=== PATIENT | female | born 1965 | race Caucasian/White ===

== ENCOUNTER 2017-09-16 03:16 | Emergency (ER) | payer MEDICARE, MEDICAID, SELFPAY ==
[2017-09-16 03:19] VITALS: BP 162/104; PULSE 81; RESP 18; TEMP 36.8; O2SAT 98; BMI 47.1
--- NOTE | 2017-09-16 03:32 | ED.VISSUMM ---
- ER Visit Summary Date of Service: 09/16/17 Chief Complaint: Right jaw pain status post tooth extraction History of Present Illness: The patient is a 52 F who presents because of pain status post extraction of the right lower third molar. The procedure was performed on September 15. Patient reports the prescription was not electronically transmitted to the pharmacy. She denies fever, chills night sweats. She complains of pain and difficulty swallowing because of pain. There is been no drooling. There is no facial swelling. No documented fever and she denies chills. She is on no immunosuppressive meds. She has no history of rheumatic fever, murmur, or SBE. Physical Examination: Vital signs remarkable for an elevated blood pressure 162/104. She appears uncomfortable. Extraction site looks normal. There is no facial swelling. Is no trismus. There is no sub-mandibular or anterior cervical lymphadenopathy. Trach is midline. There is no stridor. Heart is regular without murmur, gallop or rub. Lungs are clear to auscultation. There is no evidence of facial cellulitis. Test Results: None Emergency Department Course and Treatment: Patient received 1 oxycodone tablet to diminish her pain and she will need to contact her dentist for any additional pain medication Treatment Plan: Discharge to home and follow-up with dentist regarding pain medication Disposition: Discharged to home Impression: Pain status post right lower third molar extraction without evidence of infection This note was generated with [employer] dictation software. It may contain incorrect words, spelling, and punctuation that were not noted in review of the chart prior to signing ED Disposition - Plan for ED Patient: Disposition: Home or Assisted Living Chief Complaint: Dental Instructions: ED Post Op Pain Referrals: Care Physician,No Primary [Primary Care Provider] - Additional Instructions: Contact your dentist later this morning for any additional pain medicine.
--- NOTE | 2017-09-16 03:36 | ED.DCSUM_ITS ---
- ER Visit Summary Date of Service: 09/16/17 Chief Complaint: Right jaw pain status post tooth extraction History of Present Illness: The patient is a 52 F who presents because of pain status post extraction of the right lower third molar. The procedure was performed on September 15. Patient reports the prescription was not electronically transmitted to the pharmacy. She denies fever, chills night sweats. She complains of pain and difficulty swallowing because of pain. There is been no drooling. There is no facial swelling. No documented fever and she denies chills. She is on no immunosuppressive meds. She has no history of rheumatic fever, murmur, or SBE. Physical Examination: Vital signs remarkable for an elevated blood pressure 162/ 104. She appears uncomfortable. Extraction site looks normal. There is no facial swelling. Is no trismus. There is no sub-mandibular or anterior cervical lymphadenopathy. Trach is midline. There is no stridor. Heart is regular without murmur, gallop or rub. Lungs are clear to auscultation. There is no evidence of facial cellulitis. Test Results: None Emergency Department Course and Treatment: Patient received 1 oxycodone tablet to diminish her pain and she will need to contact her dentist for any additional pain medication Treatment Plan: Discharge to home and follow-up with dentist regarding pain medication Disposition: Discharged to home Impression: Pain status post right lower third molar extraction without evidence of infection This note was generated with [employer] dictation software. It may contain incorrect words, spelling, and punctuation that were not noted in review of the chart prior to signing ED Disposition - Plan for ED Patient: Disposition: Home or Assisted Living Chief Complaint: Dental Instructions: ED Post Op Pain Referrals: Care Physician,No Primary [Primary Care Provider] - Additional Instructions: Contact your dentist later this morning for any additional pain medicine.
[2017-09-16] MEDS: oxyCODONE 5 MG Tablet 10 MG PO (03:45)
[2017-09-16 03:46] VITALS: RESP 18
== END 2017-09-16 03:47 | disposition home or self-care (01) ==
LOC: ED 03:42
PROVIDERS: Emergency Provider Emergency Medicine
DX: R68.84 Jaw pain (principal); G89.18 Other acute postprocedural pain; Z98.818 Other dental procedure status; K21.9 Gastro-esophageal reflux disease without esophagitis; F32.9 Major depressive disorder, single episode, unspecified; F41.9 Anxiety disorder, unspecified; E66.9 Obesity, unspecified; Z68.42 Body mass index [BMI] 45.0-49.9, adult; Z79.899 Other long term (current) drug therapy
CPT/HCPCS: 99283

== ENCOUNTER 2017-10-03 14:42 | Emergency (ER) | payer MEDICARE, MEDICAID, SELFPAY ==
[2017-10-03 14:43] VITALS: BP 184/116; PULSE 94; RESP 22; TEMP 36.6; O2SAT 97; BMI 45.4
--- NOTE | 2017-10-03 14:58 | CT_ITS ---
STUDY: CT ABDOMEN AND PELVIS WITHOUT CONTRAST REASON FOR EXAM: Female, 52 years old. Certain onset right lower quadrant pain one hour prior to arrival. History stage III kidney disease. History of cholecystectomy, hysterectomy and gastric sleeve. RADIATION DOSAGE (If Supplied By Facility): CTDIvol = ( 27.69 ) mGy, DLP = ( 1501.17 ) mGycm TECHNIQUE: Transaxial images were obtained from the dome of the diaphragm to the symphysis pubis without oral contrast, and without intravenous contrast. Sagittal and coronal images were reconstructed. Individualized dose optimization techniques were used for this CT. COMPARISON: None. FINDINGS: 1 discrete linear opacity of the right lung base consistent with scarring or focal atelectasis. The visualized portions of the heart are within normal limits. Normal liver. There are surgical clips in the gallbladder fossa consistent with a prior cholecystectomy. Normal spleen. Normal pancreas. Normal bilateral adrenal glands. Moderate hydronephrosis of the right kidney and a dilated ureter to the level of a 5 x 3 mm stone of the distal ureter just above the right ureterovesicular junction. Substantial perinephric stranding. Negative for other renal or ureteral stones. Mild atrophy of the left kidney without hydronephrosis or stones. Moderate hiatal hernia. Postoperative changes consistent with gastric sleeve. Normal small intestine. Diverticulosis without evidence of acute diverticulitis. There is non-visualization of the appendix. Normal abdominal aorta. 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 Normal retroperitoneum. Normal urinary bladder. There is absence of the uterus consistent with a prior hysterectomy. Negative for pelvic mass. Normal abdominal wall. There are diffuse degenerative changes of the visualized lumbar spine. CT/Abdomen/Pelvis without Cont IMPRESSION: Moderate hydronephrosis of the right kidney secondary to a 5 x 3 mm stone of the distal right ureter just above the right ureterovesicular junction. Substantial perinephric stranding. Negative for other renal or ureteral stones. Atrophy of the left kidney without renal or ureteral stones. Unremarkable nondistended urinary bladder. 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 Electronically Signed: Renita Mock MD at 16:37 EDT , Service support ,
[2017-10-03] MEDS: HYDROmorphone 0.5 MG/0.5 ML SYRINGE IV (15:02)
[2017-10-03] MEDS: Ondansetron 4 MG/2 ML Vial IV (15:03)
[2017-10-03] MEDS: 0.9% Normal Saline 1,000 ML 250 ML IV (15:03)
[2017-10-03] MEDS: Ketorolac 30 MG/ML Syringe IV (15:03)
[2017-10-03 15:07] VITALS: BP 172/93; PULSE 86; RESP 22; O2SAT 94
--- NOTE | 2017-10-03 15:08 | ED.VISSUMM ---
- ER Visit Summary Date of Service: 10/03/17 Chief Complaint: Abdominal pain History of Present Illness: The patient is a 52 F who states that 1 hour prior to arrival she began having discomfort in the right lower quadrant. She felt like she maybe she needed to have a bowel movement and went to the bathroom and did. However after the bowel movement the patient developed a severe stabbing pain that radiated to the right flank. She stated wax and wanes. She last ate at 1300 hrs. having steak and eggs. She states that she was feeling fine up until 1 hour prior to examination. She has a history of GERD and reports chronic kidney disease stage III. She has had prior cholecystectomy and a gastric sleeve. Physical Examination: Afebrile vital signs are stable Gen: Well-nourished well-developed obese Head: Normocephalic atraumatic Eyes: Perrl EOMI ENT: TMs clear no rhinorrhea moist mucous membranes Neck: Supple no lymphadenopathy no JVD nontender CVS: Regular rate rhythm no murmurs normal S1-S2 Respiratory: No distress clear to auscultation bilaterally chest nontender Abdomen: Soft mild tenderness without guarding or rebound nondistended normal bowel sounds no masses Back: Nontender Extremity: Nontender no edema Skin: Normal color no rash diaphoretic Neuro: alert orientated ?3 CN II-XII intact normal strength sensation reflexes gait cerebellar Psych: Normal affect normal mood Test Results: CBC shows a hemoglobin 11.5 platelets are low at 483. Creatinine 1.76. Urinalysis shows some contamination 25-50 white cells 10-25 red blood cells 5-10 epithelial cells X test is negative. CT of the abdomen pelvis demonstrated a significant amount of perinephric stranding hydrant moderate hydronephrosis and a 5x3 mm distal ureteral stone. Emergency Department Course and Treatment: IV was established. Patient received fluids Toradol Dilaudid and Zofran. Her pain is significantly improved. I spoke with to help arrange follow-up. Patient was advised she may return if her pain is not controlled. I will be writing for oxycodone Zofran and Flomax. Impression: 1. Right distal ureteral stone (5 x 3 mm stone) 2. Right hydronephrosis This note was generated with [employer] dictation software. It may contain incorrect words, spelling, and punctuation that were not noted in review of the chart prior to signing ED Disposition - Plan for ED Patient: Disposition: Home or Assisted Living Chief Complaint: Flank Pain Instructions: ED Stone Renal W Colic Prescriptions: Oxycodone [Oxyir] 5 - 10 mg PO Q6H PRN PRN 4 Days #25 tab PRN Reason: Pain Ondansetron [Zofran Odt] 4 mg PO Q8H PRN PRN #10 tab PRN Reason: Nausea Tamsulosin HCl [Flomax] 0.4 mg PO QHS #7 cap Referrals: Yesi Pina MD [STAFF PHYSICIAN] - (call on wednesday to arrange follow up)
[2017-10-03 15:32] LABS: Absolute Neutrophil Count 5.5 X10^3/uL (2.0-7.7); Basophil# 0.03 X10^3/uL; Basophil% 0.4 % (0-1); Eosinophil# 0.27 X10^3/uL; Eosinophils% 3.2 % (0-5); Hematocrit 37.3 % (37-47); Hemoglobin 11.5 g/dl (12.0-15.0); Lymphocyte % 22.9 % (19-41); Mean Corp Hgb Conc 30.8 g/gl (32-36); Mean Corpuscular Hgb 23.8 pg (27.0-32.0); Mean Corpuscular Volume 77.2 fL (81-99); Mean Platelet Vol. 9.5 fl (6.2-12.0); Monocyte# 0.58 X10^3/uL; Neutrophil # 5.52 X10^3/uL (2.7-7.7); Neutrophil % 66.4 % (47-70); Platelet Count 483 K/mm3 (150-450); RBC Distribution Width CV 17.2 % (11.6-14.6); RBC Distribution Width SD 48.7 fl (35.1-43.9); Red Blood Count 4.83 M/mm3 (4.2-5.4); White Blood Count 8.3 K/mm3 (4.4-11.0)
[2017-10-03 15:33] LABS: POSITIVE COUNT NO; POSITIVE DIFFERENTIAL NO; POSITIVE MORPHOLOGY NO
[2017-10-03 15:55] LABS: Anion Gap 10 (5-15); BUN 18 mg/dL (7-18); BUN/Creat Ratio 10.2 RATIO (10-20); Calcium,Total 9.6 mg/dL (8.5-10.1); Chloride 106 mmol/L (98-107); Creatinine, Serum 1.76 mg/dL (0.55-1.02); EST Glomerular Filtration Rate 32 mL/min (>60); Est Glom Filt Rate - Afr Amer 39 mL/min (>60); Estimated Creatinine Clearance 36.77 ml/min; Glucose 118 mg/dL (74-106); Potassium 3.4 mmol/L (3.5-5.1); Sodium Level 139 mmol/L (136-145)
[2017-10-03 15:58] LABS: Color, Urine Yellow (Yellow); Glucose, Dipstick Normal (Normal); Ketone-Dipstick Negative (Negative); Leukocyte Esterase-Dipstick 100 /ul (Negative); Nitrite-Dipstick Negative (Negative); Occult Blood-Urine 150 /ul (Negative); Protein-Dipstick 30 mg/dl (Negative); Specific Gravity, Urine 1.025 (1.002-1.030); Urine Bilirubin Dipstick Negative (Negative); Urine Clarity Clear (Clear); Urine Urobilinogen Normal (Normal)
[2017-10-03 16:00] VITALS: RESP 16
[2017-10-03 16:11] LABS: Red Blood Cells-Urine 10-25 SEEN /hpf (0-5); Squamous Epithelial Cells - UA 5-10 SEEN /hpf (5-10); White Blood Cells 25-50 SEEN /hpf (0-5)
[2017-10-03 16:12] LABS: Bacteria RARE /hpf (None Seen); Hyaline Cast 0-5 SEEN /lpf (0-5); Mucous, Urine RARE /hpf (<or=2+)
[2017-10-03 16:15] LABS: Pregnancy, Serum, hCG Quali. NEGATIVE Negative (0-9 Nonpreg)
[2017-10-03 17:28] VITALS: PULSE 79; RESP 16
[2017-10-03 17:58] VITALS: BP 141/89; PULSE 85; RESP 16; O2SAT 97
--- NOTE | 2017-10-03 17:59 | ED.RN ---
REVIEWED D/C INSTRUCTIONS, FOLLOW UP CARE, PRESCRIPTIONS, AND S/S THAT WOULD WARRANT A RETURN TO THE ED WITH PT. PT VERBALIZED AN UNDERSTANDING AND DENIES FURTHER QUESTIONS FOR THIS RN. PT SKIN P/W/D, RESP EVEN AND UNLABORED, PT A&O X 3, NO DISTRESS NOTED.
[2017-10-03 18:19] VITALS: RESP 16
[2017-10-03] MEDS: oxyCODONE 5 MG Tablet PO (18:22)
[2017-10-03] MEDS: Ondansetron ODT 4 MG Tablet PO (18:26)
== END 2017-10-03 18:26 | disposition home or self-care (01) ==
PROVIDERS: Emergency Provider Emergency Medicine; Family Provider Internal Medicine; PCP Internal Medicine
DX: N13.2 Hydronephrosis with renal and ureteral calculous obstruction (principal); N18.3 Chronic kidney disease, stage 3 (moderate); K21.9 Gastro-esophageal reflux disease without esophagitis; F32.9 Major depressive disorder, single episode, unspecified; F41.9 Anxiety disorder, unspecified; Z79.899 Other long term (current) drug therapy
CPT/HCPCS: 74176; 80048; 81001; 84703; 85025; 87086; 96361; 96365; 96375; 99283; J7030; A4216; J0696; J2405

== ENCOUNTER 2017-10-19 08:40 | Day surgery (SDC) | payer MEDICARE, MEDICAID, SELFPAY ==
[2017-10-19] VITALS (7 sets, daily range): BP systolic 103–125; BP diastolic 70–84; PULSE 76–93; RESP 14–96; TEMP 36.3–36.7; O2SAT 91–100; BMI 45.8
--- NOTE | 2017-10-19 09:40 | CALC_PTH ---
PATIENT: JACOBY ESCALERA LOC: [facility] – [place] U#:[id number] AGE/SX: 52/F ROOM: RE10/19/[address]: Dr. Yesi Pina MD : 1965 BED: DIS: 10/19/2017 SPEC #: [id number] RECD: 10/19/17 12:03 STATUS: DRISS KRISTEN #: [id number] MARINO: 10/19/17 09:[address]: Yesi Pina DEPT: SURGICAL PATHOLOGY RECD BY: Magdi Hatfield ENTERED: 10/19/17 12:12 SP TYPE: Calculi OTHR DR: Dr. Bret Salomon MD Tissues: CALCULI Procedures: Surgery Specimen Level I HEADER OPERATION: Cysto, ureteroscopy, retro, laser, stent PRE-OP DIAGNOSIS: Calculus of ureter TISSUE SUBMITTED: Renal calculus GROSS DIAGNOSIS Fragments of stone, clinically calculus of ureter submitted for analysis. SJ:jerrod 10/19/17 COMMENT The calculus is submitted in its entirety for chemical stone analysis. The results from this study will be reported separately. GROSS DESCRIPTION Received in fixative is one container labeled with the patient's name and designated renal calculi. The specimen consists of two fragments of cain stone each measuring 0.1 cm in greatest dimension. The entire specimen is submitted for stone analysis. / SJ:jerrod 10/19/17 CPT: 87314
--- NOTE | 2017-10-19 11:07 | PCM.DC.URO ---
Discharge Diet: No Restrictions Discharge Activity: Return to Normal Activity, May not drive while taking narcotic pain medications. Call your doctor if you observe: Fever of 101 or Higher, Inability to urinate, Inability to have a bowel movement, Shortness of breath, Chest pain, Calf discomfort, Uncontrolled pain Additional Dressing/Incision Instructions:: pull stent out using string on morning. Allergies/Adverse Reactions: Allergies Iodinated Contrast- Oral and IV Dye [DYEE] Allergy (Verified 10/12/17 10:03) Rash iron Adverse Reaction (Verified 10/12/17 10:03) Other ABD PAIN morphine Adverse Reaction (Verified 10/12/17 10:03) Rash Medications to take at Discharge Dextroamphetamine/Amphetamine [Adderall 20 mg Tablet] 20 mg PO DAILY 03/06/16 Venlafaxine XR [Effexor Xr] 75 mg PO DAILY 03/06/16 buPROPion XL [Wellbutrin Xl] 150 mg PO DAILY 03/06/16 buPROPion XL [Wellbutrin Xl] 300 mg PO DAILY 03/06/16 Cholecalciferol (Vitamin D3) [Vitamin D3] 2,000 unit PO DAILY 09/16/17 Cyanocobalamin [Vitamin B12] 1,000 mcg PO DAILY@0800 09/16/17 Omeprazole [Prilosec] 20 mg PO DAILY 09/16/17 Zolpidem Tartrate [Ambien] 5 mg PO QHS PRN PRN 10/03/17 Calcitriol [Rocaltrol] 0.5 mcg PO DAILY 10/12/17 Cetirizine HCl [Allergy Relief] 10 mg PO DAILY 10/12/17 Magnesium 250 mg PO DAILY 10/12/17 Spironolactone [Aldactone] 100 mg PO DAILY 10/12/17 Cephalexin [Keflex] 500 mg PO Q12 3 Days #6 cap 10/19/17 Oxycodone HCl/Acetaminophen [Percocet 5/325] 2 tab PO Q6H PRN PRN 2 Days #10 tab 10/19/17 The following prescriptions were given: Oxycodone HCl/Acetaminophen [Percocet 5/325] 2 tab PO Q6H PRN PRN 2 Days #10 tab PRN Reason: Pain Cephalexin [Keflex] 500 mg PO Q12 3 Days #6 cap Primary Care Physician: Bret Salomon MD [Primary Care Provider] - Test Results: Test results from this visit will be discussed in further detail at your follow-up appointment, if applicable. Please Follow Up With: eYsi Pina MD When: in 2-3 weeks, call for appt
--- NOTE | 2017-10-19 11:10 | PCM.IMDPSTOP ---
Immediate Post-Op Note Date of Procedure: 10/19/17 Primary Surgeon/Physician: Yesi Pina MD personal care attendant: Yesi Pina Pre-Operative Diagnosis: right ureteral stone Post-Operative Diagnosis: same Surgery/Procedure Performed:: cystoscopy, right ureteroscopy, laser lithotripsy, stone basket extraction, right ureteral stent insertion Description of Surgical Findings:: stone seen at the UO, lasered and removed. no complications. 6 x 24cm stent left with string. Estimated Blood Loss: 2cc Specimen's removed: stone fragment Type of Anesthesia:: General - Admit VTE Documentation VTE Present on Admission: Yes VTE Mechan Device Prophylaxis: SCD's VTE Pharm Prophylaxis ordered?: No Reason prophylaxis not ordered:: Treatment Not Indicated
--- NOTE | 2017-10-19 11:19 | PCM.OPRPT ---
Problem List (1) Ureteral calculus Status: Acute Report of Operation Date of Procedure: 10/19/17 Pre-Operative Diagnosis: right ureteral stone Post-Operative Diagnosis: same Surgery/Procedure Performed:: cystoscopy, right ureteroscopy, laser lithotripsy, stone basket extraction, right ureteral stent insertion Description of Surgical Findings:: stone seen at the UO, lasered and removed. no complications. 6 x 24cm stent left with string. spring production supervisor: Yesi Pina Type of Anesthesia:: General Special Medications: ancef 3 gm Specimen's removed: stone fragment Estimated Blood Loss (mL): 2cc Description of Procedure: The patient is a 52-year-old female who developed a right distal ureteral calculus was seen in the office for definitive treatment. After discussing all the risks benefits and alternatives she agreed to proceed with surgical intervention. The patient was taken to the operating room placed on the operating room table anesthesia monitored the head neck area IV access and vital signs throughout the case. Once anesthesia was a probably administered she was placed into dorsal lithotomy position was prepped and draped in usual sterile fashion. A cystourethroscopy was then performed revealing no evidence of tumor mass or bladder mucosal abnormality. The right ureteral orifice was clearly identified and intubated with a 0.035 Glidewire. Using the additional half of a 0.025 guidewire access was obtained to the distal ureteral orifice and the stone was clearly visible approximately 6 mm in size. It was then lasered using a holmium laser fiber into small fragments which were then stone basket retrieved and sent for analysis. Ureteroscopy continued to the proximal ureter were no further stone fragments were identified. At this time using the 0.035 Glidewire a 6 x 24 cm double-J stent was placed with curling achieved in the right renal pelvis and in the urinary bladder. The string was left intact and was secured to the right inner thigh using Steri-Strips. She was awakened and taken to recovery room in good condition. There were no complications during this procedure. Grafts/Implants Used: 6x24cm double J stent - Complications none - Admit VTE Documentation VTE Present on Admission: Yes VTE Mechan Device Prophylaxis: SCD's VTE Pharm Prophylaxis ordered?: No Reason prophylaxis not ordered:: Treatment Not Indicated
[2017-10-19] MEDS: Acetaminophen 325 MG Tablet PO (12:59)
[2017-10-19] MEDS: oxyCODONE 5 MG Tablet PO (12:59)
[2017-10-27 00:08] LABS: Ca Oxalate, Dihydrate 77 % (.); Ca Oxalate, Monohydrate 20 % (.)
[2017-10-27 11:34] LABS: Comment Note: (.)
== END 2017-10-19 13:24 | disposition home or self-care (01) ==
LOC: SDC 08:42 → AC 08:43
PROVIDERS: Family Provider Internal Medicine; PCP Internal Medicine; Visit Provider Urology
PROC: 0TJ98ZZ Inspection of Ureter, Via Natural or Artificial Opening Endoscopic (ICD-10-PCS; CPT 52352; principal; 2017-10-19 09:30)
DX: N13.2 Hydronephrosis with renal and ureteral calculous obstruction (principal); N18.3 Chronic kidney disease, stage 3 (moderate); K21.9 Gastro-esophageal reflux disease without esophagitis; Z98.84 Bariatric surgery status; Z79.899 Other long term (current) drug therapy
CPT/HCPCS: 52356; 76000; 82360; 88300; J7120; C1769; C2617; J2405

== ENCOUNTER 2018-02-22 21:21 | Emergency (ER) | payer MEDICARE, MEDICAID, SELFPAY ==
[2018-02-22 21:23] VITALS: BP 109/65; PULSE 101; RESP 16; TEMP 36.9; O2SAT 97; BMI 49.1
--- NOTE | 2018-02-22 22:55 | ED.VISSUMM ---
- ER Visit Summary Date of Service: 02/22/18 Chief Complaint: Right hip pain, right leg pain History of Present Illness: The patient is a 52 [id number] of the right knee who follows with Dr. Cantor presents with right low back pain into her right hip and posterior leg. The patient's been having symptoms for the past few days. She states that she is trying to get any replacement, but she was told she has to lose weight first. She states because of her pain, she has been walking differently. She began have a burning pain from her low back that goes down her leg. She denies any fevers or chills. She denies any trouble urinating or moving her bowels. She denies any weakness. She did go to urgent care and was given anti-inflammatories and antispasmodics with little improvement. Physical Examination: Afebrile, vitals unremarkable. Well-appearing female no acute distress. Head is normocephalic, atraumatic. Pupil's equal round reactive, extraocular muscles intact. Neck supple. Heart regular rate and rhythm. Lungs clear, chest nontender. Abdomen soft, nontender, nondistended. No pulsatile mass. Patient has paraspinal tenderness in the lumbar area, but no bony tenderness. Straight leg raise is negative bilaterally. 2+ symmetric lower extremity pulses. 2+ reflexes. No clonus. No weakness of dorsiflexion, plantar flexion, or extensor hallucis longus bilaterally. Test Results: [] Emergency Department Course and Treatment: Clinically, I do feel that this is more likely radicular pain. Her pulses are normal. Reflexes are normal. Her gait is steady. She has no red flag symptoms. I am going to treat the patient with Medrol and a short course of analgesics. She is comfortable with this plan of care. She will be discharged home peer Treatment Plan: [] Disposition: Discharge Impression: Acute lumbar radiculopathy This note was generated with [employer] dictation software. It may contain incorrect words, spelling, and punctuation that were not noted in review of the chart prior to signing ED Disposition - Plan for ED Patient: Chief Complaint: Lower Extremity Injury Instructions: ED Sciatica Prescriptions: Hydrocodone Bitart/Apap 5-325 [[place] 5MG-325MG] 1 tab PO Q4H PRN PRN 2 Days #10 tab PRN Reason: Pain MethylPREDNISolone DosePak [Medrol DosePak] 4 mg PO UD #1 box Referrals: Bret Salomon MD [Primary Care Provider] -
--- NOTE | 2018-02-22 22:58 | ED.DCSUM_ITS ---
- ER Visit Summary Date of Service: 02/22/18 Chief Complaint: Right hip pain, right leg pain History of Present Illness: The patient is a 52 [place] arthritis of the right knee who follows with Dr. Cantor presents with right low back pain into her right hip and posterior leg. The patient's been having symptoms for the past few days. She states that she is trying to get any replacement, but she was told she has to lose weight first. She states because of her pain, she has been walking differently. She began have a burning pain from her low back that goes down her leg. She denies any fevers or chills. She denies any trouble urinating or moving her bowels. She denies any weakness. She did go to urgent care and was given anti-inflammatories and antispasmodics with little improvement. Physical Examination: Afebrile, vitals unremarkable. Well-appearing female no acute distress. Head is normocephalic, atraumatic. Pupil's equal round reactive, extraocular muscles intact. Neck supple. Heart regular rate and rhythm. Lungs clear, chest nontender. Abdomen soft, nontender, nondistended. No pulsatile mass. Patient has paraspinal tenderness in the lumbar area, but no bony tenderness. Straight leg raise is negative bilaterally. 2+ symmetric lo wer extremity pulses. 2+ reflexes. No clonus. No weakness of dorsiflexion, plantar flexion, or extensor hallucis longus bilaterally. Test Results: [] Emergency Department Course and Treatment: Clinically, I do feel that this is more likely radicular pain. Her pulses are normal. Reflexes are normal. Her gait is steady. She has no red flag symptoms. I am going to treat the patient with Medrol and a short course of analgesics. She is comfortable with this plan of care. She will be discharged home peer Treatment Plan: [] Disposition: Discharge Impression: Acute lumbar radiculopathy This note was generated with [employer] dictation software. It may contain incorrect words, spelling, and punctuation that were not noted in review of the chart prior to signing ED Disposition - Plan for ED Patient: Chief Complaint: Lower Extremity Injury Instructions: ED Sciatica Prescriptions: Hydrocodone Bitart/Apap 5-325 [[place] 5MG-325MG] 1 tab PO Q4H PRN PRN 2 Days #10 tab PRN Reason: Pain MethylPREDNISolone DosePak [Medrol DosePak] 4 mg PO UD #1 box Referrals: Bret Salomon MD [Primary Care Provider] -
[2018-02-22] MEDS: predniSONE 20 MG Tablet 40 MG PO (23:05)
[2018-02-22] MEDS: HYDROcodone Bitartrate/Apap 5/325 Tablet PO (23:05)
[2018-02-22 23:12] VITALS: PULSE 98; RESP 16
--- OUTSIDE RECORDS SUMMARY | 2018-05-27 06:32 | XMS RPT_ITS ---
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 Status: with no children REVIEW OF SYSTEMS: Constitutional: (-) Fever (-) Night Sweats (+) Weight Gain (-) Weight Loss (+) Fatigue Cardiovascular: (-) Chest Pain (-) Palpitations (-) Lightheadedness (-) Swelling of Ankles (-) Hx Heart Surgery Respiratory: (+) Shortness of Breath (-) Cough (-) Wheezing (-) Snoring Gastrointestinal: (-) Incontinence (-) Abdominal Pain (-) Diarrhea (-) Constipation (-) Nausea/Vomiting (-) Heart Burn Endocrine: (+) Thyroid Disorder (-) Diabetes Hematologic: (-) Prolonged Bleeding (+) Easy Bruising Genitourinary: (-) Incontinence (+) Frequency (-) Urinary Urgency Skin: (-) Rashes (-) Itching (-) Other Lesions Neurologic: (+) Headache (-) Double Vision (-) Confusion (-) Paralysis (-) Vertigo (-) Syncope Psychiatric: (+) Depression (+) Anxiety (-) Delusions (-) Hallucinations (-) Suicidal Thoughts Nallely Merino MA OAS Report reviewed: Yes Narcotic Agreement reviewed and signed?: N/A Baseline Urine Toxicology obtained: N/A Urine Panel: No results found for: UQCANN, UQBNZL, KMT1HPL, UQAMPH, UQMAMP, UQBUPRE, UQNORBUP, UQMTHD, UQEDDP, UQTRAM, UQDTRM, UQFNTL, UQNFTL, UQCODE, UQMORP, UQDCDN, UQHCOD, UQOXYC, UQHMOR, UQOXYM, UQCREA, UQPH, UQSPGR, UQOXID, UQSPQ The pain panel was N/A I have reviewed, confirmed and edited the preliminary information with the patient: OBJECTIVE: PHYSICAL EXAMINATION: Pulse 117 Wt 316 lb (143.3kg) SpO2 97% LMP 02/01/2007 Performed in conjunction with observation. The patient was alert and oriented x3. The patient was in no acute distress. Lungs: Clear to auscultation. CVR: Regular Rate. Neck: Supple. The range of motion was intact. No focal tenderness. Spurling's: negative Back: Range of motion of the trunk was limited due to truncal obesity. SLR: negative Facet Loading: equivocal with axial loading and extension. SI joint: right PSIS tenderness. Positive Sacral thrust. equivocal Ag's sign. Extremities: no reported edema or erythema. Motor: 5/5 and symmetric Sensory: intact Gait: antalgic. Medical record and diagnostic tests reviewed for today's visit: The [facility] EMR was reviewed during the visit IMAGING STUDIES: No new imaging studies were reviewed during this office visit. ASSESSMENT: (M54.9, G89.29) Chronic back pain greater than 3 months duration (primary encounter diagnosis) (M25.551) Right hip pain (M51.36) DDD (degenerative disc disease), lumbar PLAN: 1. Xray of lumbar spine and right hip 2. No interventional procedures indicated 3. A trial of cox2 inhibitor. History of gastric bypass in 2006. Signed Prescriptions Disp Refills celecoxib (CELEBREX) 100 mg capsule 60 capsule 1 Sig: Take 1 capsule by mouth twice daily. 4. Counseled patient regarding the importance of activity modification and exercise. 5. Follow up:6 months. The above plan and management options were discussed with patient. The patient is in agreement with the above and verbalized understanding. I have discussed and confirmed the above treatment plan with the patient. and I have reviewed the nurses notes and I am aware of the family/social history. Jose D Willis MD March 28, 2018 cc: Bret Jay MD [phone] [facility] [id number] Fax: Results of consultation to be transmitted via electronic medical record for those providers who practice within [facility] or with access to [facility] via MD Connect, or via letter. XR CHEST 2V FRONTAL/LAT Observed: 03/02/2018 Status: F Source: [place] 3:[address] [facility] REPOSITORY * * *Final Report* * * DATE OF EXAM: Mar 02 2018 3:05PM WOX [id number] - XR CHEST 2V FRONTAL/LAT / PROCEDURE REASON: multiple diagnoses * * * * Physician Interpretation * * * * EXAMINATION: CHEST RADIOGRAPH (2 VIEW FRONTAL and LATERAL) CLINICAL HISTORY: Cough Adventitious breath sounds MQ: XC2_5 Comparison: 06/07/17 RESULT: Lines, tubes, and devices: None. Lungs and pleura: The trachea is normal in position. There is a surgical clip at the base of the right neck. There is stable blunting of the right costophrenic angle.. No large pleural effusion, parenchymal consolidation or vascular congestion.. Cardiomediastinal silhouette: Stable cardiomediastinal silhouette. Other: . Mild degenerative change of the thoracic spine IMPRESSION: No acute infiltrate. Paint Grinder: PSCB Transcribe Date/Time: Mar 02 2018 3:26P Dictated by : DAYANARA VELÁZQUEZ MD This examination was interpreted and the report reviewed and electronically signed by: DAYANARA VELÁZQUEZ MD on Mar 02 2018 3:31PM EST [id number] Observed: 03/02/2018 Status: COMPLETED Source: [place] 2:49 PM [facility] REPOSITORY HNO ID: [id number] Author: Cecilia Bryan Service: (none) Author Type: (none) Type: Progress Notes Filed: 03/02/2018 3:05 PM Note Text: Radiology Service Progress Note PATIENT NAME: Thuy White DATE OF SERVICE: March 02, 2018 TIME: 2:49 PM PATIENT IDENTITY VERIFICATION COMPLETED USING TWO (2) METHODS: Patient confirmed name verbally and Date of . PATIENT GENDER DATA: Female. status: : No status: NO. PATIENT RELEVANT IMPLANT DATA REVIEWED: Not Applicable RADIOLOGY DEPARTMENT: General X-ray: Exam(s) Completed: Chest X-Ray PERIPHERAL IV DATA: Not applicable SIGNED BY: Cecilia Bryan March 02, 2018 2:49 PM PROGRESS Observed: 03/02/2018 Status: COMPLETED Source: [place] 2:35 PM [facility] REPOSITORY HNO ID: [id number] Author: Nallely Garcia Service: (none) Author Type: Nurse Practitioner Type: Progress Notes Filed: 03/02/2018 3:40 PM Note Text: Subjective The history is provided by the patient. No speech/language therapist was used. HPI Thuy White is a 52 year old female who presents today for CC of cough, headache, shortness of breath, chest congestion, and wheezing. She has used albuterol with short term relief. She states it is worse at night, no known sick contacts. 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 BP 110/70 Pulse 92 Temp 36.7 ?C (98 ?F) (Tympanic) Resp 18 Wt (!) 138.1 kg (304 lb 6.4 oz) LMP 02/01/2007 SpO2 94% BMI 49.13 kg/m? 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 - Esophageal reflux 2005 - Essential hypertension 11/26/2017 - Fracture of right clavicle 11/15/2015 - Generalized anxiety disorder 2003 with panic attacks - Herpes genitalis - Hypoparathyroidism ([facility]) parathyroid implant Left forearm - IFG (impaired fasting glucose) 05/08/2014 - Impaired fasting glucose - Insomnia 03/16/2013 - Iron deficiency anemia - Irritable bowel syndrome 1997 diarrhea prone, dairy exacerbates - MEN 1 (multiple endocrine neoplasia) ([facility]) [facility] - Morbid obesity ([facility]) 2006 s/p sleeve Dr Dale - Obstructive sleep apnea fair complaince with CPAP - Primary hyperparathyroidism ([facility]) 03/09 gland parathyroidectomy - Renal insufficiency - Sternoclavicular joint subluxation 07/16/2016 I have confirmed and edited as necessary, the [facility] Review of Systems Constitutional: Positive for fever (tactile) and malaise/fatigue. Negative for chills. HENT: Positive for congestion (chest ). Negative for ear pain, sinus pain and sore throat. Respiratory: Positive for cough, shortness of breath and wheezing. Negative for sputum production. Musculoskeletal: Negative for myalgias. Neurological: Negative for headaches. Objective Physical Exam Constitutional: She is well-developed, well-nourished, and in no distress. HENT: Head: Normocephalic and atraumatic. Right Ear: Tympanic membrane, external ear and ear canal normal. Left Ear: Tympanic membrane and ear canal normal. Nose: Mucosal edema and rhinorrhea present. Mouth/Throat: Uvula is midline and mucous membranes are normal. Posterior oropharyngeal erythema present. No oropharyngeal exudate, posterior oropharyngeal edema or tonsillar abscesses. Pulmonary/Chest: Effort normal. She has no decreased breath sounds. She has wheezes. She has no rhonchi. She has rales. A dry cough was noted during this encounter. Talking in full sentences. Handling secretions without drooling. Lips and nailbeds are pink without cyanosis. Albuterol nebulizer treatment done, improvement (no wheezing) and increase in breath sounds, and increase in PO2 95-96%. Lymphadenopathy: Head (right side): No submental, no submandibular and no tonsillar adenopathy present. Head (left side): No submental, no submandibular and no tonsillar adenopathy present. She has no cervical adenopathy. Neurological: She is alert. Skin: Skin is warm and dry. Psychiatric: Affect normal. Nursing note and vitals reviewed. ASSESSMENT/PLAN: 1. Cough - ICD9: 786.2, ICD10: R05 (primary diagnosis) - appears to be viral uri with cough Rest, increase water intake Motrin or Tylenol as needed for fever or pain. Salt water gargles, chloraseptic spray or lozenges as needed for sore throat. Nasal spray as needed Cool mist humidifier at night A cold normally lasts 7-10 days. If your symptoms are lasting longer, develop fever, or worsening by that time instead of improving then return to clinic or follow up with PCP for re-evaluation. Tylenol (generic acetaminophen) 500 mg-2 tabs every 8 hrs. as needed for fever and aches Ibuprofen 600 mg (3-200mg tablets) every 6 hours -Sudafed (generic is fine), behind the counter, 2x30 mg tabs twice daily as needed for congestion -Mucinex (generic is fine) 1200 mg twice daily to help with cough and to thin out mucus -http://www.choosingwisely.org/patient-resources/antibiotics/. This link shares information about when antibiotics may help and when they may not. - XR CHEST 2V FRONTAL/LAT - interpreted by DAYANARA VELÁZQUEZ MD IMPRESSION: No acute infiltrate. RESULT: Lines, tubes, and devices: ?None. Lungs and pleura: ?The trachea is normal in position. ?There is a surgical clip at the base of the right neck. ?There is stable blunting of the right costophrenic angle.. No large pleural effusion, parenchymal consolidation or vascular congestion.. Cardiomediastinal silhouette: ?Stable cardiomediastinal silhouette. Other: ?. ?Mild degenerative change of the thoracic spine - BENZONATATE 200 MG CAPSULE Tessalon Perles as prescribed for coughing, do not combine this with other cough and cold medications 2. Adventitious breath sounds - ICD9: 786.00, ICD10: R06.89 Improved with albuterol Continue inhaler every 4-6 hours as needed - XR CHEST 2V FRONTAL/LAT - ALBUTEROL SULFATE 2.5 MG/3 ML (0.083 %) SOLUTION FOR NEBULIZATION - ALBUTEROL SULFATE HFA 90 MCG/ACTUATION AEROSOL INHALER * Seek medical care immediately, call 911, go to ER if you have chest pain, difficulty breathing, shortness of breath, inability to swallow. Diagnosis and treatment plan were discussed and questions were answered to the patient's satisfaction. Pt acknowledged understanding of concepts and follow up plan. Specific signs and symptoms that would indicate the need for higher level of care were discussed in detail warranting prompt ER evaluation. Nallely Garcia APRN.CNP CNOV Observed: 03/02/2018 Status: COMPLETED Source: [place] 2:15 PM [facility] REPOSITORY Office Visit (WSTR) THUY WHITE ([id number]) 1965 F [place] Date Time Provider Department 03/02/18 2:15 PM NALLELY GARCIA (VANDA) WSTR During your visit today, we recorded the following information about you: Temperature Pulse Respiration Blood pressure 98 degrees 92/minute 18/minute 110/70 Weight 138.1 kg Nallely Garcia APRN.CNP 03/02/2018 3:40 PM Signed Subjective The history is provided by the patient. No speech/language therapist was used. ROSY Thuy White is a 52 year old female who presents today for CC of cough, headache, shortness of breath, chest congestion, and wheezing. She has used albuterol with short term relief. She states it is worse at night, no known sick contacts. 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 BP 110/70 Pulse 92 Temp 36.7 ?C (98 ?F) (Tympanic) Resp 18 Wt (!) 138.1 kg (304 lb 6.4 oz) LMP 02/01/2007 SpO2 94% BMI 49.13 kg/m? 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 - Esophageal reflux 2005 - Essential hypertension 11/26/2017 - Fracture of right clavicle 11/15/2015 - Generalized anxiety disorder 2003 with panic attacks - Herpes genitalis - Hypoparathyroidism ([facility]) parathyroid implant Left forearm - IFG (impaired fasting glucose) 05/08/2014 - Impaired fasting glucose - Insomnia 03/16/2013 - Iron deficiency anemia - Irritable bowel syndrome 1997 diarrhea prone, dairy exacerbates - MEN 1 (multiple endocrine neoplasia) ([facility]) Dr Solorzano [facility] - Morbid obesity ([facility]) 2006 s/p sleeve Dr Dale - Obstructive sleep apnea fair complaince with CPAP - Primary hyperparathyroidism ([facility]) 03/09 gland parathyroidectomy - Renal insufficiency - Sternoclavicular joint subluxation 07/16/2016 I have confirmed and edited as necessary, the [facility] Review of Systems Constitutional: Positive for fever (tactile) and malaise/fatigue. Negative for chills. HENT: Positive for congestion (chest ). Negative for ear pain, sinus pain and sore throat. Respiratory: Positive for cough, shortness of breath and wheezing. Negative for sputum production. Musculoskeletal: Negative for myalgias. Neurological: Negative for headaches. Objective Physical Exam Constitutional: She is well-developed, well-nourished, and in no distress. HENT: Head: Normocephalic and atraumatic. Right Ear: Tympanic membrane, external ear and ear canal normal. Left Ear: Tympanic membrane and ear canal normal. Nose: Mucosal edema and rhinorrhea present. Mouth/Throat: Uvula is midline and mucous membranes are normal. Posterior oropharyngeal erythema present. No oropharyngeal exudate, posterior oropharyngeal edema or tonsillar abscesses. Pulmonary/Chest: Effort normal. She has no decreased breath sounds. She has wheezes. She has no rhonchi. She has rales. A dry cough was noted during this encounter. Talking in full sentences. Handling secretions without drooling. Lips and nailbeds are pink without cyanosis. Albuterol nebulizer treatment done, improvement (no wheezing) and increase in breath sounds, and increase in PO2 95-96%. Lymphadenopathy: Head (right side): No submental, no submandibular and no tonsillar adenopathy present. Head (left side): No submental, no submandibular and no tonsillar adenopathy present. She has no cervical adenopathy. Neurological: She is alert. Skin: Skin is warm and dry. Psychiatric: Affect normal. Nursing note and vitals reviewed. ASSESSMENT/PLAN: 1. Cough - ICD9: 786.2, ICD10: R05 (primary diagnosis) - appears to be viral uri with cough Rest, increase water intake Motrin or Tylenol as needed for fever or pain. Salt water gargles, chloraseptic spray or lozenges as needed for sore throat. Nasal spray as needed Cool mist humidifier at night A cold normally lasts 7-10 days. If your symptoms are lasting longer, develop fever, or worsening by that time instead of improving then return to clinic or follow up with PCP for re-evaluation. Tylenol (generic acetaminophen) 500 mg-2 tabs every 8 hrs. as needed for fever and aches Ibuprofen 600 mg (3-200mg tablets) every 6 hours -Sudafed (generic is fine), behind the counter, 2x30 mg tabs twice daily as needed for congestion -Mucinex (generic is fine) 1200 mg twice daily to help with cough and to thin out mucus -http://www.choosingwisely.org/patient-resources/antibiotics/. This link shares information about when antibiotics may help and when they may not. - XR CHEST 2V FRONTAL/LAT - interpreted by DAYANARA VELÁZQUEZ MD IMPRESSION: No acute infiltrate. RESULT: Lines, tubes, and devices: ?None. Lungs and pleura: ?The trachea is normal in position. ?There is a surgical clip at the base of the right neck. ?There is stable blunting of the right costophrenic angle.. No large pleural effusion, parenchymal consolidation or vascular congestion.. Cardiomediastinal silhouette: ?Stable cardiomediastinal silhouette. Other: ?. ?Mild degenerative change of the thoracic spine - BENZONATATE 200 MG CAPSULE Ruben Hawthorne as prescribed for coughing, do not combine this with other cough and cold medications 2. Adventitious breath sounds - ICD9: 786.00, ICD10: R06.89 Improved with albuterol Continue inhaler every 4-6 hours as needed - XR CHEST 2V FRONTAL/LAT - ALBUTEROL SULFATE 2.5 MG/3 ML (0.083 %) SOLUTION FOR NEBULIZATION - ALBUTEROL SULFATE HFA 90 MCG/ACTUATION AEROSOL INHALER * Seek medical care immediately, call 911, go to ER if you have chest pain, difficulty breathing, shortness of breath, inability to swallow. Diagnosis and treatment plan were discussed and questions were answered to the patient's satisfaction. Pt acknowledged understanding of concepts and follow up plan. Specific signs and symptoms that would indicate the need for higher level of care were discussed in detail warranting prompt ER evaluation. Nallely Garcia APRN.VANDA Garcia APRN.CNP 03/02/2018 3:28 PM Signed ASSESSMENT/PLAN: 1. Cough - ICD9: 786.2, ICD10: R05 (primary diagnosis) Rest, increase water intake Motrin or Tylenol as needed for fever or pain. Salt water gargles, chloraseptic spray or lozenges as needed for sore throat. Nasal spray as needed Cool mist humidifier at night A cold normally lasts 7-10 days. If your symptoms are lasting longer, develop fever, or worsening by that time instead of improving then return to clinic or follow up with PCP for re-evaluation. Tylenol (generic acetaminophen) 500 mg-2 tabs every 8 hrs. as needed for fever and aches Ibuprofen 600 mg (3-200mg tablets) every 6 hours -Sudafed (generic is fine), behind the counter, 2x30 mg tabs twice daily as needed for congestion -Mucinex (generic is fine) 1200 mg twice daily to help with cough and to thin out mucus -http://www.choosingwisely.org/patient-resources/antibiotics/. This link shares information about when antibiotics may help and when they may not. - XR CHEST 2V FRONTAL/LAT - BENZONATATE 200 MG CAPSULE Tessalon Perles as prescribed for coughing, do not combine this with other cough and cold medications 2. Adventitious breath sounds - ICD9: 786.00, ICD10: R06.89 Improved with albuterol Continue inhaler every 4-6 hours as needed - XR CHEST 2V FRONTAL/LAT - ALBUTEROL SULFATE 2.5 MG/3 ML (0.083 %) SOLUTION FOR NEBULIZATION - ALBUTEROL SULFATE HFA 90 MCG/ACTUATION AEROSOL INHALER * Seek medical care immediately, call 911, go to ER if you have chest pain, difficulty breathing, shortness of breath, inability to swallow. Denise Melvin LPN 03/02/2018 3:30 PM Signed 2.5 solution aerosol treatment given per doctor's orders. Prior to treatment O2 Sat is 94%. Treatment completed. O2 sat is 95%. Tolerated well.Denise Melvin LPN Referring Provider: SELF [[id number]] Allergies As of Date: 03/02/2018 Noted Allergy Reaction CONTRAST DYE 10/22/2007 2 - Rash FERROUS GLUCONATE 06/14/2012 8 - GI Upset Comments: Nausea MORPHINE 05/14/2005 2 - Rash OXYCONTIN (OXYCODONE HCL) 01/07/2007 2 - Rash 7 - Swelling Comments: Rash, red and swollen eyes, facial swelling PROPRANOLOL 04/02/2017 9 - Itching Date Reviewed: 03/02/2018 [facility] Jose - Fully Assessed Reason for Visit: Cough [28] Cmt: cough,chest congestion,wheezing and some SOB x 1 week Headache [52] Cmt: x 1 week Primary Visit Diagnosis:Cough [R05] Other Visit Diagnosis:Adventitious breath sounds [R06.89] Order(s):XR CHEST 2V FRONTAL/LAT [[id number]] Order #: [id number]. #:[id number] [] albuterol 2.5 mg /3 mL (0.083 %) 2.5 mg (PROVENTIL)Disp: Rfl: albuterol HFA (PROAIR HFA) 90 mcg/actuation inhalerInhale 2 Puffs as instructed every 4 hours as needed.Disp: 1 InhalerRfl: 0 Benzonatate 200 mg capsuleTake 1 capsule by mouth three times daily as needed.Disp: 30 capsuleRfl: 0 Prescriptions as of 03/02/2018 Sig: ALBUTEROL SULFATE HFA 90 MCG/* Inhale 2 Puffs as instructed * ALPRAZOLAM 0.5 MG TABLET Take 1 tablet by mouth daily * DEXTROAMPHETAMINE-AMPHETAMINE* Take 1 capsule by mouth twice* ARIPIPRAZOLE 2 MG TABLET Take 2 mg by mouth once daily. BUPROPION XL 150 MG TAB Take 1 tablet by mouth once d* BUPROPION XL 300 MG 24 HR TAB Take 1 tablet by mouth once d* CALCITRIOL 0.5 MCG CAPSULE Take 3 capsules by mouth once* CETIRIZINE 10 MG TABLET take 1 tablet by mouth once d* CHOLECALCIFEROL (VITAMIN D3) * Take 2,000 Units by mouth onc* CLOTRIMAZOLE 1 % TOPICAL CREAM as needed. CYANOCOBALAMIN (VIT B-12) 1,0* Take 1 tablet by mouth once d* CYCLOBENZAPRINE 10 MG TABLET Take 1 tablet by mouth three * FLUTICASONE 50 MCG/ACTUATION * instill 1 spray into each nos* GABAPENTIN 100 MG CAPSULE Take 1 capsule by mouth three* MAGNESIUM CITRATE ORAL Take 1 tablet by mouth once d* MAGNESIUM OXIDE 400 MG (241.3* Take 1 tablet by mouth once d* MECLIZINE 25 MG TABLET Take 1 tablet by mouth three * OMEPRAZOLE 20 MG CAPSULE,VANE* Take 1 capsule by mouth once * SPIRONOLACTONE 100 MG TABLET Take 1 tablet by mouth once d* VENLAFAXINE 75 MG TABLET Take 2 tablets by mouth once * ZOLPIDEM 5 MG TABLET Take 5 mg by mouth daily at b* ALBUTEROL SULFATE HFA 90 MCG/* Inhale 2 Puffs as instructed * BENZONATATE 200 MG CAPSULE Take 1 capsule by mouth three* COMPOUNDED PRESCRIPTION Tums chewable gummies (470 mg* Problem List As Of Date 03/02/2018 Noted Resolved PRIMARY HYPERPARATHYROIDISM [E21.0] INVALID FOR*01/07/2007 Dysmenorrhea [N94.6] 02/25/2009 Irregular Menstrual Cycle [N92.6] 02/25/2009 More... Depression [F32.9] More... 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 Complex Endometrial Hyperplasia without Atypia *INVALID FOR*02/25/2009 More... LENO (generalized anxiety disorder) [F41.1] INVALID FOR* Eating disorder NEC INVALID FOR*04/11/2014 Hirsutism [L68.0] INVALID FOR*04/11/2014 Vitamin B12 deficiency [E53.8] INVALID FOR* Onychia and paronychia of toe [L03.039] INVALID FOR*01/31/2014 Nonunion of fracture [TXR3461] INVALID FOR*01/31/2014 Other complications due to other internal ortho*INVALID FOR*01/31/2014 Gastric bypass status for obesity [Z98.84] CKD (chronic kidney disease) stage 3, GFR 30-59*INVALID FOR* More... ADHD (attention deficit hyperactivity disorder)*INVALID FOR* IFG (impaired fasting glucose) [R73.01] INVALID FOR*10/03/2016 Sleep apnea [G47.30] INVALID FOR* More... Pancreatic mass [K86.9] INVALID FOR* More... Hyperlipidemia [E78.5] INVALID FOR* More... Hypocalcemia [E83.51] INVALID FOR*10/01/2016 More... Hypokalemia [E87.6] INVALID FOR*10/01/2016 Fracture of right clavicle [S42.001A] INVALID FOR*10/01/2016 PTSD (post-traumatic stress disorder) [F43.10] INVALID FOR* Sternoclavicular joint subluxation [S43.203A] INVALID FOR*10/01/2016 Subluxation of right sternoclavicular joint [S4*INVALID FOR*11/28/2017 BASIL (obstructive sleep apnea) [G47.33] INVALID FOR* Obesity, Class III, BMI >= 40 [E66.01] INVALID FOR* More... Nephrolithiasis [N20.0] INVALID FOR* Essential hypertension [I10] INVALID FOR* Other instructions from your clinician: ASSESSMENT/PLAN: 1. Cough - ICD9: 786.2, ICD10: R05 (primary diagnosis) Rest, increase water intake Motrin or Tylenol as needed for fever or pain. Salt water gargles, chloraseptic spray or lozenges as needed for sore throat. Nasal spray as needed Cool mist humidifier at night A cold normally lasts 7-10 days. If your symptoms are lasting longer, develop fever, or worsening by that time instead of improving then return to clinic or follow up with PCP for re-evaluation. Tylenol (generic acetaminophen) 500 mg-2 tabs every 8 hrs. as needed for fever and aches Ibuprofen 600 mg (3-200mg tablets) every 6 hours -Sudafed (generic is fine), behind the counter, 2x30 mg tabs twice daily as needed for congestion -Mucinex (generic is fine) 1200 mg twice daily to help with cough and to thin out mucus -http://www.choosingwisely.org/patient-resources/antibiotics/. This link shares information about when antibiotics may help and when they may not. - XR CHEST 2V FRONTAL/LAT - BENZONATATE 200 MG CAPSULE Tessalon Perlwilliams as prescribed for coughing, do not combine this with other cough and cold medications 2. Adventitious breath sounds - ICD9: 786.00, ICD10: R06.89 Improved with albuterol Continue inhaler every 4-6 hours as needed - XR CHEST 2V FRONTAL/LAT - ALBUTEROL SULFATE 2.5 MG/3 ML (0.083 %) SOLUTION FOR NEBULIZATION - ALBUTEROL SULFATE HFA 90 MCG/ACTUATION AEROSOL INHALER * Seek medical care immediately, call 911, go to ER if you have chest pain, difficulty breathing, shortness of breath, inability to swallow. Visit Notes: >> Denise Melvin LPN WedMar 02, 2018 3:30 PM Status: Signed 2.5 solution aerosol treatment given per doctor's orders. Prior to treatment O2 Sat is 94%. Treatment completed. O2 sat is 95%. Tolerated well.Denise Melvin LPN Prescriptions ordered this encounter Disp Refills Start End ALBUTEROL SULFATE 2.5 MG/3 ML (0.083* 03/02/2018 03/02/2018 Route: INHALATION ALBUTEROL SULFATE HFA 90 MCG/ACTUATI* 1 In* 0 03/02/2018 Route: INHALATION Sig: Inhale 2 Puffs as instructed every 4 hours as needed. BENZONATATE 200 MG CAPSULE 30 c* 0 03/02/2018 Route: ORAL Sig: Take 1 capsule by mouth three times daily as needed. Encounter Status:Closed by NALLELY GARCIA CNP on 03/02/18 EMERGENCY DEPARTMENT Observed: 02/22/2018 Status: F Source: FALSE PASS SUMMARY 11:31 PM [facility] [place] REPOSITORY [facility] Medical Records Department [address] [place] [address] Emergency Department Summary 02/22/18 2255 MR#: [id number] Acct: [id number] Name: THUY WHITE Rep #: [id number] : 1965 52 From: José Miguel Page MD PCP: Bret Jay MD Status: DEP ER - ER Visit Summary Date of Service: 02/22/18 Chief Complaint: Right hip pain, right leg pain History of Present Illness: The patient is a 52 [place] and [id number] arthritis of the right knee who follows with Dr. Cantor presents with right low back pain into her right hip and posterior leg. The patient's been having symptoms for the past few days. She states that she is trying to get any replacement, but she was told she has to lose weight first. She states because of her pain, she has been walking differently. She began have a burning pain from her low back that goes down her leg. She denies any fevers or chills. She denies any trouble urinating or moving her bowels. She denies any weakness. She did go to urgent care and was given anti-inflammatories and antispasmodics with little improvement. Physical Examination: Afebrile, vitals unremarkable. Well- appearing female no acute distress. Head is normocephalic, atraumatic. Pupil's equal round reactive, extraocular muscles intact. Neck supple. Heart regular rate and rhythm. Lungs clear, chest nontender. Abdomen soft, nontender, nondistended. No pulsatile mass. Patient has paraspinal tenderness in the lumbar area, but no bony tenderness. Straight leg raise is negative bilaterally. 2+ symmetric lower extremity pulses. 2+ reflexes. No clonus. No weakness of dorsiflexion, plantar flexion, or extensor hallucis longus bilaterally. Test Results: [] Emergency Department Course and Treatment: Clinically, I do feel that this is more likely radicular pain. Her pulses are normal. Reflexes are normal. Her gait is steady. She has no red flag symptoms. I am going to treat the patient with Medrol and a short course of analgesics. She is comfortable with this plan of care. She will be discharged home peer Treatment Plan: [] Disposition: Discharge Impression: Acute lumbar radiculopathy This note was generated with Offerial dictation software. It may contain incorrect words, spelling, and punctuation that were not noted in review of the chart prior to signing ED Disposition - Plan for ED Patient: Chief Complaint: Lower Extremity Injury Instructions: ED Sciatica Prescriptions: Hydrocodone Bitart/Apap 5-325 [[place] 5MG-325MG] 1 tab PO Q4H PRN PRN 2 Days #10 tab PRN Reason: Pain MethylPREDNISolone DosePak [Medrol DosePak] 4 mg PO UD #1 box Referrals: Bret Jay MD [Primary Care Provider] - What to do if you have Problems For any increased pain, shortness of breath, bleeding, nausea or vomiting, chest pain, or any unexpected problems, contact your Primary Care Provider. Call [facility] ([phone]) or report to the closest Emergency Room. Call 911 if necessary. 02/22/18 2331 <Electronically signed by José Miguel Page MD> Date José Miguel Page MD Cosigner Signature (If Indicated): Date CC: Bret Jay MD BASIC METABOLIC PANL Collected: 02/18/2018 Status: F Source: [place] 9:[address] [facility] REPOSITORY TYPE CODE TESTS RESULT OUT OF REFERENCE UNITS RANGE LAB GLU 74-99 mg/dL Glucose 83 Result Comment: The [place] Diabetes Association (ADA) provides guidance for cutoff values for fasting glucose and random glucose. The ADA defines fasting as no caloric intake for at least 8 hours. Fas ting plasma glucose results between 100 to 125 mg/dL indicate increased risk for diabetes (prediabetes). Fasting plasma glucose results greater than or equal to 126 mg/dL meet the criteria for diagnosis of diabetes. In the absence of unequivocal hyperglycemia, results should be confirmed by repeat testing. In a patient with classic symptoms of hyperglycemia or hyperglycemic crisis, random plasma glucose results greater than or equal to 200 mg/dL meet the criteria for diagnosis of diabetes. Reference: Standards of Medical Care in Diabetes 2016, [place] Diabetes Association. Diabetes Care. 2016.39(Suppl 1). LAB BUN 7-21 mg/dL BUN 21 LAB CRET 0.58-0.96 mg/dL Creatinine High 1.53 LAB NA 136-144 mmol/L Sodium 140 LAB K 3.7-5.1 mmol/L Potassium 4.8 LAB CL 97-105 mmol/L Chloride 100 LAB CO2 22-30 mmol/L CO2 25 LAB AGAP 9-18 mmol/L Anion Gap 15 LAB CA 8.5-10.2 mg/dL Calcium, Total 9.1 LAB GFRAA eGFR- Amer. 43 LAB GFRNAA . eGFR-All Other Races 36 Result Comment: eGFR (Estimated GFR) Units of measure: mL/min/1.73 meters squared eGFR is derived from the reexpressed MDRD Study equation using the following parameters: serum creatinine, age, gender and race. The creatinine assay has been calibrated to be traceable to IDMS. An eGFR <60 mL/min/1.73m2 for >3 months is consistent with chronic kidney disease. Refer to KDOQI guidelines for clinical interpretation. In patients with unstable renal function, e.g. those with acute kidney injury, the eGFR may not accurately reflect actual GFR. Performed By: #### BMP #### [id number] #### ICA #### [facility] [address] [address] CALCIUM, IONIZED Collected: 02/18/2018 Status: F Source: [place] 9:11 AM [facility] REPOSITORY TYPE CODE TESTS RESULT OUT OF REFERENCE UNITS RANGE LAB ICAL 1.08-1.30 mmol/L Calcium, Ionized 1.16 LAB NCA 1.08-1.30 mmol/L Calcium, Normalized 1.12 Performed By: #### BMP #### [facility] [address] [place], [place] [id number] #### ICA #### [facility] [address] [place] [address] PROGRESS Observed: 02/18/2018 Status: COMPLETED Source: [place] 8:[address] [facility] REPOSITORY HNO ID: [id number] Author: Bret Jay Service: (none) Author Type: Physician Type: Progress Notes Filed: 02/18/2018 9:49 PM Note Text: ESTABLISHED PATIENT Thuy White is a 52 year old female presenting for Right Hip Pain (pt states symptoms started in October) and Knee Pain (bilateral). HISTORY OF PRESENT ILLNESS Hypertension Follow up Medication Adherence: no missed doses and took medications this morning Home monitoring: no Heart palpitations: no Chest pain: no Weakness, numbness, tingling: no Last 3 Encounter BP Readings: Date: BP: 02/18/2018 110/80 02/13/2018 108/84 11/26/2017 110/80 Has bilateral knee arthritis. Patient with right knee pain and back pain. Went to chiropractor they noted until the knee gets fixed she elenita have back problems. Won't be get surgery till weight comes off for the knee. Going to be doing water aerobics. Getting injections. Flexeril helps. Notes no drowsiness on the medication and no issues driving. Hx of depression. On effexor and abilify. The abilify is helping. Sees psychiatry. Notes feeling her calcium has been low since she was out of her medication. Still has some symptoms. Would like that checked. Starting to feel better. Last 7 Encounter Wt Readings: Date: Wt: 02/18/2018 136.8 kg (301 lb 9.6 oz) 02/13/2018 136.6 kg (301 lb 3.2 oz) 11/26/2017 132.5 kg (292 lb 1.6 oz) 11/24/2017 131.9 kg (290 lb 12.8 oz) 08/30/2017 134.2 kg (295 lb 12.8 oz) 06/22/2017 134.7 kg (297 lb) 06/07/2017 131.5 kg (290 lb) Recent Labs: WBC 10.39 06/07/2017 Hemoglobin 13.2 06/07/2017 Hematocrit 42.6 06/07/2017 Platelet Count 490 06/07/2017 Sodium 143 11/24/2017 Potassium 3.6 11/24/2017 Creatinine 1.30 11/24/2017 BUN 16 11/24/2017 Glucose 93 11/24/2017 Calcium 8.8 11/24/2017 Hemoglobin A1C 5.4 11/24/2017 LDL Calculated 145 05/16/2014 HDL Cholesterol 47 05/16/2014 Cholesterol, Total 227 05/16/2014 Triglyceride 176 05/16/2014 AST 12 11/24/2017 ALT 6 11/24/2017 Alkaline Phosphatase 85 11/24/2017 TSH 2.590 11/24/2017 HISTORIES FAMILY HISTORY Problem Relation Age of Onset - Diabetes Mother due to surgery on pancreas - Genetic Mother MEN 1 - Cancer Mother liver - Emphysema Father bacterial pneumonia - Heart Maternal Grandmother - Cancer Paternal Grandmother uterine cancer - Heart Paternal Grandfather - Cervical Cancer Sister - Cancer Maternal Aunt lymphoma - Cancer Maternal Aunt lymphoma - Cancer Maternal Uncle brain - Hypertension Sister - Genetic Sister MEN 1 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 - Esophageal reflux 2005 - Essential hypertension 11/26/2017 - Fracture of right clavicle 11/15/2015 - Generalized anxiety disorder 2003 with panic attacks - Herpes genitalis - Hypoparathyroidism (HCC) parathyroid implant Left forearm - IFG (impaired fasting glucose) 05/08/2014 - Impaired fasting glucose - Insomnia 03/16/2013 - Iron deficiency anemia - Irritable bowel syndrome 1997 diarrhea prone, dairy exacerbates - MEN 1 (multiple endocrine neoplasia) ([facility]) Dr Solorzano, [facility] - Morbid obesity (HCC) 2006 s/p sleeve Dr Dale - Obstructive sleep apnea fair complaince with CPAP - Primary hyperparathyroidism (HCC) 3 1/2 gland parathyroidectomy - Renal insufficiency - Sternoclavicular joint subluxation 07/16/2016 PAST SURGICAL HISTORY Procedure Laterality Date - AUTOTRANSPLANT, PARATHYROID 07/27/06 left forearm - DANDC, DIAG AND/OR THERAPEUTIC 1991 For excessive menstruation - EGD W/O OR W/BRUSH/WASH 2005 - EXPLORE PARATHYROID GLANDS 12/08/2005 3 3 parathyroid glans removed - GASTRIC BYPASS HX 2006 gastric sleeve - INCISION EARDRUM,ASPIR,GEN ANESTH Myringotomy/tubes - MENISCAL REPAIR SYS,[id number] Right - PAST SURGICAL HISTORY OF Left foot fracture repair - REMOVAL GALLBLADDER Cholecystectomy - REPAIR OF NASAL SEPTUM Septoplasty - SURGERY 1 HO 10/2016 clavicle surgery - TOTAL ABDOM HYSTERECTOMY 01/16/09 [place] Social History Marital status: Spouse name: Kade Years of education: 14 Number of children: 0 Occupational History 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 Social History Main Topics Smoking status: Never Smoker Smokeless tobacco: Never Used Alcohol use: Yes Comment: occasionally - social Drug use: No Comment: marijuana use yest- almost every day since feb 17.at bedtime to help sleep Sexual activity: Yes Partners with: Male control/protection: Surgical Comment: [facility] Allergies: ALLERGIES Allergen Reactions - Contrast Dye Rash - Ferrous Gluconate GI Upset Nausea - Morphine Rash - Oxycontin [Oxycodon* Rash, Swelling Rash, red and swollen eyes, facial swelling - Propranolol Itching Medications: albuterol HFA (PROVENTIL HFA, VENTOLIN HFA) 90 mcg/actuation inhaler Inhale 2 Puffs as instructed every 6 hours. ALPRAZolam (XANAX) 0.5 mg tablet Take 1 tablet by mouth daily at bedtime. amphetamine-dextroamphetamine XR (ADDERALL XR) 20 mg 24 hr capsule Take 1 capsule by mouth twice daily for 31 days.Earliest Fill Date: 01/25/18 ARIPiprazole (ABILIFY) 2 mg tablet Take 2 mg by mouth once daily. buPROPion XL (WELLBUTRIN XL) 150 mg 24 hr tablet Take 1 tablet by mouth once daily. (Psychiatrist) buPROPion XL (WELLBUTRIN XL) 300 mg 24 hr tablet Take 1 tablet by mouth once daily. calcitriol (ROCALTROL) 0.5 mcg capsule Take 3 capsules by mouth once daily. cetirizine (ZYRTEC) 10 mg tablet take 1 tablet by mouth once daily if needed cholecalciferol (VITAMIN D-3) 2,000 unit tablet Take 2,000 Units by mouth once daily. clotrimazole (LOTRIMIN, CLOTRIM) 1 % cream as needed. COMPOUNDED PRESCRIPTION Tums chewable gummies (470 mg calcium each) takes three PO tid cyanocobalamin (VITAMIN B-12) 1,000 mcg tab Take 1 tablet by mouth once daily. cyclobenzaprine (FLEXERIL) 10 mg tablet Take 1 tablet by mouth three times daily as needed for Muscle Spasm. fluticasone (FLONASE) 50 mcg/actuation nasal spray instill 1 spray into each nostril at bedtime as directed MAGNESIUM CITRATE ORAL Take 1 tablet by mouth once daily. magnesium oxide (MAG-OX) 400 mg (241.3 mg magnesium) tablet Take 1 tablet by mouth once daily. meclizine (ANTIVERT) 25 mg tab Take 1 tablet by mouth three times daily as needed (for dizziness). omeprazole (PRILOSEC) 20 mg capsule Take 1 capsule by mouth once daily. spironolactone (ALDACTONE) 100 mg tablet Take 1 tablet by mouth once daily. venlafaxine (EFFEXOR) 75 mg tablet Take 2 tablets by mouth once daily. zolpidem (AMBIEN) 5 mg tablet Take 5 mg by mouth daily at bedtime. REVIEW OF SYSTEMS GENERAL: No weight loss, malaise or fevers. RESPIRATORY: Negative for cough, hemoptysis, wheezing or shortness of breath. CARDIOVASCULAR: Negative for chest pain, leg swelling or palpitations. All other systems reviewed and negative other than HPI. PHYSICAL EXAM BP 110/80 (BP Site: Right Arm, BP Position: Sitting, BP Cuff Size: Large Adult) Pulse 90 Temp 36.7 ?C (98 ?F) Resp 18 Ht 167.6 cm (5' 6) Wt (!) 136.8 kg (301 lb 9.6 oz) LMP 02/01/2007 SpO2 100% BMI 48.68 kg/m? General: Well developed, well nourished, in no acute distress. Head: Normocephalic, atraumatic. Neck: Supple. Eyes: Normal conjunctiva, no scleral icterus. Lungs: Clear to auscultation bilaterally, no rubs, no wheezing. Cardiac: Regular rate and rhythm. No murmurs, gallops, or rubs. Extremities: No edema. ASSESSMENT/PLAN: 1. Essential hypertension - ICD9: 401.9, ICD10: I10 (primary diagnosis) - good control - Recommended regular aerobic exercise. - Recommend home blood pressure monitoring, to bring results in on next visit - BASIC METABOLIC PNL - LIPID PANEL, NONFASTING 2. Low back pain with sciatica, sciatica laterality unspecified, unspecified back pain laterality, unspecified chronicity - ICD9: 724.3, ICD10: M54.40 Flexeril seems to help. Patient aware of sedating nature of medication - CYCLOBENZAPRINE 10 MG TABLET 3. BMI 45.0-49.9, adult (HCC) - ICD9: V85.42, ICD10: Z68.42 Encouraged weight loss. Suggested dietitian. Plans on getting on through silver sneakers 4. Recurrent major depressive disorder, in full remission (HCC) - ICD9: 296.36, ICD10: F33.42 Cont FU with psychiatry 5. Chronic pain of both knees - ICD9: 719.46, 338.29, ICD10: M25.561, M25.562, G89.29 Suggest FU with ortho to see if she can get knee injection 6. Postsurgical hypoparathyroidism (HCC) - ICD9: 252.1, ICD10: E89.2 - CALCIUM IONIZED B - BASIC METABOLIC PNL Bret Jay MD CNOV Observed: 02/18/2018 Status: COMPLETED Source: [place] 8:40 AM [facility] REPOSITORY Office Visit (IMMDNA) THUY WHITE ([id number]) 1965 F [place] Date Time Provider Department 02/18/18 8:40 AM BRET JAY During your visit today, we recorded the following information about you: Temperature Pulse Respiration Blood pressure 98 degrees 90/minute 18/minute 110/80 Weight Height 136.8 kg 1.676 m Bret Jay MD 02/18/2018 9:49 PM Signed ESTABLISHED PATIENT Thuy White is a 52 year old female presenting for Right Hip Pain (pt states symptoms started in October) and Knee Pain (bilateral). HISTORY OF PRESENT ILLNESS Hypertension Follow up Medication Adherence: no missed doses and took medications this morning Home monitoring: no Heart palpitations: no Chest pain: no Weakness, numbness, tingling: no Last 3 Encounter BP Readings: Date: BP: 02/18/2018 110/80 02/13/2018 108/84 11/26/2017 110/80 Has bilateral knee arthritis. Patient with right knee pain and back pain. Went to chiropractor they noted until the knee gets fixed she elenita have back problems. Won't be get surgery till weight comes off for the knee. Going to be doing water aerobics. Getting injections. Flexeril helps. Notes no drowsiness on the medication and no issues driving. Hx of depression. On effexor and abilify. The abilify is helping. Sees psychiatry. Notes feeling her calcium has been low since she was out of her medication. Still has some symptoms. Would like that checked. Starting to feel better. Last 7 Encounter Wt Readings: Date: Wt: 02/18/2018 136.8 kg (301 lb 9.6 oz) 02/13/2018 136.6 kg (301 lb 3.2 oz) 11/26/2017 132.5 kg (292 lb 1.6 oz) 11/24/2017 131.9 kg (290 lb 12.8 oz) 08/30/2017 134.2 kg (295 lb 12.8 oz) 06/22/2017 134.7 kg (297 lb) 06/07/2017 131.5 kg (290 lb) Recent Labs: WBC 10.39 06/07/2017 Hemoglobin 13.2 06/07/2017 Hematocrit 42.6 06/07/2017 Platelet Count 490 06/07/2017 Sodium 143 11/24/2017 Potassium 3.6 11/24/2017 Creatinine 1.30 11/24/2017 BUN 16 11/24/2017 Glucose 93 11/24/2017 Calcium 8.8 11/24/2017 Hemoglobin A1C 5.4 11/24/2017 LDL Calculated 145 05/16/2014 HDL Cholesterol 47 05/16/2014 Cholesterol, Total 227 05/16/2014 Triglyceride 176 05/16/2014 AST 12 11/24/2017 ALT 6 11/24/2017 Alkaline Phosphatase 85 11/24/2017 TSH 2.590 11/24/2017 HISTORIES FAMILY HISTORY Problem Relation Age of Onset - Diabetes Mother due to surgery on pancreas - Genetic Mother MEN 1 - Cancer Mother liver - Emphysema Father bacterial pneumonia - Heart Maternal Grandmother - Cancer Paternal Grandmother uterine cancer - Heart Paternal Grandfather - Cervical Cancer Sister - Cancer Maternal Aunt lymphoma - Cancer Maternal Aunt lymphoma - Cancer Maternal Uncle brain - Hypertension Sister - Genetic Sister MEN 1 PAST MEDICAL HISTORY Diagnosis Date - ADD (attention deficit disorder) - Benign tumor of pancreas, except islets of Langerhans - 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 - Esophageal reflux 2006 - Essential hypertension 11/26/2017 - Fracture of right clavicle 11/15/2015 - Generalized anxiety disorder 2004 with panic attacks - Herpes genitalis - Hypoparathyroidism ([facility]) parathyroid implant Left forearm - IFG (impaired fasting glucose) 05/08/2014 - Impaired fasting glucose - Insomnia 03/16/2013 - Iron deficiency anemia - Irritable bowel syndrome 1997 diarrhea prone, dairy exacerbates - MEN 1 (multiple endocrine neoplasia) ([facility]) Dr Solorzano, [facility] - Morbid obesity ([facility]) 2006 s/p sleeve Dr Dale - Obstructive sleep apnea fair complaince with CPAP - Primary hyperparathyroidism ([facility]) 3 03/09 gland parathyroidectomy - Renal insufficiency - Sternoclavicular joint subluxation 07/16/2016 PAST SURGICAL HISTORY Procedure Laterality Date - AUTOTRANSPLANT, PARATHYROID 07/27/06 left forearm - DANDC, DIAG AND/OR THERAPEUTIC 1992 For excessive menstruation - EGD W/O OR W/BRUSH/WASH 2005 - EXPLORE PARATHYROID GLANDS 12/08/2005 3 05/09 parathyroid glans removed - GASTRIC BYPASS HX 2006 gastric sleeve - INCISION EARDRUM,ASPIR,GEN ANESTH Myringotomy/tubes - MENISCAL REPAIR SYS,[id number] Right - PAST SURGICAL HISTORY OF Left foot fracture repair - REMOVAL GALLBLADDER Cholecystectomy - REPAIR OF NASAL SEPTUM Septoplasty - SURGERY 10/2016 clavicle surgery - TOTAL ABDOM HYSTERECTOMY 01/16/09 [place] Social History Marital status: Spouse name: Kade Years of education: 14 Number of children: 0 Occupational History 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 Social History Main Topics Smoking status: Never Smoker Smokeless tobacco: Never Used Alcohol use: Yes Comment: occasionally - social Drug use: No Comment: marijuana use yest- almost every day since feb 17.at bedtime to help sleep Sexual activity: Yes Partners with: Male control/protection: Surgical Comment: [facility] Allergies: ALLERGIES Allergen Reactions - Contrast Dye Rash - Ferrous Gluconate GI Upset Nausea - Morphine Rash - Oxycontin [Oxycodon* Rash, Swelling Rash, red and swollen eyes, facial swelling - Propranolol Itching Medications: albuterol HFA (PROVENTIL HFA, VENTOLIN HFA) 90 mcg/actuation inhaler Inhale 2 Puffs as instructed every 6 hours. ALPRAZolam (XANAX) 0.5 mg tablet Take 1 tablet by mouth daily at bedtime. amphetamine-dextroamphetamine XR (ADDERALL XR) 20 mg 24 hr capsule Take 1 capsule by mouth twice daily for 31 days.Earliest Fill Date: 01/25/18 ARIPiprazole (ABILIFY) 2 mg tablet Take 2 mg by mouth once daily. buPROPion XL (WELLBUTRIN XL) 150 mg 24 hr tablet Take 1 tablet by mouth once daily. (Psychiatrist) buPROPion XL (WELLBUTRIN XL) 300 mg 24 hr tablet Take 1 tablet by mouth once daily. calcitriol (ROCALTROL) 0.5 mcg capsule Take 3 capsules by mouth once daily. cetirizine (ZYRTEC) 10 mg tablet take 1 tablet by mouth once daily if needed cholecalciferol (VITAMIN D-3) 2,000 unit tablet Take 2,000 Units by mouth once daily. clotrimazole (LOTRIMIN, CLOTRIM) 1 % cream as needed. COMPOUNDED PRESCRIPTION Tums chewable gummies (470 mg calcium each) takes three PO tid cyanocobalamin (VITAMIN B-12) 1,000 mcg tab Take 1 tablet by mouth once daily. cyclobenzaprine (FLEXERIL) 10 mg tablet Take 1 tablet by mouth three times daily as needed for Muscle Spasm. fluticasone (FLONASE) 50 mcg/actuation nasal spray instill 1 spray into each nostril at bedtime as directed MAGNESIUM CITRATE ORAL Take 1 tablet by mouth once daily. magnesium oxide (MAG-OX) 400 mg (241.3 mg magnesium) tablet Take 1 tablet by mouth once daily. meclizine (ANTIVERT) 25 mg tab Take 1 tablet by mouth three times daily as needed (for dizziness). omeprazole (PRILOSEC) 20 mg capsule Take 1 capsule by mouth once daily. spironolactone (ALDACTONE) 100 mg tablet Take 1 tablet by mouth once daily. venlafaxine (EFFEXOR) 75 mg tablet Take 2 tablets by mouth once daily. zolpidem (AMBIEN) 5 mg tablet Take 5 mg by mouth daily at bedtime. REVIEW OF SYSTEMS GENERAL: No weight loss, malaise or fevers. RESPIRATORY: Negative for cough, hemoptysis, wheezing or shortness of breath. CARDIOVASCULAR: Negative for chest pain, leg swelling or palpitations. All other systems reviewed and negative other than HPI. PHYSICAL EXAM BP 110/80 (BP Site: Right Arm, BP Position: Sitting, BP Cuff Size: Large Adult) Pulse 90 Temp 36.7 ?C (98 ?F) Resp 18 Ht 167.6 cm (5' 6) Wt (!) 136.8 kg (301 lb 9.6 oz) LMP 02/01/2007 SpO2 100% BMI 48.68 kg/m? General: Well developed, well nourished, in no acute distress. Head: Normocephalic, atraumatic. Neck: Supple. Eyes: Normal conjunctiva, no scleral icterus. Lungs: Clear to auscultation bilaterally, no rubs, no wheezing. Cardiac: Regular rate and rhythm. No murmurs, gallops, or rubs. Extremities: No edema. ASSESSMENT/PLAN: 1. Essential hypertension - ICD9: 401.9, ICD10: I10 (primary diagnosis) - good control - Recommended regular aerobic exercise. - Recommend home blood pressure monitoring, to bring results in on next visit - BASIC METABOLIC PNL - LIPID PANEL, NONFASTING 2. Low back pain with sciatica, sciatica laterality unspecified, unspecified back pain laterality, unspecified chronicity - ICD9: 724.3, ICD10: M54.40 Flexeril seems to help. Patient aware of sedating nature of medication - CYCLOBENZAPRINE 10 MG TABLET 3. BMI 45.0-49.9, adult (HCC) - ICD9: V85.42, ICD10: Z68.42 Encouraged weight loss. Suggested dietitian. Plans on getting on through silver sneakers 4. Recurrent major depressive disorder, in full remission (HCC) - ICD9: 296.36, ICD10: F33.42 Cont FU with psychiatry 5. Chronic pain of both knees - ICD9: 719.46, 338.29, ICD10: M25.561, M25.562, G89.29 Suggest FU with ortho to see if she can get knee injection 6. Postsurgical hypoparathyroidism (HCC) - ICD9: 252.1, ICD10: E89.2 - CALCIUM IONIZED B - BASIC METABOLIC PNL Bret Jay MD Referring Provider: SELF [200] Allergies As of Date: 02/18/2018 Noted Allergy Reaction CONTRAST DYE 10/22/2007 2 - Rash FERROUS GLUCONATE 06/14/2012 8 - GI Upset Comments: Nausea MORPHINE 05/14/2005 2 - Rash OXYCONTIN (OXYCODONE HCL) 01/07/2007 2 - Rash 7 - Swelling Comments: Rash, red and swollen eyes, facial swelling PROPRANOLOL 04/02/2017 9 - Itching Date Reviewed: 02/18/2018 Reviewed by: Tracy Johnson Ma - Fully Assessed Reason for Visit: Right Hip Pain [1554] Cmt: pt states symptoms started in October Knee Pain [132] Cmt: bilateral Reason For Visit History Recorded Primary Visit Diagnosis:Essential hypertension [I10] Other Visit Diagnoses:Low back pain with sciatica, sciatica laterality unspecified, unspecified back pain laterality, unspecified chronicity [M54.40] BMI 45.0-49.9, adult (HCC) [Z68.42] Recurrent major depressive disorder, in full remission ([facility]) [F33.42] Chronic pain of both knees [M25.561, M25.562, G89.29] Postsurgical hypoparathyroidism (HCC) [E89.2] Order(s):cyclobenzaprine (FLEXERIL) 10 mg tabletTake 1 tablet by mouth three times daily as needed for Muscle Spasm or Pain.Disp: 30 tabletRfl: 5 BASIC METABOLIC PNL [SQBMP] Order #: [id number] FUTURE LIPID PANEL, NONFASTING [SQLIPNF] Order #: [id number] FUTURE CALCIUM IONIZED B [SQICA] Order #: [id number] FUTURE BASIC METABOLIC PNL [SQBMP] Order #: [id number] FUTURE Prescriptions as of 02/18/2018 Sig: ALBUTEROL SULFATE HFA 90 MCG/* Inhale 2 Puffs as instructed * ALPRAZOLAM 0.5 MG TABLET Take 1 tablet by mouth daily * DEXTROAMPHETAMINE-AMPHETAMINE* Take 1 capsule by mouth twice* ARIPIPRAZOLE 2 MG TABLET Take 2 mg by mouth once daily. BUPROPION XL 150 MG TAB Take 1 tablet by mouth once d* BUPROPION XL 300 MG 24 HR TAB Take 1 tablet by mouth once d* CALCITRIOL 0.5 MCG CAPSULE Take 3 capsules by mouth once* CETIRIZINE 10 MG TABLET take 1 tablet by mouth once d* CHOLECALCIFEROL (VITAMIN D3) * Take 2,000 Units by mouth onc* CLOTRIMAZOLE 1 % TOPICAL CREAM as needed. COMPOUNDED PRESCRIPTION Tums chewable gummies (470 mg* CYANOCOBALAMIN (VIT B-12) 1,0* Take 1 tablet by mouth once d* CYCLOBENZAPRINE 10 MG TABLET Take 1 tablet by mouth three * FLUTICASONE 50 MCG/ACTUATION * instill 1 spray into each nos* MAGNESIUM CITRATE ORAL Take 1 tablet by mouth once d* MAGNESIUM OXIDE 400 MG (241.3* Take 1 tablet by mouth once d* MECLIZINE 25 MG TABLET Take 1 tablet by mouth three * OMEPRAZOLE 20 MG CAPSULE,VANE* Take 1 capsule by mouth once * SPIRONOLACTONE 100 MG TABLET Take 1 tablet by mouth once d* VENLAFAXINE 75 MG TABLET Take 2 tablets by mouth once * ZOLPIDEM 5 MG TABLET Take 5 mg by mouth daily at b* Problem List As Of Date 02/18/2018 Noted Resolved PRIMARY HYPERPARATHYROIDISM [E21.0] INVALID FOR*01/07/2007 Dysmenorrhea [N94.6] 02/25/2009 Irregular Menstrual Cycle [N92.6] 02/25/2009 More... Depression [F32.9] More... 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 Complex Endometrial Hyperplasia without Atypia *INVALID FOR*02/25/2009 More... LENO (generalized anxiety disorder) [F41.1] INVALID FOR* Eating disorder NEC INVALID FOR*04/11/2014 Hirsutism [L68.0] INVALID FOR*04/11/2014 Vitamin B12 deficiency [E53.8] INVALID FOR* Onychia and paronychia of toe [L03.039] INVALID FOR*01/31/2014 Nonunion of fracture [NKD3416] INVALID FOR*01/31/2014 Other complications due to other internal ortho*INVALID FOR*01/31/2014 Gastric bypass status for obesity [Z98.84] CKD (chronic kidney disease) stage 3, GFR 30-59*INVALID FOR* More... ADHD (attention deficit hyperactivity disorder)*INVALID FOR* IFG (impaired fasting glucose) [R73.01] INVALID FOR*10/03/2016 Sleep apnea [G47.30] INVALID FOR* More... Pancreatic mass [K86.9] INVALID FOR* More... Hyperlipidemia [E78.5] INVALID FOR* More... Hypocalcemia [E83.51] INVALID FOR*10/01/2016 More... Hypokalemia [E87.6] INVALID FOR*10/01/2016 Fracture of right clavicle [S42.001A] INVALID FOR*10/01/2016 PTSD (post-traumatic stress disorder) [F43.10] INVALID FOR* Sternoclavicular joint subluxation [S43.203A] INVALID FOR*10/01/2016 Subluxation of right sternoclavicular joint [S4*INVALID FOR*11/28/2017 BASIL (obstructive sleep apnea) [G47.33] INVALID FOR* Obesity, Class III, BMI >= 40 [E66.01] INVALID FOR* More... Nephrolithiasis [N20.0] INVALID FOR* Essential hypertension [I10] INVALID FOR* Prescriptions ordered this encounter Disp Refills Start End CYCLOBENZAPRINE 10 MG TABLET 30 t* 5 02/18/2018 08/17/2018 Route: ORAL Sig: Take 1 tablet by mouth three times daily as needed for Muscle Spasm or Pain. Medications Discontinued During This Encounter cyclobenzaprine (FLEXERIL) 10 mg tab* 18 t* 0 02/13/2018 02/18/2018 Route: ORAL Sig: Take 1 tablet by mouth three times daily as needed for Muscle Spasm. Disc: Reason for discontinue is not on file. Disposition: Return in about 4 months (around 06/19/2018). Follow-up and Disposition History Recorded Encounter Status:Closed by BRET JAY MD on 02/18/18 PROGRESS Observed: 02/13/2018 Status: COMPLETED Source: [place] 12:[address] [facility] REPOSITORY HNO ID: [id number] Author: Ana Cristina Doll) Giorgio Service: (none) Author Type: Nurse Practitioner Type: Progress Notes Filed: 02/13/2018 12:27 PM Note Text: Subjective HPI Spasms from R hip to knee. Has a history of back and knee pain. Was seen by chiropractor with some initial relief but pain soon returned. Pain has been worsening over the last 2 weeks. No recent trauma. Review of Systems Constitutional: Negative. HENT: Negative. Eyes: Negative. Respiratory: Negative. Cardiovascular: Negative. Gastrointestinal: Negative. Genitourinary: Negative. Musculoskeletal: Positive for back pain. Skin: Negative. Neurological: Negative. Objective Physical Exam Constitutional: She is oriented to person, place, and time and well-developed, well-nourished, and in no distress. Cardiovascular: Normal rate, regular rhythm and normal heart sounds. Pulmonary/Chest: Effort normal and breath sounds normal. Abdominal: Soft. There is no tenderness. Musculoskeletal: Normal range of motion. Mild diffuse tenderness of lower back. Neurological: She is alert and oriented to person, place, and time. Gait normal. GCS score is 15. Skin: Skin is warm and dry. Psychiatric: Mood, memory, affect and judgment normal. Nursing note and vitals reviewed. BP 108/84 Pulse 102 Temp 37.2 ?C (98.9 ?F) (Left Tympanic) Resp 20 Wt (!) 136.6 kg (301 lb 3.2 oz) LMP 02/01/2007 BMI 48.61 kg/m? 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 - Esophageal reflux 2005 - Essential hypertension 11/26/2017 - Fracture of right clavicle 11/15/2015 - Generalized anxiety disorder 2003 with panic attacks - Herpes genitalis - Hypoparathyroidism ([facility]) parathyroid implant Left forearm - IFG (impaired fasting glucose) 05/08/2014 - Impaired fasting glucose - Insomnia 03/16/2013 - Iron deficiency anemia - Irritable bowel syndrome 1997 diarrhea prone, dairy exacerbates - MEN 1 (multiple endocrine neoplasia) ([facility]) Dr Solorzano [facility] - Morbid obesity ([facility]) 2006 s/p sleeve Dr Dale - Obstructive sleep apnea fair complaince with CPAP - Primary hyperparathyroidism ([facility]) 3 1/2 gland parathyroidectomy - Renal insufficiency - Sternoclavicular joint subluxation 07/16/2016 PAST SURGICAL HISTORY Procedure Laterality Date - AUTOTRANSPLANT, PARATHYROID 07/27/06 left forearm - DANDC, DIAG AND/OR THERAPEUTIC 1991 For excessive menstruation - EGD W/O OR W/BRUSH/WASH 2005 - EXPLORE PARATHYROID GLANDS 12/08/2005 3 3 parathyroid glans removed - GASTRIC BYPASS HX 2006 gastric sleeve - INCISION EARDRUM,ASPIR,GEN ANESTH Myringotomy/tubes - MENISCAL REPAIR SYS,[id number] Right - PAST SURGICAL HISTORY OF Left foot fracture repair - REMOVAL GALLBLADDER Cholecystectomy - REPAIR OF NASAL SEPTUM Septoplasty - SURGERY 1 HO 10/2016 clavicle surgery - TOTAL ABDOM HYSTERECTOMY 01/16/09 [facility] [employer] Contrast Dye; Ferrous Gluconate; Morphine; Oxycontin [Oxycodone Hcl]; Propranolol MEDICATIONS amphetamine-dextroamphetamine XR (ADDERALL XR) 20 mg 24 hr capsule Take 1 capsule by mouth twice daily for 31 days.Earliest Fill Date: 01/25/18 spironolactone (ALDACTONE) 100 mg tablet Take 1 tablet by mouth once daily. omeprazole (PRILOSEC) 20 mg capsule Take 1 capsule by mouth once daily. cetirizine (ZYRTEC) 10 mg tablet take 1 tablet by mouth once daily if needed fluticasone (FLONASE) 50 mcg/actuation nasal spray instill 1 spray into each nostril at bedtime as directed MAGNESIUM CITRATE ORAL Take 1 tablet by mouth once daily. cholecalciferol (VITAMIN D-3) 2,000 unit tablet Take 2,000 Units by mouth once daily. venlafaxine (EFFEXOR) 75 mg tablet Take 2 tablets by mouth once daily. magnesium oxide (MAG-OX) 400 mg (241.3 mg magnesium) tablet Take 1 tablet by mouth once daily. cyanocobalamin (VITAMIN B-12) 1,000 mcg tab Take 1 tablet by mouth once daily. clotrimazole (LOTRIMIN, CLOTRIM) 1 % cream as needed. zolpidem (AMBIEN) 5 mg tablet Take 5 mg by mouth daily at bedtime. albuterol HFA (PROVENTIL HFA, VENTOLIN HFA) 90 mcg/actuation inhaler Inhale 2 Puffs as instructed every 6 hours. calcitriol (ROCALTROL) 0.5 mcg capsule take 3 capsules by mouth once daily meclizine (ANTIVERT) 25 mg tab Take 1 tablet by mouth three times daily as needed (for dizziness). buPROPion XL (WELLBUTRIN XL) 150 mg 24 hr tablet Take 1 tablet by mouth once daily. (Psychiatrist) buPROPion XL (WELLBUTRIN XL) 300 mg 24 hr tablet Take 1 tablet by mouth once daily. ALPRAZolam (XANAX) 0.5 mg tablet Take 1 tablet by mouth daily at bedtime. COMPOUNDED PRESCRIPTION Tums chewable gummies (470 mg calcium each) takes three PO tid cyclobenzaprine (FLEXERIL) 10 mg tablet Take 1 tablet by mouth three times daily as needed for Muscle Spasm. FAMILY HISTORY Problem Relation Age of Onset - Diabetes Mother due to surgery on pancreas - Genetic Mother MEN 1 - Cancer Mother liver - Emphysema Father bacterial pneumonia - Heart Maternal Grandmother - Cancer Paternal Grandmother uterine cancer - Heart Paternal Grandfather - Cervical Cancer Sister - Cancer Maternal Aunt lymphoma - Cancer Maternal Aunt lymphoma - Cancer Maternal Uncle brain - Hypertension Sister - Genetic Sister MEN 1 Social History Substance Use Topics - Smoking status: Never Smoker - Smokeless tobacco: Never Used - Alcohol use Yes Comment: occasionally - social ASSESSMENT/PLAN: 1. Low back pain with sciatica, sciatica laterality unspecified, unspecified back pain laterality, unspecified chronicity - ICD9: 724.3, ICD10: M54.40 Chronic low back pain - Warm moist heat for 20 min three times a day - Muscle relaxant- see orders Pt has a chronic history of similar pain. Denies any recent strain or trauma. Pt has normal neuro exam with no loss of control of bowel or bladder. - CYCLOBENZAPRINE 10 MG TABLET Ana Cristina Lombardo APRN.VANDA Prescription instructions reviewed with patient as applicable. Patient advised if symptoms do not improve or if symptoms worsen sooner, to contact the office for further evaluation by either myself or their primary care physician. Potential red flag symptoms discussed with the patient. Reviewed appropriate action plan to take if red flag symptoms occur. Patient agreeable to treatment plan. MICK Hernandez Observed: 02/13/2018 Status: COMPLETED Source: [place] 12:00 PM [facility] REPOSITORY Office Visit ([facility]) THUY WHITE ([id number]) 1965 F [facility] Date Time Provider Department 02/13/18 12:00 PM ANA CRISTINA LOMBARDO (VANDA) [facility] During your visit today, we recorded the following information about you: Temperature Pulse Respiration Blood pressure 98.9 degrees 102/minute 20/minute 108/84 Weight 136.6 kg Ana Cristina Lombardo APRN.VANDA 02/13/2018 12:27 PM Signed Subjective HPI Spasms from R hip to knee. Has a history of back and knee pain. Was seen by chiropractor with some initial relief but pain soon returned. Pain has been worsening over the last 2 weeks. No recent trauma. Review of Systems Constitutional: Negative. HENT: Negative. Eyes: Negative. Respiratory: Negative. Cardiovascular: Negative. Gastrointestinal: Negative. Genitourinary: Negative. Musculoskeletal: Positive for back pain. Skin: Negative. Neurological: Negative. Objective Physical Exam Constitutional: She is oriented to person, place, and time and well-developed, well-nourished, and in no distress. Cardiovascular: Normal rate, regular rhythm and normal heart sounds. Pulmonary/Chest: Effort normal and breath sounds normal. Abdominal: Soft. There is no tenderness. Musculoskeletal: Normal range of motion. Mild diffuse tenderness of lower back. Neurological: She is alert and oriented to person, place, and time. Gait normal. GCS score is 15. Skin: Skin is warm and dry. Psychiatric: Mood, memory, affect and judgment normal. Nursing note and vitals reviewed. BP 108/84 Pulse 102 Temp 37.2 ?C (98.9 ?F) (Left Tympanic) Resp 20 Wt (!) 136.6 kg (301 lb 3.2 oz) LMP 02/01/2007 BMI 48.61 kg/m? 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 - Esophageal reflux 2005 - Essential hypertension 11/26/2017 - Fracture of right clavicle 11/15/2015 - Generalized anxiety disorder 2004 with panic attacks - Herpes genitalis - Hypoparathyroidism ([facility]) parathyroid implant Left forearm - IFG (impaired fasting glucose) 05/08/2014 - Impaired fasting glucose - Insomnia 03/16/2013 - Iron deficiency anemia - Irritable bowel syndrome 1997 diarrhea prone, dairy exacerbates - MEN 1 (multiple endocrine neoplasia) ([facility]) Jovon [place] - Morbid obesity ([facility]) 2006 s/p sleeve Dr Dale - Obstructive sleep apnea fair complaince with CPAP - Primary hyperparathyroidism ([facility]) 3 03/09 gland parathyroidectomy - Renal insufficiency - Sternoclavicular joint subluxation 07/16/2016 PAST SURGICAL HISTORY Procedure Laterality Date - AUTOTRANSPLANT, PARATHYROID 07/27/06 left forearm - DANDC, DIAG AND/OR THERAPEUTIC 1992 For excessive menstruation - EGD W/O OR W/BRUSH/WASH 2005 - EXPLORE PARATHYROID GLANDS 12/08/2005 3 05/09 parathyroid glans removed - GASTRIC BYPASS HX 2006 gastric sleeve - INCISION EARDRUM,ASPIR,GEN ANESTH Myringotomy/tubes - MENISCAL REPAIR SYS,[id number] Right - PAST SURGICAL HISTORY OF Left foot fracture repair - REMOVAL GALLBLADDER Cholecystectomy - REPAIR OF NASAL SEPTUM Septoplasty - SURGERY 10/2016 clavicle surgery - TOTAL ABDOM HYSTERECTOMY 01/16/09 [facility] [employer] Contrast Dye; Ferrous Gluconate; Morphine; Oxycontin [Oxycodone Hcl]; Propranolol MEDICATIONS amphetamine-dextroamphetamine XR (ADDERALL XR) 20 mg 24 hr capsule Take 1 capsule by mouth twice daily for 31 days.Earliest Fill Date: 01/25/18 spironolactone (ALDACTONE) 100 mg tablet Take 1 tablet by mouth once daily. omeprazole (PRILOSEC) 20 mg capsule Take 1 capsule by mouth once daily. cetirizine (ZYRTEC) 10 mg tablet take 1 tablet by mouth once daily if needed fluticasone (FLONASE) 50 mcg/actuation nasal spray instill 1 spray into each nostril at bedtime as directed MAGNESIUM CITRATE ORAL Take 1 tablet by mouth once daily. cholecalciferol (VITAMIN D-3) 2,000 unit tablet Take 2,000 Units by mouth once daily. venlafaxine (EFFEXOR) 75 mg tablet Take 2 tablets by mouth once daily. magnesium oxide (MAG-OX) 400 mg (241.3 mg magnesium) tablet Take 1 tablet by mouth once daily. cyanocobalamin (VITAMIN B-12) 1,000 mcg tab Take 1 tablet by mouth once daily. clotrimazole (LOTRIMIN, CLOTRIM) 1 % cream as needed. zolpidem (AMBIEN) 5 mg tablet Take 5 mg by mouth daily at bedtime. albuterol HFA (PROVENTIL HFA, VENTOLIN HFA) 90 mcg/actuation inhaler Inhale 2 Puffs as instructed every 6 hours. calcitriol (ROCALTROL) 0.5 mcg capsule take 3 capsules by mouth once daily meclizine (ANTIVERT) 25 mg tab Take 1 tablet by mouth three times daily as needed (for dizziness). buPROPion XL (WELLBUTRIN XL) 150 mg 24 hr tablet Take 1 tablet by mouth once daily. (Psychiatrist) buPROPion XL (WELLBUTRIN XL) 300 mg 24 hr tablet Take 1 tablet by mouth once daily. ALPRAZolam (XANAX) 0.5 mg tablet Take 1 tablet by mouth daily at bedtime. COMPOUNDED PRESCRIPTION Tums chewable gummies (470 mg calcium each) takes three PO tid cyclobenzaprine (FLEXERIL) 10 mg tablet Take 1 tablet by mouth three times daily as needed for Muscle Spasm. FAMILY HISTORY Problem Relation Age of Onset - Diabetes Mother due to surgery on pancreas - Genetic Mother MEN 1 - Cancer Mother liver - Emphysema Father bacterial pneumonia - Heart Maternal Grandmother - Cancer Paternal Grandmother uterine cancer - Heart Paternal Grandfather - Cervical Cancer Sister - Cancer Maternal Aunt lymphoma - Cancer Maternal Aunt lymphoma - Cancer Maternal Uncle brain - Hypertension Sister - Genetic Sister MEN 1 Social History Substance Use Topics - Smoking status: Never Smoker - Smokeless tobacco: Never Used - Alcohol use Yes Comment: occasionally - social ASSESSMENT/PLAN: 1. Low back pain with sciatica, sciatica laterality unspecified, unspecified back pain laterality, unspecified chronicity - ICD9: 724.3, ICD10: M54.40 Chronic low back pain - Warm moist heat for 20 min three times a day - Muscle relaxant- see orders Pt has a chronic history of similar pain. Denies any recent strain or trauma. Pt has normal neuro exam with no loss of control of bowel or bladder. - CYCLOBENZAPRINE 10 MG TABLET Ana Cristina Lombardo APRN.[employer] Prescription instructions reviewed with patient as applicable. Patient advised if symptoms do not improve or if symptoms worsen sooner, to contact the office for further evaluation by either myself or their primary care physician. Potential red flag symptoms discussed with the patient. Reviewed appropriate action plan to take if red flag symptoms occur. Patient agreeable to treatment plan. Ana Cristina Lombardo APRN.CNP Referring Provider: SELF [200] Allergies As of Date: 02/13/2018 Noted Allergy Reaction CONTRAST DYE 10/22/2007 2 - Rash FERROUS GLUCONATE 06/14/2012 8 - GI Upset Comments: Nausea MORPHINE 05/14/2005 2 - Rash OXYCONTIN (OXYCODONE HCL) 01/07/2007 2 - Rash 7 - Swelling Comments: Rash, red and swollen eyes, facial swelling PROPRANOLOL 04/02/2017 9 - Itching Date Reviewed: 02/13/2018 Reviewed by: Soraya Conklin Ma - Fully Assessed Reason for Visit: Acute Visit [896] Cmt: back spasms AND pain Primary Visit Diagnosis:Low back pain with sciatica, sciatica laterality unspecified, unspecified back pain laterality, unspecified chronicity [M54.40] Order(s):cyclobenzaprine (FLEXERIL) 10 mg tabletTake 1 tablet by mouth three times daily as needed for Muscle Spasm.Disp: 18 tabletRfl: 0 Prescriptions as of 02/13/2018 Sig: DEXTROAMPHETAMINE-AMPHETAMINE* Take 1 capsule by mouth twice* SPIRONOLACTONE 100 MG TABLET Take 1 tablet by mouth once d* OMEPRAZOLE 20 MG CAPSULE,VANE* Take 1 capsule by mouth once * CETIRIZINE 10 MG TABLET take 1 tablet by mouth once d* FLUTICASONE 50 MCG/ACTUATION * instill 1 spray into each nos* MAGNESIUM CITRATE ORAL Take 1 tablet by mouth once d* CHOLECALCIFEROL (VITAMIN D3) * Take 2,000 Units by mouth onc* VENLAFAXINE 75 MG TABLET Take 2 tablets by mouth once * MAGNESIUM OXIDE 400 MG (241.3* Take 1 tablet by mouth once d* CYANOCOBALAMIN (VIT B-12) 1,0* Take 1 tablet by mouth once d* CLOTRIMAZOLE 1 % TOPICAL CREAM as needed. ZOLPIDEM 5 MG TABLET Take 5 mg by mouth daily at b* ALBUTEROL SULFATE HFA 90 MCG/* Inhale 2 Puffs as instructed * CALCITRIOL 0.5 MCG CAPSULE take 3 capsules by mouth once* MECLIZINE 25 MG TABLET Take 1 tablet by mouth three * BUPROPION XL 150 MG TAB Take 1 tablet by mouth once d* BUPROPION XL 300 MG 24 HR TAB Take 1 tablet by mouth once d* ALPRAZOLAM 0.5 MG TABLET Take 1 tablet by mouth daily * COMPOUNDED PRESCRIPTION Tums chewable gummies (470 mg* CYCLOBENZAPRINE 10 MG TABLET Take 1 tablet by mouth three * Problem List As Of Date 02/13/2018 Noted Resolved PRIMARY HYPERPARATHYROIDISM [E21.0] INVALID FOR*01/07/2007 Dysmenorrhea [N94.6] 02/25/2009 Irregular Menstrual Cycle [N92.6] 02/25/2009 More... Depression [F32.9] More... 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 Complex Endometrial Hyperplasia without Atypia *INVALID FOR*02/25/2009 More... LENO (generalized anxiety disorder) [F41.1] INVALID FOR* Eating disorder NEC INVALID FOR*04/11/2014 Hirsutism [L68.0] INVALID FOR*04/11/2014 Vitamin B12 deficiency [E53.8] INVALID FOR* Onychia and paronychia of toe [L03.039] INVALID FOR*01/31/2014 Nonunion of fracture [JCC7499] INVALID FOR*01/31/2014 Other complications due to other internal ortho*INVALID FOR*01/31/2014 Gastric bypass status for obesity [Z98.84] CKD (chronic kidney disease) stage 3, GFR 30-59*INVALID FOR* More... ADHD (attention deficit hyperactivity disorder)*INVALID FOR* IFG (impaired fasting glucose) [R73.01] INVALID FOR*10/03/2016 Sleep apnea [G47.30] INVALID FOR* More... Pancreatic mass [K86.9] INVALID FOR* More... Hyperlipidemia [E78.5] INVALID FOR* More... Hypocalcemia [E83.51] INVALID FOR*10/01/2016 More... Hypokalemia [E87.6] INVALID FOR*10/01/2016 Fracture of right clavicle [S42.001A] INVALID FOR*10/01/2016 PTSD (post-traumatic stress disorder) [F43.10] INVALID FOR* Sternoclavicular joint subluxation [S43.203A] INVALID FOR*10/01/2016 Subluxation of right sternoclavicular joint [S4*INVALID FOR*11/28/2017 BASIL (obstructive sleep apnea) [G47.33] INVALID FOR* Obesity, Class III, BMI >= 40 [E66.01] INVALID FOR* More... Nephrolithiasis [N20.0] INVALID FOR* Essential hypertension [I10] INVALID FOR* Prescriptions ordered this encounter Disp Refills Start End CYCLOBENZAPRINE 10 MG TABLET 18 t* 0 02/13/2018 Route: ORAL Sig: Take 1 tablet by mouth three times daily as needed for Muscle Spasm. Encounter Status:Closed by ANA CRISTINA LOMBARDO CNP on 02/13/18 PROGRESS Observed: 11/26/2017 Status: COMPLETED Source: [place] 3:[address] [facility] REPOSITORY [facility] ID: [id number] Author: Bret Jay Service: (none) Author Type: Physician Type: Progress Notes Filed: 11/26/2017 10:12 PM Note Text: ESTABLISHED PATIENT Thuy White is a 52 year old female presenting for Follow Up (Bi Lateral Eyes, Itching and dryness x 2 weeks ). HISTORY OF PRESENT ILLNESS After dilation for eye exam, been having itchy and dry eyes. Tried a steroid/abx without rleief. Hypertension Follow up Medication Adherence: no missed doses and took medications this morning Home monitoring: no Heart palpitations: no Chest pain: no Weakness, numbness, tingling: no Last 3 Encounter BP Readings: Date: BP: 11/26/2017 110/80 11/24/2017 144/86 08/30/2017 140/82 Depression is bad. SEeing psychiatrist on the 4th. Effexor 75, Adderall 20mg, Wellbutrin. Effexor causing low sex drive. No SI, HI. Recent Labs: WBC 10.39 06/07/2017 Hemoglobin 13.2 06/07/2017 Hematocrit 42.6 06/07/2017 Platelet Count 490 06/07/2017 Sodium 143 11/24/2017 Potassium 3.6 11/24/2017 Creatinine 1.30 11/24/2017 BUN 16 11/24/2017 Glucose 93 11/24/2017 Calcium 8.8 11/24/2017 Hemoglobin A1C 5.4 11/24/2017 LDL Calculated 145 05/16/2014 HDL Cholesterol 47 05/16/2014 Cholesterol, Total 227 05/16/2014 Triglyceride 176 05/16/2014 AST 12 11/24/2017 ALT 6 11/24/2017 Alkaline Phosphatase 85 11/24/2017 TSH 2.590 11/24/2017 HISTORIES FAMILY HISTORY Problem Relation Age of Onset - Diabetes Mother due to surgery on pancreas - Genetic Mother MEN 1 - Cancer Mother liver - Emphysema Father bacterial pneumonia - Heart Maternal Grandmother - Cancer Paternal Grandmother uterine cancer - Heart Paternal Grandfather - Cervical Cancer Sister - Cancer Maternal Aunt lymphoma - Cancer Maternal Aunt lymphoma - Cancer Maternal Uncle brain - Hypertension Sister - Genetic Sister MEN 1 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 - Esophageal reflux 2005 - Fracture of right clavicle 11/15/2015 - Generalized anxiety disorder 2003 with panic attacks - Herpes genitalis - Hypoparathyroidism (HCC) parathyroid implant Left forearm - IFG (impaired fasting glucose) 05/08/2014 - Impaired fasting glucose - Insomnia 03/16/2013 - Iron deficiency anemia - Irritable bowel syndrome 1997 diarrhea prone, dairy exacerbates - MEN 1 (multiple endocrine neoplasia) (HCC) [facility] - Morbid obesity (HCC) 2006 s/p sleeve Dr Dale - Obstructive sleep apnea fair complaince with CPAP - Primary hyperparathyroidism (HCC) 3 1 gland parathyroidectomy - Renal insufficiency - Sternoclavicular joint subluxation 07/16/2016 PAST SURGICAL HISTORY Procedure Laterality Date - AUTOTRANSPLANT, PARATHYROID 07/27/06 left forearm - DANDC, DIAG AND/OR THERAPEUTIC 1992 For excessive menstruation - EGD W/O OR W/BRUSH/WASH 2005 - EXPLORE PARATHYROID GLANDS 12/08/2005 3 3 parathyroid glans removed - GASTRIC BYPASS HX 2006 gastric sleeve - INCISION EARDRUM,ASPIR,GEN ANESTH Myringotomy/tubes - MENISCAL REPAIR SYS,CD,[id number] Right - PAST SURGICAL HISTORY OF Left foot fracture repair - REMOVAL GALLBLADDER Cholecystectomy - REPAIR OF NASAL SEPTUM Septoplasty - SURGERY 1 HO 10/2016 clavicle surgery - TOTAL ABDOM HYSTERECTOMY 01/16/09 [facility] Social History Marital status: Spouse name: Kade Years of education: 14 Number of children: 0 Occupational History 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 Social History Main Topics Smoking status: Never Smoker Smokeless tobacco: Never Used Alcohol use: Yes Comment: occasionally - social Drug use: No Comment: marijuana use yest- almost every day since feb 17.at bedtime to help sleep Sexual activity: Yes Partners with: Male control/protection: Surgical Comment: [facility] Allergies: ALLERGIES Allergen Reactions - Contrast Dye Rash - Ferrous Gluconate GI Upset Nausea - Morphine Rash - Oxycontin [Oxycodon* Rash, Swelling Rash, red and swollen eyes, facial swelling - Propranolol Itching Medications: spironolactone (ALDACTONE) 100 mg tablet take 1 tablet by mouth once daily MAGNESIUM CITRATE ORAL Take 1 tablet by mouth once daily. cholecalciferol (VITAMIN D-3) 2,000 unit tablet Take 2,000 Units by mouth once daily. omeprazole (PRILOSEC) 20 mg capsule Take 20 mg by mouth once daily. venlafaxine (EFFEXOR) 75 mg tablet Take 2 tablets by mouth once daily. magnesium oxide (MAG-OX) 400 mg (241.3 mg magnesium) tablet Take 1 tablet by mouth once daily. cyanocobalamin (VITAMIN B-12) 1,000 mcg tab Take 1 tablet by mouth once daily. amphetamine-dextroamphetamine XR (ADDERALL XR) 20 mg 24 hr capsule Take 1 capsule by mouth twice daily for 31 days. fluticasone (FLONASE) 50 mcg/actuation nasal spray instill 1 spray into each nostril at bedtime as directed clotrimazole (LOTRIMIN, CLOTRIM) 1 % cream as needed. zolpidem (AMBIEN) 5 mg tablet Take 5 mg by mouth daily at bedtime. albuterol HFA (PROVENTIL HFA, VENTOLIN HFA) 90 mcg/actuation inhaler Inhale 2 Puffs as instructed every 6 hours. cetirizine (ZYRTEC) 10 mg tablet Take 1 tablet by mouth once daily as needed. calcitriol (ROCALTROL) 0.5 mcg capsule take 3 capsules by mouth once daily meclizine (ANTIVERT) 25 mg tab Take 1 tablet by mouth three times daily as needed (for dizziness). buPROPion XL (WELLBUTRIN XL) 150 mg 24 hr tablet Take 1 tablet by mouth once daily. (Psychiatrist) buPROPion XL (WELLBUTRIN XL) 300 mg 24 hr tablet Take 1 tablet by mouth once daily. ALPRAZolam (XANAX) 0.5 mg tablet Take 1 tablet by mouth daily at bedtime. COMPOUNDED PRESCRIPTION Tums chewable gummies (470 mg calcium each) takes three PO tid REVIEW OF SYSTEMS GENERAL: No weight loss, malaise or fevers. RESPIRATORY: Negative for cough, hemoptysis, wheezing or shortness of breath. CARDIOVASCULAR: Negative for chest pain, leg swelling or palpitations. All other systems reviewed and negative other than HPI. PHYSICAL EXAM BP 110/80 Pulse 85 Temp 36.8 ?C (98.3 ?F) (Oral) Resp 18 Ht 167.6 cm (5' 6) Wt 132.5 kg (292 lb 1.6 oz) LMP 02/01/2007 SpO2 98% BMI 47.15 kg/m? General: Well developed, well nourished, in no acute distress. Head: Normocephalic, atraumatic. Neck: Supple. Eyes: Normal conjunctiva, no scleral icterus. Lungs: Clear to auscultation bilaterally, no rubs, no wheezing. Cardiac: Regular rate and rhythm. No murmurs, gallops, or rubs. Extremities: No edema. ASSESSMENT/PLAN: 1. Depression, unspecified depression type - ICD9: 311, ICD10: F32.9 (primary diagnosis) 2. LENO (generalized anxiety disorder) - ICD9: 300.02, ICD10: F41.1 Fu with psychiatry 3. Essential hypertension - ICD9: 401.9, ICD10: I10 - good control - Recommended regular aerobic exercise. - Recommend home blood pressure monitoring, to bring results in on next visit 4. Dry eyes - ICD9: 375.15, ICD10: H04.123 Try wetting drop and antihistamines for the weekend. Call eye doctors office wednesday Bret Jay MD PROGRESS Observed: 11/26/2017 Status: COMPLETED Source: [place] 3:36 PM [facility] REPOSITORY HNO ID: [id number] Author: Justen Rubalcava Service: (none) Author Type: (none) Type: Progress Notes Filed: 11/26/2017 10:12 PM Note Text: INFLUENZA(1) due on 11/06/2017 CNOV Observed: 11/26/2017 Status: COMPLETED Source: [place] 3:20 PM [facility] REPOSITORY Office Visit (IMMDNA) LALIALBERTOTHUY Y ([id number]) 1965 F [place] Date Time Provider Department 11/26/17 3:20 PM BRET JAY During your visit today, we recorded the following information about you: Temperature Pulse Respiration Blood pressure 98.3 degrees 85/minute 18/minute 110/80 Weight Height 132.5 kg 1.676 m Justen Rubalcava 11/26/2017 3:35 PM Signed [facility] OFFICE BUILDING - LAB TEST INFORMATION HOURS: 7 am to 6 pm Wednesday ? Wednesday, 7 am -12 pm on Wednesday. The lab is located in [facility] on the first floor. There is a registration window at the lab, available 7 am to 3 pm Wednesday ? Wednesday. If registration is unavailable at the lab, you may register at the patient registration office near the [facility]. ROUTINE ORDERS 60 days after they are entered. If you arrive for your lab testing after the orders have , you may be required to wait in the lab while they are reinstated. FUTURE ORDERS are lab tests to be completed on or after an ?expected? future date. These orders 60 days after the expected date. STANDING ORDERS are recurring orders with an expiration date. The interval will indicate how often the test should be completed. FASTING means nothing to eat or drink (except water) 10-12 hours before your blood is drawn. CT / MRI / IVP If you have lab tests ordered for one of these radiology exams, please complete the blood work at least one day prior to the scheduled exam. PRESCRIPTION REFILL REQUESTS Request prescription refills through your [employer] account or contact your Pharmacy. Justen Amayausman 11/26/2017 10:12 PM Signed INFLUENZA(1) due on 11/06/2017 Justen Rubalcava 11/26/2017 3:39 PM Signed Patient presents with: Follow Up: Bi Lateral Eyes, Itching and dryness x 2 weeks Bret Jay MD 11/26/2017 10:12 PM Signed ESTABLISHED PATIENT Thuy White is a 52 year old female presenting for Follow Up (Bi Lateral Eyes, Itching and dryness x 2 weeks ). HISTORY OF PRESENT ILLNESS After dilation for eye exam, been having itchy and dry eyes. Tried a steroid/abx without rleief. Hypertension Follow up Medication Adherence: no missed doses and took medications this morning Home monitoring: no Heart palpitations: no Chest pain: no Weakness, numbness, tingling: no Last 3 Encounter BP Readings: Date: BP: 11/26/2017 110/80 11/24/2017 144/86 08/30/2017 140/82 Depression is bad. SEeing psychiatrist on the 4th. Effexor 75, Adderall 20mg, Wellbutrin. Effexor causing low sex drive. No SI, HI. Recent Labs: WBC 10.39 06/07/2017 Hemoglobin 13.2 06/07/2017 Hematocrit 42.6 06/07/2017 Platelet Count 490 06/07/2017 Sodium 143 11/24/2017 Potassium 3.6 11/24/2017 Creatinine 1.30 11/24/2017 BUN 16 11/24/2017 Glucose 93 11/24/2017 Calcium 8.8 11/24/2017 Hemoglobin A1C 5.4 11/24/2017 LDL Calculated 145 05/16/2014 HDL Cholesterol 47 05/16/2014 Cholesterol, Total 227 05/16/2014 Triglyceride 176 05/16/2014 AST 12 11/24/2017 ALT 6 11/24/2017 Alkaline Phosphatase 85 11/24/2017 TSH 2.590 11/24/2017 HISTORIES FAMILY HISTORY Problem Relation Age of Onset - Diabetes Mother due to surgery on pancreas - Genetic Mother MEN 1 - Cancer Mother liver - Emphysema Father bacterial pneumonia - Heart Maternal Grandmother - Cancer Paternal Grandmother uterine cancer - Heart Paternal Grandfather - Cervical Cancer Sister - Cancer Maternal Aunt lymphoma - Cancer Maternal Aunt lymphoma - Cancer Maternal Uncle brain - Hypertension Sister - Genetic Sister MEN 1 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 - Esophageal reflux 2005 - Fracture of right clavicle 11/15/2015 - Generalized anxiety disorder 2004 with panic attacks - Herpes genitalis - Hypoparathyroidism ([facility]) parathyroid implant Left forearm - IFG (impaired fasting glucose) 05/08/2014 - Impaired fasting glucose - Insomnia 03/16/2013 - Iron deficiency anemia - Irritable bowel syndrome 1997 diarrhea prone, dairy exacerbates - MEN 1 (multiple endocrine neoplasia) ([facility]) Dr Solorzano, [place] - Morbid obesity ([facility]) 2006 s/p sleeve Dr Dale - Obstructive sleep apnea fair complaince with CPAP - Primary hyperparathyroidism ([facility]) 3 03/09 gland parathyroidectomy - Renal insufficiency - Sternoclavicular joint subluxation 07/16/2016 PAST SURGICAL HISTORY Procedure Laterality Date - AUTOTRANSPLANT, PARATHYROID 07/27/06 left forearm - DANDC, DIAG AND/OR THERAPEUTIC 1992 For excessive menstruation - EGD W/O OR W/BRUSH/WASH 2005 - EXPLORE PARATHYROID GLANDS 12/08/2005 3 05/09 parathyroid glans removed - GASTRIC BYPASS HX 2006 gastric sleeve - INCISION EARDRUM,ASPIR,GEN ANESTH Myringotomy/tubes - MENISCAL REPAIR SYS,[id number] Right - PAST SURGICAL HISTORY OF Left foot fracture repair - REMOVAL GALLBLADDER Cholecystectomy - REPAIR OF NASAL SEPTUM Septoplasty - SURGERY 10/2016 clavicle surgery - TOTAL ABDOM HYSTERECTOMY 01/16/09 [place] Social History Marital status: Spouse name: Kade Years of education: 14 Number of children: 0 Occupational History 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 Social History Main Topics Smoking status: Never Smoker Smokeless tobacco: Never Used Alcohol use: Yes Comment: occasionally - social Drug use: No Comment: marijuana use yest- almost every day since feb 17.at bedtime to help sleep Sexual activity: Yes Partners with: Male control/protection: Surgical Comment: [facility] Allergies: ALLERGIES Allergen Reactions - Contrast Dye Rash - Ferrous Gluconate GI Upset Nausea - Morphine Rash - Oxycontin [Oxycodon* Rash, Swelling Rash, red and swollen eyes, facial swelling - Propranolol Itching Medications: spironolactone (ALDACTONE) 100 mg tablet take 1 tablet by mouth once daily MAGNESIUM CITRATE ORAL Take 1 tablet by mouth once daily. cholecalciferol (VITAMIN D-3) 2,000 unit tablet Take 2,000 Units by mouth once daily. omeprazole (PRILOSEC) 20 mg capsule Take 20 mg by mouth once daily. venlafaxine (EFFEXOR) 75 mg tablet Take 2 tablets by mouth once daily. magnesium oxide (MAG-OX) 400 mg (241.3 mg magnesium) tablet Take 1 tablet by mouth once daily. cyanocobalamin (VITAMIN B-12) 1,000 mcg tab Take 1 tablet by mouth once daily. amphetamine-dextroamphetamine XR (ADDERALL XR) 20 mg 24 hr capsule Take 1 capsule by mouth twice daily for 31 days. fluticasone (FLONASE) 50 mcg/actuation nasal spray instill 1 spray into each nostril at bedtime as directed clotrimazole (LOTRIMIN, CLOTRIM) 1 % cream as needed. zolpidem (AMBIEN) 5 mg tablet Take 5 mg by mouth daily at bedtime. albuterol HFA (PROVENTIL HFA, VENTOLIN HFA) 90 mcg/actuation inhaler Inhale 2 Puffs as instructed every 6 hours. cetirizine (ZYRTEC) 10 mg tablet Take 1 tablet by mouth once daily as needed. calcitriol (ROCALTROL) 0.5 mcg capsule take 3 capsules by mouth once daily meclizine (ANTIVERT) 25 mg tab Take 1 tablet by mouth three times daily as needed (for dizziness). buPROPion XL (WELLBUTRIN XL) 150 mg 24 hr tablet Take 1 tablet by mouth once daily. (Psychiatrist) buPROPion XL (WELLBUTRIN XL) 300 mg 24 hr tablet Take 1 tablet by mouth once daily. ALPRAZolam (XANAX) 0.5 mg tablet Take 1 tablet by mouth daily at bedtime. COMPOUNDED PRESCRIPTION Tums chewable gummies (470 mg calcium each) takes three PO tid REVIEW OF SYSTEMS GENERAL: No weight loss, malaise or fevers. RESPIRATORY: Negative for cough, hemoptysis, wheezing or shortness of breath. CARDIOVASCULAR: Negative for chest pain, leg swelling or palpitations. All other systems reviewed and negative other than HPI. PHYSICAL EXAM BP 110/80 Pulse 85 Temp 36.8 ?C (98.3 ?F) (Oral) Resp 18 Ht 167.6 cm (5' 6) Wt 132.5 kg (292 lb 1.6 oz) LMP 02/01/2007 SpO2 98% BMI 47.15 kg/m? General: Well developed, well nourished, in no acute distress. Head: Normocephalic, atraumatic. Neck: Supple. Eyes: Normal conjunctiva, no scleral icterus. Lungs: Clear to auscultation bilaterally, no rubs, no wheezing. Cardiac: Regular rate and rhythm. No murmurs, gallops, or rubs. Extremities: No edema. ASSESSMENT/PLAN: 1. Depression, unspecified depression type - ICD9: 311, ICD10: F32.9 (primary diagnosis) 2. LENO (generalized anxiety disorder) - ICD9: 300.02, ICD10: F41.1 Fu with psychiatry 3. Essential hypertension - ICD9: 401.9, ICD10: I10 - good control - Recommended regular aerobic exercise. - Recommend home blood pressure monitoring, to bring results in on next visit 4. Dry eyes - ICD9: 375.15, ICD10: H04.123 Try wetting drop and antihistamines for the weekend. Call eye doctors office wednesday Bret Jay MD Referring Provider: SELF [[id number]] Allergies As of Date: 11/26/2017 Noted Allergy Reaction CONTRAST DYE 10/22/2007 2 - Rash FERROUS GLUCONATE 06/14/2012 8 - GI Upset Comments: Nausea MORPHINE 05/14/2005 2 - Rash OXYCONTIN (OXYCODONE HCL) 01/07/2007 2 - Rash 7 - Swelling Comments: Rash, red and swollen eyes, facial swelling PROPRANOLOL 04/02/2017 9 - Itching Date Reviewed: 11/26/2017 Reviewed by: Justen Rubalcava - Fully Assessed Reason for Visit: Follow Up [171] Cmt: Bi Lateral Eyes, Itching and dryness x 2 weeks Reason For Visit History Recorded Primary Visit Diagnosis:Depression, unspecified depression type [F32.9] Other Visit Diagnoses:LENO (generalized anxiety disorder) [F41.1] Essential hypertension [I10] Dry eyes [H04.123] Order(s):fluticasone (FLONASE) 50 mcg/actuation nasal sprayinstill 1 spray into each nostril at bedtime as directedDisp: 16 gRfl: 5 INFLUENZA VACCINE QUADRIVALENT AGE 3 YRS PLUS + IM [[id number]] Order #: [id number] Prescriptions as of 11/26/2017 Sig: FLUTICASONE 50 MCG/ACTUATION * instill 1 spray into each nos* SPIRONOLACTONE 100 MG TABLET take 1 tablet by mouth once d* MAGNESIUM CITRATE ORAL Take 1 tablet by mouth once d* CHOLECALCIFEROL (VITAMIN D3) * Take 2,000 Units by mouth onc* OMEPRAZOLE 20 MG CAPSULE,VANE* Take 20 mg by mouth once dayana* VENLAFAXINE 75 MG TABLET Take 2 tablets by mouth once * MAGNESIUM OXIDE 400 MG (241.3* Take 1 tablet by mouth once d* CYANOCOBALAMIN (VIT B-12) 1,0* Take 1 tablet by mouth once d* DEXTROAMPHETAMINE-AMPHETAMINE* Take 1 capsule by mouth twice* CLOTRIMAZOLE 1 % TOPICAL CREAM as needed. ZOLPIDEM 5 MG TABLET Take 5 mg by mouth daily at b* ALBUTEROL SULFATE HFA 90 MCG/* Inhale 2 Puffs as instructed * CETIRIZINE 10 MG TABLET Take 1 tablet by mouth once d* CALCITRIOL 0.5 MCG CAPSULE take 3 capsules by mouth once* MECLIZINE 25 MG TABLET Take 1 tablet by mouth three * BUPROPION XL 150 MG TAB Take 1 tablet by mouth once d* BUPROPION XL 300 MG 24 HR TAB Take 1 tablet by mouth once d* ALPRAZOLAM 0.5 MG TABLET Take 1 tablet by mouth daily * COMPOUNDED PRESCRIPTION Tums chewable gummies (470 mg* Problem List As Of Date 11/26/2017 Noted Resolved PRIMARY HYPERPARATHYROIDISM [E21.0] INVALID FOR*01/07/2007 Dysmenorrhea [N94.6] 02/25/2009 Irregular Menstrual Cycle [N92.6] 02/25/2009 More... Depression [F32.9] Priority: C More... 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 Complex Endometrial Hyperplasia without Atypia *INVALID FOR*02/25/2009 More... LENO (generalized anxiety disorder) [F41.1] INVALID FOR* Priority: D Eating disorder NEC INVALID FOR*04/11/2014 Hirsutism [L68.0] INVALID FOR*04/11/2014 Vitamin B12 deficiency [E53.8] INVALID FOR* Onychia and paronychia of toe [L03.039] INVALID FOR*01/31/2014 Nonunion of fracture [YGJ0299] INVALID FOR*01/31/2014 Other complications due to other internal ortho*INVALID FOR*01/31/2014 Gastric bypass status for obesity [Z98.84] CKD (chronic kidney disease) stage 3, GFR 30-59*INVALID FOR* Priority: F More... ADHD (attention deficit hyperactivity disorder)*INVALID FOR* IFG (impaired fasting glucose) [R73.01] INVALID FOR*10/03/2016 Sleep apnea [G47.30] INVALID FOR* More... Pancreatic mass [K86.9] INVALID FOR* More... Hyperlipidemia [E78.5] INVALID FOR* More... Hypocalcemia [E83.51] INVALID FOR*10/01/2016 Priority: Severe More... Hypokalemia [E87.6] INVALID FOR*10/01/2016 Fracture of right clavicle [S42.001A] INVALID FOR*10/01/2016 PTSD (post-traumatic stress disorder) [F43.10] INVALID FOR* Sternoclavicular joint subluxation [S43.203A] INVALID FOR*10/01/2016 Subluxation of right sternoclavicular joint [S4*INVALID FOR* BASIL (obstructive sleep apnea) [G47.33] INVALID FOR* Obesity, Class III, BMI >= 40 [E66.01] INVALID FOR* More... Nephrolithiasis [N20.0] INVALID FOR* Essential hypertension [I10] INVALID FOR* Other instructions from your clinician: [facility] BU[facility] - LAB TEST INFORMATION HOURS: 7 am to 6 pm Wednesday ? Wednesday, 7 am -12 pm on Wednesday. The lab is located in [facility] on the first floor. There is a registration window at the lab, available 7 am to 3 pm Wednesday ? Wednesday. If registration is unavailable at the lab, you may register at the patient registration office near the front lobby of the hospital. ROUTINE ORDERS 60 days after they are entered. If you arrive for your lab testing after the orders have , you may be required to wait in the lab while they are reinstated. FUTURE ORDERS are lab tests to be completed on or after an ?expected? future date. These orders 60 days after the expected date. STANDING ORDERS are recurring orders with an expiration date. The interval will indicate how often the test should be completed. FASTING means nothing to eat or drink (except water) 10- 12 hours before your blood is drawn. CT / MRI / IVP If you have lab tests ordered for one of these radiology exams, please complete the blood work at least one day prior to the scheduled exam. PRESCRIPTION REFILL REQUESTS Request prescription refills through your [employer] account or contact your Pharmacy. Visit Notes: >> Justen Rubalcava WedNov 26, 2017 3:36 PM Status: Signed Patient presents with: Follow Up: Bi Lateral Eyes, Itching and dryness x 2 weeks Prescriptions ordered this encounter Disp Refills Start End FLUTICASONE 50 MCG/ACTUATION NASAL S* 16 g 5 11/26/2017 Sig: instill 1 spray into each nostril at bedtime as directed Medications Discontinued During This Encounter fluticasone (FLONASE) 50 mcg/actuati* 16 g 1 10/11/2017 11/26/2017 Sig: instill 1 spray into each nostril at bedtime as directed Disc: Reason for discontinue is not on file. Disposition: Return in about 6 months (around 05/26/2018). Follow-up and Disposition History Recorded Encounter Status:Closed by BRET JAY MD on 11/26/17 COMP METABOLIC PANEL Collected: 11/24/2017 Status: F Source: [place] 10:38 AM [facility] REPOSITORY TYPE CODE TESTS RESULT OUT OF REFERENCE UNITS RANGE LAB TP 6.3-8.0 g/dL Protein, Total 7.5 LAB ALB 3.9-4.9 g/dL Albumin 3.9 LAB CA 8.5-10.2 mg/dL Calcium, Total 8.8 LAB TBIL 0.2-1.3 mg/dL Bilirubin, Total 0.3 LAB ALKP 32-117 U/L Alkaline Phosphatase 85 LAB AST 13-35 U/L Low AST 12 LAB GLU 74-99 mg/dL Glucose 93 Result Comment: The [place] Diabetes Association (ADA) provides guidance for cutoff values for fasting glucose and random glucose. The ADA defines fasting as no caloric intake for at least 8 hours. Fas ting plasma glucose results between 100 to 125 mg/dL indicate increased risk for diabetes (prediabetes). Fasting plasma glucose results greater than or equal to 126 mg/dL meet the criteria for diagnosis of diabetes. In the absence of unequivocal hyperglycemia, results should be confirmed by repeat testing. In a patient with classic symptoms of hyperglycemia or hyperglycemic crisis, random plasma glucose results greater than or equal to 200 mg/dL meet the criteria for diagnosis of diabetes. Reference: Standards of Medical Care in Diabetes 2016, [place] [employer] Association. Diabetes Care. 2016.39(Suppl 1). LAB BUN 7-21 mg/dL BUN 16 LAB CRET 0.58-0.96 mg/dL Creatinine High 1.30 LAB NA 136-144 mmol/L Sodium 143 LAB K 3.7-5.1 mmol/L Low Potassium 3.6 LAB CL 97-105 mmol/L Chloride 105 LAB CO2 22-30 mmol/L CO2 24 LAB AGAP 9-18 mmol/L Anion Gap 14 LAB ALT 7-38 U/L Low ALT 6 LAB GFRAA eGFR- Amer. 52 LAB GFRNAA . eGFR-All Other Races 43 Result Comment: eGFR (Estimated GFR) Units of measure: mL/min/1.73 meters squared eGFR is derived from the reexpressed MDRD Study equation using the following parameters: serum creatinine, age, gender and race. The creatinine assay has been calibrated to be traceable to IDMS. An eGFR <60 mL/min/1.73m2 for >3 months is consistent with chronic kidney disease. Refer to KDOQI guidelines for clinical interpretation. In patients with unstable renal function, e.g. those with acute kidney injury, the eGFR may not accurately reflect actual GFR. Performed By: #### CMP #### [facility] [address] [facility] [phone] #### MG1 #### [facility] [address] [place] [address] MAGNESIUM Collected: 11/24/2017 Status: F Source: [place] 10:38 AM [facility] REPOSITORY TYPE CODE TESTS RESULT OUT OF REFERENCE UNITS RANGE LAB MG 1.7-2.3 mg/dL Magnesium 1.7 Performed By: #### CMP #### [facility] [address] [facility] [phone] #### MG1 #### [place] [address] TSH Collected: 11/24/2017 Status: F Source: [place] 10:38 AM [facility] REPOSITORY TYPE CODE TESTS RESULT OUT OF RANGE REFERENCE UNITS LAB TSH 0.400-5.500 uU/mL TSH 2.590 Performed By: #### TSH, HBA1C #### [place] [address] HEMOGLOBIN A1C Collected: 11/24/2017 Status: F Source: [place] 10:38 AM [facility] REPOSITORY TYPE CODE TESTS RESULT OUT OF REFERENCE UNITS RANGE LAB HGBA1C 4.3-5.6 % Hemoglobin A1c 5.4 LAB HBA0 mg/dL Est. Average Glucose 108 Result Comment: eAG: (Estimated average glucose) is a calculated value from HgbA1c and is sales representative gas service of the average blood glucose level in the last 2-3 month period. Performed By: #### TSH, HBA1C #### [place] [address] PROGRESS Observed: 11/24/2017 Status: COMPLETED Source: [place] 10:07 AM [facility] REPOSITORY HNO ID: [id number] Author: Grayson Solorzano MD Service: (none) Author Type: Physician Type: Progress Notes Filed: 11/28/2017 10:13 AM Note Text: Follow-up 52 year-old female, patient of Dr. Bret Jay, with MEN-1, impaired fasting glucose, postsurgical hypoparathyroidism, obesity, CKD3, history of bariatric surgery, and ADD with depression/anxiety. Medication list reviewed, reconciled. Cannot tolerate oral iron. She notes no recent paresthesias. Cannot tolerate sugar-free beverages (artificial sweeteners). Has regained weight in the past year. Sees a psychiatrist monthly. Pancreatic head nodule stable on CT in 02/2014, followed by Dr. Peter Sigala (last seen in 08/2017). Notes depression has been worse since a recent surgical procedure (repair of clavicular subluxation). CT was repeated in 04/2016, will be re-done at next appt with Dr. Sigala. She has been marijuana-free for several years. Has been working on losing weight, 10 pounds recently. Current Outpatient Prescriptions on File Prior to Visit: amphetamine-dextroamphetamine XR (ADDERALL XR) 20 mg 24 hr capsule Take 1 capsule by mouth twice daily for 31 days. fluticasone (FLONASE) 50 mcg/actuation nasal spray instill 1 spray into each nostril at bedtime as directed spironolactone (ALDACTONE) 100 mg tablet take 1 tablet by mouth once daily clotrimazole (LOTRIMIN, CLOTRIM) 1 % cream as needed. zolpidem (AMBIEN) 5 mg tablet Take 5 mg by mouth daily at bedtime. albuterol HFA (PROVENTIL HFA, VENTOLIN HFA) 90 mcg/actuation inhaler Inhale 2 Puffs as instructed every 6 hours. cetirizine (ZYRTEC) 10 mg tablet Take 1 tablet by mouth once daily as needed. calcitriol (ROCALTROL) 0.5 mcg capsule take 3 capsules by mouth once daily meclizine (ANTIVERT) 25 mg tab Take 1 tablet by mouth three times daily as needed (for dizziness). buPROPion XL (WELLBUTRIN XL) 150 mg 24 hr tablet Take 1 tablet by mouth once daily. (Psychiatrist) buPROPion XL (WELLBUTRIN XL) 300 mg 24 hr tablet Take 1 tablet by mouth once daily. cyanocobalamin (VITAMIN B-12) 1,000 mcg tab Take 1 tablet by mouth once daily. ALPRAZolam (XANAX) 0.5 mg tablet Take 1 tablet by mouth daily at bedtime. COMPOUNDED PRESCRIPTION Tums chewable gummies (470 mg calcium each) takes three PO tid Magnesium, vitamin D3, and Prilosec Review of patient's allergies indicates: Contrast Dye Rash Ferrous Gluconate GI Upset Comment:Nausea Morphine Rash Oxycontin (Oxycodon* Comment:Rash, red and swollen eyes, facial swelling PAST MEDICAL HX: MEN-1: Fam hx (07/02/2000): Mother with hyperparathyroidism and gastrinoma, sister with prolactinoma. Parathyroid (03/08/2000): hyperparathyroidism with mild hypercalcemia (10.6) and elevated intact PTH (156). (12/2005): 3.[address] Sigala (07/27/2006): autotransplantation into forearm of cryopreserved parathyroid Pituitary (2000): MRI in [place], [place] (Dr. Mcgrath), showed pituitary twice normal size, no tumor per pt. Prolactin=7.6 (07/01/2005): MRI pituitary here at [facility], read as normal Pancreas (): gastrin=68 pg/ml (0-115). Abdominal pain treated with carafate 1gm qd and prevacid 30 mg/d. No imaging done in past. (): pancreatic CT scan shows a 1.3 cm enhancing lesion in the medial pancreatic head adjacent to the superior mesenteric vein. It is unchanged from her scan done in June of 2005. (): pancreatic CT, 0.8 x 0.9 cm hyperdense noduleat head of pancreas, said to be stable (): pancreatic CT, A focal hyperdense nodule is seen in the head of the pancreas at sp 494. This is unchanged measuring approximately 9 x 10 mm in size. (10/07/09): pancreatic CT, 1.3 cm mass in head of pancreas, said to be stable in size (05/2012): pancreatic CT: 1.1-CM PANCREATIC/PERIPANCREATIC NODULE, STABLE SINCE 2007. X-ray (03/18/2000): DXA: arms only (over table weight limit): total wrist bmd=0.618, T=+1.05. Urine chem (): 24hrU Jl=616 mg/d (): 24hrU Ca=76.4 mg/d (): 24hrU Nc=856.8 mg/d Fracture left wrist as child, foot in 2010 Surgery (12/08/2005): 3-1/2-gland parathyroidectomy with parathyroid cryopreservation (07/27/2006): parathyroid autotransplantation left forearm PAST SURGICAL HISTORY Removal Gallbladder (Cholecystectomy) Incision Eardrum,Aspir,Gen Anesth (Myringotomy/tubes) Repair of Nasal Septum (Septoplasty) DANDc, Diag and/Or Therapeutic - 1991 (For excessive menstruation) DANDc, Diag and/Or Therapeutic - 1993, 2000, 2005 (x3) Egd W/O Or W/Seymour/Wash - 2005 Explore Parathyroid Glands - 12/08/2005 (3 3/4 parathyroid glans removed) Autotransplant, Parathyroid - 07/27/06 (left forearm) Gastric Bypass Hx (gastric sleeve) - 2006 Total Abdom Hysterectomy - 01/16/09 ([facility]) FAMILY HISTORY Problem Relation Age of Onset - Diabetes Mother due to surgery on pancreas - Genetic Mother MEN 1 - Cancer Mother liver - Emphysema Father bacterial pneumonia - Heart Maternal Grandmother - Cancer Paternal Grandmother uterine cancer - Heart Paternal Grandfather - Cervical Cancer Sister - Cancer Maternal Aunt lymphoma - Cancer Maternal Aunt lymphoma - Cancer Maternal Uncle brain - Hypertension Sister - Genetic Sister MEN 1 SOCIAL HISTORY 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 Uses Surgical for control. (GERSON) Review of systems: Patient notes no weight changes, fever, fatigue, weakness, change in balance or sensation, visual problems, hearing changes, dizziness, trouble swallowing, nasal difficulties, shortness of breath, chest pain, change in exertional tolerance, foot or leg problems, skin lesions, abdominal pain, diarrhea, constipation, urinary problems, incontinence, back pain, joint pains, anxiety, depression, insomnia, menstrual difficulties, breast lesions/pain/mass. Patient does report worse depression. (+) suicidal ideation but denies plan or intent to me and her mother today. Remainder of review of systems was unremarkable. BP 144/86 (BP Site: Left Arm, BP Position: Sitting, BP Cuff Size: Large Adult) Pulse 78 Ht 169.4 cm (5' 6.69) Wt 131.9 kg (290 lb 12.8 oz) LMP 02/01/2007 SpO2 98% BMI 45.97 kg/m? General appearance: Well-appearing, morbidly obese (BMI > 40) female, alert, in no acute distress, well-hydrated, well nourished. Weight up 15 pounds since 10/2015. Height down 1/2. Blood pressure mildly elevated Skin: Skin color, texture, turgor normal, no suspicious rashes or lesions Head: normocephalic, no masses, lesions, tenderness or abnormalities Eyes: Anicteric sclera. Pupils are equally round. Extraocular movements are intact. Ears: not examined Nose/Sinuses: Nares normal. No drainage or sinus tenderness. Oropharynx: Lips, mucosa, and tongue normal, teeth and gums not examined. Neck: Supple, no adenopathy; no visible thyroid enlargement. Well-healed parathyroidectomy incision line. Lungs: Breathing unlabored. Heart: RRR. No ectopy Abdomen: deferred Extremities: No deformities, edema, skin discoloration, clubbing or cyanosis. Good capillary refill. Musculoskeletal: Spine range of motion not tested. Muscular strength intact, No joint swelling, deformity, or tenderness Neuro: Gait normal. Sensation grossly intact. Results for THUY WHITE ( ) Ref. Range 08/23/2017 10:14 Calcium Latest Ref Range: 8.5 - 10.2 mg/dL 8.1 (L) Magnesium Latest Ref Range: 1.7 - 2.3 mg/dL 1.7 Phosphorus Latest Ref Range: 2.7 - 4.8 mg/dL 3.8 Gastrin Latest Ref Range: <115.0 pg/mL 253 (H) Chromogranin A Latest Ref Range: <98 ng/mL 188 (H) Somatostatin Latest Ref Range: ADULT: < OR = 30 pg/mL <21 VIP Latest Ref Range: 0 - 60 pg/mL <13 Insulin Latest Ref Range: 1 - 24 uU/mL 7.3 C-Peptide Latest Ref Range: 0.8 - 3.2 ng/mL 1.9 PTH, Intact Latest Ref Range: 15 - 65 pg/mL 3 (L) Prolactin Latest Ref Range: 4.5 - 26.8 ng/mL 10.9 Glucagon Latest Ref Range: <=208 ng/L 191 Proinsulin Latest Ref Range: <=8.0 pmol/L 3.8 Ref. Range 06/07/2017 16:15 Sodium Latest Ref Range: 136 - 144 mmol/L 133 (L) Potassium Latest Ref Range: 3.7 - 5.1 mmol/L 3.7 Chloride Latest Ref Range: 97 - 105 mmol/L 92 (L) CO2 Latest Ref Range: 22 - 30 mmol/L 29 BUN Latest Ref Range: 7 - 21 mg/dL 20 Creatinine Latest Ref Range: 0.58 - 0.96 mg/dL 1.55 (H) Glucose Latest Ref Range: 74 - 99 mg/dL 120 (H) Protein, Total Latest Ref Range: 6.3 - 8.0 g/dL 7.8 Calcium Latest Ref Range: 8.5 - 10.2 mg/dL 10.2 Magnesium Latest Ref Range: 1.7 - 2.3 mg/dL 1.9 Albumin Latest Ref Range: 3.9 - 4.9 g/dL 3.5 (L) Bilirubin, Total Latest Ref Range: 0.2 - 1.3 mg/dL 0.3 Kayleen Phosphatase Latest Ref Range: 32 - 117 U/L 88 ALT Latest Ref Range: 7 - 38 U/L 7 AST Latest Ref Range: 13 - 35 U/L 12 (L) eGFR-All Others Latest Units: . 35 Assessment: 1) B12 deficiency - continue oral B12 2) Pancreatic tumor stable on CT - howard of follow-up imaging per Dr. Sigala 3) CKD, stage 3 - check CMP 4) Postsurgical hypoparathyroidism - check CMP and magnesium on Rocaltrol + vitamin D3 + calcium supplement 6) ADHD - continue Adderall XR, has done well 7) Obstructive sleep apnea - doesn't use the CPAP. 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 Stable calcium levels, and pancreatic lesion is stable. 9) Depression - worse, will increase Effexor dose today, she will be seeing her psychiatrist soon 10) Morbid obesity - urged continued weight loss efforts Plan: ? Increase Effexor to 75 mg TWO pills daily. ? Get labs done at [facility] - CMP, magnesium ? Will call with results. ? See me again in 12 months. Grayson Solorzano MD CNOV Observed: 11/24/2017 Status: COMPLETED Source: [place] 10:05 AM [facility] REPOSITORY Office Visit (ENDMED) THUY WHITE ([id number]) 1965 F [place] Date Time Provider Department 11/24/17 10:05 AM GRAYSON SOLORZANO During your visit today, we recorded the following information about you: Pulse Blood pressure Weight Height 78/minute 144/86 131.9 kg 1.694 m Grayson Solorzano MD, MD 11/28/2017 10:13 AM Signed Follow-up 52 year-old female, patient of Dr. Bret Jay, with MEN-1, impaired fasting glucose, postsurgical hypoparathyroidism, obesity, CKD3, history of bariatric surgery, and ADD with depression/anxiety. Medication list reviewed, reconciled. Cannot tolerate oral iron. She notes no recent paresthesias. Cannot tolerate sugar-free beverages (artificial sweeteners). Has regained weight in the past year. Sees a psychiatrist monthly. Pancreatic head nodule stable on CT in 02/2014, followed by Dr. Peter Sigala (last seen in 08/2017). Notes depression has been worse since a recent surgical procedure (repair of clavicular subluxation). CT was repeated in 04/2016, will be re-done at next appt with Dr. Sigala. She has been marijuana-free for several years. Has been working on losing weight, 10 pounds recently. Current Outpatient Prescriptions on File Prior to Visit: amphetamine-dextroamphetamine XR (ADDERALL XR) 20 mg 24 hr capsule Take 1 capsule by mouth twice daily for 31 days. fluticasone (FLONASE) 50 mcg/actuation nasal spray instill 1 spray into each nostril at bedtime as directed spironolactone (ALDACTONE) 100 mg tablet take 1 tablet by mouth once daily clotrimazole (LOTRIMIN, CLOTRIM) 1 % cream as needed. zolpidem (AMBIEN) 5 mg tablet Take 5 mg by mouth daily at bedtime. albuterol HFA (PROVENTIL HFA, VENTOLIN HFA) 90 mcg/actuation inhaler Inhale 2 Puffs as instructed every 6 hours. cetirizine (ZYRTEC) 10 mg tablet Take 1 tablet by mouth once daily as needed. calcitriol (ROCALTROL) 0.5 mcg capsule take 3 capsules by mouth once daily meclizine (ANTIVERT) 25 mg tab Take 1 tablet by mouth three times daily as needed (for dizziness). buPROPion XL (WELLBUTRIN XL) 150 mg 24 hr tablet Take 1 tablet by mouth once daily. (Psychiatrist) buPROPion XL (WELLBUTRIN XL) 300 mg 24 hr tablet Take 1 tablet by mouth once daily. cyanocobalamin (VITAMIN B-12) 1,000 mcg tab Take 1 tablet by mouth once daily. ALPRAZolam (XANAX) 0.5 mg tablet Take 1 tablet by mouth daily at bedtime. COMPOUNDED PRESCRIPTION Tums chewable gummies (470 mg calcium each) takes three PO tid Magnesium, vitamin D3, and Prilosec Review of patient's allergies indicates: Contrast Dye Rash Ferrous Gluconate GI Upset Comment:Nausea Morphine Rash Oxycontin (Oxycodon* Comment:Rash, red and swollen eyes, facial swelling PAST MEDICAL HX: MEN-1: Fam hx (07/02/2000): Mother with hyperparathyroidism and gastrinoma, sister with prolactinoma. Parathyroid (03/08/2000): hyperparathyroidism with mild hypercalcemia (10.6) and elevated intact PTH (156). (12/2005): 3.[address] Sigala (07/27/2006): autotransplantation into forearm of cryopreserved parathyroid Pituitary (2000): MRI in [place], [place] (Dr. Mcgrath), showed pituitary twice normal size, no tumor per pt. Prolactin=7.6 (07/01/2005): MRI pituitary here at [facility], read as normal Pancreas (): gastrin=68 pg/ml (0-115). Abdominal pain treated with carafate 1gm qd and prevacid 30 mg/d. No imaging done in past. (): pancreatic CT scan shows a 1.3 cm enhancing lesion in the medial pancreatic head adjacent to the superior mesenteric vein. It is unchanged from her scan done in June of 2005. (): pancreatic CT, 0.8 x 0.9 cm hyperdense noduleat head of pancreas, said to be stable (): pancreatic CT, A focal hyperdense nodule is seen in the head of the pancreas at sp 494. This is unchanged measuring approximately 9 x 10 mm in size. (10/07/09): pancreatic CT, 1.3 cm mass in head of pancreas, said to be stable in size (05/2012): pancreatic CT: 1.1-CM PANCREATIC/PERIPANCREATIC NODULE, STABLE SINCE 2007. X-ray (03/18/2000): DXA: arms only (over table weight limit): total wrist bmd=0.618, T=+1.05. Urine chem (): 24hrU Dh=970 mg/d (): 24hrU Ca=76.4 mg/d (): 24hrU Rx=949.8 mg/d Fracture left wrist as child, foot in 2010 Surgery (12/08/2005): 3-1/2-gland parathyroidectomy with parathyroid cryopreservation (07/27/2006): parathyroid autotransplantation left forearm PAST SURGICAL HISTORY Removal Gallbladder (Cholecystectomy) Incision Eardrum,Aspir,Gen Anesth (Myringotomy/tubes) Repair of Nasal Septum (Septoplasty) DANDc, Diag and/Or Therapeutic - 1991 (For excessive menstruation) DANDc, Diag and/Or Therapeutic - 1993, 2000, 2005 (x3) Egd W/O Or W/Seymour/Wash - 2005 Explore Parathyroid Glands - 12/08/2005 (3 3/4 parathyroid glans removed) Autotransplant, Parathyroid - 07/27/06 (left forearm) Gastric Bypass Hx (gastric sleeve) - 2006 Total Abdom Hysterectomy - 01/16/09 ([facility]) FAMILY HISTORY Problem Relation Age of Onset - Diabetes Mother due to surgery on pancreas - Genetic Mother MEN 1 - Cancer Mother liver - Emphysema Father bacterial pneumonia - Heart Maternal Grandmother - Cancer Paternal Grandmother uterine cancer - Heart Paternal Grandfather - Cervical Cancer Sister - Cancer Maternal Aunt lymphoma - Cancer Maternal Aunt lymphoma - Cancer Maternal Uncle brain - Hypertension Sister - Genetic Sister MEN 1 SOCIAL HISTORY 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 Uses Surgical for control. (GERSON) Review of systems: Patient notes no weight changes, fever, fatigue, weakness, change in balance or sensation, visual problems, hearing changes, dizziness, trouble swallowing, nasal difficulties, shortness of breath, chest pain, change in exertional tolerance, foot or leg problems, skin lesions, abdominal pain, diarrhea, constipation, urinary problems, incontinence, back pain, joint pains, anxiety, depression, insomnia, menstrual difficulties, breast lesions/pain/mass. Patient does report worse depression. (+) suicidal ideation but denies plan or intent to me and her mother today. Remainder of review of systems was unremarkable. BP 144/86 (BP Site: Left Arm, BP Position: Sitting, BP Cuff Size: Large Adult) Pulse 78 Ht 169.4 cm (5' 6.69) Wt 131.9 kg (290 lb 12.8 oz) LMP 02/01/2007 SpO2 98% BMI 45.97 kg/m? General appearance: Well-appearing, morbidly obese (BMI > 40) female, alert, in no acute distress, well-hydrated, well nourished. Weight up 15 pounds since 10/2015. Height down 1/2. Blood pressure mildly elevated Skin: Skin color, texture, turgor normal, no suspicious rashes or lesions Head: normocephalic, no masses, lesions, tenderness or abnormalities Eyes: Anicteric sclera. Pupils are equally round. Extraocular movements are intact. Ears: not examined Nose/Sinuses: Nares normal. No drainage or sinus tenderness. Oropharynx: Lips, mucosa, and tongue normal, teeth and gums not examined. Neck: Supple, no adenopathy; no visible thyroid enlargement. Well-healed parathyroidectomy incision line. Lungs: Breathing unlabored. Heart: RRR. No ectopy Abdomen: deferred Extremities: No deformities, edema, skin discoloration, clubbing or cyanosis. Good capillary refill. Musculoskeletal: Spine range of motion not tested. Muscular strength intact, No joint swelling, deformity, or tenderness Neuro: Gait normal. Sensation grossly intact. Results for THUY WHITE ( ) Ref. Range 08/23/2017 10:14 Calcium Latest Ref Range: 8.5 - 10.2 mg/dL 8.1 (L) Magnesium Latest Ref Range: 1.7 - 2.3 mg/dL 1.7 Phosphorus Latest Ref Range: 2.7 - 4.8 mg/dL 3.8 Gastrin Latest Ref Range: <115.0 pg/mL 253 (H) Chromogranin A Latest Ref Range: <98 ng/mL 188 (H) Somatostatin Latest Ref Range: ADULT: < OR = 30 pg/mL <21 VIP Latest Ref Range: 0 - 60 pg/mL <13 Insulin Latest Ref Range: 1 - 24 uU/mL 7.3 C-Peptide Latest Ref Range: 0.8 - 3.2 ng/mL 1.9 PTH, Intact Latest Ref Range: 15 - 65 pg/mL 3 (L) Prolactin Latest Ref Range: 4.5 - 26.8 ng/mL 10.9 Glucagon Latest Ref Range: <=208 ng/L 191 Proinsulin Latest Ref Range: <=8.0 pmol/L 3.8 Ref. Range 06/07/2017 16:15 Sodium Latest Ref Range: 136 - 144 mmol/L 133 (L) Potassium Latest Ref Range: 3.7 - 5.1 mmol/L 3.7 Chloride Latest Ref Range: 97 - 105 mmol/L 92 (L) CO2 Latest Ref Range: 22 - 30 mmol/L 29 BUN Latest Ref Range: 7 - 21 mg/dL 20 Creatinine Latest Ref Range: 0.58 - 0.96 mg/dL 1.55 (H) Glucose Latest Ref Range: 74 - 99 mg/dL 120 (H) Protein, Total Latest Ref Range: 6.3 - 8.0 g/dL 7.8 Calcium Latest Ref Range: 8.5 - 10.2 mg/dL 10.2 Magnesium Latest Ref Range: 1.7 - 2.3 mg/dL 1.9 Albumin Latest Ref Range: 3.9 - 4.9 g/dL 3.5 (L) Bilirubin, Total Latest Ref Range: 0.2 - 1.3 mg/dL 0.3 Kayleen Phosphatase Latest Ref Range: 32 - 117 U/L 88 ALT Latest Ref Range: 7 - 38 U/L 7 AST Latest Ref Range: 13 - 35 U/L 12 (L) eGFR-All Others Latest Units: . 35 Assessment: 1) B12 deficiency - continue oral B12 2) Pancreatic tumor stable on CT - howard of follow-up imaging per Dr. Sigala 3) CKD, stage 3 - check CMP 4) Postsurgical hypoparathyroidism - check CMP and magnesium on Rocaltrol + vitamin D3 + calcium supplement 6) ADHD - continue Adderall XR, has done well 7) Obstructive sleep apnea - doesn't use the CPAP. 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 Stable calcium levels, and pancreatic lesion is stable. 9) Depression - worse, will increase Effexor dose today, she will be seeing her psychiatrist soon 10) Morbid obesity - urged continued weight loss efforts Plan: ? Increase Effexor to 75 mg TWO pills daily. ? Get labs done at [facility] - CMP, magnesium ? Will call with results. ? See me again in 12 months. MD Grayson Hansen MD, MD 11/24/2017 10:22 AM Signed Increase Effexor to 75 mg TWO pills daily. Get labs done at [facility]. Will call with results. See me again in 12 months. Referring Provider: GRAYSON SOLORZANO [[id number]] Allergies As of Date: 11/24/2017 Noted Allergy Reaction CONTRAST DYE 10/22/2007 2 - Rash FERROUS GLUCONATE 06/14/2012 8 - GI Upset Comments: Nausea MORPHINE 05/14/2005 2 - Rash OXYCONTIN (OXYCODONE HCL) 01/07/2007 2 - Rash 7 - Swelling Comments: Rash, red and swollen eyes, facial swelling PROPRANOLOL 04/02/2017 9 - Itching Date Reviewed: 11/24/2017 Reviewed by: Kaye Siu Ma - Fully Assessed Reason for Visit: MEN1 [Other] Primary Visit Diagnosis:Postsurgical hypoparathyroidism (HCC) [E89.2] Other Visit Diagnoses:CKD (chronic kidney disease) stage 3, GFR 30-59 ml/min ([facility]) [N18.3] Mixed hyperlipidemia [E78.2] 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] Obesity, Class III, BMI 40-49.9 (morbid obesity) ([facility]) [E66.01] Vitamin B12 deficiency [E53.8] Essential hypertension [I10] Depression, unspecified depression type [F32.9] Order(s):venlafaxine (EFFEXOR) 75 mg tabletTake 2 tablets by mouth once daily.Disp: 60 tabletRfl: 3 COMP METABOLIC PANEL [SQCMP] Order #: [id number] FUTURE MAGNESIUM BLD [SQMG1] Order #: [id number] FUTURE magnesium oxide (MAG-OX) 400 mg (241.3 mg magnesium) tabletTake 1 tablet by mouth once daily.Disp: 90 tabletRfl: 3 cyanocobalamin (VITAMIN B-12) 1,000 mcg tabTake 1 tablet by mouth once daily.Disp: 90 tabletRfl: 3 Prescriptions as of 11/24/2017 Sig: MAGNESIUM CITRATE ORAL Take 1 tablet by mouth once d* CHOLECALCIFEROL (VITAMIN D3) * Take 2,000 Units by mouth onc* OMEPRAZOLE 20 MG CAPSULE,VANE* Take 20 mg by mouth once dayana* VENLAFAXINE 75 MG TABLET Take 2 tablets by mouth once * DEXTROAMPHETAMINE-AMPHETAMINE* Take 1 capsule by mouth twice* X FLUTICASONE 50 MCG/ACTUATION * instill 1 spray into each nos* X SPIRONOLACTONE 100 MG TABLET take 1 tablet by mouth once d* CLOTRIMAZOLE 1 % TOPICAL CREAM as needed. ZOLPIDEM 5 MG TABLET Take 5 mg by mouth daily at b* ALBUTEROL SULFATE HFA 90 MCG/* Inhale 2 Puffs as instructed * CETIRIZINE 10 MG TABLET Take 1 tablet by mouth once d* CALCITRIOL 0.5 MCG CAPSULE take 3 capsules by mouth once* MECLIZINE 25 MG TABLET Take 1 tablet by mouth three * BUPROPION XL 150 MG TAB Take 1 tablet by mouth once d* BUPROPION XL 300 MG 24 HR TAB Take 1 tablet by mouth once d* ALPRAZOLAM 0.5 MG TABLET Take 1 tablet by mouth daily * COMPOUNDED PRESCRIPTION Tums chewable gummies (470 mg* MAGNESIUM OXIDE 400 MG (241.3* Take 1 tablet by mouth once d* CYANOCOBALAMIN (VIT B-12) 1,0* Take 1 tablet by mouth once d* Medication notes this encounter COMPOUNDED PRESCRIPTION >> Kaye Siu Ma 11/24/2017 10:11 AM >> KAYE SIU MA Wed Nov 24, 2017 10:11 AM PRN Problem List As Of Date 11/24/2017 Noted Resolved PRIMARY HYPERPARATHYROIDISM [E21.0] INVALID FOR*01/07/2007 Dysmenorrhea [N94.6] 02/25/2009 Irregular Menstrual Cycle [N92.6] 02/25/2009 More... Depression [F32.9] Priority: C More... 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 Complex Endometrial Hyperplasia without Atypia *INVALID FOR*02/25/2009 More... LENO (generalized anxiety disorder) [F41.1] INVALID FOR* Priority: D Eating disorder NEC INVALID FOR*04/11/2014 Hirsutism [L68.0] INVALID FOR*04/11/2014 Vitamin B12 deficiency [E53.8] INVALID FOR* Onychia and paronychia of toe [L03.039] INVALID FOR*01/31/2014 Nonunion of fracture [TON5876] INVALID FOR*01/31/2014 Other complications due to other internal ortho*INVALID FOR*01/31/2014 Gastric bypass status for obesity [Z98.84] CKD (chronic kidney disease) stage 3, GFR 30-59*INVALID FOR* Priority: F More... ADHD (attention deficit hyperactivity disorder)*INVALID FOR* IFG (impaired fasting glucose) [R73.01] INVALID FOR*10/03/2016 Sleep apnea [G47.30] INVALID FOR* More... Pancreatic mass [K86.9] INVALID FOR* More... Hyperlipidemia [E78.5] INVALID FOR* More... Hypocalcemia [E83.51] INVALID FOR*10/01/2016 Priority: Severe More... Hypokalemia [E87.6] INVALID FOR*10/01/2016 Fracture of right clavicle [S42.001A] INVALID FOR*10/01/2016 PTSD (post-traumatic stress disorder) [F43.10] INVALID FOR* Sternoclavicular joint subluxation [S43.203A] INVALID FOR*10/01/2016 Subluxation of right sternoclavicular joint [S4*INVALID FOR* BASIL (obstructive sleep apnea) [G47.33] INVALID FOR* Obesity, Class III, BMI >= 40 [E66.01] INVALID FOR* More... Nephrolithiasis [N20.0] INVALID FOR* Other instructions from your clinician: Increase Effexor to 75 mg TWO pills daily. Get labs done at [facility]. Will call with results. See me again in 12 months. Prescriptions ordered this encounter Disp Refills Start End VENLAFAXINE 75 MG TABLET 60 t* 3 11/24/2017 Route: ORAL Sig: Take 2 tablets by mouth once daily. MAGNESIUM OXIDE 400 MG (241.3 MG MAG* 90 t* 3 11/24/2017 Route: ORAL Sig: Take 1 tablet by mouth once daily. CYANOCOBALAMIN (VIT B-12) 1,000 MCG * 90 t* 3 11/24/2017 Route: ORAL Sig: Take 1 tablet by mouth once daily. Medications Discontinued During This Encounter venlafaxine XR (EFFEXOR XR) 150 mg 2* 90 c* 3 06/06/2015 11/24/2017 Route: ORAL Sig: Take 1 capsule by mouth once daily. Disc: Course of therapy completed docusate sodium (COLACE) 100 mg caps* 60 c* 1 10/30/2016 11/24/2017 Class: Print RX Route: ORAL Sig: Take 1 capsule by mouth twice daily as needed for Constipation. Patient not taking: Reported on 08/30/2017 Disc: Course of therapy completed OMEGA3/DHA/EPA/FISH OIL/VIT D3 (OMEG* 11/24/2017 Class: Historical Med Route: ORAL Sig: Take 2,000 Units by mouth once daily. two tablets daily Disc: Course of therapy completed Omeprazole 40 mg capsule 30 c* 11 06/03/2017 11/24/2017 Route: ORAL Sig: Take 1 capsule by mouth once daily. Disc: Course of therapy completed methylPREDNISolone (MEDROL, DANICA,) 4 * 1 Pa* 0 06/07/2017 11/24/2017 Class: Print RX Sig: Take by mouth. As directed on package Patient not taking: Reported on 08/30/2017 Disc: Course of therapy completed benzonatate (TESSALON PERLE) 100 mg * 30 c* 0 06/22/2017 11/24/2017 Route: ORAL Sig: Take 2 capsules by mouth three times daily as needed. Patient not taking: Reported on 08/30/2017 Disc: Course of therapy completed topiramate (TOPAMAX) 25 mg tablet 60 t* 1 07/30/2017 11/24/2017 Sig: take 1 tablet by mouth twice a day Patient not taking: Reported on 08/30/2017 Disc: Course of therapy completed venlafaxine (EFFEXOR) 75 mg tablet 11/24/2017 Class: Historical Med Route: ORAL Sig: Take 75 mg by mouth once daily. Disc: Reason for discontinue is not on file. cyanocobalamin (VITAMIN B-12) 1,000 * 90 t* 3 08/25/2016 11/24/2017 Route: ORAL Sig: Take 1 tablet by mouth once daily. Disc: Duplicate Entry Follow-up and Disposition History Recorded Encounter Status:Closed by GRAYSON SOLORZANO MD on 11/28/17 CNPN Observed: 10/27/2017 Status: COMPLETED Source: [place] 12:00 AM [facility] REPOSITORY Telephone (IMMDNA) THUY WHITE ([id number]) 1965 F UPA Date Time Provider Department 10/27/17 BRET JAY During your visit today, we recorded the following information about you: Justen Rubalcava 10/27/2017 3:47 PM Signed Received Labs from [facility]. Placed in provider's inbox for review. Route to [place] for scanning Bret Jay MD 10/28/2017 6:21 AM Signed Reviewed. Calcium Oxylate stone. Send to scanning MD Justen Bravo 11/01/2017 11:58 AM Signed Sent to Scanning Allergies As of Date: 10/27/2017 Noted Allergy Reaction CONTRAST DYE 10/22/2007 2 - Rash FERROUS GLUCONATE 06/14/2012 8 - GI Upset Comments: Nausea MORPHINE 05/14/2005 2 - Rash OXYCONTIN (OXYCODONE HCL) 01/07/2007 2 - Rash 7 - Swelling Comments: Rash, red and swollen eyes, facial swelling PROPRANOLOL 04/02/2017 9 - Itching Date Reviewed: 08/30/2017 Reviewed by: Chikis Rutledge - Fully Assessed Reason for Visit: Results, Lab [1201] Cmt: (Stone Analysis) [facility] 08.0615 Reason For Visit History Recorded Prescriptions as of 10/27/2017 Sig: DEXTROAMPHETAMINE-AMPHETAMINE* Take 1 capsule by mouth twice* FLUTICASONE 50 MCG/ACTUATION * instill 1 spray into each nos* SPIRONOLACTONE 100 MG TABLET take 1 tablet by mouth once d* CLOTRIMAZOLE 1 % TOPICAL CREAM as needed. ZOLPIDEM 5 MG TABLET Take 5 mg by mouth daily at b* TOPIRAMATE 25 MG TABLET take 1 tablet by mouth twice * Patient not taking: Reported on 08/30/2017 BENZONATATE 100 MG CAPSULE Take 2 capsules by mouth thre* Patient not taking: Reported on 08/30/2017 METHYLPREDNISOLONE 4 MG TABLE* Take by mouth. As directed on* Patient not taking: Reported on 08/30/2017 ALBUTEROL SULFATE HFA 90 MCG/* Inhale 2 Puffs as instructed * CETIRIZINE 10 MG TABLET Take 1 tablet by mouth once d* OMEPRAZOLE 40 MG CAPSULE,VANE* Take 1 capsule by mouth once * CALCITRIOL 0.5 MCG CAPSULE take 3 capsules by mouth once* MECLIZINE 25 MG TABLET Take 1 tablet by mouth three * OMEGA-3 + VITAMIN D3 ORAL Take 2,000 Units by mouth onc* DOCUSATE SODIUM 100 MG CAPSULE Take 1 capsule by mouth twice* Patient not taking: Reported on 08/30/2017 BUPROPION XL 150 MG TAB Take 1 tablet by mouth once d* BUPROPION XL 300 MG 24 HR TAB Take 1 tablet by mouth once d* CYANOCOBALAMIN (VIT B-12) 1,0* Take 1 tablet by mouth once d* ALPRAZOLAM 0.5 MG TABLET Take 1 tablet by mouth daily * Patient not taking: Reported on 08/30/2017 COMPOUNDED PRESCRIPTION Tums chewable gummies (470 mg* VENLAFAXINE ER 150 MG CAPSULE* Take 1 capsule by mouth once * Problem List As Of Date 10/27/2017 Noted Resolved PRIMARY HYPERPARATHYROIDISM [E21.0] INVALID FOR*01/07/2007 Morbid obesity (HCC) [E66.01] More... Dysmenorrhea [N94.6] 02/25/2009 Irregular Menstrual Cycle [N92.6] 02/25/2009 More... Depression [F32.9] Priority: C More... 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 Complex Endometrial Hyperplasia without Atypia *INVALID FOR*02/25/2009 More... LENO (generalized anxiety disorder) [F41.1] INVALID FOR* Priority: D Eating disorder NEC INVALID FOR*04/11/2014 Hirsutism [L68.0] INVALID FOR*04/11/2014 Vitamin B12 deficiency [E53.8] INVALID FOR* Onychia and paronychia of toe [L03.039] INVALID FOR*01/31/2014 Nonunion of fracture [FID9689] INVALID FOR*01/31/2014 Other complications due to other internal ortho*INVALID FOR*01/31/2014 Gastric bypass status for obesity [Z98.84] CKD (chronic kidney disease) stage 3, GFR 30-59*INVALID FOR* Priority: F More... ADHD (attention deficit hyperactivity disorder)*INVALID FOR* IFG (impaired fasting glucose) [R73.01] INVALID FOR*10/03/2016 Sleep apnea [G47.30] INVALID FOR* More... Pancreatic mass [K86.9] INVALID FOR* More... Hyperlipidemia [E78.5] INVALID FOR* More... Hypocalcemia [E83.51] INVALID FOR*10/01/2016 Priority: Severe More... Hypokalemia [E87.6] INVALID FOR*10/01/2016 Fracture of right clavicle [S42.001A] INVALID FOR*10/01/2016 PTSD (post-traumatic stress disorder) [F43.10] INVALID FOR* Sternoclavicular joint subluxation [S43.203A] INVALID FOR*10/01/2016 Subluxation of right sternoclavicular joint [S4*INVALID FOR* Attention deficit hyperactivity disorder (ADHD)*INVALID FOR* BASIL (obstructive sleep apnea) [G47.33] INVALID FOR* Encounter Status:Closed by JAYDA FISHER SRI on 11/01/17 OPERATIVE REPORT Observed: 10/19/2017 Status: F Source: [place] 11:22 AM [facility] REPOSITORY [facility] Medical Records Department [address] [place] [address] Operative Report 10/19/17 1119 MR#: [id number] Acct: [id number] Name: THUY WHITE Rep #: [id number] : 1965 52 From: Yesi Pina MD PCP: Bert Jay MD Status: REG [facility] Y Location: [place] [address] Problem List (1) Ureteral calculus Status: Acute Report of Operation Date of Procedure: 10/19/17 Pre-Operative Diagnosis: right ureteral stone Post-Operative Diagnosis: same Surgery/Procedure Performed:: cystoscopy, right ureteroscopy, laser lithotripsy, stone basket extraction, right ureteral stent insertion Description of Surgical Findings:: stone seen at the UO, lasered and removed. no complications. 6 x 24cm stent left with string. electoral officer: Yesi Pina Type of Anesthesia:: General Special Medications: ancef 3 gm Specimen's removed: stone fragment Estimated Blood Loss (mL): 2cc Description of Procedure: The patient is a 52-year-old female who developed a right distal ureteral calculus was seen in the office for definitive treatment. After discussing all the risks benefits and alternatives she agreed to proceed with surgical intervention. The patient was taken to the operating room placed on the operating room table anesthesia monitored the head neck area IV access and vital signs throughout the case. Once anesthesia was a probably administered she was placed into dorsal lithotomy position was prepped and draped in usual sterile fashion. A cystourethroscopy was then performed revealing no evidence of tumor mass or bladder mucosal abnormality. The right ureteral orifice was clearly identified and intubated with a 0.035 Glidewire. Using the additional half of a 0.025 guidewire access was obtained to the distal ureteral orifice and the stone was clearly visible approximately 6 mm in size. It was then lasered using a holmium laser fiber into small fragments which were then stone basket retrieved and sent for analysis. Ureteroscopy continued to the proximal ureter were no further stone fragments were identified. At this time using the 0.035 Glidewire a 6 x 24 cm double-J stent was placed with curling achieved in the right renal pelvis and in the urinary bladder. The string was left intact and was secured to the right inner thigh using Steri-Strips. She was awakened and taken to recovery room in good condition. There were no complications during this procedure. Grafts/Implants Used: 6x24cm double J stent - Complications none - Admit VTE Documentation VTE Present on Admission: Yes VTE Mechan Device Prophylaxis: SCD's VTE Pharm Prophylaxis ordered?: No Reason prophylaxis not ordered:: Treatment Not Indicated 10/19/17 1122 <Electronically signed by eYsi Pina MD> Date Yesi Pina MD CC: Yesi Pina MD; Bret Jay MD Signed DISCHARGE INSTRUCTION Observed: 10/19/2017 Status: F Source: FALSE [place] 11:10 AM [facility] REPOSITORY [facility] Medical Records Department [facility] [place] [address] Instructions for Home/Discharge Instructions 10/19/17 1107 MR#: [id number] Acct: [id number] Name: THUY WHITE Rep #: [id number] : 1965 52 From: Yesi Pina MD PCP: Bret Jay MD Status: REG [facility] Discharge Diet: No Restrictions Discharge Activity: Return to Normal Activity, May not drive while taking narcotic pain medications. Call your doctor if you observe: Fever of 101 or Higher, Inability to urinate, Inability to have a bowel movement, Shortness of breath, Chest pain, Calf discomfort, Uncontrolled pain Additional Dressing/Incision Instructions:: pull stent out using string on morning. Allergies/Adverse Reactions: Allergies Iodinated Contrast- Oral and IV Dye [DYEE] Allergy (Verified 10/12/17 10:03) Rash iron Adverse Reaction (Verified 10/12/17 10:03) Other ABD PAIN morphine Adverse Reaction (Verified 10/12/17 10:03) Rash Medications to take at Discharge Dextroamphetamine/Amphetamine [Adderall 20 mg Tablet] 20 mg PO DAILY 03/06/16 Venlafaxine XR [Effexor Xr] 75 mg PO DAILY 03/06/16 buPROPion XL [Wellbutrin Xl] 150 mg PO DAILY 03/06/16 buPROPion XL [Wellbutrin Xl] 300 mg PO DAILY 03/06/16 Cholecalciferol (Vitamin D3) [Vitamin D3] 2,000 unit PO DAILY 09/16/17 Cyanocobalamin [Vitamin B12] 1,000 mcg PO DAILY@0800 09/16/17 Omeprazole [Prilosec] 20 mg PO DAILY 09/16/17 Zolpidem Tartrate [Ambien] 5 mg PO QHS PRN PRN 10/03/17 Calcitriol [Rocaltrol] 0.5 mcg PO DAILY 10/12/17 Cetirizine HCl [Allergy Relief] 10 mg PO DAILY 10/12/17 Magnesium 250 mg PO DAILY 10/12/17 Spironolactone [Aldactone] 100 mg PO DAILY 10/12/17 Cephalexin [Keflex] 500 mg PO Q12 3 Days #6 cap 10/19/17 Oxycodone HCl/Acetaminophen [Percocet 5/325] 2 tab PO Q6H PRN PRN 2 Days #10 tab 10/19/17 The following prescriptions were given: Oxycodone HCl/Acetaminophen [Percocet 5/325] 2 tab PO Q6H PRN PRN 2 Days #10 tab PRN Reason: Pain Cephalexin [Keflex] 500 mg PO Q12 3 Days #6 cap Primary Care Physician: Bret Jay MD [Primary Care Provider] - Test Results: Test results from this visit will be discussed in further detail at your follow-up appointment, if applicable. Please Follow Up With: Yesi Pina MD When: in 2-3 weeks, call for appt 10/19/17 1110 <Electronically signed by Yesi Pina MD> Date Yesi Pina MD CC: Bret Jay MD CALCULI/STONE Observed: 10/19/2017 Status: F Source: [place] 9:40 AM [facility] REPOSITORY Patient: THUY WHITE : 1965 (52/F) Acct Num: [id number] Phys: Yesi Pina MD Unit Num: [id number] Loc: [facility] Specimen: [id number] Received: 10/19/17 - 1203 Spec Type: Calculi TISSUES TISSUES: CALCULI COMMENT The calculus is submitted in its entirety for chemical stone analysis. The results from this study will be reported separately. GROSS DIAGNOSIS Fragments of stone, clinically calculus of ureter submitted for analysis. SJ:jerrod 10/19/17 GROSS DESCRIPTION Received in fixative is one container labeled with the patient's name and designated renal calculi. The specimen consists of two fragments of mendiola stone each measuring 0.1 cm in greatest dimension. The entire specimen is submitted for stone analysis. / SJ:jerrod 10/19/17 CPT: 80212 HEADER OPERATION: Cysto, ureteroscopy, retro, laser, stent PRE-OP DIAGNOSIS: Calculus of ureter TISSUE SUBMITTED: Renal calculus Signed Trevor Hernández 10/20/17 <signature on file> Performed By: #### PCALC #### [facility] [address] [place] [address]. [place], [address] CALCULI, URINARY W / Collected: 10/19/2017 Status: F Source: [place] PHOTO 9:40 AM [facility] REPOSITORY TYPE CODE TESTS RESULT OUT OF RANGE REFERENCE UNITS LAB L3650.0200 . Normal COLOR [place] LAB L3650.0300 . mm Normal SIZE Comment Result Comment: Specimen received as whole stones. LAB L3650.0400 . mg Normal WEIGHT 6.8 LAB L3650.0500 . Normal . Comment Result Comment: Percentage (Represents the % composition) LAB L3650.0600 . % CA OXAL DIHYDR 77 Normal LAB L3650.0700 . % CA OXAL 20 Normal [place] LAB L3650.0800 . % CA PHOSPHATE 03 Normal LAB L3650.0900 . MAG SRINI PHOS Test not Normal performed LAB L3650.1000 . URIC ACID Test not Normal performed LAB L3650.1100 . URIC ACID Test not Normal DIHYD performed LAB L3650.1200 . AMM ACID URATE Test not Normal performed LAB L3650.1300 . NA ACID URATE Test not Normal performed LAB L3650.1400 . CA HYDROG PHOS Test not Normal performed LAB L3650.1500 . CYSTINE Test not Normal performed LAB L3650.1600 . CHOLESTEROL Test not Normal performed LAB L3650.1700 . CA Test not Normal BILIRUBINATE performed LAB L3650.1800 . CA CARBONATE Test not Normal performed LAB L3650.1900 . TRIAMTERENE Test not Normal performed LAB L3650.2000 . NEWBERYITE Test not Normal performed LAB L3650.2100 . DRIED BLOOD Test not Normal performed LAB L3650.2200 . CELL MATERIAL Test not Normal performed LAB L3650.2250 . NIDUS No Nidus Normal visualized LAB L3650.2325 . SHELL Test not Normal performed LAB L3650.2350 . SURFACE Test not Normal CRYSTAL performed LAB L3650.2400 . COMMENT Test not Normal performed LAB L3650.2500 . COMMENT Note: Normal Result Comment: Please do not submit specimens on Q-Tips, in tape, on filters, or in liquids such as blood, urine or formalin. This may cause unnecessary biohazards, erroneous results and/or delay in the processing of the specimen. LAB L3650.2600 . Normal PHOTO Comment Result Comment: Photograph will follow under separate cover. LAB L3650.2700 . Normal COMMENT Comment Result Comment: Physician questions regarding Calculi Analysis contact [facility] at: [phone]. LAB L3650.2800 . Normal COMMENT Comment Result Comment: Calculi report with photograph will follow via computer, mail or vice president of communications delivery. LAB L3650.2900 . Normal Disclaimer Comment Result Comment: This test was developed and its performance characteristics determined by [facility]. It has not been cleared or approved by the Food and Drug Administration. Performed at: [address] [id number] Administrative Office Manager: Jordan Carr MD, Phone: [phone] Performed By: #### L3650.0100 #### [facility] (refer to report for specific site) refer to report for address and phone number EMERGENCY DEPARTMENT Observed: 10/04/2017 Status: F Source: FALSE PASS SUMMARY 12:26 AM [facility] REPOSITORY [facility] Medical Records Department [address] [place] [address] Emergency Department Summary 10/03/17 1508 MR#: [id number] Acct: [id number] Name: THUY WHITE Rep #: [id number] : 1965 52 From: Vinicius Hernadez DO PCP: Bret Jay MD Status: DEP ER - ER Visit Summary Date of Service: 10/03/17 Chief Complaint: Abdominal pain History of Present Illness: The patient is a 52 F who states that 1 hour prior to arrival she began having discomfort in the right lower quadrant. She felt like she maybe she needed to have a bowel movement and went to the bathroom and did. However after the bowel movement the patient developed a severe stabbing pain that radiated to the right flank. She stated wax and wanes. She last ate at 1300 hrs. having steak and eggs. She states that she was feeling fine up until 1 hour prior to examination. She has a history of GERD and reports chronic kidney disease stage III. She has had prior cholecystectomy and a gastric sleeve. Physical Examination: Afebrile vital signs are stable Gen: Well-nourished well-developed obese Head: Normocephalic atraumatic Eyes: Perrl EOMI ENT: TMs clear no rhinorrhea moist mucous membranes Neck: Supple no lymphadenopathy no JVD nontender CVS: Regular rate rhythm no murmurs normal S1-S2 Respiratory: No distress clear to auscultation bilaterally chest nontender Abdomen: Soft mild tenderness without guarding or rebound nondistended normal bowel sounds no masses Back: Nontender Extremity: Nontender no edema Skin: Normal color no rash diaphoretic Neuro: alert orientated 3 CN II-XII intact normal strength sensation reflexes gait cerebellar Psych: Normal affect normal mood Test Results: CBC shows a hemoglobin 11.5 platelets are low at 483. Creatinine 1.76. Urinalysis shows some contamination 25-50 white cells 10-25 red blood cells 5-10 epithelial cells X test is negative. CT of the abdomen pelvis demonstrated a significant amount of perinephric stranding hydrant moderate hydronephrosis and a 5x3 mm distal ureteral stone. Emergency Department Course and Treatment: IV was established. Patient received fluids Toradol Dilaudid and Zofran. Her pain is significantly improved. I spoke with to help arrange follow-up. Patient was advised she may return if her pain is not controlled. I will be writing for oxycodone Zofran and Flomax. Impression: 1. Right distal ureteral stone (5 x 3 mm stone) 2. Right hydronephrosis This note was generated with [employer] software. It may contain incorrect words, spelling, and punctuation that were not noted in review of the chart prior to signing ED Disposition - Plan for ED Patient: Disposition: Home or Assisted Living Chief Complaint: Flank Pain Instructions: ED Stone Renal W Colic Prescriptions: Oxycodone [Oxyir] 5 - 10 mg PO Q6H PRN PRN 4 Days #25 tab PRN Reason: Pain Ondansetron [Zofran Odt] 4 mg PO Q8H PRN PRN #10 tab PRN Reason: Nausea Tamsulosin HCl [Flomax] 0.4 mg PO QHS #7 cap Referrals: Yesi Pina MD [STAFF PHYSICIAN] - (call on wednesday to arrange follow up) What to do if you have Problems For any increased pain, shortness of breath, bleeding, nausea or vomiting, chest pain, or any unexpected problems, contact your Primary Care Provider. Call [facility] ([phone]) or report to the closest Emergency Room. Call 911 if necessary. 10/04/17 0026 <Electronically signed by Vinicius Hernadez DO> Date Vinicius Hernadez DO Cosigner Signature (If Indicated): Date CC: Bret Jay MD URINALYSIS, COMPLETE Collected: 10/03/2017 Status: F Source: [place] 3:49 PM [facility] REPOSITORY Order Comment: Order Date: 10/03/17 How was Urine Obtained? CLEAN CATCH TYPE CODE TESTS RESULT OUT OF RANGE REFERENCE UNITS LAB L400.3000 Yellow COLOR Normal Yellow LAB L400.3050 Clear Normal CLARITY Clear LAB L400.3200 Normal mg/dl Normal GLUCOSE, UR Normal LAB L400.3300 Negative mg/dL Normal BILIRUBIN URINE Negative LAB L400.3400 Negative mg/dl Normal KETONE UR Negative LAB L400.3465 1.002-1.030 Normal SP.GR. DIPSTX 1.025 LAB L400.3550 5.0 - 8.0 pH UR Normal 6.0 LAB L400.3600 Negative mg/dl High PROT 30 DIPSTX LAB L400.3700 Normal mg/dl Normal UROBILI Normal LAB L400.3750 Negative Normal NITRITE UR Negative LAB L400.3780 Negative /ul High OCCULT BLOOD-UR 150 LAB L400.3800 Negative /ul High LEUK ESTERASE 100 LAB L400.4050 0-5 /hpf WBC Normal 25-50 SEEN LAB L400.4100 0-5 /hpf Normal RBC-UA 10-25 SEEN LAB L400.4150 5-10 /hpf SQUAM Normal EPI 5-10 SEEN LAB L400.4300 None Seen /hpf Normal BACTERIA RARE LAB L400.4350 <or=2+ /hpf Normal MUCUS, URINE RARE LAB L400.4400 0-5 /lpf Normal HYALINE CAST 0-5 SEEN Performed By: #### L400.0001 #### [facility] [address] [place] [address], [place], [address] Observed: 10/03/2017 Status: F Source: ALYSSA CULTURE, URINE 3:49 PM [facility] REPOSITORY OV Order #: T Urine Culture ORGANISM 1: Mixed Gram Positive Organisms [place] Count 1000-10,000 MIX CULTURE Mixed contaminants. Submit a new specimen if indicated. Performed By: #### M100.0650 #### [facility] [address] [place], [address] CBC W/DIFF, AUTOMATED Collected: 10/03/2017 Status: F Source: [place] 3:11 PM [facility] REPOSITORY TYPE CODE TESTS RESULT OUT OF RANGE REFERENCE UNITS LAB L100.1000 4.4-11.0 K/mm3 Normal WBC 8.3 LAB L100.1200 4.2-5.4 M/mm3 Normal RBC 4.83 LAB L100.1300 12.0-15.0 g/dl Low HGB 11.5 LAB L100.1400 37-47 % Normal HCT 37.3 LAB L100.1500 81-99 fL Low MCV 77.2 LAB L100.1600 27.0-32.0 pg Low MCH 23.8 LAB L100.1700 32-36 g/gl Low MCHC 30.8 LAB L100.1810 11.6-14.6 % High RDW CV 17.2 LAB L100.1820 35.1-43.9 fl High RDW SD 48.7 LAB L100.1900 150-450 K/mm3 High PLT 483 LAB L100.2000 6.2-12.0 fl Normal MPV 9.5 LAB L100.2100 47-70 % Normal NEUT% 66.4 LAB L100.2200 19-41 % Normal LY% 22.9 LAB L100.2300 0-10 % Normal MONO% 7.0 LAB L100.2400 0-5 % Normal EO% 3.2 LAB L100.2500 0-1 % Normal BASO% 0.4 LAB L100.2550 0.0-0.9 % Normal IM GRAN % 0.100 Result Comment: IG% - Immature Granulocytes (promyelocytes, myelocytes and metamyelocytes) > 1% indicates that a LEFT SHIFT is Present. LAB L100.2620 2.0-7.7 X10 3/uL Normal Absolute Neut 5.5 LAB L100.2720 0.83-4.51 X10 3/ul Normal Absolute Lymph 1.90 Performed By: #### L100.0100 #### [facility] [address] [place] [address], [place], [address] BASIC METABOLIC Collected: 10/03/2017 Status: F Source: [place] PROFILE (BMP) 3:11 PM [facility] REPOSITORY TYPE CODE TESTS RESULT OUT OF RANGE REFERENCE UNITS LAB L501.0100 74-106 mg/dL High GLU 118 Result Comment: Fasting Glucose result from 100 to 125 mg/dL suggests IMPAIRED HOMEOSTASIS per A.D.A. criteria. Please note revised GLUCOSE reference range effective 2017. LAB L501.1000 7-18 mg/dL Normal BUN 18 LAB L501.1100 0.55-1.02 mg/dL High CREAT,SERUM 1.76 Result Comment: The validity of the calculated GFR AND GFRAA in patients over 70 years has not been determined. Clinical correlation is essential. LAB L501.1110 >60 mL/min Low EST GFR 32 Result Comment: Non- GFR Calc LAB L501.1115 >60 mL/min Low EST GFR - AA 39 Result Comment: GFR Calc LAB L501.1255 ml/min Normal Estimated CRCL 36.77 LAB L501.1300 10-20 RATIO Normal BUN/CRE 10.2 LAB L501.2200 8.5-10 mg/dL Normal .1 CA 9.6 LAB L501.5300 136-14 mmol/L Normal 5 NA 139 LAB L501.5600 3.5-5. mmol/L Low 1 K 3.4 LAB L501.5900 98-107 mmol/L Normal CL 106 LAB L501.6100 21.0-3 mmol/L Normal 2.0 CO2 23.0 LAB L501.6200 5-15 Normal GAP 10 Performed By: #### L500.2500 #### [facility] [address], [place], [id number] ,SERUM,HCG QUALI. Collected: Status: F Source: [place] 10/03/2017 3:11 PM [facility] REPOSITORY TYPE CODE TESTS RESULT OUT OF REFERENCE UNITS RANGE LAB L700.7000 0-9 Nonpreg Negative Normal HCGSQUAL NEGATIVE LAB L700.6700 =>Qualitative mIU/mL Normal HCG Qual 5 triggr Performed By: #### L700.6800 #### [facility] [address], [place], [address] ABDOMEN/PELVIS WITHOUT Observed: 10/03/2017 Status: F Source: [place] CONT 2:59 PM [facility] REPOSITORY [facility] Imaging Services [address] [place] [address] Abdomen/Pelvis without Cont MR#: [id number] Acct: [id number] Name: THUY WHITE Rep #: [id number] : 1965 F 52 From: Renita Mock MD PCP: Bret Jay MD Status: REG ER Study: Abdomen/Pelvis without Cont Date of Exam: 10/03/17 Exam# [id number] Ordering Dr: Vinicius Hernadez DO STUDY: CT ABDOMEN AND PELVIS WITHOUT CONTRAST REASON FOR EXAM: Female, 52 years old. Certain onset right lower quadrant pain one hour prior to arrival. History stage III kidney disease. History of cholecystectomy, hysterectomy and gastric sleeve. RADIATION DOSAGE (If Supplied By Facility): CTDIvol = ( 27.69 ) mGy, DLP = ( 1501.17 ) mGycm TECHNIQUE: Transaxial images were obtained from the dome of the diaphragm to the symphysis pubis without oral contrast, and without intravenous contrast. Sagittal and coronal images were reconstructed. Individualized dose optimization techniques were used for this CT. COMPARISON: None. FINDINGS: 1 discrete linear opacity of the right lung base consistent with scarring or focal atelectasis. The visualized portions of the heart are within normal limits. Normal liver. There are surgical clips in the gallbladder fossa consistent with a prior cholecystectomy. Normal spleen. Normal pancreas. Normal bilateral adrenal glands. Moderate hydronephrosis of the right kidney and a dilated ureter to the level of a 5 x 3 mm stone of the distal ureter just above the right ureterovesicular junction. Substantial perinephric stranding. Negative for other renal or ureteral stones. Mild atrophy of the left kidney without hydronephrosis or stones. Moderate hiatal hernia. Postoperative changes consistent with gastric sleeve. Normal small intestine. Diverticulosis without evidence of acute diverticulitis. There is non-visualization of the appendix. Normal abdominal aorta. 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 Normal retroperitoneum. Normal urinary bladder. There is absence of the uterus consistent with a prior hysterectomy. Negative for pelvic mass. Normal abdominal wall. There are diffuse degenerative changes of the visualized lumbar spine. CT/Abdomen/Pelvis without Cont IMPRESSION: Moderate hydronephrosis of the right kidney secondary to a 5 x 3 mm stone of the distal right ureter just above the right ureterovesicular junction. Substantial perinephric stranding. Negative for other renal or ureteral stones. Atrophy of the left kidney without renal or ureteral stones. Unremarkable nondistended urinary bladder. 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 Medical Records Department [address] [place] [address] Emergency Department Summary 09/16/17 0332 MR#: [id number] Acct: [id number] Name: THUY FRAGA Rep #: [id number] : 1965 52 From: Galdino Camacho MD PCP: Care Physician, No Primary Status: PRE ER - ER Visit Summary Date of Service: 09/16/17 Chief Complaint: Right jaw pain status post tooth extraction History of Present Illness: The patient is a 52 F who presents because of pain status post extraction of the right lower third molar. The procedure was performed on September 15. Patient reports the prescription was not electronically transmitted to the pharmacy. She denies fever, chills night sweats. She complains of pain and difficulty swallowing because of pain. There is been no drooling. There is no facial swelling. No documented fever and she denies chills. She is on no immunosuppressive meds. She has no history of rheumatic fever, murmur, or SBE. Physical Examination: Vital signs remarkable for an elevated blood pressure 162/104. She appears uncomfortable. Extraction site looks normal. There is no facial swelling. Is no trismus. There is no sub-mandibular or anterior cervical lymphadenopathy. Trach is midline. There is no stridor. Heart is regular without murmur, gallop or rub. Lungs are clear to auscultation. There is no evidence of facial cellulitis. Test Results: None Emergency Department Course and Treatment: Patient received 1 oxycodone tablet to diminish her pain and she will need to contact her dentist for any additional pain medication Treatment Plan: Discharge to home and follow-up with dentist regarding pain medication Disposition: Discharged to home Impression: Pain status post right lower third molar extraction without evidence of infection This note was generated with Offerial dictation software. It may contain incorrect words, spelling, and punctuation that were not noted in review of the chart prior to signing ED Disposition - Plan for ED Patient: Disposition: Home or Assisted Living Chief Complaint: Dental Instructions: ED Post Op Pain Referrals: Care Physician,No Primary [Primary Care Provider] - Additional Instructions: Contact your dentist later this morning for any additional pain medicine. What to do if you have Problems For any increased pain, shortness of breath, bleeding, nausea or vomiting, chest pain, or any unexpected problems, contact your Primary Care Provider. Call [facility] ([phone]) or report to the closest Emergency Room. Call 911 if necessary. 09/16/17 0336 <Electronically signed by Galdino Camacho MD> Date Galdino Camacho MD Cosigner Signature (If Indicated): Date CC: No Primary Care Physician PROGRESS Observed: 09/07/2017 Status: COMPLETED Source: [place] 8:[address] [facility] REPOSITORY O ID: [id number] Author: Yaneth Kirk Service: (none) Author Type: (none) Type: Progress Notes Filed: 09/07/2017 8:13 AM Note Text: The patient has been identified by name and date of : YES Patient scheduled for an appointment on 11/15/2017 with Bret Jay MD Pended Orders None PHMA Documentation 09/07/2017 Opts out of [facility] No Appointments Scheduled Scheduled PCP Appt BP > 139/89 (No Data) Mammography (No Data) CRCS (No Data) Pneumoccal Vaccination (No Data) Yaneth Kirk PROGRESS Observed: 09/03/2017 Status: COMPLETED Source: [place] 4:05 PM [facility] REPOSITORY HNO ID: [id number] Author: Kaylin Johnson Psr Service: (none) Author Type: (none) Type: Progress Notes Filed: 09/07/2017 8:13 AM Note Text: Called patient scheduled nv 09/10 at 11:00, follow up with Dr Jay 11/15 at 2:40 pm, patient had mmg at [place] in [facility]. PROGRESS Observed: 09/03/2017 Status: COMPLETED Source: [place] 2:40 PM [facility] REPOSITORY HNO ID: [id number] Author: Yaneth Kirk Service: (none) Author Type: (none) Type: Progress Notes Filed: 09/07/2017 8:13 AM Note Text: PHMA TEAMLET DOCUMENTATION Provider Action/FYI: N/a PSR Action/FYI: to assist an scheduling nurse visit for blood pressure check now - add HCC Hypertension to appointment notes - encourage patient to bring blood pressure readings to appointment - assist an scheduling appointment with Bret Jay MD on 11/12/2017 or after - assist an scheduling mammogram screening Teamlet has identified patient by name and date of . Team: Bret Jay MD ? MARILYN Skelton PSR Jamie Shelby ? Last Office Visit with: 05/12/2017 ? Next Office Visit: Visit date not found ? Last BP/Labs: Blood Pressure: Last 3 Encounter BP Readings: Date: BP: 08/30/2017 140/82 06/22/2017 120/80 06/07/2017 127/81 Lipids: Cholesterol, Total (mg/dL) Date Value 05/16/2014 227 12/18/2013 227 HDL Cholesterol (mg/dL) Date Value 05/16/2014 47 12/18/2013 53 LDL Cholesterol (mg/dL) Date Value 05/16/2014 145 12/18/2013 146 Triglyceride (mg/dL) Date Value 05/16/2014 176 12/18/2013 141 HGB A1C: Lab Results Component Value Date HBA1C 5.8 05/16/2014 HBA1C 5.2 TEST PERFORMED AT [facility] 10/22/2007 TSH: TSH (uU/mL) Date Value 10/30/2015 Test sent to [facility]. 12/18/2013 3.940 ) Care Gap: HTN - Last BP NOT under 140/90 Plan: ? Confirm PCP / Status - active ? Type of appointment needed: Follow-up Hypertension 11/2017 ? Nurse BP visit ? Consultation Appointments: N/a Labs, HM and Immunization: Immunizations: Zostavax Mammogram Yaneth Kirk CNPTOUTREACH Observed: 09/03/2017 Status: COMPLETED Source: [place] 12:00 AM [facility] REPOSITORY Patient Outreach (IMMDNA) THUY WHITE ([id number]) 1965 F [place] Date Time Provider Department 09/03/17 YANETH CORNELIUS) [facility] During your visit today, we recorded the following information about you: Yaneth Kirk 09/07/2017 8:13 AM Signed PHMA TEAMLET DOCUMENTATION Provider Action/FYI: N/a PSR Action/FYI: to assist an scheduling nurse visit for blood pressure check now - add HCC Hypertension to appointment notes - encourage patient to bring blood pressure readings to appointment - assist an scheduling appointment with Bret Jay MD on 11/12/2017 or after - assist an scheduling mammogram screening Teamlet has identified patient by name and date of . Team: Bret Jay MD ? PHMA Yaneth Skelton PSR Jamie Shelby ? Last Office Visit with: 05/12/2017 ? Next Office Visit: Visit date not found ? Last BP/Labs: Blood Pressure: Last 3 Encounter BP Readings: Date: BP: 08/30/2017 140/82 06/22/2017 120/80 06/07/2017 127/81 Lipids: Cholesterol, Total (mg/dL) Date Value 05/16/2014 227 12/18/2013 227 HDL Cholesterol (mg/dL) Date Value 05/16/2014 47 12/18/2013 53 LDL Cholesterol (mg/dL) Date Value 05/16/2014 145 12/18/2013 146 Triglyceride (mg/dL) Date Value 05/16/2014 176 12/18/2013 141 HGB A1C: Lab Results Component Value Date HBA1C 5.8 05/16/2014 HBA1C 5.2 TEST PERFORMED AT [facility] 10/22/2007 TSH: TSH (uU/mL) Date Value 10/30/2015 Test sent to [facility]. 12/18/2013 3.940 ) Care Gap: HTN - Last BP NOT under 140/90 Plan: ? Confirm PCP / Status - active ? Type of appointment needed: Follow-up Hypertension 11/2017 ? Nurse BP visit ? Consultation Appointments: N/a Labs, HM and Immunization: Immunizations: Zostavax Mammogram Yaneth Johnson Psr 09/07/2017 8:13 AM Signed Called patient scheduled nv 09/10 at 11:00, follow up with Dr Jay 11/15 at 2:40 pm, patient had mmg at [place] in [facility]. Yaneth Kirk 09/07/2017 8:13 AM Signed The patient has been identified by name and date of : YES Patient scheduled for an appointment on 11/15/2017 with Bret Jay MD Pended Orders None PHMA Documentation 09/07/2017 Opts out of [facility] No Appointments Scheduled Scheduled PCP Appt BP > 139/89 (No Data) Mammography (No Data) CRCS (No Data) Pneumoccal Vaccination (No Data) Yaneth Chayito Cornelius Rma Allergies As of Date: 09/03/2017 Noted Allergy Reaction CONTRAST DYE 10/22/2007 2 - Rash FERROUS GLUCONATE 06/14/2012 8 - GI Upset Comments: Nausea MORPHINE 05/14/2005 2 - Rash OXYCONTIN (OXYCODONE HCL) 01/07/2007 2 - Rash 7 - Swelling Comments: Rash, red and swollen eyes, facial swelling PROPRANOLOL 04/02/2017 9 - Itching Date Reviewed: 08/30/2017 Reviewed by: Chikis Rutledge - Fully Assessed Reason for Visit: PHMA/Care Gap Outreach [[id number]] Cmt: Dr. Pierre GARCES Teamlet for 09/03/2017 Prescriptions as of 09/03/2017 Sig: CLOTRIMAZOLE 1 % TOPICAL CREAM as needed. ZOLPIDEM 5 MG TABLET Take 5 mg by mouth daily at b* DEXTROAMPHETAMINE-AMPHETAMINE* Take 1 capsule by mouth twice* FLUTICASONE 50 MCG/ACTUATION * instill 1 spray into each nos* TOPIRAMATE 25 MG TABLET take 1 tablet by mouth twice * Patient not taking: Reported on 08/30/2017 SPIRONOLACTONE 100 MG TABLET take 1 tablet by mouth once d* BENZONATATE 100 MG CAPSULE Take 2 capsules by mouth thre* Patient not taking: Reported on 08/30/2017 METHYLPREDNISOLONE 4 MG TABLE* Take by mouth. As directed on* Patient not taking: Reported on 08/30/2017 ALBUTEROL SULFATE HFA 90 MCG/* Inhale 2 Puffs as instructed * CETIRIZINE 10 MG TABLET Take 1 tablet by mouth once d* OMEPRAZOLE 40 MG CAPSULE,VANE* Take 1 capsule by mouth once * CALCITRIOL 0.5 MCG CAPSULE take 3 capsules by mouth once* MECLIZINE 25 MG TABLET Take 1 tablet by mouth three * OMEGA-3 + VITAMIN D3 ORAL Take 2,000 Units by mouth onc* DOCUSATE SODIUM 100 MG CAPSULE Take 1 capsule by mouth twice* Patient not taking: Reported on 08/30/2017 BUPROPION XL 150 MG TAB Take 1 tablet by mouth once d* BUPROPION XL 300 MG 24 HR TAB Take 1 tablet by mouth once d* CYANOCOBALAMIN (VIT B-12) 1,0* Take 1 tablet by mouth once d* ALPRAZOLAM 0.5 MG TABLET Take 1 tablet by mouth daily * Patient not taking: Reported on 08/30/2017 COMPOUNDED PRESCRIPTION Tums chewable gummies (470 mg* VENLAFAXINE ER 150 MG CAPSULE* Take 1 capsule by mouth once * Problem List As Of Date 09/03/2017 Noted Resolved PRIMARY HYPERPARATHYROIDISM [E21.0] INVALID FOR*01/07/2007 Morbid obesity (HCC) [E66.01] More... Dysmenorrhea [N94.6] 02/25/2009 Irregular Menstrual Cycle [N92.6] 02/25/2009 More... Depression [F32.9] Priority: C More... 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 Complex Endometrial Hyperplasia without Atypia *INVALID FOR*02/25/2009 More... LENO (generalized anxiety disorder) [F41.1] INVALID FOR* Priority: D Eating disorder NEC INVALID FOR*04/11/2014 Hirsutism [L68.0] INVALID FOR*04/11/2014 Vitamin B12 deficiency [E53.8] INVALID FOR* Onychia and paronychia of toe [L03.039] INVALID FOR*01/31/2014 Nonunion of fracture [EMV5242] INVALID FOR*01/31/2014 Other complications due to other internal ortho*INVALID FOR*01/31/2014 Gastric bypass status for obesity [Z98.84] CKD (chronic kidney disease) stage 3, GFR 30-59*INVALID FOR* Priority: F More... ADHD (attention deficit hyperactivity disorder)*INVALID FOR* IFG (impaired fasting glucose) [R73.01] INVALID FOR*10/03/2016 Sleep apnea [G47.30] INVALID FOR* More... Pancreatic mass [K86.9] INVALID FOR* More... Hyperlipidemia [E78.5] INVALID FOR* More... Hypocalcemia [E83.51] INVALID FOR*10/01/2016 Priority: Severe More... Hypokalemia [E87.6] INVALID FOR*10/01/2016 Fracture of right clavicle [S42.001A] INVALID FOR*10/01/2016 PTSD (post-traumatic stress disorder) [F43.10] INVALID FOR* Sternoclavicular joint subluxation [S43.203A] INVALID FOR*10/01/2016 Subluxation of right sternoclavicular joint [S4*INVALID FOR* Attention deficit hyperactivity disorder (ADHD)*INVALID FOR* BASIL (obstructive sleep apnea) [G47.33] INVALID FOR* Encounter Status:Closed by YANETH NGUYEN on 09/07/17 PROGRESS Observed: 08/30/2017 Status: COMPLETED Source: [place] 10:10 AM [facility] REPOSITORY HNO ID: [id number] Author: Peter Sigala Service: (none) Author Type: Physician Type: Progress Notes Filed: 08/30/2017 10:11 AM Note Text: This office note has been dictated. Peter Sigala MD CNOV Observed: 08/30/2017 Status: COMPLETED Source: [place] 9:00 AM [facility] REPOSITORY Office Visit (NICK) THUY WHITE ([id number]) 1965 F [place] Date Time Provider Department 08/30/17 9:00 AM PETER SIGALA During your visit today, we recorded the following information about you: Pulse Blood pressure Weight 83/minute 140/82 134.2 kg Chikis Rutledge 08/30/2017 9:10 AM Signed Thank you for choosing the [facility] Department of Endocrinology, Diabetes and Metabolism. Being able to provide excellent health care has allowed us to be # 3 in the country according to [employer]. Did you know that you need to call 48 hours in advance of your scheduled visit, if you are unable to make your appointment? The [facility]in[facility] [place] thanks you for your commitment, because patients not showing to their appointment results in a lost opportunity for patients to receive [facility] health care at the [facility]. To Cancel an appointment, please choose one of the following: - Call the Appointment Call Center at [phone] - From [employer] [facility], Go to Appointments ? Cancel Appts If cancelling, consider your need to reschedule to prevent further delays in your care. To Schedule an appointment, please choose one of the following: - Call the Appointment Call Center at [phone] - From [employer] [facility], Go to Appointments ? Request an Appt Peter Sigala MD 08/30/2017 10:11 AM Signed This office note has been dictated. 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 ZOLPIDEM 5 MG TABLET Take 5 mg by mouth daily at b* DEXTROAMPHETAMINE-AMPHETAMINE* Take 1 capsule by mouth twice* FLUTICASONE 50 MCG/ACTUATION * instill 1 spray into each nos* SPIRONOLACTONE 100 MG TABLET take 1 tablet by mouth once d* ALBUTEROL SULFATE HFA 90 MCG/* Inhale 2 Puffs as instructed * CETIRIZINE 10 MG TABLET Take 1 tablet by mouth once d* OMEPRAZOLE 40 MG CAPSULE,VANE* Take 1 capsule by mouth once * CALCITRIOL 0.5 MCG CAPSULE take 3 capsules by mouth once* MECLIZINE 25 MG TABLET Take 1 tablet by mouth three * OMEGA-3 + VITAMIN D3 ORAL Take 2,000 Units by mouth onc* BUPROPION XL 150 MG TAB Take 1 tablet by mouth once d* BUPROPION XL 300 MG 24 HR TAB Take 1 tablet by mouth once d* CYANOCOBALAMIN (VIT B-12) 1,0* Take 1 tablet by mouth once d* COMPOUNDED PRESCRIPTION Tums chewable gummies (470 mg* VENLAFAXINE ER 150 MG CAPSULE* Take 1 capsule by mouth once * TOPIRAMATE 25 MG TABLET take 1 tablet by mouth twice * Patient not taking: Reported on 08/30/2017 BENZONATATE 100 MG CAPSULE Take 2 capsules by mouth thre* Patient not taking: Reported on 08/30/2017 METHYLPREDNISOLONE 4 MG TABLE* Take by mouth. As directed on* Patient not taking: Reported on 08/30/2017 DOCUSATE SODIUM 100 MG CAPSULE Take 1 capsule by mouth twice* Patient not taking: Reported on 08/30/2017 ALPRAZOLAM 0.5 MG TABLET Take 1 tablet by mouth daily * Patient not taking: Reported on 08/30/2017 Problem List As Of Date 08/30/2017 Noted Resolved PRIMARY HYPERPARATHYROIDISM [E21.0] INVALID FOR*01/07/2007 Morbid obesity (HCC) [E66.01] More... Dysmenorrhea [N94.6] 02/25/2009 Irregular Menstrual Cycle [N92.6] 02/25/2009 More... Depression [F32.9] Priority: C More... HYPERPARATHYROIDISM NOS [E21.3] INVALID FOR*01/07/2007 ENDOMETRIAL HYPERPLASIA W ATYPIA [N85.02] INVALID FOR*05/09/2008 Postsurgical hypoparathyroidism (HCC) [E89.2] INVALID FOR* Priority: B Hypokalemia [E87.6] INVALID FOR*12/20/2014 MEN1 (multiple endocrine neoplasia) ([facility]) [E31.*INVALID FOR* Priority: A More... Complex Endometrial Hyperplasia without Atypia *INVALID FOR*02/25/2009 More... LENO (generalized anxiety disorder) [F41.1] INVALID FOR* Priority: D Eating disorder NEC INVALID FOR*04/11/2014 Hirsutism [L68.0] INVALID FOR*04/11/2014 Vitamin B12 deficiency [E53.8] INVALID FOR* Onychia and paronychia of toe [L03.039] INVALID FOR*01/31/2014 Nonunion of fracture [KQL3648] INVALID FOR*01/31/2014 Other complications due to other internal ortho*INVALID FOR*01/31/2014 Gastric bypass status for obesity [Z98.84] CKD (chronic kidney disease) stage 3, GFR 30-59*INVALID FOR* Priority: F More... ADHD (attention deficit hyperactivity disorder)*INVALID FOR* IFG (impaired fasting glucose) [R73.01] INVALID FOR*10/03/2016 Sleep apnea [G47.30] INVALID FOR* More... Pancreatic mass [K86.9] INVALID FOR* More... Hyperlipidemia [E78.5] INVALID FOR* More... Hypocalcemia [E83.51] INVALID FOR*10/01/2016 Priority: Severe More... Hypokalemia [E87.6] INVALID FOR*10/01/2016 Fracture of right clavicle [S42.001A] INVALID FOR*10/01/2016 PTSD (post-traumatic stress disorder) [F43.10] INVALID FOR* Sternoclavicular joint subluxation [S43.203A] INVALID FOR*10/01/2016 Subluxation of right sternoclavicular joint [S4*INVALID FOR* Attention deficit hyperactivity disorder (ADHD)*INVALID FOR* BASIL (obstructive sleep apnea) [G47.33] INVALID FOR* Other instructions from your clinician: Thank you for choosing the [facility] Department of Endocrinology, Diabetes and Metabolism. Being able to provide excellent health care has allowed us to be # 3 in the country according to [employer]. Did you know that you need to call 48 hours in advance of your scheduled visit, if you are unable to make your appointment? The [facility] [place] thanks you for your commitment, because patients not showing to their appointment results in a lost opportunity for patients to receive world class health care at the [facility]. To Cancel an appointment, please choose one of the following: - Call the Appointment Call Center at [phone] - From [place], Go to Appointments ? Cancel Appts If cancelling, consider your need to reschedule to prevent further delays in your care. To Schedule an appointment, please choose one of the following: - Call the Appointment Call Center at [phone] - From [place], Go to Appointments ? Request an Appt Disposition: Return in about 1 year (around 08/30/2018). Follow-up and Disposition History Recorded Encounter Status:Closed by PETER SIGALA MD on 08/30/17 PROGRESS Observed: 08/30/2017 Status: COMPLETED Source: [place] 12:[address] [facility] REPOSITORY HNO ID: [id number] Author: Peter Sigala Service: Endocrine Surgery Author Type: Physician Type: Progress Notes Filed: 09/01/2017 6:44 AM Note Text: [facility] [facility] Peter Sigala M.D. 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 Her last visit was in April 2016. In 2006, she underwent a sleeve gastrectomy but has had some difficulty in maintaining her weight loss. She has no prior history of pituitary disease. Her recent prolactin was stable at 10.9. She had a CT scan of the head done for sinus issues, but no specific pituitary imaging in the past year. In terms of her parathyroid axis, she underwent a prior subtotal parathyroidectomy with autotransplantation into the left forearm. She is currently on Calcitriol 0.5 mcg three times daily. She does not take any extra calcium supplementation. She has had no hypocalcemic symptoms. Recent laboratory studies show a calcium of 8.1 with a simultaneous intact parathyroid hormone value of 3 and phosphorus of 2.8. Given these findings, she has a low but detectable PTH and a stable calcium that,, although on the low side, she has been entirely asymptomatic. In terms of her pancreas, a CT scan done just after her visit in April 2016 showed a stable 1.2 cm enhancing area within the head of the pancreas. This has been unchanged since 2010. She is on Protonix daily and reports some reflux symptoms should she stop this. Her gastrin is mildly elevated at 253. While taking her Protonix, this measured 247 in April 2016. Her glucose is normal, and other hormones are pending. Her chromogranin A measured 188. The reference range and assay have changed from a baseline of 15 to 95. It is not possible to directly compare this value before and after change of the assay. In the office today, she is well appearing. She has a well-healed transverse cervical incision. Palpation of the neck reveals no obvious palpable thyroid tissue, nor any abnormal neck masses. Her left forearm autotransplant remains well healed with no palpable abnormalities. Her abdomen is entirely soft and nontender with well-healed laparoscopic trochar sites. I am pleased that her evaluation has been entirely stable. There is no evidence of pituitary, parathyroid or pancreatic hypersecretion. My plan is to see her back in the office in one year's time with the same panel of laboratory studies prior to that visit. I also at this point plan to obtain a pancreas protocol CT, as it will have been almost two and a half years since her prior evaluation. I appreciate being involved in the care of your patient and please feel free to contact me should you have any additional questions. PETER SIGALA M.D. AES/089 Audio #: [id number] cc: Grayson Solorzano M.D. [facility] ? Indra Dale M.D. [facility] ? Date Dictated: 08/30/2017 09:03:28 Date Typed: 08/31/2017 07:56:06 Date Revised: GLUCOSE, FASTING Collected: 08/23/2017 Status: F Source: [place] 10:15 AM [facility] REPOSITORY TYPE CODE TESTS RESULT OUT OF REFERENCE UNITS RANGE LAB GLF 74-99 mg/dL Glucose, 92 Fasting Result Comment: [place] [employer] guidelines state that a diabetes mellitus diagnosis is preliminarily made when the fasting plasma glucose meets or exceeds 126 mg/dL. In the absence of unequivocal hyperglycemia, results should be confirmed with repeat testing. Patients are at increased risk for diabetes mellitus (prediabetes) when the fasting glucose is 100 to 125 mg/dL. Performed By: #### GLF #### [facility] [address] [place], [place] [address] CALCIUM, TOTAL Collected: 08/23/2017 Status: F Source: [place] 10:14 AM [facility] REPOSITORY TYPE CODE TESTS RESULT OUT OF RANGE REFERENCE UNITS LAB CA 8.5-10.2 mg/dL Low Calcium, 8.1 Total Performed By: #### CA, PHOS, SOMATO #### [place] [phone] #### MG1, PROL, PTHI, CPEPT, INSULN, MATHEW, CHROMA #### [place] [address] #### IPROIN, VIP, GLUCA #### [facility] [address] [place] [address] [phone] PHOSPHORUS Collected: 08/23/2017 Status: F Source: [place] 10:14 AM [facility] REPOSITORY TYPE CODE TESTS RESULT OUT OF REFERENCE UNITS RANGE LAB PHOS 2.7-4.8 mg/dL Phosphorus 3.8 Performed By: #### CA, PHOS, SOMATO #### [address] #### MG1, PROL, PTHI, CPEPT, INSULN, MATHEW, CHROMA #### [place] [phone] #### IPROIN, VIP, GLUCA #### [facility] [address] [place] [address] [phone] MAGNESIUM Collected: 08/23/2017 Status: F Source: [place] 10:14 AM [facility] REPOSITORY TYPE CODE TESTS RESULT OUT OF REFERENCE UNITS RANGE LAB MG 1.7-2.3 mg/dL Magnesium 1.7 Performed By: #### CA, PHOS, SOMATO #### [place] [phone] #### MG1, PROL, PTHI, CPEPT, INSULN, MATHEW, CHROMA #### [place] [address] #### IPROIN, VIP, GLUCA #### [facility] [address] [place] [address] [phone] PROLACTIN Collected: 08/23/2017 Status: F Source: [place] 10:14 AM [facility] REPOSITORY TYPE CODE TESTS RESULT OUT OF REFERENCE UNITS RANGE LAB PROL 4.5-26.8 ng/mL Prolactin 10.9 Performed By: #### CA, PHOS, SOMATO #### [address] #### MG1, PROL, PTHI, CPEPT, INSULN, MATHEW, CHROMA #### [place] [address] #### IPROIN, VIP, GLUCA #### [facility] [address] [place] [address] [phone] PTH, INTACT Collected: 08/23/2017 Status: F Source: [place] 10:14 AM [facility] REPOSITORY TYPE CODE TESTS RESULT OUT OF REFERENCE UNITS RANGE LAB PTH 15-65 pg/mL Low PTH, Intact 3 Result Comment: Result rechecked. Performed By: #### CA, PHOS, SOMATO #### [place] [address] #### MG1, PROL, PTHI, CPEPT, INSULN, MATHEW, CHROMA #### [place] [address] #### IPROIN, VIP, GLUCA #### [facility] [address] [place] [address] [phone] C-PEPTIDE Collected: 08/23/2017 Status: F Source: [place] 10:14 AM [facility] REPOSITORY TYPE CODE TESTS RESULT OUT OF REFERENCE UNITS RANGE LAB CPEPT 0.8-3.2 ng/mL C-Peptide 1.9 Performed By: #### CA, PHOS, SOMATO #### [place] [phone] #### MG1, PROL, PTHI, CPEPT, INSULN, MATHEW, CHROMA #### [place] [address] #### IPROIN, VIP, GLUCA #### [facility] [address] [place] [address] [phone] INSULIN Collected: 08/23/2017 Status: F Source: [place] 10:14 AM [facility] REPOSITORY TYPE CODE TESTS RESULT OUT OF REFERENCE UNITS RANGE LAB INSULN 1-24 uU/mL Insulin 7.3 Performed By: #### CA, PHOS, SOMATO #### [place] [phone] #### MG1, PROL, PTHI, CPEPT, INSULN, MATHEW, CHROMA #### [place] [phone] #### IPROIN, VIP, GLUCA #### [facility] [address] [place] [address] [phone] GASTRIN Collected: 08/23/2017 Status: F Source: [place] 10:14 AM [facility] REPOSITORY TYPE CODE TESTS RESULT OUT OF REFERENCE UNITS RANGE LAB MATHEW <115.0 pg/mL High Gastrin 253 Performed By: #### CA, PHOS, SOMATO #### [place] [phone] #### MG1, PROL, PTHI, CPEPT, INSULN, MATHEW, CHROMA #### [place] [address] #### IPROIN, VIP, GLUCA #### [facility] [address] [place] [address] [phone] CHROMOGRANIN A Collected: 08/23/2017 Status: F Source: [place] 10:14 AM [facility] REPOSITORY TYPE CODE TESTS RESULT OUT OF REFERENCE UNITS RANGE LAB CHROMA <98 ng/mL Chromogranin A High 188 Result Comment: This test is performed using the CyberVision Text [id number] kit. Results obtained with different methods or kits cannot be used interchangeably. This test was developed and its performance characteristics determined by [facility]'s [facility] [place] [facility]). It has not been cleared or approved by the FDA. -[facility] is regulated under CLIA as qualified to perform high-complexity testing. This test is used for clinical purposes. It should not be regarded as investigational or for research. Performed By: #### CA, PHOS, SOMATO #### [place] [phone] #### MG1, PROL, PTHI, CPEPT, INSULN, MATHEW, CHROMA #### [facility] [address] [place] [address] #### IPROIN, VIP, GLUCA #### [address] [address] [phone] PROINSULIN, INTACT Collected: 08/23/2017 Status: F Source: [place] 10:14 AM [facility] REPOSITORY TYPE CODE TESTS RESULT OUT OF REFERENCE UNITS RANGE LAB PROIN <=8.0 pmol/L Proinsulin 3.8 Result Comment: (NOTE) INTERPRETIVE INFORMATION: Proinsulin, Intact Proinsulin, Intact: Fasting intact proinsulin values above the reference interval indicate a possible insulin secreting pancreatic tumor (insulinoma) in patients with hypoglycemia. Fasting intact proinsulin values range from 3 to 50 pmol/L in patients with untreated type 2 diabetes. Performed by [facility], [address] [place] [address] www.[employer], Cesar Navarrete MD, Lab. Director Performed By: #### CA, PHOS, SOMATO #### [address] [phone] #### MG1, PROL, PTHI, CPEPT, INSULN, MATHEW, CHROMA #### [facility] [address] [place] [address] #### IPROIN, VIP, GLUCA #### [address] [address] [phone] VIP Collected: 08/23/2017 Status: F Source: [place] 10:14 AM [facility] REPOSITORY TYPE CODE TESTS RESULT OUT OF RANGE REFERENCE UNITS LAB VIP 0-60 pg/mL VIP <13 Result Comment: (NOTE) Test developed and characteristics determined by [facility]. See Compliance Statement D: [employer]/ Performed by [facility], [address] [place] [id number] www.[employer], Cesar Navarrete MD, Lab. Director Performed By: #### CA, PHOS, SOMATO #### [address] [phone] #### MG1, PROL, PTHI, CPEPT, INSULN, MATHEW, CHROMA #### [facility] [address] [place] [address] #### IPROIN, VIP, GLUCA #### [address] [address] [phone] SOMATOSTATIN Collected: 08/23/2017 Status: F Source: [place] 10:14 AM [facility] REPOSITORY TYPE CODE TESTS RESULT OUT OF REFERENCE UNITS RANGE LAB SOMATO ADULT: < OR = pg/mL 30 Somatostatin <21 Result Comment: (NOTE) This test was developed and its analytical performance characteristics have been determined by [facility]. It has not been cleared or approved by FDA. This assay has been validated pursuant to the CLIA regulations and is used for clinical purposes. Test Performed at: [facility] [address] [phone] Stephan Cardona MD, PhD, GEOFFREY Performed By: #### CA, PHOS, SOMATO #### [address] [phone] #### MG1, PROL, PTHI, CPEPT, INSULN, MATHEW, CHROMA #### [place] [address] #### IPROIN, VIP, GLUCA #### [address] [address] [phone] GLUCAGON Collected: 08/23/2017 Status: F Source: [place] 10:14 AM [facility] REPOSITORY TYPE CODE TESTS RESULT OUT OF REFERENCE UNITS RANGE LAB GLUCA <=208 ng/L Glucagon 191 Result Comment: (NOTE) Performed by [facility], [address] [place] [id number] www.[employer], Cesar Navarrete MD, Lab. Director Performed By: #### CA, PHOS, SOMATO #### [address] [phone] #### MG1, PROL, PTHI, CPEPT, INSULN, MATHEW, CHROMA #### [facility] [address] [place] [place], [place] [address] #### IPROIN, VIP, GLUCA #### [facility] [address] [place] [phone] MA MAMMOGRAM SCREENING Observed: 07/27/2017 Status: F Source: [facility] BILATERAL W/CELE[place] 11:00 AM [facility] REPOSITORY ORIGINAL FROM: [facility] [address] [place] [address] PROCEDURE FOR: THUY WHITE [address] [place] [address] Home: PID#: [id number] Exam#: [id number] : 1965 Age: 52 TO: VAHID MAY MD [address] [facility] [address] [place] [address] #[id number] DIGITAL SCREENING MAMMOGRAM 3D/2D WITH CAD WITH MEDIOLATERAL OBLIQUE CRANIOCAUDAL: 07/27/2017 Comparison is made to exams dated: 09/26/2015 mammogram and 10/07/2011 mammogram - [facility]. There are scattered fibroglandular elements in both breasts. Current study was also evaluated with a Computer Aided Detection (CAD) system. No significant masses, calcifications, or other findings are seen in either breast. There has been no significant interval change. IMPRESSION: NEGATIVE There is no mammographic evidence of malignancy. A 1 year screening mammogram is recommended. 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 11:24 AM [facility] REPOSITORY . Pathology Reports Accession: Collected Date/Time: Received Date/Time: Pathologist: [id number] 07/14/2017 11:24 EDT 07/15/2017 18:00 EDT Crayon Painter Cytology Report SPECIMEN: Specimen Description: Liquid Prep w/ HPV Specimen: Cervical/Endocervical Screening or Diagnostic: Screening RELEVANT HISTORY: LMP: Not Given [id number] SPECIMEN ADEQUACY: SATISFACTORY FOR EVALUATION ENDOCERVICAL/TRANSFORMATIONAL ZONE COMPONENT PRESENT INTERPRETATION/RESULTS: NEGATIVE FOR INTRAEPITHELIAL LESION OR MALIGNANCY ADJUNCTIVE TESTING: HIGH RISK HPV DNA TESTING ORDERED, REPORT TO FOLLOW UNDER SEPARATE COVER Electronically Signed by Pathology report verified by [facility]. Screened by: LS Electronically signed by Helene HANSON (ASCP) Sign-Out Date: 07/20/2017 09:24 Performing Lab: [facility], [address] [place] [address] Disclaimer The Pap test is a screening test for cervical cancer. As evidenced by published data, it is subject to both inherent false negative and false positive results. Your patient's results should be interpreted in context with pertinent clinical history including gynecological examination. Performed By: #### GYCR #### [place] [address] HPV Collected: 07/14/2017 Status: F Source: [facility] 11:24 AM [facility] REPOSITORY Order Comment: Order placed by AP_HPV_ORDER rule from [id number] TYPE CODE TESTS RESULT OUT OF RANGE REFERENCE UNITS LAB BFHPV(LOINC ) HPV Cervix Source LAB HPVINT(LOIN See Interp HPVN C) Unknown HPV Interp Result Comment: High Risk HPV Typing Positive: HPV Type 16 and additional high risk types detected (other than HPV Type 18) Specimen is positive for HPV type 16 DNA and the DNA of any one of, or combination of the following high risk HPV types: 31, 33, 35, 39, 45, 51, 52, 56, 58, 59, 66, 68. HPV type 18 DNA was undetectable or below the pre-set threshold. The félix High-Risk HPV DNA Test is not intended for use as a screening device for Pap normal women under age 30 and is not intended to substitute for regular Pap screening. The félix High-Risk HPV DNA Test is designed to augment existing methods for the detection of cervical disease and should be used in conjunction with clinical information derived from other diagnostic and screening tests, physical examinations and full medical history in accordance with appropriate patient management procedures. NOTE: A negative result does not preclude the presence of HPV infection because results depend on adequate specimen collection, absence of inhibitors and sufficient DNA to be detected. See Interp HPOS Performed By: #### HPV #### [facility] [address] [place], [place] [address] CNCO Observed: 07/12/2017 Status: COMPLETED Source: [place] 12:00 AM [facility] REPOSITORY Letter Text Grayson Solorzano MD Department of Endocrinology [facility] [address] [facility], [address] [place], [place] [address] Thuy White July 12, 2017 Thuy White [address] [facility] [address] Dear Ms. White, Due to a change in your provider's schedule, it has become necessary to cancel the following appointment: Grayson Solorzano MD Date: 10/04/17 We apologize for any inconvenience to you however your provider would still like to see you. Please call us at [phone] to reschedule your appointment. Thank you. Sincerely, Appointment Staff FECAL OCCULT BLD Collected: 06/26/2017 Status: F Source: [facility] 11:52 AM [facility] REPOSITORY TYPE CODE TESTS RESULT OUT OF REFERENCE UNITS RANGE LAB IFO Negative Immuno Negative FOB Result Comment: This test was developed and its performance characteristics determined by [facility]'s [facility] [place] [facility]). It has not been cleared or approved by the FDA. [facility] is regulated under CLIA as qualified to perform high-complexity testing. This test is used for clinical purposes. It should not be regarded as investigational or for research. Performed By: #### IFOBT #### [facility] [address] [place], [place] [address] PROGRESS Observed: 06/22/2017 Status: COMPLETED Source: [place] 10:35 AM [facility] REPOSITORY HNO ID: [id number] Author: Diallo Ponce (Pa) Service: (none) Author Type: Physician Preassembler And Inspector Type: Progress Notes Filed: 06/22/2017 11:12 AM Note Text: Subjective HPI Pt presents with ear pain and congestion x 3 weeks. She Had been seen on 06/04 and placed on cefidnir and zyrtec. She had a sinus infection and still has sinus headache. No history of asthma, she is not a smoker but is exposed to second hand smoke. No fever. Review of Systems Constitutional: Negative for chills and fever. HENT: Positive for congestion. Eyes: Negative. Respiratory: Positive for cough. Cardiovascular: Negative. Gastrointestinal: Negative. Skin: Negative. All other systems reviewed and are negative. 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 - Esophageal reflux 2005 - Fracture of right clavicle 11/15/2015 - Generalized anxiety disorder 2003 with panic attacks - Herpes genitalis - Hypoparathyroidism ([facility]) parathyroid implant Left forearm - IFG (impaired fasting glucose) 05/08/2014 - Impaired fasting glucose - Insomnia 03/16/2013 - Iron deficiency anemia - Irritable bowel syndrome 1997 diarrhea prone, dairy exacerbates - MEN 1 (multiple endocrine neoplasia) ([facility]) Dr Solorzano [facility] - Morbid obesity ([facility]) 2006 s/p sleeve Dr Dale - Obstructive sleep apnea fair complaince with CPAP - Primary hyperparathyroidism ([facility]) 3 03/09 gland parathyroidectomy - Renal insufficiency - Sternoclavicular joint subluxation 07/16/2016 Current Outpatient Prescriptions: amphetamine-dextroamphetamine XR (ADDERALL XR) 20 mg 24 hr capsule Take 1 capsule by mouth twice daily for 30 days.Earliest Fill Date: 06/14/17 Disp: 60 capsule Rfl: 0 topiramate (TOPAMAX) 25 mg tablet Take 1 tablet by mouth twice daily. Disp: 60 tablet Rfl: 1 albuterol HFA (PROVENTIL HFA, VENTOLIN HFA) 90 mcg/actuation inhaler Inhale 2 Puffs as instructed every 6 hours. Disp: 1 Inhaler Rfl: 0 fluticasone (FLONASE) 50 mcg/actuation nasal spray instill 1 spray into each nostril once daily at bedtime as directed Disp: 16 g Rfl: 0 cetirizine (ZYRTEC) 10 mg tablet Take 1 tablet by mouth once daily as needed. Disp: 30 tablet Rfl: 2 Omeprazole 40 mg capsule Take 1 capsule by mouth once daily. Disp: 30 capsule Rfl: 11 spironolactone (ALDACTONE) 100 mg tablet take 1 tablet by mouth once daily Disp: 30 tablet Rfl: 3 calcitriol (ROCALTROL) 0.5 mcg capsule take 3 capsules by mouth once daily Disp: 90 capsule Rfl: 11 meclizine (ANTIVERT) 25 mg tab Take 1 tablet by mouth three times daily as needed (for dizziness). Disp: 30 tablet Rfl: 0 OMEGA3/DHA/EPA/FISH OIL/VIT D3 (OMEGA-3 + VITAMIN D3 ORAL) Take 2,000 Units by mouth once daily. two tablets daily Disp: Rfl: docusate sodium (COLACE) 100 mg capsule Take 1 capsule by mouth twice daily as needed for Constipation. Disp: 60 capsule Rfl: 1 buPROPion XL (WELLBUTRIN XL) 150 mg 24 hr tablet Take 1 tablet by mouth once daily. (Psychiatrist) Disp: 180 tablet Rfl: 3 buPROPion XL (WELLBUTRIN XL) 300 mg 24 hr tablet Take 1 tablet by mouth once daily. Disp: Rfl: 0 cyanocobalamin (VITAMIN B-12) 1,000 mcg tab Take 1 tablet by mouth once daily. Disp: 90 tablet Rfl: 3 ALPRAZolam (XANAX) 0.5 mg tablet Take 1 tablet by mouth daily at bedtime. Disp: Rfl: COMPOUNDED PRESCRIPTION Tums chewable gummies (470 mg calcium each) takes three PO tid Disp: Rfl: 0 venlafaxine XR (EFFEXOR XR) 150 mg 24 hr capsule Take 1 capsule by mouth once daily. Disp: 90 capsule Rfl: 3 methylPREDNISolone (MEDROL, DANICA,) 4 mg Dose-Pack Take by mouth. As directed on package Disp: 1 Package Rfl: 0 No current facility-administered medications for this visit. PAST SURGICAL HISTORY Procedure Laterality Date - AUTOTRANSPLANT, PARATHYROID 07/27/06 left forearm - DANDC, DIAG AND/OR THERAPEUTIC 1991 For excessive menstruation - EGD W/O OR W/BRUSH/WASH 2005 - EXPLORE PARATHYROID GLANDS 12/08/2005 3 05/09 parathyroid glans removed - GASTRIC BYPASS HX 2006 gastric sleeve - INCISION EARDRUM,ASPIR,GEN ANESTH Myringotomy/tubes - MENISCAL REPAIR SYS,[id number] Right - PAST SURGICAL HISTORY OF Left foot fracture repair - REMOVAL GALLBLADDER Cholecystectomy - REPAIR OF NASAL SEPTUM Septoplasty - TOTAL ABDOM HYSTERECTOMY 01/16/09 [facility] FAMILY HISTORY Problem Relation Age of Onset - Diabetes Mother due to surgery on pancreas - Genetic Mother MEN 1 - Cancer Mother liver - Emphysema Father bacterial pneumonia - Heart Maternal Grandmother - Cancer Paternal Grandmother uterine cancer - Heart Paternal Grandfather - Cervical Cancer Sister - Cancer Maternal Aunt lymphoma - Cancer Maternal Aunt lymphoma - Cancer Maternal Uncle brain - Hypertension Sister - Genetic Sister MEN 1 Social History Substance Use Topics - Smoking status: Never Smoker - Smokeless tobacco: Never Used - Alcohol use Yes Comment: occasionally - social BP 120/80 Pulse 78 Temp 36.8 ?C (98.3 ?F) (Tympanic) Resp 16 Wt 134.7 kg (297 lb) LMP 02/01/2007 SpO2 98% BMI 46.52 kg/m2 Objective Physical Exam Constitutional: She is oriented to person, place, and time and well-developed, well-nourished, and in no distress. HENT: Head: Normocephalic and atraumatic. Right Ear: Tympanic membrane, external ear and ear canal normal. Left Ear: Tympanic membrane, external ear and ear canal normal. Nose: Mucosal edema and rhinorrhea present. Right sinus exhibits maxillary sinus tenderness and frontal sinus tenderness. Left sinus exhibits maxillary sinus tenderness and frontal sinus tenderness. Mouth/Throat: Uvula is midline, oropharynx is clear and moist and mucous membranes are normal. Hoarse voice noted Eyes: Conjunctivae are normal. Neck: Normal range of motion. Neck supple. Cardiovascular: Normal rate, regular rhythm and normal heart sounds. Pulmonary/Chest: Effort normal and breath sounds normal. Lymphadenopathy: She has no cervical adenopathy. Neurological: She is alert and oriented to person, place, and time. Skin: Skin is warm and dry. No rash noted. Psychiatric: Affect and judgment normal. Nursing note and vitals reviewed. ASSESSMENT/PLAN: 1. Acute non-recurrent sinusitis, unspecified location - ICD9: 461.9, ICD10: J01.90 - Will begin treatment with Augmentin 875 mg PO BID for 10 days - The patient should also be given tessalon for the first 5-7 days of treatment. - Supportive care with plenty of fluids, rest, and analgesia prn. - Follow up in one week if symptoms persist or worsen. SHAUNA Grady Observed: 06/22/2017 Status: COMPLETED Source: [place] 10:15 AM [facility] REPOSITORY Office Visit (WSTR) THUY WHITE ([id number]) 1965 F [place] Date Time Provider Department 06/22/17 10:15 AM DIALLO PONCE) [facility] During your visit today, we recorded the following information about you: Temperature Pulse Respiration Blood pressure 98.3 degrees 78/minute 16/minute 120/80 Weight 134.7 kg Diallo Ponce PA-C 06/22/2017 11:12 AM Signed Subjective HPI Pt presents with ear pain and congestion x 3 weeks. She Had been seen on 06/04 and placed on cefidnir and zyrtec. She had a sinus infection and still has sinus headache. No history of asthma, she is not a smoker but is exposed to second hand smoke. No fever. Review of Systems Constitutional: Negative for chills and fever. HENT: Positive for congestion. Eyes: Negative. Respiratory: Positive for cough. Cardiovascular: Negative. Gastrointestinal: Negative. Skin: Negative. All other systems reviewed and are negative. 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 - Esophageal reflux 2005 - Fracture of right clavicle 11/15/2015 - Generalized anxiety disorder 2003 with panic attacks - Herpes genitalis - Hypoparathyroidism ([facility]) parathyroid implant Left forearm - IFG (impaired fasting glucose) 05/08/2014 - Impaired fasting glucose - Insomnia 03/16/2013 - Iron deficiency anemia - Irritable bowel syndrome 1998 diarrhea prone, dairy exacerbates - MEN 1 (multiple endocrine neoplasia) ([facility]) Dr Solorzano, [place] - Morbid obesity ([facility]) 2006 s/p sleeve Dr Dale - Obstructive sleep apnea fair complaince with CPAP - Primary hyperparathyroidism ([facility]) 3 1/2 gland parathyroidectomy - Renal insufficiency - Sternoclavicular joint subluxation 07/16/2016 Current Outpatient Prescriptions: amphetamine-dextroamphetamine XR (ADDERALL XR) 20 mg 24 hr capsule Take 1 capsule by mouth twice daily for 30 days.Earliest Fill Date: 06/14/17 Disp: 60 capsule Rfl: 0 topiramate (TOPAMAX) 25 mg tablet Take 1 tablet by mouth twice daily. Disp: 60 tablet Rfl: 1 albuterol HFA (PROVENTIL HFA, VENTOLIN HFA) 90 mcg/actuation inhaler Inhale 2 Puffs as instructed every 6 hours. Disp: 1 Inhaler Rfl: 0 fluticasone (FLONASE) 50 mcg/actuation nasal spray instill 1 spray into each nostril once daily at bedtime as directed Disp: 16 g Rfl: 0 cetirizine (ZYRTEC) 10 mg tablet Take 1 tablet by mouth once daily as needed. Disp: 30 tablet Rfl: 2 Omeprazole 40 mg capsule Take 1 capsule by mouth once daily. Disp: 30 capsule Rfl: 11 spironolactone (ALDACTONE) 100 mg tablet take 1 tablet by mouth once daily Disp: 30 tablet Rfl: 3 calcitriol (ROCALTROL) 0.5 mcg capsule take 3 capsules by mouth once daily Disp: 90 capsule Rfl: 11 meclizine (ANTIVERT) 25 mg tab Take 1 tablet by mouth three times daily as needed (for dizziness). Disp: 30 tablet Rfl: 0 OMEGA3/DHA/EPA/FISH OIL/VIT D3 (OMEGA-3 + VITAMIN D3 ORAL) Take 2,000 Units by mouth once daily. two tablets daily Disp: Rfl: docusate sodium (COLACE) 100 mg capsule Take 1 capsule by mouth twice daily as needed for Constipation. Disp: 60 capsule Rfl: 1 buPROPion XL (WELLBUTRIN XL) 150 mg 24 hr tablet Take 1 tablet by mouth once daily. (Psychiatrist) Disp: 180 tablet Rfl: 3 buPROPion XL (WELLBUTRIN XL) 300 mg 24 hr tablet Take 1 tablet by mouth once daily. Disp: Rfl: 0 cyanocobalamin (VITAMIN B-12) 1,000 mcg tab Take 1 tablet by mouth once daily. Disp: 90 tablet Rfl: 3 ALPRAZolam (XANAX) 0.5 mg tablet Take 1 tablet by mouth daily at bedtime. Disp: Rfl: COMPOUNDED PRESCRIPTION Tums chewable gummies (470 mg calcium each) takes three PO tid Disp: Rfl: 0 venlafaxine XR (EFFEXOR XR) 150 mg 24 hr capsule Take 1 capsule by mouth once daily. Disp: 90 capsule Rfl: 3 methylPREDNISolone (MEDROL, DANICA,) 4 mg Dose-Pack Take by mouth. As directed on package Disp: 1 Package Rfl: 0 No current facility-administered medications for this visit. PAST SURGICAL HISTORY Procedure Laterality Date - AUTOTRANSPLANT, PARATHYROID 07/27/06 left forearm - DANDamp;C, DIAG AND/OR THERAPEUTIC 1992 For excessive menstruation - EGD W/O OR W/BRUSH/WASH 2005 - EXPLORE PARATHYROID GLANDS 12/08/2005 3 05/09 parathyroid glans removed - GASTRIC BYPASS HX 2006 gastric sleeve - INCISION EARDRUM,ASPIR,GEN ANESTH Myringotomy/tubes - MENISCAL REPAIR SYS,[id number] Right - PAST SURGICAL HISTORY OF Left foot fracture repair - REMOVAL GALLBLADDER Cholecystectomy - REPAIR OF NASAL SEPTUM Septoplasty - TOTAL ABDOM HYSTERECTOMY 01/16/09 [facility] Problem Relation Age of Onset - Diabetes Mother due to surgery on pancreas - Genetic Mother MEN 1 - Cancer Mother liver - Emphysema Father bacterial pneumonia - Heart Maternal Grandmother - Cancer Paternal Grandmother uterine cancer - Heart Paternal Grandfather - Cervical Cancer Sister - Cancer Maternal Aunt lymphoma - Cancer Maternal Aunt lymphoma - Cancer Maternal Uncle brain - Hypertension Sister - Genetic Sister MEN 1 Social History Substance Use Topics - Smoking status: Never Smoker - Smokeless tobacco: Never Used - Alcohol use Yes Comment: occasionally - social BP 120/80 Pulse 78 Temp 36.8 ?C (98.3 ?F) (Tympanic) Resp 16 Wt 134.7 kg (297 lb) LMP 02/01/2007 SpO2 98% BMI 46.52 kg/m2 Objective Physical Exam Constitutional: She is oriented to person, place, and time and well-developed, well-nourished, and in no distress. HENT: Head: Normocephalic and atraumatic. Right Ear: Tympanic membrane, external ear and ear canal normal. Left Ear: Tympanic membrane, external ear and ear canal normal. Nose: Mucosal edema and rhinorrhea present. Right sinus exhibits maxillary sinus tenderness and frontal sinus tenderness. Left sinus exhibits maxillary sinus tenderness and frontal sinus tenderness. Mouth/Throat: Uvula is midline, oropharynx is clear and moist and mucous membranes are normal. Hoarse voice noted Eyes: Conjunctivae are normal. Neck: Normal range of motion. Neck supple. Cardiovascular: Normal rate, regular rhythm and normal heart sounds. Pulmonary/Chest: Effort normal and breath sounds normal. Lymphadenopathy: She has no cervical adenopathy. Neurological: She is alert and oriented to person, place, and time. Skin: Skin is warm and dry. No rash noted. Psychiatric: Affect and judgment normal. Nursing note and vitals reviewed. ASSESSMENT/PLAN: 1. Acute non-recurrent sinusitis, unspecified location - ICD9: 461.9, ICD10: J01.90 - Will begin treatment with Augmentin 875 mg PO BID for 10 days - The patient should also be given tessalon for the first 5-7 days of treatment. - Supportive care with plenty of fluids, rest, and analgesia prn. - Follow up in one week if symptoms persist or worsen. Diallo Ponce PA-C Referring Provider: SELF [200] Allergies As of Date: 06/22/2017 Noted Allergy Reaction CONTRAST DYE 10/22/2007 2 - Rash FERROUS GLUCONATE 06/14/2012 8 - GI Upset Comments: Nausea MORPHINE 05/14/2005 2 - Rash OXYCONTIN (OXYCODONE HCL) 01/07/2007 2 - Rash 7 - Swelling Comments: Rash, red and swollen eyes, facial swelling PROPRANOLOL 04/02/2017 9 - Itching Date Reviewed: 06/22/2017 Reviewed by: Katya Calzada Ma - Fully Assessed Reason for Visit: Chest Congestion [236] Cmt: sinus pressure and drainage, ear pain x 3 weeks, seen in ed on 06/04, given steriods and breathing treatments and antibiotic Primary Visit Diagnosis:Acute non-recurrent sinusitis, unspecified location [J01.90] Order(s):amoxicillin-clavulanic acid (AUGMENTIN) 875-125 mg per tabletTake 1 tablet by mouth twice daily for 10 days.Disp: 20 tabletRfl: 0 benzonatate (TESSALON PERLE) 100 mg capsuleTake 2 capsules by mouth three times daily as needed.Disp: 30 capsuleRfl: 0 Prescriptions as of 06/22/2017 Sig: DEXTROAMPHETAMINE-AMPHETAMINE* Take 1 capsule by mouth twice* TOPIRAMATE 25 MG TABLET Take 1 tablet by mouth twice * ALBUTEROL SULFATE HFA 90 MCG/* Inhale 2 Puffs as instructed * FLUTICASONE 50 MCG/ACTUATION * instill 1 spray into each nos* CETIRIZINE 10 MG TABLET Take 1 tablet by mouth once d* OMEPRAZOLE 40 MG CAPSULE,VANE* Take 1 capsule by mouth once * SPIRONOLACTONE 100 MG TABLET take 1 tablet by mouth once d* CALCITRIOL 0.5 MCG CAPSULE take 3 capsules by mouth once* MECLIZINE 25 MG TABLET Take 1 tablet by mouth three * OMEGA-3 + VITAMIN D3 ORAL Take 2,000 Units by mouth onc* DOCUSATE SODIUM 100 MG CAPSULE Take 1 capsule by mouth twice* BUPROPION XL 150 MG TAB Take 1 tablet by mouth once d* BUPROPION XL 300 MG 24 HR TAB Take 1 tablet by mouth once d* CYANOCOBALAMIN (VIT B-12) 1,0* Take 1 tablet by mouth once d* ALPRAZOLAM 0.5 MG TABLET Take 1 tablet by mouth daily * COMPOUNDED PRESCRIPTION Tums chewable gummies (470 mg* VENLAFAXINE ER 150 MG CAPSULE* Take 1 capsule by mouth once * AMOXICILLIN 875 MG-POTASSIUM * Take 1 tablet by mouth twice * BENZONATATE 100 MG CAPSULE Take 2 capsules by mouth thre* METHYLPREDNISOLONE 4 MG TABLE* Take by mouth. As directed on* Medication notes this encounter METHYLPREDNISOLONE 4 MG TABLETS IN A DOSE PACK >> Katya Calzada Ma 06/22/2017 10:15 AM >> KATYA CALZADA MA Jun 22, 2017 10:15 AM done Problem List As Of Date 06/22/2017 Noted Resolved PRIMARY HYPERPARATHYROIDISM [E21.0] INVALID FOR*01/07/2007 Morbid obesity (HCC) [E66.01] More... Dysmenorrhea [N94.6] 02/25/2009 Irregular Menstrual Cycle [N92.6] 02/25/2009 More... Depression [F32.9] Priority: C More... 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 Complex Endometrial Hyperplasia without Atypia *INVALID FOR*02/25/2009 More... LENO (generalized anxiety disorder) [F41.1] INVALID FOR* Priority: D Eating disorder NEC INVALID FOR*04/11/2014 Hirsutism [L68.0] INVALID FOR*04/11/2014 Vitamin B12 deficiency [E53.8] INVALID FOR* Onychia and paronychia of toe [L03.039] INVALID FOR*01/31/2014 Nonunion of fracture [MZV8866] INVALID FOR*01/31/2014 Other complications due to other internal ortho*INVALID FOR*01/31/2014 Gastric bypass status for obesity [Z98.84] CKD (chronic kidney disease) stage 3, GFR 30-59*INVALID FOR* Priority: F More... ADHD (attention deficit hyperactivity disorder)*INVALID FOR* IFG (impaired fasting glucose) [R73.01] INVALID FOR*10/03/2016 Sleep apnea [G47.30] INVALID FOR* More... Pancreatic mass [K86.9] INVALID FOR* More... Hyperlipidemia [E78.5] INVALID FOR* More... Hypocalcemia [E83.51] INVALID FOR*10/01/2016 Priority: Severe More... Hypokalemia [E87.6] INVALID FOR*10/01/2016 Fracture of right clavicle [S42.001A] INVALID FOR*10/01/2016 PTSD (post-traumatic stress disorder) [F43.10] INVALID FOR* Sternoclavicular joint subluxation [S43.203A] INVALID FOR*10/01/2016 Subluxation of right sternoclavicular joint [S4*INVALID FOR* Attention deficit hyperactivity disorder (ADHD)*INVALID FOR* BASIL (obstructive sleep apnea) [G47.33] INVALID FOR* Prescriptions ordered this encounter Disp Refills Start End AMOXICILLIN 875 MG-POTASSIUM CLAVULA* 20 t* 0 06/22/2017 07/02/2017 Route: ORAL Sig: Take 1 tablet by mouth twice daily for 10 days. BENZONATATE 100 MG CAPSULE 30 c* 0 06/22/2017 Route: ORAL Sig: Take 2 capsules by mouth three times daily as needed. Encounter Status:Closed by DIALLO PONCE PA-C on 06/22/17 ED NOTE Observed: 06/07/2017 Status: COMPLETED Source: [place] 6:43 PM [facility] HNO ID: [id number] Author: Jolanta JonesRnKiara Thao RN Service: (none) Author Type: Registered Nurse Type: ED Notes Filed: 06/07/2017 6:44 PM Note Text: Discharge instructions d/w pt at bedside. Stated understanding with no further questions for this nurse. Encouraged f/u with PCP and referring doctors given. Stated understanding. Prescription(S) were given X2. ED NOTE Observed: 06/07/2017 Status: COMPLETED Source: [place] 6:25 PM [facility] HNO ID: [id number] Author: Jolanta JonesRn) MELIDA Thao Service: (none) Author Type: Registered Nurse Type: ED Notes Filed: 06/07/2017 6:27 PM Note Text: Oxygen saturation study done while pt was walking. The lowest it dropped was 89%, but it stayed around 94-96% RA. Pt states I feel so much better than I did earlier and I don't even need to stop to rest! PIERO Adorno made aware of situation. ED NOTE Observed: 06/07/2017 Status: COMPLETED Source: [place] 5:38 PM [facility] HNO ID: [id number] Author: Jolanta Thao RN Service: (none) Author Type: Registered Nurse Type: ED Notes Filed: 06/07/2017 5:39 PM Note Text: Pt provided with warm blanket for comfort. She states that she feels shaky because of the breathing treatment but that her breathing feels a little easier. XR CHEST 2V FRONTAL/LAT Observed: 06/07/2017 Status: F Source: [place] 4:38 PM [facility] * * *Final Report* * * DATE OF EXAM: Jun 07 2017 4:38PM MDX [id number] - XR CHEST 2V FRONTAL/LAT / PROCEDURE REASON: Cough in adult * * * * Physician Interpretation * * * * EXAMINATION: CHEST RADIOGRAPH (2 VIEW FRONTAL and LATERAL) Clinical History: Cough in adult MQ: XC2_4 Comparison: Chest x-ray on 05/08/2014 RESULT: Lines, tubes, and devices: None. Lungs and pleura: No consolidation. No lung mass. No pleural effusion. Cardiomediastinal silhouette: Normal cardiomediastinal silhouette. Other: None. IMPRESSION: No acute radiographic abnormality. Paint Grinder: WENDY Transcribe Date/Time: Jun 07 2017 4:47P Dictated by : PINEDA MELARA MD This examination was interpreted and the report reviewed and electronically signed by: PINEDA MELARA MD on Jun 07 2017 4:48PM EST [id number] CT BRAIN WO IVCON Observed: 06/07/2017 Status: F Source: [place] 4:33 PM [facility]IN[facility] OTHER CAMPUS REPOSITORY * * *Final Report* * * DATE OF EXAM: Jun 07 2017 4:33PM [facility] [place] BRAIN WO IVCON / PROCEDURE REASON: Headache * * * * Physician Interpretation * * * * EXAMINATION: CT BRAIN WO IVCON HISTORY: Headache TECHNIQUE: Serial axial images without IV contrast were obtained from the vertex to the foramen magnum. MQ: [id number]_3 CT Dose-Length Product (DLP): 637 mGy*cm CT Dose Reduction Employed: Automated exposure control (AEC) COMPARISON: None. RESULT: Post-operative change: None. Acute change: No evidence of an acute infarct or other acute parenchymal process. Hemorrhage: No evidence of acute intracranial hemorrhage. Mass Lesion / Mass Effect: There is no evidence of an intracranial mass or extraaxial fluid collection. No significant mass effect. Chronic change: None apparent. Parenchyma: There is no significant volume loss. The brain parenchyma is otherwise within normal limits for age. Ventricles: The ventricles are within normal limits of size and configuration for age. Paranasal sinuses and skull base: Polypoid mucosal thickening involving bilateral maxillary sinuses. Probably status post left antrectomy. There appears to be a defect in the nasal septum. Opacities are identified in the ethmoid sinuses and frontal sinuses. The skull base and imaged soft tissues are unremarkable. IMPRESSION: No acute intracranial process identified. Extensive sinus disease as described above. Paint Grinder: WENDY Transcribe Date/Time: Jun 07 2017 4:46P Dictated by : PINEDA MELARA MD This examination was interpreted and the report reviewed and electronically signed by: PINEDA MELARA MD on Jun 07 2017 4:52PM EST [id number] CBC AND DIFFERENTIAL Collected: 06/07/2017 Status: F Source: [place] 4:15 PM CLINIC OTHER CAMPUS REPOSITORY TYPE CODE TESTS RESULT OUT OF REFERENCE UNITS RANGE LAB WBC 3.70-11.00 k/uL WBC 10.39 LAB RBC 3.90-5.20 m/uL RBC High 5.60 LAB HGB 11.5-15.5 g/dL Hemoglobin 13.2 LAB HCT 36.0-46.0 % Hematocrit 42.6 LAB MCV 80.0-100.0 fL Low MCV 76.1 LAB MCH 26.0-34.0 pG Low MCH 23.6 LAB MCHC 30.5-36.0 g/dL MCHC 31.0 LAB RDWCV 11.5-15.0 % RDW-CV High 18.8 LAB PLTCT 150-400 k/uL Platelet High Count 490 LAB MPV 9.0-12.7 fL MPV 10.0 LAB ANEUT % Neut% 73.6 LAB AANEUT 1.45-7.50 k/uL Abs Neut High 7.65 LAB ALYMP % Lymph% 18.7 LAB AALYMP 1.00-4.00 k/uL Abs Lymph 1.94 LAB AMONO % [place]% 5.8 LAB AAMONO <0.87 k/uL Abs [place] 0.60 LAB AEOS % Eosin% 1.5 LAB AAEOS <0.46 k/uL Abs Eosin 0.16 LAB ABASO % Baso% 0.4 LAB AABASO <0.11 k/uL Abs Baso 0.04 Performed By: #### CBCDIF, CMP, MG1 #### [facility] [address] [phone] COMP METABOLIC PANEL Collected: 06/07/2017 Status: F Source: [place] 4:15 PM CLINIC OTHER CAMPUS REPOSITORY TYPE CODE TESTS RESULT OUT OF REFERENCE UNITS RANGE LAB TP 6.3-8.0 g/dL Protein, Total 7.8 LAB ALB 3.9-4.9 g/dL Low Albumin 3.5 LAB CA 8.5-10.2 mg/dL Calcium, Total 10.2 LAB TBIL 0.2-1.3 mg/dL Bilirubin, Total 0.3 LAB ALKP 32-117 U/L Alkaline Phosphatase 88 LAB AST 13-35 U/L Low AST 12 LAB GLU 74-99 mg/dL Glucose High 120 Result Comment: The [place] Diabetes Association (ADA) provides guidance for cutoff values for fasting glucose and random glucose. The ADA defines fasting as no caloric intake for at least 8 hours. Fas ting plasma glucose results between 100 to 125 mg/dL indicate increased risk for diabetes (prediabetes). Fasting plasma glucose results greater than or equal to 126 mg/dL meet the criteria for diagnosis of diabetes. In the absence of unequivocal hyperglycemia, results should be confirmed by repeat testing. In a patient with classic symptoms of hyperglycemia or hyperglycemic crisis, random plasma glucose results greater than or equal to 200 mg/dL meet the criteria for diagnosis of diabetes. Reference: Standards of Medical Care in Diabetes 2016, [place] [employer] Association. Diabetes Care. 2016.39(Suppl 1). LAB BUN 7-21 mg/dL BUN 20 LAB CRET 0.58-0.96 mg/dL Creatinine High 1.55 LAB NA 136-144 mmol/L Low Sodium 133 LAB K 3.7-5.1 mmol/L Potassium 3.7 LAB CL 97-105 mmol/L Low Chloride 92 LAB CO2 22-30 mmol/L CO2 29 LAB AGAP 9-18 mmol/L Anion Gap 12 LAB ALT 7-38 U/L ALT 7 LAB GFRAA eGFR- Amer. 43 LAB GFRNAA . eGFR-All Other Races 35 Result Comment: eGFR (Estimated GFR) Units of measure: mL/min/1.73 meters squared eGFR is derived from the reexpressed MDRD Study equation using the following parameters: serum creatinine, age, gender and race. The creatinine assay has been calibrated to be traceable to IDMS. An eGFR <60 mL/min/1.73m2 for >3 months is consistent with chronic kidney disease. Refer to KDOQI guidelines for clinical interpretation. In patients with unstable renal function, e.g. those with acute kidney injury, the eGFR may not accurately reflect actual GFR. Performed By: #### CBCDIF, CMP, MG1 #### [facility] [address] [place] [address] MAGNESIUM Collected: 06/07/2017 Status: F Source: [place] 4:15 PM CLINIC OTHER CAMPUS REPOSITORY TYPE CODE TESTS RESULT OUT OF REFERENCE UNITS RANGE LAB MG 1.7-2.3 mg/dL Magnesium 1.9 Performed By: #### CBCDIF, CMP, MG1 #### [facility] [address] [place] [address] NT PRO BNP Collected: 06/07/2017 Status: F Source: [place] 4:15 PM CLIN[facility] OTHER CAMPUS REPOSITORY TYPE CODE TESTS RESULT OUT OF REFERENCE UNITS RANGE LAB PBNP <125 pg/mL PRO B Natr 73 Peptide Performed By: #### NTBNP, CKCKMB #### [facility] [address] [place] [phone] CK, TOTAL AND CKMB Collected: 06/07/2017 Status: F Source: [place] 4:[address] [facility] [place] REPOSITORY TYPE CODE TESTS RESULT OUT OF REFERENCE UNITS RANGE LAB CK 42-196 U/L 42 CK LAB MB <4.3 ng/mL MB 1.2 LAB CKMBRI 0.0-4.0 % CK CK MB MB % not % reported with CK <100 U/L. Performed By: #### NTBNP, CKCKMB #### [facility] [address] [place] [phone] TROPONIN T Collected: 06/07/2017 Status: F Source: [place] 4:[address] [facility] OTHER [place] REPOSITORY TYPE CODE TESTS RESULT OUT OF REFERENCE UNITS RANGE LAB TROPT 0.000-0.029 ng/mL Troponin T <0.010 Performed By: #### ENRIQUETA #### [facility] [address] [place] [phone] ED PROV NOTE Observed: 06/07/2017 Status: COMPLETED Source: [place] 3:[address] [facility] [place] REPOSITORY HNO ID: [id number] Author: Varghese Long III Service: (none) Author Type: Physician Preassembler And Inspector Type: ED Provider Notes Filed: 06/07/2017 6:28 PM Note Text: ED Provider Note Patient Name: Thuy White SERVICE DATE: 06/07/17 History Patient presents with: Throat Problem Shortness of Breath HPI HPI: 52-year-old female with a history of ADD, benign tumor of pancreas, personality disorder, panic attacks, anxiety, genital herpes, hypoparathyroidism, insomnia, IBS, multiple endocrine neoplasia, morbid obesity presents to the emergency department for evaluation of cough, congestion, rhinorrhea. The patient is also having some sinus pressure and headaches. The patient has noted these symptoms over the last week. On 06/04/17 the patient was seen and evaluated by primary care physician and started on antibiotics, Flonase, Zyrtec. The patient rates that these symptoms have not really improved despite being on these medications. 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 The patient is not having any specific chest pain at this time. No pain with deep inspiration. The patient states that she does feel short of breath. She has noted some shortness of breath with exertion. No significant orthopnea. The patient denies any history of PE or DVT or history of carcinoma. The patient is not a smoker. 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 - Esophageal reflux 2005 - Fracture of right clavicle 11/15/2015 - Generalized anxiety disorder 2004 with panic attacks - Herpes genitalis - Hypoparathyroidism ([facility]) parathyroid implant Left forearm - IFG (impaired fasting glucose) 05/08/2014 - Impaired fasting glucose - Insomnia 03/16/2013 - Iron deficiency anemia - Irritable bowel syndrome 1997 diarrhea prone, dairy exacerbates - MEN 1 (multiple endocrine neoplasia) ([facility]) [facility] - Morbid obesity ([facility]) 2006 s/p sleeve Dr Dale - Obstructive sleep apnea fair complaince with CPAP - Primary hyperparathyroidism ([facility]) 3 03/09 gland parathyroidectomy - Renal insufficiency - Sternoclavicular joint subluxation 07/16/2016 PAST SURGICAL HISTORY Procedure Laterality Date - AUTOTRANSPLANT, PARATHYROID 07/27/06 left forearm - DANDC, DIAG AND/OR THERAPEUTIC 1992 For excessive menstruation - EGD W/O OR W/BRUSH/WASH 2005 - EXPLORE PARATHYROID GLANDS 12/08/2005 3 3 parathyroid glans removed - GASTRIC BYPASS HX 2006 gastric sleeve - INCISION EARDRUM,ASPIR,GEN ANESTH Myringotomy/tubes - MENISCAL REPAIR SYS,[id number] Right - PAST SURGICAL HISTORY OF Left foot fracture repair - REMOVAL GALLBLADDER Cholecystectomy - REPAIR OF NASAL SEPTUM Septoplasty - TOTAL ABDOM HYSTERECTOMY 01/16/09 [facility] Medications: No current facility-administered medications on file prior to encounter. Current Outpatient Prescriptions on File Prior to Encounter: topiramate (TOPAMAX) 25 mg tablet Take 1 tablet by mouth twice daily. fluticasone (FLONASE) 50 mcg/actuation nasal spray instill 1 spray into each nostril once daily at bedtime as directed cefdinir (OMNICEF) 300 mg capsule Take 1 capsule by mouth twice daily for 10 days. cetirizine (ZYRTEC) 10 mg tablet Take 1 tablet by mouth once daily as needed. Omeprazole 40 mg capsule Take 1 capsule by mouth once daily. amphetamine-dextroamphetamine XR (ADDERALL XR) 20 mg 24 hr capsule Take 1 capsule by mouth twice daily for 30 days.Earliest Fill Date: 05/10/17 spironolactone (ALDACTONE) 100 mg tablet take 1 tablet by mouth once daily calcitriol (ROCALTROL) 0.5 mcg capsule take 3 capsules by mouth once daily meclizine (ANTIVERT) 25 mg tab Take 1 tablet by mouth three times daily as needed (for dizziness). OMEGA3/DHA/EPA/FISH OIL/VIT D3 (OMEGA-3 + VITAMIN D3 ORAL) Take 2,000 Units by mouth once daily. two tablets daily docusate sodium (COLACE) 100 mg capsule Take 1 capsule by mouth twice daily as needed for Constipation. buPROPion XL (WELLBUTRIN XL) 150 mg 24 hr tablet Take 1 tablet by mouth once daily. (Psychiatrist) buPROPion XL (WELLBUTRIN XL) 300 mg 24 hr tablet Take 1 tablet by mouth once daily. cyanocobalamin (VITAMIN B-12) 1,000 mcg tab Take 1 tablet by mouth once daily. ALPRAZolam (XANAX) 0.5 mg tablet Take 1 tablet by mouth daily at bedtime. COMPOUNDED PRESCRIPTION Tums chewable gummies (470 mg calcium each) takes three PO tid venlafaxine XR (EFFEXOR XR) 150 mg 24 hr capsule Take 1 capsule by mouth once daily. Allergies: Contrast Dye; Ferrous Gluconate; Morphine; Oxycontin [Oxycodone Hcl]; Propranolol Family History: FAMILY HISTORY Problem Relation Age of Onset - Diabetes Mother due to surgery on pancreas - Genetic Mother MEN 1 - Cancer Mother liver - Emphysema Father bacterial pneumonia - Heart Maternal Grandmother - Cancer Paternal Grandmother uterine cancer - Heart Paternal Grandfather - Cervical Cancer Sister - Cancer Maternal Aunt lymphoma - Cancer Maternal Aunt lymphoma - Cancer Maternal Uncle brain - Hypertension Sister - Genetic Sister MEN 1 Social History: Social History Marital status: Spouse name: Kade Years of education: 14 Number of children: 0 Occupational History 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 HENT: Positive for congestion, rhinorrhea, sinus pain and sinus pressure. Negative for dental problem, drooling and nosebleeds. Eyes: Negative for photophobia. Respiratory: Positive for cough, chest tightness and shortness of breath. Cardiovascular: Negative for chest pain and leg swelling. Gastrointestinal: Negative for abdominal pain, constipation, diarrhea, nausea and vomiting. Genitourinary: Negative for dysuria. Musculoskeletal: Negative for back pain. Skin: Negative for color change, pallor, rash and wound. Neurological: Positive for headaches. Negative for dizziness. Hematological: Negative for adenopathy. All other systems reviewed and are negative. Physical Exam BP 138/81 Pulse 101 Temp (Src) 98.4 (Oral) Resp 24 Ht 5' 7 (1.70m) Wt 290 lb (131.5kg) SpO2 98% LMP 02/01/2007 BMI 45.41 kg/(m2). Physical Exam Nurse's notes and vital signs reviewed. The patient is not hypoxic. General: Alert, no acute distress, patient resting comfortably Patient is not toxic or lethargic. Obese female. Skin: Warm, intact, no pallor noted. There is no evidence of rash at this time. Head: Normocephalic, atraumatic Eye: Normal conjunctiva Ears, Nose, Throat: Right tympanic membrane erythematous, left tympanic membrane clear. No drainage or discharge noted. No pre- or post-auricular tenderness, erythema, or swelling noted. Moderate nasal congestion rhinorrhea. No facial erythema or swelling is noted. Posterior oropharynx shows mild erythema, cobblestoning, but no tonsillar hypertrophy, peritonsillar abscess, asymmetry, or exudate. the uvula is midline. No trismus or drooling is noted. Moist mucous membranes. Neck: No anterior/posterior lymphadenopathy noted. no erythema, no masses, no fluctuance or induration noted. No meningeal signs. Cardio: Regular Rate and Rhythm Respiratory: No acute distress, diminished lung sounds, no rhonchi, wheezing or crackles noted. No stridor or retractions are noted. Abdomen: Normal bowel sounds, soft, nontender, no masses detected. No rebound, guarding, or rigidity noted. Musculoskeletal: The patient does have some edema to the lower extremities but no significant pitting edema. This seems to be more of a chronic finding. Neurological: Alert and Oriented x3, normal speech. Psychiatric: Cooperative Procedures ED Course: EKG Interpretation: NSR, rate of 94, left axis deviation, no ST segment elevation, no significant depression, baseline artifact Results for orders placed or performed during the hospital encounter of 06/07/17 CBC + DIFF Result Value Ref Range WBC 10.39 3.70 - 11.00 k/uL RBC 5.60 (H) 3.90 - 5.20 m/uL Hemoglobin 13.2 11.5 - 15.5 g/dL Hematocrit 42.6 36.0 - 46.0 % MCV 76.1 (L) 80.0 - 100.0 fL MCH 23.6 (L) 26.0 - 34.0 pG MCHC 31.0 30.5 - 36.0 g/dL RDW-CV 18.8 (H) 11.5 - 15.0 % Platelet Count 490 (H) 150 - 400 k/uL MPV 10.0 9.0 - 12.7 fL Neut% 73.6 % Abs Neut (ANC) 7.65 (H) 1.45 - 7.50 k/uL Lymph% 18.7 % Abs Lymph 1.94 1.00 - 4.00 k/uL [place]% 5.8 % Abs [place] 0.60 <0.87 k/uL Eosin% 1.5 % Abs Eosin 0.16 <0.46 k/uL Baso% 0.4 % Abs Baso 0.04 <0.11 k/uL COMP METABOLIC PANEL Result Value Ref Range Protein, Total 7.8 6.3 - 8.0 g/dL Albumin 3.5 (L) 3.9 - 4.9 g/dL Calcium 10.2 8.5 - 10.2 mg/dL Bilirubin, Total 0.3 0.2 - 1.3 mg/dL Alkaline Phosphatase 88 32 - 117 U/L AST 12 (L) 13 - 35 U/L Glucose 120 (H) 74 - 99 mg/dL BUN 20 7 - 21 mg/dL Creatinine 1.55 (H) 0.58 - 0.96 mg/dL Sodium 133 (L) 136 - 144 mmol/L Potassium 3.7 3.7 - 5.1 mmol/L Chloride 92 (L) 97 - 105 mmol/L CO2 29 22 - 30 mmol/L Anion Gap 12 9 - 18 mmol/L ALT 7 7 - 38 U/L eGFR- 43 eGFR-All Other Races 35 . MAGNESIUM BLD Result Value Ref Range Magnesium 1.9 1.7 - 2.3 mg/dL TROPONIN T Result Value Ref Range Troponin T <0.010 0.000 - 0.029 ng/mL NT PRO BNP Result Value Ref Range NT Pro BNP 73 <125 pg/mL CK TOTAL AND CK-MB Result Value Ref Range CK 42 42 - 196 U/L MB 1.2 <4.3 ng/mL CK MB % CK MB % not reported with CK <100 U/L. 0.0 - 4.0 % *Note: Due to a large number of results and/or encounters for the requested time period, some results have not been displayed. A complete set of results can be found in Results Review. CT BRAIN WO IVCON Final Result IMPRESSION: No acute intracranial process identified. Extensive sinus disease as described above. Paint Grinder: [facility] Transcribe Date/Time: Jun 07 2017 4:46P Dictated by : PINEDA MELARA MD This examination was interpreted and the report reviewed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 MENISCAL REPAIR SYS,CD,[id number] Right - PAST SURGICAL HISTORY OF Left foot fracture repair - REMOVAL GALLBLADDER Cholecystectomy - REPAIR OF NASAL SEPTUM Septoplasty - TOTAL ABDOM HYSTERECTOMY 01/16/09 [facility] 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 - Esophageal reflux 2005 - Fracture of right clavicle 11/15/2015 - Generalized anxiety disorder 2004 with panic attacks - Herpes genitalis - Hypoparathyroidism (HCC) parathyroid implant Left forearm - IFG (impaired fasting glucose) 05/08/2014 - Impaired fasting glucose - Insomnia 03/16/2013 - Iron deficiency anemia - Irritable bowel syndrome 1997 diarrhea prone, dairy exacerbates - MEN 1 (multiple endocrine neoplasia) (HCC) [facility] [place] - Morbid obesity (HCC) 2007 s/p sleeve Dr Dale - Obstructive sleep apnea fair complaince with CPAP - Primary hyperparathyroidism (HCC) 3 1/2 gland parathyroidectomy - Renal insufficiency - Sternoclavicular joint subluxation 07/16/2016 FAMILY HISTORY Problem Relation Age of Onset - Diabetes Mother due to surgery on pancreas - Genetic Mother MEN 1 - Cancer Mother liver - Emphysema Father bacterial pneumonia - Heart Maternal Grandmother - Cancer Paternal Grandmother uterine cancer - Heart Paternal Grandfather - Cervical Cancer Sister - Cancer Maternal Aunt lymphoma - Cancer Maternal Aunt lymphoma - Cancer Maternal Uncle brain - Hypertension Sister - Genetic Sister MEN 1 Social History Substance Use Topics - Smoking status: Never Smoker - Smokeless tobacco: Never Used - Alcohol use Yes Comment: occasionally - social ALLERGIES Allergen Reactions - Contrast Dye Rash - Ferrous Gluconate GI Upset Nausea - Morphine Rash - Oxycontin [Oxycodon* Rash, Swelling Rash, red and swollen eyes, facial swelling - Propranolol Itching REVIEW OF SYSTEMS General: NO fever, NO chills, NO night sweats Constitutional:NO recent unwanted weight loss, NO excessive weight Skin: NO rashes, NO chronic skin condition Head: NO seizures, NO headaches, NO dizziness Respiratory: NO cough Cardiovascular: NO chest pain Gastrointestinal: NO nausea, NO vomiting, NO abdominal painEndocrine: NO thyroid problems, NO heat intolerance Musculoskeletal: see HPI Neurologic: no numbness or tingling in extremities Examination: 52-year-old female no acute distress. Alert and oriented times 3. 5 foot 7 inches tall 296 pounds. BMI of 47. Examination of the left knee was challenging secondary to soft tissue envelope. There was no medial or lateral joint line tenderness however relative motion of the patellofemoral joint does cause discomfort. There is bilateral distal leg edema. Radiologic review: X-ray supply by the patient and copied into our system are nonweightbearing however they do reveal changes of the medial compartment consistent with primary osteoarthritis but more importantly severe primary osteoarthritis of the patellofemoral joint visualized on a sunrise view. Impression: Primary osteoarthritis left knee #2 morbid obesity. Reluctantly we did supply the patient with a small amount of tramadol with instructions of 1-2 every 6 hours. We explained to the patient we will not: Any more of this particular medication. I urged her to discuss with her primary care physician potential other medications that she may be able to take. Certainly other physicians may elect to allow the patient to have another prescription of tramadol. However given the patient's weight is not likely that the pain will improve significantly in the future, however we are going to refer her to physical therapy in addition to medical orthopedics for any further ultrasound guided injection therapy. Unfortunately no orthopedic surgical procedures indicated with the patient's present height to weight ratio. This note was partially generated using [employer] voice recognition system and as such may contain grammatical or word errors MIGUEL Observed: 04/27/2017 Status: COMPLETED Source: [place] 12:00 AM [facility] REPOSITORY [facility] Out[facility] THUY WHITE ([id number]) 1965 F [place] Date Time Provider Department 04/27/17 BRET JAY During your visit today, we recorded the following information about you: Allergies As of Date: 04/27/2017 Noted Allergy Reaction CONTRAST DYE 10/22/2007 2 - Rash FERROUS GLUCONATE 06/14/2012 8 - GI Upset Comments: Nausea MORPHINE 05/14/2005 2 - Rash OXYCONTIN (OXYCODONE HCL) 01/07/2007 2 - Rash 7 - Swelling Comments: Rash, red and swollen eyes, facial swelling PROPRANOLOL 04/02/2017 9 - Itching Date Reviewed: 04/21/2017 Reviewed by: Regi Villafuerte - Fully Assessed Visit Diagnosis:Medication management [Z79.899] Order(s):TSH BLD [SQTSH] Order #: [id number] FUTURE HGB A1C [[id number]] Order #: [id number] FUTURE Prescriptions as of 04/27/2017 Sig: TRAMADOL 50 MG TABLET Take 1 tablet by mouth every * X DEXTROAMPHETAMINE-AMPHETAMINE* Take 1 capsule by mouth twice* X TOPIRAMATE 25 MG TABLET Take 1 tablet by mouth daily * X SPIRONOLACTONE 100 MG TABLET take 1 tablet by mouth once d* X FLUTICASONE 50 MCG/ACTUATION * Use 1 [place] in each nostril d* CALCITRIOL 0.5 MCG CAPSULE take 3 capsules by mouth once* MECLIZINE 25 MG TABLET Take 1 tablet by mouth three * X OMEGA-3 + VITAMIN D3 ORAL Take 2,000 Units by mouth onc* X DOCUSATE SODIUM 100 MG CAPSULE Take 1 capsule by mouth twice* Patient not taking: Reported on 08/30/2017 BUPROPION XL 150 MG TAB Take 1 tablet by mouth once d* BUPROPION XL 300 MG 24 HR TAB Take 1 tablet by mouth once d* X CYANOCOBALAMIN (VIT B-12) 1,0* Take 1 tablet by mouth once d* ALPRAZOLAM 0.5 MG TABLET Take 1 tablet by mouth daily * COMPOUNDED PRESCRIPTION Tums chewable gummies (470 mg* X OMEPRAZOLE 20 MG CAPSULE,VANE* Take 20 mg by mouth once dayana* X VENLAFAXINE ER 150 MG CAPSULE* Take 1 capsule by mouth once * Problem List As Of Date 04/27/2017 Noted Resolved PRIMARY HYPERPARATHYROIDISM [E21.0] INVALID FOR*01/07/2007 Morbid obesity (HCC) [E66.01] Dysmenorrhea [N94.6] 02/25/2009 Irregular Menstrual Cycle [N92.6] 02/25/2009 More... Depression [F32.9] Priority: C More... HYPERPARATHYROIDISM NOS [E21.3] INVALID FOR*01/07/2007 ENDOMETRIAL HYPERPLASIA W ATYPIA [N85.02] INVALID FOR*05/09/2008 Postsurgical hypoparathyroidism (HCC) [E89.2] INVALID FOR* Priority: B Hypokalemia [E87.6] INVALID FOR*12/20/2014 MEN1 (multiple endocrine neoplasia) ([facility]) [E31.*INVALID FOR* Priority: A More... Complex Endometrial Hyperplasia without Atypia *INVALID FOR*02/25/2009 More... LENO (generalized anxiety disorder) [F41.1] INVALID FOR* Priority: D Eating disorder NEC INVALID FOR*04/11/2014 Hirsutism [L68.0] INVALID FOR*04/11/2014 Vitamin B12 deficiency [E53.8] INVALID FOR* Onychia and paronychia of toe [L03.039] INVALID FOR*01/31/2014 Nonunion of fracture [[id number]] INVALID FOR*01/31/2014 Other complications due to other internal ortho*INVALID FOR*01/31/2014 Gastric bypass status for obesity [Z98.84] CKD (chronic kidney disease) stage 3, GFR 30-59*INVALID FOR* Priority: F More... ADHD (attention deficit hyperactivity disorder)*INVALID FOR* IFG (impaired fasting glucose) [R73.01] INVALID FOR*10/03/2016 Sleep apnea [G47.30] INVALID FOR* More... Pancreatic mass [K86.9] INVALID FOR* More... Hyperlipidemia [E78.5] INVALID FOR* More... Hypocalcemia [E83.51] INVALID FOR*10/01/2016 Priority: Severe More... Hypokalemia [E87.6] INVALID FOR*10/01/2016 Fracture of right clavicle [S42.001A] INVALID FOR*10/01/2016 PTSD (post-traumatic stress disorder) [F43.10] INVALID FOR* Sternoclavicular joint subluxation [S43.203A] INVALID FOR*10/01/2016 Subluxation of right sternoclavicular joint [S4*INVALID FOR* Attention deficit hyperactivity disorder (ADHD)*INVALID FOR* BASIL (obstructive sleep apnea) [G47.33] INVALID FOR* Encounter Status:Closed by EPIC, PRODUSER on 12/17/17 PROGRESS Observed: 04/21/2017 Status: COMPLETED Source: [place] 6:[address] [facility] REPOSITORY HNO ID: [id number] Author: Filomena Jewell) [place] Service: (none) Author Type: Physician Preassembler And Inspector Type: Progress Notes Filed: 04/21/2017 6:31 PM Note Text: Thuy White is a 52 year old female with a complaint of left knee pain x two weeks. States was cleaning and stepped backwards and felt knee pop. Pain increased and could not walk on it the next day. Evaluated at outside ED the following day and had xrays which showed arthritis. Feels similar to meniscus tear that she had in the right knee in the past. She has been taking tylenol arthritis which is not helping. ED gave her 5 days of percocet. [facility] Could not schedule an appt because she owes them $40. Feels like her knee is sticking in the front. Knee feels like it's giving out first thing in the morning. Has been using crutches at home. Requesting something for pain. Denies swelling, redness or warmth. REVIEW OF SYSTEMS See HPI, otherwise unremarkable. 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 - Esophageal reflux 2005 - Fracture of right clavicle 11/15/2015 - Generalized anxiety disorder 2003 with panic attacks - Herpes genitalis - Hypoparathyroidism (HCC) parathyroid implant Left forearm - IFG (impaired fasting glucose) 05/08/2014 - Impaired fasting glucose - Insomnia 03/16/2013 - Iron deficiency anemia - Irritable bowel syndrome 1998 diarrhea prone, dairy exacerbates - MEN 1 (multiple endocrine neoplasia) (HCC) Dr Solorzano [facility] - Morbid obesity (HCC) 2006 s/p sleeve Dr Dale - Obstructive sleep apnea fair complaince with CPAP - Primary hyperparathyroidism (HCC) 3 1/2 gland parathyroidectomy - Renal insufficiency - Sternoclavicular joint subluxation 07/16/2016 PAST SURGICAL HISTORY Procedure Laterality Date - AUTOTRANSPLANT, PARATHYROID 07/27/06 left forearm - DANDC, DIAG AND/OR THERAPEUTIC 1992 For excessive menstruation - EGD W/O OR W/BRUSH/WASH 2005 - EXPLORE PARATHYROID GLANDS 12/08/2005 3 3 parathyroid glans removed - GASTRIC BYPASS HX 2006 gastric sleeve - INCISION EARDRUM,ASPIR,GEN ANESTH Myringotomy/tubes - MENISCAL REPAIR SYS,CD,[id number] Right - PAST SURGICAL HISTORY OF Left foot fracture repair - REMOVAL GALLBLADDER Cholecystectomy - REPAIR OF NASAL SEPTUM Septoplasty - TOTAL ABDOM HYSTERECTOMY 01/16/09 [facility] FAMILY HISTORY Problem Relation Age of Onset - Diabetes Mother due to surgery on pancreas - Genetic Mother MEN 1 - Cancer Mother liver - Emphysema Father bacterial pneumonia - Heart Maternal Grandmother - Cancer Paternal Grandmother uterine cancer - Heart Paternal Grandfather - Cervical Cancer Sister - Cancer Maternal Aunt lymphoma - Cancer Maternal Aunt lymphoma - Cancer Maternal Uncle brain - Hypertension Sister - Genetic Sister MEN 1 Social History Marital status: Spouse name: Kade Years of education: 14 Number of children: 0 Occupational History 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 Social History Main Topics Smoking status: Never Smoker Smokeless status: Never Used Alcohol use: Yes Comment: occasionally - social Drug use: No Comment: marijuana use yest- almost every day since feb 17.at bedtime to help sleep Sexual activity: Yes Partners with: Male control/protection: Surgical Comment: [facility] PHYSICAL EXAMINATION: Vitals: BP 128/83 Pulse 89 Temp 36.7 ?C (98 ?F) (Oral) Resp 16 Ht 170.2 cm (5' 7) Wt (!) 136.2 kg (300 lb 3.2 oz) LMP 02/01/2007 SpO2 100% BMI 47.02 kg/m2 General Appearance: Well appearing, alert, in no acute distress, well-hydrated, morbidly obese. Extremities: medial and lateral joint line ttp, no pain or laxity with varus/valgus stress, negative anterior/posterior drawer, nv intact. Exam somewhat difficult due to body habitus. ASSESSMENT: DIAGNOSIS: (M25.562) Acute pain of left knee (primary encounter diagnosis) (E66.01) Morbid obesity (HCC) PLAN: ASSESSMENT/PLAN: 1. Acute pain of left knee - ICD9: 719.46, ICD10: M25.562 (primary diagnosis) - CONSULT TO ORTHOPAEDICS - TRAMADOL 50 MG TABLET-to use sparingly for severe pain. 2. Morbid obesity (HCC) - ICD9: 278.01, ICD10: E66.01 Follow-up in the interim for new or worsening sx. Pt in agreement with the plan and verbalized understanding. Filomena Lewis PA-C PROGRESS Observed: 04/21/2017 Status: COMPLETED Source: [place] 6:09 PM [facility] REPOSITORY HNO ID: [id number] Author: Regi William)(Hist) Christo Service: (none) Author Type: Machine Sander Type: Progress Notes Filed: 04/21/2017 6:31 PM Note Text: ADULT PREVNAR-13 due on 1985 COLORECTAL CANCER SCREENING,SEE MODIFIER due on 2016 MAMMOGRAM due on 09/25/2016 CNPN Observed: 04/21/2017 Status: COMPLETED Source: [place] 12:00 AM [facility] REPOSITORY [facility] THUY WHITE ([id number]) 1965 F [place] Date Time Provider Department 04/21/17 FILOMENA LEWIS) [facility] During your visit today, we recorded the following information about you: Filomena Lewis PA-C 04/21/2017 4:28 PM Signed Received email from certification dept stating insurance denied her CT brain because she didn't have a face to face encounter within 60 days with her physician. Letter of appeal printed, please fax to: fax: , or by mail: [address] [place], [place] [address], Attn: Appeals and grievance Dept, with 180 days timeframe since 04/07/2017. Thanks, SHAUNA Wright MA 04/22/2017 10:04 AM Signed Letter faxed to [phone], transmission ok. Sri Estrella Ma 04/22/2017 10:21 AM Signed Renae from Appeals Dept calling. States that the letter received does not have enough information for appeal. Needs to state that it is an appeal request, what it being appealed and claim number. Then fax to [phone]. Please review and advise. Filomena Lewis PA-C 04/22/2017 11:04 AM Signed Printed please process. SHAUNA Wright 04/23/2017 10:54 AM Signed New letter faxed #[phone] Confirmation fax received. Transmission successful. Allergies As of Date: 04/21/2017 Noted Allergy Reaction CONTRAST DYE 10/22/2007 2 - Rash FERROUS GLUCONATE 06/14/2012 8 - GI Upset Comments: Nausea MORPHINE 05/14/2005 2 - Rash OXYCONTIN (OXYCODONE HCL) 01/07/2007 2 - Rash 7 - Swelling Comments: Rash, red and swollen eyes, facial swelling PROPRANOLOL 04/02/2017 9 - Itching Date Reviewed: 04/21/2017 Reviewed by: Regi William)(Hist) Christo - Fully Assessed Reason for Visit: appeal [Other] Prescriptions as of 04/21/2017 Sig: TRAMADOL 50 MG TABLET Take 1 tablet by mouth every * DEXTROAMPHETAMINE-AMPHETAMINE* Take 1 capsule by mouth twice* TOPIRAMATE 25 MG TABLET Take 1 tablet by mouth daily * SPIRONOLACTONE 100 MG TABLET take 1 tablet by mouth once d* FLUTICASONE 50 MCG/ACTUATION * Use 1 [place] in each nostril d* CALCITRIOL 0.5 MCG CAPSULE take 3 capsules by mouth once* MECLIZINE 25 MG TABLET Take 1 tablet by mouth three * OMEGA-3 + VITAMIN D3 ORAL Take 2,000 Units by mouth onc* DOCUSATE SODIUM 100 MG CAPSULE Take 1 capsule by mouth twice* BUPROPION XL 150 MG TAB Take 1 tablet by mouth once d* BUPROPION XL 300 MG 24 HR TAB Take 1 tablet by mouth once d* CYANOCOBALAMIN (VIT B-12) 1,0* Take 1 tablet by mouth once d* ALPRAZOLAM 0.5 MG TABLET Take 1 tablet by mouth daily * COMPOUNDED PRESCRIPTION Tums chewable gummies (470 mg* OMEPRAZOLE 20 MG CAPSULE,VANE* Take 20 mg by mouth once dayana* VENLAFAXINE ER 150 MG CAPSULE* Take 1 capsule by mouth once * Problem List As Of Date 04/21/2017 Noted Resolved PRIMARY HYPERPARATHYROIDISM [E21.0] INVALID FOR*01/07/2007 Morbid obesity (HCC) [E66.01] More... Dysmenorrhea [N94.6] 02/25/2009 Irregular Menstrual Cycle [N92.6] 02/25/2009 More... Depression [F32.9] Priority: C More... HYPERPARATHYROIDISM NOS [E21.3] INVALID FOR*01/07/2007 ENDOMETRIAL HYPERPLASIA W ATYPIA [N85.02] INVALID FOR*05/09/2008 Postsurgical hypoparathyroidism ([facility]) [E89.2] INVALID FOR* Priority: B Hypokalemia [E87.6] INVALID FOR*12/20/2014 MEN1 (multiple endocrine neoplasia) ([facility]) [E31.*INVALID FOR* Priority: A More... Complex Endometrial Hyperplasia without Atypia *INVALID FOR*02/25/2009 More... LENO (generalized anxiety disorder) [F41.1] INVALID FOR* Priority: D Eating disorder NEC INVALID FOR*04/11/2014 Hirsutism [L68.0] INVALID FOR*04/11/2014 Vitamin B12 deficiency [E53.8] INVALID FOR* Onychia and paronychia of toe [L03.039] INVALID FOR*01/31/2014 Nonunion of fracture [[id number]] INVALID FOR*01/31/2014 Other complications due to other internal ortho*INVALID FOR*01/31/2014 Gastric bypass status for obesity [Z98.84] CKD (chronic kidney disease) stage 3, GFR 30-59*INVALID FOR* Priority: F More... ADHD (attention deficit hyperactivity disorder)*INVALID FOR* IFG (impaired fasting glucose) [R73.01] INVALID FOR*10/03/2016 Sleep apnea [G47.30] INVALID FOR* More... Pancreatic mass [K86.9] INVALID FOR* More... Hyperlipidemia [E78.5] INVALID FOR* More... Hypocalcemia [E83.51] INVALID FOR*10/01/2016 Priority: Severe More... Hypokalemia [E87.6] INVALID FOR*10/01/2016 Fracture of right clavicle [S42.001A] INVALID FOR*10/01/2016 PTSD (post-traumatic stress disorder) [F43.10] INVALID FOR* Sternoclavicular joint subluxation [S43.203A] INVALID FOR*10/01/2016 Subluxation of right sternoclavicular joint [S4*INVALID FOR* Attention deficit hyperactivity disorder (ADHD)*INVALID FOR* BASIL (obstructive sleep apnea) [G47.33] INVALID FOR* Letter Text Filomena Lewis PA-C [facility] [address] [place] [address] Thuy White April 21, 2017 Thuy White [address] [facility] [address] TO WHOM IT MAY CONCERN: This is to confirm that Thuy White had an appointment and was seen at the [facility] in the Department of Community Internal Medicine by Filomena Lewis PA-C on 03/25/17 for frequent headaches. Her CT brain was performed on 03/30/17 which was denied stating pt wasn't seen for face to face encounter within 60 days of the test. She was seen face to face in the office on 03/25/17 and 04/07/17 for this complaint. Sincerely yours, Filomena Lewis PA-C (Electronically signed to expedite processing) Letter Text Filomena Lewis PA-C [facility] [address] [place] [address], [place] [address] Thuy White April 22, 2017 Thuy White [address] [place] [address] TO WHOM IT MAY CONCERN: This is an appeal letter. This is to confirm that Thuy White had an appointment and was seen at the [facility] in the Department of Community Internal Medicine by Filomena Lewis PA-C on 03/25/17 for frequent headaches. Her CT brain was performed on 03/30/17 which was denied stating pt wasn't seen for face to face encounter within 60 days of the test. She was seen face to face in the office on 03/25/17 and 04/07/17 for this complaint. Sincerely yours, Filomena Lewis PA-C (Electronically signed to expedite processing) Encounter Status:Closed by BORIS SKELTON MA on 04/22/17 PROGRESS Observed: 04/12/2017 Status: COMPLETED Source: [place] 3:[address] [facility] REPOSITORY HNO ID: [id number] Author: Zulma Haywood Service: (none) Author Type: Physician Type: Progress Notes Filed: 04/12/2017 3:29 PM Note Text: HPI Thuy White is a 51 year old female who presents with headaches. Patient is seen in consultation for Dr. Jay. Patient states for some time she has had headaches. Patient does suffer from migraines. Patient also is concerned that she has sinus issues as well. Patient did have some type of surgery years ago. Patient does get crusting and bleeding from the nose chronically. Patient also suffers her migraines patient is going emergency room at times due to the severity of her headaches ROS General Weight loss: No Fatigue: No Night sweats:No Cardiac Chest pain:No Fast heart rate:No Swelling in the feet:No Respiratory Short of breath:No Cough:No Wheezing:No Gastrointestinal Nausea:No Vomiting:No Indigestion:No Past no history family history social history reviewed Physical Exam PHYSICAL EXAM: [facility] 02/01/2007 General: Patient is awake, alert, NAD. Voice is normal. Skin: normal Eyes: Extraocular motion and Gaze is normal. Ears: Right external auditory canal is normal. TMJ: normal. Right tympanic membranes normal. Left external auditory canal is normal. Left tympanic membrane normal. Nose: Septum is large perforation with crusting Turbinates are normal. Nasopharynx:normal Oral Cavity/Oropharynx: Lips normal Dentition normal Tongue normal. Tonsils normal. Palate and uvula normal. Pharynx posterior normal Hypopharynx: Base of tongue normal Pyriform sinus normal. Larynx: Vocal cords normal. Epiglottis normal. Post cricoid normal. Salivary glands: Parotid normal. Submandibular and sublingual normal. Thyroid: normal. Lymphatic/Neck: Lymph nodes normal. Neurologic: Facial nerve normal. CT reviewed ASSESSMENT/PLAN: 1. Frequent headaches - ICD9: 784.0, ICD10: R51 (primary diagnosis) - CONSULT TO NEUROLOGY 2. Nasal septal perforation - ICD9: 478.19, ICD10: J34.89 3. Chronic rhinitis - ICD9: 472.0, ICD10: J31.0 I've explained the patient at this point I would do sinus irrigations to the chronic nasal issues but her headaches are most likely a variant of migraine and that she should see neurology. I put the consult and for neurology Zulma Haywood MD Findings will be communicated to the referring physician via mail or electronic medical record. XR KNEE THREE VIEWS Observed: 04/10/2017 Status: F Source: [employer] [facility] 10:06 AM FOUNDATION REPOSITORY ORIGINAL XR KNEE THREE VIEWS LEFT CLINICAL STATEMENT: Pain COMPARISON: None FINDINGS: No acute fracture or dislocation is identified. No joint effusion is seen. There is periarticular spurring diffusely. Joint height loss is most prominent at the patellofemoral joint. No chondr ocalcinosis is visible. There is no radiopaque foreign body. IMPRESSION: No fracture. Moderate to severe arthropathy. Interpreted By: José Miguel Dewey MD Preliminary Report By: José Miguel Dewey MD Electronically Signed By: José Miguel Dewey MD Dictated Date: 04/10/2017 10:09:31 AM Prelim Date: 04/10/2017 10:09:31 AM Sign Date: 04/10/2017 10:10:37 AM PROGRESS Observed: 04/07/2017 Status: COMPLETED Source: [place] 9:23 AM [facility] REPOSITORY HNO ID: [id number] Author: Filomena Jewell) Clive Service: (none) Author Type: Physician Preassembler And Inspector Type: Progress Notes Filed: 04/07/2017 9:46 AM Note Text: Thuy White is a 51 year old female here today for follow- up headaches. Experienced itching all over her body after taking propranolol for one week. States headaches were responding to the medication. Would like to try something else. Denies any new or worsening sx. She has chronic ear pain which is unchanged. Has upcoming appt with ENT. REVIEW OF SYSTEMS See HPI, otherwise unremarkable. 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 - Esophageal reflux 2005 - Fracture of right clavicle 11/15/2015 - Generalized anxiety disorder 2004 with panic attacks - Herpes genitalis - Hypoparathyroidism ([facility]) parathyroid implant Left forearm - IFG (impaired fasting glucose) 05/08/2014 - Impaired fasting glucose - Insomnia 03/16/2013 - Iron deficiency anemia - Irritable bowel syndrome 1997 diarrhea prone, dairy exacerbates - MEN 1 (multiple endocrine neoplasia) ([facility]) Dr Solorzano, [place] - Morbid obesity ([facility]) 2006 s/p sleeve Dr Dale - Obstructive sleep apnea fair complaince with CPAP - Primary hyperparathyroidism ([facility]) 3 03/09 gland parathyroidectomy - Renal insufficiency - Sternoclavicular joint subluxation 07/16/2016 PAST SURGICAL HISTORY Procedure Laterality Date - AUTOTRANSPLANT, PARATHYROID 07/27/06 left forearm - DANDC, DIAG AND/OR THERAPEUTIC 1992 For excessive menstruation - EGD W/O OR W/BRUSH/WASH 2005 - EXPLORE PARATHYROID GLANDS 12/08/2005 3 3/4 parathyroid glans removed - GASTRIC BYPASS HX 2006 gastric sleeve - INCISION EARDRUM,ASPIR,GEN ANESTH Myringotomy/tubes - MENISCAL REPAIR SYS,CD,[id number] Right - PAST SURGICAL HISTORY OF Left foot fracture repair - REMOVAL GALLBLADDER Cholecystectomy - REPAIR OF NASAL SEPTUM Septoplasty - TOTAL ABDOM HYSTERECTOMY 01/16/09 [facility] FAMILY HISTORY Problem Relation Age of Onset - Diabetes Mother due to surgery on pancreas - Genetic Mother MEN 1 - Cancer Mother liver - Emphysema Father bacterial pneumonia - Heart Maternal Grandmother - Cancer Paternal Grandmother uterine cancer - Heart Paternal Grandfather - Cervical Cancer Sister - Cancer Maternal Aunt lymphoma - Cancer Maternal Aunt lymphoma - Cancer Maternal Uncle brain - Hypertension Sister - Genetic Sister MEN 1 Social History Marital status: Spouse name: Kade Years of education: 14 Number of children: 0 Occupational History 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 Social History Main Topics Smoking status: Never Smoker Smokeless status: Never Used Alcohol use: Yes Comment: occasionally - social Drug use: No Comment: marijuana use yest- almost every day since feb 17.at bedtime to help sleep Sexual activity: Yes Partners with: Male control/protection: Surgical Comment: [facility] PHYSICAL EXAMINATION: Vitals: BP 125/75 (BP Site: Left Arm, BP Position: Sitting, BP Cuff Size: Large Adult) Pulse 95 Temp 36.9 ?C (98.4 ?F) (Oral) Resp 18 Ht 170.2 cm (5' 7) Wt 133.4 kg (294 lb 1.6 oz) LMP 02/01/2007 SpO2 99% BMI 46.06 kg/m2 General Appearance: Well appearing, alert, in no acute distress, morbidly obese. Ears: External ears normal, canals clear. Neurologic: Gait normal. Reflexes normal and symmetric. Sensation grossly intact.. ASSESSMENT: DIAGNOSIS: (R51) Frequent headaches (primary encounter diagnosis) PLAN: Start topamax, discussed risks vs benefits and potential side effects. Follow-up one month or sooner prn. Pt in agreement with the plan and verbalized understanding. Filomena Lewis PA-C CNOV Observed: 04/07/2017 Status: COMPLETED Source: [place] 9:20 AM [facility] REPOSITORY Office Visit (IMMDNA) THUY WHITE ([id number]) 1965 F UPA Date Time Provider Department 04/07/17 9:20 AM FILOMENA LEWIS) IMMISABELL During your visit today, we recorded the following information about you: Temperature Pulse Respiration Blood pressure 98.4 degrees 95/minute 18/minute 125/75 Weight Height 133.4 kg 1.702 m Elliotjodysteph Ortiz 04/07/2017 9:13 AM Signed Patient presents with: Establish Care: medication reaction Filomena Lewis PA-C 04/07/2017 9:46 AM Signed Thuy White is a 51 year old female here today for follow- up headaches. Experienced itching all over her body after taking propranolol for one week. States headaches were responding to the medication. Would like to try something else. Denies any new or worsening sx. She has chronic ear pain which is unchanged. Has upcoming appt with ENT. REVIEW OF SYSTEMS See HPI, otherwise unremarkable. 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 - Esophageal reflux 2005 - Fracture of right clavicle 11/15/2015 - Generalized anxiety disorder 2003 with panic attacks - Herpes genitalis - Hypoparathyroidism (HCC) parathyroid implant Left forearm - IFG (impaired fasting glucose) 05/08/2014 - Impaired fasting glucose - Insomnia 03/16/2013 - Iron deficiency anemia - Irritable bowel syndrome 1997 diarrhea prone, dairy exacerbates - MEN 1 (multiple endocrine neoplasia) ([facility]) Dr Solorzano, [facility] [place] - Morbid obesity ([facility]) 2006 s/p sleeve Dr Dale - Obstructive sleep apnea fair complaince with CPAP - Primary hyperparathyroidism ([facility]) 3 03/09 gland parathyroidectomy - Renal insufficiency - Sternoclavicular joint subluxation 07/16/2016 PAST SURGICAL HISTORY Procedure Laterality Date - AUTOTRANSPLANT, PARATHYROID 07/27/06 left forearm - DANDamp;C, DIAG AND/OR THERAPEUTIC 1991 For excessive menstruation - EGD W/O OR W/BRUSH/WASH 2005 - EXPLORE PARATHYROID GLANDS 12/08/2005 3 3/ parathyroid glans removed - GASTRIC BYPASS HX 2006 gastric sleeve - INCISION EARDRUM,ASPIR,GEN ANESTH Myringotomy/tubes - MENISCAL REPAIR SYS,CD,[id number] Right - PAST SURGICAL HISTORY OF Left foot fracture repair - REMOVAL GALLBLADDER Cholecystectomy - REPAIR OF NASAL SEPTUM Septoplasty - TOTAL ABDOM HYSTERECTOMY 01/16/09 [facility] FAMILY HISTORY Problem Relation Age of Onset - Diabetes Mother due to surgery on pancreas - Genetic Mother MEN 1 - Cancer Mother liver - Emphysema Father bacterial pneumonia - Heart Maternal Grandmother - Cancer Paternal Grandmother uterine cancer - Heart Paternal Grandfather - Cervical Cancer Sister - Cancer Maternal Aunt lymphoma - Cancer Maternal Aunt lymphoma - Cancer Maternal Uncle brain - Hypertension Sister - Genetic Sister MEN 1 Social History Marital status: Spouse name: Kade Years of education: 14 Number of children: 0 Occupational History 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 Social History Main Topics Smoking status: Never Smoker Smokeless status: Never Used Alcohol use: Yes Comment: occasionally - social Drug use: No Comment: marijuana use yest- almost every day since feb 17.at bedtime to help sleep Sexual activity: Yes Partners with: Male control/protection: Surgical Comment: [facility] PHYSICAL EXAMINATION: Vitals: BP 125/75 (BP Site: Left Arm, BP Position: Sitting, BP Cuff Size: Large Adult) Pulse 95 Temp 36.9 ?C (98.4 ?F) (Oral) Resp 18 Ht 170.2 cm (5' 7ANDquot;) Wt 133.4 kg (294 lb 1.6 oz) LMP 02/01/2007 SpO2 99% BMI 46.06 kg/m2 General Appearance: Well appearing, alert, in no acute distress, morbidly obese. Ears: External ears normal, canals clear. Neurologic: Gait normal. Reflexes normal and symmetric. Sensation grossly intact.. ASSESSMENT: DIAGNOSIS: (R51) Frequent headaches (primary encounter diagnosis) PLAN: Start topamax, discussed risks vs benefits and potential side effects. Follow-up one month or sooner prn. Pt in agreement with the plan and verbalized understanding. Filomena Lewis PA-C Referring Provider: SELF [200] Allergies As of Date: 04/07/2017 Noted Allergy Reaction CONTRAST DYE 10/22/2007 2 - Rash FERROUS GLUCONATE 06/14/2012 8 - GI Upset Comments: Nausea MORPHINE 05/14/2005 2 - Rash OXYCONTIN (OXYCODONE HCL) 01/07/2007 2 - Rash 7 - Swelling Comments: Rash, red and swollen eyes, facial swelling PROPRANOLOL 04/02/2017 9 - Itching Date Reviewed: 03/25/2017 Reviewed by: Boris Skelton - Fully Assessed Reason for Visit: Establish Care [42] Cmt: medication reaction Primary Visit Diagnosis:Frequent headaches [R51] Order(s):topiramate (TOPAMAX) 25 mg tabletTake 1 tablet by mouth daily at bedtime. Increase to twice daily after one week.Disp: 60 tabletRfl: 1 Prescriptions as of 04/07/2017 Sig: DEXTROAMPHETAMINE-AMPHETAMINE* Take 1 capsule by mouth twice* SPIRONOLACTONE 100 MG TABLET take 1 tablet by mouth once d* FLUTICASONE 50 MCG/ACTUATION * Use 1 [place] in each nostril d* CALCITRIOL 0.5 MCG CAPSULE take 3 capsules by mouth once* MECLIZINE 25 MG TABLET Take 1 tablet by mouth three * OMEGA-3 + VITAMIN D3 ORAL Take 2,000 Units by mouth onc* DOCUSATE SODIUM 100 MG CAPSULE Take 1 capsule by mouth twice* BUPROPION XL 150 MG TAB Take 1 tablet by mouth once d* BUPROPION XL 300 MG 24 HR TAB Take 1 tablet by mouth once d* CYANOCOBALAMIN (VIT B-12) 1,0* Take 1 tablet by mouth once d* ALPRAZOLAM 0.5 MG TABLET Take 1 tablet by mouth daily * COMPOUNDED PRESCRIPTION Tums chewable gummies (470 mg* OMEPRAZOLE 20 MG CAPSULE,VANE* Take 20 mg by mouth once dayana* VENLAFAXINE ER 150 MG CAPSULE* Take 1 capsule by mouth once * TOPIRAMATE 25 MG TABLET Take 1 tablet by mouth daily * Problem List As Of Date 04/07/2017 Noted Resolved PRIMARY HYPERPARATHYROIDISM [E21.0] INVALID FOR*01/07/2007 Morbid obesity (HCC) [E66.01] More... Dysmenorrhea [N94.6] 02/25/2009 Irregular Menstrual Cycle [N92.6] 02/25/2009 More... Depression [F32.9] Priority: C More... 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 Complex Endometrial Hyperplasia without Atypia *INVALID FOR*02/25/2009 More... LENO (generalized anxiety disorder) [F41.1] INVALID FOR* Priority: D Eating disorder NEC INVALID FOR*04/11/2014 Hirsutism [L68.0] INVALID FOR*04/11/2014 Vitamin B12 deficiency [E53.8] INVALID FOR* Onychia and paronychia of toe [L03.039] INVALID FOR*01/31/2014 Nonunion of fracture [TME8859] INVALID FOR*01/31/2014 Other complications due to other internal ortho*INVALID FOR*01/31/2014 Gastric bypass status for obesity [Z98.84] CKD (chronic kidney disease) stage 3, GFR 30-59*INVALID FOR* Priority: F More... ADHD (attention deficit hyperactivity disorder)*INVALID FOR* IFG (impaired fasting glucose) [R73.01] INVALID FOR*10/03/2016 Sleep apnea [G47.30] INVALID FOR* More... Pancreatic mass [K86.9] INVALID FOR* More... Hyperlipidemia [E78.5] INVALID FOR* More... Hypocalcemia [E83.51] INVALID FOR*10/01/2016 Priority: Severe More... Hypokalemia [E87.6] INVALID FOR*10/01/2016 Fracture of right clavicle [S42.001A] INVALID FOR*10/01/2016 PTSD (post-traumatic stress disorder) [F43.10] INVALID FOR* Sternoclavicular joint subluxation [S43.203A] INVALID FOR*10/01/2016 Subluxation of right sternoclavicular joint [S4*INVALID FOR* Attention deficit hyperactivity disorder (ADHD)*INVALID FOR* BASIL (obstructive sleep apnea) [G47.33] INVALID FOR* Visit Notes: >> Kelly Ortiz Wed Apr 07, 2017 9:13 AM Status: Signed Patient presents with: Establish Care: medication reaction Prescriptions ordered this encounter Disp Refills Start End TOPIRAMATE 25 MG TABLET 60 t* 1 04/07/2017 Route: ORAL Sig: Take 1 tablet by mouth daily at bedtime. Increase to twice daily after one week. Encounter Status:Closed by FILOMENA LEWIS PA-C on 04/07/17 ALLERGIES ALLERGIES DATE TYPE / CODE NAME / CODE REACTION SEVERITY SOURCE 02/22/2018 Drug Iodinated Rash Unknown [place] Allergy/416 Contrast- Oral and Community 380051([facility] ED CT) Dye/[id number](RXN Repository ORM) 02/22/2018 Drug iron/[id number](RX Other Unknown [place] Allergy/416 NORM) Community 215251([facility] ED CT) Repository 02/22/2018 Drug morphine/[id number] Rash Unknown [place] Allergy/416 5(RXNORM) Community 984891([facility] ED CT) Repository 02/22/2018 Drug ondansetron/V34167 Other Unknown [place] Allergy/416 4807(RXNORM) Community 895843([facility] ED CT) Repository 04/02/2017 DRUG PROPRANOLOL ITCHING [facility] INGREDI/[address] [place] 495193(SNOM Repository ED CT) 06/14/2012 [facility] [address] [place] 195086(SNOM Repository ED CT) 10/22/2007 DRUG CONTRAST DYE RASH [place] [address] [address] [place] 602044(SNOM Repository ED CT) 01/07/2007 DRUG OXYCODONE HCL RASH [place] [address] [address] [place] 489701(SNOM Repository ED CT) 05/14/2005 DRUG MORPHINE RASH [place] [address] [address] [place] 314255(SNOM Repository ED CT) ENCOUNTERS ENCOUNTERS ADMIT/DISCHARGE ACCOUNT NUMBER ADMITTING ENCOUNTER LOCATION SOURCE CLASS 03/28/2018/03/28/19 [id number] Ambulatory [address] [place] Repository 03/02/2018/03/02/20 [id number] Ambulatory [address] [place] Repository 03/02/2018/03/03/20 [id number] Ambulatory [address] [place] Repository 02/22/2018/02/23/20 [id number] Emergency [address] ding:ED Repository 02/18/2018/02/19/20 [id number] Ambulatory [address] [place] Repository 02/18/2018/02/23/20 [id number] Ambulatory [address] [place] Repository 02/13/2018/02/16/20 [id number] Ambulatory [address] [place] Repository 11/26/2017/11/30/19 [id number] Ambulatory [address] [place] Repository 11/24/2017/11/25/19 [id number] Ambulatory [address] [place] Repository 11/24/2017/11/25/19 [id number] Ambulatory [address] [place] Repository 10/19/2017/10/20/19 [id number] Ambulatory Alyssa[address] ding:SDC Repository 10/03/2017/10/04/19 [id number] Emergency Alyssa [place] [facility] ding:ED Repository 09/16/2017/09/17/19 [id number] Emergency Alyssa [place] ding:ED Repository 08/30/2017/09/03/19 [id number] Ambulatory [address] [place] Repository 08/23/2017/08/24/19 [id number] Ambulatory [address] [place] Repository 07/27/2017/07/28/[id number] [facility] [address] [place] [address] ding:[facility] Repository 07/14/2017/07/19/19 [id number] Ambulatory [address] ding:[facility] Repository 06/22/2017/06/24/19 [id number] Ambulatory [address] [place] Repository 06/07/2017/06/08/19 [id number] Emergency [address] Other [place] Repository 06/04/2017/06/05/19 [id number] Ambulatory [address] [place] Repository 05/12/2017/05/19/19 [id number] Ambulatory [address] [place] Repository 04/30/2017/05/03/19 [id number] Ambulatory [address] [place] Repository 04/21/2017/04/21/19 [id number] Ambulatory [address] [place] Repository 04/12/2017/04/12/19 [id number] Ambulatory [address] [place] Repository 04/10/2017/04/10/19 [id number] Emergency BBuilding:ER [address] Repository 04/07/2017/04/07/19 [id number] Ambulatory [address] [place] Repository PAYERS PAYERS ENCOUNTER GUARANTOR PAYER SUBSCRIBER SOURCE 02/22/2018 THUY Y Primary THUY Y [place] [id number] Insurance:[facility] LALIDOB: [facility] [address] MEDICAREPolicy [id number] Number: Repository [address]Nbg: (204) [id number] [phone] () Date:[id number] [address] [place] [address] 47[address]PQ: 02/22/2018 Secondary THUY Y [place] Insurance:MEDICAIDPol MELSONDOB: Community icy Number: [id number] [facility] [id number] Repository Date:2018-02-22 02/22/2018 Tertiary NOT GIVENUNK [place] Insurance:SELF PAY [facility]: Effective Repository Date:2018-02-22 10/19/2017 THUY Y Primary THUY Y [place] [id number] Insurance:[employer] MELSONDOB: Community [address] [facility] [id number] Number: Repository [address]Bqf: 330 [id number] [phone] () Date:[id number] [address]FS: 10/19/2017 Secondary THUY Y [place] Insurance:MEDICAIDPol MELSONDOB: Community icy Number: [id number] Hospital [id number] Repository Date:2017-10-05 10/19/2017 Tertiary NOT GIVENUNK [place] Insurance:SELF PAY [facility] Number: Effective Repository Date:2017-10-05 10/03/2017 THUY Y Primary THUY Y [place] [id number] Insurance:[employer] C[employer] MELSONDOB: Community [address] [facility] [id number] Number: Repository [address]Zja: 330 [id number] [phone] (HP) Date:9213-21-47SI [address] [place] [address] 29187UM: 10/03/2017 Secondary THUY Y [place] Insurance:MEDICAIDPol MELSONDOB: Community icy Number: [id number] Hospital [id number] Repository Date:2017-10-03 10/03/2017 Tertiary NOT GIVENUNK [place] Insurance:SELF PAY [facility] Number: Effective Repository Date:2017-10-03 09/16/2017 THUY Y Primary THUY Y [place] [id number] Insurance:[employer] MELSONDOB: Community [address] MEDICAREPolicy [id number] Number: Repository [address]Voi: 330 [id number] [phone] () Date:9192-27-96LV [address], [place] [address]UQ: 09/16/2017 Secondary THUY Y [place] Insurance:MEDICAIDPol MELSONDOB: [facility] icy Number: [id number] Hospital [id number] Repository Date:2017-09-16 09/16/2017 Tertiary NOT GIVENUNK [place] Insurance:SELF PAY [facility] Number: Effective Repository Date:2017-09-16 07/27/2017 THUY Y Primary [facility] MELSONDOB: Insurance:SUMMACARE [facility]: [facility] MEDICARE HMOPolicy [id number] Number: [address] [place] [address] [id number] 231[place], [place] [id number] Date:2017-07-14 [id number]: [phone]) MAIL.COMTel: [phone] [phone] Name:Jimio ()Tel: 000) (HP) [id number], [place] [phone] (GD) [id number]: 07/27/[address] [facility] Insurance:MEDICAID OF MELSONDOB: [facility] Number: [id number] Repository [id number] [address] Date:2017-07-14[place], [place] [id number] [id number]: ([phone]) Name:[id number] [place], [place] ()Tel: [phone]: [phone] ([phone] 07/14/2017 THUY Y Primary [facility] Y [facility] MELSONDOB: Insurance:SUM[employer]ARE MELSONDOB: [facility] MEDICARE HMOPolicy [id number] Number: [address], [place] [id number] [address], [place] [email or web address] Date:2017-07-14Tel: [phone]) MAIL.[facility]: [phone] [phone] Name:Npo (HP)Tel: (000) (HP) [id number], [place] 000[address] (WP) [phone]: 07/14/[address] [facility] Health Insurance:MEDICAID OF [facility]: [facility] Number: [id number] Repository [id number] Date:2017-07-14 [address], [place] [id number] [id number]: [phone]) Name:[address] [place] [address] [place], [place] ()Tel: [phone]: [phone] 04/10/2017 [facility] Y [facility] MELSONDOB: Insurance[facility]: [facility] MEDICARE HMOPolicy [id number] [address] Number: [address], [place] [id number] [address] [address]~~[email or web address] Date:2017-04-10Tel: [phone]) MAIL.[facility]: [phone] Name:[address] (HP)Tel: [phone]) (HP) [address], [place] 000[address] (WP) [phone]: 04/10/[address] [facility] Health Insurance:MEDICAID OF MELSONDOB: [facility] Number: [id number] Repository [id number] Date:2017-04-10[place], [place] [id number] [id number]: ([phone]) Name:[address] [phone] [place] ()Tel: [phone]: [phone]
== END 2018-02-22 23:14 | disposition home or self-care (01) ==
PROVIDERS: Emergency Provider Emergency Medicine; Family Provider Internal Medicine; PCP Internal Medicine
DX: M54.16 Radiculopathy, lumbar region (principal); I10 Essential (primary) hypertension; E66.9 Obesity, unspecified; Z68.42 Body mass index [BMI] 45.0-49.9, adult; Z79.899 Other long term (current) drug therapy
CPT/HCPCS: 99283

== ENCOUNTER → 2018-05-16 10:48 | Outpatient (CLI) | payer MEDICARE, MEDICAID, SELFPAY ==
[2018-05-16 12:46] LABS: Amphetamine Urine VISTA POSITIVE (<1000 ng/mL); Barbiturate Urine VISTA NEGATIVE (< 200 ng/mL); Benzodiazepine Urine VISTA POSITIVE (< 200 ng/mL); Cocaine Urine VISTA NEGATIVE (< 300 ng/mL); Ecstacy Urine VISTA POSITIVE (< 500 ng/mL); Methadone Urine VISTA NEGATIVE (< 300 ng/mL); PCP Urine VISTA NEGATIVE (< 25 ng/mL); THC Urine VISTA NEGATIVE (< 50 ng/mL); Vista UDS pH Range 5
== END ==
PROVIDERS: Family Provider Internal Medicine; PCP Internal Medicine; Referring Provider Psychiatry & Neurology Psychiatry; Visit Provider Psychiatry & Neurology Psychiatry
DX: Z79.899 Other long term (current) drug therapy (principal); F19.10 Other psychoactive substance abuse, uncomplicated; R53.83 Other fatigue
CPT/HCPCS: 80307

== ENCOUNTER 2018-05-27 09:38 | Emergency (ER) | payer MEDICARE, MEDICAID, SELFPAY ==
[2018-05-27 09:39] VITALS: BP 122/87; PULSE 87; RESP 18; TEMP 36.6; O2SAT 100; BMI 49.5
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
[2018-05-27] MEDS: 0.9% Normal Saline 1,000 ML 1000 ML IV (10:21)
[2018-05-27] MEDS: Ketorolac 30 MG/ML Syringe IV (10:22)
[2018-05-27] MEDS: diazePAM 5 MG Tablet PO (10:22)
--- NOTE | 2018-05-27 11:12 | ED.DEP ---
ED Disposition - Plan for ED Patient: Disposition: Home or Assisted Living Instructions: ED Head Injury Closed Prescriptions: Diazepam [Valium] 5 mg PO Q8 PRN #10 tablet PRN Reason: Muscle Spasm Ketorolac [Toradol] 10 mg PO Q6H PRN #14 tablet PRN Reason: Pain Referrals: Bret Salomon MD [Primary Care Provider] - 1 Week
[2018-05-27 11:28] VITALS: BP 107/73; PULSE 74; RESP 16; O2SAT 100
== END 2018-05-27 11:36 | disposition home or self-care (01) ==
PROVIDERS: Emergency Provider Emergency Medicine; Family Provider Internal Medicine; PCP Internal Medicine
DX: S16.1XXA Strain of muscle, fascia and tendon at neck level, initial encounter (principal); V43.52XA Car driver injured in collision with other type car in traffic accident, initial encounter; Y93.89 Activity, other specified; Y92.9 Unspecified place or not applicable; R51 Headache; K21.9 Gastro-esophageal reflux disease without esophagitis; F32.9 Major depressive disorder, single episode, unspecified; F41.9 Anxiety disorder, unspecified; Z79.899 Other long term (current) drug therapy
CPT/HCPCS: 70450; 72125; 96361; 96374; 99283; J7030; A4216

== ENCOUNTER 2018-05-30 22:16 | Emergency (ER) | payer MEDICARE, MEDICAID, SELFPAY ==
[2018-05-30 22:17] VITALS: BP 148/96; PULSE 95; RESP 18; TEMP 36.4; O2SAT 97; BMI 50.3
== END 2018-05-30 22:30 | disposition left against medical advice (07) ==
LOC: ED 22:35
PROVIDERS: Emergency Provider Emergency Medicine; Family Provider Internal Medicine; PCP Internal Medicine
DX: R69 Illness, unspecified (principal); Z53.21 Procedure and treatment not carried out due to patient leaving prior to being seen by health care provider

== ENCOUNTER → 2018-06-18 10:41 | Outpatient (CLI) | payer MEDICARE, MEDICAID, SELFPAY ==
[2018-05-30 22:17] VITALS: BMI 50.3
--- NOTE | 2018-06-18 10:44 | CT_ITS ---
STUDY: CT ABDOMEN AND PELVIS WITHOUT CONTRAST REASON FOR EXAM: Female, 53 years old. Left flank pain and hematuria RADIATION DOSAGE (If Supplied By Facility): CTDIvol = ( 33.65 ) mGy, DLP = ( 1698.42 ) mGycm TECHNIQUE: Transaxial images were obtained from the dome of the diaphragm to the symphysis pubis without oral contrast, and without intravenous contrast. Sagittal and coronal images were reconstructed. Individualized dose optimization techniques were used for this CT. COMPARISON: 10/03/2017 FINDINGS: The visualized lung bases are unremarkable. The visualized portions of the heart are within normal limits. Normal liver. There are surgical clips in the gallbladder fossa consistent with a prior cholecystectomy. Normal spleen. Normal pancreas. Normal bilateral adrenal glands. Normal right kidney. Normal left kidney. Gastric bypass. Small hiatal hernia. Normal small intestine. There are multiple colonic diverticula consistent with diverticulosis. The appendix is visualized and appears normal. Normal abdominal aorta. Normal inferior vena cava. Normal retroperitoneum. Normal urinary bladder. Normal abdominal wall. Normal osseous structures. CT/Abdomen/Pelvis without Cont IMPRESSION: No evidence of acute intestinal pathology or acute obstructive uropathy. Electronically Signed: Jordan Nguyen MD at 19:00 EDT Tel , Service support ,
== END ==
PROVIDERS: Family Provider Internal Medicine; PCP Internal Medicine; Referring Provider Urology; Visit Provider Urology
DX: R10.9 Unspecified abdominal pain (principal); R31.9 Hematuria, unspecified; Z87.442 Personal history of urinary calculi
CPT/HCPCS: 74176

== ENCOUNTER 2018-07-16 08:56 | Emergency (ER) | payer MEDICARE, MEDICAID, SELFPAY ==
[2018-07-16 08:57] VITALS: BP 126/80; PULSE 107; RESP 18; TEMP 36.6; O2SAT 94; BMI 53.2
--- NOTE | 2018-07-16 09:09 | EKG12_ITS ---
Test Reason : SOB Blood Pressure : / mmHG Vent. Rate : 096 BPM Atrial Rate : 096 BPM P-R Int : 168 ms QRS Dur : 106 ms QT Int : 356 ms P-R-T Axes : 008 -27 027 degrees QTc Int : 449 ms Normal sinus rhythm Minimal voltage criteria for LVH, may be normal variant Borderline ECG Confirmed by EDDY ODELL ([id number]), editor in chief newspaper ELISE CUEVAS ([id number]) on 07/18/2018 1:49:31 PM Referred By: FREDI Confirmed By:EDDY ODELL
--- NOTE | 2018-07-16 09:09 | RAD_ITS ---
STUDY: X-RAY CHEST REASON FOR EXAM: Female, 53 years old. Cough and shortness of breath beginning last night. Chest pain. TECHNIQUE: Single AP portable view of the chest. COMPARISON: None. FINDINGS: The lungs are mildly hypoexpanded. There is no acute infiltrate or mass. There is no demonstrated pleural abnormality. Normal size heart. Normal mediastinum and joanna. Normal visualized pulmonary arteries. Normal visualized aortic arch and descending thoracic aorta. The thoracic spine is obscured by the mediastinum. Question right rotator cuff injury. There is irregularity about the acromioclavicular joint which may be postsurgical. There is no demonstrated abnormality of the visualized soft tissue structures of the upper abdomen. RAD/Chest 1 View (Portable) IMPRESSION: No acute cardiopulmonary disease. Electronically Signed: Piero Grossman DO at 9:28 EDT Tel [phone], Service support ,
--- NOTE | 2018-07-16 09:17 | ED.DCSUM_ITS ---
- ER Visit Summary Date of Service: 07/16/18 Chief Complaint: Headache and cough History of Present Illness: The patient is a 53 F presenting with headache and cough. She states she began having a migraine approximately 2 days ago. This was gradual onset similar to her previous migraines. She denies nausea or vomiting. She complains of photophobia. No recent trauma. She states yesterday she developed a cough that is nonproductive. She denies fever. She has had mild shortness of breath. Complains of body aches. Denies chest pain. Denies other complaints. Physical Examination: Vitals are stable. Patient is afebrile. Alert no acute distress. Nontoxic-appearing. HEENT exam is unremarkable. Neck is supple. No meningismus Lungs are clear and equal bilaterally. Heart is regular rate and rhythm. Abdomen is soft nontender nondistended. Extremities are unremarkable. Skin is warm and dry. No rash No focal neurologic deficit. Remainder of exam is unremarkable. Emergency Department Course and Treatment: Patient given Reglan, Benadryl IV. EKG is sinus rate of 96 with no acute ischemic changes. Chest x-ray shows no acute process. CBC shows a white count of 18.1. Chemistries show BUN 26, creatinine 1.38. This is improved from previous. On repeat evaluation, patient is feeling improved. With ambulation her pulse ox is 94% on room air. She is given prescription for Tessalon Perles. She will be discharged to follow-up with her primary care physician. She is advised to return to ED for worsening complaints. Disposition: Discharge home Impression: Bronchitis; migraine, resolving This note was generated with [employer] dictation software. It may contain incorrect words, spelling, and punctuation that were not noted in review of the chart prior to signing ED Disposition - Plan for ED Patient: Referrals: Bret Salomon MD [Primary Care Provider] -
[2018-07-16 09:40] LABS: Absolute Lymphocyte Count 1.19 X10^3/ul (0.83-4.51); Basophil# 0.03 X10^3/uL; Basophil% 0.2 % (0-1); Eosinophil# 0.16 X10^3/uL; Eosinophils% 0.9 % (0-5); Hematocrit 32.9 % (37-47); Hemoglobin 10.2 g/dl (12.0-15.0); Lymphocyte # 1.19 X10^3/ul (4.0); Lymphocyte % 6.6 % (19-41); Mean Corpuscular Hgb 22.7 pg (27.0-32.0); Mean Corpuscular Volume 73.3 fL (81-99); Mean Platelet Vol. 8.9 fl (6.2-12.0); Monocyte# 0.72 X10^3/uL; Neutrophil # 15.99 X10^3/uL (2.7-7.7); Neutrophil % 88.1 % (47-70); Platelet Count 344 K/mm3 (150-450); RBC Distribution Width SD 48.1 fl (35.1-43.9); Red Blood Count 4.49 M/mm3 (4.2-5.4); White Blood Count 18.1 K/mm3 (4.4-11.0)
[2018-07-16 09:44] LABS: Anion Gap 7 (5-15); BUN 26 mg/dL (7-18); BUN/Creat Ratio 18.8 RATIO (10-20); Calcium,Total 8.8 mg/dL (8.5-10.1); Chloride 105 mmol/L (98-107); Creatinine, Serum 1.38 mg/dL (0.55-1.02); EST Glomerular Filtration Rate 43 mL/min (>60); Est Glom Filt Rate - Afr Amer 52 mL/min (>60); Estimated Creatinine Clearance 46.37 ml/min; Glucose 100 mg/dL (74-106); POSITIVE COUNT NO; POSITIVE DIFFERENTIAL NO; POSITIVE MORPHOLOGY NO; Potassium 3.7 mmol/L (3.5-5.1); Sodium Level 138 mmol/L (136-145)
[2018-07-16] MEDS: DiphenhydrAMINE 50 MG/ML Syringe 25 MG IV (10:03)
[2018-07-16] MEDS: Metoclopramide 10 MG/2 ML Vial 5 MG IV (10:03)
[2018-07-16 10:05] VITALS: BP 121/76; PULSE 96; RESP 18; O2SAT 96
[2018-07-16 10:56] VITALS: O2SAT 98
[2018-07-16 10:59] VITALS: BP 124/84; PULSE 88; RESP 16; O2SAT 97
--- NOTE | 2018-07-16 11:02 | ED.DEP ---
ED Disposition - Plan for ED Patient: Instructions: ED Upper Resp Infec No Abx Tx Prescriptions: Benzonatate [Tessalon Perle] 200 mg PO TID PRN PRN #20 capsule PRN Reason: Cough Referrals: Bret Salomon MD [Primary Care Provider] -
== END 2018-07-16 11:32 | disposition home or self-care (01) ==
PROVIDERS: Emergency Provider Emergency Medicine; Family Provider Internal Medicine; PCP Internal Medicine
DX: G43.909 Migraine, unspecified, not intractable, without status migrainosus (principal); J40 Bronchitis, not specified as acute or chronic; K21.9 Gastro-esophageal reflux disease without esophagitis; Z79.899 Other long term (current) drug therapy
CPT/HCPCS: 71045; 80048; 85025; 93005; 96374; 96375; 99284; A4216

== ENCOUNTER → 2018-08-25 | Outpatient (CLI) | payer MEDICARE, MEDICAID, SELFPAY ==
[2018-08-25 16:07] LABS: Anion Gap 8 (5-15); BUN 28 mg/dL (7-18); BUN/Creat Ratio 15.6 RATIO (10-20); Calcium,Total 11.4 mg/dL (8.5-10.1); Chloride 98 mmol/L (98-107); Cholesterol 224 mg/dL (200); EST Glomerular Filtration Rate 31 mL/min (>60); Est Glom Filt Rate - Afr Amer 38 mL/min (>60); Ferritin 5 ng/mL (8-252); Glucose 81 mg/dL (74-106); High Density Lipoprotein 64 mg/dL; Iron Binding Capacity,Total 354 ug/dL (250-450); Potassium 3.8 mmol/L (3.5-5.1); Sodium Level 138 mmol/L (136-145); Triglycerides 125 mg/dL; Very Low Density Lipoprotein 25 mg/dL (5-40)
== END | disposition home or self-care (01) ==
LOC: LABSPEC 15:30
PROVIDERS: Family Provider Internal Medicine; PCP Internal Medicine; Referring Provider Internal Medicine; Visit Provider Internal Medicine
DX: I10 Essential (primary) hypertension (principal); D50.8 Other iron deficiency anemias
CPT/HCPCS: 80048; 80061; 82728; 83550

== ENCOUNTER 2018-09-24 15:36 | Emergency (ER) | payer MEDICARE, MEDICAID, SELFPAY ==
[2018-09-24 15:37] VITALS: BP 142/87; PULSE 115; RESP 18; TEMP 36.6; O2SAT 99; BMI 50.1
--- NOTE | 2018-09-24 15:49 | ED.VIS.GEN ---
History of Present Illness Chief Complaint: Bite Informant: Patient Onset: Today Narrative: Patient presents to the ED with cat bite to her right wrist. She states she was petting her cat when she went to change the TV channel on her cat became angry and bit her. She has been having more frequent issues with this in the past with this cat. The cat's vaccinations are all up-to-date. Tetanus is up-to-date. She is right hand dominant. Past Medical History - Allergies and Home Meds Allergies/Adverse Reactions: Allergies Iodinated Contrast- Oral and IV Dye [DYEE] Allergy (Verified 09/24/18 15:37) Rash iron Adverse Reaction (Verified 09/24/18 15:37) Other ABD PAIN morphine Adverse Reaction (Verified 09/24/18 15:37) Rash ondansetron [From Zofran] Adverse Reaction (Verified 09/24/18 15:37) Other headache Primary Care Physician: Bret Salomon MD [Primary Care Provider] - Smoking Status: Never smoker Review of Systems General: Denies: Chills, Fever, Sweats Eyes: Denies: Visual changes - bilaterally, Diplopia ENT: Denies: Rhinorrhea, Sore throat Cardiovascular: Denies: Chest pain, Palpitations Respiratory: Denies: Dyspnea, Cough, Dyspnea on exertion Gastrointestinal: Denies: Abdominal pain, Nausea, Vomiting, Diarrhea, Melena, Hematochezia Genitourinary: Denies: Dysuria, Hematuria, Frequency Musculoskeletal: Denies: Back pain, Extremity Pain Skin: Reports: Wounds. Denies: Rash Neurological: Denies: Headache, Weakness, Numbness Physical Exam Vital Signs/Narrative: Vital Signs Temp Pulse Resp BP Pulse Ox 09/24/18 15:37 97.9 F 115 H 18 142/87 H 99 General: Well nourished, Well developed, No Acute Distress Head: Normocephalic, Atraumatic Eyes: Perrl, EOMI ENT: Moist mucous membranes, No rhinorrhea Neck: Supple, Nontender Cardiovascular: Regular rate, Regular rhythm, No murmurs Respiratory: No distress, CTA bilaterally, Chest nontender Abdomen: Soft, Nontender, Nondistended, Normal bowel sounds Back: Nontender, Normal Inspection Extremities: - - Tenderness to palpation over the dorsum of the right wrist. Full range of motion of right hand and wrist without difficulty. Radial pulse 2+ are normal two-point discrimination. Skin: - - 3 puncture wounds to the dorsum of the R wrist. The center punture wound does have surrounding edema. No lymphangitic streaking. No warmth to palpation. Neurological: Alert, Oriented x3, Cranial nerves II-XII grossly intact, Normal Strength, Normal Sensation Psychological: Normal affect, Normal Mood Diagnostic/Tx/Re-eval - Medical Decision Making Presents to the ED with cat bite to her right wrist. Her tetanus is up-to-date. Patient will be placed on a course of Augmentin. She is given her first dose here. She was educated on signs/symptoms to return to the ED. She is provided discharge instructions. She is agreeable to plan Disposition: Home stable Impression: Cat bite, right wrist ED Disposition - Plan for ED Patient: Disposition: Home or Assisted Living Diagnosis: Cat bite involving extremity Instructions: Cat Bite Prescriptions: Amoxicillin/Potassium Clav [Augmentin 875-125 Tablet] 1 ea PO BID #12 tab Prescription Printed Referrals: Bret Salomon MD [Primary Care Provider] -
[2018-09-24] MEDS: Amox/Clavulanate 875 MG Tablet PO (16:21)
[2018-09-24] MEDS: Naproxen 500 MG Tablet PO (16:22)
== END 2018-09-24 16:24 | disposition home or self-care (01) ==
LOC: ED 16:19
PROVIDERS: Emergency Provider Physician Assistant; Family Provider Internal Medicine; PCP Internal Medicine
DX: S60.871A Other superficial bite of right wrist, initial encounter (principal); W55.01XA Bitten by cat, initial encounter; Y93.89 Activity, other specified; Y92.9 Unspecified place or not applicable
CPT/HCPCS: 99283

== ENCOUNTER → 2018-10-06 13:33 | Outpatient (CLI) | payer MEDICARE, MEDICAID, SELFPAY ==
[2018-10-06 13:24] VITALS: BMI 50.1
--- NOTE | 2018-10-06 13:38 | RAD_ITS ---
STUDY: X-RAY - RIGHT WRIST REASON FOR EXAM: Female, 53 years old. Recent cat bite. TECHNIQUE: 3 view(s) of the wrist were obtained. COMPARISON: None. FINDINGS: Normal visualized distal radius and ulna. Normal radiocarpal articulation. Normal distal radioulnar articulation. Normal carpal bones. Normal carpal articulations. Normal carpometacarpal articulation of the thumb. Normal second through fifth carpometacarpal articulations. Normal visualized metacarpal bones. Diffuse soft tissue swelling. RAD/Wrist min 3 Views IMPRESSION: Diffuse soft tissue swelling. Electronically Signed: Nick Avery, at 14:05 EDT , Service support ,
== END ==
PROVIDERS: Family Provider Internal Medicine; PCP Internal Medicine; Referring Provider Physician Assistant; Visit Provider Physician Assistant
DX: S61.551A Open bite of right wrist, initial encounter (principal); W55.01XA Bitten by cat, initial encounter
CPT/HCPCS: 73110

== ENCOUNTER → 2018-10-07 13:52 | Outpatient (CLI) | payer MEDICARE, MEDICAID, SELFPAY ==
[2018-10-06 14:00] VITALS: BMI 50.1
== END ==
PROVIDERS: Family Provider Internal Medicine; PCP Internal Medicine; Referring Provider Physician Assistant; Visit Provider Physician Assistant
DX: S61.551A Open bite of right wrist, initial encounter (principal); W55.01XA Bitten by cat, initial encounter
CPT/HCPCS: 87070; 87205

== ENCOUNTER → 2018-11-01 14:04 | Outpatient (CLI) | payer MEDICARE, MEDICAID, SELFPAY ==
[2018-10-06 14:00] VITALS: BMI 50.1
[2018-11-01 14:28] LABS: Platelet Count 386 K/mm3 (150-450); RET-HE 32.2 pg (30-35); Reticulocyte Count 1.02 % (0.5-1.5)
[2018-11-01 14:40] LABS: Ferritin 168 ng/mL (8-252); Iron 63 ug/dL (50-170); Iron Binding Capacity,Total 198 ug/dL (250-450); PERCENT IRON SATURATION 31.8 % (15.0-55.0)
[2018-11-01 14:45] LABS: Vitamin D,25 Hydroxy 33.2 ng/mL (29.95-100.01)
[2018-11-03 12:52] LABS: Vitamin D 1,25-Dihydroxy 51.7 pg/mL (19.9-79.3)
== END ==
PROVIDERS: Family Provider Internal Medicine; PCP Internal Medicine; Referring Provider Internal Medicine Hematology & Oncology; Visit Provider Internal Medicine Hematology & Oncology
DX: D50.9 Iron deficiency anemia, unspecified (principal); Z98.84 Bariatric surgery status
CPT/HCPCS: 82306; 82652; 82728; 83540; 83550; 85045

== ENCOUNTER 2018-12-18 10:16 | Emergency (ER) | payer MEDICARE, MEDICAID, SELFPAY ==
[2018-10-06 14:00] VITALS: BMI 50.1
[2018-12-18 10:18] VITALS: BP 132/91; PULSE 101; RESP 20; TEMP 37.1; O2SAT 97; BMI 50.1
--- NOTE | 2018-12-18 10:32 | ED.VIS.GEN ---
History of Present Illness Chief Complaint: Lower Extremity Injury Detail of Chief Complaint: Right knee injury Informant: Patient Onset: Days Context: Gradual Onset Current Severity: Moderate Maximum Severity: Moderate Narrative: Patient presents after injuring her right knee 3 or 4 days ago. She states that her puppy turned and ran behind her. She was pulled off balance, twisted, and fell onto her right knee. She has pain and swelling along the medial right knee. She states she knows that her knees are already [id number]. Past Medical History - Allergies and Home Meds Allergies/Adverse Reactions: Allergies propranolol Allergy (Mild, Verified 12/18/18 10:20) unknow Iodinated Contrast Media [DYEE] Allergy (Verified 12/18/18 10:20) Rash iron Adverse Reaction (Verified 12/18/18 10:20) Other ABD PAIN morphine Adverse Reaction (Verified 12/18/18 10:20) Rash ondansetron [From Zofran] Adverse Reaction (Verified 12/18/18 10:20) Other headache Primary Care Physician: Bret Salomon MD [Primary Care Provider] - Prior records reviewed: Yes Past Medical History: - - Reviewed Smoking Status: Never smoker Review of Systems General: Denies: Chills, Fever Eyes: Denies: Visual changes - bilaterally ENT: Denies: Bilateral ear pain Cardiovascular: Denies: Chest pain Respiratory: Denies: Dyspnea Gastrointestinal: Denies: Abdominal pain Musculoskeletal: Reports: Arthralgias. Denies: Back pain Skin: Denies: Rash Neurological: Denies: Headache Hematologic: Denies: Easy bruising, Easy bleeding Allergy: Denies: Uticaria Physical Exam Vital Signs/Narrative: Vital Signs Temp Pulse Resp BP Pulse Ox 12/18/18 10:18 98.7 F 101 H 20 H 132/91 H 97 General: Well nourished, Well developed Head: Normocephalic ENT: Moist mucous membranes Neck: Supple Cardiovascular: Regular rate, Regular rhythm Respiratory: No distress Abdomen: Soft, Nontender Extremities: Tenderness - Tenderness palpation over area medial right knee. Good range of motion. Strong distal pulses. No tenderness of the hip. Skin: Normal color Neurological: Alert, Oriented x3 Psychological: Normal affect Diagnostic/Tx/Re-eval Right knee x-ray per my review reveals significant arthritic changes with no acute fracture. - Medical Decision Making Patient be given an Raymon wrap for her knee. She will be given a short course of [place] for pain. She already has follow-up appointment scheduled with her doctor this week. ED Disposition - Plan for ED Patient: Disposition: Home or Assisted Living Diagnosis: Knee contusion Instructions: CONTUSION, Lower Extremity Prescriptions: Hydrocodone Bitart/Apap 5-325 [[place] 5MG-325MG] 1 tablet PO Q6H PRN PRN 3 Days #10 tablet PRN Reason: Pain Referrals: Bret Salomon MD [Primary Care Provider] - Keep Nam appointment
--- NOTE | 2018-12-18 10:45 | RAD_ITS ---
STUDY: X-RAY - RIGHT KNEE REASON FOR EXAM: Female, 53 years old. Pain. Fall. TECHNIQUE: 4 view(s) of the knee. COMPARISON: None. FINDINGS: Normal visualized distal femur. Normal visualized proximal tibia and fibula. Normal proximal tibiofibular articulation. There is no demonstrated fracture. There is mild degenerative arthrosis of the medial femorotibial compartment. There is severe degenerative arthrosis of the lateral femorotibial compartment with severe joint space narrowing. There is moderate degenerative arthrosis of the patellofemoral articulation. There is a soft tissue prominence in the suprapatellar region suggesting a small volume joint effusion. The soft tissue structures are unremarkable. RAD/Knee 4 or More Views IMPRESSION: Degenerative arthrosis. Electronically Signed: Dylan Chery MD at 11:34 EDT , Service support ,
[2018-12-18 11:28] VITALS: PULSE 82; RESP 16; O2SAT 97
--- NOTE | 2018-12-18 11:32 | ED.RN ---
REVIEWED D/C INSTRUCTIONS, FOLLOW UP CARE, PRESCRIPTION, AND S/S THAT WOULD WARRANT A RETURN TO THE ED WITH PT. PT VERBALIZED AN UNDERSTANDING AND DENIES FURTHER QUESTIONS FOR THIS RN. PT SKIN P/W/D, RESP EVEN AND UNLABORED, PT A&O X 3, NO DISTRESS NOTED. PT ASSISTED OUT OF ED IN WHEELCHAIR.
== END 2018-12-18 11:34 | disposition home or self-care (01) ==
PROVIDERS: Emergency Provider Emergency Medicine; Family Provider Internal Medicine; PCP Internal Medicine
DX: S80.01XA Contusion of right knee, initial encounter (principal); W01.0XXA Fall on same level from slipping, tripping and stumbling without subsequent striking against object, initial encounter; Y93.9 Activity, unspecified
CPT/HCPCS: 73564; 99282

== ENCOUNTER 2019-10-03 17:51 | Inpatient (IN) | payer MEDICARE, MEDICAID, SELFPAY ==
[2019-10-03 18:00] VITALS: BMI 48.4
[2019-10-03 18:12] VITALS: BMI 48.4
[2019-10-03 18:17] VITALS: BP 111/75; PULSE 101; RESP 16; TEMP 37.1; O2SAT 97
--- NOTE | 2019-10-03 19:56 | HP.PCM_ITS ---
Problem List (1) Debility Status: Acute (2) Osteoarthritis of right knee Status: Chronic (3) Sleep apnea Status: Chronic (4) Kidney stone Status: Chronic (5) Chronic kidney disease, stage 3 Status: Chronic (6) Anemia Status: Chronic (7) Irritable bowel syndrome Status: Chronic (8) GERD (gastroesophageal reflux disease) Status: Chronic (9) Post traumatic stress disorder Status: Chronic (10) Restless leg syndrome Status: Chronic (11) Hypothyroidism Status: Chronic (12) Depression Status: Chronic (13) Vitamin D deficiency Status: Chronic (14) ADHD Status: Chronic (15) Allergic rhinitis Status: Chronic (16) Edema Status: Chronic (17) Anxiety Status: Chronic (18) Insomnia Status: Chronic (19) 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 The patient is a 54 year old Female with below past medical history with followin09/29/2019 Dr. Reyes performed right total knee arthroplasty. Postoperative course uncomplicated. 10/02/2019 COVID-19 NEGATIVE. 10/03/2019 Admit to TCU with debility, here for rehabilitation, strengthening, prior to discharge home alone. Past Medical History Past Medical History (Chronic Problems): Chronic Problems (Last Updated 10/06/18 @ 13:40 by Laury Fitzgerald) Osteoarthritis of right knee (Chronic) Sleep apnea (Chronic) Kidney stone (Chronic) Chronic kidney disease, stage 3 (Chronic) Anemia (Chronic) Irritable bowel syndrome (Chronic) GERD (gastroesophageal reflux disease) (Chronic) Post traumatic stress disorder (Chronic) Restless leg syndrome (Chronic) Hypothyroidism (Chronic) Depression (Chronic) Vitamin D deficiency (Chronic) ADHD (Chronic) Allergic rhinitis (Chronic) Edema (Chronic) Anxiety (Chronic) Insomnia (Chronic) 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) Migraine (Chronic) Hypokalemia (Chronic) Medical History: Medical History (Last Updated 10/06/18 @ 13:40 by Laury Fitzgerald) Anemia D64.9 Arthritis M19.90 Difficulty balancing R29.818 Fatigue R53.83 History of kidney stones Z87.442 Kidney disease N28.9 Knee pain M25.569 history of gastric sleeve history of left foot fracture history of right collar bone surgery Allergies propranolol Allergy (Mild, Verified 12/18/18 10:20) unknow Iodinated Contrast Media [DYEE] Allergy (Verified 12/18/18 10:20) Rash iron Adverse Reaction (Verified 12/18/18 10:20) Other ABD PAIN morphine Adverse Reaction (Verified 12/18/18 10:20) Rash ondansetron [From Zofran] Adverse Reaction (Verified 12/18/18 10:20) Other headache Home Medications: Ambulatory Orders Medication Instructions Recorded Dextroamphetamine/Amphetamine 40 mg PO BID 03/06/16 [Adderall 20 mg Tablet] Venlafaxine XR [Effexor Xr] 75 mg PO DAILY 03/06/16 buPROPion XL [Wellbutrin Xl] 150 mg PO DAILY 03/06/16 buPROPion XL [Wellbutrin Xl] 300 mg PO DAILY 03/06/16 Cholecalciferol (Vitamin D3) 2,000 unit PO DAILY 09/16/17 [Vitamin D3] Cyanocobalamin [Vitamin B12] 1,000 mcg PO DAILY@0800 09/16/17 Omeprazole [Prilosec] 20 mg PO DAILY 09/16/17 Zolpidem Tartrate [Ambien] 5 mg PO QHS PRN PRN 10/03/17 Calcitriol [Rocaltrol] 0.75 mcg PO DAILY 10/12/17 Cetirizine HCl [Allergy Relief] 10 mg PO DAILY 10/12/17 Magnesium 400 mg PO DAILY 10/12/17 Spironolactone [Aldactone] 100 mg PO DAILY 10/12/17 Aripiprazole 2 mg PO DAILY 02/22/18 ALPRAZolam [Xanax] 0.5 mg PO BID 07/16/18 cranberry 400 mg capsule 400 mg PO DAILY 10/06/18 diclofenac sodium 50 mg 50 mg PO BID 10/06/18 tablet,delayed release fluticasone propionate 50 2 spray INTRANASAL DAILY 10/06/18 mcg/actuation nasal spray,suspension gabapentin 100 mg capsule 100 mg PO DAILY 10/06/18 Aspirin [Adult Low Dose Aspirin EC] 81 mg PO BID 10/03/19 Calcium Citrate/Vitamin D3 2 tab PO DAILY 10/03/19 [Calcium Cit 315-Vit D3 250 Tab] Furosemide [Lasix] 20 mg PO DAILY 10/03/19 Gluc Guido/Chondro Guido A/Vit C/Mn 1 tab PO DAILY 10/03/19 [Glucosamine Chondroitin Tab] Levothyroxine Sodium [Synthroid] 75 mcg PO DAILY 10/03/19 Multivit with Calcium,Iron,Min 1 ea PO DAILY 10/03/19 [Multiple Vitamins For Women] Oxycodone CR [Oxycontin] 20 mg PO Q12H 10/03/19 Oxycodone HCl/Acetaminophen 1 tab PO Q6H PRN PRN 10/03/19 [Percocet 5-325] cycloBENZAPRine HCl [Flexeril] 10 mg PO TID PRN PRN 10/03/19 Surgical History: Surgical History (Last Updated 10/06/18 @ 13:38 by Laury Fitzgerald) H/O right knee surgery Z98.890 History of cholecystectomy Z90.49 History of hysterectomy Z90.710 History of parathyroidectomy Z90.09 Surgical History: cholecystectomy - 1993., hysterectomy, - - Gastric Sleeve 2006, Right knee meniscus repair 2012, 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 Psychiatric History: Anxiety, Depression HAT MODEL History: No pertinent HAT MODEL history Lives: Alone Smoking Status: Never smoker Tobacco Use: Non-smoker Alcohol: None Drugs: None - *Family History Maternal History Items: No pertinent history Paternal History Items: No pertinent history Review of Systems Constitutional: Denies: Chills, Fever, Weight Change HEENT: Denies: Head Aches, Sinus Congestion, Sinus Drainage Cardiovascular: Denies: Chest Pain, Palpitations Respiratory: Denies: Cough, Shortness of breath at rest, Sputum production Gastrointestinal: Denies: Abdominal Pain, Nausea, Vomiting Genitourinary: Denies: Dysuria Musculoskeletal: Reports: - - Muscle cramps.. Denies: Joint Pain, Joint Tenderness Skin: Denies: Rash, Wounds Neurological: Denies: Numbness, Tingling, Focal weakness Psychiatric: Denies: Anxiety, Depression, Homicidal Ideations, Suicidal Ideations Hematologic/ Lymphatic: Denies: Easy Bruising, Easy Bleeding VTE Information - Inpt Only VTE Present on Admission: No VTE Mechan Device Prophylaxis: Knee High MERLIN Hose VTE Pharm Prophylaxis ordered?: Yes Patient Problems: Active and Suspected Problems (Last Updated 10/06/18 @ 13:40 by Laury Fitzgerald) Debility (Acute) - Physical Exam Vitals/I&O's: Vital Signs Temp Pulse Resp BP Pulse Ox 98.8 F 101 H 16 111/75 97 10/03/19 18:17 10/03/19 18:17 10/03/19 18:17 10/03/19 18:17 10/03/19 18:17 Oxygen Delivery Method Room Air Weight: 140.245 kg Body Mass Index (BMI) 48.4 General: Alert, Oriented x3, Cooperative HEENT: Atraumatic, PERRLA, EOMI, Normocephalic Neck: Supple, No JVD, Negative Carotid Bruits Lungs: Clear to auscultation, Normal air movement Cardiovascular: Regular rate, No murmurs Abdomen: Bowel Sounds Present, Soft, Non Tender Extremities: No edema, Capillary Refill Less than 3 Seconds, - - Wound vac right knee. Skin: No rashes, No breakdown Musculoskeletal: No Tenderness to Palpation of Joints or Extremities Neurological: Cranial nerves II-XII grossly intact Psych/Mental Status: Normal Affect, Appropriate Current Medications Alprazolam (Xanax) 0.5 mg PO BID [facility] Aripiprazole (Abilify) 2 mg PO DAILY [facility] Aspirin (Ecotrin) 81 mg PO BIDCM [facility] Bupropion HCl (Wellbutrin Xl) 300 mg PO DAILY [facility] Bupropion HCl (Wellbutrin Xl) 150 mg PO DAILY [facility] Calcium/Vitamin D (Os-Sj 500mg + D) 1 tablet PO DAILYCM [facility] Cholecalciferol (Vitamin D (25mcg)) 2,000 unit PO DAILYCM [facility] Cyanocobalamin (Vitamin B12) 1,000 mcg PO DAILY@0800 [facility] Cyclobenzaprine HCl (Flexeril) 10 mg PO TID PRN PRN PRN Reason: Muscle spasms Fluticasone Propionate (Flonase Nasal [place]) 2 spray NASAL DAILY [facility] Furosemide (Lasix) 20 mg PO DAILY [facility] Levothyroxine Sodium (Synthroid) 75 mcg PO DAILY [facility] Multivitamins/Minerals (Multivitamin With Minerals (Bkc)) 1 tablet PO DAILY@0800 [facility] Nutritional Formula (Lactose Free) (Ensure Enlive) 120 ml PO 4X/DAY [facility] Oxycodone HCl (Oxycontin) 20 mg PO Q12H [facility] Stop: 10/13/19 18:01 Oxycodone HCl (Oxyir) 5 mg PO Q6H PRN PRN PRN Reason: pain Pantoprazole Sodium (Protonix) 20 mg PO DAILY [facility] Spironolactone (Aldactone) 100 mg PO DAILY [facility] Tuberculin PPD (Tubersol, Aplisol, Ppd) 5 tu ID X1 ONE Stop: 10/04/19 10:01 Tuberculin PPD (Tubersol, Aplisol, Ppd) 5 tu ID X1 ONE Stop: 10/11/19 10:01 Venlafaxine HCl (Effexor Xr) 75 mg PO DAILY [facility] Zolpidem Tartrate (Ambien (Generic)) 5 mg PO QHS PRN PRN PRN Reason: INSOMNIA Assessment/Plan All Active Problems (Last Updated 10/06/18 @ 13:40 by Laury Fitzgerald) Debility (Acute) Cat bite of right wrist (Acute) Ureteral calculus (Acute) 54 year old female with below past medical history hospitalized for right total knee replacement 09/29/[address] Reyes, admitted to TCU with debility, here for rehabilitation, strengthening, prior to discharge home alone. * Debility - PT/OT. * Pain - Tylenol 1000MG Q6H PRN pain (1-5), Oxycontin 20MG Q12H, Oxycodone 5MG Q6H PRN pain (6-10). * Bowel - Miralax 17GM BID, Senna/colace 2 tablets BID, Dulcolax 10MG MS daily PRN. * Adult immunization - Administer Prevnar 13, Pneumovax 23, Fluzone as appropriate. * DVT prophylaxis - Aspirin 81MG twice daily. * Anxiety - Xanax 0.5MG BID, stable chronic rn long term care use, GDR not recommended. * Depression - Venlafaxine XR 75MG daily, Wellbutrin XL 450MG daily, Abilify 2MG daily, stable chronic senior living use, GDR not recommended. * Calcium deficiency - Calcium D 1 tablet daily. * Vitamin D deficiency - D3 2000IU daily. * Vitamin B12 deficiency - B12 1000MCG daily. * Muscle spasm - Flexeril 10MG TID PRN. * Nutrition - MVI daily, Ensure Enlive 120ML 4x/day. * Allergic Rhinitis - Flonase 2 sprays nasal daily. * Edema - Aldactone 100MG daily, Lasix 20MG daily. * Hypothyroidism - Levothyroxine 75MCG daily. * GERD - Pantoprazole 20MG daily. * Insomnia - Zolpidem 5MG QHS PRN, stable chronic senior living use, GDR not recommended. * Hypocalcemia - Calcium 6.6, resident states due to her MEN I, she often has hypocalcemia with hand cramps, usually treated with IV calcium, will order.
[2019-10-03] MEDS: oxyCODONE HCl Cr 10 MG Tablet 20 MG PO (20:55)
[2019-10-04] MEDS: oxyCODONE 5 MG Tablet PO ×2 (01:21→10:44)
[2019-10-04 02:36] LABS: Probe Check PASS; Specimen Processing Control PASS
[2019-10-04 05:01] VITALS: BP 106/65; PULSE 86; RESP 16; TEMP 36.5; O2SAT 97
[2019-10-04] MEDS: oxyCODONE HCl Cr 10 MG Tablet 20 MG PO ×2 (05:04→17:16)
[2019-10-04] MEDS: Polyethylene Glycol 3350 17 GM PACKET PO ×2 (05:08→17:19)
[2019-10-04] MEDS: buPROPion (XL) 150 MG TABLET.XL PO (05:09)
[2019-10-04] MEDS: Levothyroxine 75 MCG Tablet PO (05:09)
[2019-10-04] MEDS: buPROPion (XL) 300 MG TABLET.XL PO (05:09)
[2019-10-04] MEDS: Senna/Docusate Sodium 1 Tablet 2 TABLET PO ×2 (05:09→17:18)
[2019-10-04] MEDS: Fluticasone 0.05% 1 SPRAY NASAL.SRY 2 SPRAY NASAL (05:10)
[2019-10-04] MEDS: Pantoprazole Sodium 20 MG Tablet PO (05:10)
[2019-10-04] MEDS: Spironolactone 50 MG Tablet 100 MG PO (05:10)
[2019-10-04] MEDS: Venlafaxine XR 75 MG Capsule PO (05:10)
[2019-10-04] MEDS: ARIPiprazole 2 MG Tablet PO (05:10)
[2019-10-04] MEDS: ALPRAZolam 0.5 MG Tablet PO ×2 (05:21→17:16)
[2019-10-04] MEDS: Nystatin Powder 15gm Bottle 1 APPLIC TOPICAL ×2 (05:21→17:17)
[2019-10-04] MEDS: Menthol/Lanolin/Calamine/Znox 113 GM Tube 1 APPLIC TOPICAL ×2 (05:21→17:18)
[2019-10-04 05:34] LABS: Absolute Lymphocyte Count 1.95 X10^3/uL (0.83-4.51); Absolute Neutrophil Count 6.2 X10^3/uL (2.0-7.7); Basophil# 0.05 X10^3/uL; Basophil% 0.5 % (0-1); Eosinophil# 0.75 X10^3/uL; Eosinophils% 7.6 % (0-5); Hemoglobin 12.1 g/dL (12.0-15.0); Lymphocyte # 1.95 X10^3/ul (4.0); Lymphocyte % 19.8 % (19-41); Mean Corp Hgb Conc 31.8 g/dL (32-36); Mean Corpuscular Hgb 28.3 pg (27.0-32.0); Mean Corpuscular Volume 88.8 fL (81-99); Mean Platelet Vol. 9.2 fl (6.2-12.0); Monocyte# 0.82 X10^3/uL; Monocyte% 8.3 % (0-10); NRBC Flagged by Analyzer 0 % (0-5); Neutrophil # 6.21 X10^3/uL (2.7-7.7); Neutrophil % 62.9 % (47-70); Platelet Count 377 K/mm3 (150-450); RBC Distribution Width CV 14.6 % (11.6-14.6); RBC Distribution Width SD 46.8 fl (35.1-43.9); Red Blood Count 4.28 M/mm3 (4.2-5.4); White Blood Count 9.9 K/mm3 (4.4-11.0)
[2019-10-04 05:57] LABS: Anion Gap 6 (5-15); BUN 17 mg/dL (7-18); BUN/Creat Ratio 15.3 RATIO (10-20); Calcium,Total 6.6 mg/dL (8.5-10.1); Chloride 100 mmol/L (98-107); Creatinine, Serum 1.11 mg/dL (0.55-1.02); EST Glomerular Filtration Rate 55 mL/min (>60); Est Glom Filt Rate - Afr Amer 66 mL/min (>60); Glucose 83 mg/dL (74-106); Potassium 3.5 mmol/L (3.5-5.1); Sodium Level 136 mmol/L (136-145)
[2019-10-04] MEDS: Calcium Carb/Vitamin D 1 TABLET Tablet PO (08:05)
[2019-10-04] MEDS: Multivitamins,Ther W-Minerals Tablet 1 TABLET PO (08:05)
[2019-10-04] MEDS: Aspirin E.C. 81 MG Tablet PO ×2 (08:05→17:18)
[2019-10-04] MEDS: Cyanocobalamin 500 MCG Tablet 1000 MCG PO (08:06)
[2019-10-04 10:00] VITALS: PULSE 96; RESP 16; O2SAT 93
[2019-10-04] MEDS: Tuberculin,Purif.prot.deriv. 50 TU/ML Vial 5 ML ID (10:15)
[2019-10-04] MEDS: 0.9% Saline Lock 10 ML Syringe IV (10:47)
--- NOTE | 2019-10-04 11:11 | NURSING ---
pt noted to not have a BM in a few days, warm prune juice and butter given
[2019-10-04 14:20] VITALS: BP 119/72; PULSE 94; RESP 18; TEMP 36.4; O2SAT 98
[2019-10-04] MEDS: Acetaminophen 500 MG Tablet 1000 MG PO (15:12)
[2019-10-04] MEDS: cycloBENZAPRine HCl 10 MG Tablet PO (15:12)
[2019-10-05] MEDS: oxyCODONE 5 MG Tablet PO ×4 (00:31→20:16)
[2019-10-05] MEDS: ALPRAZolam 0.5 MG Tablet PO ×2 (05:39→17:28)
[2019-10-05] MEDS: oxyCODONE HCl Cr 10 MG Tablet 20 MG PO ×2 (05:39→17:28)
[2019-10-05] MEDS: Pantoprazole Sodium 20 MG Tablet PO (05:40)
[2019-10-05] MEDS: Venlafaxine XR 75 MG Capsule PO (05:40)
[2019-10-05] MEDS: ARIPiprazole 2 MG Tablet PO (05:40)
[2019-10-05] MEDS: Furosemide 20 MG Tablet PO (05:41)
[2019-10-05] MEDS: Spironolactone 50 MG Tablet 100 MG PO (05:41)
[2019-10-05] MEDS: Senna/Docusate Sodium 1 Tablet 2 TABLET PO (05:41)
[2019-10-05] MEDS: buPROPion (XL) 150 MG TABLET.XL PO (05:41)
[2019-10-05] MEDS: buPROPion (XL) 300 MG TABLET.XL PO (05:41)
[2019-10-05] MEDS: Levothyroxine 75 MCG Tablet PO (05:42)
[2019-10-05] MEDS: Menthol/Lanolin/Calamine/Znox 113 GM Tube 1 APPLIC TOPICAL ×2 (05:44→17:23)
[2019-10-05] MEDS: Fluticasone 0.05% 1 SPRAY NASAL.SRY 2 SPRAY NASAL (05:45)
[2019-10-05] MEDS: Nystatin Powder 15gm Bottle 1 APPLIC TOPICAL ×2 (05:46→17:22)
[2019-10-05 05:47] VITALS: BP 129/81; PULSE 86; RESP 16; TEMP 36.9; O2SAT 95
[2019-10-05] MEDS: 0.9% Saline Lock 10 ML Syringe IV ×4 (05:49→18:25)
[2019-10-05 06:03] LABS: Anion Gap 7 (5-15); BUN 13 mg/dL (7-18); BUN/Creat Ratio 13.6 RATIO (10-20); Calcium,Total 6.4 mg/dL (8.5-10.1); Chloride 101 mmol/L (98-107); Creatinine, Serum 0.96 mg/dL (0.55-1.02); EST Glomerular Filtration Rate 65 mL/min (>60); Est Glom Filt Rate - Afr Amer 79 mL/min (>60); Glucose 84 mg/dL (74-106); Potassium 3.4 mmol/L (3.5-5.1); Sodium Level 138 mmol/L (136-145)
--- NOTE | 2019-10-05 06:10 | NURSING ---
Addendum entered by Halley Rucker 10/05/19 06:14: Dr. Stevens notified of Ca level of 6.4 this morning. No new orders given at this time. Original Note: Lab notified this nurse that this patient calcium result was 6.4 this AM yesterday calcium 6.6. Given one time dose of calcium gluconate 2gm IV yesterday. Rn's made aware of lab values.
[2019-10-05] MEDS: Calcium Carb/Vitamin D 1 TABLET Tablet PO ×2 (08:47→15:59)
[2019-10-05] MEDS: Cyanocobalamin 500 MCG Tablet 1000 MCG PO (08:48)
[2019-10-05] MEDS: Multivitamins,Ther W-Minerals Tablet 1 TABLET PO (08:48)
[2019-10-05] MEDS: Aspirin E.C. 81 MG Tablet PO ×2 (08:48→15:59)
--- NOTE | 2019-10-05 12:40 | NURSING ---
Wound vac removed to right leg today and left FIDELIA per order, incision well approximated, slight redness around incision site but pt denies pain, no drainage or other s/s of infection noted at this time
[2019-10-05 14:07] VITALS: BP 125/61; PULSE 85; RESP 17; TEMP 36.2; O2SAT 94
--- NOTE | 2019-10-05 15:28 | PCM.PN.RX ---
<August Rothmani - Last Filed: 10/05/19 15:28> Progress Note - Pharmacy Subjective: TCU Admission Objective: Allergies propranolol Allergy (Mild, Verified 12/18/18 10:20) unknow Iodinated Contrast Media [DYEE] Allergy (Verified 12/18/18 10:20) Rash iron Adverse Reaction (Verified 12/18/18 10:20) Other ABD PAIN morphine Adverse Reaction (Verified 12/18/18 10:20) Rash ondansetron [From Zofran] Adverse Reaction (Verified 12/18/18 10:20) Other headache Current Medications Generic Name Dose Route Start Last Admin Trade Name Freq PRN Reason Stop Dose Admin Acetaminophen 1,000 mg 10/03/19 20:16 10/04/19 15:12 Tylenol PO 1,000 mg Q6H PRN Administration Pain Score 1-5/10 Alprazolam 0.5 mg 10/05/19 18:00 Xanax PO BID [facility] Aripiprazole 2 mg 10/04/19 06:00 10/05/19 05:40 Abilify PO 2 mg DAILY [facility] Administration Aspirin 81 mg 10/04/19 08:00 10/05/19 08:48 Ecotrin PO 81 mg BIDCM [facility] Administration Bisacodyl 10 mg 10/03/19 20:15 Dulcolax RECTAL DAILY PRN Constipation Bupropion HCl 300 mg 10/04/19 06:00 10/05/19 05:41 Wellbutrin Xl PO 300 mg DAILY [facility] Administration Bupropion HCl 150 mg 10/04/19 06:00 10/05/19 05:41 Wellbutrin Xl PO 150 mg DAILY [facility] Administration Calamine/Phenol 1 applic 10/04/19 06:00 10/05/19 05:44 Calmoseptine Ointment TOPICAL 1 applicatio BID [facility] Administration Protocol Calcium/Vitamin D 1 tablet 10/05/19 08:00 10/05/19 08:47 Os-Stacey 500mg + D PO 1 tablet BIDCM [facility] Administration Cholecalciferol 2,000 unit 10/04/19 08:00 10/05/19 08:48 Vitamin D (25mcg) PO 2,000 unit DAILYCM [facility] Administration Cyanocobalamin 1,000 mcg 10/04/19 08:00 10/05/19 08:48 Vitamin B12 PO 1,000 mcg DAILY@0800 [facility] Administration Cyclobenzaprine HCl 10 mg 10/03/19 18:24 10/04/19 15:12 Flexeril PO 10 mg TID PRN PRN Administration Muscle spasms Fluticasone Propionate 2 spray 10/04/19 06:00 10/05/19 05:45 Flonase Nasal [place] NASAL 2 applicatio DAILY [facility] Administration Furosemide 20 mg 10/04/19 06:00 10/05/19 05:41 Lasix PO 20 mg DAILY [facility] Administration Sodium Chloride 250 mls @ 15 mls/hr 10/04/19 09:02 10/05/19 12:26 IV 0 mls/hr .[id number] PRN Infusion Saline Flush Sodium Chloride 250 mls @ 15 mls/hr 10/04/19 09:02 IV .[id number] PRN Additional IVPB Infusion Calcium Gluconate 2 gm/ Sodium 120 mls @ 10 mls/hr 10/05/19 18:00 Chloride IV 10/06/19 05:59 X1 ONE Levothyroxine Sodium 75 mcg 10/04/19 06:00 10/05/19 05:42 Synthroid PO 75 mcg DAILY [facility] Administration Multivitamins/Minerals 1 tablet 10/04/19 08:00 10/05/19 08:48 Multivitamin With Minerals (Bkc) PO 1 tablet DAILY@0800 [facility] Administration Nystatin 1 applic 10/04/19 06:00 10/05/19 05:46 Mycostatin Powder TOPICAL 1 applicatio BID [facility] Administration Protocol Oxycodone HCl 20 mg 10/03/19 18:00 10/05/19 05:39 Oxycontin PO 10/13/19 18:01 20 mg Q12H [facility] Administration Oxycodone HCl 5 mg 10/04/19 17:40 10/05/19 14:30 Oxyir PO 5 mg Q4H PRN PRN Administration Pain Score 6-10/10 Pantoprazole Sodium 20 mg 10/04/19 06:00 10/05/19 05:40 Protonix PO 20 mg DAILY [facility] Administration Polyethylene Glycol 17 gm 10/04/19 06:00 10/05/19 05:42 Miralax PO Not Given BID [facility] Potassium Chloride 20 meq 10/06/19 08:00 K-Dur PO DAILYCM [facility] Senna/Docusate Sodium 2 tablet 10/04/19 06:00 10/05/19 05:41 Senokot-S, Marlene-Colace PO 2 tablet BID [facility] Administration Sodium Chloride 10 - 40 ml 10/04/19 09:02 10/05/19 12:20 IV 10 ml UD PRN Administration SALINE FLUSH Spironolactone 100 mg 10/04/19 06:00 10/05/19 05:41 Aldactone PO 100 mg DAILY [facility] Administration Tuberculin PPD 5 tu 10/11/19 10:00 Tubersol, Aplisol, Ppd ID 10/11/19 10:01 X1 ONE Venlafaxine HCl 75 mg 10/04/19 06:00 10/05/19 05:40 Effexor Xr PO 75 mg DAILY [facility] Administration Zolpidem Tartrate 5 mg 10/03/19 18:30 Ambien (Generic) PO QHS PRN PRN INSOMNIA Problem List (Last Updated 10/06/18 @ 13:40 by Laury Fitzgerald) Debility (Acute) Osteoarthritis of right knee (Chronic) Sleep apnea (Chronic) Kidney stone (Chronic) Chronic kidney disease, stage 3 (Chronic) Anemia (Chronic) Irritable bowel syndrome (Chronic) GERD (gastroesophageal reflux disease) (Chronic) Post traumatic stress disorder (Chronic) Restless leg syndrome (Chronic) Hypothyroidism (Chronic) Depression (Chronic) Vitamin D deficiency (Chronic) ADHD (Chronic) Allergic rhinitis (Chronic) Edema (Chronic) Anxiety (Chronic) Insomnia (Chronic) 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) Migraine (Chronic) Hypokalemia (Chronic) Vital Signs Temp Pulse Resp BP Pulse Ox 97.2 F L 85 17 125/61 H 94 10/05/19 14:07 10/05/19 14:07 10/05/19 14:07 10/05/19 14:07 10/05/19 14:07 Oxygen Delivery Method Room Air Weight: 140.245 kg Body Mass Index (BMI) 48.4 Sodium 138 mmol/L (136-145) 10/05/19 05:15 Potassium 3.4 mmol/L (3.5-5.1) L 10/05/19 05:15 Chloride 101 mmol/L (98-107) 10/05/19 05:15 Carbon Dioxide 30.0 mmol/L (21.0-32.0) 10/05/19 05:15 Anion Gap 7 (5-15) 10/05/19 05:15 BUN 13 mg/dL (7-18) 10/05/19 05:15 Creatinine 0.96 mg/dL (0.55-1.02) 10/05/19 05:15 Est GFR (MDRD) Af Amer 79 mL/min (>60) 10/05/19 05:15 Est GFR (MDRD) Non-Af 65 mL/min (>60) 10/05/19 05:15 BUN/Creatinine Ratio 13.6 RATIO (10-20) 10/05/19 05:15 Glucose 84 mg/dL (74-106) 10/05/19 05:15 Assessment/Plan: 1. Pain: acetaminophen 1000mg PO Q6H PRN pain 1-07/15, Oxycodone CR 20mg PO Q12H thru 10/13/19, Oxycodone 5mg PO Q4H PRN pain -12/15. Please continue to monitor S/S of pain, PRN usage, respiratory depression and constipation. 2. DVT prophylaxis: aspirin 81mg PO BIDCM. Please continue to monitor for S/S of bleeding/DVT. 3. Edema: spironolactone 100mg PO daily and furosemide 20mg PO daily. Please continue to monitor for S/S of edema, renal function and electrolytes. 4. Muscle spasm: cyclobenzaprine 10mg PO TID PRN muscle spasms. Please continue to monitor for muscle spasms and PRN usage. 5. Allergic rhinitis: Flonase 2 sprays nasally DAILY. Please continue to monitor for dry nose and allergy symptoms. *6. Hypothyroidism: levothyroxine 75mcg PO DAILY. Please consider ordering a TSH now and then annually as clinically appropriate. Last level from 2016. Thanks. 7. GERD: pantoprazole 20mg PO DAILY. Please continue to monitor for GERD symptoms. *8. Overall nutrition/vitamin deficiencies: multivitamin 1T PO DAILYCM, Os-stacey + D 1T PO BIDCM, cholecalciferol 2000units PO DAILYCM, cyanocobalamin 1000mcg PO DAILYCM. Please consider ordering a vitamin B level (last from 2013). Please continue to monitor calcium and vitamin D. 9. Hypocalcemia: calcium gluconate 2gm IV x1 @ 1800. Also had a dose this morning. Please continue to monitor calcium levels. Psychotropic Medications: 1. Anxiety: alprazolam 0.5mg PO BID. Please continue to monitor for S/S of anxiety. Please see physician note regarding GDR. 2. Depression: aripiprazole 2mg PO DAILY, bupropion XL 450mg PO DAILY, venlafaxine XR 75mg PO DAILY. Please continue to monitor for S/S of depression. Please see physician not regarding GDR. 3. Insomnia: zolpidem 5mg PO QHS PRN insomnia. Please continue to monitor for insomnia. Please see physician note regarding GDR. Unnecessary Medications: None Bowel Regimen: bisacodyl 10mg rectal DAILY PRN, Miralax 17gm PO BID, Senna/Docusate 2T PO BID. Please continue to monitor for S/S of constipation and prn usage. Date of Note:: 10/05/19 - Provider Comments Provider responsibility: Provider responsible to enter orders to implement recommendations <Jude Stevens Chi - Last Filed: 10/05/19 16:46> Progress Note - Pharmacy Subjective: [] Objective: Allergies propranolol Allergy (Mild, Verified 12/18/18 10:20) unknow Iodinated Contrast Media [DYEE] Allergy (Verified 12/18/18 10:20) Rash iron Adverse Reaction (Verified 12/18/18 10:20) Other ABD PAIN morphine Adverse Reaction (Verified 12/18/18 10:20) Rash ondansetron [From Zofran] Adverse Reaction (Verified 12/18/18 10:20) Other headache Current Medications Generic Name Dose Route Start Last Admin Trade Name Freq PRN Reason Stop Dose Admin Acetaminophen 1,000 mg 10/03/19 20:16 10/04/19 15:12 Tylenol PO 1,000 mg Q6H PRN Administration Pain Score 1-5/10 Alprazolam 0.5 mg 10/05/19 18:00 Xanax PO BID [facility] Aripiprazole 2 mg 10/04/19 06:00 10/05/19 05:40 Abilify PO 2 mg DAILY [facility] Administration Aspirin 81 mg 10/04/19 08:00 10/05/19 15:59 Ecotrin PO 81 mg BIDCM [facility] Administration Bisacodyl 10 mg 10/03/19 20:15 Dulcolax RECTAL DAILY PRN Constipation Bupropion HCl 300 mg 10/04/19 06:00 10/05/19 05:41 Wellbutrin Xl PO 300 mg DAILY [facility] Administration Bupropion HCl 150 mg 10/04/19 06:00 10/05/19 05:41 Wellbutrin Xl PO 150 mg DAILY [facility] Administration Calamine/Phenol 1 applic 10/04/19 06:00 10/05/19 05:44 Calmoseptine Ointment TOPICAL 1 applicatio BID [facility] Administration Protocol Calcium/Vitamin D 1 tablet 10/05/19 08:00 10/05/19 15:59 Os-Stacey 500mg + D PO 1 tablet BIDCM [facility] Administration Cholecalciferol 2,000 unit 10/04/19 08:00 10/05/19 08:48 Vitamin D (25mcg) PO 2,000 unit DAILYCM [facility] Administration Cyanocobalamin 1,000 mcg 10/04/19 08:00 10/05/19 08:48 Vitamin B12 PO 1,000 mcg DAILY@0800 [facility] Administration Cyclobenzaprine HCl 10 mg 10/03/19 18:24 10/04/19 15:12 Flexeril PO 10 mg TID PRN PRN Administration Muscle spasms Fluticasone Propionate 2 spray 10/04/19 06:00 10/05/19 05:45 Flonase Nasal [place] NASAL 2 applicatio DAILY [facility] Administration Furosemide 20 mg 10/04/19 06:00 10/05/19 05:41 Lasix PO 20 mg DAILY [facility] Administration Sodium Chloride 250 mls @ 15 mls/hr 10/04/19 09:02 10/05/19 12:26 IV 0 mls/hr .[id number] PRN Infusion Saline Flush Sodium Chloride 250 mls @ 15 mls/hr 10/04/19 09:02 IV .[id number] PRN Additional IVPB Infusion Calcium Gluconate 2 gm/ Sodium 120 mls @ 10 mls/hr 10/05/19 18:00 Chloride IV 10/06/19 05:59 X1 ONE Levothyroxine Sodium 75 mcg 10/04/19 06:00 10/05/19 05:42 Synthroid PO 75 mcg DAILY [facility] Administration Multivitamins/Minerals 1 tablet 10/04/19 08:00 10/05/19 08:48 Multivitamin With Minerals (Bkc) PO 1 tablet DAILY@0800 [facility] Administration Nystatin 1 applic 10/04/19 06:00 10/05/19 05:46 Mycostatin Powder TOPICAL 1 applicatio BID [facility] Administration Protocol Oxycodone HCl 20 mg 10/03/19 18:00 10/05/19 05:39 Oxycontin PO 10/13/19 18:01 20 mg Q12H [facility] Administration Oxycodone HCl 5 mg 10/04/19 17:40 10/05/19 14:30 Oxyir PO 5 mg Q4H PRN PRN Administration Pain Score 6-10/10 Pantoprazole Sodium 20 mg 10/04/19 06:00 10/05/19 05:40 Protonix PO 20 mg DAILY [facility] Administration Polyethylene Glycol 17 gm 10/04/19 06:00 10/05/19 05:42 Miralax PO Not Given BID [facility] Potassium Chloride 20 meq 10/06/19 08:00 K-Dur PO DAILYCM [facility] Senna/Docusate Sodium 2 tablet 10/04/19 06:00 10/05/19 05:41 Senokot-S, Marlene-Colace PO 2 tablet BID [facility] Administration Sodium Chloride 10 - 40 ml 10/04/19 09:02 10/05/19 12:20 IV 10 ml UD PRN Administration SALINE FLUSH Spironolactone 100 mg 10/04/19 06:00 10/05/19 05:41 Aldactone PO 100 mg DAILY [facility] Administration Tuberculin PPD 5 tu 10/11/19 10:00 Tubersol, Aplisol, Ppd ID 10/11/19 10:01 X1 ONE Venlafaxine HCl 75 mg 10/04/19 06:00 10/05/19 05:40 Effexor Xr PO 75 mg DAILY [facility] Administration Zolpidem Tartrate 5 mg 10/03/19 18:30 Ambien (Generic) PO QHS PRN PRN INSOMNIA Problem List (Last Updated 10/06/18 @ 13:40 by Laury Fitzgerald) Debility (Acute) Osteoarthritis of right knee (Chronic) Sleep apnea (Chronic) Kidney stone (Chronic) Chronic kidney disease, stage 3 (Chronic) Anemia (Chronic) Irritable bowel syndrome (Chronic) GERD (gastroesophageal reflux disease) (Chronic) Post traumatic stress disorder (Chronic) Restless leg syndrome (Chronic) Hypothyroidism (Chronic) Depression (Chronic) Vitamin D deficiency (Chronic) ADHD (Chronic) Allergic rhinitis (Chronic) Edema (Chronic) Anxiety (Chronic) Insomnia (Chronic) 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) Migraine (Chronic) Hypokalemia (Chronic) Vital Signs Temp Pulse Resp BP Pulse Ox 97.2 F L 85 17 125/61 H 94 10/05/19 14:07 10/05/19 14:07 10/05/19 14:07 10/05/19 14:07 10/05/19 14:07 Oxygen Delivery Method Room Air Weight: 140.245 kg Body Mass Index (BMI) 48.4 Sodium 138 mmol/L (136-145) 10/05/19 05:15 Potassium 3.4 mmol/L (3.5-5.1) L 10/05/19 05:15 Chloride 101 mmol/L (98-107) 10/05/19 05:15 Carbon Dioxide 30.0 mmol/L (21.0-32.0) 10/05/19 05:15 Anion Gap 7 (5-15) 10/05/19 05:15 BUN 13 mg/dL (7-18) 10/05/19 05:15 Creatinine 0.96 mg/dL (0.55-1.02) 10/05/19 05:15 Est GFR (MDRD) Af Amer 79 mL/min (>60) 10/05/19 05:15 Est GFR (MDRD) Non-Af 65 mL/min (>60) 10/05/19 05:15 BUN/Creatinine Ratio 13.6 RATIO (10-20) 10/05/19 05:15 Glucose 84 mg/dL (74-106) 10/05/19 05:15 Assessment/Plan: Psychotropic Medications: Unnecessary Medications: Bowel Regimen: - Provider Comments Provider responsibility: Provider responsible to enter orders to implement recommendations Provider Comments to Recommendations by Pharmacy: Agree
--- NOTE | 2019-10-05 16:36 | CASEMGMT ---
Social Work Discussed code status. Pt confirmed full code. MOLST form completed and placed in chart. Serina Long, ACCOUNT MANAGER [facility] SUPPORT REPRESENTATIVE
--- NOTE | 2019-10-05 17:25 | RAD_ITS ---
STUDY: X-RAY CHEST REASON FOR EXAM: Female, 54 years old. S/P TOTAL KNEE REPLACEMENT, ADVENTITIOUS LUNG SOUNDS TECHNIQUE: AP portable COMPARISON: 07/16/2018. FINDINGS: There is minor interstitial thickening in the lower lobes. Lungs are otherwise clear.. There is no demonstrated pleural abnormality. Normal size heart. Normal mediastinum and joanna. Normal visualized pulmonary arteries. Normal visualized aortic arch and descending thoracic aorta. Dorsal spine demonstrates degenerative change.. Normal visualized ribs, clavicles, and shoulders. There is no demonstrated abnormality of the visualized soft tissue structures of the upper abdomen. No significant change since prior exam RAD/Chest PA and Lateral IMPRESSION: No acute cardiopulmonary pathology Electronically Signed: Syed Jones MD at 18:57 EDT , Service support ,
[2019-10-06 04:07] VITALS: BP 115/65; PULSE 86; RESP 16; TEMP 36.6; O2SAT 90
[2019-10-06] MEDS: Fluticasone 0.05% 1 SPRAY NASAL.SRY 2 SPRAY NASAL (05:19)
[2019-10-06] MEDS: ALPRAZolam 0.5 MG Tablet PO ×2 (05:20→17:11)
[2019-10-06] MEDS: buPROPion (XL) 300 MG TABLET.XL PO (05:20)
[2019-10-06] MEDS: oxyCODONE HCl Cr 10 MG Tablet 20 MG PO ×2 (05:20→17:02)
[2019-10-06] MEDS: Levothyroxine 75 MCG Tablet PO (05:20)
[2019-10-06] MEDS: Senna/Docusate Sodium 1 Tablet 2 TABLET PO ×2 (05:20→17:06)
[2019-10-06] MEDS: Pantoprazole Sodium 20 MG Tablet PO (05:20)
[2019-10-06] MEDS: Venlafaxine XR 75 MG Capsule PO (05:20)
[2019-10-06] MEDS: Furosemide 20 MG Tablet PO (05:21)
[2019-10-06] MEDS: ARIPiprazole 2 MG Tablet PO (05:21)
[2019-10-06] MEDS: buPROPion (XL) 150 MG TABLET.XL PO (05:21)
[2019-10-06] MEDS: Spironolactone 50 MG Tablet 100 MG PO (05:21)
[2019-10-06] MEDS: Menthol/Lanolin/Calamine/Znox 113 GM Tube 1 APPLIC TOPICAL ×2 (05:26→17:07)
[2019-10-06] MEDS: Nystatin Powder 15gm Bottle 1 APPLIC TOPICAL ×2 (05:26→17:07)
[2019-10-06 06:21] LABS: Anion Gap 3 (5-15); BUN 11 mg/dL (7-18); BUN/Creat Ratio 10.6 RATIO (10-20); Calcium,Total 7.2 mg/dL (8.5-10.1); Chloride 102 mmol/L (98-107); Creatinine, Serum 1.04 mg/dL (0.55-1.02); EST Glomerular Filtration Rate 59 mL/min (>60); Est Glom Filt Rate - Afr Amer 71 mL/min (>60); Estimated Creatinine Clearance 60.83 ml/min; Glucose 87 mg/dL (74-106); Sodium Level 138 mmol/L (136-145)
[2019-10-06] MEDS: 0.9% Saline Lock 10 ML Syringe IV ×3 (08:04→17:14)
[2019-10-06] MEDS: Calcium Carb/Vitamin D 1 TABLET Tablet PO ×2 (08:06→17:06)
[2019-10-06] MEDS: Cyanocobalamin 500 MCG Tablet 1000 MCG PO (08:06)
[2019-10-06] MEDS: Multivitamins,Ther W-Minerals Tablet 1 TABLET PO (08:07)
[2019-10-06] MEDS: Aspirin E.C. 81 MG Tablet PO ×2 (08:07→17:06)
[2019-10-06 14:04] VITALS: BP 101/63; PULSE 91; RESP 16; TEMP 35.6; O2SAT 96
[2019-10-06] MEDS: oxyCODONE 5 MG Tablet PO (14:18)
[2019-10-06 21:15] VITALS: PULSE 80; RESP 16; O2SAT 97
[2019-10-07] MEDS: oxyCODONE 5 MG Tablet PO ×3 (03:58→14:30)
[2019-10-07 06:06] VITALS: BP 105/69; PULSE 83; RESP 16; TEMP 36.6; O2SAT 97
[2019-10-07] MEDS: ALPRAZolam 0.5 MG Tablet PO ×2 (06:07→17:49)
[2019-10-07] MEDS: oxyCODONE HCl Cr 10 MG Tablet 20 MG PO ×2 (06:08→17:49)
[2019-10-07] MEDS: buPROPion (XL) 150 MG TABLET.XL PO (06:09)
[2019-10-07] MEDS: Senna/Docusate Sodium 1 Tablet 2 TABLET PO ×2 (06:10→17:50)
[2019-10-07] MEDS: buPROPion (XL) 300 MG TABLET.XL PO (06:11)
[2019-10-07] MEDS: Venlafaxine XR 75 MG Capsule PO (06:11)
[2019-10-07] MEDS: Levothyroxine 75 MCG Tablet PO (06:12)
[2019-10-07] MEDS: Spironolactone 50 MG Tablet 100 MG PO (06:12)
[2019-10-07] MEDS: Pantoprazole Sodium 20 MG Tablet PO (06:12)
[2019-10-07] MEDS: Furosemide 20 MG Tablet PO (06:13)
[2019-10-07] MEDS: Fluticasone 0.05% 1 SPRAY NASAL.SRY 2 SPRAY NASAL (06:15)
[2019-10-07] MEDS: Nystatin Powder 15gm Bottle 1 APPLIC TOPICAL ×2 (06:18→17:50)
[2019-10-07] MEDS: Menthol/Lanolin/Calamine/Znox 113 GM Tube 1 APPLIC TOPICAL ×2 (06:19→17:51)
[2019-10-07] MEDS: ARIPiprazole 2 MG Tablet PO (06:46)
[2019-10-07] MEDS: Cyanocobalamin 500 MCG Tablet 1000 MCG PO (08:22)
[2019-10-07] MEDS: Calcium Carb/Vitamin D 1 TABLET Tablet PO ×2 (08:23→17:21)
[2019-10-07] MEDS: Aspirin E.C. 81 MG Tablet PO ×2 (08:23→17:20)
[2019-10-07] MEDS: Acetaminophen 500 MG Tablet 1000 MG PO (08:23)
[2019-10-07] MEDS: Multivitamins,Ther W-Minerals Tablet 1 TABLET PO (08:23)
[2019-10-07 08:43] LABS: Anion Gap 6 (5-15); BUN 11 mg/dL (7-18); BUN/Creat Ratio 10.9 RATIO (10-20); Calcium,Total 7.4 mg/dL (8.5-10.1); Chloride 100 mmol/L (98-107); Creatinine, Serum 1.01 mg/dL (0.55-1.02); EST Glomerular Filtration Rate 61 mL/min (>60); Est Glom Filt Rate - Afr Amer 74 mL/min (>60); Estimated Creatinine Clearance 62.64 ml/min; Glucose 99 mg/dL (74-106); Potassium 3.8 mmol/L (3.5-5.1); Sodium Level 136 mmol/L (136-145)
[2019-10-07] MEDS: 0.9% Saline Lock 10 ML Syringe IV ×3 (09:31→14:18)
[2019-10-07 10:00] VITALS: PULSE 90; RESP 18; O2SAT 98
[2019-10-07 14:10] VITALS: BP 109/67; PULSE 78; RESP 18; TEMP 36.4; O2SAT 96
[2019-10-08 05:00] VITALS: BP 116/79; PULSE 88; RESP 16; TEMP 36.8; O2SAT 97
[2019-10-08] MEDS: oxyCODONE HCl Cr 10 MG Tablet 20 MG PO ×2 (05:47→17:47)
[2019-10-08] MEDS: Pantoprazole Sodium 20 MG Tablet PO (05:48)
[2019-10-08] MEDS: ALPRAZolam 0.5 MG Tablet PO ×2 (05:48→17:47)
[2019-10-08] MEDS: buPROPion (XL) 300 MG TABLET.XL PO (05:48)
[2019-10-08] MEDS: buPROPion (XL) 150 MG TABLET.XL PO (05:48)
[2019-10-08] MEDS: Senna/Docusate Sodium 1 Tablet 2 TABLET PO ×2 (05:49→17:48)
[2019-10-08] MEDS: Spironolactone 50 MG Tablet 100 MG PO (05:49)
[2019-10-08] MEDS: Venlafaxine XR 75 MG Capsule PO (05:49)
[2019-10-08] MEDS: Furosemide 20 MG Tablet PO (05:49)
[2019-10-08] MEDS: ARIPiprazole 2 MG Tablet PO (05:49)
[2019-10-08] MEDS: Levothyroxine 75 MCG Tablet PO (05:49)
[2019-10-08] MEDS: Fluticasone 0.05% 1 SPRAY NASAL.SRY 2 SPRAY NASAL (05:51)
[2019-10-08] MEDS: Menthol/Lanolin/Calamine/Znox 113 GM Tube 1 APPLIC TOPICAL ×2 (05:54→17:51)
[2019-10-08] MEDS: Nystatin Powder 15gm Bottle 1 APPLIC TOPICAL ×2 (05:54→17:51)
[2019-10-08 07:09] LABS: Anion Gap 3 (5-15); BUN 13 mg/dL (7-18); BUN/Creat Ratio 20.8 RATIO (10-20); Calcium,Total 8.4 mg/dL (8.5-10.1); Chloride 113 mmol/L (98-107); Creatinine, Serum 0.62 mg/dL (0.55-1.02); EST Glomerular Filtration Rate 106 mL/min (>60); Est Glom Filt Rate - Afr Amer 128 mL/min (>60); Estimated Creatinine Clearance 102.05 ml/min; Glucose 103 mg/dL (74-106); Sodium Level 140 mmol/L (136-145)
[2019-10-08] MEDS: Multivitamins,Ther W-Minerals Tablet 1 TABLET PO (08:34)
[2019-10-08] MEDS: Calcium Carb/Vitamin D 1 TABLET Tablet PO ×2 (08:34→17:48)
[2019-10-08] MEDS: Aspirin E.C. 81 MG Tablet PO ×2 (08:34→17:48)
[2019-10-08] MEDS: Cyanocobalamin 500 MCG Tablet 1000 MCG PO (08:34)
[2019-10-08 14:14] VITALS: BP 120/67; PULSE 97; RESP 16; TEMP 37.3; O2SAT 98
[2019-10-08] MEDS: Acetaminophen 500 MG Tablet 1000 MG PO (15:13)
[2019-10-08] MEDS: oxyCODONE 5 MG Tablet PO ×2 (15:13→21:46)
[2019-10-08 21:15] VITALS: PULSE 84; RESP 16; O2SAT 98
[2019-10-09] MEDS: oxyCODONE HCl Cr 10 MG Tablet 20 MG PO ×2 (04:47→17:26)
[2019-10-09] MEDS: ALPRAZolam 0.5 MG Tablet PO ×2 (04:47→17:26)
[2019-10-09] MEDS: Spironolactone 50 MG Tablet 100 MG PO (04:48)
[2019-10-09] MEDS: Senna/Docusate Sodium 1 Tablet 2 TABLET PO ×2 (04:48→17:24)
[2019-10-09] MEDS: Venlafaxine XR 75 MG Capsule PO (04:49)
[2019-10-09] MEDS: Levothyroxine 75 MCG Tablet PO (04:49)
[2019-10-09] MEDS: Furosemide 20 MG Tablet PO (04:49)
[2019-10-09] MEDS: buPROPion (XL) 300 MG TABLET.XL PO (04:49)
[2019-10-09] MEDS: buPROPion (XL) 150 MG TABLET.XL PO (04:49)
[2019-10-09] MEDS: ARIPiprazole 2 MG Tablet PO (04:49)
[2019-10-09] MEDS: Pantoprazole Sodium 20 MG Tablet PO (04:49)
[2019-10-09] MEDS: Fluticasone 0.05% 1 SPRAY NASAL.SRY 2 SPRAY NASAL (04:50)
[2019-10-09] MEDS: Menthol/Lanolin/Calamine/Znox 113 GM Tube 1 APPLIC TOPICAL ×2 (04:54→17:28)
[2019-10-09] MEDS: Nystatin Powder 15gm Bottle 1 APPLIC TOPICAL ×2 (04:55→17:28)
[2019-10-09 05:00] VITALS: BP 118/82; PULSE 82; RESP 18; TEMP 36.6; O2SAT 97
--- NOTE | 2019-10-09 05:01 | NURSING ---
Pt states the morning that she can tell her calcium is still low and would like for Tums to be ordered. She states, hands spasms and numbness are they symptoms she's having at this time. Lab result on 10/07 was 8.4 will leave a note for the doctor. Rn made aware.
[2019-10-09 06:25] LABS: Anion Gap 6 (5-15); BUN 12 mg/dL (7-18); BUN/Creat Ratio 9.8 RATIO (10-20); Calcium,Total 7.3 mg/dL (8.5-10.1); Chloride 98 mmol/L (98-107); Creatinine, Serum 1.22 mg/dL (0.55-1.02); EST Glomerular Filtration Rate 49 mL/min (>60); Est Glom Filt Rate - Afr Amer 59 mL/min (>60); Estimated Creatinine Clearance 51.86 ml/min; Glucose 109 mg/dL (74-106); Potassium 3.7 mmol/L (3.5-5.1); Sodium Level 136 mmol/L (136-145)
[2019-10-09] MEDS: Aspirin E.C. 81 MG Tablet PO ×2 (09:09→17:23)
[2019-10-09] MEDS: Cyanocobalamin 500 MCG Tablet 1000 MCG PO (09:09)
[2019-10-09] MEDS: Multivitamins,Ther W-Minerals Tablet 1 TABLET PO (09:09)
[2019-10-09] MEDS: Calcium Carb/Vitamin D 1 TABLET Tablet PO ×2 (09:09→17:23)
[2019-10-09 11:10] VITALS: PULSE 87; RESP 18; O2SAT 97
[2019-10-09] MEDS: Calcium Carbonate 500 MG Tablet 1000 MG PO ×2 (11:49→17:23)
--- NOTE | 2019-10-09 11:51 | NURSING ---
pt stated she calls her mom and updates her every day.
[2019-10-09] MEDS: oxyCODONE 5 MG Tablet PO (13:36)
--- NOTE | 2019-10-09 14:04 | CHAPLAIN ---
Type of Pastoral Visit _x__ Initial Visit ___ Follow-up Visit ___ On-call Visit ___ General Patient Visit ___ Spiritual Assessment ___ Family Conference ___ Bereavement ___ Rapid Response ___ Code Blue ___ Other (describe below) Pastoral Care Referral From ___ Patient _x__ Family ___ Nurse ___ Physician ___ Factory Worker ___ Meat Cutter Apprentice ___ Other (describe below) Sacrament/Intervention _x__ Active listening ___ Anointing ___ Christianity ___ Bereavement ___ Communion ___ Shara exploration ___ _x__ Life review _x__ Prayer ___ Reconciliation ___ Sacrament of Sick _x__ Supportive presence ___ Wedding ___ Other (describe below) Pastoral Comments patient's mother has new cancer diagnosis and pt is tearful about this; pt aware that she is unable to be helpful to her mother during this time of her own recovery and dealing with those feelings;
[2019-10-09 14:11] VITALS: BP 101/69; PULSE 87; RESP 16; TEMP 36.1; O2SAT 96
[2019-10-09] MEDS: 0.9% Saline Lock 10 ML Syringe IV (18:26)
[2019-10-10] MEDS: Fluticasone 0.05% 1 SPRAY NASAL.SRY 2 SPRAY NASAL (05:20)
[2019-10-10] MEDS: buPROPion (XL) 300 MG TABLET.XL PO (05:21)
[2019-10-10] MEDS: Spironolactone 50 MG Tablet 100 MG PO (05:21)
[2019-10-10] MEDS: Levothyroxine 75 MCG Tablet PO (05:21)
[2019-10-10] MEDS: Furosemide 20 MG Tablet PO (05:21)
[2019-10-10] MEDS: Senna/Docusate Sodium 1 Tablet 2 TABLET PO ×2 (05:21→17:19)
[2019-10-10] MEDS: buPROPion (XL) 150 MG TABLET.XL PO (05:21)
[2019-10-10] MEDS: Pantoprazole Sodium 20 MG Tablet PO (05:21)
[2019-10-10] MEDS: ALPRAZolam 0.5 MG Tablet PO ×2 (05:21→17:20)
[2019-10-10] MEDS: ARIPiprazole 2 MG Tablet PO (05:22)
[2019-10-10] MEDS: Venlafaxine XR 75 MG Capsule PO (05:22)
[2019-10-10] MEDS: oxyCODONE HCl Cr 10 MG Tablet 20 MG PO ×2 (05:23→17:19)
[2019-10-10] MEDS: Nystatin Powder 15gm Bottle 1 APPLIC TOPICAL ×2 (05:25→17:23)
[2019-10-10 05:33] VITALS: BP 111/70; PULSE 87; RESP 16; TEMP 36.6; O2SAT 98
[2019-10-10] MEDS: Menthol/Lanolin/Calamine/Znox 113 GM Tube 1 APPLIC TOPICAL ×2 (05:33→17:24)
[2019-10-10 05:55] LABS: Anion Gap 4 (5-15); BUN 11 mg/dL (7-18); BUN/Creat Ratio 9.5 RATIO (10-20); Chloride 101 mmol/L (98-107); Creatinine, Serum 1.16 mg/dL (0.55-1.02); EST Glomerular Filtration Rate 52 mL/min (>60); Est Glom Filt Rate - Afr Amer 63 mL/min (>60); Estimated Creatinine Clearance 54.54 ml/min; Glucose 94 mg/dL (74-106); Potassium 3.8 mmol/L (3.5-5.1); Sodium Level 139 mmol/L (136-145)
[2019-10-10] MEDS: Calcium Carbonate 500 MG Tablet 1000 MG PO ×3 (09:04→17:19)
[2019-10-10] MEDS: Aspirin E.C. 81 MG Tablet PO ×2 (09:04→17:21)
[2019-10-10] MEDS: Cyanocobalamin 500 MCG Tablet 1000 MCG PO (09:05)
[2019-10-10] MEDS: Multivitamins,Ther W-Minerals Tablet 1 TABLET PO (09:05)
[2019-10-10] MEDS: Calcium Carb/Vitamin D 1 TABLET Tablet PO ×2 (09:06→17:20)
--- NOTE | 2019-10-10 10:28 | NURSING ---
pt stated she will up date her mom.
[2019-10-10 14:07] VITALS: BP 97/63; PULSE 93; RESP 16; TEMP 35.7; O2SAT 93
[2019-10-10] MEDS: oxyCODONE 5 MG Tablet PO (14:26)
[2019-10-10] MEDS: 0.9% Saline Lock 10 ML Syringe IV (15:11)
[2019-10-10 16:42] VITALS: BP 104/69
[2019-10-10 22:00] VITALS: PULSE 84; RESP 18; O2SAT 97
[2019-10-11] MEDS: oxyCODONE 5 MG Tablet PO ×2 (02:34→13:33)
[2019-10-11 05:00] VITALS: BP 124/71; PULSE 77; RESP 16; TEMP 36.7; O2SAT 97
[2019-10-11 05:51] LABS: Absolute Lymphocyte Count 1.56 X10^3/uL (0.83-4.51); Absolute Neutrophil Count 5.8 X10^3/uL (2.0-7.7); Basophil# 0.04 X10^3/uL; Basophil% 0.5 % (0-1); Eosinophil# 0.65 X10^3/uL; Eosinophils% 7.5 % (0-5); Hematocrit 38.6 % (37-47); Hemoglobin 12.5 g/dL (12.0-15.0); Lymphocyte # 1.56 X10^3/ul (4.0); Mean Corp Hgb Conc 32.4 g/dL (32-36); Mean Corpuscular Hgb 28.9 pg (27.0-32.0); Mean Corpuscular Volume 89.1 fL (81-99); Monocyte# 0.56 X10^3/uL; Monocyte% 6.5 % (0-10); NRBC Flagged by Analyzer 0 % (0-5); Neutrophil # 5.82 X10^3/uL (2.7-7.7); Platelet Count 543 K/mm3 (150-450); RBC Distribution Width CV 14.4 % (11.6-14.6); Red Blood Count 4.33 M/mm3 (4.2-5.4); White Blood Count 8.7 K/mm3 (4.4-11.0)
[2019-10-11 06:10] LABS: Anion Gap 4 (5-15); BUN 11 mg/dL (7-18); BUN/Creat Ratio 9.1 RATIO (10-20); Chloride 100 mmol/L (98-107); Creatinine, Serum 1.21 mg/dL (0.55-1.02); EST Glomerular Filtration Rate 49 mL/min (>60); Est Glom Filt Rate - Afr Amer 60 mL/min (>60); Estimated Creatinine Clearance 52.29 ml/min; Glucose 85 mg/dL (74-106); Potassium 3.5 mmol/L (3.5-5.1); Sodium Level 138 mmol/L (136-145)
[2019-10-11] MEDS: oxyCODONE HCl Cr 10 MG Tablet 20 MG PO ×2 (06:29→17:20)
[2019-10-11] MEDS: ALPRAZolam 0.5 MG Tablet PO ×2 (06:29→17:19)
[2019-10-11] MEDS: buPROPion (XL) 150 MG TABLET.XL PO (06:33)
[2019-10-11] MEDS: Pantoprazole Sodium 20 MG Tablet PO (06:33)
[2019-10-11] MEDS: Senna/Docusate Sodium 1 Tablet 2 TABLET PO ×2 (06:33→17:15)
[2019-10-11] MEDS: Furosemide 20 MG Tablet PO (06:33)
[2019-10-11] MEDS: ARIPiprazole 2 MG Tablet PO (06:33)
[2019-10-11] MEDS: Venlafaxine XR 75 MG Capsule PO (06:33)
[2019-10-11] MEDS: Spironolactone 50 MG Tablet 100 MG PO (06:33)
[2019-10-11] MEDS: buPROPion (XL) 300 MG TABLET.XL PO (06:33)
[2019-10-11] MEDS: Levothyroxine 75 MCG Tablet PO (06:33)
[2019-10-11] MEDS: Nystatin Powder 15gm Bottle 1 APPLIC TOPICAL ×2 (06:35→17:16)
[2019-10-11] MEDS: 0.9% Saline Lock 10 ML Syringe IV (06:36)
[2019-10-11] MEDS: Fluticasone 0.05% 1 SPRAY NASAL.SRY 2 SPRAY NASAL (06:45)
[2019-10-11] MEDS: Menthol/Lanolin/Calamine/Znox 113 GM Tube 1 APPLIC TOPICAL ×2 (06:46→17:17)
[2019-10-11] MEDS: Calcium Carbonate 500 MG Tablet 1000 MG PO ×3 (07:50→17:13)
[2019-10-11] MEDS: Multivitamins,Ther W-Minerals Tablet 1 TABLET PO (07:51)
[2019-10-11] MEDS: Aspirin E.C. 81 MG Tablet PO ×2 (07:51→17:14)
[2019-10-11] MEDS: Cyanocobalamin 500 MCG Tablet 1000 MCG PO (07:51)
[2019-10-11] MEDS: Calcium Carb/Vitamin D 1 TABLET Tablet PO ×2 (07:52→17:13)
[2019-10-11] MEDS: Tuberculin,Purif.prot.deriv. 50 TU/ML Vial 5 ML ID (10:59)
--- NOTE | 2019-10-11 12:11 | CASEMGMT ---
Social Work IDT met with patient for care plan meeting. Discussed patient's progress in therapy. Pt is SBA for bed mobility, SBA for sit to stands and transfers with FWW, SBA to ambulate 100 ft with FWW in room. Pt demonstrates increased strength in right knee, but still has limited knee flexion. Pt is using 1 and 2 lbs wts on UE but limited shoulder motion. Pt is set up for grooming either sitting or standing at the sink with FWW for stability. Pt is set up for UE ADLS while seated, XGA for LE ADLs with FWW, SBA for toileting with high risk and grab bar or FWW. Pt had lost weight which is desirable, on a cardiac low sodium diet, and taking Tums for calcium. Pt is out of room isolation 10/16. Explained [employer] insurance with NRD 10/10 and continued stay is not guaranteed. Discussed DC plans. Pt i agreeable to DC home alone with C. Pt still agreeable for f/u appt with Lucille at [facility]. Provided transportation resources, but family and friends can assist. Will continue to follow. Serina Long, LICENSED CHEMICAL SPRAY TECHNICIAN STONE RIGGER
[2019-10-11 13:29] VITALS: BP 016/63; PULSE 97; RESP 17; TEMP 36.6; O2SAT 97
--- NOTE | 2019-10-11 14:15 | CASEMGMT ---
Social Work PAM met with pt in room and informed that insurance has issued a letter on Non coverage with last covered day 10/13 and d/c 10/14. Pt expresses understanding and wishes to return home on 10/14. Pt is agreeable to home health services and has no preference on company used. Pt stating that she has all needed DME and that her sister will be transporting her home with waste picker time of 1100. Pt requesting appointment be made with 180 for followup and PAM will assist with this. PAM discussed Living will and HCPOA with pt and assisted in completing. Original given to pt and copy placed on pt chart. Plan: D/C home 10/15/19 with home health care PT/OT/RN and follow up at [facility] TODD Martinez
[2019-10-11 21:05] VITALS: PULSE 78; RESP 16; O2SAT 98
--- NOTE | 2019-10-11 21:52 | DCINST_ITS ---
- Discharge Diagnoses Current Active Problems: Current Active and Chronic Problems (Last Updated 10/06/18 @ 13:40 by Laury Fitzgerald) Debility (Acute) Osteoarthritis of right knee (Chronic) Sleep apnea (Chronic) Kidney stone (Chronic) Chronic kidney disease, stage 3 (Chronic) Anemia (Chronic) Irritable bowel syndrome (Chronic) GERD (gastroesophageal reflux disease) (Chronic) Post traumatic stress disorder (Chronic) Restless leg syndrome (Chronic) Hypothyroidism (Chronic) Depression (Chronic) Vitamin D deficiency (Chronic) ADHD (Chronic) Allergic rhinitis (Chronic) Edema (Chronic) Anxiety (Chronic) Insomnia (Chronic) 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) Migraine (Chronic) Hypokalemia (Chronic) You will use the following diet at home:: No restrictions, Regular Your food should be the consistency of: Regular Your liquids should be the consistency of: Regular/Thin Discharge Activity: Return to Normal Activity, May Shower, Use Walker Weight Bearing Status: Weight bearing as tolerated Call your doctor if you observe: Fever of 101 or Higher, Inability to urinate, Inability to have a bowel movement, Shortness of breath, Chest pain, Uncontrolled pain Allergies/Adverse Reactions: Allergies propranolol Allergy (Mild, Verified 12/18/18 10:20) unknow Iodinated Contrast Media [DYEE] Allergy (Verified 12/18/18 10:20) Rash iron Adverse Reaction (Verified 12/18/18 10:20) Other ABD PAIN morphine Adverse Reaction (Verified 12/18/18 10:20) Rash ondansetron [From Zofran] Adverse Reaction (Verified 12/18/18 10:20) Other headache Medications to take at Discharge Dextroamphetamine/Amphetamine [Adderall 20 mg Tablet] 40 mg PO BID 03/06/16 Venlafaxine XR [Effexor Xr] 75 mg PO DAILY 03/06/16 buPROPion XL [Wellbutrin Xl] 150 mg PO DAILY 03/06/16 buPROPion XL [Wellbutrin Xl] 300 mg PO DAILY 03/06/16 Cholecalciferol (Vitamin D3) [Vitamin D3] 2,000 unit PO DAILY 09/16/17 Cyanocobalamin [Vitamin B12] 1,000 mcg PO DAILY@0800 09/16/17 Omeprazole [Prilosec] 20 mg PO DAILY 09/16/17 Zolpidem Tartrate [Ambien] 5 mg PO QHS PRN PRN 10/03/17 Calcitriol [Rocaltrol] 0.75 mcg PO DAILY 10/12/17 Cetirizine HCl [Allergy Relief] 10 mg PO DAILY 10/12/17 Magnesium 400 mg PO DAILY 10/12/17 Spironolactone [Aldactone] 100 mg PO DAILY 10/12/17 Aripiprazole 2 mg PO DAILY 02/22/18 ALPRAZolam [Xanax] 0.5 mg PO BID 07/16/18 cranberry 400 mg capsule 400 mg PO DAILY 10/06/18 diclofenac sodium 50 mg tablet,delayed release 50 mg PO BID 10/06/18 fluticasone propionate 50 mcg/actuation nasal spray,suspension 2 spray IN TRANASAL DAILY 10/06/18 gabapentin 100 mg capsule 100 mg PO DAILY 10/06/18 Aspirin [Adult Low Dose Aspirin EC] 81 mg PO BID 10/03/19 Calcium Citrate/Vitamin D3 [Calcium Cit 315-Vit D3 250 Tab] 2 tab PO DAILY 10/03/19 Furosemide [Lasix] 20 mg PO DAILY 10/03/19 Gluc Guido/Chondro Guido A/Vit C/Mn [Glucosamine Chondroitin Tab] 1 tab PO DAILY 10/03/19 Levothyroxine Sodium [Synthroid] 75 mcg PO DAILY 10/03/19 Multivit with Calcium,Iron,Min [Multiple Vitamins For Women] 1 ea PO DAILY 10/03/19 Oxycodone CR [Oxycontin] 20 mg PO Q12H 10/03/19 Oxycodone HCl/Acetaminophen [Percocet 5-325] 1 tab PO Q6H PRN PRN 10/03/19 cycloBENZAPRine HCl [Flexeril] 10 mg PO TID PRN PRN 10/03/19 Acetaminophen [Tylenol] 1,000 mg PO Q6H PRN tablet 10/11/19 Calcium Carbonate [Tums] 1,000 mg PO TIDCM tablet 10/11/19 Menthol/Lanolin/Calamine/Znox [Calmoseptine Ointment] 1 applic TOPICAL BID tube 10/11/19 Nystatin Powder [Mycostatin Powder] 1 applic TOPICAL BID bottle 10/11/19 Potassium Chloride [K-Dur] 20 meq PO DAILYCM #30 tab 10/11/19 buPROPion XL [Wellbutrin Xl] 150 mg PO DAILY tablet.xl 10/11/19 The following prescriptions were given: Potassium Chloride [K-Dur] 20 meq PO DAILYCM #30 tab Transmission Status: Pending to [id number] Primary Care Physician: Bret Salomon MD [Primary Care Provider] - Please follow up with your Primary Care Physician in: 1 week. Test Results: Test results from this visit will be discussed in further detail at your follow- up appointment, if applicable. Please Follow Up With: [facility] When: 1 week. Proposed Discharge Date: 10/15/19
--- NOTE | 2019-10-11 21:53 | PCM.DC.SUM ---
Discharge Date and Diagnosis - Problem List Patient Problems: Active and Suspected Problems (Last Updated 10/06/18 @ 13:40 by Laury Fitzgerald) Debility (Acute) Date of Admission: 10/03/19 Date of Discharge: 10/15/19 - Primary Discharge Diagnosis Acute Problems: Active Problems (Last Updated 10/06/18 @ 13:40 by Laury Fitzgerald) Debility (Acute) - Secondary Discharge Diagnosis Chronic Problems: Chronic Problems (Last Updated 10/06/18 @ 13:40 by Laury Fitzgerald) Osteoarthritis of right knee (Chronic) Sleep apnea (Chronic) Kidney stone (Chronic) Chronic kidney disease, stage 3 (Chronic) Anemia (Chronic) Irritable bowel syndrome (Chronic) GERD (gastroesophageal reflux disease) (Chronic) Post traumatic stress disorder (Chronic) Restless leg syndrome (Chronic) Hypothyroidism (Chronic) Depression (Chronic) Vitamin D deficiency (Chronic) ADHD (Chronic) Allergic rhinitis (Chronic) Edema (Chronic) Anxiety (Chronic) Insomnia (Chronic) 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) Migraine (Chronic) Hypokalemia (Chronic) Hospital Course and Treatment Imaging Results: 10/04/19 08:25 Diet: Cardiac/Low Cholesterol Food consistency:: Regular Liquid Consistency:: Regular/Thin Is pt able to select menu?: Yes Diet Comments: LOW SODIUM Clinical Impression(s) from Imaging Studies Chest X-Ray 10/05/19 17:25 IMPRESSION: No acute cardiopulmonary pathology Electronically Signed: Syed Jones MD at 18:57 EDT , Service support , Labs (Last 48 Hours) 10/10/19 10/11/19 10/11/19 05:15 05:10 05:10 WBC 8.7 RBC 4.33 Hgb 12.5 Hct 38.6 MCV 89.1 MCH 28.9 MCHC 32.4 RDW Std Deviation 46.0 H RDW Coeff of Teena 14.4 Plt Count 543 H MPV 9.0 Immature Gran % (Auto) 0.500 Neut % (Auto) 67.0 Lymph % (Auto) 18.0 L Callahan % (Auto) 6.5 Eos % (Auto) 7.5 H Baso % (Auto) 0.5 Absolute Neuts (auto) 5.8 Absolute Lymphs (auto) 1.56 Nucleated RBC % 0 Sodium 139 138 Potassium 3.8 3.5 Chloride 101 100 Carbon Dioxide 34.0 H 34.0 H Anion Gap 4 L 4 L BUN 11 11 Creatinine 1.16 H 1.21 H Estim Creat Clear Calc 54.54 52.29 Est GFR (MDRD) Af Amer 63 60 Est GFR (MDRD) Non-Af 52 L 49 L BUN/Creatinine Ratio 9.5 L 9.1 L Glucose 94 85 Calcium 8.0 L 8.0 L Operations: None Procedures: None Summary of Care Provided: The patient is a 54 year old Female with below past medical history hospitalized for right total knee replacement 09/29/[address] Reyes, admitted to TCU with debility, here for rehabilitation, strengthening, prior to discharge home alone. Resident required IV calcium secondary to MEN I, her calcium normalized. Will discharge on potassium for hypokalemia, can monitor, discontinue as outpatient. Discharge home alone, Home Health Care PT/OT/RN, follow up with 180. Patient Problems: Active and Suspected Problems (Last Updated 10/06/18 @ 13:40 by Laury Fitzgerald) Debility (Acute) - Physical Exam Vitals/I&O's: Vital Signs Temp Pulse Resp BP Pulse Ox 97.9 F 97 17 016/63 97 10/11/19 13:29 10/11/19 13:29 10/11/19 13:29 10/11/19 13:29 10/11/19 13:29 Oxygen Delivery Method Room Air Weight: 134.944 kg Body Mass Index (BMI) 48.4 Intake and Output for Last 24 Hours 10/09/19 10/10/19 10/11/19 23:59 23:59 23:59 Intake Total 1080 / 1080 600 / 600 700 / 700 Balance 1080 / 1080 600 / 600 700 / 700 Laboratory Results 10/11/19 05:10: WBC 8.7, RBC 4.33, Hgb 12.5, Hct 38.6, MCV 89.1, MCH 28.9, MCHC 32.4, RDW Std Deviation 46.0 H, RDW Coeff of Teena 14.4, Plt Count 543 H, MPV 9.0, Immature Gran % (Auto) 0.500, Neut % (Auto) 67.0, Lymph % (Auto) 18.0 L, Callahan % (Auto) 6.5, Eos % (Auto) 7.5 H, Baso % (Auto) 0.5, Absolute Neuts (auto) 5.8, Absolute Lymphs (auto) 1.56, Nucleated RBC % 0 10/11/19 05:10: Sodium 138, Potassium 3.5, Chloride 100, Carbon Dioxide 34.0 H, Anion Gap 4 L, BUN 11, Creatinine 1.21 H, Estim Creat Clear Calc 52.29, Est GFR (MDRD) Af Amer 60, Est GFR (MDRD) Non-Af 49 L, BUN/Creatinine Ratio 9.1 L, Glucose 85, Calcium 8.0 L Current Medications Acetaminophen (Tylenol) 1,000 mg PO Q6H PRN PRN Reason: Pain Score 1-5/10 Last Admin: 10/08/19 15:13 Dose: 1,000 mg Documented by: Alprazolam (Xanax) 0.5 mg PO BID [facility] Last Admin: 10/11/19 17:19 Dose: 0.5 mg Documented by: Aripiprazole (Abilify) 2 mg PO DAILY [facility] Last Admin: 10/11/19 06:33 Dose: 2 mg Documented by: [facility]cotrin) [facility] Last Admin: 10/11/19 17:14 Dose: 81 mg Documented by: Bisacodyl (Dulcolax) 10 mg RECTAL DAILY PRN PRN Reason: Constipation Bupropion HCl (Wellbutrin Xl) 300 mg PO DAILY [facility] Last Admin: 10/11/19 06:33 Dose: 300 mg Documented by: Bupropion HCl (Wellbutrin Xl) 150 mg PO DAILY [facility] Last Admin: 10/11/19 06:33 Dose: 150 mg Documented by: Calamine/Phenol (Calmoseptine Ointment) 1 applic TOPICAL BID [facility]; Protocol Last Admin: 10/11/19 17:17 Dose: 1 applicatio Documented by: Calcium Carbonate (Tums) 1,000 mg PO TIDCM [facility] Last Admin: 10/11/19 17:13 Dose: 1,000 mg Documented by: Calcium/Vitamin D (Os-Sj 500mg + D) 1 tablet PO BIDCM [facility] Last Admin: 10/11/19 17:13 Dose: 1 tablet Documented by: Cholecalciferol (Vitamin D (25mcg)) 2,000 [facility] Last Admin: 10/11/19 07:52 Dose: 2,000 unit Documented by: Cyanocobalamin (Vitamin B12) 1,000 mcg PO DAILY@0800 [facility] Last Admin: 10/11/19 07:51 Dose: 1,000 mcg Documented by: Cyclobenzaprine HCl (Flexeril) 10 mg PO TID PRN PRN PRN Reason: Muscle spasms Last Admin: 10/04/19 15:12 Dose: 10 mg Documented by: Fluticasone Propionate (Flonase Nasal [place]) 2 spray NASAL DAILY [facility] Last Admin: 10/11/19 06:45 Dose: 2 sprays Documented by: Furosemide (Lasix) 20 mg PO DAILY [facility] Last Admin: 10/11/19 06:33 Dose: 20 mg Documented by: Levothyroxine Sodium (Synthroid) 75 mcg PO DAILY [facility] Last Admin: 10/11/19 06:33 Dose: 75 mcg Documented by: Multivitamins/Minerals (Multivitamin With Minerals (Bkc)) 1 tablet PO DAILY@0800 [facility] Last Admin: 10/11/19 07:51 Dose: 1 tablet Documented by: Nystatin (Mycostatin Powder) 1 applic TOPICAL BID [facility]; Protocol Last Admin: 10/11/19 17:16 Dose: 1 applicatio Documented by: Oxycodone HCl (Oxycontin) 20 mg PO Q12H [facility] Stop: 10/13/19 18:01 Last Admin: 10/11/19 17:20 Dose: 20 mg Documented by: Oxycodone HCl (Oxyir) 5 mg PO Q4H PRN PRN PRN Reason: Pain Score 6-10/10 Last Admin: 10/11/19 13:33 Dose: 5 mg Documented by: Pantoprazole Sodium (Protonix) 20 mg PO DAILY [facility] Last Admin: 10/11/19 06:33 Dose: 20 mg Documented by: Polyethylene Glycol (Miralax) 17 gm PO BID [facility] Last Admin: 10/11/19 17:15 Dose: Not Given Documented by: Potassium Chloride (K-Dur) 20 meq [facility] Last Admin: 10/11/19 07:51 Dose: 20 meq Documented by: Senna/Docusate Sodium (Senokot-S, Marlene-Colace) 2 tablet PO BID [facility] Last Admin: 10/11/19 17:15 Dose: 2 tablet Documented by: Spironolactone (Aldactone) 100 mg PO DAILY [facility] Last Admin: 10/11/19 06:33 Dose: 100 mg Documented by: Venlafaxine HCl (Effexor Xr) 75 mg PO DAILY [facility] Last Admin: 10/11/19 06:33 Dose: 75 mg Documented by: Zolpidem Tartrate (Ambien (Generic)) 5 mg PO QHS PRN PRN PRN Reason: INSOMNIA Discharge Diet: No Restrictions Discharge Activity: Return to Normal Activity, May Shower, Use Walker Weight Bearing Status: Weight bearing as tolerated Call your doctor if you observe: Fever of 101 or Higher, Inability to urinate, Inability to have a bowel movement, Shortness of breath, Chest pain, Uncontrolled pain Home Medications: Medications to take at Discharge Dextroamphetamine/Amphetamine [Adderall 20 mg Tablet] 40 mg PO BID 03/06/16 Venlafaxine XR [Effexor Xr] 75 mg PO DAILY 03/06/16 buPROPion XL [Wellbutrin Xl] 150 mg PO DAILY 03/06/16 buPROPion XL [Wellbutrin Xl] 300 mg PO DAILY 03/06/16 Cholecalciferol (Vitamin D3) [Vitamin D3] 2,000 unit PO DAILY 09/16/17 Cyanocobalamin [Vitamin B12] 1,000 mcg PO DAILY@0800 09/16/17 Omeprazole [Prilosec] 20 mg PO DAILY 09/16/17 Zolpidem Tartrate [Ambien] 5 mg PO QHS PRN PRN 10/03/17 Calcitriol [Rocaltrol] 0.75 mcg PO DAILY 10/12/17 Cetirizine HCl [Allergy Relief] 10 mg PO DAILY 10/12/17 Magnesium 400 mg PO DAILY 10/12/17 Spironolactone [Aldactone] 100 mg PO DAILY 10/12/17 Aripiprazole 2 mg PO DAILY 02/22/18 ALPRAZolam [Xanax] 0.5 mg PO BID 07/16/18 cranberry 400 mg capsule 400 mg PO DAILY 10/06/18 diclofenac sodium 50 mg tablet,delayed release 50 mg PO BID 10/06/18 fluticasone propionate 50 mcg/actuation nasal spray,suspension 2 spray INTRANASAL DAILY 10/06/18 gabapentin 100 mg capsule 100 mg PO DAILY 10/06/18 Aspirin [Adult Low Dose Aspirin EC] 81 mg PO BID 10/03/19 Calcium Citrate/Vitamin D3 [Calcium Cit 315-Vit D3 250 Tab] 2 tab PO DAILY 10/03/19 Furosemide [Lasix] 20 mg PO DAILY 10/03/19 Gluc Guido/Chondro Guido A/Vit C/Mn [Glucosamine Chondroitin Tab] 1 tab PO DAILY 10/03/19 Levothyroxine Sodium [Synthroid] 75 mcg PO DAILY 10/03/19 Multivit with Calcium,Iron,Min [Multiple Vitamins For Women] 1 ea PO DAILY 10/03/19 Oxycodone CR [Oxycontin] 20 mg PO Q12H 10/03/19 Oxycodone HCl/Acetaminophen [Percocet 5-325] 1 tab PO Q6H PRN PRN 10/03/19 cycloBENZAPRine HCl [Flexeril] 10 mg PO TID PRN PRN 10/03/19 Acetaminophen [Tylenol] 1,000 mg PO Q6H PRN tablet 10/11/19 Calcium Carbonate [Tums] 1,000 mg PO TIDCM tablet 10/11/19 Menthol/Lanolin/Calamine/Znox [Calmoseptine Ointment] 1 applic TOPICAL BID tube 10/11/19 Nystatin Powder [Mycostatin Powder] 1 applic TOPICAL BID bottle 10/11/19 Potassium Chloride [K-Dur] 20 meq PO DAILYCM #30 tab 10/11/19 buPROPion XL [Wellbutrin Xl] 150 mg PO DAILY tablet.xl 10/11/19 Following Prescriptions Were Given to Patient: Potassium Chloride [K-Dur] 20 meq PO DAILYCM #30 tab Transmission Status: Pending to [facility] Primary Care Physician: Bret Salomon MD [Primary Care Provider] - Please follow up with your Primary Care Physician in: 1 week. Please Follow Up With: [facility] When: 1 week. Disposition: Home with Home Health Minutes spent on discharge:: 35 Patient Condition:: Stable Medical Necessity - Tobacco Use Smoking Status: Never smoker Tobacco Use: Non-smoker Meaningful Use Info Meaningful Use Diagnoses (Choose all that apply): None applicable
[2019-10-12] MEDS: oxyCODONE 5 MG Tablet PO ×2 (02:50→14:06)
[2019-10-12 05:00] VITALS: BP 112/79; PULSE 84; RESP 16; TEMP 36.6; O2SAT 99
[2019-10-12] MEDS: ALPRAZolam 0.5 MG Tablet PO ×2 (06:17→17:04)
[2019-10-12] MEDS: oxyCODONE HCl Cr 10 MG Tablet 20 MG PO ×2 (06:17→17:04)
[2019-10-12] MEDS: Levothyroxine 75 MCG Tablet PO (06:18)
[2019-10-12] MEDS: Pantoprazole Sodium 20 MG Tablet PO (06:19)
[2019-10-12] MEDS: buPROPion (XL) 300 MG TABLET.XL PO (06:19)
[2019-10-12] MEDS: Senna/Docusate Sodium 1 Tablet 2 TABLET PO ×2 (06:19→17:07)
[2019-10-12] MEDS: buPROPion (XL) 150 MG TABLET.XL PO (06:19)
[2019-10-12] MEDS: Venlafaxine XR 75 MG Capsule PO (06:20)
[2019-10-12] MEDS: ARIPiprazole 2 MG Tablet PO (06:20)
[2019-10-12] MEDS: Menthol/Lanolin/Calamine/Znox 113 GM Tube 1 APPLIC TOPICAL ×2 (06:20→17:05)
[2019-10-12] MEDS: Spironolactone 50 MG Tablet 100 MG PO (06:20)
[2019-10-12] MEDS: Furosemide 20 MG Tablet PO (06:20)
[2019-10-12] MEDS: Fluticasone 0.05% 1 SPRAY NASAL.SRY 2 SPRAY NASAL (06:21)
[2019-10-12] MEDS: Nystatin Powder 15gm Bottle 1 APPLIC TOPICAL ×2 (06:27→17:05)
[2019-10-12] MEDS: Aspirin E.C. 81 MG Tablet PO ×2 (07:27→17:06)
[2019-10-12] MEDS: Calcium Carbonate 500 MG Tablet 1000 MG PO ×3 (07:27→17:06)
[2019-10-12] MEDS: Multivitamins,Ther W-Minerals Tablet 1 TABLET PO (07:28)
[2019-10-12] MEDS: Calcium Carb/Vitamin D 1 TABLET Tablet PO ×2 (07:28→17:06)
[2019-10-12] MEDS: Cyanocobalamin 500 MCG Tablet 1000 MCG PO (07:28)
[2019-10-12 08:50] VITALS: PULSE 92; RESP 16; O2SAT 94
--- NOTE | 2019-10-12 10:27 | CASEMGMT ---
Social Work Pt [facility] [place]. Referral made and can accept for PT/OT/SN. No DME needs. 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
--- NOTE | 2019-10-12 10:56 | MDS.RN ---
Information for the mds was obtained from review of the clinical record, interview of resident, staff, and direct observation of resident's care .
[2019-10-12 13:46] VITALS: BP 121/72; PULSE 92; RESP 16; TEMP 36.6; O2SAT 96
[2019-10-13] MEDS: oxyCODONE 5 MG Tablet PO ×3 (03:01→20:35)
[2019-10-13] MEDS: cycloBENZAPRine HCl 10 MG Tablet PO (03:03)
[2019-10-13 03:09] VITALS: BP 123/68; PULSE 85; RESP 16; TEMP 36.2; O2SAT 97
[2019-10-13] MEDS: buPROPion (XL) 150 MG TABLET.XL PO (05:13)
[2019-10-13] MEDS: oxyCODONE HCl Cr 10 MG Tablet 20 MG PO ×2 (05:13→17:14)
[2019-10-13] MEDS: Venlafaxine XR 75 MG Capsule PO (05:14)
[2019-10-13] MEDS: Levothyroxine 75 MCG Tablet PO (05:14)
[2019-10-13] MEDS: ARIPiprazole 2 MG Tablet PO (05:14)
[2019-10-13] MEDS: Furosemide 20 MG Tablet PO (05:14)
[2019-10-13] MEDS: Pantoprazole Sodium 20 MG Tablet PO (05:14)
[2019-10-13] MEDS: ALPRAZolam 0.5 MG Tablet PO ×2 (05:14→17:14)
[2019-10-13] MEDS: Senna/Docusate Sodium 1 Tablet 2 TABLET PO ×2 (05:14→17:16)
[2019-10-13] MEDS: Spironolactone 50 MG Tablet 100 MG PO (05:14)
[2019-10-13] MEDS: Fluticasone 0.05% 1 SPRAY NASAL.SRY 2 SPRAY NASAL (05:16)
[2019-10-13] MEDS: Menthol/Lanolin/Calamine/Znox 113 GM Tube 1 APPLIC TOPICAL ×2 (05:17→17:13)
[2019-10-13] MEDS: Nystatin Powder 15gm Bottle 1 APPLIC TOPICAL ×2 (05:17→17:14)
[2019-10-13] MEDS: buPROPion (XL) 300 MG TABLET.XL PO (05:20)
[2019-10-13] MEDS: Calcium Carbonate 500 MG Tablet 1000 MG PO ×3 (08:10→17:16)
[2019-10-13] MEDS: Aspirin E.C. 81 MG Tablet PO ×2 (08:13→17:15)
[2019-10-13] MEDS: Cyanocobalamin 500 MCG Tablet 1000 MCG PO (08:14)
[2019-10-13] MEDS: Multivitamins,Ther W-Minerals Tablet 1 TABLET PO (08:14)
[2019-10-13] MEDS: Calcium Carb/Vitamin D 1 TABLET Tablet PO ×2 (08:14→17:16)
--- NOTE | 2019-10-13 09:00 | RAD_ITS ---
STUDY: X-RAY - RIGHT KNEE REASON FOR EXAM: Female, 54 years old. INCREASING RIGHT LOWER EXTREMITY PAIN, TOTAL KNEE REPLACEMENT TECHNIQUE: 3 view(s) of the knee. COMPARISON: Comparison is made with prior examination 12/18/2018. FINDINGS: Normal visualized distal femur. Normal visualized proximal tibia and fibula. Normal proximal tibiofibular articulation. The patient is status post total knee replacement. There is good alignment. Soft tissue swelling. Small joint effusion. RAD/Knee 3 Views IMPRESSION: Status post total knee replacement. There is good alignment. Soft tissue swelling. Small joint effusion. Electronically Signed: Nick Avery, at 11:08 EDT , Service support ,
[2019-10-13 13:51] VITALS: BP 110/69; PULSE 76; RESP 16; TEMP 36.4; O2SAT 99
[2019-10-14] MEDS: oxyCODONE 5 MG Tablet PO ×4 (01:33→20:06)
[2019-10-14] MEDS: cycloBENZAPRine HCl 10 MG Tablet PO (02:07)
[2019-10-14 05:00] VITALS: BP 107/73; PULSE 75; RESP 18; TEMP 36.6; O2SAT 95
[2019-10-14] MEDS: Acetaminophen 500 MG Tablet 1000 MG PO (05:04)
[2019-10-14] MEDS: ALPRAZolam 0.5 MG Tablet PO ×2 (05:05→17:18)
[2019-10-14] MEDS: Senna/Docusate Sodium 1 Tablet 2 TABLET PO ×2 (05:06→17:16)
[2019-10-14] MEDS: Spironolactone 50 MG Tablet 100 MG PO (05:06)
[2019-10-14] MEDS: Venlafaxine XR 75 MG Capsule PO (05:06)
[2019-10-14] MEDS: Pantoprazole Sodium 20 MG Tablet PO (05:06)
[2019-10-14] MEDS: buPROPion (XL) 300 MG TABLET.XL PO (05:06)
[2019-10-14] MEDS: buPROPion (XL) 150 MG TABLET.XL PO (05:06)
[2019-10-14] MEDS: Levothyroxine 75 MCG Tablet PO (05:06)
[2019-10-14] MEDS: Furosemide 20 MG Tablet PO (05:06)
[2019-10-14] MEDS: ARIPiprazole 2 MG Tablet PO (05:06)
[2019-10-14] MEDS: Fluticasone 0.05% 1 SPRAY NASAL.SRY 2 SPRAY NASAL (05:08)
[2019-10-14] MEDS: Menthol/Lanolin/Calamine/Znox 113 GM Tube 1 APPLIC TOPICAL (05:08)
[2019-10-14] MEDS: Nystatin Powder 15gm Bottle 1 APPLIC TOPICAL ×2 (05:09→17:16)
[2019-10-14] MEDS: Calcium Carb/Vitamin D 1 TABLET Tablet PO ×2 (08:19→17:15)
[2019-10-14] MEDS: Aspirin E.C. 81 MG Tablet PO ×2 (08:19→17:15)
[2019-10-14] MEDS: Calcium Carbonate 500 MG Tablet 1000 MG PO ×3 (08:19→17:15)
[2019-10-14] MEDS: Multivitamins,Ther W-Minerals Tablet 1 TABLET PO (08:19)
[2019-10-14] MEDS: Cyanocobalamin 500 MCG Tablet 1000 MCG PO (08:20)
[2019-10-14 10:10] VITALS: PULSE 88; RESP 18; O2SAT 95
--- NOTE | 2019-10-14 11:57 | NURSING ---
pt stated this nurse did not need to up date family
[2019-10-14 14:13] VITALS: BP 108/64; PULSE 90; RESP 14; TEMP 36.4; O2SAT 96
[2019-10-15] MEDS: oxyCODONE 5 MG Tablet PO ×3 (01:05→10:29)
[2019-10-15 05:00] VITALS: BP 110/66; PULSE 77; RESP 18; TEMP 36.6; O2SAT 98
[2019-10-15] MEDS: ALPRAZolam 0.5 MG Tablet PO (06:10)
[2019-10-15] MEDS: Spironolactone 50 MG Tablet 100 MG PO (06:11)
[2019-10-15] MEDS: ARIPiprazole 2 MG Tablet PO (06:11)
[2019-10-15] MEDS: Fluticasone 0.05% 1 SPRAY NASAL.SRY 2 SPRAY NASAL (06:11)
[2019-10-15] MEDS: buPROPion (XL) 300 MG TABLET.XL PO (06:11)
[2019-10-15] MEDS: Senna/Docusate Sodium 1 Tablet 2 TABLET PO (06:12)
[2019-10-15] MEDS: Furosemide 20 MG Tablet PO (06:12)
[2019-10-15] MEDS: Pantoprazole Sodium 20 MG Tablet PO (06:12)
[2019-10-15] MEDS: Menthol/Lanolin/Calamine/Znox 113 GM Tube 1 APPLIC TOPICAL (06:12)
[2019-10-15] MEDS: Nystatin Powder 15gm Bottle 1 APPLIC TOPICAL (06:12)
[2019-10-15] MEDS: buPROPion (XL) 150 MG TABLET.XL PO (06:12)
[2019-10-15] MEDS: Venlafaxine XR 75 MG Capsule PO (06:12)
[2019-10-15] MEDS: Levothyroxine 75 MCG Tablet PO (06:12)
[2019-10-15] MEDS: Calcium Carbonate 500 MG Tablet 1000 MG PO (08:20)
[2019-10-15] MEDS: Calcium Carb/Vitamin D 1 TABLET Tablet PO (08:20)
[2019-10-15] MEDS: Aspirin E.C. 81 MG Tablet PO (08:20)
[2019-10-15] MEDS: Multivitamins,Ther W-Minerals Tablet 1 TABLET PO (08:20)
[2019-10-15] MEDS: Cyanocobalamin 500 MCG Tablet 1000 MCG PO (08:21)
[2019-10-15 09:10] VITALS: PULSE 94; RESP 18; O2SAT 96
--- NOTE | 2019-10-15 09:53 | NURSING ---
dischargeinst given to pt. pt declined calling family with inst.
[2019-10-15 09:55] VITALS: BP 123/78; PULSE 94; RESP 18; TEMP 37.1; O2SAT 96
== END 2019-10-15 11:18 | disposition home health service (06) | DRG 561 ==
PROVIDERS: Admitting Provider Family Medicine Geriatric Medicine; PCP Internal Medicine; Referring Provider Family Medicine Geriatric Medicine; Visit Provider Family Medicine Geriatric Medicine
DX: Z47.1 Aftercare following joint replacement surgery (principal); Z96.651 Presence of right artificial knee joint; G47.30 Sleep apnea, unspecified; N18.3 Chronic kidney disease, stage 3 (moderate); K21.9 Gastro-esophageal reflux disease without esophagitis; K58.9 Irritable bowel syndrome, unspecified; G25.81 Restless legs syndrome; E03.9 Hypothyroidism, unspecified; F32.9 Major depressive disorder, single episode, unspecified; E31.21 Multiple endocrine neoplasia [MEN] type I; F43.12 Post-traumatic stress disorder, chronic; F90.9 Attention-deficit hyperactivity disorder, unspecified type; Z98.84 Bariatric surgery status; E83.51 Hypocalcemia
CPT/HCPCS: 36415; 71046; 73562; 80048; 85025; 87635; 94799; 97110; 97116; 97162; 97166; 97530; 97535; 97802; J7050; A4216; J0610; U0003

== ENCOUNTER 2019-12-06 12:24 | Emergency (ER) | payer MEDICARE, MEDICAID, SELFPAY ==
[2019-12-06 12:26] VITALS: BP 132/90; PULSE 92; RESP 17; TEMP 36.1; O2SAT 100; BMI 46.6
--- NOTE | 2019-12-06 12:39 | EKG12_ITS ---
Test Reason : ABN LABS Blood Pressure : / mmHG Vent. Rate : 085 BPM Atrial Rate : 085 BPM P-R Int : 176 ms QRS Dur : 100 ms QT Int : 424 ms P-R-T Axes : 018 -37 009 degrees QTc Int : 504 ms Normal sinus rhythm Left axis deviation Abnormal ECG Confirmed by JONO COURTNEY, KARLA ([id number]), supervising film or videotape editor ELISE CUEVAS ([id number]) on 12/11/2019 2:22:51 PM Referred By: JEFE Confirmed By:KARLA DE LA CRUZ MD
--- NOTE | 2019-12-06 12:44 | ED.VIS.GEN ---
History of Present Illness Chief Complaint: Abn Labs Detail of Chief Complaint: Low calcium and stress Informant: Patient Onset: Weeks - Onset approximately 1 week ago Context: Sudden Onset Timing: Continuous, Waxes and wanes Quality: Weakness, twitching, irritability Location: Generalized musculoskeletal Current Severity: Mild Maximum Severity: Moderate Worsened by: Suspect low calcium Relieved by: Nothing Associated Symptoms: Symptoms associated with low calcium and stress Narrative: Patient is a 54-year-old woman status post partial parathyroidectomy. She had one gland implanted dorsal surface left forearm. She states she is been under stress since her mother 1 week ago. For approximate 1 week she is had twitching of her muscles, generalized weakness, irritability. She has had problems with low potassium in the past. Apparently the pharmacy does not have refills for her calcium supplement. She denies headache. She denies visual, ocular auditory symptoms. Denies trouble with speech or swallowing. She denies cardiac respiratory symptoms. She does report nausea without vomiting diarrhea. She has no urologic symptoms. She does complain of numbness tingling in her extremities. Prior similar symptoms: Yes - Hypocalcemia Recent Illness/Hospitalization: No - Past Medical History (1) Ureteral calculus Status: Acute (2) ADHD Status: Chronic (3) Allergic rhinitis Status: Chronic (4) Anemia Status: Chronic (5) Anxiety Status: Chronic (6) Chronic kidney disease, stage 3 Status: Chronic (7) Depression Status: Chronic (8) Hypothyroidism Status: Chronic (9) Insomnia Status: Chronic (10) Irritable bowel syndrome Status: Chronic (11) Multiple endocrine neoplasia type 1 (MEN1) Status: Chronic (12) Osteoarthritis of right knee Status: Chronic (13) Post traumatic stress disorder Status: Chronic (14) Restless leg syndrome Status: Chronic (15) Sleep apnea Status: Chronic Past Medical History - Allergies and Home Meds Allergies/Adverse Reactions: Allergies propranolol Allergy (Mild, Verified 12/06/19 12:25) unknow Iodinated Contrast Media [DYEE] Allergy (Verified 12/06/19 12:25) Rash iron Adverse Reaction (Verified 12/06/19 12:25) Other ABD PAIN morphine Adverse Reaction (Verified 12/06/19 12:25) Rash ondansetron [From Zofran] Adverse Reaction (Verified 12/06/19 12:25) Other headache Primary Care Physician: Bret Salomon MD [Primary Care Provider] - Prior records reviewed: Yes Surgical History: cholecystectomy - 1993., hysterectomy, - - Gastric Sleeve 2006, Right knee meniscus repair 2012, 3/ parathyroidectomy transplant left forearm, left foot fracture repair, Right rotator cuff repair. Lives: Alone Smoking Status: Never smoker Alcohol: None Drugs: None - Family History Maternal Family History: Reports: No pertinent history Paternal Family History: Reports: No pertinent history Review of Systems General: Reports: Malaise. Denies: Chills, Fever, Subjective, Sweats Eyes: Denies: Visual changes - bilaterally, Blurred Vision - bilaterally ENT: Denies: Rhinorrhea, Sore throat Cardiovascular: Denies: Chest pain, Palpitations Respiratory: Denies: Dyspnea, Cough, Dyspnea on exertion Gastrointestinal: Reports: Nausea. Denies: Abdominal pain, Vomiting, Diarrhea, Constipation Genitourinary: Denies: Dysuria, Hematuria, Frequency Musculoskeletal: Denies: Myalgias, Arthralgias, Neck pain, Back pain, Extremity Pain Skin: Denies: Rash, Wounds Neurological: Reports: Weakness, Parasthesia. Denies: Headache Psych: Denies: Depression, Anxiety Endocrine: Denies: Polyuria, Polydipsia Allergy: Denies: Uticaria Physical Exam Vital Signs/Narrative: Vital Signs Temp Pulse Resp BP Pulse Ox 12/06/19 12:26 97.0 F L 92 17 132/90 H 100 Inital Vital Signs reviewed: Yes General: Well nourished, Well developed, Obese, No Acute Distress Head: Normocephalic, Atraumatic Eyes: Perrl, EOMI. Negative for: Pale conjunctiva, Scleral icterus ENT: No rhinorrhea Neck: Supple, Nontender, No lymphadenopathy, No JVD Cardiovascular: Regular rate, Regular rhythm, No murmurs, Normal S1, Normal S2 Respiratory: No distress, CTA bilaterally, Chest nontender Abdomen: Soft, Nontender, Nondistended, Normal bowel sounds Extremities: Nontender, Edema Skin: Normal color, No rash Neurological: Alert, Oriented x3, Cranial nerves II-XII grossly intact, Normal Strength, Normal Sensation, Normal DTR - She is hyperreflexic. She has 4-6 beats of clonus at the ankles. Equivocal [place] sign bilaterally. Psychological: Normal affect Diagnostic/Tx/Re-eval Laboratory Results 12/06/19 12/06/19 13:17 13:17 Sodium 138 Potassium 2.3 L* Chloride 100 Carbon Dioxide 31.0 Anion Gap 7 BUN 19 H Creatinine 1.47 H Estim Creat Clear Calc 43.04 Est GFR (MDRD) Af Amer 48 L Est GFR (MDRD) Non-Af 39 L BUN/Creatinine Ratio 12.9 Glucose 87 Calcium 8.3 L Magnesium 1.9 Total Bilirubin 0.60 AST 16 ALT 25 Alkaline Phosphatase 143 H Total Protein 8.3 H Albumin 3.6 Globulin 4.7 H Albumin/Globulin Ratio 0.8 L Calcium is 8.3 with a albumin of 3.6. Patient's potassium is 2.3. Because of the low potassium magnesium was obtained. Magnesium is normal. Plan is p.o. potassium and p.o. calcium in the emergency department. She is to be discharged to home with p.o. potassium and recheck in 3 to 5 days. Feel there is a component of anxiety. She was treated with Ativan. - Medical Decision Making This may be due to stress and hyperventilation versus hypocalcemia. Will obtain comprehensive metabolic panel to assess albumin and calcium as well as ionized calcium. EKG was obtained to determine if there are any EKG changes consistent with hypocalcemia. ED Disposition - Plan for ED Patient: Disposition: Home or Assisted Living Diagnosis: Hypokalemia, Hypocalcemia, Anxiety as acute reaction to exceptional stress Instructions: ED Potassium Deficiency, ED Hypocalcemia Prescriptions: Potassium Cloride Effervescent [Potassium Chl 25 Meq Eff (For Liquid)] 25 meq PO BID #14 tablet.eff Prescription Printed Referrals: Bret Salomon MD [Primary Care Provider] - 3-5 Days Additional Instructions: 1. Scheduled to see your primary care physician in 3 to 5 days for repeat potassium level. 2. You may purchase any calcium products that is sold [id number] and take as instructed on bile.
[2019-12-06 13:56] LABS: ALB/GLOB Ratio 0.8 RATIO (0.9-2.4); AST(SGOT) 16 U/L (15-37); Alanine Aminotransfer ALT/SGPT 25 U/L (13-56); Albumin, Serum 3.6 g/dL (3.2-5.0); Alkaline Phosphatase 143 U/L (45-117); Anion Gap 7 (5-15); BUN 19 mg/dL (7-18); BUN/Creat Ratio 12.9 RATIO (10-20); Calcium,Total 8.3 mg/dL (8.5-10.1); Chloride 100 mmol/L (98-107); Creatinine, Serum 1.47 mg/dL (0.55-1.02); EST Glomerular Filtration Rate 39 mL/min (>60); Est Glom Filt Rate - Afr Amer 48 mL/min (>60); Estimated Creatinine Clearance 43.04 ml/min; Globulin 4.7 g/dL (2.2-4.2); Glucose 87 mg/dL (74-106); Potassium 2.3 mmol/L (3.5-5.1); Protein, Total 8.3 g/dL (6.4-8.2); Sodium Level 138 mmol/L (136-145)
[2019-12-06 14:25] VITALS: BP 103/61; PULSE 84; RESP 18; O2SAT 100
[2019-12-06] MEDS: Calcium (Elemental) 500 MG Tablet PO (14:29)
[2019-12-06 14:46] LABS: Magnesium 1.9 mg/dL (1.6-2.6)
[2019-12-06] MEDS: LORazepam 0.5 MG Tablet PO (14:59)
[2019-12-06 15:10] VITALS: BP 105/77; PULSE 88; RESP 16; O2SAT 99
== END 2019-12-06 15:10 | disposition home or self-care (01) ==
PROVIDERS: Emergency Provider Emergency Medicine; PCP Internal Medicine
DX: E87.6 Hypokalemia (principal); E83.51 Hypocalcemia; F41.1 Generalized anxiety disorder; F43.0 Acute stress reaction; E03.9 Hypothyroidism, unspecified; F90.9 Attention-deficit hyperactivity disorder, unspecified type; Z79.899 Other long term (current) drug therapy
CPT/HCPCS: 80053; 82330; 83735; 93005; 99285; A4216

== ENCOUNTER 2020-02-28 21:55 | Emergency (ER) | payer MEDICARE, MEDICAID, SELFPAY ==
[2020-02-28 21:56] VITALS: BP 136/112; PULSE 103; RESP 16; TEMP 36.1; O2SAT 100; BMI 51.1
--- NOTE | 2020-02-28 22:16 | ED.VIS.GEN ---
History of Present Illness Chief Complaint: Lower Extremity Injury Informant: Patient Narrative: Patient is a 54-year-old female who presents to the emergency department for swelling to the left lower extremity. She struck her gerardo against the car door trying to step up into it 2 days ago. She developed significant bruising over the site. She has had some clear/yellow fluid coming from the area. Have chronic swelling of the lower extremities. The swelling is no worse than normal. She does have some scabbing to the right lower extremity which she blamed on carpet beetles. She has some fluid coming from the sites as well. She denies any significant tenderness. No warmth. She was just concerned that it might be getting infected. She denies any systemic symptoms including any fever/chills. No nausea/vomiting. She is not on any anticoagulation medications. No aspirin. She is not a diabetic. Past Medical History - Allergies and Home Meds Allergies/Adverse Reactions: Allergies propranolol Allergy (Mild, Verified 02/28/20 21:56) unknow Iodinated Contrast Media [DYEE] Allergy (Verified 02/28/20 21:56) Rash iron Adverse Reaction (Verified 02/28/20 21:56) Other ABD PAIN morphine Adverse Reaction (Verified 02/28/20 21:56) Rash ondansetron [From Zofran] Adverse Reaction (Verified 02/28/20 21:56) Other headache Primary Care Physician: Bret Salomon MD [Primary Care Provider] - 3-5 Days Prior records reviewed: Yes Surgical History: cholecystectomy - 1993., hysterectomy, - - Gastric Sleeve 2006, Right knee meniscus repair 2012, 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 Smoking Status: Never smoker - Family History Maternal Family History: Reports: No pertinent history Paternal Family History: Reports: No pertinent history Review of Systems All systems negative except as indicated General: Denies: Chills, Fever, Sweats Eyes: Denies: Visual changes - bilaterally, Diplopia ENT: Denies: Rhinorrhea, Sore throat Cardiovascular: Denies: Chest pain, Palpitations Respiratory: Denies: Dyspnea, Cough, Dyspnea on exertion Gastrointestinal: Denies: Abdominal pain, Nausea, Vomiting Musculoskeletal: Reports: Swelling. Denies: Back pain, Extremity Pain Skin: Reports: Wounds, - - Bruising. Denies: Rash Neurological: Denies: Headache, Weakness, Numbness Physical Exam Vital Signs/Narrative: Vital Signs Temp Pulse Resp BP Pulse Ox 02/28/20 21:56 96.9 F L 103 H 16 136/112 H 100 Inital Vital Signs reviewed: Yes General: Well nourished, Well developed, No Acute Distress Head: Normocephalic, Atraumatic Eyes: Perrl, EOMI Neck: Supple Cardiovascular: Regular rate Respiratory: No distress Abdomen: Soft, Nontender, Nondistended, Normal bowel sounds Back: Nontender, Normal Inspection Extremities: Nontender, Edema - Bilateral pitting edema., - - Left gerardo has large area of ecchymosis. There is no significant tenderness, warmth to the area. There is serosanguineous fluid dripping from the site. This is also present on the right lower extremity. No calf tenderness. Skin: No Trauma - Bruising to left anterior gerardo, Trauma Neurological: Alert, Oriented x3, Normal Strength, Normal Sensation Psychological: Normal affect, Normal Mood Diagnostic/Tx/Re-eval - Medical Decision Making Patient presents to the ED for bruising, clear discharge coming from the left gerardo after she struck it against her car. No evidence of cellulitis at this time. She is nontoxic-appearing. I believe that this fluid is from her chronic lymphedema. She is on Lasix for this. She denies any history of heart failure. No shortness of breath. Will recommend antibiotic ointment over the open wounds to prevent infection. He is to monitor for evidence of significant swelling, warmth, tenderness. That time she would require oral antibiotics. At this time will treat symptomatically otherwise. She understands and is agreeable this plan. She is to follow-up with her PCP for wound recheck. She is discharged home in stable condition. All questions were answered. ED Disposition - Plan for ED Patient: Disposition: Home or Assisted Living Diagnosis: Ecchymosis, Peripheral edema Instructions: Contusions (Bruises), ED Lymphedema Referrals: Bret Salomon MD [Primary Care Provider] - 3-5 Days Additional Instructions: Please apply triple antibiotic ointment over the open areas until the scabs over. Monitor the area for evidence of infection including tenderness, warmth, redness.
[2020-02-28 22:53] VITALS: BP 148/95; PULSE 88; RESP 16; O2SAT 98
== END 2020-02-28 22:53 | disposition home or self-care (01) ==
LOC: ED 22:46
PROVIDERS: Emergency Provider Emergency Medicine; PCP Internal Medicine
DX: S80.12XA Contusion of left lower leg, initial encounter (principal); W22.8XXA Striking against or struck by other objects, initial encounter; Y93.89 Activity, other specified; Y92.810 Car as the place of occurrence of the external cause; Y99.9 Unspecified external cause status
CPT/HCPCS: 99282

== ENCOUNTER 2020-06-22 12:00 | Emergency (ER) | payer MEDICARE, MEDICAID, SELFPAY ==
[2020-06-22 12:01] VITALS: BP 118/75; PULSE 81; RESP 17; TEMP 36.4; O2SAT 98; BMI 49.8
--- NOTE | 2020-06-22 12:16 | ED.VIS.GEN ---
History of Present Illness Chief Complaint: Lower Extremity Injury Narrative: Patient presents with right foot pain after a fracture yesterday. She was seen at an outside urgent care had an x-ray which showed a proximal fifth metatarsal fracture she is in a boot and has crutches but she did not get any analgesia and she is in quite a bit of pain. She has no new injuries, no abrasions or swelling. Past medical history: Multiple endocrine neoplasia type I Medications: Reviewed Social history: Noncontributory Review of systems: Musculoskeletal: Right foot pain as in HPI Skin: No abrasions or lacerations Neurological: No weakness or paresthesias Hematologic: No easy bleeding or easy bruising Physical exam General: Patient does not appear in significant distress she is laying on the bed. Head: Normocephalic, Atraumatic Neck: No C-spine tenderness Cardiovascular: Regular rate, Regular rhythm Respiratory: No distress, CTA bilaterally Back: Nontender, Normal Inspection. Extremities: Right foot shows tenderness over the proximal fifth metatarsal. There is no ankle pain. Skin: No abrasions, no lacerations Neurological: Normal strength and sensation Past Medical History - Allergies and Home Meds Allergies/Adverse Reactions: Allergies propranolol Allergy (Mild, Verified 06/22/20 12:01) unknow Iodinated Contrast Media [DYEE] Allergy (Verified 06/22/20 12:01) Rash iron Adverse Reaction (Verified 06/22/20 12:01) Other ABD PAIN morphine Adverse Reaction (Verified 06/22/20 12:01) Rash ondansetron [From Zofran] Adverse Reaction (Verified 06/22/20 12:01) Other headache Primary Care Physician: Bret Salomon MD [Primary Care Provider] - Surgical History: cholecystectomy - 1993., hysterectomy, - - Gastric Sleeve 2006, Right knee meniscus repair 2012, 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 Smoking Status: Never smoker - Family History Maternal Family History: Reports: No pertinent history Paternal Family History: Reports: No pertinent history Physical Exam Vital Signs/Narrative: Vital Signs Temp Pulse Resp BP Pulse Ox 06/22/20 12:01 97.5 F L 81 17 118/75 98 Diagnostic/Tx/Re-eval - Medical Decision Making Patient has an unremarkable emergency department exam, I do not believe it is reasonable to repeat the x-ray. She requested another referral to our orthopedics which I will do. Otherwise I will give her analgesia for home. ED Disposition - Plan for ED Patient: Disposition: Home or Assisted Living Diagnosis: Foot fracture, right Instructions: ED Fracture, Foot Prescriptions: Oxycodone HCl/Acetaminophen [Percocet 5/325] 1 tablet PO Q6H PRN PRN 3 Days #12 tablet PRN Reason: Pain Transmission Status: Received by [facility] [facility] Referrals: Kenn Cantor MD [STAFF PHYSICIAN] - Wanda Peterson DPM [STAFF PHYSICIAN] - 2 Days
[2020-06-22 12:30] VITALS: BP 104/70; PULSE 83; RESP 16; O2SAT 95
== END 2020-06-22 12:34 | disposition home or self-care (01) ==
LOC: ED 12:32
PROVIDERS: Emergency Provider Emergency Medicine; PCP Internal Medicine
DX: S92.351A Displaced fracture of fifth metatarsal bone, right foot, initial encounter for closed fracture (principal); X58.XXXA Exposure to other specified factors, initial encounter; Y93.9 Activity, unspecified; Y92.9 Unspecified place or not applicable; Y99.9 Unspecified external cause status
CPT/HCPCS: 99282

== ENCOUNTER → 2020-07-30 | Outpatient (CLI) | payer MEDICARE, MEDICAID, SELFPAY ==
[2020-07-30 14:27] LABS: Glucose 104 mg/dL (74-106); Prolactin 8.4 ng/mL
[2020-08-01 12:02] LABS: Vitamin D,25 Hydroxy 30.2 ng/mL
[2020-08-03 14:23] LABS: C-Peptide 6.8 ng/mL (1.1-4.4); Gastrin, Serum 102 pg/mL (0-115)
[2020-08-03 15:21] LABS: Vitamin D 1,25-Dihydroxy 29.3 pg/mL (19.9-79.3)
== END | disposition home or self-care (01) ==
PROVIDERS: PCP Internal Medicine
DX: E31.21 Multiple endocrine neoplasia [MEN] type I (principal); E21.3 Hyperparathyroidism, unspecified
CPT/HCPCS: 82306; 82652; 82941; 82947; 83525; 83970; 84146; 84681

== ENCOUNTER 2021-01-11 09:23 | Emergency (ER) | payer MEDICARE, MEDICAID, SELFPAY ==
[2021-01-11 09:24] VITALS: BP 147/100; PULSE 99; RESP 16; TEMP 36.2; O2SAT 100; BMI 36.3
--- NOTE | 2021-01-11 09:54 | ED.VIS.DENTA ---
HPI History of Present Illness Chief Complaint: Dental Informant: patient Onset/Context/Timing Onset: Yesterday Current Severity: Moderate Maximum Severity: Moderate Narrative Narrative: Patient presents secondary to dental pain. She recently had a filling put in her right maxillary lateral incisor. Yesterday this fell out. She called her dentist who told her to put a covering over it and take some Motrin. This is not controlling her pain. [facility] Medical History Anemia Arthritis Difficulty balancing Fatigue history of gastric sleeve History of kidney stones history of left foot fracture history of right collar bone surgery Kidney disease Knee pain Multiple endocrine neoplasia (MEN) type I Home Medications bupropion HCl 150 mg PO DAILY 03/06/16 [History Last Taken 07/15/18] bupropion HCl 300 mg PO DAILY 03/06/16 [History Last Taken 07/15/18] dextroamphetamine-amphetamine 20 mg PO BID 03/06/16 [History Last Taken 07/15/18] venlafaxine 75 mg PO DAILY 03/06/16 [History Last Taken 07/15/18] cholecalciferol (vitamin D3) 2,000 unit PO DAILY 09/16/17 [History Last Taken 07/15/18] cyanocobalamin (vitamin B-12) 1,000 mcg PO DAILY@0800 09/16/17 [History Last Taken 07/15/18] omeprazole 20 mg PO DAILY 09/16/17 [History Last Taken 07/15/18] zolpidem 5 mg PO QHS PRN PRN 10/03/17 [History Last Taken 07/15/18] calcitriol 0.5 mcg PO DAILY 10/12/17 [History Last Taken 07/15/18] spironolactone 100 mg PO DAILY 10/12/17 [History Last Taken 07/15/18] aripiprazole 2 mg PO DAILY 02/22/18 [History Last Taken 07/15/18] alprazolam 0.5 mg PO BID 07/16/18 [History Last Taken 07/15/18] fluticasone propionate 50 mcg/actuation nasal spray,suspension 2 spray INTRANASAL DAILY 10/06/18 [History Last Taken Unknown] calcium citrate-vitamin D3 2 tab PO DAILY 10/03/19 [History Last Taken Unknown] furosemide 20 mg PO DAILY 10/03/19 [History Last Taken Unknown] kfmvsaivzjr-yzydqjrew-nou C-Mn 1 tab PO DAILY 10/03/19 [History Last Taken Unknown] levothyroxine 75 mcg PO DAILY 10/03/19 [History Last Taken Unknown] ylwobvxzrfyl-Kh-auok-minerals 1 ea PO DAILY 10/03/19 [History Last Taken Unknown] acetaminophen 1,000 mg PO Q6H PRN tab 10/11/19 [Rx Last Taken Unknown] calcium carbonate 1,000 mg PO TIDCM tab 10/11/19 [Rx Last Taken Unknown] potassium chloride 20 meq PO DAILYCM #30 tab 10/11/19 [Rx Last Taken Unknown] oxycodone-acetaminophen [Percocet] 1 tab PO Q6H PRN 3 Days #10 tab 01/11/21 [Rx Last Taken Unknown] penicillin V potassium 500 mg PO 4X/DAY #40 tab 01/11/21 [Rx Last Taken Unknown] Allergy/AdvReac Type Severity Reaction Status Date / Time propranolol Allergy Mild unknow Verified 01/11/21 09:25 Iodinated Contrast Media Allergy Rash Verified 01/11/21 09:25 [DYEE] iron AdvReac Other Verified 01/11/21 09:25 morphine AdvReac Rash Verified 01/11/21 09:25 ondansetron [From Zofran] AdvReac Other Verified 01/11/21 09:25 Surgical History H/O right knee surgery History of cholecystectomy History of hysterectomy History of parathyroidectomy Social History Smoking Status: Never smoker alcohol intake: current ROS ROS ED Constitutional Constitutional ED: Denies chills or fever(s) Eyes Eyes: Denies change in vision ENT ENT ED: Reports other Details: Dental pain ; Denies sore throat Cardiovascular Cardiovascular: Denies chest pain Respiratory/Chest Respiratory/Chest: Denies cough or dyspnea Gastrointestinal Gastrointestinal: Denies abdominal pain, diarrhea, nausea or vomiting Genitourinary Genitourinary ED: Denies dysuria Musculoskeletal Musculoskeletal: Denies back pain Integumentary Denies rash Neurologic Neurologic: Denies headache(s) or weakness Allergic/Immunologic Allergic/Immunologic ED: Denies urticaria EXAM Physical Exam Const Vital Signs: 01/11/21 09:24 Temperature 97.2 F L Temperature Source Temporal Pulse Rate 99 Respiratory Rate 16 Blood Pressure 147/100 H Blood Pressure Mean 115 Pulse Ox 100 Oxygen Delivery Method Room Air Positive well nourished and well developed General Appearance ED: well developed HEENT HEENT Narrative: Cavity noted to the lateral surface of the right mandibular lateral incisor. Minimal surrounding gum edema. No trismus. Posterior pharynx exam normal. Neck supple Chest Wall inspection of chest normal and palpation of chest normal Resp normal respiratory effort and clear to auscultation bilaterally Cardio regular rate and regular rhythm Extremity normal to inspection Neuro oriented x3 Sensorium / Orientation: alert Skin no rashes or lesions noted MDM MDM Treatment and Re-Evaluation Comments:: Calcium paste placed over the tooth fracture/cavity site. Patient will be given prescription for Spencer as well as Pen-Vee K. She is to follow-up with her dentist this coming week. Discharge Plan Triage Chief Complaint: Dental ED Provider: Yaneth Martinez Dx/Rx/DC Orders Clinical Impression: Pain, dental Instructions: ED Dental Pain Prescriptions: New oxycodone-acetaminophen [Percocet] 5-325 mg tablet 1 tab PO Q6H PRN (Reason: pain) 3 Days Qty: 10 RF: 0 penicillin V potassium 500 mg tablet 500 mg PO 4X/DAY Qty: 40 RF: 0 No Action fluticasone propionate [Allergy Relief (fluticasone)] 50 mcg/actuation spray,suspension 2 spray INTRANASAL DAILY RF: 0 venlafaxine 75 MG capsule 75 mg PO DAILY RF: 0 dextroamphetamine-amphetamine 20 MG tablet 20 mg PO BID RF: 0 bupropion HCl 300 MG tablet extended release 24 hr 300 mg PO DAILY RF: 0 bupropion HCl 150 MG tablet extended release 24 hr 150 mg PO DAILY RF: 0 cyanocobalamin (vitamin B-12) 500 MCG tablet 1,000 mcg PO DAILY@0800 RF: 0 omeprazole 20 MG capsule 20 mg PO DAILY RF: 0 cholecalciferol (vitamin D3) 2,000 UNIT capsule 2,000 unit PO DAILY RF: 0 zolpidem 5 MG tablet 5 mg PO QHS PRN PRN (Reason: INSOMNIA) RF: 0 spironolactone 100 MG tablet 100 mg PO DAILY RF: 0 calcitriol 0.25 MCG capsule 0.5 mcg PO DAILY RF: 0 aripiprazole 2 MG tablet 2 mg PO DAILY RF: 0 alprazolam 2 MG tablet 0.5 mg PO BID RF: 0 levothyroxine 75 MCG tablet 75 mcg PO DAILY RF: 0 furosemide 20 MG tablet 20 mg PO DAILY RF: 0 fhmuylhyvhn-iliyjawry-xso C-Mn 1 EACH tablet 1 tab PO DAILY RF: 0 bdeshkmdhvpb-Oo-avnt-minerals 1 EACH tablet 1 ea PO DAILY RF: 0 calcium citrate-vitamin D3 1 EACH tablet 2 tab PO DAILY RF: 0 acetaminophen 500 MG tablet 1,000 mg PO Q6H PRN (Reason: Pain Score 1-5/10) RF: 0 potassium chloride 20 MEQ tablet 20 meq PO DAILYCM Qty: 30 RF: 0 calcium carbonate 500 MG tablet 1,000 mg PO TIDCM RF: 0 Primary Care Provider: Bret Salomon Referrals: Bret Salomon MD [Primary Care Provider] - Activity Restrictions/Additional Instructions: Follow-up with your dentist as soon as possible. Disposition Disposition: Home, Self Care
== END 2021-01-11 10:30 | disposition home or self-care (01) ==
PROVIDERS: Emergency Provider Emergency Medicine; PCP Internal Medicine
DX: K08.89 Other specified disorders of teeth and supporting structures (principal); D64.9 Anemia, unspecified; M19.90 Unspecified osteoarthritis, unspecified site; Z79.899 Other long term (current) drug therapy
CPT/HCPCS: 99282

== ENCOUNTER 2021-01-15 07:59 | Emergency (ER) | payer MEDICARE, MEDICAID, SELFPAY ==
[2021-01-15 08:00] VITALS: BP 150/100; PULSE 91; RESP 18; TEMP 36.8; O2SAT 100; BMI 51.7
--- NOTE | 2021-01-15 08:10 | EDS_ITS ---
HPI History of Present Illness Chief Complaint: Dental Detail of Chief Complaint: Dental pain that started 5 days ago Informant: patient Narrative Narrative: Toe pain that started 5 days ago. Patient states that she had a filling fall out of her right upper tooth at that time. Patient was seen over the weekend and was prescribed 10 Percocet and penicillin. Pain was being helped with the Percocet but she cannot get into her dentist until her appointment in 3 days. She denies fevers. Patient denies any other complaints. [facility] Medical History Anemia Arthritis Difficulty balancing Fatigue history of gastric sleeve History of kidney stones history of left foot fracture history of right collar bone surgery Kidney disease Knee pain Multiple endocrine neoplasia (MEN) type I Home Medications bupropion HCl 150 mg PO DAILY 03/06/16 [History Last Taken 07/15/18] bupropion HCl 300 mg PO DAILY 03/06/16 [History Last Taken 07/15/18] dextroamphetamine-amphetamine 20 mg PO BID 03/06/16 [History Last Taken 07/15/18] venlafaxine 75 mg PO DAILY 03/06/16 [History Last Taken 07/15/18] cholecalciferol (vitamin D3) 2,000 unit PO DAILY 09/16/17 [History Last Taken 07/15/18] cyanocobalamin (vitamin B-12) 1,000 mcg PO DAILY@0800 09/16/17 [History Last Ta lanny 07/15/18] omeprazole 20 mg PO DAILY 09/16/17 [History Last Taken 07/15/18] zolpidem 5 mg PO QHS PRN PRN 10/03/17 [History Last Taken 07/15/18] calcitriol 0.5 mcg PO DAILY 10/12/17 [History Last Taken 07/15/18] spironolactone 100 mg PO DAILY 10/12/17 [History Last Taken 07/15/18] aripiprazole 2 mg PO DAILY 02/22/18 [History Last Taken 07/15/18] alprazolam 0.5 mg PO BID 07/16/18 [History Last Taken 07/15/18] fluticasone propionate 50 mcg/actuation nasal spray,suspension 2 spray INTRANASAL DAILY 10/06/18 [History Last Taken Unknown] calcium citrate-vitamin D3 2 tab PO DAILY 10/03/19 [History Last Taken Unknown] furosemide 20 mg PO DAILY 10/03/19 [History Last Taken Unknown] yhzyoqaaguf-mpxsesifi-fyq C-Mn 1 tab PO DAILY 10/03/19 [History Last Taken Unknown] levothyroxine 75 mcg PO DAILY 10/03/19 [History Last Taken Unknown] bjatpqwrkdhu-Ss-otpk-minerals 1 ea PO DAILY 10/03/19 [History Last Taken Unknown] acetaminophen 1,000 mg PO Q6H PRN tab 10/11/19 [Rx Last Taken Unknown] calcium carbonate 1,000 mg PO TIDCM tab 10/11/19 [Rx Last Taken Unknown] potassium chloride 20 meq PO DAILYCM #30 tab 10/11/19 [Rx Last Taken Unknown] oxycodone-acetaminophen [Percocet] 1 tab PO Q6H PRN 3 Days #10 tab 01/11/21 [Rx Last Taken Unknown] penicillin V potassium 500 mg PO 4X/DAY #40 tab 01/11/21 [Rx Last Taken Unknown] oxycodone-acetaminophen 1 tab PO Q6H PRN PRN 3 Days #12 tablet 01/15/21 [Rx Last Taken Unknown] Allergy/AdvReac Type Severity Reaction Status Date / Time propranolol Allergy Mild unknow Verified 01/15/21 08:02 Iodinated Contrast Media Allergy Rash Verified 01/15/21 08:02 [DYEE] iron AdvReac Other Verified 01/15/21 08:02 morphine AdvReac Rash Verified 01/15/21 08:02 ondansetron [From Zofran] AdvReac Other Verified 01/15/21 08:02 Surgical History H/O right knee surgery History of cholecystectomy History of hysterectomy History of parathyroidectomy Social History Smoking Status: Never smoker alcohol intake: current ROS ROS ED Constitutional Constitutional ED: Reports systems reviewed and no addt'l complaints, except as documented; Denies body ache(s), change in weight or chills Eyes Eyes: Denies acute decrease in peripheral vision, change in vision, double vision or loss of vision ENT ENT ED: Reports none and other Details: Dental pain ; Denies ear pain, lip swelling, loss taste/smell, neck pain, otalgia or sore throat Cardiovascular Cardiovascular: Reports none; Denies abdominal pain, chest pain with activity, leg edema, lightheadedness, palpitations, rapid heart rate or syncope Respiratory/Chest Respiratory/Chest: Reports none; Denies change in mental status, dry cough, dyspnea, hemoptysis, shortness of breath at rest or shortness of breath with exertion Gastrointestinal Gastrointestinal: Reports none; Denies abdominal pain, change in stool character, diarrhea, hematemesis, hematochezia, melena, rectal bleeding or vomiting Genitourinary Genitourinary ED: Reports none; Denies abdominal discomfort, anuria, dysuria, genital pain or polyuria Musculoskeletal Musculoskeletal: Reports none; Denies arthralgias, back pain, difficulty walking, extremity pain, muscle weakness or myalgias Integumentary Reports none; Denies abscess or rash Neurologic Neurologic: Reports none; Denies abnormal gait, confusion, focal weakness, frequent falls, headache(s), loss of vision, numbness, paresthesias, radicular pain, vertigo or weakness Psychiatric Psychiatric: Reports systems reviewed and no addt'l complaints, except as documented and none; Denies behavioral changes, confusion, difficulty concentrating, hallucinations, suicidal ideation, tactile hallucinations or visual hallucinations Endocrine Endocrinology: Denies none, cold intolerance, excessive sweating, fatigue or heat intolerance Hematologic/Lymphatic Hematologic/Lymphatic: Reports none; Denies anemia, easy bleeding or easy bruising Allergic/Immunologic Allergic/Immunologic ED: Denies as per HPI, none, lip swelling, mouth swelling, throat swelling, tongue swelling or hives EXAM Physical Exam Const Vital Signs: 01/15/21 08:00 Temperature 98.2 F Temperature Source Temporal Pulse Rate 91 Respiratory Rate 18 Blood Pressure 150/100 H Blood Pressure Mean 116 Pulse Ox 100 Oxygen Delivery Method Room Air Positive well nourished and well developed General Appearance ED: well developed and NAD HEENT Reports TM's clear and moist mucous membranes HEENT Narrative: Dentition-patient has a broken and carried right upper tooth #7. No gingival erythema or signs of abscess. No facial redness or cellulitis. No facial swelling noted. normocephalic and atraumatic; Negative for trauma or tenderness Tympanic Membrane ED: Yes TM's clear Eyes PERRL and EOMs intact bilaterally General Eye ED: Negative for pale conjunctiva or scleral icterus Neck no lymphadenopathy, supple and no JVD General: Negative for tenderness Chest Wall inspection of chest normal and palpation of chest normal Chest: Negative for tenderness Resp normal respiratory effort and clear to auscultation bilaterally Effort and Inspection: Negative for respiratory distress or pain with movement Auscultation: Negative for rhonchi, wheezes or diminished lung sounds Cardio regular rate, regular rhythm, S1 normal heart sound, S2 normal heart sound and no murmurs Peripheral Pulses: pulses 2+ throughout GI normal to inspection, nondistended, normoactive bowel sounds, soft to palpation, non-tender, non-distended and no masses Back/Spine no CVA tenderness and no thoracic nor lumbar tenderness Extremity normal to inspection General Extremety ED: Negative for edema General Extremity: Negative for edema Neuro oriented x3, CN's II-XII intact bilaterally, no sensory deficits noted and gait normal Sensorium / Orientation: awake, alert, oriented to person, oriented to place and oriented to time Motor Exam: strength 5/5 throughout and strength abnormal Psych mental status grossly normal Skin no rashes or lesions noted and no wounds MDM MDM MDM Narrative Medical decision making narrative: Patient will be given a prescription for Percocet until she can follow-up with her dentist. Patient to continue with her antibiotic. Discharge Plan Triage Chief Complaint: Dental ED Provider: Alan Weinstein Dx/Rx/DC Orders Clinical Impression: Pain, dental Instructions: ED Dental Pain Prescriptions: New oxycodone-acetaminophen [oxycodone-acetaminophen] 1 TABLET tablet 1 tab PO Q6H PRN PRN (Reason: Pain) 3 Days Qty: 12 RF: 0 No Action fluticasone propionate [Allergy Relief (fluticasone)] 50 mcg/actuation spray,suspension 2 spray INTRANASAL DAILY RF: 0 venlafaxine 75 MG capsule 75 mg PO DAILY RF: 0 dextroamphetamine-amphetamine 20 MG tablet 20 mg PO BID RF: 0 bupropion HCl 300 MG tablet extended release 24 hr 300 mg PO DAILY RF: 0 bupropion HCl 150 MG tablet extended release 24 hr 150 mg PO DAILY RF: 0 cyanocobalamin (vitamin B-12) 500 MCG tablet 1,000 mcg PO DAILY@0800 RF: 0 omeprazole 20 MG capsule 20 mg PO DAILY RF: 0 cholecalciferol (vitamin D3) 2,000 UNIT capsule 2,000 unit PO DAILY RF: 0 zolpidem 5 MG tablet 5 mg PO QHS PRN PRN (Reason: INSOMNIA) RF: 0 spironolactone 100 MG tablet 100 mg PO DAILY RF: 0 calcitriol 0.25 MCG capsule 0.5 mcg PO DAILY RF: 0 aripiprazole 2 MG tablet 2 mg PO DAILY RF: 0 alprazolam 2 MG tablet 0.5 mg PO BID RF: 0 levothyroxine 75 MCG tablet 75 mcg PO DAILY RF: 0 furosemide 20 MG tablet 20 mg PO DAILY RF: 0 imvfkfbnsvx-ienkednpt-rxh C-Mn 1 EACH tablet 1 tab PO DAILY RF: 0 cmayispvnxwk-Ua-burx-minerals 1 EACH tablet 1 ea PO DAILY RF: 0 calcium citrate-vitamin D3 1 EACH tablet 2 tab PO DAILY RF: 0 acetaminophen 500 MG tablet 1,000 mg PO Q6H PRN (Reason: Pain Score 1-5/10) RF: 0 potassium chloride 20 MEQ tablet 20 meq PO DAILYCM Qty: 30 RF: 0 calcium carbonate 500 MG tablet 1,000 mg PO TIDCM RF: 0 oxycodone-acetaminophen [Percocet] 5-325 mg tablet 1 tab PO Q6H PRN (Reason: pain) 3 Days Qty: 10 RF: 0 penicillin V potassium 500 mg tablet 500 mg PO 4X/DAY Qty: 40 RF: 0 Primary Care Provider: Bret Salomon Referrals: Bret Salomon MD [Primary Care Provider] - Activity Restrictions/Additional Instructions: Keep your appointment with dentist and finish your antibiotics. Disposition Disposition: Home, Self Care
== END 2021-01-15 08:29 | disposition home or self-care (01) ==
PROVIDERS: Emergency Provider Emergency Medicine; PCP Internal Medicine
DX: K08.89 Other specified disorders of teeth and supporting structures (principal)
CPT/HCPCS: 99282

== ENCOUNTER → 2021-02-05 11:56 | Outpatient (CLI) | payer MEDICARE, MEDICAID, SELFPAY ==
[2021-02-05 13:12] LABS: Anion Gap 11 (5-15); BUN 14 mg/dL (7-18); Calcium,Total 8.5 mg/dL (8.5-10.1); Chloride 97 mmol/L (98-107); Creatinine, Serum 1.56 mg/dL (0.55-1.02); EST Glomerular Filtration Rate 37 mL/min (>60); Est Glom Filt Rate - Afr Amer 44 mL/min (>60); Glucose 102 mg/dL (74-106); Potassium 2.7 mmol/L (3.5-5.1); Sodium Level 138 mmol/L (136-145)
== END ==
PROVIDERS: PCP Internal Medicine
DX: F33.1 Major depressive disorder, recurrent, moderate (principal)
CPT/HCPCS: 36415; 80048

== ENCOUNTER 2021-04-15 18:43 | Outpatient (CLI) | payer MEDICARE, MEDICAID, SELFPAY ==
--- NOTE | 2021-04-15 18:46 | CT_ITS ---
STUDY: CT BRAIN WITHOUT CONTRAST REASON FOR EXAM: Female, 55 years old. Major depressive disorder, pre-ECT UGALDE TECHNIQUE: Transaxial CT imaging of the brain was performed without administration of intravenous contrast material. Individualized dose optimization techniques were used for this CT. COMPARISON: 05.27.18 FINDINGS: Normal calvarium. Normal soft tissues. Normal size ventricles and extra-axial spaces for the patient''s age. There are areas of decreased attenuation within the white matter tracts of the supratentorial brain, consistent with microvascular disease changes. Normal basal ganglia and thalami. Normal brainstem. Normal cerebellum. There is no intracranial hemorrhage. There are no findings of an acute ischemic infarction. Previous sinus surgery noted. There are bilateral antral windows. There is mild maxillary sinus disease. ASPECTS 10 CT/Brain/Head without Contrast IMPRESSION: There are no acute intracranial findings. Electronically Signed: Deepak Pagie MD at 19:14 EST ,
== END 2021-04-15 23:59 | disposition home or self-care (01) ==
PROVIDERS: PCP Internal Medicine; Visit Provider Psychiatry & Neurology Psychiatry
DX: R51.9 Headache, unspecified (principal); F33.1 Major depressive disorder, recurrent, moderate
CPT/HCPCS: 70450

== ENCOUNTER 2021-08-14 21:36 | Emergency (ER) | payer MEDICARE, MEDICAID, SELFPAY ==
[2021-08-14 21:37] VITALS: BP 149/97; PULSE 100; RESP 18; TEMP 36.1; O2SAT 94; BMI 62.4
--- NOTE | 2021-08-14 21:50 | EKG12_ITS ---
Test Reason : DYSRHYTHMIA Blood Pressure : / mmHG Vent. Rate : 093 BPM Atrial Rate : 093 BPM P-R Int : 180 ms QRS Dur : 112 ms QT Int : 376 ms P-R-T Axes : 011 -42 031 degrees QTc Int : 467 ms Normal sinus rhythm Left axis deviation Poor R wave progression Abnormal ECG Confirmed by ELIGIO COURTNEY, RUSTY ([id number]), city editor ELISE CUEVAS ([id number]) on 08/18/2021 7:25:54 AM Referred By: TAJ Confirmed By:RUSTY DEL VALLE MD
--- NOTE | 2021-08-14 21:52 | EX.ED.DYSGE1 ---
HPI History of Present Illness Chief Complaint: Dizziness Informant: patient Onset/Context/Timing Onset: Today Current Severity: Mild Maximum Severity: Mild Narrative Narrative: Patient presents secondary to lightheadedness that started today. She also complains of myalgias. Yesterday she felt her potassium dropped. She is taking 5 tabs of potassium replacement today, each 20 mEq. She did not have her blood work checked just stated that she felt like her potassium was low. She denies fever or chills. No significant cough. [facility] Medical History Anemia Arthritis Difficulty balancing Fatigue history of gastric sleeve History of kidney stones history of left foot fracture history of right collar bone surgery Kidney disease Knee pain Multiple endocrine neoplasia (MEN) type I Home Medications bupropion HCl 150 mg PO DAILY 03/06/16 [History Last Taken 07/15/18] bupropion HCl 300 mg PO DAILY 03/06/16 [History Last Taken 07/15/18] venlafaxine 75 mg PO DAILY 03/06/16 [History Last Taken 07/15/18] cholecalciferol (vitamin D3) 2,000 unit PO DAILY 09/16/17 [History Last Taken 07/15/18] cyanocobalamin (vitamin B-12) 1,000 mcg PO DAILY@0800 09/16/17 [History Last Taken 07/15/18] omeprazole 20 mg PO DAILY 09/16/17 [History Last Taken 07/15/18] zolpidem 5 mg PO QHS PRN PRN 10/03/17 [History Last Taken 07/15/18] calcitriol 0.5 mcg PO DAILY 10/12/17 [History Last Taken 07/15/18] spironolactone 100 mg PO DAILY 10/12/17 [History Last Taken 07/15/18] aripiprazole 2 mg PO DAILY 02/22/18 [History Last Taken 07/15/18] alprazolam 0.5 mg PO BID 07/16/18 [History Last Taken 07/15/18] calcium citrate-vitamin D3 2 tab PO DAILY 10/03/19 [History Last Taken Unknown] furosemide 20 mg PO DAILY 10/03/19 [History Last Taken Unknown] levothyroxine 75 mcg PO DAILY 10/03/19 [History Last Taken Unknown] acetaminophen 1,000 mg PO Q6H PRN tab 10/11/19 [Rx Last Taken Unknown] calcium carbonate 1,000 mg PO TIDCM tab 10/11/19 [Rx Last Taken Unknown] potassium chloride 20 meq PO DAILYCM #30 tab 10/11/19 [Rx Last Taken Unknown] Allergy/AdvReac Type Severity Reaction Status Date / Time propranolol Allergy Mild unknow Verified 08/14/21 21:39 Iodinated Contrast Media Allergy Rash Verified 08/14/21 21:39 [DYEE] iron AdvReac Other Verified 08/14/21 21:39 morphine AdvReac Rash Verified 08/14/21 21:39 ondansetron [From Zofran] AdvReac Other Verified 08/14/21 21:39 Surgical History H/O right knee surgery History of cholecystectomy History of hysterectomy History of parathyroidectomy Social History Smoking Status: Never smoker alcohol intake: current ROS ROS ED Constitutional Constitutional ED: Reports chills; Denies fever(s) Eyes Eyes: Denies change in vision ENT ENT ED: Denies sore throat Cardiovascular Cardiovascular: Denies chest pain Respiratory/Chest Respiratory/Chest: Denies cough or dyspnea Gastrointestinal Gastrointestinal: Denies abdominal pain, diarrhea, nausea or vomiting Genitourinary Genitourinary ED: Denies dysuria Musculoskeletal Musculoskeletal: Reports myalgias; Denies back pain Integumentary Denies rash Neurologic Neurologic: Reports weakness; Denies headache(s) Allergic/Immunologic Allergic/Immunologic ED: Denies urticaria EXAM Physical Exam Const Vital Signs: 08/14/21 21:37 08/14/21 22:11 Temperature 96.9 F L Temperature Source Temporal Pulse Rate 100 Respiratory Rate 18 Respiratory Effort Normal Blood Pressure 149/97 H Blood Pressure Mean 114 Pulse Ox 94 Oxygen Delivery Method Room Air Positive well nourished and well developed General Appearance ED: well developed HEENT Reports moist mucous membranes Eyes PERRL and EOMs intact bilaterally Neck supple Chest Wall inspection of chest normal and palpation of chest normal Resp normal respiratory effort and clear to auscultation bilaterally Cardio regular rate and regular rhythm GI non-tender Palpation: soft Extremity normal to inspection Neuro oriented x3 Sensorium / Orientation: alert Psych mental status grossly normal Skin no rashes or lesions noted MDM MDM MDM Narrative Medical decision making narrative: Patient given IV fluids. EKG, lab work, COVID/influenza swab obtained. Lab Data Attestation: I reviewed the patient's lab results. Labs: Laboratory Results - last 24 hr 08/14/21 08/14/21 22:00 22:00 WBC 12.0 H RBC 5.04 Hgb 13.7 Hct 41.1 MCV 81.5 MCH 27.2 MCHC 33.3 RDW Std Deviation 44.7 H RDW Coeff of Teena 15.0 H Plt Count 375 MPV 9.9 Immature Gran % (Auto) 0.400 Neut % (Auto) 87.2 H Lymph % (Auto) 7.0 L [place] % (Auto) 4.8 Eos % (Auto) 0.3 Baso % (Auto) 0.3 Absolute Neuts (auto) 10.5 H Absolute Lymphs (auto) 0.84 Nucleated RBC % 0 Sodium 135 L Potassium 3.3 L Chloride 99 Carbon Dioxide 26.0 Anion Gap 10 BUN 19 H Creatinine 1.82 H Estim Creat Clear Calc 25.09 Est GFR (MDRD) Af Amer 37 L Est GFR (MDRD) Non-Af 31 L BUN/Creatinine Ratio 10.4 Glucose 73 L Calcium 8.0 L EKG Initial EKG: Attestation: I personally reviewed and interpreted this EKG as follows: Interpretation: Sinus Rhythm (Sinus at 93 with no acute ischemia.) Treatment and Re-Evaluation Narrative: On repeat evaluation patient resting comfortably. EKG reveals no ischemia or arrhythmia. CBC was mild white count at 12.0. Chemistry studies show potassium of 3.3. BUN is slightly elevated at 1.82. Glucose is 73. She is given p.o. to help increase her glucose. She is given a liter of IV fluid for hydration. She is given 20 milliequivalents of potassium IV as well as 20 mill equivalents p.o. Her COVID and influenza swabs are negative. Patient be discharged home to continue her potassium supplementation. She is to have her labs rechecked in 1 week. Discharge Plan Triage Chief Complaint: Dizziness ED Provider: Yaneth Martinez Dx/Rx/DC Orders Clinical Impression: Hypokalemia, Viral syndrome Instructions: ED Hypokalemia, ED Viral Syndrome (Adult) Prescriptions: No Action venlafaxine 75 MG capsule 75 mg PO DAILY RF: 0 bupropion HCl 300 MG tablet extended release 24 hr 300 mg PO DAILY RF: 0 bupropion HCl 150 MG tablet extended release 24 hr 150 mg PO DAILY RF: 0 cyanocobalamin (vitamin B-12) 500 MCG tablet 1,000 mcg PO DAILY@0800 RF: 0 omeprazole 20 MG capsule 20 mg PO DAILY RF: 0 cholecalciferol (vitamin D3) 2,000 UNIT capsule 2,000 unit PO DAILY RF: 0 zolpidem 5 MG tablet 5 mg PO QHS PRN PRN (Reason: INSOMNIA) RF: 0 spironolactone 100 MG tablet 100 mg PO DAILY RF: 0 calcitriol 0.25 MCG capsule 0.5 mcg PO DAILY RF: 0 aripiprazole 2 MG tablet 2 mg PO DAILY RF: 0 alprazolam 2 MG tablet 0.5 mg PO BID RF: 0 levothyroxine 75 MCG tablet 75 mcg PO DAILY RF: 0 furosemide 20 MG tablet 20 mg PO DAILY RF: 0 calcium citrate-vitamin D3 1 EACH tablet 2 tab PO DAILY RF: 0 acetaminophen 500 MG tablet 1,000 mg PO Q6H PRN (Reason: Pain Score 1-5/10) RF: 0 potassium chloride 20 MEQ tablet 20 meq PO DAILYCM Qty: 30 RF: 0 calcium carbonate 500 MG tablet 1,000 mg PO TIDCM RF: 0 Primary Care Provider: Bret Salomon Referrals: Bret Salomon MD [Primary Care Provider] - 1 Week Disposition Disposition: Home, Self Care
[2021-08-14] MEDS: 0.9% Normal Saline 1,000 ML 150 ML IV (22:03)
[2021-08-14 22:34] LABS: Absolute Lymphocyte Count 0.84 X10^3/uL (0.83-4.51); Absolute Neutrophil Count 10.5 X10^3/uL (2.0-7.7); Basophil# 0.03 X10^3/uL; Basophil% 0.3 % (0-1); Eosinophil# 0.04 X10^3/uL; Eosinophils% 0.3 % (0-5); Hematocrit 41.1 % (37-47); Hemoglobin 13.7 g/dL (12.0-15.0); Lymphocyte # 0.84 X10^3/ul (0.83-4.51); Mean Corp Hgb Conc 33.3 g/dL (32-36); Mean Corpuscular Hgb 27.2 pg (27.0-32.0); Mean Corpuscular Volume 81.5 fL (81-99); Mean Platelet Vol. 9.9 fl (6.2-12.0); Monocyte# 0.57 X10^3/uL; Monocyte% 4.8 % (0-10); NRBC Flagged by Analyzer 0 % (0-5); Neutrophil # 10.45 X10^3/uL (2.7-7.7); Neutrophil % 87.2 % (47-70); Platelet Count 375 K/mm3 (150-450); RBC Distribution Width SD 44.7 fl (35.1-43.9); Red Blood Count 5.04 M/mm3 (4.2-5.4)
[2021-08-14 22:47] LABS: Anion Gap 10 (5-15); BUN 19 mg/dL (7-18); BUN/Creat Ratio 10.4 RATIO (10-20); Chloride 99 mmol/L (98-107); Creatinine, Serum 1.82 mg/dL (0.55-1.02); EST Glomerular Filtration Rate 31 mL/min (>60); Est Glom Filt Rate - Afr Amer 37 mL/min (>60); Estimated Creatinine Clearance 25.09 ml/min; Glucose 73 mg/dL (74-106); Potassium 3.3 mmol/L (3.5-5.1); Sodium Level 135 mmol/L (136-145)
--- NOTE | 2021-08-14 22:49 | NURSING ---
patient went to the bathroom but missed the hat while trying to urinate and will try again
[2021-08-14] MEDS: Potassium Chloride Oral Tablet 20 MEQ PO (23:08)
[2021-08-14] MEDS: Potassium Chloride 10mEq/100mL 10 MEQ/100 ML IV.SOLN. 100 MEQ IV BOLUS (23:08)
[2021-08-15 00:08] VITALS: BP 109/72; PULSE 82; RESP 17; O2SAT 98
[2021-08-15] MEDS: 0.9% Normal Saline 1,000 ML 999 ML IV (00:16)
[2021-08-15] MEDS: Potassium Chloride 10mEq/100mL 10 MEQ/100 ML IV.SOLN. 100 MEQ IV BOLUS (00:16)
[2021-08-15 01:21] VITALS: BP 104/63; PULSE 78; RESP 15; O2SAT 99
== END 2021-08-15 01:21 | disposition home or self-care (01) ==
PROVIDERS: Emergency Provider Emergency Medicine; PCP Internal Medicine; Visit Provider Emergency Medicine
DX: E87.6 Hypokalemia (principal); B34.9 Viral infection, unspecified
CPT/HCPCS: 80048; 85025; 87428; 93005; 96365; 96366; 99285; J7030; A4216

== ENCOUNTER 2021-09-22 08:00 | Outpatient (RCR) | payer MEDICARE, MEDICAID, SELFPAY ==
--- NOTE | 2021-09-22 09:10 | BH.SGPN.GN ---
Behaviors/Verbalizations/Mental Status: [] Eye contact is poor. Motor activity is appropriate. Appearance is casual. Speech is Appropriate. Mood is depressed. Affect is flat. Thoughts are linear and logical. No evidence of psychosis. Reviewed daily check in sheet and no reports of suicidal ideations or intent. Client Response/Progress/Benefit: [] Pat participated when prompted. Attentive during group discussions on cognitive behavioral therapy techniques. Daily symptom tracker notes 06/10 for depression and anxiety. Shared with the group that today is her first day in IOP. Briefly introduced herself stating that she is in the program to help with her depression and lack of motivation. I don't want to do anything and I want to feel OK. States excessive sleeping I sleep like a cat. Group empathized and provided support which was beneficial. Group also provided advice and feedback for her first day in the program. Will continue in IOP to maintain safety, increase healthy coping skills, and improve functioning. Narrative Note: []
--- NOTE | 2021-09-22 10:10 | BH.SGPN.GN ---
Behaviors/Verbalizations/Mental Status: [] Client alert and oriented, casually dressed and groomed. Eye contact good. Motor activity appropriate. Speech within normal limits. Affect constricted, mood anxious. Thoughts linear, logical, no signs of hallucinations or delusions. Client Response/Progress/Benefit: []Client responded well to session with it being client's first day in program with taking notes the majority of group and listening attentively to others. Group discussed the benefits of managed anger and anger as a secondary emotion. Client reported she tends to stuff anger down. Client completed anger iceberg worksheet and Identified underlying emotions that contribute to anger including disappointment in herself. Appeared to benefit from increased knowledge of the underlying emotions that impact anger and increased self-awareness of the internal and external consequences of anger. Will continue IOP tx to prevent decompensation, as well as increase the use of healthy coping skills and thought challenging to improve mood stability. Narrative Note: []
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
--- NOTE | 2021-09-24 09:00 | BH.SGPN.GN ---
Behaviors/Verbalizations/Mental Status: []Pt alert and oriented, casually dressed and groomed. Eye contact fair. Motor activity appropriate. Speech within normal limits. Affect flat, mood depressed. Thoughts linear, logical, no signs of hallucinations or delusions. Reviewed pt?s symptom tracker, no risk for suicidal ideation, plan, or intent. Client Response/Progress/Benefit: []Client responded well to session AEB client listening attentively to peers and sharing thoughts and feelings. Client reported mental health postiive as going home yesterday and washing her dishes. Client reported it has been a week since washing the dishes and she did note feeling accomplished after completing the task. Client reported she listened to music while doing dishes which she found to be enjoyable. Client reported stressor is still sleeping like a cat. Client reported she recognizes the napping is hurting her mood and it reinforces depressed symptoms. Seemed to benefit from support from peers. Client is to increase healthy coping skills, improve daily functioning and prevent decompensation. Narrative Note: []
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
--- NOTE | 2021-09-24 11:15 | BH.SGPN.GN ---
Behaviors/Verbalizations/Mental Status: [] Eye contact is poor. Motor activity is appropriate. Appearance is casual. Speech is Appropriate. Mood is depressed. Affect is flat. Thoughts are linear and logical. No evidence of psychosis. Client Response/Progress/Benefit: [] Pt did not participate in group discussions however was attentive during psychoeducation on the Zones of Change which included the comfort zone, learning zone, and danger zone. Attentive during group discussion regarding behaviors, thoughts, and feelings associated with each zone. Participated in group activity in which they developed a plan to take action on something they wished to change. Pt chose to take action on my depression in which he identified a SMART goal to sleep less. Identified supports that he needed as keeping myself busy. Benefited from increased self-aware of zones of change and developing an action plan. Will continue in IOP to maintain safety, increase healthy coping, and improve daily functioning. Narrative Note: []
[2021-09-24 11:48] VITALS: BP 111/84; PULSE 81
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
--- NOTE | 2021-09-24 13:02 | BH.DR.ITP ---
Initial Treatment Plan Patient Information Visit Information: ADMISSION DATE: EXPECTED LOS: 4-6 weeks Problems/Symptoms Problem #1:: Depression Symptom:: Sadness, hopelessness, worthlessness, low energy, decreased concentration, anhedonia, passive thoughts of , low motivation Problem #2:: Anxiety Symptom:: Worry, avoidance
--- NOTE | 2021-09-25 09:00 | BH.SGPN.GN ---
Behaviors/Verbalizations/Mental Status: [] Eye contact is good. Motor activity is appropriate. Appearance is casual. Speech is Appropriate. Mood is depressed. Affect is flat. Thoughts are linear and logical. No evidence of psychosis. Reviewed daily check in sheet and no reports of suicidal ideations or intent. Client Response/Progress/Benefit: [] Pt participated when prompted. Attentive during discussions. Emotion for today is drowsy. Daily symptom tracker notes 5/5 for depression, 4/5 for anxiety, and 2/5 for irritability. Mental health wins include washing dishes which she has not done in awhile. Also reports that she is coloring again. Discussed how coloring benefits her mental health. She is drowsy today however notes that she slept well last evening. States that she has not been able to sleep soundly in several months. She attributes this to a recent medication change. Progress noted in regards to completing tasks around the house and using creative outlets. Also reports improved sleep last night. Benefited from group support, encouragement, and feedback. Will continue in IOP to improve functioning, increase healthy coping, and to prevent decompensation. Narrative Note: []
--- NOTE | 2021-09-25 10:10 | BH.SGPN.GN ---
Behaviors/Verbalizations/Mental Status: []Pt alert and oriented, casually dressed and grooming appears tended to. Eye contact good. Motor activity appropriate. Speech within normal limits. Affect constricted, mood depressed. Thoughts linear, logical, no signs of hallucinations or delusions. Client Response/Progress/Benefit: []Pt engaged throughout AEB taking notes, listening attentively, and providing input throughout. Attentive during psychoeducation and discussed the importance of goal-setting with the group. Group identified potential benefits of having goals to include: they motivate, increase self-confidence, provide a sense of accomplishment, help improve relationships, and provide a sense of purpose. Group also worked together to identify barriers to goal-setting which included; all or nothing thinking, self-doubt, toxic environment, lack of motivation, and unrealistic expectations. Pt identified personal barriers to include lack of motivation and isolation. Benefited from increased awareness of benefits and barriers to goal-setting. Pt will continue in IOP to prevent decompensation, reduce avoidance and sleep, and improve daily functioning. Narrative Note: [] Behaviors/Verbalizations/Mental Status: []Pt alert and oriented, casually dressed and grooming appears tended to. Eye contact good. Motor activity appropriate. Speech within normal limits. Affect constricted, mood depressed. Thoughts linear, logical, no signs of hallucinations or delusions. Client Response/Progress/Benefit: []Pt engaged throughout AEB taking notes, listening attentively, and providing input throughout. Attentive during psychoeducation and discussed the importance of goal-setting with the group. Group identified potential benefits of having goals to include: they motivate, increase self-confidence, provide a sense of accomplishment, help improve relationships, and provide a sense of purpose. Group also worked together to identify barriers to goal-setting which included; all or nothing thinking, self-doubt, toxic environment, lack of motivation, and unrealistic expectations. Pt identified personal barriers to include lack of motivation and isolation. Benefited from increased awareness of benefits and barriers to goal-setting. Pt will continue in IOP to prevent decompensation, reduce avoidance and sleep, and improve daily functioning. Narrative Note: []
--- NOTE | 2021-09-25 11:10 | BH.SGPN.GN ---
Behaviors/Verbalizations/Mental Status: []Client alert and oriented, casually dressed and groomed. Eye contact fair. Motor activity appropriate. Speech within normal limits. Affect constricted, mood depressed and anxious. Thoughts linear, logical, no signs of hallucinations or delusions. Client Response/Progress/Benefit: []Pt was an active participant in group discussions and activities. Engaged in activity. Pt identified a SMART goal for the next week is to: clean the living room by dusting and vacuuming. Pt reported this would benefit her by feeling proud of herself and able to see her accomplishments. Identified procrastination, wanting to take naps, and sitting around as potential barriers to completing this goal. Pt able to identify several solutions that can help overcome identified barriers. Benefited from group by being able to utilize SMART educate to create a goal. Pt to continue IOP to improve daily functioning, increase healthy coping skills and prevent decompensation.
--- NOTE | 2021-09-25 14:25 | BH.MTP ---
Master Treatment Plan - Patient Information Program Physician:: Dr. Rosas Primary Therapist:: Halley Chandler, [facility] - Psychiatric Diagnoses Psychiatric Diagnoses:: 1. Major depressive disorder, recurrent, severe without psychosis. 2. Anxiety disorder, unspecified Diagnosis Code(s):: F33.2 - Estimated LOS Estimated LOS (in weeks):: 6 Problem/Goal #1 - Problem/Goal #1 Stated Goal:: Client will reduce depression and hopelessness due to Major Depressive Disorder through IOP Services. Description of Barriers: Possible barriers to treatment include: distorted thoughts, negative thinking, procrastination, difficulty with follow through, low motivation, and apathy. Functional Impact: Client referred by outpatient therapist due to worsening symptoms of depression for the last two months. Client has hx of depression, anxiety and numerous psychiatric admissions. Completed [facility] IOP program in 2016. Client reported symptoms have been slowly decompensating for the past 2 years after the loss of her mother in 2019. She has limited support with 1 friend she talks to. The patient is depressed enough that she has been unable to function well at home and is having it hard time doing her ADLs. She has been not responding to many medications and at was scheduled for ECT in April 2021 but was unable to do this due to transportation issues. Client endorses depressed mood with crying spells, low motivation, hopelessness, worthlessness, isolation, anhedonia, decreased appetite, sleeping about 15 hours a day, low energy, and poor concentration. Client reported she is a worrier by nature and has lots of anxiety in social situations. Client has passive thoughts of but denies active SI, plan or intention. - Objectives Objective #1 Stated Objective: Client will learn and utilize 2-3 healthy coping strategies to manage depressive symptoms as shown by reduced DSM-5 cross-cutting symptom measure score. Interventions: Through groups and individual therapy, pt will be provided with education on cognitive distortions, mistaken beliefs, and identifying and combating negative self-talk. Therapist will assist pt with getting back into the activities she once enjoyed as well as increasing healthy coping strategies. Discharge Criteria: Pt will have met this goal when identifies use of at least two healthy coping skills and pt?s score on the DSM 5 cross cutting measure for depression has been decreased and per pt?s report daily functioning has improved. Target Date: 11/03/21 Review Date: 10/20/21 Objective #2 Stated Objective: Client will increase social/extracurricular activities to at least one additional activity per week.? Interventions: Therapist will assist client in identifying local activities client can attend that is of interest. Work with client to help overcome barriers to attending additional activity. Discharge Criteria: Client will have achieved this objective when attended at least one additional activity. Target Date: 11/03/21 Review Date: 10/20/21 Problem/Goal #2 - Problem/Goal #2 Stated Goal:: Client will reduce overall frequency, intensity, and duration of the anxiety so that daily functioning is not impaired.? Description of Barriers: Possible barriers to treatment include: distorted thoughts, negative thinking, procrastination, difficulty with follow through, low motivation, and apathy. Functional Impact: Client referred by outpatient therapist due to worsening symptoms of depression for the last two months. Client has hx of depression, anxiety and numerous psychiatric admissions. Completed [facility] IOP program in 2017. Client reported symptoms have been slowly decompensating for the past 2 years after the loss of her mother in 2019. She has limited support with 1 friend she talks to. The patient is depressed enough that she has been unable to function well at home and is having it hard time doing her ADLs. She has been not responding to many medications and at was scheduled for ECT in April 2021 but was unable to do this due to transportation issues. Client endorses depressed mood with crying spells, low motivation, hopelessness, worthlessness, isolation, anhedonia, decreased appetite, sleeping about 15 hours a day, low energy, and poor concentration. Client reported she is a worrier by nature and has lots of anxiety in social situations. Client has passive thoughts of but denies active SI, plan or intention. - Objectives Objective #1 Stated Objective: Client will learn and implement 2-3 calming skills to reduce overall anxiety and manage anxiety symptoms. Interventions: Therapist and group sessions will help client identify physiological warning signs of anxiety, increase awareness of thoughts that increase anxiety, and identify behaviors that reinforce anxious symptoms. Group and individual counseling will teach client calming skills to help manage anxious symptoms. Discharge Criteria: Client will have achieved this goal when can verbalize at least 2 calming skills and reports skills successfully help reduce anxious symptoms. Target Date: 11/03/21 Review Date: 10/20/21 Objective #2 Stated Objective: Pt will decrease anxious symptoms AEB pt?s score on the DSM 5 cross-cutting measure improve pt?s daily functioning. Interventions: Through groups and individual therapy, pt will be provided education about anxiety?s impact on body and common physiological reaction to anxiety. Therapist will teach pt appropriate breathing techniques and build healthy coping skills to manage daily anxieties. Discharge Criteria: Pt will have met this goal when pt?s score on the DSM 5 cross cutting measure for anxiety has been decreased and per pt?s report daily functioning has improved. Target Date: 11/03/21 Review Date: 10/20/21
--- NOTE | 2021-09-25 14:54 | BH.MDN ---
Multi-Disciplinary Note - Note 45-min Individual Time Started:: 08:00 Date: 09/25/21 Purpose of session/treatment goals addressed:: Purpose of session was to identify symptoms and stressors. Additional purpose was to identify treatment goals for IOP. Eye Contact:: Fair Motor Activity:: Restless Appearance:: Casual Speech:: Appropriate Mood:: Anxious, Depressed Affect:: Constricted Thoughts:: Linear, Logical, No evidence of hallucinations/delusions noted Staff Interventions:: thought challenging, psychoeducation on: - cognitive triangle and behavioral action, CBT techniques, rapport building, strengths perspective, treatment planning, goal setting, taught coping skills Client Response:: Client reported she is feeling confused today because she is being forgetful and showed up early to IOP but didn't realize it until she the staff told her. Client stated she is just sick of this. Client reported she sleeps like a cat everyday. Client stated depression and anxiety keeps her stuck in the house. Client connected with psychoeducation about cognitive triangle and behavior activation. Client reported she recognizes she will be waiting a long time to do anything if she keeps waiting until she feels happy or motivated. Client identified she would like to get back into coloring and spending time with her animals. Client created small goals of dusting, sweeping and getting one load of laundry completed this weekend. Client stated when she gets overwhelmed she just shuts down and sleeps because it is numbing. Client also agreed to identify 3 daily wins to increase positive thinking and give self credit. Risks/Concerns:: Client reports passive thoughts of but denies thoughts of actually killing herself. Client denies plan or intention. agreeable to go to nearest emergency room or call crisis if feels unable to maintain safety. Progress Toward Goals/Plan:: No progress noted due to it being pt's second day in IOP. Session focused on identifying treatment goals for IOP which included learning healthy coping skills, decreasing depressed and anxious symptoms and improve daily functioning. Client is to continue IOP to improve daily functioning, increase healthy coping and prevent decompensation. Time Stopped:: 08:45
--- NOTE | 2021-09-29 09:05 | BH.SGPN.GN ---
Behaviors/Verbalizations/Mental Status: [] Eye contact is good. Motor activity is appropriate. Appearance is casual. Speech is Appropriate. Mood is depressed. Affect is flat. Thoughts are linear and logical. No evidence of psychosis. Reviewed daily check in sheet and no reports of suicidal ideations or intent. Client Response/Progress/Benefit: [] Pt participated when prompted. Attentive. Emotion for today is depressed. Daily symptom tracker notes 5/5 for depression and 4/5 for anxiety. Tearful at times. I can't pull myself out of my head ... I just sit and I don't know what to do. Reports overwhelming sadness. Admits that she eats and sleeps as a coping mechanism as well as an escape. No purpose or meaning throughout the day. I tried some skills but they didn't help much. She did color for a period of time. Group empathized with her current state and offered feedback, suggestions, and reframing some of her thinking. Certain peers shared that they were in her situation recently and have noted improvement. Benefited from encouragement, support, and feedback. Limited progress noted however she does report benefit from attending IOP. Will continue in IOP to maintain safety, increase healthy coping, and prevent decompensation. Narrative Note: []
--- NOTE | 2021-09-29 10:10 | BH.SGPN.GN ---
Behaviors/Verbalizations/Mental Status: []Pt alert and oriented, neatly dressed and groomed. Eye contact fair. Motor activity appropriate. Speech within normal limits. Affect constricted, mood depressed. Thoughts linear, logical, no signs of hallucinations or delusions. Client Response/Progress/Benefit: []Pt connected with topic of Anxiety and participated throughout, providing input and taking notes. Attentive during psychoeducation on different anxiety disorders and participated throughout interactive discussion defining anxiety and identifying safety behaviors and physiological symptoms of anxiety. Pt?s safety behaviors included avoidance, canceling plans a lot, and sleeping. Physiological symptoms reported by patient included: shaking, sweating, and difficulty breathing. Benefited from increased awareness and insight on anxiety and its impact. Pt will continue IOP tx to prevent decompensation, reduce negative thinking patterns, and reduce isolation. Narrative Note: []
--- NOTE | 2021-09-29 11:10 | BH.SGPN.GN ---
Behaviors/Verbalizations/Mental Status: []Pt alert and oriented, neatly dressed and groomed. Eye contact good. Motor activity appropriate. Speech within normal limits. Affect constricted, mood depressed. Thoughts linear, logical, no signs of hallucinations or delusions. Client Response/Progress/Benefit: []Pt an active participant AEB providing input to discussion and sharing examples throughout. Reviewed how anxiety impacts thinking. Pt identified personal anxious thoughts such as personalizing, assuming, and over-thinking. Attentive during psychoeducation on mindfulness coping skills and their impact on mental health wellness. The group worked together to brainstorm anxiety reduction strategies. Pt reported they will practice coloring and will do one load of laundry to manage anxiety. Pt seemed to benefit from increased repertoire of anxiety reduction skills. Pt will continue IOP tx to prevent decompensation, reduce isolation and avoidance, and increase healthy coping skills. Narrative Note: []
--- NOTE | 2021-09-30 10:05 | BH.SGPN.GN ---
Behaviors/Verbalizations/Mental Status: [] Eye contact is good. Motor activity is appropriate. Appearance is casual and grooming tended to. Speech is Appropriate. Mood is anxious and depressed. Affect is constricted. Thoughts are linear and logical. No evidence of psychosis Client Response/Progress/Benefit: [] Client receptive of session, actively engaged throughout AEB taking notes and providing input and examples to discussion. Appeared to connect with group topic of cognitive distortions and the impact of thought patterns on mental health, coping behaviors, and relationships. Reflected that client personally tends to struggle with distortions disqualifying the positives with having a hard time accepting other's compliments. Progress noted in client report of improved insight and ability to combat distortions with alternative positive thoughts. Will continue IOP tx to further combat distorted thought patterns, increase utilization of coping skills, and improve mood stability. Narrative Note: []
--- NOTE | 2021-09-30 11:10 | BH.SGPN.GN ---
Behaviors/Verbalizations/Mental Status: [] Eye contact is good. Motor activity is appropriate. Appearance is casual and grooming tended to. Speech is Appropriate. Mood is anxious and depressed. Affect is congruent. Thoughts are linear and logical. No evidence of psychosis Client Response/Progress/Benefit: [] Client responded well to session AEB input and examples during group activity. Group discussed and practiced methods of reframing cognitive distortions. Client participated in identifying cognitive distortions when examples were provided. Client discussed in group the different strategies to overcome the distortions by practicing reframing. Client identified cognitive distortion that they used most often was the shoulds and musts with giving example of putting expectations on herself of what she should be doing. Client made plan to identify and challenge thoughts that contribute to it as homework over the next couple of days. Will continue tx to further promote mood stability, improve self-image, decrease presenting depression, and prevent decompensation. Narrative Note: []
--- NOTE | 2021-09-30 13:36 | BH.MDN ---
Multi-Disciplinary Note - Note 45-min Individual Time Started:: 08:50 Date: 09/30/21 Purpose of session/treatment goals addressed:: Purpose of session was to address goal 1 from MTP. Eye Contact:: Fair Motor Activity:: Restless Appearance:: Casual Speech:: Appropriate Mood:: Depressed Affect:: Congruent Thoughts:: Linear, Logical, No evidence of hallucinations/delusions noted Staff Interventions:: thought challenging, motivational interviewing, CBT techniques, rapport building, strengths perspective, goal setting, taught coping skills Client Response:: Client reported after IOP yesterday she got home and just cried and cried. Client reported she couldn't identify a trigger to significant depressed feelings. Client stated she started to contemplate if she needed to go inpatient because can't do this anymore. Client reported she decided not to try and go inpatient because she would have no one to care for her cat and she wasn't sure she'd meet criteria since not actively suicidal. Client reported she was having passive thoughts of yesterday but denies suicidal plan or intention. Client stated she had to take her anxiety medication to get herself to stop crying and she slept for awhile. Client reported after waking up she felt a little better but still was depressed. She did choose to color after getting up from her nap. Client stated she did not accomplish goals set from last individual session. Client reported all I did was nap and eat. Client receptive to being challenged by therapist. Client reported able to identify positives from weekend of getting out of bed each day, opening her curtains by noon and cleaning her toilet. Client agreed she needs to identify 3 daily positives to decrease her negativity. Risks/Concerns:: Client reports passive thoughts of . Denies active suicidal thoughts, plan or intention to date. Progress Toward Goals/Plan:: Client reports decompensation in her depressed symptoms. Client having increased negative thoughts and passive thoughts of yesterday. Client continuing to nap daily. Client has been using opposite action to color and nap little less on some days. Client would like to explore with [facility] psychiatrist a medication change. Client to continue IOP to increase daily functioning, increase use of healthy coping and prevent decompensation. Time Stopped:: 09:30
--- NOTE | 2021-10-01 09:05 | BH.SGPN.GN ---
Behaviors/Verbalizations/Mental Status: [] Eye contact is good. Motor activity is appropriate. Appearance is casual. Speech is Appropriate. Mood is depressed. Affect is flat. Thoughts are linear and logical. No evidence of psychosis. Reviewed daily check in sheet and no reports of suicidal ideations or intent. Client Response/Progress/Benefit: [] Pt participated at times during group discussion. Daily symptom tracker notes 07/10 for depression and 06/10 for anxiety. Mental health win was I didn't cry as much yesterday. She fell asleep after IOP yesterday after taking a Xanax. Upon waking she got a call from a friend who encouraged her to leave the house. She shopping with this friend and while she didn't want to do it the increased activity and distraction was helpful. Able to identify the benefits of opposite-action and how movement and change can lead to motivation. Seeing benefits to stepping out of comfort zone. Friend offered to spend more time with her over the weekend however pt doesn't want too. Struggles with motivation. Also appears to use Xanax to escape and sleep during the day. Xanax may also contribute to lethargy, isolation, low energy, and low motivation. Benefited from group support, encouragement, and feedback. Will continue in IOP to maintain safety, improve functioning, and increase health coping. Narrative Note: []
--- NOTE | 2021-10-01 10:15 | BH.SGPN.GN ---
Behaviors/Verbalizations/Mental Status: []Pt alert and oriented, casually dressed and groomed. Eye contact good. Motor activity appropriate. Speech within normal limits. Affect constricted, mood dysthymic. Thoughts linear, logical, no signs of hallucinations or delusions. Client Response/Progress/Benefit: []Pt engaged during session AEB Pt contributing thoughts throughout discussion and completing worksheet. Connected with discussion on crisis and how coping with external crises by using unhealthy coping skills could result in a personal crisis. Group reflected on the importance of having awareness of personal warning signs to prevent reaching crisis point. Group identified potential warning signs for crisis and Pt completed the personal warning signs worksheet. Pt identified personal crisis warning signs to include: lack of self-care, isolating, and crying more frequently.?Pt benefited by increasing awareness of what leads to crisis and personal warning signs. Pt will continue IOP tx to reduce isolative behaviors, increase physical and social self-care, and improve daily functioning. ? Narrative Note: []
--- NOTE | 2021-10-01 10:34 | PCM.BH.PN ---
Progress Note Progress Note: History of Present Illness/Interim History: [] Patient is a 56-year-old female with a history of depression, anxiety and numerous psychiatric admissions who is seen in follow-up at the [facility] behavioral health IOP program. I last saw the patient 1 week ago and at that time we discontinued Ambien due to side effects and started her on doxepin. She states that the doxepin has helped her sleep more consistently at 7 hours at night. She is trying to stay awake during the day and is only sleeping 2 hours or less during the day now. She admits to vomiting 2-3 times in the past week. She remains very depressed and feels that her mood may even be worse than it was the week before. She is having still episodes of crying, sadness and passive thoughts of . She endorses hopelessness still. She states that she almost went to the emergency room the other day but has no one to watch her cat so does not want to go in the hospital. She denies suicidal ideation, plan for suicide, homicidal ideation, hallucinations or delusions. Current Psychiatric Medications: [] Abilify 10 mg p.o. daily (x1 year); Wellbutrin XL 450 mg p.o. every morning (on this over 10 years); Effexor XR 75 mg but she takes 3 of these for a total of 225 mg p.o. daily (on this for many years). Doxepin 10 mg p.o. nightly (x1 week); Xanax 0.5 mg (she takes this 1 mg p.o. nightly and once a day if she gets severe anxiety). Xanax is from her outpatient provider. Mental Status Examination: [] The patient is an obese 56-year-old female who appears casually dressed and groomed with good hygiene. She has no psychomotor agitation or retardation. She is ambulatory with a normal gait. She is cooperative during the interview. Eye contact is good and speech is normal rate and rhythm and fluent with no pressure. Mood is depressed. Affect is constricted. Thought process is goal-directed and organized. Thought content: There is evidence of passive thoughts of . There is no evidence of suicidal ideation, plan for suicide, homicidal ideation, hallucinations or delusions. Reality testing is intact. Judgment is intact. Insight is fair. Impulsivity is moderate. Diagnoses: [] 1. Major depressive disorder, recurrent, severe without psychosis 2. Anxiety disorder, unspecified 3. BASIL, CPAP noncompliant 4. M EN 1 syndrome 5. Obesity and status post gastric sleeve in 2006 Plan: [] The patient will continue the IOP program at [facility] as the structure, support, education and group therapy will hopefully prevent worsening of the patient's symptoms which could require hospitalization. She felt safe during the interview and if it anytime she does not feel safe she will let us know or go to the emergency room. The risks, options, possible complications and side effects of the medications were discussed with the patient and she understands and accepts these. Since the patient is still vomiting regularly and is not improving, she agrees to decrease her Wellbutrin XL to 300 mg p.o. daily in the morning. In addition since she has been on the Effexor for so many years at this dose she agrees to decrease her Effexor XR 250 mg p.o. daily. She also agrees to try Trental X 5 mg p.o. daily and prescriptions take sent in for this. Patient is given a note of instructions to help her remember these changes. She understands that the risk of changing the medications are that she will possibly end up in the hospital because anytime we change the medication she could have a worsening of her symptoms. She agrees to call us or go to the emergency room if her symptoms worsen. She is also strongly encouraged to attempt to get TMS, ketamine or ECT when her transportation system improves. She is also encouraged to find someone to watch her cat so that she can go to the emergency room without worrying if she needs to. I will see the patient in follow-up in 1 week. She will continue to follow-up with outpatient providers.
--- NOTE | 2021-10-01 11:10 | BH.SGPN.GN ---
Behaviors/Verbalizations/Mental Status: []Client alert and oriented, casually dressed and groomed. Eye contact good. Motor activity appropriate. Speech within normal limits. Affect congruent. Mood euthymic. Thoughts linear, logical, no signs of hallucinations or delusions. Client Response/Progress/Benefit: []Client responded well to session as evidenced by client listening attentively to others and providing strategies during discussion. Client identified her warning signs for crisis and gained further awareness of earliest warning signs. Client created a crisis action plan to help client better manage warning signs for crisis. Client?s action plan for lakc of self-care included: using opposite action, coloring her hair again, wearing make-up at least once a week, and engage in daily personal hygiene. Client appeared to benefit from creating a crisis action plan and increasing self-awareness. Client to continue IOP tx to improve daily functioning, decrease depression and prevent decompensation.
== END 2021-10-05 23:59 ==
LOC: BHIOP 08:00
PROVIDERS: PCP Internal Medicine; Referring Provider Psychiatry & Neurology Psychiatry; Visit Provider Psychiatry & Neurology Psychiatry
DX: F33.2 Major depressive disorder, recurrent severe without psychotic features (principal); F41.9 Anxiety disorder, unspecified; G47.33 Obstructive sleep apnea (adult) (pediatric); E66.9 Obesity, unspecified; Z98.84 Bariatric surgery status; Z79.899 Other long term (current) drug therapy
CPT/HCPCS: S9480; 90834; 90853

== ENCOUNTER 2021-10-06 07:38 | Outpatient (RCR) | payer MEDICARE, MEDICAID, SELFPAY ==
[2021-10-06 00:42] VITALS: BP 111/84; PULSE 81
--- NOTE | 2021-10-06 09:05 | BH.SGPN.GN ---
Behaviors/Verbalizations/Mental Status: []Pt alert and oriented, neatly dressed and groomed-hair and make up done. Eye contact good. Motor activity appropriate. Speech within normal limits. Affect congruent-smiling, mood content. Thoughts linear, logical, no signs of hallucinations or delusions. Reviewed pt?s symptom tracker, no risk for suicidal ideation, plan, or intent as of 10/06/21 Client Response/Progress/Benefit: []Pt responded well to session, attentive and contributing. Pt reports she is surviving and okay this morning, but pt was smiling and talking about all the wins she had over the weekend. Pt shared since her medication change, pt has felt much less anxious and this helped pt's motivation over the weekend. Pt did laundry, swept, and did her hair and makeup for today. Pt shared even though the medication change was recent, she already feels so much better. Pt appeared to benefit from reflecting on her positives and using healthy coping skills. Pt will continue IOP tx to promote use of healthy coping skills, reduce isolation, and improve daily functioning. Narrative Note: []
--- NOTE | 2021-10-06 10:05 | BH.SGPN.GN ---
Behaviors/Verbalizations/Mental Status: [] Client alert and oriented, neatly dressed and groomed. Eye contact good. Motor activity appropriate. Speech within normal limits. Affect constricted, mood euthymic and anxious. Thoughts linear, logical, no signs of hallucinations or delusions Client Response/Progress/Benefit: [] Client active participate AEB taking notes and nodding head. Client did share participate some during group with giving input. Attentive during psychoeducation on 4 types of conflict styles (Competing, Collaborating, Avoiding, and Accommodating). Worked with group to define conflict and identify how conflict is helpful. With peers identified barriers to addressing or managing conflict which included: fear of upsetting others, fear of the outcome, and lack of confidence. Client believes he uses the cooperative style the most. Appeared to benefit from group due to increase insight and awareness of benefits to conflict, conflict styles, and obstacles to managing conflict. Will continue in IOP to increase overall functioning, increase positive self image, and increase coping utilization. Narrative Note: []
--- NOTE | 2021-10-06 11:07 | BH.SGPN.GN ---
Behaviors/Verbalizations/Mental Status: [] Client alert and oriented, neatly dressed and groomed. Eye contact good. Motor activity appropriate. Speech within normal limits. Affect constricted, mood euthymic. Thoughts linear, logical, no signs of hallucinations or delusions. Client Response/Progress/Benefit: [] Client engaged in session AEB contributing to discussion and engaging in activity. Client did well to review current conflict style and its impact on mental health. Attentive during discussion on strategies for more effectively managing conflict in personal life. Client participated in activity and did well to be assertive and collaborating. Client given handout on fair fighting rules. Client shared she would like to stop stonewalling when faced with conflict to give herself more resolution. Appeared to benefit from gaining strategies to help client better manage conflict. Will continue IOP tx to reduce negative thinking patterns, prevent decompensation, and utilize positive coping skills. Narrative Note: []
--- NOTE | 2021-10-07 09:05 | BH.SGPN.GN ---
Behaviors/Verbalizations/Mental Status: [] Eye contact is good. Motor activity is appropriate. Appearance is casual. Speech is Appropriate. Mood is depressed. Affect is flat. Thoughts are linear and logical. No evidence of psychosis. Reviewed daily check in sheet and no reports of suicidal ideations or intent. Client Response/Progress/Benefit: [] Pt participated at times during group discussion. Attentive. Emotion for today is better. Daily symptom tracker notes 4/5 for depression and 3/5 for anxiety. Mental health win is that the medication changes seem to be helpful. Reports being less depressed and more hopeful than last week. I'm not as depressed as I was. Last week I felt like there was no way out however this week I'm more hopeful. More active, more motivated, and has begun to implement skills. Progress noted per pt report. Will continue in IOP to maintain safety, prevent decompensation, and improve functioning. Narrative Note: []
--- NOTE | 2021-10-07 10:10 | BH.SGPN.GN ---
Behaviors/Verbalizations/Mental Status: []Client alert and oriented, casually dressed and groomed. Eye contact fair. Motor activity appropriate. Speech within normal limits. Affect constricted, mood dysthymic. Thoughts linear, logical, no signs of hallucinations or delusions. Client Response/Progress/Benefit: []Client was a semi-engaged participant AEB contributing to discussion at times, appeared to listen to others, and participated in activity. Connected with the topic of pitfalls and listened to group discussion on barriers that prevent from choosing a healthier path to mental wellness. Group worked together to identify examples of personal pitfalls which included; resentment/anger, stigma, shutting down, low motivation, making excuses, denial, distortions, and unhealthy coping. Client identified ignoring the problem, avoidance, and shutting down as personal pitfalls that have inhibited progress in the past. Client benefited from group as she learned to better identify potential barriers to improving mental health symptoms. Progress hindered by client's difficulty with following through on goals and utilizing skills outside environment. Client will continue IOP tx to challenge negative thought patterns, increase consistent use of healthy coping skills and prevent decompensation.
--- NOTE | 2021-10-07 11:15 | BH.SGPN.GN ---
Behaviors/Verbalizations/Mental Status: []Pt alert and oriented, neatly dressed and groomed. Eye contact good. Motor activity appropriate. Speech within normal limits. Affect constricted, mood irritable. Thoughts linear, logical, no signs of hallucinations or delusions Client Response/Progress/Benefit: []Pt receptive of session, engaged throughout AEB pt actively listening and contributing to discussion, as well as taking notes.? Pt participated in the experiential activity and expressed feeling very frustrated and impatient during the activity. Able to process this during group and pt utilized deep breahting. Pt and group processed how the emotions and perspective of the group impacted the activity. Group worked together to identify different coping skills to help manage pitfalls. Pt identified pitfalls they struggle with and shared wanting to work on being able to be flexible in her thinking when faced with a problem. Pt shared she tends to shut down or avoid which makes the problems worse. Benefited from identifying personal pitfalls and strategies to overcome these pitfalls. Will continue IOP tx to increase distress tolerance, improve mood stability, and further increase motivation. Narrative Note: []
--- NOTE | 2021-10-08 09:00 | BH.SGPN.GN ---
Behaviors/Verbalizations/Mental Status: []Pt alert and oriented, casually dressed and groomed. Eye contact good. Motor activity appropriate. Speech within normal limits. Affect constricted, mood irritable and depressed. Thoughts linear, logical, no signs of hallucinations or delusions. Reviewed pt?s symptom tracker, no risk for suicidal ideation, plan, or intent as of 10/08/21 Client Response/Progress/Benefit: []Pt responded well to session, attentive and receptive to feedback. Pt reports feeling tired and bored this morning. Pt shared she went home and thought about the activity from IOP yesterday and pt realized it was insightful. Pt stated it also reminded pt that she can use her skills rather than give up because I give up a lot when things are hard. Pt shared her stressor today is that she is considering setting a boundary with her friend, but pt is fearful the boundary will result in loss of support. Pt processed this further and recognized that there is no evidence that her friend would be not supportive. Group helped pt identify how to communicate boundaires and needs with her friend which pt appeared to benefit from. Pt will continue IOP tx to reduce avoidance, increase self-confidence, and reduce negative thinking. Narrative Note: []
--- NOTE | 2021-10-08 10:10 | BH.SGPN.GN ---
Behaviors/Verbalizations/Mental Status: []Client alert and oriented, casually dressed and groomed. Eye contact good. Motor activity appropriate. Speech within normal limits. Affect congruent, mood euthymic, slightly anxious. Thoughts linear, logical, no signs of hallucinations or delusions. Client Response/Progress/Benefit: []Client receptive to session AEB contributing to discussion and listening attentively to others. Taking notes. Worked with group to brainstorm the positive and negative aspects of stress on physical and mental health. Group did well to identify the benefits of stress as well as the impact of distress on performance and mental health. Client identified their personal top stressors as: money issues, needing new tires, and needed a new doctor. Client reports when the stress overflows client reacts with isolation, ignoring there is a problem, and procrastination. Client seemed to benefit from increased awareness of current stressors and impact stress has on mental health. Recommended to continue IOP tx to continue use of healthy coping skills, challenge distorted thoughts and prevent decompensation.
--- NOTE | 2021-10-08 11:10 | BH.SGPN.GN ---
Behaviors/Verbalizations/Mental Status: []Client alert and oriented, casually dressed and groomed. Eye contact fair. Motor activity appropriate. Speech within normal limits. Affect constricted. Mood dysthymic. Thoughts linear, logical, no signs of hallucinations or delusions. Client Response/Progress/Benefit: []Client engaged in session AEB listening attentively to others and providing input throughout discussions. Client was an active participant in challenge activity. Client remained attentive during discussion about the 4 A's of managing stress and expressed connecting with the various benefits of each. Shared she would like to work on the skill of accepting her mental health and focusing on what's in her control. Client seemed to benefit from increased awareness of the impact of stress on mental health and increasing repertoire of stress management strategies. Will continue IOP tx to prevent decompensation, continue to promote thought challenging, and healthy coping skills.
--- NOTE | 2021-10-08 11:32 | PCM.BH.PN ---
Progress Note Progress Note: History of Present Illness/Interim History: [] The patient is a 56-year-old female with a history of depression, anxiety and numerous psychiatric admissions who is seen in follow-up at the [facility] behavioral health IOP program. I last saw the patient 1 week ago and at that time we started Trental X 5 mg p.o. daily. In addition we started to wean her Effexor and we decreased her Wellbutrin. The patient states that she has tolerated the weaning of the medications well. She has not experienced any side effects on Trental X and feels that she is already benefiting from taking the new medication. She feels less depressed and denies any hopelessness now. She feels overall her thinking is much less negative although she is still somewhat depressed. She has much less crying also. She feels she is learning valuable skills during the IOP program that can help her deal with her mental health issues. Her sleep remains improved also with the doxepin. She is no longer getting up at night walking around eating as she was with the Ambien. She is still vomiting at times but is trying to decrease this and understands that this was why we decrease the Wellbutrin from 450 to 300 mg every morning. She denies passive thoughts of , suicidal ideation, plan for suicide, homicidal ideation, hallucinations or delusions. Current Psychiatric Medications: [] Abilify 10 mg p.o. daily (x1 year; Trental X 5 mg p.o. daily (x1 week; Wellbutrin XL 300 mg p.o. every morning (on this over 10 years, dose decreased 1 week ago); Effexor XR 150 mg p.o. daily (decreased from 225 mg daily 1 week ago); doxepin 10 mg p.o. nightly; Xanax 0.5 mg (takes 1 mg p.o. nightly and once a day if anxiety gets severe). Mental Status Examination: [] The patient is an obese 56-year-old female who is casually dressed and groomed with good hygiene and is ambulatory with a normal gait. She has no psychomotor agitation or retardation. She is cooperative during the interview. Eye contact is good and speech is normal rate and rhythm and fluent with no pressure. Mood is depressed. Affect is full and normal. Thought process is goal-directed and organized. Thought content: There is no evidence of passive thoughts of , suicidal ideation, plan for suicide, homicidal ideation, hallucinations or delusions. Judgment is intact. Insight is fair. Impulsivity is moderate. albumin Diagnoses: [] 1. Major depressive disorder, recurrent, severe without psychosis 2. Anxiety disorder, unspecified 3. BASIL, CPAP noncompliant 4. M EN 1 syndrome 5. Obesity and status post gastric sleeve in 2006 Plan: [] The patient will continue the IOP program at [facility] as the structure, support, education and group therapy will hopefully prevent worsening of the patient's symptoms which could require hospitalization. She felt safe during the interview and if it anytime she does not feel safe she will let us know or go to the emergency room. The risks, options, possible complications and side effects of the medications were again discussed with the patient and she understands and accepts these. No medication changes were made today. I will see the patient in 2 weeks and at that time if she is doing well we will continue slowly weaning the Effexor XR. She will continue to follow-up with her outpatient providers and I will see the patient in follow-up.
--- NOTE | 2021-10-13 09:00 | BH.SGPN.GN ---
Behaviors/Verbalizations/Mental Status: [] Eye contact is good. Motor activity is appropriate. Appearance is casual. Speech is Appropriate. Mood is depressed. Affect is flat. Thoughts are linear and logical. No evidence of psychosis. Reviewed daily check in sheet and no reports of suicidal ideations or intent. Client Response/Progress/Benefit: [] Pt participated when prompted. Attentive. Emotion for today is blah. Daily symptom tracker notes 4/5 for depression and 2/5 for anxiety. Mental health win was setting up boundaries with friend who she suspected was taking advantage of her. Pt reports regression over the weekend. I didn't do hardly anything. Decreased energy and motivation. Irritated as she was reporting improved mood last week with medication change. I thought things were getting better. Benefited from group support and encouragement. Group normalized her frustrations and gave some examples of utilizing opposite action to increase motivation. Regression noted per pt. Will continue in IOP to maintain safety, prevent decompensation, and to improve functioning. Narrative Note: []
--- NOTE | 2021-10-13 10:10 | BH.SGPN.GN ---
Behaviors/Verbalizations/Mental Status: [] Client alert and oriented, neatly dressed and groomed. Eye contact good. Motor activity appropriate. Speech normal. Affect constricted, mood anxious, Thoughts linear, logical, no signs of hallucinations or delusions. Client Response/Progress/Benefit: [] Client was engaged participant AEB client listening attentively to others and providing input in group. Attentive during psychoeducation on communication styles. Assisted group with identifying barriers of effective communication which included: ?being put down, cognitive distortions, and mood. Client identified they most often use passive communication style. Client reports she uses passive communication to avoid conflict, but feels she does not say no enough and is trying to be more assertive. Benefited from increased awareness of different communication barriers, styles, and the importance of communicating effectively to improve mental wellness. Will continue IOP tx to prevent decompensation, increase positive communication, and improve daily functioning. Narrative Note: []
--- NOTE | 2021-10-13 11:10 | BH.SGPN.GN ---
Behaviors/Verbalizations/Mental Status: [] Client alert and oriented, casually dressed and groomed. Eye contact good. Motor activity appropriate. Speech within normal limits. Affect constricted, mood anxious, Thoughts linear, logical, no signs of hallucinations or delusions Client Response/Progress/Benefit: [] Client responded well to session AEB client listening attentively to others and providing input during group discussion on the pay offs and costs of the different communication styles. Client recognizes negative impact on relationships when she doesn't use healthy communication style. Client did well in the activity to be assertive and ask for feedback. Recognizes if group wasn't assertive in activity, they wouldn't have been successful. Attentive during psychoeducation on interpersonal DBT skill SLICK. Client set a goal to work on being more assertive with goal of having others understand her better. Client seemed to benefit from increasing awareness of healthy strategies to improve communication. Client will continue IOP tx to improve successful communication, regulate emotions, and reduce symptoms of anxiety. Narrative Note: []
--- NOTE | 2021-10-15 09:00 | BH.SGPN.GN ---
Behaviors/Verbalizations/Mental Status: []Pt alert and oriented, casually dressed and appropriately groomed. Eye contact fair. Motor activity appropriate. Speech WNL. Affect constricted, mood depressed. Thoughts linear, logical, no signs of hallucinations or delusions. Reviewed pt?s symptom tracker, no risk for suicidal ideation, plan, or intent. Client Response/Progress/Benefit: []Client respond well to session as evidenced by listening attentively to others and sharing thoughts and feelings. Client reported sense of positive as coloring this morning to help with anxious thoughts because he gives her something else to think about. Client reported additional length of positive as being able to set a boundary with a friend who often ask her to be her taxi. Client stated initially she felt guilty for saying a boundary but now realizes at times it can be helpful for her to remind herself she has the right to say no. Client stated currently stressed that she felt extremely positive after her medication change last week but now has started to feel depressed again and experiencing low motivation. Note agreed with the group that she needs to continue to utilize Max action her skills to help her from decompensating any further. Client to continue IOP to increase healthy coping skills, increase follow through on set goals, and prevent decompensation.
--- NOTE | 2021-10-15 10:08 | BH.SGPN.GN ---
Behaviors/Verbalizations/Mental Status: []Pt alert and oriented, casually dressed and groomed. Eye contact good. Motor activity appropriate. Speech within normal limits. Affect flat, mood depressed. Thoughts linear, logical, no signs of hallucinations or delusions Client Response/Progress/Benefit: []Pt responded well to session AEB listening to peers and providing feedback to the discussion. Pt contributed?throughout group discussion defining fixed mindset and what it can look like. Group discussed how fixed mindset affects mental health and why we use fixed thoughts. Pt participated in experiential activity encouraging pts to find solutions to a seemingly impossible task. Pt identified personal fixed thoughts in session which included ?I?m never going to get my room or house clean.? Pt gained awareness that these thoughts reinforce lack of motivation and procrastination.?Pt appeared to benefit from increased knowledge of fixed mindset and self-awareness of personal fixed thoughts. Will continue IOP tx to reduce isolation and lack of motivation, increase application of coping skills, and improve overall functioning.? Narrative Note: []
--- NOTE | 2021-10-15 11:10 | BH.SGPN.GN ---
Behaviors/Verbalizations/Mental Status: [] Eye contact is poor. Motor activity is appropriate. Appearance is casual. Speech is Appropriate. Mood is depressed. Affect is flat. Thoughts are linear and logical. No evidence of psychosis. Client Response/Progress/Benefit: [] Pt participated only when prompted during group discussions. Participated in their small group and was attentive during group psychoeducation on growth mindset vs fixed mindset. Pt and peers identified and shared examples of growth mindset which included; things can change, situations can improve, feedback whether positive or negative can be helpful, etc. Pt participated in interactive discussion and practiced changing a fixed mindset thought to a growth mindset thought. Benefited from increased awareness and insight of growth mindset and strategies to change from fixed mindset thoughts to growth mindset thoughts. Plan to continue in IOP to maintain safety, prevent decompensation, and improve daily functioning. Narrative Note: []
--- NOTE | 2021-10-16 09:00 | BH.SGPN.GN ---
Behaviors/Verbalizations/Mental Status: [] Eye contact is good. Motor activity is appropriate. Appearance is casual. Speech is Appropriate. Mood is depressed. Affect is flat. Thoughts are linear and logical. No evidence of psychosis. Reviewed daily check in sheet and no reports of suicidal ideations or intent. Client Response/Progress/Benefit: [] Pt participated when prompted. Attentive. Daily symptom tracker notes 4/5 for depression and 2/5 for anxiety. Emotion for today is OK mood. She was unable to identify any mental health wins yesterday. After leaving [facility] she took a nap and for the most part laid around all afternoon. This impacted her sleep at night. Admits that she sleeps to escape and that sleep is an unhealthy coping skill. Group encouraged her to look at yesterday and identify strategies or skills that she could have implemented to break depressive cycle and unhealthy coping. She was able to identify opposite action and coloring as two skills that might have led to improved mood and decreased unhealthy coping. She has a goal this weekend to cook a meal for herself. Limited progress noted. Benefited from group support, encouragement, and feedback. Will continue in [facility] to maintain safety, prevent decompensation, improve functioning, and increase healthy coping. Narrative Note: []
--- NOTE | 2021-10-16 10:10 | BH.SGPN.GN ---
Behaviors/Verbalizations/Mental Status: []Client alert and oriented, casual dress, hygiene tended to. Eye fair. Motor activity appropriate. Speech within normal limits. Affect constricted. mood dysthymic. Thoughts linear, logical, no signs of hallucinations or delusions. Client Response/Progress/Benefit: []Pt mostly passive participant. Pt appeared to listen attentively to peers, did not provide feedback during large group discussion. Pt worked with the group during discussion of the costs of resisting change and the benefits of adapting to adversity. Attentive during psychoeducation on various garces factors in developing personal resilience. Pt worked in small group at times helping group with identifying benefits of each factor in fostering resilience. Pt stated she struggles most with the resilience factor of moving toward goals. Recognizes this keeps her from doing anything and makes her feel like my wheels are spinning. Pt seemed to benefit from increasing awareness of strategies to increase personal resilience and the impacts of resilience on managing mental health sx. Will continue IOP tx to promote consistent use of healthy coping skills, improve follow through on goals and prevent decompensation. Narrative Note: []
--- NOTE | 2021-10-16 11:10 | BH.SGPN.GN ---
Behaviors/Verbalizations/Mental Status: []Client alert and oriented, casually dressed and groomed. Eye contact fair. Motor activity appropriate. Speech within normal. Affect constricted. Mood dysthymic. Thoughts linear, logical, no signs of hallucinations or delusions. Client Response/Progress/Benefit: []Client semi-engaged participant as evidenced by client engaged in activity and appeared to listen attentively to others, however providing limited input throughout discussion. Client engaged in group activity. Able to connect how the group utilized the 10 resiliency components to be successful in challenge activity. Client reported she would like to work on resiliency component of moving towards goal and taking decisive action. Client stated she will take action by accomplishing goal of getting bags of clothes out of house and drop the bags off at [employer] by end of next week. Client appeared to benefit from increasing insight to ways in which client can improve resilience to adversity and daily stressors. Client to continue IOP tx to promote consistent use of healthy coping skills, increase follow through on goals and prevent decompensation.
--- NOTE | 2021-10-20 09:00 | BH.SGPN.GN ---
Behaviors/Verbalizations/Mental Status: []Eye contact is good. Motor activity is appropriate. Appearance is casual. Speech is Appropriate. Mood is depressed. Affect is constricted. Thoughts are linear and logical. No evidence of psychosis. Reviewed daily check in sheet and no reports of suicidal ideations or intent. Client Response/Progress/Benefit: []Client respond well to session as evidenced by listening attentively to others and sharing thoughts and feelings. Client reported mental health positive as getting one of the bags of clothing from her house to her car this morning. Client stated she plans to get one to two bags of clothes to her car today because her goal is to get two bags out today. Client stated additional mental health positive as going grocery shopping yesterday. Client reported mental health stressor as continuing to feel unmotivated and depressed. Client progress hindered by lack of follow through on goals set in individual sessions and not applying skills consistently. Client to continue IOP to increase consistent use of skills, challenge distorted thoughts and prevent decompensation. Narrative Note: []
--- NOTE | 2021-10-20 10:05 | BH.SGPN.GN ---
Behaviors/Verbalizations/Mental Status: []Pt alert and oriented, neatly dressed and groomed. Eye contact good. Motor activity appropriate. Speech within normal limits. Affect flat, mood dysthymic. Thoughts linear, logical, no signs of hallucinations or delusions. Client Response/Progress/Benefit: []Pt was an active participant in group discussion. Attentive during psychoeducation and participated in group activity. Participated in interactive group discussion on internal and external barriers to mental health progress. Group identified examples of internal barriers as; negative thoughts, anxiety, cognitive distortions, and past experiences. Pt taiwo a picture of their current reality which pt described as me climbing up a mountain and I'm taking on too much but don't ask for help. Pt also taiwo their desired reality which pt described as being able to set boundaries and climb the mountain without it feeling overwhelming. Benefited from increased awareness of current barriers to progress as well as current/desired realities. Pt continues to struggle with lack of motivation and self-reported lack of follow through with IOP goals. Pt will continue IOP tx to combat distorted thought patterns, reduce avoidance and lack of motivation, and improve self-care. Narrative Note: []
--- NOTE | 2021-10-20 14:14 | BH.MDN ---
Multi-Disciplinary Note - Note 30-min Individual Time Started:: 11:05 Date: 10/20/21 Purpose of session/treatment goals addressed:: Purpose of session was to address goals 1 and 2 from [facility]. Eye Contact:: Fair Motor Activity:: Appropriate Appearance:: Casual Speech:: Appropriate Mood:: Dysthymic Affect:: Constricted Thoughts:: Linear, Logical, No evidence of hallucinations/delusions noted Staff Interventions:: thought challenging, motivational interviewing, CBT techniques, strengths perspective, goal setting, other - routine/structure Client Response:: Client reported she did start her goal of getting her 6 bags of donation clothes out of her house by taking one bag to her car this morning. Client stated she plans to take 1 to 2 more bags of clothes out today. Client stated she still plans to accomplish this goal by . Client reported she is apprehensive about going to the [employer] tomorrow for art group. Client agreed with therapist if she continues to stay home and not do anything she will stay depressed. Client worked with therapist to identify benefits of getting out of the house and increasing social support. Client expressed continued grief from losing her mother two years ago. Client stated she has never allowed herself to process her mother's . Client tearful when discussing the loss and drama that happened within her family after her mom's passing. Client reported she would be open to attending a grief support group. Client stated after her father's passing she did attend grief support group with her family, which she found to be helpful. Client reported she did not accomplish goals of cooking in her crockpot this weekend or messaging her current doctor asking for record to be sent to potential new doctor. Client stated she mostly just colored and sat around. Client reported she has been coloring more instead of napping. Client stated coloring does help her anxious thoughts slow down and finds coloring enjoying. Client agreed having a daily structure/routine could help increase activity each day. Client stated she would like to get up in the morning sitting in chair to wake up, get dressed, open curtains, go complete an errand outside the house, eat lunch/watch tv for up to an hour and pick one chore to complete before watches another tv show. Client reported tomorrow she plans to cook chicken in her crock pot. Client stated she will put on the meal before she attends [employer] tomorrow. Client stated she does not need therapist to meet her at [employer], that she believes she can do it on her own. Risks/Concerns:: Denies active suicidal ideation, plan or intention to date. Progress Toward Goals/Plan:: Client progress variable. Client has decrease in sleeping throughout the day and has started to color again. Client has struggled with following through with goals set in sessions. Client's lack of follow through seems to be barrier to treatment progress. Client spends most weekends sitting in her apartment watching tv. Client's continued isolative behaviors also seems to be barrier to treatment progress. Plan is to continue IOP to increase follow through on goals, challenge negative thinking and increase socialization. Time Stopped:: 11:45
--- NOTE | 2021-10-22 09:00 | BH.SGPN.GN ---
Behaviors/Verbalizations/Mental Status: []Eye contact is good. Motor activity is appropriate. Appearance is casual. Speech is Appropriate. Mood is depressed and irritable. Affect is flat. Thoughts are linear and logical. No evidence of psychosis. Reviewed daily check in sheet and no reports of suicidal ideations or intent. Client Response/Progress/Benefit: [] Pt responded well to session, quiet but participating when prompted. Pt reports feeling irritated this morning as pt feels one of her friends is taking advantage of pt. Pt has talked about this friend before and how pt has not been able to set lasting boundaries which triggers resentment for pt. Licensed Therapist offered some ideas to help set boundaries which pt appeared to benefit from. Pt's mental health win today is that she went to the [employer] yesterday which gave pt something to look forward to and socialization. Pt enjoyed it and plans to go back in the near future. Pt continues to struggle with lack of motivation, difficulty challenging distortions, and lack of energy. Pt will continue IOP tx to increase motivation and follow through, reduce negative self-talk, and gain healthy supports. Narrative Note: []
--- NOTE | 2021-10-22 10:05 | BH.SGPN.GN ---
Behaviors/Verbalizations/Mental Status: [] Eye contact is good. Motor activity is appropriate. Appearance is casual. Speech is Appropriate. Mood is depressed. Affect is flat. Thoughts are linear and logical. No evidence of psychosis. Client Response/Progress/Benefit: [] Pt was an active participant in group discussion. Attentive during psychoeducation on cognitive distortions, the CBT triangle, and automatic thoughts. This group was very information heavy as therapist introduced 10 common cognitive distortions which included; All or Nothing Thinking, Overgeneralization, Mental Filter, Disqualifying the Positives, Jumping to Conclusions, Emotional Reasoning, Labeling, Catastrophizing, Shoulds/Musts, and Personalization. Pt was attentive as peers contributed examples of each distortion. Benefited from increased knowledge and insight into cognitive distortions and how they can impact mental health. Will continue in IOP to maintain safety, prevent decompensation, and improve functioning. Narrative Note: []
--- NOTE | 2021-10-22 12:27 | PCM.BH.PN_ITS ---
Progress Note Progress Note: History of Present Illness/Interim History: [] The patient is a 56-year-old female with a history of depression, anxiety and numerous psychiatric admissions who is seen in follow-up at the [facility] behavioral health IOP program. I last saw the patient 2 weeks ago and at that time her Effexor was decreased and the start of a weaning and Trintellix was added. Her Wellbutrin was also decreased at that time. The patient has tolerated the weaning process well. She denies any emesis in the past 2 weeks and is trying to learn to not vomit even if she feels too full. She is trying to become more aware of her eating so she does not eat beyond the feeling of satiation. She feels she has become depressed again after initially responding well to the starting dose of Trental X. She is enjoying the IOP program and feels she is learning valuable skills to help with her mental health issues. She denies any passive thoughts of and denies any suicidal ideation. Sleep remains improved on the doxepin dose. She has been able to eliminate her 1 mg dose of Xanax at at bedtime that used to help with sleep because she no longer needs it. She denies passive thoughts of , suicidal ideation, plan for suicide, homicidal ideation, hallucinations or delusions. The patient complained of hoarseness of her voice during the interview which started several weeks ago and she feels may be due to frequent vomiting. Current Psychiatric Medications: [] Abilify 10 mg p.o. daily (x1 year);Trintillex 5 mg p.o. daily (x3 weeks); Wellbutrin XL 300 mg p.o. every morning (dose decreased 3 weeks ago); Effexor XR 150 mg p.o. daily (dose decreased 3 weeks ago); doxepin 10 mg p.o. nightly; Xanax 0.5 mg taken once a day only as needed for severe anxiety. Mental Status Examination: [] The patient is an obese 56-year-old female who is casually dressed and groomed with good hygiene and is ambulatory with a normal gait. She has no psychomotor agitation or retardation. She is cooperative during the interview. Eye contact is good and speech is normal rate and rhythm and fluent with no pressure. Mood is depressed. Affect is constricted. Thought process is goal-directed and organized. Thought content: There is no evidence of passive thoughts of , suicidal ideation, plan for suicide, homicidal ideation, hallucinations or delusions. Judgment is intact. Insight is fair. Impulsivity is moderate. Diagnoses: [] 1. Major depressive disorder, recurrent, severe without psychosis 2. Anxiety disorder, NOS 3. BASIL, CPAP noncompliant 4. M EN 1 syndrome 5. Obesity and status post gastric sleeve in 2006 Plan: [] The patient will continue the IOP program at [facility] as the structure, support, education and group therapy will hopefully prevent worsening of the patient's symptoms which could require hospitalization. She felt safe during the interview and if it anytime she does not feel safe she will let us know or go to the emergency room. The risks, options, possible complications and side effects of the medications and especially the weaning of the medications were again discussed with the patient and she understands and accepts these. A TSH was ordered due to the patient complaining of hoarseness of her voice. In addition the Effexor XR was decreased to 75 mg p.o. daily and the Trental X will be increased to 10 mg p.o. daily. The rest of her medication doses will remain as they are now. Prescriptions were sent in for the above 2 meds that were changed. I will see the patient in follow-up in 2 weeks and she will continue to follow-up with her outpatient providers.
--- NOTE | 2021-10-23 09:05 | BH.SGPN.GN ---
Behaviors/Verbalizations/Mental Status: [] Eye contact is good. Motor activity is appropriate. Appearance is casual. Speech is Appropriate. Mood is depressed. Affect is flat. Thoughts are linear and logical. No evidence of psychosis. Reviewed daily check in sheet and no reports of suicidal ideations or intent. Client Response/Progress/Benefit: [] Pt participated when prompted. Attentive. Emotion for today is tired. When asked about any mental health wins she stated no wins yesterday. She briefly discussed stressors regarding a friendship stating there are limited benefits from our relationship. Gives one word answers to open-ended questions and presents as being depressed and uninterested in processing or discussing current stressors, struggles, or mood. Group provided feedback and support which was beneficial. Limited progress noted. Will continue in IOP to maintain safety, stabilize mood, and prevent decompensation. Narrative Note: []
--- NOTE | 2021-10-23 10:15 | BH.SGPN.GN ---
Behaviors/Verbalizations/Mental Status: []Pt alert and oriented, casually dressed and groomed. Eye contact good. Motor activity appropriate. Speech within normal limits. Affect constricted, mood depressed. Thoughts linear, logical, no signs of hallucinations or delusions. Client Response/Progress/Benefit: []Pt responded well to session AEB taking notes throughout and listening attentively to others. Pt was attentive throughout group activity identifying famous individuals and how they overcame failure to be successful. Pt helped group identify how fear of failure can impact mental health and relationships. Pt personally identified it leads to not trying and avoidance. Pt participated in experiential activity, and pt struggled with memory and asking for help from peers. Pt was encouraged to practice assertive communication. Appeared to benefit from increased knowledge of fear of failure. Pt continues to struggle with expressing her needs and self-reports lack of motivation and inconsistent application of coping skills. Will continue IOP tx to reduce avoidance and isolation, combat distortions, and increase application of coping skills. Narrative Note: []
--- NOTE | 2021-10-23 11:15 | BH.SGPN.GN ---
Behaviors/Verbalizations/Mental Status: []Pt alert and oriented, neatly dressed and groomed. Eye contact good. Motor activity appropriate. Speech within normal limits. Affect flat, mood dysthymic. Thoughts linear, logical, no signs of hallucinations or delusions. Client Response/Progress/Benefit: []Pt responded somewhat well to session, engaged in the experiential activity but appeared to struggle with memory and self-doubt. Pt reported fear of failure has kept pt from meeting new people. Pt completed fear of failure worksheet and was able to identify thoughts and behaviors that reinforce personal fear of failure including cognitive distortions like catastrophizing and mental filter, self-judgement, and avoidance. Pt participated in small group discussion regarding strategies to overcome fear of failure. Identified wanting to work on taking deep breaths and using opposite action to overcome fear of failure. Appeared to benefit from increased knowledge of strategies to combat fear of failure and gaining self-awareness. Pt will continue IOP tx to reduce avoidance and isolation, increase social connections, and improve daily functioning. Narrative Note: []
--- NOTE | 2021-10-27 09:05 | BH.SGPN.GN ---
Behaviors/Verbalizations/Mental Status: [] Eye contact is good. Motor activity is appropriate. Appearance is casual. Speech is Appropriate. Mood is euthymic. Affect is full. Thoughts are linear and logical. No evidence of psychosis. Reviewed daily check in sheet and no reports of suicidal ideations or intent. Client Response/Progress/Benefit: [] Pt participated at times during the group discussion. Attentive. Provided appropriate feedback. Daily symptom tracker notes 5 for depression and /5 for anxiety. Emotion for today is relieved. Mental health wins include accomplishing a goal which was set a couple weeks ago. Pt's goal was to move 5 bags of clothes from her apartment to her care which she completed. Shared why this was a mental health win and that the bags of clothes have been in her apartment for almost 2 years. Once she was motivated she went beyond her goal and took the bag to [facility] to donate. She then proceeded to clean up and organize part of her apartment. Reports feeling proud and accomplished. Increased motivation over the weekend. With assistance from group she was able to identify what skills she implemented over the weekend. Progress noted per pt report. Benefited from group support, encouragement, and feedback. Will continue in IOP to maintain safety, increase health coping, and improve functioning. Narrative Note: []
--- NOTE | 2021-10-27 10:05 | BH.SGPN.GN ---
Behaviors/Verbalizations/Mental Status: []Pt alert and oriented, neatly dressed and groomed. Eye contact good. Motor activity appropriate. Speech within normal limits. Affect constricted, mood dysthymic. Thoughts linear, logical, no signs of hallucinations or delusions. Client Response/Progress/Benefit: []Pt participated at times during the group discussion. Attentive during psychoeducation. Participated in experiential activity. Pt took notes during interactive discussion on the consequences of unhealthy expression of emotions.? Attentive while peers identified several consequences which included; pushing people away, ?exploding,? and losing relationships. Attentive during interactive discussion on common potholes to effectively communicating which included; shutting down, assuming, fear of judgement, and not knowing what to say. Pt reported personally struggling with shutting down and avoidance impacting her ability to communicate. ?Pt was able to relate and make connections between the experiential activity and the overall topic. Benefited from increased awareness of how stress and emotions can impact one's ability to communicate. Will continue in IOP further reduce depression, increase self-induced motivation, and improve self-care. ? Narrative Note: []
--- NOTE | 2021-10-27 14:07 | BH.MDN_ITS ---
Multi-Disciplinary Note - Note 45-min Individual Time Started:: 11:15 Date: 10/27/21 Purpose of session/treatment goals addressed:: Purpose of session was to address goals 1 and 2 from [facility]. Eye Contact:: Good Motor Activity:: Appropriate Appearance:: Casual Speech:: Appropriate Mood:: Euthymic Affect:: Full, Congruent Thoughts:: Linear, Logical, No evidence of hallucinations/delusions noted Staff Interventions:: CBT techniques, discharge planning, strengths perspective, goal setting Client Response:: Client reported she accomplished goal she has had for the last several weeks to take the 6 bags of clothes from her bed to donate at [facility]. Client stated she decided on Wednesday she was going to get it all done that day. Client reported she took all the bags out and went to [facility]. Client stated once she got home she felt more motivated to clean further. Client reported feels relief that she was able to accomplish the goal. Client stated I thought this goal was a lot harder than it actually was. Client reported she wants to continue to work on cleaning her apartment and get rid of things she doesn't use anymore. Client stated she already reached out to someone about giving them scrap book supplies. Client stated she thinks her medication increase is helping her mood recently. Client reported plans to attend [employer] art group tomorrow. Client reported socialization last week was really helpful and is looking forward to going back. Client stated she also wants to reach out to the [employer] she used to attend to see if she can return to women's group on Wednesday's. Client reported she is starting to see the importance of social connection and getting out of her apartment. Client stated feeling anxious about being done with [facility] soon. Client stated having accountability and socialization has been extremely helpful. Client agreed focusing on creating a structure/routine for when she graduates from [facility] could be helpful. Client stated she has thought about volunteering to decrease isolation and increase chance of making friends. Client stated goal for week is to talk to [employer] about volunteer options and to contact [employer] about attending evening group. Risks/Concerns:: Denies suicidal ideation, plan or intention to date. future focused. Progress Toward Goals/Plan:: Client progress noted AEB client completing goal she had set several weeks ago. Client reporting improved mood, increased motivation, and improved sleep. Client has struggled with consistent use of healthy coping skills and difficulty staying motivated throughout time in IOP. Plan is for client to discharge week of November 10 to give time for client to consistently practice skills and maintain gains made recently. Time Stopped:: 11:57
--- NOTE | 2021-10-29 09:00 | BH.SGPN.GN ---
Behaviors/Verbalizations/Mental Status: [] Eye contact is good. Motor activity is appropriate. Appearance is casual. Speech is Appropriate. Mood is depressed. Affect is flat. Thoughts are linear and logical. No evidence of psychosis. Client Response/Progress/Benefit: [] Pt participated when prompted. Attentive. Emotion for today is ?tired?. Pt reports poor sleep last evening and increased anxiety this AM. Mental health win was that she visited [email or web address] yesterday and participated in peer support groups and activities. She has a goal in IOP to increase social activities. She reports that it was beneficial. Insight on how this positively impacted her day. She admits that it was a struggle as most things are due to her depression however, she utilized opposite-action. Progress noted per pt report. Benefited from group support, encouragement, and feedback. Will continue in IOP to maintain safety, increase healthy coping, and improve functioning. Narrative Note: []
--- NOTE | 2021-10-29 10:10 | BH.SGPN.GN ---
Behaviors/Verbalizations/Mental Status: []Pt alert and oriented, casually dressed and groomed. Eye contact good. Motor activity appropriate. Speech within normal limits. Affect constricted, mood anxious. Thoughts linear, logical, no signs of hallucinations or delusions. Client Response/Progress/Benefit: []Pt was a mostly passive?participant in group discussion, but took notes and connected with peers. Group worked together to identify benefits of healthy relationships which include; improves mental health, encouragement, motivation, accountability, validation, connection, someone to share experiences with, and personal growth. Group identified factors that lead to unhealthy relationships which included; co-dependence, gaslighting, not addressing issues, name-calling, and doing only what others want.?Pt?s personal factors were stonewalling and not addressing issues?Actively participated in group experiential activity and expressed ideas to group. Benefited from increased insight and awareness of benefits of healthy relationships and factors that contribute to unhealthy relationships. Will continue in IOP tx to promote the use of healthy coping skills, further increase motivation, and combat distortions. ? Narrative Note: []
--- NOTE | 2021-10-30 09:00 | BH.SGPN.GN ---
Behaviors/Verbalizations/Mental Status: [] Client alert and oriented, casually dressed and groomed. Eye contact good. Motor activity appropriate. Speech within normal limits. Affect constricted, mood euthymic, Thoughts linear, logical, no signs of hallucinations or delusions. Reviewed client?s symptom tracker, no risk for suicidal ideation, plan, or intent as of 10/30/21 Client Response/Progress/Benefit: [] Client responded well to group by actively participating throughout group. Client shared that she feels like hse has been more productive lately and has been able to get rid of a lot of clutter in her house by donating items to [employer]. Client indicated that she is having trouble sleeping lately but feels it has to do with her medication changes.Client seemed to benefit from feedback from group members on strategies to aid in helping her fall asleep. She will continue IOP tx to increase positive self talk and increase overall functioning. Narrative Note: []
--- NOTE | 2021-10-30 10:00 | BH.SGPN.GN ---
Behaviors/Verbalizations/Mental Status: [] Eye contact is good. Motor activity is appropriate. Appearance is casual. Speech is Appropriate. Mood is euthymic. Affect is congruent. Thoughts are linear and logical. No evidence of psychosis. Client Response/Progress/Benefit: [] Client was an active participant during interactive group discussions. Attentive during psychoeducation on the six types of boundaries (physical, emotional, intellectual, sexual, time, and material) AEB note-taking. Along with peers contributed to interactive discussion on defining what a boundary is in mental health. Client along with peers identified challenges to setting boundaries which included; fear of other's response, guilt, fear of rejection, fear of disappointing the other person, etc. Client along with peers identified the benefits to setting boundaries such as feeling empowered, decreased stress, and increased time for self-care. Client shared a time when her boundary was violated of her time when [facility] her for 2 hours. Group discussed the mental health benefits to establishing boundaries at work, school, and home. Client benefited from increased awareness and insight on the importance/benefit to setting health boundaries. Will continue in IOP to increase motivation, increase coping skills and improve functioning. Narrative Note: []
--- NOTE | 2021-10-30 11:00 | BH.SGPN.GN ---
Behaviors/Verbalizations/Mental Status: [] Client alert and oriented, casually dressed and appropriately groomed. Eye contact good. Motor activity normal. Speech within normal limits. Affect congruent, mood anxious and euthymic. Thoughts linear and intact. no signs of delusions or hallucinations Client Response/Progress/Benefit: [] Client responded well to session AEB listening attentively to peers, providing input, as well as taking notes throughout. Client contributed on psychoeducation on different boundary setting styles. Reports connecting most porous styles of boundary setting, identifying difficulties saying ?no? to others. Participated in small group discussion brainstorming various strategies for improving healthy boundary setting. Seemed to benefit from increased awareness of how different boundary styles can impact mental health. Will continue IOP tx to increase consistent application of skills, increase self-care, and increase overall functioning. Narrative Note: []
--- NOTE | 2021-11-03 09:15 | BH.COMM ---
Communication Note - Communication with Client Communication Note: Pt called this AM stating that she tested positive for COVID and will be out this week.
== END 2021-11-05 23:59 ==
LOC: BHIOP 07:38
PROVIDERS: PCP Internal Medicine; Referring Provider Psychiatry & Neurology Psychiatry; Visit Provider Psychiatry & Neurology Psychiatry
DX: F33.2 Major depressive disorder, recurrent severe without psychotic features (principal); F41.9 Anxiety disorder, unspecified; E66.9 Obesity, unspecified; G47.33 Obstructive sleep apnea (adult) (pediatric); Z79.899 Other long term (current) drug therapy; Z98.84 Bariatric surgery status
CPT/HCPCS: S9480; 90832; 90834; 90853

== ENCOUNTER → 2021-10-30 | Outpatient (CLI) | payer MEDICARE, MEDICAID, SELFPAY ==
[2021-10-30 13:27] LABS: T4 Total, Thyroxin 12.7 ug/dL (4.8-13.9)
== END | disposition home or self-care (01) ==
LOC: LAB 12:11
PROVIDERS: PCP Internal Medicine; Referring Provider Psychiatry & Neurology Psychiatry; Visit Provider Psychiatry & Neurology Psychiatry
DX: E55.9 Vitamin D deficiency, unspecified (principal)
CPT/HCPCS: 36415; 84436; 84443

== ENCOUNTER 2021-11-06 07:41 | Outpatient (RCR) | payer MEDICARE, MEDICAID, SELFPAY ==
[2021-11-06 00:39] VITALS: BP 111/84; PULSE 81
--- NOTE | 2021-11-12 09:00 | BH.COMM ---
Communication Note - Communication with Client Communication Note: Pt was scheduled to return to IOP today after missing last week with [facility]. Called this AM stating that she was still fatigued. Encouraged pt to remain home till she was symptom free.
--- NOTE | 2021-11-13 09:05 | BH.SGPN.GN ---
Behaviors/Verbalizations/Mental Status: [] Client alert and oriented, casually dressed and groomed. Eye contact good. Motor activity appropriate. Speech within normal limits. Affect congruent, mood euthymic. Thoughts linear, logical, no signs of hallucinations or delusions. Reviewed client?s symptom tracker, no risk for suicidal ideation, plan, or intent as of 11/13/21 Client Response/Progress/Benefit: [] Client responded well to group by actively participating throughout group. Reported that her emotion today was content Client discussed how she felt stressed and isolated while being sick for past two weeks, but indicated she was able to find ways to utilize supports. Client shared her how she is happy to be feeling good again. Client seemed to benefit from feedback from group members and validation. She will continue IOP tx to increase coping skills, reduced symptoms of anxiety, and increase overall functioning. Narrative Note: []
--- NOTE | 2021-11-13 11:10 | BH.SGPN.GN ---
Behaviors/Verbalizations/Mental Status: []Pt alert and oriented, casually dressed and groomed. Eye contact good. Motor activity appropriate. Speech within normal limits. Affect constricted, mood content. Thoughts linear, logical, no signs of hallucinations or delusions. Client Response/Progress/Benefit: []Pt was an active participant in group discussion. Attentive during psychoeducation on the Zones of Change which included the comfort zone, learning zone, and danger zone. Pt along with peers participated in interactive discussion regarding behaviors, thoughts, and feelings associated with each zone. Participated in group activity in which they developed a plan to take action on something they wished to change. Pt chose to take action on reducing procrastination in which pt identified a SMART goal to ?doing a task a day as soon as she thinks of it.? Identified supports that pt needed as setting a reminder and reminding self of wanting to be more minimalistic. Benefited from increased self-aware of zones of change and developing an action plan. Pt missed a week due to having COVID. Will continue in IOP to reduce procrastination and avoidance, increase social support, and further improve functioning. Narrative Note: []
--- NOTE | 2021-11-14 09:05 | BH.SGPN.GN ---
Behaviors/Verbalizations/Mental Status: [] Eye contact is good. Motor activity is appropriate. Appearance is casual. Speech is Appropriate. Mood is euthymic. Affect is congruent. Thoughts are linear and logical. No evidence of psychosis. Reviewed daily check in sheet and no reports of suicidal ideations or intent. Client Response/Progress/Benefit: [] Pt participated at times during the group discussion. Attentive. Daily symptom tracker notes 04/12 for depression. Pt?s check-in was brief as usual. Reports that he ?had good sleep? last night which is very important for her mental health. She reports decreased depression and believes that IOP and medication changes have been helpful, however took a couple weeks to take effect. She completed some responsibilities around her place and is more active. Progress noted per pt report. Benefited from group support, encouragement, and feedback. Will continue in IOP to maintain gains, increase healthy coping, and improve functioning. Narrative Note: []
--- NOTE | 2021-11-14 11:10 | BH.SGPN.GN ---
Behaviors/Verbalizations/Mental Status: []Pt alert and oriented, casually dressed and groomed. Eye contact good. Motor activity appropriate. Speech within normal limits. Affect constricted, mood slightly irritable, but optimistic. Thoughts linear, logical, no signs of hallucinations or delusions. Client Response/Progress/Benefit: []Pt receptive of session, engaged throughout AEB pt actively listening and contributing to discussion, as well as taking notes.? Pt participated in the experiential activity and did well to communicate ideas with peers and manage emotions. Pt identified she felt frustrated and anxious, but pt felt like she managed her emotions better than she had in the past. Pt and group processed how the emotions and perspective of the group impacted the activity. Group worked together to identify different coping skills to help manage pitfalls. Pt identified pitfalls they struggle with such as shutting down, avoiding, and procrastinating. Pt plans to work on these pitfalls by continuing to practice self-awareness and catch herself when using negative self-talk. Benefited from identifying personal pitfalls and strategies to overcome these pitfalls. Will continue IOP tx to reinforce healthy coping skills, further reduce isolation, and improve daily functioning. ? Narrative Note: []
--- NOTE | 2021-11-17 09:00 | BH.SGPN.GN ---
Behaviors/Verbalizations/Mental Status: []Pt alert and oriented, neatly dressed and groomed. Eye contact good. Motor activity appropriate. Speech within normal limits. Affect constricted, mood euthymic. Thoughts linear, logical, no signs of hallucinations or delusions. Reviewed pt?s symptom tracker, no risk for suicidal ideation, plan, or intent as of 11/17/21 Client Response/Progress/Benefit: [] Pt responded well to session, attentive and engaged. Pt reports feeling content this morning and she is seeing progress in changing her behaviors. Pt stated she has been isolating less and is able to control her emotions much better. Pt gave a recent example of a triggering situation that would have led pt to lash out, but she did not. Pt has been using opposite action more frequently per her report. Pt still struggles with lack of internal motivation and communicating needs, but she is working on this. Pt appeared to benefit from reflecting on her use of coping skills. Pt will continue IOP tx to promote mood stability, increase motivation, and further reduce depression. Narrative Note: []
--- NOTE | 2021-11-17 10:00 | BH.SGPN.GN ---
Behaviors/Verbalizations/Mental Status: [] Eye contact is good. Motor activity is appropriate. Appearance is casual. Speech is Appropriate. Mood is euthymic. Affect is congruentl. Thoughts are linear and logical. No evidence of psychosis. Client Response/Progress/Benefit: [] Pt was an active participant in group discussions. Attentive during psychoeducation. Participated with peers in experiential activity. Pt participated in an interactive discussion with peers in which they worked together to define what coping skills are. Group then identified unhealthy coping skills which included; lashing out, hurting oneself, isolating, substance abuse, ignoring, sleeping to escape, and retail therapy. Psychoeducation on internal vs external coping skills. After experiential activity pt identified that her biggest external support was her mother who recently passed aways. Pt was tearful stating that she understands how much she relied on this external support which is why she has been struggling. I'm scrambling to work on my internal coping skills. Benefited from increased awareness and education the benefits of have both internal and external coping skills. Will continue in IOP to maintain gains, increase healthy coping, and improve functioning. Narrative Note: []
--- NOTE | 2021-11-19 09:05 | BH.SGPN.GN ---
Behaviors/Verbalizations/Mental Status: [] Eye contact is good. Motor activity is appropriate. Appearance is casual. Speech is Appropriate. Mood is euthymic. Affect is full. Thoughts are linear and logical. No evidence of psychosis. Reviewed daily check in sheet and no reports of suicidal ideations or intent. Client Response/Progress/Benefit: [] Pt participated at times during the group discussion. Attentive. Daily symptom tracker notes 2/5 for depression and /5 for anxiety. Emotion for today is ?content?. Mental health wins include implementing skills such as opposite-action. Shared with the group that today is her last day. She touched on her aftercare plans and reported her progress in the program. She reported that for the first 4 weeks she was significantly depressed, hopeless, and slept to escape. She believes that medication changes, support, and IOP have helped her tremendously. ?Before I was just existing?. Progress noted per pt report. Benefited from group support, encouragement, and feedback. Will be discharged from [facility] today. Narrative Note: []
--- NOTE | 2021-11-19 11:00 | BH.SGPN.GN ---
Behaviors/Verbalizations/Mental Status: []Pt alert and oriented, casually dressed and groomed. Eye contact good. Motor activity appropriate. Speech within normal limits. Affect congruent, mood euthymic. Thoughts linear, logical, no signs of hallucinations or delusions. Client Response/Progress/Benefit: []Pt responded well to session as evidenced by Pt listening attentively to others and providing strategies during discussion.? Pt identified personal warning signs for crisis and gained further awareness of earliest warning signs. Pt created a crisis action plan to help Pt better manage warning signs for crisis. Pt?s action plan included warning signs such as isolation and avoidance, loss of interest, and crying more frequently. Pt?s coping skills included going for a walk, listening to music, talking to neighbors, making things for people, music, breathing, and watching funny movies. Pt appeared to benefit from creating a crisis action plan and increasing self-awareness. Pt will discharge from IOP tx today as pt has accomplished her treatment goals and no longer meets criteria for IOP level of care. Narrative Note: []
--- NOTE | 2021-11-19 11:58 | PCM.BH.PN_ITS ---
Progress Note Progress Note: History of Present Illness/Interim History: [] The patient is a 56-year-old female with a history of depression, anxiety and numerous psychiatric admissions who is seen in follow-up at the [facility] behavioral health IOP program. I last saw the patient 1 month ago and at that time her Trintellix was increased to 10 mg and her Effexor XR was continually weaned to 75 mg daily. The patient had COVID and was out last week for much of the program. Today is patient's last day in the IOP program. She feels she has improved somewhat although not as much as she would have liked. Her mood is more hopeful and less apathetic than it was before. She does still feel depressed and feels she has plateaued somewhat on the current dose of Trintellix. She is tolerating the weaning of the Effexor pretty well but describes occasional tearfulness. The patient denies any passive thoughts of , suicidal ideation, plan for suicide, homicidal ideation, hallucinations or delusions. Current Psychiatric Medications: [] Abilify 10 mg p.o. daily (times 1+ years); Trental X 10 mg p.o. daily (dose increased 1 month ago); Wellbutrin XL 300 mg p.o. every morning (dose decreased 7 weeks ago); Effexor XR 75 mg p.o. daily (on this many many years and currently weaning); doxepin 10 mg p.o. nightly; Xanax 0.5 mg taken once a day only as needed for severe anxiety. Mental Status Examination: [] The patient is an obese 56-year-old female who is casually dressed and groomed with good hygiene and has no psychomotor agitation or retardation. She is ambulatory with a slow gait. She is cooperative and pleasant during the interview. Eye contact is good and speech is normal rate and rhythm and fluent with no pressure. Mood is mildly depressed. Affect is constricted. Thought process is goal-directed and organized. Thought content: There is no evidence of passive thoughts of , suicidal ideation, plan for suicide, homicidal ideation, hallucinations or delusions. Patient is hopeful for the future. Judgment is intact. Insight is fair. Impulsivity is moderate. Laboratory: Thyroid labs obtained recently were discussed with the patient and the results were within normal limits. Diagnoses: [] 1. Major depressive disorder, recurrent, severe without psychosis 2. Anxiety disorder, NOS 3. BASIL, CPAP noncompliant 4. M EN 1 syndrome 5. Obesity and status post gastric sleeve surgery in 2006 Plan: [] The patient will discharge from the IOP program today and will follow-u p with her psychiatric psychiatrist or psychiatric provider at her appointment next week. Prescription was sent in for Trintellix 15 mg p.o. daily thus increasing the dose from 10 mg. Effexor XR 37.5 mg dose was sent in for 1 month and the patient will discontinue the Effexor XR after 1 month. She will continue to follow-up with her outpatient providers and if she has trouble getting off the Effexor Exar she has 1 refill on the prescription. She felt safe during the interview and if it anytime she does not feel safe she will let us know or go to the emergency room. The risk, options, possible complications and side effects of the medications including withdrawing from Effexor XR were discussed with the patient and she understands and accepts these.
--- NOTE | 2021-11-19 16:49 | BH.DS ---
Discharge Summary - Demographics Date of Admission:: 09/22/21 Discharge Date: 11/19/21 Presenting Problems at Admission:: Client referred by outpatient therapist due to worsening symptoms of depression for the last two months. Client has hx of depression, anxiety and numerous psychiatric admissions. Completed [facility] IOP program in 2016. Client reported symptoms have been slowly decompensating for the past 2 years after the loss of her mother in 2019. She has limited support with 1 friend she talks to. The patient is depressed enough that she has been unable to function well at home and is having it hard time doing her ADLs. She has been not responding to many medications and at was scheduled for ECT in April 2021 but was unable to do this due to transportation issues. Client endorses depressed mood with crying spells, low motivation, hopelessness, worthlessness, isolation, anhedonia, decreased appetite, sleeping about 15 hours a day, low energy, and poor concentration. Client reported she is a worrier by nature and has lots of anxiety in social situations. Client has passive thoughts of but denies active SI, plan or intention. Discharge Diagnoses:: 1. Major depressive disorder, recurrent, severe without psychosis F33.2. 2. Anxiety disorder, NOS Reason for Discharge:: Pt has made significant treatment progress and no longer meets criteria for IOP level of care. - Treatment Progress During Treatment & Response: Per client's DSM 5 score at discharge scores show a 63% decrease in depression, 91% decrease in anxiety, and an overall 87% decrease in mental health symptoms. Pt responded well to treatment as consistently attending program. Pt tended to be more passive participant during group sessions, but did take notes and appear to connect with information. Pt showed increase follow through of using skills in the last few weeks of treatment. Issues Still to be Addressed:: Pt could benefit from continued reinforcement of healthy coping skills, increased socialization, challenging distorted thoughts, and having a daily routine. Discharge Recommendations/Instructions:: Client recommended to continue outpatient counseling with Lawanda Reich and is establishing care with Dr. Terrell for psychiatry. Has appointment scheduled with Dr. Esqueda for psychiatry in December and will attend this appointment if has to wait awhile to get in with Dr. Terrell. Client waiting to hear back for appointment from Lawanda. Discharge Handout: Complete Discharge Handout with client on aftercare options and continuity of care.
== END 2021-11-19 13:45 | disposition home or self-care (01) ==
LOC: BHIOP 07:41
PROVIDERS: PCP Internal Medicine; Referring Provider Psychiatry & Neurology Psychiatry; Visit Provider Psychiatry & Neurology Psychiatry
DX: F33.2 Major depressive disorder, recurrent severe without psychotic features (principal); F41.9 Anxiety disorder, unspecified; G47.33 Obstructive sleep apnea (adult) (pediatric); E66.9 Obesity, unspecified; Z98.84 Bariatric surgery status; Z79.899 Other long term (current) drug therapy
CPT/HCPCS: S9480; 90832; 90853

== ENCOUNTER 2021-11-27 12:00 | Outpatient (RCR) | payer MEDICARE, MEDICAID, SELFPAY ==
--- NOTE | 2021-11-27 13:55 | BH.SGPN.GN ---
Behaviors/Verbalizations/Mental Status: []Client alert and oriented, casual in appearance. Eye contact good.? Motor activity appropriate. Speech within normal limits. Affect congruent. Mood anxious. Thoughts linear, logical, no signs of hallucinations or delusions Client Response/Progress/Benefit: []Pt responded well to session AEB providing input throughout and listening attentively to others. Pt reported mental health positive as taking time to do some deep cleaning around the house and listen to music. Reports she is using coloring, small goals, and positive self-talk in order to maintain IOP gains. Pt stated she is still working on scheduling her outpatient counseling. Pt identified current stressor as needing new coloring materials as she is ?getting bored? with her current ones. Pt connected with self-reflection discussion and activity. Worked with group to identify the benefits of self-reflection, noting it can help to improve communication of your needs. Seemed to benefit from identifying how to incorporate self-reflection into life more often. Agreeable to complete homework of reflecting on progress in aftercare as well as reports self-reflection goal of mindfully listening to music. Pt to continue aftercare to maintain gains and prevent decompensation. Narrative Note: []
--- NOTE | 2021-11-27 17:44 | BH.MTP_ITS ---
Master Treatment Plan - Patient Information Program Physician:: Dr. Rosas Primary Therapist:: Halley Chandler [facility] - Psychiatric Diagnoses Psychiatric Diagnoses:: 1. Major depressive disorder, recurrent, severe without psychosis 2. Anxiety disorder, NOS Diagnosis Code(s):: F33.2 - Estimated LOS Estimated LOS (in weeks):: 8 Problem/Goal #1 - Problem/Goal #1 Stated Goal:: client will maintain or see a reduction in symptoms AEB client score on the DSM 5 cross-cutting measure and improve client's daily functioning. - Objectives Objective #1 Stated Objective: Client will continue to consistently apply healthy coping skills to maintain progress made in IOP tx. Interventions: Through group therapy, client will review warning signs and triggers as well as healthy coping skills learned in IOP tx to successfully maintain gains while transitioning into outpatient therapy. Discharge Criteria: Client will have accomplished this goal when client's score on the DSM-5 cross-cutting measure has either maintained or reduced over a 8 week period. Target Date: 01/22/22 Review Date: 12/25/21 Objective #2 Stated Objective: Client will learn and utilize 2-3 maintenance strategies to prevent decompensation. Interventions: Through group therapy, client will be provided with education on healthy maintenance behaviors, relapse prevention techniques, and healthy coping strategies. Discharge Criteria: Client will have accomplished this goal when can report using at least 2 maintenance skills to prevent decompensation. Target Date: 01/22/22 Review Date: 12/25/21
== END 2021-12-05 23:59 ==
LOC: BHOG 12:00
PROVIDERS: PCP Internal Medicine; Visit Provider Psychiatry & Neurology Psychiatry
DX: F33.2 Major depressive disorder, recurrent severe without psychotic features (principal); F41.9 Anxiety disorder, unspecified
CPT/HCPCS: 90853

== ENCOUNTER 2021-12-08 09:10 | Outpatient (RCR) | payer MEDICARE, MEDICAID, SELFPAY ==
--- NOTE | 2021-12-25 14:00 | BH.SGPN.GN ---
Behaviors/Verbalizations/Mental Status: []Pt alert and oriented, casually dressed and groomed. Eye contact good. Motor activity appropriate. Speech within normal limits. Affect congruent. Mood anxious, euthymic. Thoughts linear, logical, no signs of hallucinations or delusions. Client Response/Progress/Benefit: []Pt responded well to session, attentive and engaged. Pt reports she did not have appointments this week with her therapist or psychiatrist and is scheduled for next week. Pt has been taking her medications consistently. Reports she has been using coping skills such as deep breathing, listening to music, and coloring to help maintain gains and cope with ongoing stressors. Pt responded well to the discussion of gratitude and the benefits to mental health and relationships. Pt identified different things to focus on each day for the next 7 days to practice gratitude towards self and others. Pt shared she will practice identifying something she likes about herself, reflect on people who inspire her, and notice small things that make her laugh to practice gratitude over the next week. Pt recommended ongoing IOP aftercare to promote gains made in IOP and reinforce healthy coping skills. Narrative Note: []
--- NOTE | 2021-12-25 14:48 | BH.MTP_ITS ---
Treatment Plan Review Date of Admission:: 11/29/21 Date of Treatment Plan Review:: 12/25/21 Admitting Diagnoses:: 1. F33.2 Major depressive disorder, recurrent, severe without psychosis 2. Anxiety disorder, NOS Current Diagnoses:: 1. F33.2 Major depressive disorder, recurrent, severe without psychosis 2. Anxiety disorder, NOS Patient's Response to Treatment:: Pt responding well to treatment AEB engagement in group discussion and reporting use of skills outside treatment environment. Pt has had some medical issues recently that kept her from attending an aftercare session. Status of Current Problems and Symptoms: Ongoing stressors include maintaining progress made in IOP, health stress, and self-accountability with using skills outside treatment environment. Pt self-reports she has moments of negative thin stephanie and depression, but it is still manageable. Problem #1 Problem Name:: Pt will maintain or see a reduction in sx Status of Goals:: Obj 1 not complete- Per DSM 5 at mid-point her depressive scores have remained the same compared to her IOP DSM 5 scores. DSM 5 scores at mid point do show a 73% reduction in anxiety and an overall 41% decrease in mental health symptoms compared to her scores at admission to [facility]. Obj 2 - ongoing work encouraged. Pt has been reporting use of challenging negative thoughts, opposite action, and breathing skills. Pt struggles with consistent follow through. Team Recommendations:: Recommended client continue aftercare group in addition to attending regular outpatient counseling in order to maintain gains.
--- NOTE | 2022-01-01 14:00 | BH.SGPN.GN ---
Behaviors/Verbalizations/Mental Status: []Pt alert and oriented, neatly dressed and groomed. Eye contact good. Motor activity appropriate. Speech within normal limits. Affect constricted, mood euthymic. Thoughts linear, logical, no signs of hallucinations or delusions. Client Response/Progress/Benefit: []Pt responded well to session AEB sharing and listening attentively to others. Pt did not share her weekly check-in because she came in a little late. Pt was engaged in group and reported being in a good mood. Pt participated in group discussion defining affirmations and why they are important. Pt provided insight throughout clinician?s presentation of tips for writing personal affirmations. Pt wrote own affirmations, including ?you are smart, you are kind, you are important, and you are enough.? Pt appeared to benefit from increased knowledge of affirmation writing and increased self-awareness. Will continue aftercare treatment to reinforce healthy coping skills and promote gains. ? Narrative Note: []
== END 2022-01-05 23:59 ==
LOC: BHOG 09:10
PROVIDERS: PCP Internal Medicine; Visit Provider Psychiatry & Neurology Psychiatry
DX: F33.2 Major depressive disorder, recurrent severe without psychotic features (principal); F41.9 Anxiety disorder, unspecified
CPT/HCPCS: 90853

== ENCOUNTER 2021-12-17 12:28 | Outpatient (CLI) | payer MEDICARE, MEDICAID, SELFPAY ==
--- NOTE | 2021-12-17 12:29 | BI_ITS ---
MAMMOGRAPHY - BILATERAL SCREENING REASON FOR EXAM: Female, 56 years old. Routine annual screening examination. PERTINENT HISTORY: Non-contributory. TECHNIQUE: Digital bilateral breast celeste (3D mammographic acquisition) in the CC and MLO projections. 2-D mediolateral oblique (MLO) and craniocaudad (CC) views of both breasts were obtained. CAD: Full Field Digital Mammography with Computer Added Detection was performed. COMPARISON: Comparison is made with prior examination dated 09/26/2015. FINDINGS: Breast Composition: The breasts are almost entirely fatty. There are no dominant masses or suspicious calcifications. No other significant abnormalities are identified. There has been no significant change since the prior study. BI/SCRN MAMM (CAD)W/CELESTE BILAT IMPRESSION: Negative screening mammogram. Yearly followup mammogram recommended. (A) ASSESSMENT CATEGORY: BIRADS Category 1: Negative. A letter regarding these results will be sent to the patient by the facility within 30 days. Approximately 10% of breast cancers are not detected by mammography. A normal mammogram should not delay biopsy of a clinically suspicious abnormality. [id number] Electronically Signed: Nick Avery MD at 13:30 EDT ,
[2021-12-17 15:43] LABS: ALB/GLOB Ratio 0.8 RATIO (0.9-2.4); AST(SGOT) 22 U/L (15-37); Alanine Aminotransfer ALT/SGPT 24 U/L (13-56); Albumin, Serum 3.5 g/dL (3.2-5.0); Alkaline Phosphatase 124 U/L (45-117); Anion Gap 13 (5-15); BUN 11 mg/dL (7-18); BUN/Creat Ratio 6.5 RATIO (10-20); Calcium,Total 9.1 mg/dL (8.5-10.1); Chloride 97 mmol/L (98-107); Cholesterol 148 mg/dL (200); Creatinine, Serum 1.69 mg/dL (0.55-1.02); EST Glomerular Filtration Rate 33 mL/min (>60); Est Glom Filt Rate - Afr Amer 40 mL/min (>60); Globulin 4.6 g/dL (2.2-4.2); Glucose 143 mg/dL (74-106); High Density Lipoprotein 70 mg/dL; Potassium 2.7 mmol/L (3.5-5.1); Protein, Total 8.1 g/dL (6.4-8.2); Sodium Level 137 mmol/L (136-145); Triglycerides 131 mg/dL; Very Low Density Lipoprotein 26 mg/dL (5-40)
[2021-12-17 15:44] LABS: Vitamin B12 1899 pg/mL (211-911); Vitamin D,25 Hydroxy 33.9 ng/mL
== END 2021-12-17 23:59 | disposition home or self-care (01) ==
PROVIDERS: PCP Internal Medicine; Visit Provider Internal Medicine
DX: Z12.31 Encounter for screening mammogram for malignant neoplasm of breast (principal); E31.21 Multiple endocrine neoplasia [MEN] type I; K21.9 Gastro-esophageal reflux disease without esophagitis; E03.9 Hypothyroidism, unspecified; E78.2 Mixed hyperlipidemia; Z90.3 Acquired absence of stomach [part of]; E55.9 Vitamin D deficiency, unspecified
CPT/HCPCS: 36415; 77063; 77067; 80053; 80061; 82306; 82607

== ENCOUNTER 2021-12-17 18:03 | Emergency (ER) | payer MEDICARE, MEDICAID, SELFPAY ==
[2021-12-17 18:05] VITALS: BP 117/77; PULSE 104; RESP 16; TEMP 36.6; O2SAT 98; BMI 50.7
--- NOTE | 2021-12-17 19:40 | EKG12_ITS ---
Test Reason : DYSRHYTHMIA Blood Pressure : / mmHG Vent. Rate : 076 BPM Atrial Rate : 076 BPM P-R Int : 168 ms QRS Dur : 104 ms QT Int : 410 ms P-R-T Axes : 021 -40 018 degrees QTc Int : 461 ms Normal sinus rhythm Left axis deviation Abnormal ECG Confirmed by NORMA COURTNEY, ROSENDO ([id number]), graphic editor ELISE CUEVAS ([id number]) on 12/18/2021 2:04:39 P M Referred By: PL Confirmed By:STEFANO GREEN MD
[2021-12-17 20:17] LABS: Anion Gap 9 (5-15); BUN 12 mg/dL (7-18); BUN/Creat Ratio 7.9 RATIO (10-20); Calcium,Total 9.2 mg/dL (8.5-10.1); Chloride 100 mmol/L (98-107); Creatinine, Serum 1.52 mg/dL (0.55-1.02); EST Glomerular Filtration Rate 38 mL/min (>60); Est Glom Filt Rate - Afr Amer 46 mL/min (>60); Estimated Creatinine Clearance 40.67 ml/min; Glucose 101 mg/dL (74-106); Magnesium 1.7 mg/dL (1.6-2.6); Sodium Level 140 mmol/L (136-145)
--- NOTE | 2021-12-17 20:24 | EDS_ITS ---
HPI History of Present Illness Chief Complaint: Abn Labs Informant: patient Narrative Narrative: Patient presents with hypokalemia. This has been a recurrent problem for her for quite some time. She states she is on 20 of Lasix for her kidneys. She has no history of CHF. She does have a history of multiple endocrine neoplasia. She is also normally on 100 of spironolactone but has been out. She also has had some mild intermittent diarrhea for a month or 2. Is not constant but she does occasionally have watery stools. This combination is likely cause some worsening of her hypokalemia. She is on 40 a day of potassium normally. She took 80 today after she found out her potassium was low. She does feel just kind of generally weak which is a typical feeling she has when her potassium is low. No chest pain or palpitations. No syncope or lightheadedness. No muscle spasm. Normally potassium infusions and oral potassium gets this better for her. 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 Obstructive sleep apnea Home Medications bupropion HCl 300 mg 24 hr tablet, extended release 300 mg PO DAILY Mood 03/06/16 [History Last Taken 07/15/18] cyanocobalamin (vitamin B-12) 500 mcg tablet 1,000 mcg PO DAILY@0800 Supplement 09/16/17 [History Last Taken 07/15/18] calcitriol 0.25 mcg capsule 0.5 mcg PO DAILY 10/12/17 [History Last Taken 07/15/18] spironolactone 100 mg tablet 100 mg PO DAILY Fluid retention 10/12/17 [History Last Taken 07/15/18] furosemide 20 mg tablet 20 mg PO DAILY Fluid retention 10/03/19 [History Last Taken Unknown] potassium chloride 20 mEq tablet,extended release(part/cryst) 20 meq PO DAILYCM #30 tabs 10/11/19 [Rx Last Taken Unknown] alprazolam 0.5 mg tablet 0.5 mg PO BID PRN PRN Anxiety 09/24/21 [History Last Taken Unknown] aripiprazole 10 mg tablet 10 mg PO DAILY 09/24/21 [History Last Taken Unknown] atorvastatin 20 mg tablet 20 mg PO DAILY 09/24/21 [History Last Taken Unknown] cholecalciferol (vitamin D3) 50 mcg (2,000 unit) capsule (Vitamin D3) 2,000 mcg PO DAILY 09/24/21 [History Last Taken Unknown] doxepin 10 mg capsule 10 mg PO QHS 30 days #30 caps 09/24/21 [Rx Last Taken Unknown] fluticasone propionate 50 mcg/actuation blister powder for inhalation 1 inh inhalation DAILY 09/24/21 [History Last Taken Unknown] levothyroxine 100 mcg tablet 100 mcg PO DAILY 09/24/21 [History Last Taken Unknown] magnesium oxide 400 mg PO DAILY 09/24/21 [History Last Taken Unknown] vortioxetine 10 mg tablet (Trintellix) 10 mg PO DAILY 30 days #30 tabs 11/19/21 [Rx Last Taken Unknown] pantoprazole 40 mg tablet,delayed release (Protonix) 40 mg PO DAILY #30 tabs 12/09/21 [Rx Last Taken Unknown] venlafaxine 37.5 mg capsule,extended release 24 hr (Effexor XR) 75 mg PO DAILY 12/09/21 [History Last Taken Unknown] spironolactone 100 mg tablet 100 mg PO DAILY #30 tabs 12/17/21 [Rx Last Taken Unknown] Allergy/AdvReac Type Severity Reaction Status Date / Time propranolol Allergy Mild unknow Verified 12/17/21 18:04 Iodinated Contrast Media Allergy Rash Verified 12/17/21 18:04 [DYEE] iron AdvReac Other Verified 12/17/21 18:04 morphine AdvReac Rash Verified 12/17/21 18:04 ondansetron [From Zofran] AdvReac Other Verified 12/17/21 18:04 Family History Mother Stomach cancer Anemia Arthritis MEN, type 1 Father Pneumonia Anxiety Arthritis Depression Surgical History H/O right knee surgery History of cholecystectomy history of gastric sleeve History of hysterectomy History of parathyroidectomy history of right collar bone surgery Social History adopted: No household members: none housing: apartment current occupational status: unemployed current occupation: disability history of recent travel: No sexually active: No Smoking Status: Never smoker Electronic Cigarette Use: not used alcohol intake: current alcohol intake frequency: holidays/special occasions only details: once or twice a year substance use type: does not use, former substance user and marijuana diet: low salt well-balanced diet: about half the time caffeine: Yes eating out: 4 or more times/week during the past year weight has: increased > 10 lbs what type of physical activity do you participate in: walking frequency: 1-2 times per week seatbelt use: always do you feel safe at home: Yes ROS ROS ED Constitutional Constitutional ED: Denies chills or fever(s) Eyes Eyes: Denies change in vision ENT ENT ED: Denies sore throat Cardiovascular Cardiovascular: Denies palpitations or racing heartbeat Respiratory/Chest Respiratory/Chest: Denies cough or dyspnea Gastrointestinal Gastrointestinal: Reports diarrhea; Denies abdominal pain, nausea or vomiting Genitourinary Genitourinary ED: Denies urinary frequency Musculoskeletal Musculoskeletal: Denies back pain or myalgias Integumentary Denies rash Neurologic Neurologic: Reports other Details: See history of present illness Hematologic/Lymphatic Hematologic/Lymphatic: Denies easy bleeding or easy bruising Allergic/Immunologic Allergic/Immunologic ED: Denies urticaria EXAM Physical Exam Const Vital Signs: 12/17/21 18:05 12/17/21 20:32 12/17/21 21:00 Temperature 97.8 F Temperature Source Temporal Pulse Rate 104 H 78 Respiratory Rate 16 Respiratory Effort Normal Non-Labored Respiratory Pattern Normal Blood Pressure 117/77 Blood Pressure Mean 90 Pulse Ox 98 Oxygen Delivery Method Room Air Positive well nourished and well developed General Appearance ED: well developed and NAD HEENT Reports moist mucous membranes; Denies dry mucous membranes Mouth ED: No dry mucous membranes Mouth: No dry mucous membranes Eyes General Eye ED: Negative for scleral icterus Neck no JVD Resp normal respiratory effort and clear to auscultation bilaterally Cardio regular rate and regular rhythm GI normal to inspection, nondistended, normoactive bowel sounds and non-tender Back/Spine no CVA tenderness Extremity normal to inspection Neuro oriented x3 Neuro Narrative: Patient occasionally has some twitching of her right foot but she is able to make it stop easily. No carpopedal spasm. Psych mental status grossly normal Skin no rashes or lesions noted MDM MDM MDM Narrative Medical decision making narrative: Blood work shows excellent improvement of potassium to 3.0. But she still feels some mild symptoms and this is still low. We discussed options. She will continue with IV therapy. She already took 80 orally. We did give IV. She is feeling better and wants to go. I will write for her spironolactone that she is out of. We discussed reasons to return. Lab Data Attestation: I reviewed the patient's lab results. Labs: Laboratory Results - last 24 hr 12/17/21 19:55 Sodium 140 Potassium 3.0 L Chloride 100 Carbon Dioxide 31.0 Anion Gap 9 BUN 12 Creatinine 1.52 H Estim Creat Clear Calc 40.67 Est GFR (MDRD) Af Amer 46 L Est GFR (MDRD) Non-Af 38 L BUN/Creatinine Ratio 7.9 L Glucose 101 Calcium 9.2 Magnesium 1.7 EKG Initial EKG: Comments: EKG done for hypokalemia read by me shows normal sinus rhythm. Overall rate 76. No ventricular ectopy. No acute ST elevation or depression. No T wave inversion. No U waves. CT interval, QRS duration and QTc are normal Discharge Plan Triage Chief Complaint: Abn Labs ED Provider: Juni Dumont Dx/Rx/DC Orders Clinical Impression: Acute hypokalemia Instructions: ED Hypokalemia Prescriptions: New spironolactone 100 mg tablet 100 mg PO DAILY Qty: 30 0RF No Action venlafaxine [Effexor XR] 37.5 mg capsule,extended release 24hr 75 mg PO DAILY pantoprazole [Protonix] 40 mg tablet,delayed release (DR/EC) 40 mg PO DAILY Qty: 30 1RF bupropion HCl 300 MG tablet extended release 24 hr 300 mg PO DAILY cyanocobalamin (vitamin B-12) 500 MCG tablet 1,000 mcg PO DAILY@0800 spironolactone 100 MG tablet 100 mg PO DAILY calcitriol 0.25 MCG capsule 0.5 mcg PO DAILY furosemide 20 MG tablet 20 mg PO DAILY potassium chloride 20 MEQ tablet 20 meq PO DAILYCM Qty: 30 0RF doxepin 10 mg capsule 10 mg PO QHS 30 Days Qty: 30 0RF fluticasone propionate 50 mcg/actuation Blister With Device 1 inh INHALATION DAILY atorvastatin 20 mg Tablet 20 mg PO DAILY levothyroxine 100 mcg Tablet 100 mcg PO DAILY alprazolam 0.5 mg tablet 0.5 mg PO BID PRN PRN (Reason: Anxiety) Label Comments: take 1 tablet by mouth twice a day if needed aripiprazole 10 mg tablet 10 mg PO DAILY Label Comments: take 1 tablet by mouth once daily cholecalciferol (vitamin D3) [Vitamin D3] 50 mcg (2,000 unit) Capsule 2,000 mcg PO DAILY magnesium oxide 400 mg magnesium Tablet 400 mg PO DAILY Trintellix 10 mg tablet 10 mg PO DAILY 30 Days Qty: 30 0RF Rx Instructions: Take 1 1/2 tab (15 mg) po daily Primary Care Provider: Alondra Davies Referrals: Alondra Davies MD [Primary Care Provider] - 3-5 Days if not improving Disposition Disposition: Home, Self Care
[2021-12-17] MEDS: Potassium Chloride 10mEq/100mL 10 MEQ/100 ML IV.SOLN. 100 MEQ IV BOLUS ×2 (20:28→21:29)
[2021-12-17 21:00] VITALS: PULSE 78
[2021-12-17 23:04] VITALS: PULSE 82; RESP 16; O2SAT 98
== END 2021-12-17 23:05 | disposition home or self-care (01) ==
PROVIDERS: Emergency Provider Emergency Medicine; PCP Internal Medicine; Visit Provider Emergency Medicine
DX: E87.6 Hypokalemia (principal); E31.21 Multiple endocrine neoplasia [MEN] type I; K21.9 Gastro-esophageal reflux disease without esophagitis; E03.9 Hypothyroidism, unspecified; E78.2 Mixed hyperlipidemia; Z12.31 Encounter for screening mammogram for malignant neoplasm of breast; Z90.3 Acquired absence of stomach [part of]; E55.9 Vitamin D deficiency, unspecified
CPT/HCPCS: 36415; 77063; 77067; 80048; 80053; 80061; 82306; 82607; 83735; 93005; 96365; 96366; 99284; J7030; A4216

== ENCOUNTER → 2021-12-22 | Outpatient (CLI) | payer MEDICARE, MEDICAID, SELFPAY ==
[2021-12-22 19:28] LABS: Anion Gap 9 (5-15); BUN 15 mg/dL (7-18); BUN/Creat Ratio 9.1 RATIO (10-20); Calcium,Total 9.5 mg/dL (8.5-10.1); Chloride 100 mmol/L (98-107); Creatinine, Serum 1.65 mg/dL (0.55-1.02); EST Glomerular Filtration Rate 34 mL/min (>60); Est Glom Filt Rate - Afr Amer 41 mL/min (>60); Glucose 135 mg/dL (74-106); Potassium 3.2 mmol/L (3.5-5.1); Sodium Level 137 mmol/L (136-145)
== END | disposition home or self-care (01) ==
LOC: BIMLAB 13:53
PROVIDERS: PCP Internal Medicine; Visit Provider Internal Medicine
DX: E87.6 Hypokalemia (principal); N18.30 Chronic kidney disease, stage 3 unspecified
CPT/HCPCS: 36415; 80048

== ENCOUNTER 2021-12-27 10:55 | Emergency (ER) | payer MEDICARE, MEDICAID, SELFPAY ==
[2021-12-27 10:58] VITALS: BP 128/91; PULSE 107; RESP 18; TEMP 36.6; O2SAT 99; BMI 53.2
--- NOTE | 2021-12-27 11:19 | CT_ITS ---
STUDY: CT ABDOMEN AND PELVIS WITHOUT CONTRAST REASON FOR EXAM: Female, 56 years old. Llq pain RADIATION DOSAGE (If Supplied By Facility): CTDIvol = ( 32.95 ) mGy, DLP = ( 1580.69 ) mGycm TECHNIQUE: Transaxial images were obtained from the dome of the diaphragm to the symphysis pubis without oral contrast, and without intravenous contrast. Sagittal and coronal images were reconstructed. Individualized dose optimization techniques were used for this CT. COMPARISON: 2018 FINDINGS: The visualized lung bases are unremarkable. The visualized portions of the heart are within normal limits. Normal liver. There are surgical clips in the gallbladder fossa consistent with a prior cholecystectomy. Normal spleen. There is diffuse atrophy of the pancreas. Normal bilateral adrenal glands. Normal right kidney. Normal left kidney. Stable postsurgical changes noted in the stomach with hiatal hernia, no anastomotic leak. Normal small intestine. There are a few scattered colonic diverticula, no CT evidence of acute diverticulitis. There is non-visualization of the appendix. Normal abdominal aorta. Normal inferior vena cava. Normal retroperitoneum. Normal urinary bladder. There is absence of the uterus consistent with a prior hysterectomy. Normal abdominal wall. There are diffuse degenerative changes of the visualized lumbar spine, and pelvis. CT/Abdomen/Pelvis without Cont IMPRESSION: No suspicious solid organ abnormality No free intraperitoneal fluid, air, or suspicious adenopathy Degenerative bony changes Stable post surgical changes in the stomach with hiatal hernia, no anastomotic leak. Electronically Signed: Gautam Yates MD at 12:02 EDT ,
--- NOTE | 2021-12-27 11:24 | EDS_ITS ---
HPI HPI - GI History of Present Illness Chief Complaint: Abd Pain Informant: patient Narrative Narrative: Worsening left lower quadrant pain overnight. Symptoms worse with movement. No fevers. Reported on and off symptoms for months not evaluated by any healthcare providers. She denies urinary symptoms. Denies history of diverticulitis. Colonoscopy [address] Santiago. History of gastric sleeve 2006. History of cholecystectomy in the . Recent loose stools with no recent antibiotics. Yesterday had a soft stool. Nonbloody. No nausea or vomiting. Multiple allergies including morphine however tolerated Dilaudid in the past. Has IV dye allergy. 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 Obstructive sleep apnea Home Medications bupropion HCl 300 mg 24 hr tablet, extended release 300 mg PO DAILY Mood 03/06/16 [History Last Taken 07/15/18] cyanocobalamin (vitamin B-12) 500 mcg tablet 1,000 mcg PO DAILY@0800 Supplement 09/16/17 [History Last Taken 07/15/18] calcitriol 0.25 mcg capsule 0.5 mcg PO DAILY 10/12/17 [History Last Taken 07/15/18] furosemide 20 mg tablet 20 mg PO DAILY Fluid retention 10/03/19 [History Last Taken Unknown] alprazolam 0.5 mg tablet 0.5 mg PO BID PRN PRN Anxiety 09/24/21 [History Last Taken Unknown] aripiprazole 10 mg tablet 10 mg PO DAILY 09/24/21 [History Last Taken Unknown] atorvastatin 20 mg tablet 20 mg PO DAILY 09/24/21 [History Last Taken Unknown] cholecalciferol (vitamin D3) 50 mcg (2,000 unit) capsule (Vitamin D3) 2,000 mcg PO DAILY 09/24/21 [History Last Taken Unknown] doxepin 10 mg capsule 10 mg PO QHS 30 days #30 caps 09/24/21 [Rx Last Taken Unknown] fluticasone propionate 50 mcg/actuation blister powder for inhalation 1 inh inhalation DAILY 09/24/21 [History Last Taken Unknown] levothyroxine 100 mcg tablet 100 mcg PO DAILY 09/24/21 [History Last Taken Unknown] magnesium oxide 400 mg PO DAILY 09/24/21 [History Last Taken Unknown] vortioxetine 10 mg tablet (Trintellix) 10 mg PO DAILY 30 days #30 tabs 11/19/21 [Rx Last Taken Unknown] pantoprazole 40 mg tablet,delayed release (Protonix) 40 mg PO DAILY #30 tabs 12/09/21 [Rx Last Taken Unknown] venlafaxine 37.5 mg capsule,extended release 24 hr (Effexor XR) 75 mg PO DAILY 12/09/21 [History Last Taken Unknown] spironolactone 100 mg tablet 100 mg PO DAILY #30 tabs 12/17/21 [Rx Last Taken Unknown] hyoscyamine sulfate 0.125 mg sublingual tablet (Levsin/SL) 0.125 mg PO TID PRN abdominal discomfort #10 tabs 12/27/21 [Rx Last Taken Unknown] potassium chloride 20 mEq tablet,extended release(part/cryst) 80 meq PO DAILYCM 12/27/21 [History Last Taken Unknown] Allergy/AdvReac Type Severity Reaction Status Date / Time Iodinated Contrast Media Allergy Rash Verified 12/27/21 10:58 [DYEE] propranolol Allergy unknown Verified 12/27/21 10:58 iron AdvReac Other Verified 12/27/21 10:58 morphine AdvReac Rash Verified 12/27/21 10:58 ondansetron [From Zofran] AdvReac Other Verified 12/27/21 10:58 Family History Mother Stomach cancer Anemia Arthritis MEN, type 1 Father Pneumonia Anxiety Arthritis Depression Surgical History H/O right knee surgery History of cholecystectomy history of gastric sleeve History of hysterectomy History of parathyroidectomy history of right collar bone surgery Social History adopted: No household members: none housing: apartment current occupational status: unemployed current occupation: disability history of recent travel: No sexually active: No Smoking Status: Never smoker Electronic Cigarette Use: not used alcohol intake: current alcohol intake frequency: holidays/special occasions only details: once or twice a year substance use type: does not use, former substance user and marijuana diet: low salt well-balanced diet: about half the time caffeine: Yes eating out: 4 or more times/week during the past year weight has: increased > 10 lbs what type of physical activity do you participate in: walking frequency: 1-2 times per week seatbelt use: always do you feel safe at home: Yes ROS ROS ED Constitutional Constitutional ED: Denies chills, fever(s) or sweats Eyes Eyes: Denies change in vision ENT ENT ED: Denies dysphagia or sore throat Cardiovascular Cardiovascular: Denies chest pain, leg edema, palpitations or racing heartbeat Respiratory/Chest Respiratory/Chest: Denies cough, dyspnea or dyspnea on exertion Gastrointestinal Gastrointestinal: Reports abdominal pain; Denies diarrhea, nausea or vomiting Genitourinary Genitourinary ED: Denies dysuria, hematuria or urinary frequency Musculoskeletal Musculoskeletal: Denies back pain, extremity pain or neck pain Integumentary Denies rash or wounds Neurologic Neurologic: Denies headache(s), paresthesias or weakness EXAM Physical Exam Const Vital Signs: 12/27/21 10:58 Temperature 97.9 F Temperature Source Temporal Pulse Rate 107 H Respiratory Rate 18 Blood Pressure 128/91 H Blood Pressure Mean 103 Pulse Ox 99 Oxygen Delivery Method Room Air Positive well nourished and well developed General Appearance ED: well developed and NAD HEENT Reports moist mucous membranes normocephalic and atraumatic Eyes PERRL, EOMs intact bilaterally and conjunctivae normal General Eye ED: Yes normal appearance of both eyes Neck no lymphadenopathy and supple General: Negative for tenderness Chest Wall Chest: Negative for tenderness Resp normal respiratory effort and normal air movement Effort and Inspection: symmetric chest movement; Negative for respiratory distress Cardio regular rate, regular rhythm and no murmurs Peripheral Pulses: pulses 2+ throughout GI normal to inspection, nondistended, normoactive bowel sounds GI Narrative: Tender to deep palpation left lower quadrant. No guarding or rebound. Negative Liriano's or McBurney's tenderness. Palpation: Negative for guarding or rebound tenderness present Back/Spine no CVA tenderness and no thoracic nor lumbar tenderness Extremity normal to inspection General Extremety ED: Negative for edema or tenderness General Extremity: Negative for edema Neuro oriented x3 and no sensory deficits noted Sensorium / Orientation: awake and alert Skin no rashes or lesions noted and no wounds MDM MDM MDM Narrative Medical decision making narrative: Tender deep palpation left lower quadrant. Multiple allergies cannot do NSAIDs. 0.5 Dilaudid given. Labs normal white count stable CKD creatinine 1.[address] scan negative for acute process diverticulosis without diverticulitis. Symptoms improved on reevaluation. Nontender abdomen on reevaluation. Patient reporting more cramping at times. She will be placed on Levsin. She would like to follow-up with specialist locally. She is given follow-up with GI here. Return precautions discussed. All questions were answered. Lab Data Attestation: I reviewed the patient's lab results. Labs: Laboratory Results - last 24 hr 12/27/21 12/27/21 11:35 11:35 WBC 7.2 RBC 4.79 Hgb 12.9 Hct 41.2 MCV 86.0 MCH 26.9 L MCHC 31.3 L RDW Std Deviation 47.8 H RDW Coeff of Teena 15.2 H Plt Count 387 MPV 10.2 Immature Gran % (Auto) 0.300 Neut % (Auto) 58.5 Lymph % (Auto) 24.6 [place] % (Auto) 6.8 Eos % (Auto) 9.1 H Baso % (Auto) 0.7 Absolute Neuts (auto) 4.2 Absolute Lymphs (auto) 1.76 Nucleated RBC % 0 Sodium 140 Potassium 3.8 Chloride 107 Carbon Dioxide 26.0 Anion Gap 7 BUN 13 Creatinine 1.43 H Estim Creat Clear Calc 43.23 Est GFR (MDRD) Af Amer 49 L Est GFR (MDRD) Non-Af 40 L BUN/Creatinine Ratio 9.1 L Glucose 119 H Calcium 9.4 Radiography Diagnostic Testing: Clinical Impression(s) from Imaging Studies Abdomen/Pelvis CT 12/27/21 11:19 IMPRESSION: No suspicious solid organ abnormality No free intraperitoneal fluid, air, or suspicious adenopathy Degenerative bony changes Stable post surgical changes in the stomach with hiatal hernia, no anastomotic leak. Electronically Signed: Gautam Yates MD at 12:02 EDT , Discharge Plan Triage Chief Complaint: Abd Pain ED Provider: Agustin Amaya Dx/Rx/DC Orders Clinical Impression: Abdominal pain, LLQ, Chronic kidney disease, stage 3, Diverticulosis Instructions: Abdominal Pain, ED Chronic Kidney Disease (CKD), ED Diverticulosis Prescriptions: New hyoscyamine sulfate [Levsin/SL] 0.125 mg tablet, sublingual 0.125 mg PO TID PRN (Reason: abdominal discomfort) Qty: 10 0RF No Action venlafaxine [Effexor XR] 37.5 mg capsule,extended release 24hr 75 mg PO DAILY pantoprazole [Protonix] 40 mg tablet,delayed release (DR/EC) 40 mg PO DAILY Qty: 30 1RF bupropion HCl 300 MG tablet extended release 24 hr 300 mg PO DAILY cyanocobalamin (vitamin B-12) 500 MCG tablet 1,000 mcg PO DAILY@0800 calcitriol 0.25 MCG capsule 0.5 mcg PO DAILY furosemide 20 MG tablet 20 mg PO DAILY doxepin 10 mg capsule 10 mg PO QHS 30 Days Qty: 30 0RF fluticasone propionate 50 mcg/actuation Blister With Device 1 inh INHALATION DAILY atorvastatin 20 mg Tablet 20 mg PO DAILY levothyroxine 100 mcg Tablet 100 mcg PO DAILY alprazolam 0.5 mg tablet 0.5 mg PO BID PRN PRN (Reason: Anxiety) Label Comments: take 1 tablet by mouth twice a day if needed aripiprazole 10 mg tablet 10 mg PO DAILY Label Comments: take 1 tablet by mouth once daily cholecalciferol (vitamin D3) [Vitamin D3] 50 mcg (2,000 unit) Capsule 2,000 mcg PO DAILY magnesium oxide 400 mg magnesium Tablet 400 mg PO DAILY Trintellix 10 mg tablet 10 mg PO DAILY 30 Days Qty: 30 0RF Rx Instructions: Take 1 1/2 tab (15 mg) po daily spironolactone 100 mg tablet 100 mg PO DAILY Qty: 30 0RF potassium chloride 20 MEQ tablet,ER particles/crystals 80 meq PO DAILYCM Primary Care Provider: Alondra Davies Referrals: Alondra Davies MD [Primary Care Provider] - Friend,DO Triston [Med Staff - Active Staff] - 1-2 Weeks Activity Restrictions/Additional Instructions: CT scan negative for acute process. Diverticulosis noted. Creatinine 1.43 stable from your previous labs. Tylenol as needed Levsin as needed follow-up as an outpatient. Return if any worsening symptoms. Disposition Disposition: Home, Self Care
[2021-12-27] MEDS: HYDROmorphone 0.5 MG/0.5 ML SYRINGE IV (11:31)
[2021-12-27] MEDS: 0.9% Normal Saline 1,000 ML 125 ML IV (11:35)
[2021-12-27 11:39] LABS: Absolute Lymphocyte Count 1.76 X10^3/uL (0.83-4.51); Absolute Neutrophil Count 4.2 X10^3/uL (2.0-7.7); Basophil# 0.05 X10^3/uL; Basophil% 0.7 % (0-1); Eosinophil# 0.65 X10^3/uL; Eosinophils% 9.1 % (0-5); Hematocrit 41.2 % (37-47); Hemoglobin 12.9 g/dL (12.0-15.0); Lymphocyte # 1.76 X10^3/ul (0.83-4.51); Lymphocyte % 24.6 % (19-41); Mean Corp Hgb Conc 31.3 g/dL (32-36); Mean Corpuscular Hgb 26.9 pg (27.0-32.0); Mean Platelet Vol. 10.2 fl (6.2-12.0); Monocyte# 0.49 X10^3/uL; Monocyte% 6.8 % (0-10); NRBC Flagged by Analyzer 0 % (0-5); Neutrophil # 4.19 X10^3/uL (2.7-7.7); Neutrophil % 58.5 % (47-70); Platelet Count 387 K/mm3 (150-450); RBC Distribution Width CV 15.2 % (11.6-14.6); RBC Distribution Width SD 47.8 fl (35.1-43.9); Red Blood Count 4.79 M/mm3 (4.2-5.4); White Blood Count 7.2 K/mm3 (4.4-11.0)
[2021-12-27 11:56] LABS: Anion Gap 7 (5-15); BUN 13 mg/dL (7-18); BUN/Creat Ratio 9.1 RATIO (10-20); Calcium,Total 9.4 mg/dL (8.5-10.1); Chloride 107 mmol/L (98-107); Creatinine, Serum 1.43 mg/dL (0.55-1.02); EST Glomerular Filtration Rate 40 mL/min (>60); Est Glom Filt Rate - Afr Amer 49 mL/min (>60); Estimated Creatinine Clearance 43.23 ml/min; Glucose 119 mg/dL (74-106); Potassium 3.8 mmol/L (3.5-5.1); Sodium Level 140 mmol/L (136-145)
== END 2021-12-27 12:30 | disposition home or self-care (01) ==
PROVIDERS: Emergency Provider Emergency Medicine; PCP Internal Medicine; Visit Provider Emergency Medicine
DX: K57.90 Diverticulosis of intestine, part unspecified, without perforation or abscess without bleeding (principal); N18.30 Chronic kidney disease, stage 3 unspecified; Z90.49 Acquired absence of other specified parts of digestive tract; Z90.710 Acquired absence of both cervix and uterus
CPT/HCPCS: 74176; 80048; 85025; 96361; 96374; 99284; J7030; A4216

== ENCOUNTER 2021-12-29 10:41 | Emergency (ER) | payer MEDICARE, MEDICAID, SELFPAY ==
[2021-12-29 10:42] VITALS: BP 172/92; PULSE 118; RESP 16; TEMP 36.6; O2SAT 95; BMI 50.1
--- NOTE | 2021-12-29 10:56 | EX.ED.DYSGE1 ---
HPI History of Present Illness Chief Complaint: Abd Pain Narrative Narrative: 56 F here with LLQ abdominal pain. The patient states she has left lower quadrant abdominal pain has been constant, severe with no alleviating factors for the last 3 days. Denies any urinary complaints. Denies any vomiting. Denies any change in bowel habit. Notes history of gastric bypass procedure. Denies any fever. Denies any chest pain or shortness of breath. Chart review reveals recent ED visit on 12/27 for LLQ abdominal pain, negative CT at that time CBC with no leukocytosis, no obvious electrolyte abnormalities, baseline CKD, PFSH PFSH Medical History Anemia Anxiety disorder, unspecified Arthritis Difficulty balancing Fatigue History of blood transfusion History of kidney stones history of left foot fracture Kidney disease Knee pain Major depressive disorder, 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 Obstructive sleep apnea Home Medications bupropion HCl 300 mg 24 hr tablet, extended release 300 mg PO DAILY Mood 03/06/16 [History Last Taken 07/15/18] cyanocobalamin (vitamin B-12) 500 mcg tablet 1,000 mcg PO DAILY@0800 Supplement 09/16/17 [History Last Taken 07/15/18] calcitriol 0.25 mcg capsule 0.5 mcg PO DAILY 10/12/17 [History Last Taken 07/15/18] furosemide 20 mg tablet 20 mg PO DAILY Fluid retention 10/03/19 [History Last Taken Unknown] alprazolam 0.5 mg tablet 0.5 mg PO BID PRN PRN Anxiety 09/24/21 [History Last Taken Unknown] aripiprazole 10 mg tablet 10 mg PO DAILY 09/24/21 [History Last Taken Unknown] atorvastatin 20 mg tablet 20 mg PO DAILY 09/24/21 [History Last Taken Unknown] cholecalciferol (vitamin D3) 50 mcg (2,000 unit) capsule (Vitamin D3) 2,000 mcg PO DAILY 09/24/21 [History Last Taken Unknown] doxepin 10 mg capsule 10 mg PO QHS 30 days #30 caps 09/24/21 [Rx Last Taken Unknown] fluticasone propionate 50 mcg/actuation blister powder for inhalation 1 inh inhalation DAILY 09/24/21 [History Last Taken Unknown] levothyroxine 100 mcg tablet 100 mcg PO DAILY 09/24/21 [History Last Taken Unknown] magnesium oxide 400 mg PO DAILY 09/24/21 [History Last Taken Unknown] vortioxetine 10 mg tablet (Trintellix) 10 mg PO DAILY 30 days #30 tabs 11/19/21 [Rx Last Taken Unknown] pantoprazole 40 mg tablet,delayed release (Protonix) 40 mg PO DAILY #30 tabs 12/09/21 [Rx Last Taken Unknown] venlafaxine 37.5 mg capsule,extended release 24 hr (Effexor XR) 75 mg PO DAILY 12/09/21 [History Last Taken Unknown] spironolactone 100 mg tablet 100 mg PO DAILY #30 tabs 12/17/21 [Rx Last Taken Unknown] hyoscyamine sulfate 0.125 mg sublingual tablet (Levsin/SL) 0.125 mg PO TID PRN abdominal discomfort #10 tabs 12/27/21 [Rx Last Taken Unknown] potassium chloride 20 mEq tablet,extended release(part/cryst) 80 meq PO DAILYCM 12/27/21 [History Last Taken Unknown] Allergy/AdvReac Type Severity Reaction Status Date / Time Iodinated Contrast Media Allergy Rash Verified 12/29/21 10:45 [DYEE] propranolol Allergy unknown Verified 12/29/21 10:45 iron AdvReac Other Verified 12/29/21 10:45 morphine AdvReac Rash Verified 12/29/21 10:45 ondansetron [From Zofran] AdvReac Other Verified 12/29/21 10:45 Family History Mother Stomach cancer Anemia Arthritis MEN, type 1 Father Pneumonia Anxiety Arthritis Depression Surgical History H/O right knee surgery History of cholecystectomy history of gastric sleeve History of hysterectomy History of parathyroidectomy history of right collar bone surgery Social History adopted: No household members: none housing: apartment current occupational status: unemployed current occupation: disability history of recent travel: No sexually active: No Smoking Status: Never smoker Electronic Cigarette Use: not used alcohol intake: current alcohol intake frequency: holidays/special occasions only details: once or twice a year substance use type: does not use, former substance user and marijuana diet: low salt well-balanced diet: about half the time caffeine: Yes eating out: 4 or more times/week during the past year weight has: increased > 10 lbs what type of physical activity do you participate in: walking frequency: 1-2 times per week seatbelt use: always do you feel safe at home: Yes ROS ROS ED ROS Narrative Constitutional: Denies fever HEENT: Denies sore throat Neck: Denies neck pain Cardiovascular: Denies chest pain, syncope Respiratory: Denies shortness of breath GI: Positive for abdominal pain : Denies changes in urinary habits Musculoskeletal: Denies muscle or joint pain Neurologic: Denies numbness weakness or loss of sensation Skin denies rash EXAM Physical Exam Narrative Exam Narrative: Nursing triage notes reviewed, Vital signs reviewed Constitutional: please see mdm HENT: MMM Eyes: Pupils equal round and reactive to light, Extraocular muscles intact Neck: No stridor, no JVD, full neck ROM Lungs: Clear to auscultation, No wheezing or rales. No increased work of breathing, no conversational dyspnea, no accessory muscle use, no nasal flaring. No respiratory distress noted Heart: Regular rate and rhythm, No murmurs, No rubs and No gallops, 2+ distal pulses (radial, femoral, posterior tibial) in all extremities Abdomen: Soft, left lower quadrant TTP, noted freely reducible hernia in the left groin, no rigidity, rebound or guarding, no obvious peritoneal signs, no palpable pulsatile abdominal masses, no auscultated abdominal bruit : No CVAT Extremities: No edema Neuro: No focal neurological deficits, cranial nerves II through XII intact, 5/5 strength in all extremities. Intact sensation to light touch in all extremities, 2+ reflexes bilateral patella dens. Normal gait. No ataxia. Skin: No rash or lesions noted Const Vital Signs: 12/29/21 10:42 Temperature 97.9 F Temperature Source Temporal Pulse Rate 118 H Respiratory Rate 16 Blood Pressure 172/92 H Blood Pressure Mean 118 Pulse Ox 95 Oxygen Delivery Method Room Air [facility] MDM MDM Narrative Medical decision making narrative: 56-year-old female here with left lower quadrant abdominal pain. Second visit in the last 2 days. Exam with left inguinal hernia that is freely reducible. Concern for incarcerated hernia obtained a CT scan with oral contrast, labs including lactate, lipase and urinalysis. Labs were unremarkable. CT scan showed no evidence of incarcerated strangulated hernia. Patient is appropriate for discharge home with close general surgery follow-up. Lab Data Attestation: I reviewed the patient's lab results. Lab results narrative: Lactate is wnl indicating no end-organ hypoperfusion and/or hypoxia. BMP with hypokalemia, no acute kidney injury, no anion gap to suggest endorgan hypoperfusion LFTs with elevated alk phos, no hyperbilirubinemia or significant elevations in liver enzymes urine with inflammation, no dysuria, frequency to suggest UTI likely asymptomatic inflammation/bacteria. Will send for culture Lipase is wnl indicating no pancreatic inflammation. Labs: Laboratory Results - last 24 hr 12/29/21 12/29/21 12/29/21 11:25 11:25 11:30 Sodium 139 Potassium 3.0 L Chloride 102 Carbon Dioxide 27.0 Anion Gap 10 BUN 12 Creatinine 1.35 H Estim Creat Clear Calc 45.79 Est GFR (MDRD) Af Amer 52 L Est GFR (MDRD) Non-Af 43 L BUN/Creatinine Ratio 8.9 L Glucose 106 Lactic Acid 1.4 Calcium 9.2 Total Bilirubin 0.90 AST 59 H ALT 72 H Alkaline Phosphatase 188 H Total Protein 6.7 Albumin 2.8 L Globulin 3.9 Albumin/Globulin Ratio 0.7 L Lipase 27 L Urine Color Yellow Urine Clarity Clear Urine pH 6.0 Ur Specific [place] 1.020 Urine Protein 15 H Urine Glucose (UA) Normal Urine Ketones Negative Urine Occult Blood 10 H Urine Nitrite Negative Urine Bilirubin Negative Urine Urobilinogen Normal Ur Leukocyte Esterase 100 H Urine RBC 0 SEEN Urine WBC 0-5 SEEN Ur Squamous Epith Cells 0-5 SEEN Urine Bacteria 0 SEEN Urine Mucus 2+ Radiography Diagnostic Testing: Clinical Impression(s) from Imaging Studies Abdomen CT 12/29/21 11:09 IMPRESSION: Status post cholecystectomy. Status post gastric bypass surgery with hiatal hernia. Diffuse pancreatic atrophy. Electronically Signed: Nick Avery MD at 13:27 EDT , Treatment and Re-Evaluation Narrative: Abdominal exam remained benign patient is appropriate for discharge home. Discharge Plan Triage Chief Complaint: Abd Pain ED Provider: Marino Dukes Dx/Rx/DC Orders Clinical Impression: Inguinal hernia Instructions: ED Hernia (Adult) Prescriptions: No Action venlafaxine [Effexor XR] 37.5 mg capsule,extended release 24hr 75 mg PO DAILY pantoprazole [Protonix] 40 mg tablet,delayed release (DR/EC) 40 mg PO DAILY Qty: 30 1RF bupropion HCl 300 MG tablet extended release 24 hr 300 mg PO DAILY cyanocobalamin (vitamin B-12) 500 MCG tablet 1,000 mcg PO DAILY@0800 calcitriol 0.25 MCG capsule 0.5 mcg PO DAILY furosemide 20 MG tablet 20 mg PO DAILY doxepin 10 mg capsule 10 mg PO QHS 30 Days Qty: 30 0RF fluticasone propionate 50 mcg/actuation Blister With Device 1 inh INHALATION DAILY atorvastatin 20 mg Tablet 20 mg PO DAILY levothyroxine 100 mcg Tablet 100 mcg PO DAILY alprazolam 0.5 mg tablet 0.5 mg PO BID PRN PRN (Reason: Anxiety) Label Comments: take 1 tablet by mouth twice a day if needed aripiprazole 10 mg tablet 10 mg PO DAILY Label Comments: take 1 tablet by mouth once daily cholecalciferol (vitamin D3) [Vitamin D3] 50 mcg (2,000 unit) Capsule 2,000 mcg PO DAILY magnesium oxide 400 mg magnesium Tablet 400 mg PO DAILY Trintellix 10 mg tablet 10 mg PO DAILY 30 Days Qty: 30 0RF Rx Instructions: Take 1 1/2 tab (15 mg) po daily spironolactone 100 mg tablet 100 mg PO DAILY Qty: 30 0RF potassium chloride 20 MEQ tablet,ER particles/crystals 80 meq PO DAILYCM hyoscyamine sulfate [Levsin/SL] 0.125 mg tablet, sublingual 0.125 mg PO TID PRN (Reason: abdominal discomfort) Qty: 10 0RF Primary Care Provider: Alondra Davies Referrals: Alondra Davies MD [Primary Care Provider] - Activity Restrictions/Additional Instructions: Please return if your abdominal pain suddenly worsens, you cannot tolerate food by mouth, if your symptoms change or worsen in any way. Please follow with general surgery. A general surgery provider has been provided please see discharge instructions for further details Disposition Disposition: Home, Self Care
--- NOTE | 2021-12-29 11:09 | CT_ITS ---
STUDY: CT ABDOMEN AND PELVIS WITHOUT CONTRAST REASON FOR EXAM: Female, 56 years old. Left lower quadrant abdominal pain, left inguinal RADIATION DOSAGE (If Supplied By Facility): CTDIvol = ( 27.78 ) mGy, DLP = ( 1413.86 ) mGycm TECHNIQUE: Transaxial images were obtained from the dome of the diaphragm to the symphysis pubis without oral contrast, and without intravenous contrast. Sagittal and coronal images were reconstructed. Individualized dose optimization techniques were used for this CT. COMPARISON: Comparison is made with prior study 12/27/2021. FINDINGS: Stable linear density at the right lung base suggestive of scarring. The visualized portions of the heart are within normal limits. Normal liver. There are surgical clips in the gallbladder fossa consistent with a prior cholecystectomy. Normal spleen. There is diffuse atrophy of the pancreas. Normal bilateral adrenal glands. Normal right kidney. Normal left kidney. The patient is status post subtotal gastrectomy for bariatric surgery. A moderate-sized hiatal hernia is seen. Normal small intestine. There are multiple colonic diverticula consistent with diverticulosis. There is non-visualization of the appendix. Normal abdominal aorta. Normal right inferior vena cava. The right and left iliac veins form a left-sided inferior vena cava. Normal retroperitoneum. Normal urinary bladder. There is absence of the uterus consistent with a prior hysterectomy. There is a 2.4 cm x 1.5 cm calcification in the soft tissues in the left lower abdominal wall. No evidence of a left inguinal hernia. Normal osseous structures. CT/Abdomen/Pel W ORAL Cont Only IMPRESSION: Status post cholecystectomy. Status post gastric bypass surgery with hiatal hernia. Diffuse pancreatic atrophy. Electronically Signed: Nick Avery MD at 13:27 EDT ,
[2021-12-29] MEDS: 0.9% Normal Saline 1,000 ML 999 ML IV (11:32)
[2021-12-29] MEDS: oxyCODONE 5 MG Tablet PO (11:32)
[2021-12-29] MEDS: Ondansetron 4 MG/2 ML Vial IV (11:33)
[2021-12-29 11:46] LABS: Bacteria 0 SEEN /hpf (None Seen); Red Blood Cells-Urine 0 SEEN /hpf (0-5)
[2021-12-29 11:54] LABS: Color, Urine Yellow (Yellow); Glucose, Dipstick Normal (Normal); Ketone-Dipstick Negative (Negative); Leukocyte Esterase-Dipstick 100 /ul (Negative); Nitrite-Dipstick Negative (Negative); Occult Blood-Urine 10 /ul (Negative); Protein-Dipstick 15 mg/dl (Negative); Urine Bilirubin Dipstick Negative (Negative); Urine Clarity Clear (Clear); Urine Urobilinogen Normal (Normal)
[2021-12-29 12:16] LABS: Lactic Acid 1.4 mmol/L (0.4-1.9)
[2021-12-29 12:17] LABS: ALB/GLOB Ratio 0.7 RATIO (0.9-2.4); AST(SGOT) 59 U/L (15-37); Alanine Aminotransfer ALT/SGPT 72 U/L (13-56); Albumin, Serum 2.8 g/dL (3.2-5.0); Alkaline Phosphatase 188 U/L (45-117); BUN 12 mg/dL (7-18); BUN/Creat Ratio 8.9 RATIO (10-20); Calcium,Total 9.2 mg/dL (8.5-10.1); Creatinine, Serum 1.35 mg/dL (0.55-1.02); EST Glomerular Filtration Rate 43 mL/min (>60); Est Glom Filt Rate - Afr Amer 52 mL/min (>60); Estimated Creatinine Clearance 45.79 ml/min; Globulin 3.9 g/dL (2.2-4.2); Glucose 106 mg/dL (74-106); Lipase 27 U/L (73-393); Protein, Total 6.7 g/dL (6.4-8.2)
[2021-12-29 12:18] LABS: Anion Gap 10 (5-15); Chloride 102 mmol/L (98-107); Sodium Level 139 mmol/L (136-145)
[2021-12-29 12:28] LABS: Mucous, Urine 2+ /hpf (<or=2+); Squamous Epithelial Cells - UA 0-5 SEEN /hpf (5-10); White Blood Cells 0-5 SEEN /hpf (0-5)
[2021-12-29 14:27] VITALS: BP 110/78; PULSE 87; RESP 15; O2SAT 98
== END 2021-12-29 14:29 | disposition home or self-care (01) ==
PROVIDERS: Emergency Provider Emergency Medicine; PCP Internal Medicine; Visit Provider Emergency Medicine
DX: K40.90 Unilateral inguinal hernia, without obstruction or gangrene, not specified as recurrent (principal); G47.33 Obstructive sleep apnea (adult) (pediatric)
CPT/HCPCS: 74176; 80053; 81001; 83605; 83690; 87086; 87088; 96361; 96374; 99282; J7030; A4216; J2405

== ENCOUNTER 2022-01-06 08:04 | Outpatient (RCR) | payer MEDICARE, MEDICAID, SELFPAY ==
--- NOTE | 2022-01-15 14:00 | BH.SGPN.GN ---
Behaviors/Verbalizations/Mental Status: []Pt alert and oriented, casually dressed. Eye contact good. Motor activity appropriate. Speech within normal limits. Affect congruent, mood anxious/dysthymic. Thoughts linear, logical, no signs of hallucinations or delusions. Client Response/Progress/Benefit: []Pt responded well to session, engaged and providing input throughout. Pt checked in using aftercare worksheet and pt reports she did see her therapist, she last saw psychiatry 2 weeks ago, and pt has been taking medications. Pt has been using coping skills such as deep breathing, but reports struggling with consistent use of thought challenging and positive self-talk. Shared plans to review her positive affirmation cards created in the last aftercare group she attended. Pt participated in the discussion of self-love and how one can increase this. Pt reported it is challenging to have self-love tell yourself you don?t deserve it, but this is something pt continues to work on. Pt selected strategies to improve self-love and shared this week pt is going to focus on taking time to calm her mind using grounding skills daily. Pt appeared to benefit from increasing skills to build self-love. Pt will continue IOP aftercare to further increase mood stability and promote gains made in IOP. Narrative Note: []
--- NOTE | 2022-01-22 14:00 | BH.SGPN.GN ---
Behaviors/Verbalizations/Mental Status: []Pt alert and oriented, casually dressed and groomed. Eye contact good. Motor activity appropriate. Speech within normal limits. Affect flat, mood stressed. Thoughts linear, logical, no signs of hallucinations or delusions. Client Response/Progress/Benefit: []Pt receptive of session, engaged throughout. Pt shared she has been taking her medications and maintaining appointments with her outpatient mental health providers. Pt reports using deep breathing, self-care, and reading to cope with stressors and negative thoughts. Receptive of discussion on sitting with the uncomfortable and emotional urges. Pt contributed to the discussion of distress tolerance including benefits and pt identified personal examples of what happens if their distress tolerance is low. Pt shared to improve distress tolerance, she is going to work on mindfulness while waiting to help pt sit with the uncomfortable. Pt seemed to benefit from support from peers and increasing understanding of distress tolerance. Will discharge from [facility] aftercare today as pt has maintained gains over eight weeks and will transition to outpatient counseling. Narrative Note: []
--- NOTE | 2022-01-22 14:17 | BH.DS_ITS ---
Discharge Summary - Demographics Date of Admission:: 11/27/21 Discharge Date: 01/22/22 Presenting Problems at Admission:: Client discharged from IOP tx and transitioned to IOP aftercare to maintain gains client made in IOP and to reinforce healthy coping skills. At admission to IOP aftercare, client reported experiencing mild-moderate symptoms of anxiety and depression. Client was reporting ongoing issues with prioritizing self-care and consistently managing daily stressors. Ongoing difficulties in maintaining consistent with emotion regulation skills, reducing isolation and avoidance behaviors, as well as challenging distorted thought patterns. Discharge Diagnoses:: 1. Major depressive disorder, recurrent, severe without psychosis 2. Anxiety disorder, NOS Reason for Discharge:: Client has accomplished tx goals AEB ability to continue to improve healthy coping and maintain gains made in IOP. Client will transition to traditional outpatient counseling. - Treatment Progress During Treatment & Response: Pt progress was semi-consistent throughout IOP aftercare program. Pt was consistent with attendance and engaged in IOP aftercare AEB actively participating in group discussions. Pt self-reports trying to apply coping skills to maintain gains made in IOP tx, however acknowledged struggle with consistency at times. At discharge from IOP aftercare, client self-reported that she was experiencing overall less depression and anxiety since program admission and reported improved mood stability as well. Client's DSM-5 scores decreased by 72% since IOP admission. Client's anxiety decreased by 25%, irritability by 50% since admission, and depression decreased by an overall 73% since IOP admission. Additionally, client was reporting an improved mood, increased confidence, improved self-care, and improved use of opposite action. Issues Still to be Addressed:: Client can benefit from ongoing outpatient counseling and medication management to promote gains, reinforce healthy coping skills and prevent decompensation. Client can continue to work on increasing consistency of self-care, self-compassion, healthy use of her supports more co nsistently, as well as ongoing work on thought challenging. Client additionally would benefit from behavior activation specific therapy in the future. Discharge Recommendations/Instructions:: Client recommended to follow-up with outpatient counseling and psychiatry services as she has recently established with Dr. Terrell. Discharge Handout: Complete Discharge Handout with client on aftercare options and continuity of care.
== END 2022-01-22 15:23 | disposition home or self-care (01) ==
LOC: BHOG 08:04
PROVIDERS: PCP Internal Medicine; Visit Provider Psychiatry & Neurology Psychiatry
DX: F33.2 Major depressive disorder, recurrent severe without psychotic features (principal); F41.9 Anxiety disorder, unspecified
CPT/HCPCS: 90853

== ENCOUNTER → 2022-01-14 | Outpatient (CLI) | payer MEDICARE, MEDICAID, SELFPAY ==
[2022-01-14 11:44] LABS: Bacteria 0 SEEN /hpf (None Seen); Mucous, Urine 0 SEEN /hpf (<or=2+); Red Blood Cells-Urine 0 SEEN /hpf (0-5); Squamous Epithelial Cells - UA 0 SEEN /hpf (5-10)
[2022-01-14 13:07] LABS: ALB/GLOB Ratio 0.7 RATIO (0.9-2.4); AST(SGOT) 20 U/L (15-37); Alanine Aminotransfer ALT/SGPT 19 U/L (13-56); Albumin, Serum 3.4 g/dL (3.2-5.0); Alkaline Phosphatase 156 U/L (45-117); Anion Gap 8 (5-15); BUN 13 mg/dL (7-18); BUN/Creat Ratio 7.6 RATIO (10-20); Calcium,Total 10.5 mg/dL (8.5-10.1); Chloride 93 mmol/L (98-107); EST Glomerular Filtration Rate 33 mL/min (>60); Est Glom Filt Rate - Afr Amer 40 mL/min (>60); Globulin 4.6 g/dL (2.2-4.2); Glucose 109 mg/dL (74-106); Sodium Level 135 mmol/L (136-145)
[2022-01-14 15:13] LABS: Color, Urine Yellow (Yellow); Glucose, Dipstick Normal (Normal); Ketone-Dipstick Negative (Negative); Leukocyte Esterase-Dipstick 25 /ul (Negative); Nitrite-Dipstick Negative (Negative); Occult Blood-Urine Negative /ul (Negative); Protein-Dipstick Negative (Negative); Urine Bilirubin Dipstick Negative (Negative); Urine Clarity Sl. Cloudy (Clear); Urine Urobilinogen Normal (Normal); Urine pH 6.5 (5.0 - 8.0)
[2022-01-14 15:19] LABS: White Blood Cells 0-5 SEEN /hpf (0-5)
== END | disposition home or self-care (01) ==
LOC: BIMLAB 11:43
PROVIDERS: PCP Internal Medicine; Referring Provider Internal Medicine; Visit Provider Internal Medicine
DX: R74.8 Abnormal levels of other serum enzymes (principal); R10.32 Left lower quadrant pain; E87.6 Hypokalemia
CPT/HCPCS: 36415; 80053; 81001

== ENCOUNTER → 2022-01-22 | Outpatient (CLI) | payer MEDICARE, MEDICAID, SELFPAY ==
--- NOTE | 2022-01-22 11:17 | US_ITS ---
STUDY: SUPERFICIAL ULTRASOUND - ANTERIOR ABDOMINAL WALL REASON FOR EXAM: Female, 56 years old. calcification of LLQ on CT TECHNIQUE: A superficial ultrasound was performed with real-time and static figueroa-scale imaging. COMPARISON: CT 12/30/2019 FINDINGS: Multiple longitudinal and transverse ultrasound images of the anterior abdominal wall in the right lower quadrant demonstrate a 1 cm and a 2.2 cm echogenic focus with posterior shadowing consistent with calcification as seen on CT. US/Other Unlisted US Procedure IMPRESSION: Ultrasound confirms calcifications as seen on CT. Electronically Signed: Herman Oconnor MD at 12:58 EST ,
== END | disposition home or self-care (01) ==
LOC: US 11:15
PROVIDERS: PCP Internal Medicine; Referring Provider Internal Medicine; Visit Provider Internal Medicine
DX: R10.32 Left lower quadrant pain (principal); M79.89 Other specified soft tissue disorders
CPT/HCPCS: 76999

== ENCOUNTER 2022-02-16 08:21 | Emergency (ER) | payer MEDICARE, MEDICAID, SELFPAY ==
[2022-02-16 08:22] VITALS: BP 141/95; PULSE 114; RESP 17; TEMP 35.8; O2SAT 99; BMI 47.2
--- NOTE | 2022-02-16 08:39 | ED.VIS.GI ---
HPI HPI - GI History of Present Illness Chief Complaint: Diarrhea Informant: patient Nausea/Vomiting/Emesis GI Symptom: Negative for Nausea or Vomiting Diarrhea/Melena/Hematochezia GI Symptom: Positive for Diarrhea Onset: Weeks (2) Stool Quality: Positive for Watery Severity: Moderate Associated Symptoms Associated Symptoms: Negative for Dysuria, Frequency or Hematuria Narrative Narrative: Patient presents with diarrhea for the past 2 weeks. Patient states her diarrhea is watery. Patient denies any melena or hematochezia. Patient denies any abdominal pain. Patient states she has been taking Imodium with no improvement. Patient states she feels weak because of this. Patient denies any nausea or vomiting. Patient denies any fevers or chills. Patient denies any dysuria, hematuria, or frequency. 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 Obstructive sleep apnea Home Medications cyanocobalamin (vitamin B-12) 500 mcg tablet 1,000 mcg PO DAILY@0800 Supplement 09/16/17 [History Last Taken 07/15/18] calcitriol 0.25 mcg capsule 0.5 mcg PO DAILY 10/12/17 [History Last Taken 07/15/18] furosemide 20 mg tablet 20 mg PO DAILY Fluid retention 10/03/19 [History Last Taken Unknown] alprazolam 0.5 mg tablet 0.5 mg PO BID PRN PRN Anxiety 09/24/21 [History Last Taken Unknown] aripiprazole 10 mg tablet 10 mg PO DAILY 09/24/21 [History Last Taken Unknown] atorvastatin 20 mg tablet 20 mg PO DAILY 09/24/21 [History Last Taken Unknown] cholecalciferol (vitamin D3) 50 mcg (2,000 unit) capsule (Vitamin D3) 2,000 mcg PO DAILY 09/24/21 [History Last Taken Unknown] fluticasone propionate 50 mcg/actuation blister powder for inhalation 1 inh inhalation DAILY 09/24/21 [History Last Taken Unknown] levothyroxine 100 mcg tablet 100 mcg PO DAILY 09/24/21 [History Last Taken Unknown] magnesium oxide 400 mg PO DAILY 09/24/21 [History Last Taken Unknown] pantoprazole 40 mg tablet,delayed release (Protonix) 40 mg PO DAILY #30 tabs 12/09/21 [Rx Last Taken Unknown] spironolactone 100 mg tablet 100 mg PO DAILY #30 tabs 12/17/21 [Rx Last Taken Unknown] bupropion HCl 300 mg 24 hr tablet, extended release 300 mg PO DAILY Mood #30 tabs 12/31/21 [Rx Last Taken Unknown] ramelteon 8 mg tablet (Rozerem) 8 mg PO QHS #30 tabs 12/31/21 [Rx Last Taken Unknown] hyoscyamine sulfate 0.125 mg sublingual tablet (Levsin/SL) 0.125 mg PO TID PRN abdominal discomfort #30 tabs 01/14/22 [Rx Last Taken Unknown] potassium chloride 40 mEq/15 mL oral liquid 40 meq (15 mL) PO DAILY #473 mL 01/19/22 [Rx Last Taken Unknown] vortioxetine 20 mg tablet 20 mg PO DAILY #30 tabs 02/11/22 [Rx Last Taken Unknown] Allergy/AdvReac Type Severity Reaction Status Date / Time Iodinated Contrast Media Allergy Rash Verified 02/16/22 08:21 [DYEE] propranolol Allergy unknown Verified 02/16/22 08:21 iron AdvReac Other Verified 02/16/22 08:21 morphine AdvReac Rash Verified 02/16/22 08:21 ondansetron [From Zofran] AdvReac Other Verified 02/16/22 08:21 Family History Mother Stomach cancer Anemia Arthritis MEN, type 1 Father Pneumonia Anxiety Arthritis Depression Surgical History H/O right knee surgery History of cholecystectomy history of gastric sleeve History of hysterectomy History of parathyroidectomy history of right collar bone surgery Social History adopted: No household members: none housing: apartment current occupational status: unemployed current occupation: disability history of recent travel: No sexually active: No Smoking Status: Never smoker Electronic Cigarette Use: not used alcohol intake: current alcohol intake frequency: holidays/special occasions only details: once or twice a year substance use type: does not use, former substance user and marijuana diet: low salt well-balanced diet: about half the time caffeine: Yes eating out: 4 or more times/week during the past year weight has: increased > 10 lbs what type of physical activity do you participate in: walking frequency: 1-2 times per week seatbelt use: always do you feel safe at home: Yes ROS ROS ED Constitutional Constitutional ED: Denies chills or fever(s) Eyes Eyes: Denies blurry vision or change in vision ENT ENT ED: Denies rhinorrhea or sore throat Cardiovascular Cardiovascular: Denies chest pain or palpitations Respiratory/Chest Respiratory/Chest: Denies cough or dyspnea Gastrointestinal Gastrointestinal: Reports diarrhea; Denies abdominal pain, nausea or vomiting Genitourinary Genitourinary ED: Denies dysuria or hematuria Musculoskeletal Musculoskeletal: Denies back pain or neck pain Integumentary Denies abscess or rash Neurologic Neurologic: Denies headache(s) or weakness Allergic/Immunologic Allergic/Immunologic ED: Denies mouth swelling or urticaria EXAM Physical Exam Const Vital Signs: 02/16/22 08:22 Temperature 96.4 F L Temperature Source Temporal Pulse Rate 114 H Respiratory Rate 17 Blood Pressure 141/95 H Blood Pressure Mean 110 Pulse Ox 99 Oxygen Delivery Method Room Air Positive well nourished, well developed and obese General Appearance ED: well developed and NAD Nutritional Appearance: obese HEENT Reports moist mucous membranes Neck supple and no JVD Resp normal respiratory effort and clear to auscultation bilaterally Cardio regular rate, regular rhythm and no murmurs GI normal to inspection, nondistended, normoactive bowel sounds and non-tender Palpation: soft Extremity normal to inspection General Extremety ED: Negative for edema or tenderness General Extremity: Negative for edema Neuro oriented x3, CN's II-XII intact bilaterally and no sensory deficits noted Sensorium / Orientation: alert Motor Exam: strength 5/5 throughout Psych mental status grossly normal Mood & Affect: depressed Skin no rashes or lesions noted MDM MDM MDM Narrative Medical decision making narrative: Patient was given IV fluids. CBC was within normal limits. Comprehensive metabolic profile shows a potassium of 2.7. Creatinine was slightly elevated at 1.76. This is consistent with prior results. Urinalysis shows a leukocyte esterases of 500 with 5-10 white blood cells and 5-10 epithelial cells. There is 4+ bacteria. Urine culture was ordered. Patient was given a dose of oral potassium here. Patient was also given a dose of IV potassium. Stool studies were ordered however, the patient did not have any further episodes of diarrhea here in the emergency department. Patient was instructed to follow-up with her primary care physician in 5 to 7 days. Patient understood and was agreeable with the plan. All questions were answered. Lab Data Labs: Laboratory Results - last 24 hr 02/16/22 02/16/22 02/16/22 08:30 08:30 10:15 WBC 7.4 RBC 5.70 H Hgb 15.7 H Hct 49.1 H MCV 86.1 MCH 27.5 MCHC 32.0 RDW Std Deviation 47.9 H RDW Coeff of Teena 15.4 H Plt Count 475 H MPV 11.3 Immature Gran % (Auto) 0.500 Neut % (Auto) 57.0 Lymph % (Auto) 23.7 [place] % (Auto) 12.3 H Eos % (Auto) 5.4 H Baso % (Auto) 1.1 H Absolute Neuts (auto) 4.2 Absolute Lymphs (auto) 1.75 Nucleated RBC % 0 Sodium 133 L Potassium 2.7 L* Chloride 94 L Carbon Dioxide 31.0 Anion Gap 8 BUN 16 Creatinine 1.76 H Estim Creat Clear Calc 35.12 Est GFR (MDRD) Af Amer 38 L Est GFR (MDRD) Non-Af 32 L BUN/Creatinine Ratio 9.1 L Glucose 162 H Calcium 10.2 H Total Bilirubin 0.60 AST 39 H ALT 42 Alkaline Phosphatase 147 H Total Protein 8.6 H Albumin 3.6 Globulin 5.0 H Albumin/Globulin Ratio 0.7 L Lipase 37 L Urine Color Yellow Urine Clarity Cloudy Urine pH 6.0 Ur Specific [place] 1.020 Urine Protein 30 H Urine Glucose (UA) Normal Urine Ketones 5 H Urine Occult Blood 10 H Urine Nitrite Negative Urine Bilirubin Negative Urine Urobilinogen 1 H Ur Leukocyte Esterase 500 H Urine RBC 0-5 SEEN Urine WBC 5-10 SEEN Ur Squamous Epith Cells 5-10 SEEN Calcium Oxalate Crystal 2+ Urine Bacteria 4+ Hyaline Casts 0-5 SEEN Coarse Granular Casts 0 SEEN Urine Mucus 0 SEEN Discharge Plan Triage Chief Complaint: Diarrhea ED Provider: Joey Hughes Dx/Rx/DC Orders Clinical Impression: Diarrhea, Hypokalemia Instructions: ED Diarrhea, Unknown Cause Prescriptions: No Action pantoprazole [Protonix] 40 mg tablet,delayed release (DR/EC) 40 mg PO DAILY Qty: 30 1RF ramelteon [Rozerem] 8 mg tablet 8 mg PO QHS Qty: 30 2RF bupropion HCl 300 mg tablet extended release 24 hr 300 mg PO DAILY Qty: 30 2RF Trintellix 20 mg tablet 20 mg PO DAILY Qty: 30 2RF hyoscyamine sulfate [Levsin/SL] 0.125 mg tablet, sublingual 0.125 mg PO TID PRN (Reason: abdominal discomfort) Qty: 30 0RF cyanocobalamin (vitamin B-12) 500 MCG tablet 1,000 mcg PO DAILY@0800 calcitriol 0.25 MCG capsule 0.5 mcg PO DAILY furosemide 20 MG tablet 20 mg PO DAILY fluticasone propionate 50 mcg/actuation Blister With Device 1 inh INHALATION DAILY atorvastatin 20 mg Tablet 20 mg PO DAILY levothyroxine 100 mcg Tablet 100 mcg PO DAILY alprazolam 0.5 mg tablet 0.5 mg PO BID PRN PRN (Reason: Anxiety) Label Comments: take 1 tablet by mouth twice a day if needed aripiprazole 10 mg tablet 10 mg PO DAILY Label Comments: take 1 tablet by mouth once daily cholecalciferol (vitamin D3) [Vitamin D3] 50 mcg (2,000 unit) Capsule 2,000 mcg PO DAILY magnesium oxide 400 mg magnesium Tablet 400 mg PO DAILY spironolactone 100 mg tablet 100 mg PO DAILY Qty: 30 0RF potassium chloride 40 mEq/15 mL liquid 40 meq PO DAILY Qty: 473 0RF Primary Care Provider: Alondra Davies Referrals: Alondra Davies MD [Primary Care Provider] - 5-7 Days Disposition Disposition: Home, Self Care
[2022-02-16] MEDS: 0.9% Normal Saline 1,000 ML 1000 ML IV (09:03)
[2022-02-16 09:09] LABS: Absolute Lymphocyte Count 1.75 X10^3/uL (0.83-4.51); Absolute Neutrophil Count 4.2 X10^3/uL (2.0-7.7); Basophil# 0.08 X10^3/uL; Basophil% 1.1 % (0-1); Eosinophils% 5.4 % (0-5); Hematocrit 49.1 % (37-47); Hemoglobin 15.7 g/dL (12.0-15.0); Lymphocyte # 1.75 X10^3/ul (0.83-4.51); Lymphocyte % 23.7 % (19-41); Mean Corpuscular Hgb 27.5 pg (27.0-32.0); Mean Corpuscular Volume 86.1 fL (81-99); Mean Platelet Vol. 11.3 fl (6.2-12.0); Monocyte# 0.91 X10^3/uL; Monocyte% 12.3 % (0-10); NRBC Flagged by Analyzer 0 % (0-5); Neutrophil # 4.21 X10^3/uL (2.7-7.7); Platelet Count 475 K/mm3 (150-450); RBC Distribution Width CV 15.4 % (11.6-14.6); RBC Distribution Width SD 47.9 fl (35.1-43.9); White Blood Count 7.4 K/mm3 (4.4-11.0)
[2022-02-16 09:31] LABS: ALB/GLOB Ratio 0.7 RATIO (0.9-2.4); AST(SGOT) 39 U/L (15-37); Alanine Aminotransfer ALT/SGPT 42 U/L (13-56); Albumin, Serum 3.6 g/dL (3.2-5.0); Alkaline Phosphatase 147 U/L (45-117); Anion Gap 8 (5-15); BUN 16 mg/dL (7-18); BUN/Creat Ratio 9.1 RATIO (10-20); Calcium,Total 10.2 mg/dL (8.5-10.1); Chloride 94 mmol/L (98-107); Creatinine, Serum 1.76 mg/dL (0.55-1.02); EST Glomerular Filtration Rate 32 mL/min (>60); Est Glom Filt Rate - Afr Amer 38 mL/min (>60); Estimated Creatinine Clearance 35.12 ml/min; Glucose 162 mg/dL (74-106); Lipase 37 U/L (73-393); Potassium 2.7 mmol/L (3.5-5.1); Protein, Total 8.6 g/dL (6.4-8.2); Sodium Level 133 mmol/L (136-145)
--- NOTE | 2022-02-16 09:31 | ED.RN ---
LAB CALLED POTASSIUM OF 2.7. DR GUTIERREZ
[2022-02-16 10:25] LABS: Mucous, Urine 0 SEEN /hpf (<or=2+)
[2022-02-16] MEDS: Potassium Chloride Oral Tablet 20 MEQ 40 MEQ PO (10:26)
[2022-02-16 10:28] LABS: Color, Urine Yellow (Yellow); Glucose, Dipstick Normal (Normal); Ketone-Dipstick 5 mg/dl (Negative); Leukocyte Esterase-Dipstick 500 /ul (Negative); Nitrite-Dipstick Negative (Negative); Occult Blood-Urine 10 /ul (Negative); Protein-Dipstick 30 mg/dl (Negative); Urine Bilirubin Dipstick Negative (Negative); Urine Clarity Cloudy (Clear); Urine Urobilinogen 1 mg/dl (Normal)
[2022-02-16 10:36] LABS: Calcium Oxalate Crystals Ur 2+ /hpf (<or=2+); Coarse Granular Cast 0 SEEN /lpf (0-5 /lpf)
[2022-02-16 10:37] LABS: Red Blood Cells-Urine 0-5 SEEN /hpf (0-5); Squamous Epithelial Cells - UA 5-10 SEEN /hpf (5-10); White Blood Cells 5-10 SEEN /hpf (0-5)
[2022-02-16 10:38] LABS: Bacteria 4+ /hpf (None Seen); Hyaline Cast 0-5 SEEN /lpf (0-5)
[2022-02-16] MEDS: Potassium Chloride 10mEq/100mL 10 MEQ/100 ML IV.SOLN. 100 MEQ IV BOLUS (11:21)
== END 2022-02-16 13:13 | disposition home or self-care (01) ==
PROVIDERS: Emergency Provider Emergency Medicine; PCP Internal Medicine; Visit Provider Emergency Medicine
DX: R19.7 Diarrhea, unspecified (principal); E87.6 Hypokalemia; G47.33 Obstructive sleep apnea (adult) (pediatric); E66.9 Obesity, unspecified; R53.1 Weakness
CPT/HCPCS: 80053; 81001; 83690; 85025; 87086; 87088; 96361; 96365; 99283; A4216

== ENCOUNTER → 2022-02-18 | Outpatient (CLI) | payer MEDICARE, MEDICAID, SELFPAY ==
[2022-02-18 16:41] LABS: Absolute Lymphocyte Count 1.47 X10^3/uL (0.83-4.51); Absolute Neutrophil Count 3.1 X10^3/uL (2.0-7.7); Basophil# 0.06 X10^3/uL; Eosinophil# 0.55 X10^3/uL; Eosinophils% 9.3 % (0-5); Hematocrit 45.9 % (37-47); Hemoglobin 14.7 g/dL (12.0-15.0); Lymphocyte # 1.47 X10^3/ul (0.83-4.51); Lymphocyte % 24.8 % (19-41); Mean Corpuscular Hgb 27.4 pg (27.0-32.0); Mean Corpuscular Volume 85.6 fL (81-99); Mean Platelet Vol. 10.9 fl (6.2-12.0); Monocyte# 0.76 X10^3/uL; Monocyte% 12.8 % (0-10); NRBC Flagged by Analyzer 0 % (0-5); Neutrophil # 3.07 X10^3/uL (2.7-7.7); Neutrophil % 51.8 % (47-70); Platelet Count 374 K/mm3 (150-450); RBC Distribution Width CV 15.5 % (11.6-14.6); RBC Distribution Width SD 48.5 fl (35.1-43.9); Red Blood Count 5.36 M/mm3 (4.2-5.4); White Blood Count 5.9 K/mm3 (4.4-11.0)
[2022-02-18 16:59] LABS: ALB/GLOB Ratio 0.8 RATIO (0.9-2.4); AST(SGOT) 32 U/L (15-37); Alanine Aminotransfer ALT/SGPT 39 U/L (13-56); Albumin, Serum 3.2 g/dL (3.2-5.0); Alkaline Phosphatase 139 U/L (45-117); Anion Gap 8 (5-15); BUN 13 mg/dL (7-18); Calcium,Total 8.9 mg/dL (8.5-10.1); Chloride 101 mmol/L (98-107); Creatinine, Serum 1.62 mg/dL (0.55-1.02); EST Glomerular Filtration Rate 35 mL/min (>60); Est Glom Filt Rate - Afr Amer 42 mL/min (>60); Globulin 4.1 g/dL (2.2-4.2); Glucose 113 mg/dL (74-106); Magnesium 1.7 mg/dL (1.6-2.6); Potassium 3.7 mmol/L (3.5-5.1); Protein, Total 7.3 g/dL (6.4-8.2); Sodium Level 137 mmol/L (136-145)
== END | disposition home or self-care (01) ==
LOC: BIMLAB 16:08
PROVIDERS: PCP Internal Medicine; Referring Provider Internal Medicine; Visit Provider Internal Medicine
DX: B34.9 Viral infection, unspecified (principal); R05.9 Cough, unspecified; E87.6 Hypokalemia
CPT/HCPCS: 36415; 80053; 83735; 85025; 87635; U0003; U0005

== ENCOUNTER 2022-02-20 18:36 | Emergency (ER) | payer MEDICARE, MEDICAID, SELFPAY ==
[2022-02-20 18:37] VITALS: BP 113/44; PULSE 112; RESP 16; TEMP 36.6; O2SAT 99; BMI 47.0
--- NOTE | 2022-02-20 21:24 | ED.RN ---
2100 PT WALKED OUT THE DOOR AND DIDN'T SAY ANYTHING.
== END 2022-02-20 21:00 | disposition left against medical advice (07) ==
LOC: ED 21:31
PROVIDERS: PCP Internal Medicine
DX: R19.7 Diarrhea, unspecified (principal); Z53.21 Procedure and treatment not carried out due to patient leaving prior to being seen by health care provider

== ENCOUNTER 2022-02-24 07:08 | Emergency (ER) | payer MEDICARE, MEDICAID, SELFPAY ==
[2022-02-24 07:09] VITALS: BP 130/114; PULSE 94; RESP 18; TEMP 36.6; O2SAT 99; BMI 47.0
[2022-02-24 07:11] VITALS: BP 157/116; PULSE 74; RESP 16; TEMP 36.7; O2SAT 98
--- NOTE | 2022-02-24 07:23 | EDS_ITS ---
HPI History of Present Illness Chief Complaint: Diarrhea Narrative Narrative: Patient presents with 5-week history of diarrhea, she describes loose stools sometimes watery about 5 to 6/day. No etiology has been found as of yet. She has no abdominal pain but she does feel jittery, she feels lightheaded. No fevers or chills, no recent travel history, no recent antibiotics or hospitalization. She has underlying anxiety and tells me this is making her even more anxious. 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 Obstructive sleep apnea Home Medications cyanocobalamin (vitamin B-12) 500 mcg tablet 1,000 mcg PO DAILY@0800 Supplement 09/16/17 [History Last Taken 07/15/18] calcitriol 0.25 mcg capsule 0.5 mcg PO DAILY 10/12/17 [History Last Taken 07/15/18] furosemide 20 mg tablet 20 mg PO DAILY Fluid retention 10/03/19 [History Last Taken Unknown] aripiprazole 10 mg tablet 10 mg PO DAILY 09/24/21 [History Last Taken Unknown] atorvastatin 20 mg tablet 20 mg PO DAILY 09/24/21 [History Last Taken Unknown] cholecalciferol (vitamin D3) 50 mcg (2,000 unit) capsule (Vitamin D3) 1,250 mcg PO DAILY 09/24/21 [History Last Taken Unknown] levothyroxine 100 mcg tablet 100 mcg PO DAILY 09/24/21 [History Last Taken Unknown] magnesium oxide 400 mg PO DAILY 09/24/21 [History Last Taken Unknown] spironolactone 100 mg tablet 100 mg PO DAILY #30 tabs 12/17/21 [Rx Last Taken Unknown] bupropion HCl 300 mg 24 hr tablet, extended release 300 mg PO DAILY Mood #30 tabs 12/31/21 [Rx Last Taken Unknown] alprazolam 0.5 mg tablet 0.5 mg PO BID PRN Anxiety #60 tabs 02/17/22 [Rx Last Taken Unknown] diphenoxylate-atropine 2.5 mg-0.025 mg tablet (Lomotil) 1 tab PO BID PRN diarrhea #20 tabs 02/18/22 [Rx Last Taken Unknown] fluticasone propionate 50 mcg/actuation blister powder for inhalation 1 inh inhalation DAILY PRN congestion #60 ea 02/18/22 [Rx Last Taken Unknown] pantoprazole 40 mg tablet,delayed release (Protonix) 20 mg PO DAILY 02/24/22 [History Last Taken Unknown] potassium chloride 40 mEq/15 mL oral liquid 20 meq PO DAILY 02/24/22 [History Last Taken Unknown] Allergy/AdvReac Type Severity Reaction Status Date / Time Iodinated Contrast Media Allergy Rash Verified 02/24/22 07:12 [DYEE] propranolol Allergy unknown Verified 02/24/22 07:12 iron AdvReac Other Verified 02/24/22 07:12 morphine AdvReac Rash Verified 02/24/22 07:12 ondansetron [From Zofran] AdvReac Other Verified 02/24/22 07:12 Family History Mother Stomach cancer Anemia Arthritis MEN, type 1 Father Pneumonia Anxiety Arthritis Depression Surgical History H/O right knee surgery History of cholecystectomy history of gastric sleeve History of hysterectomy History of parathyroidectomy history of right collar bone surgery Social History adopted: No household members: none housing: apartment current occupational status: unemployed current occupation: disability history of recent travel: No sexually active: No Smoking Status: Never smoker Electronic Cigarette Use: not used alcohol intake: current alcohol intake frequency: holidays/special occasions only details: once or twice a year substance use type: does not use, former substance user and marijuana diet: low salt well-balanced diet: about half the time caffeine: Yes eating out: 4 or more times/week during the past year weight has: increased > 10 lbs what type of physical activity do you participate in: walking frequency: 1-2 times per week seatbelt use: always do you feel safe at home: Yes ROS ROS ED ROS Narrative Past medical history: Reviewed, includes anxiety, M EN type I, depression, debility, BASIL, CKD, anemia, irritable bowel syndrome, GERD, hypothyroidism. Medications: Reviewed Social history: Noncontributory Review of systems: All systems negative except as indicated General: No fever. Some lightheadedness Eyes: No visual changes ENT: No upper airway congestion, normal voice Neck: No neck pain Cardiovascular: No chest pain Respiratory: No shortness of breath or cough Gastrointestinal: No abdominal pain, nausea vomiting. Diarrhea as in HPI Genitourinary: No dysuria Musculoskeletal: Denies myalgias no difficulty with ambulation Skin: No rash Neurological: No memory loss, confusion or any focal weakness Psych: No recent behavioral changes. She does admit to being anxious Hematologic: No easy bleeding or easy bruising EXAM Physical Exam Narrative Exam Narrative: Physical exam General: Patient does not appear uncomfortable, she does appear anxious. Head: Normocephalic, Atraumatic Eyes: Conjunctiva not pale ENT: Slightly dry mucous membranes Neck: Supple, Nontender, No lymphadenopathy Cardiovascular: Regular rate, Regular rhythm Respiratory: No distress, CTA bilaterally Abdomen: Soft, Nontender, Nondistended, obese. Back: Nontender, Normal Inspection. Negative for: CVA tenderness Extremities: Nontender, slight bilateral lower extremity edema, this is symmetric. Skin: Normal color, No rash Neurological: Alert, Normal Strength, Normal Sensation Psychological: Anxious Const Vital Signs: 02/24/22 07:09 02/24/22 07:11 02/24/22 08:11 Temperature 98 F 98.1 F 98.3 F Temperature Source Temporal Temporal Temporal Pulse Rate 94 74 72 Respiratory Rate 18 16 16 Blood Pressure 130/114 H 157/116 H 221/198 H Blood Pressure Mean 119 129 205 Pulse Ox 99 98 98 Oxygen Delivery Method Room Air Room Air Room Air MDM MDM MDM Narrative Medical decision making narrative: Since work-up is unremarkable other than slight hypokalemia which I will treat in the ED. She is to follow-up with her GI physician about the diarrhea, I did order stool studies but she is unable to have a bowel movement in the ED. She has no abdominal pain therefore I do not believe she needs abdominal imaging. If anything worsens she is to return. She is to continue her potassium supplements at home. Lab Data Labs: Laboratory Results - last 24 hr 02/24/22 02/24/22 07:35 07:35 WBC 8.6 RBC 5.23 Hgb 14.4 Hct 43.8 MCV 83.7 MCH 27.5 MCHC 32.9 RDW Std Deviation 47.8 H RDW Coeff of Teena 15.7 H Plt Count 398 MPV 10.6 Immature Gran % (Auto) 0.200 Neut % (Auto) 65.7 Lymph % (Auto) 23.8 Spink % (Auto) 6.3 Eos % (Auto) 3.7 Baso % (Auto) 0.3 Absolute Neuts (auto) 5.7 Absolute Lymphs (auto) 2.06 Nucleated RBC % 0 Sodium 139 Potassium 3.0 L Chloride 107 Carbon Dioxide 24.0 Anion Gap 8 BUN 12 Creatinine 1.41 H Estim Creat Clear Calc 43.84 Est GFR (MDRD) Af Amer 50 L Est GFR (MDRD) Non-Af 41 L BUN/Creatinine Ratio 8.5 L Glucose 127 H Calcium 8.0 L Total Bilirubin 0.50 AST 15 ALT 22 Alkaline Phosphatase 113 Total Protein 7.3 Albumin 2.8 L Globulin 4.5 H Albumin/Globulin Ratio 0.6 L Discharge Plan Triage Chief Complaint: Diarrhea ED Provider: Jose D Thomas Dx/Rx/DC Orders Clinical Impression: Diarrhea, Acute hypokalemia, Acute dehydration Instructions: Dehydration, Hypokalemia Dc Prescriptions: No Action bupropion HCl 300 mg tablet extended release 24 hr 300 mg PO DAILY Qty: 30 2RF diphenoxylate-atropine [Lomotil] 2.5-0.025 mg tablet 1 tab PO BID PRN (Reason: diarrhea) Qty: 20 0RF fluticasone propionate 50 mcg/actuation blister with device 1 inh INHALATION DAILY PRN (Reason: congestion) Qty: 60 0RF cyanocobalamin (vitamin B-12) 500 MCG tablet 1,000 mcg PO DAILY@0800 calcitriol 0.25 MCG capsule 0.5 mcg PO DAILY furosemide 20 MG tablet 20 mg PO DAILY atorvastatin 20 mg Tablet 20 mg PO DAILY levothyroxine 100 mcg Tablet 100 mcg PO DAILY aripiprazole 10 mg tablet 10 mg PO DAILY Label Comments: take 1 tablet by mouth once daily cholecalciferol (vitamin D3) [Vitamin D3] 50 mcg (2,000 unit) Capsule 1,250 mcg PO DAILY magnesium oxide 400 mg magnesium Tablet 400 mg PO DAILY spironolactone 100 mg tablet 100 mg PO DAILY Qty: 30 0RF potassium chloride 40 mEq/15 mL liquid 20 meq PO DAILY pantoprazole [Protonix] 40 mg tablet,delayed release (DR/EC) 20 mg PO DAILY alprazolam 0.5 mg tablet 0.5 mg PO BID PRN (Reason: Anxiety) Qty: 60 1RF Primary Care Provider: Alondra Davies Referrals: Alondra Davies MD [Primary Care Provider] - Friend,DO Triston [Med Staff - Active Staff] - 3-5 Days Disposition Disposition: Home, Self Care
[2022-02-24] MEDS: 0.9% Normal Saline 1,000 ML 1000 ML IV (07:39)
[2022-02-24 07:42] LABS: Absolute Lymphocyte Count 2.06 X10^3/uL (0.83-4.51); Absolute Neutrophil Count 5.7 X10^3/uL (2.0-7.7); Basophil# 0.03 X10^3/uL; Basophil% 0.3 % (0-1); Eosinophil# 0.32 X10^3/uL; Eosinophils% 3.7 % (0-5); Hematocrit 43.8 % (37-47); Hemoglobin 14.4 g/dL (12.0-15.0); Lymphocyte # 2.06 X10^3/ul (0.83-4.51); Lymphocyte % 23.8 % (19-41); Mean Corp Hgb Conc 32.9 g/dL (32-36); Mean Corpuscular Hgb 27.5 pg (27.0-32.0); Mean Corpuscular Volume 83.7 fL (81-99); Mean Platelet Vol. 10.6 fl (6.2-12.0); Monocyte# 0.54 X10^3/uL; Monocyte% 6.3 % (0-10); NRBC Flagged by Analyzer 0 % (0-5); Neutrophil # 5.67 X10^3/uL (2.7-7.7); Neutrophil % 65.7 % (47-70); Platelet Count 398 K/mm3 (150-450); RBC Distribution Width CV 15.7 % (11.6-14.6); RBC Distribution Width SD 47.8 fl (35.1-43.9); Red Blood Count 5.23 M/mm3 (4.2-5.4); White Blood Count 8.6 K/mm3 (4.4-11.0)
[2022-02-24 07:58] LABS: ALB/GLOB Ratio 0.6 RATIO (0.9-2.4); AST(SGOT) 15 U/L (15-37); Alanine Aminotransfer ALT/SGPT 22 U/L (13-56); Albumin, Serum 2.8 g/dL (3.2-5.0); Alkaline Phosphatase 113 U/L (45-117); Anion Gap 8 (5-15); BUN 12 mg/dL (7-18); BUN/Creat Ratio 8.5 RATIO (10-20); Chloride 107 mmol/L (98-107); Creatinine, Serum 1.41 mg/dL (0.55-1.02); EST Glomerular Filtration Rate 41 mL/min (>60); Est Glom Filt Rate - Afr Amer 50 mL/min (>60); Estimated Creatinine Clearance 43.84 ml/min; Globulin 4.5 g/dL (2.2-4.2); Glucose 127 mg/dL (74-106); Protein, Total 7.3 g/dL (6.4-8.2); Sodium Level 139 mmol/L (136-145)
[2022-02-24 08:11] VITALS: BP 221/198; PULSE 72; RESP 16; TEMP 36.8; O2SAT 98
[2022-02-24] MEDS: LORazepam 2 MG/ML Syringe 0.5 MG IV (08:43)
[2022-02-24 09:09] VITALS: BP 154/85; PULSE 74; RESP 16; TEMP 36.8; O2SAT 97
[2022-02-24] MEDS: Potassium Chloride Oral Tablet 20 MEQ 80 MEQ PO (09:55)
[2022-02-24 09:58] VITALS: BP 92/67; PULSE 77; RESP 18; TEMP 36.8; O2SAT 98
== END 2022-02-24 10:06 | disposition home or self-care (01) ==
PROVIDERS: Emergency Provider Emergency Medicine; PCP Internal Medicine; Visit Provider Emergency Medicine
DX: R19.7 Diarrhea, unspecified (principal); E87.6 Hypokalemia; E86.0 Dehydration; N18.9 Chronic kidney disease, unspecified; F41.9 Anxiety disorder, unspecified; G47.33 Obstructive sleep apnea (adult) (pediatric); Z79.899 Other long term (current) drug therapy
CPT/HCPCS: 80053; 85025; 96361; 96374; 99284; J7030; A4216

== ENCOUNTER 2022-02-25 19:44 | Emergency (ER) | payer MEDICARE, MEDICAID, SELFPAY ==
[2022-02-25 19:44] VITALS: BP 122/77; PULSE 104; RESP 18; TEMP 36.4; O2SAT 100; BMI 47.0
[2022-02-25 20:09] VITALS: BP 110/81; PULSE 109; RESP 16; O2SAT 97
--- NOTE | 2022-02-25 20:31 | EDS_ITS ---
HPI HPI - GI History of Present Illness Chief Complaint: Diarrhea Narrative Narrative: Patient with past medical history of anxiety and multiple endocrine neoplasia type I presents with diarrhea that she states has been going on for at least the last 2 weeks. She saw her primary care provider last week and received Lomotil but she states she continues to have 5 episodes of nonbloody diarrhea that smoothly watery every day. Of note, this is her third visit within the last few weeks for her diarrhea. She denies any abdominal pain. No nausea or vomiting. No fevers or chills. She states she feels a little bit weak from all the diarrhea that she has been having. [facility] Medical History Anemia Anxiety disorder, unspecified Arthritis Difficulty balancing Fatigue History of blood transfusion History of kidney stones history of left foot fracture Kidney disease Knee pain Major depressive disorder, 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 Obstructive sleep apnea Home Medications cyanocobalamin (vitamin B-12) 500 mcg tablet 1,000 mcg PO DAILY@0800 Supplement 09/16/17 [History Last Taken 07/15/18] calcitriol 0.25 mcg capsule 0.5 mcg PO DAILY 10/12/17 [History Last Taken 07/15/18] furosemide 20 mg tablet 20 mg PO DAILY Fluid retention 10/03/19 [History Last Taken Unknown] aripiprazole 10 mg tablet 10 mg PO DAILY 09/24/21 [History Last Taken Unknown] atorvastatin 20 mg tablet 20 mg PO DAILY 09/24/21 [History Last Taken Unknown] cholecalciferol (vitamin D3) 50 mcg (2,000 unit) capsule (Vitamin D3) 1,250 mcg PO DAILY 09/24/21 [History Last Taken Unknown] levothyroxine 100 mcg tablet 100 mcg PO DAILY 09/24/21 [History Last Taken Unknown] magnesium oxide 400 mg PO DAILY 09/24/21 [History Last Taken Unknown] spironolactone 100 mg tablet 100 mg PO DAILY #30 tabs 12/17/21 [Rx Last Taken Unknown] bupropion HCl 300 mg 24 hr tablet, extended release 300 mg PO DAILY Mood #30 tabs 12/31/21 [Rx Last Taken Unknown] alprazolam 0.5 mg tablet 0.5 mg PO BID PRN Anxiety #60 tabs 02/17/22 [Rx Last Taken Unknown] diphenoxylate-atropine 2.5 mg-0.025 mg tablet (Lomotil) 1 tab PO BID PRN diarrhea #20 tabs 02/18/22 [Rx Last Taken Unknown] fluticasone propionate 50 mcg/actuation blister powder for inhalation 1 inh inhalation DAILY PRN congestion #60 ea 02/18/22 [Rx Last Taken Unknown] pantoprazole 40 mg tablet,delayed release (Protonix) 20 mg PO DAILY 02/24/22 [History Last Taken Unknown] potassium chloride 40 mEq/15 mL oral liquid 20 meq PO DAILY 02/24/22 [History Last Taken Unknown] Allergy/AdvReac Type Severity Reaction Status Date / Time Iodinated Contrast Media Allergy Rash Verified 02/25/22 19:44 [DYEE] propranolol Allergy unknown Verified 02/25/22 19:44 iron AdvReac Other Verified 02/25/22 19:44 morphine AdvReac Rash Verified 02/25/22 19:44 ondansetron [From Zofran] AdvReac Other Verified 02/25/22 19:44 Family History Mother Stomach cancer Anemia Arthritis MEN, type 1 Father Pneumonia Anxiety Arthritis Depression Surgical History H/O right knee surgery History of cholecystectomy history of gastric sleeve History of hysterectomy History of parathyroidectomy history of right collar bone surgery Social History adopted: No household members: none housing: apartment current occupational status: unemployed current occupation: disability history of recent travel: No sexually active: No Smoking Status: Never smoker Electronic Cigarette Use: not used alcohol intake: current alcohol intake frequency: holidays/special occasions only details: once or twice a year substance use type: does not use, former substance user and marijuana diet: low salt well-balanced diet: about half the time caffeine: Yes eating out: 4 or more times/week during the past year weight has: increased > 10 lbs what type of physical activity do you participate in: walking frequency: 1-2 times per week seatbelt use: always do you feel safe at home: Yes ROS ROS ED ROS Narrative Constitutional: No fever, no chills. Underlies weakness. HEENT: No sore throat. No neck pain. No loss of vision. No rhinorrhea. Cardiovascular: No chest pain. No palpitations. No pedal edema. Respiratory: No cough, no shortness of breath. Abdominal: Minimal diffuse, crampy abdominal pain. No nausea. No vomiting. 5 episodes of diarrhea, nonbloody, per day for the last 2 weeks at least. Genitourinary: No dysuria. No hematuria. Musculoskeletal: No myalgias. No arthralgias. Neurologic: No headaches. No dizziness. No lightheadedness. Skin: No rash. No change in color. Psychiatric: No depression. No anxiety. EXAM Physical Exam Narrative Exam Narrative: Afebrile. Vital signs noted. HEENT: Normocephalic. Atraumatic. PERRL, EOMI. Neck soft and supple. No point tenderness or step off. Cardiovascular: Regular rate and rhythm. No murmurs, rubs, or gallops appreciated. Respiratory: No tachypnea. Lungs clear to auscultation bilaterally. Gastrointestinal: Abdomen soft, obese, nontender, with normoactive bowel sounds. No rebound or guarding. Neurological: Awake. Alert. Nonfocal, nonlateralizing. Skin: No rash. Normal color. No pallor. Musculoskeletal: No pedal edema. Full range of motion extremities. Const Vital Signs: 02/25/22 19:44 02/25/22 20:09 Temperature 97.6 F L Temperature Source Temporal Pulse Rate 104 H 109 H Respiratory Rate 18 16 Blood Pressure 122/77 H 110/81 H Blood Pressure Mean 92 90 Pulse Ox 100 97 Oxygen Delivery Method Room Air Room Air MDM MDM MDM Narrative Medical decision making narrative: I reviewed her prior provider notes from her emergency department visits. She was last here yesterday. Before today, she had stated that her diarrhea had been ongoing for 5 weeks. She also stated the Lomotil was not working. She is usually hypokalemic and she receives potassium and is discharged. Given that this is her third visit since the beginning of the month within 3 weeks, I will obtain CT imaging without contrast because she has an allergy. I will obtain a CBC and a CMP also. She will be bolused IV fluids. CBC shows normal white count of 8.4 with hemoglobin normal at 13.8, hematocrit 43.4. Platelet count normal at 386. CMP shows potassium slightly low at 3.4 which was replaced orally with 40 mill equivalents. She has a BUN of 11 and creatinine only slightly elevated at 1.33. Glucose appropriately elevated at 114 with a normal anion gap of 7. LFTs are grossly unremarkable. CT of the abdomen and pelvis without contrast shows no acute process, no colitis. At this point in time, I feel she be discharged safely home with follow-up to her primary care provider. She will continue her Lomotil. She may need follow-up with gastroenterology. Return instructions to the emergency department were rev iewed. Disposition is discharged home in stable condition. Lab Data Attestation: I reviewed the patient's lab results. Labs: Laboratory Results - last 24 hr 02/25/22 02/25/22 20:40 20:40 WBC 8.4 RBC 5.13 Hgb 13.8 Hct 43.4 MCV 84.6 MCH 26.9 L MCHC 31.8 L RDW Std Deviation 47.9 H RDW Coeff of Teena 15.6 H Plt Count 386 MPV 10.2 Immature Gran % (Auto) 0.500 Neut % (Auto) 67.3 Lymph % (Auto) 22.8 Ceiba % (Auto) 5.8 Eos % (Auto) 3.1 Baso % (Auto) 0.5 Absolute Neuts (auto) 5.7 Absolute Lymphs (auto) 1.91 Nucleated RBC % 0 Sodium 140 Potassium 3.4 L Chloride 109 H Carbon Dioxide 24.0 Anion Gap 7 BUN 11 Creatinine 1.33 H Estim Creat Clear Calc 46.48 Est GFR (MDRD) Af Amer 53 L Est GFR (MDRD) Non-Af 44 L BUN/Creatinine Ratio 8.3 L Glucose 114 H Calcium 7.9 L Total Bilirubin 0.50 AST 15 ALT 18 Alkaline Phosphatase 105 Total Protein 6.8 Albumin 2.8 L Globulin 4.0 Albumin/Globulin Ratio 0.7 L Radiography Diagnostic Testing: Clinical Impression(s) from Imaging Studies Abdomen/Pelvis CT 02/25/22 20:31 IMPRESSION: No acute abnormality. Electronically Signed: Herman Oconnor MD at 21:43 EST , Discharge Plan Triage Chief Complaint: Diarrhea ED Provider: Sean Clarke Dx/Rx/DC Orders Clinical Impression: Diarrhea, Hypokalemia Instructions: ED Diarrhea, Unknown Cause, ED Hypokalemia Prescriptions: No Action bupropion HCl 300 mg tablet extended release 24 hr 300 mg PO DAILY Qty: 30 2RF diphenoxylate-atropine [Lomotil] 2.5-0.025 mg tablet 1 tab PO BID PRN (Reason: diarrhea) Qty: 20 0RF fluticasone propionate 50 mcg/actuation blister with device 1 inh INHALATION DAILY PRN (Reason: congestion) Qty: 60 0RF cyanocobalamin (vitamin B-12) 500 MCG tablet 1,000 mcg PO DAILY@0800 calcitriol 0.25 MCG capsule 0.5 mcg PO DAILY furosemide 20 MG tablet 20 mg PO DAILY atorvastatin 20 mg Tablet 20 mg PO DAILY levothyroxine 100 mcg Tablet 100 mcg PO DAILY aripiprazole 10 mg tablet 10 mg PO DAILY Label Comments: take 1 tablet by mouth once daily cholecalciferol (vitamin D3) [Vitamin D3] 50 mcg (2,000 unit) Capsule 1,250 mcg PO DAILY magnesium oxide 400 mg magnesium Tablet 400 mg PO DAILY spironolactone 100 mg tablet 100 mg PO DAILY Qty: 30 0RF potassium chloride 40 mEq/15 mL liquid 20 meq PO DAILY pantoprazole [Protonix] 40 mg tablet,delayed release (DR/EC) 20 mg PO DAILY alprazolam 0.5 mg tablet 0.5 mg PO BID PRN (Reason: Anxiety) Qty: 60 1RF Primary Care Provider: Alondra Davies Referrals: Alondra Davies MD [Primary Care Provider] - 1-2 Days if not improving Disposition Disposition: Home, Self Care
--- NOTE | 2022-02-25 20:31 | CT_ITS ---
STUDY: CT ABDOMEN AND PELVIS WITHOUT CONTRAST REASON FOR EXAM: Female, 56 years old. Diarrhea RADIATION DOSAGE (If Supplied By Facility): CTDIvol = ( 31.07 ) mGy, DLP = ( 1629.86 ) mGycm TECHNIQUE: Transaxial images were obtained from the dome of the diaphragm to the symphysis pubis without oral contrast, and without intravenous contrast. Sagittal and coronal images were reconstructed. Individualized dose optimization techniques were used for this CT. COMPARISON: 12/29/2021 FINDINGS: The visualized lung bases are unremarkable. The visualized portions of the heart are within normal limits. Normal liver. There are surgical clips in the gallbladder fossa consistent with a prior cholecystectomy. Normal spleen. Normal pancreas. Normal bilateral adrenal glands. Normal right kidney. Normal left kidney. There is a small hiatal hernia. Status post gastric surgery with a suture line along the greater curvature. Normal small intestine. Normal colon. The appendix is visualized and appears normal. Normal abdominal aorta. Normal inferior vena cava. Normal retroperitoneum. Normal urinary bladder. Normal abdominal wall. Mild levoscoliosis lumbar spine with degenerative disc disease. CT/Abdomen/Pelvis without Cont IMPRESSION: No acute abnormality. Electronically Signed: Herman Oconnor MD at 21:43 EST ,
[2022-02-25 20:46] LABS: Absolute Lymphocyte Count 1.91 X10^3/uL (0.83-4.51); Absolute Neutrophil Count 5.7 X10^3/uL (2.0-7.7); Basophil# 0.04 X10^3/uL; Basophil% 0.5 % (0-1); Eosinophil# 0.26 X10^3/uL; Eosinophils% 3.1 % (0-5); Hematocrit 43.4 % (37-47); Hemoglobin 13.8 g/dL (12.0-15.0); Lymphocyte # 1.91 X10^3/ul (0.83-4.51); Lymphocyte % 22.8 % (19-41); Mean Corp Hgb Conc 31.8 g/dL (32-36); Mean Corpuscular Hgb 26.9 pg (27.0-32.0); Mean Corpuscular Volume 84.6 fL (81-99); Mean Platelet Vol. 10.2 fl (6.2-12.0); Monocyte# 0.49 X10^3/uL; Monocyte% 5.8 % (0-10); NRBC Flagged by Analyzer 0 % (0-5); Neutrophil # 5.65 X10^3/uL (2.7-7.7); Neutrophil % 67.3 % (47-70); Platelet Count 386 K/mm3 (150-450); RBC Distribution Width CV 15.6 % (11.6-14.6); RBC Distribution Width SD 47.9 fl (35.1-43.9); Red Blood Count 5.13 M/mm3 (4.2-5.4); White Blood Count 8.4 K/mm3 (4.4-11.0)
[2022-02-25] MEDS: 0.9% Normal Saline 1,000 ML 1000 ML IV (21:00)
[2022-02-25 21:15] LABS: ALB/GLOB Ratio 0.7 RATIO (0.9-2.4); AST(SGOT) 15 U/L (15-37); Alanine Aminotransfer ALT/SGPT 18 U/L (13-56); Albumin, Serum 2.8 g/dL (3.2-5.0); Alkaline Phosphatase 105 U/L (45-117); Anion Gap 7 (5-15); BUN 11 mg/dL (7-18); BUN/Creat Ratio 8.3 RATIO (10-20); Calcium,Total 7.9 mg/dL (8.5-10.1); Chloride 109 mmol/L (98-107); Creatinine, Serum 1.33 mg/dL (0.55-1.02); EST Glomerular Filtration Rate 44 mL/min (>60); Est Glom Filt Rate - Afr Amer 53 mL/min (>60); Estimated Creatinine Clearance 46.48 ml/min; Glucose 114 mg/dL (74-106); Potassium 3.4 mmol/L (3.5-5.1); Protein, Total 6.8 g/dL (6.4-8.2); Sodium Level 140 mmol/L (136-145)
[2022-02-25 22:04] VITALS: BP 88/75; PULSE 84; RESP 15; O2SAT 99
[2022-02-25] MEDS: Potassium Chloride Oral Tablet 20 MEQ 40 MEQ PO (22:09)
== END 2022-02-25 22:14 | disposition home or self-care (01) ==
PROVIDERS: Emergency Provider Emergency Medicine; PCP Internal Medicine; Visit Provider Emergency Medicine
DX: R19.7 Diarrhea, unspecified (principal); E87.6 Hypokalemia
CPT/HCPCS: 74176; 80053; 85025; 96360; 99283; J7030

== ENCOUNTER → 2022-02-26 | Outpatient (CLI) | payer MEDICARE, MEDICAID, SELFPAY ==
[2022-02-26 15:23] LABS: Bacteria 0 SEEN /hpf (None Seen); Mucous, Urine 0 SEEN /hpf (<or=2+)
[2022-02-26 17:08] LABS: Color, Urine Yellow (Yellow); Glucose, Dipstick Normal (Normal); Ketone-Dipstick 5 mg/dl (Negative); Leukocyte Esterase-Dipstick 100 /ul (Negative); Nitrite-Dipstick Negative (Negative); Occult Blood-Urine 10 /ul (Negative); Protein-Dipstick 30 mg/dl (Negative); Urine Clarity Sl. Cloudy (Clear); Urine Urobilinogen Normal (Normal)
[2022-02-26 17:22] LABS: T4 Free Direct 1.29 ng/dL (0.76-1.46); Thyroid Stim Hormone (TSH) 1.61 uIU/mL (0.358-3.74)
[2022-02-26 17:33] LABS: Urine Bilirubin Dipstick 1 mg/dL (Negative)
[2022-02-26 17:34] LABS: Red Blood Cells-Urine 0-5 SEEN /hpf (0-5); Squamous Epithelial Cells - UA 0-5 SEEN /hpf (5-10); White Blood Cells 5-10 SEEN /hpf (0-5)
== END | disposition home or self-care (01) ==
LOC: BIMLAB 15:22
PROVIDERS: PCP Internal Medicine; Referring Provider Physician Assistant; Visit Provider Physician Assistant
DX: N20.1 Calculus of ureter (principal); R53.81 Other malaise; R19.7 Diarrhea, unspecified; R10.9 Unspecified abdominal pain
CPT/HCPCS: 36415; 81001; 84439; 84443; 87086; 87088

== ENCOUNTER → 2022-03-04 | Outpatient (CLI) | payer MEDICARE, MEDICAID, SELFPAY | END | disposition home or self-care (01) | LOC: LABSPEC 09:15 | PROVIDERS: PCP Internal Medicine; Referring Provider Physician Assistant; Visit Provider Physician Assistant | DX: R19.7 Diarrhea, unspecified (principal); K58.9 Irritable bowel syndrome, unspecified; R10.9 Unspecified abdominal pain | CPT/HCPCS: 82274; 83630; 87493; 87506 ==

== ENCOUNTER → 2022-05-13 | Outpatient (CLI) | payer MEDICARE, MEDICAID, SELFPAY ==
[2022-05-13 11:29] LABS: Erythrocyte Sedimentation Rate 18 mm/hr (0-30)
[2022-05-13 11:31] LABS: Absolute Neutrophil Count 6.3 X10^3/uL (2.0-7.7); Basophil# 0.04 X10^3/uL; Basophil% 0.4 % (0-1); Eosinophil# 0.42 X10^3/uL; Eosinophils% 4.6 % (0-5); Hematocrit 42.1 % (37-47); Hemoglobin 13.5 g/dL (12.0-15.0); Lymphocyte % 18.8 % (19-41); Mean Corp Hgb Conc 32.1 g/dL (32-36); Mean Corpuscular Hgb 27.7 pg (27.0-32.0); Mean Corpuscular Volume 86.4 fL (81-99); Mean Platelet Vol. 11.3 fl (6.2-12.0); Monocyte# 0.58 X10^3/uL; Monocyte% 6.4 % (0-10); NRBC Flagged by Analyzer 0 % (0-5); Neutrophil # 6.28 X10^3/uL (2.7-7.7); Neutrophil % 69.5 % (47-70); Platelet Count 394 K/mm3 (150-450); RBC Distribution Width CV 15.5 % (11.6-14.6); RBC Distribution Width SD 49.1 fl (35.1-43.9); Red Blood Count 4.87 M/mm3 (4.2-5.4); White Blood Count 9.1 K/mm3 (4.4-11.0)
[2022-05-13 11:49] LABS: ALB/GLOB Ratio 0.8 RATIO (0.9-2.4); AST(SGOT) 17 U/L (15-37); Alanine Aminotransfer ALT/SGPT 13 U/L (13-56); Albumin, Serum 3.3 g/dL (3.2-5.0); Alkaline Phosphatase 132 U/L (45-117); Anion Gap 8 (5-15); BUN 10 mg/dL (7-18); BUN/Creat Ratio 6.8 RATIO (10-20); CRP 6.61 mg/L (0.0-3.0); Calcium,Total 7.8 mg/dL (8.5-10.1); Chloride 102 mmol/L (98-107); Creatinine, Serum 1.47 mg/dL (0.55-1.02); EST Glomerular Filtration Rate 39 mL/min (>60); Est Glom Filt Rate - Afr Amer 47 mL/min (>60); Globulin 4.3 g/dL (2.2-4.2); Glucose 104 mg/dL (74-106); LDH 180 U/L (84-246); Potassium 2.8 mmol/L (3.5-5.1); Prolactin 6.1 ng/mL; Protein, Total 7.6 g/dL (6.4-8.2); Sodium Level 138 mmol/L (136-145)
[2022-05-14 15:08] LABS: Endomysial Antibody IgA Negative (Negative)
[2022-05-14 16:10] LABS: Anti-Centromere B Ab <0.2 AI (0.0-0.9); Anti-Chromatin <0.2 AI (0.0-0.9); Anti-Jo <0.2 AI (0.0-0.9); Anti-Scleroderma-70 AB <0.2 AI (0.0-0.9); RNP Ab 0.2 AI (0.0-0.9); SJOGREN'S Anti-SS-A test < 0.2 AI (0.0-0.9); SJOGREN'S Anti-SS-B test < 0.2 AI (0.0-0.9); Smith Ab <0.2 AI (0.0-0.9)
[2022-05-14 19:43] LABS: Anti-dsDNA Ab <1 IU/mL (0-9)
[2022-05-14 19:45] LABS: Immunoglobulin A 395 mg/dL (87-352); t-Transglutaminase IgA <2 U/mL (0-3)
[2022-05-16 00:06] LABS: Albumin 3.4 g/dL (2.9-4.4); Alpha-1-Globulins 0.2 g/dL (0.0-0.4); Alpha-2-Globulins 0.9 g/dL (0.4-1.0); Cytoplasmic Ab (C-ANCA) <1:20 titer (Neg:<1:20); Immunoglobulin A 393 mg/dL (87-352); Immunoglobulin E 46 IU/mL (6-495); Immunoglobulin G 1252 mg/dL (586-1602); Immunoglobulin M 77 mg/dL (26-217); PROEL- TOTAL PROTEIN 6.9 g/dL (6.0-8.5)
[2022-05-16 12:36] LABS: C-Peptide 4.8 ng/mL (1.1-4.4); Gastrin, Serum 228 pg/mL (0-115); Perinuclear Ab (P-ANCA) <1:20 titer (Neg:<1:20)
== END | disposition home or self-care (01) ==
PROVIDERS: PCP Internal Medicine; Visit Provider Nurse Practitioner Adult Health
DX: K58.9 Irritable bowel syndrome, unspecified (principal); E31.21 Multiple endocrine neoplasia [MEN] type I
CPT/HCPCS: 36415; 80053; 82784; 82785; 82941; 83516; 83615; 84146; 84165; 84681; 85025; 85652; 86140; 86225; 86235; 86255; 86256; 86334

== ENCOUNTER 2022-05-15 14:27 | Emergency (ER) | payer MEDICARE, MEDICAID, SELFPAY ==
[2022-05-15 14:28] VITALS: BP 124/69; PULSE 87; RESP 18; TEMP 36.6; O2SAT 100; BMI 46.5
--- NOTE | 2022-05-15 14:44 | EX.ED.DYSGE1 ---
HPI <JANES Rosario - Last Filed: 05/15/22 15:20> History of Present Illness Chief Complaint: Abn Labs Narrative Narrative: 57-year-old female with PMH of CKD, gastric sleeve, chronic hypokalemia presents with blood work yesterday showing a potassium of 2.8. She states she is on potassium tablets 20 mg twice daily and has been compliant. She is dealing with chronic diarrhea ongoing since January 2022 which may be contributing. She saw the GI doctor yesterday for initial appointment and is going to have an endoscopy and colonoscopy. 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 Obesity Obstructive sleep apnea Post-surgical hypoparathyroidism Stage III chronic kidney disease Home Medications cyanocobalamin (vitamin B-12) 500 mcg tablet 1,000 mcg PO DAILY@0800 Supplement 09/16/17 [History Last Taken 07/15/18] calcitriol 0.25 mcg capsule 0.5 mcg PO DAILY 10/12/17 [History Last Taken 07/15/18] furosemide 20 mg tablet 20 mg PO DAILY Fluid retention 10/03/19 [History Last Taken Unknown] atorvastatin 20 mg tablet 20 mg PO DAILY 09/24/21 [History Last Taken Unknown] cholecalciferol (vitamin D3) 50 mcg (2,000 unit) capsule (Vitamin D3) 1,250 mcg PO DAILY 09/24/21 [History Last Taken Unknown] levothyroxine 100 mcg tablet 100 mcg PO DAILY 09/24/21 [History Last Taken Unknown] magnesium oxide 400 mg PO DAILY 09/24/21 [History Last Taken Unknown] spironolactone 100 mg tablet 100 mg PO DAILY #30 tabs 12/17/21 [Rx Last Taken Unknown] fluticasone propionate 50 mcg/actuation blister powder for inhalation 1 inh inhalation DAILY PRN congestion #60 ea 02/18/22 [Rx Last Taken Unknown] pantoprazole 40 mg tablet,delayed release (Protonix) 20 mg PO DAILY 02/24/22 [History Last Taken Unknown] potassium chloride 40 mEq/15 mL oral liquid 20 meq PO DAILY 02/24/22 [History Last Taken Unknown] dicyclomine 20 mg tablet 20 mg PO BID-TID PRN abdominal discomfort #30 tabs 03/05/22 [Rx Last Taken Unknown] calcium citrate 250 mg PO BID #60 tabs 03/11/22 [Rx Last Taken Unknown] diphenoxylate-atropine 2.5 mg-0.025 mg tablet (Lomotil) 1 tab PO BID PRN diarrhea #20 tabs 03/30/22 [Rx Last Taken Unknown] vortioxetine 20 mg tablet 20 mg PO DAILY #30 tabs 04/09/22 [Rx Last Taken Unknown] alprazolam 0.5 mg tablet 0.5 mg PO BID PRN Anxiety #60 tabs 04/14/22 [Rx Last Taken Unknown] aripiprazole 10 mg tablet 10 mg PO DAILY #30 tabs 04/14/22 [Rx Last Taken Unknown] bupropion HCl 300 mg 24 hr tablet, extended release See Rx Instructions .Route .COMPLEX #30 tabs 04/14/22 [Rx Last Taken Unknown] ramelteon 8 mg tablet 8 mg PO QHS PRN sleep #30 tabs 04/14/22 [Rx Last Taken Unknown] potassium chloride 20 mEq oral packet 20 meq PO DAILY 7 days #7 ea 05/15/22 [Rx Last Taken Unknown] Allergy/AdvReac Type Severity Reaction Status Date / Time Iodinated Contrast Media Allergy Rash Verified 05/15/22 14:28 [DYEE] propranolol Allergy unknown Verified 05/15/22 14:28 iron AdvReac Other Verified 05/15/22 14:28 morphine AdvReac Rash Verified 05/15/22 14:28 ondansetron [From Zofran] AdvReac Other Verified 05/15/22 14:28 Family History Mother Stomach cancer Anemia Arthritis MEN, type 1 Father Pneumonia Anxiety Arthritis Depression Surgical History H/O right knee surgery History of cholecystectomy history of gastric sleeve History of hysterectomy History of parathyroidectomy history of right collar bone surgery Social History (Reviewed 05/13/22 @ 09:45 by Courtney Marcial adopted: No household members: none housing: apartment current occupational status: unemployed current occupation: disability history of recent travel: No sexually active: No Smoking Status: Never smoker Electronic Cigarette Use: not used alcohol intake: current alcohol intake frequency: holidays/special occasions only details: once or twice a year substance use type: does not use, former substance user and marijuana diet: low salt well-balanced diet: about half the time caffeine: Yes eating out: 4 or more times/week during the past year weight has: increased > 10 lbs what type of physical activity do you participate in: walking frequency: 1-2 times per week seatbelt use: always do you feel safe at home: Yes ROS <JANES Rosario - Last Filed: 05/15/22 15:20> ROS ED ROS Narrative Constitutional: Negative for fever, chills, malaise. CVS: Negative for palpitations, chest pain, syncope. Respiratory: Negative for shortness of breath, cough. GI: Positive for diarrhea. Negative for abdominal pain, melena, hematochezia. : Negative for dysuria, hematuria or frequency. Skin: Negative for rash, abscess, or wound. EXAM <JANES Rosario - Last Filed: 05/15/22 15:20> Physical Exam Narrative Exam Narrative: CONST: Patient sitting in no acute distress. EYES: Normal inspection. ENT: Normal inspection, moist mucous membranes. NECK: Normal inspection. RESP: No respiratory distress, CTAB. CVS: Regular rate and rhythm, no murmur, no gallop. ABD: Soft and nontender, no guarding or rebound, nondistended. SKIN: Color normal, no rash, warm, dry, intact. EXTREMITIES: Normal appearance, no pedal edema. NEURO: Oriented x4. PSYCH: Normal affect. Const Vital Signs: 05/15/22 14:28 05/15/22 15:17 Temperature 97.8 F Temperature Source Temporal Pulse Rate 87 Respiratory Rate 18 Respiratory Pattern Normal Blood Pressure 124/69 H Blood Pressure Mean 87 Pulse Ox 100 Oxygen Delivery Method Room Air <Dr. Galdino Camacho MD - Last Filed: 05/15/22 17:18> Physical Exam Const Vital Signs: 05/15/22 14:28 05/15/22 15:17 Temperature 97.8 F Temperature Source Temporal Pulse Rate 87 Respiratory Rate 18 Respiratory Pattern Normal Blood Pressure 124/69 H Blood Pressure Mean 87 Pulse Ox 100 Oxygen Delivery Method Room Air [facility] <JANES Rosario - Last Filed: 05/15/22 15:20> [facility] Narrative Medical decision making narrative: Patient has asymptomatic low potassium at 2.8. Prior levels were 3.0 and 3.4. She is on chronic potassium tablets 20 mEq twice a day. She is likely having hypokalemia from her chronic diarrhea and is seeing a GI doctor to evaluate this. Since she is asymptomatic and an oral dose of 40 mill equivalents of liquid potassium was given today. I was going to prescribe liquid for home but she states it tastes bad and she would rather have a powder. I sent a prescription for potassium powder 20 mill equivalents once daily so she can better absorb it. She should see her primary care on Wednesday to have levels rechecked. She was discharged in stable condition. I have personally performed a face to face assessment of the patient and have reviewed the DM Note. I performed a substantive portion of the visit including all aspects of the following. My garces findings include: History is remarkable for asymptomatic hypokalemia. Patient has chronic diarrhea. She is presently taking 20 mEq potassium twice a day. She is taking a tablet. The tablet is in a wax matrix. In all likelihood she is not absorbing the potassium because of her chronic diarrhea since she had a sleeve procedure performed. Exam is unremarkable Medical Decision Making blood work was just performed. The there is no need for blood work to be repeated. Plan is p.o. potassium and prescription for effervescent tablets or powder since she states the liquid is not palatable. Other additions or changes: Change potassium supplement from tablet to powder or effervescent tablet. <Dr. Galdino Camacho MD - Last Filed: 05/15/22 17:18> [facility] Narrative Medical decision making narrative: I have personally performed a face to face assessment of the patient and have reviewed the DM Note. I performed a substantive portion of the visit including all aspects of the following. My garces findings include: History is remarkable for asymptomatic hypokalemia. Patient has chronic diarrhea. She is presently taking 20 mEq potassium twice a day. She is taking a tablet. The tablet is in a wax matrix. In all likelihood she is not absorbing the potassium because of her chronic diarrhea since she had a sleeve procedure performed. Exam is unremarkable Medical Decision Making blood work was just performed. The there is no need for blood work to be repeated. Plan is p.o. potassium and prescription for effervescent tablets or powder since she states the liquid is not palatable. Other additions or changes: Change potassium supplement from tablet to powder or effervescent tablet. Discharge Plan Triage Chief Complaint: Abn Labs ED Midlevel Provider: Marlys Alex ED Provider: Galdino Camacho Dx/Rx/DC Orders Clinical Impression: Acute hypokalemia, Chronic kidney disease, stage 3, Multiple endocrine neoplasia type 1 (MEN1), Post-surgical hypoparathyroidism, Obesity, Chronic diarrhea Instructions: Hypokalemia Dc Prescriptions: New potassium chloride 20 mEq packet 20 meq PO DAILY 7 Days Qty: 7 0RF No Action ramelteon 8 mg tablet 8 mg PO QHS PRN (Reason: sleep) Qty: 30 2RF aripiprazole 10 mg tablet 10 mg PO DAILY Qty: 30 2RF bupropion HCl 300 mg tablet extended release 24 hr See Rx Instructions .ROUTE .COMPLEX Qty: 30 2RF Dose Instruction: take 1 tablet by mouth once daily for MOOD Rx Instructions: take 1 tablet by mouth once daily for MOOD alprazolam 0.5 mg tablet 0.5 mg PO BID PRN (Reason: Anxiety) Qty: 60 1RF fluticasone propionate 50 mcg/actuation blister with device 1 inh INHALATION DAILY PRN (Reason: congestion) Qty: 60 0RF calcium citrate 250 mg calcium tablet 250 mg PO BID Qty: 60 12RF cyanocobalamin (vitamin B-12) 500 MCG tablet 1,000 mcg PO DAILY@0800 calcitriol 0.25 MCG capsule 0.5 mcg PO DAILY furosemide 20 MG tablet 20 mg PO DAILY atorvastatin 20 mg Tablet 20 mg PO DAILY levothyroxine 100 mcg Tablet 100 mcg PO DAILY cholecalciferol (vitamin D3) [Vitamin D3] 50 mcg (2,000 unit) Capsule 1,250 mcg PO DAILY magnesium oxide 400 mg magnesium Tablet 400 mg PO DAILY spironolactone 100 mg tablet 100 mg PO DAILY Qty: 30 0RF potassium chloride 40 mEq/15 mL liquid 20 meq PO DAILY pantoprazole [Protonix] 40 mg tablet,delayed release (DR/EC) 20 mg PO DAILY dicyclomine 20 mg tablet 20 mg PO BID-TID PRN (Reason: abdominal discomfort) Qty: 30 0RF diphenoxylate-atropine [Lomotil] 2.5-0.025 mg tablet 1 tab PO BID PRN (Reason: diarrhea) Qty: 20 0RF vortioxetine 20 mg tablet 20 mg PO DAILY Qty: 30 2RF Primary Care Provider: Alondra Davies Referrals: Alondra Davies MD [Primary Care Provider] - Activity Restrictions/Additional Instructions: Your body likely is not absorbing the potassium pills so we changed it to liquid. You take 10 mill equivalents twice a day which is 7.5 mL of medicine and have your doctor recheck your blood work on Wednesday. Disposition Disposition: Home, Self Care Discharge Date/Time: 05/15/22 15:29
[2022-05-15] MEDS: Potassium Chloride Oral Soln 20 MEQ/15 ML UDC 40 MEQ PO (15:25)
== END 2022-05-15 15:29 | disposition home or self-care (01) ==
LOC: ED 14:56
PROVIDERS: Emergency Provider Emergency Medicine; PCP Internal Medicine; Visit Provider Emergency Medicine
DX: E87.6 Hypokalemia (principal); E89.2 Postprocedural hypoparathyroidism; E31.21 Multiple endocrine neoplasia [MEN] type I; N18.30 Chronic kidney disease, stage 3 unspecified; G47.33 Obstructive sleep apnea (adult) (pediatric); R19.7 Diarrhea, unspecified; E66.9 Obesity, unspecified
CPT/HCPCS: 99283

== ENCOUNTER → 2022-05-21 | Outpatient (CLI) | payer MEDICARE, MEDICAID, SELFPAY ==
[2022-05-26 08:58] LABS: Calprotectin, Stool 205 ug/g (0-120); Fats, Neutral Normal (.); Fats, Total Increased (.)
[2022-05-27 10:32] LABS: Pancreatic Elastase, Fecal < 50 (>200)
== END | disposition home or self-care (01) ==
LOC: LABSPEC 10:49
PROVIDERS: PCP Internal Medicine; Referring Provider Nurse Practitioner Adult Health; Visit Provider Nurse Practitioner Adult Health
DX: K58.0 Irritable bowel syndrome with diarrhea (principal)
CPT/HCPCS: 82653; 82705; 83630; 83993

== ENCOUNTER 2022-06-06 10:45 | Emergency (ER) | payer MEDICARE, MEDICAID, SELFPAY ==
[2022-06-06 10:46] VITALS: BP 156/106; PULSE 103; RESP 14; TEMP 36.6; O2SAT 95; BMI 46.3
--- NOTE | 2022-06-06 11:06 | RAD_ITS ---
HISTORY: pain. TECHNIQUE: XR Foot 2 Views. COMPARISON: None. FINDINGS: BONES : No acute fracture identified. Mineralization unremarkable. Mild calcaneal enthesopathy. JOINTS: No dislocation. Mild degenerative changes with small degenerative osteophytes of the ankle and foot. SOFT TISSUES: No radiopaque foreign body identified. RAD/Foot 2 Views IMPRESSION: No acute fracture or dislocation identified in the right foot. Electronically Signed: Nohemi Mckeon MD at 13:27 EDT ,
--- NOTE | 2022-06-06 11:09 | EX.ED.DYSGE1 ---
HPI <JANES Cruz - Last Filed: 06/06/22 12:44> History of Present Illness Chief Complaint: Lower Extremity Injury Narrative Narrative: Patient presenting today with pain and swelling in her right first toe that for started last night. She has concerns that she could have broke a bone in her foot as she has done that before just with walking. She states that she has a chronic Calcium deficiency as well as chronic hypokalemia. She denies any injury to her right foot. She denies a history of gout. She states that she recently increased her potassium supplements but still feels like she could be low as she has been tremoring a lot and has had chronic diarrhea since January. PMH includes history of a gastric sleeve, MEN type 1, and CKD. 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 Obesity Obstructive sleep apnea Post-surgical hypoparathyroidism Stage III chronic kidney disease Home Medications cyanocobalamin (vitamin B-12) 500 mcg tablet 1,000 mcg PO DAILY@0800 Supplement 09/16/17 [History Last Taken 07/15/18] furosemide 20 mg tablet 20 mg PO DAILY Fluid retention 10/03/19 [History Last Taken Unknown] atorvastatin 20 mg tablet 20 mg PO DAILY 09/24/21 [History Last Taken Unknown] cholecalciferol (vitamin D3) 50 mcg (2,000 unit) capsule (Vitamin D3) 1,250 mcg PO DAILY 09/24/21 [History Last Taken Unknown] levothyroxine 100 mcg tablet 100 mcg PO DAILY 09/24/21 [History Last Taken Unknown] magnesium oxide 400 mg PO DAILY 09/24/21 [History Last Taken Unknown] spironolactone 100 mg tablet 100 mg PO DAILY #30 tabs 12/17/21 [Rx Last Taken Unknown] fluticasone propionate 50 mcg/actuation blister powder for inhalation 1 inh inhalation DAILY PRN congestion #60 ea 02/18/22 [Rx Last Taken Unknown] pantoprazole 40 mg tablet,delayed release (Protonix) 20 mg PO DAILY 02/24/22 [History Last Taken Unknown] potassium chloride 40 mEq/15 mL oral liquid 20 meq PO DAILY 02/24/22 [History Last Taken Unknown] dicyclomine 20 mg tablet 20 mg PO BID-TID PRN abdominal discomfort #30 tabs 03/05/22 [Rx Last Taken Unknown] calcium citrate 250 mg PO BID #60 tabs 03/11/22 [Rx Last Taken Unknown] diphenoxylate-atropine 2.5 mg-0.025 mg tablet (Lomotil) 1 tab PO BID PRN diarrhea #20 tabs 03/30/22 [Rx Last Taken Unknown] vortioxetine 20 mg tablet 20 mg PO DAILY #30 tabs 04/09/22 [Rx Last Taken Unknown] alprazolam 0.5 mg tablet 0.5 mg PO BID PRN Anxiety #60 tabs 04/14/22 [Rx Last Taken Unknown] aripiprazole 10 mg tablet 10 mg PO DAILY #30 tabs 04/14/22 [Rx Last Taken Unknown] bupropion HCl 300 mg 24 hr tablet, extended release See Rx Instructions .Route .COMPLEX #30 tabs 04/14/22 [Rx Last Taken Unknown] ramelteon 8 mg tablet 8 mg PO QHS PRN sleep #30 tabs 04/14/22 [Rx Last Taken Unknown] potassium chloride 20 mEq oral packet 20 meq PO DAILY 7 days #7 ea 05/15/22 [Rx Last Taken Unknown] calcitriol 0.25 mcg capsule 0.5 mcg PO DAILY #30 caps 05/25/22 [Rx Last Taken Unknown] lrndeo-bunjsmrr-vrzegkv 40,000-126,000-168,000 unit capsule, delay rel (Zenpep) See Rx Instructions .Route .COMPLEX #300 caps 05/28/22 [Rx Last Taken Unknown] alprazolam 0.5 mg tablet (Xanax) 0.5 mg PO DAILY #7 tabs 06/06/22 [Rx Last Taken Unknown] oxycodone-acetaminophen 5 mg-325 mg tablet (Endocet) 1 tab PO Q8H PRN pain 3 days #7 tabs 06/06/22 [Rx Last Taken Unknown] prednisone 20 mg tablet 40 mg PO DAILY #5 tabs 06/06/22 [Rx Last Taken Unknown] Allergy/AdvReac Type Severity Reaction Status Date / Time Iodinated Contrast Media Allergy Rash Verified 06/06/22 10:48 [DYEE] propranolol Allergy unknown Verified 06/06/22 10:48 iron AdvReac Other Verified 06/06/22 10:48 morphine AdvReac Rash Verified 06/06/22 10:48 ondansetron [From Zofran] AdvReac Other Verified 06/06/22 10:48 Family History Mother Stomach cancer Anemia Arthritis MEN, type 1 Father Pneumonia Anxiety Arthritis Depression Surgical History H/O right knee surgery History of cholecystectomy history of gastric sleeve History of hysterectomy History of parathyroidectomy history of right collar bone surgery Social History adopted: No household members: none housing: apartment current occupational status: unemployed current occupation: disability history of recent travel: No sexually active: No Smoking Status: Never smoker Electronic Cigarette Use: not used alcohol intake: current alcohol intake frequency: holidays/special occasions only details: once or twice a year substance use type: does not use, former substance user and marijuana diet: low salt well-balanced diet: about half the time caffeine: Yes eating out: 4 or more times/week during the past year weight has: increased > 10 lbs what type of physical activity do you participate in: walking frequency: 1-2 times per week seatbelt use: always do you feel safe at home: Yes ROS <JANES Cruz - Last Filed: 06/06/22 12:44> ROS ED Constitutional Constitutional ED: Denies chills, fever(s) or sweats Eyes Eyes: Denies blurry vision or diplopia Cardiovascular Cardiovascular: Denies chest pain or palpitations Respiratory/Chest Respiratory/Chest: Denies cough or dyspnea Gastrointestinal Gastrointestinal: Denies abdominal pain, nausea or vomiting Genitourinary Genitourinary ED: Denies dysuria, hematuria or urinary urgency Musculoskeletal Musculoskeletal: Reports arthralgias; Denies myalgias Integumentary Denies abscess, Abrasions or rash Neurologic Neurologic: Denies confusion, dizziness or paresthesias Psychiatric Psychiatric: Denies anxiety, depression, suicidal ideation or suicidal thoughts EXAM <JANES Cruz - Last Filed: 06/06/22 12:44> Physical Exam Const Vital Signs: 06/06/22 10:46 Temperature 97.8 F Temperature Source Temporal Pulse Rate 103 H Respiratory Rate 14 Blood Pressure 156/106 H Blood Pressure Mean 122 Pulse Ox 95 Oxygen Delivery Method Room Air Positive well nourished, well developed and no apparent distress General Appearance ED: well developed HEENT Reports normocephalic and head/scalp atraumatic Mouth ED: Yes moist mucous membranes normal Eyes PERRL and EOMs intact bilaterally Neck full ROM and supple Chest Wall inspection of chest normal Resp normal respiratory effort and clear to auscultation bilaterally Cardio regular rate and regular rhythm GI soft to palpation, non-tender, non-distended and no masses Back/Spine normal ROM and normal to inspection Extremity normal to inspection and full ROM Extremity Narrative: Right first toe has erythema, pain to palpation, and mild edema to the MCP joint. Pulses 2+ and equal bilaterally, good capillary refill, sensation intact Neuro oriented x3, CN's II-XII intact bilaterally, moves all extremities, no focal motor deficits and no sensory deficits noted Sensorium / Orientation: awake and alert Psych mental status grossly normal and thought process normal Skin no rashes or lesions noted and no wounds <Dr. Alan Weinstein DO - Last Filed: 06/06/22 12:36> Physical Exam Const Vital Signs: 06/06/22 10:46 Temperature 97.8 F Temperature Source Temporal Pulse Rate 103 H Respiratory Rate 14 Blood Pressure 156/106 H Blood Pressure Mean 122 Pulse Ox 95 Oxygen Delivery Method Room Air MDM <JANES Cruz - Last Filed: 06/06/22 12:44> [facility] Narrative Medical decision making narrative: Patient presenting with pain in her right big toe, the area along the MCP joint does have mild edema and erythema. Physical exam findings are consistent with gout. She has never had a history of gout. However, she has broke her foot before just by walking due to her calcium deficiency therefore, we will obtain an x-ray to rule out fracture. Also, patient is tremoring on examination and states she feels like her potassium level is low. A BMP will be assessed as well as a magnesium level. Patient's potassium level today is 4.4, her calcium level was 7.3 but she does take calcium supplementation. She will be treated for her gout. I suspect patient's tremors are due to her anxiety as she has been taking Xanax daily and has been out of it for the past week. I will write her for a few of these however, she needs to follow-up with her PCP on this. She will be discharged home in stable condition and is comfortable with plan. I have personally performed a face to face assessment of the patient and have reviewed the DM Note. I performed a substantive portion of the visit including all aspects of the following. My garces findings include: History is [patient presents with pain in her right great toe that started yesterday. No injury. Patient states she is fractured her foot just by walking in the past. She is worried about a fracture. Patient also states that she thinks her potassium might be low because she feels little bit shaky. Patient does take potassium regularly. Patient also states that she ran out of her Xanax about a week ago and she has taken occasionally some extra Xanax so her insurance company will not fill her prescription until next week. No history of gout.] Exam is [HEENT-PERRLA, EOMI. Cranial nerves II through XII grossly intact. TMs clear. Mucous membranes moist. No adenopathy. Cardiovascular-regular rate and rhythm without murmur or ectopy Lungs-clear to auscultation, chest wall stable without crepitus or subcu emphysema Abdomen-normoactive bowel sounds, soft, nontender, no rebound or rigidity, no peritoneal signs. Extremities-intact ?4, normal range of motion, normal pulses, atraumatic. Right great toe-patient has tenderness over the first MTP joint. Patient has some faint erythema noted. No cellulitic changes. No obvious deformity. No ecchymosis or bruising.] Medical Decison Making [patient had an x-ray of the right foot that was interpreted by myself as no acute fractures. Her potassium was normal. Calcium was low at 7.3. She does take daily calcium. She is advised to discuss with her PCP regarding increasing her dose. We will write her a prescription for Xanax for 10 tablets. Patient will be started on prednisone and hydrocodone for pain. I suspect she likely has gout.] Other additions or changes: [None] Lab Data Labs: Laboratory Results - last 24 hr 06/06/22 11:36 Sodium 139 Potassium 4.4 Chloride 106 Carbon Dioxide 29.0 Anion Gap 4 L BUN 18 Creatinine 1.44 H Estim Creat Clear Calc 42.42 Est GFR (MDRD) Af Amer 48 L Est GFR (MDRD) Non-Af 40 L BUN/Creatinine Ratio 12.5 Glucose 112 H Calcium 7.3 L Magnesium 1.9 Radiography Diagnostic Testin view x-rays right foot obtained interpreted by myself as no acute fractures or dislocations. Official report from radiology pending. X-ray interpreted and reviewed by attending ED physician <Dr. Alan Weinstein, DO - Last Filed: 06/06/22 12:36> [facility] MDM Narrative Medical decision making narrative: Patient presenting with pain in her right big toe, the area along the MCP joint does have mild edema and erythema. Physical exam findings are consistent with gout. She has never had a history of gout. However, she has broke her foot before just by walking due to her calcium deficiency therefore, we will obtain an x-ray to rule out fracture. Also, patient is tremoring on examination and states she feels like her potassium level is low. A BMP will be assessed as well as a magnesium level. I have personally performed a face to face assessment of the patient and have reviewed the DM Note. I performed a substantive portion of the visit including all aspects of the following. My garces findings include: History is [patient presents with pain in her right great toe that started yesterday. No injury. Patient states she is fractured her foot just by walking in the past. She is worried about a fracture. Patient also states that she thinks her potassium might be low because she feels little bit shaky. Patient does take potassium regularly. Patient also states that she ran out of her Xanax about a week ago and she has taken occasionally some extra Xanax so her insurance company will not fill her prescription until next week. No history of gout.] Exam is [HEENT-PERRLA, EOMI. Cranial nerves II through XII grossly intact. TMs clear. Mucous membranes moist. No adenopathy. Cardiovascular-regular rate and rhythm without murmur or ectopy Lungs-clear to auscultation, chest wall stable without crepitus or subcu emphysema Abdomen-normoactive bowel sounds, soft, nontender, no rebound or rigidity, no peritoneal signs. Extremities-intact ?4, normal range of motion, normal pulses, atraumatic. Right great toe-patient has tenderness over the first MTP joint. Patient has some faint erythema noted. No cellulitic changes. No obvious deformity. No ecchymosis or bruising.] Medical Decison Making [patient had an x-ray of the right foot that was interpreted by myself as no acute fractures. Her potassium was normal. Calcium was low at 7.3. She does take daily calcium. She is advised to discuss with her PCP regarding increasing her dose. We will write her a prescription for Xanax for 10 tablets. Patient will be started on prednisone and hydrocodone for pain. I suspect she likely has gout.] Other additions or changes: [None] Lab Data Attestation: I reviewed the patient's lab results. Labs: Laboratory Results - last 24 hr 06/06/22 11:36 Sodium 139 Potassium 4.4 Chloride 106 Carbon Dioxide 29.0 Anion Gap 4 L BUN 18 Creatinine 1.44 H Estim Creat Clear Calc 42.42 Est GFR (MDRD) Af Amer 48 L Est GFR (MDRD) Non-Af 40 L BUN/Creatinine Ratio 12.5 Glucose 112 H Calcium 7.3 L Magnesium 1.9 Radiography Diagnostic Testin view x-rays right foot obtained interpreted by myself as no acute fractures or dislocations. Official report from radiology pending. Discharge Plan Triage Chief Complaint: Lower Extremity Injury ED Midlevel Provider: Mckayla Garcia ED Provider: Alan Weinstein Dx/Rx/DC Orders Clinical Impression: Gout, Anxiety Instructions: ED Gout Prescriptions: New prednisone 20 mg tablet 40 mg PO DAILY Qty: 5 0RF alprazolam [Xanax] 0.5 mg tablet 0.5 mg PO DAILY Qty: 7 0RF oxycodone-acetaminophen [Endocet] 5-325 mg tablet 1 tab PO Q8H PRN (Reason: pain) 3 Days Qty: 7 0RF No Action ramelteon 8 mg tablet 8 mg PO QHS PRN (Reason: sleep) Qty: 30 2RF aripiprazole 10 mg tablet 10 mg PO DAILY Qty: 30 2RF bupropion HCl 300 mg tablet extended release 24 hr See Rx Instructions .ROUTE .COMPLEX Qty: 30 2RF Dose Instruction: take 1 tablet by mouth once daily for MOOD Rx Instructions: take 1 tablet by mouth once daily for MOOD alprazolam 0.5 mg tablet 0.5 mg PO BID PRN (Reason: Anxiety) Qty: 60 1RF fluticasone propionate 50 mcg/actuation blister with device 1 inh INHALATION DAILY PRN (Reason: congestion) Qty: 60 0RF calcium citrate 250 mg calcium tablet 250 mg PO BID Qty: 60 12RF cyanocobalamin (vitamin B-12) 500 MCG tablet 1,000 mcg PO DAILY@0800 furosemide 20 MG tablet 20 mg PO DAILY atorvastatin 20 mg Tablet 20 mg PO DAILY levothyroxine 100 mcg Tablet 100 mcg PO DAILY cholecalciferol (vitamin D3) [Vitamin D3] 50 mcg (2,000 unit) Capsule 1,250 mcg PO DAILY magnesium oxide 400 mg magnesium Tablet 400 mg PO DAILY spironolactone 100 mg tablet 100 mg PO DAILY Qty: 30 0RF potassium chloride 40 mEq/15 mL liquid 20 meq PO DAILY pantoprazole [Protonix] 40 mg tablet,delayed release (DR/EC) 20 mg PO DAILY potassium chloride 20 mEq packet 20 meq PO DAILY 7 Days Qty: 7 0RF dicyclomine 20 mg tablet 20 mg PO BID-TID PRN (Reason: abdominal discomfort) Qty: 30 0RF diphenoxylate-atropine [Lomotil] 2.5-0.025 mg tablet 1 tab PO BID PRN (Reason: diarrhea) Qty: 20 0RF vortioxetine 20 mg tablet 20 mg PO DAILY Qty: 30 2RF calcitriol 0.25 mcg capsule 0.5 mcg PO DAILY Qty: 30 1RF Zenpep 40,000-126,000- 168,000 unit capsule,delayed release(DR/EC) See Rx Instructions .ROUTE .COMPLEX Qty: 300 5RF Rx Instructions: take 1 capsule with snack, take 2-3 capsules with meals Primary Care Provider: Alondra Davies Referrals: Alondra Davies MD [Primary Care Provider] - 3-5 Days Activity Restrictions/Additional Instructions: Follow-up with your PCP return for any worsening of symptoms. Do not take Percocet and Xanax together. Disposition Disposition: Home, Self Care
[2022-06-06 11:59] LABS: Anion Gap 4 (5-15); BUN 18 mg/dL (7-18); BUN/Creat Ratio 12.5 RATIO (10-20); Calcium,Total 7.3 mg/dL (8.5-10.1); Chloride 106 mmol/L (98-107); Creatinine, Serum 1.44 mg/dL (0.55-1.02); EST Glomerular Filtration Rate 40 mL/min (>60); Est Glom Filt Rate - Afr Amer 48 mL/min (>60); Estimated Creatinine Clearance 42.42 ml/min; Glucose 112 mg/dL (74-106); Magnesium 1.9 mg/dL (1.6-2.6); Potassium 4.4 mmol/L (3.5-5.1); Sodium Level 139 mmol/L (136-145)
[2022-06-06] MEDS: Acetaminophen 325 MG Tablet 650 MG PO (12:54)
== END 2022-06-06 12:56 | disposition home or self-care (01) ==
PROVIDERS: Physician Assistant; Emergency Provider Emergency Medicine; PCP Internal Medicine; Visit Provider Emergency Medicine
DX: M10.9 Gout, unspecified (principal); N18.30 Chronic kidney disease, stage 3 unspecified; F41.9 Anxiety disorder, unspecified; G47.33 Obstructive sleep apnea (adult) (pediatric)
CPT/HCPCS: 36415; 73620; 80048; 83735; 99283

== ENCOUNTER 2022-07-08 09:12 | Day surgery (SDC) | payer MEDICARE, MEDICAID, SELFPAY ==
[2022-07-08] VITALS (7 sets, daily range): BP systolic 105–125; BP diastolic 54–85; PULSE 81–86; RESP 12–18; TEMP 36.3–37.1; O2SAT 95–100; BMI 46.9
--- NOTE | 2022-07-08 | COLBX_PTH ---
PATIENT: JACOBY ESCALERA LOC: EN U#:[id number] AGE/SX: 57/F ROOM: RE07/08/[address]: Dr. Triston Brito DO : 1965 BED: DIS: 07/08/2022 SPEC #: [id number] RECD: 07/08/22 12:56 STATUS: DRISS KRISTEN #: [id number] MARINO: 07/08/22 00:[address]: Triston Brito DEPT: SURGICAL PATHOLOGY RECD BY: Shiva Shaw ENTERED: 07/08/22 12:56 SP TYPE: COLON BX OTHR DR: MD Alondra Simon OLS, MD Tissues: A - Duodenum, NOS B - Ileum, NOS C - COLON BIOPSY D - Transverse colon Procedures: Surgery Specimen Level IV HEADER OPERATION: Colonoscopy, EGD ([facility] [place]), biopsy PRE-OP DIAGNOSIS: Chronic diarrhea, multiple endocrine neoplasia (MEN) type I TISSUE SUBMITTED: A ? Duodenum biopsy, B ? Terminal ileum biopsy, C ? Random colon biopsies, D ? Transverse colon polyp MICROSCOPIC DIAGNOSIS A. Duodenum, biopsy: Fragments of duodenal mucosa, no pathologic diagnosis. B. Terminal ileum, biopsy: Fragments of small intestinal mucosa, no pathologic diagnosis. C. Colon, random biopsy: Fragments of colonic mucosa, no pathologic diagnosis. D. Transverse colon polyp, biopsy: Fragments of tubular adenoma. SJ:jerrod 07/09/2022 MICROSCOPIC DESCRIPTION Slides are reviewed. GROSS DESCRIPTION A - Received in fixative is one container labeled with the patient's name and designated biopsy duodenum. The specimen consists of multiple irregular fragments of light cain soft tissue that in aggregate measure 1.0 x 0.3 x 0.1 cm. The specimen is totally submitted in one cassette. B - Received in fixative is one container labeled with the patient's name and designated terminal ileum biopsy. The specimen consists of multiple irregular fragments of light cain soft tissue that in aggregate measure 1.0 x 0.4 x 0.1 cm. The specimen is totally submitted in one cassette. C - Received in fixative is one container labeled with the patient's name and designated random colon biopsy. The specimen consists of multiple irregular fragments of light cain soft tissue that in aggregate measure 1.0 x 0.5 x 0.1 cm. The specimen is totally submitted in one cassette. D - Received in fixative is one container labeled with the patient's name and designated transverse colon polyp. The specimen consists of multiple irregular fragments of light cain soft tissue that in aggregate measure 1.5 x 0.2 x 0.1 cm. The specimen is totally submitted in one cassette. / PORSHA:jerrod 07/08/2022 TC:1 CPT: 21410 x4
--- NOTE | 2022-07-08 09:38 | PCM.HP.BLA ---
History and Physical Date of Admission: 07/08/22 57 F who presents to the office today for severe watery urgent diarrhea that began in January 2022.? She had been on antibiotics for dental procedures however C. difficile test was negative.? Diarrhea started suddenly, no prior history of severe diarrhea like this.? She was getting painful spasms however those have lessened over time, and diarrhea is somewhat controlled with daily loperamide.? If she does not take loperamide then she has multiple episodes of diarrhea daily along with accidents because of urgency.? She has had nocturnal diarrhea.? Loperamide is more effective than Lomotil was.? She had multiple ED visits in February for dehydration and hypokalemia.? She feels like her potassium is probably low again now, has follow-up like she might pass out.? She has lost at least 30 pounds since the diarrhea began.? No melena or hematochezia.? She tried dietary changes without relief. She does not have nausea or vomiting.? No dysphagia.? She does get heartburn for which she takes omeprazole most days since she ran out of her prescription of pantoprazole.? No significant abdominal pains at this time. Several CTs w/o contrast in Fall 2021--diffuse atrophy of pancreas. She gets a rash from contrast dye but is able to have it with pre-treatment meds. 02/2022 lactoferrin positive, enteric pathogens negative, C diff negative, stool occult blood negative Medical history is significant for MEN1, she has been followed by endocrine surgeon Dr. 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 She sees Dr. Lombardo for hypothyroidism and hypoparathyroidism.? She has CKD 3 and is scheduled to see a recruiting scheduler.? Dr. 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 Hx gastric sleeve for morbid obesity. Hx cholecystectomy. Hx hysterectomy. She sees psychiastrist Dr Terrell for anxiety and depression. ROS Const Constitutional: Positive for fatigue and weight change ENT ENT: No difficulty swallowing Gastro GI: Positive for abdominal pain, bloating, diarrhea, heartburn, excessive flatus and nausea/dyspepsia; No belching, change in bowel habits, change in stool character, coffee ground emesis, constipation, cramping, difficulty swallowing, feeling full early, incontinent of stools, Vomiting blood/hematemesis, Blood in stool, loose stools, Black,tarry stools, pain with swallowing, vomiting or other Musc Musculoskeletal: Positive for joint pain, joint swelling, muscle cramps, muscle weakness, numbness, stiffness, tingling and Arthritis Skin Skin: No yellowing of the eye or itchy eyes Neuro Neurology: Positive for numbness, tingling and tremor(s) Psych Psychiatric: Positive for anxiety and Positive for depression Endo Endocrine: Positive for fatigue and weight change Aller/Imm Allergy/Immunologic: No itchy eyes Tavon/Lymp Hematologic/Lymphatic: Positive for easy bruising; No easy bleeding Exam Const General: cooperative Nutritional Appearance: obese Orientation: alert, awake and oriented x3 Other: appears not to feel well but nontoxic Eyes Sclera: sclerae normal Other: dark circles under eyes Resp Effort & Inspection: normal respiratory effort GI Palpation: soft, no hepatosplenomegaly, no masses and nontender Neuro Speech: speech normal Gait: normal gait Psych Mood: congruent mood Quality Reporting Tobacco Screening ([facility] 138) Smoking Status: Never smoker Assessment and Plan Assessment and Plan (1) Chronic diarrhea: ?Status:?Chronic ?Plan: 57 yr old female with chronic diarrhea and weight loss in the setting of MEN1. Hx of subtotal parathyroidectomy with autotransplantation in arm by Dr Sigala at [facility], hx nodule in head of pancreas. Consider pancreatic or other neuroendocrine tumor as cause of her chronic diarrhea. Case discussed with Dr Brito. Labs to include gastrin, chromagranin A, pre-insulin, pancreatic polypeptide, C-peptide. Lab unable to get somatostatin. 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 ? ? Orders: Orders Gastrin, Serum Today K52.9 - Noninfective gastroenteritis and colitis, unspecified ? Calprotectin, Stool Today K52.9 - Noninfective gastroenteritis and colitis, unspecified ? Fecal Fat, Qualitative Today K52.9 - Noninfective gastroenteritis and colitis, unspecified ? Stool Lactoferrin/WBC Today K52.9 - Noninfective gastroenteritis and colitis, unspecified, K58.9 - Irritable bowel syndrome without diarrhea ? Pancreatic Elastase, Fecal Today K52.9 - Noninfective gastroenteritis and colitis, unspecified ? Comprehensive Metabolic Profil Today K52.9 - Noninfective gastroenteritis and colitis, unspecified ? CRP Today K52.9 - Noninfective gastroenteritis and colitis, unspecified ? LDH Today K52.9 - Noninfective gastroenteritis and colitis, unspecified ? CBC W/Diff, Automated Today K52.9 - Noninfective gastroenteritis and colitis, unspecified, K58.9 - Irritable bowel syndrome without diarrhea ? Erythrocyte Sed Rate Today K52.9 - Noninfective gastroenteritis and colitis, unspecified ? MONAE Comprehensive Panel Today K52.9 - Noninfective gastroenteritis and colitis, unspecified ? ANCA Today K52.9 - Noninfective gastroenteritis and colitis, unspecified ? Celiac Disease Profile Today K52.9 - Noninfective gastroenteritis and colitis, unspecified ? Immunoglobulins G/A/M/E Today K52.9 - Noninfective gastroenteritis and colitis, unspecified ? SETH + Protein Elect, Serum Today K52.9 - Noninfective gastroenteritis and colitis, unspecified ? Miscellaneous Lab Procedure Today K52.9 - Noninfective gastroenteritis and colitis, unspecified ? C-Peptide Today K52.9 - Noninfective gastroenteritis and colitis, unspecified ? Prolactin Today K52.9 - Noninfective gastroenteritis and colitis, unspecified ? Miscellaneous Lab Procedure 2 Today E31.21 - 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, K52.9 - Noninfective gastroenteritis and colitis, unspecified ? Miscellaneous Lab Procedure 3 Today E31.21 - 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, K52.9 - Noninfective gastroenteritis and colitis, unspecified ? Miscellaneous Lab Procedure 4 Today E31.21 - 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, K52.9 - Noninfective gastroenteritis and colitis, unspecified ? Tumor Imaging WB 2+ Days Today E31.21 - 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, K52.9 - Noninfective gastroenteritis and colitis, unspecified ? Tumor Localization SPECT Today E31.21 - 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, K52.9 - Noninfective gastroenteritis and colitis, unspecified ? I have examined the patient and the H&P has been reviewed. There are no clinical changes since date of exam.
[2022-07-08] MEDS: Lactated Ringers 1,000 ML 15 ML IV (10:15)
--- NOTE | 2022-07-08 11:54 | OP.CCLET_ITS ---
07/08/2022 Alondra Davies Md Re : Upper GI endoscopy procedure for Thuy White Dear Samson This procedure was performed on Friday, July 08, 2022. My impressions and recommendations are as follows: Impressions : - Normal esophagus. - Z-line irregular, 42 cm from the incisors. Biopsied. - A sleeve gastrectomy was found, characterized by healthy appearing mucosa. - Mucosal changes suspicious for duodenitis. Biopsied. Recommendations : - Discharge patient to home. - Resume previous diet. - Continue present medications. - Await pathology results. - Repeat upper endoscopy in 1 year for surveillance based on pathology results. My findings are described in the full procedure note, which is enclosed. If I can be of further assistance, please feel free to contact me at . Sincerely, Triston Brito, 07/08/2022 11:53:26 AM This report has been signed electronically.
--- NOTE | 2022-07-08 11:54 | OP.EGD_ITS ---
Patient Name: Thuy White Procedure Date: 07/08/2022 11:10 AM Date of : 1965 Age: 57 Procedure: Upper GI endoscopy Indications: Dyspepsia, Failure to respond to medical treatment Providers: Triston Brito DO Referring MD: Triston Brito DO Medicines: Monitored Anesthesia Care Patient Profile: This is a 57 year old female. Refer to note in patient chart for documentation of history and physical. Patient has symptoms of chronic abdominal cramping, chronic abdominal distention, chronic global abdominal pain and chronic dyspepsia. Complications: No immediate complications. Procedure: Pre-Anesthesia Assessment: - Prior to the procedure, a History and Physical was performed, and patient medications and allergies were reviewed. The patient is competent. The risks and benefits of the procedure and the sedation options and risks were discussed with the patient. All questions were answered and informed consent was obtained. Patient identification and proposed procedure were verified by the physician. Mental Status Examination: alert and oriented. Airway Examination: normal oropharyngeal airway and neck mobility. Respiratory Examination: clear to auscultation. CV Examination: normal. Prophylactic Antibiotics: The patient does not require prophylactic antibiotics. Prior Anticoagulants: The patient has taken no previous anticoagulant or antiplatelet agents. ASA Grade Assessment: II - A patient with mild systemic disease. After reviewing the risks and benefits, the patient was deemed in satisfactory condition to undergo the procedure. The anesthesia plan was to use moderate sedation / analgesia (conscious sedation). Immediately prior to administration of medications, the patient was re-assessed for adequacy to receive sedatives. The heart rate, respiratory rate, oxygen saturations, blood pressure, adequacy of pulmonary ventilation, and response to care were monitored throughout the procedure. The physical status of the patient was re-assessed after the procedure. After obtaining informed consent, the endoscope was passed under direct vision. Throughout the procedure, the patient's blood pressure, pulse, and oxygen saturations were monitored continuously. The pediatric colonoscope was introduced through the mouth, and advanced to the second part of duodenum. The upper GI endoscopy was accomplished without difficulty. The patient tolerated the procedure well. Scope In: 11:18:49 AM Scope Out: 11:24:26 AM Total Procedure Duration Time 0 hours 5 minutes 37 seconds Findings: The examined esophagus was normal. The Z-line was irregular and was found 42 cm from the incisors. Biopsies were taken with a cold forceps for histology. Verification of patient identification for the specimen was done. Estimated blood loss was minimal. Evidence of a sleeve gastrectomy was found in the gastric body. This was characterized by healthy appearing mucosa. Patchy mild inflammation characterized by congestion (edema) was found in the duodenal bulb, in the first portion of the duodenum and in the second portion of the duodenum. Biopsies for histology were taken with a cold forceps for evaluation of celiac disease. Verification of patient identification for the specimen was done. Estimated blood loss was minimal. Impression: - Normal esophagus. - Z-line irregular, 42 cm from the incisors. Biopsied. - A sleeve gastrectomy was found, characterized by healthy appearing mucosa. - Mucosal changes suspicious for duodenitis. Biopsied. Recommendation: - Discharge patient to home. - Resume previous diet. - Continue present medications. - Await pathology results. - Repeat upper endoscopy in 1 year for surveillance based on pathology results. Procedure Code(s): --- Professional --- 99766, Esophagogastroduodenoscopy, flexible, transoral; with biopsy, single or multiple CPT copyright 2017 [employer]. All rights reserved. The codes documented in this report are preliminary and upon sales consulting director review may be revised to meet current compliance requirements. Triston Brito DO 07/08/2022 11:53:26 AM This report has been signed electronically. Number of Addenda: 0 Note Initiated On: 07/08/2022 11:10 AM
--- NOTE | 2022-07-08 11:58 | OP.COLON_ITS ---
Patient Name: Thuy White Procedure Date: 07/08/2022 11:24 AM Date of : 1965 Age: 57 Procedure: Colonoscopy Indications: Clinically significant diarrhea of unexplained origin Providers: Triston Brito DO Referring MD: Triston Brito DO Medicines: Monitored Anesthesia Care Patient Profile: This is a 57 year old female. Refer to note in patient chart for documentation of history and physical. Patient has symptoms of chronic abdominal cramping, chronic abdominal distention, chronic global abdominal pain and chronic dyspepsia. Last Colonoscopy: date unknown. Unable to locate last colonoscopy report. Complications: No immediate complications. Procedure: Pre-Anesthesia Assessment: - Prior to the procedure, a History and Physical was performed, and patient medications and allergies were reviewed. The patient is competent. The risks and benefits of the procedure and the sedation options and risks were discussed with the patient. All questions were answered and informed consent was obtained. Patient identification and proposed procedure were verified by the physician. Mental Status Examination: alert and oriented. Airway Examination: normal oropharyngeal airway and neck mobility. Respiratory Examination: clear to auscultation. CV Examination: normal. Prophylactic Antibiotics: The patient does not require prophylactic antibiotics. Prior Anticoagulants: The patient has taken no previous anticoagulant or antiplatelet agents. ASA Grade Assessment: II - A patient with mild systemic disease. After reviewing the risks and benefits, the patient was deemed in satisfactory condition to undergo the procedure. The anesthesia plan was to use moderate sedation / analgesia (conscious sedation). Immediately prior to administration of medications, the patient was re-assessed for adequacy to receive sedatives. The heart rate, respiratory rate, oxygen saturations, blood pressure, adequacy of pulmonary ventilation, and response to care were monitored throughout the procedure. The physical status of the patient was re-assessed after the procedure. After I obtained informed consent, the scope was passed under direct vision. Throughout the procedure, the patient's blood pressure, pulse, and oxygen saturations were monitored continuously. The pediatric colonoscope was introduced through the anus and advanced to the terminal ileum. The colonoscopy was performed with ease. The patient tolerated the procedure well. The quality of the bowel preparation was adequate. Scope In: 11:27:42 AM Scope Withdrawal Time 0 hours 16 minutes 14 seconds Scope Out: 11:46:17 AM Total Procedure Duration Time 0 hours 18 minutes 35 seconds Findings: The perianal and digital rectal examinations were normal. A few small-mouthed diverticula were found in the recto-sigmoid colon, sigmoid colon and descending colon. A 8 mm polyp was found in the hepatic flexure. The polyp was sessile. The polyp was removed with a hot snare. Resection and retrieval were complete. Verification of patient identification for the specimen was done. Estimated blood loss was minimal. An area of mildly congested mucosa was found in the sigmoid colon, at the splenic flexure and in the transverse colon. Biopsies were taken with a cold forceps for histology. Verification of patient identification for the specimen was done. Estimated blood loss was minimal. The terminal ileum appeared normal. Biopsies were taken with a cold forceps for histology. Verification of patient identification for the specimen was done. Estimated blood loss was minimal. Impression: - Diverticulosis in the recto-sigmoid colon, in the sigmoid colon and in the descending colon. - One 8 mm polyp at the hepatic flexure, removed with a hot snare. Resected and retrieved. - Congested mucosa in the sigmoid colon, at the splenic flexure and in the transverse colon. Biopsied. - The examined portion of the ileum was normal. Biopsied. Recommendation: - Discharge patient to home. - Resume previous diet. - Continue present medications. - Await pathology results. - Repeat colonoscopy in 1 year for surveillance. Procedure Code(s): --- Professional --- 87965, Colonoscopy, flexible; with removal of tumor(s), polyp(s), or other lesion(s) by snare technique 03626, 59, Colonoscopy, flexible; with biopsy, single or multiple CPT copyright 2017 [employer]. All rights reserved. The codes documented in this report are preliminary and upon asbestos handler review may be revised to meet current compliance requirements. Triston Brito DO 07/08/2022 11:57:52 AM This report has been signed electronically. Number of Addenda: 0 Note Initiated On: 07/08/2022 11:24 AM
--- NOTE | 2022-07-08 11:58 | OP.CCLET_ITS ---
07/08/2022 Alondra Davies Md Re : Colonoscopy procedure for Thuy White Dear Samson This procedure was performed on Friday, July 08, 2022. My impressions and recommendations are as follows: Impressions : - Diverticulosis in the recto-sigmoid colon, in the sigmoid colon and in the descending colon. - One 8 mm polyp at the hepatic flexure, removed with a hot snare. Resected and retrieved. - Congested mucosa in the sigmoid colon, at the splenic flexure and in the transverse colon. Biopsied. - The examined portion of the ileum was normal. Biopsied. Recommendations : - Discharge patient to home. - Resume previous diet. - Continue present medications. - Await pathology results. - Repeat colonoscopy in 1 year for surveillance. My findings are described in the full procedure note, which is enclosed. If I can be of further assistance, please feel free to contact me at . Sincerely, Triston Brito, 07/08/2022 11:57:52 AM This report has been signed electronically.
== END 2022-07-08 12:40 | disposition home or self-care (01) ==
LOC: EN 09:13 → AC 09:14
PROVIDERS: PCP Internal Medicine; Visit Provider Internal Medicine Gastroenterology
PROC: 0DJD8ZZ Inspection of Lower Intestinal Tract, Via Natural or Artificial Opening Endoscopic (ICD-10-PCS; CPT 45378; principal; 2022-07-08 10:55)
DX: D12.3 Benign neoplasm of transverse colon (principal); E66.01 Morbid (severe) obesity due to excess calories; Z68.42 Body mass index [BMI] 45.0-49.9, adult; N18.30 Chronic kidney disease, stage 3 unspecified; K31.89 Other diseases of stomach and duodenum; K63.89 Other specified diseases of intestine; K57.30 Diverticulosis of large intestine without perforation or abscess without bleeding; E03.9 Hypothyroidism, unspecified; F41.9 Anxiety disorder, unspecified; I12.9 Hypertensive chronic kidney disease with stage 1 through stage 4 chronic kidney disease, or unspecified chronic kidney disease; F32.A Depression, unspecified; G47.33 Obstructive sleep apnea (adult) (pediatric); K21.9 Gastro-esophageal reflux disease without esophagitis; Z79.899 Other long term (current) drug therapy
CPT/HCPCS: 45385; 45380; 43239; 88305; J7120

== ENCOUNTER 2022-07-19 14:30 | Inpatient (IN) | payer MEDICARE, MEDICAID, SELFPAY ==
[2022-07-19 14:31] VITALS: BP 122/75; PULSE 99; RESP 18; TEMP 37; O2SAT 95; BMI 49.0
--- NOTE | 2022-07-19 15:16 | EKG12_ITS ---
Test Reason : WEAKNESS Blood Pressure : / mmHG Vent. Rate : 083 BPM Atrial Rate : 083 BPM P-R Int : 174 ms QRS Dur : 100 ms QT Int : 428 ms P-R-T Axes : 039 -27 029 degrees QTc Int : 502 ms Normal sinus rhythm Prolonged QT Abnormal ECG Confirmed by JONO COURTNEY, KARLA ([id number]), magazine editor ELISE CUEVAS ([id number]) on 07/21/2022 10:47:12 AM Referred By: Confirmed By:KARLA DE LA CRUZ MD
--- NOTE | 2022-07-19 15:19 | EDS_ITS ---
HPI <JANES Cruz - Last Filed: 07/19/22 19:15> History of Present Illness Chief Complaint: Weakness Narrative Narrative: Patient presenting today with concerns that she is hypokalemic. She states that she has a history of potassium deficiency and when she is low she feels weak, thirsty, fatigued, and feels confused at times. She has felt this way since yesterday. She does take oral potassium daily. She follows with [facility] for endocrinology and just had a CT scan of her pancreas yesterday. She denies any fever, chills, abdominal pain, shortness of breath, chest pain, nausea, and vomiting. PMH includes history of a gastric sleeve, MEN type 1, and CKD. PFSH <JANES Cruz - Last Filed: 07/19/22 19:15> PFSH Medical History Anemia Anxiety disorder, unspecified Arthritis Difficulty balancing Easy bruising Fatigue Gastric reflux High cholesterol History of blood transfusion History of edema History of IBS History of kidney stones history of left foot fracture History of renal disease Hypertension Hypothyroidism (acquired) Kidney disease Knee pain Leg cramps Major depressive disorder, 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 Non-smoker Obesity Obstructive sleep apnea Post-menopausal Post-surgical hypoparathyroidism Shortness of breath on exertion Stage III chronic kidney disease Vertigo Wears contact lenses Wears dentures Wears glasses Home Medications cyanocobalamin (vitamin B-12) 500 mcg tablet 1,000 mcg PO DAILY@0800 Supplement 09/16/17 [History Last Taken 07/15/18] atorvastatin 20 mg tablet 20 mg PO DAILY 09/24/21 [History Last Taken Unknown] cholecalciferol (vitamin D3) 50 mcg (2,000 unit) capsule (Vitamin D3) 1,250 mcg PO DAILY 09/24/21 [History Last Taken Unknown] levothyroxine 100 mcg tablet 100 mcg PO DAILY 09/24/21 [History Last Taken Unknown] calcium citrate 250 mg PO BID #60 tabs 03/11/22 [Rx Last Taken Unknown] btpyfr-orxwoyrm-pempkpu 40,000-126,000-168,000 unit capsule, delay rel (Zenpep) See Rx Instructions .Route .COMPLEX #300 caps 05/28/22 [Rx Last Taken Unknown] ramelteon 8 mg tablet 8 mg PO QHS PRN sleep #30 tabs 06/08/22 [Rx Last Taken Unknown] vortioxetine 20 mg tablet 20 mg PO DAILY #30 tabs 06/08/22 [Rx Last Taken Unknown] calcitriol 0.25 mcg capsule 0.5 mcg PO DAILY #60 caps 06/29/22 [Rx Last Taken Unknown] compr.stocking,thigh,reg,x-lrg #12 ea 06/29/22 [Rx Last Taken Unknown] fluticasone propionate 50 mcg/actuation nasal spray,suspension (Flonase Allergy Relief) 1 spray intranasal DAILY #16 grams 06/29/22 [Rx Last Taken 07/08/22] alprazolam 0.5 mg tablet (Xanax) 0.5 mg PO BID 07/06/22 [History Last Taken Unknown] aripiprazole 10 mg tablet 10 mg PO DAILY DEPRESSION 07/06/22 [History Last Taken Unknown] bupropion HCl 300 mg 24 hr tablet, extended release 300 mg PO DAILY 07/19/22 [History Last Taken Unknown] pantoprazole 20 mg tablet,delayed release 40 mg PO DAILY 07/19/22 [History Last Taken Unknown] potassium chloride 20 mEq oral packet 40 meq PO DAILY 07/19/22 [History Last Taken Unknown] Allergy/AdvReac Type Severity Reaction Status Date / Time Iodinated Contrast Media Allergy Rash Verified 07/19/22 14:33 [DYEE] propranolol Allergy unknown Verified 07/19/22 14:33 iron AdvReac Other Verified 07/19/22 14:33 morphine AdvReac Rash Verified 07/19/22 14:33 ondansetron [From Zofran] AdvReac Other Verified 07/19/22 14:33 Family History Mother Stomach cancer Anemia Arthritis MEN, type 1 Father Pneumonia Anxiety Arthritis Depression Surgical History H/O right knee surgery History of cholecystectomy History of colonoscopy History of esophagogastroduodenoscopy (EGD) history of gastric sleeve History of hysterectomy History of parathyroidectomy history of right collar bone surgery Social History adopted: No household members: none housing: apartment current occupational status: unemployed current occupation: disability history of recent travel: No sexually active: No Smoking Status: Never smoker Electronic Cigarette Use: not used alcohol intake: current alcohol intake frequency: holidays/special occasions only details: once or twice a year substance use type: does not use, former substance user and marijuana diet: low salt well-balanced diet: about half the time caffeine: Yes eating out: 4 or more times/week during the past year weight has: increased > 10 lbs what type of physical activity do you participate in: walking frequency: 1-2 times per week seatbelt use: always do you feel safe at home: Yes ROS <JANES Cruz - Last Filed: 07/19/22 19:15> ROS ED Constitutional Constitutional ED: Denies chills or fever(s) Eyes Eyes: Denies blurry vision or change in vision Cardiovascular Cardiovascular: Denies chest pain or palpitations Respiratory/Chest Respiratory/Chest: Denies cough or dyspnea Gastrointestinal Gastrointestinal: Denies abdominal pain, nausea or vomiting Genitourinary Genitourinary ED: Denies dysuria, hematuria or urinary urgency Musculoskeletal Musculoskeletal: Denies arthralgias or myalgias Integumentary Denies abscess, Abrasions or rash Neurologic Neurologic: Reports confusion and weakness; Denies dizziness EXAM <JANES Cruz - Last Filed: 07/19/22 19:15> Physical Exam Const Vital Signs: 07/19/22 14:31 07/19/22 14:36 07/19/22 16:28 Temperature 98.6 F 98.6 F Temperature Source Temporal Temporal Pulse Rate 99 85 Respiratory Rate 18 20 H Respiratory Effort Normal Non-Labored Respiratory Pattern Normal Blood Pressure 122/75 H 105/73 Blood Pressure Mean 90 83 Pulse Ox 95 99 Oxygen Delivery Method Room Air Room Air Positive well nourished, well developed and no apparent distress General Appearance ED: well developed HEENT Reports normocephalic and head/scalp atraumatic Mouth ED: Yes moist mucous membranes normal Eyes PERRL and EOMs intact bilaterally Neck full ROM and supple Chest Wall inspection of chest normal Resp normal respiratory effort and clear to auscultation bilaterally Cardio regular rate and regular rhythm GI soft to palpation, non-tender, non-distended and no masses Back/Spine normal ROM and normal to inspection Extremity normal to inspection and full ROM Neuro oriented x3, CN's II-XII intact bilaterally, moves all extremities, no focal motor deficits and no sensory deficits noted Sensorium / Orientation: awake and alert Psych mental status grossly normal and thought process normal Skin no rashes or lesions noted and no wounds <Dr. Alan Weinstein DO - Last Filed: 07/19/22 16:09> Physical Exam Const Vital Signs: 07/19/22 14:31 07/19/22 14:36 07/19/22 16:28 Temperature 98.6 F 98.6 F Temperature Source Temporal Temporal Pulse Rate 99 85 Respiratory Rate 18 20 H Respiratory Effort Normal Non-Labored Respiratory Pattern Normal Blood Pressure 122/75 H 105/73 Blood Pressure Mean 90 83 Pulse Ox 95 99 Oxygen Delivery Method Room Air Room Air MDM <Mckayla Garcia PA - Last Filed: 07/19/22 19:15> [facility] MDM Narrative Medical decision making narrative: Patient presenting today with concerns that she has hypokalemia. She has been feeling weak, thirsty, confused intermittently, and reports she always feels this way when her potassium is low. Labs will be obtained to rule out electrolyte abnormality, leukocytosis, anemia, and to assess kidney function. Patient does have a potassium of 3.1, calcium 5.4, magnesium 1.3. We will give her calcium, potassium, and magnesium replacement here. Patient has a history of postsurgical hypoparathyroidism. We have spoke to the hospitalist for admission and she will be admitted to the hospital in stable condition. She is comfortable with plan. I have personally performed a face to face assessment of the patient and have reviewed the DM Note. I performed a substantive portion of the visit including all aspects of the following. My garces findings include: History is [patient presents to the emergency department with complaint of just generalized weakness for the last 2 days but worse over the last 24 hours. Patient has history of hypokalemia when she gets this way. She does take potassium as well as magnesium and calcium supplementation at home and she is been taking that regularly. Patient denies recent illness. She denies chest pain or shortness of breath. She denies vomiting or diarrhea. She denies blood in her stool or black tarry stool. She denies urinary symptoms. Patient does have history of gastric sleeve and also history of multiple endocrine neoplasia for which she had a CT scan of the abdomen with IV contrast yesterday.] Exam is [HEENT-PERRLA, EOMI. Cranial nerves II through XII grossly intact. TMs clear. Mucous membranes moist. No adenopathy. Cardiovascular-regular rate and rhythm without murmur or ectopy Lungs-good aeration bilaterally. No accessory muscle use or retractions. She has some faint expiratory wheezes bilaterally. Abdomen-normoactive bowel sounds, soft, nontender, no rebound or rigidity, no peritoneal signs. Extremities-intact ?4, normal range of motion, normal pulses, atraumatic] Medical Decison Making [patient had an IV established. Basic labs ordered. She presented with weakness that is similar to what she has had when she had electrolyte abnormality. Chemistries did show a low potassium of 3.1. Her calcium also was low at 5.4. We ordered p.o. potassium and calcium 1 g IV of the calcium gluconate. Case will be discussed with hospitalist evaluate patient for admission for the hypocalcemia. Patient also with QTc prolongation on EKG.] Other additions or changes: [None] Lab Data Attestation: I reviewed the patient's lab results. Lab results narrative: Potassium 3.1, BUN 20, creatinine 1.63, GFR 35, calcium 5.4, magnesium 1.3, troponin 7 Labs: Laboratory Results - last 24 hr 07/19/22 07/19/22 07/19/22 14:50 14:50 14:50 WBC 9.9 RBC 4.34 Hgb 11.9 L Hct 37.5 MCV 86.4 MCH 27.4 MCHC 31.7 L RDW Std Deviation 47.3 H RDW Coeff of Teena 14.8 H Plt Count 361 MPV 11.2 Immature Gran % (Auto) 0.400 Neut % (Auto) 51.3 Lymph % (Auto) 28.4 Nance % (Auto) 7.8 Eos % (Auto) 11.5 H Baso % (Auto) 0.6 Absolute Neuts (auto) 5.1 Absolute Lymphs (auto) 2.81 Nucleated RBC % 0 Sodium 141 Potassium 3.1 L Chloride 105 Carbon Dioxide 26.0 Anion Gap 10 BUN 20 H Creatinine 1.63 H Estim Creat Clear Calc 37.48 Est GFR (MDRD) Af Amer 42 L Est GFR (MDRD) Non-Af 35 L BUN/Creatinine Ratio 12.3 Glucose 97 Calcium 5.4 L* Magnesium 1.3 L Troponin I High Sens 7 <Dr. Alan Weinstein, DO - Last Filed: 07/19/22 16:09> [facility] Narrative Medical decision making narrative: I have personally performed a face to face assessment of the patient and have reviewed the DM Note. I performed a substantive portion of the visit including all aspects of the following. My garces findings include: History is [patient presents to the emergency department with complaint of just generalized weakness for the last 2 days but worse over the last 24 hours. Patient has history of hypokalemia when she gets this way. She does take potassium as well as magnesium and calcium supplementation at home and she is been taking that regularly. Patient denies recent illness. She denies chest pain or shortness of breath. She denies vomiting or diarrhea. She denies blood in her stool or black tarry stool. She denies urinary symptoms. Patient does have history of gastric sleeve and also history of multiple endocrine neoplasia for which she had a CT scan of the abdomen with IV contrast yesterday.] Exam is [HEENT-PERRLA, EOMI. Cranial nerves II through XII grossly intact. TMs clear. Mucous membranes moist. No adenopathy. Cardiovascular-regular rate and rhythm without murmur or ectopy Lungs-good aeration bilaterally. No accessory muscle use or retractions. She has some faint expiratory wheezes bilaterally. Abdomen-normoactive bowel sounds, soft, nontender, no rebound or rigidity, no peritoneal signs. Extremities-intact ?4, normal range of motion, normal pulses, atraumatic] Medical Decison Making [patient had an IV established. Basic labs ordered. She presented with weakness that is similar to what she has had when she had electrolyte abnormality. Chemistries did show a low potassium of 3.1. Her calcium also was low at 5.4. We ordered p.o. potassium and calcium 1 g IV of the calcium gluconate. Case will be discussed with hospitalist evaluate patient for admission for the hypocalcemia. Patient also with QTc prolongation on EKG.] Other additions or changes: [None] Lab Data Labs: Laboratory Results - last 24 hr 07/19/22 07/19/22 07/19/22 14:50 14:50 14:50 WBC 9.9 RBC 4.34 Hgb 11.9 L Hct 37.5 MCV 86.4 MCH 27.4 MCHC 31.7 L RDW Std Deviation 47.3 H RDW Coeff of Teena 14.8 H Plt Count 361 MPV 11.2 Immature Gran % (Auto) 0.400 Neut % (Auto) 51.3 Lymph % (Auto) 28.4 Nance % (Auto) 7.8 Eos % (Auto) 11.5 H Baso % (Auto) 0.6 Absolute Neuts (auto) 5.1 Absolute Lymphs (auto) 2.81 Nucleated RBC % 0 Sodium 141 Potassium 3.1 L Chloride 105 Carbon Dioxide 26.0 Anion Gap 10 BUN 20 H Creatinine 1.63 H Estim Creat Clear Calc 37.48 Est GFR (MDRD) Af Amer 42 L Est GFR (MDRD) Non-Af 35 L BUN/Creatinine Ratio 12.3 Glucose 97 Calcium 5.4 L* Magnesium 1.3 L Troponin I High Sens 7 EKG Initial EKG: Attestation: I personally reviewed and interpreted this EKG as follows: Comments: Sinus rhythm with a rate of 83 bpm with a prolonged QT. QTc was 502. Discharge Plan Dx/Rx/DC Orders Clinical Impression: Hypocalcemia, Acute hypokalemia, Generalized weakness, Hypomagnesemia Disposition Disposition: Acute Care Hospital [facility] Discharge Date/Time: 07/19/22 17:31
[2022-07-19 15:21] LABS: Absolute Lymphocyte Count 2.81 X10^3/uL (0.83-4.51); Absolute Neutrophil Count 5.1 X10^3/uL (2.0-7.7); Basophil# 0.06 X10^3/uL; Basophil% 0.6 % (0-1); Eosinophil# 1.14 X10^3/uL; Eosinophils% 11.5 % (0-5); Hematocrit 37.5 % (37-47); Hemoglobin 11.9 g/dL (12.0-15.0); Lymphocyte # 2.81 X10^3/ul (0.83-4.51); Lymphocyte % 28.4 % (19-41); Mean Corp Hgb Conc 31.7 g/dL (32-36); Mean Corpuscular Hgb 27.4 pg (27.0-32.0); Mean Corpuscular Volume 86.4 fL (81-99); Mean Platelet Vol. 11.2 fl (6.2-12.0); Monocyte# 0.77 X10^3/uL; Monocyte% 7.8 % (0-10); NRBC Flagged by Analyzer 0 % (0-5); Neutrophil # 5.09 X10^3/uL (2.7-7.7); Neutrophil % 51.3 % (47-70); Platelet Count 361 K/mm3 (150-450); RBC Distribution Width CV 14.8 % (11.6-14.6); RBC Distribution Width SD 47.3 fl (35.1-43.9); Red Blood Count 4.34 M/mm3 (4.2-5.4); White Blood Count 9.9 K/mm3 (4.4-11.0)
[2022-07-19 15:24] LABS: Anion Gap 10 (5-15); BUN 20 mg/dL (7-18); BUN/Creat Ratio 12.3 RATIO (10-20); Calcium,Total 5.4 mg/dL (8.5-10.1); Chloride 105 mmol/L (98-107); Creatinine, Serum 1.63 mg/dL (0.55-1.02); EST Glomerular Filtration Rate 35 mL/min (>60); Est Glom Filt Rate - Afr Amer 42 mL/min (>60); Estimated Creatinine Clearance 37.48 ml/min; Glucose 97 mg/dL (74-106); Potassium 3.1 mmol/L (3.5-5.1); Sodium Level 141 mmol/L (136-145)
[2022-07-19] MEDS: Potassium Chloride Oral Tablet 20 MEQ 40 MEQ PO ×2 (15:49→18:00)
[2022-07-19 16:05] LABS: Magnesium 1.3 mg/dL (1.6-2.6); Troponin-I HS 7 pg/mL (3.0-54.0)
[2022-07-19 16:28] VITALS: BP 105/73; PULSE 85; RESP 20; TEMP 37; O2SAT 99
--- NOTE | 2022-07-19 16:28 | HP.PCM.HOS_ITS ---
[facility] - General General Date of Admission: 07/19/22 Date of Service: 07/19/22 Chief Complaint: Lethargy, generalized weakness HPI Narrative JACOBY ESCALERA, is a 57 F who presents to the emergency room for evaluation of generalized weakness and lethargy over the past several days. Patient has a history of chronic kidney disease stage III, multiple endocrine neoplasia type I syndrome, history of hypercalcemia with resultant removal of hypoparathyroid glands, chronic hypokalemia, and chronic depression. Patient said recently she underwent an abdominal CT with contrast due to concerns of a pancreatic neoplasm. This was performed at [facility], she sees an kosher sealer at the [facility]. 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 Moses. Work-up in the emergency room included labs which showed a low calcium at 5.4, magnesium was low at 1.3, creatinine was 1.63, BUN was 20, and potassium was 3.1. Patient CBC was unremarkable. Patient was given IV magnesium and calcium in the emergency room, she will be admitted to [place] [id number] for hypocalcemia and hypomagnesemia, she will be given calcium gluconate, mag sulfate, and supplemental potassium. Labs will be monitored. 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 Non-smoker Obesity Obstructive sleep apnea Post-menopausal Post-surgical hypoparathyroidism Shortness of breath on exertion Stage III chronic kidney disease Vertigo Wears contact lenses Wears dentures Wears glasses Home Medications cyanocobalamin (vitamin B-12) 500 mcg tablet 1,000 mcg PO DAILY@0800 Supplement 09/16/17 [History Last Taken 07/15/18] atorvastatin 20 mg tablet 20 mg PO DAILY 09/24/21 [History Last Taken Unknown] cholecalciferol (vitamin D3) 50 mcg (2,000 unit) capsule (Vitamin D3) 1,250 mcg PO DAILY 09/24/21 [History Last Taken Unknown] levothyroxine 100 mcg tablet 100 mcg PO DAILY 09/24/21 [History Last Taken Unknown] calcium citrate 250 mg PO BID #60 tabs 03/11/22 [Rx Last Taken Unknown] jkkvkb-pllhbcho-zqzzrrl 40,000-126,000-168,000 unit capsule, delay rel (Zenpep) See Rx Instructions .Route .COMPLEX #300 caps 05/28/22 [Rx Last Taken Unknown] ramelteon 8 mg tablet 8 mg PO QHS PRN sleep #30 tabs 06/08/22 [Rx Last Taken Unknown] vortioxetine 20 mg tablet 20 mg PO DAILY #30 tabs 06/08/22 [Rx Last Taken Unknown] calcitriol 0.25 mcg capsule 0.5 mcg PO DAILY #60 caps 06/29/22 [Rx Last Taken Unknown] compr.stocking,thigh,reg,x-lrg #12 ea 06/29/22 [Rx Last Taken Unknown] fluticasone propionate 50 mcg/actuation nasal spray,suspension (Flonase Allergy Relief) 1 spray intranasal DAILY #16 grams 06/29/22 [Rx Last Taken 07/08/22] alprazolam 0.5 mg tablet (Xanax) 0.5 mg PO BID 07/06/22 [History Last Taken Unknown] aripiprazole 10 mg tablet 10 mg PO DAILY DEPRESSION 07/06/22 [History Last Taken Unknown] bupropion HCl 300 mg 24 hr tablet, extended release 300 mg PO DAILY 07/19/22 [History Last Taken Unknown] pantoprazole 20 mg tablet,delayed release 40 mg PO DAILY 07/19/22 [History Last Taken Unknown] potassium chloride 20 mEq oral packet 40 meq PO DAILY 07/19/22 [History Last Taken Unknown] Allergy/AdvReac Type Severity Reaction Status Date / Time Iodinated Contrast Media Allergy Rash Verified 07/19/22 14:33 [DYEE] propranolol Allergy unknown Verified 07/19/22 14:33 iron AdvReac Other Verified 07/19/22 14:33 morphine AdvReac Rash Verified 07/19/22 14:33 ondansetron [From Zofran] AdvReac Other Verified 07/19/22 14:33 Family History Mother Stomach cancer Anemia Arthritis MEN, type 1 Father Pneumonia Anxiety Arthritis Depression Surgical History H/O right knee surgery History of cholecystectomy History of colonoscopy History of esophagogastroduodenoscopy (EGD) history of gastric sleeve History of hysterectomy History of parathyroidectomy history of right collar bone surgery Social History adopted: No household members: none housing: apartment current occupational status: unemployed current occupation: disability history of recent travel: No sexually active: No Smoking Status: Never smoker Electronic Cigarette Use: not used alcohol intake: current alcohol intake frequency: holidays/special occasions only details: once or twice a year substance use type: does not use, former substance user and marijuana diet: low salt well-balanced diet: about half the time caffeine: Yes eating out: 4 or more times/week during the past year weight has: increased > 10 lbs what type of physical activity do you participate in: walking frequency: 1-2 times per week seatbelt use: always do you feel safe at home: Yes ROS Constitutional Constitutional: Reports fatigue, malaise and weakness; Denies anorexia, change in weight, chills, fever(s) or night sweats Eyes Eyes: Denies blurry vision, change in vision, discharge from eye(s) or eye pain Cardiovascular Cardiovascular: Denies chest pain, claudication, dyspnea on exertion, edema, lightheadedness, orthopnea or palpitations Respiratory/Chest Respiratory/Chest: Denies cough, excessive phlegm production, hemoptysis, productive cough, shortness of breath at rest or shortness of breath with exertion Gastrointestinal Gastrointestinal: Denies abdominal pain, coffee ground emesis, constipation, diarrhea, dyspepsia, hematemesis, hematochezia, melena, nausea or vomiting Genitourinary Genitourinary: Denies dysuria, hematuria, urinary frequency, urinary hesitancy, urinary incontinence or urinary urgency Musculoskeletal Musculoskeletal: Denies back pain, joint pain, joint stiffness, joint swelling, myalgias or neck pain Neurologic Neurologic: Denies abnormal gait, abnormal speech, dizziness, focal weakness, headache(s), loss of vision, numbness, other visual disturbances, paresthesias, syncope or tingling Psychiatric Psychiatric: Reports depression; Denies anxiety, cognitive impairment, irritability, mood swings or suicidal ideation Endocrine Endocrinology: Denies change in body appearance, cold intolerance, excessive sweating, heat intolerance, polydipsia or polyuria Hematologic/Lymphatic Hematologic/Lymphatic: Denies none, anemia, easy bleeding, easy bruising or lymphadenopathy Allergic/Immunologic Allergic/Immunologic: Denies rhinitis, urticaria, eczemia or asthma Vital Signs Vital Signs Vital Signs: 07/19/22 14:31 07/19/22 14:36 Temperature 98.6 F Temperature Source Temporal Pulse Rate 99 Respiratory Rate 18 Respiratory Effort Normal Non-Labored Respiratory Pattern Normal Blood Pressure 122/75 H Blood Pressure Mean 90 Pulse Ox 95 Oxygen Delivery Method Room Air Weight Weight: 142.065 kg Body Mass Index (BMI) 49.0 Physical Exam Const alert, oriented x3 and no apparent distress Constitutional Narrative: Patient is morbidly obese, she appears older than her stated age General Appearance: cooperative, well kempt and well developed Orientation / Consciousness: awake, oriented to person, oriented to place and oriented to time HEENT normocephalic, head/scalp atraumatic, hearing grossly normal bilaterally and moist oral mucous membranes Eyes PERRL, EOMs intact bilaterally and conjunctivae normal Neck supple, no JVD, thyroid normal and no carotid bruits General: trachea midline Resp normal respiratory effort, no retractions, no use of accessory muscles and clear to auscultation bilaterally Auscultation: Negative for rales, rhonchi or wheezes Cardio regular rate, regular rhythm, S1 normal heart sound, S2 normal heart sound, no murmurs, no rub and no gallops GI normal to inspection, nondistended, normoactive bowel sounds, soft to palpation, non-tender and non-distended Extremity no clubbing, cyanosis or edema Skin no rashes or lesions noted General Skin Exam: no breakdown Neuro oriented x3, CN's II-XII intact bilaterally, moves all extremities, no focal motor deficits and no sensory deficits noted Sensorium / Orientation: awake, alert, oriented to person, oriented to place and oriented to time Speech: speech normal Psych affect normal Results Lab / Micro Data Result Diagrams: 07/19/22 14:50 07/19/22 14:50 Labs: Laboratory Results - last 24 hr 07/19/22 14:50: WBC 9.9, RBC 4.34, Hgb 11.9 L, Hct 37.5, MCV 86.4, MCH 27.4, MCHC 31.7 L, RDW Std Deviation 47.3 H, RDW Coeff of Teena 14.8 H, Plt Count 361, MPV 11.2, Immature Gran % (Auto) 0.400, Neut % (Auto) 51.3, Lymph % (Auto) 28.4, Henderson % (Auto) 7.8, Eos % (Auto) 11.5 H, Baso % (Auto) 0.6, Absolute Neuts (auto) 5.1, Absolute Lymphs (auto) 2.81, Nucleated RBC % 0 07/19/22 14:50: Sodium 141, Potassium 3.1 L, Chloride 105, Carbon Dioxide 26.0, Anion Gap 10, BUN 20 H, Creatinine 1.63 H, Estim Creat Clear Calc 37.48, Est GFR (MDRD) Af Amer 42 L, Est GFR (MDRD) Non-Af 35 L, BUN/Creatinine Ratio 12.3, Glucose 97, Calcium 5.4 L* 07/19/22 14:50: Magnesium 1.3 L, Troponin I High Sens 7 Assessment & Plan Assessment/Plan (1) Hypocalcemia: PLAN: Plan 1. Hypocalcemia secondary to lack of parathyroid hormone glands and an adequate intake of Calcitrol-patient will be admitted to [facility] 3 under telemetry, she will receive calcium gluconate infusions, labs will be monitored #2 hypomagnesemia-patient will receive IV magnesium replacement #3 chronic kidney disease stage IIIb-complicates care, medical course, management, and recovery #4 morbid obesity-complicates care, medical course, management, and recovery #5 chronic depression/anxiety-patient is on Xanax, Vortioxetine, Abilify, and Wellbutrin, these will be continued #6 hyperlipidemia-patient is on atorvastatin #7 hypothyroidism-patient is on Synthroid Total clinical time spent by myself addressing the patient's medical issues, reviewing all of the data, and collaborating with patient's care team: 75 minutes Charges/Coding Visit Charges Inpatient E&M: 88494 Init Hosp L3
[2022-07-19 17:30] VITALS: BMI 49.0
[2022-07-19 18:00] VITALS: BP 126/79; PULSE 78; RESP 16; TEMP 36.6; O2SAT 100
[2022-07-19] MEDS: ARIPiprazole 10 MG Tablet PO (20:34)
[2022-07-19] MEDS: ALPRAZolam 0.5 MG Tablet PO (20:34)
[2022-07-19] MEDS: Magnesium Chloride 64 MG Delay Rel.Tablet 128 MG PO (20:34)
[2022-07-19] MEDS: Atorvastatin Calcium 20 MG Tablet PO (20:34)
[2022-07-19] MEDS: Heparin Injection (Vial) 5,000 UNIT/ML VIAL 5000 UNIT SC (20:37)
[2022-07-19 20:40] VITALS: BP 98/63; PULSE 80; RESP 18; TEMP 36.6; O2SAT 92
[2022-07-20 02:51] VITALS: BP 92/60; PULSE 70; RESP 18; TEMP 36.5; O2SAT 99
[2022-07-20] MEDS: Levothyroxine 100 MCG Tablet PO (02:55)
[2022-07-20 07:12] LABS: ALB/GLOB Ratio 0.9 RATIO (0.9-2.4); AST(SGOT) 25 U/L (15-37); Alanine Aminotransfer ALT/SGPT 24 U/L (13-56); Albumin, Serum 2.7 g/dL (3.2-5.0); Alkaline Phosphatase 124 U/L (45-117); Anion Gap 10 (5-15); BUN 20 mg/dL (7-18); BUN/Creat Ratio 13.8 RATIO (10-20); Calcium,Total 5.6 mg/dL (8.5-10.1); Chloride 106 mmol/L (98-107); Creatinine, Serum 1.45 mg/dL (0.55-1.02); EST Glomerular Filtration Rate 40 mL/min (>60); Est Glom Filt Rate - Afr Amer 48 mL/min (>60); Estimated Creatinine Clearance 42.13 ml/min; Globulin 3.1 g/dL (2.2-4.2); Glucose 84 mg/dL (74-106); Potassium 3.7 mmol/L (3.5-5.1); Protein, Total 5.8 g/dL (6.4-8.2); Sodium Level 141 mmol/L (136-145)
--- NOTE | 2022-07-20 07:28 | PN.HOSP_ITS ---
Reason for Visit Reason for Visit: Diagnoses Hypocalcemia (07/19/22) Subjective Subjective Feels better overall. Previously felt weak but has been able to get up to the restroom without difficulty. Objective Data Objective Data Vital Signs: Vital Signs Temp Pulse Resp BP Pulse Ox O2 Del Method 36.5 C L 70 18 92/60 99 Room Air 07/20/22 02:51 07/20/22 02:51 07/20/22 02:51 07/20/22 02:51 07/20/22 02:51 07/20/22 02:51 Oxygen Delivery Method Room Air Weight: 142.06 kg Body Mass Index (BMI) 49.0 Intake & Output: Intake and Output for Last 24 Hours 07/18/22 07/19/22 07/20/22 23:59 23:59 23:59 Intake Total 334 / 334 Balance 334 / 334 Lab / Micro Data Result Diagrams: 07/19/22 14:50 07/20/22 12:03 Labs: Laboratory Results - last 24 hr 07/19/22 14:50: WBC 9.9, RBC 4.34, Hgb 11.9 L, Hct 37.5, MCV 86.4, MCH 27.4, MCHC 31.7 L, RDW Std Deviation 47.3 H, RDW Coeff of Teena 14.8 H, Plt Count 361, MPV 11.2, Immature Gran % (Auto) 0.400, Neut % (Auto) 51.3, Lymph % (Auto) 28.4, Foard % (Auto) 7.8, Eos % (Auto) 11.5 H, Baso % (Auto) 0.6, Absolute Neuts (auto) 5.1, Absolute Lymphs (auto) 2.81, Nucleated RBC % 0 07/19/22 14:50: Sodium 141, Potassium 3.1 L, Chloride 105, Carbon Dioxide 26.0, Anion Gap 10, BUN 20 H, Creatinine 1.63 H, Estim Creat Clear Calc 37.48, Est GFR (MDRD) Af Amer 42 L, Est GFR (MDRD) Non-Af 35 L, BUN/Creatinine Ratio 12.3, Glucose 97, Calcium 5.4 L* 07/19/22 14:50: Magnesium 1.3 L, Troponin I High Sens 7 07/20/22 05:43: Sodium 141, Potassium 3.7, Chloride 106, Carbon Dioxide 25.0, Anion Gap 10, BUN 20 H, Creatinine 1.45 H, Estim Creat Clear Calc 42.13, Est GFR (MDRD) Af Amer 48 L, Est GFR (MDRD) Non-Af 40 L, BUN/Creatinine Ratio 13.8, Glucose 84, Calcium 5.6 L*, Magnesium 2.0, Total Bilirubin 0.40, AST 25, ALT 24, Alkaline Phosphatase 124 H, Total Protein 5.8 L, Albumin 2.7 L, Globulin 3.1, Albumin/Globulin Ratio 0.9 Physical Exam Const alert and no apparent distress HEENT head/scalp atraumatic and moist oral mucous membranes Resp normal respiratory effort, no retractions, no use of accessory muscles and clear to auscultation bilaterally Cardio regular rate, regular rhythm, S1 normal heart sound and S2 normal heart sound GI normal to inspection, nondistended, normoactive bowel sounds, soft to palpation, non-tender and non-distended Neuro oriented x3, CN's II-XII intact bilaterally, moves all extremities and no focal motor deficits Assessment & Plan Assessment/Plan (1) Hypocalcemia: PLAN: Hypocalcemia secondary to lack of parathyroid hormone glands and an adequate intake of Calcitrol She has received 4g of calcium gluconate and Ca has only gone from 5.4 to 5.6 Also received 2 g of Magnesium Corrected calcium for albumin is 6.6, still low, so will replace. Replace and repeat corrected calcium is 7.1, with a measured calcium of 6.1. Will replace and recheck this afternoon. Will increase calcitriol from 0.5mcg daily to BID and increase calcium citrate to 500 BID (2) Hypomagnesemia: PLAN: Resolved with replacement. Complicates hypocalcemia patient will receive IV magnesium replacement PLAN: Plan Chronic medical conditions: * chronic kidney disease stage IIIb-complicates care, medical course, management, and recovery * morbid obesity-complicates care, medical course, management, and recovery * chronic depression/anxiety-patient is on Xanax, Vortioxetine, Abilify, and Wellbutrin, these will be continued * hyperlipidemia-patient is on atorvastatin * hypothyroidism-patient is on Synthroid * MEN type I VTE prophylaxis: SQ heparin Charges/Coding Visit Charges Inpatient E&M: 72891 Subs Hosp L2
[2022-07-20] MEDS: Creon 12,000 unit DR CapSULE 3 CAP PO ×3 (08:20→16:27)
[2022-07-20] MEDS: Potassium Chloride Oral Tablet 20 MEQ 40 MEQ PO ×2 (08:20→16:27)
[2022-07-20] MEDS: Cyanocobalamin 500 MCG Tablet 1000 MCG PO (08:28)
[2022-07-20 08:50] VITALS: BP 99/73; PULSE 80; RESP 18; TEMP 36.3; O2SAT 98
[2022-07-20] MEDS: ALPRAZolam 0.5 MG Tablet PO (09:17)
[2022-07-20] MEDS: Pantoprazole Sodium 40 MG Tablet PO (09:18)
[2022-07-20] MEDS: Calcitriol 0.25 MCG Capsule 1 MCG PO (09:18)
[2022-07-20] MEDS: buPROPion (XL) 300 MG TABLET.XL PO (09:18)
[2022-07-20] MEDS: Magnesium Chloride 64 MG Delay Rel.Tablet 128 MG PO (09:18)
[2022-07-20] MEDS: Heparin Injection (Vial) 5,000 UNIT/ML VIAL 5000 UNIT SC (09:19)
[2022-07-20] MEDS: VORTIOXETINE HYDROBROMIDE 10 MG TABLET 20 MG PO (09:36)
--- NOTE | 2022-07-20 10:50 | CASEMGMT ---
MELIDA CHONG Assessment: Face to Face with pt for initial transition planning/care coordination assessment. RN ARLETTE introduced self and role at [facility], pt voices understanding and consents to assessment. Pt is A/O x4 and answers all questions appropriately at this time. Pt lying in bed in no distress. Care providers, pharmacy, and demographics verified/updated. Admitting Dx: hypocalcemia, hypomagnesemia, hypokalemia PCP:[place] Specialists: at [facility] main [place]; shannon Moses; Friend, GI Preferred Pharmacy: [facility] Insurance: [facility], [facility] Prescription Benefit: yes LNOK: Yaneth Britton, sister Living Arrangements: Pt lives alone in a ground level apt with no steps to enter. Pt reports she is I in ADL's and denies concerns at home. Transportation: Pt drives self and denies concerns with transportation. DME/HHC/SNF: Pt denies having any DME in the home. Pt has had [facility] in the past and denies SNF stays. Pt states no concerns with going home at time of dc. Pt states no further concerns/needs. CM to follow. Advised pt to ask CM if any further question/concerns/needs arise, voices understanding. Pt Goal: Home Plan: Home
[2022-07-20 13:27] LABS: Anion Gap 9 (5-15); BUN 19 mg/dL (7-18); BUN/Creat Ratio 12.8 RATIO (10-20); Calcium,Total 6.1 mg/dL (8.5-10.1); Chloride 103 mmol/L (98-107); Creatinine, Serum 1.49 mg/dL (0.55-1.02); EST Glomerular Filtration Rate 38 mL/min (>60); Est Glom Filt Rate - Afr Amer 47 mL/min (>60); Glucose 91 mg/dL (74-106); Potassium 3.8 mmol/L (3.5-5.1); Sodium Level 137 mmol/L (136-145)
--- NOTE | 2022-07-20 15:59 | DCINST_ITS ---
Discharge Instructions Diet Discharge Diet: No restrictions Follow Up Care Test Results: Test results from this visit will be discussed in further detail at your follow- up appointment, if applicable. Discharge Plan Admission Admit Date/Time: 07/19/22 16:44 Primary Reason for Your Visit: hypocalcemia Attending Provider: Joey Tenorio Primary Care Provider: Alondra Davies Consulting Providers: Aaron Ruffin Discharge Orders/Prescriptions Prescriptions: Continued vortioxetine 20 mg tablet 20 mg PO DAILY Qty: 30 2RF ramelteon 8 mg tablet 8 mg PO QHS PRN (Reason: sleep) Qty: 30 2RF fluticasone propionate [Flonase Allergy Relief] 50 mcg/actuation spray,suspension 1 spray intranasal DAILY Qty: 16 0RF Rx Instructions: administer into each nostril (DME) compr.stocking,thigh,reg,x-lrg Misc See Rx Instructions .Route Qty: 12 0RF Rx Instructions: As directed cyanocobalamin (vitamin B-12) 500 MCG tablet 1,000 mcg PO DAILY@0800 atorvastatin 20 mg Tablet 20 mg PO DAILY levothyroxine 100 mcg Tablet 100 mcg PO DAILY alprazolam [Xanax] 0.5 mg tablet 0.5 mg PO BID aripiprazole 10 mg tablet 10 mg PO DAILY pantoprazole 20 mg tablet,delayed release (DR/EC) 40 mg PO DAILY potassium chloride 20 mEq packet 40 meq PO DAILY bupropion HCl 300 mg tablet extended release 24 hr 300 mg PO DAILY Zenpep 40,000-126,000- 168,000 unit capsule,delayed release(DR/EC) See Rx Instructions .ROUTE .COMPLEX Qty: 300 5RF Rx Instructions: take 1 capsule with snack, take 2-3 capsules with meals Changed calcium citrate 250 mg calcium tablet 500 mg PO BID Qty: 120 0RF calcitriol 0.25 mcg capsule 0.5 mcg PO BID Qty: 120 0RF No Action cholecalciferol (vitamin D3) [Vitamin D3] 50 mcg (2,000 unit) Capsule 1,250 mcg PO DAILY Referrals / Follow Up: [facility] [Provider Group] - 09/07/22 11:30 am [facility] [Provider Group] - 09/11/22 10:00 am Alondra Davies MD [Primary Care Provider] - Within 2 Weeks Disposition Disposition (needs filled in before D/C Order can be placed): Home, Self Care
[2022-07-20 17:11] VITALS: BP 102/70; PULSE 78; RESP 18; TEMP 37; O2SAT 98
[2022-07-20 18:03] LABS: Anion Gap 9 (5-15); BUN 19 mg/dL (7-18); BUN/Creat Ratio 13.2 RATIO (10-20); Calcium,Total 6.5 mg/dL (8.5-10.1); Chloride 103 mmol/L (98-107); Creatinine, Serum 1.44 mg/dL (0.55-1.02); EST Glomerular Filtration Rate 40 mL/min (>60); Est Glom Filt Rate - Afr Amer 48 mL/min (>60); Estimated Creatinine Clearance 42.42 ml/min; Glucose 94 mg/dL (74-106); Potassium 3.9 mmol/L (3.5-5.1); Sodium Level 138 mmol/L (136-145)
--- NOTE | 2022-07-20 18:20 | DS.PCM_ITS ---
Providers Date of Admission: 07/19/22 Primary Care Physician: Dr. Alondra Davies MD Reason For Visit: HYPOCALCEMIA, HYPOMAGNESEMIA, HYPOKALEMIA Diagnosis Discharge Diagnosis (1) Hypocalcemia: Status: Acute Code(s): E83.51 - Hypocalcemia Plan: Hypocalcemia secondary to lack of parathyroid hormone glands and an adequate intake of Calcitrol She has received 4g of calcium gluconate and Ca has only gone from 5.4 to 5.6 Also received 2 g of Magnesium Corrected calcium for albumin is 6.6, still low, so will replace. Replace and repeat corrected calcium is 7.1, with a measured calcium of 6.1. Will replace and recheck this afternoon. Will increase calcitriol from 0.5mcg daily to BID and increase calcium citrate to 500 BID Repeat calcium was better at 6.5, corrected at 7.5 (2) Hypomagnesemia: Status: Acute Code(s): E83.42 - Hypomagnesemia Plan: Resolved with replacement. Complicates hypocalcemia patient will receive IV magnesium replacement Plan Chronic medical conditions: * chronic kidney disease stage IIIb-complicates care, medical course, management, and recovery * morbid obesity-complicates care, medical course, management, and recovery * chronic depression/anxiety-patient is on Xanax, Vortioxetine, Abilify, and Wellbutrin, these will be continued * hyperlipidemia-patient is on atorvastatin * hypothyroidism-patient is on Synthroid * MEN type I VTE prophylaxis: SQ heparin Medications at Discharge Home Medications cyanocobalamin (vitamin B-12) 500 mcg tablet 1,000 mcg PO DAILY@0800 Supplement 09/16/17 atorvastatin 20 mg tablet 20 mg PO DAILY 09/24/21 cholecalciferol (vitamin D3) 50 mcg (2,000 unit) capsule (Vitamin D3) 1,250 mcg PO DAILY 09/24/21 levothyroxine 100 mcg tablet 100 mcg PO DAILY 09/24/21 [id number] 40,000-126,000-168,000 unit capsule, delay rel (Zenpep) See Rx Instructions .Route .COMPLEX #300 caps 05/28/22 ramelteon 8 mg tablet 8 mg PO QHS PRN sleep #30 tabs 06/08/22 vortioxetine 20 mg tablet 20 mg PO DAILY #30 tabs 06/08/22 compr.stocking,thigh,reg,x-lrg #12 ea 06/29/22 fluticasone propionate 50 mcg/actuation nasal spray,suspension (Flonase Allergy Relief) 1 spray intranasal DAILY #16 grams 06/29/22 alprazolam 0.5 mg tablet (Xanax) 0.5 mg PO BID 07/06/22 aripiprazole 10 mg tablet 10 mg PO DAILY DEPRESSION 07/06/22 bupropion HCl 300 mg 24 hr tablet, extended release 300 mg PO DAILY 07/19/22 pantoprazole 20 mg tablet,delayed release 40 mg PO DAILY 07/19/22 potassium chloride 20 mEq oral packet 40 meq PO DAILY 07/19/22 calcitriol 0.25 mcg capsule 0.5 mcg PO BID #120 caps 07/20/22 calcium citrate 500 mg PO BID #120 tabs 07/20/22 Hospital Course Operations None Procedures None Summary of Care Provided Minutes Spent on Discharge: 32 Hospital Course: 57-year-old female presents with weakness. Patient was found to be hypocalcemic at 5.4 and hypomagnesemic at 1.3. Magnesium was replaced and went up the following day, however, the calcium took several doses of calcium gluconate to get up to 6.5 when she was discharged. Corrected calcium that time was 7.5 though still low for her albumin. Patient does have a history of parathyroidectomies with a left and a small fragment of one of her parathyroid hormones. She does take calcitriol as well as calcium citrate. Those doses will be increased to 0.5 mcg twice daily of calcitriol and 500 mg calcium citrate twice daily. Patient has a follow-up appointment with Dr. Lombardo of endocrinology on 09/11 for further management. Patient also follow-up with primary care doctor in the coming weeks to have routine blood work drawn. For the weakness standpoint, patient did improve with improvement of her calcium. No additional therapy needs were warranted upon discharge. Weight / BMI Weight Weight: 142.06 kg Body Mass Index (BMI) 49.0 ABG / Lab / Microbiology Data Result Diagrams: 07/19/22 14:50 07/20/22 17:29 Laboratory: Laboratory Results - last 24 hr 07/20/22 05:43: Sodium 141, Potassium 3.7, Chloride 106, Carbon Dioxide 25.0, Anion Gap 10, BUN 20 H, Creatinine 1.45 H, Estim Creat Clear Calc 42.13, Est GFR (MDRD) Af Amer 48 L, Est GFR (MDRD) Non-Af 40 L, BUN/Creatinine Ratio 13.8, Glucose 84, Calcium 5.6 L*, Magnesium 2.0, Total Bilirubin 0.40, AST 25, ALT 24, Alkaline Phosphatase 124 H, Total Protein 5.8 L, Albumin 2.7 L, Globulin 3.1, Albumin/Globulin Ratio 0.9 07/20/22 12:03: Sodium 137, Potassium 3.8, Chloride 103, Carbon Dioxide 25.0, Anion Gap 9, BUN 19 H, Creatinine 1.49 H, Estim Creat Clear Calc 41.00, Est GFR (MDRD) Af Amer 47 L, Est GFR (MDRD) Non-Af 38 L, BUN/Creatinine Ratio 12.8, Glucose 91, Calcium 6.1 L* 07/20/22 17:29: Sodium 138, Potassium 3.9, Chloride 103, Carbon Dioxide 26.0, Anion Gap 9, BUN 19 H, Creatinine 1.44 H, Estim Creat Clear Calc 42.42, Est GFR (MDRD) Af Amer 48 L, Est GFR (MDRD) Non-Af 40 L, BUN/Creatinine Ratio 13.2, Glucose 94, Calcium 6.5 L* D/C Instructions Discharge Diet: No restrictions Meaningful Use Info Meaningful Use Diagnoses (Choose all that apply): None applicable Discharge Plan Admission Admit Date/Time: 07/19/22 16:44 Primary Reason for Your Visit: hypocalcemia Attending Provider: Joey Tenorio Primary Care Provider: Alondra Davies Consulting Providers: Aaron Ruffin Discharge Orders/Prescriptions Prescriptions: Continued vortioxetine 20 mg tablet 20 mg PO DAILY Qty: 30 2RF ramelteon 8 mg tablet 8 mg PO QHS PRN (Reason: sleep) Qty: 30 2RF fluticasone propionate [Flonase Allergy Relief] 50 mcg/actuation spray,suspension 1 spray intranasal DAILY Qty: 16 0RF Rx Instructions: administer into each nostril (DME) compr.stocking,thigh,reg,x-lrg Misc See Rx Instructions .Route Qty: 12 0RF Rx Instructions: As directed cyanocobalamin (vitamin B-12) 500 MCG tablet 1,000 mcg PO DAILY@0800 atorvastatin 20 mg Tablet 20 mg PO DAILY levothyroxine 100 mcg Tablet 100 mcg PO DAILY alprazolam [Xanax] 0.5 mg tablet 0.5 mg PO BID aripiprazole 10 mg tablet 10 mg PO DAILY pantoprazole 20 mg tablet,delayed release (DR/EC) 40 mg PO DAILY potassium chloride 20 mEq packet 40 meq PO DAILY bupropion HCl 300 mg tablet extended release 24 hr 300 mg PO DAILY Zenpep 40,000-126,000- 168,000 unit capsule,delayed release(DR/EC) See Rx Instructions .ROUTE .COMPLEX Qty: 300 5RF Rx Instructions: take 1 capsule with snack, take 2-3 capsules with meals Changed calcium citrate 250 mg calcium tablet 500 mg PO BID Qty: 120 0RF calcitriol 0.25 mcg capsule 0.5 mcg PO BID Qty: 120 0RF No Action cholecalciferol (vitamin D3) [Vitamin D3] 50 mcg (2,000 unit) Capsule 1,250 mcg PO DAILY Referrals / Follow Up: [facility] [Provider Group] - 09/07/22 11:30 am [facility] [Provider Group] - 09/11/22 10:00 am Alondra Davies MD [Primary Care Provider] - Within 2 Weeks Disposition Disposition (needs filled in before D/C Order can be placed): Home, Self Care Charges/Coding Visit Charges Inpatient E&M: 94936 [facility] L3
[2022-07-20 18:31] VITALS: BP 102/70; PULSE 78; RESP 18; TEMP 37; O2SAT 98
== END 2022-07-20 19:02 | disposition home or self-care (01) | DRG 641 ==
LOC: ED 16:19 → MS3 17:07
PROVIDERS: Physician Assistant; Admitting Provider Internal Medicine; Emergency Provider Emergency Medicine; PCP Internal Medicine
DX: E83.51 Hypocalcemia (principal); Z68.42 Body mass index [BMI] 45.0-49.9, adult; E31.21 Multiple endocrine neoplasia [MEN] type I; N18.32 Chronic kidney disease, stage 3b; E66.01 Morbid (severe) obesity due to excess calories; E89.2 Postprocedural hypoparathyroidism; E87.6 Hypokalemia; I12.9 Hypertensive chronic kidney disease with stage 1 through stage 4 chronic kidney disease, or unspecified chronic kidney disease; E78.00 Pure hypercholesterolemia, unspecified; E83.42 Hypomagnesemia; F41.9 Anxiety disorder, unspecified; F32.A Depression, unspecified; Z79.899 Other long term (current) drug therapy
CPT/HCPCS: 36415; 80048; 80053; 83735; 84484; 85025; 93005; 99284; J7040; A4216; J0612

== ENCOUNTER 2022-08-16 11:09 | Emergency (ER) | payer MEDICARE, MEDICAID, SELFPAY ==
[2022-08-16 11:10] VITALS: BP 115/81; PULSE 101; RESP 18; TEMP 36.4; O2SAT 97; BMI 47.9
--- NOTE | 2022-08-16 11:29 | EX.ED.DYSGE1 ---
HPI <JANES Cruz - Last Filed: 08/16/22 19:21> History of Present Illness Chief Complaint: Abn Labs Narrative Narrative: Patient presenting today with concerns that her calcium is low. She reports that over the past 2 days she has felt intermittently confused, off balance, weak, and has paresthesias in her face. She reports that she feels this way when her calcium or potassium gets too low. She was just admitted to the hospital a few weeks ago due to hypocalcemia, hypokalemia, and hypomagnesemia. She has not had any recent labs drawn. She has a history of chronic diarrhea which is flared up over the past 2 days. Patient has a history of CKD stage III, multiple endocrine neoplasia type I, hypoparathyroidism, chronic hypokalemia, and depression. [facility] <JANES Cruz - Last Filed: 08/16/22 19:21> [facility] Medical History ADHD Allergic rhinitis Anemia Anemia Anxiety Anxiety disorder, unspecified Arthritis Chronic diarrhea Chronic kidney disease, stage 3 Depression Difficulty balancing Easy bruising Edema Exocrine pancreatic insufficiency Fatigue Gastric reflux GERD (gastroesophageal reflux disease) Gout High cholesterol History of blood transfusion History of edema History of IBS History of kidney stones history of left foot fracture History of renal disease Hypertension Hypothyroidism Hypothyroidism (acquired) Insomnia Irritable bowel syndrome Kidney disease Knee pain Leg cramps Major depressive disorder, recurrent severe without psychotic features Migraine 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) Non-smoker Obesity Obstructive sleep apnea Osteoarthritis of right knee Post traumatic stress disorder Post-menopausal Post-surgical hypoparathyroidism Restless leg syndrome Shortness of breath on exertion Sleep apnea Stage III chronic kidney disease Ureteral calculus Vertigo Vitamin D deficiency Wears contact lenses Wears dentures Wears glasses Home Medications cyanocobalamin (vitamin B-12) 500 mcg tablet 1,000 mcg PO DAILY@0800 Supplement 09/16/17 [History Last Taken 07/15/18] atorvastatin 20 mg tablet 20 mg PO DAILY 09/24/21 [History Last Taken Unknown] cholecalciferol (vitamin D3) 50 mcg (2,000 unit) capsule (Vitamin D3) 1,250 mcg PO DAILY 09/24/21 [History Last Taken Unknown] levothyroxine 100 mcg tablet 100 mcg PO DAILY 09/24/21 [History Last Taken Unknown] ramelteon 8 mg tablet 8 mg PO QHS PRN sleep #30 tabs 06/08/22 [Rx Last Taken Unknown] vortioxetine 20 mg tablet 20 mg PO DAILY #30 tabs 06/08/22 [Rx Last Taken Unknown] compr.stocking,thigh,reg,x-lrg #12 ea 06/29/22 [Rx Last Taken Unknown] fluticasone propionate 50 mcg/actuation nasal spray,suspension (Flonase Allergy Relief) 1 spray intranasal DAILY #16 grams 06/29/22 [Rx Last Taken 07/08/22] aripiprazole 10 mg tablet 10 mg PO DAILY DEPRESSION 07/06/22 [History Last Taken Unknown] bupropion HCl 300 mg 24 hr tablet, extended release 300 mg PO DAILY 07/19/22 [History Last Taken Unknown] pantoprazole 20 mg tablet,delayed release 40 mg PO DAILY 07/19/22 [History Last Taken Unknown] potassium chloride 20 mEq oral packet 40 meq PO DAILY 07/19/22 [History Last Taken Unknown] calcitriol 0.25 mcg capsule 0.5 mcg PO BID #120 caps 07/20/22 [Rx Last Taken Unknown] calcium citrate 500 mg PO BID #120 tabs 07/20/22 [Rx Last Taken Unknown] alprazolam 0.5 mg tablet 0.5 mg PO BID PRN anxiety 30 days #60 TABLETS 08/10/22 [Rx Last Taken Unknown] magnesium 200 mg tablet 200 mg PO DAILY #14 tabs 08/16/22 [Rx Last Taken Unknown] Allergy/AdvReac Type Severity Reaction Status Date / Time Iodinated Contrast Media Allergy Rash Verified 08/16/22 11:09 [DYEE] propranolol Allergy unknown Verified 08/16/22 11:09 iron AdvReac Other Verified 08/16/22 11:09 morphine AdvReac Rash Verified 08/16/22 11:09 ondansetron [From Zofran] AdvReac Other Verified 08/16/22 11:09 Family History Mother Stomach cancer Anemia Arthritis MEN, type 1 Father Pneumonia Anxiety Arthritis Depression Surgical History H/O right knee surgery History of cholecystectomy History of colonoscopy History of esophagogastroduodenoscopy (EGD) history of gastric sleeve History of hysterectomy History of parathyroidectomy history of right collar bone surgery Social History adopted: No household members: none housing: apartment current occupational status: unemployed current occupation: disability history of recent travel: No sexually active: No Smoking Status: Never smoker Electronic Cigarette Use: not used alcohol intake: current alcohol intake frequency: holidays/special occasions only details: once or twice a year substance use type: does not use, former substance user and marijuana diet: low salt well-balanced diet: about half the time caffeine: Yes eating out: 4 or more times/week during the past year weight has: increased > 10 lbs what type of physical activity do you participate in: walking frequency: 1-2 times per week seatbelt use: always do you feel safe at home: Yes ROS <JANES Cruz - Last Filed: 08/16/22 19:21> ROS ED Constitutional Constitutional ED: Denies chills or fever(s) Eyes Eyes: Denies blurry vision Cardiovascular Cardiovascular: Denies chest pain or palpitations Respiratory/Chest Respiratory/Chest: Denies cough or dyspnea Gastrointestinal Gastrointestinal: Reports diarrhea; Denies abdominal pain, nausea or vomiting Genitourinary Genitourinary ED: Denies dysuria, hematuria or urinary urgency Musculoskeletal Musculoskeletal: Denies arthralgias or myalgias Integumentary Denies rash Neurologic Neurologic: Reports confusion, paresthesias and weakness; Denies dizziness EXAM <JANES Cruz - Last Filed: 08/16/22 19:21> Physical Exam Const Vital Signs: 08/16/22 11:10 08/16/22 11:20 08/16/22 16:04 Temperature 97.6 F L Temperature Source Temporal Pulse Rate 101 H 76 Respiratory Rate 18 16 Respiratory Pattern Normal Blood Pressure 115/81 H 94/62 Blood Pressure Mean 92 Pulse Ox 97 96 Oxygen Delivery Method Room Air Positive well nourished, well developed and no apparent distress General Appearance ED: well developed HEENT Reports normocephalic and head/scalp atraumatic Mouth ED: Yes moist mucous membranes normal Eyes PERRL and EOMs intact bilaterally Neck full ROM and supple Chest Wall inspection of chest normal Resp normal respiratory effort and clear to auscultation bilaterally Cardio regular rate and regular rhythm GI soft to palpation, non-tender, non-distended and no masses Back/Spine normal ROM and normal to inspection Extremity normal to inspection and full ROM Neuro oriented x3, CN's II-XII intact bilaterally, moves all extremities, no focal motor deficits and no sensory deficits noted Sensorium / Orientation: awake and alert Psych mental status grossly normal and thought process normal Skin no rashes or lesions noted and no wounds <Dr. Uzair Joy MD - Last Filed: 08/16/22 12:25> Physical Exam Const Vital Signs: 08/16/22 11:10 08/16/22 11:20 08/16/22 16:04 Temperature 97.6 F L Temperature Source Temporal Pulse Rate 101 H 76 Respiratory Rate 18 16 Respiratory Pattern Normal Blood Pressure 115/81 H 94/62 Blood Pressure Mean 92 Pulse Ox 97 96 Oxygen Delivery Method Room Air MDM <JANES Cruz - Last Filed: 08/16/22 19:21> [facility] MDM Narrative Medical decision making narrative: Patient presenting today due to concerns that her calcium or potassium may be low as she has been having facial paresthesias, weakness, feels off balance, and has intermittent confusion. She reports that this is how she feels when her electrolytes are off. History of chronic diarrhea that has been worse over the past 2 days. She is supposed to be following up with a economic development coordinator on 08/28. 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 Labs will be obtained to rule out leukocytosis, anemia, electrolyte abnormality. She is hypokalemic, hypocalcemic, hypomagnesium. Kidney function is stable. She will be given IV fluids, potassium, magnesium, calcium replacement. On reexamination she reports she is feeling much better. She does not have magnesium supplementation for home, I have given her a prescription for that. She is to follow-up with her PCP and economic development coordinator. She will be discharged with stable condition and is comfortable with plan. I have personally performed a face to face assessment of the patient and have reviewed the DM Note. I performed a substantive portion of the visit including all aspects of the following. My garces findings include: History is 57-year-old female history of prior electrolyte abnormalities and chronic diarrhea. Is on potassium, calcium and magnesium replacement but does note her magnesium prescription filled. She is seen by an economic development coordinator in [place]. States she is not feeling well. Exam is [middle-aged female no acute distress. Vital signs stable afebrile. Does not look septic or toxic. HEENT exam unremarkable. No facial droop. Moist mucous membranes. Neck nontender no lymphadenopathy. Lungs clear to auscultation. Heart regular rhythm rate about 100 no murmur. Abdomen soft nontender. Normal bowel sounds no peritoneal signs. Moving all 4 extremities. Calves are nontender without edema or cords. Neurologically she is awake and alert with no focal motor deficits.] Medical Decison Making [screening labs looking for electrolyte abnormalities. Her CBC is her baseline. She has a mildly low potassium at 3.2 she is on potassium replacement at home. Calcium is low at 6.9 but improving from recent calcium levels and she is on calcium replacement at home. Her mag level was a still low at 1.5 that prescription filled.] Other additions or changes: [None] Lab Data Attestation: I reviewed the patient's lab results. Lab results narrative: Hemoglobin 11.8, potassium 3.2, creatinine 1.49, GFR 38, calcium 6.9, magnesium 1.5 Labs: Laboratory Results - last 24 hr 08/16/22 08/16/22 11:30 11:30 WBC 6.7 RBC 4.43 Hgb 11.8 L Hct 37.6 MCV 84.9 MCH 26.6 L MCHC 31.4 L RDW Std Deviation 45.0 H RDW Coeff of Teena 14.5 Plt Count 392 MPV 10.2 Immature Gran % (Auto) 0.400 Neut % (Auto) 54.9 Lymph % (Auto) 28.4 [place] % (Auto) 8.1 Eos % (Auto) 7.5 H Baso % (Auto) 0.7 Absolute Neuts (auto) 3.7 Absolute Lymphs (auto) 1.90 Nucleated RBC % 0 Sodium 140 Potassium 3.2 L Chloride 103 Carbon Dioxide 29.0 Anion Gap 8 BUN 14 Creatinine 1.49 H Estim Creat Clear Calc 41.00 Est GFR (MDRD) Af Amer 47 L Est GFR (MDRD) Non-Af 38 L BUN/Creatinine Ratio 9.4 L Glucose 97 Calcium 6.9 L Magnesium 1.5 L <Dr. Uzair Joy MD - Last Filed: 08/16/22 12:25> [facility] MDM Narrative Medical decision making narrative: Patient presenting today due to concerns that her calcium or potassium may be low as she has been having facial paresthesias, weakness, feels off balance, and has intermittent confusion. She reports that this is how she feels when her electrolytes are off. History of chronic diarrhea that has been worse over the past 2 days. She is supposed to be following up with a economic development coordinator on 08/28. 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 Labs will be obtained to rule out leukocytosis, anemia, electrolyte abnormality. She will be given IV fluids. I have personally performed a face to face assessment of the patient and have reviewed the DM Note. I performed a substantive portion of the visit including all aspects of the following. My garces findings include: History is 57-year-old female history of prior electrolyte abnormalities and chronic diarrhea. Is on potassium, calcium and magnesium replacement but does note her magnesium prescription filled. She is seen by an economic development coordinator in [place]. States she is not feeling well. Exam is [middle-aged female no acute distress. Vital signs stable afebrile. Does not look septic or toxic. HEENT exam unremarkable. No facial droop. Moist mucous membranes. Neck nontender no lymphadenopathy. Lungs clear to auscultation. Heart regular rhythm rate about 100 no murmur. Abdomen soft nontender. Normal bowel sounds no peritoneal signs. Moving all 4 extremities. Calves are nontender without edema or cords. Neurologically she is awake and alert with no focal motor deficits.] Medical Decison Making [screening labs looking for electrolyte abnormalities. Her CBC is her baseline. She has a mildly low potassium at 3.2 she is on potassium replacement at home. Calcium is low at 6.9 but improving from recent calcium levels and she is on calcium replacement at home. Her mag level was a still low at 1.5 that prescription filled.] Other additions or changes: [None] Lab Data Labs: Laboratory Results - last 24 hr 08/16/22 08/16/22 11:30 11:30 WBC 6.7 RBC 4.43 Hgb 11.8 L Hct 37.6 MCV 84.9 MCH 26.6 L MCHC 31.4 L RDW Std Deviation 45.0 H RDW Coeff of Teena 14.5 Plt Count 392 MPV 10.2 Immature Gran % (Auto) 0.400 Neut % (Auto) 54.9 Lymph % (Auto) 28.4 [place] % (Auto) 8.1 Eos % (Auto) 7.5 H Baso % (Auto) 0.7 Absolute Neuts (auto) 3.7 Absolute Lymphs (auto) 1.90 Nucleated RBC % 0 Sodium 140 Potassium 3.2 L Chloride 103 Carbon Dioxide 29.0 Anion Gap 8 BUN 14 Creatinine 1.49 H Estim Creat Clear Calc 41.00 Est GFR (MDRD) Af Amer 47 L Est GFR (MDRD) Non-Af 38 L BUN/Creatinine Ratio 9.4 L Glucose 97 Calcium 6.9 L Magnesium 1.5 L Discharge Plan Triage Chief Complaint: Abn Labs ED Midlevel Provider: Mckayla Garcia ED Provider: Uzair Joy Dx/Rx/DC Orders Clinical Impression: Hypocalcemia, Hypokalemia, Hypomagnesemia, Weakness Instructions: Hypomagnesemia Dc, ED Hypokalemia, ED Hypocalcemia (Adult) Prescriptions: New magnesium 200 mg tablet 200 mg PO DAILY Qty: 14 0RF No Action vortioxetine 20 mg tablet 20 mg PO DAILY Qty: 30 2RF ramelteon 8 mg tablet 8 mg PO QHS PRN (Reason: sleep) Qty: 30 2RF fluticasone propionate [Flonase Allergy Relief] 50 mcg/actuation spray,suspension 1 spray intranasal DAILY Qty: 16 0RF Rx Instructions: administer into each nostril (DME) compr.stocking,thigh,reg,x-lrg Misc See Rx Instructions .Route Qty: 12 0RF Rx Instructions: As directed cyanocobalamin (vitamin B-12) 500 MCG tablet 1,000 mcg PO DAILY@0800 atorvastatin 20 mg Tablet 20 mg PO DAILY levothyroxine 100 mcg Tablet 100 mcg PO DAILY cholecalciferol (vitamin D3) [Vitamin D3] 50 mcg (2,000 unit) Capsule 1,250 mcg PO DAILY aripiprazole 10 mg tablet 10 mg PO DAILY pantoprazole 20 mg tablet,delayed release (DR/EC) 40 mg PO DAILY potassium chloride 20 mEq packet 40 meq PO DAILY bupropion HCl 300 mg tablet extended release 24 hr 300 mg PO DAILY calcium citrate 250 mg calcium tablet 500 mg PO BID Qty: 120 0RF calcitriol 0.25 mcg capsule 0.5 mcg PO BID Qty: 120 0RF alprazolam 0.5 mg tablet 0.5 mg PO BID PRN (Reason: anxiety) 30 Days Qty: 60 1RF Primary Care Provider: Alondra Davies Referrals: Alondra Davies MD [Primary Care Provider] - 3-5 Days Activity Restrictions/Additional Instructions: Please follow-up with your PCP, return for any worsening symptoms. Disposition Disposition: Home, Self Care Discharge Date/Time: 08/16/22 16:08
[2022-08-16] MEDS: 0.9% Normal Saline 1,000 ML 999 ML IV (11:35)
[2022-08-16 11:44] LABS: Absolute Neutrophil Count 3.7 X10^3/uL (2.0-7.7); Basophil# 0.05 X10^3/uL; Basophil% 0.7 % (0-1); Eosinophils% 7.5 % (0-5); Hematocrit 37.6 % (37-47); Hemoglobin 11.8 g/dL (12.0-15.0); Lymphocyte % 28.4 % (19-41); Mean Corp Hgb Conc 31.4 g/dL (32-36); Mean Corpuscular Hgb 26.6 pg (27.0-32.0); Mean Corpuscular Volume 84.9 fL (81-99); Mean Platelet Vol. 10.2 fl (6.2-12.0); Monocyte# 0.54 X10^3/uL; Monocyte% 8.1 % (0-10); NRBC Flagged by Analyzer 0 % (0-5); Neutrophil # 3.67 X10^3/uL (2.7-7.7); Neutrophil % 54.9 % (47-70); Platelet Count 392 K/mm3 (150-450); RBC Distribution Width CV 14.5 % (11.6-14.6); Red Blood Count 4.43 M/mm3 (4.2-5.4); White Blood Count 6.7 K/mm3 (4.4-11.0)
[2022-08-16 12:02] LABS: Anion Gap 8 (5-15); BUN 14 mg/dL (7-18); BUN/Creat Ratio 9.4 RATIO (10-20); Calcium,Total 6.9 mg/dL (8.5-10.1); Chloride 103 mmol/L (98-107); Creatinine, Serum 1.49 mg/dL (0.55-1.02); EST Glomerular Filtration Rate 38 mL/min (>60); Est Glom Filt Rate - Afr Amer 47 mL/min (>60); Glucose 97 mg/dL (74-106); Magnesium 1.5 mg/dL (1.6-2.6); Potassium 3.2 mmol/L (3.5-5.1); Sodium Level 140 mmol/L (136-145)
[2022-08-16] MEDS: Potassium Chloride Oral Tablet 20 MEQ 40 MEQ PO (13:32)
[2022-08-16 16:04] VITALS: BP 94/62; PULSE 76; RESP 16; O2SAT 96
== END 2022-08-16 16:08 | disposition home or self-care (01) ==
PROVIDERS: Physician Assistant; Emergency Provider Emergency Medicine; PCP Internal Medicine; Visit Provider Emergency Medicine
DX: E83.51 Hypocalcemia (principal); N18.30 Chronic kidney disease, stage 3 unspecified; E87.6 Hypokalemia; E83.42 Hypomagnesemia; R53.1 Weakness; G47.33 Obstructive sleep apnea (adult) (pediatric)
CPT/HCPCS: 80048; 83735; 85025; 96365; 96366; 96368; 96375; 99282; J7030; A4216; J0612

== ENCOUNTER 2022-08-24 23:45 | Emergency (ER) | payer MEDICARE, MEDICAID, SELFPAY ==
[2022-08-24 23:46] VITALS: BP 162/98; PULSE 89; RESP 16; TEMP 35.5; O2SAT 99; BMI 49.2
--- NOTE | 2022-08-25 00:25 | EX.ED.VIS.HA ---
HPI History of Present Illness Chief Complaint: Headache Informant: patient Narrative Narrative: Nontraumatic headache for 2 days. Photophobia phonophobia. Vomiting x1 this evening. History of migraines has not had a flare in a while. No fevers. Denies any cardiac history. Has been given migraine cocktail in the past. She drove herself here. Prior similar symptoms: Yes PFSH [facility] Medical History ADHD Allergic rhinitis Anemia Anemia Anxiety Anxiety disorder, unspecified Arthritis Chronic diarrhea Chronic kidney disease, stage 3 Depression Difficulty balancing Easy bruising Edema Exocrine pancreatic insufficiency Fatigue Gastric reflux GERD (gastroesophageal reflux disease) Gout High cholesterol History of blood transfusion History of edema History of IBS History of kidney stones history of left foot fracture History of renal disease Hypertension Hypothyroidism Hypothyroidism (acquired) Insomnia Irritable bowel syndrome Kidney disease Knee pain Leg cramps Major depressive disorder, recurrent severe without psychotic features Migraine 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) Non-smoker Obesity Obstructive sleep apnea Osteoarthritis of right knee Post traumatic stress disorder Post-menopausal Post-surgical hypoparathyroidism Restless leg syndrome Shortness of breath on exertion Sleep apnea Stage III chronic kidney disease Ureteral calculus Vertigo Vitamin D deficiency Wears contact lenses Wears dentures Wears glasses Home Medications cyanocobalamin (vitamin B-12) 500 mcg tablet 1,000 mcg PO DAILY@0800 Supplement 09/16/17 [History Last Taken 07/15/18] atorvastatin 20 mg tablet 20 mg PO DAILY 09/24/21 [History Last Taken Unknown] cholecalciferol (vitamin D3) 50 mcg (2,000 unit) capsule (Vitamin D3) 1,250 mcg PO DAILY 09/24/21 [History Last Taken Unknown] levothyroxine 100 mcg tablet 100 mcg PO DAILY 09/24/21 [History Last Taken Unknown] ramelteon 8 mg tablet 8 mg PO QHS PRN sleep #30 tabs 06/08/22 [Rx Last Taken Unknown] vortioxetine 20 mg tablet 20 mg PO DAILY #30 tabs 06/08/22 [Rx Last Taken Unknown] compr.stocking,thigh,reg,x-lrg #12 ea 06/29/22 [Rx Last Taken Unknown] fluticasone propionate 50 mcg/actuation nasal spray,suspension (Flonase Allergy Relief) 1 spray intranasal DAILY #16 grams 06/29/22 [Rx Last Taken 07/08/22] aripiprazole 10 mg tablet 10 mg PO DAILY DEPRESSION 07/06/22 [History Last Taken Unknown] bupropion HCl 300 mg 24 hr tablet, extended release 300 mg PO DAILY 07/19/22 [History Last Taken Unknown] pantoprazole 20 mg tablet,delayed release 40 mg PO DAILY 07/19/22 [History Last Taken Unknown] potassium chloride 20 mEq oral packet 40 meq PO DAILY 07/19/22 [History Last Taken Unknown] calcitriol 0.25 mcg capsule 0.5 mcg PO BID #120 caps 07/20/22 [Rx Last Taken Unknown] calcium citrate 500 mg PO BID #120 tabs 07/20/22 [Rx Last Taken Unknown] alprazolam 0.5 mg tablet 0.5 mg PO BID PRN anxiety 30 days #60 TABLETS 08/10/22 [Rx Last Taken Unknown] magnesium 200 mg tablet 200 mg PO DAILY #14 tabs 08/16/22 [Rx Last Taken Unknown] Allergy/AdvReac Type Severity Reaction Status Date / Time Iodinated Contrast Media Allergy Rash Verified 08/24/22 23:46 [DYEE] propranolol Allergy unknown Verified 08/24/22 23:46 iron AdvReac Other Verified 08/24/22 23:46 morphine AdvReac Rash Verified 08/24/22 23:46 ondansetron [From Zofran] AdvReac Other Verified 08/24/22 23:46 Family History Mother Stomach cancer Anemia Arthritis MEN, type 1 Father Pneumonia Anxiety Arthritis Depression Surgical History H/O right knee surgery History of cholecystectomy History of colonoscopy History of esophagogastroduodenoscopy (EGD) history of gastric sleeve History of hysterectomy History of parathyroidectomy history of right collar bone surgery Social History adopted: No household members: none housing: apartment current occupational status: unemployed current occupation: disability history of recent travel: No sexually active: No Smoking Status: Never smoker Electronic Cigarette Use: not used alcohol intake: current alcohol intake frequency: holidays/special occasions only details: once or twice a year substance use type: does not use, former substance user and marijuana diet: low salt well-balanced diet: about half the time caffeine: Yes eating out: 4 or more times/week during the past year weight has: increased > 10 lbs what type of physical activity do you participate in: walking frequency: 1-2 times per week seatbelt use: always do you feel safe at home: Yes ROS ROS ED Constitutional Constitutional ED: Denies chills, fever(s) or sweats Eyes Eyes: Denies change in vision ENT ENT ED: Denies dysphagia or sore throat Cardiovascular Cardiovascular: Denies chest pain, leg edema, palpitations or racing heartbeat Respiratory/Chest Respiratory/Chest: Denies cough, dyspnea or dyspnea on exertion Gastrointestinal Gastrointestinal: Reports vomiting; Denies abdominal pain, diarrhea or nausea Genitourinary Genitourinary ED: Denies dysuria, hematuria or urinary frequency Musculoskeletal Musculoskeletal: Denies back pain, extremity pain or neck pain Integumentary Denies rash or wounds Neurologic Neurologic: Reports headache(s); Denies paresthesias or weakness EXAM Physical Exam Const Vital Signs: 08/24/22 23:46 Temperature 95.9 F L Temperature Source Temporal Pulse Rate 89 Respiratory Rate 16 Blood Pressure 162/98 H Blood Pressure Mean 119 Pulse Ox 99 Positive well nourished and well developed General Appearance ED: well developed and NAD HEENT Reports moist mucous membranes normocephalic and atraumatic Eyes PERRL, EOMs intact bilaterally and conjunctivae normal Eyes Narrative: No photophobia General Eye ED: Yes normal appearance of both eyes Neck no lymphadenopathy, supple and no meningeal signs General: Negative for tenderness Chest Wall Chest: Negative for tenderness Resp normal respiratory effort and normal air movement Effort and Inspection: symmetric chest movement; Negative for respiratory distress Cardio regular rate, regular rhythm and no murmurs Peripheral Pulses: pulses 2+ throughout GI normal to inspection, nondistended, normoactive bowel sounds and non-tender Palpation: Negative for guarding or rebound tenderness present Back/Spine no CVA tenderness and no thoracic nor lumbar tenderness Extremity normal to inspection General Extremety ED: Negative for edema or tenderness General Extremity: Negative for edema Neuro oriented x3, CN's II-XII intact bilaterally and no sensory deficits noted Sensorium / Orientation: awake and alert Skin no rashes or lesions noted and no wounds MDM MDM MDM Narrative Medical decision making narrative: Interventions / MDM: Differential diagnosis: Migraine headache Diagnosis considered but do not suspect: No meningismus sign for concerns for meningitis My EKG interpretation: N/A Imaging independently reviewed and interpreted by myself: N/A External documents reviewed: N/A Test considered but not ordered:N/A ED course: Patient nontoxic migraine presentation similar to previous. She is treated with Imitrex subcu. Re-evaluation: stable with improvement of symptoms. Offered to write her prescription for Imitrex however, she states she will discuss with her PCP for this medication to use as an outpatient. All questions were answered. Disposition discussed with patient/family/significant other: Patient Case discussed with consulting clinician: N/A Discharge Plan Triage Chief Complaint: Headache ED Provider: Agustin Amaya Dx/Rx/DC Orders Clinical Impression: Headache, migraine Prescriptions: No Action vortioxetine 20 mg tablet 20 mg PO DAILY Qty: 30 2RF ramelteon 8 mg tablet 8 mg PO QHS PRN (Reason: sleep) Qty: 30 2RF fluticasone propionate [Flonase Allergy Relief] 50 mcg/actuation spray,suspension 1 spray intranasal DAILY Qty: 16 0RF Rx Instructions: administer into each nostril (DME) compr.stocking,thigh,reg,x-lrg Misc See Rx Instructions .Route Qty: 12 0RF Rx Instructions: As directed cyanocobalamin (vitamin B-12) 500 MCG tablet 1,000 mcg PO DAILY@0800 atorvastatin 20 mg Tablet 20 mg PO DAILY levothyroxine 100 mcg Tablet 100 mcg PO DAILY cholecalciferol (vitamin D3) [Vitamin D3] 50 mcg (2,000 unit) Capsule 1,250 mcg PO DAILY aripiprazole 10 mg tablet 10 mg PO DAILY pantoprazole 20 mg tablet,delayed release (DR/EC) 40 mg PO DAILY potassium chloride 20 mEq packet 40 meq PO DAILY bupropion HCl 300 mg tablet extended release 24 hr 300 mg PO DAILY calcium citrate 250 mg calcium tablet 500 mg PO BID Qty: 120 0RF calcitriol 0.25 mcg capsule 0.5 mcg PO BID Qty: 120 0RF magnesium 200 mg tablet 200 mg PO DAILY Qty: 14 0RF alprazolam 0.5 mg tablet 0.5 mg PO BID PRN (Reason: anxiety) 30 Days Qty: 60 1RF Primary Care Provider: Alondra Davies Referrals: Alondra Davies MD [Primary Care Provider] - 1 Week Activity Restrictions/Additional Instructions: Migraine improved with Imitrex subcu. Discussed with your doctor if this is an option for you to take for breakthrough migraines. Disposition Disposition: Home, Self Care Discharge Date/Time: 08/25/22 01:17
[2022-08-25] MEDS: SUMAtriptan 6 MG/0.5 ML Vial SC (00:46)
== END 2022-08-25 01:17 | disposition home or self-care (01) ==
PROVIDERS: Emergency Provider Emergency Medicine; PCP Internal Medicine; Visit Provider Emergency Medicine
DX: G43.909 Migraine, unspecified, not intractable, without status migrainosus (principal); N18.30 Chronic kidney disease, stage 3 unspecified; G47.33 Obstructive sleep apnea (adult) (pediatric)
CPT/HCPCS: 96372; 99282; J3030

== ENCOUNTER 2022-09-24 15:17 | Emergency (ER) | payer MEDICARE, MEDICAID, SELFPAY ==
[2022-09-24 15:18] VITALS: BP 157/88; PULSE 71; RESP 18; TEMP 36.2; O2SAT 100; BMI 49.2
--- NOTE | 2022-09-24 15:30 | CT_ITS ---
STUDY: CT ABDOMEN AND PELVIS WITHOUT CONTRAST REASON FOR EXAM: Female, 57 years old. Pain RADIATION DOSAGE (If Supplied By Facility): CTDIvol = ( 23.78 ) mGy, DLP = ( 1307.03 ) mGycm TECHNIQUE: Transaxial images were obtained from the dome of the diaphragm to the symphysis pubis without oral contrast, and without intravenous contrast. Sagittal and coronal images were reconstructed. Individualized dose optimization techniques were used for this CT. COMPARISON: February 25, 2022 FINDINGS: The visualized lung bases are unremarkable. The visualized portions of the heart are within normal limits. . Small hiatal hernia Normal liver. Gallbladder has been removed surgically. Normal spleen. Normal pancreas. Normal bilateral adrenal glands. Normal right kidney. Normal left kidney. Postsurgical changes of the stomach. Normal small intestine. Minor diverticular changes of the distal descending and sigmoid colon without evidence for acute diverticulitis. No evidence for acute appendicitis. Minor atherosclerotic change of the aorta without evidence for aneurysm. Normal inferior vena cava. Normal retroperitoneum. Normal urinary bladder. Uterus not visualized status post hysterectomy Normal abdominal wall. Lumbar spine demonstrates degenerative changes. CT/Abdomen/Pelvis without Cont IMPRESSION: Minor diverticular changes of the distal descending and sigmoid colon without evidence for acute diverticulitis. No evidence for small bowel obstruction or other acute abnormality. Postsurgical changes of the stomach, prior cholecystectomy and hysterectomy Electronically Signed: Syed Jones MD at 16:30 EDT ,
--- NOTE | 2022-09-24 15:32 | EX.ED.DYSGE1 ---
HPI History of Present Illness Chief Complaint: Flank Pain Narrative Narrative: Patient presents with epigastric pain that started earlier today, she has nausea, the pain radiates into her back, she has no lower abdominal pain. She has no urinary symptoms. She has no diarrhea. She does have some nausea. She does have a history of adenoma polyp colon. No fevers or chills [facility] Medical History ADHD Allergic rhinitis Anemia Anemia Anxiety Anxiety disorder, unspecified Arthritis Chronic diarrhea Chronic kidney disease, stage 3 Depression Difficulty balancing Easy bruising Edema Exocrine pancreatic insufficiency Fatigue Gastric reflux GERD (gastroesophageal reflux disease) Gout High cholesterol History of blood transfusion History of edema History of IBS History of kidney stones history of left foot fracture History of renal disease Hypertension Hypothyroidism Hypothyroidism (acquired) Insomnia Irritable bowel syndrome Kidney disease Knee pain Leg cramps Major depressive disorder, recurrent severe without psychotic features Migraine 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) Non-smoker Obesity Obstructive sleep apnea Osteoarthritis of right knee Post traumatic stress disorder Post-menopausal Post-surgical hypoparathyroidism Restless leg syndrome Shortness of breath on exertion Sleep apnea Stage III chronic kidney disease Ureteral calculus Vertigo Vitamin D deficiency Wears contact lenses Wears dentures Wears glasses Home Medications cyanocobalamin (vitamin B-12) 500 mcg tablet 1,000 mcg PO DAILY@0800 Supplement 09/16/17 [History Last Taken 07/15/18] atorvastatin 20 mg tablet 20 mg PO DAILY 09/24/21 [History Last Taken Unknown] cholecalciferol (vitamin D3) 50 mcg (2,000 unit) capsule (Vitamin D3) 1,250 mcg PO DAILY 09/24/21 [History Last Taken Unknown] levothyroxine 100 mcg tablet 100 mcg PO DAILY 09/24/21 [History Last Taken Unknown] compr.stocking,thigh,reg,x-lrg #12 ea 06/29/22 [Rx Last Taken Unknown] fluticasone propionate 50 mcg/actuation nasal spray,suspension (Flonase Allergy Relief) 1 spray intranasal DAILY #16 grams 06/29/22 [Rx Last Taken 07/08/22] pantoprazole 20 mg tablet,delayed release 40 mg PO DAILY 07/19/22 [History Last Taken Unknown] potassium chloride 20 mEq oral packet 40 meq PO DAILY 07/19/22 [History Last Taken Unknown] calcitriol 0.25 mcg capsule 0.5 mcg (2 x 0.25 mcg) PO BID #120 caps 07/20/22 [Rx Last Taken Unknown] calcium citrate 500 mg (2 x 250 mg calcium) PO BID #120 tabs 07/20/22 [Rx Last Taken Unknown] magnesium 200 mg tablet 200 mg PO DAILY #14 tabs 08/16/22 [Rx Last Taken Unknown] alprazolam 0.5 mg tablet 0.5 mg PO BID PRN anxiety 30 days #60 TABLETS 09/07/22 [Rx Last Taken Unknown] aripiprazole 10 mg tablet 10 mg PO DAILY DEPRESSION #30 tabs 09/07/22 [Rx Last Taken Unknown] bupropion HCl 300 mg 24 hr tablet, extended release 300 mg PO DAILY #30 tabs 09/07/22 [Rx Last Taken Unknown] hydroxyzine HCl 25 mg tablet 25 mg PO TID PRN anxiety #90 tabs 09/07/22 [Rx Last Taken Unknown] ramelteon 8 mg tablet 8 mg PO QHS PRN sleep #30 tabs 09/07/22 [Rx Last Taken Unknown] vortioxetine 20 mg tablet 20 mg PO DAILY #30 tabs 09/07/22 [Rx Last Taken Unknown] metoclopramide HCl 10 mg tablet (Reglan) 10 mg PO Q6H PRN nausea and vomiting #10 tabs 09/24/22 [Rx Last Taken Unknown] Allergy/AdvReac Type Severity Reaction Status Date / Time Iodinated Contrast Media Allergy Rash Verified 09/11/22 09:54 [DYEE] propranolol Allergy unknown Verified 09/11/22 09:54 iron AdvReac Other Verified 09/11/22 09:54 morphine AdvReac Rash Verified 09/11/22 09:54 ondansetron [From Zofran] AdvReac Other Verified 09/11/22 09:54 Family History Mother Stomach cancer Anemia Arthritis MEN, type 1 Father Pneumonia Anxiety Arthritis Depression Surgical History H/O right knee surgery History of cholecystectomy History of colonoscopy History of esophagogastroduodenoscopy (EGD) history of gastric sleeve History of hysterectomy History of parathyroidectomy history of right collar bone surgery Social History adopted: No household members: none housing: apartment current occupational status: unemployed current occupation: disability history of recent travel: No sexually active: No Smoking Status: Never smoker Electronic Cigarette Use: not used alcohol intake: current alcohol intake frequency: holidays/special occasions only details: once or twice a year substance use type: does not use, former substance user and marijuana diet: low salt well-balanced diet: about half the time caffeine: Yes eating out: 4 or more times/week during the past year weight has: increased > 10 lbs what type of physical activity do you participate in: walking frequency: 1-2 times per week seatbelt use: always do you feel safe at home: Yes ROS ROS ED ROS Narrative General: No fever Eyes: No visual changes ENT: No upper airway congestion, normal voice Neck: No neck pain Cardiovascular: No chest pain Respiratory: No shortness of breath or cough Gastrointestinal: As in HPI Genitourinary: No dysuria Musculoskeletal: Denies myalgias no difficulty with ambulation Skin: No rash Neurological: No memory loss, confusion or any focal weakness Psych: No recent behavioral changes Hematologic: No easy bleeding or easy bruising EXAM Physical Exam Narrative Exam Narrative: Physical exam General: she appears relatively comfortable in the bed Eyes: Conjunctiva not pale ENT: Moist mucous membranes Neck: Supple, Nontender, No lymphadenopathy Cardiovascular: Regular rate, Regular rhythm Respiratory: No distress, CTA bilaterally Abdomen: Soft, epigastric tenderness without any guarding or rebound. No right upper quadrant pain. No lower abdominal pain or pain at McBurney's. Back: Nontender, Normal Inspection. Negative for: CVA tenderness Extremities: Nontender, No edema Skin: Normal color, No rash Neurological: Alert, Normal Strength, Normal Sensation Const Vital Signs: 09/24/22 15:18 Temperature 97.2 F L Temperature Source Temporal Pulse Rate 71 Respiratory Rate 18 Blood Pressure 157/88 H Blood Pressure Mean 111 Pulse Ox 100 Oxygen Delivery Method Room Air MDM MDM MDM Narrative Medical decision making narrative: Patient has an unremarkable work-up. I thought about pancreatitis however she has a normal lipase and normal CT of the pancreas. There is no evidence of retained gallstones after surgery. There is no evidence of colitis or any other abdominal pathology at this time. There is no evidence of UTI. She likely has gastritis she improved in the ED upon reevaluation her pain is almost gone and she feels much better. I will discharge her in stable condition she is already on a PPI I told her to take Pepcid for the next few days and then follow-up with her PCP. She understands. At this time she does not meet admission criteria. Lab Data Labs: Laboratory Results - last 24 hr 09/24/22 09/24/22 15:45 17:02 WBC 6.6 RBC 4.85 Hgb 12.4 Hct 38.8 MCV 80.0 L MCH 25.6 L MCHC 32.0 RDW Std Deviation 43.1 RDW Coeff of Teena 14.8 H Plt Count 330 MPV 9.9 Immature Gran % (Auto) 0.200 Neut % (Auto) 63.5 Lymph % (Auto) 23.0 [place] % (Auto) 5.2 Eos % (Auto) 7.3 H Baso % (Auto) 0.8 Absolute Neuts (auto) 4.2 Absolute Lymphs (auto) 1.52 Nucleated RBC % 0 Sodium 137 Potassium 4.4 Chloride 104 Carbon Dioxide 26.0 Anion Gap 7 BUN 18 Creatinine 1.55 H Estim Creat Clear Calc 39.41 Est GFR (MDRD) Af Amer 44 L Est GFR (MDRD) Non-Af 37 L BUN/Creatinine Ratio 11.6 Glucose 84 Calcium 7.6 L Total Bilirubin 0.50 AST 14 L ALT 17 Alkaline Phosphatase 175 H Total Protein 7.3 Albumin 3.3 Globulin 4.0 Albumin/Globulin Ratio 0.8 L Lipase 13 Urine Color Yellow Urine Clarity Sl. Cloudy Urine pH 6.0 Ur Specific [place] 1.010 Urine Protein Negative Urine Glucose (UA) Normal Urine Ketones Negative Urine Occult Blood Negative Urine Nitrite Negative Urine Bilirubin Negative Urine Urobilinogen Normal Ur Leukocyte Esterase Negative Radiography Diagnostic Testing: Clinical Impression(s) from Imaging Studies Abdomen/Pelvis CT 09/24/22 15:30 IMPRESSION: Minor diverticular changes of the distal descending and sigmoid colon without evidence for acute diverticulitis. No evidence for small bowel obstruction or other acute abnormality. Postsurgical changes of the stomach, prior cholecystectomy and hysterectomy Electronically Signed: Syed Jones MD at 16:30 EDT , Discharge Plan Triage Chief Complaint: Flank Pain ED Provider: Jose D Thomas Dx/Rx/DC Orders Clinical Impression: Nausea, Acute epigastric pain Instructions: ED Epigastric Pain Uncertain Cause Prescriptions: New metoclopramide HCl [Reglan] 10 mg tablet 10 mg PO Q6H PRN (Reason: nausea and vomiting) Qty: 10 0RF No Action hydroxyzine HCl 25 mg tablet 25 mg PO TID PRN (Reason: anxiety) Qty: 90 2RF alprazolam 0.5 mg tablet 0.5 mg PO BID PRN (Reason: anxiety) 30 Days Qty: 60 1RF aripiprazole 10 mg tablet 10 mg PO DAILY Qty: 30 2RF bupropion HCl 300 mg tablet extended release 24 hr 300 mg PO DAILY Qty: 30 2RF ramelteon 8 mg tablet 8 mg PO QHS PRN (Reason: sleep) Qty: 30 2RF vortioxetine 20 mg tablet 20 mg PO DAILY Qty: 30 2RF fluticasone propionate [Flonase Allergy Relief] 50 mcg/actuation spray,suspension 1 spray intranasal DAILY Qty: 16 0RF Rx Instructions: administer into each nostril (DME) compr.stocking,thigh,reg,x-lrg Misc See Rx Instructions .Route Qty: 12 0RF Rx Instructions: As directed cyanocobalamin (vitamin B-12) 500 MCG tablet 1,000 mcg PO DAILY@0800 atorvastatin 20 mg Tablet 20 mg PO DAILY levothyroxine 100 mcg Tablet 100 mcg PO DAILY cholecalciferol (vitamin D3) [Vitamin D3] 50 mcg (2,000 unit) Capsule 1,250 mcg PO DAILY pantoprazole 20 mg tablet,delayed release (DR/EC) 40 mg PO DAILY potassium chloride 20 mEq packet 40 meq PO DAILY calcium citrate 250 mg calcium tablet 500 mg PO BID Qty: 120 0RF calcitriol 0.25 mcg capsule 0.5 mcg PO BID Qty: 120 0RF magnesium 200 mg tablet 200 mg PO DAILY Qty: 14 0RF Primary Care Provider: Alondra Davies Referrals: Alondra Davies MD [Primary Care Provider] - 3-5 Days Disposition Disposition: Home, Self Care
[2022-09-24] MEDS: Metoclopramide 10 MG/2 ML Vial 5 MG IV (15:45)
[2022-09-24] MEDS: DiphenhydrAMINE 50 MG/ML Syringe 12.5 MG IV (15:46)
[2022-09-24] MEDS: HYDROmorphone 1 MG/ML Syringe 0.5 MG IV (15:46)
[2022-09-24] MEDS: 0.9% Normal Saline 1,000 ML 1000 ML IV (15:47)
[2022-09-24 16:01] LABS: Absolute Lymphocyte Count 1.52 X10^3/uL (0.83-4.51); Absolute Neutrophil Count 4.2 X10^3/uL (2.0-7.7); Basophil# 0.05 X10^3/uL; Basophil% 0.8 % (0-1); Eosinophil# 0.48 X10^3/uL; Eosinophils% 7.3 % (0-5); Hematocrit 38.8 % (37-47); Hemoglobin 12.4 g/dL (12.0-15.0); Lymphocyte # 1.52 X10^3/ul (0.83-4.51); Mean Corpuscular Hgb 25.6 pg (27.0-32.0); Mean Platelet Vol. 9.9 fl (6.2-12.0); Monocyte# 0.34 X10^3/uL; Monocyte% 5.2 % (0-10); NRBC Flagged by Analyzer 0 % (0-5); Neutrophil % 63.5 % (47-70); Platelet Count 330 K/mm3 (150-450); RBC Distribution Width CV 14.8 % (11.6-14.6); RBC Distribution Width SD 43.1 fl (35.1-43.9); Red Blood Count 4.85 M/mm3 (4.2-5.4); White Blood Count 6.6 K/mm3 (4.4-11.0)
[2022-09-24 16:16] LABS: ALB/GLOB Ratio 0.8 RATIO (0.9-2.4); AST(SGOT) 14 U/L (15-37); Alanine Aminotransfer ALT/SGPT 17 U/L (13-56); Albumin, Serum 3.3 g/dL (3.2-5.0); Alkaline Phosphatase 175 U/L (45-117); Anion Gap 7 (5-15); BUN 18 mg/dL (7-18); BUN/Creat Ratio 11.6 RATIO (10-20); Calcium,Total 7.6 mg/dL (8.5-10.1); Chloride 104 mmol/L (98-107); Creatinine, Serum 1.55 mg/dL (0.55-1.02); EST Glomerular Filtration Rate 37 mL/min (>60); Est Glom Filt Rate - Afr Amer 44 mL/min (>60); Estimated Creatinine Clearance 39.41 ml/min; Glucose 84 mg/dL (74-106); Lipase 13 U/L (13-75); Potassium 4.4 mmol/L (3.5-5.1); Protein, Total 7.3 g/dL (6.4-8.2); Sodium Level 137 mmol/L (136-145)
[2022-09-24] MEDS: Famotidine 200 MG/20 ML MDV 20 MG in 0.9% Normal Saline (Pres. free 8 ML 300 MG IV (16:59)
[2022-09-24 17:10] LABS: Bacteria 0 SEEN /hpf (None Seen); Mucous, Urine 0 SEEN /hpf (<or=2+); Red Blood Cells-Urine 0 SEEN /hpf (0-5); White Blood Cells 0 SEEN /hpf (0-5)
[2022-09-24 17:19] LABS: Color, Urine Yellow (Yellow); Glucose, Dipstick Normal (Normal); Ketone-Dipstick Negative (Negative); Leukocyte Esterase-Dipstick Negative /ul (Negative); Nitrite-Dipstick Negative (Negative); Occult Blood-Urine Negative /ul (Negative); Protein-Dipstick Negative (Negative); Urine Bilirubin Dipstick Negative (Negative); Urine Clarity Sl. Cloudy (Clear); Urine Urobilinogen Normal (Normal)
[2022-09-24 17:45] LABS: Squamous Epithelial Cells - UA 0-5 SEEN /hpf (5-10)
[2022-09-24 17:46] VITALS: BP 148/84; PULSE 89; RESP 16; O2SAT 98
== END 2022-09-24 17:47 | disposition home or self-care (01) ==
PROVIDERS: Emergency Provider Emergency Medicine; PCP Internal Medicine; Visit Provider Emergency Medicine
DX: R10.13 Epigastric pain (principal); N18.30 Chronic kidney disease, stage 3 unspecified; R11.0 Nausea; G47.33 Obstructive sleep apnea (adult) (pediatric)
CPT/HCPCS: 74176; 80053; 81001; 83690; 85025; 96361; 96374; 96375; 99283; J7030; A4216; J3490

== ENCOUNTER 2022-09-30 17:07 | Emergency (ER) | payer MEDICARE, MEDICAID, SELFPAY ==
[2022-09-30 17:08] VITALS: BP 132/88; PULSE 77; RESP 18; TEMP 36.3; O2SAT 97; BMI 47.1
--- NOTE | 2022-09-30 17:53 | EDS_ITS ---
HPI History of Present Illness Chief Complaint: Abd Pain [facility] Medical History ADHD Allergic rhinitis Anemia Anemia Anxiety Anxiety disorder, unspecified Arthritis Chronic diarrhea Chronic kidney disease, stage 3 Depression Difficulty balancing Easy bruising Edema Exocrine pancreatic insufficiency Fatigue Gastric reflux GERD (gastroesophageal reflux disease) Gout High cholesterol History of blood transfusion History of edema History of IBS History of kidney stones history of left foot fracture History of renal disease Hypertension Hypothyroidism Hypothyroidism (acquired) Insomnia Irritable bowel syndrome Kidney disease Knee pain Leg cramps Major depressive disorder, recurrent severe without psychotic features Migraine 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) Non-smoker Obesity Obstructive sleep apnea Osteoarthritis of right knee Post traumatic stress disorder Post-menopausal Post-surgical hypoparathyroidism Restless leg syndrome Shortness of breath on exertion Sleep apnea Stage III chronic kidney disease Ureteral calculus Vertigo Vitamin D deficiency Wears contact lenses Wears dentures Wears glasses Home Medications cyanocobalamin (vitamin B-12) 500 mcg tablet 1,000 mcg PO DAILY@0800 Supplement 09/16/17 [History Last Taken 07/15/18] atorvastatin 20 mg tablet 20 mg PO DAILY 09/24/21 [History Last Taken Unknown] cholecalciferol (vitamin D3) 50 mcg (2,000 unit) capsule (Vitamin D3) 1,250 mcg PO DAILY 09/24/21 [History Last Taken Unknown] levothyroxine 100 mcg tablet 100 mcg PO DAILY 09/24/21 [History Last Taken Unknown] compr.stocking,thigh,reg,x-lrg #12 ea 06/29/22 [Rx Last Taken Unknown] fluticasone propionate 50 mcg/actuation nasal spray,suspension (Flonase Allergy Relief) 1 spray intranasal DAILY #16 grams 06/29/22 [Rx Last Taken 07/08/22] pantoprazole 20 mg tablet,delayed release 40 mg PO DAILY 07/19/22 [History Last Taken Unknown] potassium chloride 20 mEq oral packet 40 meq PO DAILY 07/19/22 [History Last Taken Unknown] calcitriol 0.25 mcg capsule 0.5 mcg (2 x 0.25 mcg) PO BID #120 caps 07/20/22 [Rx Last Taken Unknown] calcium citrate 500 mg (2 x 250 mg calcium) PO BID #120 tabs 07/20/22 [Rx Last Taken Unknown] magnesium 200 mg tablet 200 mg PO DAILY #14 tabs 08/16/22 [Rx Last Taken Unknown] alprazolam 0.5 mg tablet 0.5 mg PO BID PRN anxiety 30 days #60 TABLETS 09/07/22 [Rx Last Taken Unknown] aripiprazole 10 mg tablet 10 mg PO DAILY DEPRESSION #30 tabs 09/07/22 [Rx Last Taken Unknown] bupropion HCl 300 mg 24 hr tablet, extended release 300 mg PO DAILY #30 tabs 09/07/22 [Rx Last Taken Unknown] hydroxyzine HCl 25 mg tablet 25 mg PO TID PRN anxiety #90 tabs 09/07/22 [Rx Last Taken Unknown] ramelteon 8 mg tablet 8 mg PO QHS PRN sleep #30 tabs 09/07/22 [Rx Last Taken Unknown] vortioxetine 20 mg tablet 20 mg PO DAILY #30 tabs 09/07/22 [Rx Last Taken Unknown] metoclopramide HCl 10 mg tablet (Reglan) 10 mg PO Q6H PRN nausea and vomiting #10 tabs 09/24/22 [Rx Last Taken Unknown] metoclopramide HCl 5 mg tablet (Reglan) 5 mg PO Q8H PRN PRN nausea and vomiting 7 days #20 tabs 09/30/22 [Rx Last Taken Unknown] Allergy/AdvReac Type Severity Reaction Status Date / Time Iodinated Contrast Media Allergy Rash Verified 09/30/22 17:08 [DYEE] propranolol Allergy unknown Verified 09/30/22 17:08 iron AdvReac Other Verified 09/30/22 17:08 morphine AdvReac Rash Verified 09/30/22 17:08 ondansetron [From Zofran] AdvReac Other Verified 09/30/22 17:08 Family History Mother Stomach cancer Anemia Arthritis MEN, type 1 Father Pneumonia Anxiety Arthritis Depression Surgical History H/O right knee surgery History of cholecystectomy History of colonoscopy History of esophagogastroduodenoscopy (EGD) history of gastric sleeve History of hysterectomy History of parathyroidectomy history of right collar bone surgery Social History adopted: No household members: none housing: apartment current occupational status: unemployed current occupation: disability history of recent travel: No sexually active: No Smoking Status: Never smoker Electronic Cigarette Use: not used alcohol intake: current alcohol intake frequency: holidays/special occasions only details: once or twice a year substance use type: does not use, former substance user and marijuana diet: low salt well-balanced diet: about half the time caffeine: Yes eating out: 4 or more times/week during the past year weight has: increased > 10 lbs what type of physical activity do you participate in: walking frequency: 1-2 times per week seatbelt use: always do you feel safe at home: Yes EXAM Physical Exam Const Vital Signs: 09/30/22 17:08 Temperature 97.3 F L Temperature Source Temporal Pulse Rate 77 Respiratory Rate 18 Blood Pressure 132/88 H Blood Pressure Mean 102 Pulse Ox 97 Oxygen Delivery Method Room Air MDM MDM MDM Narrative Medical decision making narrative: HISTORY OF PRESENT ILLNESS: 57-year-old female here with abdominal pain after eating [place] food. She further states this began earlier this afternoon. States she has diffuse abdominal pain. Notes nausea but no vomiting. No fever. History of gastric sleeve. Last bowel was yesterday with no melena hematochezia. REVIEW OF SYSTEMS: Pertinent positives: Abdominal pain,, nausea Pertinent negatives: Vomiting, chest pain, shortness of breath, constipation, frequency of urination PHYSICAL EXAM: Nursing triage notes reviewed, Vital signs reviewed Constitutional: please see mdm HENT: MMM Eyes: Pupils equal round and reactive to light, Extraocular muscles intact Neck: No stridor, no JVD, full neck ROM Lungs: Clear to auscultation, No wheezing or rales. No increased work of breathing, no conversational dyspnea, no accessory muscle use, no nasal flaring. No respiratory distress noted Heart: Regular rate and rhythm, No murmurs, No rubs and No gallops, 2+ distal pulses (radial, femoral, posterior tibial) in all extremities Abdomen: Soft, there is no tenderness, rigidity, rebound or guarding, no obvious peritoneal signs, no palpable pulsatile abdominal masses, no auscultated abdominal bruit : No CVAT Extremities: No edema Neuro: No focal neurological deficits, cranial nerves II through XII intact, 5/5 strength in all extremities. Intact sensation to light touch in all extremities, 2+ reflexes bilateral patella tendons. Normal gait. No ataxia. Skin: No rash or lesions noted MEDICAL DECISION MAKING: Chief Complaint: Abdominal pain External records reviewed: CT scan of the abdomen pelvis without contrast from 09/24/2022 shows mild diverticular change in the distal descending and sigmoid colon without evidence of acute diverticulitis, there is no bowel obstruction or perforation noted. Factors affecting care: M EN 1, exocrine pancreatitis, hyperlipidemia, hypothyroidism, GERD Consults: none ALL IMAGES (IF OBTAINED) HAVE BEEN PERSONALLY REVIEWED AND INTERPRETED BY MYSELF. MDM Narrative: Patient was hemodynamically stable, afebrile, nontoxic-appearing. I considered the following differential diagnosis: AAA, small bowel obstruction, abdominal perforation, appendicitis, pancreatitis, hepatobiliary pathology (acute cholecystitis), mesenteric ischemia, abnormalities such as ovarian pathology, PID. Patient abdominal exam was completely benign not consistent with acute surgical process. I did offer a CT scan with oral contrast given the patient history of gastric sleeve however she refused stating she just got a CT scan done 6 days ago she is concerned that the [place] food may have caused irritation of her abdomen. We did not pursue CT scan at this time after shared decision-making discussion. The patient abdominal exam was benign. I did obtain labs to reveal any evidence of systemic inflammation, anemia, pancreatitis, acute kidney injury, electrolyte abnormality, hepatobiliary obstruction. Labs were remarkable for no evidence of systemic inflammation, severe anemia, electrolyte abnormalities, anion gap, significant hepatobiliary obstruction or pancreatitis. No clear etiology for the patient presentation. Prior to final reassessment, shared decision-making discussion, discussion of discharge paperwork patient eloped from the emergency department.. Total critical care time today provided was at least 0 minutes. This excludes separately billable procedures. Critical care time (if documented) is secondary to the patient having high probability of clinically significant/life threatening deterioration in the patient's condition which required my urgent intervention. Lab Data Attestation: I reviewed the patient's lab results. Lab results narrative: CBC without leukocytosis, severe anemia, no thrombocytopenia. BMP without evidence of significant electrolyte abnormalities, no anion gap, no acute kidney injury (although there is noted CKD). LFTs show no evidence of hepatobiliary pathology. Elevated alkaline phosphatase similar to prior. Lipase is wnl indicating no pancreatic inflammation. Labs: Laboratory Results - last 24 hr 09/30/22 18:35 WBC 8.1 RBC 4.94 Hgb 12.7 Hct 39.4 MCV 79.8 L MCH 25.7 L MCHC 32.2 RDW Std Deviation 42.9 RDW Coeff of Teena 14.7 H Plt Count 369 MPV 9.5 Immature Gran % (Auto) 0.200 Neut % (Auto) 58.8 Lymph % (Auto) 26.7 [place] % (Auto) 8.5 Eos % (Auto) 5.3 H Baso % (Auto) 0.5 Absolute Neuts (auto) 4.8 Absolute Lymphs (auto) 2.17 Nucleated RBC % 0 Sodium 137 Potassium 3.7 Chloride 101 Carbon Dioxide 31.0 Anion Gap 5 BUN 14 Creatinine 1.46 H Estim Creat Clear Calc 41.84 Est GFR (MDRD) Af Amer 48 L Est GFR (MDRD) Non-Af 39 L BUN/Creatinine Ratio 9.6 L Glucose 91 Calcium 8.6 Total Bilirubin 0.40 Direct Bilirubin 0.15 AST 11 L ALT 13 Alkaline Phosphatase 169 H Total Protein 7.5 Albumin 3.3 Globulin 4.2 Lipase 10 L Treatment and Re-Evaluation :: Repeat abdominal exam remained benign. Discharge Plan Triage Chief Complaint: Abd Pain ED Provider: Marino Dukes Dx/Rx/DC Orders Clinical Impression: Abdominal pain, Nausea Instructions: Abdominal Pain Prescriptions: New metoclopramide HCl [Reglan] 5 mg tablet 5 mg PO Q8H PRN PRN (Reason: nausea and vomiting) 7 Days Qty: 20 0RF No Action hydroxyzine HCl 25 mg tablet 25 mg PO TID PRN (Reason: anxiety) Qty: 90 2RF alprazolam 0.5 mg tablet 0.5 mg PO BID PRN (Reason: anxiety) 30 Days Qty: 60 1RF aripiprazole 10 mg tablet 10 mg PO DAILY Qty: 30 2RF bupropion HCl 300 mg tablet extended release 24 hr 300 mg PO DAILY Qty: 30 2RF ramelteon 8 mg tablet 8 mg PO QHS PRN (Reason: sleep) Qty: 30 2RF vortioxetine 20 mg tablet 20 mg PO DAILY Qty: 30 2RF fluticasone propionate [Flonase Allergy Relief] 50 mcg/actuation spray,suspension 1 spray intranasal DAILY Qty: 16 0RF Rx Instructions: administer into each nostril (DME) compr.stocking,thigh,reg,x-lrg Misc See Rx Instructions .Route Qty: 12 0RF Rx Instructions: As directed cyanocobalamin (vitamin B-12) 500 MCG tablet 1,000 mcg PO DAILY@0800 atorvastatin 20 mg Tablet 20 mg PO DAILY levothyroxine 100 mcg Tablet 100 mcg PO DAILY cholecalciferol (vitamin D3) [Vitamin D3] 50 mcg (2,000 unit) Capsule 1,250 mcg PO DAILY pantoprazole 20 mg tablet,delayed release (DR/EC) 40 mg PO DAILY potassium chloride 20 mEq packet 40 meq PO DAILY calcium citrate 250 mg calcium tablet 500 mg PO BID Qty: 120 0RF calcitriol 0.25 mcg capsule 0.5 mcg PO BID Qty: 120 0RF magnesium 200 mg tablet 200 mg PO DAILY Qty: 14 0RF metoclopramide HCl [Reglan] 10 mg tablet 10 mg PO Q6H PRN (Reason: nausea and vomiting) Qty: 10 0RF Primary Care Provider: Alondra Davies Referrals: Friend,Triston, DO [Med Staff - Active Staff] - Activity Restrictions/Additional Instructions: Thank you for trusting us with your care today! Please take Tylenol (2 pills, 650 mg), ibuprofen (2 pills, 400 mg) every 6 hours as needed for pain and fever control. Please return to the emergency department if your symptoms change or worsen. Specifically if you do not have bowel movements for greater than 1 week, if you not urinate for 12 hours, you develop vomiting, if your pain suddenly worsens. Please follow with Gastroenterology for further outpatient evaluation and management. Disposition Disposition: Home, Self Care Discharge Date/Time: 09/30/22 21:25
[2022-09-30 18:39] LABS: Absolute Lymphocyte Count 2.17 X10^3/uL (0.83-4.51); Absolute Neutrophil Count 4.8 X10^3/uL (2.0-7.7); Basophil# 0.04 X10^3/uL; Basophil% 0.5 % (0-1); Eosinophil# 0.43 X10^3/uL; Eosinophils% 5.3 % (0-5); Hematocrit 39.4 % (37-47); Hemoglobin 12.7 g/dL (12.0-15.0); Lymphocyte # 2.17 X10^3/ul (0.83-4.51); Lymphocyte % 26.7 % (19-41); Mean Corp Hgb Conc 32.2 g/dL (32-36); Mean Corpuscular Hgb 25.7 pg (27.0-32.0); Mean Corpuscular Volume 79.8 fL (81-99); Mean Platelet Vol. 9.5 fl (6.2-12.0); Monocyte# 0.69 X10^3/uL; Monocyte% 8.5 % (0-10); NRBC Flagged by Analyzer 0 % (0-5); Neutrophil # 4.78 X10^3/uL (2.7-7.7); Neutrophil % 58.8 % (47-70); Platelet Count 369 K/mm3 (150-450); RBC Distribution Width CV 14.7 % (11.6-14.6); RBC Distribution Width SD 42.9 fl (35.1-43.9); Red Blood Count 4.94 M/mm3 (4.2-5.4); White Blood Count 8.1 K/mm3 (4.4-11.0)
[2022-09-30 18:56] LABS: AST(SGOT) 11 U/L (15-37); Alanine Aminotransfer ALT/SGPT 13 U/L (13-56); Albumin, Serum 3.3 g/dL (3.2-5.0); Alkaline Phosphatase 169 U/L (45-117); Anion Gap 5 (5-15); BUN 14 mg/dL (7-18); BUN/Creat Ratio 9.6 RATIO (10-20); Bilirubin, Direct 0.15 mg/dL (0.00-0.30); Calcium,Total 8.6 mg/dL (8.5-10.1); Chloride 101 mmol/L (98-107); Creatinine, Serum 1.46 mg/dL (0.55-1.02); EST Glomerular Filtration Rate 39 mL/min (>60); Est Glom Filt Rate - Afr Amer 48 mL/min (>60); Estimated Creatinine Clearance 41.84 ml/min; Globulin 4.2 g/dL (2.2-4.2); Glucose 91 mg/dL (74-106); Lipase 10 U/L (13-75); Potassium 3.7 mmol/L (3.5-5.1); Protein, Total 7.5 g/dL (6.4-8.2); Sodium Level 137 mmol/L (136-145)
[2022-09-30] MEDS: 0.9% Normal Saline 1,000 ML 1000 ML IV (19:20)
[2022-09-30] MEDS: Ketorolac 15 MG/ML Vial IV (19:21)
[2022-09-30] MEDS: Metoclopramide 10 MG/2 ML Vial IV (19:21)
== END 2022-09-30 21:25 | disposition home or self-care (01) ==
PROVIDERS: Emergency Provider Emergency Medicine; PCP Internal Medicine; Visit Provider Emergency Medicine
DX: R10.9 Unspecified abdominal pain (principal); N18.30 Chronic kidney disease, stage 3 unspecified; I12.9 Hypertensive chronic kidney disease with stage 1 through stage 4 chronic kidney disease, or unspecified chronic kidney disease; Z90.49 Acquired absence of other specified parts of digestive tract; Z98.84 Bariatric surgery status; Z79.899 Other long term (current) drug therapy
CPT/HCPCS: 80048; 80076; 83690; 85025; 96361; 96374; 96375; 99283; J7030; A4216

== ENCOUNTER 2022-11-12 17:39 | Inpatient (IN) | payer MEDICARE, MEDICAID, SELFPAY ==
[2022-11-12 17:49] VITALS: BP 101/49; PULSE 92; RESP 18; TEMP 36.6; O2SAT 98; BMI 47.7
--- NOTE | 2022-11-12 19:23 | PCM.HP.STD ---
HPI - General General Date of Admission: 11/12/22 Date of Service: 11/12/22 Chief Complaint: Here for rehabilitation. HPI Narrative JACOBY ESCALERA, is a 57 Female who presents with followin11/10/2022 Admit to [facility]. Dr. Reyes performed left total knee arthroplasty. Postoperative course uncomplicated. 11/12/2022 Admit to TCU with debility, here for rehabilitation, strengthening, prior to discharge home alone. [facility] Medical History (Updated 11/12/22 @ 19:[address] Jude Stevens MD) ADHD Allergic rhinitis Anemia Anemia Anxiety Anxiety disorder, unspecified Arthritis Chronic diarrhea Chronic kidney disease, stage 3 Depression Difficulty balancing Easy bruising Edema Exocrine pancreatic insufficiency Fatigue Gastric reflux GERD (gastroesophageal reflux disease) Gout High cholesterol History of blood transfusion History of edema History of IBS History of kidney stones history of left foot fracture History of renal disease Hypertension Hypothyroidism Hypothyroidism (acquired) Insomnia Irritable bowel syndrome Kidney disease Knee pain Leg cramps Major depressive disorder, recurrent severe without psychotic features Migraine 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) Non-smoker Obesity Obstructive sleep apnea Osteoarthritis of right knee Post traumatic stress disorder Post-menopausal Post-surgical hypoparathyroidism Restless leg syndrome Shortness of breath on exertion Sleep apnea Stage III chronic kidney disease Ureteral calculus Vertigo Vitamin D deficiency Wears contact lenses Wears dentures Wears glasses Home Medications cyanocobalamin (vitamin B-12) 500 mcg tablet 1,000 mcg PO DAILY@0800 Supplement 09/16/17 [History Last Taken 07/15/18] atorvastatin 20 mg tablet 20 mg PO DAILY cholesterol 09/24/21 [History Last Taken 11/12/22] cholecalciferol (vitamin D3) 50 mcg (2,000 unit) capsule (Vitamin D3) 1,250 mcg PO DAILY bone 09/24/21 [History Last Taken Unknown] levothyroxine 100 mcg tablet 100 mcg PO DAILY thyroid 09/24/21 [History Last Taken 11/12/22] pantoprazole 20 mg tablet,delayed release 20 mg PO DAILY reflux 07/19/22 [History Last Taken 11/12/22] calcitriol 0.25 mcg capsule 0.5 mcg (2 x 0.25 mcg) PO BID bones #120 caps 07/20/22 [Rx Last Taken 11/12/22] calcium citrate 500 mg (2 x 250 mg calcium) PO BID bones #120 tabs 07/20/22 [Rx Last Taken 11/12/22] aripiprazole 10 mg tablet 10 mg PO DAILY DEPRESSION #30 tabs 09/07/22 [Rx Last Taken 11/12/22] bupropion HCl 300 mg 24 hr tablet, extended release 300 mg PO DAILY mood #30 tabs 09/07/22 [Rx Last Taken 11/12/22] hydroxyzine HCl 25 mg tablet 25 mg PO TID PRN anxiety #90 tabs 09/07/22 [Rx Last Taken Unknown] magnesium 200 mg tablet 250 mg PO DAILY supplement 10/19/22 [History Last Taken Unknown] potassium chloride 20 mEq oral packet 20 meq PO DAILY supplement 10/19/22 [History Last Taken 11/12/22] spironolactone 25 mg tablet 25 mg PO DAILY BP/water pill 10/19/22 [History Last Taken 11/12/22] alprazolam 0.5 mg tablet 0.5 mg PO BID PRN anxiety #60 TABLETS 11/10/22 [Rx Last Taken Unknown] aspirin 81 mg tablet,delayed release (Adult Low Dose Aspirin) 81 mg PO BID heart health 11/12/22 [History Last Taken 11/12/22 09:00] docusate sodium 100 mg capsule (Colace) 100 mg PO BID bowels 11/12/22 [History Last Taken 11/12/22 09:00] fluticasone propionate 50 mcg/actuation nasal spray,suspension (Flonase Allergy Relief) 1 spray intranasal Q12H allergies 11/12/22 [History Last Taken 11/12/22] ramelteon 8 mg tablet 8 mg PO QHS PRN sleep 11/12/22 [History Last Taken Unknown] vortioxetine 20 mg tablet 20 mg PO DAILY depression 11/12/22 [History Last Taken Unknown] Allergy/AdvReac Type Severity Reaction Status Date / Time Iodinated Contrast Media Allergy Rash Verified 10/19/22 09:35 [DYEE] propranolol Allergy unknown Verified 10/19/22 09:35 iron AdvReac Other Verified 10/19/22 09:35 morphine AdvReac Rash Verified 10/19/22 09:35 ondansetron [From Zofran] AdvReac Other Verified 10/19/22 09:35 Family History Mother Stomach cancer Anemia Arthritis MEN, type 1 Father Pneumonia Anxiety Arthritis Depression Surgical History (Updated 11/12/22 @ 19:[address] Jude Stevens MD) H/O right knee surgery History of cholecystectomy History of colonoscopy History of esophagogastroduodenoscopy (EGD) history of gastric sleeve History of hysterectomy History of parathyroidectomy history of right collar bone surgery Social History adopted: No household members: none housing: apartment current occupational status: unemployed current occupation: disability history of recent travel: No sexually active: No Smoking Status: Never smoker Electronic Cigarette Use: not used alcohol intake: current alcohol intake frequency: holidays/special occasions only details: once or twice a year substance use type: does not use, former substance user and marijuana diet: low salt well-balanced diet: about half the time caffeine: Yes eating out: 4 or more times/week during the past year weight has: increased > 10 lbs what type of physical activity do you participate in: walking frequency: 1-2 times per week seatbelt use: always do you feel safe at home: Yes ROS Constitutional Constitutional: Denies chills, fever(s) or weight gain ENT HEENT: Denies headache(s), nasal congestion or nasal discharge Cardiovascular Cardiovascular: Denies chest pain or palpitations Respiratory/Chest Respiratory/Chest: Denies cough, excessive phlegm production or shortness of breath with exertion Gastrointestinal Gastrointestinal: Denies abdominal pain, nausea or vomiting Genitourinary Genitourinary: Denies dysuria Musculoskeletal Musculoskeletal: Denies joint pain or joint swelling Integumentary Integumentary: Denies rash or wounds Neurologic Neurologic: Denies focal weakness, numbness or tingling Psychiatric Psychiatric: Denies anxiety, auditory hallucinations, depression, homicidal ideation or suicidal ideation Vital Signs Vital Signs Vital Signs: 11/12/22 17:49 11/12/22 17:49 Temperature 97.9 F Temperature Source Temporal Pulse Rate 92 92 Pulse Rhythm Regular Respiratory Rate 18 18 Respiratory Effort Normal Non-Labored Short of Breath Respiratory Depth Normal Respiratory Pattern Normal Blood Pressure 101/49 L Blood Pressure Mean 66 Blood Pressure Source Monitor Blood Pressure Position Semi-Fowlers Blood Pressure Location Right Arm Pulse Ox 98 98 Oxygen Delivery Method Room Air Room Air Weight Weight: 138.119 kg Body Mass Index (BMI) 47.7 Physical Exam Const alert General Appearance: cooperative HEENT normocephalic Eyes PERRL and EOMs intact bilaterally Neck supple, no JVD and no carotid bruits Resp normal respiratory effort, normal air movement and clear to auscultation bilaterally Cardio regular rate and regular rhythm GI normal to inspection, nondistended, normoactive bowel sounds, non-tender and non-distended Extremity normal capillary refill General Extremity: Negative for edema Skin no rashes or lesions noted General Skin Exam: no breakdown Psych affect normal Appearance: appropriate Assessment & Plan Assessment/Plan (1) Debility: (2) Status post total left knee replacement: (3) Morbid obesity: (4) Hyperlipidemia: (5) Hypothyroidism: QUALIFIERS: Hypothyroidism type: acquired Qualified Code(s): E03.9 - Hypothyroidism, unspecified (6) Allergic rhinitis: (7) Hyperparathyroidism: (8) Anxiety: (9) Depression: (10) Insomnia: (11) Edema: PLAN: Plan 57 year old female with below past medical history hospitalized for left total knee replacement 11/10/[address] Reyes, admitted to TCU with debility, here for rehabilitation, strengthening, prior to discharge home alone. Debility - PT/OT. Pain - Tylenol 1000mg q8, Tramadol 50mg q6h prn pain (1-5), Oxycodone 10mg q4h prn pain (6-10). Bowel - senna/colace 2 tablets bid, Magnesium citrate 300ml daily prn. Adult immunization - Administer pneumonia vaccine, covid19 vaccine, flu vaccine as appropriate. DVT prophylaxis - Aspirin 81mg bid thru 12/10/2022. Anxiety - Xanax 0.5mg bid prn, Hydroxyzine 25mg tid prn. 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 Depression - Trintellix 20mg daily, Bupropion XL 300mg daily, Abilify 10mg daily. Hyperlipidemia - Atorvastatin 20mg qhs. Hyperparathyroidism - Calcitriol 0.5mcg bid, TUMS 500mg bid. Vitamin B12 deficiency - B12 1000mcg daily. Allergic Rhinitis - Flonase 1 spray nasal Q12H. Hypothyroidism - Levothyroxine 100mcg daily. Hypomagnesemia - Magnesium chloride 64mg daily. GERD - Pantoprazole 20mg daily. Hypokalemia - KCL 20meq daily. Edema - Aldactone 25mg daily. Vitamin D deficiency - D3 50mcg daily. Insomnia - Zolpidem 5mg qhs prn.
[2022-11-12] MEDS: oxyCODONE 5 MG Tablet 10 MG PO (20:25)
[2022-11-12] MEDS: Calcitriol 0.25 MCG Capsule 0.5 MCG PO (20:26)
[2022-11-12] MEDS: Aspirin E.C. 81 MG Tablet PO (20:27)
[2022-11-12] MEDS: Calcium Carbonate 500 MG Tablet PO (20:27)
[2022-11-12] MEDS: Senna/Docusate Sodium 1 Tablet 2 TABLET PO (20:33)
[2022-11-12] MEDS: Acetaminophen 500 MG Tablet 1000 MG PO (20:33)
[2022-11-13] MEDS: oxyCODONE 5 MG Tablet 10 MG PO ×5 (01:02→21:33)
[2022-11-13 05:30] LABS: Absolute Lymphocyte Count 2.22 X10^3/uL (0.83-4.51); Absolute Neutrophil Count 4.7 X10^3/uL (2.0-7.7); Basophil# 0.07 X10^3/uL; Basophil% 0.9 % (0-1); Eosinophil# 0.47 X10^3/uL; Eosinophils% 5.7 % (0-5); Hematocrit 36.5 % (37-47); Hemoglobin 11.3 g/dL (12.0-15.0); Lymphocyte # 2.22 X10^3/ul (0.83-4.51); Lymphocyte % 27.1 % (19-41); Mean Corpuscular Hgb 24.5 pg (27.0-32.0); Mean Platelet Vol. 10.1 fl (6.2-12.0); Monocyte# 0.73 X10^3/uL; Monocyte% 8.9 % (0-10); NRBC Flagged by Analyzer 0 % (0-5); Neutrophil # 4.67 X10^3/uL (2.7-7.7); Neutrophil % 56.9 % (47-70); Platelet Count 311 K/mm3 (150-450); RBC Distribution Width CV 16.3 % (11.6-14.6); RBC Distribution Width SD 46.5 fl (35.1-43.9); Red Blood Count 4.62 M/mm3 (4.2-5.4); White Blood Count 8.2 K/mm3 (4.4-11.0)
[2022-11-13] MEDS: Acetaminophen 500 MG Tablet 1000 MG PO ×3 (05:49→21:39)
[2022-11-13] MEDS: Fluticasone 0.05% 1 SPRAY NASAL.SRY NASAL ×2 (05:50→17:16)
[2022-11-13 06:27] LABS: Anion Gap 8 (5-15); BUN 17 mg/dL (7-18); BUN/Creat Ratio 10.5 RATIO (10-20); Calcium,Total 6.1 mg/dL (8.5-10.1); Chloride 101 mmol/L (98-107); Creatinine, Serum 1.62 mg/dL (0.55-1.02); EST Glomerular Filtration Rate 35 mL/min (>60); Est Glom Filt Rate - Afr Amer 42 mL/min (>60); Estimated Creatinine Clearance 37.71 ml/min; Glucose 80 mg/dL (74-106); Potassium 3.6 mmol/L (3.5-5.1); Sodium Level 136 mmol/L (136-145)
--- NOTE | 2022-11-13 07:01 | NURSING ---
Written communication left for Dr. Stevens review this AM regarding Calcium level 6.1, last calcium level 6.6 on 11/11/22, DX: hypoparathyroid
[2022-11-13] MEDS: Calcium Carbonate 500 MG Tablet 1000 MG PO ×2 (08:35→17:16)
[2022-11-13] MEDS: Cyanocobalamin 500 MCG Tablet 1000 MCG PO (08:36)
[2022-11-13] MEDS: Spironolactone 25 MG Tablet PO (10:09)
[2022-11-13] MEDS: Levothyroxine 100 MCG Tablet PO (10:09)
[2022-11-13] MEDS: Potassium Chloride Oral Tablet 20 MEQ PO (10:09)
[2022-11-13] MEDS: ARIPiprazole 10 MG Tablet PO (10:09)
[2022-11-13] MEDS: Senna/Docusate Sodium 1 Tablet 2 TABLET PO ×2 (10:09→21:35)
[2022-11-13] MEDS: buPROPion (XL) 300 MG TABLET.XL PO (10:09)
[2022-11-13] MEDS: Atorvastatin Calcium 20 MG Tablet PO (10:09)
[2022-11-13] MEDS: Magnesium Chloride 64 MG Delay Rel.Tablet PO (10:09)
[2022-11-13] MEDS: Aspirin E.C. 81 MG Tablet PO ×2 (10:09→21:35)
[2022-11-13] MEDS: Pantoprazole Sodium 20 MG Tablet PO (10:10)
[2022-11-13] MEDS: Cholecalciferol (VIT D3) 25 MCG TABLET (1,000 UNITS) 50 MCG PO (10:11)
[2022-11-13] MEDS: VORTIOXETINE HYDROBROMIDE 20 MG TABLET PO (10:20)
[2022-11-13] MEDS: Calcitriol 0.25 MCG Capsule 0.75 MCG PO ×2 (10:26→21:35)
[2022-11-13] MEDS: Tuberculin,Purif.prot.deriv. 50 TU/ML Vial 0.1 ML ID (10:27)
--- NOTE | 2022-11-13 13:40 | NURSING ---
Urologist Physician Note; Activity Asst: Mark Daley is independent in her choice of daily activities. She watches tv, reads, works on word search and uses her smartphone for talking, texting and internet. She welcomes visits from the industrial/organizational psychologist and therapy dog when available. She prefers to stay in her room at this time due to her disability and health. Staff will continue to offer group activities and respect her right to say no.
[2022-11-13 13:55] VITALS: BP 109/52; PULSE 95; RESP 17; TEMP 36.5; O2SAT 95
--- NOTE | 2022-11-13 15:30 | CASEMGMT ---
Social Work Met with patient to complete initial assessment. Introduced self and role. Verified contacts. Educated to [facility] insurance with [employer] 11/18 and continued stay is not guaranteed with each review. Discussed code status. Pt confirms full code. Pt's goal is to return home alone at [facility]. SW will continue to follow for DC planning. Serina Long ,NATE WESTBROOKW
--- NOTE | 2022-11-13 16:10 | CHAPLAIN ---
Type of Pastoral Visit _x__ Initial Visit ___ Follow-up Visit ___ On-call Visit ___ General Patient Visit ___ Spiritual Assessment ___ Family Conference ___ Bereavement ___ Rapid Response ___ Code Blue ___ Other (describe below) Pastoral Care Referral From _x__ Patient ___ Family ___ Nurse ___ Physician ___ Analytical Lab Analyst ___ Home Health Care Worker ___ Other (describe below) Sacrament/Intervention _x__ Active listening ___ Anointing ___ Pentecostal ___ Bereavement ___ Communion ___ Shara exploration ___ ___ Life review _x__ Prayer ___ Reconciliation ___ Sacrament of Sick _x__ Supportive presence ___ Wedding ___ Other (describe below) Pastoral Comments
[2022-11-13 20:46] VITALS: PULSE 77; RESP 16; O2SAT 98
--- NOTE | 2022-11-13 22:44 | NURSING ---
Mag citrate offered as ordered to promote bowel movement, declines at this time despite education, states Maybe tomorrow, I want to sleep tonight.
[2022-11-14] MEDS: oxyCODONE 5 MG Tablet 10 MG PO ×4 (02:03→20:17)
[2022-11-14] MEDS: Fluticasone 0.05% 1 SPRAY NASAL.SRY NASAL ×2 (05:26→17:34)
[2022-11-14] MEDS: Acetaminophen 500 MG Tablet 1000 MG PO ×3 (05:29→21:45)
[2022-11-14 05:35] VITALS: PULSE 93; RESP 14; O2SAT 95
[2022-11-14 08:40] LABS: Anion Gap 6 (5-15); BUN 18 mg/dL (7-18); BUN/Creat Ratio 13.4 RATIO (10-20); Calcium,Total 6.2 mg/dL (8.5-10.1); Chloride 102 mmol/L (98-107); Creatinine, Serum 1.34 mg/dL (0.55-1.02); EST Glomerular Filtration Rate 43 mL/min (>60); Est Glom Filt Rate - Afr Amer 53 mL/min (>60); Estimated Creatinine Clearance 45.59 ml/min; Glucose 88 mg/dL (74-106); Potassium 3.5 mmol/L (3.5-5.1); Sodium Level 134 mmol/L (136-145)
[2022-11-14] MEDS: Cyanocobalamin 500 MCG Tablet 1000 MCG PO (09:31)
[2022-11-14] MEDS: Calcium Carbonate 500 MG Tablet 1000 MG PO ×2 (09:31→17:35)
[2022-11-14] MEDS: Atorvastatin Calcium 20 MG Tablet PO (09:32)
[2022-11-14] MEDS: Spironolactone 25 MG Tablet PO (09:32)
[2022-11-14] MEDS: Aspirin E.C. 81 MG Tablet PO ×2 (09:32→21:45)
[2022-11-14] MEDS: ARIPiprazole 10 MG Tablet PO (09:32)
[2022-11-14] MEDS: Potassium Chloride Oral Tablet 20 MEQ PO (09:32)
[2022-11-14] MEDS: Calcitriol 0.25 MCG Capsule 0.75 MCG PO ×2 (09:33→21:45)
[2022-11-14] MEDS: Senna/Docusate Sodium 1 Tablet 2 TABLET PO (09:33)
[2022-11-14] MEDS: Magnesium Chloride 64 MG Delay Rel.Tablet PO (09:33)
[2022-11-14] MEDS: Pantoprazole Sodium 20 MG Tablet PO (09:33)
[2022-11-14] MEDS: Levothyroxine 100 MCG Tablet PO (09:34)
[2022-11-14] MEDS: VORTIOXETINE HYDROBROMIDE 20 MG TABLET PO (09:34)
[2022-11-14] MEDS: Cholecalciferol (VIT D3) 25 MCG TABLET (1,000 UNITS) 50 MCG PO (09:35)
[2022-11-14] MEDS: buPROPion (XL) 300 MG TABLET.XL PO (09:35)
[2022-11-14] MEDS: Magnesium Citrate 300 ML PO (09:38)
[2022-11-14] MEDS: ALPRAZolam 0.5 MG Tablet PO (13:10)
[2022-11-14 14:43] VITALS: BP 100/71; PULSE 94; RESP 16; TEMP 36.2; O2SAT 100
[2022-11-15] MEDS: oxyCODONE 5 MG Tablet 10 MG PO ×5 (02:41→22:44)
[2022-11-15] MEDS: Fluticasone 0.05% 1 SPRAY NASAL.SRY NASAL ×2 (06:03→18:02)
[2022-11-15] MEDS: Acetaminophen 500 MG Tablet 1000 MG PO ×3 (06:03→20:38)
[2022-11-15] MEDS: Calcium Carbonate 500 MG Tablet 1000 MG PO ×2 (07:45→18:01)
[2022-11-15] MEDS: Spironolactone 25 MG Tablet PO (07:49)
[2022-11-15] MEDS: Pantoprazole Sodium 20 MG Tablet PO (07:49)
[2022-11-15] MEDS: Aspirin E.C. 81 MG Tablet PO ×2 (07:49→20:36)
[2022-11-15] MEDS: Magnesium Chloride 64 MG Delay Rel.Tablet PO (07:49)
[2022-11-15] MEDS: Atorvastatin Calcium 20 MG Tablet PO (07:49)
[2022-11-15] MEDS: Potassium Chloride Oral Tablet 20 MEQ PO (07:49)
[2022-11-15] MEDS: ARIPiprazole 10 MG Tablet PO (07:50)
[2022-11-15] MEDS: Cyanocobalamin 500 MCG Tablet 1000 MCG PO (07:50)
[2022-11-15] MEDS: Calcitriol 0.25 MCG Capsule 0.75 MCG PO ×2 (07:51→20:37)
[2022-11-15 10:00] VITALS: PULSE 86; RESP 18; O2SAT 96
[2022-11-15] MEDS: buPROPion (XL) 300 MG TABLET.XL PO (10:31)
[2022-11-15] MEDS: Cholecalciferol (VIT D3) 25 MCG TABLET (1,000 UNITS) 50 MCG PO (10:31)
[2022-11-15] MEDS: VORTIOXETINE HYDROBROMIDE 20 MG TABLET PO (10:31)
[2022-11-15] MEDS: Levothyroxine 100 MCG Tablet PO (10:31)
[2022-11-15 13:42] VITALS: BP 131/77; PULSE 85; RESP 18; TEMP 36.6; O2SAT 95
--- NOTE | 2022-11-16 00:32 | NURSING ---
Mepiplex on the left knee removed due to redness, once removed redness went away from where adhesive was on touching skin.
[2022-11-16] MEDS: oxyCODONE 5 MG Tablet 10 MG PO ×5 (03:11→23:09)
[2022-11-16] MEDS: hydrOXYzine PAM 25 MG Capsule PO (03:12)
[2022-11-16] MEDS: Fluticasone 0.05% 1 SPRAY NASAL.SRY NASAL ×2 (05:00→18:20)
[2022-11-16] MEDS: Acetaminophen 500 MG Tablet 1000 MG PO ×3 (05:00→21:56)
[2022-11-16] MEDS: Calcium Carbonate 500 MG Tablet 1000 MG PO ×2 (08:25→18:20)
[2022-11-16] MEDS: Cyanocobalamin 500 MCG Tablet 1000 MCG PO (08:25)
[2022-11-16] MEDS: Potassium Chloride Oral Tablet 20 MEQ PO (08:26)
[2022-11-16] MEDS: Aspirin E.C. 81 MG Tablet PO ×2 (08:26→21:56)
[2022-11-16] MEDS: Spironolactone 25 MG Tablet PO (08:26)
[2022-11-16] MEDS: ARIPiprazole 10 MG Tablet PO (08:26)
[2022-11-16] MEDS: Atorvastatin Calcium 20 MG Tablet PO (08:27)
[2022-11-16] MEDS: Pantoprazole Sodium 20 MG Tablet PO (08:27)
[2022-11-16] MEDS: Calcitriol 0.25 MCG Capsule 0.75 MCG PO ×2 (08:27→21:56)
[2022-11-16] MEDS: Magnesium Chloride 64 MG Delay Rel.Tablet PO (08:27)
[2022-11-16] MEDS: buPROPion (XL) 300 MG TABLET.XL PO (08:28)
[2022-11-16] MEDS: Levothyroxine 100 MCG Tablet PO (08:28)
[2022-11-16] MEDS: VORTIOXETINE HYDROBROMIDE 20 MG TABLET PO (08:28)
[2022-11-16] MEDS: Cholecalciferol (VIT D3) 25 MCG TABLET (1,000 UNITS) 50 MCG PO (08:28)
[2022-11-16 11:29] VITALS: BP 129/81; PULSE 95; RESP 16; TEMP 36.2; O2SAT 95
[2022-11-16] MEDS: Senna/Docusate Sodium 1 Tablet 2 TABLET PO (21:56)
[2022-11-16] MEDS: ALPRAZolam 0.5 MG Tablet PO (23:36)
[2022-11-17] MEDS: Acetaminophen 500 MG Tablet 1000 MG PO ×3 (04:55→23:19)
[2022-11-17] MEDS: oxyCODONE 5 MG Tablet 10 MG PO ×4 (04:55→23:16)
[2022-11-17] MEDS: Fluticasone 0.05% 1 SPRAY NASAL.SRY NASAL ×2 (04:56→17:43)
[2022-11-17] MEDS: Calcium Carbonate 500 MG Tablet 1000 MG PO ×2 (08:53→17:44)
[2022-11-17] MEDS: Atorvastatin Calcium 20 MG Tablet PO (08:55)
[2022-11-17] MEDS: Magnesium Chloride 64 MG Delay Rel.Tablet PO (08:55)
[2022-11-17] MEDS: Spironolactone 25 MG Tablet PO (08:55)
[2022-11-17] MEDS: buPROPion (XL) 300 MG TABLET.XL PO (08:55)
[2022-11-17] MEDS: Cholecalciferol (VIT D3) 25 MCG TABLET (1,000 UNITS) 50 MCG PO (08:56)
[2022-11-17] MEDS: Potassium Chloride Oral Tablet 20 MEQ PO (08:56)
[2022-11-17] MEDS: Cyanocobalamin 500 MCG Tablet 1000 MCG PO (08:56)
[2022-11-17] MEDS: Levothyroxine 100 MCG Tablet PO (08:56)
[2022-11-17] MEDS: Calcitriol 0.25 MCG Capsule 0.75 MCG PO ×2 (08:57→23:16)
[2022-11-17] MEDS: Pantoprazole Sodium 20 MG Tablet PO (08:57)
[2022-11-17] MEDS: Aspirin E.C. 81 MG Tablet PO ×2 (08:58→23:18)
[2022-11-17] MEDS: VORTIOXETINE HYDROBROMIDE 20 MG TABLET PO (08:59)
[2022-11-17] MEDS: ARIPiprazole 10 MG Tablet PO (09:03)
[2022-11-17] MEDS: ALPRAZolam 0.5 MG Tablet PO ×2 (09:08→23:29)
[2022-11-17 09:09] VITALS: BP 137/78; PULSE 88
--- NOTE | 2022-11-17 09:18 | NURSING ---
Updated patient that new covid booster is coming out and pharmacy should have it next week. She would like to hold off on current booster and receive new one when available.
--- NOTE | 2022-11-17 13:14 | PHA.CONS_ITS ---
Documented by User: Mak Glaser 11/17/22 13:59 TCU RX Drug Regimen Review Subjective/Objective Subjective/Objective: Subjective: 57 year old female with below past medical history hospitalized for left total knee replacement 11/10/[address] Reyes, admitted to TCU with debility, here for rehabilitation, strengthening, prior to discharge home alone. Objective: Allergies Iodinated Contrast Media [DYEE] Allergy (Verified 10/19/22 09:35) Rash propranolol Allergy (Verified 10/19/22 09:35) unknown iron Adverse Reaction (Verified 10/19/22 09:35) Other ABD PAIN morphine Adverse Reaction (Verified 10/19/22 09:35) Rash ondansetron [From Zofran] Adverse Reaction (Verified 10/19/22 09:35) Other headache Current Medications Generic Name Dose Route Start Last Admin Trade Name Freq PRN Reason Stop Dose Admin Acetaminophen 1,000 mg 11/12/22 22:00 11/17/22 04:55 Acetaminophen 500 Mg Tablet PO 1,000 mg Q8 MARZENA Administration Alprazolam 0.5 mg 11/12/22 18:07 11/17/22 09:08 Alprazolam 0.5 Mg Tablet PO 0.5 mg BID PRN Administration anxiety Aripiprazole 10 mg 11/13/22 10:00 11/17/22 09:03 Aripiprazole 10 Mg Tablet PO 10 mg DAILY MARZENA Administration Aspirin 81 mg 11/12/22 22:00 11/17/22 08:58 Aspirin E.C. 81 Mg Tablet PO 12/10/22 23:59 81 mg BID MARZENA Administration Atorvastatin Calcium 20 mg 11/13/22 10:00 11/17/22 08:55 Atorvastatin Calcium 20 Mg Tablet PO 20 mg DAILY MARZENA Administration Bupropion HCl 300 mg 11/13/22 10:00 11/17/22 08:55 Bupropion (Xl) 300 Mg Tablet.Xl PO 300 mg DAILY MARZENA Administration Calcitriol 0.75 mcg 11/13/22 10:00 11/17/22 08:57 Calcitriol 0.25 Mcg Capsule PO 0.75 mcg BID MARZENA Administration Calcium Carbonate 1,000 mg 11/13/22 08:00 11/17/22 08:53 Calcium Carbonate 500 Mg Tablet PO 1,000 mg BIDCM MARZENA Administration Cholecalciferol 50 mcg 11/13/22 10:00 11/17/22 08:56 Cholecalciferol (Vit D3) 25 Mcg Tablet (1,000 Units) PO 50 mcg DAILY MARZENA Administration Cyanocobalamin 1,000 mcg 11/13/22 08:00 11/17/22 08:56 Cyanocobalamin 500 Mcg Tablet PO 1,000 mcg DAILY@0800 MARZENA Administration Fluticasone Propionate 1 spray 11/12/22 18:10 11/17/22 04:56 Fluticasone 0.05% 1 [place] Nasal.Sry NASAL 1 applic Q12H MARZENA Administration Hydroxyzine Pamoate 25 mg 11/12/22 18:07 11/16/22 03:12 Hydroxyzine Kamla 25 Mg Capsule PO 25 mg TID PRN Administration anxiety Sodium Chloride 250 mls @ 15 mls/hr 11/12/22 17:59 IV .[id number] PRN Additional IVPB Infusion Sodium Chloride 250 mls @ 15 mls/hr 11/12/22 17:59 IV .[id number] PRN Saline Flush Levothyroxine Sodium 100 mcg 11/13/22 10:00 11/17/22 08:56 Levothyroxine 100 Mcg Tablet PO 100 mcg DAILY MARZENA Administration Magnesium Chloride 64 mg 11/13/22 10:00 11/17/22 08:55 Magnesium Chloride 64 Mg Delay Rel.Tablet PO 64 mg DAILY MARZENA Administration Magnesium Citrate 300 ml 11/12/22 19:39 11/14/22 09:38 Magnesium Citrate 300 Ml PO 300 ml DAILY PRN Administration CONSTIPATION Oxycodone HCl 10 mg 11/12/22 18:39 11/17/22 10:18 Oxycodone 5 Mg Tablet PO 10 mg Q4H PRN PRN Administration Pain Score 6-10 Pantoprazole Sodium 20 mg 11/13/22 10:00 11/17/22 08:57 Pantoprazole Sodium 20 Mg Tablet PO 20 mg DAILY MARZENA Administration Potassium Chloride 20 meq 11/13/22 10:00 11/17/22 08:56 Potassium Chloride Oral Tablet 20 Meq PO 20 meq DAILY MARZENA Administration Promethazine HCl 25 mg 11/13/22 07:59 Promethazine 25 Mg Tablet PO Q4H PRN PRN NAUSEA/VOMITING Senna/Docusate Sodium 2 tablet 11/12/22 22:00 11/17/22 08:52 Senna/Docusate Sodium 1 Tablet PO Not Given BID MARZENA Sodium Chloride 10 - 40 ml 11/12/22 17:59 0.9% Saline Lock 10 Ml Syringe IV UD PRN SALINE FLUSH Spironolactone 25 mg 11/13/22 10:00 11/17/22 08:55 Spironolactone 25 Mg Tablet PO 25 mg DAILY MARZENA Administration Tramadol HCl 50 mg 11/12/22 19:39 Tramadol 50 Mg Tablet PO Q6H PRN PRN Pain Score 1-5 Tuberculin PPD 0.1 ml 11/20/22 10:00 Tuberculin,Purif.Prot.Deriv. 50 Tu/Ml Vial ID 11/20/22 10:01 X1 ONE Zolpidem Tartrate 5 mg 11/12/22 19:39 Zolpidem Tartrate 5 Mg Tablet PO QHS PRN PRN INSOMNIA Problem List (Updated 11/12/22 @ 19:[address] Jude Stevens MD) Edema (Acute) Insomnia (Acute) Depression (Acute) Anxiety (Acute) Hyperparathyroidism (Acute) Allergic rhinitis (Acute) Hyperlipidemia (Acute) Morbid obesity (Acute) Status post total left knee replacement (Acute) Hypothyroidism (Chronic) Vital Signs Temp Pulse Resp BP Pulse Ox O2 Del Method 97.2 F L 88 16 137/78 H 95 Room Air 11/16/22 11:29 11/17/22 09:09 11/16/22 11:29 11/17/22 09:09 11/16/22 11:29 11/16/22 11:29 Oxygen Delivery Method Room Air Weight: 138.119 kg Body Mass Index (BMI) 47.7 Sodium 134 mmol/L (136-145) L 11/14/22 07:15 Potassium 3.5 mmol/L (3.5-5.1) 11/14/22 07:15 Chloride 102 mmol/L (98-107) 11/14/22 07:15 Carbon Dioxide 26.0 mmol/L (21.0-32.0) 11/14/22 07:15 Anion Gap 6 (5-15) 11/14/22 07:15 BUN 18 mg/dL (7-18) 11/14/22 07:15 Creatinine 1.34 mg/dL (0.55-1.02) H 11/14/22 07:15 Est GFR (MDRD) Af Amer 53 mL/min (>60) L 11/14/22 07:15 Est GFR (MDRD) Non-Af 43 mL/min (>60) L 11/14/22 07:15 BUN/Creatinine Ratio 13.4 RATIO (10-20) 11/14/22 07:15 Glucose 88 mg/dL (74-106) 11/14/22 07:15 Assessment/Plan: 1. Pain: acetaminophen 1000 mg PO Q8H, tramadol 50 mg PO Q6H PRN pain (1-5), oxycodone 10 mg PO Q4H PRN pain (6-10). Patient has used 22 doses of oxycodone 10 mg, and 0 doses of tramadol 50 mg. Please continue to monitor pain levels, for sedation/syncope/ataxia, LFTs (09/30 AST/ALT = 01/18), as well as renal function (11/14 serum creatinine 1.34, creatinine clearance ~ 46), for respiratory depression, and for constipation (last BM 11/14/22). 2. Bowel: senna/docusate 2 tablets PO BID, magnesium citrate 300 mL PO daily PRN constipation. Patient used 1 dose of magnesium citrate on 11/14, last BM was also on 11/14. Please continue to monitor for PRN usage as well as for constipation/diarrhea. 3. DVT prophylaxis after knee arthroplasty: aspirin 81 mg PO BID through 12/10/22. Please continue to monitor for s/s of DVT such as lower extremity redness/warmth/swelling as well as Hgb (11/13 = 11.3), Plt (11/13 = 311) and for s/s of bleeding as well as for s/s of GI ulcer including blood in stool and GI distress. 4. Hyperlipidemia: atorvastatin 20 mg PO QHS. Please continue to monitor LFTs (09/30 AST/ALT = 01/18), for muscle pain/rhabdo, and lipid levels (on 12/17/21 LDL = 52, cholesterol = 148, and TG = 131). 5. Hyperparathyroidism: calcitriol 0.75 mcg PO BID, calcium carbonate 1000 mg PO BIDCM. Please continue to monitor calcium level (on 11/14 = 6.2), phosphorus level (no recent level), and parathyroid level (last 0.0 on 07/30/20). 6. Vitamin B12 deficiency: cyanocobalamin 1000 mcg PO daily. Please continue to monitor B12 level (last 1899 on 12/17/21) and for s/s of B12 deficiency such as fatigue. 7. Allergic rhinitis: fluticasone 0.05% 1 spray in each nostril Q12H. Please continue to monitor for nasal congestion and abdominal pain. 8. Hypothyroidism: levothyroxine 100 mcg PO daily. Please continue to monitor TSH and T4 (02/26/22 T4 = 1.29, TSH 1.61), as well as for s/s of hypo/hyperthyroidism. 9. Hypomagnesemia: magnesium chloride 64 mg PO daily. Please continue to monitor magnesium level (on 08/16/22 magnesium = 1.5) as well as s/s of hypomagnesemia such as N/V and weakness. 10. GERD: pantoprazole 20 mg PO daily. Please continue to monitor for diarrhea/clostridium difficile infection, and calcium levels (on 11/14 = 6.2), as well as for GI distress and s/s of GERD. 11. Hypokalemia: potassium chloride 20 mEq daily. Please continue to monitor potassium levels (last potassium level on 11/14 = 3.5), and for GI distress. 12. Edema: spironolactone 25 mg PO daily. Please continue to monitor edema, potassium levels (last potassium level on 11/14 = 3.5), blood pressure (recently 100-137/49-81), renal function (11/14 serum creatinine 1.34, creatinine clearance ~ 46), sodium levels (last sodium level on 11/14 = 134), magnesium levels (on 08/16/22 magnesium = 1.5), and blood sugars (recent BG 80-90). 13. Vitamin D deficiency: cholecalciferol 50 mcg PO daily. Please continue to monitor vitamin D level (last vitamin D level 33.9 on 12/17/21). Assessment/Plan for indications treated with psychotropic medications: 1. Anxiety: alprazolam 0.5 mg PO BID PRN anxiety, hydroxyzine pamoate 25 mg PO TID PRN anxiety. Please see providers note regarding stable long-term use, GDR not recommended. Patient has used 3 doses of alprazolam and 1 dose of hydroxyzine to date. Please continue to monitor for anxiety levels, PRN usage, delirium, falls, cognitive impairment, and anticholinergic side effects of hydroxyzine such as dry mouth, constipation and confusion. 2. Depression: vortioxetine 20 mg PO daily, bupropion XL 300 mg PO daily, aripiprazole 10 mg PO daily. Stable long-term doses, GDR not recommended. Please continue to monitor for SI, nausea, dizziness, seizures, drowsiness, and blood pressure (recently 100-137/49-81). 3. Insomnia: zolpidem 5 mg PO QHS PRN insomnia. The patient has not used any PRN doses to this point. Please continue to monitor for PRN usage, dizziness, drowsiness, confusion and fatigue. Medical chart and medication regimen reviewed. The following medication irregularities or issues were identified: N/A Date Date of Note:: 11/17/22 Documented by User: Dr. Jude Stevens MD 11/17/22 14:15 TCU RX Drug Regimen Review Provider Comments Provider responsibility Provider Comments to Recommendations by Pharmacy: Agree
[2022-11-17 14:47] VITALS: BMI 47.2
[2022-11-17 15:51] VITALS: BP 128/82; PULSE 85; RESP 15; TEMP 36.5; O2SAT 96
--- NOTE | 2022-11-17 20:07 | NURSING ---
PT AND FAMILY NOTIFIED OF A PT TESTING POSITIVE FOR COVID ON THE FLOOR.
[2022-11-17 22:00] VITALS: PULSE 100; RESP 18; O2SAT 97
[2022-11-18] MEDS: oxyCODONE 5 MG Tablet 10 MG PO ×4 (03:20→21:22)
[2022-11-18] MEDS: Fluticasone 0.05% 1 SPRAY NASAL.SRY NASAL ×2 (06:08→17:19)
[2022-11-18] MEDS: Acetaminophen 500 MG Tablet 1000 MG PO ×3 (06:08→21:15)
[2022-11-18 07:06] VITALS: PULSE 90; RESP 16; O2SAT 98
[2022-11-18] MEDS: Spironolactone 25 MG Tablet PO (08:50)
[2022-11-18] MEDS: Calcium Carbonate 500 MG Tablet 1000 MG PO ×2 (08:50→17:19)
[2022-11-18] MEDS: Cyanocobalamin 500 MCG Tablet 1000 MCG PO (08:50)
[2022-11-18] MEDS: Aspirin E.C. 81 MG Tablet PO ×2 (08:51→21:16)
[2022-11-18] MEDS: Pantoprazole Sodium 20 MG Tablet PO (08:51)
[2022-11-18] MEDS: ARIPiprazole 10 MG Tablet PO (08:51)
[2022-11-18] MEDS: Magnesium Chloride 64 MG Delay Rel.Tablet PO (08:51)
[2022-11-18] MEDS: Potassium Chloride Oral Tablet 20 MEQ PO (08:51)
[2022-11-18] MEDS: Calcitriol 0.25 MCG Capsule 0.75 MCG PO ×2 (08:52→21:16)
[2022-11-18] MEDS: Levothyroxine 100 MCG Tablet PO (08:52)
[2022-11-18] MEDS: buPROPion (XL) 300 MG TABLET.XL PO (08:52)
[2022-11-18] MEDS: VORTIOXETINE HYDROBROMIDE 20 MG TABLET PO (08:52)
[2022-11-18] MEDS: Cholecalciferol (VIT D3) 25 MCG TABLET (1,000 UNITS) 50 MCG PO (08:53)
[2022-11-18] MEDS: Atorvastatin Calcium 20 MG Tablet PO (08:53)
[2022-11-18 08:59] VITALS: BP 139/97; PULSE 104
--- NOTE | 2022-11-18 10:09 | CASEMGMT ---
Social Work IDT met with patient for care plan meeting. Discussed patient's progress in PT/OT/SN. Educated to [facility] insurance with NRD 11/18 and continued stay is not guaranteed. Discussed pt's low motivation, staying in dark room, low appetite. Pt agrees and stated anesthesia makes me depressed. Order Processing Specialist offered start of Remeron. This worker assisted in explaining sleep and mood positive side effects. Pt agreeable to start medication if agrees. SW validated lack of interest in doing things, decline in room and change in abilities. Encouraged to allow staff to take her outside, eat in the central lounge, participate in activities, open blinds, get washed up, dressed and in the chair in the mornings. Pt agreed to all suggestions. Cautioned insurance could issue a DC date and pt does need assistance with daily tasks and pt does not have any support at home. Discussed HHC and DME needs at DC. SW to continue to follow for DC planning and support. FIDELIA presented to pt's room to help with getting dressed, etc. SW verbally updated die maker trim on encouragement with new morning routine and pt coming out of room more often. -- Insurance issued LCD 11/20, DC 11/21 shortly after POC mtg. SW spoke to pt with FIDELIA. Pt became tearful. SW provided emotional support. Educated to appeal rights and Medicaid secondary can cover SNF stay at another facility. pt stated she does not want to go anywhere else. FIDELIA offered to change course of session and trial some different tasks to determine homegoing readiness. Pt agreed. Pt finished with OT session and requested to speak to this worker. SW presented to pt's room. Pt is elected to appeal. PAM reiterated appeal process. PAM stated DC planning will still continue and offered list of skilled HHC agencies to choose from. Pt denied stating whatever takes my insurance. OT recommending extended tub bench. SW offered to refer to [facility] to see if Medicaid will cover it. Pt appreciative. PAM phoned [facility] and confirmed transfer tub bench is covered by Medicaid. Faxed referral. SW reviewed last TCU visit and pt used [facility]. PAM phoned referral to [facility] PT/OT/UGALDE. -- Pt filed appeal. . 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
[2022-11-18 14:42] VITALS: BP 125/73; PULSE 94; RESP 14; TEMP 36.6; O2SAT 98
--- NOTE | 2022-11-18 16:21 | NURSING ---
EDUCATED PT ON PAIN MEDS TODAY. PT STATED SHE UNDERSTOOD.
--- NOTE | 2022-11-18 21:17 | DS.PCM_ITS ---
Providers Date of Admission: 11/12/22 Primary Care Physician: Dr. Alondra Davies MD Reason For Visit: L TKR Diagnosis Discharge Diagnosis (1) Debility: Status: Resolved Code(s): R53.81 - Other malaise (2) Status post total left knee replacement: Status: Acute Code(s): Z96.652 - Presence of left artificial knee joint (3) Morbid obesity: Status: Acute Code(s): E66.01 - Morbid (severe) obesity due to excess calories (4) Hyperlipidemia: Status: Acute Code(s): E78.5 - Hyperlipidemia, unspecified (5) Hypothyroidism: Status: Chronic Code(s): E03.9 - Hypothyroidism, unspecified Qualifiers: Hypothyroidism type: acquired Qualified Code(s): E03.9 - Hypothyroidism, unspecified (6) Allergic rhinitis: Status: Acute Code(s): J30.9 - Allergic rhinitis, unspecified (7) Hyperparathyroidism: Status: Acute Code(s): E21.3 - Hyperparathyroidism, unspecified (8) Anxiety: Status: Acute Code(s): F41.9 - Anxiety disorder, unspecified (9) Depression: Status: Acute Code(s): F32.9 - Major depressive disorder, single episode, unspecified (10) Insomnia: Status: Acute Code(s): G47.00 - Insomnia, unspecified (11) Edema: Status: Acute Code(s): R60.9 - Edema, unspecified Plan 57 year old female with below past medical history hospitalized for left total knee replacement 11/10/[address] Reyes, admitted to TCU with debility, here for rehabilitation, strengthening, prior to discharge home alone. * Debility - PT/OT. * Pain - Tylenol 1000mg q8, Tramadol 50mg q6h prn pain (1-5), Oxycodone 10mg q4h prn pain (6-10). * Bowel - senna/colace 2 tablets bid, Magnesium citrate 300ml daily prn. * Adult immunization - Administer pneumonia vaccine, covid19 vaccine, flu vaccine as appropriate. * DVT prophylaxis - Aspirin 81mg bid thru 12/10/2022. * Anxiety - Xanax 0.5mg bid prn, Hydroxyzine 25mg tid prn. Stable chronic correction use, GDR not recommended. * Depression - Trintellix 20mg daily, Bupropion XL 300mg daily, Abilify 10mg daily. * Hyperlipidemia - Atorvastatin 20mg qhs. * Hyperparathyroidism - Calcitriol 0.5mcg bid, TUMS 500mg bid. * Vitamin B12 deficiency - B12 1000mcg daily. * Allergic Rhinitis - Flonase 1 spray nasal Q12H. * Hypothyroidism - Levothyroxine 100mcg daily. * Hypomagnesemia - Magnesium chloride 64mg daily. * GERD - Pantoprazole 20mg daily. * Hypokalemia - KCL 20meq daily. * Edema - Aldactone 25mg daily. * Vitamin D deficiency - D3 50mcg daily. * Insomnia - Zolpidem 5mg qhs prn. Medications at Discharge Home Medications cyanocobalamin (vitamin B-12) 500 mcg tablet 1,000 mcg PO DAILY@0800 Supplement 09/16/17 atorvastatin 20 mg tablet 20 mg PO DAILY cholesterol 09/24/21 cholecalciferol (vitamin D3) 50 mcg (2,000 unit) capsule (Vitamin D3) 1,250 mcg PO DAILY bone 09/24/21 levothyroxine 100 mcg tablet 100 mcg PO DAILY thyroid 09/24/21 pantoprazole 20 mg tablet,delayed release 20 mg PO DAILY reflux 07/19/22 calcitriol 0.25 mcg capsule 0.5 mcg (2 x 0.25 mcg) PO BID bones #120 caps 07/20/22 calcium citrate 500 mg (2 x 250 mg calcium) PO BID bones #120 tabs 07/20/22 aripiprazole 10 mg tablet 10 mg PO DAILY DEPRESSION #30 tabs 09/07/22 bupropion HCl 300 mg 24 hr tablet, extended release 300 mg PO DAILY mood #30 tabs 09/07/22 hydroxyzine HCl 25 mg tablet 25 mg PO TID PRN anxiety #90 tabs 09/07/22 magnesium 200 mg tablet 250 mg PO DAILY supplement 10/19/22 potassium chloride 20 mEq oral packet 20 meq PO DAILY supplement 10/19/22 spironolactone 25 mg tablet 25 mg PO DAILY BP/water pill 10/19/22 alprazolam 0.5 mg tablet 0.5 mg PO BID PRN anxiety #60 TABLETS 11/10/22 aspirin 81 mg tablet,delayed release (Adult Low Dose Aspirin) 81 mg PO BID [facility] 11/12/22 docusate sodium 100 mg capsule (Colace) 100 mg PO BID bowels 11/12/22 ramelteon 8 mg tablet 8 mg PO QHS PRN sleep 11/12/22 vortioxetine 20 mg tablet 20 mg PO DAILY depression 11/12/22 acetaminophen 500 mg tablet 1,000 mg (2 x 500 mg) PO Q8 #0 tabs 11/18/22 aspirin 81 mg tablet,delayed release 81 mg PO BID 19 days #0 tabs 11/18/22 calcitriol 0.25 mcg capsule 0.75 mcg (3 x 0.25 mcg) PO BID 30 days #180 caps 11/18/22 calcium carbonate 200 mg calcium (500 mg) chewable tablet 1,000 mg (5 x 200 mg calcium (500 mg)) PO BIDCM 30 days #300 tabs 11/18/22 mirtazapine 15 mg tablet 7.5 mg (1/2 x 15 mg) PO QHS 30 days #15 tabs 11/18/22 oxycodone 5 mg tablet 10 mg (2 x 5 mg) PO Q4H PRN PRN Pain Score 6-10 7 days #42 tabs 11/18/22 sennosides 8.6 mg-docusate sodium 50 mg tablet (Stool Softener-Stimulant Laxative) 2 tab PO BID 30 days #120 tabs 11/18/22 Hospital Course
--- NOTE | 2022-11-18 21:17 | PCM.DC.SUM ---
Providers Date of Admission: 11/12/22 Primary Care Physician: Dr. Alondra Davies MD Reason For Visit: L TKR Diagnosis Discharge Diagnosis (1) Debility: Status: Resolved Code(s): R53.81 - Other malaise (2) Status post total left knee replacement: Status: Acute Code(s): Z96.652 - Presence of left artificial knee joint (3) Morbid obesity: Status: Acute Code(s): E66.01 - Morbid (severe) obesity due to excess calories (4) Hyperlipidemia: Status: Acute Code(s): E78.5 - Hyperlipidemia, unspecified (5) Hypothyroidism: Status: Chronic Code(s): E03.9 - Hypothyroidism, unspecified Qualifiers: Hypothyroidism type: acquired Qualified Code(s): E03.9 - Hypothyroidism, unspecified (6) Allergic rhinitis: Status: Acute Code(s): J30.9 - Allergic rhinitis, unspecified (7) Hyperparathyroidism: Status: Acute Code(s): E21.3 - Hyperparathyroidism, unspecified (8) Anxiety: Status: Acute Code(s): F41.9 - Anxiety disorder, unspecified (9) Depression: Status: Acute Code(s): F32.9 - Major depressive disorder, single episode, unspecified (10) Insomnia: Status: Acute Code(s): G47.00 - Insomnia, unspecified (11) Edema: Status: Acute Code(s): R60.9 - Edema, unspecified Plan 57 year old female with below past medical history hospitalized for left total knee replacement 11/10/[address] Reyes, admitted to TCU with debility, here for rehabilitation, strengthening, prior to discharge home alone. Debility - PT/OT. Pain - Tylenol 1000mg q8, Tramadol 50mg q6h prn pain (1-5), Oxycodone 10mg q4h prn pain (6-10). Bowel - senna/colace 2 tablets bid, Magnesium citrate 300ml daily prn. Adult immunization - Administer pneumonia vaccine, covid19 vaccine, flu vaccine as appropriate. DVT prophylaxis - Aspirin 81mg bid thru 12/10/2022. Anxiety - Xanax 0.5mg bid prn, Hydroxyzine 25mg tid prn. Stable chronic nursing home use, GDR not recommended. Depression - Trintellix 20mg daily, Bupropion XL 300mg daily, Abilify 10mg daily. Hyperlipidemia - Atorvastatin 20mg qhs. Hyperparathyroidism - Calcitriol 0.5mcg bid, TUMS 500mg bid. Vitamin B12 deficiency - B12 1000mcg daily. Allergic Rhinitis - Flonase 1 spray nasal Q12H. Hypothyroidism - Levothyroxine 100mcg daily. Hypomagnesemia - Magnesium chloride 64mg daily. GERD - Pantoprazole 20mg daily. Hypokalemia - KCL 20meq daily. Edema - Aldactone 25mg daily. Vitamin D deficiency - D3 50mcg daily. Insomnia - Zolpidem 5mg qhs prn. Medications at Discharge Home Medications cyanocobalamin (vitamin B-12) 500 mcg tablet 1,000 mcg PO DAILY@0800 Supplement 09/16/17 atorvastatin 20 mg tablet 20 mg PO DAILY cholesterol 09/24/21 cholecalciferol (vitamin D3) 50 mcg (2,000 unit) capsule (Vitamin D3) 1,250 mcg PO DAILY bone 09/24/21 levothyroxine 100 mcg tablet 100 mcg PO DAILY thyroid 09/24/21 pantoprazole 20 mg tablet,delayed release 20 mg PO DAILY reflux 07/19/22 calcitriol 0.25 mcg capsule 0.5 mcg (2 x 0.25 mcg) PO BID bones #120 caps 07/20/22 calcium citrate 500 mg (2 x 250 mg calcium) PO BID bones #120 tabs 07/20/22 aripiprazole 10 mg tablet 10 mg PO DAILY DEPRESSION #30 tabs 09/07/22 bupropion HCl 300 mg 24 hr tablet, extended release 300 mg PO DAILY mood #30 tabs 09/07/22 hydroxyzine HCl 25 mg tablet 25 mg PO TID PRN anxiety #90 tabs 09/07/22 magnesium 200 mg tablet 250 mg PO DAILY supplement 10/19/22 potassium chloride 20 mEq oral packet 20 meq PO DAILY supplement 10/19/22 spironolactone 25 mg tablet 25 mg PO DAILY BP/water pill 10/19/22 alprazolam 0.5 mg tablet 0.5 mg PO BID PRN anxiety #60 TABLETS 11/10/22 aspirin 81 mg tablet,delayed release (Adult Low Dose Aspirin) 81 mg PO BID heart health 11/12/22 docusate sodium 100 mg capsule (Colace) 100 mg PO BID bowels 11/12/22 ramelteon 8 mg tablet 8 mg PO QHS PRN sleep 11/12/22 vortioxetine 20 mg tablet 20 mg PO DAILY depression 11/12/22 acetaminophen 500 mg tablet 1,000 mg (2 x 500 mg) PO Q8 #0 tabs 11/18/22 aspirin 81 mg tablet,delayed release 81 mg PO BID 19 days #0 tabs 11/18/22 calcitriol 0.25 mcg capsule 0.75 mcg (3 x 0.25 mcg) PO BID 30 days #180 caps 11/18/22 calcium carbonate 200 mg calcium (500 mg) chewable tablet 1,000 mg (5 x 200 mg calcium (500 mg)) PO BIDCM 30 days #300 tabs 11/18/22 mirtazapine 15 mg tablet 7.5 mg (1/2 x 15 mg) PO QHS 30 days #15 tabs 11/18/22 oxycodone 5 mg tablet 10 mg (2 x 5 mg) PO Q4H PRN PRN Pain Score 6-10 7 days #42 tabs 11/18/22 sennosides 8.6 mg-docusate sodium 50 mg tablet (Stool Softener-Stimulant Laxative) 2 tab PO BID 30 days #120 tabs 11/18/22 Hospital Course Operations total knee replacement (Left.) Procedures None Summary of Care Provided Minutes Spent on Discharge: 35 Hospital Course: 57 year old female with below past medical history hospitalized for left total knee replacement 11/10/[address] Reyes, admitted to TCU with debility, here for rehabilitation, strengthening, prior to discharge home alone. Calcitriol, calcium carbonate adjusted for low calcium, hyperparathyroidism. Mirtazapine 7.5mg qhs added for resistant depression/insomnia/appetite loss. Discharge home alone 11/21/2022, [facility] PT/OT/UGALDE, transfer tub bench. Physical Exam Const alert General Appearance: cooperative HEENT normocephalic Eyes PERRL and EOMs intact bilaterally Neck supple, no JVD and no carotid bruits Resp normal respiratory effort, normal air movement and clear to auscultation bilaterally Cardio regular rate and regular rhythm GI normal to inspection, nondistended, normoactive bowel sounds, non-tender and non-distended Extremity normal capillary refill General Extremity: Negative for edema Skin no rashes or lesions noted General Skin Exam: no breakdown Psych affect normal Appearance: appropriate Weight / BMI Weight Weight: 136.713 kg Body Mass Index (BMI) 47.2 ABG / Lab / Microbiology Data 11/13/22 05:16 11/14/22 07:15 Microbiology: Microbiology 11/17/22 22:20 Nasal Secretion SARS-CoV-2 Antigen (Rapid) - Final D/C Instructions Discharge Diet: No restrictions Discharge Activity: Return to Normal Activity, May Shower and Use Walker Weight Bearing Status: Weight bearing as tolerated Call your doctor if your incision/area has: Continuous Slow Oozing, Sudden Increased Bleeding, Increased Pain/ Swelling, Increased Redness, Foul Smelling Discharge and Swelling at the incision site Call your doctor if you observe: Fever of 101 or Higher, Inability to urinate, Inability to have a bowel movement, Shortness of breath, Dizziness, Fainting spells, Swelling in the ankles, Chest pain and Uncontrolled pain Additional Instructions: Discharge home alone 11/21/2022, [facility] PT/OT/UGAL[facility], transfer tub bench. Please Follow Up With: Colton Reyes MD When: As scheduled. Meaningful Use Info Meaningful Use Diagnoses (Choose all that apply): None applicable Discharge Plan Admission Admit Date/Time: 11/12/22 17:39 Primary Reason for Your Visit: Debility. Attending Provider: Jude Stevens Chi Primary Care Provider: Alondra Davies Instructions Additional Instructions / Restrictions: Discharge home alone 11/21/2022, [facility] PT/OT/UGALDE, transfer tub bench. Discharge Orders/Prescriptions Prescriptions: New aspirin 81 mg Tablet,Delayed Release (Dr/Ec) 81 mg PO BID 19 Days Qty: 0 0RF calcium carbonate 200 mg calcium (500 mg) Tablet,Chewable 1,000 mg PO BIDCM 30 Days Qty: 300 0RF calcitriol 0.25 mcg Capsule 0.75 mcg PO BID 30 Days Qty: 180 0RF acetaminophen 500 mg Tablet 1,000 mg PO Q8 Qty: 0 0RF sennosides-docusate sodium [Stool Softener-Stimulant Laxat] 8.6-50 mg Tablet 2 tab PO BID 30 Days Qty: 120 0RF mirtazapine 15 mg Tablet 7.5 mg PO QHS 30 Days Qty: 15 0RF oxycodone 5 mg Tablet 10 mg PO Q4H PRN PRN (Reason: Pain Score 6-10) 7 Days Qty: 42 0RF Continued hydroxyzine HCl 25 mg tablet 25 mg PO TID PRN (Reason: anxiety) Qty: 90 2RF aripiprazole 10 mg tablet 10 mg PO DAILY Qty: 30 2RF bupropion HCl 300 mg tablet extended release 24 hr 300 mg PO DAILY Qty: 30 2RF magnesium 200 mg tablet 250 mg PO DAILY spironolactone 25 mg tablet 25 mg PO DAILY cyanocobalamin (vitamin B-12) 500 MCG tablet 1,000 mcg PO DAILY@0800 atorvastatin 20 mg Tablet 20 mg PO DAILY levothyroxine 100 mcg Tablet 100 mcg PO DAILY cholecalciferol (vitamin D3) [Vitamin D3] 50 mcg (2,000 unit) Capsule 1,250 mcg PO DAILY pantoprazole 20 mg tablet,delayed release (DR/EC) 20 mg PO DAILY potassium chloride 20 mEq packet 20 meq PO DAILY ramelteon 8 mg tablet 8 mg PO QHS PRN (Reason: sleep) Rx Instructions: ok for pt to use own home medication, will send for verification vortioxetine 20 mg tablet 20 mg PO DAILY Rx Instructions: pt ok to use own supply from home alprazolam 0.5 mg tablet 0.5 mg PO BID PRN (Reason: anxiety) Qty: 60 1RF Discontinued fluticasone propionate [Flonase Allergy Relief] 50 mcg/actuation spray,suspension 1 spray intranasal Q12H Rx Instructions: administer into each nostril No Action calcium citrate 250 mg calcium tablet 500 mg PO BID Qty: 120 0RF calcitriol 0.25 mcg capsule 0.5 mcg PO BID Qty: 120 0RF aspirin [Adult Low Dose Aspirin] 81 mg tablet,delayed release (DR/EC) 81 mg PO BID docusate sodium [Colace] 100 mg capsule 100 mg PO BID Referrals / Follow Up: Alondra Davies MD [Primary Care Provider] - Disposition Disposition (needs filled in before D/C Order can be placed): Home Health Service
[2022-11-18] MEDS: Mirtazapine 15 MG Tablet 7.5 MG PO (21:20)
[2022-11-18] MEDS: ALPRAZolam 0.5 MG Tablet PO (21:21)
[2022-11-19] MEDS: Acetaminophen 500 MG Tablet 1000 MG PO ×3 (05:50→21:25)
[2022-11-19] MEDS: Fluticasone 0.05% 1 SPRAY NASAL.SRY NASAL ×2 (05:51→17:48)
[2022-11-19] MEDS: oxyCODONE 5 MG Tablet 10 MG PO ×5 (05:54→21:51)
[2022-11-19] MEDS: Cyanocobalamin 500 MCG Tablet 1000 MCG PO (08:22)
[2022-11-19] MEDS: Calcium Carbonate 500 MG Tablet 1000 MG PO ×2 (08:22→17:48)
[2022-11-19] MEDS: Calcitriol 0.25 MCG Capsule 0.75 MCG PO ×2 (09:50→21:26)
[2022-11-19] MEDS: Spironolactone 25 MG Tablet PO (09:50)
[2022-11-19] MEDS: buPROPion (XL) 300 MG TABLET.XL PO (09:51)
[2022-11-19] MEDS: Aspirin E.C. 81 MG Tablet PO ×2 (09:51→21:26)
[2022-11-19] MEDS: Pantoprazole Sodium 20 MG Tablet PO (09:51)
[2022-11-19] MEDS: Potassium Chloride Oral Tablet 20 MEQ PO (09:51)
[2022-11-19] MEDS: Magnesium Chloride 64 MG Delay Rel.Tablet PO (09:51)
[2022-11-19] MEDS: Levothyroxine 100 MCG Tablet PO (09:51)
[2022-11-19] MEDS: Cholecalciferol (VIT D3) 25 MCG TABLET (1,000 UNITS) 50 MCG PO (09:51)
[2022-11-19] MEDS: ARIPiprazole 10 MG Tablet PO (09:51)
[2022-11-19] MEDS: Atorvastatin Calcium 20 MG Tablet PO (09:51)
[2022-11-19] MEDS: VORTIOXETINE HYDROBROMIDE 20 MG TABLET PO (09:52)
[2022-11-19 15:19] VITALS: BP 107/70; PULSE 95; RESP 17; TEMP 36.3; O2SAT 91
--- NOTE | 2022-11-19 15:21 | CHAPLAIN ---
Type of Pastoral Visit ___ Initial Visit _x__ Follow-up Visit ___ On-call Visit ___ General Patient Visit ___ Spiritual Assessment ___ Family Conference ___ Bereavement ___ Rapid Response ___ Code Blue ___ Other (describe below) Pastoral Care Referral From _x__ Patient ___ Family ___ Nurse ___ Physician ___ Lay Out Worker ___ Septic Tank Installer ___ Other (describe below) Sacrament/Intervention _x__ Active listening ___ Anointing ___ Lutheran ___ Bereavement ___ Communion ___ Shara exploration ___ ___ Life review _x__ Prayer ___ Reconciliation ___ Sacrament of Sick _x__ Supportive presence ___ Wedding ___ Other (describe below) Pastoral Comments patient is welcoming even though she admits that this is usually a nap time; pt talks mostly about how she might get along at home as she probably only has until Wednesday here; pt is heard about her anticipation and plans for home; pt welcomes prayer and presence for support
--- NOTE | 2022-11-19 15:52 | CASEMGMT ---
Social Work Received fax from [employer] stating pt lost her appeal. SW spoke with pt to update her. BIMS () and PHQ-9 (10/01) completed for MDS assessment. NATE hernandezW
--- NOTE | 2022-11-19 16:38 | NURSING ---
Patient updated in room and family by phone that staff members tested positive for covid.
[2022-11-19 21:26] VITALS: O2SAT 95
[2022-11-19] MEDS: Mirtazapine 15 MG Tablet 7.5 MG PO (21:27)
[2022-11-19] MEDS: ALPRAZolam 0.5 MG Tablet PO (21:53)
[2022-11-20] MEDS: Fluticasone 0.05% 1 SPRAY NASAL.SRY NASAL ×2 (05:27→17:44)
[2022-11-20] MEDS: Acetaminophen 500 MG Tablet 1000 MG PO ×3 (05:29→21:04)
[2022-11-20] MEDS: oxyCODONE 5 MG Tablet 10 MG PO ×4 (05:29→22:17)
[2022-11-20 05:46] LABS: Absolute Neutrophil Count 2.5 X10^3/uL (2.0-7.7); Basophil# 0.04 X10^3/uL; Basophil% 0.7 % (0-1); Eosinophil# 0.56 X10^3/uL; Eosinophils% 10.4 % (0-5); Hematocrit 35.5 % (37-47); Hemoglobin 10.8 g/dL (12.0-15.0); Lymphocyte % 31.6 % (19-41); Mean Corp Hgb Conc 30.4 g/dL (32-36); Mean Corpuscular Hgb 24.2 pg (27.0-32.0); Mean Corpuscular Volume 79.6 fL (81-99); Mean Platelet Vol. 9.4 fl (6.2-12.0); Monocyte# 0.56 X10^3/uL; Monocyte% 10.4 % (0-10); NRBC Flagged by Analyzer 0 % (0-5); Neutrophil # 2.49 X10^3/uL (2.7-7.7); Neutrophil % 46.3 % (47-70); Platelet Count 369 K/mm3 (150-450); RBC Distribution Width CV 16.7 % (11.6-14.6); RBC Distribution Width SD 47.5 fl (35.1-43.9); Red Blood Count 4.46 M/mm3 (4.2-5.4); White Blood Count 5.4 K/mm3 (4.4-11.0)
[2022-11-20 06:46] LABS: Anion Gap 4 (5-15); BUN 12 mg/dL (7-18); BUN/Creat Ratio 10.1 RATIO (10-20); Calcium,Total 8.6 mg/dL (8.5-10.1); Chloride 102 mmol/L (98-107); Creatinine, Serum 1.19 mg/dL (0.55-1.02); EST Glomerular Filtration Rate 50 mL/min (>60); Est Glom Filt Rate - Afr Amer 60 mL/min (>60); Estimated Creatinine Clearance 51.33 ml/min; Glucose 86 mg/dL (74-106); Potassium 4.1 mmol/L (3.5-5.1); Sodium Level 137 mmol/L (136-145)
[2022-11-20] MEDS: Cyanocobalamin 500 MCG Tablet 1000 MCG PO (08:20)
[2022-11-20] MEDS: Calcium Carbonate 500 MG Tablet 1000 MG PO ×2 (08:21→17:44)
[2022-11-20] MEDS: Aspirin E.C. 81 MG Tablet PO ×2 (08:21→21:04)
[2022-11-20] MEDS: Spironolactone 25 MG Tablet PO (08:21)
[2022-11-20] MEDS: Potassium Chloride Oral Tablet 20 MEQ PO (08:22)
[2022-11-20] MEDS: Calcitriol 0.25 MCG Capsule 0.75 MCG PO ×2 (08:22→21:04)
[2022-11-20] MEDS: Magnesium Chloride 64 MG Delay Rel.Tablet PO (08:22)
[2022-11-20] MEDS: Atorvastatin Calcium 20 MG Tablet PO (08:22)
[2022-11-20] MEDS: buPROPion (XL) 300 MG TABLET.XL PO (08:23)
[2022-11-20] MEDS: Levothyroxine 100 MCG Tablet PO (08:23)
[2022-11-20] MEDS: Pantoprazole Sodium 20 MG Tablet PO (08:23)
[2022-11-20] MEDS: Cholecalciferol (VIT D3) 25 MCG TABLET (1,000 UNITS) 50 MCG PO (08:23)
[2022-11-20] MEDS: ARIPiprazole 10 MG Tablet PO (08:24)
[2022-11-20] MEDS: VORTIOXETINE HYDROBROMIDE 20 MG TABLET PO (08:25)
--- NOTE | 2022-11-20 08:47 | NURSING ---
Assembler Note; MDS Complete
[2022-11-20] MEDS: Tuberculin,Purif.prot.deriv. 50 TU/ML Vial 0.1 ML ID (12:12)
[2022-11-20 15:15] VITALS: BP 126/66; PULSE 91; RESP 16; TEMP 36.2; O2SAT 93
--- NOTE | 2022-11-20 15:36 | NURSING ---
Updated family that staff members and patients tested covid positive.
[2022-11-20] MEDS: ALPRAZolam 0.5 MG Tablet PO (21:03)
[2022-11-20] MEDS: Mirtazapine 15 MG Tablet 7.5 MG PO (21:04)
[2022-11-20] MEDS: Senna/Docusate Sodium 1 Tablet 2 TABLET PO (21:04)
[2022-11-20] MEDS: Miconazole Nitrate 43 GM Bottle 1 APPLIC TOPICAL (21:08)
[2022-11-21] MEDS: oxyCODONE 5 MG Tablet 10 MG PO ×2 (04:06→09:37)
[2022-11-21] MEDS: Fluticasone 0.05% 1 SPRAY NASAL.SRY NASAL (05:42)
[2022-11-21] MEDS: Acetaminophen 500 MG Tablet 1000 MG PO (05:42)
[2022-11-21] MEDS: Cyanocobalamin 500 MCG Tablet 1000 MCG PO (09:37)
[2022-11-21] MEDS: Calcium Carbonate 500 MG Tablet 1000 MG PO (09:37)
[2022-11-21] MEDS: ARIPiprazole 10 MG Tablet PO (09:38)
[2022-11-21] MEDS: Aspirin E.C. 81 MG Tablet PO (09:39)
[2022-11-21] MEDS: Spironolactone 25 MG Tablet PO (09:39)
[2022-11-21] MEDS: Atorvastatin Calcium 20 MG Tablet PO (09:40)
[2022-11-21] MEDS: Potassium Chloride Oral Tablet 20 MEQ PO (09:40)
[2022-11-21] MEDS: Magnesium Chloride 64 MG Delay Rel.Tablet PO (09:41)
[2022-11-21] MEDS: Calcitriol 0.25 MCG Capsule 0.75 MCG PO (09:41)
[2022-11-21] MEDS: Pantoprazole Sodium 20 MG Tablet PO (09:41)
[2022-11-21] MEDS: Levothyroxine 100 MCG Tablet PO (09:42)
[2022-11-21] MEDS: VORTIOXETINE HYDROBROMIDE 20 MG TABLET PO (09:43)
[2022-11-21] MEDS: Cholecalciferol (VIT D3) 25 MCG TABLET (1,000 UNITS) 50 MCG PO (09:43)
[2022-11-21] MEDS: buPROPion (XL) 300 MG TABLET.XL PO (09:43)
[2022-11-21] MEDS: Miconazole Nitrate 43 GM Bottle 1 APPLIC TOPICAL (09:44)
== END 2022-11-21 11:20 | disposition home health service (06) | DRG 560 ==
PROVIDERS: Admitting Provider Family Medicine Geriatric Medicine; PCP Internal Medicine; Referring Provider Family Medicine Geriatric Medicine; Visit Provider Family Medicine Geriatric Medicine
DX: Z47.1 Aftercare following joint replacement surgery (principal); Z68.42 Body mass index [BMI] 45.0-49.9, adult; E03.9 Hypothyroidism, unspecified; N18.30 Chronic kidney disease, stage 3 unspecified; E66.01 Morbid (severe) obesity due to excess calories; E21.3 Hyperparathyroidism, unspecified; I12.9 Hypertensive chronic kidney disease with stage 1 through stage 4 chronic kidney disease, or unspecified chronic kidney disease; F32.9 Major depressive disorder, single episode, unspecified; E78.00 Pure hypercholesterolemia, unspecified; F41.9 Anxiety disorder, unspecified; E53.8 Deficiency of other specified B group vitamins; J30.9 Allergic rhinitis, unspecified; K21.9 Gastro-esophageal reflux disease without esophagitis; E55.9 Vitamin D deficiency, unspecified; E87.6 Hypokalemia; Z96.652 Presence of left artificial knee joint; Z79.899 Other long term (current) drug therapy; G47.00 Insomnia, unspecified; Z79.890 Hormone replacement therapy; Z79.82 Long term (current) use of aspirin
CPT/HCPCS: 36415; 80048; 85025; 87811; 97110; 97116; 97162; 97166; 97530; 97535; 97802

== ENCOUNTER → 2022-11-13 | Outpatient (CLI) | payer MEDICARE, MEDICAID, SELFPAY ==
--- NOTE | 2022-11-13 08:40 | VDLE_ITS ---
Reason For Study: LLE PAIN Procedure LEFT This is a venous duplex using B-mode, color CFV is compressible, spontaneous, phasic, flow and spectral Doppler. competent, and demonstrates normal Exam performed portable in patient room. augmentation. The study was technically difficult. GSV is normal. Due to obesity. FV is compressible, spontaneous, phasic, A preliminary report was called and/or faxed competent and demonstrates normal to TCU. augmentation. POP V is compressible, spontaneous, phasic, competent and demonstrates normal augmentation. T/P Trunk is compressible. PTV is compressible. LT PerV is compressible. VL/Venous Duplex US, Unilateral Interpretation Summary Deep veins of the left lower extremity are patent and compressible segmentally. There is no evidence of left lower extremity deep vein thrombosis. Valvular competence appears intac t within the proximal deep venous system on the left . The left great saphenous vein appears patent a nd compressible segmentally. Ordering Physician: uJde Stevens Chi Referring Physician: Nury Davies Performed By: Macie Brandon, RDCS, RVT
== END | disposition home or self-care (01) ==
LOC: CVS 08:40
PROVIDERS: PCP Internal Medicine; Referring Provider Family Medicine Geriatric Medicine; Visit Provider Family Medicine Geriatric Medicine
DX: M79.662 Pain in left lower leg (principal)
CPT/HCPCS: 93971

== ENCOUNTER 2023-02-06 13:31 | Emergency (ER) | payer MEDICARE, MEDICAID, SELFPAY ==
[2023-02-06 13:33] VITALS: BP 157/100; PULSE 98; RESP 16; TEMP 36.4; O2SAT 100; BMI 48.7
--- NOTE | 2023-02-06 14:42 | EDS_ITS ---
HPI <JHON Polk - Last Filed: 02/06/23 15:26> History of Present Illness Chief Complaint: Lower Extremity Injury Narrative Narrative: Patient is a 57-year-old female with history of morbid obesity, history of hypocalcemia, hyperparathyroidism who presents to the emergency department after mechanical fall. Patient states she tripped, falling to her left knee. Patient states she not twisted and fell directly onto the ground. She states she has swelling, worsening pain she is here for evaluation PFS <JHON Polk - Last Filed: 02/06/23 15:26> [facility] Medical History ADHD Allergic rhinitis Anemia Anemia Anxiety Anxiety disorder, unspecified Arthritis Chronic diarrhea Chronic kidney disease, stage 3 Depression Difficulty balancing Easy bruising Edema Exocrine pancreatic insufficiency Fatigue Gastric reflux GERD (gastroesophageal reflux disease) Gout High cholesterol History of blood transfusion History of edema History of IBS History of kidney stones history of left foot fracture History of renal disease Hypertension Hypothyroidism Hypothyroidism (acquired) Insomnia Irritable bowel syndrome Kidney disease Knee pain Leg cramps Major depressive disorder, recurrent severe without psychotic features Migraine 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) Non-smoker Obesity Obstructive sleep apnea Osteoarthritis of right knee Post traumatic stress disorder Post-menopausal Post-surgical hypoparathyroidism Restless leg syndrome Shortness of breath on exertion Sleep apnea Stage III chronic kidney disease Ureteral calculus Vertigo Vitamin D deficiency Wears contact lenses Wears dentures Wears glasses Home Medications cyanocobalamin (vitamin B-12) 500 mcg tablet 1,000 mcg PO DAILY@0800 Supplement 09/16/17 [History Last Taken 07/15/18] atorvastatin 20 mg tablet 20 mg PO DAILY cholesterol 09/24/21 [History Last Taken 11/12/22] cholecalciferol (vitamin D3) 50 mcg (2,000 unit) capsule (Vitamin D3) 1,250 mcg PO DAILY bone 09/24/21 [History Last Taken Unknown] levothyroxine 100 mcg tablet 100 mcg PO DAILY thyroid 09/24/21 [History Last Taken 11/12/22] calcium citrate 500 mg (2 x 250 mg calcium) PO BID bones #120 tabs 07/20/22 [Rx Last Taken 11/12/22] magnesium 200 mg tablet 250 mg PO DAILY supplement 10/19/22 [History Last Taken Unknown] potassium chloride 20 mEq oral packet 20 meq PO DAILY supplement 10/19/22 [History Last Taken 11/12/22] spironolactone 25 mg tablet 25 mg PO DAILY BP/water pill 10/19/22 [History Last Taken 11/12/22] aspirin 81 mg tablet,delayed release (Adult Low Dose Aspirin) 81 mg PO BID heart health 11/12/22 [History Last Taken 11/12/22 09:00] docusate sodium 100 mg capsule (Colace) 100 mg PO BID bowels 11/12/22 [History Last Taken 11/12/22 09:00] acetaminophen 500 mg tablet 1,000 mg (2 x 500 mg) PO Q8 #0 tabs 11/18/22 [Rx Last Taken Unknown] calcitriol 0.25 mcg capsule 0.75 mcg (3 x 0.25 mcg) PO BID 30 days #180 caps 11/18/22 [Rx Last Taken Unknown] calcium carbonate 200 mg calcium (500 mg) chewable tablet 1,000 mg (5 x 200 mg calcium (500 mg)) PO BIDCM 30 days #300 tabs 11/18/22 [Rx Last Taken Unknown] oxycodone 5 mg tablet 10 mg (2 x 5 mg) PO Q4H PRN PRN Pain Score 6-10 7 days #42 tabs 11/18/22 [Rx Last Taken Unknown] sennosides 8.6 mg-docusate sodium 50 mg tablet (Stool Softener-Stimulant Laxative) 2 tab PO BID 30 days #120 tabs 11/18/22 [Rx Last Taken Unknown] pantoprazole 20 mg tablet,delayed release 20 mg PO DAILY reflux #90 tabs 11/24/22 [Rx Last Taken Unknown] alprazolam 0.5 mg tablet 0.5 mg PO BID PRN anxiety #60 TABLETS 12/08/22 [Rx Last Taken Unknown] aripiprazole 10 mg tablet 10 mg PO DAILY DEPRESSION #30 tabs 12/08/22 [Rx Last Taken Unknown] bupropion HCl 300 mg 24 hr tablet, extended release 300 mg PO DAILY mood #30 tabs 12/08/22 [Rx Last Taken Unknown] hydroxyzine HCl 25 mg tablet 25 mg PO TID PRN anxiety #90 tabs 12/08/22 [Rx Last Taken Unknown] vortioxetine 20 mg tablet 20 mg PO DAILY depression #30 tabs 12/08/22 [Rx Last Taken Unknown] ibuprofen 400 mg tablet 400 mg PO Q8H 12/09/22 [History Last Taken Unknown] mirtazapine 15 mg tablet See Rx Instructions .Route .COMPLEX #15 tabs 01/11/23 [Rx Last Taken Unknown] ramelteon 8 mg tablet 8 mg PO QHS PRN sleep #30 tabs 01/26/23 [Rx Last Taken Unknown] hydrocodone-acetaminophen 5-325mg 5mg-325mg 1 tab PO Q4H PRN PRN Pain 3 days #10 TABLETS 02/06/23 [Rx Last Taken Unknown] Allergy/AdvReac Type Severity Reaction Status Date / Time Iodinated Contrast Media Allergy Rash Verified 02/06/23 13:43 [DYEE] propranolol Allergy unknown Verified 02/06/23 13:43 iron AdvReac Other Verified 02/06/23 13:43 morphine AdvReac Rash Verified 02/06/23 13:43 ondansetron [From Zofran] AdvReac Other Verified 02/06/23 13:43 Family History Mother Stomach cancer Anemia Arthritis MEN, type 1 Father Pneumonia Anxiety Arthritis Depression Surgical History H/O right knee surgery History of cholecystectomy History of colonoscopy History of esophagogastroduodenoscopy (EGD) history of gastric sleeve History of hysterectomy History of parathyroidectomy history of right collar bone surgery Social History adopted: No household members: none housing: apartment current occupational status: unemployed current occupation: disability history of recent travel: No sexually active: No Smoking Status: Never smoker Electronic Cigarette Use: not used alcohol intake: current alcohol intake frequency: holidays/special occasions only details: once or twice a year substance use type: does not use, former substance user and marijuana diet: low salt well-balanced diet: about half the time caffeine: Yes eating out: 4 or more times/week during the past year weight has: increased > 10 lbs what type of physical activity do you participate in: walking frequency: 1-2 times per week seatbelt use: always do you feel safe at home: Yes ROS <JHON Polk - Last Filed: 02/06/23 15:26> ROS ED ROS Narrative Constitutional: Negative for fever, chills, weight loss, weakness Eyes: Negative for vision loss, vision change, double vision ENT: Negative for any sore throat, ear pain, congestion Cardiovascular: Negative for any chest pain, tightness, palpitations Respiratory: Negative for any cough, sputum production, hemoptysis, dyspnea, dyspnea on exertion, orthopnea Gastrointestinal: Negative for any abdominal pain, nausea, vomiting, diarrhea, constipation, blood in stool, blood in vomit : Negative for any urinary frequency, dysuria, retention, blood in urine Muscle skeletal: Negative for any myalgias, arthralgias, neck pain, back pain. Positive for pain to the left knee, positive movement to bilateral legs secondary to hypocalcemia Neurological: Negative for any headache, syncope, numbness or tingling, dizziness Skin: Negative for any rashes, lumps, itching, abrasions, lacerations Psychiatric: Negative for any depression, anxiety, stress, suicidal ideation, homicidal ideation Hematologic: Negative for any easy bruising, excessive bruising, easy bleeding Allergies: Negative for any eczema, hives, rash EXAM <Jose D Velazquezkraigamadeo WORKFOR[employer]ING [employer]LYST-[employer] - Last Filed: 02/06/23 15:26> Physical Exam Narrative Exam Narrative: Vital signs reviewed. HEET: Head normocephalic atraumatic, TMs clear bilaterally. Posterior pharynx is clear, moist mucous membranes. Nares clear bilaterally. Neck: Supple with no lymphadenopathy or tenderness. No signs of meningismus. Cardiac: Regular rate and rhythm no murmurs gallops or rubs, equal peripheral pulses bilaterally. Respiratory: Lungs clear to auscultation bilaterally. No chest tenderness. Abdomen: Soft, nontender, nondistended. No abdominal bruit or pulsatile masses. No hepatosplenomegaly Extremities: Patient does have ecchymosis, edema to the anterior left knee, patient has pain to the patella, proximal tibia. +2 pedal pulse. Intact extensor Meggison. Patient does have e large legs. Right Neuro: Cranial nerves II through XII intact, no focal neurological deficits. Skin: Clean dry and intact with no rash, purpura, petechiae, vesicles or pustules. Backs/flank: No CVA tenderness, no midline spinal tenderness, no deformity. Psych: Normal mood and affect. No SI, HI or acute psychosis. Const Vital Signs: 02/06/23 13:33 Temperature 97.5 F L Temperature Source Temporal Pulse Rate 98 Respiratory Rate 16 Blood Pressure 157/100 H Blood Pressure Mean 119 Pulse Ox 100 Oxygen Delivery Method Room Air <Dr. Alan Weinstein DO - Last Filed: 02/06/23 15:46> Physical Exam Const Vital Signs: 02/06/23 13:33 Temperature 97.5 F L Temperature Source Temporal Pulse Rate 98 Respiratory Rate 16 Blood Pressure 157/100 H Blood Pressure Mean 119 Pulse Ox 100 Oxygen Delivery Method Room Air MDM <JHON Polk - Last Filed: 02/06/23 15:26> MDM Radiography Diagnostic Testing: Clinical Impression(s) from Imaging Studies Knee X-Ray 02/06/23 14:45 IMPRESSION: Normal x-ray examination of the knee after total knee arthroplasty. Moderate prepatellar soft tissue swelling.. Electronically Signed: Herman Oconnor MD at 15:12 EST , Treatment and Re-Evaluation :: Patient appears generally well, patient appears nontoxic, vital signs are stable. Patient presents to the emergency department with complaints of left knee pain after mechanical fall. Differential diagnosis includes left knee contusion, left knee joint effusion, patellar fracture, proximal tibial fracture. Patient be given ibuprofen here, 4 view x-ray of the left knee will be completed, this will be interpreted by the ER physician. All radiologic examinations were read, reviewed by the emergency department attending. From these reads, a plan of care will be put in place. Patient x-ray the right knee was unremarkable. No evidence of fracture, there is some soft tissue swelling. Patient will receive an Raymon wrap, she already uses a cane. She was given [place] for home. She will follow closely with her PCP,, orthopedics. She instructed to ice and elevate. All questions were answered, patient stable for discharge <Dr. Alan Weinstein, - Last Filed: 02/06/23 15:46> [facility] MDM Narrative Medical decision making narrative: I have personally performed a face to face assessment of the patient and have reviewed the DM Note. I performed a substantive portion of the visit including all aspects of the following. My garces findings include: History is [patient presents to the emergency department with complaint of injury to her left knee. Patient states that she had just come down some steps and one of her feet was in the grass and [address] and she fell injuring her left knee. She came directly on it. Patient states that about a year ago she had left knee replaced. She has been able to bear some weight since. She denies head or neck injury. Denies any other complaints other than she feels a little shaky because she thinks her calcium is a little bit low. Patient has history of multiple endocrine neoplasia and normally takes calcium at home. She took some this morning but does not think she may take in enough.] Exam is [OSBALDO MANZOMI. Cranial nerves II through XII grossly intact. TMs clear. Mucous membranes moist. No adenopathy. Cardiovascular-regular rate and rhythm without murmur or ectopy Lungs-clear to auscultation, chest wall stable without crepitus or subcu emphysema Abdomen-normoactive bowel sounds, soft, nontender, no rebound or rigidity, no peritoneal signs. Extremities-intact ?4, normal range of motion, normal pulses, atraumatic] left knee-patient has some ecchymosis and bruising to the anterior aspect of the knee. Ligamentous exam difficult secondary to pain and swelling and patient's body habitus. Neurovascularly intact distally. Medical Decison Making [ ] Other additions or changes: [None] Radiography Diagnostic Testing: Clinical Impression(s) from Imaging Studies Knee X-Ray 02/06/23 14:45 IMPRESSION: Normal x-ray examination of the knee after total knee arthroplasty. Moderate prepatellar soft tissue swelling.. Electronically Signed: Herman Oconnor MD at 15:12 EST , 4 view x-rays of the left knee obtained interpreted by myself as no evidence of fracture dislocation. Radiology in agreement felt there was moderate prepatellar soft tissue swelling. Discharge Plan Triage Chief Complaint: Lower Extremity Injury ED Midlevel Provider: Jose D Osullivan ED Provider: Alan Weinstein Dx/Rx/DC Orders Clinical Impression: Morbid obesity, Injury of knee, Joint effusion Instructions: ED Knee Effusion Prescriptions: New hydrocodone-acetaminophen 5-325 mg tablet 1 tab PO Q4H PRN PRN (Reason: Pain) 3 Days Qty: 10 0RF No Action alprazolam 0.5 mg tablet 0.5 mg PO BID PRN (Reason: anxiety) Qty: 60 1RF aripiprazole 10 mg tablet 10 mg PO DAILY Qty: 30 2RF bupropion HCl 300 mg tablet extended release 24 hr 300 mg PO DAILY Qty: 30 2RF hydroxyzine HCl 25 mg tablet 25 mg PO TID PRN (Reason: anxiety) Qty: 90 2RF vortioxetine 20 mg tablet 20 mg PO DAILY Qty: 30 2RF magnesium 200 mg tablet 250 mg PO DAILY spironolactone 25 mg tablet 25 mg PO DAILY ibuprofen 400 mg tablet 400 mg PO Q8H cyanocobalamin (vitamin B-12) 500 MCG tablet 1,000 mcg PO DAILY@0800 atorvastatin 20 mg Tablet 20 mg PO DAILY levothyroxine 100 mcg Tablet 100 mcg PO DAILY cholecalciferol (vitamin D3) [Vitamin D3] 50 mcg (2,000 unit) Capsule 1,250 mcg PO DAILY calcium citrate 250 mg calcium tablet 500 mg PO BID Qty: 120 0RF potassium chloride 20 mEq packet 20 meq PO DAILY aspirin [Adult Low Dose Aspirin] 81 mg tablet,delayed release (DR/EC) 81 mg PO BID docusate sodium [Colace] 100 mg capsule 100 mg PO BID calcium carbonate 200 mg calcium (500 mg) Tablet,Chewable 1,000 mg PO BIDCM 30 Days Qty: 300 0RF calcitriol 0.25 mcg Capsule 0.75 mcg PO BID 30 Days Qty: 180 0RF acetaminophen 500 mg Tablet 1,000 mg PO Q8 Qty: 0 0RF sennosides-docusate sodium [Stool Softener-Stimulant Laxat] 8.6-50 mg Tablet 2 tab PO BID 30 Days Qty: 120 0RF oxycodone 5 mg Tablet 10 mg PO Q4H PRN PRN (Reason: Pain Score 6-10) 7 Days Qty: 42 0RF pantoprazole 20 mg tablet,delayed release (DR/EC) 20 mg PO DAILY Qty: 90 1RF mirtazapine 15 mg tablet See Rx Instructions .ROUTE .COMPLEX Qty: 15 2RF Dose Instruction: take 1/2 tablet by mouth at bedtime Rx Instructions: take 1/2 tablet by mouth at bedtime ramelteon 8 mg tablet 8 mg PO QHS PRN (Reason: sleep) Qty: 30 2RF Primary Care Provider: Alondra Davies Referrals: Alondra Davies MD [Primary Care Provider] - Activity Restrictions/Additional Instructions: Ensure that you ice, elevate, use the Raymon bandage. Pain medicine as needed. Follow-up outpatient Disposition Disposition: Home, Self Care
[2023-02-06] MEDS: Calcium Carbonate 500 MG Tablet 1000 MG PO (14:45)
--- NOTE | 2023-02-06 14:45 | RAD_ITS ---
STUDY: X-RAY - LEFT KNEE REASON FOR EXAM: Female, 57 years old. knee TECHNIQUE: 4 view(s) of the knee. COMPARISON: 10/13/2019 FINDINGS: Normal visualized distal femur. Normal visualized proximal tibia and fibula. Normal proximal tibiofibular articulation. Status post total knee arthroplasty. The prosthesis appears located. No ostial lysis to suggest loosening.. Moderate prepatellar soft tissue swelling. RAD/Knee 4 or More Views IMPRESSION: Normal x-ray examination of the knee after total knee arthroplasty. Moderate prepatellar soft tissue swelling.. Electronically Signed: Herman Oconnor MD at 15:12 EST ,
== END 2023-02-06 15:55 | disposition home or self-care (01) ==
PROVIDERS: Emergency Provider Emergency Medicine; PCP Internal Medicine; Visit Provider Emergency Medicine
DX: S89.92XA Unspecified injury of left lower leg, initial encounter (principal); N18.30 Chronic kidney disease, stage 3 unspecified; M25.462 Effusion, left knee; G47.33 Obstructive sleep apnea (adult) (pediatric); W01.0XXA Fall on same level from slipping, tripping and stumbling without subsequent striking against object, initial encounter
CPT/HCPCS: 73564; 99282

== ENCOUNTER 2023-02-14 07:46 | Emergency (ER) | payer MEDICARE, MEDICAID, SELFPAY ==
[2023-02-14 07:47] VITALS: BP 139/88; PULSE 97; RESP 16; TEMP 35.7; O2SAT 100; BMI 46.0
--- NOTE | 2023-02-14 08:22 | VDLE_ITS ---
Reason For Study: Pain LLE RIGHT LEFT CFV is compressible, spontaneous, phasic, GSV is normal. competent and demonstrates normal CFV is compressible, spontaneous, phasic, augmentation. competent, and demonstrates normal Procedure augmentation. This is a venous duplex using B-mode, color FV is compressible, spontaneous, phasic, flow and spectral Doppler. competent and demonstrates normal Exam performed portable in ED. augmentation. A preliminary report was called and/or faxed POP V is compressible, spontaneous, phasic, to [place] ED. competent and demonstrates normal augmentation. T/P Trunk is compressible. PTV is compressible. LT PerV is compressible. Difficult to visualize proximal/mid calf veins due to patient body habitus. VL/Venous Duplex US, Unilateral Interpretation Summary There is no evidence of left lower extremity deep vein thrombosis. Left great s aphenous vein appears patent and compressible segmentally. This examination was noted to be technical ly difficult to visualize the proximal and mid left calf veins secondary to body habitus. Normal flow patterns right common femoral vein Ordering Physician: Sean Clarke Referring Physician: Alondra Davies Performed By: Sanam Desir, SAMANTHA, RVT
--- NOTE | 2023-02-14 08:23 | ED.VIS.LOWEX ---
HPI History of Present Illness Chief Complaint: Lower Extremity Injury Narrative Narrative: 57-year-old female past medical history of depression, status post total left knee replacement by Dr. Reyes at the [facility] back in November, few months ago. She was seen in the emergency department after a fall a week ago Wednesday, 7 days ago. She states she had fallen down stairs. X-ray at that time was negative. She was given a few days of an analgesic, and is supposed to see her orthopedic surgeon sometime next week but she is complaining of left knee pain increasing, continued swelling and bruising. She denies other symptoms, but states the area feels warm and swollen. She has been using a cane to ambulate. No fevers or chills, no nausea or vomiting. [facility] Medical History ADHD Allergic rhinitis Anemia Anemia Anxiety Anxiety disorder, unspecified Arthritis Chronic diarrhea Chronic kidney disease, stage 3 Depression Difficulty balancing Easy bruising Edema Exocrine pancreatic insufficiency Fatigue Gastric reflux GERD (gastroesophageal reflux disease) Gout High cholesterol History of blood transfusion History of edema History of IBS History of kidney stones history of left foot fracture History of renal disease Hypertension Hypothyroidism Hypothyroidism (acquired) Insomnia Irritable bowel syndrome Kidney disease Knee pain Leg cramps Major depressive disorder, recurrent severe without psychotic features Migraine 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) Non-smoker Obesity Obstructive sleep apnea Osteoarthritis of right knee Post traumatic stress disorder Post-menopausal Post-surgical hypoparathyroidism Restless leg syndrome Shortness of breath on exertion Sleep apnea Stage III chronic kidney disease Ureteral calculus Vertigo Vitamin D deficiency Wears contact lenses Wears dentures Wears glasses Home Medications cyanocobalamin (vitamin B-12) 500 mcg tablet 1,000 mcg PO DAILY@0800 Supplement 09/16/17 [History Last Taken 07/15/18] atorvastatin 20 mg tablet 20 mg PO DAILY cholesterol 09/24/21 [History Last Taken 11/12/22] cholecalciferol (vitamin D3) 50 mcg (2,000 unit) capsule (Vitamin D3) 1,250 mcg PO DAILY bone 09/24/21 [History Last Taken Unknown] levothyroxine 100 mcg tablet 100 mcg PO DAILY thyroid 09/24/21 [History Last Taken 11/12/22] calcium citrate 500 mg (2 x 250 mg calcium) PO BID bones #120 tabs 07/20/22 [Rx Last Taken 11/12/22] magnesium 200 mg tablet 250 mg PO DAILY supplement 10/19/22 [History Last Taken Unknown] potassium chloride 20 mEq oral packet 20 meq PO DAILY supplement 10/19/22 [History Last Taken 11/12/22] spironolactone 25 mg tablet 25 mg PO DAILY BP/water pill 10/19/22 [History Last Taken 11/12/22] aspirin 81 mg tablet,delayed release (Adult Low Dose Aspirin) 81 mg PO BID heart health 11/12/22 [History Last Taken 11/12/22 09:00] docusate sodium 100 mg capsule (Colace) 100 mg PO BID bowels 11/12/22 [History Last Taken 11/12/22 09:00] acetaminophen 500 mg tablet 1,000 mg (2 x 500 mg) PO Q8 #0 tabs 11/18/22 [Rx Last Taken Unknown] calcitriol 0.25 mcg capsule 0.75 mcg (3 x 0.25 mcg) PO BID 30 days #180 caps 11/18/22 [Rx Last Taken Unknown] calcium carbonate 200 mg calcium (500 mg) chewable tablet 1,000 mg (5 x 200 mg calcium (500 mg)) PO BIDCM 30 days #300 tabs 11/18/22 [Rx Last Taken Unknown] oxycodone 5 mg tablet 10 mg (2 x 5 mg) PO Q4H PRN PRN Pain Score 6-10 7 days #42 tabs 11/18/22 [Rx Last Taken Unknown] sennosides 8.6 mg-docusate sodium 50 mg tablet (Stool Softener-Stimulant Laxative) 2 tab PO BID 30 days #120 tabs 11/18/22 [Rx Last Taken Unknown] pantoprazole 20 mg tablet,delayed release 20 mg PO DAILY reflux #90 tabs 11/24/22 [Rx Last Taken Unknown] alprazolam 0.5 mg tablet 0.5 mg PO BID PRN anxiety #60 TABLETS 12/08/22 [Rx Last Taken Unknown] aripiprazole 10 mg tablet 10 mg PO DAILY DEPRESSION #30 tabs 12/08/22 [Rx Last Taken Unknown] bupropion HCl 300 mg 24 hr tablet, extended release 300 mg PO DAILY mood #30 tabs 12/08/22 [Rx Last Taken Unknown] hydroxyzine HCl 25 mg tablet 25 mg PO TID PRN anxiety #90 tabs 12/08/22 [Rx Last Taken Unknown] vortioxetine 20 mg tablet 20 mg PO DAILY depression #30 tabs 12/08/22 [Rx Last Taken Unknown] ibuprofen 400 mg tablet 400 mg PO Q8H 12/09/22 [History Last Taken Unknown] mirtazapine 15 mg tablet See Rx Instructions .Route .COMPLEX #15 tabs 01/11/23 [Rx Last Taken Unknown] ramelteon 8 mg tablet 8 mg PO QHS PRN sleep #30 tabs 01/26/23 [Rx Last Taken Unknown] hydrocodone-acetaminophen 5-325mg 5mg-325mg 1 tab PO Q4H PRN PRN Pain 3 days #10 TABLETS 02/06/23 [Rx Last Taken Unknown] Allergy/AdvReac Type Severity Reaction Status Date / Time Iodinated Contrast Media Allergy Rash Verified 02/06/23 13:43 [DYEE] propranolol Allergy unknown Verified 02/06/23 13:43 iron AdvReac Other Verified 02/06/23 13:43 morphine AdvReac Rash Verified 02/06/23 13:43 ondansetron [From Zofran] AdvReac Other Verified 02/06/23 13:43 Family History Mother Stomach cancer Anemia Arthritis MEN, type 1 Father Pneumonia Anxiety Arthritis Depression Surgical History H/O right knee surgery History of cholecystectomy History of colonoscopy History of esophagogastroduodenoscopy (EGD) history of gastric sleeve History of hysterectomy History of parathyroidectomy history of right collar bone surgery Social History adopted: No household members: none housing: apartment current occupational status: unemployed current occupation: disability history of recent travel: No sexually active: No Smoking Status: Never smoker Electronic Cigarette Use: not used alcohol intake: current alcohol intake frequency: holidays/special occasions only details: once or twice a year substance use type: does not use, former substance user and marijuana diet: low salt well-balanced diet: about half the time caffeine: Yes eating out: 4 or more times/week during the past year weight has: increased > 10 lbs what type of physical activity do you participate in: walking frequency: 1-2 times per week seatbelt use: always do you feel safe at home: Yes ROS ROS ED ROS Narrative Constitutional: No fever, no chills. HEENT: No sore throat. No neck pain. No loss of vision. No rhinorrhea. Cardiovascular: No chest pain. No palpitations. No pedal edema. Respiratory: No cough, no shortness of breath. Abdominal: No abdominal pain. No nausea. No vomiting. Genitourinary: No dysuria. No hematuria. Musculoskeletal: No myalgias. Left knee pain, swelling, and bruising. Neurologic: No headaches. No dizziness. No lightheadedness. Skin: No rash. No change in color. Psychiatric: No depression. No anxiety. EXAM Physical Exam Narrative Exam Narrative: Afebrile. Vital signs noted. HEENT: Normocephalic. Atraumatic. PERRL, EOMI. Neck soft and supple. No point tenderness or step off. Cardiovascular: Regular rate and rhythm. No murmurs, rubs, or gallops appreciated. Respiratory: No tachypnea. Lungs clear to auscultation bilaterally. Gastrointestinal: Abdomen soft, nontender, with normoactive bowel sounds. No rebound or guarding. Neurological: Awake. Alert. Nonfocal, nonlateralizing. Skin: No rash. Normal color. No pallor. Positive bruising to left knee diffusely. Musculoskeletal: No pedal edema. Full range of motion extremities. Flexion extension left knee intact. Neurovascular intact distally with palpable dorsalis pedis pulse, left. Mild swelling patellar area. Const Vital Signs: 02/14/23 07:47 Temperature 96.2 F L Temperature Source Temporal Pulse Rate 97 Respiratory Rate 16 Blood Pressure 139/88 H Blood Pressure Mean 105 Pulse Ox 100 Oxygen Delivery Method Room Air MDM MDM MDM Narrative Medical decision making narrative: I reviewed the patient's prior records. She had negative x-ray at that time. I have low suspicion for periprostatic fracture as she has had negative x-ray. Also in the differential diagnosis would be DVT, however her swelling and pain is mainly in the prepatellar area where she has her knee contusion. I have low suspicion for septic arthritis as she has not had a fever and there is no surrounding erythema or break in skin. Ultrasound will be obtained. I had discussed with her the possibility of reimaging it, but I do not feel would be beneficial. Report from technologist is that she is negative for DVT. At this point in time, she has been given 1 [place] tablet here in the emergency department. I do feel that further narcotics should come from her orthopedic surgeon or primary care provider. I feel she be discharged to follow-up. Return instructions to the emergency department reviewed. Disposition is discharged home in stable condition. History & Record Review Discussion w/independent historian: Patient Additional record(s) reviewed:: Prior ED visit Discharge Plan Triage Chief Complaint: Lower Extremity Injury ED Provider: Sean Clrake Dx/Rx/DC Orders Clinical Impression: Knee pain, Contusion of knee, left Instructions: ED Contusion, Lower Extremity, ED Knee Pain of Uncertain Cause Prescriptions: No Action alprazolam 0.5 mg tablet 0.5 mg PO BID PRN (Reason: anxiety) Qty: 60 1RF aripiprazole 10 mg tablet 10 mg PO DAILY Qty: 30 2RF bupropion HCl 300 mg tablet extended release 24 hr 300 mg PO DAILY Qty: 30 2RF hydroxyzine HCl 25 mg tablet 25 mg PO TID PRN (Reason: anxiety) Qty: 90 2RF vortioxetine 20 mg tablet 20 mg PO DAILY Qty: 30 2RF magnesium 200 mg tablet 250 mg PO DAILY spironolactone 25 mg tablet 25 mg PO DAILY ibuprofen 400 mg tablet 400 mg PO Q8H cyanocobalamin (vitamin B-12) 500 MCG tablet 1,000 mcg PO DAILY@0800 atorvastatin 20 mg Tablet 20 mg PO DAILY levothyroxine 100 mcg Tablet 100 mcg PO DAILY cholecalciferol (vitamin D3) [Vitamin D3] 50 mcg (2,000 unit) Capsule 1,250 mcg PO DAILY calcium citrate 250 mg calcium tablet 500 mg PO BID Qty: 120 0RF potassium chloride 20 mEq packet 20 meq PO DAILY aspirin [Adult Low Dose Aspirin] 81 mg tablet,delayed release (DR/EC) 81 mg PO BID docusate sodium [Colace] 100 mg capsule 100 mg PO BID calcium carbonate 200 mg calcium (500 mg) Tablet,Chewable 1,000 mg PO BIDCM 30 Days Qty: 300 0RF calcitriol 0.25 mcg Capsule 0.75 mcg PO BID 30 Days Qty: 180 0RF acetaminophen 500 mg Tablet 1,000 mg PO Q8 Qty: 0 0RF sennosides-docusate sodium [Stool Softener-Stimulant Laxat] 8.6-50 mg Tablet 2 tab PO BID 30 Days Qty: 120 0RF oxycodone 5 mg Tablet 10 mg PO Q4H PRN PRN (Reason: Pain Score 6-10) 7 Days Qty: 42 0RF hydrocodone-acetaminophen 5-325 mg tablet 1 tab PO Q4H PRN PRN (Reason: Pain) 3 Days Qty: 10 0RF pantoprazole 20 mg tablet,delayed release (DR/EC) 20 mg PO DAILY Qty: 90 1RF mirtazapine 15 mg tablet See Rx Instructions .ROUTE .COMPLEX Qty: 15 2RF Dose Instruction: take 1/2 tablet by mouth at bedtime Rx Instructions: take 1/2 tablet by mouth at bedtime ramelteon 8 mg tablet 8 mg PO QHS PRN (Reason: sleep) Qty: 30 2RF Primary Care Provider: Alondra Davies Referrals: Alondra Davies MD [Primary Care Provider] - Colton Reyes MD [Non-Staff] - [facility] appointment Disposition Disposition: Home, Self Care
[2023-02-14] MEDS: HYDROcodone Bitartrate/Apap 5/325 Tablet PO (09:49)
== END 2023-02-14 12:34 | disposition home or self-care (01) ==
PROVIDERS: Emergency Provider Emergency Medicine; PCP Internal Medicine; Visit Provider Emergency Medicine
DX: S80.02XA Contusion of left knee, initial encounter (principal); N18.30 Chronic kidney disease, stage 3 unspecified; G47.33 Obstructive sleep apnea (adult) (pediatric); W19.XXXA Unspecified fall, initial encounter
CPT/HCPCS: 93971; 99282

== ENCOUNTER 2023-02-15 11:51 | Emergency (ER) | payer MEDICARE, MEDICAID, SELFPAY ==
[2023-02-15 11:53] VITALS: BP 118/90; PULSE 95; RESP 156; TEMP 36.3; O2SAT 95; BMI 45.4
--- NOTE | 2023-02-15 12:19 | EKG12_ITS ---
Test Reason : FELL Blood Pressure : / mmHG Vent. Rate : 085 BPM Atrial Rate : 085 BPM P-R Int : 186 ms QRS Dur : 102 ms QT Int : 462 ms P-R-T Axes : 023 -34 024 degrees QTc Int : 549 ms Normal sinus rhythm Left axis deviation Minimal voltage criteria for LVH, may be normal variant ( [place] product ) Cannot rule out Anterior infarct , age undetermined Prolonged QT Abnormal ECG Confirmed by NORMA COURTNEY, ROSENDO ([id number]), editor trade journal MIKE SINGER ([id number]) on 02/22/2023 6:52:54 AM Referred By: Vinicius Hernadez Confirmed By:STEFANO GREEN MD
--- NOTE | 2023-02-15 12:19 | CT_ITS ---
INDICATION: Altered mental status. EXAMINATION: CT BRAIN - CT Head or Brain W/O Contrast Injection TECHNIQUE: Multiple axial images were obtained of the head without intravenous contrast. A radiation dose optimization technique was used for this scan. IV Contrast dosage and agent: None. RADIATION DOSAGE (If Supplied By Facility): CTDIvol = ( 44.99 ) mGy, DLP = ( 762.36 ) mGycm COMPARISON: Prior study dated: 04/15/2021. FINDINGS: BRAIN PARENCHYMA: No intra- or extra-axial hemorrhage. No evidence of acute infarct. No intracranial mass or mass effect. There is preservation of the figueroa/white matter interface. Posterior fossa structures are unremarkable. CSF SPACES: Appropriate for age. No hydrocephalus. Basal cisterns are patent. CALVARIUM, SKULL BASE, PARANASAL SINUSES AND MASTOID AIR CELLS: Clear. No evidence of calvarial fracture. Right occipital scalp soft tissue hematoma. ORBITS: Both globes, extraocular muscles, optic nerves and retrobulbar fat appear unremarkable. CT/Brain/Head without Contrast IMPRESSION: 1. No acute intracranial process. 2. Right occipital scalp soft tissue hematoma. Electronically Signed: Neno Peace MD at 13:34 EST ,
--- NOTE | 2023-02-15 12:20 | EX.ED.DYSGE1 ---
HPI History of Present Illness Chief Complaint: Syncope Informant: patient and EMS Narrative Narrative: 57-year-old female presenting to the emergency room following a reported syncopal episode. 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 She states she did not feel any chest pains palpitations sweating nausea pain or any symptoms. She states she feels a little confused following the episode. She denies any current pain or injuries. She notes a history of MEN 1. She states she has no new medications. [facility] Medical History ADHD Allergic rhinitis Anemia Anemia Anxiety Anxiety disorder, unspecified Arthritis Chronic diarrhea Chronic kidney disease, stage 3 Depression Difficulty balancing Easy bruising Edema Exocrine pancreatic insufficiency Fatigue Gastric reflux GERD (gastroesophageal reflux disease) Gout High cholesterol History of blood transfusion History of edema History of IBS History of kidney stones history of left foot fracture History of renal disease Hypertension Hypothyroidism Hypothyroidism (acquired) Insomnia Irritable bowel syndrome Kidney disease Knee pain Leg cramps Major depressive disorder, recurrent severe without psychotic features Migraine 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) Non-smoker Obesity Obstructive sleep apnea Osteoarthritis of right knee Post traumatic stress disorder Post-menopausal Post-surgical hypoparathyroidism Restless leg syndrome Shortness of breath on exertion Sleep apnea Stage III chronic kidney disease Ureteral calculus Vertigo Vitamin D deficiency Wears contact lenses Wears dentures Wears glasses Home Medications cyanocobalamin (vitamin B-12) 500 mcg tablet 1,000 mcg PO DAILY@0800 Supplement 09/16/17 [History Last Taken 07/15/18] atorvastatin 20 mg tablet 20 mg PO DAILY cholesterol 09/24/21 [History Last Taken 11/12/22] cholecalciferol (vitamin D3) 50 mcg (2,000 unit) capsule (Vitamin D3) 1,250 mcg PO DAILY bone 09/24/21 [History Last Taken Unknown] levothyroxine 100 mcg tablet 100 mcg PO DAILY thyroid 09/24/21 [History Last Taken 11/12/22] calcium citrate 500 mg (2 x 250 mg calcium) PO BID bones #120 tabs 07/20/22 [Rx Last Taken 11/12/22] magnesium 200 mg tablet 250 mg PO DAILY supplement 10/19/22 [History Last Taken Unknown] potassium chloride 20 mEq oral packet 20 meq PO DAILY supplement 10/19/22 [History Last Taken 11/12/22] spironolactone 25 mg tablet 25 mg PO DAILY BP/water pill 10/19/22 [History Last Taken 11/12/22] aspirin 81 mg tablet,delayed release (Adult Low Dose Aspirin) 81 mg PO BID heart health 11/12/22 [History Last Taken 11/12/22 09:00] docusate sodium 100 mg capsule (Colace) 100 mg PO BID bowels 11/12/22 [History Last Taken 11/12/22 09:00] acetaminophen 500 mg tablet 1,000 mg (2 x 500 mg) PO Q8 #0 tabs 11/18/22 [Rx Last Taken Unknown] calcitriol 0.25 mcg capsule 0.75 mcg (3 x 0.25 mcg) PO BID 30 days #180 caps 11/18/22 [Rx Last Taken Unknown] calcium carbonate 200 mg calcium (500 mg) chewable tablet 1,000 mg (5 x 200 mg calcium (500 mg)) PO BIDCM 30 days #300 tabs 11/18/22 [Rx Last Taken Unknown] oxycodone 5 mg tablet 10 mg (2 x 5 mg) PO Q4H PRN PRN Pain Score 6-10 7 days #42 tabs 11/18/22 [Rx Last Taken Unknown] sennosides 8.6 mg-docusate sodium 50 mg tablet (Stool Softener-Stimulant Laxative) 2 tab PO BID 30 days #120 tabs 11/18/22 [Rx Last Taken Unknown] pantoprazole 20 mg tablet,delayed release 20 mg PO DAILY reflux #90 tabs 11/24/22 [Rx Last Taken Unknown] alprazolam 0.5 mg tablet 0.5 mg PO BID PRN anxiety #60 TABLETS 12/08/22 [Rx Last Taken Unknown] aripiprazole 10 mg tablet 10 mg PO DAILY DEPRESSION #30 tabs 12/08/22 [Rx Last Taken Unknown] bupropion HCl 300 mg 24 hr tablet, extended release 300 mg PO DAILY mood #30 tabs 12/08/22 [Rx Last Taken Unknown] hydroxyzine HCl 25 mg tablet 25 mg PO TID PRN anxiety #90 tabs 12/08/22 [Rx Last Taken Unknown] vortioxetine 20 mg tablet 20 mg PO DAILY depression #30 tabs 12/08/22 [Rx Last Taken Unknown] ibuprofen 400 mg tablet 400 mg PO Q8H 12/09/22 [History Last Taken Unknown] mirtazapine 15 mg tablet See Rx Instructions .Route .COMPLEX #15 tabs 01/11/23 [Rx Last Taken Unknown] ramelteon 8 mg tablet 8 mg PO QHS PRN sleep #30 tabs 01/26/23 [Rx Last Taken Unknown] hydrocodone-acetaminophen 5-325mg 5mg-325mg 1 tab PO Q4H PRN PRN Pain 3 days #10 TABLETS 02/06/23 [Rx Last Taken Unknown] potassium chloride 20 mEq tablet,extended release 40 meq (2 x 20 mEq) PO DAILY 5 days #10 tabs 02/15/23 [Rx Last Taken Unknown] Allergy/AdvReac Type Severity Reaction Status Date / Time Iodinated Contrast Media Allergy Rash Verified 02/06/23 13:43 [DYEE] propranolol Allergy unknown Verified 02/06/23 13:43 iron AdvReac Other Verified 02/06/23 13:43 morphine AdvReac Rash Verified 02/06/23 13:43 ondansetron [From Zofran] AdvReac Other Verified 02/06/23 13:43 Family History Mother Stomach cancer Anemia Arthritis MEN, type 1 Father Pneumonia Anxiety Arthritis Depression Surgical History H/O right knee surgery History of cholecystectomy History of colonoscopy History of esophagogastroduodenoscopy (EGD) history of gastric sleeve History of hysterectomy History of parathyroidectomy history of right collar bone surgery Social History adopted: No household members: none housing: apartment current occupational status: unemployed current occupation: disability history of recent travel: No sexually active: No Smoking Status: Never smoker Electronic Cigarette Use: not used alcohol intake: current alcohol intake frequency: holidays/special occasions only details: once or twice a year substance use type: does not use, former substance user and marijuana diet: low salt well-balanced diet: about half the time caffeine: Yes eating out: 4 or more times/week during the past year weight has: increased > 10 lbs what type of physical activity do you participate in: walking frequency: 1-2 times per week seatbelt use: always do you feel safe at home: Yes ROS ROS ED Constitutional Constitutional ED: Denies chills or weight loss Eyes Eyes: Denies change in vision or diplopia ENT ENT ED: Denies ear pain, rhinorrhea or sore throat Cardiovascular Cardiovascular: Reports other Details: syncope ; Denies chest pain, orthopnea, palpitations or racing heartbeat Respiratory/Chest Respiratory/Chest: Denies cough, dyspnea or orthopnea Gastrointestinal Gastrointestinal: Denies abdominal pain, diarrhea, nausea or vomiting Genitourinary Genitourinary ED: Denies dysuria, hematuria or urinary frequency Musculoskeletal Musculoskeletal: Denies arthralgias or myalgias Integumentary Denies abscess or rash Neurologic Neurologic: Denies headache(s) or weakness Psychiatric Psychiatric: Denies anxiety, depression, suicidal ideation or suicidal thoughts Endocrine Endocrinology: Denies polydipsia, polyphagia or polyuria Allergic/Immunologic Allergic/Immunologic ED: Denies mouth swelling, tongue swelling or urticaria EXAM Physical Exam Const Vital Signs: 02/15/23 11:53 02/15/23 11:55 02/15/23 15:32 Temperature 97.3 F L Temperature Source Oral Pulse Rate 95 86 Respiratory Rate 156 H 16 Respiratory Pattern Normal Blood Pressure 118/90 H 100/80 Blood Pressure Mean 99 86 Pulse Ox 95 98 Oxygen Delivery Method Room Air Room Air Positive well nourished, well developed and obese General Appearance ED: well developed Nutritional Appearance: obese HEENT Reports normocephalic, head/scalp atraumatic and moist mucous membranes Eyes PERRL and EOMs intact bilaterally Neck no lymphadenopathy, supple and no JVD Resp normal respiratory effort and clear to auscultation bilaterally Cardio regular rate, regular rhythm and no murmurs GI normal to inspection, nondistended, normoactive bowel sounds and non-tender Palpation: soft Back/Spine no CVA tenderness and normal ROM Extremity normal to inspection General Extremety ED: Negative for edema General Extremity: Negative for edema Neuro oriented x3 and CN's II-XII intact bilaterally Sensorium / Orientation: alert Motor Exam: strength 5/5 throughout Psych mental status grossly normal Mood & Affect: Negative for depressed or tearful Skin no rashes or lesions noted and no wounds MDM MDM MDM Narrative Medical decision making narrative: Hemoglobin 10.3 which is stable for her. EKG is paced this rhythm. CT of the brain demonstrates no hemorrhage or fracture but does demonstrate an occipital hematoma. Repeat examination the patient now notes that she does have some pain posteriorly and swelling. She also notes that prior to passing out she began to feel very warm and took off her jacket. Potassium returns at 2.71.8 Gglucose 137 calcium 6.5 INR is 3.37. Normal TSH at 2.69 magnesium 1 point 1:07 and 11. Patient received supplemental calcium as well as potassium. She has not had any dysrhythmias on the monitor. Think we can laced as seen calcium which she typically takes. She that she does need to be better at taking the supplementation and having her levels checked. I have asked that she follow-up later this week for repeat check. Patient to return if worsening or concerns History & Record Review Discussion w/independent historian: EMS personnel and Patient Additional record(s) reviewed:: Prior outpatient record, Prior ED visit and Prior labs Lab Data Attestation: I reviewed the patient's lab results. Labs: Laboratory Results - last 24 hr 02/15/23 02/15/23 11:40 13:29 WBC 5.7 RBC 4.16 L Hgb 10.3 L Hct 33.2 L MCV 79.8 L MCH 24.8 L MCHC 31.0 L RDW Std Deviation 48.2 H RDW Coeff of Teena 16.7 H Plt Count 482 H MPV 9.8 Immature Gran % (Auto) 0.500 Neut % (Auto) 51.6 Lymph % (Auto) 31.2 [place] % (Auto) 10.7 H Eos % (Auto) 5.1 H Baso % (Auto) 0.9 Absolute Neuts (auto) 3.0 Absolute Lymphs (auto) 1.78 Nucleated RBC % 0 Sodium 139 Potassium 2.7 L* Chloride 103 Carbon Dioxide 25.0 Anion Gap 11 BUN 15 Creatinine 1.48 H Estim Creat Clear Calc 41.27 Est GFR (MDRD) Af Amer 47 L Est GFR (MDRD) Non-Af 39 L BUN/Creatinine Ratio 10.1 Glucose 137 H Calcium 6.5 L* Ionized Calcium 3.37 L Magnesium 1.7 Troponin I High Sens 11 TSH 2.69 Radiography Diagnostic Testing: Clinical Impression(s) from Imaging Studies Brain CT 02/15/23 12:19 IMPRESSION: 1. No acute intracranial process. 2. Right occipital scalp soft tissue hematoma. Electronically Signed: Neno Peace MD at 13:34 EST , Chest X-Ray 02/15/23 13:00 IMPRESSION: No radiographic evidence of acute cardiopulmonary disease. Electronically Signed: Neno Peace MD at 13:34 EST , EKG Initial EKG: Attestation: I personally reviewed and interpreted this EKG as follows: Comments: Normal sinus rhythm with ventricular rate of 85 bpm Discharge Plan Triage Chief Complaint: Syncope ED Provider: Vinicius Hernadez Dx/Rx/DC Orders Clinical Impression: Syncope, Hypocalcemia, Multiple endocrine neoplasia type I, Acute hypokalemia, Hematoma of occipital region of scalp, Concussion Instructions: ED Head Injury (Adult), ED Hypokalemia, ED Fainting, Uncertain Cause, ED Hypocalcemia (Adult) Prescriptions: New potassium chloride 20 mEq tablet extended release 40 meq PO DAILY 5 Days Qty: 10 0RF No Action alprazolam 0.5 mg tablet 0.5 mg PO BID PRN (Reason: anxiety) Qty: 60 1RF aripiprazole 10 mg tablet 10 mg PO DAILY Qty: 30 2RF bupropion HCl 300 mg tablet extended release 24 hr 300 mg PO DAILY Qty: 30 2RF hydroxyzine HCl 25 mg tablet 25 mg PO TID PRN (Reason: anxiety) Qty: 90 2RF vortioxetine 20 mg tablet 20 mg PO DAILY Qty: 30 2RF magnesium 200 mg tablet 250 mg PO DAILY spironolactone 25 mg tablet 25 mg PO DAILY ibuprofen 400 mg tablet 400 mg PO Q8H cyanocobalamin (vitamin B-12) 500 MCG tablet 1,000 mcg PO DAILY@0800 atorvastatin 20 mg Tablet 20 mg PO DAILY levothyroxine 100 mcg Tablet 100 mcg PO DAILY cholecalciferol (vitamin D3) [Vitamin D3] 50 mcg (2,000 unit) Capsule 1,250 mcg PO DAILY calcium citrate 250 mg calcium tablet 500 mg PO BID Qty: 120 0RF potassium chloride 20 mEq packet 20 meq PO DAILY aspirin [Adult Low Dose Aspirin] 81 mg tablet,delayed release (DR/EC) 81 mg PO BID docusate sodium [Colace] 100 mg capsule 100 mg PO BID calcium carbonate 200 mg calcium (500 mg) Tablet,Chewable 1,000 mg PO BIDCM 30 Days Qty: 300 0RF calcitriol 0.25 mcg Capsule 0.75 mcg PO BID 30 Days Qty: 180 0RF acetaminophen 500 mg Tablet 1,000 mg PO Q8 Qty: 0 0RF sennosides-docusate sodium [Stool Softener-Stimulant Laxat] 8.6-50 mg Tablet 2 tab PO BID 30 Days Qty: 120 0RF oxycodone 5 mg Tablet 10 mg PO Q4H PRN PRN (Reason: Pain Score 6-10) 7 Days Qty: 42 0RF hydrocodone-acetaminophen 5-325 mg tablet 1 tab PO Q4H PRN PRN (Reason: Pain) 3 Days Qty: 10 0RF pantoprazole 20 mg tablet,delayed release (DR/EC) 20 mg PO DAILY Qty: 90 1RF mirtazapine 15 mg tablet See Rx Instructions .ROUTE .COMPLEX Qty: 15 2RF Dose Instruction: take 1/2 tablet by mouth at bedtime Rx Instructions: take 1/2 tablet by mouth at bedtime ramelteon 8 mg tablet 8 mg PO QHS PRN (Reason: sleep) Qty: 30 2RF Primary Care Provider: Alondra Davies Referrals: Alondra Davies MD [Primary Care Provider] - 1 Week Activity Restrictions/Additional Instructions: We are increasing your potassium to 40 mEq a day for the next 5 days. Please also increase your calcium citrate to 500 mg 3 times a day. You need to make sure you have your potassium and calcium rechecked before the weekend. Disposition Disposition: Home, Self Care
[2023-02-15 12:49] LABS: Absolute Lymphocyte Count 1.78 X10^3/uL (0.83-4.51); Basophil# 0.05 X10^3/uL; Basophil% 0.9 % (0-1); Eosinophil# 0.29 X10^3/uL; Eosinophils% 5.1 % (0-5); Hematocrit 33.2 % (37-47); Hemoglobin 10.3 g/dL (12.0-15.0); Lymphocyte # 1.78 X10^3/ul (0.83-4.51); Lymphocyte % 31.2 % (19-41); Mean Corpuscular Hgb 24.8 pg (27.0-32.0); Mean Corpuscular Volume 79.8 fL (81-99); Mean Platelet Vol. 9.8 fl (6.2-12.0); Monocyte# 0.61 X10^3/uL; Monocyte% 10.7 % (0-10); NRBC Flagged by Analyzer 0 % (0-5); Neutrophil # 2.95 X10^3/uL (2.7-7.7); Neutrophil % 51.6 % (47-70); Platelet Count 482 K/mm3 (150-450); RBC Distribution Width CV 16.7 % (11.6-14.6); RBC Distribution Width SD 48.2 fl (35.1-43.9); Red Blood Count 4.16 M/mm3 (4.2-5.4); White Blood Count 5.7 K/mm3 (4.4-11.0)
[2023-02-15 12:57] LABS: Anion Gap 11 (5-15); BUN 15 mg/dL (7-18); BUN/Creat Ratio 10.1 RATIO (10-20); Calcium,Total 6.5 mg/dL (8.5-10.1); Chloride 103 mmol/L (98-107); Creatinine, Serum 1.48 mg/dL (0.55-1.02); EST Glomerular Filtration Rate 39 mL/min (>60); Est Glom Filt Rate - Afr Amer 47 mL/min (>60); Estimated Creatinine Clearance 41.27 ml/min; Glucose 137 mg/dL (74-106); Potassium 2.7 mmol/L (3.5-5.1); Sodium Level 139 mmol/L (136-145); Troponin-I HS 11 pg/mL (3.0-54.0)
--- NOTE | 2023-02-15 13:00 | RAD_ITS ---
INDICATION: syncope EXAMINATION/TECHNIQUE: X-RAY - XR Chest 1 View COMPARISON: Prior study dated: 10/05/2019. FINDINGS: LINES/DEVICES: None. LUNGS: No consolidation, edema or effusion. No pneumothorax. MEDIASTINUM AND CARDIOVASCULAR STRUCTURES: Cardiac silhouette not enlarged. Central airways and mediastinal contour are unremarkable. BONES AND SOFT TISSUES: Unremarkable. RAD/Chest 1 View (Portable) IMPRESSION: No radiographic evidence of acute cardiopulmonary disease. Electronically Signed: Neno Peace MD at 13:34 EST ,
[2023-02-15 13:34] LABS: Ionized Calcium 3.37 mg/dL (4.36-5.20)
[2023-02-15 13:39] LABS: Magnesium 1.7 mg/dL (1.6-2.6); Thyroid Stim Hormone (TSH) 2.69 uIU/mL (0.358-3.74)
[2023-02-15] MEDS: Potassium Chloride 10mEq/100mL 10 MEQ/100 ML IV.SOLN. 100 MEQ IV BOLUS (14:06)
[2023-02-15] MEDS: Potassium Chloride Oral Soln 20 MEQ/15 ML UDC 40 MEQ PO (14:06)
[2023-02-15 15:32] VITALS: BP 100/80; PULSE 86; RESP 16; O2SAT 98
[2023-02-15] MEDS: Calcium Gluconate IV 2 GM in 0.9% Normal Saline (100mL Bag) 100 ML IV (15:40)
[2023-02-15 16:48] VITALS: BP 130/78; PULSE 79; RESP 18; O2SAT 99
== END 2023-02-15 17:46 | disposition home or self-care (01) ==
PROVIDERS: Emergency Provider Emergency Medicine; PCP Internal Medicine; Referring Provider Emergency Medicine; Visit Provider Emergency Medicine
DX: R55 Syncope and collapse (principal); Z68.42 Body mass index [BMI] 45.0-49.9, adult; E31.21 Multiple endocrine neoplasia [MEN] type I; N18.30 Chronic kidney disease, stage 3 unspecified; S06.0XAA Concussion with loss of consciousness status unknown, initial encounter; S00.03XA Contusion of scalp, initial encounter; X58.XXXA Exposure to other specified factors, initial encounter; Y92.89 Other specified places as the place of occurrence of the external cause; E87.6 Hypokalemia; E78.00 Pure hypercholesterolemia, unspecified; E83.51 Hypocalcemia; I12.9 Hypertensive chronic kidney disease with stage 1 through stage 4 chronic kidney disease, or unspecified chronic kidney disease; E66.9 Obesity, unspecified; Z79.82 Long term (current) use of aspirin; Z79.899 Other long term (current) drug therapy
CPT/HCPCS: 70450; 71045; 80048; 82330; 83735; 84443; 84484; 85025; 93005; 96365; 96367; 99284; J7030; A4216; J0612

== ENCOUNTER → 2023-02-24 | Outpatient (CLI) | payer MEDICARE, MEDICAID, SELFPAY ==
[2023-02-24 12:34] LABS: Absolute Lymphocyte Count 1.53 X10^3/uL (0.83-4.51); Basophil# 0.06 X10^3/uL; Basophil% 0.8 % (0-1); Eosinophil# 0.48 X10^3/uL; Eosinophils% 6.3 % (0-5); Hematocrit 34.5 % (37-47); Hemoglobin 10.5 g/dL (12.0-15.0); Lymphocyte # 1.53 X10^3/ul (0.83-4.51); Lymphocyte % 20.1 % (19-41); Mean Corp Hgb Conc 30.4 g/dL (32-36); Mean Corpuscular Hgb 24.4 pg (27.0-32.0); Mean Platelet Vol. 8.8 fl (6.2-12.0); Monocyte# 0.48 X10^3/uL; Monocyte% 6.3 % (0-10); NRBC Flagged by Analyzer 0 % (0-5); Neutrophil # 4.95 X10^3/uL (2.7-7.7); Neutrophil % 64.9 % (47-70); Platelet Count 593 K/mm3 (150-450); RBC Distribution Width CV 16.9 % (11.6-14.6); RBC Distribution Width SD 49.1 fl (35.1-43.9); Red Blood Count 4.31 M/mm3 (4.2-5.4); White Blood Count 7.6 K/mm3 (4.4-11.0)
[2023-02-24 12:37] LABS: Ionized Calcium 3.78 mg/dL (4.36-5.20)
[2023-02-24 12:45] LABS: Vitamin D,25 Hydroxy 37.2 ng/mL
[2023-02-24 13:05] LABS: T4 Free Direct 1.06 ng/dL (0.76-1.46); Thyroid Stim Hormone (TSH) 2.46 uIU/mL (0.358-3.74)
[2023-02-24 13:45] LABS: ALB/GLOB Ratio 0.8 RATIO (0.9-2.4); AST(SGOT) 23 U/L (15-37); Alanine Aminotransfer ALT/SGPT 16 U/L (13-56); Albumin, Serum 3.2 g/dL (3.2-5.0); Alkaline Phosphatase 141 U/L (45-117); Anion Gap 12 (5-15); BUN 21 mg/dL (7-18); BUN/Creat Ratio 14.3 RATIO (10-20); Calcium,Total 6.3 mg/dL (8.5-10.1); Chloride 105 mmol/L (98-107); Creatinine, Serum 1.47 mg/dL (0.55-1.02); EST Glomerular Filtration Rate 39 mL/min (>60); Est Glom Filt Rate - Afr Amer 47 mL/min (>60); Glucose 91 mg/dL (74-106); Magnesium 1.9 mg/dL (1.6-2.6); Potassium 3.6 mmol/L (3.5-5.1); Protein, Total 7.2 g/dL (6.4-8.2); Sodium Level 141 mmol/L (136-145)
== END | disposition home or self-care (01) ==
LOC: BIMLAB 09:33
PROVIDERS: Internal Medicine Endocrinology, Diabetes & Metabolism; PCP Internal Medicine; Referring Provider Physician Assistant; Visit Provider Physician Assistant
DX: E21.3 Hyperparathyroidism, unspecified (principal); E03.9 Hypothyroidism, unspecified; E87.6 Hypokalemia; D64.9 Anemia, unspecified
CPT/HCPCS: 36415; 80053; 82306; 82330; 83735; 84439; 84443; 85025

== ENCOUNTER → 2023-04-01 | Outpatient (CLI) | payer MEDICARE, MEDICAID, SELFPAY ==
--- OUTSIDE RECORDS SUMMARY | 2023-04-01 11:41 | XMS RPT_ITS | CCD ---
Author Name Unknown Address [address] [place] [address] Organization [facility] Care Team Providers Care Material Scheduler Name Role Phone VAHID MAY Attending Unavailable KEITH YAN Primary Care Unavailable VAHID MAY Attending Unavailable KEITH YAN Primary Care Unavailable Herman Vann MD Unavailable Bret Salomon MD Primary Care Provider [phone] Herman Vann MD Unavailable Herman Vann MD Unavailable VIKA SIGALAAN Referring Unavailable SIPERSTEIN, JOHANNY Referring Unavailable BLETSIS, JD Referring Unavailable SIPERSTEIN, JOHANNY Referring Unavailable SIPERSTEIN, JOHANNY Attending Unavailable Allergies Allergy Classification Reported Allergen(s) Allergy Type Date of Onset Reaction(s) Facility (17 sources) Contrast media; Translations: [CONTRAST DYE] Drug Allergy 10-22-2007 Rash [facility] (17 sources) ferrous gluconate; Translations: [FERROUS GLUCONATE] Drug Allergy 06-14-2012 GI Upset [facility] Work Phone: (17 sources) Morphine; Translations: [MORPHINE] Drug Allergy 05-14-2005 Rash [facility] (17 sources) Ondansetron; Translations: [ONDANSETRON] Drug Allergy 02-22-2018 Other: See Comments [facility] (17 sources) oxyCODONE; Translations: [OXYCODONE HCL] Drug Allergy 01-07-2007 Rash, Swelling [facility] (17 sources) Propranolol; Translations: [PROPRANOLOL] Drug Allergy 04-02-2017 Itching [facility] Work Phone: Medications Current Medications Medication Drug Class(es) Dates Sig (Normalized) Sig (Original) diphenhydrAMINE hydrochloride 25 mg oral capsule (1 source) Histamine-1 Receptor Antagonist Start: 07-01-2022 End: 07-02-2022 diphenhydrAMINE 50 mg (BENADRYL) Completed/Discontinued Medications Medication Drug Class(es) Dates Sig (Normalized) Sig (Original) ALPRAZolam 0.5 mg oral tablet (16 sources) Benzodiazepine Start: 04-24-2016 take 1 tablet by mouth once daily at bedtime ALPRAZolam (XANAX) 0.5 mg tablet Take 1 tablet by mouth daily at bedtime. 0 04/24/2016 Active Problems Active Problems Problem Classification Problem Date Documented Da te Episodic/Chronic Anxiety disorders (20 sources) Generalized anxiety disorder; Translations: [Generalized anxiety disorder] Onset: 0 08-05-2018 Chronic Attention-deficit, conduct, and disruptive behavior disorders (16 sources) Attention deficit hyperactivity disorder; Translations: [Attention-deficit hyperactivity disorder, unspecified type] Onset: 4 08-05-2018 Chronic Cancer of pancreas (2 sources) Malignant neoplasm of head of pancreas; Translations: [Malignant tumor of head of pancreas] Onset: 3 07-17-2022 Chronic Chronic kidney disease (16 sources) Chronic kidney disease stage 3; Translations: [CKD (chronic kidney disease) stage 3, GFR 30-59 ml/min] Onset: 4 03-03-2021 Chronic Chronic kidney disease (1 source) Chronic kidney disease; Translations: [Chronic kidney disease (CKD) stage G3b/A1, moderately decreased glomerular filtration rate (GFR) between 30-44 mL/min/1.73 square meter and albuminuria creatinine ratio less than 30 mg/g ([facility])] Onset: 3 Chronic ulcer of skin (16 sources) Traumatic ulcer; Translations: [Non-pressure chronic ulcer of skin of other sites with fat layer exposed] Onset: 1 04-14-2020 Chronic Complications of surgical procedures or medical care (17 sources) Post-surgical hypoparathyroidism; Translations: [Postprocedural hypoparathyroidism] Onset: 7 08-05-2018 Chronic Disorders of lipid metabolism (16 sources) Hyperlipidemia; Translations: [Hyperlipidemia, unspecified] Onset: 5 03-03-2021 Chronic Esophageal disorders (16 sources) Gastroesophageal reflux disease; Translations: [Gastro-esophageal reflux disease without esophagitis] Onset: 9 10-21-2018 Chronic Essential hypertension (17 sources) Essential hypertension; Translations: [Essential (primary) hypertension] Onset: 8 06-25-2020 Chronic Inflammation; infection of eye (except that caused by tuberculosis or sexually transmitteddisease) (1 source) Acute conjunctivitis of left eye; Translations: [Unspecified acute conjunctivitis, left eye] 10-09-2022 Episodic Mood disorders (16 sources) Depressive disorder; Translations: [Depression] 08-05-2018 Chronic Osteoarthritis (16 sources) Arthritis of left knee; Translations: [Unilateral primary osteoarthritis, left knee] Onset: 9 03-09-2018 Chronic Other connective tissue disease (1 source) Swelling of lower limb; Translations: [Other specified soft tissue disorders] Episodic Other endocrine disorders (19 sources) Multiple endocrine neoplasia, type 1; 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] Onset: 8 03-03-2021 Chronic Other endocrine disorders (1 source) 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; Translations: [MEN1 (multiple endocrine neoplasia) (HCC)] Onset: Chronic Other endocrine disorders (1 source) Hyperparathyroidism; Translations: [Hyperparathyroidism, unspecified] 10-21-2022 Chronic Other gastrointestinal disorders (16 sources) History of bypass of stomach; Translations: [Bariatric surgery status] 06-28-2012 Episodic Other nutritional; endocrine; and metabolic disorders (17 sources) Body mass index 40+ - severely obese; Translations: [Morbid (severe) obesity due to excess calories] Onset: 8 11-24-2017 Chronic Other screening for suspected conditions (not mental disorders or infectious disease) (1 source) Patient encounter status; Translations: [Encounter for screening mammogram for malignant neoplasm of breast] Episodic Other upper respiratory infections (1 source) Upper respiratory infection; Translations: [Acute upper respiratory infection, unspecified] 10-09-2022 Episodic Residual codes; unclassified (16 sources) Obstructive sleep apnea syndrome; Translations: [Obstructive sleep apnea (adult) (pediatric)] Onset: 7 08-05-2018 Chronic Residual codes; unclassified (2 sources) Swelling; Translations: [Edema, unspecified] Episodic Spondylosis; intervertebral disc disorders; other back problems (20 sources) Sacroiliac disorder; Translations: [Spondylosis without myelopathy or radiculopathy, sacral and sacrococcygeal region] Onset: 9 07-13-2018 Chronic Thyroid disorders (16 sources) Hypothyroidism; Translations: [Hypothyroidism, unspecified] Onset: 9 09-30-2018 Chronic Past or Other Problems Problem Classification Problem Date Documented Da te Episodic/Chronic Calculus of urinary tract (16 sources) Kidney stone; Translations: [Calculus of kidney] Onset: 11-24-2017 11-24-2017 Episodic Deficiency and other anemia (16 sources) Iron deficiency anemia; Translations: [Iron deficiency anemia, unspecified] Onset: 09-02-2018 09-02-2018 Episodic Fluid and electrolyte disorders (19 sources) Hypokalemia; Translations: [Hypokalemia] Onset: 12-20-2014 Episodic Nutritional deficiencies (16 sources) Cobalamin deficiency; Translations: [Deficiency of other specified B group vitamins] Onset: 08-15-2010 08-15-2010 Episodic Other female genital disorders (2 sources) Personal history of cervical dysplasia; Translations: [Personal history of cervical dysplasia] Onset: 07-14-2017 Episodic Pancreatic disorders (not diabetes) (16 sources) Mass of pancreas; Translations: [Other specified diseases of pancreas] Onset: 09-19-2014 10-01-2016 Episodic Results Test Name Value Interpretation Reference Range Facil ity Vital Signs Date Time Vital Sign Value Performing Clinician Faci litmercy 10-09-2022 09:56-0400 Body temperature 98.2 [degF] Nallely Garcia APRN.CNP Work Phone: [facility] 10-09-2022 09:56-0400 Body weight 134.26 kg Nallely Garcia APRN.CNP Work Phone: [facility] 10-09-2022 09:56-0400 Diastolic blood pressure 64 mm[Hg] Nallely Garcia APRN.CNP Work Phone: [facility] 10-09-2022 09:56-0400 Heart rate 99 /min Nallely Jose RIVER CAPTAIN.SAFETY TEACHER Work Phone: [facility] 10-09-2022 09:56-0400 Respiratory rate 18 /min Nallely Jose RIVER CAPTAIN.SAFETY TEACHER Work Phone: [facility] 10-09-2022 09:56-0400 SaO2% (BldA) [Mass fraction] 94 % Nallely Jose RIVER CAPTAIN.SAFETY TEACHER Work Phone: [facility] 10-09-2022 09:56-0400 Systolic blood pressure 108 mm[Hg] Nallely Jose RIVER CAPTAIN.SAFETY TEACHER Work Phone: [facility] Encounters Encounter Date Encounter Type Care Provider Facility Start: 10-21-2022 Orders Only Johanny lin MD Work Phone: Endocrine Surgery Procedures Date Procedure Procedure Detail Performing Clinician Start: 07-17-2022 Ct abdomen w/contras t material Johanny Sigala MD Work Phone: Start: 07-12-2020 Lipid 1996 panel - S shira or Plasma Ct (I-Stat) Work Phone: Start: 10-24-2018 Colonoscopy Bret Salomon MD Work Phone: Start: 07-27-2017 Mammography Bret Salomon MD Work Phone: Plan of Treatment Date Care Activity Detail Author Start: 06-30-2028 Urine microalbumin profile [facility] Start: 10-06-2025 DIABETES SCREEN DIABETES SCREEN [facility] Start: 10-06-2025 Diabetes Screening Diabetes Screenin g [facility] Start: 07-12-2025 Lipid 1996 panel - S shira or Plasma Lipid Screening [facility] Start: 07-12-2025 LIPID SCREEN LIPID SCREEN [facility] Start: 06-12-2025 DIABETES SCREEN DIABETES SCREEN [facility] Start: 02-28-2024 DIABETES SCREEN DIABETES SCREEN [facility] Start: 10-10-2023 BP CONTROLLED (<130/80) BP CON TROLLED (<130/80) [facility] Start: 10-07-2023 SERUM CREATININE SERUM CREATININE Cl [facility] Start: 08-09-2023 End: 10-09-2023 C peptide [Mass/volume] in Serum or Plasma C-PEPTIDE BLD Lab Routine MEN1 (multiple endocrine neoplasia) (HCC) Expected: 08/09/2023 (Approximate), Expires: 10/09/2023 [facility] Work Phone: Immunizations Immunization Date Immunization Notes Care Provider Fa prashant 12-18-2020 influenza, injectabl e, quadrivalent, contains preservative Bret Salomon MD Work Phone: [facility] 12-18-2020 influenza virus vacc ine, unspecified formulation Ct (I-Stat) Work Phone: [facility] 11-22-2018 influenza, injectabl e, quadrivalent, contains preservative Bret Salomon MD Work Phone: [facility] 06-30-2018 tetanus toxoid, redu marciano diphtheria toxoid, and acellular pertussis vaccine, adsorbed Bret Salomon MD Work Phone: [facility] 11-26-2017 influenza, injectabl e, quadrivalent, contains preservative Bret Salomon MD Work Phone: [facility] 05-12-2017 pneumococcal conjuga te vaccine, 13 valent Bret Salomon MD Work Phone: [facility] 01-13-2017 influenza, injectabl e, quadrivalent, contains preservative Bret Salomon MD Work Phone: [facility] 11-15-2015 influenza, injectabl e, quadrivalent, contains preservative Bret Salomon MD Work Phone: [facility] 11-15-2015 pneumococcal polysaccharide vaccine, 23 valent Bret Salomon MD Work Phone: [facility] 12-18-2014 influenza, seasonal, injectable Bret Salomon MD Work Phone: [facility] 01-12-2013 influenza virus vacc ine, unspecified formulation Bret Salomon MD Work Phone: [facility] 12-15-2011 influenza virus vacc ine, unspecified formulation Bret Salomon MD Work Phone: [facility] 12-15-2011 tetanus toxoid, redu marciano diphtheria toxoid, and acellular pertussis vaccine, adsorbed Bret Salomon MD Work Phone: [facility] 12-06-2008 pneumococcal polysaccharide vaccine, 23 valent Bret Salomon MD Work Phone: [facility] Work Phone: 01-07-2007 influenza virus vacc ine, unspecified formulation Bret Salomon MD Work Phone: [facility] 01-27-2006 influenza virus vacc ine, unspecified formulation Bret Salomon MD Work Phone: [facility] Payers Date Payer Category [place]ayer [place] [id number] 2019-Present [phone] [address] [place] [address] Medicaid [id number] 2019 [place] [id number] 2019-Present [phone] [address] [place], [place] [id number] Medicaid [id number] 2018 Medicare [place] [id number] 2018-Present [phone] [address] [place] [address] O [id number] 2018 Medicare [employer] [id number] 2018-Present [phone] [address] [place] [address] O [id number] 2017 Medicaid [id number] 2017 Medicare [id number] 1965 Unknown [id number] 1965 Unknown [id number] Social History Date Type Detail Facility Start: 11-24-2010 End: 10-09-2022 Tobacco smoking status NHIS Never smoked tobacco [facility] Start: 12-18-2020 End: 10-09-2022 Alcohol intake Current drinker of alcohol (finding) [facility] Start: 08-17-2019 End: 03-06-2020 History SDOH Alcohol Frequency 1 [facility] Start: 05-02-2019 History SDOH Alcohol Std Drinks 98 [facility] Start: 01-29-2016 History SDOH Alcohol Comment occasionally - social [facility] Start: 03-20-2019 End: 08-17-2019 History SDOH Social Connections Phone 5 [facility] Start: 08-17-2019 End: 03-06-2020 History SDOH Social Connections [employer] 2 [facility] Start: 03-20-2019 End: 08-17-2019 History SDOH Physical Activity DPW 0 [facility] Start: 03-19-2019 Education 21 [facility] Start: 1965 Sex Assigned At Female [facility] Start: 11-24-2010 End: 10-09-2022 Tobacco use and exposure Smokeless tobacco non-user [facility] Work Phone: Start: 08-17-2019 End: 02-12-2020 History of Social function [facility] Start: 08-17-2019 End: 02-12-2020 Social connection and isolation panel [facility] Frequency of Communication with Friends and Family Not on file [facility] How often to you hav e a drink containing alcohol? Never [facility] Do you feel stress - tense, restless, nervous, or anxious, or unable to sleep at night because your mind is troubled all the time - these days [OSQ] Only a little [facility] (I/We) worried wheth er (my/our) food would run out before (I/we) got money to buy more. Never true [facility] In the past 12 month s, was there a time when you were not able to pay the mortgage or rent on time? No [facility] Start: 04-05-2020 Gender identity Identifies as female gender (finding) [facility] Medical Equipment Procedure Code Equipment Code Equipment Origin al Text Equipment Identifier Dates [id number] Implant - [id number] Start: 11-26-2010 Clinical Notes 07-13-2018 to 10-09-2022 Patient InstructionsNallely Garcia APRN.SAFETY TEACHER - 10/09/2022 10:04 AM Fran Sigala MD - 08/26/2022 9:52 AM Sydney Castro RT(Princess) - 07/17/2022 1:40 PM EDT Note Date & Type Note Facility 10-09-2022 Note HNO ID: [id number] Author: Nallely Garcia APRN.SAFETY TEACHER Service: ? Author Type: Nurse Practitioner Type: Progress Notes Filed: 10/09/2022 11:01 AM Note Text: Subjective The history is provided by the patient. No multi disciplined language analyst was used. HPI Thuy White is a 57 year old female who presents today for CC of left eye drainage and redness. She is also having nasal congestion, runny nose, slight cough. She has used sudafed with short term relief. She denies any fever, chills, body aches, sore throat, ear pain, nausea, vomiting or diarrhea. No loss or change in vision, no pain in eye. BP 108/64 Pulse 99 Temp 36.8 ?C (98.2 ?F) Resp 18 Wt 134.3 kg (296 lb) LMP 02/01/2007 SpO2 94% BMI 46.36 kg/m? 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 Chronic right SI joint pain 07/13/2018 Esophageal reflux 2006 Essential hypertension 11/26/2017 Fracture of right clavicle 11/15/2015 Generalized anxiety disorder 2004 with panic attacks Herpes genitalis Hypoparathyroidism ([facility]) parathyroid implant Left forearm Hypothyroidism 09/30/2018 IFG (impaired fasting glucose) 05/08/2014 Impaired fasting glucose Insomnia 03/16/2013 Iron deficiency anemia Irritable bowel syndrome 1997 diarrhea prone, dairy exacerbates MEN 1 (multiple endocrine neoplasia) ([facility]) Dr Vann [facility] Morbid obesity ([facility]) 2006 s/p sleeve Dr Dale Obstructive sleep apnea fair complaince with CPAP Primary hyperparathyroidism ([facility]) 3 1/ gland parathyroidectomy Renal insufficiency Sternoclavicular joint subluxation 07/16/2016 I have confirmed and edited as necessary, the [facility] Review of Systems Constitutional: Negative for chills and fever. HENT: Positive for congestion and sinus pain. Negative for ear pain and sore throat. Eyes: Positive for discharge and redness. Respiratory: Positive for cough. Negative for sputum production, shortness of breath and wheezing. Cardiovascular: Negative for chest pain. Musculoskeletal: Negative for myalgias. Neurological: Negative for headaches. Objective Physical Exam Vitals and nursing note reviewed. HENT: Head: Normocephalic and atraumatic. Right Ear: Tympanic membrane, ear canal and external ear normal. Left Ear: Tympanic membrane, ear canal and external ear normal. Nose: Mucosal edema, congestion and rhinorrhea present. Right Sinus: No maxillary sinus tenderness or frontal sinus tenderness. Left Sinus: No maxillary sinus tenderness or frontal sinus tenderness. Mouth/Throat: Pharynx: Uvula midline. No oropharyngeal exudate or posterior oropharyngeal erythema. Eyes: General: Lids are normal. Lids are everted, no foreign bodies appreciated. Right eye: No foreign body or discharge. Left eye: Discharge present.No foreign body. Conjunctiva/sclera: Right eye: Right conjunctiva is not injected. Left eye: Left conjunctiva is injected. Funduscopic exam: Right eye: Red reflex present. Left eye: Red reflex present. Cardiovascular: Rate and Rhythm: Normal rate and regular rhythm. Heart sounds: Normal heart sounds. Pulmonary: Effort: Pulmonary effort is normal. Breath sounds: Normal breath sounds. Lymphadenopathy: Head: Right side of head: No submental, submandibular or tonsillar adenopathy. Left side of head: No submental, submandibular or tonsillar adenopathy. Cervical: No cervical adenopathy. Skin: General: Skin is warm and dry. Neurological: Mental Status: She is alert. Psychiatric: Mood and Affect: Affect normal. ASSESSMENT/PLAN: 1. URI with cough and congestion - ICD9: 465.9, ICD10: J06.9 (primary diagnosis) - Discussed viral etiology and rationale for treatment. - Symptomatic treatment with prn analgesia - Supportive care with fluids and rest 2. Acute conjunctivitis of left eye, unspecified acute conjunctivitis type - ICD9: 372.00, ICD10: H10.32 Viral - compresses, soothing drops. Start polytrim if change in drainage - course and contagiousness issues discussed, including hand washing. - Instructed to call if high fever, development of periorbital redness or swelling, eye pain, visual changes, concerns or if symptoms persist. Diagnosis and treatment plan were discussed and questions were answered to the patient's satisfaction. Pt acknowledged understanding of concepts and follow up plan. Specific signs and symptoms that would indicate the need for higher level of care were discussed in detail warranting prompt ER evaluation. MICK Garcia [facility] 10-09-2022 Instructions Nallely Garcia APRN.CNP - 10/09/2022 10:06 AM EDT Cool compresses to eye Start polytrim if redness and drainage increase Flonase or Nasonex 2 sprays in each nostril once a day Rest, increase water intake Motrin or Tylenol as needed for fever or pain. Salt water gargles, chloraseptic spray or lozenges as needed for sore throat. Warm beverages, honey. Nasal saline spray as needed Cool mist humidifier at night A cold normally lasts 7-10 days. If your symptoms are lasting longer, develop fever, or worsening by that time instead of improving then return to clinic or follow up with PCP for re-evaluation. * Seek medical care immediately, call 911, go to ER if you have chest pain, difficulty breathing, shortness of breath, inability to swallow. documented in this encounter [facility] 10-09-2022 History of Present illness Narrative Subjective The history is provided by the patient. No multi disciplined language analyst was used. HPI Thuy White is a 57 year old female who presents today for CC of left eye drainage and redness. She is also having nasal congestion, runny nose, slight cough. She has used sudafed with short term relief. She denies any fever, chills, body aches, sore throat, ear pain, nausea, vomiting or diarrhea. No loss or change in vision, no pain in eye. 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 Chronic right SI joint pain 07/13/2018 Esophageal reflux 2006 Essential hypertension 11/26/2017 Fracture of right clavicle 11/15/2015 Generalized anxiety disorder 2004 with panic attacks Herpes genitalis Hypoparathyroidism (HCC) parathyroid implant Left forearm Hypothyroidism 09/30/2018 IFG (impaired fasting glucose) 05/08/2014 Impaired fasting glucose Insomnia 03/16/2013 Iron deficiency anemia Irritable bowel syndrome 1998 diarrhea prone, dairy exacerbates MEN 1 (multiple endocrine neoplasia) [facility] ([facility]) 2006 s/p sleeve Dr Dale Obstructive sleep apnea fair complaince with CPAP Primary hyperparathyroidism ([facility]) 3 1/2 gland parathyroidectomy Renal insufficiency Sternoclavicular joint subluxation 07/16/2016 I have confirmed and edited as necessary, the [facility] Review of Systems Constitutional: Negative for chills and fever. HENT: Positive for congestion and sinus pain. Negative for ear pain and sore throat. Eyes: Positive for discharge and redness. Respiratory: Positive for cough. Negative for sputum production, shortness of breath and wheezing. Cardiovascular: Negative for chest pain. Musculoskeletal: Negative for myalgias. Neurological: Negative for headaches. Objective Physical Exam Vitals and nursing note reviewed. HENT: Head: Normocephalic and atraumatic. Right Ear: Tympanic membrane, ear canal and external ear normal. Left Ear: Tympanic membrane, ear canal and external ear normal. Nose: Mucosal edema, congestion and rhinorrhea present. Right Sinus: No maxillary sinus tenderness or frontal sinus tenderness. Left Sinus: No maxillary sinus tenderness or frontal sinus tenderness. Mouth/Throat: Pharynx: Uvula midline. No oropharyngeal exudate or posterior oropharyngeal erythema. Eyes: General: Lids are normal. Lids are everted, no foreign bodies appreciated. Right eye: No foreign body or discharge. Left eye: Discharge present.No foreign body. Conjunctiva/sclera: Right eye: Right conjunctiva is not injected. Left eye: Left conjunctiva is injected. Funduscopic exam: Right eye: Red reflex present. Left eye: Red reflex present. Cardiovascular: Rate and Rhythm: Normal rate and regular rhythm. Heart sounds: Normal heart sounds. Pulmonary: Effort: Pulmonary effort is normal. Breath sounds: Normal breath sounds. Lymphadenopathy: Head: Right side of head: No submental, submandibular or tonsillar adenopathy. Left side of head: No submental, submandibular or tonsillar adenopathy. Cervical: No cervical adenopathy. Skin: General: Skin is warm and dry. Neurological: Mental Status: She is alert. Psychiatric: Mood and Affect: Affect normal. ASSESSMENT/PLAN: 1. URI with cough and congestion - ICD9: 465.9, ICD10: J06.9 (primary diagnosis) - Discussed viral etiology and rationale for treatment. - Symptomatic treatment with prn analgesia - Supportive care with fluids and rest 2. Acute conjunctivitis of left eye, unspecified acute conjunctivitis type - ICD9: 372.00, ICD10: H10.32 Viral - compresses, soothing drops. Start polytrim if change in drainage - course and contagiousness issues discussed, including hand washing. - Instructed to call if high fever, development of periorbital redness or swelling, eye pain, visual changes, concerns or if symptoms persist. Diagnosis and treatment plan were discussed and questions were answered to the patient's satisfaction. Pt acknowledged understanding of concepts and follow up plan. Specific signs and symptoms that would indicate the need for higher level of care were discussed in detail warranting prompt ER evaluation. Jose, RIVER CAPTAIN.SAFETY TEACHER documented in this encounter [facility] 08-26-2022 Note HNO ID: [id number] Author: Johanny Sigala MD Service: Endocrine Surgery Author Type: Physician Type: Progress Notes Filed: 08/28/2022 6:40 AM Note Text: [facility] Endocrinology Metabolism [facility] Johanny Sigala M.D. 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 I last evaluated her in August 2020. In terms of her pituitary axis, she has had no evidence of pituitary tumors nor hormone hypersecretion. On 07/02/2022, her prolactin measured 6.9, within the normal range and very similar to values over the past several years. In terms of her parathyroid axis, in 2005 she had undergone a 3-1/3-gland parathyroidectomy. Unfortunately, her remnant was not viable. She underwent a subsequent forearm autotransplant with cryopreserved material and this unfortunately did not take as well. Interestingly, she has had undetectable PTH levels, but her calciums have been surprising easy to control. She is currently on 500 mg of calcium on a daily basis as well as a supplemental 0.5 of calcitriol and 2000 of vitamin D3. She reports minimal symptomatology. On 05/28/2022, her calcium had measured 7.8 with an albumin of 3.3. This would, thus, correct into the low normal range. She has, thus, been stable for a long period of time on relatively low calcium and vitamin D supplementation. In terms of her pancreatic axis, she has had no prior pancreatic surgery. Since 2010, she has had a small enhancing mass in the head of the pancreas. Her most recent pancreas protocol CT scan I had ordered in July 2022. This demonstrated a stable 1.2 cm mass in the head of the pancreas. The remainder of her evaluation is entirely unchanged. Her major clinical issue beginning in January 2022 was a rather acute onset of multiple episodes of watery diarrhea. 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 She had somewhat briefly tried enzyme replacement, but stopped this as she thought it made the diarrhea worse. Her most recent laboratory studies done on 06/12/2022 show a gastrin of 77.2, well within the reference range, as well as well as an undetectable VIP. Glucose measures 95. Her somatostatin is normal at 23. 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 Elevations of the pancreatic polypeptide are typically seen in her syndrome. The values tend to fluctuate. Thus, this is thought to have little, if any, biologic activity. I do not feel that this is in any way related to her diarrhea. I encouraged her to resume a trial of her pancreatic enzymes, and she is well aware of the proper dosing to be taking at the time of eating depending on the amount of oral intake. I am pleased that, in aggregate, her MEN has been entirely stable. I do not feel that there is an endocrine cause of her diarrhea. I also encouraged her to follow up with her other medical doctors to get this under better control. My plan is to repeat a panel of laboratory studies in approximately one year's time. 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 I appreciate being involved in the care of your patient and please feel free to contact me should you have additional questions. JOHANNY SIGALA M.D. AES/089 Audio #: [id number] cc: Herman Vann MD [address] [place] [address], [address] [place] [id number] Bret Salomon MD [address] [place] [id number] Date Dictated: 08/26/2022 09:50:46 Date Typed: 08/27/2022 09:34:41 Date Revised: [facility] 08-26-2022 Note HNO ID: [id number] Author: Johanny Sigala MD Service: ? Author Type: Physician Type: Progress Notes Filed: 08/26/2022 9:53 AM Note Text: This office note has been dictated. Johanny Sigala MD I have communicated my name and active licensure. The patient's identity and physical location were verified at the time of this visit. Either the patient or their legal b2b outside sales representative has been informed of the risks and benefits of -- and alternatives to -- treatment through a remote evaluation and consents to proceed with the evaluation remotely. [facility] 08-26-2022 History of Present illness Narrative This office note has been dictated. Johanny Sigala MD I have communicated my name and active licensure. The patient's identity and physical location were verified at the time of this visit. Either the patient or their legal b2b outside sales representative has been informed of the risks and benefits of -- and alternatives to -- treatment through a remote evaluation and consents to proceed with the evaluation remotely. documented in this encounter [facility] 07-17-2022 Note HNO ID: [id number] Author: RT Maya(R) Service: ? Author Type: Customer Success Manager Type: Progress Notes Filed: 07/17/2022 2:28 PM Note Text: Radiology Service Progress Note DATE OF SERVICE: July 17, 2022 TIME: 2:27 PM PATIENT IDENTITY VERIFICATION COMPLETED USING TWO (2) STANDARD IDENTIFIERS: Name and Date of confirmed by patient verbally. FALL SCREENING: Has the patient had 2 falls in the last year or 1 fall with injury or currently using an Ambulatory Assistive Device (Walker, Cane, Wheelchair, Crutches, etc.)? No PATIENT GENDER DATA: Female. status: : No status: NO. PATIENT RELEVANT IMPLANT DATA REVIEWED: Yes ALLERGIES: Reviewed and unchanged CONTRAST ALLERGY: NO. EXAM: CT -CONTRAST INDUCED NEPHROPATHY RISK FACTORS: Not applicable CREATININE: Creatinine Date Value Ref Range Status 07/14/2022 1.34 (H) 0.58 - 0.96 mg/dL Final 04/04/2021 1.52 (H) 0.58 - 0.96 mg/dL Final 03/18/2021 1.69 (H) 0.58 - 0.96 mg/dL Final Estimated Glomerular Filtration Rate Date Value Ref Range Status 07/14/2022 47 (L) >=60 mL/min/1.73m? Final Comment: Estimated Glomerular Filtration Rate (eGFR) is calculated using the 2020 CKD-EPI creatinine equation. This equation utilizes serum creatinine, sex, and age as parameters. The creatinine assay has traceable calibration to isotope dilution-mass spectrometry. Refer to KDIGO guidelines for clinical interpretation. In patients with unstable renal function, e.g. those with acute kidney injury, the eGFR may not accurately reflect actual GFR. eGFR- Date Value Ref Range Status 04/04/2021 43 Final P.O.C.T. RESULTS: POC done: Yes, See Lab Tab July 17, 2022 TREATMENT: N/A PERIPHERAL IV DATA: Ambulatory: A peripheral IV was started in the Left forearm with a Angio cath: 20 gauge. RADIOLOGY DEPARTMENT: CT; Exam(s) Completed: Pancreas SIGNATURE: RT Amadeo(R) PATIENT NAME: Thuy White DATE: July 17, 2022 TIME: 2:27 PM [facility] 07-17-2022 History of Present illness Narrative Radiology Service Progress Note DATE OF SERVICE: July 17, 2022 TIME: 2:27 PM PATIENT IDENTITY VERIFICATION COMPLETED USING TWO (2) STANDARD IDENTIFIERS: Name and Date of confirmed by patient verbally. FALL SCREENING: Has the patient had 2 falls in the last year or 1 fall with injury or currently using an Ambulatory Assistive Device (Walker, Cane, Wheelchair, Crutches, etc.)? No PATIENT GENDER DATA: Female. status: : No status: NO. PATIENT RELEVANT IMPLANT DATA REVIEWED: Yes ALLERGIES: Reviewed and unchanged CONTRAST ALLERGY: NO. EXAM: CT -CONTRAST INDUCED NEPHROPATHY RISK FACTORS: Not applicable CREATININE: Creatinine Date Value Ref Range Status 07/14/2022 1.34 (H) 0.58 - 0.96 mg/dL Final 04/04/2021 1.52 (H) 0.58 - 0.96 mg/dL Final 03/18/2021 1.69 (H) 0.58 - 0.96 mg/dL Final Estimated Glomerular Filtration Rate Date Value Ref Range Status 07/14/2022 47 (L) >=60 mL/min/1.73m Final Comment: Estimated Glomerular Filtration Rate (eGFR) is calculated using the 2020 CKD-EPI creatinine equation. This equation utilizes serum creatinine, sex, and age as parameters. The creatinine assay has traceable calibration to isotope dilution-mass spectrometry. Refer to KDIGO guidelines for clinical interpretation. In patients with unstable renal function, e.g. those with acute kidney injury, the eGFR may not accurately reflect actual GFR. eGFR- Date Value Ref Range Status 04/04/2021 43 Final P.O.C.T. RESULTS: POC done: Yes, See Lab Tab July 17, 2022 TREATMENT: N/A PERIPHERAL IV DATA: Ambulatory: A peripheral IV was started in the Left forearm with a Angio cath: 20 gauge. RADIOLOGY DEPARTMENT: CT; Exam(s) Completed: Pancreas SIGNATURE: RT Amadeo(R) PATIENT NAME: Thuy White DATE: July 17, 2022 TIME: 2:27 PM documented in this encounter [facility] 02-11-2022 Miscellaneous Notes Called patient to schedule-no answer. Left voicemail notifying patient she needs an appt prior to additional refills. Please verify PCP and assist in scheduling when she calls back. Linh Saini Please clarify PCP and schedule accordingly. Last appointment: 12/18/20 Next appointment: None Pharmacy verified in [facility]. Refill(s) requested: Requested Prescriptions Pending Prescriptions Disp Refills omeprazole (PRILOSEC) 20 mg capsule 180 capsule 3 Sig: Take 1 capsule by mouth twice daily. Order(s) pended. Please advise. Holly Jarrett LPN, CMA documented in this encounter [facility] 12-08-2021 Miscellaneous Notes noted Patient no longer under Dr. Salomon care. Please have patient contact current PCP. Thanks, Yaneth Syed APRN.SAFETY TEACHER Pharmacy verified in [facility] Patient has been identified by name and date of : Yes Patient aware RX will be sent to pharmacy. No need to notify patient. Pharmacy phones for refill(s): Requested Prescriptions Pending Prescriptions Disp Refills spironolactone (ALDACTONE) 100 mg tablet [Pharmacy Med Name: SPIRONOLACTONE 100 MG TABLET] 15 tablet 1 Sig: take 1 tablet by mouth once daily Date of last office visit : 12/18/2020 Date of next office visit : Visit date not found Last 2 Encounter Wt Readings: Date: Wt: 12/18/2020 149.7 kg (330 lb 1.6 oz) 06/21/2020 144.7 kg (319 lb) Not applicable Please advise. Maddi Phelps MA documented in this encounter [facility] 10-31-2021 Miscellaneous Notes Called to notify patient Rx was sent. Rx sent in for doxapin. Thanks, Bret Salomon MD Patient is in the process of establishing with new PCP nearer her home. Is not able to establishing with new PCP until December (first available). Will be running out of various medication and will send a myChart message with needed medications. Medication below was prescribed by Psych doctor. Advised to call his office for renewal. Call back with any questions, issues, or concerns. Reason for Disposition [1] Caller has NON-URGENT medicine question about med that PCP prescribed AND [2] triager unable to answer question Answer Assessment - Initial Assessment Questions 1. DRUG NAME: Doxapin at night for insomnia Has been out for three days. Prescribed by [facility] through [facility] Psych that prescribed them advised that she has to get medication from PCP. 2. REFILLS REMAINING: None Last filled on September 24 at [facility] 3. EXPIRATION DATE: 4. PRESCRIBING HCP: Psychiatrist 5. SYMPTOMS: Difficulty sleeping without it. Protocols used: Medication Refill and Renewal [id number] documented in this encounter [facility] 10-07-2021 Miscellaneous Notes Spoke with patient and tried to schedule a follow up appt. Patient stated that she is looking into a new PCP in the [place] area closer to home. Patient denied scheduling and will be scheduling with new pcp. Patient due for follow up, please assist in scheduling. Yaneth Syed APRN.VANDA Pharmacy verified in [facility] Patient has been identified by name and date of : Yes Patient aware RX will be sent to pharmacy. No need to notify patient. Patient phones for refill(s): Pending Prescriptions Disp Refills FUROSEMIDE 20 MG TABLET 180 tablet 1 Sig: take 1 tablet by mouth twice a day LITZY: Yes Date of last office visit : 12/18/2020 Date of next office visit : Visit date not found Last 2 Encounter Wt Readings: Date: Wt: 12/18/2020 149.7 kg (330 lb 1.6 oz) 06/21/2020 144.7 kg (319 lb) Please advise. Marivel Mackay Ma documented in this encounter [facility] 09-01-2021 Miscellaneous Notes Pharmacy verified in [facility] Patient has been identified by name and date of : Yes Patient aware RX will be sent to pharmacy. No need to notify patient. Pharmacy phones for refill(s): Pending Prescriptions Disp Refills POTASSIUM CHLORIDE ER 20 MEQ TABLET,EXTENDED RELEASE(PART/CRYST) 120 tablet 2 Sig: take 1 tablet by mouth four times a day LITZY: Yes Date of last office visit : 12/18/2020 Date of next office visit : Visit date not found Last 2 Encounter Wt Readings: Date: Wt: 12/18/2020 149.7 kg (330 lb 1.6 oz) 06/21/2020 144.7 kg (319 lb) Please advise. documented in this encounter [facility] 06-20-2021 Miscellaneous Notes Last appointment: 12/18/20 Next appointment: n/a Pharmacy verified in [facility]. Refill(s) requested: Pending Prescriptions Disp Refills MAGNESIUM OXIDE 400 MG (241.3 MG MAGNESIUM) TABLET 90 tablet 0 Sig: take 1 tablet by mouth once daily LITZY: Yes Order(s) pended. Please advise. Mar Pittman LPN documented in this encounter [facility] 06-02-2021 Miscellaneous Notes Last appointment: 12-18-20 Next appointment: na Pharmacy verified in [facility]. Refill(s) requested: Pending Prescriptions Disp Refills SPIRONOLACTONE 25 MG TABLET 15 tablet 1 Sig: take 1/2 tablet by mouth once daily LITZY: Yes Order(s) pended. Please advise. Amanda Perez MA, [employer] 22 documented in this encounter [facility] documented as of this encounter (statuses as of 06/02/2021) [facility] History of Past illness Narrative* Problem Noted Date Resolved Date Chronic right SI joint pain 07/13/2018 07/0 10/2018 Subluxation of right sternoclavicular joint 11/201611/28/2017 Sternoclavicular joint subluxation 07/16/2016 10/01/2016 Fracture of right clavicle 11/15/201510/01 Hypocalcemia 12/19/2014 10/01/2016 Overview: Ca 6.1 and Ionized Ca of 1. Replaced with 2 gram CaGluc in ER and repeated on the floor at 10PM. 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 01/31/2014 Onychia and paronychia of toe 09/04/2010 Hirsutism 06/06/2010 04/11/2014 Eating disorder NEC 01/07/2010 04/11/2014 Complex endometrial hyperplasia without atypia 0 05/09/2008 02/25/2009 Hypokalemia 04/18/2007 12/20/2014 Endometrial hyperplasia with atypia 01/15/2006 05/09/2008 Hyperparathyroidism, unspecified 11/26/2005 01/07/2007 Primary hyperparathyroidism 06/15/200504/2006 Dysmenorrhea 02/25/2009 Irregular menstrual cycle 2008 Overview: Irregular periods documented as of this encounter (statuses as of 06/20/2021) [facility] History of Past illness Narrative* Problem Noted Date Resolved Date Chronic right SI joint pain 07/13/201810/2018 Subluxation of right sternoclavicular joint 11/201611/28/2017 Sternoclavicular joint subluxation 07/16/2016 10/01/2016 Fracture of right clavicle 11/15/201510/01 Hypocalcemia 12/19/2014 10/01/2016 Overview: Ca 6.1 and Ionized Ca of 1. Replaced with 2 gram CaGluc in ER and repeated on the floor at 10PM. 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 01/31/2014 Onychia and paronychia of toe 09/04/2010 Hirsutism 06/06/2010 04/11/2014 Eating disorder NEC 01/07/2010 04/11/2014 Complex endometrial hyperplasia without atypia 0 05/09/2008 02/25/2009 Hypokalemia 04/18/2007 12/20/2014 Endometrial hyperplasia with atypia 01/15/2006 05/09/2008 Hyperparathyroidism, unspecified 11/26/2005 01/07/2007 Primary hyperparathyroidism 06/15/200504/2006 Dysmenorrhea 02/25/2009 Irregular menstrual cycle 2008 Overview: Irregular periods documented as of this encounter (statuses as of 08/05/2021) [facility] History of Past illness Narrative* Problem Noted Date Resolved Date Chronic right SI joint pain 07/13/201810/2018 Subluxation of right sternoclavicular joint 11/201611/28/2017 Sternoclavicular joint subluxation 07/16/2016 10/01/2016 Fracture of right clavicle 11/15/201510/01 Hypocalcemia 12/19/2014 10/01/2016 Overview: Ca 6.1 and Ionized Ca of 1. Replaced with 2 gram CaGluc in ER and repeated on the floor at 10PM. 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 01/31/2014 Onychia and paronychia of toe 09/04/2010 Hirsutism 06/06/2010 04/11/2014 Eating disorder NEC 01/07/2010 04/11/2014 Complex endometrial hyperplasia without atypia 0 05/09/2008 02/25/2009 Hypokalemia 04/18/2007 12/20/2014 Endometrial hyperplasia with atypia 01/15/2006 05/09/2008 Hyperparathyroidism, unspecified 11/26/2005 01/07/2007 Primary hyperparathyroidism 06/15/200504/2006 Dysmenorrhea 02/25/2009 Irregular menstrual cycle 2008 Overview: Irregular periods documented as of this encounter (statuses as of 09/01/2021) [facility] History of Past illness Narrative* Problem Noted Date Resolved Date Chronic right SI joint pain 07/13/201810/2018 Subluxation of right sternoclavicular joint 11/201611/28/2017 Sternoclavicular joint subluxation 07/16/2016 10/01/2016 Fracture of right clavicle 11/15/201510/01 Hypocalcemia 12/19/2014 10/01/2016 Overview: Ca 6.1 and Ionized Ca of 1. Replaced with 2 gram CaGluc in ER and repeated on the floor at 10PM. 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 01/31/2014 Onychia and paronychia of toe 09/04/2010 Hirsutism 06/06/2010 04/11/2014 Eating disorder NEC 01/07/2010 04/11/2014 Complex endometrial hyperplasia without atypia 0 05/09/2008 02/25/2009 Hypokalemia 04/18/2007 12/20/2014 Endometrial hyperplasia with atypia 01/15/2006 05/09/2008 Hyperparathyroidism, unspecified 11/26/2005 01/07/2007 Primary hyperparathyroidism 06/15/200504/2006 Dysmenorrhea 02/25/2009 Irregular menstrual cycle 2008 Overview: Irregular periods documented as of this encounter (statuses as of 09/08/2021) [facility] History of Past illness Narrative* Problem Noted Date Resolved Date Chronic right SI joint pain 07/13/201810/2018 Subluxation of right sternoclavicular joint 11/201611/28/2017 Sternoclavicular joint subluxation 07/16/2016 10/01/2016 Fracture of right clavicle 11/15/201510/01 Hypocalcemia 12/19/2014 10/01/2016 Overview: Ca 6.1 and Ionized Ca of 1. Replaced with 2 gram CaGluc in ER and repeated on the floor at 10PM. 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 01/31/2014 Onychia and paronychia of toe 09/04/2010 Hirsutism 06/06/2010 04/11/2014 Eating disorder NEC 01/07/2010 04/11/2014 Complex endometrial hyperplasia without atypia 0 05/09/2008 02/25/2009 Hypokalemia 04/18/2007 12/20/2014 Endometrial hyperplasia with atypia 01/15/2006 05/09/2008 Hyperparathyroidism, unspecified 11/26/2005 01/07/2007 Primary hyperparathyroidism 06/15/200504/2006 Dysmenorrhea 02/25/2009 Irregular menstrual cycle 2008 Overview: Irregular periods documented as of this encounter (statuses as of 10/07/2021) [facility] History of Past illness Narrative* Problem Noted Date Resolved Date Chronic right SI joint pain 07/13/201810/2018 Subluxation of right sternoclavicular joint 11/201611/28/2017 Sternoclavicular joint subluxation 07/16/2016 10/01/2016 Fracture of right clavicle 11/15/201510/01 Hypocalcemia 12/19/2014 10/01/2016 Overview: Ca 6.1 and Ionized Ca of 1. Replaced with 2 gram CaGluc in ER and repeated on the floor at 10PM. 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 01/31/2014 Onychia and paronychia of toe 09/04/2010 Hirsutism 06/06/2010 04/11/2014 Eating disorder NEC 01/07/2010 04/11/2014 Complex endometrial hyperplasia without atypia 0 05/09/2008 02/25/2009 Hypokalemia 04/18/2007 12/20/2014 Endometrial hyperplasia with atypia 01/15/2006 05/09/2008 Hyperparathyroidism, unspecified 11/26/2005 01/07/2007 Primary hyperparathyroidism 06/15/200504/2006 Dysmenorrhea 02/25/2009 Irregular menstrual cycle 2008 Overview: Irregular periods documented as of this encounter (statuses as of 10/31/2021) [facility] History of Past illness Narrative* Problem Noted Date Resolved Date Chronic right SI joint pain 07/13/201810/2018 Subluxation of right sternoclavicular joint 11/201611/28/2017 Sternoclavicular joint subluxation 07/16/2016 10/01/2016 Fracture of right clavicle 11/15/201510/01 Hypocalcemia 12/19/2014 10/01/2016 Overview: Ca 6.1 and Ionized Ca of 1. Replaced with 2 gram CaGluc in ER and repeated on the floor at 10PM. 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 01/31/2014 Onychia and paronychia of toe 09/04/2010 Hirsutism 06/06/2010 04/11/2014 Eating disorder NEC 01/07/2010 04/11/2014 Complex endometrial hyperplasia without atypia 0 05/09/2008 02/25/2009 Hypokalemia 04/18/2007 12/20/2014 Endometrial hyperplasia with atypia 01/15/2006 05/09/2008 Hyperparathyroidism, unspecified 11/26/2005 01/07/2007 Primary hyperparathyroidism 06/15/200504/2006 Dysmenorrhea 02/25/2009 Irregular menstrual cycle 2008 Overview: Irregular periods documented as of this encounter (statuses as of 12/08/2021) [facility] History of Past illness Narrative* Problem Noted Date Resolved Date Chronic right SI joint pain 07/13/201810/2018 Subluxation of right sternoclavicular joint 11/201611/28/2017 Sternoclavicular joint subluxation 07/16/2016 10/01/2016 Fracture of right clavicle 11/15/201510/01 Hypocalcemia 12/19/2014 10/01/2016 Overview: Ca 6.1 and Ionized Ca of 1. Replaced with 2 gram CaGluc in ER and repeated on the floor at 10PM. 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 01/31/2014 Onychia and paronychia of toe 09/04/2010 Hirsutism 06/06/2010 04/11/2014 Eating disorder NEC 01/07/2010 04/11/2014 Complex endometrial hyperplasia without atypia 0 05/09/2008 02/25/2009 Hypokalemia 04/18/2007 12/20/2014 Endometrial hyperplasia with atypia 01/15/2006 05/09/2008 Hyperparathyroidism, unspecified 11/26/2005 01/07/2007 Primary hyperparathyroidism 06/15/200504/2006 Dysmenorrhea 02/25/2009 Irregular menstrual cycle 2008 Overview: Irregular periods documented as of this encounter (statuses as of 02/24/2022) [facility] History of Past illness Narrative* Problem Noted Date Resolved Date Chronic right SI joint pain 07/13/201810/2018 Subluxation of right sternoclavicular joint 11/201611/28/2017 Sternoclavicular joint subluxation 07/16/2016 10/01/2016 Fracture of right clavicle 11/15/201510/01 Hypocalcemia 12/19/2014 10/01/2016 Overview: Ca 6.1 and Ionized Ca of 1. Replaced with 2 gram CaGluc in ER and repeated on the floor at 10PM. 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 01/31/2014 Onychia and paronychia of toe 09/04/2010 Hirsutism 06/06/2010 04/11/2014 Eating disorder NEC 01/07/2010 04/11/2014 Complex endometrial hyperplasia without atypia 0 05/09/2008 02/25/2009 Hypokalemia 04/18/2007 12/20/2014 Endometrial hyperplasia with atypia 01/15/2006 05/09/2008 Hyperparathyroidism, unspecified 11/26/2005 01/07/2007 Primary hyperparathyroidism 06/15/200504/2006 Dysmenorrhea 02/25/2009 Irregular menstrual cycle 2008 Overview: Irregular periods documented as of this encounter (statuses as of 05/22/2022) [facility] History of Past illness Narrative* Problem Noted Date Resolved Date Chronic right SI joint pain 07/13/201810/2018 Subluxation of right sternoclavicular joint 11/201611/28/2017 Sternoclavicular joint subluxation 07/16/2016 10/01/2016 Fracture of right clavicle 11/15/201510/01 Hypocalcemia 12/19/2014 10/01/2016 Overview: Ca 6.1 and Ionized Ca of 1. Replaced with 2 gram CaGluc in ER and repeated on the floor at 10PM. 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 01/31/2014 Onychia and paronychia of toe 09/04/2010 Hirsutism 06/06/2010 04/11/2014 Eating disorder NEC 01/07/2010 04/11/2014 Complex endometrial hyperplasia without atypia 0 05/09/2008 02/25/2009 Hypokalemia 04/18/2007 12/20/2014 Endometrial hyperplasia with atypia 01/15/2006 05/09/2008 Hyperparathyroidism, unspecified 11/26/2005 01/07/2007 Primary hyperparathyroidism 06/15/200504/2006 Dysmenorrhea 02/25/2009 Irregular menstrual cycle 2008 Overview: Irregular periods documented as of this encounter (statuses as of 06/11/2022) [facility] History of Past illness Narrative* Problem Noted Date Resolved Date Chronic right SI joint pain 07/13/201810/2018 Subluxation of right sternoclavicular joint 11/201611/28/2017 Sternoclavicular joint subluxation 07/16/2016 10/01/2016 Fracture of right clavicle 11/15/201510/01 Hypocalcemia 12/19/2014 10/01/2016 Overview: Ca 6.1 and Ionized Ca of 1. Replaced with 2 gram CaGluc in ER and repeated on the floor at 10PM. 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 01/31/2014 Onychia and paronychia of toe 09/04/2010 Hirsutism 06/06/2010 04/11/2014 Eating disorder NEC 01/07/2010 04/11/2014 Complex endometrial hyperplasia without atypia 0 05/09/2008 02/25/2009 Hypokalemia 04/18/2007 12/20/2014 Endometrial hyperplasia with atypia 01/15/2006 05/09/2008 Hyperparathyroidism, unspecified 11/26/2005 01/07/2007 Primary hyperparathyroidism 06/15/200504/2006 Dysmenorrhea 02/25/2009 Irregular menstrual cycle 2008 Overview: Irregular periods documented as of this encounter (statuses as of 07/01/2022) [facility] History of Past illness Narrative* Problem Noted Date Resolved Date Chronic right SI joint pain 07/13/201810/2018 Subluxation of right sternoclavicular joint 11/201611/28/2017 Sternoclavicular joint subluxation 07/16/2016 10/01/2016 Fracture of right clavicle 11/15/201510/01 Hypocalcemia 12/19/2014 10/01/2016 Overview: Ca 6.1 and Ionized Ca of 1. Replaced with 2 gram CaGluc in ER and repeated on the floor at 10PM. 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 01/31/2014 Onychia and paronychia of toe 09/04/2010 Hirsutism 06/06/2010 04/11/2014 Eating disorder NEC 01/07/2010 04/11/2014 Complex endometrial hyperplasia without atypia 0 05/09/2008 02/25/2009 Hypokalemia 04/18/2007 12/20/2014 Endometrial hyperplasia with atypia 01/15/2006 05/09/2008 Hyperparathyroidism, unspecified 11/26/2005 01/07/2007 Primary hyperparathyroidism 06/15/200504/2006 Dysmenorrhea 02/25/2009 Irregular menstrual cycle 2008 Overview: Irregular periods documented as of this encounter (statuses as of 08/26/2022) [facility] History of Past illness Narrative* Problem Noted Date Diagnosed Date Resolved Date Chronic right SI joint pain 07/13/2018 09/12/2018 Subluxation of right sternoclavicular joint 10/14/2016 11/28/2017 Sternoclavicular joint subluxation 07/16/2016 10/01/2016 Fracture of right clavicle 11/15/2015 0 10/01/2016 Hypocalcemia 12/19/2014 10/01/2016 Overview: Ca 6.1 and Ionized Ca of 1. Replaced with 2 gram CaGluc in ER and repeated on the floor at 10PM. Consult Dr Vann IFG (impaired fasting glucose) 05/08/2014 10/03/2016 Other complications due to o ther internal orthopedic device, implant, and graft 01/21/2011 Nonunion of fracture 12/10/2010 014 Onychia and paronychia of toe 09/04/2010 01/31/2014 Hirsutism 06/06/2010 04/11/2014 Eating disorder NEC 01/07/2010 04/11/19 15 Complex endometrial hyperpla zuleyma without atypia 05/09/2008 02/25/2009 Hypokalemia 04/18/2007 12/20/2014 Endometrial hyperplasia with atypia 01/15/2006 05/09/2008 Hyperparathyroidism, unspecified 11/26/2005 01/07/2007 Primary hyperparathyroidism 06/15/2005 01/07/2007 Dysmenorrhea 02/25/2009 Irregular menstrual cycle Overview: Irregular periods documented as of this encounter (statuses as of 10/09/2022) [facility] History of Past illness Narrative* Problem Noted Date Diagnosed Date Resolved Date Chronic right SI joint pain 07/13/2018 09/12/2018 Subluxation of right sternoclavicular joint 10/14/2016 11/28/2017 Sternoclavicular joint subluxation 07/16/2016 10/01/2016 Fracture of right clavicle 11/15/2015 0 10/01/2016 Hypocalcemia 12/19/2014 10/01/2016 Overview: Ca 6.1 and Ionized Ca of 1. Replaced with 2 gram CaGluc in ER and repeated on the floor at 10PM. Consult Dr Vann IFG (impaired fasting glucose) 05/08/2014 10/03/2016 Other complications due to o ther internal orthopedic device, implant, and graft 01/21/2011 Nonunion of fracture 12/10/2010 014 Onychia and paronychia of toe 09/04/2010 01/31/2014 Hirsutism 06/06/2010 04/11/2014 Eating disorder NEC 01/07/2010 04/11/19 15 Complex endometrial hyperpla zuleyma without atypia 05/09/2008 02/25/2009 Hypokalemia 04/18/2007 12/20/2014 Endometrial hyperplasia with atypia 01/15/2006 05/09/2008 Hyperparathyroidism, unspecified 11/26/2005 01/07/2007 Primary hyperparathyroidism 06/15/2005 01/07/2007 Dysmenorrhea 02/25/2009 Irregular menstrual cycle Overview: Irregular periods documented as of this encounter (statuses as of 10/22/2022) [facility] History of Past illness Narrative* Problem Noted Date Diagnosed Date Resolved Date Chronic right SI joint pain 07/13/2018 09/12/2018 Subluxation of right sternoclavicular joint 10/14/2016 11/28/2017 Sternoclavicular joint subluxation 07/16/2016 10/01/2016 Fracture of right clavicle 11/15/2015 0 10/01/2016 Hypocalcemia 12/19/2014 10/01/2016 Overview: Ca 6.1 and Ionized Ca of 1. Replaced with 2 gram CaGluc in ER and repeated on the floor at 10PM. Consult Dr Vann IFG (impaired fasting glucose) 05/08/2014 10/03/2016 Other complications due to o ther internal orthopedic device, implant, and graft 01/21/2011 Nonunion of fracture 12/10/2010 014 Onychia and paronychia of toe 09/04/2010 01/31/2014 Hirsutism 06/06/2010 04/11/2014 Eating disorder NEC 01/07/2010 04/11/19 15 Complex endometrial hyperpla zuleyma without atypia 05/09/2008 02/25/2009 Hypokalemia 04/18/2007 12/20/2014 Endometrial hyperplasia with atypia 01/15/2006 05/09/2008 Hyperparathyroidism, unspecified 11/26/2005 01/07/2007 Primary hyperparathyroidism 06/15/2005 01/07/2007 Dysmenorrhea 02/25/2009 Irregular menstrual cycle Overview: Irregular periods documented as of this encounter (statuses as of 01/10/2023) [facility] [place] [facility] Diagnosis Hypokalemia Hypopotassemia Swelling Edema [facility] [place] [facility] Diagnosis Hypokalemia Hypopotassemia Swelling Edema [facility] this [facility] [place] [facility]* Diagnosis Hypokalemia Hypopotassemia documented in this encounter [facility]* Diagnosis Encounter for screening mammogram for breast cancer documented [facility] encounter [facility] [place] [facility]* Diagnosis Leg swelling Swelling of limb [facility] this encounter 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 documented in [facility] [place] [facility] Diagnosis 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 Obesity, Class III, BMI 40-49.9 (morbid obesity) (HCC) Morbid obesity [facility] [place] [facility] Diagnosis URI with cough and congestion- Primary Acute conjunctivitis of left eye, unspecified acute conjunctivitis type documented in this [facility] [place] [facility]* Diagnosis 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 Hyperparathyroidism (HCC) Hyperparathyroidism, unspecified documented [facility] [place] [facility]* Diagnosis Malignant neoplasm of head of pancreas (HCC) Malignant neoplasm of head of pancreas documented in this encounter [facility] for referral (narrative)* Diagnostic Procedure Only (Routine) - Pending Review Specialty Diagnoses / Procedures Referred By Penny t Referred To Contact [facility] Diagnoses Encounter for screening mammogram for breast cancer Procedures LEXI SCREENING SCREENING MAMMOGRAPHY BI 2-VIEW BREAST INC CAD Bret Salomon MD [address] [place] [address] [facility] [address] [place] [address] Referral ID Status Reason Start Date Expiration Date Visits Requested Visits Authorized [id number] Pending Review Auto-Generat ed Referral 09/03/2021 10/03/2022 1 1 [facility] Summary Purpose Family History No Family History Records FoundNo Family History Records FoundNo Family History Records FoundNo Family History Records Found Advance Directives Documents on File Type Date Recorded Patient Healthcare Translator Expl anation Advance Directive(s) Advance Directive(s) 10/24/2018 11:36 AM Advance Directive(s) 10/15/2018 3:28 PM Advance Directive(s) 08/30/2018 6:43 PM Advance Directive(s) 08/04/2018 1:52 PM Advance Directive(s) 05/24/2018 12:12 PM Advance Directive(s) 04/19/2018 9:49 AM Advance Directive(s) 06/07/2017 4:23 PM Advance Directive(s) 10/14/2016 10:16 AM Advance Directive(s) 10/14/2016 12:51 PM Documents on File Type Date Recorded Patient Healthcare Translator Expl anation Advance Directive(s) Advance Directive(s) 10/24/2018 11:36 AM Advance Directive(s) 10/15/2018 3:28 PM Advance Directive(s) 08/30/2018 6:43 PM Advance Directive(s) 08/04/2018 1:52 PM Advance Directive(s) 05/24/2018 12:12 PM Advance Directive(s) 04/19/2018 9:49 AM Advance Directive(s) 06/07/2017 4:23 PM Advance Directive(s) 10/14/2016 10:16 AM Advance Directive(s) 10/14/2016 12:51 PM Documents on File Type Date Recorded Patient Healthcare Translator Expl anation Advance Directive(s) 10/14/2016 12:51 PM Documents on File Type Date Recorded Patient Healthcare Translator Expl anation Advance Directive(s) 10/14/2016 12:51 PM Reason for Referral Specialty Diagnoses / Procedures Referred By Contac t Referred To Contact CT IMAGING Diagnoses Malignant neoplasm of head of pancreas (HCC) Procedures CT PANCREAS W IVCON CT ABDOMEN W/CONTRAST Johanny Sigala MD [address] [place] [address] Ct Imaging [facility]95 Referral ID Status Reason Start Date Expiration Date V isits Requested Visits Authorized [id number] Closed Auto-Generat ed Referral Patient Cleared - Admin/Chairm an/Director advise to proceed or did not respond 07/17/2022 09/15/2022 1 1 Additional Source Comments INFORMATION SOURCE (unrecogn ized section and content) DATE CREATED AUTHOR AUTHOR'S ORGANIZ ATION 06/02/2018 [facility] ([place] DATE CREATED AUTHOR AUTHOR'S ORGANIZ ATION 06/28/2020 [facility] DATE CREATED AUTHOR AUTHOR'S ORGANIZ ATION 10/10/2022 [facility] Source Comments (unrecognize d section and content) In the event this informatio n is protected by the Federal Confidentiality of Alcohol and Drug Abuse Patient Records regulations: The Federal rules restrict any use of the information to criminally investigate or prosecute any alcohol or drug abuse patient.[facility] the event this information is protected by the Federal Confidentiality of Alcohol and Drug Abuse Patient Records regulations: The Federal rules restrict any use of the information to criminally investigate or prosecute any alcohol or drug abuse patient.[facility] the event this information is protected by the Federal Confidentiality of Alcohol and Drug Abuse Patient Records regulations: The Federal rules restrict any use of the information to criminally investigate or prosecute any alcohol or drug abuse patient.[facility] the event this information is protected by the Federal Confidentiality of Alcohol and Drug Abuse Patient Records regulations: The Federal rules restrict any use of the information to criminally investigate or prosecute any alcohol or drug abuse patient.[facility] the event this information is protected by the Federal Confidentiality of Alcohol and Drug Abuse Patient Records regulations: The Federal rules restrict any use of the information to criminally investigate or prosecute any alcohol or drug abuse patient.[facility] the event this information is protected by the Federal Confidentiality of Alcohol and Drug Abuse Patient Records regulations: The Federal rules restrict any use of the information to criminally investigate or prosecute any alcohol or drug abuse patient.[facility] the event this information is protected by the Federal Confidentiality of Alcohol and Drug Abuse Patient Records regulations: The Federal rules restrict any use of the information to criminally investigate or prosecute any alcohol or drug abuse patient.[facility] the event this information is protected by the Federal Confidentiality of Alcohol and Drug Abuse Patient Records regulations: The Federal rules restrict any use of the information to criminally investigate or prosecute any alcohol or drug abuse patient.[facility] the event this information is protected by the Federal Confidentiality of Alcohol and Drug Abuse Patient Records regulations: The Federal rules restrict any use of the information to criminally investigate or prosecute any alcohol or drug abuse patient.[facility] the event this information is protected by the Federal Confidentiality of Alcohol and Drug Abuse Patient Records regulations: The Federal rules restrict any use of the information to criminally investigate or prosecute any alcohol or drug abuse patient.[facility] the event this information is protected by the Federal Confidentiality of Alcohol and Drug Abuse Patient Records regulations: The Federal rules restrict any use of the information to criminally investigate or prosecute any alcohol or drug abuse patient.[facility] the event this information is protected by the Federal Confidentiality of Alcohol and Drug Abuse Patient Records regulations: The Federal rules restrict any use of the information to criminally investigate or prosecute any alcohol or drug abuse patient.[facility] Hospital[facility] the event this information is protected by the Federal Confidentiality of Alcohol and Drug Abuse Patient Records regulations: The Federal rules restrict any use of the information to criminally investigate or prosecute any alcohol or drug abuse patient.[facility] Hospital[facility] the event this information is protected by the Federal Confidentiality of Alcohol and Drug Abuse Patient Records regulations: The Federal rules restrict any use of the information to criminally investigate or prosecute any alcohol or drug abuse patient.[facility] the event this information is protected by the Federal Confidentiality of Alcohol and Drug Abuse Patient Records regulations: The Federal rules restrict any use of the information to criminally investigate or prosecute any alcohol or drug abuse patient.[facility] Hospital[facility] the event this information is protected by the Federal Confidentiality of Alcohol and Drug Abuse Patient Records regulations: The Federal rules restrict any use of the information to criminally investigate or prosecute any alcohol or drug abuse patient.[facility] Reason for Visit (unrecogniz ed section and content) Reason Onset Date Comments Refill Request 01/30/2022 Refill Request 02/24/2022 Reason Comments Hyperparathyroidism Reason Comments Conjunctivitis L eye, sinus pain an d congestion x3 days Reason Comments Radiology CT Specialty Diagnoses / Procedures Referred By Contac t Referred To Contact CT IMAGING Diagnoses Malignant neoplasm of head of pancreas (HCC) Procedures CT PANCREAS W IVCON CT ABDOMEN W/CONTRAST Johanny Sigala MD [address] [place] [address] [place] [id number] Referral ID Status Reason Start Date Expiration Date V isits Requested Visits Authorized [id number] Closed Auto-Generat ed Referral Patient Cleared - Admin/Chairm an/Director advise to proceed or did not respond 07/17/2022 09/15/2022 1 1 Care Teams (unrecognized sec tion and content) Material Scheduler Relationship Specialty Start Date End Date Bret Salomon MD [address] [place] [address] PCP - General Internal Medicine 12/23/15 Herman Vann MD [address] [address] Physician Endocrinology 12/26/14 [facility] [address] [facility] [address] 01/23/19 Material Scheduler Relationship Specialty Start Date End Date Bret Salomon MD [address] [place] [address] PCP - General Internal Medicine 12/23/15 Herman Vann MD [address] [place] [id number] Physician Endocrinology 12/26/14 [place] [facility] [address] [facility] [address] 01/23/19 Material Scheduler Relationship Specialty Start Date End Date Bret Salomon MD [address] [place] [address] PCP - General Internal Medicine 12/23/15 Herman Vann MD [address] [place] [address] Physician Endocrinology 12/26/14 [place] [facility] [address] [facility] [place] [address] 01/23/19 Material Scheduler Relationship Specialty Start Date End Date Bret Salomon MD [address] [place] [address] PCP - General Internal Medicine 12/23/15 Herman Vann MD [address] [place] [address] Physician Endocrinology 12/26/14 [place] [facility] [address] [place] [address] 01/23/19 Material Scheduler Relationship Specialty Start Date End Date Herman Vann MD [address] [place] [address] Physician Endocrinology 12/26/14 [place] [facility] [address] [place] [address] 01/23/19 Material Scheduler Relationship Specialty Start Date End Date Herman Vann MD [address] [place] [address] Physician Endocrinology 12/26/14 [facility] [address] [place] [address] 01/23/19 Material Scheduler Relationship Specialty Start Date End Date Herman Vann MD [address] [place] [address] Physician Endocrinology 12/26/14 [place] [facility] [address] [place] [address] 01/23/19 Material Scheduler Relationship Specialty Start Date End Date Herman Vann MD [address] [place] [address] Physician Endocrinology 12/26/14 [place] [facility] [address] [place] [address] 01/23/19 Material Scheduler Relationship Specialty Start Date End Date Herman Vann MD [address] [place] [address] Physician Endocrinology 12/26/14 [facility] [place] [facility] [address] [place] [address] 01/23/19 Material Scheduler Relationship Specialty Start Date End Date Herman Vann MD [address] [place] [address] Physician Endocrinology 12/26/14 [place] [facility] [address] [facility] [facility] [id number] 01/23/19 Material Scheduler Relationship Specialty Start Date End Date Herman Vann MD [address] [place] [address], [address] [place] [address] Physician Endocrinology 12/26/14 [facility] [address] [facility] [id number] 01/23/19 FOR RECORDS PERTAINING TO PATIENTS WHO ARE OR HAVE BEEN ENROLLED IN A CHEMICAL DEPENDENCY/SUBSTANCEABUSE PROGRAM, SOME INFORMATION MAY BE OMITTED. This clinical summary was aggregated from multiple sources. Caution should be exercised in using it in the provision of clinical care. This summary normalizes information from multiple sources, and as a consequence, information in this document may materially change the coding, format and clinical context of patient data. In addition, data may be omitted in some cases. CLINICAL DECISIONS SHOULD BE BASED ON THE PRIMARY CLINICAL RECORDS. [facility] [employer] [facility]. provides no warranty or guarantee of the accuracy or completeness of information in this document.
[2023-04-01 13:13] LABS: ALB/GLOB Ratio 0.8 RATIO (0.9-2.4); AST(SGOT) 21 U/L (15-37); Alanine Aminotransfer ALT/SGPT 20 U/L (13-56); Albumin, Serum 3.5 g/dL (3.2-5.0); Alkaline Phosphatase 118 U/L (45-117); Anion Gap 7 (5-15); BUN 17 mg/dL (7-18); BUN/Creat Ratio 13.2 RATIO (10-20); Calcium,Total 7.5 mg/dL (8.5-10.1); Chloride 99 mmol/L (98-107); Creatinine, Serum 1.29 mg/dL (0.55-1.02); EST Glomerular Filtration Rate 45 mL/min (>60); Est Glom Filt Rate - Afr Amer 55 mL/min (>60); Globulin 4.4 g/dL (2.2-4.2); Glucose 95 mg/dL (74-106); Protein, Total 7.9 g/dL (6.4-8.2); Sodium Level 136 mmol/L (136-145)
[2023-04-01 13:20] LABS: Ionized Calcium 4.05 mg/dL (4.36-5.20)
[2023-04-01 13:53] LABS: Cholesterol 192 mg/dL (200); High Density Lipoprotein 87 mg/dL; Triglycerides 83 mg/dL; Very Low Density Lipoprotein 17 mg/dL (5-40)
== END | disposition home or self-care (01) ==
LOC: BIMLAB 11:21
PROVIDERS: PCP Internal Medicine; Referring Provider Nurse Practitioner Family; Visit Provider Nurse Practitioner Family
DX: E83.51 Hypocalcemia (principal); E66.01 Morbid (severe) obesity due to excess calories; E78.2 Mixed hyperlipidemia
CPT/HCPCS: 36415; 80053; 80061; 82330

== ENCOUNTER → 2023-04-07 | Outpatient (CLI) | payer MEDICARE, MEDICAID, SELFPAY ==
--- NOTE | 2023-04-07 12:02 | BI_ITS ---
MAMMOGRAPHY - BILATERAL SCREENING REASON FOR EXAM: Female, 57 years old. Routine annual screening examination. PERTINENT HISTORY: Non-contributory. TECHNIQUE: Digital bilateral breast celeste (3D mammographic acquisition) in the CC and MLO projections. 2-D mediolateral oblique (MLO) and craniocaudad (CC) views of both breasts were obtained. CAD: Full Field Digital Mammography with Computer Added Detection was performed. COMPARISON: Comparison is made with prior outside examination December 17, 2021. FINDINGS: Breast Composition: The breasts are almost entirely fatty. There are no dominant masses or suspicious calcifications. No other significant abnormalities are identified. There has been no significant change since the prior study. BI/SCRN MAMM (CAD)W/CELESTE BILAT IMPRESSION: Stable bilateral screening mammogram. Yearly follow-up mammogram recommended. (A) ASSESSMENT CATEGORY: BIRADS Category 1: Negative. A letter regarding these results will be sent to the patient by the facility within 30 days. Approximately 10% of breast cancers are not detected by mammography. A normal mammogram should not delay biopsy of a clinically suspicious abnormality. [id number] Electronically Signed: Nick Avery MD at 10:11 EST ,
== END | disposition home or self-care (01) ==
LOC: OPBI 12:02
PROVIDERS: PCP Internal Medicine; Referring Provider Internal Medicine; Visit Provider Internal Medicine
DX: Z12.31 Encounter for screening mammogram for malignant neoplasm of breast (principal)
CPT/HCPCS: 77063; 77067

== ENCOUNTER → 2023-04-22 | Outpatient (CLI) | payer MEDICARE, MEDICAID, SELFPAY ==
--- OUTSIDE RECORDS SUMMARY | 2023-04-22 12:50 | XMS RPT_ITS | CCD ---
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 Name Role Phone VAHID MAY Attending Unavailable KEITH YAN Primary Care Unavailable VAHID MAY Attending Unavailable KEITH YAN Primary Care Unavailable Herman Vann MD Unavailable Bret Salomon MD Primary Care Provider Herman Vann MD Unavailable Herman Vann MD Unavailable SIPCOLIN JOHANNY Referring Unavailable SIPERSTEIN, JOHANNY Referring Unavailable BLETSIS, JD Referring Unavailable SIPERSTEIN, JOHANNY Referring Unavailable SIPERSTEIN, JOHANNY Attending Unavailable Allergies Allergy Classification Reported Allergen(s) Allergy Type Date of Onset Reaction(s) Facility (17 sources) Contrast media; Translations: [CONTRAST DYE] Drug Allergy 10-22-2007 Rash [facility] (17 sources) ferrous gluconate; Translations: [FERROUS GLUCONATE] Drug Allergy 06-14-2012 GI Upset [facility] Work Phone: (17 sources) Morphine; Translations: [MORPHINE] Drug Allergy 05-14-2005 Rash [facility] (17 sources) Ondansetron; Translations: [ONDANSETRON] Drug Allergy 02-22-2018 Other: See Comments [facility] (17 sources) oxyCODONE; Translations: [OXYCODONE HCL] Drug Allergy 01-07-2007 Rash, Swelling [facility] (17 sources) Propranolol; Translations: [PROPRANOLOL] Drug Allergy 04-02-2017 Itching [facility] Work Phone: Medications Current Medications Medication [...] albuminuria creatinine ratio less than 30 mg/g ([facility])] Onset: 3 Chronic ulcer of skin (16 [...] 98.2 [degF] Nallely Garcia APRN.CNP Work Phone: [facility] 10-09-2022 09:56-0400 Body weight 134.26 kg Nallely Garcia APRN.CNP Work Phone: [facility] 10-09-2022 09:56-0400 Diastolic blood pressure 64 mm[Hg] Nallely Garcia APRN.CNP Work Phone: [facility] 10-09-2022 09:56-0400 Heart rate 99 /min Nallely Jose DATABASE ADMINISTRATOR.LAY MIDWIFE Work Phone: [facility] 10-09-2022 09:56-0400 Respiratory rate 18 /min Nallely Jose DATABASE ADMINISTRATOR.LAY MIDWIFE Work Phone: [facility] 10-09-2022 09:56-0400 SaO2% (BldA) [Mass fraction] 94 % Nallely Jose DATABASE ADMINISTRATOR.LAY MIDWIFE Work Phone: [facility] 10-09-2022 09:56-0400 Systolic blood pressure 108 mm[Hg] Nallely Jose DATABASE ADMINISTRATOR.[facility] Work Phone: [facility] Encounters Encounter Date Encounter Type Care Provider Facility Start: 10-21-2022 Orders Only Johanny Guerrero in Work Phone: Endocrine Surgery Procedures Date Procedure [...] Detail Author Start: 06-30-2028 Urine microalbumin profile [facility] Start: 10-06-2025 DIABETES SCREEN DIABETES SCREEN [facility] Start: 10-06-2025 Diabetes Screening Diabetes Screenin g [facility] Start: 07-12-2025 Lipid 1996 panel - S shira or Plasma Lipid Screening [facility] Start: 07-12-2025 LIPID SCREEN LIPID SCREEN [facility] Start: 06-12-2025 DIABETES SCREEN DIABETES SCREEN [facility] Start: 02-28-2024 DIABETES SCREEN DIABETES SCREEN [facility] Start: 10-10-2023 BP CONTROLLED (<130/80) BP CON TROLLED (<130/80) [facility] Start: 10-07-2023 SERUM CREATININE SERUM CREATININE [facility] Start: 08-09-2023 End: 10-09-2023 C peptide [Mass/volume] in Serum or Plasma C-PEPTIDE BLD Lab Routine MEN1 (multiple endocrine neoplasia) (HCC) Expected: 08/09/2023 (Approximate), Expires: 10/09/2023 [facility] Work Phone: Immunizations Immunization Date Immunization Notes Care Provider Fa prashant 12-18-2020 influenza, injectabl e, quadrivalent, contains preservative Bret Salomon MD Work Phone: [facility] 12-18-2020 influenza virus vacc ine, unspecified formulation Ct (I-Stat) Work Phone: [facility] 11-22-2018 influenza, injectabl e, quadrivalent, contains preservative Bret Salomon MD Work Phone: [facility] 06-30-2018 tetanus toxoid, redu marciano diphtheria toxoid, and acellular pertussis vaccine, adsorbed Bret Salomon MD Work Phone: [facility] 11-26-2017 influenza, injectabl e, quadrivalent, contains preservative Bret Salomon MD Work Phone: [facility] 05-12-2017 pneumococcal conjuga te vaccine, 13 valent Bret Salomon MD Work Phone: [facility] 01-13-2017 influenza, injectabl e, quadrivalent, contains preservative Bret Salomon MD Work Phone: [facility] 11-15-2015 influenza, injectabl e, quadrivalent, contains preservative Bret Salomon MD Work Phone: [facility] 11-15-2015 pneumococcal polysaccharide vaccine, 23 valent Bret Salomon MD Work Phone: [facility] 12-18-2014 influenza, seasonal, injectable Bret Salomon MD Work Phone: [facility] 01-12-2013 influenza virus vacc ine, unspecified formulation Bret Salomon MD Work Phone: [facility] 12-15-2011 influenza virus vacc ine, unspecified formulation Bret Salomon MD Work Phone: [facility] 12-15-2011 tetanus toxoid, redu marciano diphtheria toxoid, and acellular pertussis vaccine, adsorbed Bret Salomon MD Work Phone: [facility] 12-06-2008 pneumococcal polysaccharide vaccine, 23 valent Bret Salomon MD Work Phone: [facility] Work Phone: 01-07-2007 influenza virus vacc ine, unspecified formulation Bret Salomon MD Work Phone: [facility] 01-27-2006 influenza virus vacc ine, unspecified formulation Bret Salomon MD Work Phone: [facility] Payers Date Payer Category Payer [place] [id number] 2019-Present [phone] [address] [place] [address] Medicaid [id number] 2019 [place] [id number] 2019-Present [phone] [address] [place] [address] Medicaid [id number] 2018 Medicare [place] [id number] 2018-Present [phone] [address] [place] [address] O [id number] 2018 Medicare [place] [id number] 2018-Present [phone] [address] [place] [address] O [id number] 2017 Medicaid [id number] 2017 Medicare [id number] 1965 Unknown [id number] 1965 Unknown [id number] Social History Date Type Detail Facility Start: 11-24-2010 End: 10-09-2022 Tobacco smoking status NHIS Never smoked tobacco [facility] Start: 12-18-2020 End: 10-09-2022 Alcohol intake Current drinker of alcohol (finding) [facility] Start: 08-17-2019 End: 03-06-2020 History SDOH Alcohol Frequency 1 [facility] Start: 05-02-2019 History SDOH Alcohol Std Drinks 98 [facility] Start: 01-29-2016 History SDOH Alcohol Comment occasionally - social [facility] Start: 03-20-2019 End: 08-17-2019 History SDOH Social Connections Phone 5 [facility] Start: 08-17-2019 End: 03-06-2020 History SDOH Social Connections Congregational 2 [facility] Start: 03-20-2019 End: 08-17-2019 History SDOH Physical Activity DPW 0 [facility] Start: 03-19-2019 Education 21 [facility] Start: 1965 Sex Assigned At Female [facility] Start: 11-24-2010 End: 10-09-2022 Tobacco use and exposure Smokeless tobacco non-user [facility] Work Phone: Start: 08-17-2019 End: 02-12-2020 History of Social function [facility] Start: 08-17-2019 End: 02-12-2020 Social connection and isolation panel [facility] Frequency of Communication with Friends and Family Not on file [facility] How often to you hav e a drink containing alcohol? Never [facility] Do you feel stress - tense, restless, nervous, or anxious, or unable to sleep at night because your mind is troubled all the time - these days [OSQ] Only a little [facility] (I/We) worried wheth er (my/our) food would run out before (I/we) got money to buy more. Never true [facility] In the past 12 month s, was there a time when you were not able to pay the mortgage or rent on time? No [facility] Start: 04-05-2020 Gender identity Identifies as female gender (finding) [facility] Medical Equipment Procedure Code Equipment Code Equipment Origin al Text Equipment Identifier Dates [id number] Implant - [id number] Start: 11-26-2010 Clinical Notes 07-13-2018 to 10-09-2022 Patient InstructionsNallely Garcia APRN.LAY MIDWIFE - 10/09/2022 10:04 AM Fran Sigala MD - 08/26/2022 9:52 AM Sydney Castro RT(Princess) - 07/17/2022 1:40 PM EDT Note Date & Type Note Facility 10-09-2022 Note HNO ID: [id number] Author: Nallely Garcia APRN.LAY MIDWIFE Service: ? Author Type: Nurse Practitioner Type: Progress Notes Filed: 10/09/2022 11:01 AM Note Text: Subjective The history is provided by the patient. No speech language pathology assistant was used. HPI Thuy White is a [...] 2004 with panic attacks Herpes genitalis Hypoparathyroidism ([facility]) parathyroid implant Left forearm Hypothyroidism 09/30/2018 IFG (impaired fasting glucose) 05/08/2014 Impaired fasting glucose Insomnia 03/16/2013 Iron deficiency anemia Irritable bowel syndrome 1997 diarrhea prone, dairy exacerbates MEN 1 (multiple endocrine neoplasia) ([facility]) Dr Vann [facility] [place] Morbid obesity ([facility]) 2006 s/p sleeve Dr Dale Obstructive sleep apnea fair complaince with CPAP Primary hyperparathyroidism ([facility]) 3 1 gland parathyroidectomy Renal insufficiency Sternoclavicular joint subluxation 07/16/2016 I have confirmed and edited as necessary, the [facility] Review of Systems Constitutional: Negative for chills [...] detail warranting prompt ER evaluation. MICK Garcia [facility] 10-09-2022 Instructions Nallely Garcia APRN.CNP - 10/09/2022 [...] inability to swallow. documented in this encounter [facility] 10-09-2022 History of Present illness Narrative Subjective The history is provided by the patient. No speech language pathology assistant was used. HPI Thuy White is a [...] dairy exacerbates MEN 1 (multiple endocrine [facility]asia[facility] ([facility]) 2006 s/p sleeve Dr Dale Obstructive sleep apnea fair complaince with CPAP Primary hyperparathyroidism ([facility]) 3 1/2 gland parathyroidectomy Renal insufficiency Sternoclavicular joint subluxation 07/16/2016 I have confirmed and edited as necessary, the [facility] Review of Systems Constitutional: Negative for chills [...] in detail warranting prompt ER evaluation. Jose, DATABASE ADMINISTRATOR.LAY MIDWIFE documented in this encounter [facility] 08-26-2022 Note HNO ID: [id number] Author: Johanny Sigala MD Service: Endocrine Surgery Author Type: Physician Type: Progress Notes Filed: 08/28/2022 6:40 AM Note Text: [facility] Endocrinology Metabolism [place] [facility] Johanny Sigala M.D. Auto Service Instructor, Endocrine Surgery gps field data collector [address] [place] [address] NAME: THUY WHITE [facility] NO: [id number] DATE OF SERVICE: 08/26/2022 I had a virtual visit with your patient, Thuy White, for ongoing management of her multiple endocrine [...] questions. JOHANNY SIGALA M.D. AES/089 Audio #: [id number] cc: Herman Vann MD [address] [place] [address], [address] [place] [id number] Bret Salomon MD [address] [place] [id number] Date Dictated: 08/26/2022 09:50:46 Date Typed: 08/27/2022 09:34:41 Date Revised: [facility] 08-26-2022 Note HNO ID: [id number] Author: Johanny Sigala MD Service: ? Author Type: Physician Type: Progress Notes Filed: 08/26/2022 9:53 AM Note Text: This office note has been dictated. Johanny Sigala MD I have communicated my name and active licensure. The patient's identity and physical location were verified at the time of this visit. Either the patient or their legal retail representative has been informed of the risks and benefits of -- and alternatives to -- treatment through a remote evaluation and consents to proceed with the evaluation remotely. [facility] 08-26-2022 History of Present illness Narrative This office note has been dictated. Johanny Sigala MD I have communicated my name and active licensure. The patient's identity and physical location were verified at the time of this visit. Either the patient or their legal retail representative has been informed of the risks and benefits of -- and alternatives to -- treatment through a remote evaluation and consents to proceed with the evaluation remotely. documented in this encounter [facility] 07-17-2022 Note HNO ID: [id number] Author: RT Maya(R) Service: ? Author Type: Linen Clerk Type: Progress Notes Filed: 07/17/2022 2:28 PM [...] DATE: July 17, 2022 TIME: 2:27 PM [facility] 07-17-2022 History of Present illness Narrative Radiology [...] TIME: 2:27 PM documented in this encounter [facility] 02-11-2022 Miscellaneous Notes Called patient to schedule-no answer. Left voicemail notifying patient she needs an appt prior to additional refills. Please verify PCP and assist in scheduling when she calls back. Linh Saini Please clarify PCP and schedule accordingly. Last appointment: 12/18/20 Next appointment: None Pharmacy verified in [facility]. Refill(s) requested: Requested Prescriptions Pending Prescriptions Disp Refills omeprazole (PRILOSEC) 20 mg capsule 180 capsule 3 Sig: Take 1 capsule by mouth twice daily. Order(s) pended. Please advise. Holly Jarrett LPN, CMA documented in this encounter [facility] 12-08-2021 Miscellaneous Notes noted Patient no longer under Dr. Salomon care. Please have patient contact current PCP. Thanks, Yaneth Syed APRN.LAY MIDWIFE Pharmacy verified in [facility] Patient has been identified by name [...] Maddi Phelps MA documented in this encounter [facility] 10-31-2021 Miscellaneous Notes Called to notify [...] been out for three days. Prescribed by [facility] through [facility] that prescribed them advised that she has to get medication from PCP. 2. REFILLS REMAINING: None Last filled on September 24 at [facility] 3. EXPIRATION DATE: 4. PRESCRIBING HCP: Psychiatrist 5. SYMPTOMS: Difficulty sleeping without it. Protocols used: Medication Refill and Renewal [id number] documented in this encounter [facility] 10-07-2021 Miscellaneous Notes Spoke with patient and tried to schedule a follow up appt. Patient stated that she is looking into a new PCP in the [place] area closer to home. Patient denied scheduling and will be scheduling with new pcp. Patient due for follow up, please assist in scheduling. Yaneth Syed APRN.VANDA Pharmacy verified in [facility] Patient has been identified by name [...] 06/21/2020 144.7 kg (319 lb) Please advise. Marviel Mackay Ma documented in this encounter [facility] 09-01-2021 Miscellaneous Notes Pharmacy verified in [facility] Patient has been identified by name [...] lb) Please advise. documented in this encounter [facility] 06-20-2021 Miscellaneous Notes Last appointment: 12/18/20 Next appointment: n/a Pharmacy verified in [facility]. Refill(s) requested: Pending Prescriptions Disp Refills MAGNESIUM OXIDE 400 MG (241.3 MG MAGNESIUM) TABLET 90 tablet 0 Sig: take 1 tablet by mouth once daily LITZY: Yes Order(s) pended. Please advise. Mar Pittman LPN documented in this encounter [facility] 06-02-2021 Miscellaneous Notes Last appointment: 12-18-20 Next appointment: na Pharmacy verified in [facility]. Refill(s) requested: Pending Prescriptions Disp Refills SPIRONOLACTONE 25 MG TABLET 15 tablet 1 Sig: take 1/2 tablet by mouth once daily LITZY: Yes Order(s) pended. Please advise. Amanda Perez MA, DARKROOM WORKER 22 documented in this encounter [facility] documented as of this encounter (statuses as of 06/02/2021) [facility] History of Past illness Narrative* Problem [...] of this encounter (statuses as of 06/20/2021) [facility] History of Past illness Narrative* Problem [...] of this encounter (statuses as of 08/05/2021) [facility] History of Past illness Narrative* Problem [...] of this encounter (statuses as of 09/01/2021) [facility] History of Past illness Narrative* Problem [...] of this encounter (statuses as of 09/08/2021) [facility] History of Past illness Narrative* Problem [...] of this encounter (statuses as of 10/07/2021) [facility] History of Past illness Narrative* Problem [...] of this encounter (statuses as of 10/31/2021) [facility] of Past illness Narrative* Problem [...] of this encounter (statuses as of 12/08/2021) [facility] of Past illness Narrative* Problem [...] of this encounter (statuses as of 02/24/2022) [facility] of Past illness Narrative* Problem [...] of this encounter (statuses as of 05/22/2022) [facility] of Past illness Narrative* Problem [...] of this encounter (statuses as of 06/11/2022) [facility] of Past illness Narrative* Problem [...] of this encounter (statuses as of 07/01/2022) [facility] History of Past illness Narrative* Problem [...] of this encounter (statuses as of 08/26/2022) [facility] History of Past illness Narrative* Problem [...] of this encounter (statuses as of 10/09/2022) [facility] History of Past illness Narrative* Problem [...] of this encounter (statuses as of 10/22/2022) [facility] History of Past illness Narrative* Problem [...] of this encounter (statuses as of 01/10/2023) [facility] Diagnosis Hypokalemia Hypopotassemia Swelling Edema [facility] Diagnosis Hypokalemia Hypopotassemia Swelling Edema [facility] Diagnosis Hypokalemia Hypopotassemia documented in this encounter [facility] note* Diagnosis Encounter for screening mammogram for breast cancer documented in this encounter [facility] note* Diagnosis Leg swelling Swelling of limb [facility] Diagnosis Essential hypertension Unspecified essential hypertension [facility] Diagnosis Postsurgical hypoparathyroidism (HCC) Hypoparathyroidism [facility] Diagnosis 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 [facility] Diagnosis 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 Obesity, Class III, BMI 40-49.9 (morbid obesity) (HCC) Morbid obesity [facility] Diagnosis URI with cough and congestion- Primary Acute conjunctivitis of left eye, unspecified acute conjunctivitis type [facility] Diagnosis 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 Hyperparathyroidism (HCC) Hyperparathyroidism, unspecified [facility] Diagnosis Malignant neoplasm of head of pancreas (HCC) Malignant neoplasm of head of pancreas documented in this encounter [facility] for referral (narrative)* Diagnostic Procedure Only (Routine) - Pending Review Specialty Diagnoses / Procedures Referred By Penny t Referred To Contact [facility] Diagnoses Encounter for screening mammogram for breast cancer Procedures LEXI SCREENING SCREENING MAMMOGRAPHY BI 2-VIEW BREAST INC CAD Bret Salomon MD [address] [place] [address] Imaging [address] [place] [address] Referral ID Status Reason Start Date Expiration Date Visits Requested Visits Authorized [id number] Pending Review Auto-Generat ed Referral 09/03/2021 10/03/2022 1 1 [facility] Summary Purpose Family History No Family History Records FoundNo Family History Records FoundNo Family History Records FoundNo Family History Records Found Advance Directives Documents on File Type Date Recorded Patient Financial Foundations Representative Expl anation Advance Directive(s) Advance Directive(s) 10/24/2018 11:36 AM Advance Directive(s) 10/15/2018 3:28 PM Advance Directive(s) 08/30/2018 6:43 PM Advance Directive(s) 08/04/2018 1:52 PM Advance Directive(s) 05/24/2018 12:12 PM Advance Directive(s) 04/19/2018 9:49 AM Advance Directive(s) 06/07/2017 4:23 PM Advance Directive(s) 10/14/2016 10:16 AM Advance Directive(s) 10/14/2016 12:51 PM Documents on File Type Date Recorded Patient Financial Foundations Representative Expl anation Advance Directive(s) Advance Directive(s) 10/24/2018 11:36 AM Advance Directive(s) 10/15/2018 3:28 PM Advance Directive(s) 08/30/2018 6:43 PM Advance Directive(s) 08/04/2018 1:52 PM Advance Directive(s) 05/24/2018 12:12 PM Advance Directive(s) 04/19/2018 9:49 AM Advance Directive(s) 06/07/2017 4:23 PM Advance Directive(s) 10/14/2016 10:16 AM Advance Directive(s) 10/14/2016 12:51 PM Documents on File Type Date Recorded Patient Financial Foundations Representative Expl anation Advance Directive(s) 10/14/2016 12:51 PM Documents on File Type Date Recorded Patient Financial Foundations Representative Expl anation Advance Directive(s) 10/14/2016 12:51 PM Reason for Referral Specialty Diagnoses / Procedures Referred By Contac t Referred To Contact CT IMAGING Diagnoses Malignant neoplasm of head of pancreas (HCC) Procedures CT PANCREAS W IVCON CT ABDOMEN W/CONTRAST Johanny Sigala MD [address] [place] [address] Ct Imaging [facility] Referral ID Status Reason Start Date Expiration Date V isits Requested Visits Authorized [id number] Closed Auto-Generat ed Referral Patient Cleared - Admin/Chairm an/Director advise to proceed or did not respond 07/17/2022 09/15/2022 1 1 Additional Source Comments INFORMATION SOURCE (unrecogn ized section and content) DATE CREATED AUTHOR AUTHOR'S ORGANIZ ATION 06/02/2018 Formerly [facility], [facility] ([place]) DATE CREATED AUTHOR AUTHOR'S ORGANIZ ATION 06/28/2020 [facility] DATE CREATED AUTHOR AUTHOR'S ORGANIZ ATION 10/10/2022 [facility] Source Comments (unrecognize d section and content) In the event this informatio n is protected by the Federal Confidentiality of Alcohol and Drug Abuse Patient Records regulations: The Federal rules restrict any use of the information to criminally investigate or prosecute any alcohol or drug abuse patient.[facility] the event this information is protected by the Federal Confidentiality of Alcohol and Drug Abuse Patient Records regulations: The Federal rules restrict any use of the information to criminally investigate or prosecute any alcohol or drug abuse patient.[facility] the event this information is protected by the Federal Confidentiality of Alcohol and Drug Abuse Patient Records regulations: The Federal rules restrict any use of the information to criminally investigate or prosecute any alcohol or drug abuse patient.[facility] the event this information is protected by the Federal Confidentiality of Alcohol and Drug Abuse Patient Records regulations: The Federal rules restrict any use of the information to criminally investigate or prosecute any alcohol or drug abuse patient.[facility] Hospital[facility] the event this information is protected by the Federal Confidentiality of Alcohol and Drug Abuse Patient Records regulations: The Federal rules restrict any use of the information to criminally investigate or prosecute any alcohol or drug abuse patient.[facility] HospitalIn the event this information is protected by the Federal Confidentiality of Alcohol and Drug Abuse Patient Records regulations: The Federal rules restrict any use of the information to criminally investigate or prosecute any alcohol or drug abuse patient.[facility] HospitalIn the event this information is protected by the Federal Confidentiality of Alcohol and Drug Abuse Patient Records regulations: The Federal rules restrict any use of the information to criminally investigate or prosecute any alcohol or drug abuse patient.[facility] HospitalIn the event this information is protected by the Federal Confidentiality of Alcohol and Drug Abuse Patient Records regulations: The Federal rules restrict any use of the information to criminally investigate or prosecute any alcohol or drug abuse patient.[facility] Hospital[facility] the event this information is protected by the Federal Confidentiality of Alcohol and Drug Abuse Patient Records regulations: The Federal rules restrict any use of the information to criminally investigate or prosecute any alcohol or drug abuse patient.[facility] HospitalIn the event this information is protected by the Federal Confidentiality of Alcohol and Drug Abuse Patient Records regulations: The Federal rules restrict any use of the information to criminally investigate or prosecute any alcohol or drug abuse patient.[facility] HospitalIn the event this information is protected by the Federal Confidentiality of Alcohol and Drug Abuse Patient Records regulations: The Federal rules restrict any use of the information to criminally investigate or prosecute any alcohol or drug abuse patient.[facility] HospitalIn the event this information is protected by the Federal Confidentiality of Alcohol and Drug Abuse Patient Records regulations: The Federal rules restrict any use of the information to criminally investigate or prosecute any alcohol or drug abuse patient.[facility] HospitalIn the event this information is protected by the Federal Confidentiality of Alcohol and Drug Abuse Patient Records regulations: The Federal rules restrict any use of the information to criminally investigate or prosecute any alcohol or drug abuse patient.[facility] HospitalIn the event this information is protected by the Federal Confidentiality of Alcohol and Drug Abuse Patient Records regulations: The Federal rules restrict any use of the information to criminally investigate or prosecute any alcohol or drug abuse patient.[facility] HospitalIn the event this information is protected by the Federal Confidentiality of Alcohol and Drug Abuse Patient Records regulations: The Federal rules restrict any use of the information to criminally investigate or prosecute any alcohol or drug abuse patient.[facility] HospitalIn the event this information is protected by the Federal Confidentiality of Alcohol and Drug Abuse Patient Records regulations: The Federal rules restrict any use of the information to criminally investigate or prosecute any alcohol or drug abuse patient.[facility] Reason for Visit (unrecogniz ed section [...] Johanny Sigala MD [address] [place] [address] [place] [address] Referral ID Status Reason Start Date Expiration Date V isits Requested Visits Authorized [id number] Closed Auto-Generat ed Referral Patient Cleared - Admin/Chairm an/Director advise to proceed or did not respond 07/17/2022 09/15/2022 1 1 Care Teams (unrecognized sec tion and content) [employer] Machine Operator Relationship Specialty Start Date End Date Bret Salomon MD [address] [place] [address] PCP - General Internal Medicine 12/23/15 Herman Vann MD [address] [address] Physician Endocrinology 12/26/14 [facility] [address] [facility] [address] 01/23/19 [employer] Machine Operator Relationship Specialty Start Date End Date Bret Salomon MD [address] [place] [address] PCP - General Internal Medicine 12/23/15 Herman Vann MD [address] [place] [address] Physician Endocrinology 12/26/14 [facility] [address] [facility] [address] 01/23/19 [employer] Machine Operator Relationship Specialty Start Date End Date Bret Salomon MD [address] [place] [address] PCP - General Internal Medicine 12/23/15 Herman Vann MD [address] [place] [address] Physician Endocrinology 12/26/14 [facility] [address] [facility] [address] 01/23/19 [employer] Machine Operator Relationship Specialty Start Date End Date Bret Salomon MD [address] [place] [id number] PCP - General Internal Medicine 12/23/15 Herman Vann MD [address] [place] [address] Physician Endocrinology 12/26/14 [facility] [address] [place] [address] 01/23/19 [employer] Machine Operator Relationship Specialty Start Date End Date Herman Vann MD [address] [place] [address], [place] [address] Physician Endocrinology 12/26/14 [facility] [address] [place] [address] 01/23/19 [employer] Machine Operator Relationship Specialty Start Date End Date Herman Vann MD [address] [place] [address] Physician Endocrinology 12/26/14 [facility] [address] [place] [address] 01/23/19 [employer] Machine Operator Relationship Specialty Start Date End Date Herman Vann MD [address] [place] [address] Physician Endocrinology 12/26/14 [facility] [address] [place] [address] 01/23/19 [employer] Machine Operator Relationship Specialty Start Date End Date Herman Vann MD [address] [place] [address], [place] [address] Physician Endocrinology 12/26/14 [facility] [address] [place] [address] 01/23/19 [employer] Machine Operator Relationship Specialty Start Date End Date Herman Vann MD [address] [place] [address], [place] [address] Physician Endocrinology 12/26/14 [facility] [address] [place] [address] 01/23/19 [employer] Machine Operator Relationship Specialty Start Date End Date Herman Vann MD [address] [place] [address], [place] [address] Physician Endocrinology 12/26/14 [facility] [address] [place] [address] 01/23/19 [employer]ing Machine Operator Relationship Specialty Start Date End Date Herman Vann MD [address] [place] [address], [address] [place] [address] Physician Endocrinology 12/26/14 [facility] [address] [place] [address] 01/23/19 FOR RECORDS PERTAINING TO PATIENTS WHO [...] BE BASED ON THE PRIMARY CLINICAL RECORDS. [facility] [employer] [facility]. provides no warranty or guarantee of the accuracy or completeness of information in this document.
[2023-04-22 14:56] LABS: Anion Gap 9 (5-15); BUN 32 mg/dL (7-18); BUN/Creat Ratio 23.9 RATIO (10-20); Calcium,Total 8.8 mg/dL (8.5-10.1); Chloride 103 mmol/L (98-107); Creatinine, Serum 1.34 mg/dL (0.55-1.02); EST Glomerular Filtration Rate 43 mL/min (>60); Est Glom Filt Rate - Afr Amer 52 mL/min (>60); Glucose 99 mg/dL (74-106); Potassium 5.2 mmol/L (3.5-5.1); Sodium Level 138 mmol/L (136-145)
== END | disposition home or self-care (01) ==
LOC: BIMLAB 10:55
PROVIDERS: PCP Internal Medicine; Referring Provider Internal Medicine Endocrinology, Diabetes & Metabolism; Visit Provider Internal Medicine Endocrinology, Diabetes & Metabolism
DX: E89.2 Postprocedural hypoparathyroidism (principal)
CPT/HCPCS: 36415; 80048

== ENCOUNTER 2023-05-29 17:06 | Emergency (ER) | payer MEDICARE, MEDICAID, SELFPAY ==
[2023-05-29 17:07] VITALS: BP 156/95; PULSE 94; RESP 16; TEMP 36.3; O2SAT 100; BMI 50.8
[2023-05-29 20:00] VITALS: BP 111/79; PULSE 75; RESP 22; TEMP 37; O2SAT 99
[2023-05-29] MEDS: Amox/Clavulanate 875 MG Tablet PO (20:23)
[2023-05-29 20:58] VITALS: BP 127/91; PULSE 72; RESP 16; RESP 18; TEMP 37; O2SAT 97; O2SAT 99
[2023-05-29] MEDS: Bupivacaine 0.5%/Epi 1.8 ML Syringe INFILT (20:58)
--- NOTE | 2023-05-29 21:19 | EDS_ITS ---
HPI History of Present Illness Chief Complaint: Dental Informant: patient Narrative Narrative: Patient presents with worsening right lower frontal dental pain. She states she had some mild throbbing pain for the past few days but was brushing her teeth yesterday when she started to have sharp pain. She feels that there is swelling at the base of her tooth and is worried that her nerve is exposed. She follows with [facility] but cannot get in as is the weekend. Denies any tobacco use wears dentures for her upper teeth. As no relief with ibuprofen or Tylenol. Came in for further evaluation. [facility] Medical History (Updated 05/29/23 @ 21:[address] Mira Quarles, DO) ADHD Allergic rhinitis Anemia Anemia Anxiety Anxiety disorder, unspecified Arthritis Chronic diarrhea Chronic kidney disease, stage 3 Depression Difficulty balancing Easy bruising Edema Exocrine pancreatic insufficiency Fatigue Gastric reflux GERD (gastroesophageal reflux disease) Gout High cholesterol History of blood transfusion History of edema History of IBS History of kidney stones history of left foot fracture History of renal disease Hypertension Hypothyroidism Hypothyroidism (acquired) Insomnia Irritable bowel syndrome Kidney disease Knee pain Leg cramps Major depressive disorder, recurrent severe without psychotic features Migraine 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) Non-smoker Obesity Obstructive sleep apnea Osteoarthritis of right knee Post traumatic stress disorder Post-menopausal Post-surgical hypoparathyroidism Restless leg syndrome Shortness of breath on exertion Sleep apnea Stage III chronic kidney disease Ureteral calculus Vertigo Vitamin D deficiency Wears contact lenses Wears dentures Wears glasses Home Medications cyanocobalamin (vitamin B-12) 500 mcg tablet 1,000 mcg PO DAILY@0800 Supplement 09/16/17 [History Last Taken 07/15/18] atorvastatin 20 mg tablet 20 mg PO DAILY cholesterol 09/24/21 [History Last Taken 11/12/22] cholecalciferol (vitamin D3) 50 mcg (2,000 unit) capsule (Vitamin D3) 1,250 mcg PO DAILY bone 09/24/21 [History Last Taken Unknown] levothyroxine 100 mcg tablet 100 mcg PO DAILY thyroid 09/24/21 [History Last Taken 11/12/22] magnesium 200 mg tablet 250 mg PO DAILY supplement 10/19/22 [History Last Taken Unknown] spironolactone 25 mg tablet 25 mg PO DAILY BP/water pill 10/19/22 [History Last Taken 11/12/22] aspirin 81 mg tablet,delayed release (Adult Low Dose Aspirin) 81 mg PO BID heart health 11/12/22 [History Last Taken 11/12/22 09:00] docusate sodium 100 mg capsule (Colace) 100 mg PO BID bowels 11/12/22 [History Last Taken 11/12/22 09:00] acetaminophen 500 mg tablet 1,000 mg (2 x 500 mg) PO Q8 #0 tabs 11/18/22 [Rx Last Taken Unknown] calcium carbonate 200 mg calcium (500 mg) chewable tablet 1,000 mg (5 x 200 mg calcium (500 mg)) PO BIDCM 30 days #300 tabs 11/18/22 [Rx Last Taken Unknown] sennosides 8.6 mg-docusate sodium 50 mg tablet (Stool Softener-Stimulant Laxative) 2 tab PO BID 30 days #120 tabs 11/18/22 [Rx Last Taken Unknown] pantoprazole 20 mg tablet,delayed release 20 mg PO DAILY reflux #90 tabs 11/24/22 [Rx Last Taken Unknown] ibuprofen 400 mg tablet 400 mg PO Q8H 12/09/22 [History Last Taken Unknown] aripiprazole 15 mg tablet 7.5 mg (1/2 x 15 mg) PO QHS 30 days #15 tabs 03/09/23 [Rx Last Taken Unknown] vortioxetine 20 mg tablet 20 mg PO DAILY depression #30 tabs 03/09/23 [Rx Last Taken Unknown] potassium chloride 20 mEq tablet,extended release 20 meq PO DAILY #30 tabs 04/01/23 [Rx Last Taken Unknown] doxepin 10 mg capsule 10 mg PO QHS PRN sleep #30 caps 04/22/23 [Rx Last Taken Unknown] bupropion HCl 300 mg 24 hr tablet, extended release See Rx Instructions .Route .COMPLEX #90 tabs 04/29/23 [Rx Last Taken Unknown] calcitriol 0.25 mcg capsule 0.75 mcg (3 x 0.25 mcg) PO DAILY 30 days #90 caps 05/06/23 [Rx Last Taken Unknown] alprazolam 0.5 mg tablet 0.5 mg PO BID PRN anxiety #60 TABLETS 05/17/23 [Rx Last Taken Unknown] amoxicillin 875 mg-potassium clavulanate 125 mg tablet 1 tab PO Q12H #20 tabs 05/29/23 [Rx Last Taken Unknown] hydrocodone-acetaminophen 5-325mg 5mg-325mg 1 tab PO Q8H PRN pain 3 days #9 tabs 05/29/23 [Rx Last Taken Unknown] Allergy/AdvReac Type Severity Reaction Status Date / Time Iodinated Contrast Media Allergy Rash Verified 05/29/23 17:10 [DYEE] propranolol Allergy unknown Verified 05/29/23 17:10 iron AdvReac Other Verified 05/29/23 17:10 morphine AdvReac Rash Verified 05/29/23 17:10 ondansetron [From Zofran] AdvReac Other Verified 05/29/23 17:10 Family History Mother Stomach cancer Anemia Arthritis MEN, type 1 Father Pneumonia Anxiety Arthritis Depression Surgical History H/O right knee surgery History of cholecystectomy History of colonoscopy History of esophagogastroduodenoscopy (EGD) history of gastric sleeve History of hysterectomy History of parathyroidectomy history of right collar bone surgery Social History adopted: No household members: none housing: apartment current occupational status: unemployed current occupation: disability history of recent travel: No sexually active: No Smoking Status: Never smoker Electronic Cigarette Use: not used alcohol intake: current alcohol intake frequency: holidays/special occasions only details: once or twice a year substance use type: does not use, former substance user and marijuana diet: low salt well-balanced diet: about half the time caffeine: Yes eating out: 4 or more times/week during the past year weight has: increased > 10 lbs what type of physical activity do you participate in: walking frequency: 1-2 times per week seatbelt use: always do you feel safe at home: Yes ROS ROS ED Constitutional Constitutional ED: Denies chills or fever(s) Eyes Eyes: Denies change in vision ENT ENT ED: Reports other Details: dental pain- front right tooth Gastrointestinal Gastrointestinal: Denies nausea or vomiting Integumentary Denies rash Neurologic Neurologic: Denies headache(s) EXAM Physical Exam Const Vital Signs: 05/29/23 17:07 05/29/23 20:00 05/29/23 20:58 Temperature 97.4 F L 98.6 F Temperature Source Temporal Oral Pulse Rate 94 75 72 Respiratory Rate 16 22 H 16 Blood Pressure 156/95 H 111/79 127/91 H Blood Pressure Mean 115 89 103 Pulse Ox 100 99 97 Oxygen Delivery Method Room Air Room Air Room Air 05/29/23 20:58 Temperature 98.6 F Temperature Source Pulse Rate 72 Respiratory Rate 18 Blood Pressure 127/91 H Blood Pressure Mean 103 Pulse Ox 99 Oxygen Delivery Method Positive well nourished and well developed General Appearance ED: well developed and NAD HEENT HEENT Narrative: Tenderness with swelling with a small area of fluctuance at the base of the lower front right incisor (tooth 25). No obvious drainage appreciated. Normal sublingual mucosa. Normal oropharynx. Patient is edentulous on the top teeth and missing majority of her molars on the bottom. Normal phonation. Eyes PERRL Neck no lymphadenopathy and supple Resp normal respiratory effort Cardio regular rate and regular rhythm Neuro oriented x3 Sensorium / Orientation: alert Psych mental status grossly normal Skin no rashes or lesions noted and no wounds MDM MDM MDM Narrative Medical decision making narrative: Patient evaluated for increasing dental pain. It looks that she is developing an abscess. Right-sided inferior alveolar block performed for analgesia as well as a periosteal block at the base of the 25th tooth. Patient tolerated this well. Once adequate analgesia was achieved a stab incision made over the area of fluctuance using an 18-gauge needle. Patient had as some drainage of purulence and then bloody drainage. She tolerated procedure well without immediate complications. Started on Augmentin. Will be discharged with a short course of [place] and then counseled take [id number] NSAIDs for pain. Will follow-up with her dentist. Given return precautions. Discharged home in stable condition. Differential diagnosis?dentalgia, dental abscess, Ata's angina (normal phonation and no severe features) Discharge Plan Triage Chief Complaint: Dental ED Provider: Mira Quarles Dx/Rx/DC Orders Clinical Impression: Pain, dental, Dental abscess Instructions: ED Dental Pain, ED Dental Abscess Prescriptions: New amoxicillin-pot clavulanate 875-125 mg tablet 1 tab PO Q12H Qty: 20 0RF hydrocodone-acetaminophen 5-325 mg tablet 1 tab PO Q8H PRN (Reason: pain) 3 Days Qty: 9 0RF No Action magnesium 200 mg tablet 250 mg PO DAILY spironolactone 25 mg tablet 25 mg PO DAILY ibuprofen 400 mg tablet 400 mg PO Q8H aripiprazole 15 mg tablet 7.5 mg PO QHS 30 Days Qty: 15 2RF potassium chloride 20 mEq tablet extended release 20 meq PO DAILY Qty: 30 1RF cyanocobalamin (vitamin B-12) 500 MCG tablet 1,000 mcg PO DAILY@0800 atorvastatin 20 mg Tablet 20 mg PO DAILY levothyroxine 100 mcg Tablet 100 mcg PO DAILY cholecalciferol (vitamin D3) [Vitamin D3] 50 mcg (2,000 unit) Capsule 1,250 mcg PO DAILY aspirin [Adult Low Dose Aspirin] 81 mg tablet,delayed release (DR/EC) 81 mg PO BID docusate sodium [Colace] 100 mg capsule 100 mg PO BID calcium carbonate 200 mg calcium (500 mg) Tablet,Chewable 1,000 mg PO BIDCM 30 Days Qty: 300 0RF acetaminophen 500 mg Tablet 1,000 mg PO Q8 Qty: 0 0RF sennosides-docusate sodium [Stool Softener-Stimulant Laxat] 8.6-50 mg Tablet 2 tab PO BID 30 Days Qty: 120 0RF pantoprazole 20 mg tablet,delayed release (DR/EC) 20 mg PO DAILY Qty: 90 1RF vortioxetine 20 mg tablet 20 mg PO DAILY Qty: 30 2RF doxepin 10 mg capsule 10 mg PO QHS PRN (Reason: sleep) Qty: 30 2RF bupropion HCl 300 mg tablet extended release 24 hr See Rx Instructions .ROUTE .COMPLEX Qty: 90 2RF Dose Instruction: take 1 tablet by mouth once daily for MOOD Rx Instructions: take 1 tablet by mouth once daily for MOOD calcitriol 0.25 mcg capsule 0.75 mcg PO DAILY 30 Days Qty: 90 6RF alprazolam 0.5 mg tablet 0.5 mg PO BID PRN (Reason: anxiety) Qty: 60 1RF Stand Alone Forms: ED Work / School Excuse Primary Care Provider: Alondra Davies Referrals: Alondra Davies MD [Primary Care Provider] - Activity Restrictions/Additional Instructions: Please follow-up with your dentist as we discussed. You might have continued drainage/bleeding from the site that was lanced, that is okay. If if you like to swish and spit with alcohol free mouthwash is might be beneficial. Take the antibiotics as prescribed. You may also take ibuprofen as needed for pain addition to the pain medication prescribed today. Disposition Disposition: Home, Self Care Discharge Date/Time: 05/29/23 21:32
== END 2023-05-29 21:32 | disposition home or self-care (01) ==
PROVIDERS: Emergency Provider Emergency Medicine; PCP Internal Medicine; Visit Provider Emergency Medicine
DX: K04.7 Periapical abscess without sinus (principal)
CPT/HCPCS: 41800; 64999; 99282

== ENCOUNTER 2023-08-22 02:03 | Emergency (ER) | payer MEDICARE, MEDICAID, SELFPAY ==
[2023-08-22 02:04] VITALS: BP 122/90; PULSE 107; RESP 24; TEMP 36.4; O2SAT 96
[2023-08-22 02:06] VITALS: BP 134/83; PULSE 90; RESP 16; TEMP 36.7; O2SAT 95
--- NOTE | 2023-08-22 02:27 | ED.VIS.DYS ---
HPI History of Present Illness Chief Complaint: Shortness of Breath Informant: patient Narrative Narrative: Patient with runny nose, congestion, nonproductive cough for a couple of days, along with developing wheezing. She does not have asthma or COPD that she knows of. She states every time she lies down she cannot stop coughing which is the main thing that brought her in tonight at 2 AM. No travel out of the area recently no known sick contacts. 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 Migraine Multiple endocrine neoplasia type 1 (MEN1) Insomnia Anxiety Edema Allergic rhinitis ADHD Vitamin D deficiency Depression Hypothyroidism Restless leg syndrome Post traumatic stress disorder GERD (gastroesophageal reflux disease) Irritable bowel syndrome Anemia Chronic kidney disease, stage 3 Sleep apnea Osteoarthritis of right knee Difficulty balancing Knee pain Fatigue Anemia Kidney disease Arthritis history of left foot fracture History of kidney stones Ureteral calculus Home Medications ?Medication ?Instructions ?Recorded ?Last Taken ?Type cyanocobalamin (vitamin B-12) 500 1,000 mcg PO DAILY@0800 Supplement 09/16/17 07/15/18 History mcg tablet cholecalciferol (vitamin D3) 50 1,250 mcg PO DAILY bone 09/24/21 Unknown History mcg (2,000 unit) capsule (Vitamin D3) levothyroxine 100 mcg tablet 100 mcg PO DAILY thyroid 09/24/21 11/12/22 History aspirin 81 mg tablet,delayed 81 mg PO BID heart health 11/12/22 11/12/22 09:00 History release (Adult Low Dose Aspirin) pantoprazole 20 mg tablet,delayed 20 mg PO DAILY reflux #90 tabs 11/24/22 Unknown Rx release potassium chloride 20 mEq 20 meq PO DAILY #30 tabs 04/01/23 Unknown Rx tablet,extended release bupropion HCl 300 mg 24 hr tablet, See Rx Instructions .Route 04/29/23 Unknown Rx extended release .COMPLEX #90 tabs calcitriol 0.25 mcg capsule 0.75 mcg (3 x 0.25 mcg) PO DAILY 05/06/23 Unknown Rx 30 days #90 caps cariprazine 1.5 mg capsule 1.5 mg PO DAILY #30 caps 06/10/23 Unknown Rx vortioxetine 20 mg tablet 20 mg PO DAILY depression #30 tabs 07/07/23 Unknown Rx azelastine 0.05 % eye drops 1 drp ophthalmic (eye) BID #6 mL 07/08/23 Unknown Rx atorvastatin 20 mg tablet 20 mg PO DAILY cholesterol #90 tabs 07/16/23 Unknown Rx alprazolam 0.5 mg tablet 0.5 mg PO BID PRN anxiety #60 07/19/23 Unknown Rx TABLETS benztropine 0.5 mg tablet 0.5 mg PO BID EPS #60 tabs 08/10/23 Unknown Rx ciprofloxacin HCl 0.3 % eye drops See Rx Instructions ophthalmic 08/11/23 Unknown Rx (eye) .COMPLEX #10 mL albuterol sulfate 90 mcg/actuation 1 - 2 puff inhalation Q4H PRN PRN 08/22/23 Unknown Rx aerosol inhaler (Ventolin HFA) Wheezing ##1 prednisone 20 mg tablet 40 mg (2 x 20 mg) PO DAILY #10 08/22/23 Unknown Rx TABLETS Allergy/AdvReac Type Severity Reaction Status Date / Time Iodinated Contrast Media Allergy Rash Verified 08/11/23 12:50 (DYEE) propranolol Allergy unknown Verified 08/11/23 12:50 iron AdvReac Other Verified 08/11/23 12:50 morphine AdvReac Rash Verified 08/11/23 12:50 ondansetron (From Zofran) AdvReac Other Verified 08/11/23 12:50 Family History Mother Stomach cancer Anemia Arthritis MEN, type 1 Father Pneumonia Anxiety Arthritis Depression Surgical History History of esophagogastroduodenoscopy (EGD) History of colonoscopy history of right collar bone surgery H/O right knee surgery History of hysterectomy History of parathyroidectomy history of gastric sleeve History of cholecystectomy Social History adopted: No household members: none housing: apartment current occupational status: unemployed current occupation: disability history of recent travel: No sexually active: No Smoking Status: Never smoker Electronic Cigarette Use: not used alcohol intake: current alcohol intake frequency: holidays/special occasions only details: once or twice a year substance use type: does not use, former substance user and marijuana diet: low salt well-balanced diet: about half the time caffeine: Yes eating out: 4 or more times/week during the past year weight has: increased > 10 lbs what type of physical activity do you participate in: walking frequency: 1-2 times per week seatbelt use: always do you feel safe at home: Yes ROS ROS ED Constitutional Constitutional ED: Denies chills or fever(s) Eyes Eyes: Denies change in vision or diplopia ENT ENT ED: Reports nasal congestion and rhinorrhea; Denies ear pain, headache(s), sore throat or throat swelling Cardiovascular Cardiovascular: Denies chest pain or palpitations Respiratory/Chest Respiratory/Chest: Reports cough, dyspnea and wheezing; Denies sputum Gastrointestinal Gastrointestinal: Denies abdominal pain, diarrhea, nausea or vomiting Genitourinary Genitourinary ED: Denies dysuria or hematuria Musculoskeletal Musculoskeletal: Denies back pain or neck pain Integumentary Denies abscess or rash Neurologic Neurologic: Denies headache(s), paresthesias or weakness Psychiatric Psychiatric: Denies anxiety or suicidal thoughts EXAM Physical Exam Const Vital Signs: 08/22/23 02:04 08/22/23 02:06 08/22/23 02:07 Temperature 97.6 F L 98.1 F Temperature Source Temporal Temporal Pulse Rate 107 H 90 Respiratory Rate 24 H 16 Respiratory Effort Normal Non-Labored Respiratory Depth Normal Respiratory Pattern Tachypnea Blood Pressure 122/90 H 134/83 H Blood Pressure Mean 100 100 Pulse Ox 96 95 Oxygen Delivery Method Room Air Room Air Room Air 08/22/23 02:36 08/22/23 03:06 08/22/23 04:06 Temperature 98.2 F 98 F Temperature Source Temporal Temporal Pulse Rate 101 H 91 90 Respiratory Rate 20 H 16 16 Respiratory Effort Respiratory Depth Respiratory Pattern Normal Blood Pressure 142/94 H 123/86 H Blood Pressure Mean 110 98 Pulse Ox 95 95 Oxygen Delivery Method Room Air Room Air Positive well nourished and well developed General Appearance ED: well developed and NAD HEENT Reports moist mucous membranes normocephalic and atraumatic Eyes PERRL and EOMs intact bilaterally Neck full ROM, supple and no meningeal signs Resp normal respiratory effort Resp Narrative: Diffuse expiratory wheezes otherwise clear Cardio regular rate, regular rhythm and no murmurs GI non-tender and non-distended Auscultation: normoactive bowel sounds Palpation: soft Back/Spine no CVA tenderness General Back: other FROM Extremity normal to inspection General Extremety ED: Negative for edema, pulses abnormal or tenderness General Extremity: Negative for edema or pulses abnormal Neuro oriented x3, CN's II-XII intact bilaterally and no sensory deficits noted Sensorium / Orientation: awake and alert Motor Exam: strength 5/5 throughout Skin no rashes or lesions noted and no wounds MDM MDM MDM Narrative Medical decision making narrative: Patient was given nebulizer treatment which really helped her dyspnea/wheezing. Pulse ox excellent prior to that. Mild resting tachycardia resolved. Vital signs now normal. Two-view chest x-ray on my interpretation negative for pneumonia radiology was in agreement. We did a COVID/influenza/RSV test, those are all negative. Patient has no known history of reactive airway disease, but she is having a lot of recent allergic rhinitis symptoms. She states her allergies are worse than usual. It certainly possible she could have developed some reactive airway disease. I am happy to try her on a 5-day course of prednisone in addition to an albuterol inhaler, but as I discussed with her no antibiotics indicated for what I am seeing here. She understands this and is comfortable with follow-up or returning if worse. Radiography Diagnostic Testing: Clinical Impression(s) from Imaging Studies Chest X-Ray 08/22/23 03:00 IMPRESSION: No evidence of acute cardiopulmonary disease. Electronically Signed: Syed Amezcua DO at 4:07 EDT , Discharge Plan Triage Chief Complaint: Shortness of Breath ED Provider: Dylan Valencia Dx/Rx/DC Orders Clinical Impression: Acute wheezy bronchitis, Allergic rhinitis Instructions: ED Bronchitis with Wheezing (Adult) Prescriptions: New prednisone 20 mg tablet 40 mg PO DAILY Qty: 10 0RF albuterol sulfate [Ventolin HFA] 90 mcg/actuation HFA aerosol inhaler 1 - 2 puff inhalation Q4H PRN PRN (Reason: Wheezing) Qty: 1 0RF No Action potassium chloride 20 mEq tablet extended release 20 meq PO DAILY Qty: 30 1RF alprazolam 0.5 mg tablet 0.5 mg PO BID PRN (Reason: anxiety) Qty: 60 1RF cariprazine 1.5 mg capsule 1.5 mg PO DAILY Qty: 30 2RF azelastine 0.05 % drops 1 drp ophthalmic (eye) BID Qty: 6 0RF ciprofloxacin HCl 0.3 % drops See Rx Instructions ophthalmic (eye) .COMPLEX Qty: 10 0RF Rx Instructions: put 1-2 drps in affected eye(s) every 2hr up to 8 times/day x2days; then 4 times/day x5days ophthalmic (eye) cyanocobalamin (vitamin B-12) 500 MCG tablet 1,000 mcg PO DAILY@0800 levothyroxine 100 mcg Tablet 100 mcg PO DAILY cholecalciferol (vitamin D3) [Vitamin D3] 50 mcg (2,000 unit) Capsule 1,250 mcg PO DAILY aspirin [Adult Low Dose Aspirin] 81 mg tablet,delayed release (DR/EC) 81 mg PO BID pantoprazole 20 mg tablet,delayed release (DR/EC) 20 mg PO DAILY Qty: 90 1RF bupropion HCl 300 mg tablet extended release 24 hr See Rx Instructions .ROUTE .COMPLEX Qty: 90 2RF Dose Instruction: take 1 tablet by mouth once daily for MOOD Rx Instructions: take 1 tablet by mouth once daily for MOOD calcitriol 0.25 mcg capsule 0.75 mcg PO DAILY 30 Days Qty: 90 6RF vortioxetine 20 mg tablet 20 mg PO DAILY Qty: 30 2RF atorvastatin 20 mg tablet 20 mg PO DAILY Qty: 90 0RF benztropine 0.5 mg tablet 0.5 mg PO BID Qty: 60 1RF Primary Care Provider: Alondra Davies Referrals: Alondra Davies MD [Primary Care Provider] - 3-5 Days if not improving Print Language: Spanish Disposition Disposition: Home, Self Care
[2023-08-22 02:36] VITALS: PULSE 101; RESP 20
[2023-08-22] MEDS: Ipratropium/Albuterol Sulfate 3 ML AMPUL.NEB INHALATION (02:36)
--- NOTE | 2023-08-22 03:00 | RAD_ITS ---
INDICATION: cough/sob EXAMINATION/TECHNIQUE: X-RAY - XR Chest 2 Views COMPARISON: 02/15/2023. FINDINGS: LINES/DEVICES: None. LUNGS: No consolidation or evidence of an effusion. No evidence of edema or a pneumothorax. Stable blunting of the right costophrenic angle likely representing chronic pleural thickening. MEDIASTINUM AND CARDIOVASCULAR STRUCTURES: Cardiac silhouette is normal in size and contour. Mediastinum is unremarkable. BONES AND SOFT TISSUES: No acute abnormality. RAD/Chest PA and Lateral IMPRESSION: No evidence of acute cardiopulmonary disease. Electronically Signed: Syed Amezcua DO at 4:07 EDT ,
[2023-08-22 03:06] VITALS: BP 142/94; PULSE 91; RESP 16; TEMP 36.8; O2SAT 95
[2023-08-22 04:06] VITALS: BP 123/86; PULSE 90; RESP 16; TEMP 36.6; O2SAT 95
[2023-08-22 04:49] VITALS: BP 122/57; PULSE 92; RESP 16; TEMP 36.9; O2SAT 98
== END 2023-08-22 05:17 | disposition home or self-care (01) ==
PROVIDERS: Emergency Provider Emergency Medicine; PCP Internal Medicine; Visit Provider Emergency Medicine
DX: J20.9 Acute bronchitis, unspecified (principal); J30.9 Allergic rhinitis, unspecified; G47.33 Obstructive sleep apnea (adult) (pediatric); Z79.899 Other long term (current) drug therapy
CPT/HCPCS: 71046; 87631; 94640; 99282

== ENCOUNTER 2023-08-26 02:40 | Emergency (ER) | payer MEDICARE, MEDICAID, SELFPAY ==
[2023-08-26 02:45] VITALS: BP 126/95; PULSE 90; RESP 25; TEMP 36.4; O2SAT 96; BMI 51.4
--- NOTE | 2023-08-26 03:40 | RAD_ITS ---
INDICATION: dyspnea EXAMINATION/TECHNIQUE: X-RAY - XR Chest 2 Views COMPARISON: 08/22/2023 FINDINGS: LINES/DEVICES: None. LUNGS: No consolidation. No pneumothorax. MEDIASTINUM: Unremarkable. CARDIAC SILHOUETTE: Not enlarged. BONES AND SOFT TISSUES: No acute abnormalities. RAD/Chest PA and Lateral IMPRESSION: No evidence of active intrathoracic disease. Electronically Signed: Tahira Mcallister MD at 5:25 EDT ,
[2023-08-26] MEDS: Ipratropium/Albuterol Sulfate 3 ML AMPUL.NEB INHALATION (03:47)
[2023-08-26 03:48] VITALS: PULSE 82; RESP 18
[2023-08-26 04:38] VITALS: O2SAT 99
[2023-08-26 04:40] VITALS: BP 135/76; PULSE 82; RESP 20; O2SAT 100
[2023-08-26 04:46] VITALS: O2SAT 93
--- NOTE | 2023-08-26 05:35 | EX.ED.DYSGE1 ---
HPI History of Present Illness Chief Complaint: Shortness of Breath Informant: patient Narrative Narrative: Patient is a 58-year-old female with past medical history of hypertension hypothyroidism and chronic kidney disease. She presents today with persistent cough and shortness of breath. She states she was seen in the ER few days ago for similar symptoms and at that time underwent a workup there revealed no obvious pneumonia or fluid overload and was discharged home. She states her cough has persisted as well as the shortness of breath sensation and secondary to this she returns for repeat evaluation [facility] Medical History Post-menopausal Wears contact lenses Wears glasses Wears dentures Vertigo History of renal disease High cholesterol Easy bruising History of IBS Gastric reflux Non-smoker Shortness of breath on exertion Leg cramps History of edema Hypertension Gout Exocrine pancreatic insufficiency Chronic diarrhea Stage III chronic kidney disease Obesity Post-surgical hypoparathyroidism Hypothyroidism (acquired) History of blood transfusion Obstructive sleep apnea Anxiety disorder, unspecified Major depressive disorder, 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 Migraine Multiple endocrine neoplasia type 1 (MEN1) Insomnia Anxiety Edema Allergic rhinitis ADHD Vitamin D deficiency Depression Hypothyroidism Restless leg syndrome Post traumatic stress disorder GERD (gastroesophageal reflux disease) Irritable bowel syndrome Anemia Chronic kidney disease, stage 3 Sleep apnea Osteoarthritis of right knee Difficulty balancing Knee pain Fatigue Anemia Kidney disease Arthritis history of left foot fracture History of kidney stones Ureteral calculus Home Medications ?Medication ?Instructions ?Recorded ?Last Taken ?Type cyanocobalamin (vitamin B-12) 500 1,000 mcg PO DAILY@0800 Supplement 09/16/17 07/15/18 History mcg tablet cholecalciferol (vitamin D3) 50 1,250 mcg PO DAILY bone 09/24/21 Unknown History mcg (2,000 unit) capsule (Vitamin D3) levothyroxine 100 mcg tablet 100 mcg PO DAILY thyroid 09/24/21 11/12/22 History bupropion HCl 300 mg 24 hr tablet, See Rx Instructions .Route 04/29/23 Unknown Rx extended release .COMPLEX #90 tabs calcitriol 0.25 mcg capsule 0.75 mcg (3 x 0.25 mcg) PO DAILY 05/06/23 Unknown Rx 30 days #90 caps cariprazine 1.5 mg capsule 1.5 mg PO DAILY #30 caps 06/10/23 Unknown Rx vortioxetine 20 mg tablet 20 mg PO DAILY depression #30 tabs 07/07/23 Unknown Rx azelastine 0.05 % eye drops 1 drp ophthalmic (eye) BID #6 mL 07/08/23 Unknown Rx atorvastatin 20 mg tablet 20 mg PO DAILY cholesterol #90 tabs 07/16/23 Unknown Rx benztropine 0.5 mg tablet 0.5 mg PO BID EPS #60 tabs 08/10/23 Unknown Rx ciprofloxacin HCl 0.3 % eye drops See Rx Instructions ophthalmic 08/11/23 Unknown Rx (eye) .COMPLEX #10 mL albuterol sulfate 90 mcg/actuation 1 - 2 puff inhalation Q4H PRN PRN 08/22/23 Unknown Rx aerosol inhaler (Ventolin HFA) Wheezing ##1 prednisone 20 mg tablet 40 mg (2 x 20 mg) PO DAILY #10 08/22/23 Unknown Rx TABLETS alprazolam 0.5 mg tablet 0.5 mg PO DAILY PRN anxiety 08/26/23 Unknown History azithromycin 250 mg tablet See Rx Instructions PO .COMPLEX #6 08/26/23 Unknown Rx (Zithromax Z-Moshe) tabs prednisone 20 mg tablet 40 mg (2 x 20 mg) PO DAILY 5 days 08/26/23 Unknown Rx #10 tabs Allergy/AdvReac Type Severity Reaction Status Date / Time Iodinated Contrast Media Allergy Rash Verified 08/27/23 16:05 (DYEE) propranolol Allergy unknown Verified 08/27/23 16:05 iron AdvReac Other Verified 08/27/23 16:05 morphine AdvReac Rash Verified 08/27/23 16:05 ondansetron (From Zofran) AdvReac Other Verified 08/27/23 16:05 Family History Mother Stomach cancer Anemia Arthritis MEN, type 1 Father Pneumonia Anxiety Arthritis Depression Surgical History History of esophagogastroduodenoscopy (EGD) History of colonoscopy history of right collar bone surgery H/O right knee surgery History of hysterectomy History of parathyroidectomy history of gastric sleeve History of cholecystectomy Social History adopted: No household members: none housing: apartment current occupational status: unemployed current occupation: disability history of recent travel: No sexually active: No Smoking Status: Never smoker Electronic Cigarette Use: not used alcohol intake: current alcohol intake frequency: holidays/special occasions only details: once or twice a year substance use type: does not use, former substance user and marijuana diet: low salt well-balanced diet: about half the time caffeine: Yes eating out: 4 or more times/week during the past year weight has: increased > 10 lbs what type of physical activity do you participate in: walking frequency: 1-2 times per week seatbelt use: always do you feel safe at home: Yes ROS ROS ED Constitutional Constitutional ED: Denies chills or fever(s) ENT ENT ED: Reports rhinorrhea; Denies sore throat Cardiovascular Cardiovascular: Denies chest pain Respiratory/Chest Respiratory/Chest: Reports cough and dyspnea Gastrointestinal Gastrointestinal: Denies abdominal pain, diarrhea, nausea or vomiting Genitourinary Genitourinary ED: Denies dysuria Musculoskeletal Musculoskeletal: Reports myalgias Integumentary Denies rash Neurologic Neurologic: Denies headache(s) Hematologic/Lymphatic Hematologic/Lymphatic: Denies easy bleeding or easy bruising EXAM Physical Exam Const Vital Signs: 08/26/23 02:45 08/26/23 03:48 08/26/23 04:38 Temperature 97.6 F L Temperature Source Temporal Pulse Rate 90 82 Respiratory Rate 25 H 18 Respiratory Effort Normal Non-Labored Respiratory Depth Normal Respiratory Pattern Normal Blood Pressure 126/95 H Blood Pressure Mean 105 Pulse Ox 96 Oxygen Delivery Method Room Air Room Air 08/26/23 04:40 Temperature Temperature Source Pulse Rate 82 Respiratory Rate 20 H Respiratory Effort Respiratory Depth Respiratory Pattern Blood Pressure 135/76 H Blood Pressure Mean 95 Pulse Ox 100 Oxygen Delivery Method Room Air Positive well nourished, well developed and obese General Appearance ED: well developed; Negative for pallor Nutritional Appearance: obese HEENT Reports moist mucous membranes HEENT Narrative: Cobblestoning is noted in the posterior pharynx consistent with sinus drainage No airway edema or compromise No secondary findings to suggest infection in the posterior pharynx Eyes PERRL and EOMs intact bilaterally General Eye ED: Negative for pale conjunctiva or scleral icterus Neck supple and no JVD Chest Wall palpation of chest normal Resp normal respiratory effort Resp Narrative: Breath sounds are diminished throughout with faint expiratory wheeze but no nasal flaring retractions tachypnea or accessory muscle use Cardio regular rate and regular rhythm Extremity Extremity Narrative: +1 pitting edema to the bilateral lower extremities that is equal and symmetric with negative Homans' sign bilaterally Neuro oriented x3, CN's II-XII intact bilaterally and no sensory deficits noted Sensorium / Orientation: alert Motor Exam: strength 5/5 throughout Psych mental status grossly normal Skin no rashes or lesions noted General Skin Exam: Negative for jaundice or pallor MDM MDM MDM Narrative Medical decision making narrative: Patient presented to the ER tachypneic but otherwise with stable vitals. She was seen reducing worked up for cough and congestion with no obvious signs of pneumonia or fluid overload. On reevaluation this evening symptoms are most consistent with viral URI. In order to ensure that there was not a missed pneumonia or pleural effusion/CHF or pneumothorax I did elect to repeat a chest x-ray. Chest x-ray reviewed no signs of lung pathology. After receiving breathing medications she had resolution of her work of breathing and her breath sounds improved as well. The patient was ambulated and her pulse ox remained at 93% for the entire ambulation. Therefore at this time his x-ray reveals no acute lung pathology she is not hypoxic or requiring supplemental oxygen or showing signs of respiratory distress she is safe for discharge with symptomatic care History & Record Review Discussion w/independent historian: Patient Radiography Diagnostic Testing: Clinical Impression(s) from Imaging Studies Chest X-Ray 08/26/23 03:40 IMPRESSION: No evidence of active intrathoracic disease. Electronically Signed: Tahira Mcallister MD at 5:25 EDT Reading Location ID and State: [facility] / ID Tel , Service support , Chest x-ray as interpreted by the emergency medicine physician reveals no acute infiltrate pneumothorax or pleural effusion Discharge Plan Triage Chief Complaint: Shortness of Breath ED Provider: Lemuel Bledsoe Dx/Rx/DC Orders Clinical Impression: Viral upper respiratory tract infection with cough, Morbid obesity, Hypothyroidism Instructions: ED URI, Viral W/ Wheezing (Adult) Prescriptions: New prednisone 20 mg tablet 40 mg PO DAILY 5 Days Qty: 10 0RF azithromycin [Zithromax Z-Moshe] 250 mg tablet See Rx Instructions .ROUTE .COMPLEX Qty: 6 0RF Rx Instructions: For 250 mg dose pack: take 500 mg today (day 1), then 250 mg for 4 days (days 2-5) No Action cariprazine 1.5 mg capsule 1.5 mg PO DAILY Qty: 30 2RF azelastine 0.05 % drops 1 drp ophthalmic (eye) BID Qty: 6 0RF ciprofloxacin HCl 0.3 % drops See Rx Instructions ophthalmic (eye) .COMPLEX Qty: 10 0RF Rx Instructions: put 1-2 drps in affected eye(s) every 2hr up to 8 times/day x2days; then 4 times/day x5days ophthalmic (eye) cyanocobalamin (vitamin B-12) 500 MCG tablet 1,000 mcg PO DAILY@0800 levothyroxine 100 mcg Tablet 100 mcg PO DAILY cholecalciferol (vitamin D3) [Vitamin D3] 50 mcg (2,000 unit) Capsule 1,250 mcg PO DAILY alprazolam 0.5 mg tablet 0.5 mg PO DAILY PRN (Reason: anxiety) prednisone 20 mg tablet 40 mg PO DAILY Qty: 10 0RF albuterol sulfate [Ventolin HFA] 90 mcg/actuation HFA aerosol inhaler 1 - 2 puff inhalation Q4H PRN PRN (Reason: Wheezing) Qty: 1 0RF bupropion HCl 300 mg tablet extended release 24 hr See Rx Instructions .ROUTE .COMPLEX Qty: 90 2RF Dose Instruction: take 1 tablet by mouth once daily for MOOD Rx Instructions: take 1 tablet by mouth once daily for MOOD calcitriol 0.25 mcg capsule 0.75 mcg PO DAILY 30 Days Qty: 90 6RF vortioxetine 20 mg tablet 20 mg PO DAILY Qty: 30 2RF atorvastatin 20 mg tablet 20 mg PO DAILY Qty: 90 0RF benztropine 0.5 mg tablet 0.5 mg PO BID Qty: 60 1RF Primary Care Provider: Alondra Davies Referrals: Alondra Davies MD [Primary Care Provider] - Activity Restrictions/Additional Instructions: Please continue to use your albuterol inhaler to help with shortness of breath sensation. Add the steroid and Z-Moshe as directed for improved symptom control and return to the ER should you have any further concerns Print Language: Rwandan Disposition Disposition: Home, Self Care Discharge Date/Time: 08/26/23 05:54
[2023-08-26 05:53] VITALS: BP 98/62; PULSE 86; RESP 18; TEMP 36.6; O2SAT 97
== END 2023-08-26 05:54 | disposition home or self-care (01) ==
PROVIDERS: Emergency Provider Emergency Medicine; PCP Internal Medicine; Visit Provider Emergency Medicine
DX: J06.9 Acute upper respiratory infection, unspecified (principal); E66.01 Morbid (severe) obesity due to excess calories; N18.30 Chronic kidney disease, stage 3 unspecified; E03.9 Hypothyroidism, unspecified; I12.9 Hypertensive chronic kidney disease with stage 1 through stage 4 chronic kidney disease, or unspecified chronic kidney disease; G47.33 Obstructive sleep apnea (adult) (pediatric); Z79.899 Other long term (current) drug therapy
CPT/HCPCS: 71046; 94640; 99282

== ENCOUNTER 2023-08-27 16:04 | Emergency (ER) | payer MEDICARE, MEDICAID, SELFPAY ==
[2023-08-27 16:05] VITALS: BP 178/96; PULSE 114; RESP 26; TEMP 36.6; O2SAT 97; BMI 51.5
--- NOTE | 2023-08-27 16:16 | EKG12_ITS ---
Test Reason : SOB Blood Pressure : / mmHG Vent. Rate : 096 BPM Atrial Rate : 096 BPM P-R Int : 146 ms QRS Dur : 104 ms QT Int : 370 ms P-R-T Axes : 030 -30 030 degrees QTc Int : 467 ms Normal sinus rhythm Left axis deviation Minimal voltage criteria for LVH, may be normal variant ( Peytona product ) Abnormal ECG When compared with ECG of 15-FEB-2023 12:07, QT has shortened Confirmed by José Miguel Patrick ([id number]), web editor MIKE SINGER ([id number]) on 08/31/2023 8:26:53 AM Referred By: Confirmed By:José Miguel Patrick
--- NOTE | 2023-08-27 16:19 | CT_ITS ---
STUDY: CTA CHEST REASON FOR EXAM: Female, 58 years old. Dyspnea RADIATION DOSAGE (If Supplied By Facility): CTDIvol = ( 13.87 ) mGy, DLP = ( 544.09 ) mGycm TECHNIQUE: The examination was performed with the intravenous administration of IV 100mL [id number]-[id number]. Post-processing of the angiographic images was performed, with multiplanar reformation and 3D reconstruction. Individualized dose optimization techniques were used for this CT. COMPARISON: CT of the abdomen dated 09/24/2022 FINDINGS: Tubes and lines: 1. No life-support noted. CTA: PULMONARY ARTERIES: There is normal configuration and contrast opacification of pulmonary outflow tract, main pulmonary arteries, segmental and intersegmental pulmonary arteries bilaterally without evidence of intraluminal filling defects. AORTIC ARCH: The aortic arch and descending aorta have normal configuration. No evidence of dissection or aneurysmal dilatation. HEART: Cardiac contour is normal. There is small pericardial effusion. Coronary vascular calcifications are present. CT CHEST: LUNGS: [Minimal atelectasis at the RIGHT lung base. Remaining lung zones are clear, no consolidation, no effusion.. No mass. No consolidation. PLEURAL SPACES: Unremarkable, no effusion or pneumothorax.. MEDIASTINUM AND LYMPH NODES: 1. No masses or adenopathy. 2. Fluid-filled distended esophagus is noted. There is a hiatal hernia and circumferential soft tissue thickening in the region of the GE junction, and surgical staple line is present... 3. 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 BONES: Unremarkable ABDOMEN: Within normal limits. Other: None IMPRESSIONS: 1. No CTA evidence of pulmonary embolism. 2. No CTA evidence of aortic aneurysm or dissection 3. Normal CT appearance of the heart and pericardium. 4. No focal infiltrate. Mild basilar atelectasis noted. 5. Fluid-filled distended esophagus, persistent findings of hiatal hernia and postoperative changes at the GE junction. Electronically Signed: Herman Douglas MD at 18:06 EDT , CT/CTA Chest W/WO Contrast IMPRESSION: undefined
[2023-08-27 16:20] VITALS: BP 135/68; PULSE 97; RESP 26; RESP 28; TEMP 37.6; O2SAT 100; O2SAT 97
--- NOTE | 2023-08-27 16:23 | EDS_ITS ---
HPI <JANES Rosario - Last Filed: 08/27/23 18:33> History of Present Illness Chief Complaint: Shortness of Breath Narrative Narrative: 58-year-old female has had about a week and a half of congestion and dry cough with wheezing. She does not smoke and has no known history of asthma or COPD. She was seen in the emergency department twice and had negative x-rays. She was prescribed prednisone and a Z-Moshe but states she could not pick it up from the pharmacy until today and took the first dose this morning. It was prednisone 40 mg. She also has used an inhaler with minimal relief. She states she got in such a big coughing spell today that she vomited and started sweating and had chest heaviness and presents for evaluation. [facility] <JANES Rosario - Last Filed: 08/27/23 18:33> [facility] Medical History Post-menopausal Wears contact lenses Wears glasses Wears dentures Vertigo History of renal disease High cholesterol Easy bruising History of IBS Gastric reflux Non-smoker Shortness of breath on exertion Leg cramps History of edema Hypertension Gout Exocrine pancreatic insufficiency Chronic diarrhea Stage III chronic kidney disease Obesity Post-surgical hypoparathyroidism Hypothyroidism (acquired) History of blood transfusion Obstructive sleep apnea Anxiety disorder, unspecified Major depressive disorder, 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 Migraine Multiple endocrine neoplasia type 1 (MEN1) Insomnia Anxiety Edema Allergic rhinitis ADHD Vitamin D deficiency Depression Hypothyroidism Restless leg syndrome Post traumatic stress disorder GERD (gastroesophageal reflux disease) Irritable bowel syndrome Anemia Chronic kidney disease, stage 3 Sleep apnea Osteoarthritis of right knee Difficulty balancing Knee pain Fatigue Anemia Kidney disease Arthritis history of left foot fracture History of kidney stones Ureteral calculus Home Medications ?Medication ?Instructions ?Recorded ?Last Taken ?Type cyanocobalamin (vitamin B-12) 500 1,000 mcg PO DAILY@0800 Supplement 09/16/17 History mcg tablet cholecalciferol (vitamin D3) 50 1,250 mcg PO DAILY bone 09/24/21 Unknown History mcg (2,000 unit) capsule (Vitamin D3) levothyroxine 100 mcg tablet 100 mcg PO DAILY thyroid 09/24/21 11/12/22 History bupropion HCl 300 mg 24 hr tablet, See Rx Instructions .Route 04/29/23 Unknown Rx extended release .COMPLEX #90 tabs calcitriol 0.25 mcg capsule 0.75 mcg (3 x 0.25 mcg) PO DAILY 05/06/23 Unknown Rx 30 days #90 caps cariprazine 1.5 mg capsule 1.5 mg PO DAILY #30 caps 06/10/23 Unknown Rx vortioxetine 20 mg tablet 20 mg PO DAILY depression #30 tabs 07/07/23 Unknown Rx azelastine 0.05 % eye drops 1 drp ophthalmic (eye) BID #6 mL 07/08/23 Unknown Rx atorvastatin 20 mg tablet 20 mg PO DAILY cholesterol #90 tabs 07/16/23 Unknown Rx benztropine 0.5 mg tablet 0.5 mg PO BID EPS #60 tabs 08/10/23 Unknown Rx ciprofloxacin HCl 0.3 % eye drops See Rx Instructions ophthalmic 08/11/23 Unknown Rx (eye) .COMPLEX #10 mL albuterol sulfate 90 mcg/actuation 1 - 2 puff inhalation Q4H PRN PRN 08/22/23 Unknown Rx aerosol inhaler (Ventolin HFA) Wheezing ##1 prednisone 20 mg tablet 40 mg (2 x 20 mg) PO DAILY #10 08/22/23 Unknown Rx TABLETS alprazolam 0.5 mg tablet 0.5 mg PO DAILY PRN anxiety 08/26/23 Unknown History azithromycin 250 mg tablet See Rx Instructions PO .COMPLEX #6 08/26/23 Unknown Rx (Zithromax Z-Moshe) tabs prednisone 20 mg tablet 40 mg (2 x 20 mg) PO DAILY 5 days 08/26/23 Unknown Rx #10 tabs Allergy/AdvReac Type Severity Reaction Status Date / Time Iodinated Contrast Media Allergy Rash Verified 08/27/23 16:05 (PILAR) propranolol Allergy unknown Verified 08/27/23 16:05 iron AdvReac Other Verified 08/27/23 16:05 morphine AdvReac Rash Verified 08/27/23 16:05 ondansetron (From Zofran) AdvReac Other Verified 08/27/23 16:05 Family History Mother Stomach cancer Anemia Arthritis MEN, type 1 Father Pneumonia Anxiety Arthritis Depression Surgical History History of esophagogastroduodenoscopy (EGD) History of colonoscopy history of right collar bone surgery H/O right knee surgery History of hysterectomy History of parathyroidectomy history of gastric sleeve History of cholecystectomy Social History adopted: No household members: none housing: apartment current occupational status: unemployed current occupation: disability history of recent travel: No sexually active: No Smoking Status: Never smoker Electronic Cigarette Use: not used alcohol intake: current alcohol intake frequency: holidays/special occasions only details: once or twice a year substance use type: does not use, former substance user and marijuana diet: low salt well-balanced diet: about half the time caffeine: Yes eating out: 4 or more times/week during the past year weight has: increased > 10 lbs what type of physical activity do you participate in: walking frequency: 1-2 times per week seatbelt use: always do you feel safe at home: Yes ROS <JANES Rosario - Last Filed: 08/27/23 18:33> ROS ED ROS Narrative Constitutional: Negative for fever, chills. ENT: Positive for rhinorrhea. CVS: Positive for chest pain. Respiratory: Positive for shortness of breath, cough. GI: Negative for abdominal pain. EXAM <JAENS Rosario - Last Filed: 08/27/23 18:33> Physical Exam Narrative Exam Narrative: CONST: Patient in mild respiratory distress, diaphoretic. EYES: Normal inspection. ENT: Normal inspection, moist mucous membranes. NECK: Normal inspection. RESP: Tachypneic 24/minute, expiratory wheezing in both bases. CVS: Regular rate and rhythm, no murmur, no gallop. SKIN: Color normal, no rash, warm, dry, intact. EXTREMITIES: Normal appearance, no pedal edema. NEURO: Alert and answering questions appropriately. PSYCH: Normal affect. Const Vital Signs: 08/27/23 16:05 08/27/23 16:20 08/27/23 16:20 Temperature 98 F Temperature Source Temporal Pulse Rate 114 H 97 Respiratory Rate 26 H 26 H Respiratory Effort Respiratory Depth Respiratory Pattern Blood Pressure 178/96 H Blood Pressure Mean 123 Pulse Ox 97 100 Oxygen Delivery Method Room Air Room Air 08/27/23 16:20 08/27/23 16:34 08/27/23 18:04 Temperature 99.7 F H 98.5 F Temperature Source Oral Oral Pulse Rate 97 80 Respiratory Rate 28 H 18 Respiratory Effort Short of Breath Respiratory Depth Deep Respiratory Pattern Tachypnea Blood Pressure 135/68 H 128/83 H Blood Pressure Mean 90 98 Pulse Ox 97 97 Oxygen Delivery Method Room Air Room Air Room Air 08/27/23 18:38 Temperature 98.5 F Temperature Source Pulse Rate 89 Respiratory Rate 16 Respiratory Effort Respiratory Depth Respiratory Pattern Blood Pressure 115/87 H Blood Pressure Mean 96 Pulse Ox 98 Oxygen Delivery Method <Dr. Agustin Amaya DO - Last Filed: 08/28/23 00:27> Physical Exam Const Vital Signs: 08/27/23 16:05 08/27/23 16:20 08/27/23 16:20 Temperature 98 F Temperature Source Temporal Pulse Rate 114 H 97 Respiratory Rate 26 H 26 H Respiratory Effort Respiratory Depth Respiratory Pattern Blood Pressure 178/96 H Blood Pressure Mean 123 Pulse Ox 97 100 Oxygen Delivery Method Room Air Room Air 08/27/23 16:20 08/27/23 16:34 08/27/23 18:04 Temperature 99.7 F H 98.5 F Temperature Source Oral Oral Pulse Rate 97 80 Respiratory Rate 28 H 18 Respiratory Effort Short of Breath Respiratory Depth Deep Respiratory Pattern Tachypnea Blood Pressure 135/68 H 128/83 H Blood Pressure Mean 90 98 Pulse Ox 97 97 Oxygen Delivery Method Room Air Room Air Room Air 08/27/23 18:38 Temperature 98.5 F Temperature Source Pulse Rate 89 Respiratory Rate 16 Respiratory Effort Respiratory Depth Respiratory Pattern Blood Pressure 115/87 H Blood Pressure Mean 96 Pulse Ox 98 Oxygen Delivery Method [facility] <JANES Rosario - Last Filed: 08/27/23 18:33> [facility] Narrative Medical decision making narrative: Differential: Viral URI with bronchospasm, pneumonia, PE Patient has a week and a half of URI symptoms and wheezing. She has been seen twice with negative chest x-rays. Just started a new prescription for prednisone and Z-Moshe this morning but comes in due to increased cough and dyspnea. She is hypertensive, tachycardic around 115 normal sinus rhythm, and tachypneic around 26/minute. She is saturating at 97% on room air. She has bibasilar expiratory wheezes. Since she does not have a history of lung disease and symptoms are worsening labs and a CTA was ordered. CBC shows normal white count of 9.9 and chronic anemia at 10.9. She has normal electrolytes and creatinine of 1.52 around baseline. Leukosis 237 likely from recent prednisone use as she took a burst last week from primary care and the dose this morning. EKG is nonischemic and troponin is 5. CTA shows no PE, infiltrate or acute pulmonary findings. There is GE junction soft tissue thickening and postsurgical changes. She reports a remote gastric bypass and states Dr. Friend did endoscopy 1 year ago which was unremarkable. After aerosols and IV Solu- Medrol 60 mg bolus patient feels significantly improved and vital signs of normalized. Ambulatory pulse ox is 97% she is comfortable going home. She has 4 more days of the Z-Moshe and prednisone as well as an albuterol inhaler. She was discharged in stable condition. Lab Data Attestation: I reviewed the patient's lab results. Labs: Laboratory Results - last 24 hr 08/27/23 16:24 WBC 9.9 RBC 5.09 Hgb 10.9 L Hct 36.4 L MCV 71.5 L MCH 21.4 L MCHC 29.9 L RDW Std Deviation 53.1 H RDW Coeff of Teena 21.1 H Plt Count 423 MPV 9.7 Immature Gran % (Auto) 0.900 Neut % (Auto) 91.0 H Lymph % (Auto) 6.8 L [place] % (Auto) 1.1 Eos % (Auto) 0.0 Baso % (Auto) 0.2 Absolute Neuts (auto) 9.0 H Absolute Lymphs (auto) 0.67 L Nucleated RBC % 0 Differential Comment SCANNED Anisocytosis 2+ Microcytosis 2+ Sodium 138 Potassium 3.9 Chloride 104 Carbon Dioxide 20.0 L Anion Gap 14 BUN 31 H Creatinine 1.52 H Estim Creat Clear Calc 62.34 Est GFR (MDRD) Af Amer 45 L Est GFR (MDRD) Non-Af 37 L BUN/Creatinine Ratio 20.4 H Glucose 237 H Calcium 8.1 L Troponin I High Sens 5 Radiography Diagnostic Testing: Clinical Impression(s) from Imaging Studies Chest CTA 08/27/23 16:19 IMPRESSION: undefined EKG Initial EKG: Attestation: I personally reviewed and interpreted this EKG as follows: Interpretation: Sinus Rhythm and No Acute Injury Pattern Comments: Normal sinus rhythm at 96 bpm Left axis deviation, no acute ischemic changes <Dr. Agustin Amaya, DO - Last Filed: 08/28/23 00:27> [facility] MDM Narrative Medical decision making narrative: Differential: Viral URI with bronchospasm, pneumonia, PE Patient has a week and a half of URI symptoms and wheezing. She has been seen twice with negative chest x-rays. Just started a new prescription for prednisone and Z-Moshe this morning but comes in due to increased cough and dyspnea. She is hypertensive, tachycardic around 115 normal sinus rhythm, and tachypneic around 26/minute. She is saturating at 97% on room air. She has bibasilar expiratory wheezes. Since she does not have a history of lung disease and symptoms are worsening labs and a CTA was ordered. CBC shows normal white count of 9.9 and chronic anemia at 10.9. She has normal electrolytes and creatinine of 1.52 around baseline. Leukosis 237 likely from recent prednisone use as she took a burst last week from primary care and the dose this morning. EKG is nonischemic and troponin is 5. CTA shows no PE, infiltrate or acute pulmonary findings. There is GE junction soft tissue thickening and postsurgical changes. She reports a remote gastric bypass and states Dr. Friend did endoscopy 1 year ago which was unremarkable. After aerosols and IV Solu- Medrol 60 mg bolus patient feels significantly improved and vital signs of normalized. Ambulatory pulse ox is 97% she is comfortable going home. She has 4 more days of the Z-Moshe and prednisone as well as an albuterol inhaler. She was discharged in stable condition. Attending note: Patient seen and evaluated with top precipitator operator helper. I perform my own [id number] evaluation. I agree with the plan of work-up. 10-day history increasing cough and wheeze. No asthma COPD or tobacco. Seen twice in the emerged part recently with negative x-ray. Seen 4 days ago placed on prednisone and Z-Moshe however no pickup until today and started taking. Symptoms worsen. No recent travel or surgeries. No history of PE or DVT. Reports history of M EN 1 with benign pancreatic lesion. No history of PE or DVT. Patient wheezing on exam. Tachycardic. Laboratory studies ordered. CTA chest to rule out PE or pneumonia. Results were negative. CT scan noted some lower esophageal fluid with postsurgical changes in the GE junction. She has had a gastric sleeve. She was ambulated after treatment pulse ox 97%. She is discharged outpatient follow-up with GI. Return precautions. Heart rate improved along with respiratory rate while in the ED. Lab Data Labs: Laboratory Results - last 24 hr 08/27/23 16:24 WBC 9.9 RBC 5.09 Hgb 10.9 L Hct 36.4 L MCV 71.5 L MCH 21.4 L MCHC 29.9 L RDW Std Deviation 53.1 H RDW Coeff of Teena 21.1 H Plt Count 423 MPV 9.7 Immature Gran % (Auto) 0.900 Neut % (Auto) 91.0 H Lymph % (Auto) 6.8 L [place] % (Auto) 1.1 Eos % (Auto) 0.0 Baso % (Auto) 0.2 Absolute Neuts (auto) 9.0 H Absolute Lymphs (auto) 0.67 L Nucleated RBC % 0 Differential Comment SCANNED Anisocytosis 2+ Microcytosis 2+ Sodium 138 Potassium 3.9 Chloride 104 Carbon Dioxide 20.0 L Anion Gap 14 BUN 31 H Creatinine 1.52 H Estim Creat Clear Calc 62.34 Est GFR (MDRD) Af Amer 45 L Est GFR (MDRD) Non-Af 37 L BUN/Creatinine Ratio 20.4 H Glucose 237 H Calcium 8.1 L Troponin I High Sens 5 Radiography Diagnostic Testing: Clinical Impression(s) from Imaging Studies Chest CTA 08/27/23 16:19 IMPRESSION: undefined Discharge Plan Triage Chief Complaint: Shortness of Breath ED Midlevel Provider: Marlys Alex ED Provider: Agustin Amaya Dx/Rx/DC Orders Clinical Impression: Upper respiratory infection, Acute bronchospasm Instructions: ED Bronchitis with Wheezing (Adult) Prescriptions: No Action cariprazine 1.5 mg capsule 1.5 mg PO DAILY Qty: 30 2RF azelastine 0.05 % drops 1 drp ophthalmic (eye) BID Qty: 6 0RF ciprofloxacin HCl 0.3 % drops See Rx Instructions ophthalmic (eye) .COMPLEX Qty: 10 0RF Rx Instructions: put 1-2 drps in affected eye(s) every 2hr up to 8 times/day x2days; then 4 times/day x5days ophthalmic (eye) cyanocobalamin (vitamin B-12) 500 MCG tablet 1,000 mcg PO DAILY@0800 levothyroxine 100 mcg Tablet 100 mcg PO DAILY cholecalciferol (vitamin D3) [Vitamin D3] 50 mcg (2,000 unit) Capsule 1,250 mcg PO DAILY alprazolam 0.5 mg tablet 0.5 mg PO DAILY PRN (Reason: anxiety) prednisone 20 mg tablet 40 mg PO DAILY 5 Days Qty: 10 0RF azithromycin [Zithromax Z-Moshe] 250 mg tablet See Rx Instructions .ROUTE .COMPLEX Qty: 6 0RF Rx Instructions: For 250 mg dose pack: take 500 mg today (day 1), then 250 mg for 4 days (days 2-5) prednisone 20 mg tablet 40 mg PO DAILY Qty: 10 0RF albuterol sulfate [Ventolin HFA] 90 mcg/actuation HFA aerosol inhaler 1 - 2 puff inhalation Q4H PRN PRN (Reason: Wheezing) Qty: 1 0RF bupropion HCl 300 mg tablet extended release 24 hr See Rx Instructions .ROUTE .COMPLEX Qty: 90 2RF Dose Instruction: take 1 tablet by mouth once daily for MOOD Rx Instructions: take 1 tablet by mouth once daily for MOOD calcitriol 0.25 mcg capsule 0.75 mcg PO DAILY 30 Days Qty: 90 6RF vortioxetine 20 mg tablet 20 mg PO DAILY Qty: 30 2RF atorvastatin 20 mg tablet 20 mg PO DAILY Qty: 90 0RF benztropine 0.5 mg tablet 0.5 mg PO BID Qty: 60 1RF Primary Care Provider: Alondra Davies Referrals: Alondra Davies MD [Primary Care Provider] - Activity Restrictions/Additional Instructions: Continue the prednisone and azithromycin that was prescribed at the last visit, use the inhaler as needed, return to ER if symptoms worsen. Print Language: Japanese Disposition Disposition: Home, Self Care Discharge Date/Time: 08/27/23 18:38
[2023-08-27] MEDS: Ipratropium/Albuterol Sulfate 3 ML AMPUL.NEB INHALATION (16:24)
[2023-08-27] MEDS: MethylPREDNISolone 125 MG/2 ML Vial 60 MG IV (16:31)
[2023-08-27] MEDS: Acetaminophen 500 MG Tablet 1000 MG PO (16:31)
[2023-08-27 16:37] LABS: Absolute Lymphocyte Count 0.67 X10^3/uL (0.83-4.51); Basophil# 0.02 X10^3/uL; Basophil% 0.2 % (0-1); Hematocrit 36.4 % (37-47); Hemoglobin 10.9 g/dL (12.0-15.0); Lymphocyte # 0.67 X10^3/ul (0.83-4.51); Lymphocyte % 6.8 % (19-41); Mean Corp Hgb Conc 29.9 g/dL (32-36); Mean Corpuscular Hgb 21.4 pg (27.0-32.0); Mean Corpuscular Volume 71.5 fL (81-99); Mean Platelet Vol. 9.7 fl (6.2-12.0); Monocyte# 0.11 X10^3/uL; Monocyte% 1.1 % (0-10); NRBC Flagged by Analyzer 0 % (0-5); Neutrophil # 9.01 X10^3/uL (2.7-7.7); POSITIVE MORPHOLOGY YES; Platelet Count 423 K/mm3 (150-450); RBC Distribution Width CV 21.1 % (11.6-14.6); RBC Distribution Width SD 53.1 fl (35.1-43.9); Red Blood Count 5.09 M/mm3 (4.2-5.4); White Blood Count 9.9 K/mm3 (4.4-11.0)
[2023-08-27 16:55] LABS: Anion Gap 14 (5-15); BUN 31 mg/dL (7-18); BUN/Creat Ratio 20.4 RATIO (10-20); Calcium,Total 8.1 mg/dL (8.5-10.1); Chloride 104 mmol/L (98-107); Creatinine, Serum 1.52 mg/dL (0.55-1.02); EST Glomerular Filtration Rate 37 mL/min (>60); Est Glom Filt Rate - Afr Amer 45 mL/min (>60); Estimated Creatinine Clearance 62.34 ml/min; Glucose 237 mg/dL (74-106); Potassium 3.9 mmol/L (3.5-5.1); Sodium Level 138 mmol/L (136-145); Troponin-I HS 5 pg/mL (3.0-54.0)
[2023-08-27 16:56] LABS: Differential Indicated SCAN CRITERIA MET
[2023-08-27 17:34] LABS: Anisocytosis 2+; Differential Comment SCANNED; Microcytosis 2+
[2023-08-27 18:04] VITALS: BP 128/83; PULSE 80; RESP 18; TEMP 36.9; O2SAT 97
[2023-08-27 18:22] VITALS: O2SAT 98
[2023-08-27 18:38] VITALS: BP 115/87; PULSE 89; RESP 16; TEMP 36.9; O2SAT 98
== END 2023-08-27 18:38 | disposition home or self-care (01) ==
PROVIDERS: Physician Assistant; Emergency Provider Emergency Medicine; PCP Internal Medicine; Visit Provider Emergency Medicine
DX: J06.9 Acute upper respiratory infection, unspecified (principal); F33.2 Major depressive disorder, recurrent severe without psychotic features; N18.30 Chronic kidney disease, stage 3 unspecified; E78.00 Pure hypercholesterolemia, unspecified; R06.02 Shortness of breath; I12.9 Hypertensive chronic kidney disease with stage 1 through stage 4 chronic kidney disease, or unspecified chronic kidney disease; E03.9 Hypothyroidism, unspecified; Z79.899 Other long term (current) drug therapy; F41.9 Anxiety disorder, unspecified; Z90.710 Acquired absence of both cervix and uterus; Z90.49 Acquired absence of other specified parts of digestive tract
CPT/HCPCS: 71275; 80048; 84484; 85025; 93005; 94640; 96374; 99283; Q9967; A4216

== ENCOUNTER 2023-09-03 14:34 | Emergency (ER) | payer MEDICARE, MEDICAID, SELFPAY ==
[2023-09-03 14:35] VITALS: BP 147/90; PULSE 96; RESP 28; TEMP 36.4; O2SAT 97; BMI 48.5
--- NOTE | 2023-09-03 14:39 | EKG12_ITS ---
Test Reason : CP/SOB Blood Pressure : / mmHG Vent. Rate : 094 BPM Atrial Rate : 094 BPM P-R Int : 144 ms QRS Dur : 094 ms QT Int : 368 ms P-R-T Axes : 014 -40 045 degrees QTc Int : 460 ms Normal sinus rhythm Left axis deviation Abnormal ECG Confirmed by José Miguel Patrick ([id number]), manager editorial MIKE SINGER ([id number]) on 09/06/2023 8:14:06 AM Referred By: Confirmed By:José Miguel Patrick
--- NOTE | 2023-09-03 14:50 | RAD_ITS ---
HISTORY: chest pain. TECHNIQUE: XR Chest 1 View. COMPARISON: 08/26/2023. FINDINGS: CARDIOMEDIASTINAL BORDERS: Cardiac silhouette within normal limits in size. Mediastinal contour also unchanged with a right paratracheal surgical clip and hiatal hernia noted. LUNGS: Small nodular opacity now seen in the left midlung. PLEURA: Mild blunting of the right costophrenic angle. OSSEOUS STRUCTURES: Degenerative change. Surgical clips in the abdomen. RAD/Chest 1 View (Portable) IMPRESSION: Small nodular opacity in the left midlung now seen, which may represent a focus of infection or inflammation. Trace right pleural effusion. Hiatal hernia. Electronically Signed: Nohemi Mckeon MD at 15:14 EDT ,
[2023-09-03 14:54] LABS: Absolute Lymphocyte Count 2.11 X10^3/uL (0.83-4.51); Absolute Neutrophil Count 8.5 X10^3/uL (2.0-7.7); Basophil# 0.05 X10^3/uL; Basophil% 0.4 % (0-1); Eosinophil# 0.59 X10^3/uL; Eosinophils% 4.9 % (0-5); Hematocrit 37.3 % (37-47); Hemoglobin 11.5 g/dL (12.0-15.0); Lymphocyte # 2.11 X10^3/ul (0.83-4.51); Lymphocyte % 17.5 % (19-41); Mean Corp Hgb Conc 30.8 g/dL (32-36); Mean Corpuscular Hgb 21.7 pg (27.0-32.0); Mean Corpuscular Volume 70.2 fL (81-99); Mean Platelet Vol. 9.2 fl (6.2-12.0); Monocyte# 0.74 X10^3/uL; Monocyte% 6.1 % (0-10); NRBC Flagged by Analyzer 0 % (0-5); Neutrophil # 8.51 X10^3/uL (2.7-7.7); Neutrophil % 70.5 % (47-70); POSITIVE MORPHOLOGY YES; Platelet Count 431 K/mm3 (150-450); RBC Distribution Width CV 21.8 % (11.6-14.6); RBC Distribution Width SD 53.3 fl (35.1-43.9); Red Blood Count 5.31 M/mm3 (4.2-5.4); White Blood Count 12.1 K/mm3 (4.4-11.0)
[2023-09-03 15:03] LABS: Differential Indicated SCAN CRITERIA MET
[2023-09-03 15:14] LABS: Anion Gap 10 (5-15); BUN 34 mg/dL (7-18); BUN/Creat Ratio 24.3 RATIO (10-20); Calcium,Total 7.5 mg/dL (8.5-10.1); Chloride 103 mmol/L (98-107); EST Glomerular Filtration Rate 41 mL/min (>60); Est Glom Filt Rate - Afr Amer 50 mL/min (>60); Estimated Creatinine Clearance 65.23 ml/min; Glucose 115 mg/dL (74-106); Potassium 3.9 mmol/L (3.5-5.1); Sodium Level 137 mmol/L (136-145); Troponin-I HS (w/2H Reflex) 9 pg/mL (3.0-54.0)
[2023-09-03 15:38] VITALS: BP 119/72; PULSE 91; RESP 22; TEMP 36.4; O2SAT 98
[2023-09-03 15:48] LABS: Anisocytosis 1+; Microcytosis 1+; Platelet Estimate SLT INC (ADEQ); Red Cell Morphology N CHROM NORMAL (NORM C&C)
[2023-09-03 15:49] LABS: Ovalocyte RARE
[2023-09-03 16:03] VITALS: BP 111/72; PULSE 95; RESP 20; O2SAT 92
--- NOTE | 2023-09-03 16:26 | ED.VIS.DYS ---
HPI History of Present Illness Chief Complaint: Shortness of Breath Detail of Chief Complaint: Shortness of breath Informant: patient Onset/Context/Timing Onset: Weeks (Approximately 3) Context: other (Does not recall activity with onset.) Timing: Continuous and Waxes and wanes Quality: Positive for Dyspnea on exertion and Wheezing (Is inner mitten and not presently); Negative for Orthopnea or PND Current Severity: Mild Maximum Severity: Moderate Worsened by: Exertion; Not Worsened By Lying flat or Coughing Relieved by: Nothing Associated Symptoms cough, rhinorrhea and post nasal drip; Negative for ear pain, fever, sore throat, subjective, chills, sweats, clear sputum, white sputum, yellow sputum or green sputum Chest Pain: Positive for Continuous and Tightness Narrative Narrative: Patient is a 58-year-old woman. She presents because of shortness of breath for the past 3 weeks. She denies orthopnea or PND. She denies history congestive heart failure. She does endorse rhinorrhea, congestion postnasal drainage and denies sore throat. Her cough is nonproductive. She denies history of PE or DVT. She denies leg pain, swelling discoloration. She also complains of a tight sensation mid chest with no associated symptoms or radiation. The chest discomfort is not made worse by anything and is not alleviated by anything. She denies history of hiatal hernia, reflux or peptic ulcer disease. She denies intolerance to greasy or fried foods. She denies history of pancreatitis. PE Risk Factors: Negative for Cancer, OCP + Smoking + > 35, Prior DVT or PE, Recent immobilization, Recent surgery or Recent travel Prior similar symptoms: Yes Recent Illness/Hospitalization: Yes (Patient has been been on prednisone for the past 2 weeks. 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 Migraine Multiple endocrine neoplasia type 1 (MEN1) Insomnia Anxiety Edema Allergic rhinitis ADHD Vitamin D deficiency Depression Hypothyroidism Restless leg syndrome Post traumatic stress disorder GERD (gastroesophageal reflux disease) Irritable bowel syndrome Anemia Chronic kidney disease, stage 3 Sleep apnea Osteoarthritis of right knee Difficulty balancing Knee pain Fatigue Anemia Kidney disease Arthritis history of left foot fracture History of kidney stones Ureteral calculus Home Medications ?Medication ?Instructions ?Recorded ?Last Taken ?Type cyanocobalamin (vitamin B-12) 500 1,000 mcg PO DAILY@0800 Supplement 09/16/17 07/15/18 History mcg tablet cholecalciferol (vitamin D3) 50 1,250 mcg PO DAILY bone 09/24/21 Unknown History mcg (2,000 unit) capsule (Vitamin D3) levothyroxine 100 mcg tablet 100 mcg PO DAILY thyroid 09/24/21 11/12/22 History bupropion HCl 300 mg 24 hr tablet, See Rx Instructions .Route 04/29/23 Unknown Rx extended release .COMPLEX #90 tabs calcitriol 0.25 mcg capsule 0.75 mcg (3 x 0.25 mcg) PO DAILY 05/06/23 Unknown Rx 30 days #90 caps vortioxetine 20 mg tablet 20 mg PO DAILY depression #30 tabs 07/07/23 Unknown Rx azelastine 0.05 % eye drops 1 drp ophthalmic (eye) BID #6 mL 07/08/23 Unknown Rx atorvastatin 20 mg tablet 20 mg PO DAILY cholesterol #90 tabs 07/16/23 Unknown Rx benztropine 0.5 mg tablet 0.5 mg PO BID EPS #60 tabs 08/10/23 Unknown Rx albuterol sulfate 90 mcg/actuation 1 - 2 puff inhalation Q4H PRN PRN 08/22/23 Unknown Rx aerosol inhaler (Ventolin HFA) Wheezing ##1 alprazolam 0.5 mg tablet 0.5 mg PO DAILY PRN anxiety 08/26/23 Unknown History albuterol sulfate 2.5 mg/0.5 mL 5 mg inhalation Q6H PRN shortness 08/31/23 Unknown Rx solution for nebulization of breath or wheezing #30 ea nebulizer and compressor #1 ea 08/31/23 Unknown Rx pantoprazole 20 mg tablet,delayed 20 mg PO DAILY #90 tabs 09/01/23 Unknown Rx release (Protonix) cariprazine 1.5 mg capsule 1.5 mg PO DAILY #30 caps 09/02/23 Unknown Rx albuterol sulfate 90 mcg/actuation 2 puff inhalation Q4H PRN PRN 09/03/23 Unknown Rx aerosol inhaler (Ventolin HFA) Wheezing ##1 fluticasone propionate 50 1 spray intranasal BID #16 grams 09/03/23 Unknown Rx mcg/actuation nasal spray,suspension (Allergy Relief (fluticasone)) Allergy/AdvReac Type Severity Reaction Status Date / Time Iodinated Contrast Media Allergy Rash Verified 09/03/23 15:39 (DYEE) propranolol Allergy unknown Verified 09/03/23 15:39 iron AdvReac Other Verified 09/03/23 15:39 morphine AdvReac Rash Verified 09/03/23 15:39 ondansetron (From Zofran) AdvReac Other Verified 09/03/23 15:39 Family History Mother Stomach cancer Anemia Arthritis MEN, type 1 Father Pneumonia Anxiety Arthritis Depression Surgical History History of esophagogastroduodenoscopy (EGD) History of colonoscopy history of right collar bone surgery H/O right knee surgery History of hysterectomy History of parathyroidectomy history of gastric sleeve History of cholecystectomy Social History adopted: No household members: none housing: apartment current occupational status: disabled current occupation: disability history of recent travel: No sexually active: No Smoking Status: Never smoker Electronic Cigarette Use: not used alcohol intake: current alcohol intake frequency: holidays/special occasions only details: once or twice a year substance use type: does not use, former substance user and marijuana diet: low salt well-balanced diet: about half the time caffeine: Yes eating out: 4 or more times/week during the past year weight has: increased > 10 lbs what type of physical activity do you participate in: walking frequency: 1-2 times per week seatbelt use: always do you feel safe at home: Yes ROS ROS ED Constitutional Constitutional ED: Denies chills, fever(s), sweats or weight loss Eyes Eyes: Denies blurry vision, change in vision or diplopia ENT ENT ED: Reports rhinorrhea; Denies ear pain or sore throat Cardiovascular Cardiovascular: Reports chest pain; Denies orthopnea, palpitations, paroxysmal nocturnal dyspnea or racing heartbeat Respiratory/Chest Respiratory/Chest: Reports cough, dyspnea and dyspnea on exertion; Denies orthopnea, paroxysmal nocturnal dyspnea or sputum Gastrointestinal Gastrointestinal: Denies abdominal pain, diarrhea, nausea or vomiting Musculoskeletal Musculoskeletal: Denies arthralgias, back pain, myalgias or neck pain Integumentary Denies rash Neurologic Neurologic: Denies headache(s), paresthesias or weakness Endocrine Endocrinology: Denies cold intolerance or heat intolerance Hematologic/Lymphatic Hematologic/Lymphatic: Denies easy bleeding or easy bruising EXAM Physical Exam Const Vital Signs: 09/03/23 14:35 09/03/23 15:36 09/03/23 15:38 Temperature 97.6 F L 97.6 F L Temperature Source Temporal Temporal Pulse Rate 96 91 Respiratory Rate 28 H 22 H Respiratory Effort Respiratory Depth Respiratory Pattern Blood Pressure 147/90 H 119/72 Blood Pressure Mean 109 87 Pulse Ox 97 98 Oxygen Delivery Method Room Air Room Air Room Air 09/03/23 15:38 09/03/23 16:03 09/03/23 17:05 Temperature Temperature Source Pulse Rate 95 69 Respiratory Rate 20 H 16 Respiratory Effort Normal Short of Breath Respiratory Depth Normal Respiratory Pattern Normal Blood Pressure 111/72 106/69 Blood Pressure Mean 85 81 Pulse Ox 92 95 Oxygen Delivery Method Room Air Room Air Room Air 09/03/23 17:47 Temperature 97.6 F L Temperature Source Pulse Rate 78 Respiratory Rate 19 H Respiratory Effort Respiratory Depth Respiratory Pattern Blood Pressure 111/68 Blood Pressure Mean 82 Pulse Ox 98 Oxygen Delivery Method Positive well nourished and well developed Constitutional Narrative: BMI is 48.6. She appears in no distress. Vital signs noted. Her first respiratory rate documented was 28. General Appearance ED: well developed HEENT Reports moist mucous membranes HEENT Narrative: Head is atraumatic normocephalic. Ears normal. Nares patent. Posterior pharynx is normal. Uvula is midline. Nasal mucosa is pale and figueroa in appearance consistent with allergic rhinitis. She does have clear drainage noted. Eyes PERRL and EOMs intact bilaterally General Eye ED: Negative for pale conjunctiva or scleral icterus Neck no lymphadenopathy, supple, no meningeal signs and no JVD Neck Narrative: Trachea is midline. There is no inspiratory stridor. When patient exhaled there was abnormal upper respiratory sounds noted but when specifically auscultated over the neck there was none. At that time she was asked to forcefully exhale. She apparently has an appointment see Dr. Joshua Ny for formal sleep study to determine if she has sleep apnea. She apparently snores significantly. Resp normal respiratory effort and clear to auscultation bilaterally Resp Narrative: There is no chest pain to palpation. Cardio regular rate, regular rhythm, S1 normal heart sound, S2 normal heart sound and no murmurs GI non-tender, non-distended and no masses GI Narrative: Unable to truly determine if patient has a past metabolically or palpable mass due to BMI of 48.6. Palpation: soft; Negative for hepatomegaly, splenomegaly, mass or rebound tenderness present Extremity normal to inspection General Extremety ED: Yes edema; Negative for tenderness or other findings General Extremity: edema; Negative for other findings Neuro oriented x3 and CN's II-XII intact bilaterally Levi Coma Scale: document GCS findings Spontaneous Obeys Commands Oriented 15 Sensorium / Orientation: alert Speech: speech normal Psych mental status grossly normal Skin no wounds and skin turgor normal General Skin Exam: Negative for jaundice Lesions: no lesions Rashes: no rashes MDM MDM MDM Narrative Medical decision making narrative: Differential diagnosis is pulmonary versus cardiac. With her having symptoms for 3 weeks with upper respiratory symptoms doubt pulmonary embolus. She may have pneumonia. The chest discomfort needs to be evaluated for cardiac versus noncardiac. Nurse protocol order set was initiated. Additional labs were ordered by me. History & Record Review Additional record(s) reviewed:: Prior outpatient record (Outpatient internal medicine visit for closed head injury February 2023) and Prior ED visit (Seen 26 August for acute bronchospasm. She was seen August 21 for bronchospasm. In May she was seen for dental abscess) Lab Data Attestation: I reviewed the patient's lab results. Lab results narrative: CBC reveals slight elevation of white count 12.1. There is slight shift with 70% segs. Electrolyte panel reveals slight elevation of glucose 115 with normal CO2 anion gap. BUN and creatinine are elevated at 34 1.4 with a BUN/creatinine ratio of 24:1.Creatinine has been elevated the past several months. This is essentially within her baseline. 2-hour troponin is 7 with a delta of -2. Labs: Laboratory Results - last 24 hr 09/03/23 09/03/23 14:48 16:59 WBC 12.1 H RBC 5.31 Hgb 11.5 L Hct 37.3 MCV 70.2 L MCH 21.7 L MCHC 30.8 L RDW Std Deviation 53.3 H RDW Coeff of Teena 21.8 H Plt Count 431 MPV 9.2 Immature Gran % (Auto) 0.600 Neut % (Auto) 70.5 H Lymph % (Auto) 17.5 L Morrill % (Auto) 6.1 Eos % (Auto) 4.9 Baso % (Auto) 0.4 Absolute Neuts (auto) 8.5 H Absolute Lymphs (auto) 2.11 Nucleated RBC % 0 Platelet Estimate SLT INC RBC Morphology N CHROM Anisocytosis 1+ Microcytosis 1+ Ovalocytes RARE Sodium 137 Potassium 3.9 Chloride 103 Carbon Dioxide 24.0 Anion Gap 10 BUN 34 H Creatinine 1.40 H Estim Creat Clear Calc 65.23 Est GFR (MDRD) Af Amer 50 L Est GFR (MDRD) Non-Af 41 L BUN/Creatinine Ratio 24.3 H Glucose 115 H Calcium 7.5 L Troponin I High Sens 9 7 Radiography Diagnostic Testing: Clinical Impression(s) from Imaging Studies Chest X-Ray 09/03/23 14:50 IMPRESSION: Small nodular opacity in the left midlung now seen, which may represent a focus of infection or inflammation. Trace right pleural effusion. Hiatal hernia. Electronically Signed: Nohemi Mckeon MD at 15:14 EDT [place] Location ID and State: [facility] / [place] Tel , Service support , Treatment and Re-Evaluation :: Patient was informed of her results. She be discharged to home with prescription for Flonase and albuterol. The elevated white count may be due to the fact that she is on prednisone. Discharge Plan Triage Chief Complaint: Shortness of Breath ED Provider: Galdino Camacho Dx/Rx/DC Orders Clinical Impression: Dyspnea, Allergic rhinitis, Chest tightness Instructions: ED Dyspnea, ED Allergic Rhinitis Prescriptions: New albuterol sulfate [Ventolin HFA] 90 mcg/actuation HFA aerosol inhaler 2 puff inhalation Q4H PRN PRN (Reason: Wheezing) Qty: 1 0RF fluticasone propionate [Allergy Relief (fluticasone)] 50 mcg/actuation spray,suspension 1 spray intranasal BID Qty: 16 0RF Rx Instructions: administer into each nostril No Action azelastine 0.05 % drops 1 drp ophthalmic (eye) BID Qty: 6 0RF albuterol sulfate 2.5 mg/0.5 mL solution for nebulization 5 mg inhalation Q6H PRN (Reason: shortness of breath or wheezing) Qty: 30 0RF (DME) nebulizer and compressor Device See Rx Instructions .Route Qty: 1 0RF Rx Instructions: As directed cyanocobalamin (vitamin B-12) 500 MCG tablet 1,000 mcg PO DAILY@0800 levothyroxine 100 mcg Tablet 100 mcg PO DAILY cholecalciferol (vitamin D3) [Vitamin D3] 50 mcg (2,000 unit) Capsule 1,250 mcg PO DAILY alprazolam 0.5 mg tablet 0.5 mg PO DAILY PRN (Reason: anxiety) albuterol sulfate [Ventolin HFA] 90 mcg/actuation HFA aerosol inhaler 1 - 2 puff inhalation Q4H PRN PRN (Reason: Wheezing) Qty: 1 0RF bupropion HCl 300 mg tablet extended release 24 hr See Rx Instructions .ROUTE .COMPLEX Qty: 90 2RF Dose Instruction: take 1 tablet by mouth once daily for MOOD Rx Instructions: take 1 tablet by mouth once daily for MOOD calcitriol 0.25 mcg capsule 0.75 mcg PO DAILY 30 Days Qty: 90 6RF vortioxetine 20 mg tablet 20 mg PO DAILY Qty: 30 2RF atorvastatin 20 mg tablet 20 mg PO DAILY Qty: 90 0RF benztropine 0.5 mg tablet 0.5 mg PO BID Qty: 60 1RF pantoprazole [Protonix] 20 mg tablet,delayed release (DR/EC) 20 mg PO DAILY Qty: 90 0RF cariprazine 1.5 mg capsule 1.5 mg PO DAILY Qty: 30 2RF Primary Care Provider: Alondra Davies Referrals: Alondra Davies MD [Primary Care Provider] - 1 Week if not improving Print Language: Serbian Disposition Disposition: Home, Self Care Discharge Date/Time: 09/03/23 17:48
[2023-09-03 16:50] LABS: Reflex Troponin-HS? (from REC) Y
[2023-09-03 17:05] VITALS: BP 106/69; PULSE 69; RESP 16; O2SAT 95
[2023-09-03 17:33] LABS: Troponin-I HS 7 pg/mL (3.0-54.0)
[2023-09-03 17:47] VITALS: BP 111/68; PULSE 78; RESP 19; TEMP 36.4; O2SAT 98
== END 2023-09-03 17:48 | disposition home or self-care (01) ==
PROVIDERS: Emergency Provider Emergency Medicine; PCP Internal Medicine; Visit Provider Emergency Medicine
DX: R06.00 Dyspnea, unspecified (principal); N18.30 Chronic kidney disease, stage 3 unspecified; R07.89 Other chest pain; E78.00 Pure hypercholesterolemia, unspecified; J30.9 Allergic rhinitis, unspecified; I12.9 Hypertensive chronic kidney disease with stage 1 through stage 4 chronic kidney disease, or unspecified chronic kidney disease; Z90.710 Acquired absence of both cervix and uterus; Z90.49 Acquired absence of other specified parts of digestive tract; E03.9 Hypothyroidism, unspecified; Z79.899 Other long term (current) drug therapy; F32.9 Major depressive disorder, single episode, unspecified; F41.9 Anxiety disorder, unspecified; K21.9 Gastro-esophageal reflux disease without esophagitis
CPT/HCPCS: 71045; 80048; 84484; 85025; 93005; 99284; A4216

== ENCOUNTER → 2023-09-15 | Outpatient (CLI) | payer MEDICARE, MEDICAID, SELFPAY | END | disposition home or self-care (01) | LOC: PSN 12:39 | PROVIDERS: PCP Internal Medicine; Referring Provider Internal Medicine; Visit Provider Internal Medicine | DX: R06.02 Shortness of breath (principal) | CPT/HCPCS: 94010; 94060; 94726; 94729 ==

== ENCOUNTER → 2023-10-12 | Outpatient (CLI) | payer MEDICARE, MEDICAID, SELFPAY ==
--- NOTE | 2023-10-12 13:01 | ECHOD_ITS ---
Reason For Study: SOB Procedure This was a 2D Doppler, Color Flow transthoracic echocardiogram. Myocardial strain analysis was performed in this exam to aid in the assessment of cardiac function. Exam performed in department. Left Ventricle Normal LV size. The estimated ejection fraction is 60 %. No evidence for diastolic dysfunction. No regional wall motion abnormalities noted. Right Ventricle Normal RV size. Normal systolic function. Atria Normal left atrium. Normal right atrium. No doppler evidence for ASD. Mitral Valve There is mild to moderate mitral annular calcification. There is no mitral valve stenosis. Mild (1+) mitral valve insufficiency. Tricuspid Valve There is no tricuspid stenosis. Trivial tricuspid valve insufficiency. Aortic Valve Trisinus/trileaflet aortic valve. There is no aortic stenosis. No aortic valve insufficiency. Pulmonic Valve There is no pulmonic valvular stenosis. Trivial pulmonic valve insufficiency. Great Vessels Normal aortic root. Pericardium/Pleural No pericardial effusion. MMode/2D Measurements & Calculations LVIDd: 4.1 cm IVSd: 1.2 cm Ao root diam: 3.8 cm LVIDs: 3.0 cm LVPWd: 0.99 cm LA dimension: 4.5 cm RVDd: 4.4 cm FS: 25.8 % LAV(MOD-bp): 61.8 ml LVAd ap4: 35.2 cm2 SV(MOD-sp4): 71.2 ml LAV(MOD-bp) Indexed: 25.2 ml/m2 LVLd ap4: 8.5 cm LAV(MOD-sp2): 57.9 ml EDV(MOD-sp4): 118.4 ml LAV(MOD-sp4): 55.6 ml EDV(sp4-el): 123.2 ml LVAs ap4: 20.1 cm2 LVLs ap4: 7.3 cm ESV(MOD-sp4): 47.2 ml ESV(sp4-el): 47.0 ml EF(MOD-sp4): 60.2 % EF(sp4-el): 61.8 % SV(sp4-el): 76.2 ml LA A4 area: 20.0 cm2 RA A4 area: 16.3 cm2 TAPSE: 1.9 cm Time Measurements MV dec time: 0.20 sec Doppler Measurements & Calculations MV E max tyler: 83.6 cm/sec Lat Peak E' Tyler: 11.4 cm/sec Med Peak E' Tyler: 9.0 cm/sec MV A max tyler: 97.7 cm/sec E/E' lat: 7.4 E/E' med: 9.3 MV E/A: 0.86 MV V2 max: 115.2 cm/sec MV P1/2t max tyler: 103.7 cm/sec Ao V2 max: 120.2 cm/sec MV max P.3 mmHg MV P1/2t: 75.7 msec Ao max P.8 mmHg MV V2 mean: 69.7 cm/sec MV dec slope: 401.0 cm/sec2 Ao V2 mean: 82.6 cm/sec MV mean P.2 mmHg Ao mean P.1 mmHg MV V2 VTI: 27.1 cm MVA(P1/2t): 2.9 cm2 Ao V2 VTI: 27.3 cm AV (velocity ratio): 0.84 LV V1 max: 99.6 cm/sec MR max tyler: 609.6 cm/sec PA V2 max: 110.0 cm/sec LV V1 max P.0 mmHg MR max P.6 mmHg PA max PG (full): 2.4 mmHg LV V1 mean P.6 mmHg MR mean tyler: 482.7 cm/sec PA V2 mean: 72.0 cm/sec LV V1 mean: 77.2 cm/sec MR mean P.4 mmHg PA mean PG (full): 1.2 mmHg LV V1 VTI: 23.0 cm MR VTI: 213.1 cm TR max tyler: 198.9 cm/sec TR max P.8 mmHg ECHO/Echo Complete Interpretation Summary The estimated ejection fraction is 60 %. No evidence for diastolic dysfunction. Mild (1+) mitral valve insufficiency. Ordering Physician: Alondra Davies Referring Physician: Joshua Ny Performed By: Brandon Solano RCS
== END | disposition home or self-care (01) ==
LOC: CVS 13:01
PROVIDERS: PCP Internal Medicine; Referring Provider Internal Medicine; Visit Provider Internal Medicine
DX: R06.02 Shortness of breath (principal); G47.33 Obstructive sleep apnea (adult) (pediatric)
CPT/HCPCS: 93306

== ENCOUNTER 2023-10-15 14:48 | Emergency (ER) | payer MEDICARE, MEDICAID, SELFPAY ==
[2023-10-15 14:49] VITALS: BP 121/82; BP 170/105; PULSE 110; PULSE 97; RESP 14; RESP 22; TEMP 36.7; O2SAT 100; O2SAT 94; BMI 52.2
--- NOTE | 2023-10-15 15:41 | EX.ED.DYSGE1 ---
HPI History of Present Illness Chief Complaint: Edema Informant: patient Narrative Narrative: History of lymphedema stage II chronic kidney disease followed by Dr. Banks progressive leg swelling over the past month. No shortness of breath and orthopnea. Try to get into her whipped topping mixer yesterday other close left message patient with urgent care and slight redness in her ankles she was put on nystatin along with Lasix. States he is now urinating. She states nephrology office called back she discussed with nursing who told her to come the emergency department. Reports is urinating more with her water pill. She is on a 5-day course. 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 Migraine Multiple endocrine neoplasia type 1 (MEN1) Insomnia Anxiety Edema Allergic rhinitis ADHD Vitamin D deficiency Depression Hypothyroidism Restless leg syndrome Post traumatic stress disorder GERD (gastroesophageal reflux disease) Irritable bowel syndrome Anemia Chronic kidney disease, stage 3 Sleep apnea Osteoarthritis of right knee Difficulty balancing Knee pain Fatigue Anemia Kidney disease Arthritis history of left foot fracture History of kidney stones Ureteral calculus Home Medications ?Medication ?Instructions ?Recorded ?Last Taken ?Type cyanocobalamin (vitamin B-12) 500 1,000 mcg PO DAILY@0800 Supplement 09/16/17 07/15/18 History mcg tablet cholecalciferol (vitamin D3) 50 1,250 mcg PO DAILY bone 09/24/21 Unknown History mcg (2,000 unit) capsule (Vitamin D3) levothyroxine 100 mcg tablet 100 mcg PO DAILY thyroid 09/24/21 11/12/22 History calcitriol 0.25 mcg capsule 0.75 mcg (3 x 0.25 mcg) PO DAILY 05/06/23 Unknown Rx 30 days #90 caps azelastine 0.05 % eye drops 1 drp ophthalmic (eye) BID #6 mL 07/08/23 Unknown Rx atorvastatin 20 mg tablet 20 mg PO DAILY cholesterol #90 tabs 05/10/24 Unknown Rx pantoprazole 20 mg tablet,delayed 20 mg PO DAILY #90 tabs 09/01/23 Unknown Rx release (Protonix) albuterol sulfate 90 mcg/actuation 2 puff inhalation Q4H PRN PRN 09/03/23 Unknown Rx aerosol inhaler (Ventolin HFA) Wheezing ##1 fluticasone propionate 50 1 spray intranasal BID #16 grams 09/03/23 Unknown Rx mcg/actuation nasal spray,suspension (Allergy Relief (fluticasone)) albuterol sulfate 2.5 mg/3 mL 2.5 mg (3 mL) inhalation Q6H PRN 09/05/23 Unknown Rx (0.083 %) solution for nebulization shortness of breath or wheezing #75 mL nebulizer and compressor #1 ea 09/05/23 Unknown Rx compr.stocking,thigh,reg,x-lrg #12 ea 09/14/23 Unknown Rx prednisone 10 mg tablet 10 mg PO TID 09/14/23 Unknown History vortioxetine 20 mg tablet 20 mg PO DAILY depression #30 tabs 09/28/23 Unknown Rx alprazolam 0.5 mg tablet 0.5 mg PO BID PRN anxiety #60 10/13/23 Unknown Rx TABLETS bupropion HCl 300 mg 24 hr tablet, See Rx Instructions .Route 10/13/23 Unknown Rx extended release .COMPLEX #90 tabs cariprazine 1.5 mg capsule 1.5 mg PO DAILY #30 caps 10/13/23 Unknown Rx Allergy/AdvReac Type Severity Reaction Status Date / Time Iodinated Contrast Media Allergy Rash Verified 10/15/23 14:49 (DYEE) propranolol Allergy unknown Verified 10/15/23 14:49 iron AdvReac Other Verified 10/15/23 14:49 morphine AdvReac Rash Verified 10/15/23 14:49 ondansetron (From Zofran) AdvReac Other Verified 10/15/23 14:49 Family History Mother Stomach cancer Anemia Arthritis MEN, type 1 Father Pneumonia Anxiety Arthritis Depression Surgical History History of esophagogastroduodenoscopy (EGD) History of colonoscopy H/O right knee surgery History of hysterectomy History of parathyroidectomy History of cholecystectomy history of right collar bone surgery history of gastric sleeve Social History adopted: No household members: none housing: apartment current occupational status: disabled current occupation: disability history of recent travel: No sexually active: No Smoking Status: Never smoker Electronic Cigarette Use: not used alcohol intake: current alcohol intake frequency: holidays/special occasions only details: once or twice a year substance use type: does not use, former substance user and marijuana diet: low salt well-balanced diet: about half the time caffeine: Yes eating out: 4 or more times/week during the past year weight has: increased > 10 lbs what type of physical activity do you participate in: walking frequency: 1-2 times per week seatbelt use: always do you feel safe at home: Yes ROS ROS ED Constitutional Constitutional ED: Denies chills, fever(s) or sweats Eyes Eyes: Denies change in vision ENT ENT ED: Denies dysphagia or sore throat Cardiovascular Cardiovascular: Reports leg edema; Denies chest pain, palpitations or racing heartbeat Respiratory/Chest Respiratory/Chest: Denies cough, dyspnea or dyspnea on exertion Gastrointestinal Gastrointestinal: Denies abdominal pain, diarrhea, nausea or vomiting Genitourinary Genitourinary ED: Denies dysuria, hematuria or urinary frequency Musculoskeletal Musculoskeletal: Denies back pain, extremity pain or neck pain Integumentary Reports rash; Denies wounds Neurologic Neurologic: Denies headache(s), paresthesias or weakness EXAM Physical Exam Const Vital Signs: 10/15/23 14:49 10/15/23 14:49 10/15/23 16:49 Temperature 98.1 F Temperature Source Temporal Pulse Rate 97 110 H Respiratory Rate 14 22 H Blood Pressure 121/82 H 170/105 H 109/70 Blood Pressure Mean 95 126 83 Pulse Ox 100 94 Oxygen Delivery Method Room Air Room Air 10/15/23 18:00 10/15/23 18:11 Temperature 97 F L Temperature Source Pulse Rate 74 75 Respiratory Rate 20 H 22 H Blood Pressure 114/72 113/66 Blood Pressure Mean 86 81 Pulse Ox 97 Oxygen Delivery Method Room Air Positive well nourished and well developed General Appearance ED: well developed and NAD HEENT Reports moist mucous membranes normocephalic and atraumatic Eyes EOMs intact bilaterally and conjunctivae normal General Eye ED: Yes normal appearance of both eyes Neck no lymphadenopathy and supple General: Negative for tenderness Chest Wall Chest: Negative for tenderness Resp normal respiratory effort and normal air movement Effort and Inspection: symmetric chest movement; Negative for respiratory distress Cardio regular rate, regular rhythm and no murmurs Peripheral Pulses: pulses 2+ throughout GI normal to inspection, nondistended, normoactive bowel sounds and non-tender Palpation: Negative for guarding or rebound tenderness present Back/Spine no CVA tenderness and no thoracic nor lumbar tenderness Extremity normal to inspection Extremity Narrative: Lymphedema to 3+ bilateral lower extremities. Bilateral inner ankle and feet is mild erythema on the left side there is demarcation under the fold with erythema. There is no streaking. No drainage. Skin is intact. General Extremety ED: Yes edema; Negative for tenderness General Extremity: edema Neuro oriented x3 and no sensory deficits noted Sensorium / Orientation: awake and alert Skin no rashes or lesions noted and no wounds MDM MDM MDM Narrative Medical decision making narrative: Interventions / MDM: Differential diagnosis: Lymphedema, CKD, tinea Diagnosis considered but do not suspect: Acute kidney injury however labs are stable. Cellulitis. My EKG interpretation: N/A Imaging independently reviewed and interpreted by myself: N/A External documents reviewed: N/A Test considered but not ordered:N/A ED course: Patient increasing swelling history of CKD. Her skin exam is consistent with a fungal infection. She is on nystatin. With her CKD history added check basic labs. Results creatinine 1.68 with GFR 33. Slightly elevated from previous however still stage III. She does report swelling is improving with the Lasix. She has 3 more days of this which she will finish. She will continue nystatin cream for fungal infection. She will follow-up with her whipped topping mixer. She is reassured. All questions were answered. Re-evaluation: stable Disposition discussed with patient/family/significant other: Patient Case discussed with consulting clinician: N/A This note was generated with [employer] dictation software. It may contain incorrect words, spelling, and punctuation that were not noted in checking the note before signing. Lab Data Attestation: I reviewed the patient's lab results. Labs: Laboratory Results - last 24 hr 10/15/23 15:55 WBC 8.6 RBC 5.09 Hgb 11.2 L Hct 36.5 L MCV 71.7 L MCH 22.0 L MCHC 30.7 L RDW Std Deviation 49.2 H RDW Coeff of Teena 19.4 H Plt Count 344 MPV 9.7 Immature Gran % (Auto) 0.200 Neut % (Auto) 56.7 Lymph % (Auto) 26.5 Knox % (Auto) 8.4 Eos % (Auto) 7.4 H Baso % (Auto) 0.8 Absolute Neuts (auto) 4.9 Absolute Lymphs (auto) 2.27 Nucleated RBC % 0 Sodium 141 Potassium 3.4 L Chloride 103 Carbon Dioxide 30.0 Anion Gap 8 BUN 18 Creatinine 1.68 H Estim Creat Clear Calc 56.83 Est GFR (MDRD) Af Amer 40 L Est GFR (MDRD) Non-Af 33 L BUN/Creatinine Ratio 10.7 Glucose 87 Calcium 7.9 L Discharge Plan Triage Chief Complaint: Edema ED Provider: Agustin Amaya Dx/Rx/DC Orders Clinical Impression: Lymphedema, CKD (chronic kidney disease), stage III, Tinea Instructions: ED Chronic Kidney Disease (CKD), ED Fungal Skin Infection (Tinea), ED Lymphedema Prescriptions: No Action azelastine 0.05 % drops 1 drp ophthalmic (eye) BID Qty: 6 0RF cariprazine 1.5 mg capsule 1.5 mg PO DAILY Qty: 30 2RF alprazolam 0.5 mg tablet 0.5 mg PO BID PRN (Reason: anxiety) Qty: 60 3RF bupropion HCl 300 mg tablet extended release 24 hr See Rx Instructions .ROUTE .COMPLEX Qty: 90 2RF Dose Instruction: take 1 tablet by mouth once daily for MOOD Rx Instructions: take 1 tablet by mouth once daily for MOOD prednisone 10 mg tablet 10 mg PO TID (DME) compr.stocking,thigh,reg,x-lrg Misc See Rx Instructions .Route Qty: 12 0RF Rx Instructions: As directed cyanocobalamin (vitamin B-12) 500 MCG tablet 1,000 mcg PO DAILY@0800 levothyroxine 100 mcg Tablet 100 mcg PO DAILY cholecalciferol (vitamin D3) [Vitamin D3] 50 mcg (2,000 unit) Capsule 1,250 mcg PO DAILY albuterol sulfate [Ventolin HFA] 90 mcg/actuation HFA aerosol inhaler 2 puff inhalation Q4H PRN PRN (Reason: Wheezing) Qty: 1 0RF fluticasone propionate [Allergy Relief (fluticasone)] 50 mcg/actuation spray,suspension 1 spray intranasal BID Qty: 16 0RF Rx Instructions: administer into each nostril calcitriol 0.25 mcg capsule 0.75 mcg PO DAILY 30 Days Qty: 90 6RF atorvastatin 20 mg tablet 20 mg PO DAILY Qty: 90 0RF pantoprazole [Protonix] 20 mg tablet,delayed release (DR/EC) 20 mg PO DAILY Qty: 90 0RF albuterol sulfate 2.5 mg /3 mL (0.083 %) solution for nebulization 2.5 mg inhalation Q6H PRN (Reason: shortness of breath or wheezing) Qty: 75 0RF (DME) nebulizer and compressor Device See Rx Instructions .Route Qty: 1 0RF Rx Instructions: As directed vortioxetine 20 mg tablet 20 mg PO DAILY Qty: 30 2RF Primary Care Provider: Alondra Davies Referrals: Alondra Davies MD [Primary Care Provider] - Shantal Moses MD [Med Staff - Consulting] - 1 Week Activity Restrictions/Additional Instructions: Your labs are stable. Continue your Lasix as prescribed and finish. Continue your fungal cream on your feet. Fungus infection usually do not resolve for 1 to 2 weeks. Print Language: Serbian Disposition Disposition: Home, Self Care Discharge Date/Time: 10/15/23 18:14
[2023-10-15 16:17] LABS: Absolute Lymphocyte Count 2.27 X10^3/uL (0.83-4.51); Absolute Neutrophil Count 4.9 X10^3/uL (2.0-7.7); Basophil# 0.07 X10^3/uL; Basophil% 0.8 % (0-1); Eosinophil# 0.63 X10^3/uL; Eosinophils% 7.4 % (0-5); Hematocrit 36.5 % (37-47); Hemoglobin 11.2 g/dL (12.0-15.0); Lymphocyte # 2.27 X10^3/ul (0.83-4.51); Lymphocyte % 26.5 % (19-41); Mean Corp Hgb Conc 30.7 g/dL (32-36); Mean Corpuscular Volume 71.7 fL (81-99); Mean Platelet Vol. 9.7 fl (6.2-12.0); Monocyte# 0.72 X10^3/uL; Monocyte% 8.4 % (0-10); NRBC Flagged by Analyzer 0 % (0-5); Neutrophil # 4.85 X10^3/uL (2.7-7.7); Neutrophil % 56.7 % (47-70); Platelet Count 344 K/mm3 (150-450); RBC Distribution Width CV 19.4 % (11.6-14.6); RBC Distribution Width SD 49.2 fl (35.1-43.9); Red Blood Count 5.09 M/mm3 (4.2-5.4); White Blood Count 8.6 K/mm3 (4.4-11.0)
[2023-10-15 16:28] LABS: Anion Gap 8 (5-15); BUN 18 mg/dL (7-18); BUN/Creat Ratio 10.7 RATIO (10-20); Calcium,Total 7.9 mg/dL (8.5-10.1); Chloride 103 mmol/L (98-107); Creatinine, Serum 1.68 mg/dL (0.55-1.02); EST Glomerular Filtration Rate 33 mL/min (>60); Est Glom Filt Rate - Afr Amer 40 mL/min (>60); Estimated Creatinine Clearance 56.83 ml/min; Glucose 87 mg/dL (74-106); Potassium 3.4 mmol/L (3.5-5.1); Sodium Level 141 mmol/L (136-145)
[2023-10-15 16:49] VITALS: BP 109/70
[2023-10-15 18:00] VITALS: BP 114/72; PULSE 74; RESP 20
[2023-10-15 18:11] VITALS: BP 113/66; PULSE 75; RESP 22; TEMP 36.1; O2SAT 97
== END 2023-10-15 18:14 | disposition home or self-care (01) ==
PROVIDERS: Emergency Provider Emergency Medicine; PCP Internal Medicine; Visit Provider Emergency Medicine
DX: I89.0 Lymphedema, not elsewhere classified (principal); N18.30 Chronic kidney disease, stage 3 unspecified; E78.00 Pure hypercholesterolemia, unspecified; R60.0 Localized edema; I12.9 Hypertensive chronic kidney disease with stage 1 through stage 4 chronic kidney disease, or unspecified chronic kidney disease; K21.9 Gastro-esophageal reflux disease without esophagitis; F32.A Depression, unspecified; Z79.899 Other long term (current) drug therapy; B35.9 Dermatophytosis, unspecified
CPT/HCPCS: 80048; 85025; 99283; A4216

== ENCOUNTER 2023-11-01 18:48 | Emergency (ER) | payer MEDICARE, MEDICAID, SELFPAY ==
[2023-11-01 18:50] VITALS: BP 138/87; PULSE 84; RESP 18; TEMP 36.3; O2SAT 95; BMI 53.9
[2023-11-01 20:49] VITALS: PULSE 75; RESP 18; O2SAT 98
--- NOTE | 2023-11-01 21:45 | EDS_ITS ---
HPI History of Present Illness Chief Complaint: Edema Informant: patient Narrative Narrative: Presents with bilateral lower leg pains when she gets off work. Started new job at [employer] 2 weeks ago. In the day pain increases. History of lymphedema. No was seen by myself 17 days ago for lymphedema and fungal infection. Fungal rash has improved. Leg swelling stable no worsening. No calf tenderness. No chest pains or shortness of breath. She has been using Tylenol, she is history of stage III kidney disease she also states she has moved to [facility] with her pain. She has been to express care she states nobody will help her more with medicines. 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 Migraine Multiple endocrine neoplasia type 1 (MEN1) Insomnia Anxiety Edema Allergic rhinitis ADHD Vitamin D deficiency Depression Hypothyroidism Restless leg syndrome Post traumatic stress disorder GERD (gastroesophageal reflux disease) Irritable bowel syndrome Anemia Chronic kidney disease, stage 3 Sleep apnea Osteoarthritis of right knee Difficulty balancing Knee pain Fatigue Anemia Kidney disease Arthritis history of left foot fracture History of kidney stones Ureteral calculus Home Medications ?Medication ?Instructions ?Recorded ?Last Taken ?Type cyanocobalamin (vitamin B-12) 500 1,000 mcg PO DAILY@0800 Supplement 09/16/17 07/15/18 History mcg tablet cholecalciferol (vitamin D3) 50 1,250 mcg PO DAILY bone 09/24/21 Unknown History mcg (2,000 unit) capsule (Vitamin D3) levothyroxine 100 mcg tablet 100 mcg PO DAILY thyroid 09/24/21 11/12/22 History azelastine 0.05 % eye drops 1 drp ophthalmic (eye) BID #6 mL 07/08/23 Unknown Rx atorvastatin 20 mg tablet 20 mg PO DAILY cholesterol #90 tabs 07/16/23 Unknown Rx pantoprazole 20 mg tablet,delayed 20 mg PO DAILY #90 tabs 09/01/23 Unknown Rx release (Protonix) albuterol sulfate 90 mcg/actuation 2 puff inhalation Q4H PRN PRN 09/03/23 Unknown Rx aerosol inhaler (Ventolin HFA) Wheezing ##1 fluticasone propionate 50 1 spray intranasal BID #16 grams 09/03/23 Unknown Rx mcg/actuation nasal spray,suspension (Allergy Relief (fluticasone)) albuterol sulfate 2.5 mg/3 mL 2.5 mg (3 mL) inhalation Q6H PRN 09/05/23 Unknown Rx (0.083 %) solution for nebulization shortness of breath or wheezing #75 mL nebulizer and compressor #1 ea 09/05/23 Unknown Rx compr.stocking,thigh,reg,x-lrg #12 ea 09/14/23 Unknown Rx vortioxetine 20 mg tablet 20 mg PO DAILY depression #30 tabs 09/28/23 Unknown Rx alprazolam 0.5 mg tablet 0.5 mg PO BID PRN anxiety #60 10/13/23 Unknown Rx TABLETS bupropion HCl 300 mg 24 hr tablet, See Rx Instructions .Route 10/13/23 Unknown Rx extended release .COMPLEX #90 tabs cariprazine 1.5 mg capsule 1.5 mg PO DAILY #30 caps 10/13/23 Unknown Rx benztropine 0.5 mg tablet 0.5 mg PO BID 11/01/23 Unknown History calcitriol 0.25 mcg capsule 0.25 mcg PO DAILY 11/01/23 Unknown History calcium carbonate 400 mg PO BID 11/01/23 Unknown History hydrocodone-acetaminophen 5-325mg 1 tab PO Q6H PRN PRN Pain 3 days 11/01/23 Unknown Rx 5mg-325mg #12 TABLETS potassium chloride 20 mEq 20 meq PO DAILY 11/01/23 Unknown History tablet,extended release vortioxetine 20 mg tablet 20 mg PO DAILY 11/01/23 Unknown History (Trintellix) Allergy/AdvReac Type Severity Reaction Status Date / Time Iodinated Contrast Media Allergy Rash Verified 11/01/23 18:50 (DYEE) propranolol Allergy unknown Verified 11/01/23 18:50 iron AdvReac Other Verified 11/01/23 18:50 morphine AdvReac Rash Verified 11/01/23 18:50 ondansetron (From Zofran) AdvReac Other Verified 11/01/23 18:50 Family History Mother Stomach cancer Anemia Arthritis MEN, type 1 Father Pneumonia Anxiety Arthritis Depression Surgical History History of esophagogastroduodenoscopy (EGD) History of colonoscopy H/O right knee surgery History of hysterectomy History of parathyroidectomy History of cholecystectomy history of right collar bone surgery history of gastric sleeve Social History adopted: No household members: none housing: apartment current occupational status: disabled current occupation: disability history of recent travel: No sexually active: No Smoking Status: Never smoker Electronic Cigarette Use: not used alcohol intake: current alcohol intake frequency: holidays/special occasions only details: once or twice a year substance use type: does not use, former substance user and marijuana diet: low salt well-balanced diet: about half the time caffeine: Yes eating out: 4 or more times/week during the past year weight has: increased > 10 lbs what type of physical activity do you participate in: walking frequency: 1-2 times per week seatbelt use: always do you feel safe at home: Yes ROS ROS ED Constitutional Constitutional ED: Denies chills, fever(s) or sweats Eyes Eyes: Denies change in vision ENT ENT ED: Denies dysphagia or sore throat Cardiovascular Cardiovascular: Denies chest pain, leg edema, palpitations or racing heartbeat Respiratory/Chest Respiratory/Chest: Denies cough, dyspnea or dyspnea on exertion Gastrointestinal Gastrointestinal: Denies abdominal pain, diarrhea, nausea or vomiting Genitourinary Genitourinary ED: Denies dysuria, hematuria or urinary frequency Musculoskeletal Musculoskeletal: Reports extremity pain; Denies back pain or neck pain Integumentary Denies rash or wounds Neurologic Neurologic: Denies headache(s), paresthesias or weakness EXAM Physical Exam Const Vital Signs: 11/01/23 18:50 11/01/23 19:53 11/01/23 20:49 Temperature 97.4 F L Temperature Source Temporal Pulse Rate 84 75 Respiratory Rate 18 18 Respiratory Effort Normal Non-Labored Respiratory Pattern Normal Blood Pressure 138/87 H Blood Pressure Mean 104 Pulse Ox 95 98 Oxygen Delivery Method Room Air Room Air 11/01/23 21:57 Temperature 98.7 F Temperature Source Pulse Rate 71 Respiratory Rate 18 Respiratory Effort Respiratory Pattern Blood Pressure 151/103 H Blood Pressure Mean 119 Pulse Ox 98 Oxygen Delivery Method Positive well nourished and well developed General Appearance ED: well developed and NAD HEENT Reports moist mucous membranes normocephalic and atraumatic Eyes EOMs intact bilaterally and conjunctivae normal General Eye ED: Yes normal appearance of both eyes Neck no lymphadenopathy and supple General: Negative for tenderness Chest Wall Chest: Negative for tenderness Resp normal respiratory effort and normal air movement Effort and Inspection: symmetric chest movement; Negative for respiratory distress Cardio regular rate, regular rhythm and no murmurs Peripheral Pulses: pulses 2+ throughout GI normal to inspection, nondistended, normoactive bowel sounds and non-tender Palpation: Negative for guarding or rebound tenderness present Back/Spine no CVA tenderness and no thoracic nor lumbar tenderness Extremity normal to inspection Extremity Narrative: Chronic lymphedema mild tenderness calves and anterior leg. Soft compartments. Pulses intact distally. General Extremety ED: Yes edema and tenderness General Extremity: edema Neuro oriented x3 and no sensory deficits noted Sensorium / Orientation: awake and alert Skin no rashes or lesions noted and no wounds MDM MDM MDM Narrative Medical decision making narrative: Interventions / MDM: Differential diagnosis: Lymphedema, leg pain, CKD stage III Diagnosis considered but do not suspect: N/A My EKG interpretation: N/A Imaging independently reviewed and interpreted by myself: N/A External documents reviewed: N/A Test considered but not ordered:N/A ED course: Patient presenting with pain in the day which she works for she started new job on her feet. She has chronic lymphedema. She has soft compartments. There is history of CKD therefore avoid NSAIDs. OARRS report was negative. Short course or additional pain medicines to help as written. Discussed side effects with the patient. Further testing outpatient with ultrasound due to not available today. Outpatient follow-up with PCP for continued medication treatment. All questions were answered. Re-evaluation: stable Disposition discussed with patient/family/significant other: Patient Case discussed with consulting clinician: N/A This note was generated with [employer] software. It may contain incorrect words, spelling, and punctuation that were not noted in checking the note before signing. Discharge Plan Triage Chief Complaint: Edema ED Provider: Agustin Amaya Dx/Rx/DC Orders Clinical Impression: Bilateral leg pain, CKD (chronic kidney disease) stage 3, GFR 30-59 ml/min, Lymphedema Instructions: ED Lymphedema Prescriptions: New hydrocodone-acetaminophen 5-325 mg tablet 1 tab PO Q6H PRN PRN (Reason: Pain) 3 Days Qty: 12 0RF No Action azelastine 0.05 % drops 1 drp ophthalmic (eye) BID Qty: 6 0RF cariprazine 1.5 mg capsule 1.5 mg PO DAILY Qty: 30 2RF alprazolam 0.5 mg tablet 0.5 mg PO BID PRN (Reason: anxiety) Qty: 60 3RF bupropion HCl 300 mg tablet extended release 24 hr See Rx Instructions .ROUTE .COMPLEX Qty: 90 2RF Dose Instruction: take 1 tablet by mouth once daily for MOOD Rx Instructions: take 1 tablet by mouth once daily for MOOD (DME) compr.stocking,thigh,reg,x-lrg Misc See Rx Instructions .Route Qty: 12 0RF Rx Instructions: As directed cyanocobalamin (vitamin B-12) 500 MCG tablet 1,000 mcg PO DAILY@0800 levothyroxine 100 mcg Tablet 100 mcg PO DAILY cholecalciferol (vitamin D3) [Vitamin D3] 50 mcg (2,000 unit) Capsule 1,250 mcg PO DAILY albuterol sulfate [Ventolin HFA] 90 mcg/actuation HFA aerosol inhaler 2 puff inhalation Q4H PRN PRN (Reason: Wheezing) Qty: 1 0RF fluticasone propionate [Allergy Relief (fluticasone)] 50 mcg/actuation spray,suspension 1 spray intranasal BID Qty: 16 0RF Rx Instructions: administer into each nostril benztropine 0.5 mg tablet 0.5 mg PO BID calcium carbonate 200 mg calcium (500 mg) tablet,chewable 400 mg PO BID potassium chloride 20 mEq tablet extended release 20 meq PO DAILY Trintellix 20 mg tablet 20 mg PO DAILY calcitriol 0.25 mcg capsule 0.25 mcg PO DAILY atorvastatin 20 mg tablet 20 mg PO DAILY Qty: 90 0RF pantoprazole [Protonix] 20 mg tablet,delayed release (DR/EC) 20 mg PO DAILY Qty: 90 0RF albuterol sulfate 2.5 mg /3 mL (0.083 %) solution for nebulization 2.5 mg inhalation Q6H PRN (Reason: shortness of breath or wheezing) Qty: 75 0RF (DME) nebulizer and compressor Device See Rx Instructions .Route Qty: 1 0RF Rx Instructions: As directed vortioxetine 20 mg tablet 20 mg PO DAILY Qty: 30 2RF Other Ambulatory Orders: Venous Duplex US - Farhad Extrem (Stat) Facility: [facility] - Location: [facility] Ordered By: Dr. Agustin Amaya Primary Care Provider: Alondra Davies Referrals: Alondra Davies MD [Primary Care Provider] - 1 Week Activity Restrictions/Additional Instructions: May return tomorrow for outpatient ultrasounds for further evaluation. Refill your pain medicines will need to be through your primary care team. Print Language: Kiswahili Disposition Disposition: Home, Self Care Discharge Date/Time: 11/01/23 21:59
[2023-11-01 21:57] VITALS: BP 151/103; PULSE 71; RESP 18; TEMP 37.1; O2SAT 98
== END 2023-11-01 21:59 | disposition home or self-care (01) ==
LOC: ED 21:46
PROVIDERS: Emergency Provider Emergency Medicine; PCP Internal Medicine; Visit Provider Emergency Medicine
DX: M79.605 Pain in left leg (principal); N18.30 Chronic kidney disease, stage 3 unspecified; I89.0 Lymphedema, not elsewhere classified; M79.662 Pain in left lower leg; I12.9 Hypertensive chronic kidney disease with stage 1 through stage 4 chronic kidney disease, or unspecified chronic kidney disease; E78.00 Pure hypercholesterolemia, unspecified; Z79.899 Other long term (current) drug therapy
CPT/HCPCS: 99282

== ENCOUNTER → 2023-11-02 | Outpatient (CLI) | payer MEDICARE, MEDICAID, SELFPAY ==
--- NOTE | 2023-11-02 13:34 | VDLE_ITS ---
Reason For Study: PAIN RIGHT LEFT GSV is normal. GSV is normal. CFV is compressible, spontaneous, phasic, CFV is compressible, spontaneous, phasic, competent and demonstrates normal competent, and demonstrates normal augmentation. augmentation. FV is compressible, spontaneous, phasic, FV is compressible, spontaneous, phasic, competent and demonstrates normal competent and demonstrates normal augmentation. augmentation. POP V is compressible, spontaneous, phasic, POP V is compressible, spontaneous, phasic, competent and demonstrates normal competent and demonstrates normal augmentation. augmentation. T/P Trunk is compressible. T/P Trunk is compressible. PTV is compressible. PTV is compressible. RT PerV is compressible. LT PerV is compressible. Procedure This is a venous duplex using B-mode, color flow and spectral Doppler. Exam performed in department. The study was technically difficult. D/T body habitus. A preliminary report was called and/or faxed to Dr. Steiner @ [phone] @ 2:10pm. VL/Venous Duplex US - Farhad Extrem Interpretation Summary Deep veins of the lower extremities are bilaterally patent and compressible seg mentally. There is no evidence of deep vein thrombosis on either side. Valvular competence appears in tact within the proximal deep venous systems bilaterally. The great saphenous veins appear bila terally patent and compressible segmentally. Ordering Physician: Agustin Amaya Referring Physician: Alondra Davies Performed By: Macie Brandon, RDCS, RVT
== END | disposition home or self-care (01) ==
PROVIDERS: PCP Internal Medicine; Referring Provider Emergency Medicine; Visit Provider Emergency Medicine
DX: M79.604 Pain in right leg (principal); M79.605 Pain in left leg
CPT/HCPCS: 93970

== ENCOUNTER → 2023-12-24 | Outpatient (CLI) | payer MEDICARE, MEDICAID, SELFPAY ==
--- NOTE | 2023-12-24 10:45 | RAD_ITS ---
HISTORY: cough for 3 months. TECHNIQUE: XR Chest 2 Views. COMPARISON: 09/03/2023. FINDINGS: CARDIOMEDIASTINAL BORDERS: Cardiac silhouette within normal limits in size. Mediastinal contour unremarkable with calcification of the aortic knob and right thoracic inlet surgical clip again seen. LUNGS: Chronic scarring in the right lung base. PLEURA: Chronic blunting of the right costophrenic angle. OTHER: Chronic calcified matrix lesion in the left humeral neck, likely enchondroma or bone infarct. Scoliosis and degenerative change. Surgical clips in the upper abdomen. RAD/Chest PA and Lateral IMPRESSION: Chronic mild scarring of the right lung base with trace pleural effusion or pleural scarring. Electronically Signed: Nohemi Mckeon MD at 10:09 EDT ,
[2023-12-24 11:24] LABS: Absolute Lymphocyte Count 1.99 X10^3/uL (0.83-4.51); Absolute Neutrophil Count 3.9 X10^3/uL (2.0-7.7); Basophil# 0.05 X10^3/uL; Basophil% 0.7 % (0-1); Eosinophil# 0.78 X10^3/uL; Eosinophils% 10.7 % (0-5); Hematocrit 37.8 % (37-47); Hemoglobin 11.1 g/dL (12.0-15.0); Lymphocyte # 1.99 X10^3/ul (0.83-4.51); Lymphocyte % 27.3 % (19-41); Mean Corp Hgb Conc 29.4 g/dL (32-36); Mean Corpuscular Hgb 21.8 pg (27.0-32.0); Mean Corpuscular Volume 74.1 fL (81-99); Mean Platelet Vol. 10.2 fl (6.2-12.0); Monocyte# 0.58 X10^3/uL; NRBC Flagged by Analyzer 0 % (0-5); Neutrophil # 3.87 X10^3/uL (2.7-7.7); Platelet Count 411 K/mm3 (150-450); RBC Distribution Width CV 19.8 % (11.6-14.6); RBC Distribution Width SD 51.9 fl (35.1-43.9); White Blood Count 7.3 K/mm3 (4.4-11.0)
[2023-12-24 11:52] LABS: Vitamin D,25 Hydroxy 29.9 ng/mL
[2023-12-24 12:01] LABS: ALB/GLOB Ratio 0.9 RATIO (0.9-2.4); AST(SGOT) 13 U/L (15-37); Alanine Aminotransfer ALT/SGPT 13 U/L (13-56); Albumin, Serum 3.4 g/dL (3.2-5.0); Alkaline Phosphatase 96 U/L (45-117); Anion Gap 5 (5-15); BUN 23 mg/dL (7-18); BUN/Creat Ratio 17.7 RATIO (10-20); Calcium,Total 8.8 mg/dL (8.5-10.1); Chloride 107 mmol/L (98-107); EST Glomerular Filtration Rate 45 mL/min (>60); Est Glom Filt Rate - Afr Amer 54 mL/min (>60); Globulin 3.6 g/dL (2.2-4.2); Glucose 102 mg/dL (74-106); Potassium 3.7 mmol/L (3.5-5.1); Sodium Level 141 mmol/L (136-145); T4 Free Direct 0.93 ng/dL (0.76-1.46)
== END | disposition home or self-care (01) ==
LOC: LAB 10:35
PROVIDERS: PCP Internal Medicine; Referring Provider Internal Medicine Endocrinology, Diabetes & Metabolism; Visit Provider Internal Medicine Endocrinology, Diabetes & Metabolism
DX: R05.9 Cough, unspecified (principal); E03.9 Hypothyroidism, unspecified; E89.2 Postprocedural hypoparathyroidism; E55.9 Vitamin D deficiency, unspecified
CPT/HCPCS: 36415; 71046; 80053; 82306; 84439; 84443; 85025

== ENCOUNTER 2024-01-03 14:41 | Emergency (ER) | payer MEDICARE, MEDICAID, SELFPAY ==
[2024-01-03 14:41] VITALS: BP 114/83; PULSE 108; RESP 20; TEMP 36; O2SAT 100; BMI 49.7
[2024-01-03 14:44] VITALS: BP 122/75; PULSE 80; RESP 16; O2SAT 98
== END 2024-01-03 15:33 | disposition left against medical advice (07) ==
LOC: ED 16:41
PROVIDERS: PCP Internal Medicine
DX: Z53.21 Procedure and treatment not carried out due to patient leaving prior to being seen by health care provider (principal)

== ENCOUNTER 2024-01-07 10:25 | Emergency (ER) | payer MEDICARE, MEDICAID, SELFPAY ==
[2024-01-07 10:26] VITALS: BP 103/73; PULSE 107; RESP 22; TEMP 36.4; O2SAT 97
[2024-01-07 10:28] VITALS: BP 104/63; PULSE 89; RESP 21; TEMP 36.6; O2SAT 94
--- NOTE | 2024-01-07 11:20 | RAD_ITS ---
STUDY: X-RAY CHEST REASON FOR EXAM: Female, 58 years old. Chest pain TECHNIQUE: Single AP portable view of the chest. COMPARISON: Comparison is made with prior study December 24, 2023. FINDINGS: Stable elevation of the right hemidiaphragm with blunting of the right costophrenic angle. Normal size heart. Normal mediastinum and joanna. Normal visualized pulmonary arteries. Normal visualized aortic arch and descending thoracic aorta. Normal visualized thoracic spine. Normal visualized ribs, clavicles, and shoulders. Surgical clip is seen overlying the right lower neck. There is no demonstrated abnormality of the visualized soft tissue structures of the upper abdomen. RAD/Chest 1 View (Portable) IMPRESSION: Stable elevation of the right hemidiaphragm with loculated right costophrenic angle. Electronically Signed: Nick Avery MD at 12:08 EDT ,
[2024-01-07 11:33] LABS: Absolute Lymphocyte Count 1.36 X10^3/uL (0.83-4.51); Basophil# 0.06 X10^3/uL; Basophil% 0.5 % (0-1); Eosinophil# 0.12 X10^3/uL; Eosinophils% 1.1 % (0-5); Hemoglobin 13.2 g/dL (12.0-15.0); Lymphocyte # 1.36 X10^3/ul (0.83-4.51); Lymphocyte % 12.1 % (19-41); Mean Corpuscular Hgb 21.5 pg (27.0-32.0); Mean Corpuscular Volume 71.8 fL (81-99); Mean Platelet Vol. 10.1 fl (6.2-12.0); Monocyte% 6.2 % (0-10); NRBC Flagged by Analyzer 0 % (0-5); Neutrophil % 79.7 % (47-70); POSITIVE MORPHOLOGY YES; Platelet Count 449 K/mm3 (150-450); RBC Distribution Width CV 20.7 % (11.6-14.6); RBC Distribution Width SD 50.6 fl (35.1-43.9); Red Blood Count 6.13 M/mm3 (4.2-5.4); White Blood Count 11.3 K/mm3 (4.4-11.0)
[2024-01-07] MEDS: Aspirin 81 MG TAB.CHEW 324 MG PO (11:36)
[2024-01-07 11:37] LABS: Differential Indicated SCAN CRITERIA MET
[2024-01-07 12:08] LABS: Anion Gap 12 (5-15); BUN 22 mg/dL (7-18); BUN/Creat Ratio 11.3 RATIO (10-20); CPK Total, Creatine Kinase 184 U/L (26-192); Calcium,Total 8.3 mg/dL (8.5-10.1); Chloride 99 mmol/L (98-107); Creatinine, Serum 1.94 mg/dL (0.55-1.02); EST Glomerular Filtration Rate 28 mL/min (>60); Est Glom Filt Rate - Afr Amer 34 mL/min (>60); Glucose 63 mg/dL (74-106); Magnesium 1.7 mg/dL (1.6-2.6); Potassium 3.4 mmol/L (3.5-5.1); Sodium Level 136 mmol/L (136-145)
[2024-01-07 12:28] LABS: Anisocytosis 2+; Differential Comment SCANNED; Microcytosis 1+; Platelet Estimate SLT INC (ADEQ); Target Cells RARE
[2024-01-07] MEDS: Potassium Chloride Oral Soln 20 MEQ/15 ML UDC 40 MEQ PO (13:21)
--- NOTE | 2024-01-07 13:35 | EX.ED.DYSGE1 ---
HPI History of Present Illness Chief Complaint: General Illness Narrative Narrative: Patient is a 58-year-old female who is presenting to the ER today with chief complaint of concerned about her potassium levels. Patient is coming in from work. Patient is complaining of intermittent bilateral anterior thigh cramping. Patient states that potassium levels have been low in the past, and she has been in the ER to receive oral and IV potassium in the past. Patient has no fever or chills. No chest pain or shortness of breath. Patient left work to come into the ER because she is having intermittent muscle cramping, and thought that her potassium levels were low. Patient looks well. Vital signs show mild tachycardia. Patient does take electrolytes and multivitamins at home daily. No acute complaints. No chest pain or shortness of breath. No recent traveling. No recent changes to her food or drink at home in the past week or 2. [facility] Medical History (Updated 01/07/24 @ 13:[address] Syed Crum, DO) Cough Allergic conjunctivitis Allergic dermatitis of eyelids of both eyes Post-menopausal Wears contact lenses Wears glasses Wears dentures Vertigo History of renal disease High cholesterol Easy bruising History of IBS Gastric reflux Non-smoker Shortness of breath on exertion Leg cramps History of edema Hypertension Gout Exocrine pancreatic insufficiency Chronic diarrhea Stage III chronic kidney disease Obesity Post-surgical hypoparathyroidism Hypothyroidism (acquired) History of blood transfusion Obstructive sleep apnea Anxiety disorder, unspecified Major depressive disorder, 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 Migraine Multiple endocrine neoplasia type 1 (MEN1) Insomnia Anxiety Edema Allergic rhinitis ADHD Vitamin D deficiency Depression Hypothyroidism Restless leg syndrome Post traumatic stress disorder GERD (gastroesophageal reflux disease) Irritable bowel syndrome Anemia Chronic kidney disease, stage 3 Sleep apnea Osteoarthritis of right knee Difficulty balancing Knee pain Fatigue Anemia Kidney disease Arthritis history of left foot fracture History of kidney stones Ureteral calculus Home Medications ?Medication ?Instructions ?Recorded ?Last Taken ?Type cyanocobalamin (vitamin B-12) 500 1,000 mcg PO DAILY@0800 Supplement 09/16/17 07/15/18 History mcg tablet cholecalciferol (vitamin D3) 50 1,250 mcg PO DAILY bone 09/24/21 Unknown History mcg (2,000 unit) capsule (Vitamin D3) atorvastatin 20 mg tablet 20 mg PO DAILY cholesterol #90 tabs 07/16/23 Unknown Rx fluticasone propionate 50 1 spray intranasal BID #16 grams 09/03/23 Unknown Rx mcg/actuation nasal spray,suspension (Allergy Relief (fluticasone)) albuterol sulfate 2.5 mg/3 mL 2.5 mg (3 mL) inhalation Q6H PRN 09/05/23 Unknown Rx (0.083 %) solution for nebulization shortness of breath or wheezing #75 mL nebulizer and compressor #1 ea 09/05/23 Unknown Rx compr.stocking,thigh,reg,x-lrg #12 ea 09/14/23 Unknown Rx alprazolam 0.5 mg tablet 0.5 mg PO BID PRN anxiety #60 10/13/23 Unknown Rx TABLETS bupropion HCl 300 mg 24 hr tablet, See Rx Instructions .Route 10/13/23 Unknown Rx extended release .COMPLEX #90 tabs cariprazine 1.5 mg capsule 1.5 mg PO DAILY #30 caps 10/13/23 Unknown Rx calcium carbonate 400 mg PO BID 11/01/23 Unknown History hydrocodone-acetaminophen 5-325mg 1 tab PO Q6H PRN PRN Pain 3 days 11/01/23 Unknown Rx 5mg-325mg #12 TABLETS potassium chloride 20 mEq 20 meq PO DAILY 11/01/23 Unknown History tablet,extended release vortioxetine 20 mg tablet 20 mg PO DAILY 11/01/23 Unknown History (Trintellix) azelastine 0.05 % eye drops 1 drp ophthalmic (eye) BID #6 mL 11/09/23 Unknown Rx pantoprazole 20 mg tablet,delayed 20 mg PO DAILY #90 tabs 11/22/23 Unknown Rx release (Protonix) benztropine 0.5 mg tablet 0.5 mg PO BID #60 TABLETS 11/29/23 Unknown Rx albuterol sulfate 90 mcg/actuation 2 puff inhalation Q4H PRN PRN 12/24/23 Unknown Rx aerosol inhaler (Ventolin HFA) Wheezing ##1 calcitriol 0.25 mcg capsule 0.75 mcg (3 x 0.25 mcg) PO DAILY 12/24/23 Unknown Rx #270 caps levothyroxine 100 mcg tablet 100 mcg PO DAILY thyroid #90 tabs 12/24/23 Unknown Rx Allergy/AdvReac Type Severity Reaction Status Date / Time Iodinated Contrast Media Allergy Rash Verified 01/07/24 10:28 (DYEE) propranolol Allergy unknown Verified 01/07/24 10:28 iron AdvReac Other Verified 01/07/24 10:28 morphine AdvReac Rash Verified 01/07/24 10:28 ondansetron (From Zofran) AdvReac Other Verified 01/07/24 10:28 Family History Mother Stomach cancer Anemia Arthritis MEN, type 1 Father Pneumonia Anxiety Arthritis Depression Surgical History History of esophagogastroduodenoscopy (EGD) History of colonoscopy H/O right knee surgery History of hysterectomy History of parathyroidectomy History of cholecystectomy history of right collar bone surgery history of gastric sleeve Social History adopted: No household members: none housing: apartment current occupational status: disabled current occupation: disability history of recent travel: No sexually active: No Smoking Status: Never smoker Electronic Cigarette Use: not used alcohol intake: current alcohol intake frequency: holidays/special occasions only details: once or twice a year substance use type: does not use, former substance user and marijuana diet: low salt well-balanced diet: about half the time caffeine: Yes eating out: 4 or more times/week during the past year weight has: increased > 10 lbs what type of physical activity do you participate in: walking frequency: 1-2 times per week seatbelt use: always do you feel safe at home: Yes ROS ROS ED ROS Narrative REVIEW OF SYSTEMS: Unless otherwise stated in this report the patient's positive and negative responses for review of systems for constitutional, eyes, ENT, cardiovascular, respiratory, gastrointestinal, neurological, , musculoskeletal, and integument systems and related systems to the presenting problem are either stated in the history of present illness or were not pertinent or were negative for the symptoms and/or complaints related to the presenting medical problem. EXAM Physical Exam Narrative Exam Narrative: Vital signs reviewed and patient is not hypoxic. General: The patient appears well and in no apparent distress. Patient is resting comfortably on cart. Not toxic, lethargic, or listless. Skin: Warm, dry, no pallor noted. There is no rash noted. Head: Normocephalic, atraumatic Eye: Normal conjunctiva, no drainage, EOMI. PERRL. Ears, Nose, Mouth, and Throat: oral mucosa is slightly dry. Nares patent. Mouth without vesicles. Cardiovascular: Regular Rate and Rhythm, no murmurs, gallops, or rubs Respiratory: Patient is in no distress, no accessory muscle use, lungs are clear to auscultation, no wheezing, rales or rhonchi Back: non-tender, no CVA tenderness bilaterally to percussion. NO CTLS midline or paraspinal tenderness to palpation. GI: Soft, obese, no tenderness to palpation, no masses appreciated. No rebound, guarding, or rigidity noted. Musculoskeletal: The patient has full range of motion of all extremities and joints with no difficulty. Patient has no motor, no sensory deficits. No rash anywhere. Neurological: A&O x4, normal speech, no focal neurological deficits. Psychiatric: Cooperative Const Vital Signs: 01/07/24 10:26 Temperature 97.6 F L Temperature Source Oral Pulse Rate 107 H Respiratory Rate 22 H Blood Pressure 103/73 Blood Pressure Mean 83 Pulse Ox 97 Oxygen Delivery Method Room Air MDM MDM MDM Narrative Medical decision making narrative: Patient's lab work shows no significant findings. Patient potassium was 3.4. Patient was given oral potassium to drink. Patient has chronic kidney disease, patient's BUN and creatinine are similar to previous BUN and creatinines. Patient will drink Gatorade and Powerade throughout the weekend. Patient continue taking multivitamins. Patient understands this, no questions at discharge. Patient looks well. Work note given. Lab Data Labs: Laboratory Results - last 24 hr 01/07/24 01/07/24 11:25 11:44 WBC 11.3 H RBC 6.13 H Hgb 13.2 Hct 44.0 MCV 71.8 L MCH 21.5 L MCHC 30.0 L RDW Std Deviation 50.6 H RDW Coeff of Teena 20.7 H Plt Count 449 MPV 10.1 Immature Gran % (Auto) 0.400 Neut % (Auto) 79.7 H Lymph % (Auto) 12.1 L [place] % (Auto) 6.2 Eos % (Auto) 1.1 Baso % (Auto) 0.5 Absolute Neuts (auto) 9.0 H Absolute Lymphs (auto) 1.36 Nucleated RBC % 0 Differential Comment SCANNED Platelet Estimate SLT INC Anisocytosis 2+ Microcytosis 1+ Target Cells RARE Sodium Cancelled 136 Potassium Cancelled 3.4 L Chloride Cancelled 99 Carbon Dioxide Cancelled 25.0 Anion Gap Cancelled 12 BUN Cancelled 22 H Creatinine Cancelled 1.94 H Estim Creat Clear Calc Cancelled Est GFR (MDRD) Af Amer Cancelled 34 L Est GFR (MDRD) Non-Af Cancelled 28 L BUN/Creatinine Ratio Cancelled 11.3 Glucose Cancelled 63 L Calcium Cancelled 8.3 L Magnesium Cancelled 1.7 Total Creatine Kinase Cancelled 184 Radiography Diagnostic Testing: Clinical Impression(s) from Imaging Studies Chest X-Ray 01/07/24 11:20 IMPRESSION: Stable elevation of the right hemidiaphragm with loculated right costophrenic angle. Electronically Signed: Nick Avery MD at 12:08 EDT , Discharge Plan Triage Chief Complaint: General Illness ED Provider: Syed Crum Dx/Rx/DC Orders Clinical Impression: Hypokalemia, Muscle cramping Instructions: ED Hypokalemia, ED Leg Spasm, ED Muscle Spasm Prescriptions: No Action albuterol sulfate [Ventolin HFA] 90 mcg/actuation HFA aerosol inhaler 2 puff inhalation Q4H PRN PRN (Reason: Wheezing) Qty: 1 0RF calcitriol 0.25 mcg capsule 0.75 mcg PO DAILY Qty: 270 3RF levothyroxine 100 mcg tablet 100 mcg PO DAILY Qty: 90 3RF cariprazine 1.5 mg capsule 1.5 mg PO DAILY Qty: 30 2RF alprazolam 0.5 mg tablet 0.5 mg PO BID PRN (Reason: anxiety) Qty: 60 3RF bupropion HCl 300 mg tablet extended release 24 hr See Rx Instructions .ROUTE .COMPLEX Qty: 90 2RF Dose Instruction: take 1 tablet by mouth once daily for MOOD Rx Instructions: take 1 tablet by mouth once daily for MOOD (DME) compr.stocking,thigh,reg,x-lrg Misc See Rx Instructions .Route Qty: 12 0RF Rx Instructions: As directed azelastine 0.05 % drops 1 drp ophthalmic (eye) BID Qty: 6 0RF cyanocobalamin (vitamin B-12) 500 MCG tablet 1,000 mcg PO DAILY@0800 cholecalciferol (vitamin D3) [Vitamin D3] 50 mcg (2,000 unit) Capsule 1,250 mcg PO DAILY fluticasone propionate [Allergy Relief (fluticasone)] 50 mcg/actuation spray,suspension 1 spray intranasal BID Qty: 16 0RF Rx Instructions: administer into each nostril calcium carbonate 200 mg calcium (500 mg) tablet,chewable 400 mg PO BID potassium chloride 20 mEq tablet extended release 20 meq PO DAILY Trintellix 20 mg tablet 20 mg PO DAILY hydrocodone-acetaminophen 5-325 mg tablet 1 tab PO Q6H PRN PRN (Reason: Pain) 3 Days Qty: 12 0RF atorvastatin 20 mg tablet 20 mg PO DAILY Qty: 90 0RF albuterol sulfate 2.5 mg /3 mL (0.083 %) solution for nebulization 2.5 mg inhalation Q6H PRN (Reason: shortness of breath or wheezing) Qty: 75 0RF (DME) nebulizer and compressor Device See Rx Instructions .Route Qty: 1 0RF Rx Instructions: As directed pantoprazole [Protonix] 20 mg tablet,delayed release (DR/EC) 20 mg PO DAILY Qty: 90 0RF benztropine 0.5 mg tablet 0.5 mg PO BID Qty: 60 1RF Stand Alone Forms: ED Work / School Excuse Primary Care Provider: Alondra Davies Referrals: Alondra Davies MD [Primary Care Provider] - Activity Restrictions/Additional Instructions: Increase fluids at home, especially Gatorade and Powerade for the next 3 to 4 days. Oral potassium has been given to you. Continue daily multivitamins. Drink at least half a gallon of Gatorade and Powerade daily for the next 2 or 3 days to help replace electrolytes and hydration. Print Language: Maltese Disposition Disposition: Home, Self Care
--- NOTE | 2024-01-07 18:21 | ED.RN ---
C/0 SHARP PAIN IN HR LEFT BREAST AREA. SHE STATES SHE HAS TO TAKE K+ AT HOME AND THINKS IT MIGHT BE THAT SHE NEEDS MORE.
== END 2024-01-07 12:00 | disposition home or self-care (01) ==
PROVIDERS: Emergency Provider Emergency Medicine; PCP Internal Medicine; Visit Provider Emergency Medicine
DX: E87.6 Hypokalemia (principal); N18.30 Chronic kidney disease, stage 3 unspecified; G47.33 Obstructive sleep apnea (adult) (pediatric)
CPT/HCPCS: 71045; 80048; 82550; 83735; 85025; 99283; A4216

== ENCOUNTER → 2024-01-31 | Outpatient (CLI) | payer MEDICARE, MEDICAID, SELFPAY ==
[2024-01-31 11:40] LABS: Bacteria 0 SEEN /hpf (None Seen); Mucous, Urine 0 SEEN /hpf (<or=2+); Red Blood Cells-Urine 0 SEEN /hpf (0-5); White Blood Cells 0 SEEN /hpf (0-5)
[2024-01-31 15:30] LABS: Color, Urine Yellow (Yellow); Glucose, Dipstick Normal (Normal); Ketone-Dipstick Negative (Negative); Leukocyte Esterase-Dipstick Negative /ul (Negative); Nitrite-Dipstick Negative (Negative); Occult Blood-Urine Negative /ul (Negative); Protein-Dipstick Negative (Negative); Urine Bilirubin Dipstick Negative (Negative); Urine Clarity Clear (Clear); Urine Urobilinogen Normal (Normal); Urine pH 6.5 (5.0 - 8.0)
[2024-01-31 15:45] LABS: Squamous Epithelial Cells - UA 0-5 SEEN /hpf (5-10)
== END | disposition home or self-care (01) ==
LOC: LABSPEC 11:38
PROVIDERS: PCP Internal Medicine; Referring Provider Internal Medicine; Visit Provider Internal Medicine
DX: R33.9 Retention of urine, unspecified (principal)
CPT/HCPCS: 81001

== ENCOUNTER 2024-02-18 10:30 | Emergency (ER) | payer MEDICARE, MEDICAID, SELFPAY ==
[2024-02-18 10:31] VITALS: BP 132/78; PULSE 109; RESP 18; TEMP 36.8; O2SAT 98; BMI 48.9
--- NOTE | 2024-02-18 10:42 | EKG12_ITS ---
Test Reason : CP Blood Pressure : */* mmHG Vent. Rate : 99 BPM Atrial Rate : 99 BPM P-R Int : 158 ms QRS Dur : 108 ms QT Int : 364 ms P-R-T Axes : 4 -38 43 degrees QTcB Int : 467 ms Normal sinus rhythm Left axis deviation Minimal voltage criteria for LVH, may be normal variant ( [place] product ) Abnormal ECG Confirmed by NORMA COURTNEY, ROSENDO ([id number]), make up editor ELISE CUEVAS ([id number]) on 02/23/2024 1:33:24 P M Referred By: MEGHANA/EVELIA Confirmed By: ROSENDO GREEN MD
--- NOTE | 2024-02-18 10:45 | ED.VIS.CHEST ---
HPI History of Present Illness Chief Complaint: Chest Pain Detail of Chief Complaint: Left-sided chest pain Informant: patient Onset/Context/Timing Onset: Hours (1.0 hours) Activity at onset: sudden Timing: Continuous and Waxes and wanes Quality: Positive for - (Pain) Location: Left Chest Current Severity: Mild Maximum Severity: Mild Worsened By: Nothing Relieved By: - (Breathing) Associated Symptoms: Negative for Nausea, Vomiting, Diaphoresis, Cough, Fever, Lightheadedness, Acid Reflux or Palpitations Narrative Narrative: Patient is a 58-year-old woman status postcholecystectomy with history of hypothyroidism, hyperlipidemia, anxiety and depression, BMI 48.9, peripheral edema who presents with left-sided chest pain at rest described as pain. Better when she breathes. No history of VTE. No risk factors for VTE. She does endorse thirst, dry mouth, polyuria and nocturia. She denies history of diabetes. She denies dysuria or hematuria. Patient denies orthopnea, PND or dyspnea on exertion. She denies chest discomfort the past 1 to 2 weeks with activity or exertion. She denies abdominal pain, nausea, vomiting or diarrhea. Denies black or maroon stool. She denies swelling of her legs, discoloration from baseline or pain in her legs. Prior Similar Symptoms: Yes (Approximately 1 month ago x 2. Did not seek medical attention.) Recent Illness/Hospitalization: No (Saw her primary care physician approximately 1 month ago.) CVD Risk Factors: Negative for Hypertension, Diabetes, Hypercholesterolemia or Family History 1' </=55 PE Risk Factors: Negative for Recent Travel/Surgery, Recent Immobilization, Prior DVT or PE, Cancer or OCP + Smoking + >/=35 TAD Risk Factors: Negative for Marfan's Syndrome, Hypertension or Family History [facility] Medical History Anxiety disorder, unspecified Major depressive disorder, recurrent severe without psychotic features Cough Allergic conjunctivitis Allergic dermatitis of eyelids of both eyes Post-menopausal Wears contact lenses Wears glasses Wears dentures Vertigo History of renal disease High cholesterol Easy bruising History of IBS Gastric reflux Non-smoker Shortness of breath on exertion Leg cramps History of edema Hypertension Gout Exocrine pancreatic insufficiency Chronic diarrhea Stage III chronic kidney disease Obesity Post-surgical hypoparathyroidism Hypothyroidism (acquired) History of blood transfusion Obstructive sleep apnea Multiple endocrine neoplasia (MEN) type I Migraine Multiple endocrine neoplasia type 1 (MEN1) Insomnia Anxiety Edema Allergic rhinitis ADHD Vitamin D deficiency Depression Hypothyroidism Restless leg syndrome Post traumatic stress disorder GERD (gastroesophageal reflux disease) Irritable bowel syndrome Anemia Chronic kidney disease, stage 3 Sleep apnea Osteoarthritis of right knee Difficulty balancing Knee pain Fatigue Anemia Kidney disease Arthritis history of left foot fracture History of kidney stones Ureteral calculus Home Medications ?Medication ?Instructions ?Recorded ?Last Taken ?Type cyanocobalamin (vitamin B-12) 500 1,000 mcg PO DAILY@0800 Supplement 09/16/17 07/15/18 History mcg tablet cholecalciferol (vitamin D3) 50 1,250 mcg PO DAILY bone 09/24/21 Unknown History mcg (2,000 unit) capsule (Vitamin D3) atorvastatin 20 mg tablet 20 mg PO DAILY cholesterol #90 tabs 07/16/23 Unknown Rx fluticasone propionate 50 1 spray intranasal BID #16 grams 09/03/23 Unknown Rx mcg/actuation nasal spray,suspension (Allergy Relief (fluticasone)) albuterol sulfate 2.5 mg/3 mL 2.5 mg (3 mL) inhalation Q6H PRN 09/05/23 Unknown Rx (0.083 %) solution for nebulization shortness of breath or wheezing #75 mL nebulizer and compressor #1 ea 09/05/23 Unknown Rx compr.stocking,thigh,reg,x-lrg #12 ea 09/14/23 Unknown Rx calcium carbonate 400 mg PO BID 11/01/23 Unknown History potassium chloride 20 mEq 20 meq PO DAILY 11/01/23 Unknown History tablet,extended release pantoprazole 20 mg tablet,delayed 20 mg PO DAILY #90 tabs 11/22/23 Unknown Rx release (Protonix) albuterol sulfate 90 mcg/actuation 2 puff inhalation Q4H PRN PRN 12/24/23 Unknown Rx aerosol inhaler (Ventolin HFA) Wheezing ##1 calcitriol 0.25 mcg capsule 0.75 mcg (3 x 0.25 mcg) PO DAILY 12/24/23 Unknown Rx #270 caps levothyroxine 100 mcg tablet 100 mcg PO DAILY thyroid #90 tabs 12/24/23 Unknown Rx alprazolam 0.5 mg tablet 0.5 mg PO BID PRN anxiety #60 01/19/24 Unknown Rx TABLETS bupropion HCl 300 mg 24 hr tablet, See Rx Instructions .Route 01/19/24 Unknown Rx extended release .COMPLEX #90 tabs cariprazine 1.5 mg capsule 1.5 mg PO DAILY #30 caps 01/19/24 Unknown Rx vortioxetine 20 mg tablet 20 mg PO DAILY #90 tabs 01/19/24 Unknown Rx (Trintellix) cetirizine 0.24 % eye drops in a 1 drp ophthalmic (eye) BID #30 ea 01/31/24 Unknown Rx dropperette Allergy/AdvReac Type Severity Reaction Status Date / Time Iodinated Contrast Media Allergy Rash Verified 02/18/24 10:31 (DYEE) propranolol Allergy unknown Verified 02/18/24 10:31 iron AdvReac Other Verified 02/18/24 10:31 morphine AdvReac Rash Verified 02/18/24 10:31 ondansetron (From Zofran) AdvReac Other Verified 02/18/24 10:31 Family History Mother Stomach cancer Anemia Arthritis MEN, type 1 Father Pneumonia Anxiety Arthritis Depression Surgical History History of esophagogastroduodenoscopy (EGD) History of colonoscopy H/O right knee surgery History of hysterectomy History of parathyroidectomy History of cholecystectomy history of right collar bone surgery history of gastric sleeve Social History adopted: No household members: none housing: apartment current occupational status: disabled current occupation: disability history of recent travel: No sexually active: No Smoking Status: Never smoker Electronic Cigarette Use: not used alcohol intake: current alcohol intake frequency: holidays/special occasions only details: once or twice a year substance use type: does not use, former substance user and marijuana diet: low salt well-balanced diet: about half the time caffeine: Yes eating out: 4 or more times/week during the past year weight has: increased > 10 lbs what type of physical activity do you participate in: walking frequency: 1-2 times per week seatbelt use: always do you feel safe at home: Yes ROS ROS ED Constitutional Constitutional ED: Denies chills, fever(s), subjective or sweats EXAM Physical Exam Const Vital Signs: 02/18/24 10:31 02/18/24 12:30 Temperature 98.3 F Temperature Source Oral Pulse Rate 109 H 87 Respiratory Rate 18 19 H Blood Pressure 132/78 H 130/70 H Blood Pressure Mean 96 90 Pulse Ox 98 98 Oxygen Delivery Method Room Air MDM [facility] Lab Data Attestation: I reviewed the patient's lab results. Lab results narrative: CBC is remarkable for microcytic indices. H&H is normal. Basic metabolic panel is remarkable for an elevated creatinine of 1.65. Potassium is 3.1. Lactic acidosis is normal. First troponin is normal at 4. Urinalysis is remarkable for occult blood and bilirubin. Microscopic is unremarkable. Labs: Laboratory Results - last 24 hr 02/18/24 02/18/24 02/18/24 10:47 10:53 11:42 WBC 10.2 RBC 5.34 Hgb 12.0 Hct 38.0 MCV 71.2 L MCH 22.5 L MCHC 31.6 L RDW Std Deviation 50.8 H RDW Coeff of Teena 20.7 H Plt Count 421 MPV 10.7 Immature Gran % (Auto) 0.300 Neut % (Auto) 63.5 Lymph % (Auto) 21.4 Nolan % (Auto) 7.5 Eos % (Auto) 6.8 H Baso % (Auto) 0.5 Absolute Neuts (auto) 6.5 Absolute Lymphs (auto) 2.19 Nucleated RBC % 0 Differential Comment SCANNED Platelet Estimate SLT INC Anisocytosis 2+ Microcytosis 2+ Target Cells RARE Acanthocytes (Spur) RARE Schistocytes RARE Sodium 136 Potassium 3.1 L Chloride 100 Carbon Dioxide 26.0 Anion Gap 10 BUN 16 Creatinine 1.64 H Estim Creat Clear Calc 55.90 Est GFR (MDRD) Af Amer 41 L Est GFR (MDRD) Non-Af 34 L BUN/Creatinine Ratio 9.8 L Glucose 141 H Lactic Acid 1.9 Calcium 8.4 L Total Bilirubin 0.60 AST 14 L ALT 13 Alkaline Phosphatase 102 Troponin I High Sens 4 Total Protein 7.2 Albumin 3.3 Globulin 3.9 Albumin/Globulin Ratio 0.8 L Urine Color Urine Clarity Urine pH Ur Specific Dilworth Urine Protein Urine Glucose (UA) Urine Ketones Urine Occult Blood Urine Nitrite Urine Bilirubin Urine Urobilinogen Ur Leukocyte Esterase Urine RBC Urine WBC Ur Squamous Epith Cells Urine Bacteria Hyaline Casts Urine Mucus POC Glucose 136 H 02/18/24 11:45 WBC RBC Hgb Hct MCV MCH MCHC RDW Std Deviation RDW Coeff of Teena Plt Count MPV Immature Gran % (Auto) Neut % (Auto) Lymph % (Auto) Nolan % (Auto) Eos % (Auto) Baso % (Auto) Absolute Neuts (auto) Absolute Lymphs (auto) Nucleated RBC % Differential Comment Platelet Estimate Anisocytosis Microcytosis Target Cells Acanthocytes (Spur) Schistocytes Sodium Potassium Chloride Carbon Dioxide Anion Gap BUN Creatinine Estim Creat Clear Calc Est GFR (MDRD) Af Amer Est GFR (MDRD) Non-Af BUN/Creatinine Ratio Glucose Lactic Acid Calcium Total Bilirubin AST ALT Alkaline Phosphatase Troponin I High Sens Total Protein Albumin Globulin Albumin/Globulin Ratio Urine Color Yellow Urine Clarity Sl. Cloudy Urine pH 6.0 Ur Specific Dilworth 1.015 Urine Protein 30 H Urine Glucose (UA) Normal Urine Ketones Negative Urine Occult Blood 10 H Urine Nitrite Negative Urine Bilirubin 1 H Urine Urobilinogen Normal Ur Leukocyte Esterase 100 H Urine RBC 0 SEEN Urine WBC 0-5 SEEN Ur Squamous Epith Cells 0-5 SEEN Urine Bacteria 0 SEEN Hyaline Casts 0-5 SEEN Urine Mucus 1+ POC Glucose Treatment and Re-Evaluation :: I was informed by nurse that patient is not willing to wait for her second troponin. Will have patient's sign out AGAINST MEDICAL ADVICE. Discharge Plan Triage Chief Complaint: Chest Pain ED Provider: Galdino Camacho Dx/Rx/DC Orders Clinical Impression: Left-sided chest pain, Hypothyroidism, Anxiety disorder, unspecified, Post-surgical hypoparathyroidism, Nondiabetic hyperglycemia, BMI greater than 40, Elevated blood-pressure reading without diagnosis of hypertension Instructions: ED Chest Pain, Uncertain Cause, ED Hypertension, To Be Confirmed, ED Hyperglycemia New Poss Diabetes Prescriptions: No Action albuterol sulfate [Ventolin HFA] 90 mcg/actuation HFA aerosol inhaler 2 puff inhalation Q4H PRN PRN (Reason: Wheezing) Qty: 1 0RF calcitriol 0.25 mcg capsule 0.75 mcg PO DAILY Qty: 270 3RF levothyroxine 100 mcg tablet 100 mcg PO DAILY Qty: 90 3RF (DME) compr.stocking,thigh,reg,x-lrg Misc See Rx Instructions .Route Qty: 12 0RF Rx Instructions: As directed Trintellix 20 mg tablet 20 mg PO DAILY Qty: 90 1RF cariprazine 1.5 mg capsule 1.5 mg PO DAILY Qty: 30 2RF bupropion HCl 300 mg tablet extended release 24 hr See Rx Instructions .ROUTE .COMPLEX Qty: 90 2RF Dose Instruction: take 1 tablet by mouth once daily for MOOD Rx Instructions: take 1 tablet by mouth once daily for MOOD alprazolam 0.5 mg tablet 0.5 mg PO BID PRN (Reason: anxiety) Qty: 60 3RF cetirizine 0.24 % dropperette 1 drp ophthalmic (eye) BID Qty: 30 0RF cyanocobalamin (vitamin B-12) 500 MCG tablet 1,000 mcg PO DAILY@0800 cholecalciferol (vitamin D3) [Vitamin D3] 50 mcg (2,000 unit) Capsule 1,250 mcg PO DAILY fluticasone propionate [Allergy Relief (fluticasone)] 50 mcg/actuation spray,suspension 1 spray intranasal BID Qty: 16 0RF Rx Instructions: administer into each nostril calcium carbonate 200 mg calcium (500 mg) tablet,chewable 400 mg PO BID potassium chloride 20 mEq tablet extended release 20 meq PO DAILY atorvastatin 20 mg tablet 20 mg PO DAILY Qty: 90 0RF albuterol sulfate 2.5 mg /3 mL (0.083 %) solution for nebulization 2.5 mg inhalation Q6H PRN (Reason: shortness of breath or wheezing) Qty: 75 0RF (DME) nebulizer and compressor Device See Rx Instructions .Route Qty: 1 0RF Rx Instructions: As directed pantoprazole [Protonix] 20 mg tablet,delayed release (DR/EC) 20 mg PO DAILY Qty: 90 0RF Primary Care Provider: Alondra Davies Referrals: Alondra Davies MD [Primary Care Provider] - As soon as possible Activity Restrictions/Additional Instructions: Dr. Camacho informing that my test results are not complete. I was informed that the cause of my chest pain is unknown. I was informed by Dr. Camacho because I am leaving prior to completion of workup the following complications may happen. You may suffer heart attack with complications requiring more advanced treatments i.e. bypass surgery. May result in collapse with the following disabilities: Unable to perform 1 or more activities of daily living, impairment of ability to think or concentrate, physical disability or mental impairment. May require need for life support. May lead to semivegetative vegetative state. Course may be complicated due to seizure disorder. This may result in my . I have been informed to follow-up with my doctor for additional testing since some of my laboratory studies are abnormal and need to have my blood sugar assessed and blood pressure assessed. I have also been informed that the possible complication not limited to what has been listed. Print Language: [place] Disposition Disposition: Against Medical Advice
[2024-02-18] MEDS: 0.9% Normal Saline (1000mL) 1,000 ML 1000 ML IV (10:53)
[2024-02-18 10:54] LABS: Absolute Lymphocyte Count 2.19 X10^3/uL (0.83-4.51); Absolute Neutrophil Count 6.5 X10^3/uL (2.0-7.7); Basophil# 0.05 X10^3/uL; Basophil% 0.5 % (0-1); Eosinophil# 0.69 X10^3/uL; Eosinophils% 6.8 % (0-5); Lymphocyte # 2.19 X10^3/ul (0.83-4.51); Lymphocyte % 21.4 % (19-41); Mean Corp Hgb Conc 31.6 g/dL (32-36); Mean Corpuscular Hgb 22.5 pg (27.0-32.0); Mean Corpuscular Volume 71.2 fL (81-99); Mean Platelet Vol. 10.7 fl (6.2-12.0); Monocyte# 0.77 X10^3/uL; Monocyte% 7.5 % (0-10); NRBC Flagged by Analyzer 0 % (0-5); Neutrophil # 6.49 X10^3/uL (2.7-7.7); Neutrophil % 63.5 % (47-70); POSITIVE MORPHOLOGY YES; Platelet Count 421 K/mm3 (150-450); RBC Distribution Width CV 20.7 % (11.6-14.6); RBC Distribution Width SD 50.8 fl (35.1-43.9); Red Blood Count 5.34 M/mm3 (4.2-5.4); White Blood Count 10.2 K/mm3 (4.4-11.0)
[2024-02-18 11:04] LABS: Differential Indicated SCAN CRITERIA MET
[2024-02-18 11:12] LABS: ALB/GLOB Ratio 0.8 RATIO (0.9-2.4); AST(SGOT) 14 U/L (15-37); Alanine Aminotransfer ALT/SGPT 13 U/L (13-56); Albumin, Serum 3.3 g/dL (3.2-5.0); Alkaline Phosphatase 102 U/L (45-117); Anion Gap 10 (5-15); BUN 16 mg/dL (7-18); BUN/Creat Ratio 9.8 RATIO (10-20); Calcium,Total 8.4 mg/dL (8.5-10.1); Chloride 100 mmol/L (98-107); Creatinine, Serum 1.64 mg/dL (0.55-1.02); EST Glomerular Filtration Rate 34 mL/min (>60); Est Glom Filt Rate - Afr Amer 41 mL/min (>60); Globulin 3.9 g/dL (2.2-4.2); Glucose 141 mg/dL (74-106); Potassium 3.1 mmol/L (3.5-5.1); Protein, Total 7.2 g/dL (6.4-8.2); Sodium Level 136 mmol/L (136-145)
[2024-02-18 11:12] LABS: Bedside Glucose 136 mg/dL (74-106)
[2024-02-18 11:29] LABS: Lactic Acid 1.9 mmol/L (0.4-1.9)
[2024-02-18 11:44] LABS: Bacteria 0 SEEN /hpf (None Seen); Color, Urine Yellow (Yellow); Glucose, Dipstick Normal (Normal); Ketone-Dipstick Negative (Negative); Leukocyte Esterase-Dipstick 100 /ul (Negative); Nitrite-Dipstick Negative (Negative); Occult Blood-Urine 10 /ul (Negative); Protein-Dipstick 30 mg/dl (Negative); Red Blood Cells-Urine 0 SEEN /hpf (0-5); Specific Gravity, Urine 1.015 (1.002-1.030); Urine Clarity Sl. Cloudy (Clear); Urine Urobilinogen Normal (Normal)
[2024-02-18 11:48] LABS: Differential Comment SCANNED; Platelet Estimate SLT INC (ADEQ)
[2024-02-18 11:49] LABS: Urine Bilirubin Dipstick 1 mg/dL (Negative)
[2024-02-18 11:49] LABS: Acanthocytes RARE; Anisocytosis 2+; Microcytosis 2+; Schistocytes RARE; Target Cells RARE
[2024-02-18 11:51] LABS: Hyaline Cast 0-5 SEEN /lpf (0-5); Mucous, Urine 1+ /hpf (<or=2+); Squamous Epithelial Cells - UA 0-5 SEEN /hpf (5-10); White Blood Cells 0-5 SEEN /hpf (0-5)
[2024-02-18 12:15] LABS: Troponin-I HS (w/2H Reflex) 4 pg/mL (3.0-54.0)
[2024-02-18 12:30] VITALS: BP 130/70; PULSE 87; RESP 19; O2SAT 98
--- NOTE | 2024-02-18 13:08 | ED.RN ---
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 DR. KOWALSKI INFORMED, HE REQUESTED PATIENT SIGN AMA FORM. AMA FORM SIGNED.
[2024-02-18 13:50] LABS: Reflex Troponin-HS? (from REC) Y
== END 2024-02-18 13:16 | disposition left against medical advice (07) ==
PROVIDERS: Emergency Provider Emergency Medicine; PCP Internal Medicine; Visit Provider Emergency Medicine
DX: R07.9 Chest pain, unspecified (principal); N18.30 Chronic kidney disease, stage 3 unspecified; E03.9 Hypothyroidism, unspecified; F41.9 Anxiety disorder, unspecified; E20.9 Hypoparathyroidism, unspecified; R73.9 Hyperglycemia, unspecified; R03.0 Elevated blood-pressure reading, without diagnosis of hypertension; G47.33 Obstructive sleep apnea (adult) (pediatric)
CPT/HCPCS: 80053; 81001; 82962; 83605; 84484; 85025; 93005; 96360; 96361; 99283; A4216

== ENCOUNTER 2024-02-22 16:12 | Emergency (ER) | payer MEDICARE, MEDICAID, SELFPAY ==
[2024-02-22 16:13] VITALS: BP 134/91; PULSE 107; RESP 18; TEMP 36.2; O2SAT 99; BMI 48.0
--- NOTE | 2024-02-22 16:21 | EX.ED.UPPERE ---
HPI History of Present Illness HPI Narrative: Patient presents with pain in her left shoulder that has been getting worse over the past several days. Patient denies any trauma or injury. Patient states her pain is worse with certain movements such as abduction of her left shoulder. Patient denies any paresthesias or weakness. Patient describes her pain as throbbing and sharp. Patient states her pain comes and goes. Patient denies any paresthesias or weakness. Patient denies any radiation of the edema. Patient denies any neck or back pain. Patient denies any chest pain or shortness of breath. Chief Complaint: Upper Extremity Injury Informant: patient Onset/Context/Timing Onset: Days Context: Gradual Onset Timing: Intermittent Quality of Pain: Sharp and Throbbing Location: Left shoulder Worsened by: Movement Relieved by: Nothing Associated Symptoms Associated Symptoms: Negative for Parasthesia, Weakness or Loss of Funtion PFSH [facility] Medical History Anxiety disorder, unspecified Major depressive disorder, recurrent severe without psychotic features Cough Allergic conjunctivitis Allergic dermatitis of eyelids of both eyes Post-menopausal Wears contact lenses Wears glasses Wears dentures Vertigo History of renal disease High cholesterol Easy bruising History of IBS Gastric reflux Non-smoker Shortness of breath on exertion Leg cramps History of edema Hypertension Gout Exocrine pancreatic insufficiency Chronic diarrhea Stage III chronic kidney disease Obesity Post-surgical hypoparathyroidism Hypothyroidism (acquired) History of blood transfusion Obstructive sleep apnea Multiple endocrine neoplasia (MEN) type I Migraine Multiple endocrine neoplasia type 1 (MEN1) Insomnia Anxiety Edema Allergic rhinitis ADHD Vitamin D deficiency Depression Hypothyroidism Restless leg syndrome Post traumatic stress disorder GERD (gastroesophageal reflux disease) Irritable bowel syndrome Anemia Chronic kidney disease, stage 3 Sleep apnea Osteoarthritis of right knee Difficulty balancing Knee pain Fatigue Anemia Kidney disease Arthritis history of left foot fracture History of kidney stones Ureteral calculus Home Medications ?Medication ?Instructions ?Recorded ?Last Taken ?Type cyanocobalamin (vitamin B-12) 500 1,000 mcg PO DAILY@0800 Supplement 09/16/17 07/15/18 History mcg tablet cholecalciferol (vitamin D3) 50 1,250 mcg PO DAILY bone 09/24/21 Unknown History mcg (2,000 unit) capsule (Vitamin D3) atorvastatin 20 mg tablet 20 mg PO DAILY cholesterol #90 tabs 07/16/23 Unknown Rx fluticasone propionate 50 1 spray intranasal BID #16 grams 09/03/23 Unknown Rx mcg/actuation nasal spray,suspension (Allergy Relief (fluticasone)) albuterol sulfate 2.5 mg/3 mL 2.5 mg (3 mL) inhalation Q6H PRN 09/05/23 Unknown Rx (0.083 %) solution for nebulization shortness of breath or wheezing #75 mL nebulizer and compressor #1 ea 09/05/23 Unknown Rx compr.stocking,thigh,reg,x-lrg #12 ea 09/14/23 Unknown Rx calcium carbonate 400 mg PO BID 11/01/23 Unknown History potassium chloride 20 mEq 20 meq PO DAILY 11/01/23 Unknown History tablet,extended release pantoprazole 20 mg tablet,delayed 20 mg PO DAILY #90 tabs 11/22/23 Unknown Rx release (Protonix) albuterol sulfate 90 mcg/actuation 2 puff inhalation Q4H PRN PRN 12/24/23 Unknown Rx aerosol inhaler (Ventolin HFA) Wheezing ##1 calcitriol 0.25 mcg capsule 0.75 mcg (3 x 0.25 mcg) PO DAILY 12/24/23 Unknown Rx #270 caps levothyroxine 100 mcg tablet 100 mcg PO DAILY thyroid #90 tabs 12/24/23 Unknown Rx alprazolam 0.5 mg tablet 0.5 mg PO BID PRN anxiety #60 01/19/24 Unknown Rx TABLETS bupropion HCl 300 mg 24 hr tablet, See Rx Instructions .Route 01/19/24 Unknown Rx extended release .COMPLEX #90 tabs cariprazine 1.5 mg capsule 1.5 mg PO DAILY #30 caps 01/19/24 Unknown Rx vortioxetine 20 mg tablet 20 mg PO DAILY #90 tabs 01/19/24 Unknown Rx (Trintellix) cetirizine 0.24 % eye drops in a 1 drp ophthalmic (eye) BID #30 ea 01/31/24 Unknown Rx dropperette Allergy/AdvReac Type Severity Reaction Status Date / Time Iodinated Contrast Media Allergy Rash Verified 02/22/24 16:13 (DYEE) propranolol Allergy unknown Verified 02/22/24 16:13 iron AdvReac Other Verified 02/22/24 16:13 morphine AdvReac Rash Verified 02/22/24 16:13 ondansetron (From Zofran) AdvReac Other Verified 02/22/24 16:13 Family History Mother Stomach cancer Anemia Arthritis MEN, type 1 Father Pneumonia Anxiety Arthritis Depression Surgical History History of esophagogastroduodenoscopy (EGD) History of colonoscopy H/O right knee surgery History of hysterectomy History of parathyroidectomy History of cholecystectomy history of right collar bone surgery history of gastric sleeve Social History adopted: No household members: none housing: apartment current occupational status: disabled current occupation: disability history of recent travel: No sexually active: No Smoking Status: Never smoker Electronic Cigarette Use: not used alcohol intake: current alcohol intake frequency: holidays/special occasions only details: once or twice a year substance use type: does not use, former substance user and marijuana diet: low salt well-balanced diet: about half the time caffeine: Yes eating out: 4 or more times/week during the past year weight has: increased > 10 lbs what type of physical activity do you participate in: walking frequency: 1-2 times per week seatbelt use: always do you feel safe at home: Yes ROS ROS ED Constitutional Constitutional ED: Denies chills or fever(s) Eyes Eyes: Denies blurry vision or change in vision ENT ENT ED: Denies rhinorrhea or sore throat Cardiovascular Cardiovascular: Denies chest pain or palpitations Respiratory/Chest Respiratory/Chest: Denies cough or dyspnea Gastrointestinal Gastrointestinal: Denies nausea or vomiting Genitourinary Genitourinary ED: Denies dysuria or hematuria Musculoskeletal Musculoskeletal: Denies back pain or neck pain Integumentary Denies abscess or rash Neurologic Neurologic: Denies headache(s) or weakness Allergic/Immunologic Allergic/Immunologic ED: Denies mouth swelling or urticaria EXAM Physical Exam Const Vital Signs: 02/22/24 16:13 Temperature 97.2 F L Temperature Source Temporal Pulse Rate 107 H Respiratory Rate 18 Blood Pressure 134/91 H Blood Pressure Mean 105 Pulse Ox 99 Oxygen Delivery Method Room Air Positive well nourished and well developed General Appearance ED: well developed and NAD HEENT Reports moist mucous membranes normocephalic and atraumatic Neck full ROM and supple Extremity Extremity Narrative: There is tenderness over the anterior aspect of the left shoulder. There is no bony crepitance or step-off. There is no edema or ecchymosis. Range of motion was limited in abduction of the left shoulder secondary to pain. There is good flexion extension. There is good internal and external rotation. Radial pulses are equal bilaterally. Sensation was intact to light touch in the radial, median, ulnar, and axillary areas bilaterally. Strength is 5/5 in the radial, median, and ulnar areas. Neuro oriented x3, CN's II-XII intact bilaterally, moves all extremities, no focal motor deficits and no sensory deficits noted Sensorium / Orientation: alert Motor Exam: strength 5/5 throughout Psych mental status grossly normal MDM MDM MDM Narrative Medical decision making narrative: Differential diagnosis includes degenerative arthritis, tendinitis, muscular strain, and occult fracture. X-rays of the left shoulder will be obtained to assess for degenerative arthritis and occult fracture. Radiography Diagnostic Testing: X-rays of the left shoulder were obtained. There are 4 views. On my independent interpretation, there is no acute fracture or dislocation. There are some mild degenerative changes noted. Radiologist also interpreted the x-rays and noted increased density in the humeral neck which may represent enchondroma or bone infarct. Treatment and Re-Evaluation Narrative: Patient was advised of her findings. Patient was instructed to use ice to the area. Patient states she can take Tylenol or Aleve at home. Patient was instructed to follow-up with her primary care physician in 5 to 7 days. Patient was instructed to return if worse in any way. Patient understood and was agreeable with the plan. All questions were answered. Discharge Plan Triage Chief Complaint: Upper Extremity Injury ED Provider: Joey Hughes Dx/Rx/DC Orders Clinical Impression: Left shoulder strain Instructions: ED Shoulder Sprain Prescriptions: No Action albuterol sulfate [Ventolin HFA] 90 mcg/actuation HFA aerosol inhaler 2 puff inhalation Q4H PRN PRN (Reason: Wheezing) Qty: 1 0RF calcitriol 0.25 mcg capsule 0.75 mcg PO DAILY Qty: 270 3RF levothyroxine 100 mcg tablet 100 mcg PO DAILY Qty: 90 3RF (DME) compr.stocking,thigh,reg,x-lrg Misc See Rx Instructions .Route Qty: 12 0RF Rx Instructions: As directed Trintellix 20 mg tablet 20 mg PO DAILY Qty: 90 1RF cariprazine 1.5 mg capsule 1.5 mg PO DAILY Qty: 30 2RF bupropion HCl 300 mg tablet extended release 24 hr See Rx Instructions .ROUTE .COMPLEX Qty: 90 2RF Dose Instruction: take 1 tablet by mouth once daily for MOOD Rx Instructions: take 1 tablet by mouth once daily for MOOD alprazolam 0.5 mg tablet 0.5 mg PO BID PRN (Reason: anxiety) Qty: 60 3RF cetirizine 0.24 % dropperette 1 drp ophthalmic (eye) BID Qty: 30 0RF cyanocobalamin (vitamin B-12) 500 MCG tablet 1,000 mcg PO DAILY@0800 cholecalciferol (vitamin D3) [Vitamin D3] 50 mcg (2,000 unit) Capsule 1,250 mcg PO DAILY fluticasone propionate [Allergy Relief (fluticasone)] 50 mcg/actuation spray,suspension 1 spray intranasal BID Qty: 16 0RF Rx Instructions: administer into each nostril calcium carbonate 200 mg calcium (500 mg) tablet,chewable 400 mg PO BID potassium chloride 20 mEq tablet extended release 20 meq PO DAILY atorvastatin 20 mg tablet 20 mg PO DAILY Qty: 90 0RF albuterol sulfate 2.5 mg /3 mL (0.083 %) solution for nebulization 2.5 mg inhalation Q6H PRN (Reason: shortness of breath or wheezing) Qty: 75 0RF (DME) nebulizer and compressor Device See Rx Instructions .Route Qty: 1 0RF Rx Instructions: As directed pantoprazole [Protonix] 20 mg tablet,delayed release (DR/EC) 20 mg PO DAILY Qty: 90 0RF Primary Care Provider: Alondra Davies Referrals: Alondra Davies MD [Primary Care Provider] - 5-7 Days Print Language: Slovenian Disposition Disposition: Home, Self Care
--- NOTE | 2024-02-22 17:07 | RAD_ITS ---
EXAM: XR LEFT SHOULDER COMPLETE, 2 OR MORE VIEWS CLINICAL INDICATION: Injury/Pain TECHNIQUE: Two or more views of the left shoulder. COMPARISON: No relevant prior studies available. FINDINGS: BONES/JOINTS: There is increased density in the humeral neck which may represent an chondroma or bone infarct. There are no acute abnormalities. No subluxation. Normal alignment. Preservation of the joint space. SOFT TISSUES: Unremarkable. No soft tissue swelling or gas. No radiopaque foreign body. RAD/Shoulder min 2 Views IMPRESSION: Increased density in the humeral neck which may represent an enchondroma or bone infarct. There are no acute abnormalities. Electronically Signed: Nacho Trivedi MD at 17:21 EST ,
== END 2024-02-22 18:56 | disposition home or self-care (01) ==
PROVIDERS: Emergency Provider Emergency Medicine; PCP Internal Medicine; Visit Provider Emergency Medicine
DX: S46.912A Strain of unspecified muscle, fascia and tendon at shoulder and upper arm level, left arm, initial encounter (principal); N18.30 Chronic kidney disease, stage 3 unspecified; I12.9 Hypertensive chronic kidney disease with stage 1 through stage 4 chronic kidney disease, or unspecified chronic kidney disease; G47.33 Obstructive sleep apnea (adult) (pediatric); X58.XXXA Exposure to other specified factors, initial encounter
CPT/HCPCS: 73030; 99282

== ENCOUNTER 2024-03-26 03:10 | Emergency (ER) | payer MEDICARE, MEDICAID, SELFPAY ==
[2024-03-26 03:10] VITALS: BP 148/99; PULSE 60; RESP 19; TEMP 36.8; O2SAT 98; BMI 48.6
--- NOTE | 2024-03-26 03:30 | RAD_ITS ---
INDICATION: pain fall. EXAMINATION/TECHNIQUE: X-RAY - LEFT XR Shoulder Min 2 Views 4 VIEWS COMPARISON: Prior study dated: 02/22/2024 FINDINGS: BONES: No fracture demonstrated. Sclerotic lesion in the proximal humerus consistent with bone infarct. JOINTS: No dislocation. SOFT TISSUES: Unremarkable. RAD/Shoulder min 2 Views IMPRESSION: No evidence of fracture. Electronically Signed: Tahira Mcallister MD at 7:24 EST ,
--- NOTE | 2024-03-26 03:43 | RAD_ITS ---
INDICATION: pain fall. EXAMINATION/TECHNIQUE: X-RAY - LEFT XR Wrist Min 3 Views 3 VIEWS COMPARISON: No relevant prior comparison study available FINDINGS: BONES: Irregularity at the base of the first metacarpal possible nondisplaced fracture, versus degenerative changes. There are degenerative changes at the first carpometacarpal joint. No other fracture demonstrated. JOINTS: No dislocation. SOFT TISSUES: Soft tissue swelling. RAD/Wrist min 3 Views IMPRESSION: Questionable fracture of the base of the first metacarpal, versus related degenerative changes. Correlate site of symptoms. CT may be helpful. Electronically Signed: Tahira Mcallister MD at 7:22 EST ,
[2024-03-26] MEDS: Ketorolac 30 MG/ML Syringe IM (03:58)
[2024-03-26] MEDS: Gabapentin 300 MG Capsule PO (03:59)
--- NOTE | 2024-03-26 04:20 | EDS_ITS ---
HPI History of Present Illness Chief Complaint: Fall Informant: patient Narrative Narrative: Patient is a 58-year-old female with past medical history of hypertension hypothyroidism anxiety and depression and a reported balance issue. Patient states that the other day she was walking when she lost her balance as she normally does secondary to her chronic issue and she fell from a standing position and caught herself on an outstretched left hand. She denies striking her head or any loss of consciousness she denies any history of bleeding disorder or blood thinner use. She states she had some pain following the fall but did not think much of this and has been trying to medicate with [id number] medications such as Aleve and ibuprofen. She states that despite doing this pain has persisted and she is unsure if she injured her shoulder and therefore comes in for evaluation [facility] Medical History Anxiety disorder, unspecified Major depressive disorder, recurrent severe without psychotic features Cough Allergic conjunctivitis Allergic dermatitis of eyelids of both eyes Post-menopausal Wears contact lenses Wears glasses Wears dentures Vertigo History of renal disease High cholesterol Easy bruising History of IBS Gastric reflux Non-smoker Shortness of breath on exertion Leg cramps History of edema Hypertension Gout Exocrine pancreatic insufficiency Chronic diarrhea Stage III chronic kidney disease Obesity Post-surgical hypoparathyroidism Hypothyroidism (acquired) History of blood transfusion Obstructive sleep apnea Multiple endocrine neoplasia (MEN) type I Migraine Multiple endocrine neoplasia type 1 (MEN1) Insomnia Anxiety Edema Allergic rhinitis ADHD Vitamin D deficiency Depression Hypothyroidism Restless leg syndrome Post traumatic stress disorder GERD (gastroesophageal reflux disease) Irritable bowel syndrome Anemia Chronic kidney disease, stage 3 Sleep apnea Osteoarthritis of right knee Difficulty balancing Knee pain Fatigue Anemia Kidney disease Arthritis history of left foot fracture History of kidney stones Ureteral calculus Home Medications ?Medication ?Instructions ?Recorded ?Last Taken ?Type cyanocobalamin (vitamin B-12) 500 1,000 mcg PO DAILY@0800 Supplement 09/16/17 07/15/18 History mcg tablet cholecalciferol (vitamin D3) 50 1,250 mcg PO DAILY bone 09/24/21 Unknown History mcg (2,000 unit) capsule (Vitamin D3) atorvastatin 20 mg tablet 20 mg PO DAILY cholesterol #90 tabs 07/16/23 Unknown Rx fluticasone propionate 50 1 spray intranasal BID #16 grams 09/03/23 Unknown Rx mcg/actuation nasal spray,suspension (Allergy Relief (fluticasone)) albuterol sulfate 2.5 mg/3 mL 2.5 mg (3 mL) inhalation Q6H PRN 09/05/23 Unknown Rx (0.083 %) solution for nebulization shortness of breath or wheezing #75 mL nebulizer and compressor #1 ea 09/05/23 Unknown Rx compr.stocking,thigh,reg,x-lrg #12 ea 09/14/23 Unknown Rx calcium carbonate 400 mg PO BID 11/01/23 Unknown History potassium chloride 20 mEq 20 meq PO DAILY 11/01/23 Unknown History tablet,extended release pantoprazole 20 mg tablet,delayed 20 mg PO DAILY #90 tabs 11/22/23 Unknown Rx release (Protonix) albuterol sulfate 90 mcg/actuation 2 puff inhalation Q4H PRN PRN 12/24/23 Unknown Rx aerosol inhaler (Ventolin HFA) Wheezing ##1 calcitriol 0.25 mcg capsule 0.75 mcg (3 x 0.25 mcg) PO DAILY 12/24/23 Unknown Rx #270 caps levothyroxine 100 mcg tablet 100 mcg PO DAILY thyroid #90 tabs 12/24/23 Unknown Rx alprazolam 0.5 mg tablet 0.5 mg PO BID PRN anxiety #60 01/19/24 Unknown Rx TABLETS bupropion HCl 300 mg 24 hr tablet, See Rx Instructions .Route 01/19/24 Unknown Rx extended release .COMPLEX #90 tabs cariprazine 1.5 mg capsule 1.5 mg PO DAILY #30 caps 01/19/24 Unknown Rx vortioxetine 20 mg tablet 20 mg PO DAILY #90 tabs 01/19/24 Unknown Rx (Trintellix) cetirizine 0.24 % eye drops in a 1 drp ophthalmic (eye) BID #30 ea 01/31/24 Unknown Rx dropperette furosemide 20 mg tablet 20 mg PO DAILY 03/26/24 Unknown History gabapentin 300 mg capsule 300 mg PO TID 30 days #90 caps 03/26/24 Unknown Rx oxycodone 5 mg tablet 5 mg PO Q6H PRN pain 3 days #12 03/26/24 Unknown Rx tabs Allergy/AdvReac Type Severity Reaction Status Date / Time Iodinated Contrast Media Allergy Rash Verified 03/26/24 03:11 (DYEE) propranolol Allergy unknown Verified 03/26/24 03:11 iron AdvReac Other Verified 03/26/24 03:11 morphine AdvReac Rash Verified 03/26/24 03:11 ondansetron (From Zofran) AdvReac Other Verified 03/26/24 03:11 Family History Mother Stomach cancer Anemia Arthritis MEN, type 1 Father Pneumonia Anxiety Arthritis Depression Surgical History History of esophagogastroduodenoscopy (EGD) History of colonoscopy H/O right knee surgery History of hysterectomy History of parathyroidectomy History of cholecystectomy history of right collar bone surgery history of gastric sleeve Social History adopted: No household members: none housing: apartment current occupational status: disabled current occupation: disability history of recent travel: No sexually active: No Smoking Status: Never smoker Electronic Cigarette Use: not used alcohol intake: current alcohol intake frequency: holidays/special occasions only details: once or twice a year substance use type: does not use, former substance user and marijuana diet: low salt well-balanced diet: about half the time caffeine: Yes eating out: 4 or more times/week during the past year weight has: increased > 10 lbs what type of physical activity do you participate in: walking frequency: 1-2 times per week seatbelt use: always do you feel safe at home: Yes ROS ROS ED Constitutional Constitutional ED: Denies chills or fever(s) Eyes Eyes: Denies blurry vision or change in vision ENT ENT ED: Denies sore throat Cardiovascular Cardiovascular: Denies chest pain Respiratory/Chest Respiratory/Chest: Denies cough or dyspnea Gastrointestinal Gastrointestinal: Denies abdominal pain, diarrhea, nausea or vomiting Genitourinary Genitourinary ED: Denies dysuria Musculoskeletal Musculoskeletal: Reports other Details: Positive left shoulder pain ; Denies neck pain Integumentary Reports other Details: Positive ecchymosis left wrist ; Denies Abrasions Neurologic Neurologic: Denies headache(s), paresthesias or weakness Hematologic/Lymphatic Hematologic/Lymphatic: Denies easy bleeding or easy bruising EXAM Physical Exam Const Vital Signs: 03/26/24 03:10 03/26/24 03:10 Temperature 98.3 F Temperature Source Oral Pulse Rate 60 Respiratory Rate 19 H Respiratory Effort Normal Non-Labored Respiratory Depth Normal Respiratory Pattern Normal Blood Pressure 148/99 H Blood Pressure Mean 115 Pulse Ox 98 Oxygen Delivery Method Room Air Room Air Positive well nourished, well developed and obese General Appearance ED: well developed Nutritional Appearance: obese HEENT HEENT Narrative: Normocephalic atraumatic Eyes PERRL and EOMs intact bilaterally General Eye ED: Negative for scleral icterus Neck supple Neck Narrative: No bony deformity or step-off of the cervical spine no midline tenderness to palpation Resp normal respiratory effort and clear to auscultation bilaterally Cardio regular rate and regular rhythm Back/Spine Back/Spine Narrative: No bony deformity or step-off of the thoracic or lumbar spine no midline tenderness to palpation Extremity Extremity Narrative: Left upper extremity is neurovascularly intact; AIN/PIN are intact and normal. Patient has soft tissue swelling along the left anterior lateral portion of the humeral head/shoulder. Negative sulcus sign. No obvious joint effusion or bony deformity. There is increased pain with external rotation abduction and front shoulder raising concerning for rotator cuff injury. There is ecchymosis along the volar aspect of the midportion of the left palm/wrist consistent with recent fall without obvious bony deformity or joint effusion. No pain in the anatomical snuffbox. All compartments are soft and compressible going against compartment syndrome Neuro oriented x3, CN's II-XII intact bilaterally and no sensory deficits noted Sensorium / Orientation: alert Psych mental status grossly normal Skin Skin Narrative: Soft tissue swelling of the left shoulder and ecchymosis to the left hand/wrist as documented above MDM MDM MDM Narrative Medical decision making narrative: Patient presented to the ER hypertensive but has a past medical history of this and otherwise with stable vitals. She reported a mechanical fall and therefore I felt no need for cardiac or syncope workup. She did not strike her head or have loss of consciousness she does not take blood thinners or have a history of bleeding disorder so I have low concern for traumatic skull fracture or traumatic subarachnoid or subdural hemorrhage and there is no need for head CT. With concern for potential AC joint separation versus proximal humeral fracture versus dislocation as well as potential scaphoid fracture I did elect to perform x-rays of the shoulder and wrist. Images reveal degenerative changes without acute fracture or dislocation. When comparing the shoulder x-ray today from February 2024 there is mild widening of the joint space which is concerning for rotator cuff injury. However at this time she is closed and she is neurovascularly intact and there is no need for emergent orthopedic consultation. Patient will be given symptomatic medications and will follow-up with orthopedics to discuss further testing and treatment options regarding her shoulder injury but at this time being closed and neurovascular intact without dislocation or acute fracture there is no need for further workup History & Record Review Discussion w/independent historian: Patient Radiography Diagnostic Testing: X-ray of the left shoulder as interpreted by the emergency medicine physician reveals osteoarthritic changes with mild joint space widening without acute fracture or dislocation X-ray of the left wrist as interpreted by the emergency medicine physician reveals osteoarthritic changes without acute fracture or dislocation Discharge Plan Triage Chief Complaint: Fall ED Provider: Lemuel Bledsoe Dx/Rx/DC Orders Clinical Impression: Injury of left rotator cuff, Hypothyroidism, Hypertension, Accidental fall Instructions: Rotator Cuff Tear Prescriptions: New oxycodone 5 mg tablet 5 mg PO Q6H PRN (Reason: pain) 3 Days Qty: 12 0RF gabapentin 300 mg capsule 300 mg PO TID 30 Days Qty: 90 0RF No Action albuterol sulfate [Ventolin HFA] 90 mcg/actuation HFA aerosol inhaler 2 puff inhalation Q4H PRN PRN (Reason: Wheezing) Qty: 1 0RF calcitriol 0.25 mcg capsule 0.75 mcg PO DAILY Qty: 270 3RF levothyroxine 100 mcg tablet 100 mcg PO DAILY Qty: 90 3RF (DME) compr.stocking,thigh,reg,x-lrg Misc See Rx Instructions .Route Qty: 12 0RF Rx Instructions: As directed Trintellix 20 mg tablet 20 mg PO DAILY Qty: 90 1RF cariprazine 1.5 mg capsule 1.5 mg PO DAILY Qty: 30 2RF bupropion HCl 300 mg tablet extended release 24 hr See Rx Instructions .ROUTE .COMPLEX Qty: 90 2RF Dose Instruction: take 1 tablet by mouth once daily for MOOD Rx Instructions: take 1 tablet by mouth once daily for MOOD alprazolam 0.5 mg tablet 0.5 mg PO BID PRN (Reason: anxiety) Qty: 60 3RF cetirizine 0.24 % dropperette 1 drp ophthalmic (eye) BID Qty: 30 0RF cyanocobalamin (vitamin B-12) 500 MCG tablet 1,000 mcg PO DAILY@0800 cholecalciferol (vitamin D3) [Vitamin D3] 50 mcg (2,000 unit) Capsule 1,250 mcg PO DAILY fluticasone propionate [Allergy Relief (fluticasone)] 50 mcg/actuation spray,suspension 1 spray intranasal BID Qty: 16 0RF Rx Instructions: administer into each nostril calcium carbonate 200 mg calcium (500 mg) tablet,chewable 400 mg PO BID potassium chloride 20 mEq tablet extended release 20 meq PO DAILY furosemide 20 mg tablet 20 mg PO DAILY atorvastatin 20 mg tablet 20 mg PO DAILY Qty: 90 0RF albuterol sulfate 2.5 mg /3 mL (0.083 %) solution for nebulization 2.5 mg inhalation Q6H PRN (Reason: shortness of breath or wheezing) Qty: 75 0RF (DME) nebulizer and compressor Device See Rx Instructions .Route Qty: 1 0RF Rx Instructions: As directed pantoprazole [Protonix] 20 mg tablet,delayed release (DR/EC) 20 mg PO DAILY Qty: 90 0RF Primary Care Provider: Alondra Davies Referrals: Alondra Davies MD [Primary Care Provider] - Brian Bee DO [Med Staff - Active Staff] - Activity Restrictions/Additional Instructions: Your exam and history is concerning for damage to your rotator cuff. Follow-up with orthopedics to discuss further testing such as MRI and treatment options. Return to the ER should you have any further concern Print Language: Macedonian Disposition Disposition: Home, Self Care
[2024-03-26 04:35] VITALS: BP 128/88; PULSE 65; RESP 19; TEMP 37; O2SAT 99
== END 2024-03-26 04:37 | disposition home or self-care (01) ==
PROVIDERS: Emergency Provider Emergency Medicine; PCP Internal Medicine; Visit Provider Emergency Medicine
DX: S46.002A Unspecified injury of muscle(s) and tendon(s) of the rotator cuff of left shoulder, initial encounter (principal); N18.30 Chronic kidney disease, stage 3 unspecified; E03.9 Hypothyroidism, unspecified; E78.00 Pure hypercholesterolemia, unspecified; I12.9 Hypertensive chronic kidney disease with stage 1 through stage 4 chronic kidney disease, or unspecified chronic kidney disease; Z79.899 Other long term (current) drug therapy; W19.XXXA Unspecified fall, initial encounter
CPT/HCPCS: 73030; 73110; 96372; 99283

== ENCOUNTER 2024-03-30 15:11 | Inpatient (IN) | payer MEDICARE, MEDICAID, SELFPAY ==
[2024-03-30] VITALS (11 sets, daily range): BP systolic 79–151; BP diastolic 58–115; PULSE 99–110; RESP 18–30; TEMP 36.7–37; O2SAT 93–96; BMI 50.4; BMI 48.6
--- NOTE | 2024-03-30 15:35 | CT_ITS ---
STUDY: CT CERVICAL SPINE WITHOUT CONTRAST REASON FOR EXAM: Female, 58 years old. fall RADIATION DOSAGE (If Supplied By Facility): CTDIvol = ( 34.45 ) mGy, DLP = ( 759.20 ) mGycm TECHNIQUE: High resolution transaxial imaging was performed without contrast material. Sagittal and coronal images were reconstructed. Individualized dose optimization techniques were used for this CT. COMPARISON: None FINDINGS: Normal craniovertebral junction. Normal anterior atlantoaxial articulation. Normal odontoid process. Normal cervical lordosis. Normal vertebral bodies and posterior osseous elements. C2-3: Normal endplates. Normal disc height and morphology. Normal central canal and intervertebral neuroforamina. C3-4: Narrowed disc space and minor endplate spurring. Normal central canal and intervertebral neuroforamina. C4-5: Grade 1 retrolisthesis narrowed disc space and minor bulging disc osteophyte complex. Normal central canal . Severe bilateral neural foraminal stenosis secondary to bony hypertrophy. C5-6: Narrowed disc space and endplate spurring. Normal central canal. Severe left neural foraminal stenosis secondary to bony hypertrophy C6-7: Narrowed disc space and minor endplate spurring. Normal central canal and intervertebral neuroforamina. C7-T1: Normal endplates. Normal disc height and morphology. Normal central canal and intervertebral neuroforamina. Normal visualized soft tissue structures. CT/Spine Cervical without Contras IMPRESSION: Advanced degenerative osteoarthritic changes.. No acute fracture or other significant bony pathology Electronically Signed: Syed Jones MD at 17:46 EST Reading Location ID and State: [facility] / [place] Tel , Service support ,
--- NOTE | 2024-03-30 15:35 | CT_ITS ---
STUDY: CT BRAIN WITHOUT CONTRAST REASON FOR EXAM: Female, 58 years old. fall RADIATION DOSAGE (If Supplied By Facility): CTDIvol = ( 44.99 ) mGy, DLP = ( 779.24 ) mGycm TECHNIQUE: Transaxial CT imaging of the brain was performed without administration of intravenous contrast material. Individualized dose optimization techniques were used for this CT. COMPARISON: February 15, 2023 FINDINGS: Normal soft tissue structures. Normal calvarium. Mild atrophy for age and periventricular white matter ischemic changes.. Normal basal ganglia and thalami. Normal brainstem. Normal cerebellum. Empty sella deformity of uncertain clinical significance There is no intracranial hemorrhage. There are no findings of an acute ischemic infarction. Mild diffuse pansinusitis CT/Brain/Head without Contrast IMPRESSION: Mild atrophy and periventricular white matter ischemic change No acute intracranial bleed Electronically Signed: Syed Jones MD at 17:41 EST ,
--- NOTE | 2024-03-30 15:36 | EKG12_ITS ---
Test Reason : FALL Blood Pressure : */* mmHG Vent. Rate : 102 BPM Atrial Rate : 102 BPM P-R Int : 164 ms QRS Dur : 102 ms QT Int : 366 ms P-R-T Axes : 39 -37 51 degrees QTcB Int : 477 ms Sinus tachycardia Left axis deviation Minimal voltage criteria for LVH, may be normal variant ( Junior product ) Abnormal ECG Confirmed by NORMA COURTNEY, ROSENDO ([id number]), field map editor MIKE SINGER ([id number]) on 04/04/2024 7:14:59 AM Referred By: Agustin Amaya Confirmed By: ROSENDO GREEN MD
--- NOTE | 2024-03-30 15:40 | ED.VIS.FALL ---
HPI HPI - Fall History of Present Illness Chief Complaint: Fall Informant: patient Narrative Narrative: Brought in by EMS from home after neighbor checked on her after she was calling for help. Patient reports 2 days ago fall onto her knees had difficulty getting up. She is able to get to the restroom that day however yesterday fell again. Is not any blood thinners. She does not ambulate with any assistance. Per nursing there is bruising noted across her chest. She reports she was sleeping on her abdomen and leaning on the ground with her head. No headache. States she hurts everywhere. She is on medications for psychiatric disorder. She states she was calling for help since yesterday. She has been having urine urgency for a while. Previous bilateral knee surgeries in 2019. Denies hip or back pain. She does report history of additional MEN type I, no current treatment. [facility] Medical History Anxiety disorder, unspecified Major depressive disorder, recurrent severe without psychotic features Cough Allergic conjunctivitis Allergic dermatitis of eyelids of both eyes Post-menopausal Wears contact lenses Wears glasses Wears dentures Vertigo History of renal disease High cholesterol Easy bruising History of IBS Gastric reflux Non-smoker Shortness of breath on exertion Leg cramps History of edema Hypertension Gout Exocrine pancreatic insufficiency Chronic diarrhea Stage III chronic kidney disease Obesity Post-surgical hypoparathyroidism Hypothyroidism (acquired) History of blood transfusion Obstructive sleep apnea Multiple endocrine neoplasia (MEN) type I Migraine Multiple endocrine neoplasia type 1 (MEN1) Insomnia Anxiety Edema Allergic rhinitis ADHD Vitamin D deficiency Depression Hypothyroidism Restless leg syndrome Post traumatic stress disorder GERD (gastroesophageal reflux disease) Irritable bowel syndrome Anemia Chronic kidney disease, stage 3 Sleep apnea Osteoarthritis of right knee Difficulty balancing Knee pain Fatigue Anemia Kidney disease Arthritis history of left foot fracture History of kidney stones Ureteral calculus Home Medications ?Medication ?Instructions ?Recorded ?Last Taken ?Type cyanocobalamin (vitamin B-12) 500 1,000 mcg PO DAILY@0800 Supplement 09/16/17 07/15/18 History mcg tablet atorvastatin 20 mg tablet 20 mg PO DAILY cholesterol #90 tabs 07/16/23 Unknown Rx fluticasone propionate 50 1 spray intranasal BID #16 grams 09/03/23 Unknown Rx mcg/actuation nasal spray,suspension (Allergy Relief (fluticasone)) albuterol sulfate 2.5 mg/3 mL 2.5 mg (3 mL) inhalation Q6H PRN 09/05/23 Unknown Rx (0.083 %) solution for nebulization shortness of breath or wheezing #75 mL nebulizer and compressor #1 ea 09/05/23 Unknown Rx compr.stocking,thigh,reg,x-lrg #12 ea 09/14/23 Unknown Rx potassium chloride 20 mEq 20 meq PO DAILY 11/01/23 Unknown History tablet,extended release pantoprazole 20 mg tablet,delayed 20 mg PO DAILY #90 tabs 11/22/23 Unknown Rx release (Protonix) calcitriol 0.25 mcg capsule 0.75 mcg (3 x 0.25 mcg) PO DAILY 12/24/23 Unknown Rx #270 caps levothyroxine 100 mcg tablet 100 mcg PO DAILY thyroid #90 tabs 12/24/23 Unknown Rx alprazolam 0.5 mg tablet 0.5 mg PO BID PRN anxiety #60 01/19/24 Unknown Rx TABLETS bupropion HCl 300 mg 24 hr tablet, See Rx Instructions .Route 01/19/24 Unknown Rx extended release .COMPLEX #90 tabs cariprazine 1.5 mg capsule 1.5 mg PO DAILY #30 caps 01/19/24 Unknown Rx vortioxetine 20 mg tablet 20 mg PO DAILY #90 tabs 01/19/24 Unknown Rx (Trintellix) cetirizine 0.24 % eye drops in a 1 drp ophthalmic (eye) BID #30 ea 01/31/24 Unknown Rx dropperette furosemide 20 mg tablet 20 mg PO DAILY 03/26/24 Unknown History gabapentin 300 mg capsule 300 mg PO TID 30 days #90 caps 03/26/24 Unknown Rx albuterol sulfate 90 mcg/actuation 2 puff inhalation Q4H PRN Wheezing 03/30/24 Unknown History aerosol inhaler (Ventolin HFA) benztropine 0.5 mg tablet 0.5 mg PO BID 03/30/24 Unknown History calcium 600 mg-D3 20 mcg-magnesium tab PO 03/30/24 Unknown History 50 xo-Fx-oqydtl-perla-boron tablet (Calcium 600-D3 Plus (mag-zinc)) cariprazine 1.5 mg capsule 1.5 mg PO DAILY 03/30/24 Unknown History (Vraylar) Allergy/AdvReac Type Severity Reaction Status Date / Time Iodinated Contrast Media Allergy Rash Verified 03/30/24 15:12 (DYEE) propranolol Allergy unknown Verified 03/30/24 15:12 iron AdvReac Other Verified 03/30/24 15:12 morphine AdvReac Rash Verified 03/30/24 15:12 ondansetron (From Zofran) AdvReac Other Verified 03/30/24 15:12 Family History Mother Stomach cancer Anemia Arthritis MEN, type 1 Father Pneumonia Anxiety Arthritis Depression Surgical History History of esophagogastroduodenoscopy (EGD) History of colonoscopy H/O right knee surgery History of hysterectomy History of parathyroidectomy History of cholecystectomy history of right collar bone surgery history of gastric sleeve Social History adopted: No household members: none housing: apartment current occupational status: disabled current occupation: disability history of recent travel: No sexually active: No Smoking Status: Never smoker Electronic Cigarette Use: not used alcohol intake: current alcohol intake frequency: holidays/special occasions only details: once or twice a year substance use type: does not use, former substance user and marijuana diet: low salt well-balanced diet: about half the time caffeine: Yes eating out: 4 or more times/week during the past year weight has: increased > 10 lbs what type of physical activity do you participate in: walking frequency: 1-2 times per week seatbelt use: always do you feel safe at home: Yes ROS ROS ED Constitutional Constitutional ED: Denies chills, fever(s) or sweats ENT ENT ED: Denies sore throat Cardiovascular Cardiovascular: Denies chest pain, leg edema, palpitations or racing heartbeat Respiratory/Chest Respiratory/Chest: Denies cough, dyspnea or dyspnea on exertion Gastrointestinal Gastrointestinal: Denies abdominal pain, diarrhea, nausea or vomiting Genitourinary Genitourinary ED: Denies dysuria, hematuria or urinary frequency Musculoskeletal Musculoskeletal: Reports extremity pain and myalgias; Denies back pain or neck pain Integumentary Denies rash or wounds Neurologic Neurologic: Denies headache(s), paresthesias or weakness EXAM Physical Exam Const Vital Signs: 03/30/24 15:12 03/30/24 15:16 03/30/24 15:16 Temperature 98.6 F 98.6 F Temperature Source Oral Oral Pulse Rate 110 H 106 H Respiratory Rate 28 H 30 H Respiratory Effort Normal Respiratory Depth Normal Respiratory Pattern Normal Blood Pressure 151/111 H 145/115 H Blood Pressure Mean 124 125 Pulse Ox 95 Oxygen Delivery Method Room Air Room Air Room Air 03/30/24 16:20 03/30/24 17:00 03/30/24 18:00 Temperature 98.6 F 98.6 F Temperature Source Oral Oral Pulse Rate 104 H 100 100 Respiratory Rate 28 H 20 H 20 H Respiratory Effort Respiratory Depth Respiratory Pattern Blood Pressure 145/111 H 131/82 H 101/67 Blood Pressure Mean 122 98 78 Pulse Ox 94 96 94 Oxygen Delivery Method Room Air Room Air Room Air Positive well nourished and well developed Constitutional Narrative: GCS 15. General Appearance ED: well developed and NAD HEENT HEENT Narrative: Slight pressure ecchymosis forehead. No hematoma. Dry mucosal membranes. normocephalic Eyes General Eye ED: Yes normal appearance of both eyes Neck full ROM Chest Wall Chest Narrative: Bruising noted upper chest 3 areas, no crepitus. Chest: tenderness Resp normal respiratory effort and normal air movement Resp Narrative: Symmetric breath sounds. Effort and Inspection: symmetric chest movement; Negative for respiratory distress Cardio regular rate, regular rhythm and no murmurs Peripheral Pulses: pulses 2+ throughout GI normal to inspection, nondistended, normoactive bowel sounds and non-tender Palpation: Negative for guarding or rebound tenderness present Extremity Extremity Narrative: Negative logroll of the lower extremities bilaterally. No knee tenderness. There is bruising to the tibia on the right soft compartments skin intact. Tenderness to exam. No deformities noted. Pulses are intact distally. General Extremety ED: Yes tenderness; Negative for edema General Extremity: Negative for edema Neuro oriented x3 and no sensory deficits noted Sensorium / Orientation: awake and alert Skin Skin Narrative: See above MDM MDM MDM Narrative Medical decision making narrative: Interventions / MDM: Differential diagnosis: Rhabdomyolysis, fall, contusions multiple areas, Diagnosis considered but do not suspect: Fracture however x-rays negative. Intracranial hemorrhage however CT negative. Compartment syndrome however soft compartments on exam of the right leg. My EKG interpretation: Sinus rate of 102, no ST or T wave changes QTc 477. Imaging independently reviewed and interpreted by myself: 1 view pelvis: No acute process 1 view chest x-ray: No acute process. 2 view tib-fib: Hardware noted intact, no fractures noted. CT brain: No acute process. CT cervical spine: No acute process. Also read by radiology. External documents reviewed: N/A Test considered but not ordered:N/A ED course: Patient was fall was on the ground overnight, scattered bruising, pain to right leg. GCS is 15. Dry mucosal membranes. Check labs clued urine and CPK. 1 L fluids ordered. Trauma scans head and neck, chest x-ray chest, pelvis, right leg ordered for further evaluation. 1700: CPK 10,000, creatinine 2.1 up from 1.6 last month. White count at 17. Additional liter of fluid ordered for concerning rhabdomyolysis. Urine slight infection she is symptomatic. With rhabdomyolysis, I spoke with hospitalist Dr. Gonzalez, clinically not septic however she is positive SIRS criteria and lactic acid blood cultures added. Rocephin for antibiotics. Patient admitted to medical floor for further management. Re-evaluation: stable Disposition discussed with patient/family/significant other: Patient Case discussed with consulting clinician: Hospitalist This note was generated with Retrevo dictation software. It may contain incorrect words, spelling, and punctuation that were not noted in checking the note before signing. Lab Data Attestation: I reviewed the patient's lab results. Labs: Laboratory Results - last 24 hr 03/30/24 03/30/24 15:56 16:27 WBC 17.1 H RBC 4.75 Hgb 10.9 L Hct 35.0 L MCV 73.7 L MCH 22.9 L MCHC 31.1 L RDW Std Deviation 54.8 H RDW Coeff of Teena 21.3 H Plt Count 326 MPV 10.6 Immature Gran % (Auto) 0.500 Neut % (Auto) 88.5 H Lymph % (Auto) 5.8 L Cassia % (Auto) 4.7 Eos % (Auto) 0.3 Baso % (Auto) 0.2 Absolute Neuts (auto) 15.1 H Absolute Lymphs (auto) 0.99 Nucleated RBC % 0 Differential Comment SCANNED Polychromasia RARE Hypochromasia 1+ Anisocytosis 2+ PT 15.5 H INR 1.2 APTT 25.2 Sodium 138 Potassium 3.1 L Chloride 105 Carbon Dioxide 22.0 Anion Gap 11 BUN 33 H Creatinine 2.11 H Estim Creat Clear Calc 44.30 Est GFR (MDRD) Af Amer 31 L Est GFR (MDRD) Non-Af 26 L BUN/Creatinine Ratio 15.6 Glucose 110 H Calcium 9.6 Total Bilirubin 1.70 H AST 304 H ALT 93 H Alkaline Phosphatase 151 H Total Creatine Kinase 18781 H Total Protein 7.1 Albumin 3.1 L Globulin 4.0 Albumin/Globulin Ratio 0.8 L Urine Color Straw Urine Clarity Clear Urine pH 5.0 Ur Specific [place] 1.030 Urine Protein 30 H Urine Glucose (UA) Normal Urine Ketones 5 H Urine Occult Blood 250 H Urine Nitrite Negative Urine Bilirubin 1 H Urine Urobilinogen 1 H Ur Leukocyte Esterase 25 H Urine RBC 0-5 SEEN Urine WBC 5-10 SEEN Ur Squamous Epith Cells 0-5 SEEN Urine Bacteria RARE Urine Mucus 0 SEEN Radiography Diagnostic Testing: Clinical Impression(s) from Imaging Studies Brain CT 03/30/24 15:35 IMPRESSION: Mild atrophy and periventricular white matter ischemic change No acute intracranial bleed Electronically Signed: Syed Jones MD at 17:41 EST , Cervical Spine CT 03/30/24 15:35 IMPRESSION: Advanced degenerative osteoarthritic changes.. No acute fracture or other significant bony pathology Electronically Signed: Syed Jones MD at 17:46 EST Reading Location ID and State: [facility] / [place] Tel [phone], Service support , Chest X-Ray 03/30/24 17:15 IMPRESSION: Normal x-ray examination of the chest. Electronically Signed: Syed Jones MD at 17:48 EST , Pelvis X-Ray 03/30/24 17:15 IMPRESSION: Normal x-ray examination of the pelvis. Electronically Signed: Syed Jones MD at 17:47 EST Reading Location ID and State: [address] [place] [address] Tel [phone], Service support , Tibia/Fibula X-Ray 03/30/24 17:15 IMPRESSION: No acute fractures status post knee prosthesis placement Electronically Signed: Syed Jones MD at 17:48 EST Reading Location ID and State: [address] [place] [address] Tel [phone], Service support , Discharge Plan Dx/Rx/DC Orders Clinical Impression: Rhabdomyolysis, Acute on chronic renal insufficiency, Contusion of leg, right, Chest wall contusion, Contusion of face, UTI (urinary tract infection) Disposition Disposition: Acute Care Hospital [facility] Discharge Date/Time: 03/30/24 19:33
[2024-03-30] MEDS: 0.9% Normal Saline (1000mL) 1,000 ML 999 ML IV ×2 (15:56→18:04)
[2024-03-30 16:16] LABS: Absolute Lymphocyte Count 0.99 X10^3/uL (0.83-4.51); Absolute Neutrophil Count 15.1 X10^3/uL (2.0-7.7); Basophil# 0.04 X10^3/uL; Basophil% 0.2 % (0-1); Eosinophil# 0.05 X10^3/uL; Eosinophils% 0.3 % (0-5); Hemoglobin 10.9 g/dL (12.0-15.0); Lymphocyte # 0.99 X10^3/ul (0.83-4.51); Lymphocyte % 5.8 % (19-41); Mean Corp Hgb Conc 31.1 g/dL (32-36); Mean Corpuscular Hgb 22.9 pg (27.0-32.0); Mean Corpuscular Volume 73.7 fL (81-99); Mean Platelet Vol. 10.6 fl (6.2-12.0); Monocyte# 0.81 X10^3/uL; Monocyte% 4.7 % (0-10); NRBC Flagged by Analyzer 0 % (0-5); Neutrophil # 15.09 X10^3/uL (2.7-7.7); Neutrophil % 88.5 % (47-70); POSITIVE MORPHOLOGY YES; Platelet Count 326 K/mm3 (150-450); RBC Distribution Width CV 21.3 % (11.6-14.6); RBC Distribution Width SD 54.8 fl (35.1-43.9); Red Blood Count 4.75 M/mm3 (4.2-5.4); White Blood Count 17.1 K/mm3 (4.4-11.0)
[2024-03-30 16:19] LABS: Differential Indicated SCAN CRITERIA MET
[2024-03-30 16:33] LABS: International Normalized Ratio 1.2; Prothrombin Time (Protime)PT. 15.5 SECONDS (11.7-14.9)
[2024-03-30 16:35] LABS: Mucous, Urine 0 SEEN /hpf (<or=2+)
[2024-03-30 16:38] LABS: Partial Thromboplast Time 25.2 Seconds (24.1-36.2)
[2024-03-30 16:55] LABS: ALB/GLOB Ratio 0.8 RATIO (0.9-2.4); AST(SGOT) 304 U/L (15-37); Alanine Aminotransfer ALT/SGPT 93 U/L (13-56); Albumin, Serum 3.1 g/dL (3.2-5.0); Alkaline Phosphatase 151 U/L (45-117); Anion Gap 11 (5-15); BUN 33 mg/dL (7-18); BUN/Creat Ratio 15.6 RATIO (10-20); CPK Total, Creatine Kinase 10096 U/L (26-192); Calcium,Total 9.6 mg/dL (8.5-10.1); Chloride 105 mmol/L (98-107); Creatinine, Serum 2.11 mg/dL (0.55-1.02); EST Glomerular Filtration Rate 26 mL/min (>60); Est Glom Filt Rate - Afr Amer 31 mL/min (>60); Glucose 110 mg/dL (74-106); Potassium 3.1 mmol/L (3.5-5.1); Protein, Total 7.1 g/dL (6.4-8.2); Sodium Level 138 mmol/L (136-145)
[2024-03-30 17:01] LABS: Color, Urine Straw (Yellow); Glucose, Dipstick Normal (Normal); Ketone-Dipstick 5 mg/dl (Negative); Leukocyte Esterase-Dipstick 25 /ul (Negative); Nitrite-Dipstick Negative (Negative); Occult Blood-Urine 250 /ul (Negative); Protein-Dipstick 30 mg/dl (Negative); Urine Clarity Clear (Clear); Urine Urobilinogen 1 mg/dl (Normal)
--- NOTE | 2024-03-30 17:15 | RAD_ITS ---
STUDY: X-RAY - RIGHT TIBIA AND FIBULA REASON FOR EXAM: Female, 58 years old. injury TECHNIQUE: 4 view(s) of the tibia and fibula were obtained. COMPARISON: None. FINDINGS: Normal visualized tibia. Normal visualized fibula. Stable appearance to knee prosthesis The soft tissue structures are unremarkable. RAD/Tibia & Fibula 2 Views IMPRESSION: No acute fractures status post knee prosthesis placement Electronically Signed: Syed Jones MD at 17:48 EST ,
--- NOTE | 2024-03-30 17:15 | RAD_ITS ---
STUDY: X-RAY CHEST REASON FOR EXAM: Female, 58 years old. weakness TECHNIQUE: AP portable COMPARISON: None. FINDINGS: The lungs are clear and expanded. There is no demonstrated pleural abnormality. Normal size heart. Normal mediastinum and joanna. Normal visualized pulmonary arteries. Normal visualized aortic arch and descending thoracic aorta. Normal visualized thoracic spine. Normal visualized ribs, clavicles, and shoulders. There is no demonstrated abnormality of the visualized soft tissue structures of the upper abdomen. RAD/Chest 1 View (Portable) IMPRESSION: Normal x-ray examination of the chest. Electronically Signed: Syed Jones MD at 17:48 EST ,
--- NOTE | 2024-03-30 17:15 | RAD_ITS ---
STUDY: X-RAY - PELVIS REASON FOR EXAM: Female, 58 years old. fall TECHNIQUE: One view of the pelvis was obtained. COMPARISON: None. FINDINGS: There is a non-specific bowel gas pattern. Normal visualized soft tissue structures. Normal bilateral iliac wings, sacroiliac joints and visualized sacrum. Normal visualized bilateral superior and inferior pubic rami. Normal pubic symphysis. Normal ischial tuberosities. Normal visualized right femoral head. Normal right acetabulum. Normal right hip joint. Normal visualized left femoral head. Normal left acetabulum. Normal left hip joint. RAD/Pelvis 1 or 2 Views IMPRESSION: Normal x-ray examination of the pelvis. Electronically Signed: Syed Jones MD at 17:47 EST ,
--- NOTE | 2024-03-30 17:15 | ED.RN ---
pt stated she was found on floor by a neighbor, was there for about 3 days. states was able to move to get to bathroom, but unable to eat or drink fluids. Pt states she has been having more falls. pt lives alone. bruising on B/L feet, arms, chest and forehead. Pt has red rash on abd. Social work consulted to maintain pt safety in the home.
[2024-03-30 17:34] LABS: Urine Bilirubin Dipstick 1 mg/dL (Negative)
[2024-03-30 17:38] LABS: Differential Comment SCANNED
[2024-03-30 17:40] LABS: Anisocytosis 2+
[2024-03-30 17:41] LABS: Hypochromasia 1+; Polychromasia RARE
[2024-03-30 17:59] LABS: Squamous Epithelial Cells - UA 0-5 SEEN /hpf (5-10)
[2024-03-30 18:00] LABS: White Blood Cells 5-10 SEEN /hpf (0-5)
[2024-03-30 18:01] LABS: Bacteria RARE /hpf (None Seen)
[2024-03-30 18:02] LABS: Red Blood Cells-Urine 0-5 SEEN /hpf (0-5)
--- NOTE | 2024-03-30 18:30 | HP.PCM.HOS_ITS ---
HPI - General General Date of Admission: 03/30/24 Date of Service: 03/30/24 Chief Complaint: Fall HPI Narrative JACOBY ESCALERA, is a 58 F with a significant history of class III obesity; anxiety and depression who presents to the emergency department with a fall. Reportedly 3 days before presentation patient fell and could not get up. She kept calling for help without getting help. However on the day of presentation he neighbor heard her yelling and she was finally brought to emergency department. Also patient reports of dysuria. At emergency department was found to have abnormal urinalysis. CPK was elevated. Creatinine was elevated. [facility] Medical History Anxiety disorder, unspecified Major depressive disorder, recurrent severe without psychotic features Cough Allergic conjunctivitis Allergic dermatitis of eyelids of both eyes Post-menopausal Wears contact lenses Wears glasses Wears dentures Vertigo History of renal disease High cholesterol Easy bruising History of IBS Gastric reflux Non-smoker Shortness of breath on exertion Leg cramps History of edema Hypertension Gout Exocrine pancreatic insufficiency Chronic diarrhea Stage III chronic kidney disease Obesity Post-surgical hypoparathyroidism Hypothyroidism (acquired) History of blood transfusion Obstructive sleep apnea Multiple endocrine neoplasia (MEN) type I Migraine Multiple endocrine neoplasia type 1 (MEN1) Insomnia Anxiety Edema Allergic rhinitis ADHD Vitamin D deficiency Depression Hypothyroidism Restless leg syndrome Post traumatic stress disorder GERD (gastroesophageal reflux disease) Irritable bowel syndrome Anemia Chronic kidney disease, stage 3 Sleep apnea Osteoarthritis of right knee Difficulty balancing Knee pain Fatigue Anemia Kidney disease Arthritis history of left foot fracture History of kidney stones Ureteral calculus Home Medications ?Medication ?Instructions ?Recorded ?Last Taken ?Type cyanocobalamin (vitamin B-12) 500 1,000 mcg PO DAILY@0800 Supplement 09/16/17 07/15/18 History mcg tablet atorvastatin 20 mg tablet 20 mg PO DAILY cholesterol #90 tabs 07/16/23 Unknown Rx fluticasone propionate 50 1 spray intranasal BID #16 grams 09/03/23 Unknown Rx mcg/actuation nasal spray,suspension (Allergy Relief (fluticasone)) albuterol sulfate 2.5 mg/3 mL 2.5 mg (3 mL) inhalation Q6H PRN 09/05/23 Unknown Rx (0.083 %) solution for nebulization shortness of breath or wheezing #75 mL nebulizer and compressor #1 ea 09/05/23 Unknown Rx compr.stocking,thigh,reg,x-lrg #12 ea 09/14/23 Unknown Rx potassium chloride 20 mEq 20 meq PO DAILY 11/01/23 Unknown History tablet,extended release pantoprazole 20 mg tablet,delayed 20 mg PO DAILY #90 tabs 11/22/23 Unknown Rx release (Protonix) calcitriol 0.25 mcg capsule 0.75 mcg (3 x 0.25 mcg) PO DAILY 12/24/23 Unknown Rx #270 caps levothyroxine 100 mcg tablet 100 mcg PO DAILY thyroid #90 tabs 12/24/23 Unknown Rx alprazolam 0.5 mg tablet 0.5 mg PO BID PRN anxiety #60 01/19/24 Unknown Rx TABLETS bupropion HCl 300 mg 24 hr tablet, See Rx Instructions .Route 01/19/24 Unknown Rx extended release .COMPLEX #90 tabs cariprazine 1.5 mg capsule 1.5 mg PO DAILY #30 caps 01/19/24 Unknown Rx vortioxetine 20 mg tablet 20 mg PO DAILY #90 tabs 01/19/24 Unknown Rx (Trintellix) cetirizine 0.24 % eye drops in a 1 drp ophthalmic (eye) BID #30 ea 01/31/24 Unknown Rx dropperette furosemide 20 mg tablet 20 mg PO DAILY 03/26/24 Unknown History gabapentin 300 mg capsule 300 mg PO TID 30 days #90 caps 03/26/24 Unknown Rx albuterol sulfate 90 mcg/actuation 2 puff inhalation Q4H PRN Wheezing 03/30/24 Unknown History aerosol inhaler (Ventolin HFA) benztropine 0.5 mg tablet 0.5 mg PO BID 03/30/24 Unknown History calcium 600 mg-D3 20 mcg-magnesium tab PO 03/30/24 Unknown History 50 kt-Yf-ucbsrn-perla-boron tablet (Calcium 600-D3 Plus (mag-zinc)) cariprazine 1.5 mg capsule 1.5 mg PO DAILY 03/30/24 Unknown History (Vraylar) Allergy/AdvReac Type Severity Reaction Status Date / Time Iodinated Contrast Media Allergy Rash Verified 03/30/24 15:12 (DYEE) propranolol Allergy unknown Verified 03/30/24 15:12 iron AdvReac Other Verified 03/30/24 15:12 morphine AdvReac Rash Verified 03/30/24 15:12 ondansetron (From Zofran) AdvReac Other Verified 03/30/24 15:12 Family History Mother Stomach cancer Anemia Arthritis MEN, type 1 Father Pneumonia Anxiety Arthritis Depression Surgical History History of esophagogastroduodenoscopy (EGD) History of colonoscopy H/O right knee surgery History of hysterectomy History of parathyroidectomy History of cholecystectomy history of right collar bone surgery history of gastric sleeve Social History adopted: No household members: none housing: apartment current occupational status: disabled current occupation: disability history of recent travel: No sexually active: No Smoking Status: Never smoker Electronic Cigarette Use: not used alcohol intake: current alcohol intake frequency: holidays/special occasions only details: once or twice a year substance use type: does not use, former substance user and marijuana diet: low salt well-balanced diet: about half the time caffeine: Yes eating out: 4 or more times/week during the past year weight has: increased > 10 lbs what type of physical activity do you participate in: walking frequency: 1-2 times per week seatbelt use: always do you feel safe at home: Yes ROS ROS Narrative A complete review of system is negative except as stated in HPI Vital Signs Vital Signs Vital Signs: 03/30/24 15:12 03/30/24 15:16 03/30/24 15:16 Temperature 98.6 F 98.6 F Temperature Source Oral Oral Pulse Rate 110 H 106 H Respiratory Rate 28 H 30 H Respiratory Effort Normal Respiratory Depth Normal Respiratory Pattern Normal Blood Pressure 151/111 H 145/115 H Blood Pressure Mean 124 125 Pulse Ox 95 Oxygen Delivery Method Room Air Room Air Room Air 03/30/24 16:20 03/30/24 17:00 03/30/24 18:00 Temperature 98.6 F 98.6 F Temperature Source Oral Oral Pulse Rate 104 H 100 100 Respiratory Rate 28 H 20 H 20 H Respiratory Effort Respiratory Depth Respiratory Pattern Blood Pressure 145/111 H 131/82 H 101/67 Blood Pressure Mean 122 98 78 Pulse Ox 94 96 94 Oxygen Delivery Method Room Air Room Air Room Air Weight Weight: 146.102 kg Body Mass Index (BMI) 50.4 Physical Exam Narrative Physical exam: General: Well-nourished, well-developed. Head: Normocephalic, atraumatic, no tenderness Eyes: Vision is grossly intact. EOMI ENT, no trauma, dry mucous membranes, no rhinorrhea Neck: Nontender, No thyromegaly. CVS: Regular rate and rhythm. S1-S2 present. No murmur, gallop or rub. Respiratory : clear to auscultation bilaterally, chest wall nontender Abdomen: Soft, nontender, nondistended, normal bowel sounds, no masses : Deferred Extremities: Abrasions on right knee. Contusions on the toes of bilateral feet. Skin: Normal color, no trauma, abrasions Neuro: Alert, oriented, cranial nerves II through XII grossly intact. Psychiatry: Normal mood. Normal affect. Not depressed. Not anxious. Results Lab / Micro Data 03/30/24 15:56 03/30/24 15:56 Labs: Laboratory Results - last 24 hr 03/30/24 15:56: WBC 17.1 H, RBC 4.75, Hgb 10.9 L, Hct 35.0 L, MCV 73.7 L, MCH 22.9 L, MCHC 31.1 L, RDW Std Deviation 54.8 H, RDW Coeff of Teena 21.3 H, Plt Count 326, MPV 10.6, Immature Gran % (Auto) 0.500, Neut % (Auto) 88.5 H, Lymph % (Auto) 5.8 L, [place] % (Auto) 4.7, Eos % (Auto) 0.3, Baso % (Auto) 0.2, Absolute Neuts (auto) 15.1 H, Absolute Lymphs (auto) 0.99, Nucleated RBC % 0, Differential Comment SCANNED, Polychromasia RARE, Hypochromasia 1+, Anisocytosis 2+, PT 15.5 H, INR 1.2, APTT 25.2, Sodium 138, Potassium 3.1 L, Chloride 105, Carbon Dioxide 22.0, Anion Gap 11, BUN 33 H, Creatinine 2.11 H, Estim Creat Clear Calc 44.30, Est GFR (MDRD) Af Amer 31 L, Est GFR (MDRD) Non-Af 26 L, BUN/Creatinine Ratio 15.6, Glucose 110 H, Calcium 9.6, Total Bilirubin 1.70 H, A ST 304 H, ALT 93 H, Alkaline Phosphatase 151 H, Total Creatine Kinase 51991 H, Total Protein 7.1, Albumin 3.1 L, Globulin 4.0, Albumin/Globulin Ratio 0.8 L 03/30/24 16:27: Urine Color Straw, Urine Clarity Clear, Urine pH 5.0, Ur Specific [place] 1.030, Urine Protein 30 H, Urine Glucose (UA) Normal, Urine Ketones 5 H, Urine Occult Blood 250 H, Urine Nitrite Negative, Urine Bilirubin 1 H, Urine Urobilinogen 1 H, Ur Leukocyte Esterase 25 H, Urine RBC 0-5 SEEN, Urine WBC 5-10 SEEN, Ur Squamous Epith Cells 0-5 SEEN, Urine Bacteria RARE, Urine Mucus 0 SEEN Imaging Radiology Impression Brain CT 03/30/24 15:35 IMPRESSION: Mild atrophy and periventricular white matter ischemic change No acute intracranial bleed Electronically Signed: Syed Jones MD at 17:41 EST Reading Location ID and State: [facility] / [place] Tel [phone], Service support , Cervical Spine CT 03/30/24 15:35 IMPRESSION: Advanced degenerative osteoarthritic changes.. No acute fracture or other significant bony pathology Electronically Signed: Syed Jones MD at 17:46 EST Reading Location ID and State: [address] [place] [address] Tel [phone], Service support , Chest X-Ray 03/30/24 17:15 IMPRESSION: Normal x-ray examination of the chest. Electronically Signed: Syed Jones MD at 17:48 EST , Pelvis X-Ray 03/30/24 17:15 IMPRESSION: Normal x-ray examination of the pelvis. Electronically Signed: Syed Jones MD at 17:47 EST Reading Location ID and State: [facility] / [place] Tel [phone], Service support , Tibia/Fibula X-Ray 03/30/24 17:15 IMPRESSION: No acute fractures status post knee prosthesis placement Electronically Signed: Syed Jones MD at 17:48 EST Reading Location ID and State: [address] [place] [address] Tel , Service support , Assessment & Plan Assessment/Plan (1) Rhabdomyolysis: QUALIFIERS: Rhabdomyolysis type: non-traumatic Qualified Code(s): M62.82 - Rhabdomyolysis (2) Accidental fall: QUALIFIERS: Encounter type: initial encounter Qualified Code(s): W19.XXXA - Unspecified fall, initial encounter (3) Hypertension: QUALIFIERS: Hypertension type: primary hypertension Qualified Code(s): I10 - Essential (primary) hypertension (4) Acute kidney injury superimposed on stage 3a chronic kidney disease: PLAN: Plan Sepsis secondary UTI The patient presented with sepsis due to (UTI) with acute sepsis related organ dysfunction as evidenced by (MERON with creatinine more than 2). SIRS criteria: Heart rate more than 90 WBC more than 12,000 Discussed with ED physician who gets lactic acid and blood cultures. A 2 L of normal normal saline bolus given emergency department. Acute rhabdomyolysis CPK elevated, trend Fall PT and OT Check vitamin D level Case management consult MERON on CKD stage IIIa Creatinine presentation is above baseline by more than 0.3. Trend. Avoid nephrotoxic's. Hold home Lasix History of hypertension With sepsis, trend. No antihypertensive medication at this time. DVT prophylaxis SCDs ordered Advance care planning: Discussed with patient and family advanced directives as well as CODE STATUS. Explained various CODE STATUS: FULL CODE, DNR CCA, DNR CCA with no intubation, and DNR CC- and what each meant. Patient elected to be a full code with CPR and intubation if warranted. Order was placed. Time spent on discussion 16 minutes. Time spent in the patient's overall evaluation,decision-making process, review of diagnostic data, adjustment of management, discussion with other providers, nursing and ancillary staff involved in patient's care documentation, 70 minutes. Sepsis Attestation Date exam was performed: 03/30/24 Time exam was performed: 18:53 Sepsis Organ Dysfunction Criteria Present: Creatinine > 2.0 mg/dL Fluid Resuscitation Fluid Resuscitation ordered: Fluids not indicated (Patient is not hypotensive. Awaiting lactic acid) Sepsis Note Date exam was performed: 03/30/24 Time exam was performed: 18:54 Sepsis Attestation: Sepsis re-evaluation was performed Charges/Coding Visit Charges Inpatient E&M: 63662 Init Hosp L3 Procedures Hospitalists Procedures: 12472 Advncd Care Plan 30 Min
[2024-03-30] MEDS: Potassium Chloride Oral Tablet 20 MEQ 40 MEQ PO (18:34)
[2024-03-30] MEDS: Ceftriaxone 1 GM/50 ML BAG IV (18:34)
[2024-03-30 19:07] LABS: Procalcitonin 0.24 ng/mL (0.00-0.09)
[2024-03-30 19:08] LABS: Lactic Acid 1.3 mmol/L (0.4-1.9)
[2024-03-30] MEDS: 0.9% Normal Saline (1000mL) 1,000 ML 150 ML IV (20:13)
--- NOTE | 2024-03-30 21:06 | CM.ED ---
Social work Reason for referral: frequent falls, failure to thrive Referral source: Chelsy MONTEZ This SW was approached by Chelsy MONTEZ stating patient's presentation to the [facility] ED after being found at home by a neighbor. Patient was reportedly found on the floor where patient was for days. Patient lives alone with a cat and patient reportedly had bruises on multiple places in various stages of healing. Per medical records, patient has anxiety and depression and at one point, took medication for it. Patient has been in TCU in November 2022 and September 2019, as well as involved with [facility] in the past. Patient has one reported suicide attempt in 2005. This SW and PAM Lynch entered patient's room, introducing selves and roles at [facility]. Patient accepted SW visit, stating patient had fallen and been on the ground for 2 days prior to patient's neighbor finding patient today. Patient stated wanting to call patient's mother, Helene Gallardo to let patient's mother know of patient's presentation to the ED; patient's mother's name was Helene Cindy, which patient stated remembering but having trouble with patient's memory. Patient stated feeling as if patient is going crazy because patient feels confused even though patient's scans are clear. Patient reported feeling off, but patient was unable to share for how long patient has felt this way. Per records, patient's mother is and this SW asked patient if patient remembered this. Patient stated remembering patient's mother had in 2019 and patient was reminded that patient's sister, Yaneth, was patient's emergency contact and HCPOA. Patient shared a story about Yaneth and patient's [id number], Carlito, where patient recalls going off on Carlito about something stupid and then being told by friends to go kill self. Patient reported attempting to kill self, then clarified that this was a long time ago. Patient stated being upset that Carlito takes patient to patient's surgeries and patient desires to get back to where we used to be (referring to patient's sister). Patient stated wanting to be close to patient's mother again and patient interchanged patient's sister's name and Mom throughout conversation. Much supportive presence and active listening utilized. Patient was able to recall that the year was 2024, though patient was unsure of what month it was. Patient was tearful throughout much of conversation. Due to patient's confusion and patient's sister being HCPOA, this SW called patient's sister, Yaneth, ([phone]) and left a voicemail requesting a return call. Plan: admission to acute; RN CM/SW to follow with support, resources, and discharge planning needs that may arise. Opal Kat, PILLOWCASE SEWER, SILVER SERVICE WAITER
[2024-03-30] MEDS: ALPRAZolam 0.5 MG Tablet PO (21:31)
[2024-03-30] MEDS: Gabapentin 100 MG Capsule 200 MG PO (21:31)
[2024-03-30] MEDS: Fluticasone 0.05% 1 SPRAY NASAL.SRY NASAL (21:31)
[2024-03-30] MEDS: Benztropine Mesylate 0.5 MG TABLET PO (21:32)
[2024-03-30] MEDS: Nystatin Powder 15gm Bottle 1 APPLIC TOPICAL (22:35)
[2024-03-31 02:59] VITALS: BP 122/65; PULSE 95; RESP 20; TEMP 36.8; O2SAT 95
[2024-03-31] MEDS: Acetaminophen 325 MG Tablet 650 MG PO (03:00)
[2024-03-31] MEDS: 0.9% Normal Saline (1000mL) 1,000 ML 150 ML IV (03:03)
[2024-03-31 06:23] LABS: Absolute Lymphocyte Count 1.89 X10^3/uL (0.83-4.51); Absolute Neutrophil Count 8.1 X10^3/uL (2.0-7.7); Basophil# 0.05 X10^3/uL; Basophil% 0.4 % (0-1); Eosinophil# 0.72 X10^3/uL; Eosinophils% 6.2 % (0-5); Hematocrit 28.2 % (37-47); Hemoglobin 8.8 g/dL (12.0-15.0); Lymphocyte # 1.89 X10^3/ul (0.83-4.51); Lymphocyte % 16.3 % (19-41); Mean Corp Hgb Conc 31.2 g/dL (32-36); Mean Corpuscular Hgb 23.3 pg (27.0-32.0); Mean Corpuscular Volume 74.6 fL (81-99); Mean Platelet Vol. 10.2 fl (6.2-12.0); Monocyte# 0.76 X10^3/uL; Monocyte% 6.5 % (0-10); NRBC Flagged by Analyzer 0 % (0-5); Neutrophil # 8.14 X10^3/uL (2.7-7.7); Neutrophil % 70.2 % (47-70); POSITIVE MORPHOLOGY YES; Platelet Count 261 K/mm3 (150-450); RBC Distribution Width CV 21.2 % (11.6-14.6); RBC Distribution Width SD 54.6 fl (35.1-43.9); Red Blood Count 3.78 M/mm3 (4.2-5.4); White Blood Count 11.6 K/mm3 (4.4-11.0)
[2024-03-31 06:33] LABS: Differential Indicated SCAN CRITERIA MET
[2024-03-31] MEDS: Gabapentin 100 MG Capsule 200 MG PO ×3 (06:33→21:14)
[2024-03-31] MEDS: Levothyroxine 100 MCG Tablet PO (06:33)
--- NOTE | 2024-03-31 07:27 | PCM.PN.HOSP ---
Reason for Visit Reason for Visit: Diagnoses Essential (primary) hypertension (03/30/24) Rhabdomyolysis (03/30/24) Acute kidney failure, unspecified (03/30/24) Chronic kidney disease, stage 3a (03/30/24) Unspecified fall, initial encounter (03/30/24) Subjective Subjective Patient is a 58-year-old female who was found on the floor confused by her neighbor brought to the emergency department and assessment of sepsis secondary to UTI as well as acute rhabdomyolysis made admitted to regular nursing floor for further management Objective Data Objective Data Vital Signs: Vital Signs Temp Pulse Resp BP Pulse Ox O2 Del Method 98.3 F 95 20 H 122/65 H 95 Room Air 03/31/24 02:59 03/31/24 02:59 03/31/24 02:59 03/31/24 02:59 03/31/24 02:59 03/31/24 02:59 Oxygen Delivery Method Room Air Weight: 140.81 kg Body Mass Index (BMI) 48.6 Intake & Output: Intake and Output for Last 24 Hours 03/29/24 03/30/24 03/31/24 23:59 23:59 23:59 Intake Total 2850 / 2850 1150 / 1150 Balance 2850 / 2850 1150 / 1150 Lab / Micro Data 03/31/24 05:57 03/31/24 05:57 Labs: Laboratory Results - last 24 hr 03/30/24 15:56: WBC 17.1 H, RBC 4.75, Hgb 10.9 L, Hct 35.0 L, MCV 73.7 L, MCH 22.9 L, MCHC 31.1 L, RDW Std Deviation 54.8 H, RDW Coeff of Teena 21.3 H, Plt Count 326, MPV 10.6, Immature Gran % (Auto) 0.500, Neut % (Auto) 88.5 H, Lymph % (Auto) 5.8 L, [place] % (Auto) 4.7, Eos % (Auto) 0.3, Baso % (Auto) 0.2, Absolute Neuts (auto) 15.1 H, Absolute Lymphs (auto) 0.99, Nucleated RBC % 0, Differential Comment SCANNED, Polychromasia RARE, Hypochromasia 1+, Anisocytosis 2+, PT 15.5 H, INR 1.2, APTT 25.2, Sodium 138, Potassium 3.1 L, Chloride 105, Carbon Dioxide 22.0, Anion Gap 11, BUN 33 H, Creatinine 2.11 H, Estim Creat Clear Calc 44.30, Est GFR (MDRD) Af Amer 31 L, Est GFR (MDRD) Non-Af 26 L, BUN/Creatinine Ratio 15.6, Glucose 110 H, Calcium 9.6, Total Bilirubin 1.70 H, AST 304 H, ALT 93 H, Alkaline Phosphatase 151 H, Total Creatine Kinase 16155 H, Total Protein 7.1, Albumin 3.1 L, Globulin 4.0, Albumin/Globulin Ratio 0.8 L 03/30/24 16:27: Urine Color Straw, Urine Clarity Clear, Urine pH 5.0, Ur Specific [place] 1.030, Urine Protein 30 H, Urine Glucose (UA) Normal, Urine Ketones 5 H, Urine Occult Blood 250 H, Urine Nitrite Negative, Urine Bilirubin 1 H, Urine Urobilinogen 1 H, Ur Leukocyte Esterase 25 H, Urine RBC 0-5 SEEN, Urine WBC 5-10 SEEN, Ur Squamous Epith Cells 0-5 SEEN, Urine Bacteria RARE, Urine Mucus 0 SEEN 03/30/24 18:30: Lactic Acid 1.3, Procalcitonin 0.24 H 03/31/24 05:57: WBC 11.6 H, RBC 3.78 L, Hgb 8.8 L, Hct 28.2 L, MCV 74.6 L, MCH 23.3 L, MCHC 31.2 L, RDW Std Deviation 54.6 H, RDW Coeff of Teena 21.2 H, Plt Count 261, MPV 10.2, Immature Gran % (Auto) 0.400, Neut % (Auto) 70.2 H, Lymph % (Auto) 16.3 L, [place] % (Auto) 6.5, Eos % (Auto) 6.2 H, Baso % (Auto) 0.4, Absolute Neuts (auto) 8.1 H, Absolute Lymphs (auto) 1.89, Nucleated RBC % 0 Radiography Diagnostic Testing: Radiology Impression Brain CT 03/30/24 15:35 IMPRESSION: Mild atrophy and periventricular white matter ischemic change No acute intracranial bleed Electronically Signed: Syed Jones MD at 17:41 EST Reading Location ID and State: [address] [facility] Tel [phone], Service support , Cervical Spine CT 03/30/24 15:35 IMPRESSION: Advanced degenerative osteoarthritic changes.. No acute fracture or other significant bony pathology Electronically Signed: Syed Jones MD at 17:46 EST Reading Location ID and State: [address] [place] [address] Tel [phone], Service support , Chest X-Ray 03/30/24 17:15 IMPRESSION: Normal x-ray examination of the chest. Electronically Signed: Syed Jones MD at 17:48 EST Reading Location ID and State: [address] [place] [address] Tel [phone], Service support , Pelvis X-Ray 03/30/24 17:15 IMPRESSION: Normal x-ray examination of the pelvis. Electronically Signed: Syed Jones MD at 17:47 EST Reading Location ID and State: [address] [place] [address] Tel [phone], Service support , Tibia/Fibula X-Ray 03/30/24 17:15 IMPRESSION: No acute fractures status post knee prosthesis placement Electronically Signed: Syed Jones MD at 17:48 EST Reading Location ID and State: [address] [place] [address] Tel [phone], Service support , Physical Exam Narrative GENERAL: cooperative HEENT: Atraumatic; normocephalic EYES; Anicteric, Normal Conjunctiva NECK; supple, normal thyroid, RESPIRATORY: Diminished to auscultation CARDIOVASCULAR: Regular S1 S2, GI: soft, normoactive bowel sounds, : No Renal angle tenderness; EXTREMITIES: No edema, no clubbing, MUSCULOSKELETAL: no muscle wasting NEURO: Awake; no lateralizing signs. SKIN: No Rash PSYCH; Flat affect Assessment & Plan Assessment/Plan (1) Rhabdomyolysis: QUALIFIERS: Rhabdomyolysis type: non-traumatic Qualified Code(s): M62.82 - Rhabdomyolysis (2) Accidental fall: QUALIFIERS: Encounter type: initial encounter Qualified Code(s): W19.XXXA - Unspecified fall, initial encounter (3) Hypertension: QUALIFIERS: Hypertension type: primary hypertension Qualified Code(s): I10 - Essential (primary) hypertension (4) Acute kidney injury superimposed on stage 3a chronic kidney disease: PLAN: Plan Patient is a 58-year-old female who was found on the floor confused by her neighbor brought to the emergency department and assessment of sepsis secondary to UTI as well as acute rhabdomyolysis made admitted to regular nursing floor for further management 1. Sepsis ? Secondary to UTI admitted to regular nursing floor managed per protocol with IV fluid resuscitation broad-spectrum antibiotic therapy after cultures have been sent 2. Acute rhabdomyolysis ? Following prolonged period of immobilization trending CPK levels 3. Physical debility with falls ? Requested for PT OT eval and sr. social media & mobile manager to assist with discharge planning 4. Hypothyroidism ? Patient is on levothyroxine home dose continued 5. Dyslipidemia ?Patient is on statin therapy held given patient rhabdomyolysis 5. GERD ? Patient with PPI 6. Acute kidney injury ? Patient kidney function improving with rehydration 7. Chronic kidney disease stage IIIa ? Patient presented with acute kidney injury management as discussed above 8. Hypokalemia ? Corrected per protocol with repeat labs ordered in a.m. 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 Depression with anxiety ? Patient is followed by psychiatry as outpatient 11. Posttraumatic stress disorder 12. Restless leg syndrome 13. Obstructive sleep apnea ? Consistent use of PAP therapy encouraged 14. Morbid obesity with BMI of 48.6 ? Complicating care weight loss advised 15. DVT prophylaxis ? Subcu heparin Time spent in the patient's overall evaluation,decision-making process, review of diagnostic data, adjustment of management, discussion with other providers, nursing nursing and ancillary staff involved in patient's care documentation, 52 Minutes Advance planning; did discuss with the patient and family regarding advanced directives as well as CODE STATUS. Did explain the various scenarios involved ( FULL CODE, DNR CCA, DNR CCA with no intubation, and DNR CC and what each meant) patient elected to remain full code. Order was placed. Time spent on discussion 16 minutes. Charges/Coding Multi Select Codes Visit Charges Visit Charges: 65918 [facility] Hosp L3 Hospitalists' Procedures Procedures: 02616 Advncd Care Plan 30 Min
[2024-03-31 08:28] LABS: ALB/GLOB Ratio 0.8 RATIO (0.9-2.4); AST(SGOT) 263 U/L (15-37); Alanine Aminotransfer ALT/SGPT 84 U/L (13-56); Albumin, Serum 2.4 g/dL (3.2-5.0); Alkaline Phosphatase 109 U/L (45-117); Anion Gap 11 (5-15); BUN 28 mg/dL (7-18); BUN/Creat Ratio 20.4 RATIO (10-20); CPK Total, Creatine Kinase 7461 U/L (26-192); Calcium,Total 8.2 mg/dL (8.5-10.1); Chloride 110 mmol/L (98-107); Creatinine, Serum 1.37 mg/dL (0.55-1.02); EST Glomerular Filtration Rate 42 mL/min (>60); Est Glom Filt Rate - Afr Amer 51 mL/min (>60); Estimated Creatinine Clearance 66.72 ml/min; Globulin 3.2 g/dL (2.2-4.2); Glucose 75 mg/dL (74-106); Potassium 2.8 mmol/L (3.5-5.1); Protein, Total 5.6 g/dL (6.4-8.2); Sodium Level 139 mmol/L (136-145)
[2024-03-31 08:46] VITALS: BP 106/70; PULSE 84; RESP 16; TEMP 36.7; O2SAT 92
[2024-03-31] MEDS: Cyanocobalamin 500 MCG Tablet 1000 MCG PO (08:54)
[2024-03-31] MEDS: Fluticasone 0.05% 1 SPRAY NASAL.SRY NASAL ×2 (08:55→21:15)
[2024-03-31] MEDS: Atorvastatin Calcium 20 MG Tablet PO (08:57)
[2024-03-31] MEDS: Nystatin Powder 15gm Bottle 1 APPLIC TOPICAL ×2 (08:57→21:14)
[2024-03-31] MEDS: Potassium Chloride Oral Tablet 20 MEQ PO ×2 (08:57→18:13)
[2024-03-31] MEDS: Pantoprazole Sodium 20 MG Tablet PO (08:59)
[2024-03-31] MEDS: Calcitriol 0.25 MCG Capsule 0.75 MCG PO (08:59)
[2024-03-31] MEDS: CARIPRAZINE HCL 1.5 MG CAPSULE PO (08:59)
[2024-03-31] MEDS: buPROPion (XL) 300 MG TABLET.XL PO (08:59)
[2024-03-31] MEDS: Ceftriaxone 1 GM/50 ML BAG IV (09:10)
[2024-03-31 09:27] LABS: Magnesium 1.9 mg/dL (1.6-2.6); Phosphorus 3.6 mg/dL (2.5-4.9)
--- NOTE | 2024-03-31 11:20 | CASEMGMT ---
RN ARLETTE NOTE: RN CM to room. Pt sitting up in chair, sleeping. RN CM able to awaken pt, but then she quickly would fall back asleep. Assessment to be completed at a later time when pt more awake/alert. Dona RAYON MELIDA CM
[2024-03-31] MEDS: VORTIOXETINE HYDROBROMIDE 20 MG TABLET PO (11:36)
[2024-03-31] MEDS: Potassium Chloride Oral Tablet 20 MEQ 60 MEQ PO (11:36)
[2024-03-31] MEDS: Benztropine Mesylate 0.5 MG TABLET PO ×2 (11:36→21:14)
[2024-03-31 14:05] LABS: Potassium 3.4 mmol/L (3.5-5.1)
[2024-03-31] MEDS: Heparin Injection (Vial) 5,000 UNIT/ML VIAL 5000 UNIT SC ×2 (14:10→21:14)
[2024-03-31] MEDS: Tamsulosin HCl 0.4 MG Capsule PO (15:17)
[2024-03-31 15:18] VITALS: BP 130/72; PULSE 85; RESP 16; TEMP 36.4; O2SAT 100
--- NOTE | 2024-03-31 15:35 | CASEMGMT ---
MELIDA CHONG Assessment Face to Face with patient for initial transition planning/care coordination assessment. MELIDA CHONG introduced self and role at [facility], pt voices understanding. Pt is A&Ox4 and is resting comfortably in bed and is calm. Care providers, pharmacy, and demographics verified. Admitting dx: Sepsis LACE Strata: 3 PCP: Alondra Davies Specialists: and [facility] Endocrin[facility]. Josué (Nephro). Friend (GI) Preferred Pharmacy: [facility] Insurance: RAHUL RANDALL Prescription Benefit: Yes LNOK: Yaneth Britton (Sister) Living Arrangements: Pt lives alone in a ground level apartment with a flat entrance. ADLs/IADLs: Pt states that she is ind and denies concerns Transportation: Self, sister. Pt states that she is unsure if her sister will be able to provide the pt with transportation at the time of DC. [facility] staff to follow. DME: [employer]WW. Cane. Toilet side rails. shower chair. Grab bars. HHC/SNF: Hx with [facility] HH and [facility] TCU Pt?s goal: Return home Plan: Home, no needs at this time. Pt reports that she did well with therapy and denies the need for HH, OP Tx, or CCN. Pt states that she feels safe returning to her apartment alone at the time of DC. Pt is aware of what happened prior to hospitalization and states that she feels much better now. Pt states that if she changes her mind that she will f/u with her PCP to get OP Tx established. This MELIDA CHONG inquired if the pt sister is involved and if she is able to provide the pt with support. Pt states not really. Pt educated to notify [facility] staff (ARLETTE/PAM) if she changes her mind and would like acute HH or OP Tx set up. Pt states understanding and denies further concerns at this time. Marilu Morales RN, CM
[2024-03-31 20:00] VITALS: BP 108/70; PULSE 84; RESP 16; TEMP 36.6; O2SAT 96
[2024-04-01 02:35] VITALS: BP 136/72; PULSE 90; RESP 16; TEMP 36.8; O2SAT 93
[2024-04-01] MEDS: Levothyroxine 100 MCG Tablet PO (05:28)
[2024-04-01] MEDS: Gabapentin 100 MG Capsule 200 MG PO (05:29)
[2024-04-01] MEDS: Acetaminophen 325 MG Tablet 650 MG PO (05:29)
[2024-04-01] MEDS: ALPRAZolam 0.5 MG Tablet PO (05:31)
[2024-04-01] MEDS: Heparin Injection (Vial) 5,000 UNIT/ML VIAL 5000 UNIT SC (05:32)
[2024-04-01 06:44] LABS: Absolute Lymphocyte Count 1.55 X10^3/uL (0.83-4.51); Absolute Neutrophil Count 4.9 X10^3/uL (2.0-7.7); Basophil# 0.04 X10^3/uL; Basophil% 0.5 % (0-1); Eosinophil# 0.68 X10^3/uL; Eosinophils% 8.7 % (0-5); Hematocrit 28.3 % (37-47); Hemoglobin 8.8 g/dL (12.0-15.0); Lymphocyte # 1.55 X10^3/ul (0.83-4.51); Lymphocyte % 19.9 % (19-41); Mean Corp Hgb Conc 31.1 g/dL (32-36); Mean Corpuscular Hgb 23.5 pg (27.0-32.0); Mean Corpuscular Volume 75.7 fL (81-99); Mean Platelet Vol. 10.4 fl (6.2-12.0); Monocyte# 0.53 X10^3/uL; Monocyte% 6.8 % (0-10); NRBC Flagged by Analyzer 0 % (0-5); Neutrophil # 4.93 X10^3/uL (2.7-7.7); Neutrophil % 63.5 % (47-70); POSITIVE MORPHOLOGY YES; Platelet Count 253 K/mm3 (150-450); RBC Distribution Width SD 57.2 fl (35.1-43.9); Red Blood Count 3.74 M/mm3 (4.2-5.4); White Blood Count 7.8 K/mm3 (4.4-11.0)
[2024-04-01 06:45] LABS: Differential Indicated SCAN CRITERIA MET
[2024-04-01 07:07] LABS: Phosphorus 2.5 mg/dL (2.5-4.9)
[2024-04-01 07:08] LABS: Anion Gap 9 (5-15); BUN 25 mg/dL (7-18); BUN/Creat Ratio 22.9 RATIO (10-20); Calcium,Total 8.6 mg/dL (8.5-10.1); Chloride 108 mmol/L (98-107); Creatinine, Serum 1.09 mg/dL (0.55-1.02); EST Glomerular Filtration Rate 55 mL/min (>60); Est Glom Filt Rate - Afr Amer 66 mL/min (>60); Estimated Creatinine Clearance 83.85 ml/min; Glucose 105 mg/dL (74-106); Magnesium 1.9 mg/dL (1.6-2.6); Potassium 3.6 mmol/L (3.5-5.1); Sodium Level 138 mmol/L (136-145)
--- NOTE | 2024-04-01 07:37 | DS.PCM_ITS ---
Providers Date of Admission: 03/30/24 Date of Discharge: 04/01/24 Primary Care Physician: Dr. Alondra Davies MD Reason For Visit: SEPSIS Diagnosis Discharge Diagnosis (1) Rhabdomyolysis: Status: Acute Code(s): M62.82 - Rhabdomyolysis Qualifiers: Rhabdomyolysis type: non-traumatic Qualified Code(s): M62.82 - Rhabdomyolysis (2) Accidental fall: Status: Acute Code(s): W19.XXXA - Unspecified fall, initial encounter Qualifiers: Encounter type: initial encounter Qualified Code(s): W19.XXXA - Unspecified fall, initial encounter (3) Hypertension: Status: Chronic Code(s): I10 - Essential (primary) hypertension Qualifiers: Hypertension type: primary hypertension Qualified Code(s): I10 - Essential (primary) hypertension (4) Acute kidney injury superimposed on stage 3a chronic kidney disease: Status: Acute Code(s): N17.9 - Acute kidney failure, unspecified; N18.31 - Chronic kidney disease, stage 3a Plan Patient is a 58-year-old female who was found on the floor confused by her neighbor brought to the emergency department and assessment of sepsis secondary to UTI as well as acute rhabdomyolysis made admitted to regular nursing floor for further management 1. Sepsis ? Secondary to UTI admitted to regular nursing floor managed per protocol with IV fluid resuscitation broad-spectrum antibiotic therapy after cultures have been sent ? 04/01/2024; patient urine cultures came back negative. 2. Acute rhabdomyolysis ? Following prolonged period of immobilization trending CPK levels 3. Physical debility with falls ? Requested for PT OT eval and high school social studies teacher to assist with discharge planning ? 04/01/2019 patient was assessed by physical therapy was felt safe to be discharged home with home health 4. Hypothyroidism ? Patient is on levothyroxine home dose continued 5. Dyslipidemia ?Patient is on statin therapy held given patient rhabdomyolysis 5. GERD ? Patient with PPI 6. Acute kidney injury ? Patient kidney function improving with rehydration ? 04/01/2024 kidney function did improve 7. Chronic kidney disease stage IIIa ? Patient presented with acute kidney injury management as discussed above 8. Hypokalemia ? Corrected per protocol with repeat labs ordered in a.m. 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 Depression with anxiety ? Patient is followed by psychiatry as outpatient 11. Posttraumatic stress disorder 12. Restless leg syndrome 13. Obstructive sleep apnea ? Consistent use of PAP therapy encouraged 14. Morbid obesity with BMI of 48.6 ? Complicating care weight loss advised 15. DVT prophylaxis ? Subcu heparin Time spent in the patient's overall evaluation,decision-making process, review of diagnostic data, adjustment of management, discussion with other providers, nursing nursing and ancillary staff involved in patient's care documentation, 35 minutes Medications at Discharge Home Medications cyanocobalamin (vitamin B-12) 500 mcg tablet 1,000 mcg PO DAILY@0800 Supplement 09/16/17 atorvastatin 20 mg tablet 20 mg PO DAILY cholesterol #90 tabs 07/16/23 fluticasone propionate 50 mcg/actuation nasal spray,suspension (Allergy Relief (fluticasone)) 1 spray intranasal BID #16 grams 09/03/23 albuterol sulfate 2.5 mg/3 mL (0.083 %) solution for nebulization 2.5 mg (3 mL) inhalation Q6H PRN shortness of breath or wheezing #75 mL 09/05/23 nebulizer and compressor #1 ea 09/05/23 compr.stocking,thigh,reg,x-lrg #12 ea 09/14/23 potassium chloride 20 mEq tablet,extended release 20 meq PO DAILY 11/01/23 pantoprazole 20 mg tablet,delayed release (Protonix) 20 mg PO DAILY #90 tabs 11/22/23 calcitriol 0.25 mcg capsule 0.75 mcg (3 x 0.25 mcg) PO DAILY #270 caps 12/24/23 levothyroxine 100 mcg tablet 100 mcg PO DAILY thyroid #90 tabs 12/24/23 alprazolam 0.5 mg tablet 0.5 mg PO BID PRN anxiety #60 TABLETS 01/19/24 bupropion HCl 300 mg 24 hr tablet, extended release See Rx Instructions .Route .COMPLEX #90 tabs 01/19/24 cariprazine 1.5 mg capsule 1.5 mg PO DAILY #30 caps 01/19/24 vortioxetine 20 mg tablet (Trintellix) 20 mg PO DAILY #90 tabs 01/19/24 cetirizine 0.24 % eye drops in a dropperette 1 drp ophthalmic (eye) BID #30 ea 01/31/24 furosemide 20 mg tablet 20 mg PO DAILY 03/26/24 gabapentin 300 mg capsule 300 mg PO TID 30 days #90 caps 03/26/24 albuterol sulfate 90 mcg/actuation aerosol inhaler (Ventolin HFA) 2 puff inhalation Q4H PRN Wheezing 03/30/24 benztropine 0.5 mg tablet 0.5 mg PO BID 03/30/24 calcium 600 mg-D3 20 mcg-magnesium 50 hb-Zk-xcdtdp-perla-boron tablet (Calcium 600-D3 Plus (mag-zinc)) tab PO 03/30/24 cariprazine 1.5 mg capsule (Vraylar) 1.5 mg PO DAILY 03/30/24 cephalexin 500 mg capsule 500 mg PO TID #20 caps 04/01/24 Physical Exam Narrative GENERAL: cooperative HEENT: Atraumatic; normocephalic EYES; Anicteric, Normal Conjunctiva NECK; supple, normal thyroid, RESPIRATORY: Diminished to auscultation CARDIOVASCULAR: Regular S1 S2, GI: soft, normoactive bowel sounds, : No Renal angle tenderness; EXTREMITIES: No edema, no clubbing, MUSCULOSKELETAL: no muscle wasting NEURO: Awake; no lateralizing signs. SKIN: No Rash PSYCH; Flat affect Weight / BMI Weight Weight: 140.8 kg Body Mass Index (BMI) 48.6 ABG / Lab / Microbiology Data 04/01/24 06:03 04/01/24 06:03 Laboratory: Laboratory Results - last 24 hr 03/31/24 05:57: Sodium 139, Potassium 2.8 L, Chloride 110 H, Carbon Dioxide 19.0 L, Anion Gap 11, BUN 28 H, Creatinine 1.37 H, Estim Creat Clear Calc 66.72, Est GFR (MDRD) Af Amer 51 L, Est GFR (MDRD) Non-Af 42 L, BUN/Creatinine Ratio 20.4 H , Glucose 75, Calcium 8.2 L, Phosphorus 3.6, Magnesium 1.9, Total Bilirubin 1.00, AST 263 H, ALT 84 H, Alkaline Phosphatase 109, Total Creatine Kinase 7461 H, Total Protein 5.6 L, Albumin 2.4 L, Globulin 3.2, Albumin/Globulin Ratio 0.8 L 03/31/24 13:38: Potassium 3.4 L 04/01/24 06:03: WBC 7.8, RBC 3.74 L, Hgb 8.8 L, Hct 28.3 L, MCV 75.7 L, MCH 23.5 L, MCHC 31.1 L, RDW Std Deviation 57.2 H, RDW Coeff of Teena 22.0 H, Plt Count 253, MPV 10.4, Immature Gran % (Auto) 0.600, Neut % (Auto) 63.5, Lymph % (Auto) 19.9, [place] % (Auto) 6.8, Eos % (Auto) 8.7 H, Baso % (Auto) 0.5, Absolute Neuts (auto) 4.9, Absolute Lymphs (auto) 1.55, Nucleated RBC % 0, Sodium 138, Potassium 3.6, Chloride 108 H, Carbon Dioxide 21.0, Anion Gap 9, BUN 25 H, C reatinine 1.09 H, Estim Creat Clear Calc 83.85, Est GFR (MDRD) Af Amer 66, Est GFR (MDRD) Non-Af 55 L, BUN/Creatinine Ratio 22.9 H, Glucose 105, Calcium 8.6, Phosphorus 2.5, Magnesium 1.9 Microbiology: Microbiology 03/30/24 16:27 Urine, Catheterized Urine Culture - Preliminary Culture exhibits no growth. D/C Instructions Discharge Diet: No restrictions Discharge Activity: Return to Normal Activity Call your doctor if you observe: Fever of 101 or Higher, Shortness of breath, Fainting spells and Chest pain DC O2, CPAP, BIPAP Needs Home O2 Discharge instructions: No Meaningful Use Info Meaningful Use Meaningful Use Diagnoses (Choose all that apply): None applicable Ischemic Stroke Statin Dosing Therapy Reference: STATIN DOSE THERAPY REFERENCE: * Patients > 75 years receive moderate or high dose statin therapy. * Patients 75 years or YOUNGER should receive HIGH intensity statin dose unless contraindicated. You will be required to document reason for non-treatment if statin daily dose does not meet guidelines. HIGH DOSE STATIN THERAPY DAILY Atorvastatin > than or = to 40 mg Rosuvastatin > than or = to 20 mg Amlodipine + Atorvastatin > than or = to 2.5/40 mg Ezetimibe + Simvastatin 10/80 mg Simvastatin 80mg Discharge Plan Admission Admit Date/Time: 03/30/24 18:24 Attending Provider: Jonathan Jim Primary Care Provider: Alondra Davies Consulting Providers: Velasquez Gonzalez Discharge Orders/Prescriptions Prescriptions: New cephalexin 500 mg capsule 500 mg PO TID Qty: 20 0RF Continued calcitriol 0.25 mcg capsule 0.75 mcg PO DAILY Qty: 270 3RF levothyroxine 100 mcg tablet 100 mcg PO DAILY Qty: 90 3RF (DME) compr.stocking,thigh,reg,x-lrg Misc See Rx Instructions .Route Qty: 12 0RF Rx Instructions: As directed Trintellix 20 mg tablet 20 mg PO DAILY Qty: 90 1RF cariprazine 1.5 mg capsule 1.5 mg PO DAILY Qty: 30 2RF bupropion HCl 300 mg tablet extended release 24 hr See Rx Instructions .ROUTE .COMPLEX Qty: 90 2RF Dose Instruction: take 1 tablet by mouth once daily for MOOD Rx Instructions: take 1 tablet by mouth once daily for MOOD alprazolam 0.5 mg tablet 0.5 mg PO BID PRN (Reason: anxiety) Qty: 60 3RF cetirizine 0.24 % dropperette 1 drp ophthalmic (eye) BID Qty: 30 0RF cyanocobalamin (vitamin B-12) 500 MCG tablet 1,000 mcg PO DAILY@0800 fluticasone propionate [Allergy Relief (fluticasone)] 50 mcg/actuation spray,suspension 1 spray intranasal BID Qty: 16 0RF Rx Instructions: administer into each nostril potassium chloride 20 mEq tablet extended release 20 meq PO DAILY furosemide 20 mg tablet 20 mg PO DAILY gabapentin 300 mg capsule 300 mg PO TID 30 Days Qty: 90 0RF Vraylar 1.5 mg capsule 1.5 mg PO DAILY benztropine 0.5 mg tablet 0.5 mg PO BID Ca-D3-mag ny-couk-frn-anibal-bor [Calcium 600-D3 Plus (mag-zinc)] 600 mg calcium- 20 mcg-50 mg tablet PO Patient Comments: calcium 1000/mag 400/ zinc 15/ vit d 15. pt cannot confirm freq albuterol sulfate [Ventolin HFA] 90 mcg/actuation HFA aerosol inhaler 2 puff inhalation Q4H PRN (Reason: Wheezing) atorvastatin 20 mg tablet 20 mg PO DAILY Qty: 90 0RF albuterol sulfate 2.5 mg /3 mL (0.083 %) solution for nebulization 2.5 mg inhalation Q6H PRN (Reason: shortness of breath or wheezing) Qty: 75 0RF Patient Comments: pt states she doesnt use but is supposed to. (DME) nebulizer and compressor Device See Rx Instructions .Route Qty: 1 0RF Rx Instructions: As directed pantoprazole [Protonix] 20 mg tablet,delayed release (DR/EC) 20 mg PO DAILY Qty: 90 0RF Referrals / Follow Up: Alondra Davies MD [Primary Care Provider] - Within 1 Week Disposition Disposition (needs filled in before D/C Order can be placed): Home, Self Care Charges/Coding Visit Charges Inpatient E&M: 35545 Disch Hosp >30min
[2024-04-01 08:11] VITALS: PULSE 100
[2024-04-01 08:14] VITALS: BP 101/68; PULSE 91; RESP 20; TEMP 36.8; O2SAT 95
[2024-04-01] MEDS: Pantoprazole Sodium 20 MG Tablet PO (08:21)
[2024-04-01] MEDS: buPROPion (XL) 300 MG TABLET.XL PO (08:21)
[2024-04-01] MEDS: Nystatin Powder 15gm Bottle 1 APPLIC TOPICAL (08:21)
[2024-04-01] MEDS: CARIPRAZINE HCL 1.5 MG CAPSULE PO (08:22)
[2024-04-01] MEDS: Calcitriol 0.25 MCG Capsule 0.75 MCG PO (08:22)
[2024-04-01] MEDS: Fluticasone 0.05% 1 SPRAY NASAL.SRY NASAL (08:22)
[2024-04-01] MEDS: Benztropine Mesylate 0.5 MG TABLET PO (08:22)
[2024-04-01] MEDS: VORTIOXETINE HYDROBROMIDE 20 MG TABLET PO (08:23)
[2024-04-01] MEDS: Cyanocobalamin 500 MCG Tablet 1000 MCG PO (08:26)
[2024-04-01] MEDS: Potassium Chloride Oral Tablet 20 MEQ PO (08:26)
[2024-04-01] MEDS: Atorvastatin Calcium 20 MG Tablet PO (08:28)
[2024-04-01 08:33] LABS: Anisocytosis 2+; Differential Comment SCANNED; Hypochromasia 1+; Microcytosis 1+; Platelet Estimate ADEQUATE (ADEQ); Polychromasia 1+; Target Cells RARE
[2024-04-01 09:55] LABS: CPK Total, Creatine Kinase 4258 U/L (26-192)
[2024-04-01] MEDS: Ceftriaxone 1 GM/50 ML BAG IV (10:13)
[2024-04-01] MEDS: 0.9% Saline Lock 10 ML Syringe IV (10:14)
--- NOTE | 2024-04-01 10:35 | CASEMGMT ---
MELIDA CHONG NOTE: MELIDA CHONG informed pt does not have a ride home and that Dr Jim is requesting she receive medical alert info. MELIDA CHONG to room. Pt sitting up in chair. Introduced self and role. 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 Pt gave permission for MELIDA CHONG to call her sister. Call placed to sister, Yaneth. Yaneth states she did not even know pt was in the hospital and inquired about why she was admitted. MELIDA CHONG to room and pt made aware. Pt gave permission for MELIDA CHONG to discuss her hospitalization and medical care w/Yaneth. MELIDA CHONG spoke w/Yaneth again and updated her on reason for pt's admission and care. She was made aware pt discharging home today. Yaneth states she will be able to take pt home and will be able to come around 11:30 AM. Pt and RN made aware. Discussed home-going needs. Pt interested in HHC. Aware of [facility]'s criteria of being home-bound. She states she feels she will be homebound initially for awhile. She would like [facility] and declines wanting list of other HHC options, unless [facility] unable to accept. Call placed to [facility] and left re: referral. Pt made aware [facility] unable to accept on the weekend and will look @ the referral on Wednesday. She was made aware someone would f/u with on Wed re: if they can accept and if not, CM research assistant member can assist w/trying to find another HHC agency. She voices understanding. E-mail sent to dank Manning research assistant member, to f/u on this on Wednesday. Pt provided w/medical alert info. Sister asks if pt could have her dc medications prior to her picking her up. Call placed to pharmacy for [id number] and they have delivered it to her room. Pt voices appreciation and denies having other discharge needs/concerns. Dona BEAL RN, CM
--- NOTE | 2024-04-03 15:16 | CASEMGMT ---
Addendum entered by Kerri Go 04/03/24 15:27: [facility] accepted. All other referrals cancelled. Pt and her sister (Yaneth) updated. Kerri Go DC Planning Asst. Addendum entered by Kerri Go 04/03/24 15:21: [facility], [facility], and [facility] have declined. Kerri Go DC Planning Asst. Original Note: [facility] declined referral. Unable to contact pt but was able to reach sister (pt was with her). They asked for blanket referral to be sent out. Referral sent to; [facility], [facility], [facility], [facility], , [place], [facility], [facility], [facility], [facility], [place] [facility], and [facility]. Kerri Go DC Planning Asst.
== END 2024-04-01 12:07 | disposition home health service (06) | DRG 872 ==
LOC: ED 18:31 → MS3 18:42
PROVIDERS: Family Medicine; Admitting Provider Hospitalist; Emergency Provider Emergency Medicine; PCP Internal Medicine; Referring Provider Emergency Medicine; Visit Provider Internal Medicine
DX: A41.9 Sepsis, unspecified organism (principal); M62.82 Rhabdomyolysis; Z68.43 Body mass index [BMI] 50.0-59.9, adult; N17.9 Acute kidney failure, unspecified; N39.0 Urinary tract infection, site not specified; N18.31 Chronic kidney disease, stage 3a; I12.9 Hypertensive chronic kidney disease with stage 1 through stage 4 chronic kidney disease, or unspecified chronic kidney disease; E03.9 Hypothyroidism, unspecified; G25.81 Restless legs syndrome; F32.A Depression, unspecified; E66.01 Morbid (severe) obesity due to excess calories; K21.9 Gastro-esophageal reflux disease without esophagitis; E78.00 Pure hypercholesterolemia, unspecified; E87.6 Hypokalemia; G47.33 Obstructive sleep apnea (adult) (pediatric); W19.XXXA Unspecified fall, initial encounter; F41.9 Anxiety disorder, unspecified; F43.10 Post-traumatic stress disorder, unspecified; Z79.51 Long term (current) use of inhaled steroids; Z79.899 Other long term (current) drug therapy
CPT/HCPCS: 36415; 70450; 71045; 72125; 72170; 73590; 80048; 80053; 81001; 82550; 83605; 83735; 84100; 84132; 84145; 85025; 85610; 85730; 87040; 87086; 93005; 97162; 97166; 97802; 99285; A4216

== ENCOUNTER 2024-04-02 08:34 | Emergency (ER) | payer MEDICARE, MEDICAID, SELFPAY ==
[2024-04-02] VITALS (10 sets, daily range): BP systolic 108–138; BP diastolic 51–97; PULSE 78–98; RESP 16–19; TEMP 36.4–37.2; O2SAT 94–100; BMI 50.7
--- NOTE | 2024-04-02 09:30 | RAD_ITS ---
INDICATION: Adventitial breath sounds EXAMINATION/TECHNIQUE: X-RAY - XR Chest 2 Views COMPARISON: No relevant prior comparison study available FINDINGS: LINES/DEVICES: None. LUNGS: No consolidation, edema or effusion. No pneumothorax. MEDIASTINUM AND CARDIOVASCULAR STRUCTURES: Cardiac silhouette not enlarged. Central airways and mediastinal contour are unremarkable. BONES AND SOFT TISSUES: Unremarkable. RAD/Chest PA and Lateral IMPRESSION: No radiographic evidence of acute cardiopulmonary disease. Electronically Signed: Neno Peace MD at 11:20 EST ,
[2024-04-02 09:33] LABS: Absolute Lymphocyte Count 1.16 X10^3/uL (0.83-4.51); Absolute Neutrophil Count 5.5 X10^3/uL (2.0-7.7); Basophil# 0.05 X10^3/uL; Basophil% 0.6 % (0-1); Eosinophil# 0.57 X10^3/uL; Eosinophils% 7.1 % (0-5); Hematocrit 33.9 % (37-47); Hemoglobin 10.4 g/dL (12.0-15.0); Lymphocyte # 1.16 X10^3/ul (0.83-4.51); Lymphocyte % 14.4 % (19-41); Mean Corp Hgb Conc 30.7 g/dL (32-36); Mean Corpuscular Hgb 23.9 pg (27.0-32.0); Mean Corpuscular Volume 77.8 fL (81-99); Mean Platelet Vol. 9.8 fl (6.2-12.0); Monocyte# 0.71 X10^3/uL; Monocyte% 8.8 % (0-10); NRBC Flagged by Analyzer 0 % (0-5); Neutrophil # 5.48 X10^3/uL (2.7-7.7); Neutrophil % 68.4 % (47-70); POSITIVE MORPHOLOGY YES; Platelet Count 248 K/mm3 (150-450); RBC Distribution Width CV 22.7 % (11.6-14.6); RBC Distribution Width SD 59.7 fl (35.1-43.9); Red Blood Count 4.36 M/mm3 (4.2-5.4)
[2024-04-02 09:35] LABS: Differential Indicated SCAN CRITERIA MET
--- NOTE | 2024-04-02 09:47 | ED.VIS.FALL ---
HPI HPI - Fall History of Present Illness Chief Complaint: Fall Detail of Chief Complaint: Patient had a fall. She sustained injury to her left elbow Informant: patient Occured/Mechanism Occurred: Today Mechanism/Context: Yes cannot recall fall Narrative: Per HPI narrative Fall from Height (ft): Fell from a standing position Usually ambulates: Without assistance Pain/Injury Pain Location: upper extremity (Left side elbow) Quality of Pain: Dull and Aching Current Severity: Mild Maximum Severity: Moderate Worsened by: Passive range of motion and palpation over the lateral epicondyle Associated Symptoms Associated Symptoms: Negative for Parasthesias, Weakness, Loss of function, Inability to ambulate, Loss of consciousness or Amnesia Length of loss of consciousness: Patient denies head trauma. Narrative Narrative: Patient is a 58-year-old woman. Patient was seen on March 30 admitted. She was found to have rhabdomyolysis nontraumatic, altered mental status, hypertension. [facility] contacted the floor she was discharged from on the . She was not oriented to time of discharge per her nurse. Under the plan of the discharge summary authored by Dr. Jonathan elmore patient was felt to have sepsis due to UTI and admitted to a regular medical floor. She also had rhabdomyolysis, physical disc ability/debility with falls and acute kidney injury. She has multiple medical problems. She does have multiple endocrine Lopreeza type I Patient is disoriented time. Reportedly this is normal for patient. Physical exam documented by Dr. Elmore was very brief. There was no mention of disorientation or if patient was oriented. Patient told me that there is problems with her potassium and calcium. Prior similar symptoms: Yes Recent Illness/Hospitalization: Yes [facility] Medical History Anxiety disorder, unspecified Major depressive disorder, recurrent severe without psychotic features Cough Allergic conjunctivitis Allergic dermatitis of eyelids of both eyes Post-menopausal Wears contact lenses Wears glasses Wears dentures Vertigo History of renal disease High cholesterol Easy bruising History of IBS Gastric reflux Non-smoker Shortness of breath on exertion Leg cramps History of edema Hypertension Gout Exocrine pancreatic insufficiency Chronic diarrhea Stage III chronic kidney disease Obesity Post-surgical hypoparathyroidism Hypothyroidism (acquired) History of blood transfusion Obstructive sleep apnea Multiple endocrine neoplasia (MEN) type I Migraine Multiple endocrine neoplasia type 1 (MEN1) Insomnia Anxiety Edema Allergic rhinitis ADHD Vitamin D deficiency Depression Hypothyroidism Restless leg syndrome Post traumatic stress disorder GERD (gastroesophageal reflux disease) Irritable bowel syndrome Anemia Chronic kidney disease, stage 3 Sleep apnea Osteoarthritis of right knee Difficulty balancing Knee pain Fatigue Anemia Kidney disease Arthritis history of left foot fracture History of kidney stones Ureteral calculus Home Medications ?Medication ?Instructions ?Recorded ?Last Taken ?Type cyanocobalamin (vitamin B-12) 500 1,000 mcg PO DAILY@0800 Supplement 09/16/17 07/15/18 History mcg tablet atorvastatin 20 mg tablet 20 mg PO DAILY cholesterol #90 tabs 07/16/23 Unknown Rx fluticasone propionate 50 1 spray intranasal BID #16 grams 09/03/23 Unknown Rx mcg/actuation nasal spray,suspension (Allergy Relief (fluticasone)) albuterol sulfate 2.5 mg/3 mL 2.5 mg (3 mL) inhalation Q6H PRN 09/05/23 Unknown Rx (0.083 %) solution for nebulization shortness of breath or wheezing #75 mL nebulizer and compressor #1 ea 09/05/23 Unknown Rx compr.stocking,thigh,reg,x-lrg #12 ea 09/14/23 Unknown Rx potassium chloride 20 mEq 20 meq PO DAILY 11/01/23 Unknown History tablet,extended release pantoprazole 20 mg tablet,delayed 20 mg PO DAILY #90 tabs 11/22/23 Unknown Rx release (Protonix) calcitriol 0.25 mcg capsule 0.75 mcg (3 x 0.25 mcg) PO DAILY 12/24/23 Unknown Rx #270 caps levothyroxine 100 mcg tablet 100 mcg PO DAILY thyroid #90 tabs 12/24/23 Unknown Rx alprazolam 0.5 mg tablet 0.5 mg PO BID PRN anxiety #60 01/19/24 Unknown Rx TABLETS bupropion HCl 300 mg 24 hr tablet, See Rx Instructions .Route 01/19/24 Unknown Rx extended release .COMPLEX #90 tabs vortioxetine 20 mg tablet 20 mg PO DAILY #90 tabs 01/19/24 Unknown Rx (Trintellix) furosemide 20 mg tablet 20 mg PO DAILY 03/26/24 Unknown History gabapentin 300 mg capsule 300 mg PO TID 30 days #90 caps 03/26/24 Unknown Rx albuterol sulfate 90 mcg/actuation 2 puff inhalation Q4H PRN Wheezing 03/30/24 Unknown History aerosol inhaler (Ventolin HFA) benztropine 0.5 mg tablet 0.5 mg PO BID 03/30/24 Unknown History cariprazine 1.5 mg capsule 1.5 mg PO DAILY 03/30/24 Unknown History (Vraylar) calcium carbonate (Oyster Shell 500 mg PO DAILY 04/02/24 Unknown History Calcium) cholecalciferol (vitamin D3) 50 50 mcg PO DAILY 04/02/24 Unknown History mcg (2,000 unit) capsule Allergy/AdvReac Type Severity Reaction Status Date / Time Iodinated Contrast Media Allergy Rash Verified 04/02/24 08:35 (DYEE) propranolol Allergy unknown Verified 04/02/24 08:35 iron AdvReac Other Verified 04/02/24 08:35 morphine AdvReac Rash Verified 04/02/24 08:35 ondansetron (From Zofran) AdvReac Other Verified 04/02/24 08:35 Family History Mother Stomach cancer Anemia Arthritis MEN, type 1 Father Pneumonia Anxiety Arthritis Depression Surgical History History of esophagogastroduodenoscopy (EGD) History of colonoscopy H/O right knee surgery History of hysterectomy History of parathyroidectomy History of cholecystectomy history of right collar bone surgery history of gastric sleeve Social History adopted: No household members: none housing: apartment current occupational status: disabled current occupation: disability history of recent travel: No sexually active: No Smoking Status: Never smoker Electronic Cigarette Use: not used alcohol intake: current alcohol intake frequency: holidays/special occasions only details: once or twice a year substance use type: does not use, former substance user and marijuana diet: low salt well-balanced diet: about half the time caffeine: Yes eating out: 4 or more times/week during the past year weight has: increased > 10 lbs what type of physical activity do you participate in: walking frequency: 1-2 times per week seatbelt use: always do you feel safe at home: Yes ROS ROS ED Review of Systems ROS Unobtainable: due to mental status Constitutional Constitutional ED: Denies chills, fever(s) or subjective Eyes Eyes: Denies blurry vision or change in vision ENT ENT ED: Reports other Details: Endorses dry mouth and thirst. ; Denies ear pain, rhinorrhea or sore throat Cardiovascular Cardiovascular: Denies chest pain or palpitations Respiratory/Chest Respiratory/Chest: Denies cough, dyspnea or dyspnea on exertion Gastrointestinal Gastrointestinal: Denies abdominal pain, diarrhea, nausea or vomiting Genitourinary Genitourinary ED: Reports dysuria and urinary frequency; Denies hematuria Musculoskeletal Musculoskeletal: Denies arthralgias, back pain or myalgias Integumentary Reports Abrasions and other Details: Abrasion right elbow due to fall on March 30. Abrasion left elbow due to fall today Neurologic Neurologic: Reports weakness; Denies headache(s) or paresthesias Psychiatric Psychiatric: Reports depression; Denies anxiety Hematologic/Lymphatic Hematologic/Lymphatic: Denies easy bleeding or easy bruising EXAM Physical Exam Const Vital Signs: 04/02/24 08:35 04/02/24 08:37 04/02/24 08:37 Temperature 98.9 F 98.9 F 98.9 F Temperature Source Oral Oral Pulse Rate 93 93 Respiratory Rate 18 18 Respiratory Effort Normal Respiratory Depth Normal Respiratory Pattern Normal Blood Pressure 134/97 H 134/97 H Blood Pressure Mean 109 109 Pulse Ox 94 96 Oxygen Delivery Method Room Air Room Air Room Air 04/02/24 09:54 04/02/24 10:00 04/02/24 11:01 Temperature 98.9 F 98.9 F 98.9 F Temperature Source Oral Oral Oral Pulse Rate 98 78 78 Respiratory Rate 18 16 16 Respiratory Effort Respiratory Depth Respiratory Pattern Blood Pressure 138/78 H 108/51 L 115/61 Blood Pressure Mean 98 70 79 Pulse Ox 98 98 97 Oxygen Delivery Method Room Air Room Air Room Air 04/02/24 12:00 04/02/24 13:00 Temperature 98 F 97.6 F L Temperature Source Oral Temporal Pulse Rate 89 78 Respiratory Rate 18 18 Respiratory Effort Respiratory Depth Respiratory Pattern Blood Pressure 113/62 117/89 H Blood Pressure Mean 79 98 Pulse Ox 98 98 Oxygen Delivery Method Room Air Room Air Vital signs noted. She is not febrile, hypoxic, tachypneic or tachycardic. She is not hemodynamically unstable. Positive well nourished and well developed Constitutional Narrative: BMI is 50.7. General Appearance ED: well developed and NAD HEENT Reports normocephalic and TM's normal bilaterally atraumatic; Negative for trauma, contusion, hematoma or tenderness Eyes PERRL and EOMs intact bilaterally Eyes Narrative: There is no subconjunctival hemorrhage. General Eye ED: Negative for pale conjunctiva or scleral icterus Neck full ROM, no lymphadenopathy and supple General: Negative for tenderness Chest Wall palpation of chest normal; Negative for inspection of chest normal Chest Narrative: Bruise noted left anterior chest inferior to the clavicle. There is no crepitus or subcutaneous air. Resp normal respiratory effort, no retractions and clear to auscultation bilaterally Effort and Inspection: Negative for pain with movement Cardio regular rate, regular rhythm, S1 normal heart sound, S2 normal heart sound and no murmurs GI non-tender, non-distended and no masses Back/Spine no CVA tenderness Neuro No oriented x3, CN's II-XII intact bilaterally, moves all extremities and no focal motor deficits Neuro Narrative: There is no clonus or Babinski sign noted right or left. There is no dysmetria. [place] Coma Scale: document GCS findings Spontaneous Obeys Commands Confused 14 Cranial Nerves: CN normal except as noted Psych Mood & Affect: depressed Skin Trauma: abrasion MDM MDM MDM Narrative Medical decision making narrative: In light of patient's most recent admission and history of UTI we will obtain Urine, CBC and electrolyte panel to assess white count, differential H&H as well as platelet count. BMP to assess renal function and glucose. Because of concern for infection lactate was obtained as well to assess for endorgan dysfunction. Because of the abnormal findings on auscultation of the lungs posteriorly was noted chest x-ray was obtained to evaluate for pneumonia. Since she was recently admitted for rhabdomyolysis also need to assess renal function and CPK was obtained. History & Record Review Additional record(s) reviewed:: Prior inpatient record, Prior ED visit and Prior labs Lab Data Attestation: I reviewed the patient's lab results. Lab results narrative: CBC is remarkable for microcytic anemia. Patient has history of microcytic anemia based on prior lab results. Hemoglobin is at the higher end of her range. Competence of metabolic panel is remarkable for a BUN/creatinine of 19 and 1.17 with an estimated GFR 51. AST and ALT elevated to 12 and 105 respectively. Hemoglobin is elevated compared to yesterday. This would represent dehydration. Patient's creatinine is slightly up from yesterday from 1.09-1.17. Transaminases were elevated on March 31. Labs: Laboratory Results - last 24 hr 04/02/24 04/02/24 04/02/24 09:22 10:08 13:50 WBC 8.0 RBC 4.36 Hgb 10.4 L Hct 33.9 L MCV 77.8 L MCH 23.9 L MCHC 30.7 L RDW Std Deviation 59.7 H RDW Coeff of Teena 22.7 H Plt Count 248 MPV 9.8 Immature Gran % (Auto) 0.700 Neut % (Auto) 68.4 Lymph % (Auto) 14.4 L [place] % (Auto) 8.8 Eos % (Auto) 7.1 H Baso % (Auto) 0.6 Absolute Neuts (auto) 5.5 Absolute Lymphs (auto) 1.16 Nucleated RBC % 0 Differential Comment SCANNED Platelet Estimate ADEQUATE Anisocytosis 2+ Target Cells 1+ Sodium 137 Potassium 3.9 Chloride 110 H Carbon Dioxide 21.0 Anion Gap 6 BUN 19 H Creatinine 1.17 H Estim Creat Clear Calc 80.16 Est GFR (MDRD) Af Amer 61 Est GFR (MDRD) Non-Af 51 L BUN/Creatinine Ratio 16.2 Glucose 91 Lactic Acid 2.0 1.4 Calcium 9.3 Total Bilirubin 1.00 AST 212 H ALT 105 H Alkaline Phosphatase 116 Total Creatine Kinase 3351 H Total Protein 6.6 Albumin 2.9 L Globulin 3.7 Albumin/Globulin Ratio 0.8 L Urine Color Yellow Urine Clarity Clear Urine pH 6.0 Ur Specific [place] 1.020 Urine Protein 30 H Urine Glucose (UA) Normal Urine Ketones Negative Urine Occult Blood 25 H Urine Nitrite Negative Urine Bilirubin Negative Urine Urobilinogen Normal Ur Leukocyte Esterase 25 H Urine RBC 0-5 SEEN Urine WBC 0-5 SEEN Ur Squamous Epith Cells 0-5 SEEN Urine Bacteria 1+ Urine Mucus 0 SEEN Urine Opiates Screen POSITIVE H Urine Methadone Screen NEGATIVE Ur Barbiturates Screen NEGATIVE Ur Phencyclidine Scrn NEGATIVE Ur Amphetamines Screen NEGATIVE MDMA (Ecstasy) Screen POSITIVE H U Benzodiazepines Scrn POSITIVE H Urine Cocaine Screen NEGATIVE U Cannabinoids Screen NEGATIVE Ur Drug Screen Comment Urinalysis reveals bacteriuria without pyuria. Macro was positive for occult blood, 25 and leukoesterase 25. Nitrites was negative. Talk screen is positive for opiates, MDMA and benzodiazepine. Review of her med list was undertaken and there is no medication that she is presently taking that would cause a false positive MDMA results. Radiography Chest X-Ray - ED: 2 View, Read by ED Physician (Interpreted by me at 0948), Unchanged, Normal, Heart, Lungs, Mediastinum, Bony Structures, No Acute Disease and - (Three-view x-ray of the elbow reveals no fracture, subluxation or dislocation. Furthermore there is no anterior posterior fat pad noted. This independent reviewed interpreted by me at 1029.) Diagnostic Testing: Clinical Impression(s) from Imaging Studies Chest X-Ray 04/02/24 09:30 IMPRESSION: No radiographic evidence of acute cardiopulmonary disease. Electronically Signed: Neno Peace MD at 11:20 EST , Elbow X-Ray 04/02/24 10:15 IMPRESSION: No evidence of acute fracture. Electronically Signed: Neno Peace MD at 11:21 EST , Treatment and Re-Evaluation Narrative: Patient and son were informed of results. Patient informed that she has a prescription for Adderall. This would give the false positive amphetamine test. Patient was able to ambulate without assistance. She was discharged to home. Patient is at baseline. Discharge Plan Triage Chief Complaint: Fall ED Provider: Galdnio Camacho Dx/Rx/DC Orders Clinical Impression: Disoriented to time, Hyperlipidemia, Anemia, Injury due to fall, Contusion of left elbow, initial encounter, Abrasion of forearm, left, Acute on chronic alteration in mental status, Adult BMI 50.0-59.9 kg/sq m, Renal insufficiency, Fatty liver Instructions: ED Abrasion, ED ALOC, ED Contusion, Elbow Prescriptions: No Action calcitriol 0.25 mcg capsule 0.75 mcg PO DAILY Qty: 270 3RF levothyroxine 100 mcg tablet 100 mcg PO DAILY Qty: 90 3RF (DME) compr.stocking,thigh,reg,x-lrg Misc See Rx Instructions .Route Qty: 12 0RF Rx Instructions: As directed Trintellix 20 mg tablet 20 mg PO DAILY Qty: 90 1RF bupropion HCl 300 mg tablet extended release 24 hr See Rx Instructions .ROUTE .COMPLEX Qty: 90 2RF Dose Instruction: take 1 tablet by mouth once daily for MOOD Rx Instructions: take 1 tablet by mouth once daily for MOOD alprazolam 0.5 mg tablet 0.5 mg PO BID PRN (Reason: anxiety) Qty: 60 3RF cyanocobalamin (vitamin B-12) 500 MCG tablet 1,000 mcg PO DAILY@0800 cholecalciferol (vitamin D3) 50 mcg (2,000 unit) capsule 50 mcg PO DAILY calcium carbonate [Oyster Shell Calcium] 500 mg calcium (1,250 mg) tablet 500 mg PO DAILY fluticasone propionate [Allergy Relief (fluticasone)] 50 mcg/actuation spray,suspension 1 spray intranasal BID Qty: 16 0RF Rx Instructions: administer into each nostril potassium chloride 20 mEq tablet extended release 20 meq PO DAILY furosemide 20 mg tablet 20 mg PO DAILY gabapentin 300 mg capsule 300 mg PO TID 30 Days Qty: 90 0RF Vraylar 1.5 mg capsule 1.5 mg PO DAILY benztropine 0.5 mg tablet 0.5 mg PO BID albuterol sulfate [Ventolin HFA] 90 mcg/actuation HFA aerosol inhaler 2 puff inhalation Q4H PRN (Reason: Wheezing) atorvastatin 20 mg tablet 20 mg PO DAILY Qty: 90 0RF albuterol sulfate 2.5 mg /3 mL (0.083 %) solution for nebulization 2.5 mg inhalation Q6H PRN (Reason: shortness of breath or wheezing) Qty: 75 0RF Patient Comments: pt states she doesnt use but is supposed to. (DME) nebulizer and compressor Device See Rx Instructions .Route Qty: 1 0RF Rx Instructions: As directed pantoprazole [Protonix] 20 mg tablet,delayed release (DR/EC) 20 mg PO DAILY Qty: 90 0RF Primary Care Provider: Alondra Davies Referrals: Alondra Davies MD [Primary Care Provider] - As Needed Print Language: Spanish Disposition Disposition: Home, Self Care
[2024-04-02 09:54] LABS: ALB/GLOB Ratio 0.8 RATIO (0.9-2.4); AST(SGOT) 212 U/L (15-37); Alanine Aminotransfer ALT/SGPT 105 U/L (13-56); Albumin, Serum 2.9 g/dL (3.2-5.0); Alkaline Phosphatase 116 U/L (45-117); Anion Gap 6 (5-15); BUN 19 mg/dL (7-18); BUN/Creat Ratio 16.2 RATIO (10-20); Calcium,Total 9.3 mg/dL (8.5-10.1); Chloride 110 mmol/L (98-107); Creatinine, Serum 1.17 mg/dL (0.55-1.02); EST Glomerular Filtration Rate 51 mL/min (>60); Est Glom Filt Rate - Afr Amer 61 mL/min (>60); Estimated Creatinine Clearance 80.16 ml/min; Globulin 3.7 g/dL (2.2-4.2); Glucose 91 mg/dL (74-106); Potassium 3.9 mmol/L (3.5-5.1); Protein, Total 6.6 g/dL (6.4-8.2); Sodium Level 137 mmol/L (136-145)
[2024-04-02] MEDS: 0.9% Normal Saline (1000mL) 1,000 ML 1000 ML IV (10:00)
[2024-04-02 10:14] LABS: Anisocytosis 2+; Differential Comment SCANNED; Platelet Estimate ADEQUATE (ADEQ); Target Cells 1+
--- NOTE | 2024-04-02 10:15 | RAD_ITS ---
INDICATION: Blunt trauma, pain and swelling EXAMINATION/TECHNIQUE: X-RAY - LEFT XR Elbow Min 3 Views COMPARISON: No relevant prior comparison study available FINDINGS: SOFT TISSUES: No soft tissue swelling or gas. No radiopaque foreign body. BONES/JOINTS: There is no displacement of the anterior or posterior fat pads. No acute fracture or subluxation. Tiny degenerative spur of the olecranon process. Preservation of the joint space. No sclerotic or destructive changes observed. RAD/Elbow min 3 Views IMPRESSION: No evidence of acute fracture. Electronically Signed: Neno Peace MD at 11:21 EST ,
[2024-04-02 10:18] LABS: Mucous, Urine 0 SEEN /hpf (<or=2+)
[2024-04-02 10:19] LABS: Color, Urine Yellow (Yellow); Glucose, Dipstick Normal (Normal); Ketone-Dipstick Negative (Negative); Leukocyte Esterase-Dipstick 25 /ul (Negative); Nitrite-Dipstick Negative (Negative); Occult Blood-Urine 25 /ul (Negative); Protein-Dipstick 30 mg/dl (Negative); Urine Bilirubin Dipstick Negative (Negative); Urine Clarity Clear (Clear); Urine Urobilinogen Normal (Normal)
[2024-04-02 10:28] LABS: Bacteria 1+ /hpf (None Seen); Red Blood Cells-Urine 0-5 SEEN /hpf (0-5); Squamous Epithelial Cells - UA 0-5 SEEN /hpf (5-10); White Blood Cells 0-5 SEEN /hpf (0-5)
[2024-04-02 10:39] LABS: CPK Total, Creatine Kinase 3351 U/L (26-192)
[2024-04-02 11:27] LABS: Amphetamine Urine NEGATIVE (<1000 ng/mL); Barbiturate Urine VISTA NEGATIVE (< 200 ng/mL); Benzodiazepine Urine VISTA POSITIVE (< 200 ng/mL); Cocaine Urine VISTA NEGATIVE (< 300 ng/mL); Ecstacy Urine VISTA POSITIVE (< 500 ng/mL); Methadone Urine VISTA NEGATIVE (< 300 ng/mL); PCP Urine VISTA NEGATIVE (< 25 ng/mL); THC Urine VISTA NEGATIVE (< 50 ng/mL); Vista UDS pH Range 5
[2024-04-02 13:26] LABS: Reflex Lactate? Y
[2024-04-02 14:31] LABS: Lactic Acid 1.4 mmol/L (0.4-1.9)
== END 2024-04-02 15:27 | disposition home or self-care (01) ==
PROVIDERS: Emergency Provider Emergency Medicine; PCP Internal Medicine; Visit Provider Emergency Medicine
DX: R41.0 Disorientation, unspecified (principal); S50.02XA Contusion of left elbow, initial encounter; K76.0 Fatty (change of) liver, not elsewhere classified; E78.00 Pure hypercholesterolemia, unspecified; N28.9 Disorder of kidney and ureter, unspecified; S50.812A Abrasion of left forearm, initial encounter; G47.33 Obstructive sleep apnea (adult) (pediatric); D64.9 Anemia, unspecified; Z79.51 Long term (current) use of inhaled steroids; Z79.899 Other long term (current) drug therapy; W19.XXXA Unspecified fall, initial encounter
CPT/HCPCS: 36415; 71046; 73080; 80053; 80307; 81001; 82550; 83605; 85025; 99285; P9612

== ENCOUNTER → 2024-04-07 | Outpatient (CLI) | payer MEDICARE, MEDICAID, SELFPAY ==
[2024-04-07 16:34] LABS: Absolute Lymphocyte Count 1.76 X10^3/uL (0.83-4.51); Absolute Neutrophil Count 4.2 X10^3/uL (2.0-7.7); Basophil# 0.04 X10^3/uL; Basophil% 0.6 % (0-1); Eosinophil# 0.38 X10^3/uL; Eosinophils% 5.3 % (0-5); Hematocrit 36.6 % (37-47); Hemoglobin 11.5 g/dL (12.0-15.0); Lymphocyte # 1.76 X10^3/ul (0.83-4.51); Lymphocyte % 24.5 % (19-41); Mean Corp Hgb Conc 31.4 g/dL (32-36); Mean Corpuscular Volume 76.3 fL (81-99); Mean Platelet Vol. 9.7 fl (6.2-12.0); Monocyte# 0.78 X10^3/uL; Monocyte% 10.9 % (0-10); NRBC Flagged by Analyzer 0 % (0-5); Neutrophil # 4.18 X10^3/uL (2.7-7.7); Neutrophil % 58.3 % (47-70); POSITIVE MORPHOLOGY YES; Platelet Count 441 K/mm3 (150-450); RBC Distribution Width CV 23.4 % (11.6-14.6); RBC Distribution Width SD 61.8 fl (35.1-43.9); White Blood Count 7.2 K/mm3 (4.4-11.0)
[2024-04-07 16:56] LABS: ALB/GLOB Ratio 0.9 RATIO (0.9-2.4); AST(SGOT) 40 U/L (15-37); Alanine Aminotransfer ALT/SGPT 54 U/L (13-56); Albumin, Serum 3.3 g/dL (3.2-5.0); Alkaline Phosphatase 110 U/L (45-117); Anion Gap 8 (5-15); BUN 13 mg/dL (7-18); BUN/Creat Ratio 11.4 RATIO (10-20); CPK Total, Creatine Kinase 202 U/L (26-192); Calcium,Total 9.8 mg/dL (8.5-10.1); Chloride 101 mmol/L (98-107); Creatinine, Serum 1.14 mg/dL (0.55-1.02); EST Glomerular Filtration Rate 52 mL/min (>60); Est Glom Filt Rate - Afr Amer 63 mL/min (>60); Globulin 3.8 g/dL (2.2-4.2); Glucose 98 mg/dL (74-106); Iron 27 ug/dL (50-170); Magnesium 2.1 mg/dL (1.6-2.6); Potassium 3.1 mmol/L (3.5-5.1); Protein, Total 7.1 g/dL (6.4-8.2); Sodium Level 139 mmol/L (136-145)
[2024-04-07 16:57] LABS: Differential Indicated SCAN CRITERIA MET
[2024-04-07 18:18] LABS: Differential Comment SCANNED; Platelet Estimate ADEQUATE (ADEQ)
[2024-04-07 18:19] LABS: Anisocytosis 1+; Hypochromasia 1+; Target Cells RARE
== END | disposition home or self-care (01) ==
LOC: BIMLAB 15:07
PROVIDERS: PCP Internal Medicine; Referring Provider Physician Assistant; Visit Provider Physician Assistant
DX: E87.6 Hypokalemia (principal); E03.9 Hypothyroidism, unspecified; D64.9 Anemia, unspecified; M62.82 Rhabdomyolysis
CPT/HCPCS: 36415; 80053; 82550; 83540; 83735; 84443; 85025

== ENCOUNTER → 2024-05-05 | Outpatient (CLI) | payer MEDICARE, MEDICAID, SELFPAY ==
--- NOTE | 2024-05-05 13:21 | MRI_ITS ---
PROCEDURE: BRAIN WITHOUT CONTRAST REASON FOR EXAM: Altered mental status TECHNIQUE: Multiplanar, multisequence MRI of the brain without intravenous gadolinium-based contrast. COMPARISON: Head CT 03/30/2024 FINDINGS: Motion artifact sagittal T1 FLAIR. No intracranial hemorrhage, mass effect or acute infarct. No abnormal parenchymal signal intensity. Ventricles are within limits and midline. Major intracranial flow voids appear within limits. Mild volume loss, atrophy. Empty appearing sella. Moderate to marked appearing circumferential mucoperiosteal thickening left maxillary sinus with apparent antral window. Possible tiny air-fluid level. Opacified upper anterior left ethmoid air cell again noted. Mastoids and internal auditory canals appear within limits. MRI/Brain without Contrast IMPRESSION: No evidence of acute intracranial process as above. Paranasal sinus disease as above. Reading Location: [id number]
== END | disposition home or self-care (01) ==
LOC: MRI 13:05
PROVIDERS: PCP Internal Medicine; Referring Provider Physician Assistant; Visit Provider Physician Assistant
DX: R41.82 Altered mental status, unspecified (principal)
CPT/HCPCS: 70551

== ENCOUNTER 2024-05-16 12:23 | Observation (INO) | payer MEDICARE, MEDICAID, SELFPAY ==
[2024-05-16] VITALS (8 sets, daily range): BP systolic 93–135; BP diastolic 61–81; PULSE 80–98; RESP 18–26; TEMP 36.4–37.3; O2SAT 92–97; BMI 44.1; BMI 43.4
--- NOTE | 2024-05-16 12:45 | EKG12_ITS ---
Test Reason : DIZZINESS Blood Pressure : */* mmHG Vent. Rate : 81 BPM Atrial Rate : 81 BPM P-R Int : 192 ms QRS Dur : 112 ms QT Int : 430 ms P-R-T Axes : 30 -37 14 degrees QTcB Int : 499 ms Sinus rhythm with Premature supraventricular complexes Left axis deviation Moderate voltage criteria for LVH, may be normal variant ( R in aVL , [employer] product ) Prolonged QT Abnormal ECG Confirmed by NORMA COURTNEY, ROSENDO ([id number]), marketing editor ELISE CUEVAS ([id number]) on 05/22/2024 11:17:45 AM Referred By: Confirmed By: ROSENDO GREEN MD
[2024-05-16 13:02] LABS: Absolute Lymphocyte Count 1.42 X10^3/uL (0.83-4.51); Absolute Neutrophil Count 3.5 X10^3/uL (2.0-7.7); Basophil# 0.03 X10^3/uL; Basophil% 0.5 % (0-1); Eosinophil# 0.28 X10^3/uL; Eosinophils% 4.9 % (0-5); Hematocrit 39.9 % (37-47); Hemoglobin 12.7 g/dL (12.0-15.0); Lymphocyte # 1.42 X10^3/ul (0.83-4.51); Lymphocyte % 24.6 % (19-41); Mean Corp Hgb Conc 31.8 g/dL (32-36); Mean Corpuscular Hgb 24.5 pg (27.0-32.0); Mean Platelet Vol. 10.3 fl (6.2-12.0); Monocyte# 0.51 X10^3/uL; Monocyte% 8.8 % (0-10); NRBC Flagged by Analyzer 0 % (0-5); Neutrophil # 3.53 X10^3/uL (2.7-7.7); Neutrophil % 61.2 % (47-70); Platelet Count 387 K/mm3 (150-450); RBC Distribution Width CV 19.4 % (11.6-14.6); RBC Distribution Width SD 52.1 fl (35.1-43.9); Red Blood Count 5.18 M/mm3 (4.2-5.4); White Blood Count 5.8 K/mm3 (4.4-11.0)
[2024-05-16] MEDS: 0.9% Normal Saline (1000mL) 1,000 ML 999 ML IV ×2 (13:06→14:40)
[2024-05-16] MEDS: Meclizine 12.5 MG Tablet PO (13:06)
--- NOTE | 2024-05-16 13:23 | EX.ED.DYSGE1 ---
HPI History of Present Illness Chief Complaint: Dizziness Narrative Narrative: Patient is a 59-year-old female with a past medical history anxiety, depression, vertigo, hypertension, gout, chronic kidney disease, hypothyroidism, BASIL, migraines, M EN 1, IBS who presented to the emergency department with a chief complaint of generalized weakness and I am concerned that my calcium and potassium are low. Patient states this been going on for 2 to 3 weeks now and has been progressively worsening prompting her to come here for the valuation management. States that she did not follow-up with her doctor in outpatient setting on this. Patient states that when she walks anywhere by the time she gets there she feels very fatigued. In the triage note is noted that she is complaining of dizziness however she states that this is a chronic issue and this feels like her vertigo. [facility] Medical History Anxiety disorder, unspecified Major depressive disorder, recurrent severe without psychotic features Cough Allergic conjunctivitis Allergic dermatitis of eyelids of both eyes Post-menopausal Wears contact lenses Wears glasses Wears dentures Vertigo History of renal disease High cholesterol Easy bruising History of IBS Gastric reflux Non-smoker Shortness of breath on exertion Leg cramps History of edema Hypertension Gout Exocrine pancreatic insufficiency Chronic diarrhea Stage III chronic kidney disease Obesity Post-surgical hypoparathyroidism Hypothyroidism (acquired) History of blood transfusion Obstructive sleep apnea Multiple endocrine neoplasia (MEN) type I Migraine Multiple endocrine neoplasia type 1 (MEN1) Insomnia Anxiety Edema Allergic rhinitis ADHD Vitamin D deficiency Depression Hypothyroidism Restless leg syndrome Post traumatic stress disorder GERD (gastroesophageal reflux disease) Irritable bowel syndrome Anemia Chronic kidney disease, stage 3 Sleep apnea Osteoarthritis of right knee Difficulty balancing Knee pain Fatigue Anemia Kidney disease Arthritis history of left foot fracture History of kidney stones Ureteral calculus Home Medications ?Medication ?Instructions ?Recorded ?Last Taken ?Type cyanocobalamin (vitamin B-12) 500 1,000 mcg PO DAILY@0800 Supplement 09/16/17 07/15/18 History mcg tablet fluticasone propionate 50 1 spray intranasal BID #16 grams 09/03/23 Unknown Rx mcg/actuation nasal spray,suspension (Allergy Relief (fluticasone)) albuterol sulfate 2.5 mg/3 mL 2.5 mg (3 mL) inhalation Q6H PRN 09/05/23 Unknown Rx (0.083 %) solution for nebulization shortness of breath or wheezing #75 mL nebulizer and compressor #1 ea 09/05/23 Unknown Rx compr.stocking,thigh,reg,x-lrg #12 ea 09/14/23 Unknown Rx potassium chloride 20 mEq 20 meq PO DAILY 11/01/23 Unknown History tablet,extended release pantoprazole 20 mg tablet,delayed 20 mg PO DAILY #90 tabs 11/22/23 Unknown Rx release (Protonix) calcitriol 0.25 mcg capsule 0.75 mcg (3 x 0.25 mcg) PO DAILY 12/24/23 Unknown Rx #270 caps levothyroxine 100 mcg tablet 100 mcg PO DAILY thyroid #90 tabs 12/24/23 Unknown Rx furosemide 20 mg tablet 20 mg PO DAILY 03/26/24 Unknown History albuterol sulfate 90 mcg/actuation 2 puff inhalation Q4H PRN Wheezing 03/30/24 Unknown History aerosol inhaler (Ventolin HFA) cariprazine 1.5 mg capsule 1.5 mg PO DAILY 03/30/24 Unknown History (Vraylar) calcium carbonate (Oyster Shell 500 mg PO DAILY 04/02/24 Unknown History Calcium) cholecalciferol (vitamin D3) 50 50 mcg PO DAILY 04/02/24 Unknown History mcg (2,000 unit) capsule bupropion HCl 300 mg 24 hr tablet, See Rx Instructions .Route 05/08/24 Unknown Rx extended release .COMPLEX #90 tabs vortioxetine 20 mg tablet 20 mg PO DAILY #90 tabs 05/08/24 Unknown Rx (Trintellix) amoxicillin 875 mg-potassium 1 tab PO Q12H #20 tabs 05/11/24 Unknown Rx clavulanate 125 mg tablet Allergy/AdvReac Type Severity Reaction Status Date / Time Iodinated Contrast Media Allergy Rash Verified 05/16/24 12:28 (DYEE) propranolol Allergy unknown Verified 05/16/24 12:28 iron AdvReac Other Verified 05/16/24 12:28 morphine AdvReac Rash Verified 05/16/24 12:28 ondansetron (From Zofran) AdvReac Other Verified 05/16/24 12:28 Family History Mother Stomach cancer Anemia Arthritis MEN, type 1 Father Pneumonia Anxiety Arthritis Depression Surgical History History of esophagogastroduodenoscopy (EGD) History of colonoscopy H/O right knee surgery History of hysterectomy History of parathyroidectomy History of cholecystectomy history of right collar bone surgery history of gastric sleeve Social History adopted: No household members: none housing: apartment current occupational status: disabled current occupation: disability history of recent travel: No sexually active: No Smoking Status: Never smoker Electronic Cigarette Use: not used alcohol intake: current alcohol intake frequency: holidays/special occasions only details: once or twice a year substance use type: does not use, former substance user and marijuana diet: low salt well-balanced diet: about half the time caffeine: Yes eating out: 4 or more times/week during the past year weight has: increased > 10 lbs what type of physical activity do you participate in: walking frequency: 1-2 times per week seatbelt use: always do you feel safe at home: Yes ROS ROS ED ROS Narrative Constitutional: Denies any fevers, chills, headaches Eyes: Denies change in vision double vision blurry vision Cardiovascular: Denies chest pain or palpitations Respiratory: Complains of mild shortness of breath denies coughing Abdomen: Denies abdominal pain nausea vomit diarrhea : Denies any urinary symptoms Neurological: Complains of generalized weakness denies numbness or tingling Musculoskeletal: Denies back pain Skin: Denies rashes or lesions EXAM Physical Exam Narrative Exam Narrative: General: Patient was lying in bed rest comfortably did not appear to be in acute distress Head: Atraumatic, normocephalic Eyes: PERRL bilaterally, EOMI bilateral, no conjunctival injection noted Neck: Soft, supple, trachea midline Cardiovascular: Regular rate and rhythm no murmurs gallops rubs noted Respiratory: Clear to auscultation bilaterally Abdomen: Soft, nondistended, nontender to palpation Extremities: +5/5 strength noted in the bilateral upper and lower extremities, radial pulses +2/4 in the bilateral extremities, no pedal edema on exam Neurological: Patient follow commands as she was at [facility] year is 2024. NIH of 0 GCS 15 Skin: Warm, dry, intact no rashes or lesions noted Const Vital Signs: 03/11/25 12:24 05/16/24 13:23 05/16/24 14:00 Temperature 99.1 F Temperature Source Oral Pulse Rate 98 80 84 Respiratory Rate 26 H 19 H 20 H Blood Pressure 135/71 H 109/68 Blood Pressure Mean 92 81 Pulse Ox 97 92 94 Oxygen Delivery Method Room Air Room Air Room Air MDM MDM MDM Narrative Medical decision making narrative: Patient is a 59-year-old female who presents to the emergency department with a chief complaint of generalized weakness and concern for hypokalemia and hypocalcemia. On the differential diagnose includes but not limited to electrolyte abnormality, ACS, posterior circulation stroke although have low suspicion for this as she states that her dizziness feels like her vertigo and is not new for her. Once workup is obtained reviewed she will be reevaluated. Patient be given meclizine. Patient's CBC was reviewed showed no evidence leukocytosis white blood count normal at 5.8, hemoglobin 12.7, plate count was noted be 387. Patient sodium was 137, potassium was low indicating hypokalemia at 2.5 she was given 40 mill equivalents of oral supplementation and will be given 40 mill equivalents intravenously magnesium will be checked. Patient's creatinine was elevated 1.83 indicating acute kidney injury her baseline is roughly around 1.1. Patient's calcium was elevated at 13.6 indicating hypercalcemia ionized calcium elevated 1.75. Patient was given 2 L of IV fluids. Patient's AST and ALT were 90 and 72 respectively. Patient TSH normal at 0.66, free T4 and T3 were 1.4 and 2.9 respectively. Patient's urinalysis showed no evidence of infection. Patient's chest x-ray reviewed and showed no visible acute cardiopulmonary findings. Patient's EKG reviewed showed sinus rhythm with a rate of 81 bpm UT interval 192. QTc of 499. At this point time patient's case will be discussed with hospitalist for her hypercalcemia, hypokalemia and generalized weakness. Discussed case with hospitalist Dr. Lopez who accept patient for admission. Notified the patient and she is agreeable to plan all course concerns answered. Lab Data Labs: Laboratory Results - last 24 hr 05/16/24 05/16/24 05/16/24 12:51 13:07 13:58 WBC 5.8 RBC 5.18 Hgb 12.7 Hct 39.9 MCV 77.0 L MCH 24.5 L MCHC 31.8 L RDW Std Deviation 52.1 H RDW Coeff of Teena 19.4 H Plt Count 387 MPV 10.3 Immature Gran % (Auto) 0.000 Neut % (Auto) 61.2 Lymph % (Auto) 24.6 [place] % (Auto) 8.8 Eos % (Auto) 4.9 Baso % (Auto) 0.5 Absolute Neuts (auto) 3.5 Absolute Lymphs (auto) 1.42 Nucleated RBC % 0 Sodium 137 Potassium 2.5 L* Chloride 93 L Carbon Dioxide 32.0 Anion Gap 12 BUN 13 Creatinine 1.83 H Estim Creat Clear Calc 46.61 L Est GFR (MDRD) Non-Af 32 L BUN/Creatinine Ratio 7.2 L Glucose 124 H Calcium 13.6 H* Ionized Calcium 1.75 H Total Bilirubin 0.63 AST 90 H ALT 72 H Alkaline Phosphatase 203 H Total Protein 7.0 Albumin 3.8 Globulin 3.2 Albumin/Globulin Ratio 1.2 TSH 0.661 Free T4 1.40 Free T3 pg/dL 2.9 Urine Color Yellow Urine Clarity Sl. Cloudy Urine pH 7.0 Ur Specific Point Clear 1.015 Urine Protein 15 H Urine Glucose (UA) Normal Urine Ketones Negative Urine Occult Blood Negative Urine Nitrite Negative Urine Bilirubin Negative Urine Urobilinogen Normal Ur Leukocyte Esterase 25 H Urine RBC 0-5 SEEN Urine WBC 0-5 SEEN Ur Squamous Epith Cells 0-5 SEEN Urine Bacteria 1+ Urine Mucus RARE Radiography Diagnostic Testing: Clinical Impression(s) from Imaging Studies Chest X-Ray 05/16/24 13:30 IMPRESSION: 1. No visible acute cardiopulmonary findings 2. Additional description as above. Reading Location: [id number] Discharge Plan Triage Chief Complaint: Dizziness ED Provider: Benito Bourne Dx/Rx/DC Orders Clinical Impression: Hypokalemia, Hypercalcemia, Generalized weakness Prescriptions: No Action calcitriol 0.25 mcg capsule 0.75 mcg PO DAILY Qty: 270 3RF levothyroxine 100 mcg tablet 100 mcg PO DAILY Qty: 90 3RF (DME) compr.stocking,thigh,reg,x-lrg Misc See Rx Instructions .Route Qty: 12 0RF Rx Instructions: As directed bupropion HCl 300 mg tablet extended release 24 hr See Rx Instructions .ROUTE .COMPLEX Qty: 90 2RF Dose Instruction: take 1 tablet by mouth once daily for MOOD Rx Instructions: take 1 tablet by mouth once daily for MOOD Trintellix 20 mg tablet 20 mg PO DAILY Qty: 90 1RF cyanocobalamin (vitamin B-12) 500 MCG tablet 1,000 mcg PO DAILY@0800 cholecalciferol (vitamin D3) 50 mcg (2,000 unit) capsule 50 mcg PO DAILY calcium carbonate [Oyster Shell Calcium] 500 mg calcium (1,250 mg) tablet 500 mg PO DAILY fluticasone propionate [Allergy Relief (fluticasone)] 50 mcg/actuation spray,suspension 1 spray intranasal BID Qty: 16 0RF Rx Instructions: administer into each nostril potassium chloride 20 mEq tablet extended release 20 meq PO DAILY furosemide 20 mg tablet 20 mg PO DAILY Vraylar 1.5 mg capsule 1.5 mg PO DAILY albuterol sulfate [Ventolin HFA] 90 mcg/actuation HFA aerosol inhaler 2 puff inhalation Q4H PRN (Reason: Wheezing) albuterol sulfate 2.5 mg /3 mL (0.083 %) solution for nebulization 2.5 mg inhalation Q6H PRN (Reason: shortness of breath or wheezing) Qty: 75 0RF Patient Comments: pt states she doesnt use but is supposed to. (DME) nebulizer and compressor Device See Rx Instructions .Route Qty: 1 0RF Rx Instructions: As directed pantoprazole [Protonix] 20 mg tablet,delayed release (DR/EC) 20 mg PO DAILY Qty: 90 0RF amoxicillin-pot clavulanate 875-125 mg tablet 1 tab PO Q12H Qty: 20 0RF Primary Care Provider: Alondra Davies Referrals: Alondra Davies MD [Primary Care Provider] - Print Language: Faroese Disposition Disposition: Acute Care Hospital [facility]
--- NOTE | 2024-05-16 13:30 | RAD_ITS ---
PROCEDURE: CHEST PA AND LATERAL (RADCXR), 05/16/2024 REASON FOR EXAM: SOB TECHNIQUE: PA and lateral views of the chest were obtained. COMPARISON: 04/02/2024 FINDINGS: Heart: Unremarkable. Mediastinum: Mild atherosclerosis in the aortic arch. Lungs/pleura: Similar slight elevation of the right hemidiaphragm. No focal consolidation. No sizeable pleural effusion or visible pneumothorax. Bones: Mild cervicothoracic and thoracolumbar. Multilevel spondylosis. Mild exaggerated kyphosis centered at the thoracolumbar junction. Other: Surgical clips project over the epigastrium and right upper quadrant. Similar presumed surgical clip near the thoracic inlet on the right on the AP view. RAD/Chest PA and Lateral IMPRESSION: 1. No visible acute cardiopulmonary findings 2. Additional description as above. Reading Location: [id number]
[2024-05-16 13:32] LABS: Ionized Calcium 1.75 mmol/L (1.09-1.30)
[2024-05-16 13:33] LABS: Ionized Calcium Order TUBE ORDER
[2024-05-16 13:41] LABS: Free T3 2.9 pg/mL (2.18-3.98); Thyroid Stim Hormone (TSH) 0.661 uIU/mL (0.300-4.200)
[2024-05-16 13:50] LABS: ALB/GLOB Ratio 1.2 RATIO (0.9-2.4); AST(SGOT) 90 U/L (<=31); Alanine Aminotransfer ALT/SGPT 72 U/L (<=34); Albumin, Serum 3.8 g/dL (3.5-5.0); Alkaline Phosphatase 203 U/L (35-104); Anion Gap 12 (5-15); BUN 13 mg/dL (4-19); BUN/Creat Ratio 7.2 RATIO (10-20); Calcium,Total 13.6 mg/dL (7.6-11.0); Chloride 93 mmol/L (98-108); Creatinine, Serum 1.83 mg/dL (0.70-1.20); EST Glomerular Filtration Rate 32 (>60); Estimated Creatinine Clearance 46.61 ml/min (50-250); Globulin 3.2 g/dL (2.2-4.2); Glucose 124 mg/dL (70-99); Potassium 2.5 mmol/L (3.3-5.1); Sodium Level 137 mmol/L (133-145); Total Bilirubin 0.63 mg/dL (0.00-1.30)
[2024-05-16] MEDS: Potassium Chloride Oral Tablet 20 MEQ 40 MEQ PO (14:07)
[2024-05-16] MEDS: Potassium Chloride 10mEq/100mL 10 MEQ/100 ML IV.SOLN. 100 MEQ IV BOLUS ×4 (14:08→17:56)
[2024-05-16 14:09] LABS: Color, Urine Yellow (Yellow); Glucose, Dipstick Normal (Normal); Ketone-Dipstick Negative (Negative); Leukocyte Esterase-Dipstick 25 /ul (Negative); Nitrite-Dipstick Negative (Negative); Occult Blood-Urine Negative /ul (Negative); Protein-Dipstick 15 mg/dl (Negative); Specific Gravity, Urine 1.015 (1.002-1.030); Urine Bilirubin Dipstick Negative (Negative); Urine Clarity Sl. Cloudy (Clear); Urine Urobilinogen Normal (Normal)
[2024-05-16 14:22] LABS: Bacteria 1+ /hpf (None Seen); Red Blood Cells-Urine 0-5 SEEN /hpf (0-5); Squamous Epithelial Cells - UA 0-5 SEEN /hpf (5-10); White Blood Cells 0-5 SEEN /hpf (0-5)
[2024-05-16 14:23] LABS: Mucous, Urine RARE /hpf (<or=2+)
--- NOTE | 2024-05-16 15:23 | PCM.HP.STD ---
[facility] - General General Date of Admission: 05/16/24 Date of Service: 05/16/24 Chief Complaint: Dizziness/confusion HPI Narrative JACOBY ESCALERA, is a 59 F who presented to the emergency department at [facility] on 05/16/2024 with chief complaint of dizziness and confusion. She has been having ongoing issues with this for some time. She states her sister notices that periodically she is confused. She has had some intermittent abdominal pain and constipation. She feels generally weak with no focal changes. 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 She is on calcitriol 0.75 mg 3 tablets daily and vitamin D supplementation. Vital signs on presentation showed temperature 99.1, heart rate 98, blood pressure was 135/71, respiratory 26, and oxygen saturation was 97% on room air. CBC was unremarkable other than a chronic microcytosis but her hemoglobin is normal. Chemistry panel was markedly abnormal with hypokalemia having a potassium of 2.5, serum creatinine of 1.83 which is close to her baseline, calcium of 13.6 with a verified ionized calcium at 1.75, normal magnesium level and chronically elevated LFTs. Alk phos was mildly elevated at 203. TSH was normal, free T4 was normal, PTH was low appropriately at 4 vitamin D 25 was within normal limits. Vitamin D 125 is pending. Given appropriate suppression of her PTH I suspect this is calcitriol toxicity and I expect her vitamin D 125 to be elevated. Calcitriol will elevate her 1-25 level. I did discuss the case with Dr. Lombardo and she agrees with holding her calcitriol, aggressively hydrating her and following her calcium. She felt better after 12 hours of holding her medication her calcium should trend down. [facility] Medical History Anxiety disorder, unspecified Major depressive disorder, recurrent severe without psychotic features Cough Allergic conjunctivitis Allergic dermatitis of eyelids of both eyes Post-menopausal Wears contact lenses Wears glasses Wears dentures Vertigo History of renal disease High cholesterol Easy bruising History of IBS Gastric reflux Non-smoker Shortness of breath on exertion Leg cramps History of edema Hypertension Gout Exocrine pancreatic insufficiency Chronic diarrhea Stage III chronic kidney disease Obesity Post-surgical hypoparathyroidism Hypothyroidism (acquired) History of blood transfusion Obstructive sleep apnea Multiple endocrine neoplasia (MEN) type I Migraine Multiple endocrine neoplasia type 1 (MEN1) Insomnia Anxiety Edema Allergic rhinitis ADHD Vitamin D deficiency Depression Hypothyroidism Restless leg syndrome Post traumatic stress disorder GERD (gastroesophageal reflux disease) Irritable bowel syndrome Anemia Chronic kidney disease, stage 3 Sleep apnea Osteoarthritis of right knee Difficulty balancing Knee pain Fatigue Anemia Kidney disease Arthritis history of left foot fracture History of kidney stones Ureteral calculus Home Medications ?Medication ?Instructions ?Recorded ?Last Taken ?Type cyanocobalamin (vitamin B-12) 500 1,000 mcg PO DAILY@0800 Supplement 09/16/17 05/15/24 History mcg tablet fluticasone propionate 50 1 spray intranasal BID NASAL 09/03/23 05/15/24 Rx mcg/actuation nasal CONGESTION #16 grams spray,suspension (Allergy Relief (fluticasone)) albuterol sulfate 2.5 mg/3 mL 2.5 mg (3 mL) inhalation Q6H PRN 09/05/23 Unknown Rx (0.083 %) solution for nebulization shortness of breath or wheezing #75 mL nebulizer and compressor #1 ea 09/05/23 Unknown Rx compr.stocking,thigh,reg,x-lrg #12 ea 09/14/23 Unknown Rx pantoprazole 20 mg tablet,delayed 20 mg PO DAILY HEARTBURN #90 tabs 11/22/23 05/15/24 Rx release (Protonix) calcitriol 0.25 mcg capsule 0.75 mcg (3 x 0.25 mcg) PO DAILY 12/24/23 05/15/24 Rx SUPPLEMENT #270 caps levothyroxine 100 mcg tablet 100 mcg PO DAILY thyroid #90 tabs 12/24/23 05/15/24 Rx furosemide 20 mg tablet 20 mg PO DAILY FLUID RETENTION 03/26/24 05/15/24 History albuterol sulfate 90 mcg/actuation 2 puff inhalation Q4H PRN Wheezing 03/30/24 Unknown History aerosol inhaler (Ventolin HFA) cariprazine 1.5 mg capsule 1.5 mg PO DAILY MOOD 03/30/24 05/15/24 History (Vraylar) calcium carbonate (Oyster Shell 500 mg PO DAILY SUPPLEMENT 04/02/24 05/15/24 History Calcium) cholecalciferol (vitamin D3) 50 50 mcg PO DAILY SUPPLEMENT 04/02/24 05/15/24 History mcg (2,000 unit) capsule vortioxetine 20 mg tablet 20 mg PO DAILY INSOMNIA #90 tabs 05/08/24 05/15/24 Rx (Trintellix) amoxicillin 875 mg-potassium 1 tab PO Q12H ANTIBIOTIC #20 tabs 05/11/24 05/15/24 Rx clavulanate 125 mg tablet alprazolam 0.5 mg tablet 0.5 mg PO BID PRN anxiety 05/16/24 05/15/24 History bupropion HCl 300 mg 24 hr tablet, 300 mg PO DAILY MOOD 05/16/24 05/15/24 History extended release potassium chloride 20 mEq 20 meq PO DAILY SUPPLEMENT #90 tabs 05/16/24 05/15/24 Rx tablet,extended release Allergy/AdvReac Type Severity Reaction Status Date / Time Iodinated Contrast Media Allergy Rash Verified 05/16/24 12:28 (DYEE) propranolol Allergy unknown Verified 05/16/24 12:28 iron AdvReac Other Verified 05/16/24 12:28 morphine AdvReac Rash Verified 05/16/24 12:28 ondansetron (From Zofran) AdvReac Other Verified 05/16/24 12:28 Family History Mother Stomach cancer Anemia Arthritis MEN, type 1 Father Pneumonia Anxiety Arthritis Depression Surgical History History of esophagogastroduodenoscopy (EGD) History of colonoscopy H/O right knee surgery History of hysterectomy History of parathyroidectomy History of cholecystectomy history of right collar bone surgery history of gastric sleeve Social History adopted: No household members: none housing: apartment current occupational status: disabled current occupation: disability history of recent travel: No sexually active: No Smoking Status: Never smoker Electronic Cigarette Use: not used alcohol intake: current alcohol intake frequency: holidays/special occasions only details: once or twice a year substance use type: does not use, former substance user and marijuana diet: low salt well-balanced diet: about half the time caffeine: Yes eating out: 4 or more times/week during the past year weight has: increased > 10 lbs what type of physical activity do you participate in: walking frequency: 1-2 times per week seatbelt use: always do you feel safe at home: Yes ROS Constitutional Constitutional: Reports fatigue and weakness; Denies anorexia, change in weight, chills, fever(s), malaise, night sweats or other Eyes Eyes: Denies blurry vision, change in eye color, change in vision, discharge from eye(s), double vision, erythema, eye pain, loss of vision or other ENT HEENT: Denies abnormal hearing, dysphagia, ear pain, epistaxis, headache(s), hearing loss, nasal congestion, nasal discharge, post nasal drip, sinus pressure, sore throat or other Cardiovascular Cardiovascular: Denies chest pain, claudication, dyspnea on exertion, edema, lightheadedness, orthopnea, palpitations, paroxysmal nocturnal dyspnea, rapid heart rate, syncope or other Respiratory/Chest Respiratory/Chest: Denies cough, dyspnea, excessive phlegm production, hemoptysis, productive cough, shortness of breath at rest, shortness of breath with exertion, wheezing or other Gastrointestinal Gastrointestinal: Reports constipation; Denies abdominal pain, coffee ground emesis, diarrhea, dyspepsia, hematemesis, hematochezia, loose stools, melena, nausea, vomiting or other Genitourinary Genitourinary: Reports urinary incontinence; Denies burning urination, difficulty urinating, dysuria, hematuria, nocturia, urinary frequency, urinary hesitancy, urinary urgency or other Musculoskeletal Musculoskeletal: Reports myalgias; Denies arthralgias, back pain, joint pain, joint stiffness, joint swelling, neck pain or other Neurologic Neurologic: Reports confusion and disequilibrium; Denies abnormal gait, abnormal speech, dizziness, focal weakness, headache(s), numbness, paresthesias, seizure-like activity, seizures, syncope, tingling, tremor(s) or other Psychiatric Psychiatric: Reports anxiety and depression; Denies homicidal ideation, suicidal ideation or other Endocrine Endocrinology: Denies change in body appearance, cold intolerance, excessive sweating, heat intolerance, polydipsia, polyuria or other Hematologic/Lymphatic Hematologic/Lymphatic: Denies anemia, easy bleeding, easy bruising, lymphadenopathy or other Allergic/Immunologic Allergic/Immunologic: Denies rhinitis, hives, eczemia, asthma or other Vital Signs Vital Signs Vital Signs: 05/16/24 12:24 05/16/24 13:23 05/16/24 14:00 Temperature 99.1 F Temperature Source Oral Pulse Rate 98 80 84 Respiratory Rate 26 H 19 H 20 H Blood Pressure 135/71 H 109/68 Blood Pressure Mean 92 81 Pulse Ox 97 92 94 Oxygen Delivery Method Room Air Room Air Room Air Weight Weight: 127.9 kg Body Mass Index (BMI) 44.1 Physical Exam Const alert, oriented x3, no apparent distress and well nourished; Negative for average body habitus or healthy appearing Constitutional Narrative: Morbidly obese, middle-aged, white female, lying in bed, appears comfortable, does not appear toxic, nursing at bedside General Appearance: cooperative HEENT normocephalic, head/scalp atraumatic, hearing grossly normal bilaterally and moist oral mucous membranes HEENT Narrative: Mallampati 3-4, no thrush chest Neck supple Neck Narrative: Neck is short thick, trachea midline Resp normal respiratory effort, no retractions, no use of accessory muscles and clear to auscultation bilaterally Auscultation: Negative for rales, rhonchi or wheezes Cardio regular rate, regular rhythm, S1 normal heart sound, S2 normal heart sound, no murmurs, no rub, no gallops and no clicks GI normal to inspection, nondistended, normoactive bowel sounds, soft to palpation and non-tender Extremity no clubbing, cyanosis or edema Extremity Narrative: 2+ pedal pulses, 2+ radial pulses Neuro oriented x3 and moves all extremities Neuro Narrative: Generalized weakness noted Speech: speech normal Psych affect normal Psych Narrative: very pleasant Results Lab / Micro Data 05/16/24 12:51 05/16/24 12:51 Labs: Laboratory Results - last 24 hr 05/16/24 12:51: WBC 5.8, RBC 5.18, Hgb 12.7, Hct 39.9, MCV 77.0 L, MCH 24.5 L, MCHC 31.8 L, RDW Std Deviation 52.1 H, RDW Coeff of Teena 19.4 H, Plt Count 387, MPV 10.3, Immature Gran % (Auto) 0.000, Neut % (Auto) 61.2, Lymph % (Auto) 24.6, [place] % (Auto) 8.8, Eos % (Auto) 4.9, Baso % (Auto) 0.5, Absolute Neuts (auto) 3.5, Absolute Lymphs (auto) 1.42, Nucleated RBC % 0, Sodium 137, Potassium 2.5 L*, Chloride 93 L, Carbon Dioxide 32.0, Anion Gap 12, BUN 13, Creatinine 1.83 H, Estim Creat Clear Calc 46.61 L, Est GFR (MDRD) Non-Af 32 L, BUN/Creatinine Ratio 7.2 L, Glucose 124 H, Calcium 13.6 H*, Total Bilirubin 0.63, AST 90 H, ALT 72 H, Alkaline Phosphatase 203 H, Total Protein 7.0, Albumin 3.8, Globulin 3.2, Albumin/Globulin Ratio 1.2, TSH 0.661, Free T4 1.40, Free T3 pg/dL 2.9 05/16/24 13:07: Ionized Calcium 1.75 H 05/16/24 13:58: Urine Color Yellow, Urine Clarity Sl. Cloudy, Urine pH 7.0, Ur Specific [place] 1.015, Urine Protein 15 H, Urine Glucose (UA) Normal, Urine Ketones Negative, Urine Occult Blood Negative, Urine Nitrite Negative, Urine Bilirubin Negative, Urine Urobilinogen Normal, Ur Leukocyte Esterase 25 H, Urine RBC 0-5 SEEN, Urine WBC 0-5 SEEN, Ur Squamous Epith Cells 0-5 SEEN, Urine Bacteria 1+, Urine Mucus RARE Imaging Radiology Impression Chest X-Ray 05/16/24 13:30 IMPRESSION: 1. No visible acute cardiopulmonary findings 2. Additional description as above. Reading Location: [facility] Assessment & Plan Assessment/Plan (1) Generalized weakness: (2) Hypercalcemia: (3) Hypokalemia: (4) MERON (acute kidney injury): (5) Transaminitis: PLAN: Plan Hypercalcemia -Highly suspect calcitriol toxicity -PTH is appropriately suppressed -Vitamin D 25 is normal -Vitamin D 1-25 is pending in highly suspect this will be abnormal -Hold calcitriol -hold calcium supplementation -Hold vitamin D supplementation -Aggressive IV fluids -serial ionized calcium is -Case was discussed with Dr. Lombardo and if vitamin D 1-25 is abnormal continue to hold calcitriol and will need an altered dose at discharge -Would discuss with Dr. Lombardo prior to discharge as she manages her outpatient medications MERON on CKD stage IIIa -Baseline serum creatinine seems to run between 1.1 and 1.4 -currently 1.83 -IV fluids -Repeat lab in a.m. Hypokalemia -Potassium replacement -Magnesium levels within normal limits -Will recheck in the morning Generalized weakness -PT/OT consultation -Highly suspect related hypercalcemia Mild transaminitis -This appears to be chronic not acute -Recommend outpatient workup for fatty liver given morbid obesity History of MEN type I -Has known pancreatic lesion-benign -Follows with Dr. Lombardo for endocrinology and follows at [facility] for pancreatic lesion Antibiotic use -Patient is to be on antibiotics with an end date documented -will continue Augmentin Hypothyroidism -Continue home levothyroxine -TSH within normal limits GERD -Continue home Protonix Depression/anxiety/insomnia -Continue home Xanax -Continue home Wellbutrin -Continue home follows with outpatient psych Vraylar -Continue home Trintelliz Morbid obesity -Recommend weight loss -BMI 43.4 -Complicates treatment, prognosis, outcomes DVT prophylaxis -Subcu heparin 3 times daily CODE STATUS Full code Charges/Coding Visit Charges Inpatient E&M: 17757 Init Hosp L2
--- NOTE | 2024-05-16 15:52 | CASEMGMT ---
Care Management Face to Face with patient for initial transition planning/care coordination assessment in the ED. This director underwriter sales introduced self and role at [facility]. Patient alert and oriented. Patient willing to participate in assessment and is able to answer all questions appropriately. Care providers, pharmacy, and demographics verified. Admitting Diagnosis: Generalized weakness, Hypercalcemia, Hypokalemia, MERON, Transaminitis Other diagnosis history: vertigo, hypertension, gout, chronic kidney disease, hypothyroidism, BASIL, migraines, M EN 1, IBS PCP: Alondra Davies Specialists: Dr. Lombardo, endocrinology. Dr. Sigala, surgeon [facility]. Dr. Terrell, [facility]. Reports going to a neurologist soon, but not knowing when this appointment is set up. Preferred Pharmacy: [facility] Insurance: [employer] Medicare (primary). Medicaid (secondary). Prescription Benefit: yes Living Will/HPOA: on file; sister, Yaneth (primary). brother in law, Carlito (secondary). Patient's mother (initially primary) has passed. LNOK: sister, Yaneth. Patient states having another sister who lives out of state that patient has drama with. 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 DME: cane, walker, shower bench, grab bars, elevated toilet seat (though states not using this) HHC: current with [facility] (OT and nurse weekly) SNF/Rehab: none Community Resources: none Behavioral Health History: depression and anxiety Patient goals: Patient wishes to discharge home, denies need for home health care at this time. Patient denies any further needs or concerns at this time. Disposition Plan: admission to acute; RN CM/SW to follow for discharge planning needs that may arise. Opal Kat, SOCIAL MEDIA ANALYST, TECHNICAL SPEC
[2024-05-16 16:25] LABS: PTHIN 4 pg/mL (11-61)
--- NOTE | 2024-05-16 16:31 | CM.ED ---
Social work Patient verified that patient's sister, Yaneth, is primary HCPOA and patient's [id number], Carlito, is secondary HCPOA. Patient's original HCPOA was patient's mother, Helene, who has since . Opal Kat, BIODIESEL PRODUCTION ASSOCIATE, RETAIL ATTENDANT
[2024-05-16] MEDS: 0.9% Normal Saline (1000mL) 1,000 ML 150 ML IV (17:55)
[2024-05-16] MEDS: Potassium Chloride Oral Tablet 20 MEQ 60 MEQ PO (17:55)
[2024-05-16 17:58] LABS: Magnesium 1.8 mg/dL (1.5-2.2)
[2024-05-16 18:15] LABS: Vitamin D,25 Hydroxy 38.2 ng/mL (30-100)
[2024-05-16] MEDS: Heparin Injection (Vial) 5,000 UNIT/ML VIAL 5000 UNIT SC (22:00)
[2024-05-16 22:59] LABS: Ionized Calcium Order 1.66
[2024-05-16] MEDS: Mag Hydrox/Al Hydrox/Simeth 30 ML UDC 15 ML PO (23:04)
[2024-05-16] MEDS: Amox/Clavulanate 875 MG Tablet PO (23:08)
[2024-05-17] VITALS (8 sets, daily range): BP systolic 100–122; BP diastolic 62–79; PULSE 73–84; RESP 16; TEMP 36.4–36.6; O2SAT 92–100; BMI 43.4
[2024-05-17] MEDS: 0.9% Normal Saline (1000mL) 1,000 ML 150 ML IV ×2 (00:52→07:55)
[2024-05-17 02:54] LABS: Ionized Calcium Order 1.63
[2024-05-17 06:24] LABS: Absolute Lymphocyte Count 2.63 X10^3/uL (0.83-4.51); Absolute Neutrophil Count 2.1 X10^3/uL (2.0-7.7); Basophil# 0.05 X10^3/uL; Basophil% 0.8 % (0-1); Eosinophil# 0.53 X10^3/uL; Hematocrit 33.7 % (37-47); Hemoglobin 10.6 g/dL (12.0-15.0); Lymphocyte # 2.63 X10^3/ul (0.83-4.51); Lymphocyte % 44.5 % (19-41); Mean Corp Hgb Conc 31.5 g/dL (32-36); Mean Corpuscular Hgb 24.3 pg (27.0-32.0); Mean Corpuscular Volume 77.3 fL (81-99); Monocyte# 0.61 X10^3/uL; Monocyte% 10.3 % (0-10); NRBC Flagged by Analyzer 0 % (0-5); Neutrophil # 2.08 X10^3/uL (2.7-7.7); Neutrophil % 35.2 % (47-70); Platelet Count 358 K/mm3 (150-450); RBC Distribution Width CV 19.1 % (11.6-14.6); RBC Distribution Width SD 53.2 fl (35.1-43.9); Red Blood Count 4.36 M/mm3 (4.2-5.4); White Blood Count 5.9 K/mm3 (4.4-11.0)
[2024-05-17] MEDS: Levothyroxine 100 MCG Tablet PO (06:25)
[2024-05-17] MEDS: Heparin Injection (Vial) 5,000 UNIT/ML VIAL 5000 UNIT SC ×3 (06:25→20:57)
[2024-05-17 06:45] LABS: Magnesium 1.8 mg/dL (1.5-2.2); Thyroid Stim Hormone (TSH) 0.697 uIU/mL (0.300-4.200)
[2024-05-17 06:47] LABS: ALB/GLOB Ratio 1.2 RATIO (0.9-2.4); AST(SGOT) 41 U/L (<=31); Alanine Aminotransfer ALT/SGPT 45 U/L (<=34); Alkaline Phosphatase 145 U/L (35-104); Anion Gap 9 (5-15); BUN 12 mg/dL (4-19); BUN/Creat Ratio 7.6 RATIO (10-20); Calcium,Total 11.5 mg/dL (7.6-11.0); Carbon Dioxide 28.3 mmol/L (21.0-32.0); Chloride 102 mmol/L (98-108); Creatinine, Serum 1.55 mg/dL (0.70-1.20); EST Glomerular Filtration Rate 39 (>60); Estimated Creatinine Clearance 54.51 ml/min (50-250); Globulin 2.5 g/dL (2.2-4.2); Glucose 83 mg/dL (70-99); Potassium 3.1 mmol/L (3.3-5.1); Protein, Total 5.6 g/dL (5.9-8.4); Sodium Level 139 mmol/L (133-145); Total Bilirubin 0.39 mg/dL (0.00-1.30)
[2024-05-17 07:17] LABS: Ionized Calcium Order ORDER TUBE
[2024-05-17 07:20] LABS: Ionized Calcium 1.59 mmol/L (1.09-1.30)
[2024-05-17 07:37] LABS: Ionized Calcium 1.66 mmol/L (1.09-1.30)
[2024-05-17 07:54] LABS: Ionized Calcium 1.63 mmol/L (1.09-1.30)
[2024-05-17] MEDS: buPROPion (XL) 300 MG TABLET.XL PO (09:20)
[2024-05-17] MEDS: Furosemide 20 MG Tablet PO (09:21)
[2024-05-17] MEDS: Amox/Clavulanate 875 MG Tablet PO ×2 (09:21→20:57)
[2024-05-17] MEDS: Potassium Chloride Oral Tablet 20 MEQ PO (09:21)
[2024-05-17] MEDS: Pantoprazole Sodium 20 MG Tablet PO (09:21)
[2024-05-17] MEDS: Cyanocobalamin 500 MCG Tablet 1000 MCG PO (09:21)
[2024-05-17] MEDS: Potassium Chloride Oral Tablet 20 MEQ 40 MEQ PO (09:22)
--- NOTE | 2024-05-17 09:42 | CASEMGMT ---
Addendum entered by Trish Fragoso 05/17/24 14:36: Per therapy, pt safe to discharge home alone. Addendum entered by Trish Fragoso 05/17/24 12:37: Call received back from Solomon @ [facility]. They are able to accept pt back. Pt receives SN and PT services. NEIL C order placed. dank Manning embalmer assistant, [facility]. Addendum entered by Trish Fragoso 05/17/24 12:21: RN ARLETTE received a message to call [facility]. Call placed to [facility] and was informed it was Paulina who called [facility] & this RN ARLETTE was put through to Paulina. No answer. VM left for her to return call back. Addendum entered by Trish Fragoso 05/17/24 11:26: MELIDA CHONG to room. Pt resting in bed, awake/alert/oriented x 3. RN CM introduced self and role. RN CM discussed discharge. Pt states she feels safe discharging home alone. Pt states she has been OOB w/use of walker and SBA and states she feels she is getting around well. She is aware she was not thinking clearly, but states now that her Ca+ is down, she is feeling much better and thinking clearer. She states she anticipates they will be adjusting her Calcitrol dosage. She also states she is aware her K+ was low and that they are replacing it. Discussed HHC and MELIDA CHONG inquired if she was able to recall what HHC she has currently. She states, Well, I thought I had [facility], but it's not them now. She states she does not remember the name of current C. RN ARLETTE mentioned [facility] to her and she stated she thinks that is it. She would like to resume with them, stating she is comfortable w/having them there, and declines wanting list of other HHC options. She states if [facility] unable to accept her back, her 1st preference for new referral would be [facility] and again declines wanting list of other C options to review. Pt states she does have 7 steps to go up to get into her apt, but states she is able to navigate those and her sister can help, if needed. Noted no therapy is ordered. RN ARLETTE spoke w/RNLatrice, who will ensure pt gets OOB and evaluate if PT/OT evals are needed or not. Pt states, if she is discharged home today, her sister can come pick her up after she gets off of work. 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 Call placed to Solomon @ [facility]. Discussed concerns from [facility] this AM re: pt's memory issues and returning home. He was made aware of hypercalcemia and hypokalemia and that these are being corrected. Also made aware pt is now A/O x3. He states he will check on this and call this MELIDA CHONG back re: if they are willing to accept pt back. Original Note: MELIDA CHONG note: [facility] called into [facility] this AM and informed receptionist secretary that pt is active w/[facility]. Message also received that [facility] does not feel pt is safe to discharge back home & SNF is recommended, stating pt has significant memory issues. Noted in SW assessment in ED, that pt stated she is active w/[facility]. See dank Manning embalmer assistant note 04/03/24, that [facility] had declined referral & [facility] was set up w/[facility]. Dona BEAL RN, CM
[2024-05-17] MEDS: FLU VACC 2024-25(6MOS UP)/PF 45 MCG/0.5 ML SYRINGE IM (09:43)
[2024-05-17 10:15] LABS: Ionized Calcium 1.65 mmol/L (1.09-1.30)
--- NOTE | 2024-05-17 12:47 | CASEMGMT ---
Discharge Planning Resumption HH referral sent to [facility]. Kerri Go DC Planning Asst.
--- NOTE | 2024-05-17 12:57 | CASEMGMT ---
SW met with patient as she triggered SDOH for transportation and utilities. SW provided patient with information on [employer], [employer] street card, [employer], and transportation resources. SW also talked with patient about the waiver program. Patient said her sister helps her with anything she needs help with. Patient thanked PAM for the resources. Justyna PEREZ
[2024-05-17 14:17] LABS: Ionized Calcium 1.49 mmol/L (1.09-1.30)
[2024-05-17 14:53] LABS: Ionized Calcium Order ORDER TUBE
--- NOTE | 2024-05-17 17:02 | PCM.PN.HOSP ---
Subjective Subjective Doing well today, no issues overnight. Feeling back to her baseline Objective Data Objective Data Vital Signs: Vital Signs Temp Pulse Resp BP Pulse Ox O2 Del Method 97.8 F 79 16 117/79 100 Room Air 05/17/24 13:52 05/17/24 13:52 05/17/24 13:52 05/17/24 13:52 05/17/24 13:52 05/17/24 13:52 Oxygen Delivery Method Room Air Weight: 277 lb 5.464 oz Body Mass Index (BMI) 43.4 Intake & Output: Intake and Output for Last 24 Hours 05/16/24 05/17/24 05/18/24 03:59 03:59 03:59 Intake Total 3640 / 3640 2119 Balance 3640 / 3640 2119 Medical Nutrition Assessment Dietitian: Malnutrition Criteria Met Start: 05/17/24 10:57 Freq: Status: Active Protocol: Document 05/17/24 15:43 SB (Rec: 05/17/24 15:43 SB [id number]) Nutrition Malnutrition Evidence of Yes Malnutrition Exists Malnutrition (severe Acute Illness/Injury ): Evidenced By Suboptimal Energy Intake (Severe),Weight Loss (Severe) Clinical Problem Acute Disease or Injury Related Malnutrition Etiology severe related to inadequate oral intake Signs/Symptoms as evidenced by 10% unintentional weight loss x 1.5 months and PO meeting <50% of estimated nutrition needs x 2 weeks. Status Active Problem Recommendation Dietitian Adjust to liberal regular diet due to signs and Recommendations/ symptoms of malnutrition. Changes Will order 120ml ensure plus high protein TID with meals. Will monitor weight trends as available. Lab / Micro Data 05/18/24 05:16 05/18/24 05:16 Labs: Laboratory Results - last 24 hr 05/16/24 12:51: Magnesium 1.8, Vitamin D 25-Hydroxy 38.2 05/16/24 22:53: Ionized Calcium 1.66 H 05/17/24 01:56: Ionized Calcium 1.63 H 05/17/24 06:10: WBC 5.9, RBC 4.36, Hgb 10.6 L, Hct 33.7 L, MCV 77.3 L, MCH 24.3 L, MCHC 31.5 L, RDW Std Deviation 53.2 H, RDW Coeff of Teena 19.1 H, Plt Count 358, MPV 11.0, Immature Gran % (Auto) 0.200, Neut % (Auto) 35.2 L, Lymph % (Auto) 44.5 H, [place] % (Auto) 10.3 H, Eos % (Auto) 9.0 H, Baso % (Auto) 0.8, Absolute Neuts (auto) 2.1, Absolute Lymphs (auto) 2.63, Nucleated RBC % 0, Sodium 139, Potassium 3.1 L, Chloride 102, Carbon Dioxide 28.3, Anion Gap 9, BUN 12, Creatinine 1.55 H, Estim Creat Clear Calc 54.51, Est GFR (MDRD) Non-Af 39 L, BUN/Creatinine Ratio 7.6 L, Glucose 83, Calcium 11.5 H, Ionized Calcium 1.59 H, Phosphorus 3.0, Magnesium 1.8, Total Bilirubin 0.39, AST 41 H, ALT 45 H, Alkaline Phosphatase 145 H, Total Protein 5.6 L, Albumin 3.0 L, Globulin 2.5, Albumin/Globulin Ratio 1.2, TSH 0.697 05/17/24 09:53: Ionized Calcium 1.65 H 05/17/24 13:49: Ionized Calcium 1.49 H Physical Exam Narrative General: Alert, Oriented x3, Cooperative, No apparent distress HEENT: Atraumatic, PERRLA, EOMI, Normocephalic Oral: Moist Mucosa Neck: Supple, No JVD Lungs: Diminished, Normal air movement, No rhonchi, No wheeze, No rales Cardiovascular: Regular rate, Regular Rhythm, Normal S1, Normal S2, No murmurs Abdomen: Soft, Non Tender, Non-Distended, No Hepato-splenomegaly Extremities: No edema, Capillary Refill Less than 3 Seconds Skin: No rashes, No breakdown Musculoskeletal: No Tenderness to Palpation of Joints or Extremities Neurological: No focal neurological deficits, Motor Exam 5/5 strength throughout, Sensory exam intact to light touch and pain Psych/Mental Status: Normal Affect, Appropriate Assessment & Plan Assessment/Plan (1) Generalized weakness: (2) Hypercalcemia: (3) Hypokalemia: (4) Transaminitis: PLAN: Plan 1. Hypercalcemia with hypokalemia and CKD 3 ? No MERON on admission, her creatinine is close to baseline of 1.6 ? Calcium is slowly improving, continue with IV fluids ? Her vitamin D 25 is normal and her PTH is suppressed, vitamin D 1, 25 is pending ? Will hold her home vitamin D and calcium supplementation ? PT/OT felt that she could go home ? It does appear that her generalized weakness is resolved 2. History of M EN type I ? She has known pancreatic lesion and she is status post parathyroidectomy with implantation in her forearm ? Continue following endocrinology 3. Hypothyroidism ? Stable ? Continue with her Synthroid 4. GERD ? Stable ? Continue with her home medications 5. Anxiety/depression/insomnia ? Stable ? Continue with her home medications DVT: Heparin Charges/Coding Visit Charges Inpatient E&M: 26770 Subs Hosp L2
[2024-05-18 03:07] VITALS: BMI 43.4
[2024-05-18 03:25] VITALS: BP 103/60; PULSE 76; RESP 16; TEMP 36.3; O2SAT 95
[2024-05-18] MEDS: Heparin Injection (Vial) 5,000 UNIT/ML VIAL 5000 UNIT SC (05:25)
[2024-05-18] MEDS: Levothyroxine 100 MCG Tablet PO (05:25)
[2024-05-18 05:55] LABS: Absolute Neutrophil Count 2.1 X10^3/uL (2.0-7.7); Basophil# 0.06 X10^3/uL; Eosinophil# 0.47 X10^3/uL; Eosinophils% 7.5 % (0-5); Hematocrit 34.2 % (37-47); Hemoglobin 10.7 g/dL (12.0-15.0); Mean Corp Hgb Conc 31.3 g/dL (32-36); Mean Corpuscular Hgb 24.3 pg (27.0-32.0); Mean Corpuscular Volume 77.7 fL (81-99); Monocyte# 0.62 X10^3/uL; Monocyte% 9.9 % (0-10); NRBC Flagged by Analyzer 0 % (0-5); Neutrophil # 2.09 X10^3/uL (2.7-7.7); Neutrophil % 33.4 % (47-70); Platelet Count 320 K/mm3 (150-450); RBC Distribution Width CV 19.4 % (11.6-14.6); RBC Distribution Width SD 55.1 fl (35.1-43.9); White Blood Count 6.3 K/mm3 (4.4-11.0)
[2024-05-18 06:36] LABS: Anion Gap 10 (5-15); BUN 12 mg/dL (4-19); BUN/Creat Ratio 7.6 RATIO (10-20); Calcium,Total 10.4 mg/dL (7.6-11.0); Carbon Dioxide 25.3 mmol/L (21.0-32.0); Chloride 105 mmol/L (98-108); EST Glomerular Filtration Rate 37 (>60); Estimated Creatinine Clearance 52.86 ml/min (50-250); Glucose 82 mg/dL (70-99); Potassium 3.3 mmol/L (3.3-5.1); Sodium Level 140 mmol/L (133-145)
[2024-05-18 09:52] VITALS: BP 98/71; PULSE 85; RESP 16; TEMP 36.7; O2SAT 97
[2024-05-18] MEDS: Pantoprazole Sodium 20 MG Tablet PO (09:55)
[2024-05-18] MEDS: buPROPion (XL) 300 MG TABLET.XL PO (09:55)
[2024-05-18] MEDS: Amox/Clavulanate 875 MG Tablet PO (09:56)
[2024-05-18] MEDS: Furosemide 20 MG Tablet PO (09:56)
[2024-05-18] MEDS: Cyanocobalamin 500 MCG Tablet 1000 MCG PO (09:56)
[2024-05-18] MEDS: Potassium Chloride Oral Tablet 20 MEQ PO (09:56)
--- NOTE | 2024-05-18 10:06 | PCM.DC ---
Discharge Instructions Diet Discharge Diet: Low fat / Low cholesterol DC O2, CPAP, BIPAP needs Home O2 Discharge instructions: No Dressing / Incision Discharge Activity: Return to Normal Activity Dressing / Incision Call your doctor if you observe: Fever of 101 or Higher, Shortness of breath, Dizziness, Fainting spells, Swelling in the ankles, Chest pain and Increased palpitations (irregular heartbeat) Follow Up Care Test Results: Test results from this visit will be discussed in further detail at your follow-up appointment, if applicable. Discharge Plan Admission Admit Date/Time: 05/16/24 15:33 Attending Provider: Brian Smalls Primary Care Provider: Alondra Davies Consulting Providers: Filomena Lopez Instructions Additional Instructions / Restrictions: Follow-up with your primary care doctor and obtain lab work to monitor your calcium and your potassium. I have held your vitamin D supplementation and your calcium supplementation pending these labs Discharge Orders/Prescriptions Prescriptions: Continued levothyroxine 100 mcg tablet 100 mcg PO DAILY Qty: 90 3RF (DME) compr.stocking,thigh,reg,x-lrg Misc See Rx Instructions .Route Qty: 12 0RF Rx Instructions: As directed Trintellix 20 mg tablet 20 mg PO DAILY Qty: 90 1RF cyanocobalamin (vitamin B-12) 500 MCG tablet 1,000 mcg PO DAILY@0800 fluticasone propionate [Allergy Relief (fluticasone)] 50 mcg/actuation spray,suspension 1 spray intranasal BID Qty: 16 0RF Rx Instructions: administer into each nostril furosemide 20 mg tablet 20 mg PO DAILY Vraylar 1.5 mg capsule 1.5 mg PO DAILY albuterol sulfate [Ventolin HFA] 90 mcg/actuation HFA aerosol inhaler 2 puff inhalation Q4H PRN (Reason: Wheezing) Patient Comments: PT OUT OF alprazolam 0.5 mg tablet 0.5 mg PO BID PRN (Reason: anxiety) bupropion HCl 300 mg tablet extended release 24 hr 300 mg PO DAILY albuterol sulfate 2.5 mg /3 mL (0.083 %) solution for nebulization 2.5 mg inhalation Q6H PRN (Reason: shortness of breath or wheezing) Qty: 75 0RF Patient Comments: pt states she doesnt use but is supposed to. (DME) nebulizer and compressor Device See Rx Instructions .Route Qty: 1 0RF Rx Instructions: As directed pantoprazole [Protonix] 20 mg tablet,delayed release (DR/EC) 20 mg PO DAILY Qty: 90 0RF amoxicillin-pot clavulanate 875-125 mg tablet 1 tab PO Q12H Qty: 20 0RF Patient Comments: START DATE 05/11/24 END 05/21/24 potassium chloride 20 mEq tablet extended release 20 meq PO DAILY Qty: 90 0RF Held calcitriol 0.25 mcg capsule 0.75 mcg PO DAILY Qty: 270 3RF Hold Instructions: Resume on 05/24/24. cholecalciferol (vitamin D3) 50 mcg (2,000 unit) capsule 50 mcg PO DAILY Hold Instructions: Resume on 05/24/24. calcium carbonate [Oyster Shell Calcium] 500 mg calcium (1,250 mg) tablet 500 mg PO DAILY Hold Instructions: Resume on 05/24/24. Referrals / Follow Up: Alondra Davies MD [Primary Care Provider] - Michael Lombardo MD [Med Staff - Courtesy Staff] - Within 2 Weeks Disposition Disposition (needs filled in before D/C Order can be placed): Home Health Service
--- NOTE | 2024-05-18 10:32 | PHA.DC.MR.R ---
Pharmacy [place] Med Reconciliation Pharmacy Service has performed discharge medication reconciliation for this patient. The patient's discharge medication list was reviewed for discrepancies and discrepancies were resolved. Medications at Discharge Home Medications cyanocobalamin (vitamin B-12) 500 mcg tablet 1,000 mcg PO DAILY@0800 Supplement 09/16/17 fluticasone propionate 50 mcg/actuation nasal spray,suspension (Allergy Relief (fluticasone)) 1 spray intranasal BID NASAL CONGESTION #16 grams 09/03/23 albuterol sulfate 2.5 mg/3 mL (0.083 %) solution for nebulization 2.5 mg (3 mL) inhalation Q6H PRN shortness of breath or wheezing #75 mL 09/05/23 nebulizer and compressor #1 ea 09/05/23 compr.stocking,thigh,reg,x-lrg #12 ea 09/14/23 pantoprazole 20 mg tablet,delayed release (Protonix) 20 mg PO DAILY HEARTBURN #90 tabs 11/22/23 calcitriol 0.25 mcg capsule 0.75 mcg (3 x 0.25 mcg) PO DAILY SUPPLEMENT #270 caps 12/24/23 Held on 05/18/24. Instructions: Resume on 05/24/24. levothyroxine 100 mcg tablet 100 mcg PO DAILY thyroid #90 tabs 12/24/23 furosemide 20 mg tablet 20 mg PO DAILY FLUID RETENTION 03/26/24 albuterol sulfate 90 mcg/actuation aerosol inhaler (Ventolin HFA) 2 puff inhalation Q4H PRN Wheezing 03/30/24 cariprazine 1.5 mg capsule (Vraylar) 1.5 mg PO DAILY MOOD 03/30/24 calcium carbonate (Oyster Shell Calcium) 500 mg PO DAILY SUPPLEMENT 04/02/24 Held on 05/18/24. Instructions: Resume on 05/24/24. cholecalciferol (vitamin D3) 50 mcg (2,000 unit) capsule 50 mcg PO DAILY SUPPLEMENT 04/02/24 Held on 05/18/24. Instructions: Resume on 05/24/24. vortioxetine 20 mg tablet (Trintellix) 20 mg PO DAILY INSOMNIA #90 tabs 05/08/24 amoxicillin 875 mg-potassium clavulanate 125 mg tablet 1 tab PO Q12H ANTIBIOTIC #20 tabs 05/11/24 alprazolam 0.5 mg tablet 0.5 mg PO BID PRN anxiety 05/16/24 bupropion HCl 300 mg 24 hr tablet, extended release 300 mg PO DAILY MOOD 05/16/24 potassium chloride 20 mEq tablet,extended release 20 meq PO DAILY SUPPLEMENT #90 tabs 05/16/24
--- NOTE | 2024-05-18 10:40 | CASEMGMT ---
Discharge Planning DC orders sent to [facility]. Kerri Go, DC Planning Asst.
--- NOTE | 2024-05-18 10:53 | CASEMGMT ---
MELIDA CHONG NOTE: DC order is in. MELIDA CM to room. Pt resting in bed. She states she is comfortable going home today and denies having any concerns or needs. She is aware to have labs drawn to check calcium and K+ aware she is to hold calcitriol, calcium, and vitamin D pending those lab results. Pt aware PCP will need to order these labs. Appt has been scheduled w/Dr Davies for 05/23, this is on pt's dc plan, and pt is aware. She states either her nephew or her sister will be coming to pick her up today to take her home. Dona RAYON MELIDA CM
[2024-05-18 14:47] VITALS: BP 119/67; PULSE 99; RESP 17; TEMP 36.6; O2SAT 99
--- NOTE | 2024-05-18 16:05 | DS.PCM_ITS ---
Providers Date of Admission: 05/16/24 Primary Care Physician: Dr. Alondra Davies MD Reason For Visit: HYPERCALCEMIA/HYPOKALEMIA/DEHYDRATION Diagnosis Discharge Diagnosis (1) Generalized weakness: Status: Acute Code(s): R53.1 - Weakness (2) Hypercalcemia: Status: Acute Code(s): E83.52 - Hypercalcemia (3) Hypokalemia: Status: Acute Code(s): E87.6 - Hypokalemia (4) Transaminitis: Status: Acute Code(s): R74.01 - Elevation of levels of liver transaminase levels Medications at Discharge Home Medications cyanocobalamin (vitamin B-12) 500 mcg tablet 1,000 mcg PO DAILY@0800 Supplement 09/16/17 fluticasone propionate 50 mcg/actuation nasal spray,suspension (Allergy Relief (fluticasone)) 1 spray intranasal BID NASAL CONGESTION #16 grams 09/03/23 albuterol sulfate 2.5 mg/3 mL (0.083 %) solution for nebulization 2.5 mg (3 mL) inhalation Q6H PRN shortness of breath or wheezing #75 mL 09/05/23 nebulizer and compressor #1 ea 09/05/23 compr.stocking,thigh,reg,x-lrg #12 ea 09/14/23 pantoprazole 20 mg tablet,delayed release (Protonix) 20 mg PO DAILY HEARTBURN #90 tabs 11/22/23 calcitriol 0.25 mcg capsule 0.75 mcg (3 x 0.25 mcg) PO DAILY SUPPLEMENT #270 caps 12/24/23 Held on 05/18/24. Instructions: Resume on 05/24/24. levothyroxine 100 mcg tablet 100 mcg PO DAILY thyroid #90 tabs 12/24/23 furosemide 20 mg tablet 20 mg PO DAILY FLUID RETENTION 03/26/24 albuterol sulfate 90 mcg/actuation aerosol inhaler (Ventolin HFA) 2 puff inhalation Q4H PRN Wheezing 03/30/24 cariprazine 1.5 mg capsule (Vraylar) 1.5 mg PO DAILY MOOD 03/30/24 calcium carbonate (Oyster Shell Calcium) 500 mg PO DAILY SUPPLEMENT 04/02/24 Held on 05/18/24. Instructions: Resume on 05/24/24. cholecalciferol (vitamin D3) 50 mcg (2,000 unit) capsule 50 mcg PO DAILY SUPPLEMENT 04/02/24 Held on 05/18/24. Instructions: Resume on 05/24/24. vortioxetine 20 mg tablet (Trintellix) 20 mg PO DAILY INSOMNIA #90 tabs 05/08/24 amoxicillin 875 mg-potassium clavulanate 125 mg tablet 1 tab PO Q12H ANTIBIOTIC #20 tabs 05/11/24 alprazolam 0.5 mg tablet 0.5 mg PO BID PRN anxiety 05/16/24 bupropion HCl 300 mg 24 hr tablet, extended release 300 mg PO DAILY MOOD 05/16/24 potassium chloride 20 mEq tablet,extended release 20 meq PO DAILY SUPPLEMENT #90 tabs 05/16/24 Hospital Course Operations None Procedures None Summary of Care Provided Minutes Spent on Discharge: 35 Hospital Course: Per HPI: JACOBY ESCALERA, is a 59 F who presented to the emergency department at [facility] on 05/16/2024 with chief complaint of dizziness and confusion. She has been having ongoing issues with this for some time. She states her sister notices that periodically she is confused. She has had some intermittent abdominal pain and constipation. She feels generally weak with no focal changes. 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 She is on calcitriol 0.75 mg 3 tablets daily and vitamin D supplementation. Vital signs on presentation showed temperature 99.1, heart rate 98, blood pressure was 135/71, respiratory 26, and oxygen saturation was 97% on room air. CBC was unremarkable other than a chronic microcytosis but her hemoglobin is normal. Chemistry panel was markedly abnormal with hypokalemia having a potassium of 2.5, serum creatinine of 1.83 which is close to her baseline, calcium of 13.6 with a verified ionized calcium at 1.75, normal magnesium level and chronically elevated LFTs. Alk phos was mildly elevated at 203. TSH was normal, free T4 was normal, PTH was low appropriately at 4 vitamin D 25 was within normal limits. Vitamin D 125 is pending. Given appropriate suppression of her PTH I suspect this is calcitriol toxicity and I expect her vitamin D 125 to be elevated. Calcitriol will elevate her 1-25 level. I did discuss the case with Dr. Lombardo and she agrees with holding her calcitriol, aggressively hydrating her and following her calcium. She felt better after 12 hours of holding her medication her calcium should trend down. Hospital Course: 1. 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 She is on calcium as well as multiple and vitamin D supplements however it appears that her vitamin D levels are likely elevated as her PTH was suppressed. She was given IV fluids and her vitamin D supplementation as well as her calcium supplementations were held on admission. She is feeling much better today and request to be discharged home. She was advised by PT/OT who felt that she would do fine at home. There were some issues with confusion and memory problems that likely occurs whenever her calcium is severely elevated and she currently appears back at baseline. Unfortunately it does take a while to get the vitamin D 1, 25 level so we will plan for discharge and hold her calcium as well as her vitamin D supplements pending outpatient lab work by her primary care doctor. She does have home health so would recommend that they reach out to her primary care doctor to obtain obtain any further lab work. She expressed understanding of the risks and benefits of going home and would like to go home today. 2. Hypothyroidism, GERD, anxiety, depression, insomnia are all chronic medical conditions which complicate her care. Her home medications were continued where appropriate Physical Exam Narrative General: Alert, Oriented x3, Cooperative, No apparent distress HEENT: Atraumatic, PERRLA, EOMI, Normocephalic Oral: Moist Mucosa Neck: Supple, No JVD Lungs: Diminished, Normal air movement, No rhonchi, No wheeze, No rales Cardiovascular: Regular rate, Regular Rhythm, Normal S1, Normal S2, No murmurs Abdomen: Soft, Non Tender, Non-Distended, No Hepato-splenomegaly Extremities: No edema, Capillary Refill Less than 3 Seconds Skin: No rashes, No breakdown Musculoskeletal: No Tenderness to Palpation of Joints or Extremities Neurological: No focal neurological deficits, Motor Exam 5/5 strength throughout, Sensory exam intact to light touch and pain Psych/Mental Status: Normal Affect, Appropriate Medical Records Data Medical Nutrition Assessment Dietitian: Malnutrition Criteria Met Start: 05/17/24 10:57 Freq: Status: Active Protocol: Document 05/17/24 15:43 SB (Rec: 05/17/24 15:43 SB [id number]) Nutrition Malnutrition Evidence of Yes Malnutrition Exists Malnutrition (severe Acute Illness/Injury ): Evidenced By Suboptimal Energy Intake (Severe),Weight Loss (Severe) Clinical Problem Acute Disease or Injury Related Malnutrition Etiology severe related to inadequate oral intake Signs/Symptoms as evidenced by 10% unintentional weight loss x 1.5 months and PO meeting <50% of estimated nutrition needs x 2 weeks. Status Active Problem Recommendation Dietitian Adjust to liberal regular diet due to signs and Recommendations/ symptoms of malnutrition. Changes Will order 120ml ensure plus high protein TID with meals. Will monitor weight trends as available. Weight / BMI Weight Weight: 277 lb 12.519 oz Body Mass Index (BMI) 43.4 ABG / Lab / Microbiology Data 05/18/24 05:16 05/18/24 05:16 Laboratory: Laboratory Results - last 24 hr 05/18/24 05:16: WBC 6.3, RBC 4.40, Hgb 10.7 L, Hct 34.2 L, MCV 77.7 L, MCH 24.3 L, MCHC 31.3 L, RDW Std Deviation 55.1 H, RDW Coeff of Teena 19.4 H, Plt Count 320, MPV 11.0, Immature Gran % (Auto) 0.200, Neut % (Auto) 33.4 L, Lymph % (Auto) 48.0 H, [place] % (Auto) 9.9, Eos % (Auto) 7.5 H, Baso % (Auto) 1.0, Absolute Neuts (auto) 2.1, Absolute Lymphs (auto) 3.00, Nucleated RBC % 0, Sodium 140, Potassium 3.3, Chloride 105, Carbon Dioxide 25.3, Anion Gap 10, BUN 12, Creatinine 1.60 H, Estim Creat Clear Calc 52.86, Est GFR (MDRD) Non-Af 37 L, BUN/Creatinine Ratio 7.6 L, Glucose 82, Calcium 10.4 D/C Instructions Discharge Diet: Low fat / Low cholesterol Call your doctor if you observe: Fever of 101 or Higher, Shortness of breath, Dizziness, Fainting spells, Swelling in the ankles, Chest pain and Increased palpitations (irregular heartbeat) DC O2, CPAP, BIPAP Needs Home O2 Discharge instructions: No Meaningful Use Info Meaningful Use Meaningful Use Diagnoses (Choose all that apply): None applicable Ischemic Stroke Statin Dosing Therapy Reference: STATIN DOSE THERAPY REFERENCE: * Patients > 75 years receive moderate or high dose statin therapy. * Patients 75 years or YOUNGER should receive HIGH intensity statin dose unless contraindicated. You will be required to document reason for non-treatment if statin daily dose does not meet guidelines. HIGH DOSE STATIN THERAPY DAILY Atorvastatin > than or = to 40 mg Rosuvastatin > than or = to 20 mg Amlodipine + Atorvastatin > than or = to 2.5/40 mg Ezetimibe + Simvastatin 10/80 mg Simvastatin 80mg Discharge Plan Admission Admit Date/Time: 05/16/24 15:33 Attending Provider: Brian Smalls Primary Care Provider: Alondra Davies Consulting Providers: Filomena Lopez Instructions Additional Instructions / Restrictions: Follow-up with your primary care doctor and obtain lab work to monitor your calcium and your potassium. I have held your vitamin D supplementation and your calcium supplementation pending these labs Discharge Orders/Prescriptions Prescriptions: Continued levothyroxine 100 mcg tablet 100 mcg PO DAILY Qty: 90 3RF (DME) compr.stocking,thigh,reg,x-lrg Misc See Rx Instructions .Route Qty: 12 0RF Rx Instructions: As directed Trintellix 20 mg tablet 20 mg PO DAILY Qty: 90 1RF cyanocobalamin (vitamin B-12) 500 MCG tablet 1,000 mcg PO DAILY@0800 fluticasone propionate [Allergy Relief (fluticasone)] 50 mcg/actuation spray,suspension 1 spray intranasal BID Qty: 16 0RF Rx Instructions: administer into each nostril furosemide 20 mg tablet 20 mg PO DAILY Vraylar 1.5 mg capsule 1.5 mg PO DAILY albuterol sulfate [Ventolin HFA] 90 mcg/actuation HFA aerosol inhaler 2 puff inhalation Q4H PRN (Reason: Wheezing) Patient Comments: PT OUT OF alprazolam 0.5 mg tablet 0.5 mg PO BID PRN (Reason: anxiety) bupropion HCl 300 mg tablet extended release 24 hr 300 mg PO DAILY albuterol sulfate 2.5 mg /3 mL (0.083 %) solution for nebulization 2.5 mg inhalation Q6H PRN (Reason: shortness of breath or wheezing) Qty: 75 0RF Patient Comments: pt states she doesnt use but is supposed to. (DME) nebulizer and compressor Device See Rx Instructions .Route Qty: 1 0RF Rx Instructions: As directed pantoprazole [Protonix] 20 mg tablet,delayed release (DR/EC) 20 mg PO DAILY Qty: 90 0RF amoxicillin-pot clavulanate 875-125 mg tablet 1 tab PO Q12H Qty: 20 0RF Patient Comments: START DATE 05/11/24 END 05/21/24 potassium chloride 20 mEq tablet extended release 20 meq PO DAILY Qty: 90 0RF Held calcitriol 0.25 mcg capsule 0.75 mcg PO DAILY Qty: 270 3RF Hold Instructions: Resume on 05/24/24. cholecalciferol (vitamin D3) 50 mcg (2,000 unit) capsule 50 mcg PO DAILY Hold Instructions: Resume on 05/24/24. calcium carbonate [Oyster Shell Calcium] 500 mg calcium (1,250 mg) tablet 500 mg PO DAILY Hold Instructions: Resume on 05/24/24. Referrals / Follow Up: Alondra Davies MD [Primary Care Provider] - 05/23/24 9:00 am Michael Lombardo MD [Med Staff - Courtesy Staff] - Within 2 Weeks Disposition Disposition (needs filled in before D/C Order can be placed): Home Health Service Charges/Coding Visit Charges Inpatient E&M: 36973 Disch Hosp >30min
--- NOTE | 2024-05-18 16:31 | CHAPLAIN ---
Type of Pastoral Visit ___ Initial Visit ___ Follow-up Visit ___ On-call Visit ___ General Patient Visit ___ Spiritual Assessment ___ Family Conference ___ Bereavement ___ Rapid Response ___ Code Blue ___ Other (describe below) Pastoral Care Referral From ___ Patient ___ Family ___ Nurse ___ Physician ___ Director Of Contracts ___ Operator Control Room ___ Other (describe below) Sacrament/Intervention ___ Active listening ___ Anointing ___ Mormonism ___ Bereavement ___ Communion ___ Shara exploration ___ ___ Life review ___ Prayer ___ Reconciliation ___ Sacrament of Sick ___ Supportive presence ___ Wedding ___ Other (describe below) Pastoral Comments patient is to be discharged this afternoon and she is talkative about her experience and the hope of now being much better; pt talks about missing her mother who four years ago and that she appreciates a sister that helps her out a lot; pt welcomes casual visit and prayer
[2024-05-19 13:08] LABS: Vitamin D 1,25-Dihydroxy 40.2 pg/mL (24.8-81.5)
== END 2024-05-18 17:40 | disposition home health service (06) ==
LOC: ED 16:09 → PCU 05-17 07:49
PROVIDERS: Admitting Provider Internal Medicine; Emergency Provider Emergency Medicine; PCP Internal Medicine; Visit Provider Family Medicine
DX: E83.52 Hypercalcemia (principal); F33.2 Major depressive disorder, recurrent severe without psychotic features; Z68.41 Body mass index [BMI] 40.0-44.9, adult; E66.01 Morbid (severe) obesity due to excess calories; N18.31 Chronic kidney disease, stage 3a; E43 Unspecified severe protein-calorie malnutrition; E03.9 Hypothyroidism, unspecified; I12.9 Hypertensive chronic kidney disease with stage 1 through stage 4 chronic kidney disease, or unspecified chronic kidney disease; F41.9 Anxiety disorder, unspecified; E87.6 Hypokalemia; R74.01 Elevation of levels of liver transaminase levels; R53.1 Weakness; G47.00 Insomnia, unspecified; Z79.51 Long term (current) use of inhaled steroids; Z79.899 Other long term (current) drug therapy; Z79.890 Hormone replacement therapy; Z23 Encounter for immunization
CPT/HCPCS: 36415; 71046; 80048; 80053; 81001; 82306; 82330; 82652; 83735; 83970; 84100; 84439; 84443; 84481; 85025; 90656; 93005; 96361; 96365; 96366; 96372; 97161; 97166; 97802; 99221; 99285; A4216; G0378

== ENCOUNTER → 2024-05-23 | Outpatient (CLI) | payer MEDICARE, MEDICAID, SELFPAY ==
[2024-05-23 12:47] LABS: ALB/GLOB Ratio 1.1 RATIO (0.9-2.4); AST(SGOT) 24 U/L (<=31); Alanine Aminotransfer ALT/SGPT 22 U/L (<=34); Alkaline Phosphatase 129 U/L (35-104); Anion Gap 14 (5-15); BUN 19 mg/dL (4-19); BUN/Creat Ratio 11.9 RATIO (10-20); Calcium,Total 9.1 mg/dL (7.6-11.0); Carbon Dioxide 24.9 mmol/L (21.0-32.0); Chloride 102 mmol/L (98-108); Creatinine, Serum 1.61 mg/dL (0.70-1.20); EST Glomerular Filtration Rate 37 (>60); Globulin 3.5 g/dL (2.2-4.2); Glucose 82 mg/dL (70-99); Potassium 4.5 mmol/L (3.3-5.1); Protein, Total 7.5 g/dL (5.9-8.4); Sodium Level 140 mmol/L (133-145); Total Bilirubin 0.37 mg/dL (0.00-1.30)
== END | disposition home or self-care (01) ==
LOC: BIMLAB 09:43
PROVIDERS: PCP Internal Medicine; Referring Provider Internal Medicine; Visit Provider Internal Medicine
DX: R41.82 Altered mental status, unspecified (principal); R53.1 Weakness; E83.52 Hypercalcemia; R74.01 Elevation of levels of liver transaminase levels; E87.6 Hypokalemia
CPT/HCPCS: 36415; 80053

== ENCOUNTER → 2024-07-28 | Outpatient (CLI) | payer MEDICARE, MEDICAID, SELFPAY ==
[2024-07-28 12:00] LABS: PTHIN 4 pg/mL (11-61)
[2024-07-28 12:14] LABS: Anion Gap 13 (5-15); BUN 24 mg/dL (4-19); BUN/Creat Ratio 12.1 RATIO (10-20); Calcium,Total 11.8 mg/dL (7.6-11.0); Carbon Dioxide 26.8 mmol/L (21.0-32.0); Chloride 99 mmol/L (98-108); EST Glomerular Filtration Rate 28 (>60); Glucose 135 mg/dL (70-99); Potassium 3.7 mmol/L (3.3-5.1); Sodium Level 139 mmol/L (133-145)
== END | disposition home or self-care (01) ==
LOC: LAB 10:18
PROVIDERS: PCP Internal Medicine; Referring Provider Internal Medicine Endocrinology, Diabetes & Metabolism; Visit Provider Internal Medicine Endocrinology, Diabetes & Metabolism
DX: E89.2 Postprocedural hypoparathyroidism (principal); E11.9 Type 2 diabetes mellitus without complications
CPT/HCPCS: 80048; 83970

== ENCOUNTER 2024-07-30 01:59 | Emergency (ER) | payer MEDICARE, MEDICAID, SELFPAY ==
[2024-07-30 02:00] VITALS: BP 116/76; PULSE 100; RESP 20; TEMP 37.3; O2SAT 99; BMI 43.4
--- NOTE | 2024-07-30 02:06 | ED.VIS.GI ---
HPI HPI - GI History of Present Illness Chief Complaint: Abd Pain Detail of Chief Complaint: Onset 12 to 24 hours ago Informant: patient Abdominal Pain/Flank Pain Onset: Yesterday Context: Sudden Onset Timing: Continuous Quality: Aching Location: Epigastric Current Severity: Mild Maximum Severity: Moderate Worsened by: Nothing Relieved by: Antacids (Temporary relief) Nausea/Vomiting/Emesis GI Symptom: Positive for Nausea; Negative for Vomiting Onset: Today and Yesterday Diarrhea/Melena/Hematochezia GI Symptom: Negative for Diarrhea, Melena or Hematochezia Associated Symptoms Associated Symptoms: Negative for Dysuria, Frequency, Hematuria or Urgency Narrative Narrative: Patient is a 59-year-old woman with multiple medical problems. There are multiple correspondence from [facility] that were reviewed. This had to do with postoperative hypocalcemia. There is an office visit by Dr. Michael Lombardo for hyper calcium and hyperkalemia. She does have history of chronic kidney disease. She was admitted May of this year for generalized weakness with secondary diagnoses of hypercalcemia and hypokalemia. She arrived by ambulance because of epigastric pain. She takes an [id number] product for constipation. She has not had a bowel movement 2 days. This is not abnormal for her. She does endorse nausea without vomiting. She denies hematochezia. Her pain is localized to the epigastric area. There are no alleviating precipitating factors. She then inform me that she did take antiacid. Had temporary relief. Patient has been taking NSAIDs which are contraindicated since she had a sleeve procedure for obesity. Prior similar symptoms: No Recent Illness/Hospitalization: Yes (May 2024) [facility] Medical History Anxiety disorder, unspecified Major depressive disorder, recurrent severe without psychotic features Cough Allergic conjunctivitis Allergic dermatitis of eyelids of both eyes Post-menopausal Wears contact lenses Wears glasses Wears dentures Vertigo History of renal disease High cholesterol Easy bruising History of IBS Gastric reflux Non-smoker Shortness of breath on exertion Leg cramps History of edema Hypertension Gout Exocrine pancreatic insufficiency Chronic diarrhea Stage III chronic kidney disease Obesity Post-surgical hypoparathyroidism Hypothyroidism (acquired) History of blood transfusion Obstructive sleep apnea Multiple endocrine neoplasia (MEN) type I Migraine Multiple endocrine neoplasia type 1 (MEN1) Insomnia Anxiety Edema Allergic rhinitis ADHD Vitamin D deficiency Depression Hypothyroidism Restless leg syndrome Post traumatic stress disorder GERD (gastroesophageal reflux disease) Irritable bowel syndrome Anemia Chronic kidney disease, stage 3 Sleep apnea Osteoarthritis of right knee Difficulty balancing Knee pain Fatigue Anemia Kidney disease Arthritis history of left foot fracture History of kidney stones Ureteral calculus Home Medications ?Medication ?Instructions ?Recorded ?Last Taken ?Type cyanocobalamin (vitamin B-12) 500 1,000 mcg PO DAILY@0800 Supplement 09/16/17 05/15/24 History mcg tablet fluticasone propionate 50 1 spray intranasal BID NASAL 09/03/23 05/15/24 Rx mcg/actuation nasal CONGESTION #16 grams spray,suspension (Allergy Relief (fluticasone)) albuterol sulfate 2.5 mg/3 mL 2.5 mg (3 mL) inhalation Q6H PRN 09/05/23 Unknown Rx (0.083 %) solution for nebulization shortness of breath or wheezing #75 mL nebulizer and compressor #1 ea 09/05/23 Unknown Rx compr.stocking,thigh,reg,x-lrg #12 ea 09/14/23 Unknown Rx calcitriol 0.25 mcg capsule 0.75 mcg (3 x 0.25 mcg) PO DAILY 12/24/23 05/15/24 Rx Held on 05/18/24. SUPPLEMENT #270 caps Instructions: Resume on 05/24/24. levothyroxine 100 mcg tablet 100 mcg PO DAILY thyroid #90 tabs 12/24/23 05/15/24 Rx furosemide 20 mg tablet 20 mg PO DAILY FLUID RETENTION 03/26/24 05/15/24 History albuterol sulfate 90 mcg/actuation 2 puff inhalation Q4H PRN Wheezing 03/30/24 Unknown History aerosol inhaler (Ventolin HFA) calcium carbonate (Oyster Shell 500 mg PO DAILY SUPPLEMENT 04/02/24 05/15/24 History Calcium) Held on 05/18/24. Instructions: Resume on 05/24/24. cholecalciferol (vitamin D3) 50 50 mcg PO DAILY SUPPLEMENT 04/02/24 05/15/24 History mcg (2,000 unit) capsule Held on 05/18/24. Instructions: Resume on 05/24/24. vortioxetine 20 mg tablet 20 mg PO DAILY INSOMNIA #90 tabs 05/08/24 05/15/24 Rx (Trintellix) bupropion HCl 300 mg 24 hr tablet, 300 mg PO DAILY MOOD 05/16/24 05/15/24 History extended release potassium chloride 20 mEq 20 meq PO DAILY SUPPLEMENT #90 tabs 05/16/24 05/15/24 Rx tablet,extended release cariprazine 1.5 mg capsule 1.5 mg PO DAILY #30 caps 06/13/24 Unknown Rx (Vraylar) pantoprazole 20 mg tablet,delayed 20 mg PO DAILY HEARTBURN #90 tabs 06/17/24 Unknown Rx release (Protonix) benztropine 0.5 mg tablet 0.5 mg PO BID PRN EPS #60 tabs 07/10/24 Unknown Rx sucralfate 1 gram tablet 1 g PO .AC and at bedtime #120 tabs 07/30/24 Unknown Rx Allergy/AdvReac Type Severity Reaction Status Date / Time Iodinated Contrast Media Allergy Rash Verified 07/17/24 08:03 (DYEE) propranolol Allergy unknown Verified 07/17/24 08:03 iron AdvReac Other Verified 07/17/24 08:03 morphine AdvReac Rash Verified 07/17/24 08:03 ondansetron (From Zofran) AdvReac Other Verified 07/17/24 08:03 Family History Mother Stomach cancer Anemia Arthritis MEN, type 1 Father Pneumonia Anxiety Arthritis Depression Surgical History History of esophagogastroduodenoscopy (EGD) History of colonoscopy H/O right knee surgery History of hysterectomy History of parathyroidectomy History of cholecystectomy history of right collar bone surgery history of gastric sleeve Social History adopted: No household members: none housing: apartment current occupational status: disabled current occupation: disability history of recent travel: No sexually active: No Smoking Status: Never smoker Electronic Cigarette Use: not used alcohol intake: current alcohol intake frequency: holidays/special occasions only details: once or twice a year substance use type: does not use, former substance user and marijuana diet: low salt well-balanced diet: about half the time caffeine: Yes eating out: 4 or more times/week during the past year weight has: increased > 10 lbs what type of physical activity do you participate in: walking frequency: 1-2 times per week seatbelt use: always do you feel safe at home: Yes ROS ROS ED Constitutional Constitutional ED: Denies chills, fever(s), subjective or sweats Cardiovascular Cardiovascular: Denies chest pain or palpitations Respiratory/Chest Respiratory/Chest: Denies cough, dyspnea or dyspnea on exertion Gastrointestinal Gastrointestinal: Reports abdominal pain and nausea; Denies constipation, diarrhea, melena or vomiting Genitourinary Genitourinary ED: Denies dysuria, hematuria or urinary frequency Musculoskeletal Musculoskeletal: Denies back pain Integumentary Denies rash Psychiatric Psychiatric: Reports anxiety and depression Endocrine Endocrinology: Denies polydipsia, polyphagia or polyuria Hematologic/Lymphatic Hematologic/Lymphatic: Denies easy bleeding or easy bruising EXAM Physical Exam Const Vital Signs: 07/30/24 02:00 Temperature 99.1 F Temperature Source Oral Pulse Rate 100 Respiratory Rate 20 H Blood Pressure 116/76 Blood Pressure Mean 89 Pulse Ox 99 Oxygen Delivery Method Room Air Positive well nourished and well developed Constitutional Narrative: BMI is 43.4. Vital signs are unremarkable. General Appearance ED: well developed; Negative for pallor HEENT Reports moist mucous membranes normocephalic Eyes PERRL Neck no lymphadenopathy, supple and no JVD Resp normal respiratory effort and clear to auscultation bilaterally Cardio regular rate, regular rhythm, S1 normal heart sound, S2 normal heart sound and no murmurs GI non-distended and no masses; Negative for non-tender Auscultation: hypoactive bowel sounds Palpation: soft and tender epigastric; Negative for guarding, rigid, hepatomegaly, splenomegaly, hernia, mass or pulsatile mass Back/Spine no CVA tenderness Extremity full ROM General Extremety ED: Yes edema; Negative for tenderness General Extremity: edema Neuro CN's II-XII intact bilaterally and moves all extremities Sensorium / Orientation: alert Psych Mood & Affect: depressed Skin no wounds General Skin Exam: Negative for jaundice or pallor Lesions: no lesions Rashes: no rashes MDM MDM MDM Narrative Medical decision making narrative: Patient with epigastric pain. In light of her history suspect this probably represents a gastritis. Since there is no tympany percussion no tenderness in my opinion imaging is not indicated nor is her indication for blood work. Will initially treat with GI cocktail. History & Record Review Additional record(s) reviewed:: Prior inpatient record, Prior outpatient record, Prior ED visit and Prior labs Treatment and Re-Evaluation :: Patient was reassessed at 0244. Patient states that her pain is subsiding. She states she is on Protonix. She does not know the dose. She is presently on 20 mg. Will add sucralfate to her regimen. Discharge Plan Triage Chief Complaint: Abd Pain ED Provider: Galdino Camacho Dx/Rx/DC Orders Clinical Impression: Acute epigastric pain, Hyperlipidemia, Chronic kidney disease, Edema, Anxiety disorder, unspecified, H/O gastric sleeve, Gastritis, Adult BMI 40.0-44.9 kg/sq m Instructions: ED Gastritis Ulcer No Abx Prescriptions: New sucralfate 1 gram tablet 1 g PO .AC and at bedtime Qty: 120 0RF No Action calcitriol 0.25 mcg capsule 0.75 mcg PO DAILY Qty: 270 3RF levothyroxine 100 mcg tablet 100 mcg PO DAILY Qty: 90 3RF (DME) compr.stocking,thigh,reg,x-lrg Misc See Rx Instructions .Route Qty: 12 0RF Rx Instructions: As directed Trintellix 20 mg tablet 20 mg PO DAILY Qty: 90 1RF cyanocobalamin (vitamin B-12) 500 MCG tablet 1,000 mcg PO DAILY@0800 cholecalciferol (vitamin D3) 50 mcg (2,000 unit) capsule 50 mcg PO DAILY calcium carbonate [Oyster Shell Calcium] 500 mg calcium (1,250 mg) tablet 500 mg PO DAILY fluticasone propionate [Allergy Relief (fluticasone)] 50 mcg/actuation spray,suspension 1 spray intranasal BID Qty: 16 0RF Rx Instructions: administer into each nostril furosemide 20 mg tablet 20 mg PO DAILY albuterol sulfate [Ventolin HFA] 90 mcg/actuation HFA aerosol inhaler 2 puff inhalation Q4H PRN (Reason: Wheezing) Patient Comments: PT OUT OF bupropion HCl 300 mg tablet extended release 24 hr 300 mg PO DAILY albuterol sulfate 2.5 mg /3 mL (0.083 %) solution for nebulization 2.5 mg inhalation Q6H PRN (Reason: shortness of breath or wheezing) Qty: 75 0RF Patient Comments: pt states she doesnt use but is supposed to. (DME) nebulizer and compressor Device See Rx Instructions .Route Qty: 1 0RF Rx Instructions: As directed potassium chloride 20 mEq tablet extended release 20 meq PO DAILY Qty: 90 0RF Vraylar 1.5 mg capsule 1.5 mg PO DAILY Qty: 30 2RF pantoprazole [Protonix] 20 mg tablet,delayed release (DR/EC) 20 mg PO DAILY Qty: 90 0RF benztropine 0.5 mg tablet 0.5 mg PO BID PRN (Reason: EPS) Qty: 60 0RF Primary Care Provider: Alondra Davies Referrals: Alondra Davies MD [Primary Care Provider] - 1 Week if not improving Print Language: Danish Disposition Disposition: Home, Self Care
[2024-07-30] MEDS: Lidocaine 2% Viscous15 ML UDC 15 ML PO (02:12)
[2024-07-30] MEDS: Mag Hydrox/Al Hydrox/Simeth 30 ML UDC PO (02:12)
[2024-07-30 03:00] VITALS: BP 102/73; PULSE 89; RESP 18; TEMP 36.5; O2SAT 100
== END 2024-07-30 03:01 | disposition home or self-care (01) ==
PROVIDERS: Emergency Provider Emergency Medicine; PCP Internal Medicine; Visit Provider Emergency Medicine
DX: R10.13 Epigastric pain (principal); Z68.41 Body mass index [BMI] 40.0-44.9, adult; N18.30 Chronic kidney disease, stage 3 unspecified; E78.5 Hyperlipidemia, unspecified; I12.9 Hypertensive chronic kidney disease with stage 1 through stage 4 chronic kidney disease, or unspecified chronic kidney disease; F41.9 Anxiety disorder, unspecified; R60.9 Edema, unspecified; E66.9 Obesity, unspecified; K29.70 Gastritis, unspecified, without bleeding; G47.33 Obstructive sleep apnea (adult) (pediatric)
CPT/HCPCS: 99284

== ENCOUNTER → 2024-08-01 | Outpatient (CLI) | payer MEDICARE, MEDICAID, SELFPAY ==
[2024-08-01 18:10] LABS: Anion Gap 14 (5-15); BUN 17 mg/dL (4-19); BUN/Creat Ratio 9.2 RATIO (10-20); Calcium,Total 10.4 mg/dL (7.6-11.0); Carbon Dioxide 24.5 mmol/L (21.0-32.0); Chloride 100 mmol/L (98-108); Creatinine, Serum 1.86 mg/dL (0.70-1.20); EST Glomerular Filtration Rate 31 (>60); Glucose 109 mg/dL (70-99); Potassium 3.3 mmol/L (3.3-5.1); Sodium Level 139 mmol/L (133-145); Vitamin D,25 Hydroxy 33.3 ng/mL (30-100)
== END | disposition home or self-care (01) ==
LOC: LAB 16:25
PROVIDERS: PCP Internal Medicine; Referring Provider Internal Medicine Endocrinology, Diabetes & Metabolism; Visit Provider Internal Medicine Endocrinology, Diabetes & Metabolism
DX: E55.9 Vitamin D deficiency, unspecified (principal); E03.9 Hypothyroidism, unspecified; E89.2 Postprocedural hypoparathyroidism
CPT/HCPCS: 36415; 80048; 82306

== ENCOUNTER → 2024-08-07 | Outpatient (CLI) | payer MEDICARE, MEDICAID, SELFPAY ==
[2024-08-07 12:39] LABS: Anion Gap 14 (5-15); BUN 21 mg/dL (4-19); BUN/Creat Ratio 12.7 RATIO (10-20); Calcium,Total 8.3 mg/dL (7.6-11.0); Carbon Dioxide 26.5 mmol/L (21.0-32.0); Chloride 99 mmol/L (98-108); Creatinine, Serum 1.65 mg/dL (0.70-1.20); EST Glomerular Filtration Rate 36 (>60); Glucose 101 mg/dL (70-99); Potassium 3.7 mmol/L (3.3-5.1); Sodium Level 140 mmol/L (133-145); Vitamin D,25 Hydroxy 28.3 ng/mL (30-100)
== END | disposition home or self-care (01) ==
LOC: LAB 09:24
PROVIDERS: PCP Internal Medicine; Referring Provider Internal Medicine Endocrinology, Diabetes & Metabolism; Visit Provider Internal Medicine Endocrinology, Diabetes & Metabolism
DX: E55.9 Vitamin D deficiency, unspecified (principal); E89.2 Postprocedural hypoparathyroidism
CPT/HCPCS: 36415; 80048; 82306

== ENCOUNTER → 2024-08-16 | Outpatient (CLI) | payer MEDICARE, MEDICAID, SELFPAY ==
[2024-08-16 15:15] LABS: ALB/GLOB Ratio 1.1 RATIO (0.9-2.4); AST(SGOT) 18 U/L (<=31); Alanine Aminotransfer ALT/SGPT 14 U/L (<=34); Albumin, Serum 3.9 g/dL (3.5-5.0); Alkaline Phosphatase 98 U/L (35-104); Anion Gap 12 (5-15); BUN 18 mg/dL (4-19); BUN/Creat Ratio 11.9 RATIO (10-20); Calcium,Total 10.5 mg/dL (7.6-11.0); Chloride 103 mmol/L (98-108); Creatinine, Serum 1.49 mg/dL (0.70-1.20); EST Glomerular Filtration Rate 40 (>60); Globulin 3.4 g/dL (2.2-4.2); Glucose 93 mg/dL (70-99); Potassium 4.4 mmol/L (3.3-5.1); Protein, Total 7.3 g/dL (5.9-8.4); Sodium Level 139 mmol/L (133-145)
== END | disposition home or self-care (01) ==
LOC: LAB 13:19
PROVIDERS: PCP Internal Medicine; Referring Provider Internal Medicine Endocrinology, Diabetes & Metabolism; Visit Provider Internal Medicine Endocrinology, Diabetes & Metabolism
DX: E89.2 Postprocedural hypoparathyroidism (principal)
CPT/HCPCS: 36415; 80053

== ENCOUNTER → 2024-08-24 | Outpatient (CLI) | payer MEDICARE, MEDICAID, SELFPAY ==
[2024-08-24 13:30] LABS: ALB/GLOB Ratio 1.3 RATIO (0.9-2.4); AST(SGOT) 16 U/L (<=31); Alanine Aminotransfer ALT/SGPT 8 U/L (<=34); Alkaline Phosphatase 87 U/L (35-104); Anion Gap 11 (5-15); BUN 19 mg/dL (4-19); BUN/Creat Ratio 14.1 RATIO (10-20); Calcium,Total 10.1 mg/dL (7.6-11.0); Carbon Dioxide 24.3 mmol/L (21.0-32.0); Chloride 103 mmol/L (98-108); Creatinine, Serum 1.37 mg/dL (0.70-1.20); EST Glomerular Filtration Rate 45 (>60); Glucose 113 mg/dL (70-99); Potassium 4.3 mmol/L (3.3-5.1); Sodium Level 139 mmol/L (133-145); Total Bilirubin 0.48 mg/dL (0.00-1.30)
== END | disposition home or self-care (01) ==
LOC: LAB 12:22
PROVIDERS: PCP Internal Medicine; Referring Provider Internal Medicine Endocrinology, Diabetes & Metabolism; Visit Provider Internal Medicine Endocrinology, Diabetes & Metabolism
DX: E89.2 Postprocedural hypoparathyroidism (principal)
CPT/HCPCS: 36415; 80053

== ENCOUNTER → 2024-09-04 | Outpatient (CLI) | payer MEDICARE, MEDICAID, SELFPAY ==
[2024-09-04 11:12] LABS: Anion Gap 10 (5-15); BUN 16 mg/dL (4-19); BUN/Creat Ratio 11.9 RATIO (10-20); Calcium,Total 11.3 mg/dL (7.6-11.0); Carbon Dioxide 27.7 mmol/L (21.0-32.0); Chloride 100 mmol/L (98-108); Creatinine, Serum 1.38 mg/dL (0.70-1.20); EST Glomerular Filtration Rate 44 (>60); Glucose 100 mg/dL (70-99); Potassium 4.4 mmol/L (3.3-5.1); Sodium Level 138 mmol/L (133-145)
== END | disposition home or self-care (01) ==
LOC: LAB 09:43
PROVIDERS: PCP Internal Medicine; Referring Provider Internal Medicine Endocrinology, Diabetes & Metabolism; Visit Provider Internal Medicine Endocrinology, Diabetes & Metabolism
DX: N18.32 Chronic kidney disease, stage 3b (principal); E89.2 Postprocedural hypoparathyroidism
CPT/HCPCS: 36415; 80048

== ENCOUNTER 2024-09-09 17:23 | Emergency (ER) | payer MEDICARE, MEDICAID, SELFPAY ==
[2024-09-09 17:23] VITALS: BP 135/87; PULSE 100; RESP 14; TEMP 36.6; O2SAT 98; BMI 43.7
--- NOTE | 2024-09-09 17:52 | ED.VIS.LOWEX ---
HPI History of Present Illness HPI Narrative: 59-year-old female history of CKD and PTSD. Atraumatic right foot pain swelling laterally last night. Denies any fall injury or trauma. Prior foot fracture but never needed surgery to the right foot. No fever. No redness. Chief Complaint: Lower Extremity Injury Informant: patient Occured/Mechanism Mechanism/Context: No injury and No blunt trauma Onset/Context/Timing Onset: Today and Yesterday Context: Gradual Onset Timing: Continuous Quality of Pain: Dull and Aching Current Severity: Mild Maximum Severity: Mild Associated Symptoms Associated Symptoms: Negative for Parasthesia, Weakness or Loss of Funtion Narrative Narrative: 59-year-old female atraumatic right foot pain and lateral swelling. History of prior fracture without surgery. No other complaints. Prior similar symptoms: No Recent Illness/Hospitalization: No PFSH PFSH Medical History Chronic kidney disease (CKD) stage G3b/A1, moderately decreased glomerular filtration rate (GFR) between 30-44 mL/min/1.73 square meter and albuminuria creatinine ratio less than 30 mg/g Anxiety disorder, unspecified Major depressive disorder, recurrent severe without psychotic features Cough Allergic conjunctivitis Allergic dermatitis of eyelids of both eyes Post-menopausal Wears contact lenses Wears glasses Wears dentures Vertigo History of renal disease High cholesterol Easy bruising History of IBS Gastric reflux Non-smoker Shortness of breath on exertion Leg cramps History of edema Hypertension Gout Exocrine pancreatic insufficiency Chronic diarrhea Stage III chronic kidney disease Obesity Post-surgical hypoparathyroidism Hypothyroidism (acquired) History of blood transfusion Obstructive sleep apnea Multiple endocrine neoplasia (MEN) type I Migraine Multiple endocrine neoplasia type 1 (MEN1) Insomnia Anxiety Edema Allergic rhinitis ADHD Vitamin D deficiency Depression Hypothyroidism Restless leg syndrome Post traumatic stress disorder GERD (gastroesophageal reflux disease) Irritable bowel syndrome Anemia Chronic kidney disease, stage 3 Sleep apnea Osteoarthritis of right knee Difficulty balancing Knee pain Fatigue Anemia Kidney disease Arthritis history of left foot fracture History of kidney stones Ureteral calculus Home Medications ?Medication ?Instructions ?Recorded ?Last Taken ?Type cyanocobalamin (vitamin B-12) 500 1,000 mcg PO DAILY@0800 Supplement 09/16/17 05/15/24 History mcg tablet fluticasone propionate 50 1 spray intranasal BID NASAL 09/03/23 05/15/24 Rx mcg/actuation nasal CONGESTION #16 grams spray,suspension (Allergy Relief (fluticasone)) albuterol sulfate 2.5 mg/3 mL 2.5 mg (3 mL) inhalation Q6H PRN 09/05/23 Unknown Rx (0.083 %) solution for nebulization shortness of breath or wheezing #75 mL nebulizer and compressor #1 ea 09/05/23 Unknown Rx compr.stocking,thigh,reg,x-lrg #12 ea 09/14/23 Unknown Rx levothyroxine 100 mcg tablet 100 mcg PO DAILY thyroid #90 tabs 12/24/23 05/15/24 Rx furosemide 20 mg tablet 20 mg PO DAILY FLUID RETENTION 03/26/24 05/15/24 History albuterol sulfate 90 mcg/actuation 2 puff inhalation Q4H PRN Wheezing 03/30/24 Unknown History aerosol inhaler (Ventolin HFA) cholecalciferol (vitamin D3) 50 50 mcg PO DAILY SUPPLEMENT 04/02/24 05/15/24 History mcg (2,000 unit) capsule Held on 05/18/24. Instructions: Resume on 05/24/24. vortioxetine 20 mg tablet 20 mg PO DAILY INSOMNIA #90 tabs 05/08/24 05/15/24 Rx (Trintellix) bupropion HCl 300 mg 24 hr tablet, 300 mg PO DAILY MOOD 05/16/24 05/15/24 History extended release cariprazine 1.5 mg capsule 1.5 mg PO DAILY #30 caps 06/13/24 Unknown Rx (Vraylar) pantoprazole 20 mg tablet,delayed 20 mg PO DAILY HEARTBURN #90 tabs 06/17/24 Unknown Rx release (Protonix) sucralfate 1 gram tablet 1 g PO .AC and at bedtime #120 tabs 07/30/24 Unknown Rx potassium chloride 20 mEq 20 meq PO DAILY SUPPLEMENT #90 tabs 08/08/24 Unknown Rx tablet,extended release benztropine 0.5 mg tablet 0.5 mg PO BID PRN EPS #180 tabs 08/09/24 Unknown Rx palopegteriparatide 168 mcg/0.56 12 mcg (0.04 mL) subcut QDAY #1.12 09/04/24 Unknown Rx mL subcutaneous pen injector mL (Yorvipath) Allergy/AdvReac Type Severity Reaction Status Date / Time Iodinated Contrast Media Allergy Rash Verified 07/17/24 08:03 (DYEE) propranolol Allergy unknown Verified 07/17/24 08:03 iron AdvReac Other Verified 07/17/24 08:03 morphine AdvReac Rash Verified 07/17/24 08:03 ondansetron (From Zofran) AdvReac Other Verified 07/17/24 08:03 Family History Mother Stomach cancer Anemia Arthritis MEN, type 1 Father Pneumonia Anxiety Arthritis Depression Surgical History History of esophagogastroduodenoscopy (EGD) History of colonoscopy H/O right knee surgery History of hysterectomy History of parathyroidectomy History of cholecystectomy history of right collar bone surgery history of gastric sleeve Social History adopted: No household members: none housing: apartment current occupational status: disabled current occupation: disability history of recent travel: No sexually active: No Smoking Status: Never smoker Electronic Cigarette Use: not used alcohol intake: current alcohol intake frequency: holidays/special occasions only details: once or twice a year substance use type: does not use, former substance user and marijuana diet: low salt well-balanced diet: about half the time caffeine: Yes eating out: 4 or more times/week during the past year weight has: increased > 10 lbs what type of physical activity do you participate in: walking frequency: 1-2 times per week seatbelt use: always do you feel safe at home: Yes ROS ROS ED ROS Narrative Denies recent illness. Constitutional Constitutional ED: Denies chills or fever(s) Eyes Eyes: Denies blurry vision ENT ENT ED: Denies ear pain Cardiovascular Cardiovascular: Denies chest pain Respiratory/Chest Respiratory/Chest: Denies cough or dyspnea Gastrointestinal Gastrointestinal: Denies abdominal pain Genitourinary Genitourinary ED: Denies dysuria or hematuria Musculoskeletal Musculoskeletal: Denies arthralgias Integumentary Denies abscess or Abrasions Neurologic Neurologic: Denies headache(s) Psychiatric Psychiatric: Denies anxiety or depression Endocrine Endocrinology: Denies polydipsia Hematologic/Lymphatic Hematologic/Lymphatic: Denies easy bleeding, easy bruising or lymphadenopathy Allergic/Immunologic Allergic/Immunologic ED: Denies mouth swelling, tongue swelling or urticaria EXAM Physical Exam Narrative Exam Narrative: 59-year-old female vital signs stable afebrile. No acute distress. H EENT exam pupils round react to light. Motions are intact. Neck nontender. Lungs clear to auscultation. Heart regular rhythm rate about 100 no murmur. Chest wall ribs nontender. Abdomen soft nontender. Back nontender. Moving all 4 extremities. Neurovascular intact. Right ankle nontender nonswollen. Normal dorsi plantarflexion. Normal DP pulse. Right foot mild tenderness lateral malleolus. Able to wiggle her toes. Normal touch sensation. No redness or warmth. No skin puncture. Neurologically she is awake and alert. Answer questions following commands. Const Vital Signs: 09/09/24 17:23 Temperature 98 F Temperature Source Temporal Pulse Rate 100 Respiratory Rate 14 Blood Pressure 135/87 H Blood Pressure Mean 103 Pulse Ox 98 Oxygen Delivery Method Room Air Positive well nourished, well developed and obese; Negative for cachectic, contractures or unkempt General Appearance ED: well developed and NAD; Negative for unkempt, cachectic or contractures Nutritional Appearance: obese; Negative for cachectic HEENT Reports moist mucous membranes normocephalic and atraumatic Eyes PERRL Neck full ROM and supple Chest Wall inspection of chest normal and palpation of chest normal Resp normal respiratory effort, no retractions and clear to auscultation bilaterally Cardio regular rate, regular rhythm, S1 normal heart sound, S2 normal heart sound and no murmurs GI non-tender, non-distended and no masses Auscultation: normoactive bowel sounds Palpation: soft; Negative for tender, guarding or rebound tenderness present Back/Spine no CVA tenderness Extremity normal to inspection and full ROM Extremity Narrative: Right foot mild tenderness along the right lateral malleolus of the small toe. No gross bony deformity. No edema. No cellulitis. General Extremety ED: Negative for cyanosis or edema General Extremity: Negative for cyanosis or edema Neuro oriented x3, CN's II-XII intact bilaterally and moves all extremities Sensorium / Orientation: alert, oriented to person, oriented to place and oriented to time Motor Exam: strength 5/5 throughout Psych mental status grossly normal Appearance: Negative for unkempt Skin no wounds Lesions: no lesions Rashes: no rashes MDM MDM MDM Narrative Medical decision making narrative: 59-year-old female atraumatic right foot pain x-ray being obtained. No signs of infection labs are not necessary. She already took Tylenol at home for pain. Due to her chronic kidney disease she typically is told to avoid aspirin or Motrin. Repeat exam unchanged. We discussed her x-ray results. Ice and Tylenol. Follow-up as needed. Return if worse. History & Record Review Discussion w/independent historian: Patient Additional record(s) reviewed:: Prior inpatient record, Prior outpatient record, Prior ED visit and Prior labs Radiography Diagnostic Testing: Clinical Impression(s) from Imaging Studies Foot X-Ray 09/09/24 18:15 IMPRESSION: Negative right foot Reading Location: [facility] Right foot x-ray, 3 views, interpreted by myself shows no acute fracture. No dislocation. No acute abnormalities. Discharge Plan Triage Chief Complaint: Lower Extremity Injury ED Provider: Uzair Joy Dx/Rx/DC Orders Clinical Impression: Acute foot pain, Contusion of foot Instructions: ED Contusion, Lower Extremity Prescriptions: No Action levothyroxine 100 mcg tablet 100 mcg PO DAILY Qty: 90 3RF (DME) compr.stocking,thigh,reg,x-lrg Misc See Rx Instructions .Route Qty: 12 0RF Rx Instructions: As directed Trintellix 20 mg tablet 20 mg PO DAILY Qty: 90 1RF cyanocobalamin (vitamin B-12) 500 MCG tablet 1,000 mcg PO DAILY@0800 cholecalciferol (vitamin D3) 50 mcg (2,000 unit) capsule 50 mcg PO DAILY fluticasone propionate [Allergy Relief (fluticasone)] 50 mcg/actuation spray,suspension 1 spray intranasal BID Qty: 16 0RF Rx Instructions: administer into each nostril furosemide 20 mg tablet 20 mg PO DAILY albuterol sulfate [Ventolin HFA] 90 mcg/actuation HFA aerosol inhaler 2 puff inhalation Q4H PRN (Reason: Wheezing) Patient Comments: PT OUT OF bupropion HCl 300 mg tablet extended release 24 hr 300 mg PO DAILY sucralfate 1 gram tablet 1 g PO .AC and at bedtime Qty: 120 0RF albuterol sulfate 2.5 mg /3 mL (0.083 %) solution for nebulization 2.5 mg inhalation Q6H PRN (Reason: shortness of breath or wheezing) Qty: 75 0RF Patient Comments: pt states she doesnt use but is supposed to. (DME) nebulizer and compressor Device See Rx Instructions .Route Qty: 1 0RF Rx Instructions: As directed Vraylar 1.5 mg capsule 1.5 mg PO DAILY Qty: 30 2RF pantoprazole [Protonix] 20 mg tablet,delayed release (DR/EC) 20 mg PO DAILY Qty: 90 0RF potassium chloride 20 mEq tablet extended release 20 meq PO DAILY Qty: 90 0RF benztropine 0.5 mg tablet 0.5 mg PO BID PRN (Reason: EPS) Qty: 180 1RF Yorvipath 168 mcg/0.56 mL pen injector 12 mcg subcut QDAY Qty: 1.12 3RF Primary Care Provider: Alondra Davies Referrals: Alondra Davies MD [Primary Care Provider] - 1 Week if not improving Activity Restrictions/Additional Instructions: Ice and elevate your foot to decrease pain and swelling. Tylenol for pain. Should progressively improved. Your x-rays were negative. There is nothing broken that we can see. Follow-up with your doctor if not improving. Print Language: Bulgarian Disposition Disposition: Home, Self Care
--- OUTSIDE RECORDS SUMMARY | 2024-09-09 17:58 | XMS RPT_ITS | CCD ---
Author Organization [facility] Care Team Providers Care Prospecting Driller Helper Name Role Phone GABRIELA MAY Attending Unavailable KEITH YAN Primary Care Unavailable GABRIELA MAY Attending Unavailable KEITH YAN Primary Care Unavailable Grayson Solorzano MD Unavailable Bret Salomon MD Primary Care Provider [phone] Grayson Solorzano MD Unavailable Grayson Solorzano MD Unavailable Bret Salomon MD Primary Care Provider [phone] ROSINA MUÑOZ Referring Unavailable TESTRAKEZULMA Referring Unavailable TESTRAKEZULMA Attending Unavailable TESTRAZULMA LUI Referring Unavailable TESTRAZULMA LUI Attending Unavailable TESTZULMA OSORIO Referring Unavailable SIPERSTEIN PETER Referring Unavailable SIPERSTEINMABELAN Attending Unavailable Samson, Alondra Primary Care Unavailable Le, Agustin Attending Unavailable Le, Agustin Referring Unavailable Abell, Alondra Primary Care Unavailable Grupo, Michael Referring Unavailable Grupo, Michael Attending Unavailable Abell, Alondra Primary Care Unavailable Abell, Alondra Attending Unavailable Abell, Alondra Referring Unavailable Abell, Alondra Primary Care Unavailable Grupo, Michael Referring Unavailable Grupo, Michael Attending Unavailable Samson, Alondra Referring Unavailable Abell, Alondra Attending Unavailable Samson, Alondra Primary Care Unavailable Abell, Alondra Primary Care Unavailable Samson, Alondra Attending Unavailable Samson, Alondra Referring Unavailable Zulma Chi Attending Unavailable Zulma Chi Referring Unavailable Abell, Alondra Primary Care Unavailable Samson, Alondra Primary Care Unavailable Le, Agustin Referring Unavailable Jonathan Jim Attending Unavailable Velasquez Gonzalez Admitting Unavailable Agyeponmir, Velasquez Consulting Unavailable Abell, Alondra Primary Care Unavailable Grupo, Michael Attending Unavailable Grupo, Michael Referring Unavailable Samson, Alondra Primary Care Unavailable Le, Agustin Attending Unavailable Samson, Alondra Primary Care Unavailable Camacho, Galdino Attending Unavailable Samson, Alondra Primary Care Unavailable Camacho, Galdino Attending Unavailable Samson, Alondra Primary Care Unavailable Lemuel Bledsoe Attending Unavailable Samson, Alondra Primary Care Unavailable Joey Hughes Attending Unavailable Abell, Alondra Primary Care Unavailable Syed Crum Attending Unavailable Samson, Alondra Primary Care Unavailable Le, Agustin Attending Unavailable Abell, Alondra Primary Care Unavailable Grupo, Michael Referring Unavailable Grupo, Michael Attending Unavailable Lesa Carter Consulting Unavailable Zulma Chi Attending Unavailable Samson, Alondra Primary Care Unavailable Abell, Alondra Primary Care Unavailable Grupo, Michael Attending Unavailable Grupo, Michael Referring Unavailable Samson, Alondra Primary Care Unavailable Grupo, Michael Attending Unavailable Grupo, Michael Referring Unavailable John, Filomena Admitting Unavailable John, Filomena Consulting Unavailable Brian Smalls Attending Unavailable Samson, Alondra Primary Care Unavailable Samson, Alondra Primary Care Unavailable Samson, Alondra Referring Unavailable Gabino Estrella Attending Unavailable Samson, Alondra Primary Care Unavailable Provider, Ed Physician Attending Unavailab le Abell, Alondra Primary Care Unavailable Molly Perez Attending Unavailabl Filomena Franklin Consulting Unavailable John, Filomena Admitting Unavailable John, Filomena Attending Unavailable Abell, Alondra Primary Care Unavailable Samson, Alondra Primary Care Unavailable Le, Agustin Referring Unavailable Jonathan Jim Attending Unavailable Velasquez Gonzalez Consulting Unavailable Aglillian, Velasquez Admitting Unavailable Jonathan Jim Consulting Unavailable Abell, Alondra Primary Care Unavailable Samson, Alondra Attending Unavailable Samson, Alondra Referring Unavailable Abell, Alondra Primary Care Unavailable Grupo, Michael Attending Unavailable Samson, Alondra Referring Unavailable Kenn Terrell Attending Unavailable Samson, Alondra Primary Care Unavailable Abell, Alondra Referring Unavailable Samson, Alondra Primary Care Unavailable Zulma Chi Attending Unavailable Abell, Alondra Primary Care Unavailable Samson, Alondra Referring Unavailable Kenn Gerard Attending Unavailable Abell, Alondra Primary Care Unavailable Samson, Alondra Referring Unavailable Samson, Alondra Attending Unavailable Abell, Alondra Primary Care Unavailable Kenn Terrell Attending Unavailable Samson, Alondra Primary Care Unavailable Kenn Terrell Attending Unavailable Abell, Alondra Primary Care Unavailable Kenn Terrell Attending Unavailable Abell, Alondra Primary Care Unavailable Michael Lombardo Attending Unavailable Samson, Alondra Referring Unavailable Abell, Alondra Primary Care Unavailable Samson, Alondra Attending Unavailable Samson, Alondra Referring Unavailable Kenn Terrell Attending Unavailable Samson, Alondra Primary Care Unavailable Velasquez Gonzalez Attending Unavailable Brian Smalls Attending Unavailable Brian Smalls Consulting Unavailable Samson, Alondra Primary Care Unavailable Galdino Camacho Attending Unavailable Samson, Alondra Primary Care Unavailable Zulma Chi Referring Unavailable Zulma Chi Attending Unavailable Samson, Alondra Primary Care Unavailable Michael Lombardo Attending Unavailable GrupoMichael Referring Unavailable Samson, Alondra Attending Unavailable Allergies Allergy Classification Reported Allergen(s) Allergy Type Date of Onset Reaction(s) Facility (20 sources) Contrast media; Translations: [CONTRAST DYE] Drug Allergy 8 Rash, Intolerance [facility] (20 sources) ferrous gluconate; Translations: [FERROUS GLUCONATE] Drug Allergy 3 GI Upset [facility] Work Phone: (20 sources) Morphine; Translations: [MORPHINE] Drug Allergy 6 Rash [facility] (20 sources) Ondansetron; Translations: [ONDANSETRON] Drug Allergy 8 Other: See Comments [facility] (20 sources) oxyCODONE; Translations: [OXYCODONE HCL] Drug Allergy 7 Rash, Swelling [facility] (20 sources) Propranolol; Translations: [PROPRANOLOL] Drug Allergy 8 Itching [facility] Work Phone: (6 sources) Iodides; Translations: [IODIDES] Drug Allergy 1 Intolerance [facility] (1 source) Iron Drug Allergy 5 [facility] (1 source) Morphine Drug Allergy 5 [facility] (1 source) Ondansetron Drug Allergy 5 [facility] (1 source) Propranolol Drug Allergy 5 [facility] (1 source) Iodinated Contrast Media Drug allergy (disorder) 5 [facility] Medications Current Medications Medication Drug Class(es) Dates Sig (Normalized) Sig (Original) [id number] 200 actuat albuterol 0.09 mg/actuat metered dose inhaler (4 sources) beta2-Adrenergic Agonist Start: 12-24-2023 take 2 puff(s) by mouth every four hours for wheezing albuterol HFA (PROVENTIL HFA, VENTOLIN HFA) 90 mcg/actuation inhaler inhale 2 puffs by mouth every 4 hours if needed for wheezing 12/24/2023 Active ALPRAZolam 0.5 mg oral tablet (20 sources) Benzodiazepine Start: 04-24-2016 take 1 tablet by mouth once daily at bedtime ALPRAZolam (XANAX) 0.5 mg tablet Take 1 tablet by mouth daily at bedtime. 04/24/2016 Active Comment on above: Take 1 tablet by viola th daily at bedtime. ARIPiprazole 2 mg oral tablet (20 sources) Atypical Antipsychotic take 5 tablets by mouth once daily ARIPiprazole (ABILIFY) 2 mg tablet Take 10 mg by mouth once daily. Active Comment on above: Take 10 mg by mouth once daily. atorvastatin 20 mg oral tablet (20 sources) HMG-CoA Reductase Inhibitor Start: 05-29-2022 take 1 tablet by mouth once daily atorvastatin (LIPITOR) 20 mg tablet Indications: Mixed hyperlipidemia take 1 tablet by mouth once daily 90 tablet 3 05/29/2022 Active Start: 06-01-2021 take 1 tablet by viola th once daily atorvastatin (LIPITOR) 20 mg tablet Indications: Mixed hyperlipidemia take 1 tablet by mouth once daily 90 tablet 3 06/01/2021 Active Comment on above: take 1 tablet by viola th once daily benztropine mesylate 0.5 mg oral tablet (4 sources) Anticholinergic, Antihistamine Start: 12-01-19 24 take 1 tablet by mouth every twelve hours benztropine (COGENTIN) 0.5 mg tablet Take 1 tablet by mouth every 12 hours. 12/01/2023 Active 24 hr buPROPion hydrochloride 150 mg extended release oral tablet (20 sources) Aminoketone Start: 10-02-19 take 1 tablet by mouth once daily buPROPion XL (WELLBUTRIN XL) 150 mg 24 hr tablet Take 1 tablet by mouth once daily. (Psychiatrist) 180 tablet 3 10/01/2016 Active Start: 10-01-2016 take 1 tablet by viola th once daily buPROPion XL (WELLBUTRIN XL) 300 mg 24 hr tablet Take 1 tablet by mouth once daily. 0 10/01/2016 Active Comment on above: Take 1 tablet by viola th once daily. (Psychiatrist) Take 1 tablet by viola th once daily. calcitriol 0.0005 mg oral capsule (20 sources) Vitamin D3 Analog Start: 022 take 2 capsules by mouth once daily calcitriol (ROCALTROL) 0.5 mcg capsule Indications: Postsurgical hypoparathyroidism (HCC) take 2 capsules by mouth once daily 180 capsule 3 11/14/2021 Active Start: 12-04-2019 End: 01-21-2021 take 2 capsules by mouth once daily calcitriol (ROCALTROL) 0.5 mcg capsule Indications: Postsurgical hypoparathyroidism (HCC) take 2 capsules by mouth once daily 180 capsule 3 01/21/2021 Active Comment on above: take 2 capsules by m out once daily calcium carbonate 500 mg chewable tablet (20 sources) Start: 2019 take 1 tablet by mouth twice daily calcium carbonate (CALCIUM ANTACID) 500 mg chew Indications: Postsurgical hypoparathyroidism (HCC) Take 1 tablet by mouth twice daily. 03/15/2019 Active Comment on above: Take 1 tablet by viola th twice daily. cariprazine 1.5 mg oral capsule (8 sources) Atypical Antipsychotic Start: 2023 take 1 capsule by mouth once VRAYLAR 1.5 mg capsule Take 1 capsule by mouth every afternoon. 07/06/2023 Active cholecalciferol 1.25 mg oral capsule (20 sources) Vitamin D Start: 2020 take 1 capsule by mouth every week cholecalciferol, Vitamin D3, (VITAMIN D3) 1,250 mcg (50,000 unit) cap capsule Indications: Hypocalcemia Take 1 capsule by mouth one time a week. 12 capsule 03/04/2021 Active take 1 tablet by mouth once dayana y cholecalciferol (VITAMIN D-3) 2,000 unit tablet Take 2,000 Units by mouth once daily. Active Comment on above: Take 2,000 Units by mouth once daily. Take 1 capsule by mo [facility] one time a week. diphenhydrAMINE hydrochloride 25 mg oral capsule (1 source) Histamine-1 Receptor Antagonist Start: End: diphenhydrAMINE 50 mg (BENADRYL) fluticasone propionate 0.05 mg/actuat metered dose nasal spray (20 sources) Corticosteroid Start: take 1 spray(s) nasal route at bedtime fluticasone (FLONASE) 50 mcg/actuation nasal spray instill 1 spray into each nostril at bedtime 16 g 5 01/02/2020 Active Comment on above: instill 1 spray into each nostril at bedtime furosemide 20 mg oral tablet (20 sources) Loop Diuretic Start: End: take 1 tablet by mouth twice daily furosemide (LASIX) 20 mg tablet Indications: Leg swelling take 1 tablet by mouth twice a day 180 tablet 10/07/2021 Active Start: 04-11-2020 End: 10-08-2020 take 1 tablet by mouth twice daily furosemide (LASIX) 20 mg tablet Indications: Leg swelling Take 1 tablet by mouth twice daily. 180 tablet 1 04/11/2020 10/08/2020 Discontinued Comment on above: [facility] hydrOX[facility]zine pamoate 25 mg oral capsule (20 sources) Antihistamine Start: 09-26-19 take 1 capsule by mouth four times daily as needed for anxiety hydrOXYzine pamoate (VISTARIL) 25 mg capsule Indications: Anxiety , Tremor Take 1 capsule by mouth four times daily as needed for anxiety for up to 30 doses. 30 capsule 09/25/2020 Active Comment on above: Take 1 capsule by [facility] four times daily as needed for anxiety for up to 30 doses. levothyroxine sodium 0.1 mg oral tablet (20 sources) l-Thyroxine Start: 05-30-19 23 take 1 tablet by mouth once daily levothyroxine (SYNTHROID) 100 mcg tablet Indications: Acquired hypothyroidism take 1 tablet by mouth once daily 90 tablet 3 05/29/2022 Active Start: 06-01-2021 take 1 tablet by viola once daily levothyroxine (SYNTHROID) 100 mcg tablet Indications: Acquired hypothyroidism take 1 tablet by mouth once daily 90 tablet 3 06/01/2021 Active Start: 06-21-2020 End: 06-25-2020 take 1 tablet by mouth once daily levothyroxine (SYNTHROID) 88 mcg tablet Indications: Acquired hypothyroidism Take 1 tablet by mouth once daily. 90 tablet 3 06/21/2020 06/25/2020 Discontinued (Dosage adjustment) Comment on above: take 1 tablet by viola once daily magnesium oxide 400 mg oral tablet (20 sources) Start: 1 End: 2 take 1 tablet by mouth once daily magnesium oxide (MAG-OX) 400 mg (241.3 mg magnesium) tablet take 1 tablet by mouth once daily 90 tablet 06/20/2021 Active Comment on above: Take 1 tablet by viola once daily. take 1 tablet by viola once daily omeprazole 20 mg delayed release oral capsule (20 sources) Proton Pump Inhibitor Start: 0 End: 1 take 1 capsule by mouth twice daily omeprazole (PRILOSEC) 20 mg capsule take 1 capsule by mouth twice a day 180 capsule 3 11/18/2020 Active Comment on above: take 1 capsule by [facility] twice a day pantoprazole (8 sources) Proton Pump Inhibitor take 1 capsule by mouth once daily pantoprazole sodium (PROTONIX ORAL) Take 1 capsule by mouth once daily. Active pantoprazole sod ium (PROTONIX ORAL) Take by mouth. Active pantoprazole sod ium (PROTONIX ORAL) Take by mouth. 0 Active polymyxin b 91802 unt/ml / trimethoprim 1 mg/ml ophthalmic solution (14 sources) Dihydrofolate Reductase Inhibitor Antibacterial, Polymyxin-class Antibacterial Start: 10-09-2022 take 1 drop(s) into the eye(s) three times daily trimethoprim-polymyxin (POLYTRIM) 10,000 unit- 1 mg/mL ophthalmic solution Use 1 Drop in the left eye three times daily. 10 mL 10/09/2022 Active Comment on above: Use 1 Drop in the le ft eye three times daily. microencapsulated potassium chloride 20 meq extended release oral tablet (20 sources) Start: 03-20-2021 End: 09-01-2021 take 1 tablet by mouth four times daily potassium chloride ER (K-DUR, KLOR-CON) 20 mEq tablet Indications: Hypokalemia take 1 tablet by mouth four times a day 120 tablet 2 09/01/2021 Active Comment on above: Take 1 tablet by viola th four times daily. take 1 tablet by viola th four times a day ramelteon 8 mg oral tablet (11 sources) Melatonin Receptor Agonist Start: 04-09-2023 take 1 tablet by mouth at bedtime ramelteon (ROZEREM) 8 mg tablet take 1 tablet by mouth at bedtime if needed sleep 04/09/2023 Active Comment on above: take 1 tablet by viola th at bedtime if needed sleep spironolactone 25 mg oral tablet (20 sources) Aldosterone Antagonist Start: 04-04-2021 End: 06-02-2021 take 0.5 tablet by mouth once daily spironolactone (ALDACTONE) 25 mg tablet Indications: Hypokalemia , Swelling take 1/2 tablet by mouth once daily 15 tablet 1 06/02/2021 Active Start: 03-04-2020 End: 04-04-2021 take 1 tablet by mouth once daily spironolactone (ALDACTONE) 100 mg tablet Indications: Essential hypertension take 1 tablet by mouth once daily 90 tablet 3 03/04/2020 04/04/2021 Discontinued Comment on above: take 1/2 tablet by m outh once daily Take 0.5 tablets by mouth once daily. suvorexant 10 mg oral tablet (11 sources) Orexin Receptor Antagonist Start: 06-02-19 take 1 tablet by mouth once daily at bedtime BELSOMRA 10 mg tab Take 1 tablet by mouth daily at bedtime. 06/02/2023 Active Comment on above: Take 1 tablet by viola daily at bedtime. venlafaxine 75 mg oral tablet (20 sources) Serotonin and Norepinephrine Reuptake Inhibitor Start: 08-18-19 20 take 3 tablets by mouth once daily venlafaxine (EFFEXOR) 75 mg tablet Take 3 tablets by mouth once daily. 180 tablet 3 08/18/2019 Active Comment on above: Take 3 tablets by mo [facility] once daily. vitamin b12 1 mg oral tablet (20 sources) Vitamin B12 Start: 03-16-19 24 take 1 tablet by mouth once daily cyanocobalamin (VITAMIN B-12) 1,000 mcg tab Indications: Vitamin B12 deficiency take 1 tablet by mouth once daily 90 tablet 1 03/16/2023 Active Start: 04-16-2020 End: 07-21-2022 take 1 tablet by mouth once daily cyanocobalamin (VITAMIN B-12) 1,000 mcg tab Indications: Vitamin B12 deficiency take 1 tablet by mouth once daily 90 tablet 1 07/21/2022 Active Comment on above: take 1 tablet by viola once daily vortioxetine 20 mg oral tablet (11 sources) Start: 4 take 1 tablet by mouth once daily for depression TRINTELLIX 20 mg tablet take 1 tablet by mouth once daily AT THE SAME TIME EACH DAY for depression 05/10/2023 Active Comment on above: take 1 tablet by viola once daily AT THE SAME TIME EACH DAY for depression zolpidem tartrate 5 mg oral tablet (20 sources) gamma-Aminobutyric Acid-ergic Agonist Start: 8 take 1 tablet by mouth once daily at bedtime zolpidem (AMBIEN) 5 mg tablet Take 5 mg by mouth daily at bedtime. 08/20/2017 Active Comment on above: Take 5 mg by mouth d aily at bedtime. Completed/Discontinued Medications Medication Drug Class(es) Dates Sig (Normalized) Sig (Original) 24 hr amphetamine aspartate 5 mg / amphetamine sulfate 5 mg / dextroamphetamine saccharate 5 mg / dextroamphetamine sulfate 5 mg extended release oral capsule (1 source) Central Nervous System Stimulant Start: 06-18-2020 End: 07-16-2020 take 1 capsule by mouth twice daily amphetamine-dextro amphetamine XR (ADDERALL XR) 20 mg 24 hr capsule Indications: Attention deficit hyperactivity disorder (ADHD), unspecified ADHD type Take 1 capsule by mouth twice daily for 30 days. 60 capsule 06/18/2020 07/16/2020 Discontinued doxepin hydrochloride 10 mg oral capsule (10 sources) Tricyclic Antidepressant Start: 09-24-2021 End: 10-09-2022 take 1 capsule by mouth once daily at bedtime doxepin capsule 10 mg Take 1 capsule by mouth daily at bedtime. 90 capsule 0 10/30/2021 10/09/2022 Discontinued (Discontinued by another Health Care Provider) Comment on above: Take 1 capsule by [facility] daily at bedtime. Take 10 mg by mouth daily at bedtime. iv contrast (will be provided with radiology test) (1 source) Start: 07-17-2022 End: 07-18-2022 iv contrast (will be provided with radiology test) CT PANCREAS W Inject, intravenously, once for 1 dose.No IV access, insert saline lock prior to the beginning of sedation, infusion, injection of imaging exam. Discontinue saline lock post exam. If Pt. has a central line or IVAD, may access for administration according to line specific nursing protocol. Once exam is complete flush line and de-access according to line specific nursing protocol in the CT contrast administration guidelines link. 1 Each 0 07/17/2022 07/18/2022 Comment on above: CT PANCREAS W Inject , intravenously, once for 1 dose.No IV access, insert saline lock prior to the beginning of sedation, infusion, injection of imaging exam. Discontinue saline lock post exam. If Pt. has a central line or IVAD, may access for administration according to line specific nursing protocol. Once exam is complete flush line and de-access according to line specific nursing protocol in the CT contrast administration guidelines link. mupirocin 0.02 mg/mg topical ointment (16 sources) RNA Synthetase Inhibitor Antibacterial Start: 03-11-2020 End: 10-09-2022 mupirocin (BACTROBAN) 2 % ointment Indications: Open wound of skin Apply 1 application to affected area once daily. 22 g 03/11/2020 10/09/2022 Discontinued (Course of therapy completed) Comment on above: Apply 1 application to affected area once daily. predniSONE 50 mg oral tablet (4 sources) Start: 07-01-2022 End: 10-09-2022 predniSONE (DELTASONE) 50 mg Take 1 tablet by mouth once daily. CT allergy Prednisone 50 mg po [address] scan , [address] scan + [address] scan 3 tablet 0 07/01/2022 10/09/2022 Discontinued (Course of therapy completed) Comment on above: Take 1 tablet by viola th once daily. CT allergy Prednisone 50 mg po [address] scan , [address] scan + [address] scan Problems Active Problems Problem Classification Problem Date Documented Da te Episodic/Chronic Abdominal pain (1 source) Epigastric pain; Translations: [Epigastric pain] Onset: 5 Episodic Anxiety disorders (20 sources) Generalized anxiety disorder; Translations: [Generalized anxiety disorder] Onset: 0 08-05-2018 Chronic Attention-deficit, conduct, and disruptive behavior disorders (20 sources) Attention deficit hyperactivity disorder; Translations: [Attention-deficit hyperactivity disorder, unspecified type] Onset: 4 08-05-2018 Chronic Cancer of pancreas (1 source) Malignant tumor of head of pancreas; Translations: [Malignant neoplasm of head of pancreas] 07-17-2022 Chronic Chronic kidney disease (20 sources) Chronic kidney disease stage 3; Translations: [CKD (chronic kidney disease) stage 3, GFR 30-59 ml/min] Onset: 4 03-03-2021 Chronic Chronic kidney disease (4 sources) Chronic kidney disease; Translations: [Stage 3b chronic kidney disease (HCC)] Onset: 1 Chronic ulcer of skin (20 sources) Traumatic ulcer; Translations: [Non-pressure chronic ulcer of skin of other sites with fat layer exposed] Onset: 1 04-14-2020 Chronic Complications of surgical procedures or medical care (20 sources) Post-surgical hypoparathyroidism; Translations: [Postprocedural hypoparathyroidism] Onset: 7 08-05-2018 Chronic Disorders of lipid metabolism (20 sources) Hyperlipidemia; Translations: [Hyperlipidemia, unspecified] Onset: 5 03-03-2021 Chronic Esophageal disorders (20 sources) Gastroesophageal reflux disease; Translations: [Gastro-esophageal reflux disease without esophagitis] Onset: 9 10-21-2018 Chronic Essential hypertension (20 sources) Essential hypertension; Translations: [Essential (primary) hypertension] Onset: 8 06-25-2020 Chronic Fluid and electrolyte disorders (20 sources) Hypokalemia; Translations: [Hypokalemia] Onset: 8 Resolved: 5 Episodic Inflammation; infection of eye (except that caused by tuberculosis or sexually transmitteddisease) (1 source) Acute conjunctivitis of left eye; Translations: [Unspecified acute conjunctivitis, left eye] 10-09-2022 Episodic Mood disorders (20 sources) Depressive disorder; Translations: [Depression] Onset: 4 08-05-2018 Chronic Nonspecific chest pain (1 source) Chest pain, unspecified; Translations: [Chest pain, unspecified] Onset: 5 Episodic Nutritional deficiencies (1 source) Vitamin D deficiency, unspecified; Translations: [Vitamin D deficiency, unspecified] Onset: 5 Chronic Osteoarthritis (20 sources) Arthritis of left knee; Translations: [Unilateral primary osteoarthritis, left knee] Onset: 9 03-09-2018 Chronic Other connective tissue disease (1 source) Swelling of lower limb; Translations: [Other specified soft tissue disorders] Episodic Other connective tissue disease (4 sources) Pain in right foot; Translations: [Pain in right foot] 06-22-2023 Episodic Other connective tissue disease (2 sources) Plantar fasciitis; Translations: [Plantar fascial fibromatosis] 03-24-2024 Episodic Other connective tissue disease (1 source) Plantar fascial fibromatosis; Translations: [Plantar fasciitis] Onset: 5 Episodic Other endocrine disorders (20 sources) Multiple endocrine neoplasia, type 1; 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] Onset: 8 03-03-2021 Chronic Other endocrine disorders (1 source) 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; Translations: [MEN1 (multiple endocrine neoplasia) (HCC)] Onset: 1 Chronic Other gastrointestinal disorders (20 sources) History of bypass of stomach; Translations: [Bariatric surgery status] 06-28-2012 Episodic Other injuries and conditions due to external causes (1 source) Unspecified injury of left elbow, initial encounter; Translations: [Unspecified injury of left elbow, initial encounter] Onset: 5 Episodic Other injuries and conditions due to external causes (1 source) Unspecified injury of muscle(s) and tendon(s) of the rotator cuff of left shoulder, initial encounter; Translations: [Unspecified injury of muscle(s) and tendon(s) of the rotator cuff of left shoulder, initial encounter] Onset: 5 Episodic Other non-traumatic joint disorders (1 source) Arthralgia of the ankle and/or foot; Translations: [Pain in right ankle and joints of right foot] 06-21-2020 Episodic Other non-traumatic joint disorders (1 source) Pain in left shoulder; Translations: [Pain in left shoulder] Onset: 5 Episodic Other nutritional; endocrine; and metabolic disorders (20 sources) Body mass index 40+ - severely obese; Translations: [Morbid (severe) obesity due to excess calories] Onset: 8 11-24-2017 Chronic Other nutritional; endocrine; and metabolic disorders (1 source) Morbid (severe) obesity due to excess calories; Translations: [Obesity, Class III, BMI 40-49.9 (morbid obesity) (FORMERLY [facility])] Onset: 8 Chronic Other nutritional; endocrine; and metabolic disorders (2 sources) Hypercalcemia; Translations: [Hypercalcemia] Onset: 5 Chronic Other nutritional; endocrine; and metabolic disorders (1 source) Hypocalcemia; Translations: [Hypocalcemia] Onset: 5 Chronic Other screening for suspected conditions (not mental disorders or infectious disease) (1 source) Abnormal findings on diagnostic imaging of other specified body structures; Translations: [Abnormal findings on diagnostic imaging of other specified body structures] Onset: 4 Chronic Other screening for suspected conditions (not mental disorders or infectious disease) (1 source) Patient encounter status; Translations: [Encounter for screening mammogram for malignant neoplasm of breast] Episodic Other upper respiratory infections (1 source) Upper respiratory infection; Translations: [Acute upper respiratory infection, unspecified] 10-09-2022 Episodic Residual codes; unclassified (20 sources) Obstructive sleep apnea syndrome; Translations: [Obstructive sleep apnea (adult) (pediatric)] Onset: 7 08-05-2018 Chronic Residual codes; unclassified (1 source) Obstructive sleep apnea (adult) (pediatric); Translations: [Obstructive sleep apnea (adult) (pediatric)] Onset: 4 Chronic Residual codes; unclassified (2 sources) Swelling; Translations: [Edema, unspecified] Episodic Residual codes; unclassified (1 source) Procedure not done; Translations: [Procedure and treatment not carried out, unspecified reason] 08-27-2023 Episodic Residual codes; unclassified (1 source) Insomnia, unspecified; Translations: [Insomnia, unspecified] Onset: 5 Episodic Residual codes; unclassified (1 source) Procedure and treatment not carried out due to patient leaving prior to being seen by health care provider; Translations: [Procedure and treatment not carried out due to patient leaving prior to being seen by health care provider] Onset: 5 Episodic Septicemia (except in labor) (1 source) Sepsis, unspecified organism; Translations: [Sepsis, unspecified organism] Onset: 5 Episodic Spondylosis; intervertebral disc disorders; other back problems (20 sources) Sacroiliac disorder; Translations: [Spondylosis without myelopathy or radiculopathy, sacral and sacrococcygeal region] Onset: 9 07-13-2018 Chronic Thyroid disorders (20 sources) Hypothyroidism; Translations: [Hypothyroidism, unspecified] Onset: 9 09-30-2018 Chronic Unclassified (2 sources) Elevation of levels of liver transaminase levels; Translations: [Elevation of levels of liver transaminase levels] Onset: 5 Unclassified (1 source) Cough, unspecified; Translations: [Cough, unspecified] Onset: 4 Past or Other Problems Problem Classification Problem Date Documented Date Episodic/Chronic Acute and unspecified renal failure (1 source) Acute kidney failure, unspecified; Translations: [Acute kidney failure, unspecified] Onset: 05-18-2024 Episodic Calculus of urinary tract (20 sources) Kidney stone; Translations: [Calculus of kidney] Onset: 11-24-2017 11-24-2017 Episodic Complication of device; implant or graft (10 sources) Disorders of musculoskeletal implants and repairs; Translations: [Other specified complication of internal orthopedic prosthetic devices, implants and grafts, initial encounter] Onset: 01-21-2011 Resolved: 01-31-2014 01-31-2014 Episodic Deficiency and other anemia (20 sources) Iron deficiency anemia; Translations: [Iron deficiency anemia, unspecified] Onset: 09-02-2018 09-02-2018 Episodic Deficiency and other anemia (1 source) Anemia, unspecified; Translations: [Anemia, unspecified] Onset: 04-07-2024 Episodic Diabetes mellitus without complication (10 sources) Impaired fasting glycemia; Translations: [Impaired fasting glucose] Onset: 05-08-2014 Resolved: 10-03-2016 10-03-2016 Episodic Disorders usually diagnosed in infancy, childhood, or adolescence (10 sources) Eating disorder; Translations: [Other disorders of eating] Onset: 01-07-2010 Resolved: 04-11-2014 04-11-2014 Chronic E Codes: Fall (1 source) Unspecified fall, initial encounter; Translations: [Unspecified fall, initial encounter] Onset: 04-02-2024 Episodic Fracture of upper limb (10 sources) Fracture of clavicle; Translations: [Fracture of unspecified part of right clavicle, initial encounter for closed fracture] Onset: 11-15-2015 Resolved: 10-01-2016 10-01-2016 Episodic Genitourinary symptoms and ill-defined conditions (1 source) Retention of urine, unspecified; Translations: [Retention of urine, unspecified] Onset: 02-28-2024 Episodic Joint disorders and dislocations; trauma-related (20 sources) Subluxation of sternoclavicular joint; Translations: [Unspecified subluxation of unspecified sternoclavicular joint, initial encounter] Onset: 07-16-2016 Resolved: 11-28-2017 10-01-2016 Episodic Malaise and fatigue (2 sources) Weakness; Translations: [Weakness] Onset: 05-18-2024 Episodic Menstrual disorders (20 sources) Dysmenorrhea; Translations: [Dysmenorrhea, unspecified] Resolved: 02-25-2009 02-25-2009 Chronic Nutritional deficiencies (20 sources) Cobalamin deficiency; Translations: [Deficiency of other specified B group vitamins] Onset: 08-15-2010 08-15-2010 Episodic Other bone disease and musculoskeletal deformities (10 sources) Nonunion of fracture; Translations: [Nonunion of fracture] Onset: 12-10-2010 Resolved: 01-31-2014 01-31-2014 Episodic Other connective tissue disease (1 source) Pain in right foot; Translations: [Foot pain, right] Onset: 07-08-2023 Episodic Other connective tissue disease (2 sources) Rhabdomyolysis; Translations: [Rhabdomyolysis] Onset: 04-02-2024 Episodic Other connective tissue disease (1 source) Pain in right leg; Translations: [Pain in right leg] Onset: 04-05-2024 Episodic Other endocrine disorders (12 sources) Hyperparathyroidism; Translations: [Hyperparathyroidism, unspecified] Onset: 11-26-2005 Resolved: 01-07-2007 10-21-2022 Chronic Other endocrine disorders (10 sources) Primary hyperparathyroidism; Translations: [Primary hyperparathyroidism] Onset: 06-15-2005 Resolved: 01-07-2007 01-07-2007 Chronic Other female genital disorders (10 sources) Atypical endometrial hyperplasia; 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]] Onset: 01-15-2006 Resolved: 05-09-2008 05-09-2008 Chronic Other female genital disorders (10 sources) Complex endometrial hyperplasia without atypia; Translations: [Benign endometrial hyperplasia] Onset: 05-09-2008 Resolved: 02-25-2009 02-25-2009 Chronic Other female genital disorders (2 sources) Personal history of cervical dysplasia; Translations: [Personal history of cervical dysplasia] Onset: 07-14-2017 Episodic Other lower respiratory disease (1 source) Shortness of breath; Translations: [Shortness of breath] Onset: 11-15-2023 Episodic Other nutritional; endocrine; and metabolic disorders (10 sources) Hypocalcemia; Translations: [Hypocalcemia] Onset: 12-19-2014 Resolved: 10-01-2016 03-03-2021 Chronic Other skin disorders (10 sources) Hirsutism; Translations: [Hirsutism] Onset: 06-06-2010 Resolved: 04-11-2014 04-11-2014 Episodic Pancreatic disorders (not diabetes) (20 sources) Mass of pancreas; Translations: [Other specified diseases of pancreas] Onset: 09-19-2014 10-01-2016 Episodic Residual codes; unclassified (1 source) Altered mental status, unspecified; Translations: [Altered mental status, unspecified] Onset: 05-31-2024 Episodic Residual codes; unclassified (1 source) Edema, unspecified; Translations: [Edema, unspecified] Onset: 04-05-2024 Episodic Skin and subcutaneous tissue infections (10 sources) Disorder of nail; Translations: [Cellulitis of unspecified toe] Onset: 09-04-2010 Resolved: 01-31-2014 01-31-2014 Episodic Skull and face fractures (1 source) Fracture of tooth (traumatic), initial encounter for closed fracture; Translations: [Fracture of tooth (traumatic), initial encounter for closed fracture] Onset: 05-23-2024 Episodic Spondylosis; intervertebral disc disorders; other back problems (10 sources) Chronic sacroiliac joint pain; Translations: [Sacrococcygeal disorders, not elsewhere classified] Onset: 07-13-2018 Resolved: 09-12-2018 09-12-2018 Episodic Results Test Name Value Interpretation Reference Range Facility Basic Metabolic Profile (BMP )on 09-04-2024 BUN/CRE 11.9 RATIO Normal 10-20 [facility] Comment on above: Performed By: #### L 500.2500 ####[facility] [address] [place], [address] Calcium [Mass/Vol] 11.3 mg/dL High 7.6-11.0 [facility] Comment on above: Performed By: #### L 500.2500 ####[facility] [address] [place], [address] Chloride [Moles/Vol] 100 mmol/L Normal 98-108 [facility] Comment on above: Performed By: #### L 500.2500 ####[facility] [address] [place], [address] CO2 [Moles/Vol] 27.7 mmol/L Normal 21.0-32.0 [facility] Comment on above: Performed By: #### L 500.2500 ####[facility] [address] [place], [address] Creatinine [Mass/Vol] 1.38 mg/dL High 0.70-1.20 [facility] Comment on above: Performed By: #### L 500.2500 ####[facility] [address] [place], [address] GAP 10 Normal 5-15 [facility] Comment on above: Performed By: #### L 500.2500 ####[facility] [address] [place], [address] GFR/1.73 sq M.predicted among non-blacks MDRD (S/P/Bld) [Vol rate/Area] 44 mL/min/{1.73_m2} Low >60 [facility] Comment on above: Result Comment: mL/m in/1.73m2 CKD-EPI Creatinine Equation (2020) Performed By: #### L 500.2500 ####[facility] [address] [place], [address] Glucose [Mass/Vol] 100 mg/dL High 70-99 [facility] Comment on above: Performed By: #### L 500.2500 ####[facility] [address] [place], [address] Potassium [Moles/Vol] 4.4 mmol/L Normal 3.3-5.1 [facility] Comment on above: Performed By: #### L 500.2500 ####[facility] [address] [place], [address] Sodium [Moles/Vol] 138 mmol/L Normal 133-145 [facility] Comment on above: Performed By: #### L 500.2500 ####[facility] [address] [place], [address] Urea nitrogen [Mass/Vol] 16 mg/dL Normal 4-19 [facility] Comment on above: Performed By: #### L 500.2500 ####[facility] [address] [place], [address] Comprehensive Metabolic Prof ilon 08-24-2024 Albumin [Mass/Vol] 4.0 g/dL Normal 3.5-5.0 [facility] Comment on above: Performed By: #### L 500.4050 ####[facility] [address] [place], [address] Albumin/Globulin [Mass ratio] 1.3 {ratio} Normal 0.9-2.4 [facility] Comment on above: Performed By: #### L 500.4050 ####[facility] [address] [place], [address] ALK PHOS 87 U/L Normal 35-104 [facility] Comment on above: Performed By: #### L 500.4050 ####[facility] [address] [place], [address] ALT [Catalytic activity/Vol] 8 U/L Normal <=34 [facility] Comment on above: Performed By: #### L 500.4050 ####[facility] [address] [place], [address] AST [Catalytic activity/Vol] 16 U/L Normal <=31 [facility] Comment on above: Performed By: #### L 500.4050 ####[facility] [address] [place], [address] Bilirubin [Mass/Vol] 0.48 mg/dL Normal 0.00-1.30 [facility] Comment on above: Performed By: #### L 500.4050 ####[facility] [address] [place], [address] BUN/CRE 14.1 RATIO Normal 10-20 [facility] Comment on above: Performed By: #### L 500.4050 ####[facility] [address] [place], [address] Calcium [Mass/Vol] 10.1 mg/dL Normal 7.6-11.0 [facility] Comment on above: Performed By: #### L 500.4050 ####[facility] [address] [place], [address] Chloride [Moles/Vol] 103 mmol/L Normal 98-108 [facility] Comment on above: Performed By: #### L 500.4050 ####[facility] [address] [place], [address] CO2 [Moles/Vol] 24.3 mmol/L Normal 21.0-32.0 [facility] Comment on above: Performed By: #### L 500.4050 ####[facility] [address] [place], [address] Creatinine [Mass/Vol] 1.37 mg/dL High 0.70-1.20 [facility] Comment on above: Performed By: #### L 500.4050 ####[facility] [address] [place], [address] GAP 11 Normal 5-15 [facility] Comment on above: Performed By: #### L 500.4050 ####[facility] [address] [place], [address] GFR/1.73 sq M.predicted among non-blacks MDRD (S/P/Bld) [Vol rate/Area] 45 mL/min/{1.73_m2} Low >60 [facility] Comment on above: Result Comment: mL/m in/1.73m2 CKD-EPI Creatinine Equation (2020) Performed By: #### L 500.4050 ####[facility] [address] [place], [address] Globulin (S) [Mass/Vol] 3.0 g/dL Normal 2.2-4.2 [facility] Comment on above: Performed By: #### L 500.4050 ####[facility] [address] [place], [address] Glucose [Mass/Vol] 113 mg/dL High 70-99 [facility] Comment on above: Performed By: #### L 500.4050 ####[facility] [address] [place], [address] Potassium [Moles/Vol] 4.3 mmol/L Normal 3.3-5.1 [facility] Comment on above: Performed By: #### L 500.4050 ####[facility] [address] [place], [address] Sodium [Moles/Vol] 139 mmol/L Normal 133-145 [facility] Comment on above: Performed By: #### L 500.4050 ####[facility] [address] [place], [address] T PROT 7.0 g/dL Normal 5.9-8.4 [facility] Comment on above: Performed By: #### L 500.4050 ####[facility] [address] [place], [address] Urea nitrogen [Mass/Vol] 19 mg/dL Normal 4-19 [facility] Comment on above: Performed By: #### L 500.4050 ####[facility] [address] [place], [address] [facility] 08-16-2024 Albumin [Mass/Vol] 3.9 g/dL Normal 3.5-5.0 [facility] Comment on above: Performed By: #### L 500.4050 ####[facility] [address] [place], [address] Albumin/Globulin [Mass ratio] 1.1 {ratio} Normal 0.9-2.4 [facility] Comment on above: Performed By: #### L 500.4050 ####[facility] [address] [place], [address] ALK PHOS 98 U/L Normal 35-104 [facility] Comment on above: Performed By: #### L 500.4050 ####[facility] [address] [place], [address] ALT [Catalytic activity/Vol] 14 U/L Normal <=34 [facility] Comment on above: Performed By: #### L 500.4050 ####[facility] [address] [place], [address] AST [Catalytic activity/Vol] 18 U/L Normal <=31 [facility] Comment on above: Performed By: #### L 500.4050 ####[facility] [address] [place], [address] Bilirubin [Mass/Vol] 0.30 mg/dL Normal 0.00-1.30 [facility] Comment on above: Performed By: #### L 500.4050 ####[facility] [address] [place], [address] BUN/CRE 11.9 RATIO Normal 10-20 [facility] Comment on above: Performed By: #### L 500.4050 ####[facility] [address] [place], [address] Calcium [Mass/Vol] 10.5 mg/dL Normal 7.6-11.0 [facility] Comment on above: Performed By: #### L 500.4050 ####[facility] [address] [place], [address] Chloride [Moles/Vol] 103 mmol/L Normal 98-108 [facility] Comment on above: Performed By: #### L 500.4050 ####[facility] [address] [place], [address] CO2 [Moles/Vol] 24.0 mmol/L Normal 21.0-32.0 [facility] Comment on above: Performed By: #### L 500.4050 ####[facility] [address] [place], [address] Creatinine [Mass/Vol] 1.49 mg/dL High 0.70-1.20 [facility] Comment on above: Performed By: #### L 500.4050 ####[facility] [address] [place], [address] GAP 12 Normal 5-15 [facility] Comment on above: Performed By: #### L 500.4050 ####[facility] [address] [place], [address] GFR/1.73 sq M.predicted among non-blacks MDRD (S/P/Bld) [Vol rate/Area] 40 mL/min/{1.73_m2} Low >60 [facility] Comment on above: Result Comment: mL/m in/1.73m2 CKD-EPI Creatinine Equation (2020) Performed By: #### L 500.4050 ####[facility] [address] [place], [address] Globulin (S) [Mass/Vol] 3.4 g/dL Normal 2.2-4.2 [facility] Comment on above: Performed By: #### L 500.4050 ####[facility] [address] [place], [address] Glucose [Mass/Vol] 93 mg/dL Normal 70-99 [facility] Comment on above: Performed By: #### L 500.4050 ####[facility] [address] [place], [address] Potassium [Moles/Vol] 4.4 mmol/L Normal 3.3-5.1 [facility] Comment on above: Performed By: #### L 500.4050 ####[facility] [address] [place], [address] Sodium [Moles/Vol] 139 mmol/L Normal 133-145 [facility] Comment on above: Performed By: #### L 500.4050 ####[facility] [address] [place], [address] T PROT 7.3 g/dL Normal 5.9-8.4 [facility] Comment on above: Performed By: #### L 500.4050 ####[facility] [address] [place], [address] Urea nitrogen [Mass/Vol] 18 mg/dL Normal 4-19 [facility] Comment on above: Performed By: #### L 500.4050 ####[facility] [address] [place], [address] Basic Metabolic Profile (BMP )on 08-07-2024 BUN/CRE 12.7 RATIO Normal 10-20 [facility] Comment on above: Performed By: #### L 506.1001, L500.2500 ####[facility] [address] [place], [address] Calcium [Mass/Vol] 8.3 mg/dL Normal 7.6-11.0 [facility] Comment on above: Performed By: #### L 506.1001, L500.2500 ####[facility] [address] [place], [address] Chloride [Moles/Vol] 99 mmol/L Normal 98-108 [facility] Comment on above: Performed By: #### L 506.1001, L500.2500 ####[facility] [address] [place], [address] CO2 [Moles/Vol] 26.5 mmol/L Normal 21.0-32.0 [facility] Comment on above: Performed By: #### L 506.1001, L500.2500 ####[facility] [address] [place], [address] Creatinine [Mass/Vol] 1.65 mg/dL High 0.70-1.20 [facility] Comment on above: Performed By: #### L 506.1001, L500.2500 ####[facility] [address] [place], [address] GAP 14 Normal 5-15 [facility] Comment on above: Performed By: #### L 506.1001, L500.2500 ####[facility] [address] [place], [address] GFR/1.73 sq M.predicted among non-blacks MDRD (S/P/Bld) [Vol rate/Area] 36 mL/min/{1.73_m2} Low >60 [facility] Comment on above: Result Comment: mL/m in/1.73m2 CKD-EPI Creatinine Equation (2020) Performed By: #### L 506.1001, L500.2500 ####[facility] [address] [place], [address] Glucose [Mass/Vol] 101 mg/dL High 70-99 [facility] Comment on above: Performed By: #### L 506.1001, L500.2500 ####[facility] [address] [place], [address] Potassium [Moles/Vol] 3.7 mmol/L Normal 3.3-5.1 [facility] Comment on above: Performed By: #### L 506.1001, L500.2500 ####[facility] [address] [place], [address] Sodium [Moles/Vol] 140 mmol/L Normal 133-145 [facility] Comment on above: Performed By: #### L 506.1001, L500.2500 ####[facility] [address] [place], [address] Urea nitrogen [Mass/Vol] 21 mg/dL High 4-19 [facility] Comment on above: Performed By: #### L 506.1001, L500.2500 ####[facility] [address] [place], [address] Vitamin D,25 Hydroxyon 08-07 Vitamin D 25-OH 28.3 ng/mL Low 30-100 [facility] Comment on above: Result Comment: Carol min D StatusDeficiency: <20 ng/mL (50nmol/L)Insufficiency: 20-30 ng/mL (50-75 nmol/L)Sufficiency: 30-100 ng/mL (75-250 nmol/L)Toxicity: >100 ng/mL (>250 nmol/L) Performed By: #### L 506.1001, L500.2500 ####[facility] [address] [place], [address] Basic Metabolic Profile (BMP )on 08-01-2024 BUN/CRE 9.2 RATIO Low 10-20 [facility] Comment on above: Performed By: #### L 506.1001, L500.2500 ####[facility] [address] [place], [address] Calcium [Mass/Vol] 10.4 mg/dL Normal 7.6-11.0 [facility] Comment on above: Performed By: #### L 506.1001, L500.2500 ####[facility] [address] [place], [address] Chloride [Moles/Vol] 100 mmol/L Normal 98-108 [facility] Comment on above: Performed By: #### L 506.1001, L500.2500 ####[facility] [address] [place], [address] CO2 [Moles/Vol] 24.5 mmol/L Normal 21.0-32.0 [facility] Comment on above: Performed By: #### L 506.1001, L500.2500 ####[facility] [address] [place], [address] Creatinine [Mass/Vol] 1.86 mg/dL High 0.70-1.20 [facility] Comment on above: Performed By: #### L 506.1001, L500.2500 ####[facility] [address] [place], [address] GAP 14 Normal 5-15 [facility] Comment on above: Performed By: #### L 506.1001, L500.2500 ####[facility] [address] [place], [address] GFR/1.73 sq M.predicted among non-blacks MDRD (S/P/Bld) [Vol rate/Area] 31 mL/min/{1.73_m2} Low >60 [facility] Comment on above: Result Comment: mL/m in/1.73m2 CKD-EPI Creatinine Equation (2020) Performed By: #### L 506.1001, L500.2500 ####[facility] [address] [place], [address] Glucose [Mass/Vol] 109 mg/dL High 70-99 [facility] Comment on above: Performed By: #### L 506.1001, L500.2500 ####[facility] [address] [place], [address] Potassium [Moles/Vol] 3.3 mmol/L Normal 3.3-5.1 [facility] Comment on above: Performed By: #### L 506.1001, L500.2500 ####[facility] [address] [place], [address] Sodium [Moles/Vol] 139 mmol/L Normal 133-145 [facility] Comment on above: Performed By: #### L 506.1001, L500.2500 ####[facility] [address] [place], [address] Urea nitrogen [Mass/Vol] 17 mg/dL Normal 4-19 [facility] Comment on above: Performed By: #### L 506.1001, L500.2500 ####[facility] [address] [place], [address] Vitamin D,25 Hydroxyon 08-01 Vitamin D 25-OH 33.3 ng/mL Normal 30-100 [facility] Comment on above: Result Comment: Carol min D StatusDeficiency: <20 ng/mL (50nmol/L)Insufficiency: 20-30 ng/mL (50-75 nmol/L)Sufficiency: 30-100 ng/mL (75-250 nmol/L)Toxicity: >100 ng/mL (>250 nmol/L) Performed By: #### L 506.1001, L500.2500 ####[facility] [address] [place], [address] Emergency Department Summary on 07-30-2024 Emergency Department Summary Normal [facility] Basic Metabolic Profile (BMP )on 07-28-2024 BUN/CRE 12.1 RATIO Normal 10-20 [facility] Comment on above: Order Comment: PLEAS E SEND RESULTS TO LESA CARTER ALSO Performed By: #### L 509.1000, L500.2500 ####[facility] [address] [place], [address] Calcium [Mass/Vol] 11.8 mg/dL High 7.6-11.0 [facility] Comment on above: Order Comment: PLEAS E SEND RESULTS TO LESA CARTER ALSO Performed By: #### L 509.1000, L500.2500 ####[facility] [address] [place], [address] Chloride [Moles/Vol] 99 mmol/L Normal 98-108 [facility] Comment on above: Order Comment: PLEAS E SEND RESULTS TO LESA CARTER ALSO Performed By: #### L 509.1000, L500.2500 ####[facility] [address] [place], [address] CO2 [Moles/Vol] 26.8 mmol/L Normal 21.0-32.0 [facility] Comment on above: Order Comment: PLEAS E SEND RESULTS TO LESA CARTER ALSO Performed By: #### L 509.1000, L500.2500 ####[facility] [address] [place], [address] Creatinine [Mass/Vol] 2.00 mg/dL High 0.70-1.20 [facility] Comment on above: Order Comment: PLEAS E SEND RESULTS TO LESAFelipa CARTER ALSO Performed By: #### L 509.1000, L500.2500 ####[facility] [address] [place], [address] GAP 13 Normal 5-15 [facility] Comment on above: Order Comment: PLEAS E SEND RESULTS TO L[facility]A CARTER ALSO Performed By: #### L 509.1000, L500.2500 ####[facility] [address] [place], [address] GFR/1.73 sq M.predicted among non-blacks MDRD (S/P/Bld) [Vol rate/Area] 28 mL/min/{1.73_m2} Low >60 [facility] Comment on above: Order Comment: PLEAS E SEND RESULTS TO L[facility]A CARTER ALSO Result Comment: mL/m in/1.73m2 CKD-EPI Creatinine Equation (2020) Performed By: #### L 509.1000, L500.2500 ####[facility] [address] [place], [address] Glucose [Mass/Vol] 135 mg/dL High 70-99 [facility] Comment on above: Order Comment: PLEAS E SEND RESULTS TO LESA CARTER ALSO Performed By: #### L 509.1000, L500.2500 ####[facility] [address] [place], [address] Potassium [Moles/Vol] 3.7 mmol/L Normal 3.3-5.1 [facility] Comment on above: Order Comment: PLEAS E SEND RESULTS TO LESA CARTER ALSO Performed By: #### L 509.1000, L500.2500 ####[facility] [address] [place], [address] Sodium [Moles/Vol] 139 mmol/L Normal 133-145 [facility] Comment on above: Order Comment: PLEAS E SEND RESULTS TO LESA CARTER ALSO Performed By: #### L 509.1000, L500.2500 ####[facility] [address] [place], [address] Urea nitrogen [Mass/Vol] 24 mg/dL High 4-19 [facility] Comment on above: Order Comment: PLEAS E SEND RESULTS TO LESA CARTER ALSO Performed By: #### L 509.1000, L500.2500 ####[facility] [address] [place], [address] PTHINon 07-28-2024 PTH 4 pg/mL Low 11-61 [facility] Comment on above: Order Comment: PLEAS E SEND RESULTS TO LESA CARTER ALSO Performed By: #### L 509.1000, L500.2500 ####[facility] [address] [place], [address] MR/BMS.BPon 07-17-2024 MR/BMS.BP Normal [facility] Endocrinology Visit Reporton 06-05-2024 Endocrinology Visit Report Normal [facility] L3410.9998on 05-26-2024 [facility] Misc. COMMENT Normal . [facility] Comment on above: Order Comment: GREEN /PLASMA/ PROTECT FROM LIGHT/[id number] C Result Comment: Test Ordered: [id number] Vitamin CTest(s) 399743-Dyjivcp Cwas developed and its performance characteristicsdetermined by [facility]. It has not been cleared or approvedby the Food and Drug Administration.Vitamin C 0.3 [L ] mg/dL Reference Range: 0.4-2.0Vitamin C deficiency is generally defined as plasmaconcentrations less than 0.2 mg/dL and levels between0.2 and 0.4 mg/dL are considered low.Performed at: [address] [id number] Director: Devan Valero MD, Phone: [phone] at: [facility] [address] [place], [place] [id number] Director: Luke Weber PhD, Phone: [phone] Performed By: #### L 3410.9998 ####[facility] [address] [place], [address] Basic Metabolic Profile (BMP )on 05-23-2024 BUN Normal 4-19 [facility] Comment on above: Result Comment: CMP ORDERED BY DR. DAVIES Performed By: #### L 500.2500 ####[facility] [address] [place], [address] BUN/CRE Normal 10-20 [facility] Comment on above: Result Comment: CMP ORDERED BY DR. DAVIES Performed By: #### L 500.2500 ####[facility] [address] [place], [address] Calcium Normal 7.6-11.0 [facility] Comment on above: Result Comment: CMP ORDERED BY DR. DAVIES Performed By: #### L 500.2500 ####[facility] [address] [place], [address] CL Normal 98-108 [facility] Comment on above: Result Comment: CMP ORDERED BY DR. DAVIES Performed By: #### L 500.2500 ####[facility] [address] [place], [address] CO2 Normal 21.0-32.0 [facility] Comment on above: Result Comment: CMP ORDERED BY DR. DAVIES Performed By: #### L 500.2500 ####[facility] [address] [place], [address] CREAT,SERUM Normal 0.70-1.20 [facility] Comment on above: Result Comment: CMP ORDERED BY DR. DAVIES Performed By: #### L 500.2500 ####[facility] [address] [place], [address] eGFR Normal >60 [facility] Comment on above: Result Comment: CMP ORDERED BY DR. DAVIES Performed By: #### L 500.2500 ####[facility] [address] [place], [address] GAP Normal 5-15 [facility] Comment on above: Result Comment: CMP ORDERED BY DR. DAVIES Performed By: #### L 500.2500 ####[facility] [address] [place], [address] GLU Normal 70-99 [facility] Comment on above: Result Comment: CMP ORDERED BY DR. DAVIES Performed By: #### L 500.2500 ####[facility] [address] [place], [address] Potassium Normal 3.3-5.1 [facility] Comment on above: Result Comment: CMP ORDERED BY DR. DAVIES Performed By: #### L 500.2500 ####[facility] [address] [place], [address] Basic Metabolic Profile (BMP) Normal 133-145 [facility] Comment on above: Result Comment: CMP ORDERED BY DR. DAVIES Performed By: #### L 500.2500 ####[facility] [address] [place], [address] Comprehensive Metabolic Prof ilon 05-23-2024 Albumin [Mass/Vol] 4.0 g/dL Normal 3.5-5.0 [facility] Comment on above: Performed By: #### L 500.4050 ####[facility] [address] [place], [address] Albumin/Globulin [Mass ratio] 1.1 {ratio} Normal 0.9-2.4 [facility] Comment on above: Performed By: #### L 500.4050 ####[facility] [address] [place], [address] ALK PHOS 129 U/L High 35-104 [facility] Comment on above: Performed By: #### L 500.4050 ####[facility] [address] [place], [address] ALT [Catalytic activity/Vol] 22 U/L Normal <=34 [facility] Comment on above: Performed By: #### L 500.4050 ####[facility] [address] [place], [address] AST [Catalytic activity/Vol] 24 U/L Normal <=31 [facility] Comment on above: Performed By: #### L 500.4050 ####[facility] [address] [place], [address] Bilirubin [Mass/Vol] 0.37 mg/dL Normal 0.00-1.30 [facility] Comment on above: Performed By: #### L 500.4050 ####[facility] [address] [place], [address] BUN/CRE 11.9 RATIO Normal 10-20 [facility] Comment on above: Performed By: #### L 500.4050 ####[facility] [address] [place], [address] Calcium [Mass/Vol] 9.1 mg/dL Normal 7.6-11.0 [facility] Comment on above: Performed By: #### L 500.4050 ####[facility] [address] [place], [address] Chloride [Moles/Vol] 102 mmol/L Normal 98-108 [facility] Comment on above: Performed By: #### L 500.4050 ####[facility] [address] [place], [address] CO2 [Moles/Vol] 24.9 mmol/L Normal 21.0-32.0 [facility] Comment on above: Performed By: #### L 500.4050 ####[facility] [address] [place], [address] Creatinine [Mass/Vol] 1.61 mg/dL High 0.70-1.20 [facility] Comment on above: Performed By: #### L 500.4050 ####[facility] [address] [place], [address] GAP 14 Normal 5-15 [facility] Comment on above: Performed By: #### L 500.4050 ####[facility] [address] [place], [address] GFR/1.73 sq M.predicted among non-blacks MDRD (S/P/Bld) [Vol rate/Area] 37 mL/min/{1.73_m2} Low >60 [facility] Comment on above: Result Comment: mL/m in/1.73m2 CKD-EPI Creatinine Equation (2020) Performed By: #### L 500.4050 ####[facility] [address] [place], [address] Globulin (S) [Mass/Vol] 3.5 g/dL Normal 2.2-4.2 [facility] Comment on above: Performed By: #### L 500.4050 ####[facility] [address] [place], [address] Glucose [Mass/Vol] 82 mg/dL Normal 70-99 [facility] Comment on above: Performed By: #### L 500.4050 ####[facility] [address] [place], [address] Potassium [Moles/Vol] 4.5 mmol/L Normal 3.3-5.1 [facility] Comment on above: Performed By: #### L 500.4050 ####[facility] [address] [place], [address] Sodium [Moles/Vol] 140 mmol/L Normal 133-145 [facility] Comment on above: Performed By: #### L 500.4050 ####[facility] [address] [place], [address] T PROT 7.5 g/dL Normal 5.9-8.4 [facility] Comment on above: Performed By: #### L 500.4050 ####[facility] [address] [place], [address] Urea nitrogen [Mass/Vol] 19 mg/dL Normal 4-19 [facility] Comment on above: Performed By: #### L 500.4050 ####[facility] [address] [place], [address] Internal Medicine Office Vis iton 05-22-2024 Internal Medicine Office Visit Normal [facility] Vitamin D 1,25-Dihydroxyon 0 05-19-2024 VIT D 1,25 DIHY 40.2 pg/mL Normal 24.8-81.5 [facility] Comment on above: Result Comment: Perf ormed at: - [facility] [id number] Director: Devna Valero MD, Phone: [phone] Performed By: #### L 3449.2245 ####[facility] [address] [place], [address] Basic Metabolic Profile (BMP )on 05-18-2024 BUN/CRE 7.6 RATIO Low 10-20 [facility] Comment on above: Performed By: #### L 100.0100, L500.2500 ####[facility] [address] [place], [address] Calcium [Mass/Vol] 10.4 mg/dL Normal 7.6-11.0 [facility] Comment on above: Performed By: #### L 100.0100, L500.2500 ####[facility] [address] [place], [address] Chloride [Moles/Vol] 105 mmol/L Normal 98-108 [facility] Comment on above: Performed By: #### L 100.0100, L500.2500 ####[facility] [address] [place], [address] CO2 [Moles/Vol] 25.3 mmol/L Normal 21.0-32.0 [facility] Comment on above: Performed By: #### L 100.0100, L500.2500 ####[facility] [address] [place], [address] Creatinine [Mass/Vol] 1.60 mg/dL High 0.70-1.20 [facility] Comment on above: Performed By: #### L 100.0100, L500.2500 ####[facility] [address] [place], [address] ECRCL 52.86 ml/min Normal 50-250 [facility] Comment on above: Performed By: #### L 100.0100, L500.2500 ####[facility] [address] [place], [address] GAP 10 Normal 5-15 [facility] Comment on above: Performed By: #### L 100.0100, L500.2500 ####[facility] [address] [place], [address] GFR/1.73 sq M.predicted among non-blacks MDRD (S/P/Bld) [Vol rate/Area] 37 mL/min/{1.73_m2} Low >60 [facility] Comment on above: Result Comment: mL/m in/1.73m2 CKD-EPI Creatinine Equation (2020) Performed By: #### L 100.0100, L500.2500 ####[facility] [address] [place], [address] Glucose [Mass/Vol] 82 mg/dL Normal 70-99 [facility] Comment on above: Performed By: #### L 100.0100, L500.2500 ####[facility] [address] [place], [address] Potassium [Moles/Vol] 3.3 mmol/L Normal 3.3-5.1 [facility] Comment on above: Performed By: #### L 100.0100, L500.2500 ####[facility] [address] [place], [address] Sodium [Moles/Vol] 140 mmol/L Normal 133-145 [facility] Comment on above: Performed By: #### L 100.0100, L500.2500 ####[facility] [address] [place], [address] Urea nitrogen [Mass/Vol] 12 mg/dL Normal 4-19 [facility] Comment on above: Performed By: #### L 100.0100, L500.2500 ####[facility] [address] [place], [address] CBC W/Diff, Automatedon 03-03 10-2024 Absolute Lymph 3.00 X10 3/uL Normal 0.83-4.51 [facility] Comment on above: Performed By: #### L 100.0100, L500.2500 ####[facility] [address] [place], [address] Absolute Neut 2.1 X10 3/uL Normal 2.0-7.7 [facility] Comment on above: Performed By: #### L 100.0100, L500.2500 ####[facility] [address] [place], [address] Basophils/100 WBC (Bld) 1.0 % Normal 0-1 [facility] Comment on above: Performed By: #### L 100.0100, L500.2500 ####[facility] [address] [place], [address] Eosinophils/100 WBC (Bld) 7.5 % High 0-5 [facility] Comment on above: Performed By: #### L 100.0100, L500.2500 ####[facility] [address] [place], [address] Erythrocyte distribution width (RBC) [Ratio] 19.4 % High 11.6-14.6 [facility] Comment on above: Performed By: #### L 100.0100, L500.2500 ####[facility] [address] [place], [address] Hematocrit (Bld) [Volume fraction] 34.2 % Low 37-47 [facility] Comment on above: Performed By: #### L 100.0100, L500.2500 ####[facility] [address] [place], [address] Hemoglobin (Bld) [Mass/Vol] 10.7 g/dL Low 12.0-15.0 [facility] Comment on above: Performed By: #### L 100.0100, L500.2500 ####[facility] [address] [place], [address] IG% 0.200 Normal 0.0-0.9 [facility] Comment on above: Result Comment: IG% - Immature Granulocytes (promyelocytes, myelocytes andmetamyelocytes) > 1% indicates that a LEFT SHIFT is Present. Performed By: #### L 100.0100, L500.2500 ####[facility] [address] [place], [address] Lymphocytes/100 WBC (Bld) 48.0 % High 19-41 [facility] Comment on above: Performed By: #### L 100.0100, L500.2500 ####[facility] [address] [place], [address] MCH (RBC) [Entitic mass] 24.3 pg Low 27.0-32.0 [facility] Comment on above: Performed By: #### L 100.0100, L500.2500 ####[facility] [address] [place], [address] MCHC (RBC) [Mass/Vol] 31.3 g/dL Low 32-36 [facility] Comment on above: Performed By: #### L 100.0100, L500.2500 ####[facility] [address] [place], [address] MCV (RBC) [Entitic vol] 77.7 fL Low 81-99 [facility] Comment on above: Performed By: #### L 100.0100, L500.2500 ####[facility] [address] [place], [address] Monocytes/100 WBC (Bld) 9.9 % Normal 0-10 [facility] Comment on above: Performed By: #### L 100.0100, L500.2500 ####[facility] [address] [place], [address] Neutrophils/100 WBC (Bld) 33.4 % Low 47-70 [facility] Comment on above: Performed By: #### L 100.0100, L500.2500 ####[facility] [address] [place], [address] Nucleated RBC (Bld) [#/Vol] 0 10*3/uL Normal 0-5 [facility] Comment on above: Performed By: #### L 100.0100, L500.2500 ####[facility] [address] [place], [address] Platelet mean volume (Bld) [Entitic vol] 11.0 fL Normal 6.2-12.0 [facility] Comment on above: Performed By: #### L 100.0100, L500.2500 ####[facility] [address] [place], [address] Platelets (Bld) [#/Vol] 320 10*3/uL Normal 150-450 [facility] Comment on above: Performed By: #### L 100.0100, L500.2500 ####[facility] [address] [place], [address] RBC (Bld) [#/Vol] 4.40 10*6/uL Normal 4.2-5.4 [facility] Comment on above: Performed By: #### L 100.0100, L500.2500 ####[facility] [address] [place], [address] RDW SD 55.1 fl High 35.1-43.9 [facility] Comment on above: Performed By: #### L 100.0100, L500.2500 ####[facility] [address] [place], [address] WBC (Bld) [#/Vol] 6.3 10*3/uL Normal 4.4-11.0 [facility] Comment on above: Performed By: #### L 100.0100, L500.2500 ####[facility] [address] [place], [address] Discharge Instructionon 05-06 Discharge Instruction Normal [facility] CBC W/Diff, Automatedon 05-06 Absolute Lymph 2.63 X10 3/uL Normal 0.83-4.51 [facility] Comment on above: Performed By: #### L 100.0100, L501.9520, L501.2300, L500.4050, L501.5200 ####[facility] [address] [place], [address] Absolute Neut 2.1 X10 3/uL Normal 2.0-7.7 [facility] Comment on above: Performed By: #### L 100.0100, L501.9520, L501.2300, L500.4050, L501.5200 ####[facility] [address] [place], [address] Basophils/100 WBC (Bld) 0.8 % Normal 0-1 [facility] Comment on above: Performed By: #### L 100.0100, L501.9520, L501.2300, L500.4050, L501.5200 ####[facility] [address] [place], [address] Eosinophils/100 WBC (Bld) 9.0 % High 0-5 [facility] Comment on above: Performed By: #### L 100.0100, L501.9520, L501.2300, L500.4050, L501.5200 ####[facility] [address] [place], [address] Erythrocyte distribution width (RBC) [Ratio] 19.1 % High 11.6-14.6 [facility] Comment on above: Performed By: #### L 100.0100, L501.9520, L501.2300, L500.4050, L501.5200 ####[facility] [address] [place], [address] Hematocrit (Bld) [Volume fraction] 33.7 % Low 37-47 [facility] Comment on above: Performed By: #### L 100.0100, L501.9520, L501.2300, L500.4050, L501.5200 ####[facility] [address] [place], [address] Hemoglobin (Bld) [Mass/Vol] 10.6 g/dL Low 12.0-15.0 [facility] Comment on above: Performed By: #### L 100.0100, L501.9520, L501.2300, L500.4050, L501.5200 ####[facility] [address] [place], [address] IG% 0.200 Normal 0.0-0.9 [facility] Comment on above: Result Comment: IG% - Immature Granulocytes (promyelocytes, myelocytes andmetamyelocytes) > 1% indicates that a LEFT SHIFT is Present. Performed By: #### L 100.0100, L501.9520, L501.2300, L500.4050, L501.5200 ####[facility] [address] [place], [address] Lymphocytes/100 WBC (Bld) 44.5 % High 19-41 [facility] Comment on above: Performed By: #### L 100.0100, L501.9520, L501.2300, L500.4050, L501.5200 ####[facility] [address] [place], [address] MCH (RBC) [Entitic mass] 24.3 pg Low 27.0-32.0 [facility] Comment on above: Performed By: #### L 100.0100, L501.9520, L501.2300, L500.4050, L501.5200 ####[facility] [address] [place], [address] MCHC (RBC) [Mass/Vol] 31.5 g/dL Low 32-36 [facility] Comment on above: Performed By: #### L 100.0100, L501.9520, L501.2300, L500.4050, L501.5200 ####[facility] [address] [place], [address] MCV (RBC) [Entitic vol] 77.3 fL Low 81-99 [facility] Comment on above: Performed By: #### L 100.0100, L501.9520, L501.2300, L500.4050, L501.5200 ####[facility] [address] [place], [address] Monocytes/100 WBC (Bld) 10.3 % High 0-10 [facility] Comment on above: Performed By: #### L 100.0100, L501.9520, L501.2300, L500.4050, L501.5200 ####[facility] [address] [place], [address] Neutrophils/100 WBC (Bld) 35.2 % Low 47-70 [facility] Comment on above: Performed By: #### L 100.0100, L501.9520, L501.2300, L500.4050, L501.5200 ####[facility] [address] [place], [address] Nucleated RBC (Bld) [#/Vol] 0 10*3/uL Normal 0-5 [facility] Comment on above: Performed By: #### L 100.0100, L501.9520, L501.2300, L500.4050, L501.5200 ####[facility] [address] [place], [address] Platelet mean volume (Bld) [Entitic vol] 11.0 fL Normal 6.2-12.0 [facility] Comment on above: Performed By: #### L 100.0100, L501.9520, L501.2300, L500.4050, L501.5200 ####[facility] [address] [place], [address] Platelets (Bld) [#/Vol] 358 10*3/uL Normal 150-450 [facility] Comment on above: Performed By: #### L 100.0100, L501.9520, L501.2300, L500.4050, L501.5200 ####[facility] [address] [place], [address] RBC (Bld) [#/Vol] 4.36 10*6/uL Normal 4.2-5.4 [facility] Comment on above: Performed By: #### L 100.0100, L501.9520, L501.2300, L500.4050, L501.5200 ####[facility] [address] [place], [address] RDW SD 53.2 fl High 35.1-43.9 [facility] Comment on above: Performed By: #### L 100.0100, L501.9520, L501.2300, L500.4050, L501.5200 ####[facility] [address] [place], [address] WBC (Bld) [#/Vol] 5.9 10*3/uL Normal 4.4-11.0 [facility] Comment on above: Performed By: #### L 100.0100, L501.9520, L501.2300, L500.4050, L501.5200 ####[facility] [address] [place], [address] Comprehensive Metabolic Prof moon 05-17-2024 Albumin [Mass/Vol] 3.0 g/dL Low 3.5-5.0 [facility] Comment on above: Performed By: #### L 100.0100, L501.9520, L501.2300, L500.4050, L501.5200 ####[facility] [address] [place], [address] Albumin/Globulin [Mass ratio] 1.2 {ratio} Normal 0.9-2.4 [facility] Comment on above: Performed By: #### L 100.0100, L501.9520, L501.2300, L500.4050, L501.5200 ####[facility] [address] [place], [address] ALK PHOS 145 U/L High 35-104 [facility] Comment on above: Performed By: #### L 100.0100, L501.9520, L501.2300, L500.4050, L501.5200 ####[facility] [address] [place], [address] ALT [Catalytic activity/Vol] 45 U/L High <=34 [facility] Comment on above: Performed By: #### L 100.0100, L501.9520, L501.2300, L500.4050, L501.5200 ####[facility] [address] [place], [address] AST [Catalytic activity/Vol] 41 U/L High <=31 [facility] Comment on above: Performed By: #### L 100.0100, L501.9520, L501.2300, L500.4050, L501.5200 ####[facility] [address] [place], [address] Bilirubin [Mass/Vol] 0.39 mg/dL Normal 0.00-1.30 [facility] Comment on above: Performed By: #### L 100.0100, L501.9520, L501.2300, L500.4050, L501.5200 ####[facility] [address] [place], [address] BUN/CRE 7.6 RATIO Low 10-20 [facility] Comment on above: Performed By: #### L 100.0100, L501.9520, L501.2300, L500.4050, L501.5200 ####[facility] [address] [place], [address] Calcium [Mass/Vol] 11.5 mg/dL High 7.6-11.0 [facility] Comment on above: Performed By: #### L 100.0100, L501.9520, L501.2300, L500.4050, L501.5200 ####[facility] [address] [place], [address] Chloride [Moles/Vol] 102 mmol/L Normal 98-108 [facility] Comment on above: Performed By: #### L 100.0100, L501.9520, L501.2300, L500.4050, L501.5200 ####[facility] [address] [place], [address] CO2 [Moles/Vol] 28.3 mmol/L Normal 21.0-32.0 [facility] Comment on above: Performed By: #### L 100.0100, L501.9520, L501.2300, L500.4050, L501.5200 ####[facility] [address] [place], [address] Creatinine [Mass/Vol] 1.55 mg/dL High 0.70-1.20 [facility] Comment on above: Performed By: #### L 100.0100, L501.9520, L501.2300, L500.4050, L501.5200 ####[facility] [address] [place], [address] ECRCL 54.51 ml/min Normal 50-250 [facility] Comment on above: Performed By: #### L 100.0100, L501.9520, L501.2300, L500.4050, L501.5200 ####[facility] [address] [place], [address] GAP 9 Normal 5-15 [facility] Comment on above: Performed By: #### L 100.0100, L501.9520, L501.2300, L500.4050, L501.5200 ####[facility] [address] [place], [address] GFR/1.73 sq M.predicted among non-blacks MDRD (S/P/Bld) [Vol rate/Area] 39 mL/min/{1.73_m2} Low >60 [facility] Comment on above: Result Comment: mL/m in/1.73m2 CKD-EPI Creatinine Equation (2020) Performed By: #### L 100.0100, L501.9520, L501.2300, L500.4050, L501.5200 ####[facility] [address] [place], [address] Globulin (S) [Mass/Vol] 2.5 g/dL Normal 2.2-4.2 [facility] Comment on above: Performed By: #### L 100.0100, L501.9520, L501.2300, L500.4050, L501.5200 ####[facility] [address] [place], [address] Glucose [Mass/Vol] 83 mg/dL Normal 70-99 [facility] Comment on above: Performed By: #### L 100.0100, L501.9520, L501.2300, L500.4050, L501.5200 ####[facility] [address] [place], [address] Potassium [Moles/Vol] 3.1 mmol/L Low 3.3-5.1 [facility] Comment on above: Performed By: #### L 100.0100, L501.9520, L501.2300, L500.4050, L501.5200 ####[facility] [address] [place], [address] Sodium [Moles/Vol] 139 mmol/L Normal 133-145 [facility] Comment on above: Performed By: #### L 100.0100, L501.9520, L501.2300, L500.4050, L501.5200 ####[facility] [address] [place], [address] T PROT 5.6 g/dL Low 5.9-8.4 [facility] Comment on above: Performed By: #### L 100.0100, L501.9520, L501.2300, L500.4050, L501.5200 ####[facility] [address] [place], [address] Urea nitrogen [Mass/Vol] 12 mg/dL Normal 4-19 [facility] Comment on above: Performed By: #### L 100.0100, L501.9520, L501.2300, L500.4050, L501.5200 ####[facility] [address] [place], [address] L501.2276on 05-17-2024 Ionized Calcium 1.49 mmol/L High 1.09-1.30 [facility] Comment on above: Performed By: #### L 501.2276 ####[facility] [address] [place], [address] Ionized Calcium 1.65 mmol/L High 1.09-1.30 [facility] Comment on above: Performed By: #### L 501.2276 ####[facility] [address] [place], [address] Ionized Calcium 1.63 mmol/L High 1.09-1.30 [facility] Comment on above: Performed By: #### L 501.2276 ####[facility] [address] [place], [address] Ionized Calcium 1.66 mmol/L High 1.09-1.30 [facility] Comment on above: Performed By: #### L 501.2276 ####[facility] [address] [place], [address] Ionized Calcium 1.59 mmol/L High 1.09-1.30 [facility] Comment on above: Performed By: #### L 501.2276 ####[facility] [address] [place], [address] Magnesiumon 05-17-2024 Magnesium [Mass/Vol] 1.8 mg/dL Normal 1.5-2.2 [facility] Comment on above: Performed By: #### L 100.0100, L501.9520, L501.2300, L500.4050, L501.5200 ####[facility] [address] [place], [address] Phosphoruson 05-17-2024 Phosphate [Mass/Vol] 3.0 mg/dL Normal 2.7-4.5 [facility] Comment on above: Performed By: #### L 100.0100, L501.9520, L501.2300, L500.4050, L501.5200 ####[facility] [address] [place], [address] Thyroid Stim Hormone (TSH)on 05-17-2024 TSH 0.697 uIU/mL Normal 0.300-4.200 [facility] Comment on above: Performed By: #### L 100.0100, L501.9520, L501.2300, L500.4050, L501.5200 ####[facility] [address] [place], [address] 12 Lead EKGon 05-16-2024 12 Lead EKG Normal [facility] CBC W/Diff, Automatedon 05-06 Absolute Lymph 1.42 X10 3/uL Normal 0.83-4.51 [facility] Comment on above: Performed By: #### L 100.0100, L506.0400, L501.42874, L500.4050, L501.9520 ####[facility] [address] [place], [address] Absolute Neut 3.5 X10 3/uL Normal 2.0-7.7 [facility] Comment on above: Performed By: #### L 100.0100, L506.0400, L501.38138, L500.4050, L501.9520 ####[facility] [address] [place], [address] Basophils/100 WBC (Bld) 0.5 % Normal 0-1 [facility] Comment on above: Performed By: #### L 100.0100, L506.0400, L501.44958, L500.4050, L501.9520 ####[facility] [address] [place], [address] Eosinophils/100 WBC (Bld) 4.9 % Normal 0-5 [facility] Comment on above: Performed By: #### L 100.0100, L506.0400, L501.02748, L500.4050, L501.9520 ####[facility] [address] [place], [address] Erythrocyte distribution width (RBC) [Ratio] 19.4 % High 11.6-14.6 [facility] Comment on above: Performed By: #### L 100.0100, L506.0400, L501.67703, L500.4050, L501.9520 ####[facility] [address] [place], [address] Hematocrit (Bld) [Volume fraction] 39.9 % Normal 37-47 [facility] Comment on above: Performed By: #### L 100.0100, L506.0400, L501.08999, L500.4050, L501.9520 ####[facility] [address] [place], [address] Hemoglobin (Bld) [Mass/Vol] 12.7 g/dL Normal 12.0-15.0 [facility] Comment on above: Performed By: #### L 100.0100, L506.0400, L501.34755, L500.4050, L501.9520 ####[facility] [address] [place], [address] IG% 0.000 Normal 0.0-0.9 [facility] Comment on above: Result Comment: IG% - Immature Granulocytes (promyelocytes, myelocytes andmetamyelocytes) > 1% indicates that a LEFT SHIFT is Present. Performed By: #### L 100.0100, L506.0400, L501.67903, L500.4050, L501.9520 ####[facility] [address] [place], [address] Lymphocytes/100 WBC (Bld) 24.6 % Normal 19-41 [facility] Comment on above: Performed By: #### L 100.0100, L506.0400, L501.84662, L500.4050, L501.9520 ####[facility] [address] [place], [address] MCH (RBC) [Entitic mass] 24.5 pg Low 27.0-32.0 [facility] Comment on above: Performed By: #### L 100.0100, L506.0400, L501.53071, L500.4050, L501.9520 ####[facility] [address] [place], [address] MCHC (RBC) [Mass/Vol] 31.8 g/dL Low 32-36 [facility] Comment on above: Performed By: #### L 100.0100, L506.0400, L501.77400, L500.4050, L501.9520 ####[facility] [address] [place], [address] MCV (RBC) [Entitic vol] 77.0 fL Low 81-99 [facility] Comment on above: Performed By: #### L 100.0100, L506.0400, L501.11859, L500.4050, L501.9520 ####[facility] [address] [place], [address] Monocytes/100 WBC (Bld) 8.8 % Normal 0-10 [facility] Comment on above: Performed By: #### L 100.0100, L506.0400, L501.46903, L500.4050, L501.9520 ####[facility] [address] [place], [address] Neutrophils/100 WBC (Bld) 61.2 % Normal 47-70 [facility] Comment on above: Performed By: #### L 100.0100, L506.0400, L501.62919, L500.4050, L501.9520 ####[facility] [address] [place], [address] Nucleated RBC (Bld) [#/Vol] 0 10*3/uL Normal 0-5 [facility] Comment on above: Performed By: #### L 100.0100, L506.0400, L501.61699, L500.4050, L501.9520 ####[facility] [address] [place], [address] Platelet mean volume (Bld) [Entitic vol] 10.3 fL Normal 6.2-12.0 [facility] Comment on above: Performed By: #### L 100.0100, L506.0400, L501.55164, L500.4050, L501.9520 ####[facility] [address] [place], [address] Platelets (Bld) [#/Vol] 387 10*3/uL Normal 150-450 [facility] Comment on above: Performed By: #### L 100.0100, L506.0400, L501.72214, L500.4050, L501.9520 ####[facility] [address] [place], [address] RBC (Bld) [#/Vol] 5.18 10*6/uL Normal 4.2-5.4 [facility] Comment on above: Performed By: #### L 100.0100, L506.0400, L501.91933, L500.4050, L501.9520 ####[facility] [address] [place], [address] RDW SD 52.1 fl High 35.1-43.9 [facility] Comment on above: Performed By: #### L 100.0100, L506.0400, L501.81894, L500.4050, L501.9520 ####[facility] [address] [place], [address] WBC (Bld) [#/Vol] 5.8 10*3/uL Normal 4.4-11.0 [facility] Comment on above: Performed By: #### L 100.0100, L506.0400, L501.34743, L500.4050, L501.9520 ####[facility] [address] [place], [address] Chest PA and Lateralon 05-16 Chest PA and Lateral Normal [facility] Comprehensive Metabolic Prof ilon 05-16-2024 Albumin [Mass/Vol] 3.8 g/dL Normal 3.5-5.0 [facility] Comment on above: Performed By: #### L 100.0100, L506.0400, L501.55743, L500.4050, L501.9520 ####[facility] [address] [place], [address] Albumin/Globulin [Mass ratio] 1.2 {ratio} Normal 0.9-2.4 [facility] Comment on above: Performed By: #### L 100.0100, L506.0400, L501.57887, L500.4050, L501.9520 ####[facility] [address] [place], [address] ALK PHOS 203 U/L High 35-104 [facility] Comment on above: Performed By: #### L 100.0100, L506.0400, L501.42128, L500.4050, L501.9520 ####[facility] [address] [place], [address] ALT [Catalytic activity/Vol] 72 U/L High <=34 [facility] Comment on above: Performed By: #### L 100.0100, L506.0400, L501.02003, L500.4050, L501.9520 ####[facility] [address] [place], [address] AST [Catalytic activity/Vol] 90 U/L High <=31 [facility] Comment on above: Performed By: #### L 100.0100, L506.0400, L501.48979, L500.4050, L501.9520 ####[facility] [address] [place], [address] Bilirubin [Mass/Vol] 0.63 mg/dL Normal 0.00-1.30 [facility] Comment on above: Performed By: #### L 100.0100, L506.0400, L501.60012, L500.4050, L501.9520 ####[facility] [address] [place], [address] BUN/CRE 7.2 RATIO Low 10-20 [facility] Comment on above: Performed By: #### L 100.0100, L506.0400, L501.61870, L500.4050, L501.9520 ####[facility] [address] [place], [address] Calcium [Mass/Vol] 13.6 mg/dL Invalid Interpretation Code 7.6-11.0 [facility] Comment on above: Result Comment: Crit ical Result(s) Called at 05/16/2024-09:51 by Mahogany Longo??Results read back by same. Performed By: #### L 100.0100, L506.0400, L501.88712, L500.4050, L501.9520 ####[facility] [address] [place], [address] Chloride [Moles/Vol] 93 mmol/L Low 98-108 [facility] Comment on above: Performed By: #### L 100.0100, L506.0400, L501.63335, L500.4050, L501.9520 ####[facility] [address] [place], [address] CO2 [Moles/Vol] 32.0 mmol/L Normal 21.0-32.0 [facility] Comment on above: Performed By: #### L 100.0100, L506.0400, L501.72055, L500.4050, L501.9520 ####[facility] [address] [place], [address] Creatinine [Mass/Vol] 1.83 mg/dL High 0.70-1.20 [facility] Comment on above: Performed By: #### L 100.0100, L506.0400, L501.07356, L500.4050, L501.9520 ####[facility] [address] [place], [address] ECRCL 46.61 ml/min Low 50-250 [facility] Comment on above: Performed By: #### L 100.0100, L506.0400, L501.35500, L500.4050, L501.9520 ####[facility] [address] [place], [address] GAP 12 Normal 5-15 [facility] Comment on above: Performed By: #### L 100.0100, L506.0400, L501.97164, L500.4050, L501.9520 ####[facility] [address] [place], [address] GFR/1.73 sq M.predicted among non-blacks MDRD (S/P/Bld) [Vol rate/Area] 32 mL/min/{1.73_m2} Low >60 [facility] Comment on above: Result Comment: mL/m in/1.73m2 CKD-EPI Creatinine Equation (2020) Performed By: #### L 100.0100, L506.0400, L501.11460, L500.4050, L501.9520 ####[facility] [address] [place], [address] Globulin (S) [Mass/Vol] 3.2 g/dL Normal 2.2-4.2 [facility] Comment on above: Performed By: #### L 100.0100, L506.0400, L501.30876, L500.4050, L501.9520 ####[facility] [address] [place], [address] Glucose [Mass/Vol] 124 mg/dL High 70-99 [facility] Comment on above: Performed By: #### L 100.0100, L506.0400, L501.61143, L500.4050, L501.9520 ####[facility] [address] [place], [address] Potassium [Moles/Vol] 2.5 mmol/L Invalid Interpretation Code 3.3-5.1 [facility] Comment on above: Result Comment: Crit ical Result(s) Called at 05/16/2024-09:51 by Mahogany Longo??Results read back by same. Performed By: #### L 100.0100, L506.0400, L501.40702, L500.4050, L501.9520 ####[facility] [address] [place], [address] Sodium [Moles/Vol] 137 mmol/L Normal 133-145 [facility] Comment on above: Performed By: #### L 100.0100, L506.0400, L501.78014, L500.4050, L501.9520 ####[facility] [address] [place], [address] T PROT 7.0 g/dL Normal 5.9-8.4 [facility] Comment on above: Performed By: #### L 100.0100, L506.0400, L501.80273, L500.4050, L501.9520 ####[facility] [address] [place], [address] Urea nitrogen [Mass/Vol] 13 mg/dL Normal 4-19 [facility] Comment on above: Performed By: #### L 100.0100, L506.0400, L501.61574, L500.4050, L501.9520 ####[facility] [address] [place], [address] Emergency Department Summary on 05-16-2024 Emergency Department Summary Normal [facility] Free T3on 05-16-2024 Free T3 [Mass/Vol] 2.9 pg/mL Normal 2.18-3.98 [facility] Comment on above: Performed By: #### L 100.0100, L506.0400, L501.66491, L500.4050, L501.9520 ####[facility] [address] [place], [address] H AND P Exam - Hospitaliston 05-16-2024 H&P Exam - Hospitalist Normal [facility] L501.2276on 05-16-2024 Ionized Calcium 1.75 mmol/L High 1.09-1.30 [facility] Comment on above: Performed By: #### L 501.2276 ####[facility] [address] [place], [address] L506.1001on 05-16-2024 Vitamin D 25-OH 38.2 ng/mL Normal 30-100 [facility] Comment on above: Result Comment: Carol min D StatusDeficiency: <20 ng/mL (50nmol/L)Insufficiency: 20-30 ng/mL (50-75 nmol/L)Sufficiency: 30-100 ng/mL (75-250 nmol/L)Toxicity: >100 ng/mL (>250 nmol/L) Performed By: #### L 501.5200, L506.1001 ####[facility] [address] [place], [address] Magnesiumon 05-16-2024 Magnesium [Mass/Vol] 1.8 mg/dL Normal 1.5-2.2 [facility] Comment on above: Performed By: #### L 501.5200, L506.1001 ####[facility] [address] [place], [address] PTHINon 05-16-2024 PTH 4 pg/mL Low 11-61 [facility] Comment on above: Performed By: #### L 509.1000 ####[facility] [address] [place], [address] T4 Free Directon 05-16-2024 T4 FREE DIRECT 1.40 ng/dL Normal 0.76-1.46 [facility] Comment on above: Performed By: #### L 100.0100, L506.0400, L501.36160, L500.4050, L501.9520 ####[facility] [address] [place], [address] Thyroid Stim Hormone (TSH)on 05-16-2024 TSH 0.661 uIU/mL Normal 0.300-4.200 [facility] Comment on above: Performed By: #### L 100.0100, L506.0400, L501.02082, L500.4050, L501.9520 ####[facility] [address] [place], [address] Urinalysis, Completeon 05-16 Mucus Ql (Urine sed) RARE Normal [facility] Comment on above: Order Comment: CLEAN CATCH Performed By: #### L 400.0001 ####[facility] [address] [place], [address] BACTERIA 1+ /hpf Normal None Seen [facility] Comment on above: Order Comment: CLEAN CATCH Performed By: #### L 400.0001 ####[facility] [address] [place], [address] EPI,SQUAMOUS 0-5 SEEN Normal 5-10 [facility] Comment on above: Order Comment: CLEAN CATCH Performed By: #### L 400.0001 ####[facility] [address] [place], [address] RBC 0-5 SEEN Normal 0-5 [facility] Comment on above: Order Comment: CLEAN CATCH Performed By: #### L 400.0001 ####[facility] [address] [place], [address] WBC 0-5 SEEN Normal 0-5 [facility] Comment on above: Order Comment: CLEAN CATCH Performed By: #### L 400.0001 ####[facility] [address] [place], [address] MR/BMS.BPon 05-08-2024 MR/BMS.BP Normal [facility] Brain without Contraston Brain without Contrast Normal [facility] MR/BMS.BPon 04-13-2024 MR/BMS.BP Normal [facility] CBC W/Diff, Automatedon 01-3 Anisocytosis Ql (Bld) 1+ Normal [facility] Comment on above: Performed By: #### L 501.5200, L503.6150, L100.0100, L501.3620, L500.4050, L501.9520 ####[facility] [address] [place], [address] HYPOCHROMASIA 1+ Normal [facility] Comment on above: Performed By: #### L 501.5200, L503.6150, L100.0100, L501.3620, L500.4050, L501.9520 ####[facility] [address] [place], [address] TARGET CELLS RARE Normal [facility] Comment on above: Performed By: #### L 501.5200, L503.6150, L100.0100, L501.3620, L500.4050, L501.9520 ####[facility] [address] [place], [address] PLT EST ADEQUATE Normal ADEQ [facility] Comment on above: Performed By: #### L 501.5200, L503.6150, L100.0100, L501.3620, L500.4050, L501.9520 ####[facility] [address] [place], [address] SMEAR COMMENT SCANNED Normal [facility] Comment on above: Performed By: #### L 501.5200, L503.6150, L100.0100, L501.3620, L500.4050, L501.9520 ####[facility] [address] [place], [address] CPK Total, Creatine Kinaseon 04-07-2024 CPK TOTAL 202 U/L High 26-192 [facility] Comment on above: Performed By: #### L 501.5200, L503.6150, L100.0100, L501.3620, L500.4050, L501.9520 ####[facility] [address] [place], [address] Comprehensive Metabolic Prof moon 04-07-2024 Albumin [Mass/Vol] 3.3 g/dL Normal 3.2-5.0 [facility] Comment on above: Performed By: #### L 501.5200, L503.6150, L100.0100, L501.3620, L500.4050, L501.9520 ####[facility] [address] [place], [address] Albumin/Globulin [Mass ratio] 0.9 {ratio} Normal 0.9-2.4 [facility] Comment on above: Performed By: #### L 501.5200, L503.6150, L100.0100, L501.3620, L500.4050, L501.9520 ####[facility] [address] [place], [address] ALK P 110 U/L Normal 45-117 [facility] Comment on above: Performed By: #### L 501.5200, L503.6150, L100.0100, L501.3620, L500.4050, L501.9520 ####[facility] [address] [place], [address] ALT [Catalytic activity/Vol] 54 U/L Normal 13-56 [facility] Comment on above: Performed By: #### L 501.5200, L503.6150, L100.0100, L501.3620, L500.4050, L501.9520 ####[facility] [address] [place], [address] AST [Catalytic activity/Vol] 40 U/L High 15-37 [facility] Comment on above: Performed By: #### L 501.5200, L503.6150, L100.0100, L501.3620, L500.4050, L501.9520 ####[facility] [address] [place], [address] Bilirubin [Mass/Vol] 0.70 mg/dL Normal 0.20-1.00 [facility] Comment on above: Result Comment: For patients on eltrombopag therapy, use of Dimension [place] TBIL is not recommended. Performed By: #### L 501.5200, L503.6150, L100.0100, L501.3620, L500.4050, L501.9520 ####[facility] [address] [place], [address] BUN/CRE 11.4 RATIO Normal 10-20 [facility] Comment on above: Performed By: #### L 501.5200, L503.6150, L100.0100, L501.3620, L500.4050, L501.9520 ####[facility] [address] [place], [address] CA,Total 9.8 mg/dL Normal 8.5-10.1 [facility] Comment on above: Performed By: #### L 501.5200, L503.6150, L100.0100, L501.3620, L500.4050, L501.9520 ####[facility] [address] [place], [address] Chloride [Moles/Vol] 101 mmol/L Normal 98-107 [facility] Comment on above: Performed By: #### L 501.5200, L503.6150, L100.0100, L501.3620, L500.4050, L501.9520 ####[facility] [address] [place], [address] CO2 [Moles/Vol] 30.0 mmol/L Normal 21.0-32.0 [facility] Comment on above: Performed By: #### L 501.5200, L503.6150, L100.0100, L501.3620, L500.4050, L501.9520 ####[facility] [address] [place], [address] Creatinine [Mass/Vol] 1.14 mg/dL High 0.55-1.02 [facility] Comment on above: Result Comment: The validity of the calculated GFR GFRAA in patients over70 years has not been determined. Clinical correlation isessential. Performed By: #### L 501.5200, L503.6150, L100.0100, L501.3620, L500.4050, L501.9520 ####[facility] [address] [place], [address] EST GFR - AA 63 mL/min Normal >60 [facility] Comment on above: Result Comment: Afri can Scottish GFR Calc Performed By: #### L 501.5200, L503.6150, L100.0100, L501.3620, L500.4050, L501.9520 ####[facility] [address] [place], [address] GAP 8 Normal 5-15 [facility] Comment on above: Performed By: #### L 501.5200, L503.6150, L100.0100, L501.3620, L500.4050, L501.9520 ####[facility] [address] [place], [address] GFR/1.73 sq M.predicted among non-blacks MDRD (S/P/Bld) [Vol rate/Area] 52 mL/min/{1.73_m2} Low >60 [facility] Comment on above: Result Comment: Non- GFR Calc Performed By: #### L 501.5200, L503.6150, L100.0100, L501.3620, L500.4050, L501.9520 ####[facility] [address] [place], [address] Globulin (S) [Mass/Vol] 3.8 g/dL Normal 2.2-4.2 [facility] Comment on above: Performed By: #### L 501.5200, L503.6150, L100.0100, L501.3620, L500.4050, L501.9520 ####[facility] [address] [place], [address] Glucose [Mass/Vol] 98 mg/dL Normal 74-106 [facility] Comment on above: Performed By: #### L 501.5200, L503.6150, L100.0100, L501.3620, L500.4050, L501.9520 ####[facility] [address] [place], [address] Potassium [Moles/Vol] 3.1 mmol/L Low 3.5-5.1 [facility] Comment on above: Performed By: #### L 501.5200, L503.6150, L100.0100, L501.3620, L500.4050, L501.9520 ####[facility] [address] [place], [address] Sodium [Moles/Vol] 139 mmol/L Normal 136-145 [facility] Comment on above: Performed By: #### L 501.5200, L503.6150, L100.0100, L501.3620, L500.4050, L501.9520 ####[facility] [address] [place], [address] T PROT 7.1 g/dL Normal 6.4-8.2 [facility] Comment on above: Performed By: #### L 501.5200, L503.6150, L100.0100, L501.3620, L500.4050, L501.9520 ####[facility] [address] [place], [address] Urea nitrogen [Mass/Vol] 13 mg/dL Normal 7-18 [facility] Comment on above: Performed By: #### L 501.5200, L503.6150, L100.0100, L501.3620, L500.4050, L501.9520 ####[facility] [address] [place], [address] Internal Medicine Office Vis iton 04-07-2024 Internal Medicine Office Visit Normal [facility] Ironon 04-07-2024 Iron [Mass/Vol] 27 ug/dL Low 50-170 [facility] Comment on above: Performed By: #### L 501.5200, L503.6150, L100.0100, L501.3620, L500.4050, L501.9520 ####[facility] [address] [place], [address] Magnesiumon 04-07-2024 Magnesium [Mass/Vol] 2.1 mg/dL Normal 1.6-2.6 [facility] Comment on above: Performed By: #### L 501.5200, L503.6150, L100.0100, L501.3620, L500.4050, L501.9520 ####[facility] [address] [place], [address] Thyroid Stim Hormone (TSH)on 04-07-2024 TSH 1.450 uIU/mL Normal 0.358-3.740 [facility] Comment on above: Performed By: #### L 501.5200, L503.6150, L100.0100, L501.3620, L500.4050, L501.9520 ####[facility] [address] [place], [address] Culture, Blood (WB)on 2024 CUB Blood cultures x2, f rom two different sites No growth in 5 days. Normal [facility] Comment on above: Performed By: #### L 503.6005, M200.1000, L509.7000 ####[facility] [address] [place], [address] Basic Metabolic Profile (BMP )on 04-03-2024 BUN Normal 7-18 [facility] Comment on above: Result Comment: Canc elled via OM: Order cancelled - Patient discharged Performed By: #### L 100.0100, L500.2500 ####[facility] [address] [place], [address] BUN/CRE Normal 10-20 [facility] Comment on above: Result Comment: Canc elled via OM: Order cancelled - Patient discharged Performed By: #### L 100.0100, L500.2500 ####[facility] [address] [place], [address] CA,Total Normal 8.5-10.1 [facility] Comment on above: Result Comment: Canc elled via OM: Order cancelled - Patient discharged Performed By: #### L 100.0100, L500.2500 ####[facility] [address] [place], [address] CL Normal 98-107 [facility] Comment on above: Result Comment: Canc elled via OM: Order cancelled - Patient discharged Performed By: #### L 100.0100, L500.2500 ####[facility] [address] [place], [address] CO2 Normal 21.0-32.0 [facility] Comment on above: Result Comment: Canc elled via OM: Order cancelled - Patient discharged Performed By: #### L 100.0100, L500.2500 ####[facility] [address] [place], [address] CREAT,SERUM Normal 0.55-1.02 [facility] Comment on above: Result Comment: Canc elled via OM: Order cancelled - Patient discharged Performed By: #### L 100.0100, L500.2500 ####[facility] [address] [place], [address] EST GFR Normal >60 [facility] Comment on above: Result Comment: Canc elled via OM: Order cancelled - Patient discharged Performed By: #### L 100.0100, L500.2500 ####[facility] [address] [place], [address] EST GFR - AA Normal >60 [facility] Comment on above: Result Comment: Canc elled via OM: Order cancelled - Patient discharged Performed By: #### L 100.0100, L500.2500 ####[facility] [address] [place], [address] GAP Normal 5-15 [facility] Comment on above: Result Comment: Canc elled via OM: Order cancelled - Patient discharged Performed By: #### L 100.0100, L500.2500 ####[facility] [address] [place], [address] GLU Normal 74-106 [facility] Comment on above: Result Comment: Canc elled via OM: Order cancelled - Patient discharged Performed By: #### L 100.0100, L500.2500 ####[facility] [address] [place], [address] Potassium Normal 3.5-5.1 [facility] Comment on above: Result Comment: Canc elled via OM: Order cancelled - Patient discharged Performed By: #### L 100.0100, L500.2500 ####[facility] [address] [place], [address] Basic Metabolic Profile (BMP) Normal 136-145 [facility] Comment on above: Result Comment: Canc elled via OM: Order cancelled - Patient discharged Performed By: #### L 100.0100, L500.2500 ####[facility] [address] [place], [address] CBC W/Diff, Automatedon 01-2 Absolute Neut Normal 2.0-7.7 [facility] Comment on above: Result Comment: Canc elled via OM: Order cancelled - Patient discharged Performed By: #### L 100.0100, L500.2500 ####[facility] [address] [place], [address] HCT Normal 37-47 [facility] Comment on above: Result Comment: Canc elled via OM: Order cancelled - Patient discharged Performed By: #### L 100.0100, L500.2500 ####[facility] [address] [place], [address] HGB Normal 12.0-15.0 [facility] Comment on above: Result Comment: Canc elled via OM: Order cancelled - Patient discharged Performed By: #### L 100.0100, L500.2500 ####[facility] [address] [place], [address] MCH Normal 27.0-32.0 [facility] Comment on above: Result Comment: Canc elled via OM: Order cancelled - Patient discharged Performed By: #### L 100.0100, L500.2500 ####[facility] [address] [place], [address] MCHC Normal 32-36 [facility] Comment on above: Result Comment: Canc elled via OM: Order cancelled - Patient discharged Performed By: #### L 100.0100, L500.2500 ####[facility] [address] [place], [address] MCV Normal 81-99 [facility] Comment on above: Result Comment: Canc elled via OM: Order cancelled - Patient discharged Performed By: #### L 100.0100, L500.2500 ####[facility] [address] [place], [address] NEUT% Normal 47-70 [facility] Comment on above: Result Comment: Canc elled via OM: Order cancelled - Patient discharged Performed By: #### L 100.0100, L500.2500 ####[facility] [address] [place], [address] PLT Normal 150-450 [facility] Comment on above: Result Comment: Canc elled via OM: Order cancelled - Patient discharged Performed By: #### L 100.0100, L500.2500 ####[facility] [address] [place], [address] RBC Normal 4.2-5.4 [facility] Comment on above: Result Comment: Canc elled via OM: Order cancelled - Patient discharged Performed By: #### L 100.0100, L500.2500 ####[facility] [address] [place], [address] RDW CV Normal 11.6-14.6 [facility] Comment on above: Result Comment: Canc elled via OM: Order cancelled - Patient discharged Performed By: #### L 100.0100, L500.2500 ####[facility] [address] [place], [address] RDW SD Normal 35.1-43.9 [facility] Comment on above: Result Comment: Canc elled via OM: Order cancelled - Patient discharged Performed By: #### L 100.0100, L500.2500 ####[facility] [address] [place], [address] WBC Normal 4.4-11.0 [facility] Comment on above: Result Comment: Canc elled via OM: Order cancelled - Patient discharged Performed By: #### L 100.0100, L500.2500 ####[facility] [address] [place], [address] Basic Metabolic Profile (BMP )on 04-02-2024 BUN Normal 7-18 [facility] Comment on above: Result Comment: Canc elled via OM: Order cancelled - Patient discharged Performed By: #### L 100.0100, L500.2500 ####[facility] [address] [place], [address] BUN/CRE Normal 10-20 [facility] Comment on above: Result Comment: Canc elled via OM: Order cancelled - Patient discharged Performed By: #### L 100.0100, L500.2500 ####[facility] [address] [place], [address] CA,Total Normal 8.5-10.1 [facility] Comment on above: Result Comment: Canc elled via OM: Order cancelled - Patient discharged Performed By: #### L 100.0100, L500.2500 ####[facility] [address] [place], [address] CL Normal 98-107 [facility] Comment on above: Result Comment: Canc elled via OM: Order cancelled - Patient discharged Performed By: #### L 100.0100, L500.2500 ####[facility] [address] [place], [address] CO2 Normal 21.0-32.0 [facility] Comment on above: Result Comment: Canc elled via OM: Order cancelled - Patient discharged Performed By: #### L 100.0100, L500.2500 ####[facility] [address] [place], [address] CREAT,SERUM Normal 0.55-1.02 [facility] Comment on above: Result Comment: Canc elled via OM: Order cancelled - Patient discharged Performed By: #### L 100.0100, L500.2500 ####[facility] [address] [place], [address] EST GFR Normal >60 [facility] Comment on above: Result Comment: Canc elled via OM: Order cancelled - Patient discharged Performed By: #### L 100.0100, L500.2500 ####[facility] [address] [place], [address] EST GFR - AA Normal >60 [facility] Comment on above: Result Comment: Canc elled via OM: Order cancelled - Patient discharged Performed By: #### L 100.0100, L500.2500 ####[facility] [address] [place], [address] GAP Normal 5-15 [facility] Comment on above: Result Comment: Canc elled via OM: Order cancelled - Patient discharged Performed By: #### L 100.0100, L500.2500 ####[facility] [address] [place], [address] GLU Normal 74-106 [facility] Comment on above: Result Comment: Canc elled via OM: Order cancelled - Patient discharged Performed By: #### L 100.0100, L500.2500 ####[facility] [address] [place], [address] Potassium Normal 3.5-5.1 [facility] Comment on above: Result Comment: Canc elled via OM: Order cancelled - Patient discharged Performed By: #### L 100.0100, L500.2500 ####[facility] [address] [place], [address] Basic Metabolic Profile (BMP) Normal 136-145 [facility] Comment on above: Result Comment: Canc elled via OM: Order cancelled - Patient discharged Performed By: #### L 100.0100, L500.2500 ####[facility] [address] [place], [address] CBC W/Diff, Automatedon 01-2 Anisocytosis Ql (Bld) 2+ Normal [facility] Comment on above: Performed By: #### L 500.4050, L503.6005, L100.0100 ####[facility] [address] [place], [address] PLT EST ADEQUATE Normal ADEQ [facility] Comment on above: Performed By: #### L 500.4050, L503.6005, L100.0100 ####[facility] [address] [place], [address] SMEAR COMMENT SCANNED Normal [facility] Comment on above: Performed By: #### L 500.4050, L503.6005, L100.0100 ####[facility] [address] [place], [address] TARGET CELLS 1+ Normal [facility] Comment on above: Performed By: #### L 500.4050, L503.6005, L100.0100 ####[facility] [address] [place], [address] Absolute Neut Normal 2.0-7.7 [facility] Comment on above: Result Comment: Canc elled via OM: Order cancelled - Patient discharged Performed By: #### L 100.0100, L500.2500 ####[facility] [address] [place], [address] HCT Normal 37-47 [facility] Comment on above: Result Comment: Canc elled via OM: Order cancelled - Patient discharged Performed By: #### L 100.0100, L500.2500 ####[facility] [address] [place], [address] HGB Normal 12.0-15.0 [facility] Comment on above: Result Comment: Canc elled via OM: Order cancelled - Patient discharged Performed By: #### L 100.0100, L500.2500 ####[facility] [address] [place], [address] MCH Normal 27.0-32.0 [facility] Comment on above: Result Comment: Canc elled via OM: Order cancelled - Patient discharged Performed By: #### L 100.0100, L500.2500 ####[facility] [address] [place], [address] MCHC Normal 32-36 [facility] Comment on above: Result Comment: Canc elled via OM: Order cancelled - Patient discharged Performed By: #### L 100.0100, L500.2500 ####[facility] [address] [place], [address] MCV Normal 81-99 [facility] Comment on above: Result Comment: Canc elled via OM: Order cancelled - Patient discharged Performed By: #### L 100.0100, L500.2500 ####[facility] [address] [place], [address] NEUT% Normal 47-70 [facility] Comment on above: Result Comment: Canc elled via OM: Order cancelled - Patient discharged Performed By: #### L 100.0100, L500.2500 ####[facility] [address] [place], [address] PLT Normal 150-450 [facility] Comment on above: Result Comment: Canc elled via OM: Order cancelled - Patient discharged Performed By: #### L 100.0100, L500.2500 ####[facility] [address] [place], [address] RBC Normal 4.2-5.4 [facility] Comment on above: Result Comment: Canc elled via OM: Order cancelled - Patient discharged Performed By: #### L 100.0100, L500.2500 ####[facility] [address] [place], [address] RDW CV Normal 11.6-14.6 [facility] Comment on above: Result Comment: Canc elled via OM: Order cancelled - Patient discharged Performed By: #### L 100.0100, L500.2500 ####[facility] [address] [place], [address] RDW SD Normal 35.1-43.9 [facility] Comment on above: Result Comment: Canc elled via OM: Order cancelled - Patient discharged Performed By: #### L 100.0100, L500.2500 ####[facility] [address] [place], [address] WBC Normal 4.4-11.0 [facility] Comment on above: Result Comment: Canc elled via OM: Order cancelled - Patient discharged Performed By: #### L 100.0100, L500.2500 ####[facility] [address] [place], [address] CPK Total, Creatine Kinaseon 04-02-2024 CPK TOTAL 3351 U/L High 26-192 [facility] Comment on above: Performed By: #### L 501.3620 ####[facility] [address] [place], [address] Chest PA and Lateralon 04-02 Chest PA and Lateral Normal [facility] Comprehensive Metabolic Prof ilon 04-02-2024 Albumin [Mass/Vol] 2.9 g/dL Low 3.2-5.0 [facility] Comment on above: Performed By: #### L 500.4050, L503.6005, L100.0100 ####[facility] [address] [place], [address] Albumin/Globulin [Mass ratio] 0.8 {ratio} Low 0.9-2.4 [facility] Comment on above: Performed By: #### L 500.4050, L503.6005, L100.0100 ####[facility] [address] [place], [address] ALK P 116 U/L Normal 45-117 [facility] Comment on above: Performed By: #### L 500.4050, L503.6005, L100.0100 ####[facility] [address] [place], [address] ALT [Catalytic activity/Vol] 105 U/L High 13-56 [facility] Comment on above: Performed By: #### L 500.4050, L503.6005, L100.0100 ####[facility] [address] [place], [address] AST [Catalytic activity/Vol] 212 U/L High 15-37 [facility] Comment on above: Performed By: #### L 500.4050, L503.6005, L100.0100 ####[facility] [address] [place], [address] Bilirubin [Mass/Vol] 1.00 mg/dL Normal 0.20-1.00 [facility] Comment on above: Result Comment: For patients on eltrombopag therapy, use of Dimension [place] TBIL is not recommended. Performed By: #### L 500.4050, L503.6005, L100.0100 ####[facility] [address] [place], [address] BUN/CRE 16.2 RATIO Normal 10-20 [facility] Comment on above: Performed By: #### L 500.4050, L503.6005, L100.0100 ####[facility] [address] [place], [address] CA,Total 9.3 mg/dL Normal 8.5-10.1 [facility] Comment on above: Performed By: #### L 500.4050, L503.6005, L100.0100 ####[facility] [address] [place], [address] Chloride [Moles/Vol] 110 mmol/L High 98-107 [facility] Comment on above: Performed By: #### L 500.4050, L503.6005, L100.0100 ####[facility] [address] [place], [address] CO2 [Moles/Vol] 21.0 mmol/L Normal 21.0-32.0 [facility] Comment on above: Performed By: #### L 500.4050, L503.6005, L100.0100 ####[facility] [address] [place], [address] Creatinine [Mass/Vol] 1.17 mg/dL High 0.55-1.02 [facility] Comment on above: Result Comment: The validity of the calculated GFR GFRAA in patients over70 years has not been determined. Clinical correlation isessential. Performed By: #### L 500.4050, L503.6005, L100.0100 ####[facility] [facility] [address] [place], [address] ECRCL 80.16 ml/min Normal [facility] Comment on above: Performed By: #### L 500.4050, L503.6005, L100.0100 ####[facility] [address] [place], [address] EST GFR - AA 61 mL/min Normal >60 [facility] Comment on above: Result Comment: Afri can Scottish GFR Calc Performed By: #### L 500.4050, L503.6005, L100.0100 ####[facility] [address] [place], [address] GAP 6 Normal 5-15 [facility] Comment on above: Performed By: #### L 500.4050, L503.6005, L100.0100 ####[facility] [address] [place], [address] GFR/1.73 sq M.predicted among non-blacks MDRD (S/P/Bld) [Vol rate/Area] 51 mL/min/{1.73_m2} Low >60 [facility] Comment on above: Result Comment: Non- GFR Calc Performed By: #### L 500.4050, L503.6005, L100.0100 ####[facility] [address] [place], [address] Globulin (S) [Mass/Vol] 3.7 g/dL Normal 2.2-4.2 [facility] Comment on above: Performed By: #### L 500.4050, L503.6005, L100.0100 ####[facility] [address] [place], [address] Glucose [Mass/Vol] 91 mg/dL Normal 74-106 [facility] Comment on above: Performed By: #### L 500.4050, L503.6005, L100.0100 ####[facility] [address] [place], [address] Potassium [Moles/Vol] 3.9 mmol/L Normal 3.5-5.1 [facility] Comment on above: Performed By: #### L 500.4050, L503.6005, L100.0100 ####[facility] [address] [place], [address] Sodium [Moles/Vol] 137 mmol/L Normal 136-145 [facility] Comment on above: Performed By: #### L 500.4050, L503.6005, L100.0100 ####[facility] [address] [place], [address] T PROT 6.6 g/dL Normal 6.4-8.2 [facility] Comment on above: Performed By: #### L 500.4050, L503.6005, L100.0100 ####[facility] [address] [place], [address] Urea nitrogen [Mass/Vol] 19 mg/dL High 7-18 [facility] Comment on above: Performed By: #### L 500.4050, L503.6005, L100.0100 ####[facility] [address] [place], [address] Elbow min 3 Viewson 04-02-19 25 Elbow min 3 Views Normal [facility] Emergency Department Summary on 04-02-2024 Emergency Department Summary Normal [facility] Lactic Acidon 04-02-2024 Lactate [Moles/Vol] 1.4 mmol/L Normal 0.4-1.9 [facility] Comment on above: Performed By: #### L 503.6005 ####[facility] [address] [place], [address] Lactate [Moles/Vol] 2.0 mmol/L Normal 0.4-1.9 [facility] Comment on above: Order Comment: Y Result Comment: Crit ical Result(s) Called at: 09:56:03 04/02/2024 by: Shukri Payne RN (ER). Results read back by same. Performed By: #### L 500.4050, L503.6005, L100.0100 ####[facility] [address] [place], [address] Urinalysis, Completeon 04-02 BACTERIA 1+ /hpf Normal None Seen [facility] Comment on above: Order Comment: GARDENIA CTOR TO SPECIFY Performed By: #### L 400.0001 ####[facility] [address] [place], [address] EPI,SQUAMOUS 0-5 SEEN Normal 5-10 [facility] Comment on above: Order Comment: GARDENIA CTOR TO SPECIFY Performed By: #### L 400.0001 ####[facility] [address] [place], [address] RBC 0-5 SEEN Normal 0-5 [facility] Comment on above: Order Comment: GARDENIA CTOR TO SPECIFY Performed By: #### L 400.0001 ####[facility] [address] [place], [address] WBC 0-5 SEEN Normal 0-5 [facility] Comment on above: Order Comment: GARDENIA NASH TO SPECIFY Performed By: #### L 400.0001 ####[facility] [address] [place] [address] Mucus Ql (Urine sed) 0 SEEN Normal [facility] Comment on above: Order Comment: GARDENIA HANSONOR TO SPECIFY Performed By: #### L 400.0001 ####[facility] [address] [place] [address] Urine Drug Screen (VISTA)on 04-02-2024 AMPHETAMINES Negative Normal <1000 ng/mL [facility] Comment on above: Performed By: #### L 505.5000 ####[facility] [address] [place] [address] BARBITIURATES Negative Normal < 200 ng/mL [facility] Comment on above: Performed By: #### L 505.5000 ####[facility] [address] [place] [address] BENZODIAZIPINE Positive Abnormal < 200 ng/mL [facility] Comment on above: Performed By: #### L 505.5000 ####[facility] [address] [place] [address] COCAINE Negative Normal < 300 ng/mL [facility] Comment on above: Performed By: #### L 505.5000 ####[facility] [address] [place] [address] ECSTACY Positive Abnormal < 500 ng/mL [facility] Comment on above: Performed By: #### L 505.5000 ####[facility] [address] [place] [address] METHADONE Negative Normal < 300 ng/mL [facility] Comment on above: Performed By: #### L 505.5000 ####[facility] [address] [place] [address] OPIATES Positive Abnormal < 300 ng/mL [facility] Comment on above: Performed By: #### L 505.5000 ####[facility] [address] [place], [address] PCP Negative Normal < 25 ng/mL [facility] Comment on above: Performed By: #### L 505.5000 ####[facility] [address] [place], [address] THC Negative Normal < 50 ng/mL [facility] Comment on above: Performed By: #### L 505.5000 ####[facility] [address] [place], [address] VISTA UDS PH 5 Normal [facility] Comment on above: Performed By: #### L 505.5000 ####[facility] [address] [place], [address] Basic Metabolic Profile (BMP )on 04-01-2024 BUN/CRE 22.9 RATIO High 10-20 [facility] Comment on above: Performed By: #### L 100.0100, L500.2500, L501.5200 ####[facility] [address] [place], [address] CA,Total 8.6 mg/dL Normal 8.5-10.1 [facility] Comment on above: Performed By: #### L 100.0100, L500.2500, L501.5200 ####[facility] [address] [place], [address] Chloride [Moles/Vol] 108 mmol/L High 98-107 [facility] Comment on above: Performed By: #### L 100.0100, L500.2500, L501.5200 ####[facility] [address] [place], [address] CO2 [Moles/Vol] 21.0 mmol/L Normal 21.0-32.0 [facility] Comment on above: Performed By: #### L 100.0100, L500.2500, L501.5200 ####[facility] [address] [place], [address] Creatinine [Mass/Vol] 1.09 mg/dL High 0.55-1.02 [facility] Comment on above: Result Comment: The validity of the calculated GFR GFRAA in patients over70 years has not been determined. Clinical correlation isessential. Performed By: #### L 100.0100, L500.2500, L501.5200 ####[facility] [address] [place], [address] ECRCL 83.85 ml/min Normal [facility] Comment on above: Performed By: #### L 100.0100, L500.2500, L501.5200 ####[facility] [address] [place], [address] EST GFR - AA 66 mL/min Normal >60 [facility] Comment on above: Result Comment: Afri can Scottish GFR Calc Performed By: #### L 100.0100, L500.2500, L501.5200 ####[facility] [address] [place], [address] GAP 9 Normal 5-15 [facility] Comment on above: Performed By: #### L 100.0100, L500.2500, L501.5200 ####[facility] [address] [place], [address] GFR/1.73 sq M.predicted among non-blacks MDRD (S/P/Bld) [Vol rate/Area] 55 mL/min/{1.73_m2} Low >60 [facility] Comment on above: Result Comment: Non- GFR Calc Performed By: #### L 100.0100, L500.2500, L501.5200 ####[facility] [address] [place], [address] Glucose [Mass/Vol] 105 mg/dL Normal 74-106 [facility] Comment on above: Result Comment: Fast ing Glucose result from 100 to 125 mg/dLsuggests IMPAIRED HOMEOSTASIS per A.D.A. criteria. Performed By: #### L 100.0100, L500.2500, L501.5200 ####[facility] [address] [place], [address] Potassium [Moles/Vol] 3.6 mmol/L Normal 3.5-5.1 [facility] Comment on above: Performed By: #### L 100.0100, L500.2500, L501.5200 ####[facility] [address] [place], [address] Sodium [Moles/Vol] 138 mmol/L Normal 136-145 [facility] Comment on above: Performed By: #### L 100.0100, L500.2500, L501.5200 ####[facility] [address] [place], [address] Urea nitrogen [Mass/Vol] 25 mg/dL High 7-18 [facility] Comment on above: Performed By: #### L 100.0100, L500.2500, L501.5200 ####[facility] [address] [place], [address] CBC W/Diff, Automatedon -2 Anisocytosis Ql (Bld) 2+ Normal [facility] Comment on above: Performed By: #### L 100.0100, L500.2500, L501.5200 ####[facility] [address] [place], [address] HYPOCHROMASIA 1+ Normal [facility] Comment on above: Performed By: #### L 100.0100, L500.2500, L501.5200 ####[facility] [address] [place], [address] MICROCYTIC 1+ Normal [facility] Comment on above: Performed By: #### L 100.0100, L500.2500, L501.5200 ####[facility] [address] [place], [address] PLT EST ADEQUATE Normal ADEQ [facility] Comment on above: Performed By: #### L 100.0100, L500.2500, L501.5200 ####[facility] [address] [place], [address] POLYCHROMASIA 1+ Normal [facility] Comment on above: Performed By: #### L 100.0100, L500.2500, L501.5200 ####[facility] [address] [place], [address] SMEAR COMMENT SCANNED Normal [facility] Comment on above: Performed By: #### L 100.0100, L500.2500, L501.5200 ####[facility] [address] [place], [address] TARGET CELLS RARE Normal [facility] Comment on above: Performed By: #### L 100.0100, L500.2500, L501.5200 ####[facility] [address] [place], [address] CPK Total, Creatine Kinaseon 5 CPK TOTAL 4258 U/L High 26-192 [facility] Comment on above: Performed By: #### L 501.3620 ####[facility] [address] [place], [address] Magnesiumon 5 Magnesium [Mass/Vol] 1.9 mg/dL Normal 1.6-2.6 [facility] Comment on above: Performed By: #### L 100.0100, L500.2500, L501.5200 ####[facility] [address] [place], [address] Phosphoruson 04-01-2024 Phosphate [Mass/Vol] 2.5 mg/dL Normal 2.5-4.9 [facility] Comment on above: Performed By: #### L 501.2300 ####[facility] [address] [place], [address] CBC W/Diff, Automatedon 03-09 Absolute Lymph 1.89 X10 3/uL Normal 0.83-4.51 [facility] Comment on above: Performed By: #### L 100.0100 ####[facility] [address] [place], [address] Absolute Neut 8.1 X10 3/uL High 2.0-7.7 [facility] Comment on above: Performed By: #### L 100.0100 ####[facility] [address] [place], [address] Basophils/100 WBC (Bld) 0.4 % Normal 0-1 [facility] Comment on above: Performed By: #### L 100.0100 ####[facility] [address] [place], [address] Eosinophils/100 WBC (Bld) 6.2 % High 0-5 [facility] Comment on above: Performed By: #### L 100.0100 ####[facility] [address] [place], [address] Erythrocyte distribution width (RBC) [Ratio] 21.2 % High 11.6-14.6 [facility] Comment on above: Performed By: #### L 100.0100 ####[facility] [address] [place], [address] Hematocrit (Bld) [Volume fraction] 28.2 % Low 37-47 [facility] Comment on above: Performed By: #### L 100.0100 ####[facility] [address] [place], [address] Hemoglobin (Bld) [Mass/Vol] 8.8 g/dL Low 12.0-15.0 [facility] Comment on above: Performed By: #### L 100.0100 ####[facility] [address] [place], [address] IG% 0.400 Normal 0.0-0.9 [facility] Comment on above: Result Comment: IG% - Immature Granulocytes (promyelocytes, myelocytes andmetamyelocytes) > 1% indicates that a LEFT SHIFT is Present. Performed By: #### L 100.0100 ####[facility] [address] [place], [address] Lymphocytes/100 WBC (Bld) 16.3 % Low 19-41 [facility] Comment on above: Performed By: #### L 100.0100 ####[facility] [address] [place], [address] MCH (RBC) [Entitic mass] 23.3 pg Low 27.0-32.0 [facility] Comment on above: Performed By: #### L 100.0100 ####[facility] [address] [place], [address] MCHC (RBC) [Mass/Vol] 31.2 g/dL Low 32-36 [facility] Comment on above: Performed By: #### L 100.0100 ####[facility] [address] [place], [address] MCV (RBC) [Entitic vol] 74.6 fL Low 81-99 [facility] Comment on above: Performed By: #### L 100.0100 ####[facility] [address] [place], [address] Monocytes/100 WBC (Bld) 6.5 % Normal 0-10 [facility] Comment on above: Performed By: #### L 100.0100 ####[facility] [address] [place], [address] Neutrophils/100 WBC (Bld) 70.2 % High 47-70 [facility] Comment on above: Performed By: #### L 100.0100 ####[facility] [address] [place], [address] Nucleated RBC (Bld) [#/Vol] 0 10*3/uL Normal 0-5 [facility] Comment on above: Performed By: #### L 100.0100 ####[facility] [address] [place], [address] Platelet mean volume (Bld) [Entitic vol] 10.2 fL Normal 6.2-12.0 [facility] Comment on above: Performed By: #### L 100.0100 ####[facility] [address] [place], [address] Platelets (Bld) [#/Vol] 261 10*3/uL Normal 150-450 [facility] Comment on above: Performed By: #### L 100.0100 ####[facility] [address] [place], [address] RBC (Bld) [#/Vol] 3.78 10*6/uL Low 4.2-5.4 [facility] Comment on above: Performed By: #### L 100.0100 ####[facility] [address] [place], [address] RDW SD 54.6 fl High 35.1-43.9 [facility] Comment on above: Performed By: #### L 100.0100 ####[facility] [address] [place], [address] WBC (Bld) [#/Vol] 11.6 10*3/uL High 4.4-11.0 [facility] Comment on above: Performed By: #### L 100.0100 ####[facility] [address] [place], [address] CPK Total, Creatine Kinaseon 03-31-2024 CPK TOTAL 7461 U/L High 26-192 [facility] Comment on above: Performed By: #### L 501.3620, L500.4050 ####[facility] [address] [place], [address] Comprehensive Metabolic Prof ilon 03-31-2024 Albumin [Mass/Vol] 2.4 g/dL Low 3.2-5.0 [facility] Comment on above: Performed By: #### L 501.3620, L500.4050 ####[facility] [address] [place], [address] Albumin/Globulin [Mass ratio] 0.8 {ratio} Low 0.9-2.4 [facility] Comment on above: Performed By: #### L 501.3620, L500.4050 ####[facility] [address] [place], [address] ALK P 109 U/L Normal 45-117 [facility] Comment on above: Performed By: #### L 501.3620, L500.4050 ####[facility] [address] [place], [address] ALT [Catalytic activity/Vol] 84 U/L High 13-56 [facility] Comment on above: Performed By: #### L 501.3620, L500.4050 ####[facility] [address] [place], [address] AST [Catalytic activity/Vol] 263 U/L High 15-37 [facility] Comment on above: Performed By: #### L 501.3620, L500.4050 ####[facility] [address] [place], [address] Bilirubin [Mass/Vol] 1.00 mg/dL Normal 0.20-1.00 [facility] Comment on above: Result Comment: For patients on eltrombopag therapy, use of Dimension [place] TBIL is not recommended. Performed By: #### L 501.3620, L500.4050 ####[facility] [address] [place], [address] BUN/CRE 20.4 RATIO High 10-20 [facility] Comment on above: Performed By: #### L 501.3620, L500.4050 ####[facility] [address] [place], [address] CA,Total 8.2 mg/dL Low 8.5-10.1 [facility] Comment on above: Performed By: #### L 501.3620, L500.4050 ####[facility] [address] [place], [address] Chloride [Moles/Vol] 110 mmol/L High 98-107 [facility] Comment on above: Performed By: #### L 501.3620, L500.4050 ####[facility] [address] [place], [address] CO2 [Moles/Vol] 19.0 mmol/L Low 21.0-32.0 [facility] Comment on above: Performed By: #### L 501.3620, L500.4050 ####[facility] [address] [place], [address] Creatinine [Mass/Vol] 1.37 mg/dL High 0.55-1.02 [facility] Comment on above: Result Comment: The validity of the calculated GFR GFRAA in patients over70 years has not been determined. Clinical correlation isessential. Performed By: #### L 501.3620, L500.4050 ####[facility] [address] [place], [address] ECRCL 66.72 ml/min Normal [facility] Comment on above: Performed By: #### L 501.3620, L500.4050 ####[facility] [address] [place], [address] EST GFR - AA 51 mL/min Low >60 [facility] Comment on above: Result Comment: Afri can Scottish GFR Calc Performed By: #### L 501.3620, L500.4050 ####[facility] [address] [place], [address] GAP 11 Normal 5-15 [facility] Comment on above: Performed By: #### L 501.3620, L500.4050 ####[facility] [address] [place], [address] GFR/1.73 sq M.predicted among non-blacks MDRD (S/P/Bld) [Vol rate/Area] 42 mL/min/{1.73_m2} Low >60 [facility] Comment on above: Result Comment: Non- GFR Calc Performed By: #### L 501.3620, L500.4050 ####[facility] [address] [place], [address] Globulin (S) [Mass/Vol] 3.2 g/dL Normal 2.2-4.2 [facility] Comment on above: Performed By: #### L 501.3620, L500.4050 ####[facility] [address] [place], [address] Glucose [Mass/Vol] 75 mg/dL Normal 74-106 [facility] Comment on above: Performed By: #### L 501.3620, L500.4050 ####[facility] [address] [place], [address] Potassium [Moles/Vol] 2.8 mmol/L Low 3.5-5.1 [facility] Comment on above: Performed By: #### L 501.3620, L500.4050 ####[facility] [address] [place], [address] Sodium [Moles/Vol] 139 mmol/L Normal 136-145 [facility] Comment on above: Performed By: #### L 501.3620, L500.4050 ####[facility] [address] [place], [address] T PROT 5.6 g/dL Low 6.4-8.2 [facility] Comment on above: Performed By: #### L 501.3620, L500.4050 ####[facility] [address] [place], [address] Urea nitrogen [Mass/Vol] 28 mg/dL High 7-18 [facility] Comment on above: Performed By: #### L 501.3620, L500.4050 ####[facility] [address] [place], [address] Magnesiumon 03-31-2024 Magnesium [Mass/Vol] 1.9 mg/dL Normal 1.6-2.6 [facility] Comment on above: Performed By: #### L 501.2300, L501.5200 ####[facility] [address] [place], [address] Phosphoruson 03-31-2024 Phosphate [Mass/Vol] 3.6 mg/dL Normal 2.5-4.9 [facility] Comment on above: Performed By: #### L 501.2300, L501.5200 ####[facility] [address] [place], [address] Potassiumon 03-31-2024 Potassium [Moles/Vol] 3.4 mmol/L Low 3.5-5.1 [facility] Comment on above: Performed By: #### L 501.5600 ####[facility] [address] [place], [address] Urine Cultureon 03-31-2024 URC Culture exhibits no growth. Normal [facility] Comment on above: Performed By: #### M 100.2200 ####[facility] [address] [place], [address] 12 Lead EKGon 03-30-2024 12 Lead EKG Normal [facility] Brain/Head without Contrasto n 03-30-2024 Brain/Head without Contrast Normal [facility] CBC W/Diff, Automatedon 03-09 HYPOCHROMASIA 1+ Normal [facility] Comment on above: Performed By: #### L 100.0100, L300.4310, L501.3620, L500.4050, L300.3900 ####[facility] [address] [place], [address] POLYCHROMASIA RARE Normal [facility] Comment on above: Performed By: #### L 100.0100, L300.4310, L501.3620, L500.4050, L300.3900 ####[facility] [address] [place], [address] Anisocytosis Ql (Bld) 2+ Normal [facility] Comment on above: Performed By: #### L 100.0100, L300.4310, L501.3620, L500.4050, L300.3900 ####[facility] [address] [place], [address] SMEAR COMMENT SCANNED Normal [facility] Comment on above: Performed By: #### L 100.0100, L300.4310, L501.3620, L500.4050, L300.3900 ####[facility] [address] [place], [address] CPK Total, Creatine Kinaseon 03-30-2024 CPK TOTAL 65821 U/L High 26-192 [facility] Comment on above: Performed By: #### L 100.0100, L300.4310, L501.3620, L500.4050, L300.3900 ####[facility] [address] [place], [address] Chest 1 View (Portable)on Chest 1 View (Portable) Normal [facility] Comprehensive Metabolic Prof ilon 03-30-2024 Albumin [Mass/Vol] 3.1 g/dL Low 3.2-5.0 [facility] Comment on above: Performed By: #### L 100.0100, L300.4310, L501.3620, L500.4050, L300.3900 ####[facility] [address] [place], [address] Albumin/Globulin [Mass ratio] 0.8 {ratio} Low 0.9-2.4 [facility] Comment on above: Performed By: #### L 100.0100, L300.4310, L501.3620, L500.4050, L300.3900 ####[facility] [address] [place], [address] ALK P 151 U/L High 45-117 [facility] Comment on above: Performed By: #### L 100.0100, L300.4310, L501.3620, L500.4050, L300.3900 ####[facility] [address] [place], [address] ALT [Catalytic activity/Vol] 93 U/L High 13-56 [facility] Comment on above: Performed By: #### L 100.0100, L300.4310, L501.3620, L500.4050, L300.3900 ####[facility] [address] [place], [address] AST [Catalytic activity/Vol] 304 U/L High 15-37 [facility] Comment on above: Performed By: #### L 100.0100, L300.4310, L501.3620, L500.4050, L300.3900 ####[facility] [address] [place], [address] Bilirubin [Mass/Vol] 1.70 mg/dL High 0.20-1.00 [facility] Comment on above: Result Comment: For patients on eltrombopag therapy, use of Dimension [place] TBIL is not recommended. Performed By: #### L 100.0100, L300.4310, L501.3620, L500.4050, L300.3900 ####[facility] [address] [place], [address] BUN/CRE 15.6 RATIO Normal 10-20 [facility] Comment on above: Performed By: #### L 100.0100, L300.4310, L501.3620, L500.4050, L300.3900 ####[facility] [address] [place], [address] CA,Total 9.6 mg/dL Normal 8.5-10.1 [facility] Comment on above: Performed By: #### L 100.0100, L300.4310, L501.3620, L500.4050, L300.3900 ####[facility] [address] [place], [address] Chloride [Moles/Vol] 105 mmol/L Normal 98-107 [facility] Comment on above: Performed By: #### L 100.0100, L300.4310, L501.3620, L500.4050, L300.3900 ####[facility] [address] [place], [address] CO2 [Moles/Vol] 22.0 mmol/L Normal 21.0-32.0 [facility] Comment on above: Performed By: #### L 100.0100, L300.4310, L501.3620, L500.4050, L300.3900 ####[facility] [address] [place], [address] Creatinine [Mass/Vol] 2.11 mg/dL High 0.55-1.02 [facility] Comment on above: Result Comment: The validity of the calculated GFR GFRAA in patients over70 years has not been determined. Clinical correlation isessential. Performed By: #### L 100.0100, L300.4310, L501.3620, L500.4050, L300.3900 ####[facility] [address] [place], [address] ECRCL 44.30 ml/min Normal [facility] Comment on above: Performed By: #### L 100.0100, L300.4310, L501.3620, L500.4050, L300.3900 ####[facility] [address] [place], [address] EST GFR - AA 31 mL/min Low >60 [facility] Comment on above: Result Comment: Afri can Scottish GFR Calc Performed By: #### L 100.0100, L300.4310, L501.3620, L500.4050, L300.3900 ####[facility] [address] [place], [address] GAP 11 Normal 5-15 [facility] Comment on above: Performed By: #### L 100.0100, L300.4310, L501.3620, L500.4050, L300.3900 ####[facility] [address] [place], [address] GFR/1.73 sq M.predicted among non-blacks MDRD (S/P/Bld) [Vol rate/Area] 26 mL/min/{1.73_m2} Low >60 [facility] Comment on above: Result Comment: Non- GFR Calc Performed By: #### L 100.0100, L300.4310, L501.3620, L500.4050, L300.3900 ####[facility] [address] [place], [address] Globulin (S) [Mass/Vol] 4.0 g/dL Normal 2.2-4.2 [facility] Comment on above: Performed By: #### L 100.0100, L300.4310, L501.3620, L500.4050, L300.3900 ####[facility] [address] [place], [address] Glucose [Mass/Vol] 110 mg/dL High 74-106 [facility] Comment on above: Result Comment: Fast ing Glucose result from 100 to 125 mg/dLsuggests IMPAIRED HOMEOSTASIS per A.D.A. criteria. Performed By: #### L 100.0100, L300.4310, L501.3620, L500.4050, L300.3900 ####[facility] [address] [place], [address] Potassium [Moles/Vol] 3.1 mmol/L Low 3.5-5.1 [facility] Comment on above: Performed By: #### L 100.0100, L300.4310, L501.3620, L500.4050, L300.3900 ####[facility] [address] [place], [address] Sodium [Moles/Vol] 138 mmol/L Normal 136-145 [facility] Comment on above: Performed By: #### L 100.0100, L300.4310, L501.3620, L500.4050, L300.3900 ####[facility] [address] [place], [address] T PROT 7.1 g/dL Normal 6.4-8.2 [facility] Comment on above: Performed By: #### L 100.0100, L300.4310, L501.3620, L500.4050, L300.3900 ####[facility] [address] [place], [address] Urea nitrogen [Mass/Vol] 33 mg/dL High 7-18 [facility] Comment on above: Performed By: #### L 100.0100, L300.4310, L501.3620, L500.4050, L300.3900 ####[facility] [address] [place], [address] Emergency Department Summary on 03-30-2024 Emergency Department Summary Normal [facility] H AND P Exam - Hospitaliston 03-30-2024 H&P Exam - Hospitalist Normal [facility] Lactic Acidon 03-30-2024 Lactate [Moles/Vol] 1.3 mmol/L Normal 0.4-1.9 [facility] Comment on above: Order Comment: Y Performed By: #### L 503.6005, M200.1000, L509.7000 ####[facility] [address] [place], [address] Partial Thromboplast Timeon 03-30-2024 aPTT Coag (Bld) [Time] 25.2 s Normal 24.1-36.2 [facility] Comment on above: Performed By: #### L 100.0100, L300.4310, L501.3620, L500.4050, L300.3900 ####[facility] [address] [place], [address] Pelvis 1 or 2 Viewson 2024 Pelvis 1 or 2 Views Normal [facility] Procalcitoninon 03-30-2024 Procalcitonin 0.24 ng/mL High 0.00-0.09 [facility] Comment on above: Result Comment: A pr ocalcitonin (PCT) level above 2.0 ng/mL on the first day of ICU admission is associated with a high risk for progression to severe sepsis and/or septic shock. A PCT level below 0.5 ng/mL on the first day of ICU admission is associated with a low risk for progression to severe and/or septic shock. Note: Concentrations <0.5 ng/mL do not exclude an infection on account of localized infections (without systemic signs) which can be associated with such low concentrations, or a systemic infection in its initial stages (<6 hours). Furthermore, increased procalcitonin can occur without infection. PCT concentrations between 0.5 and 2.0 ng/mL should be interpreted taking into account the patient's history. It is recommended to retest PCT within 6-24 hours if any concentrations <2 ng/mL are obtained. Performed By: #### L 503.6005, M200.1000, L509.7000 ####[facility] [address] [place], [address] Prothrombin Time w/INRon INR Coag (PPP) [Relative time] 1.2 {INR} Normal [facility] Comment on above: Performed By: #### L 100.0100, L300.4310, L501.3620, L500.4050, L300.3900 ####[facility] [address] [place], [address] PT Coag (PPP) [Time] 15.5 s High 11.7-14.9 [facility] Comment on above: Performed By: #### L 100.0100, L300.4310, L501.3620, L500.4050, L300.3900 ####[facility] [address] [place], [address] Spine Cervical without Contr ason 03-30-2024 Spine Cervical without Contras Normal [facility] Tibia Fibula 2 Viewson 03-30 Tibia Fibula 2 Views Normal [facility] Urinalysis, Completeon 03-30 RBC 0-5 SEEN Normal 0-5 [facility] Comment on above: Order Comment: CLEAN CATCH Performed By: #### L 400.0001 ####[facility] [address] [place], [address] BACTERIA RARE Normal None Seen [facility] Comment on above: Order Comment: CLEAN CATCH Performed By: #### L 400.0001 ####[facility] [address] [place], [address] WBC 5-10 SEEN Normal 0-5 [facility] Comment on above: Order Comment: CLEAN CATCH Performed By: #### L 400.0001 ####[facility] [address] [place], [address] EPI,SQUAMOUS 0-5 SEEN Normal 5-10 [facility] Comment on above: Order Comment: CLEAN CATCH Performed By: #### L 400.0001 ####[facility] [address] [place], [address] Mucus Ql (Urine sed) 0 SEEN Normal [facility] Comment on above: Order Comment: CLEAN CATCH Performed By: #### L 400.0001 ####[facility] [address] [place], [address] XR Foot - left AP and Latera l and obliqueon 03-28-2024 IMPRESSION: See find ings Grid Trimmer: PSCB Transcribe Date/Time: Mar 28 2024 4:08P Dictated by : MAHOGANY GATES MD This examination was interpreted and the report reviewed and electronically signed by: MAHOGANY GATES MD on Mar 28 2024 4:12PM [facility] DIVISION OF RADIOLOGY * * *Final Report* * * DATE OF EXAM: Mar 24 2024 12:03PM [id number] [id number] - XR FOOT 3V AP/LAT/OBL LT / PROCEDURE REASON: Plantar fasciitis * * * * Physician Interpretation * * * * PROCEDURE: Left foot INDICATION: Plantar fasciitis .PT STATES LEFT FOOT MEDIAL FOOT PAIN TECHNIQUE: XR FOOT 3V AP/LAT/OBL LT COMPARISON: 04/27/2011 FINDINGS: Remote 5th metatarsal fracture with evidence for nonunion. There is increased separation at the fracture site compared to previous. Lateral bridging plate in the 5th metatarsal is now fractured proximally. Screws remain intact. Remote, healed 4th metatarsal base fracture. 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 Small plantar calcaneal spur and Achilles enthesophyte, only marginally larger than previous. No acute fracture or dislocation. DIVISION OF RADIOLOGY Provider, Linsey [place]ster [place] - 03/28/2024 * * *Final Report* * * DATE OF EXAM: Mar 24 2024 12:03PM [id number] [id number] - XR FOOT 3V AP/LAT/OBL LT / PROCEDURE REASON: Plantar fasciitis * * * * Physician Interpretation * * * * PROCEDURE: Left foot INDICATION: Plantar fasciitis .PT STATES LEFT FOOT MEDIAL FOOT PAIN TECHNIQUE: XR FOOT 3V AP/LAT/OBL LT COMPARISON: 04/27/2011 FINDINGS: Remote 5th metatarsal fracture with evidence for nonunion. There is increased separation at the fracture site compared to previous. Lateral bridging plate in the 5th metatarsal is now fractured proximally. Screws remain intact. Remote, healed 4th metatarsal base fracture. 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 Small plantar calcaneal spur and Achilles enthesophyte, only marginally larger than previous. No acute fracture or dislocation. IMPRESSION IMPRESSION: See findings Grid Trimmer: PSCB Transcribe Date/Time: Mar 28 2024 4:08P Dictated by : MAHOGANY GATES MD This examination was interpreted and the report reviewed and electronically signed by: MAHOGANY GATES MD on Mar 28 2024 4:12PM EST [facility] XR Foot - left AP and Latera l and obliqueOrdered By: [facility] Provider on 03-28-2024 [facility] Emergency Department Summary on 03-26-2024 Emergency Department Summary Normal [facility] Shoulder min 2 Viewson 03-26 Shoulder min 2 Views Normal [facility] Wrist min 3 Viewson 03-26-19 Wrist min 3 Views Normal [facility] CNOVon 03-24-2024 CNOV Office Visit (PODIWS ) THUY WHITE ([id number]) 1965 F Date Time Provider Department 03/24/24 11:00 AM ZULMA SOL TIARA During your visit today, we recorded the following information about you: Zulma Sol 03/30/2024 9:03 PM Signed FOLLOW UP PODIATRIC OFFICE VISIT Chief Complaint: This 58 year old who presents for left foot pain Patient comes to the clinic today with complaint of left heel pain Has been present x 1 month Patient states the pain is most intense when she gets up from a seated position Current treatment includes advil. Patient is using inserts which does provide some relief. Here to discuss options PAIN EVALUATION 03/24/2024 1103 Pain Level: 4 Pain Location: Foot-Left Description: Stabbing/Not Incision Duration Amount of Time: 7 Duration Units: Months Frequency: Continuous Hemoglobin A1C Date Value Ref Range Status 11/24/2017 5.4 4.3 - 5.6 % Final PCP: No primary care provider on file. 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 Chronic right SI joint pain 07/13/2018 Esophageal reflux 2006 Essential hypertension 11/26/2017 Fracture of right clavicle 11/15/2015 Generalized anxiety disorder 2004 with panic attacks Herpes genitalis Hypoparathyroidism ([facility]) parathyroid implant Left forearm Hypothyroidism 09/30/2018 IFG (impaired fasting glucose) 05/08/2014 Impaired fasting glucose Insomnia 03/16/2013 Iron deficiency anemia Irritable bowel syndrome 1998 diarrhea prone, dairy exacerbates MEN 1 (multiple endocrine neoplasia) ([facility] Morbid obesity ([facility]) 2006 s/p sleeve Dr Dale Obstructive sleep apnea fair complaince with CPAP Primary hyperparathyroidism ([facility]) 3 1/2 gland parathyroidectomy Renal insufficiency Sternoclavicular joint subluxation 07/16/2016 Current Outpatient Medications Medication Sig albuterol HFA (PROVENTIL HFA, VENTOLIN HFA) 90 mcg/actuation inhaler inhale 2 puffs by mouth every 4 hours if needed for wheezing benztropine (COGENTIN) 0.5 mg tablet Take 1 tablet by mouth every 12 hours. pantoprazole sodium (PROTONIX ORAL) Take 1 capsule by mouth once daily. VRAYLAR 1.5 mg capsule Take 1 capsule by mouth every afternoon. BELSOMRA 10 mg tab Take 1 tablet by mouth daily at bedtime. TRINTELLIX 20 mg tablet take 1 tablet by mouth once daily AT THE SAME TIME EACH DAY for depression cyanocobalamin (VITAMIN B-12) 1,000 mcg tab take 1 tablet by mouth once daily trimethoprim-polymyxin (POLYTRIM) 10,000 unit- 1 mg/mL ophthalmic solution Use 1 Drop in the left eye three times daily. levothyroxine (SYNTHROID) 100 mcg tablet take 1 tablet by mouth once daily atorvastatin (LIPITOR) 20 mg tablet take 1 tablet by mouth once daily calcitriol (ROCALTROL) 0.5 mcg capsule take 2 capsules by mouth once daily furosemide (LASIX) 20 mg tablet take 1 tablet by mouth twice a day potassium chloride ER (K-DUR, KLOR-CON) 20 mEq tablet take 1 tablet by mouth four times a day magnesium oxide (MAG-OX) 400 mg (241.3 mg magnesium) tablet take 1 tablet by mouth once daily spironolactone (ALDACTONE) 25 mg tablet take 1/2 tablet by mouth once daily cholecalciferol, Vitamin D3, (VITAMIN D3) 1,250 mcg (50,000 unit) cap capsule Take 1 capsule by mouth one time a week. hydrOXYzine pamoate (VISTARIL) 25 mg capsule Take 1 capsule by mouth four times daily as needed for anxiety for up to 30 doses. fluticasone (FLONASE) 50 mcg/actuation nasal spray instill 1 spray into each nostril at bedtime calcium carbonate (CALCIUM ANTACID) 500 mg chew Take 1 tablet by mouth twice daily. ARIPiprazole (ABILIFY) 2 mg tablet Take 10 mg by mouth once daily. cholecalciferol (VITAMIN D-3) 2,000 unit tablet Take 2,000 Units by mouth once daily. zolpidem (AMBIEN) 5 mg tablet Take 5 mg by mouth daily at bedtime. buPROPion XL (WELLBUTRIN XL) 150 mg 24 hr tablet Take 1 tablet by mouth once daily. (Psychiatrist) buPROPion XL (WELLBUTRIN XL) 300 mg 24 hr tablet Take 1 tablet by mouth once daily. ALPRAZolam (XANAX) 0.5 mg tablet Take 1 tablet by mouth daily at bedtime. ramelteon (ROZEREM) 8 mg tablet take 1 tablet by mouth at bedtime if needed sleep (Patient not taking: Reported on 03/24/2024) omeprazole (PRILOSEC) 20 mg capsule take 1 capsule by mouth twice a day (Patient not taking: Reported on 01/24/2024) venlafaxine (EFFEXOR) 75 mg tablet Take 3 tablets by mouth once daily. (Patient not taking: Reported on 03/24/2024) No current facility-administered medications for this visit. ALLERGIES Allergen Reactions Contrast Dye Intolerance Ferrous Gluconate GI Upset Nausea Iodides Intolerance Morphine Rash Ondansetron Other: See Comments Oxycontin [Oxycodon* Rash, Swelling R (more content not included)... Normal [facility] XR FOOT 3V AP/LAT/OBL LTon 0 03-24-2024 XR FOOT 3V AP/LAT/OBL LT * * *Final Report* * * DATE OF EXAM: Mar 24 2024 12:03PM WRX [id number] - XR FOOT 3V AP/LAT/OBL LT / PROCEDURE REASON: Plantar fasciitis * * * * Physician Interpretation * * * * PROCEDURE: Left foot INDICATION: Plantar fasciitis .PT STATES LEFT FOOT MEDIAL FOOT PAIN TECHNIQUE: XR FOOT 3V AP/LAT/OBL LT COMPARISON: 04/27/2011 FINDINGS: Remote 5th metatarsal fracture with evidence for nonunion. There is increased separation at the fracture site compared to previous. Lateral bridging plate in the 5th metatarsal is now fractured proximally. Screws remain intact. Remote, healed 4th metatarsal base fracture. 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 Small plantar calcaneal spur and Achilles enthesophyte, only marginally larger than previous. No acute fracture or dislocation. IMPRESSION: See findings Grid Trimmer: PSCB Transcribe Date/Time: Mar 28 2024 4:08P Dictated by : MAHOGANY GATES MD This examination was interpreted and the report reviewed and electronically signed by: MAHOGANY GATES MD on Mar 28 2024 4:12PM EST [id number] Normal [facility] XR Foot - left AP and Latera l and obliqueon 03-24-2024 Radiology Study observation (narrative) [facility] Emergency Department Summary on 02-22-2024 Emergency Department Summary Normal [facility] Shoulder min 2 Viewson 02-21 Shoulder min 2 Views Normal [facility] 12 Lead EKGon 02-18-2024 12 Lead EKG Normal [facility] Bedside Glucoseon 02-18-2024 FINGERSTICK GLU 136 mg/dL High 74-106 [facility] Comment on above: Result Comment: JACQUELYN KIM OF PATIENT CARE PER NURSING PROTOCOL Performed By: #### L 501.080 ####[facility] [address] [place], [address] CBC W/Diff, Automatedon 02-05 ACANTHOCYTE RARE Normal [facility] Comment on above: Performed By: #### L 503.6005, L100.0100, L500.4050 ####[facility] [address] [place], [address] Anisocytosis Ql (Bld) 2+ Normal [facility] Comment on above: Performed By: #### L 503.6005, L100.0100, L500.4050 ####[facility] [address] [place], [address] MICROCYTIC 2+ Normal [facility] Comment on above: Performed By: #### L 503.6005, L100.0100, L500.4050 ####[facility] [address] [place], [address] SCHISTOCYTES RARE Normal [facility] Comment on above: Performed By: #### L 503.6005, L100.0100, L500.4050 ####[facility] [address] [place], [address] TARGET CELLS RARE Normal [facility] Comment on above: Performed By: #### L 503.6005, L100.0100, L500.4050 ####[facility] [address] [place], [address] PLT EST SLT INC Normal ADEQ [facility] Comment on above: Performed By: #### L 503.6005, L100.0100, L500.4050 ####[facility] [address] [place], [address] SMEAR COMMENT SCANNED Normal [facility] Comment on above: Performed By: #### L 503.6005, L100.0100, L500.4050 ####[facility] [address] [place], [address] Comprehensive Metabolic Prof ilon 02-18-2024 Albumin [Mass/Vol] 3.3 g/dL Normal 3.2-5.0 [facility] Comment on above: Performed By: #### L 503.6005, L100.0100, L500.4050 ####[facility] [address] [place], [address] Albumin/Globulin [Mass ratio] 0.8 {ratio} Low 0.9-2.4 [facility] Comment on above: Performed By: #### L 503.6005, L100.0100, L500.4050 ####[facility] [address] [place], [address] ALK P 102 U/L Normal 45-117 [facility] Comment on above: Performed By: #### L 503.6005, L100.0100, L500.4050 ####[facility] [address] [place], [address] ALT [Catalytic activity/Vol] 13 U/L Normal 13-56 [facility] Comment on above: Performed By: #### L 503.6005, L100.0100, L500.4050 ####[facility] [address] [place], [address] AST [Catalytic activity/Vol] 14 U/L Low 15-37 [facility] Comment on above: Performed By: #### L 503.6005, L100.0100, L500.4050 ####[facility] [address] [place], [address] Bilirubin [Mass/Vol] 0.60 mg/dL Normal 0.20-1.00 [facility] Comment on above: Result Comment: For patients on eltrombopag therapy, use of Dimension [place] TBIL is not recommended. Performed By: #### L 503.6005, L100.0100, L500.4050 ####[facility] [address] [place], [address] BUN/CRE 9.8 RATIO Low 10-20 [facility] Comment on above: Performed By: #### L 503.6005, L100.0100, L500.4050 ####[facility] [address] [place], [address] CA,Total 8.4 mg/dL Low 8.5-10.1 [facility] Comment on above: Performed By: #### L 503.6005, L100.0100, L500.4050 ####[facility] [address] [place], [address] Chloride [Moles/Vol] 100 mmol/L Normal 98-107 [facility] Comment on above: Performed By: #### L 503.6005, L100.0100, L500.4050 ####[facility] [address] [place], [address] CO2 [Moles/Vol] 26.0 mmol/L Normal 21.0-32.0 [facility] Comment on above: Performed By: #### L 503.6005, L100.0100, L500.4050 ####[facility] [address] [place], [address] Creatinine [Mass/Vol] 1.64 mg/dL High 0.55-1.02 [facility] Comment on above: Result Comment: The validity of the calculated GFR GFRAA in patients over70 years has not been determined. Clinical correlation isessential. Performed By: #### L 503.6005, L100.0100, L500.4050 ####[facility] [address] [place], [address] ECRCL 55.90 ml/min Normal [facility] Comment on above: Performed By: #### L 503.6005, L100.0100, L500.4050 ####[facility] [address] [place], [address] EST GFR - AA 41 mL/min Low >60 [facility] Comment on above: Result Comment: Afri can Scottish GFR Calc Performed By: #### L 503.6005, L100.0100, L500.4050 ####[facility] [address] [place], [address] GAP 10 Normal 5-15 [facility] Comment on above: Performed By: #### L 503.6005, L100.0100, L500.4050 ####[facility] [address] [place], [address] GFR/1.73 sq M.predicted among non-blacks MDRD (S/P/Bld) [Vol rate/Area] 34 mL/min/{1.73_m2} Low >60 [facility] Comment on above: Result Comment: Non- GFR Calc Performed By: #### L 503.6005, L100.0100, L500.4050 ####[facility] [address] [place], [address] Globulin (S) [Mass/Vol] 3.9 g/dL Normal 2.2-4.2 [facility] Comment on above: Performed By: #### L 503.6005, L100.0100, L500.4050 ####[facility] [address] [place], [address] Glucose [Mass/Vol] 141 mg/dL High 74-106 [facility] Comment on above: Result Comment: Fast ing Glucose result greater than or equal to 126 mg/dLsuggests DIABETES MELLITUS per A.D.A. criteria. Performed By: #### L 503.6005, L100.0100, L500.4050 ####[facility] [address] [place], [address] Potassium [Moles/Vol] 3.1 mmol/L Low 3.5-5.1 [facility] Comment on above: Performed By: #### L 503.6005, L100.0100, L500.4050 ####[facility] [address] [place], [address] Sodium [Moles/Vol] 136 mmol/L Normal 136-145 [facility] Comment on above: Performed By: #### L 503.6005, L100.0100, L500.4050 ####[facility] [address] [place], [address] T PROT 7.2 g/dL Normal 6.4-8.2 [facility] Comment on above: Performed By: #### L 503.6005, L100.0100, L500.4050 ####[facility] [address] [place], [address] Urea nitrogen [Mass/Vol] 16 mg/dL Normal 7-18 [facility] Comment on above: Performed By: #### L 503.6005, L100.0100, L500.4050 ####[facility] [address] [place], [address] Emergency Department Summary on 02-18-2024 Emergency Department Summary Normal [facility] L501.5425on 02-18-2024 TROPONIN-I HS 4 pg/mL Normal 3.0-54.0 [facility] Comment on above: Order Comment: 1Y Result Comment: Plea se Note: New Test Units and Gender Specific Reference Ranges. For more information see Policy Stat Procedure [place] High Sensitivity Troponin (TNIH) and attachments. Performed By: #### L 501.5453 ####[facility] [address] [place], [address] Lactic Acidon 02-18-2024 Lactate [Moles/Vol] 1.9 mmol/L Normal 0.4-1.9 [facility] Comment on above: Order Comment: Y Performed By: #### L 503.6005, L100.0100, L500.4050 ####[facility] [address] [place], [address] Urinalysis, Completeon 02-17 CAST,HYALINE 0-5 SEEN Normal 0-5 [facility] Comment on above: Order Comment: CLEAN CATCH Performed By: #### L 400.0001 ####[facility] [address] [place], [address] EPI,SQUAMOUS 0-5 SEEN Normal 5-10 [facility] Comment on above: Order Comment: CLEAN CATCH Performed By: #### L 400.0001 ####[facility] [address] [place], [address] Mucus Ql (Urine sed) 1+ /hpf Normal [facility] Comment on above: Order Comment: CLEAN CATCH Performed By: #### L 400.0001 ####[facility] [address] [place], [address] WBC 0-5 SEEN Normal 0-5 [facility] Comment on above: Order Comment: CLEAN CATCH Performed By: #### L 400.0001 ####[facility] [address] [place], [address] BACTERIA 0 SEEN Normal None Seen [facility] Comment on above: Order Comment: CLEAN CATCH Performed By: #### L 400.0001 ####[facility] [address] [place], [address] RBC 0 SEEN Normal 0-5 [facility] Comment on above: Order Comment: CLEAN CATCH Performed By: #### L 400.0001 ####[facility] [address] [place], [address] Internal Medicine Office Vis iton 01-31-2024 Internal Medicine Office Visit Normal [facility] Urinalysis, Completeon 01-30 EPI,SQUAMOUS 0-5 SEEN Normal 5-10 [facility] Comment on above: Order Comment: GARDENIA CTOR TO SPECIFY Performed By: #### L 400.0001 ####[facility] [address] [place], [address] BACTERIA 0 SEEN Normal None Seen [facility] Comment on above: Order Comment: GARDENIA CTOR TO SPECIFY Performed By: #### L 400.0001 ####[facility] [address] [place], [address] Mucus Ql (Urine sed) 0 SEEN Normal [facility] Comment on above: Order Comment: GARDENIA CTOR TO SPECIFY Performed By: #### L 400.0001 ####[facility] [address] [place], [address] RBC 0 SEEN Normal 0-5 [facility] Comment on above: Order Comment: GARDENIA CTOR TO SPECIFY Performed By: #### L 400.0001 ####[facility] [address] [place], [address] WBC 0 SEEN Normal 0-5 [facility] Comment on above: Order Comment: GARDENIA CTOR TO SPECIFY Performed By: #### L 400.0001 ####[facility] [address] [place], [address] C peptide SerPl-mCncon 01-23 C peptide [Mass/Vol] 6.3 ng/mL High 1.1-4.4 [facility] Comment on above: Order Comment: Speci men Type: BLOOD SPECIMENOrdering Facility: [facility] Address: [address] [place] [address] Performed By: #### 1 986-9 ####[facility] LABCLIA [id number] [address] [address] [place] C peptide [Mass/Vol]on 01-23 Interpretation and review of laboratory results Abnormal [facility] C-PEPTIDE BLDon 01-24-2024 C peptide [Mass/Vol] 6.3 ng/mL High 1.1 - 4 .4 ng/mL [facility] CNOVon 01-24-2024 CNOV Office Visit (ENSUMN ) THUY WHITE ([id number]) 1965 F Date Time Provider Department 01/24/24 11:45 AM PETER SIGALA During your visit today, we recorded the following information about you: Pulse Blood pressure Weight 106/minute 123/53 142.5 kg Crystal Caputo OCCA 01/24/2024 10:55 AM Signed Thank you for choosing the [facility] Department of Endocrinology, Diabetes and Metabolism. Did you know that you need to call 48 hours in advance of your scheduled visit, if you are unable to make your appointment? The Endocrinology [facility] Met[facility] thanks you for your commitment, because patients not showing to their appointment results in a lost opportunity for patients to receive [facility] health care at the [facility]. To Cancel an appointment, please choose one of the following: - Call the Appointment Call Center at [phone] - From [employer], Go to Appointments - Cancel Appts If cancelling, consider your need to reschedule to prevent further delays in your care. 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 I last evaluated her with a virtual visit in August 2022. In terms of her pituitary axis, she has no history of pituitary tumors nor abnormal laboratory studies. I have ordered a prolactin to be drawn today. In terms of her parathyroid axis, in 2005 she had undergone a 3 and half gland parathyroidectomy. She had low PTH values following this. Subsequent forearm autotransplant with cryopreserved material did not take as well. Despite this, with undetectable PTH levels, her calciums have been easy to control. She is currently on 400 mg of calcium carbonate as well as 0.75 of calcitriol and 2000 of vitamin D3. I have laboratory studies from December 01, 2023 that show a calcium of 9.0 with an undetectable PTH. 25-hydroxy vitamin D measures 35.3. Terms of her pancreatic axis, she has had no prior pancreatic surgery. Since 2010 she has been followed for a small enhancing mass in the head of her pancreas. In July [address] scan demonstrated a stable 1.2 cm mass in the head of the pancreas. She has had no history of hormone hypersecretion. Previously, she had some issues with diarrhea but this is resolved since stopping dairy products. She has a panel of pancreatic hormones pending from today. Her major issue has been that of her weight management. In 2006 she underwent a gastric sleeve. She had some temporary weight loss but has subsequently regained weight. Her weight currently measures 314 pounds with a BMI of 49. She has undergone bilateral knee replacements. I am awaiting the results of today's laboratory studies to make my final assessment. Her parathyroid axis continues to be stable and easily controlled. I will refer her back to our bariatric group for ongoing weight management. In any case, I would plan to see her back in the office in 1 years time with an M EN 1 laboratory panel prior to that visit. I appreciate being involved in the care of your patient and please feel free to contact me should you have additional questions. 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 - pantoprazole sodium (PROTONIX ORAL) Take by mouth. - VRAYLAR 1.5 mg capsule Take 1 capsule by mouth every afternoon. - BELSOMRA 10 mg tab Take 1 tablet by mouth daily at bedtime. - TRINTELLIX 20 mg tablet take 1 tablet by mouth once daily AT THE SAME TIME EACH DAY for depression - ramelteon (ROZEREM) 8 mg tablet take 1 tablet by mouth at bedtime if needed sleep - cyanocobalamin (VITAMIN B-12) 1,000 mcg tab take 1 tablet by mo (more content not included)... Normal [facility] Calcium SerPl-mCncon 024 Calcium [Mass/Vol] 9.9 mg/dL Normal 8.5-10.2 [facility] Comment on above: Order Comment: Speci men Type: BLOOD SPECIMENOrdering Facility: [facility] Address: [address] [place] [address] Performed By: #### 2 777-1, 48726-0, 67825-3, 1122-3 ####[facility] LABCLIA [id number] [place] [address] [place] CgA SerPl-mCncon 01-24-2024 Chromogranin A [Mass/Vol] 278.6 ng/mL High <187.0 [facility] Comment on above: Order Comment: Speci men Type: BLOOD SPECIMENOrdering Facility: [facility] Address: [address] [place] [address] Result Comment: The Chromogranin A test was performed using the Turbocoating CgA II KRYPTOR method. Results obtained with different assay methods or kits cannot be used interchangeably. Performed By: #### 9 811-1 ####[facility] LABCLIA [id number] [place] [address] [place] GLUCOSE, FASTINGon Glucose post fast [Mass/Vol] 110 mg/dL High 74 - 99 mg/dL [facility] Comment on above: [place] Diabetes As sociation guidelines state that a diabetes mellitus diagnosis is preliminarily made when the fasting plasma glucose meets or exceeds 126 mg/dL. In the absence of unequivocal hyperglycemia, results should be confirmed with repeat testing. Patients are at increased risk for diabetes mellitus (prediabetes) when the fasting glucose is 100 to 125 mg/dL. Gastrin SerPl-mCncon 024 Gastrin [Mass/Vol] 722.0 pg/mL High <115.0 [facility] Comment on above: Order Comment: [facility] Type: BLOOD SPECIMEN [facility] Address: [address] [place] [address] Result Comment: The Gastrin test was performed using the Siemens Immulite chemiluminescent immunometric method. Results obtained with different assay methods or kits cannot be used interchangeably. Performed By: #### 1 558-6 #### [facility] CLIA [id number] [address] [place] [address] [place] Glucose p fast SerPl-mCncon 01-24-2024 Glucose post fast [Mass/Vol] 110 mg/dL High 74-99 [facility] Comment on above: Order Comment: Phi jasson Type: BLOOD SPECIMEN [facility] Address: [address] [place] [address] Result Comment: [place] Diabetes Association guidelines state that a diabetes mellitus diagnosis is preliminarily made when the fasting plasma glucose meets or exceeds 126 mg/dL. In the absence of unequivocal hyperglycemia, results should be confirmed with repeat testing. Patients are at increased risk for diabetes mellitus (prediabetes) when the fasting glucose is 100 to 125 mg/dL. Performed By: #### 1 558-6 #### [facility] CLIA [id number] [address] [place] [address] [place] Glucose post fast [Mass/Vol] on 01-24-2024 Interpretation and review of laboratory results Abnormal [facility] INSULIN ASSAY BLOODon 2023 Insulin Qn 14.8 u[IU]/mL 3.0 - 25.0 mU/L [facility] INSULIN LIK GR FAC Ion 01-23 INSULIN LIK GR FAC 1 122 ng/mL Normal 47-236 [facility] Comment on above: Order Comment: Speci men Type: BLOOD SPECIMEN [facility] Address: [address] [place] [address] Performed By: #### 1 558-6 #### [facility] CLIA [id number] [address] [place] [address] [place] Insulin Qnon 01-24-2024 Interpretation and review of laboratory results Normal [facility] Insulin SerPl-aCncon 024 Insulin Qn 14.8 u[IU]/mL Normal 3.0-25.0 [facility] Comment on above: Order Comment: Speci men Type: BLOOD SPECIMENOrdering Facility: [facility] Address: [address] [place] [address] Performed By: #### 2 0448-7 ####[facility] LABCLIA [id number] [place] [address] [place] Magnesium SerPl-mCncon 01-23 Magnesium [Mass/Vol] 1.8 mg/dL Normal 1.7-2.3 [facility] Comment on above: Order Comment: Speci men Type: BLOOD SPECIMENOrdering Facility: [facility] Address: [address] [place] [address] Performed By: #### 2 777-1, 80104-4, 54108-3, 2842-3 ####[facility] LABCLIA [id number] [place] [address] [place] PANCREATIC POLYPEPTIDEon PANCREATIC POLYPEPTIDE 3970 pg/mL High 0-435 [facility] Comment on above: Order Comment: Speci men Type: BLOOD SPECIMENOrdering Facility: [facility] Address: [address] [place] [address] Result Comment: Specimen diluted and results confirmed. INTERPRETIVE INFORMATION: Pancreatic Polypeptide This test was developed and its performance characteristics determined by [employer]. It has not been cleared or approved by the [place] Food and Drug Administration. This test was performed in a CLIA certified laboratory and is intended for clinical purposes. Performed By: [employer] [address] [place] [address] Patient Service Rep: Jeronimo Lama MD, PhD CLIA Number: [id number] Performed By: #### P ANPOL ####[facility] [id number] [place] [address] PROINSULIN INTACT BLOODon PROINSULIN INTACT BLOOD 5.2 pmol/L Normal <=7.2 [facility] Comment on above: Order Comment: Speci men Type: BLOOD SPECIMEN [facility] Address: [address] [place] [address] Result Comment: Perf ormed By: [facility] [employer] [address] [place] [address] Patient Service Rep: Jeronimo Lama MD, PhD CLIA Number: [id number] Performed By: #### 1 558-6 #### [facility] CLIA [id number] [address] [place] [address] [place] PTH-Intact SerPl-mCncon 11- Parathyrin.intact [Mass/Vol] pg/mL Low 15-65 [facility] Comment on above: Order Comment: Speci men Type: BLOOD SPECIMEN [facility] Address: [address] [place] [address] Result Comment: Resu lt rechecked. Performed By: #### 1 558-6 #### [facility] CLIA [id number] [address] [place], [place] [id number] [place] Phosphate SerPl-mCncon 01-23 Phosphate [Mass/Vol] 4.2 mg/dL Normal 2.7-4.8 [facility] Comment on above: Order Comment: Speci men Type: BLOOD SPECIMENOrdering Facility: [facility] Address: [address] [place] [address] Performed By: #### 2 777-1, 78501-2, 08214-1, 2842-3 ####[facility] LABCLIA [id number] [place] [address] [place] Prolactin SerPl-mCncon 01-23 Prolactin [Mass/Vol] 12.7 ng/mL Normal 4.4-33.8 [facility] Comment on above: Order Comment: Speci men Type: BLOOD SPECIMENOrdering Facility: [facility] Address: [address] [place] [address] Result Comment: Prol actin test is performed using the [employer] Electrochemiluminescence Immunoassay method. Results obtained with different methods or kits cannot be used interchangeably. Performed By: #### 2 777-1, 98285-6, 89750-4, 2842-3 ####[facility] LABCLIA [id number] [place] [id number] [place] SOMATOSTATIN BLDon 4 SOMATOSTATIN <21 Normal ADULT: < OR = 30 [facility] Comment on above: Order Comment: Speci men Type: BLOOD SPECIMENOrdering Facility: [facility] Address: [address] [place] [address] Result Comment: This test was developed and its analytical performance characteristics have been determined by [employer]. It has not been cleared or approved by FDA. This assay has been validated pursuant to the CLIA regulations and is used for clinical purposes. TEST PERFORMED AT: [id number] [facility] [address] [id number] Food Service Lead: Stephan Cardona MD, PhD, GEOFFREY Performed By: #### S SHANNON ####[facility] [id number] [address] [place] [address] VASOACTIVE INTESTINAL POLYPE PTIDE (VIP), PLASMAon 01-24-2024 VASOACTIVE INTESTINAL POLYPEPTIDE 20.0 pg/mL Normal 0.0-89.1 [facility] Comment on above: Order Comment: Speci men Type: BLOOD SPECIMENOrdering Facility: [facility] Address: [address] [place] [address] Result Comment: This test was developed and its performance characteristics determined by [employer]. It has not been cleared or approved by the U.S. Food and Drug Administration. This test was performed in a CLIA-certified laboratory and is intended for clinical purposes. Performed By: [employer] [address] [place] [address] Patient Service Rep: Jeronimo Lama MD, PhD CLIA Number: [id number] Performed By: #### V IP ####[facility] [id number] [place] [address] MR/BMS.BPon 01-19-2024 MR/BMS.BP Normal [facility] Basic Metabolic Profile (BMP )on 01-07-2024 BUN/CRE 11.3 RATIO Normal 10-20 [facility] Comment on above: Performed By: #### L 501.5200, L500.2500, L501.3620 ####[facility] [address] [place], [address] CA,Total 8.3 mg/dL Low 8.5-10.1 [facility] Comment on above: Performed By: #### L 501.5200, L500.2500, L501.3620 ####[facility] [address] [place], [address] Chloride [Moles/Vol] 99 mmol/L Normal 98-107 [facility] Comment on above: Performed By: #### L 501.5200, L500.2500, L501.3620 ####[facility] [address] [place], [address] CO2 [Moles/Vol] 25.0 mmol/L Normal 21.0-32.0 [facility] Comment on above: Performed By: #### L 501.5200, L500.2500, L501.3620 ####[facility] [address] [place], [address] Creatinine [Mass/Vol] 1.94 mg/dL High 0.55-1.02 [facility] Comment on above: Result Comment: The validity of the calculated GFR GFRAA in patients over70 years has not been determined. Clinical correlation isessential. Performed By: #### L 501.5200, L500.2500, L501.3620 ####[facility] [address] [place], [address] EST GFR - AA 34 mL/min Low >60 [facility] Comment on above: Result Comment: Afri can Scottish GFR Calc Performed By: #### L 501.5200, L500.2500, L501.3620 ####[facility] [address] [place], [address] GAP 12 Normal 5-15 [facility] Comment on above: Performed By: #### L 501.5200, L500.2500, L501.3620 ####[facility] [address] [place], [address] GFR/1.73 sq M.predicted among non-blacks MDRD (S/P/Bld) [Vol rate/Area] 28 mL/min/{1.73_m2} Low >60 [facility] Comment on above: Result Comment: Non- GFR Calc Performed By: #### L 501.5200, L500.2500, L501.3620 ####[facility] [address] [place], [address] Glucose [Mass/Vol] 63 mg/dL Low 74-106 [facility] Comment on above: Performed By: #### L 501.5200, L500.2500, L501.3620 ####[facility] [address] [place], [address] Potassium [Moles/Vol] 3.4 mmol/L Low 3.5-5.1 [facility] Comment on above: Performed By: #### L 501.5200, L500.2500, L501.3620 ####[facility] [address] [place], [address] Sodium [Moles/Vol] 136 mmol/L Normal 136-145 [facility] Comment on above: Performed By: #### L 501.5200, L500.2500, L501.3620 ####[facility] [address] [place], [address] Urea nitrogen [Mass/Vol] 22 mg/dL High 7-18 [facility] Comment on above: Performed By: #### L 501.5200, L500.2500, L501.3620 ####[facility] [address] [place], [address] BUN Normal 7-18 [facility] Comment on above: Result Comment: HEMO LYSED Performed By: #### L 500.2500 ####[facility] [address] [place], [address] BUN/CRE Normal 10-20 [facility] Comment on above: Result Comment: HEMO LYSED Performed By: #### L 500.2500 ####[facility] [address] [place], [address] CA,Total Normal 8.5-10.1 [facility] Comment on above: Result Comment: HEMO LYSED Performed By: #### L 500.2500 ####[facility] [address] [place], [address] CL Normal 98-107 [facility] Comment on above: Result Comment: HEMO LYSED Performed By: #### L 500.2500 ####[facility] [address] [place], [address] CO2 Normal 21.0-32.0 [facility] Comment on above: Result Comment: HEMO LYSED Performed By: #### L 500.2500 ####[facility] [address] [place], [address] CREAT,SERUM Normal 0.55-1.02 [facility] Comment on above: Result Comment: HEMO LYSED Performed By: #### L 500.2500 ####[facility] [address] [place], [address] EST GFR Normal >60 [facility] Comment on above: Result Comment: HEMO LYSED Performed By: #### L 500.2500 ####[facility] [address] [place], [address] EST GFR - AA Normal >60 [facility] Comment on above: Result Comment: HEMO LYSED Performed By: #### L 500.2500 ####[facility] [address] [place], [place], [address] GAP Normal 5-15 [facility] Comment on above: Result Comment: HEMO LYSED Performed By: #### L 500.2500 ####[facility] [address] [place], [address] GLU Normal 74-106 [facility] Comment on above: Result Comment: HEMO LYSED Performed By: #### L 500.2500 ####[facility] [address] [place], [address] Potassium Normal 3.5-5.1 [facility] Comment on above: Result Comment: HEMO LYSED Performed By: #### L 500.2500 ####[facility] [address] [place], [address] Basic Metabolic Profile (BMP) Normal 136-145 [facility] Comment on above: Result Comment: HEMO LYSED Performed By: #### L 500.2500 ####[facility] [address] [place], [address] CBC W/Diff, Automatedon 11-0 Anisocytosis Ql (Bld) 2+ Normal [facility] Comment on above: Performed By: #### L 100.0100 ####[facility] [address] [place], [address] MICROCYTIC 1+ Normal [facility] Comment on above: Performed By: #### L 100.0100 ####[facility] [address] [place], [address] PLT EST SLT INC Normal ADEQ [facility] Comment on above: Performed By: #### L 100.0100 ####[facility] [address] [place], [address] SMEAR COMMENT SCANNED Normal [facility] Comment on above: Performed By: #### L 100.0100 ####[facility] [address] [place], [address] TARGET CELLS RARE Normal [facility] Comment on above: Performed By: #### L 100.0100 ####[facility] [address] [place], [address] CPK Total, Creatine Kinaseon 01-07-2024 CPK TOTAL 184 U/L Normal 26-192 [facility] Comment on above: Performed By: #### L 501.5200, L500.2500, L501.3620 ####[facility] [address] [place], [address] Chest 1 View (Portable)on Chest 1 View (Portable) Normal [facility] Emergency Department Summary on 01-07-2024 Emergency Department Summary Normal [facility] Magnesiumon 01-07-2024 Magnesium [Mass/Vol] 1.7 mg/dL Normal 1.6-2.6 [facility] Comment on above: Performed By: #### L 501.5200, L500.2500, L501.3620 ####[facility] [address] [place], [address] CBC W/Diff, Automatedon 12-06 Absolute Lymph 1.99 X10 3/uL Normal 0.83-4.51 [facility] Comment on above: Performed By: #### L 506.1000, L501.9520, L100.0100, L506.0400, L500.4050 ####[facility] [address] [place], [address] Absolute Neut 3.9 X10 3/uL Normal 2.0-7.7 [facility] Comment on above: Performed By: #### L 506.1000, L501.9520, L100.0100, L506.0400, L500.4050 ####[facility] [address] [place], [address] Basophils/100 WBC (Bld) 0.7 % Normal 0-1 [facility] Comment on above: Performed By: #### L 506.1000, L501.9520, L100.0100, L506.0400, L500.4050 ####[facility] [address] [place], [address] Eosinophils/100 WBC (Bld) 10.7 % High 0-5 [facility] Comment on above: Performed By: #### L 506.1000, L501.9520, L100.0100, L506.0400, L500.4050 ####[facility] [address] [place], [address] Erythrocyte distribution width (RBC) [Ratio] 19.8 % High 11.6-14.6 [facility] Comment on above: Performed By: #### L 506.1000, L501.9520, L100.0100, L506.0400, L500.4050 ####[facility] [address] [place], [address] Hematocrit (Bld) [Volume fraction] 37.8 % Normal 37-47 [facility] Comment on above: Performed By: #### L 506.1000, L501.9520, L100.0100, L506.0400, L500.4050 ####[facility] [address] [place], [address] Hemoglobin (Bld) [Mass/Vol] 11.1 g/dL Low 12.0-15.0 [facility] Comment on above: Performed By: #### L 506.1000, L501.9520, L100.0100, L506.0400, L500.4050 ####[facility] [address] [place], [address] IG% 0.300 Normal 0.0-0.9 [facility] Comment on above: Result Comment: IG% - Immature Granulocytes (promyelocytes, myelocytes andmetamyelocytes) > 1% indicates that a LEFT SHIFT is Present. Performed By: #### L 506.1000, L501.9520, L100.0100, L506.0400, L500.4050 ####[facility] [address] [place], [address] Lymphocytes/100 WBC (Bld) 27.3 % Normal 19-41 [facility] Comment on above: Performed By: #### L 506.1000, L501.9520, L100.0100, L506.0400, L500.4050 ####[facility] [address] [place], [address] MCH (RBC) [Entitic mass] 21.8 pg Low 27.0-32.0 [facility] Comment on above: Performed By: #### L 506.1000, L501.9520, L100.0100, L506.0400, L500.4050 ####[facility] [address] [place], [address] MCHC (RBC) [Mass/Vol] 29.4 g/dL Low 32-36 [facility] Comment on above: Performed By: #### L 506.1000, L501.9520, L100.0100, L506.0400, L500.4050 ####[facility] [address] [place], [address] MCV (RBC) [Entitic vol] 74.1 fL Low 81-99 [facility] Comment on above: Performed By: #### L 506.1000, L501.9520, L100.0100, L506.0400, L500.4050 ####[facility] [address] [place], [address] Monocytes/100 WBC (Bld) 8.0 % Normal 0-10 [facility] Comment on above: Performed By: #### L 506.1000, L501.9520, L100.0100, L506.0400, L500.4050 ####[facility] [address] [place], [address] Neutrophils/100 WBC (Bld) 53.0 % Normal 47-70 [facility] Comment on above: Performed By: #### L 506.1000, L501.9520, L100.0100, L506.0400, L500.4050 ####[facility] [address] [place], [address] Nucleated RBC (Bld) [#/Vol] 0 10*3/uL Normal 0-5 [facility] Comment on above: Performed By: #### L 506.1000, L501.9520, L100.0100, L506.0400, L500.4050 ####[facility] [address] [place], [address] Platelet mean volume (Bld) [Entitic vol] 10.2 fL Normal 6.2-12.0 [facility] Comment on above: Performed By: #### L 506.1000, L501.9520, L100.0100, L506.0400, L500.4050 ####[facility] [address] [place], [address] Platelets (Bld) [#/Vol] 411 10*3/uL Normal 150-450 [facility] Comment on above: Performed By: #### L 506.1000, L501.9520, L100.0100, L506.0400, L500.4050 ####[facility] [address] [place], [address] RBC (Bld) [#/Vol] 5.10 10*6/uL Normal 4.2-5.4 [facility] Comment on above: Performed By: #### L 506.1000, L501.9520, L100.0100, L506.0400, L500.4050 ####[facility] [address] [place], [address] RDW SD 51.9 fl High 35.1-43.9 [facility] Comment on above: Performed By: #### L 506.1000, L501.9520, L100.0100, L506.0400, L500.4050 ####[facility] [address] [place], [address] WBC (Bld) [#/Vol] 7.3 10*3/uL Normal 4.4-11.0 [facility] Comment on above: Performed By: #### L 506.1000, L501.9520, L100.0100, L506.0400, L500.4050 ####[facility] [address] [place], [address] Chest PA and Lateralon 12-23 Chest PA and Lateral Normal [facility] Comprehensive Metabolic Prof ilon 12-24-2023 Albumin [Mass/Vol] 3.4 g/dL Normal 3.2-5.0 [facility] Comment on above: Performed By: #### L 506.1000, L501.9520, L100.0100, L506.0400, L500.4050 ####[facility] [address] [place], [address] Albumin/Globulin [Mass ratio] 0.9 {ratio} Normal 0.9-2.4 [facility] Comment on above: Performed By: #### L 506.1000, L501.9520, L100.0100, L506.0400, L500.4050 ####[facility] [address] [place], [address] ALK P 96 U/L Normal 45-117 [facility] Comment on above: Performed By: #### L 506.1000, L501.9520, L100.0100, L506.0400, L500.4050 ####[facility] [address] [place], [address] ALT [Catalytic activity/Vol] 13 U/L Normal 13-56 [facility] Comment on above: Performed By: #### L 506.1000, L501.9520, L100.0100, L506.0400, L500.4050 ####[facility] [address] [place], [address] AST [Catalytic activity/Vol] 13 U/L Low 15-37 [facility] Comment on above: Performed By: #### L 506.1000, L501.9520, L100.0100, L506.0400, L500.4050 ####[facility] [address] [place], [address] Bilirubin [Mass/Vol] 0.40 mg/dL Normal 0.20-1.00 [facility] Comment on above: Result Comment: For patients on eltrombopag therapy, use of Dimension [place] TBIL is not recommended. Performed By: #### L 506.1000, L501.9520, L100.0100, L506.0400, L500.4050 ####[facility] [address] [place], [address] BUN/CRE 17.7 RATIO Normal 10-20 [facility] Comment on above: Performed By: #### L 506.1000, L501.9520, L100.0100, L506.0400, L500.4050 ####[facility] [address] [place], [address] CA,Total 8.8 mg/dL Normal 8.5-10.1 [facility] Comment on above: Performed By: #### L 506.1000, L501.9520, L100.0100, L506.0400, L500.4050 ####[facility] [address] [place], [address] Chloride [Moles/Vol] 107 mmol/L Normal 98-107 [facility] Comment on above: Performed By: #### L 506.1000, L501.9520, L100.0100, L506.0400, L500.4050 ####[facility] [address] [place], [address] CO2 [Moles/Vol] 29.0 mmol/L Normal 21.0-32.0 [facility] Comment on above: Performed By: #### L 506.1000, L501.9520, L100.0100, L506.0400, L500.4050 ####[facility] [address] [place], [address] Creatinine [Mass/Vol] 1.30 mg/dL High 0.55-1.02 [facility] Comment on above: Result Comment: The validity of the calculated GFR GFRAA in patients over70 years has not been determined. Clinical correlation isessential. Performed By: #### L 506.1000, L501.9520, L100.0100, L506.0400, L500.4050 ####[facility] [address] [place], [address] EST GFR - AA 54 mL/min Low >60 [facility] Comment on above: Result Comment: Afri can Scottish GFR Calc Performed By: #### L 506.1000, L501.9520, L100.0100, L506.0400, L500.4050 ####[facility] [address] [place], [address] GAP 5 Normal 5-15 [facility] Comment on above: Performed By: #### L 506.1000, L501.9520, L100.0100, L506.0400, L500.4050 ####[facility] [address] [place], [address] GFR/1.73 sq M.predicted among non-blacks MDRD (S/P/Bld) [Vol rate/Area] 45 mL/min/{1.73_m2} Low >60 [facility] Comment on above: Result Comment: Non- GFR Calc Performed By: #### L 506.1000, L501.9520, L100.0100, L506.0400, L500.4050 ####[facility] [address] [place], [address] Globulin (S) [Mass/Vol] 3.6 g/dL Normal 2.2-4.2 [facility] Comment on above: Performed By: #### L 506.1000, L501.9520, L100.0100, L506.0400, L500.4050 ####[facility] [address] [place], [address] Glucose [Mass/Vol] 102 mg/dL Normal 74-106 [facility] Comment on above: Result Comment: Fast ing Glucose result from 100 to 125 mg/dLsuggests IMPAIRED HOMEOSTASIS per A.D.A. criteria. Performed By: #### L 506.1000, L501.9520, L100.0100, L506.0400, L500.4050 ####[facility] [address] [place], [address] Potassium [Moles/Vol] 3.7 mmol/L Normal 3.5-5.1 [facility] Comment on above: Performed By: #### L 506.1000, L501.9520, L100.0100, L506.0400, L500.4050 ####[facility] [address] [place], [address] Sodium [Moles/Vol] 141 mmol/L Normal 136-145 [facility] Comment on above: Performed By: #### L 506.1000, L501.9520, L100.0100, L506.0400, L500.4050 ####[facility] [address] [place], [address] T PROT 7.0 g/dL Normal 6.4-8.2 [facility] Comment on above: Performed By: #### L 506.1000, L501.9520, L100.0100, L506.0400, L500.4050 ####[facility] [address] [place], [address] Urea nitrogen [Mass/Vol] 23 mg/dL High 7-18 [facility] Comment on above: Performed By: #### L 506.1000, L501.9520, L100.0100, L506.0400, L500.4050 ####[facility] [address] [place], [address] Endocrinology Visit Reporton 12-24-2023 Endocrinology Visit Report Normal [facility] T4 Free Directon 12-24-2023 T4 FREE DIRECT 0.93 ng/dL Normal 0.76-1.46 [facility] Comment on above: Performed By: #### L 506.1000, L501.9520, L100.0100, L506.0400, L500.4050 ####[facility] [address] [place], [address] Thyroid Stim Hormone (TSH)on 12-24-2023 TSH 3.010 uIU/mL Normal 0.358-3.740 [facility] Comment on above: Performed By: #### L 506.1000, L501.9520, L100.0100, L506.0400, L500.4050 ####[facility] [address] [place], [address] Vitamin D,25 Hydroxyon 12-23 Vitamin D 25-OH 29.9 ng/mL Normal [facility] Comment on above: Result Comment: Carol min D 25(OH) Status Range Deficiency <20 ng/mL (50nmol/L) Insufficiency 20 - 30 ng/mL (50 - 75 nmol/L) Sufficiency 30 - 100 ng/mL (75 - 250 nmol/L) Toxicity >100 ng/mL (>250 nmol/L) Performed By: #### L 506.1000, L501.9520, L100.0100, L506.0400, L500.4050 ####[facility] [address] [place], [address] 25-HYDROXY D2+D3on 25-hydroxyvitamin D3 [Mass/Vol] 35.3 ng/mL Normal 30.0-100.0 [facility] Comment on above: Order Comment: Speci men Type: BLOOD SPECIMEN Ordering Facility: [facility] Address: [facility] [place] [address] Result Comment: Defi cient: <20.1 ng/mL Insufficient: 20.1 - 29.9 ng/mL Sufficient: 30.0 - 100.0 ng/mL Toxic: >150.0 ng/mL Reference: Obi ENAMORADO, N Engl J Med ([id number] This test was developed and its performance characteristics determined by the [facility] the [facility]. The U.S. Food and Drug Administration has not approved or cleared this test, however, FDA clearance or approval is not currently required for clinical use. Performed By: #### 1 558-6 #### [facility] CLIA [id number] [address] [place] [address] [place] Vitamin D2 [Mass/Vol] <5.0 Normal [facility] Comment on above: Order Comment: Speci men Type: BLOOD SPECIMEN Ordering Facility: [facility] Address: [address] [place] [address] Performed By: #### 1 558-6 #### [facility] CLIA [id number] [address] [place] [address] [place] Vitamin D3 [Mass/Vol] 35.3 ng/mL Normal [facility] Comment on above: Order Comment: Speci men Type: BLOOD SPECIMEN Ordering Facility: [facility] Address: [address] [place] [address] Performed By: #### 1 558-6 #### [facility] CLIA [id number] [address] [place] [address] [place] CBC panel Auto (Bld)on 11-30 Erythrocyte distribution width (RBC) [Ratio] 19.7 % High 11.5-15.0 [facility] Comment on above: Order Comment: Speci men Type: BLOOD SPECIMEN Ordering Facility: [facility] Address: [address] [place] [address] Performed By: #### 1 558-6 #### [facility] CLIA [id number] [address] [place] [address] [place] Hematocrit (Bld) [Volume fraction] 36.1 % Normal 36.0-46.0 [facility] Comment on above: Order Comment: Speci men Type: BLOOD SPECIMEN Ordering Facility: [facility] Address: [address] [place] [address] Performed By: #### 1 558-6 #### [facility] CLIA [id number] [address] [place] [address] [place] Hemoglobin (Bld) [Mass/Vol] 11.2 g/dL Low 11.5-15.5 [facility] Comment on above: Order Comment: Speci men Type: BLOOD SPECIMEN Ordering Facility: [facility] Address: [address] [place] [address] Performed By: #### 1 558-6 #### [facility] CLIA [id number] [address] [place] [address] [place] MCH (RBC) [Entitic mass] 22.6 pg Low 26.0-34.0 [facility] Comment on above: Order Comment: Speci men Type: BLOOD SPECIMEN Ordering Facility: [facility] Address: [address] [place] [address] Performed By: #### 1 558-6 #### [facility] CLIA [id number] [address] [place] [address] [place] MCHC (RBC) [Mass/Vol] 31.0 g/dL Normal 30.5-36.0 [facility] Comment on above: Order Comment: Speci men Type: BLOOD SPECIMEN Ordering Facility: [facility] Address: [address] [place] [address] Performed By: #### 1 558-6 #### [facility] CLIA [id number] [address] [place] [address] [place] MCV (RBC) [Entitic vol] 72.8 fL Low 80.0-100.0 [facility] Comment on above: Order Comment: Speci men Type: BLOOD SPECIMEN Ordering Facility: [facility] Address: [address] [place] [address] Performed By: #### 1 558-6 #### [facility] CLIA [id number] [address] [place] [address] [place] Nucleated RBC (Bld) [#/Vol] 10*3/uL Normal <0.01 [facility] Comment on above: Order Comment: Speci men Type: BLOOD SPECIMEN Ordering Facility: [facility] Address: [address] [place] [address] Performed By: #### 1 558-6 #### [facility] CLIA [id number] [address] [place] [address] [place] Platelet mean volume (Bld) [Entitic vol] 9.9 fL Normal 9.0-12.7 [facility] Comment on above: Order Comment: Speci men Type: BLOOD SPECIMEN Ordering Facility: [facility] Address: [address] [place] [address] Performed By: #### 1 558-6 #### [facility] CLIA [id number] [address] [place] [address] [place] Platelets (Bld) [#/Vol] 396 10*3/uL Normal 150-400 [facility] Comment on above: Order Comment: Speci men Type: BLOOD SPECIMEN Ordering Facility: [facility] Address: [address] [place] [address] Performed By: #### 1 558-6 #### [facility] CLIA [id number] [address] [place] [address] [place] RBC (Bld) [#/Vol] 4.96 10*6/uL Normal 3.90-5.20 [facility] Comment on above: Order Comment: Speci men Type: BLOOD SPECIMEN Ordering Facility: [facility] Address: [address] [place] [address] Performed By: #### 1 558-6 #### [facility] CLIA [id number] [address] [place] [address] [place] WBC (Bld) [#/Vol] 7.17 10*3/uL Normal 3.70-11.00 [facility] Comment on above: Order Comment: Speci men Type: BLOOD SPECIMEN Ordering Facility: [facility] Address: [address] [place] [address] Performed By: #### 1 558-6 #### [facility] CLIA [id number] [address] [place] [address] [place] PTH-Intact SerPl-mCncon 11-07 Parathyrin.intact [Mass/Vol] pg/mL Low 15-65 [facility] Comment on above: Order Comment: Speci men Type: BLOOD SPECIMENOrdering Facility: [facility] [place] Address: [address] [place] [address] Result Comment: Resu lt rechecked. Performed By: #### 2 731-8 ####[facility] [id number] [place] [address] [place] Prot/Creat Uron 12-01-2023 Protein/Creatinine (U) [Mass ratio] 0.08 mg/mg Normal <0.15 [facility] Comment on above: Order Comment: Phi men Type: BLOOD SPECIMEN Ordering Facility: [facility] Address: [address] [place] [address] Result Comment: Adul t Proteinuria Categories: <0.15 mg/mg is considered normal to mildly increased 0.15 - 0.50 mg/mg is considered moderately increased >0.50 mg/mg is considered severely increased KDIGO. (2013). KDIGO 2012 Clinical Practice Guideline for the Evaluation and Management of Chronic Kidney Disease. Official Journal of the International Society of Nephrology, 3(1), 1-150. Performed By: #### 1 558-6 #### [facility] CLIA [id number] [address] [place] [address] [place] Protein/Creatinine (U) [Mass ratio]on 12-01-2023 Creatinine (U) [Mass/Vol] 164.9 mg/dL Normal 20.0-300.0 [facility] Comment on above: Order Comment: Speci men Type: BLOOD SPECIMEN Ordering Facility: [facility] Address: [address] [place] [address] Performed By: #### 1 558-6 #### [facility] CLIA [id number] [address] [place] [address] [place] Protein (U) [Mass/Vol] 13 mg/dL Normal 0-20 [facility] Comment on above: Order Comment: Speci men Type: BLOOD SPECIMEN Ordering Facility: [facility] Address: [address] [place] [address] Performed By: #### 1 558-6 #### [facility] CLIA [id number] [address] [place] [address] [place] Renal function 2000 panelon 12-01-2023 Albumin [Mass/Vol] 3.9 g/dL Normal 3.9-4.9 [facility] Comment on above: Order Comment: Speci men Type: BLOOD SPECIMEN Ordering Facility: [facility] Address: [address] [place] [address] Performed By: #### 1 558-6 #### [facility] CLIA [id number] [address] [place] [address] [place] Anion gap [Moles/Vol] 12 mmol/L Normal 8-15 [facility] Comment on above: Order Comment: Speci men Type: BLOOD SPECIMEN Ordering Facility: [facility] Address: [address] [place] [address] Performed By: #### 1 558-6 #### [facility] CLIA [id number] [address] [place] [address] [place] Calcium [Mass/Vol] 9.0 mg/dL Normal 8.5-10.2 [facility] Comment on above: Order Comment: Speci men Type: BLOOD SPECIMEN Ordering Facility: [facility] Address: [address] [place] [address] Performed By: #### 1 558-6 #### [facility] CLIA [id number] [address] [place] [address] [place] Chloride [Moles/Vol] 102 mmol/L Normal 98-107 [facility] Comment on above: Order Comment: Speci men Type: BLOOD SPECIMEN Ordering Facility: [facility] Address: [address] [place] [address] Performed By: #### 1 558-6 #### [facility] CLIA [id number] [address] [place] [address] [place] CO2 [Moles/Vol] 26 mmol/L Normal 22-30 [facility] Comment on above: Order Comment: Speci men Type: BLOOD SPECIMEN Ordering Facility: [facility] Address: [address] [place] [address] Performed By: #### 1 558-6 #### [facility] CLIA [id number] [address] [place] [address] [place] Creatinine [Mass/Vol] 1.27 mg/dL High 0.58-0.96 [facility] Comment on above: Order Comment: Speci men Type: BLOOD SPECIMEN Ordering Facility: [facility] Address: [address] [place] [address] Performed By: #### 1 558-6 #### [facility] CLIA [id number] [address] [place] [address] [place] Creatinine and Glomerular filtration rate.predicted panel (S/P/Bld) 49 mL/min/1.73m??? Low >=60 [facility] Comment on above: Order Comment: Speci men Type: BLOOD SPECIMEN Ordering Facility: [facility] Address: [address] [place] [address] Result Comment: Daisha mated Glomerular Filtration Rate (eGFR) is calculated using the 2020 CKD-EPI creatinine equation. This equation utilizes serum creatinine, sex, and age as parameters. The creatinine assay has traceable calibration to isotope dilution-mass spectrometry. Refer to KDIGO guidelines for clinical interpretation. In patients with unstable renal function, e.g. those with acute kidney injury, the eGFR may not accurately reflect actual GFR. Performed By: #### 1 558-6 #### [facility] CLIA [id number] [address] [place] [address] [place] Glucose [Mass/Vol] 101 mg/dL High 74-99 [facility] Comment on above: Order Comment: Phi spaulding Type: BLOOD SPECIMEN Ordering Facility: [facility] Address: [address] [place] [address] Result Comment: The [place] Diabetes Association (ADA) provides guidance for cutoff values for fasting glucose and random glucose. The ADA defines fasting as no caloric intake for at least 8 hours. Fasting plasma glucose results between 100 to 125 [...] Standards of Medical Care in Diabetes 2016, [place] Diabetes Association. Diabetes Care. 2016.39(Suppl 1). Performed By: #### 1 558-6 #### [facility] CLIA [id number] [address] [place] [address] [place] Phosphate [Mass/Vol] 4.7 mg/dL Normal 2.7-4.8 [facility] Comment on above: Order Comment: Yulieti men Type: BLOOD SPECIMEN Ordering Facility: [facility] Address: [address] [place] [address] Performed By: #### 1 558-6 #### [facility] CLIA [id number] [address] [place] [address] [place] Potassium [Moles/Vol] 3.8 mmol/L Normal 3.7-5.1 [facility] Comment on above: Order Comment: Phi spaulding Type: BLOOD SPECIMEN Ordering Facility: [facility] Address: [address] [place] [address] Performed By: #### 1 558-6 #### [facility] CLIA [id number] [address] [place] [address] [place] Sodium [Moles/Vol] 140 mmol/L Normal 136-144 [facility] Comment on above: Order Comment: Speci men Type: BLOOD SPECIMEN Ordering Facility: [facility] Address: [address] [place] [address] Performed By: #### 1 558-6 #### [facility] CLIA [id number] [address] [place] [address] [place] Urea nitrogen [Mass/Vol] 13 mg/dL Normal 7-21 [facility] Comment on above: Order Comment: Speci men Type: BLOOD SPECIMEN Ordering Facility: [facility] Address: [address] [place] [address] Performed By: #### 1 558-6 #### [facility] CLIA [id number] [address] [place] [address] [place] Urgent Care Visit Reporton 0 11-09-2023 Urgent Care Visit Report Normal [facility] Venous Duplex US - Farhad Extre mon 11-02-2023 Venous Duplex US - Farhad Extrem Normal [facility] Emergency Department Summary on 11-01-2023 Emergency Department Summary Normal [facility] Basic Metabolic Profile (BMP )on 10-15-2023 BUN/CRE 10.7 RATIO Normal 10-20 [facility] Comment on above: Performed By: #### L 100.0100, L500.2500 ####[facility] [address] [place], [address] CA,Total 7.9 mg/dL Low 8.5-10.1 [facility] Comment on above: Performed By: #### L 100.0100, L500.2500 ####[facility] [address] [place], [address] Chloride [Moles/Vol] 103 mmol/L Normal 98-107 [facility] Comment on above: Performed By: #### L 100.0100, L500.2500 ####[facility] [address] [place], [address] CO2 [Moles/Vol] 30.0 mmol/L Normal 21.0-32.0 [facility] Comment on above: Performed By: #### L 100.0100, L500.2500 ####[facility] [address] [place], [address] Creatinine [Mass/Vol] 1.68 mg/dL High 0.55-1.02 [facility] Comment on above: Result Comment: The validity of the calculated GFR GFRAA in patients over70 years has not been determined. Clinical correlation isessential. Performed By: #### L 100.0100, L500.2500 ####[facility] [address] [place], [address] ECRCL 56.83 ml/min Normal [facility] Comment on above: Performed By: #### L 100.0100, L500.2500 ####[facility] [address] [place], [address] EST GFR - AA 40 mL/min Low >60 [facility] Comment on above: Result Comment: Afri can Scottish GFR Calc Performed By: #### L 100.0100, L500.2500 ####[facility] [address] [place], [address] GAP 8 Normal 5-15 [facility] Comment on above: Performed By: #### L 100.0100, L500.2500 ####[facility] [address] [place], [address] GFR/1.73 sq M.predicted among non-blacks MDRD (S/P/Bld) [Vol rate/Area] 33 mL/min/{1.73_m2} Low >60 [facility] Comment on above: Result Comment: Non- GFR Calc Performed By: #### L 100.0100, L500.2500 ####[facility] [address] [place], [address] Glucose [Mass/Vol] 87 mg/dL Normal 74-106 [facility] Comment on above: Performed By: #### L 100.0100, L500.2500 ####[facility] [address] [place], [address] Potassium [Moles/Vol] 3.4 mmol/L Low 3.5-5.1 [facility] Comment on above: Performed By: #### L 100.0100, L500.2500 ####[facility] [address] [place], [address] Sodium [Moles/Vol] 141 mmol/L Normal 136-145 [facility] Comment on above: Performed By: #### L 100.0100, L500.2500 ####[facility] [address] [place], [address] Urea nitrogen [Mass/Vol] 18 mg/dL Normal 7-18 [facility] Comment on above: Performed By: #### L 100.0100, L500.2500 ####[facility] [address] [place], [address] CBC W/Diff, Automatedon 08-0 9-2023 Absolute Lymph 2.27 X10 3/uL Normal 0.83-4.51 [facility] Comment on above: Performed By: #### L 100.0100, L500.2500 ####[facility] [address] [place], [address] Absolute Neut 4.9 X10 3/uL Normal 2.0-7.7 [facility] Comment on above: Performed By: #### L 100.0100, L500.2500 ####[facility] [address] [place], [address] Basophils/100 WBC (Bld) 0.8 % Normal 0-1 [facility] Comment on above: Performed By: #### L 100.0100, L500.2500 ####[facility] [address] [place], [address] Eosinophils/100 WBC (Bld) 7.4 % High 0-5 [facility] Comment on above: Performed By: #### L 100.0100, L500.2500 ####[facility] [address] [place], [address] Erythrocyte distribution width (RBC) [Ratio] 19.4 % High 11.6-14.6 [facility] Comment on above: Performed By: #### L 100.0100, L500.2500 ####[facility] [address] [place], [address] Hematocrit (Bld) [Volume fraction] 36.5 % Low 37-47 [facility] Comment on above: Performed By: #### L 100.0100, L500.2500 ####[facility] [address] [place], [address] Hemoglobin (Bld) [Mass/Vol] 11.2 g/dL Low 12.0-15.0 [facility] Comment on above: Performed By: #### L 100.0100, L500.2500 ####[facility] [address] [place], [address] IG% 0.200 Normal 0.0-0.9 [facility] Comment on above: Result Comment: IG% - Immature Granulocytes (promyelocytes, myelocytes andmetamyelocytes) > 1% indicates that a LEFT SHIFT is Present. Performed By: #### L 100.0100, L500.2500 ####[facility] [address] [place], [address] Lymphocytes/100 WBC (Bld) 26.5 % Normal 19-41 [facility] Comment on above: Performed By: #### L 100.0100, L500.2500 ####[facility] [address] [place], [address] MCH (RBC) [Entitic mass] 22.0 pg Low 27.0-32.0 [facility] Comment on above: Performed By: #### L 100.0100, L500.2500 ####[facility] [address] [place], [address] MCHC (RBC) [Mass/Vol] 30.7 g/dL Low 32-36 [facility] Comment on above: Performed By: #### L 100.0100, L500.2500 ####[facility] [address] [place], [address] MCV (RBC) [Entitic vol] 71.7 fL Low 81-99 [facility] Comment on above: Performed By: #### L 100.0100, L500.2500 ####[facility] [address] [place], [address] Monocytes/100 WBC (Bld) 8.4 % Normal 0-10 [facility] Comment on above: Performed By: #### L 100.0100, L500.2500 ####[facility] [address] [place], [address] Neutrophils/100 WBC (Bld) 56.7 % Normal 47-70 [facility] Comment on above: Performed By: #### L 100.0100, L500.2500 ####[facility] [address] [place], [address] Nucleated RBC (Bld) [#/Vol] 0 10*3/uL Normal 0-5 [facility] Comment on above: Performed By: #### L 100.0100, L500.2500 ####[facility] [address] [place], [address] Platelet mean volume (Bld) [Entitic vol] 9.7 fL Normal 6.2-12.0 [facility] Comment on above: Performed By: #### L 100.0100, L500.2500 ####[facility] [address] [place], [address] Platelets (Bld) [#/Vol] 344 10*3/uL Normal 150-450 [facility] Comment on above: Performed By: #### L 100.0100, L500.2500 ####[facility] [address] [place], [address] RBC (Bld) [#/Vol] 5.09 10*6/uL Normal 4.2-5.4 [facility] Comment on above: Performed By: #### L 100.0100, L500.2500 ####[facility] [address] [place], [address] RDW SD 49.2 fl High 35.1-43.9 [facility] Comment on above: Performed By: #### L 100.0100, L500.2500 ####[facility] [address] [place], [address] WBC (Bld) [#/Vol] 8.6 10*3/uL Normal 4.4-11.0 [facility] Comment on above: Performed By: #### L 100.0100, L500.2500 ####[facility] [address] [place], [address] Emergency Department Summary on 10-15-2023 Emergency Department Summary Normal [facility] MR/BMS.BPon 10-13-2023 MR/BMS.BP Normal [facility] Echo Completeon 10-12-2023 Echo Complete Normal [facility] Internal Medicine Office Vis iton 09-13-2023 Internal Medicine Office Visit Normal [facility] CNOVon 08-27-2023 CNOV Office Visit (UCWSTR ) THUY WHITE ([id number]) 1965 F Date Time Provider Department 08/27/23 4:00 PM SYED KRUGER [facility] During your visit today, we recorded the following information about you: Syed Kruger APRN.CNP 08/27/2023 3:58 PM Signed Nontoxic-appearing female presents urgent care chief complaint shortness of breath. Duration of symptoms a week and a half. Associated symptoms shortness of breath and cough. States was seen in the ER twice for this. Yesterday was placed on azithromycin and prednisone. States shortness of breath is getting worse. With presenting symptoms I recommend patient be seen the ED for further evaluation care. Will be reevaluated at [facility]. Denied transport. Syed Kruger APRN.CNP Allergies As of Date: 08/27/2023 Noted Allergy Reaction CONTRAST DYE 10/22/2007 2 - Rash FERROUS GLUCONATE 06/14/2012 8 - GI Upset Comments: Nausea MORPHINE 05/14/2005 2 - Rash ONDANSETRON 02/22/2018 14 - Other: See Comments OXYCONTIN (OXYCODONE HCL) 01/07/2007 2 - Rash 7 - Swelling Comments: Rash, red and swollen eyes, facial swelling PROPRANOLOL 04/02/2017 9 - Itching Date Reviewed: 07/08/2023 Reviewed by: Gabriela Kunz LPN - Fully Assessed Primary Visit Diagnosis:Procedure not carried out [Z53.9] Prescriptions as of 08/27/2023 - pantoprazole sodium (PROTONIX ORAL) Take by mouth. - VRAYLAR 1.5 mg capsule Take 1 capsule by mouth every afternoon. - BELSOMRA 10 mg tab Take 1 tablet by mouth daily at bedtime. - TRINTELLIX 20 mg tablet take 1 tablet by mouth once daily AT THE SAME TIME EACH DAY for depression - ramelteon (ROZEREM) 8 mg tablet take 1 tablet by mouth at bedtime if needed sleep - cyanocobalamin (VITAMIN B-12) 1,000 mcg tab take 1 tablet by mouth once daily - trimethoprim-polymyxin (POLYTRIM) 10,000 unit- 1 mg/mL ophthalmic solution Use 1 Drop in the left eye three times daily. - levothyroxine (SYNTHROID) 100 mcg tablet take 1 tablet by mouth once daily - atorvastatin (LIPITOR) 20 mg tablet take 1 tablet by mouth once daily - calcitriol (ROCALTROL) 0.5 mcg capsule take 2 capsules by mouth once daily - furosemide (LASIX) 20 mg tablet take 1 tablet by mouth twice a day - potassium chloride ER (K-DUR, KLOR-CON) 20 mEq tablet take 1 tablet by mouth four times a day - magnesium oxide (MAG-OX) 400 mg (241.3 mg magnesium) tablet take 1 tablet by mouth once daily - spironolactone (ALDACTONE) 25 mg tablet take 1/2 tablet by mouth once daily - cholecalciferol, Vitamin D3, (VITAMIN D3) 1,250 mcg (50,000 unit) cap capsule Take 1 capsule by mouth one time a week. - omeprazole (PRILOSEC) 20 mg capsule take 1 capsule by mouth twice a day - hydrOXYzine pamoate (VISTARIL) 25 mg capsule Take 1 capsule by mouth four times daily as needed for anxiety for up to 30 doses. - fluticasone (FLONASE) 50 mcg/actuation nasal spray instill 1 spray into each nostril at bedtime - venlafaxine (EFFEXOR) 75 mg tablet Take 3 tablets by mouth once daily. - calcium carbonate (CALCIUM ANTACID) 500 mg chew Take 1 tablet by mouth twice daily. - ARIPiprazole (ABILIFY) 2 mg tablet Take 10 mg by mouth once daily. - cholecalciferol (VITAMIN D-3) 2,000 unit tablet Take 2,000 Units by mouth once daily. - zolpidem (AMBIEN) 5 mg tablet Take 5 mg by mouth daily at bedtime. - buPROPion XL (WELLBUTRIN XL) 150 mg 24 hr tablet Take 1 tablet by mouth once daily. (Psychiatrist) - buPROPion XL (WELLBUTRIN XL) 300 mg 24 hr tablet Take 1 tablet by mouth once daily. - ALPRAZolam (XANAX) 0.5 mg tablet Take 1 tablet by mouth daily at bedtime. 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 *05/09/2008 02/25/2009 CHRISTIE (generalized anxiety disorder) [F41.1] 01/07/2010 Eating disorder NEC 01/07/2010 04/11/2014 Hirsutism [L68.0] 06/06/2010 04/11/2014 Vitamin B12 deficiency [E53.8] 08/15/2010 Onychia and paronychia of toe [L03.039] 09/04/2010 01/31/2014 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 Normal [facility] Fabrice 07-13-2023 CNPN Telephone (PODIWS) THUY WHITE ([id number]) 1965 F Date Time Provider Department 07/13/23 [facility] During your visit today, we recorded the following information about you: Yahaira Tolliver 07/13/2023 12:51 PM Signed Patient is requesting 07/08/23 CMP lab results to be faxed to the office of Dr. Moses at [phone]. Layla Barrett RN 07/13/2023 3:05 PM Signed CMP faxed to number below as requested. Allergies As of Date: 07/13/2023 Noted Allergy Reaction CONTRAST DYE 10/22/2007 2 - Rash FERROUS GLUCONATE 06/14/2012 8 - GI Upset Comments: Nausea MORPHINE 05/14/2005 2 - Rash ONDANSETRON 02/22/2018 14 - Other: See Comments OXYCONTIN (OXYCODONE HCL) 01/07/2007 2 - Rash 7 - Swelling Comments: Rash, red and swollen eyes, facial swelling PROPRANOLOL 04/02/2017 9 - Itching Date Reviewed: 07/08/2023 Reviewed by: Gabriela Kunz LPN - Fully Assessed Reason for Visit: Results [95] Prescriptions as of 07/13/2023 - pantoprazole sodium (PROTONIX ORAL) Take by mouth. - VRAYLAR 1.5 mg capsule Take 1 capsule by mouth every afternoon. - BELSOMRA 10 mg tab Take 1 tablet by mouth daily at bedtime. - TRINTELLIX 20 mg tablet take 1 tablet by mouth once daily AT THE SAME TIME EACH DAY for depression - ramelteon (ROZEREM) 8 mg tablet take 1 tablet by mouth at bedtime if needed sleep - cyanocobalamin (VITAMIN B-12) 1,000 mcg tab take 1 tablet by mouth once daily - trimethoprim-polymyxin (POLYTRIM) 10,000 unit- 1 mg/mL ophthalmic solution Use 1 Drop in the left eye three times daily. - levothyroxine (SYNTHROID) 100 mcg tablet take 1 tablet by mouth once daily - atorvastatin (LIPITOR) 20 mg tablet take 1 tablet by mouth once daily - calcitriol (ROCALTROL) 0.5 mcg capsule take 2 capsules by mouth once daily - furosemide (LASIX) 20 mg tablet take 1 tablet by mouth twice a day - potassium chloride ER (K-DUR, KLOR-CON) 20 mEq tablet take 1 tablet by mouth four times a day - magnesium oxide (MAG-OX) 400 mg (241.3 mg magnesium) tablet take 1 tablet by mouth once daily - spironolactone (ALDACTONE) 25 mg tablet take 1/2 tablet by mouth once daily - cholecalciferol, Vitamin D3, (VITAMIN D3) 1,250 mcg (50,000 unit) cap capsule Take 1 capsule by mouth one time a week. - omeprazole (PRILOSEC) 20 mg capsule take 1 capsule by mouth twice a day - hydrOXYzine pamoate (VISTARIL) 25 mg capsule Take 1 capsule by mouth four times daily as needed for anxiety for up to 30 doses. - fluticasone (FLONASE) 50 mcg/actuation nasal spray instill 1 spray into each nostril at bedtime - venlafaxine (EFFEXOR) 75 mg tablet Take 3 tablets by mouth once daily. - calcium carbonate (CALCIUM ANTACID) 500 mg chew Take 1 tablet by mouth twice daily. - ARIPiprazole (ABILIFY) 2 mg tablet Take 10 mg by mouth once daily. - cholecalciferol (VITAMIN D-3) 2,000 unit tablet Take 2,000 Units by mouth once daily. - zolpidem (AMBIEN) 5 mg tablet Take 5 mg by mouth daily at bedtime. - buPROPion XL (WELLBUTRIN XL) 150 mg 24 hr tablet Take 1 tablet by mouth once daily. (Psychiatrist) - buPROPion XL (WELLBUTRIN XL) 300 mg 24 hr tablet Take 1 tablet by mouth once daily. - ALPRAZolam (XANAX) 0.5 mg tablet Take 1 tablet by mouth daily at bedtime. 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 Complex Endometrial Hyperplasia without Atypia *05/09/2008 02/25/2009 CHRISTIE (generalized anxiety disorder) [F41.1] 01/07/2010 Eating disorder NEC 01/07/2010 04/11/2014 Hirsutism [L68.0] 06/06/2010 04/11/2014 Vitamin B12 deficiency [E53.8] 08/15/2010 Onychia and paronychia of toe [L03.039] 09/04/2010 01/31/2014 Nonunion of fracture [RTQ0552] 12/10/2010 01/31/2014 Other complications due to other internal ortho*01/21/2011 01/31/2014 Gastric bypass status for obesity [Z98.84] CKD (chronic kidney disease) stage 3, GFR 30-59*01/31/2014 ADHD (attention deficit hyperactivity disorder)*01/31/2014 IFG (impaired fasting glucose) [R73.01] 05/08/2014 10/03/2016 Pancreatic mass [K86.89] 09/19/2014 Hyperlipidemia [E78.5] 09/19/2014 Hypocalcemia [E83.51] 12/19/2014 10/01/2016 Hypokalemia [E87.6] 12/20/2014 Fracture of right clavicle [S42.001A] 11/15/2015 10/01/2016 PTSD (post-traumatic stress disorder) [F43.10] 01/23/2016 Sternoclavicular joint subluxation [S43.203A] 07/16/2016 10/01/2016 Subluxation of right sternoclavicular joint [S4*10/14/2016 11/28/2017 BASIL (obstructive sleep apnea) [G (more content not included)... Normal [facility] Comprehensive metabolic 2000 panelon 07-09-2023 Albumin [Mass/Vol] 4.0 g/dL 3.9 - 4.9 g/dL [facility] ALP [Catalytic activity/Vol] 91 U/L 34 - 123 U/L [facility] ALT [Catalytic activity/Vol] 6 U/L Low 7 - 38 U/L [facility] Anion gap [Moles/Vol] 14 mmol/L 9 - 18 mmol/L [facility] AST [Catalytic activity/Vol] 14 U/L 13 - 35 U/L [facility] Bilirubin [Mass/Vol] 0.3 mg/dL 0.2 - 1 .3 mg/dL [facility] Calcium [Mass/Vol] 7.6 mg/dL Low 8.5 - 10. 2 mg/dL [facility] Chloride [Moles/Vol] 100 mmol/L 97 - 10 5 mmol/L [facility] CO2 [Moles/Vol] 26 mmol/L 22 - 30 mmol/L [facility] Creatinine [Mass/Vol] 1.57 mg/dL High 0.58 - 0.96 mg/dL [facility] GFR/1.73 sq M.predicted among non-blacks MDRD (S/P/Bld) [Vol rate/Area] 38 mL/min/{1.73_m2} Low - PINF [facility] Comment on above: Estimated Glomerular Filtration Rate (eGFR) is calculated using the 2020 CKD-EPI creatinine equation. This equation utilizes serum creatinine, sex, and age as parameters. The creatinine assay has traceable calibration to isotope dilution-mass spectrometry. Refer to KDIGO guidelines for clinical interpretation. In patients with unstable renal function, e.g. those with acute kidney injury, the eGFR may not accurately reflect actual GFR. Glucose [Mass/Vol] 83 mg/dL 74 - 99 mg/dL [facility] Comment on above: The [place] Diabete s Association (ADA) provides guidance for cutoff values for fasting glucose and random glucose. The ADA defines fasting as no caloric intake for at least 8 hours. Fasting plasma glucose results between 100 to 125 [...] Standards of Medical Care in Diabetes 2016, [place] Diabetes Association. Diabetes Care. 2016.39(Suppl 1). Interpretation and review of laboratory results Abnormal [facility] Potassium [Moles/Vol] 3.5 mmol/L Low 3.7 - 5.1 mmol/L [facility] Protein [Mass/Vol] 6.9 g/dL 6.3 - 8.0 g/dL [facility] Sodium [Moles/Vol] 140 mmol/L 136 - 144 mmol/L [facility] Urea nitrogen [Mass/Vol] 23 mg/dL High 7 - 21 mg/dL [facility] CNOVon 07-08-2023 CNOV Office Visit (PODIWS ) THUY WHITE ([id number]) 1965 F Date Time Provider Department 07/08/23 3:30 PM [facility] PODIWS During your visit today, we recorded the following information about you: Gabriela Kunz LPN 07/09/2023 4:35 PM Signed AMB ROOMING INTAKE FLOWSHEET DATA Pain Pain Level: 8 Pain Location: Foot-Right Description: Aching, Burning, Pulsating, Radiating, Sharp, Stabbing Duration Units: Hours Frequency: Intermittent Intervention/Comfort measure: Medication Patient presents with: Right Foot - New, Pain, Swelling SHOLA Kemp Matthew 07/09/2023 4:35 PM Signed Initial Podiatric Office Visit: Chief Complaint: This 58 year old female who presents with chief complaint:fight foot pain and burning HPI Patient presents to clinic with right foot pain and burning Patient states the pain is mostly along the top midfoot (met cun joint) Patient states the pain is constant. She even has pain at rest. Patient has taken tylenol but that does not help. She has xrays that suggest spur. PAIN EVALUATION 07/01/2023 1043 Pain Level: 8 Pain Location: Foot-Right Description: Aching;Burning;Pulsating;Ra diating;Sharp;Stabbing Duration Units: Hours Frequency: Intermittent Intervention/Comfort measure: Medication Hemoglobin A1C (%) Date Value 11/24/2017 5.4 05/16/2014 5.8 10/22/2007 5.2 TEST PERFORMED AT [facility] PCP: No primary care provider on file. 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 Chronic right SI joint pain 07/13/2018 Esophageal reflux 2006 Essential hypertension 11/26/2017 Fracture of right clavicle 11/15/2015 Generalized anxiety disorder 2004 with panic attacks Herpes genitalis Hypoparathyroidism ([facility]) parathyroid implant Left forearm Hypothyroidism 09/30/2018 IFG (impaired fasting glucose) 05/08/2014 Impaired fasting glucose Insomnia 03/16/2013 Iron deficiency anemia Irritable bowel syndrome 1997 diarrhea prone, dairy exacerbates MEN 1 (multiple endocrine neoplasia) (FORMERLY [facility]) Dr Solorzano, [facility] Morbid obesity (FORM[facility]) 2006 s/p sleeve Dr Dale Obstructive sleep apnea fair complaince with CPAP Primary hyperparathyroidism ([facility]) 3 1/2 gland parathyroidectomy Renal insufficiency Sternoclavicular joint subluxation 07/16/2016 Current Outpatient Medications Medication Sig pantoprazole sodium (PROTONIX ORAL) Take by mouth. BELSOMRA 10 mg tab Take 1 tablet by mouth daily at bedtime. TRINTELLIX 20 mg tablet take 1 tablet by mouth once daily AT THE SAME TIME EACH DAY for depression ramelteon (ROZEREM) 8 mg tablet take 1 tablet by mouth at bedtime if needed sleep cyanocobalamin (VITAMIN B-12) 1,000 mcg tab take 1 tablet by mouth once daily trimethoprim-polymyxin (POLYTRIM) 10,000 unit- 1 mg/mL ophthalmic solution Use 1 Drop in the left eye three times daily. levothyroxine (SYNTHROID) 100 mcg tablet take 1 tablet by mouth once daily atorvastatin (LIPITOR) 20 mg tablet take 1 tablet by mouth once daily calcitriol (ROCALTROL) 0.5 mcg capsule take 2 capsules by mouth once daily potassium chloride ER (K-DUR, KLOR-CON) 20 mEq tablet take 1 tablet by mouth four times a day magnesium oxide (MAG-OX) 400 mg (241.3 mg magnesium) tablet take 1 tablet by mouth once daily spironolactone (ALDACTONE) 25 mg tablet take 1/2 tablet by mouth once daily cholecalciferol, Vitamin D3, (VITAMIN D3) 1,250 mcg (50,000 unit) cap capsule Take 1 capsule by mouth one time a week. hydrOXYzine pamoate (VISTARIL) 25 mg capsule Take 1 capsule by mouth four times daily as needed for anxiety for up to 30 doses. fluticasone (FLONASE) 50 mcg/actuation nasal spray instill 1 spray into each nostril at bedtime venlafaxine (EFFEXOR) 75 mg tablet Take 3 tablets by mouth once daily. calcium carbonate (CALCIUM ANTACID) 500 mg chew Take 1 tablet by mouth twice daily. ARIPiprazole (ABILIFY) 2 mg tablet Take 10 mg by mouth once daily. cholecalciferol (VITAMIN D-3) 2,000 unit tablet Take 2,000 Units by mouth once daily. zolpidem (AMBIEN) 5 mg tablet Take 5 mg by mouth daily at bedtime. buPROPion XL (WELLBUTRIN XL) 150 mg 24 hr tablet Take 1 tablet by mouth once daily. (Psychiatrist) buPROPion XL (WELLBUTRIN XL) 300 mg 24 hr tablet Take 1 tablet by mouth once daily. ALPRAZolam (XANAX) 0.5 mg tablet Take 1 tablet by mouth daily at bedtime. VRAYLAR 1.5 mg capsule Take 1 capsule by mouth every afternoon. furosemide (LASIX) 20 mg tablet take 1 tablet by mouth twice a day omeprazole (PRILOSEC) 20 mg capsule take 1 capsule by mouth twice a day No current facility-administered medications for this visit. ALLERGIES Allergen Reactions Contrast Dye Rash Ferrous Gluconate GI Upset Nausea (more content not included)... Normal [facility] Comprehensive metabolic 2000 panelon 07-08-2023 Albumin [Mass/Vol] 4.0 g/dL Normal 3.9-4.9 [facility] Comment on above: Order Comment: Speci men Type: BLOOD SPECIMENOrdering Facility: [facility] Address: [address] [place] [address] Performed By: #### 2 4323-8 ####[facility] LABCLIA [id number] [place] [address] [place] ALP [Catalytic activity/Vol] 91 U/L Normal 34-123 [facility] Comment on above: Order Comment: Speci men Type: BLOOD SPECIMENOrdering Facility: [facility] Address: [address] [place] [address] Performed By: #### 2 4323-8 ####[facility] LABCLIA [id number] [place] [address] [place] ALT [Catalytic activity/Vol] 6 U/L Low 7-38 [facility] Comment on above: Order Comment: Speci men Type: BLOOD SPECIMENOrdering Facility: [facility] Address: [address] [place] [address] Performed By: #### 2 4323-8 ####[facility] LABCLIA [id number] [place] [address] [place] Anion gap [Moles/Vol] 14 mmol/L Normal 9-18 [facility] Comment on above: Order Comment: Speci men Type: BLOOD SPECIMENOrdering Facility: [facility] Address: [address] [place] [address] Performed By: #### 2 4323-8 ####[facility] LABCLIA [id number] [place] [address] [place] AST [Catalytic activity/Vol] 14 U/L Normal 13-35 [facility] Comment on above: Order Comment: Speci men Type: BLOOD SPECIMENOrdering Facility: [facility] Address: [address] [place] [address] Performed By: #### 2 4323-8 ####[facility] LABCLIA [id number] [place] [address] [place] Bilirubin [Mass/Vol] 0.3 mg/dL Normal 0.2-1.3 [facility] Comment on above: Order Comment: Speci men Type: BLOOD SPECIMENOrdering Facility: [facility] Address: [address] [place] [address] Performed By: #### 2 4323-8 ####[facility] LABCLIA [id number] [place] [id number] [place] Calcium [Mass/Vol] 7.6 mg/dL Low 8.5-10.2 [facility] Comment on above: Order Comment: Speci men Type: BLOOD SPECIMENOrdering Facility: [facility] Address: [address] [place] [address] Performed By: #### 2 4323-8 ####[facility] LABCLIA [id number] [place] [address] [place] Chloride [Moles/Vol] 100 mmol/L Normal 97-105 [facility] Comment on above: Order Comment: Speci men Type: BLOOD SPECIMENOrdering Facility: [facility] Address: [address] [place] [address] Performed By: #### 2 4323-8 ####[facility] LABCLIA [id number] [place] [address] [place] CO2 [Moles/Vol] 26 mmol/L Normal 22-30 [facility] Comment on above: Order Comment: Speci men Type: BLOOD SPECIMENOrdering Facility: [facility] Address: [address] [place] [address] Performed By: #### 2 4323-8 ####[facility] LABCLIA [id number] [place] [address] [place] Creatinine [Mass/Vol] 1.57 mg/dL High 0.58-0.96 [facility] Comment on above: Order Comment: Speci men Type: BLOOD SPECIMENOrdering Facility: [facility] Address: [address] [place] [address] Performed By: #### 2 4323-8 ####[facility] LABCLIA [id number] [place] [address] [place] Creatinine and Glomerular filtration rate.predicted panel (S/P/Bld) 38 mL/min/1.73m??? Low >=60 [facility] Comment on above: Order Comment: Speci men Type: BLOOD SPECIMENOrdering Facility: [facility] Address: [address] [place] [address] Result Comment: Daisha mated Glomerular Filtration Rate (eGFR) is calculated using the 2020 CKD-EPI creatinine equation. This equation utilizes serum creatinine, sex, and age as parameters. The creatinine assay has traceable calibration to isotope dilution-mass spectrometry. Refer to KDIGO guidelines for clinical interpretation. In patients with unstable renal function, e.g. those with acute kidney injury, the eGFR may not accurately reflect actual GFR. Performed By: #### 2 4323-8 ####[facility] LABCLIA [id number] [place] [address] [place] Glucose [Mass/Vol] 83 mg/dL Normal 74-99 [facility] Comment on above: Order Comment: Phi spaulding Type: BLOOD SPECIMENOrdering Facility: [facility] Address: [address] [place] [address] Result Comment: The [place] Diabetes Association (ADA) provides guidance for cutoff values for fasting glucose and random glucose. The ADA defines fasting as no caloric intake for at least 8 hours. Fasting plasma glucose results between 100 to 125 [...] Standards of Medical Care in Diabetes 2016, [place] Diabetes Association. Diabetes Care. 2016.39(Suppl 1). Performed By: #### 2 4323-8 ####[facility] LABIA [id number] [place] [id number] [place] Potassium [Moles/Vol] 3.5 mmol/L Low 3.7-5.1 [facility] Comment on above: Order Comment: Phi spaulding Type: BLOOD SPECIMENOrdering Facility: [facility] Address: [address] [place] [address] Performed By: #### 2 4323-8 ####[facility] LABIA [id number] [place] [id number] [place] Protein [Mass/Vol] 6.9 g/dL Normal 6.3-8.0 [facility] Comment on above: Order Comment: Speci men Type: BLOOD SPECIMENOrdering Facility: [facility] Address: [address] [place] [address] Performed By: #### 2 4323-8 ####[facility] LABCLIA [id number] [address] [place] Sodium [Moles/Vol] 140 mmol/L Normal 136-144 [facility] Comment on above: Order Comment: Speci men Type: BLOOD SPECIMENOrdering Facility: [facility] Address: [address] [place] [address] Performed By: #### 2 4323-8 ####[facility] LABCLIA [id number] [address] [place] Urea nitrogen [Mass/Vol] 23 mg/dL High 7-21 [facility] Comment on above: Order Comment: Speci men Type: BLOOD SPECIMENOrdering Facility: [facility] Address: [address] [place] [address] Performed By: #### 2 4323-8 ####[facility] LABCLIA [id number] [address] [place] CNOVon 06-22-2023 CNOV Office Visit (UCWSTR ) THUY WHITE ([id number]) 1965 F Date Time Provider Department 06/22/23 7:45 AM PRISCA CROOKS WSTR During your visit today, we recorded the following information about you: Temperature Pulse Respiration Blood pressure 97.2 degrees 91/minute 18/minute 118/76 Weight 144.3 kg Prisca Crooks PA 06/22/2023 8:37 AM Signed This note was created using Festicketriter. Subjective Thuy White is a 58 year old female. HPI 58-year-old female presents for right foot pain. Patient states she has been having right foot pain for about a month. Pain is on the medial foot near the arch. Pain is worse with ambulation. She denies any injury that she can recall. She has been taking Advil and Tylenol. She is not a diabetic. No numbness or tingling in the foot. She states occasionally she has a burning pain. No calf pain or swelling. No other complaint. PAST MEDICAL HISTORY Diagnosis Date ADD (attention [...] dairy exacerbates MEN 1 (multiple endocrine neoplasia) ([facility] (H[facility]) 2007 s/p sleeve Dr Dale Obstructive sleep apnea fair complaince with CPAP Primary hyperparathyroidism (HCC) 3 1/2 gland parathyroidectomy Renal insufficiency Sternoclavicular joint subluxation 07/16/2016 PAST SURGICAL HISTORY Procedure Laterality Date CHOLECYSTECTOMY Cholecystectomy DILATION AND CURETTAGE DXAND/THER NONOBSTETRIC 1991 For excessive menstruation ESOPHAGOGASTRODUODENOSCOPY TRANSORAL DIAGNOSTIC 2006 GASTRIC BYPASS HX 2007 gastric sleeve MENISCAL REPAIR SYS,[id number] Right MYRINGOTOMY ASPIRAND/EUSTACHIAN TUBE NFLTJ ANES Myringotomy/tubes PARATHYROID AUTOTRANSPLANTATION ADD-ON 07/27/06 left forearm PARATHYROIDECTOMY/EXPLORATI ON PARATHYROIDS 12/08/2005 3 3/4 parathyroid glans removed PAST SURGICAL HISTORY OF Left foot fracture repair SEPTOPLASTY/SUBMUCOUS RESECJ W/WO CARTILAGE GRF Septoplasty SURGERY 1 HO 10/2016 clavicle surgery TOTAL ABDOMINAL HYSTERECT W/WO RMVL TUBE OVARY 01/16/09 [facility] Contrast Dye, Ferrous Gluconate, Morphine, Ondansetron, Oxycontin [Oxycodone Hcl], and Propranolol MEDICATIONS BELSOMRA 10 mg tab Take 1 tablet by mouth daily at bedtime. TRINTELLIX 20 mg tablet take 1 tablet by mouth once daily AT THE SAME TIME EACH DAY for depression ramelteon (ROZEREM) 8 mg tablet take 1 tablet by mouth at bedtime if needed sleep cyanocobalamin (VITAMIN B-12) 1,000 mcg tab take 1 tablet by mouth once daily levothyroxine (SYNTHROID) 100 mcg tablet take 1 tablet by mouth once daily atorvastatin (LIPITOR) 20 mg tablet take 1 tablet by mouth once daily calcitriol (ROCALTROL) 0.5 mcg capsule take 2 capsules by mouth once daily furosemide (LASIX) 20 mg tablet take 1 tablet by mouth twice a day potassium chloride ER (K-DUR, KLOR-CON) 20 mEq tablet take 1 tablet by mouth four times a day magnesium oxide (MAG-OX) 400 mg (241.3 mg magnesium) tablet take 1 tablet by mouth once daily cholecalciferol, Vitamin D3, (VITAMIN D3) 1,250 mcg (50,000 unit) cap capsule Take 1 capsule by mouth one time a week. omeprazole (PRILOSEC) 20 mg capsule take 1 capsule by mouth twice a day hydrOXYzine pamoate (VISTARIL) 25 mg capsule Take 1 capsule by mouth four times daily as needed for anxiety for up to 30 doses. fluticasone (FLONASE) 50 mcg/actuation nasal spray instill 1 spray into each nostril at bedtime calcium carbonate (CALCIUM ANTACID) 500 mg chew Take 1 tablet by mouth twice daily. ARIPiprazole (ABILIFY) 2 mg tablet Take 10 mg by mouth once daily. cholecalciferol (VITAMIN D-3) 2,000 unit tablet Take 2,000 Units by mouth once daily. buPROPion XL (WELLBUTRIN XL) 300 mg 24 hr tablet Take 1 tablet by mouth once daily. ALPRAZolam (XANAX) 0.5 mg tablet Take 1 tablet by mouth daily at bedtime. trimethoprim-polymyxin (POLYTRIM) 10,000 unit- 1 mg/mL ophthalmic solution Use 1 Drop in the left eye three times daily. (Patient not taking: Reported on 06/22/2023) spironolactone (ALDACTONE) 25 mg tablet take 1/2 tablet by mouth once daily (Patient not taking: Reported on 06/22/2023) venlafaxine (EFFEXOR) 75 mg tablet Take 3 tablets by mouth once daily. (Patient not taking: Reported on 06/22/2023) zolpidem (AMBIEN) 5 mg tablet (more content not included)... Normal [facility] XR FOOT 3V AP/LAT/OBL RTon 0 06-22-2023 XR FOOT 3V AP/LAT/OBL RT * * *Final Report* * * DATE OF EXAM: Jun 22 2023 8:16AM WOX [id number] - XR FOOT 3V AP/LAT/OBL RT / PROCEDURE REASON: Foot pain, right * * * * Physician Interpretation * * * * TITLE: XR FOOT 3V AP/LAT/OBL RT CLINICAL INDICATION: Foot pain TECHNIQUE: 3 view radiographic study of the right foot COMPARISON: Radiograph dated June 21, 2020 FINDINGS: There is a stable vertical oblique lucency in the distal fifth metatarsal shaft dating back to 2020 favoring a nutrient channel in the absence of history of point tenderness in this region. Otherwise, no acute fracture or dislocation identified. Dorsal and plantar calcaneal enthesophytes. Mild talonavicular dorsal hypertrophic spurring. IMPRESSION: There is a stable vertical oblique lucency in the distal fifth metatarsal shaft dating back to 2020 favoring a nutrient channel in the absence of history of point tenderness in this region. Correlation with physical examination is requested. Grid Trimmer: WENDY Transcribe Date/Time: Jun 22 2023 8:22A Dictated by : CHASE JOHNSTON MD This examination was interpreted and the report reviewed and electronically signed by: CHASE JOHNSTON MD on Jun 22 2023 8:26AM EST [id number] Normal [facility] XR Foot - right AP and Later al and obliqueon 06-22-2023 IMPRESSION: There is a stable vertical oblique lucency in the distal fifth metatarsal shaft dating back to 2020 favoring a nutrient channel in the absence of history of point tenderness in this region. Correlation with physical examination is requested. Grid Trimmer: WENDY Transcribe Date/Time: Jun 22 2023 8:22A Dictated by : CHAES JOHNSTON MD This examination was interpreted and the report reviewed and electronically signed by: CHASE JOHNSTON MD on Jun 22 2023 8:26AM [facility] DIVISION OF RADIOLOGY * * *Final Report* * * DATE OF EXAM: Jun 22 2023 8:16AM WOX [id number] - XR FOOT 3V AP/LAT/OBL RT / PROCEDURE REASON: Foot pain, right * * * * Physician Interpretation * * * * TITLE: XR FOOT 3V AP/LAT/OBL RT CLINICAL INDICATION: Foot pain TECHNIQUE: 3 view radiographic study of the right foot COMPARISON: Radiograph dated June 21, 2020 FINDINGS: There is a stable vertical oblique lucency in the distal fifth metatarsal shaft dating back to 2020 favoring a nutrient channel in the absence of history of point tenderness in this region. Otherwise, no acute fracture or dislocation identified. Dorsal and plantar calcaneal enthesophytes. Mild talonavicular dorsal hypertrophic spurring. DIVISION OF RADIOLOGY [facility] * * *Final Report* * * DATE OF EXAM: Jun 22 2023 8:16AM WOX [id number] - XR FOOT 3V AP/LAT/OBL RT / PROCEDURE REASON: Foot pain, right * * * * Physician Interpretation * * * * TITLE: XR FOOT 3V AP/LAT/OBL RT CLINICAL INDICATION: Foot pain TECHNIQUE: 3 view radiographic study of the right foot COMPARISON: Radiograph dated June 21, 2020 FINDINGS: There is a stable vertical oblique lucency in the distal fifth metatarsal shaft dating back to 2020 favoring a nutrient channel in the absence of history of point tenderness in this region. Otherwise, no acute fracture or dislocation identified. Dorsal and plantar calcaneal enthesophytes. Mild talonavicular dorsal hypertrophic spurring. IMPRESSION IMPRESSION: There is a stable vertical oblique lucency in the distal fifth metatarsal shaft dating back to 2020 favoring a nutrient channel in the absence of history of point tenderness in this region. Correlation with physical examination is requested. Grid Trimmer: WENDY Transcribe Date/Time: Jun 22 2023 8:22A Dictated by : CHASE JOHNSTON MD This examination was interpreted and the report reviewed and electronically signed by: CHASE JOHNSTON MD on Jun 22 2023 8:26AM EST [facility] Radiology Study observation (narrative) [facility] XR Foot - right AP and Later al and obliqueOrdered By: Ccf Provider on 06-22-2023 [facility] CNCOon 05-31-2023 CNCO Letter Text Normal [facility] CT PANCREAS W IVCONon 2022 [facility] CNPNon 06-25-2020 CNPN Telephone (MEPRAD) LALITHUY ORDONEZ ([id number]) 1965 F Date Time Provider Department 06/25/20 GRAYSON SOLORZANO MEPMARTINEZ During your visit today, we recorded the following information about you: Grayson Solorzano MD, MD 06/25/2020 11:19 AM Signed Please tell her to Start potassium 20 mEq daily Increase levothyroxine to 0.1 mg daily Start atorvastatin 20 mg daily Repeat fasting labs again in 08/2020, orders in [employer]. The following approved medication requests have been transmitted electronically. Signed Prescriptions Disp Refills potassium chloride ER (KLOR-CON M20) 20 mEq tablet 90 tablet 3 Sig: Take 1 tablet by mouth once daily. Authorizing Provider: GRAYSON SOLORZANO levothyroxine (SYNTHROID) 100 mcg tablet 90 tablet 3 Sig: Take 1 tablet by mouth once daily. Authorizing Provider: GRAYSON SOLORZANO atorvastatin (LIPITOR) 20 mg tablet 90 tablet 3 Sig: Take 1 tablet by mouth once daily. Authorizing Provider: GRAYSON SOLORZANO MD Jennifer Sipsock RN 06/25/2020 11:25 AM Signed Notified patient of Dr Solorzano's message. Patient verbalized understanding. Encounter closed. Allergies As of Date: 06/25/2020 Noted Allergy Reaction CONTRAST DYE 10/22/2007 2 - Rash FERROUS GLUCONATE 06/14/2012 8 - GI Upset Comments: Nausea MORPHINE 05/14/2005 2 - Rash ONDANSETRON 02/22/2018 14 - Other: See Comments OXYCONTIN (OXYCODONE HCL) 01/07/2007 2 - Rash 7 - Swelling Comments: Rash, red and swollen eyes, facial swelling PROPRANOLOL 04/02/2017 9 - Itching Date Reviewed: 06/21/2020 Reviewed by: Katya Velasquez Ma - Fully Assessed Reason for Visit: Results [95] Primary Visit Diagnosis:Hypokalemia [E87.6] Other Visit Diagnoses:Mixed hyperlipidemia [E78.2] Acquired hypothyroidism [E03.9] Order(s):potassium chloride ER (KLOR-CON M20) 20 mEq tabletTake 1 tablet by mouth once daily.Disp: 90 tabletRfl: 3 levothyroxine (SYNTHROID) 100 mcg tabletTake 1 tablet by mouth once daily.Disp: 90 tabletRfl: 3 TSH BLD [SQTSH] Order #: [id number] FUTURE T4 FREE/FREE THYROX [SQFT4] Order #: [id number] FUTURE atorvastatin (LIPITOR) 20 mg tabletTake 1 tablet by mouth once daily.Disp: 90 tabletRfl: 3 LIPID PANEL BASIC [SQLIPB] Order #: [id number] FUTURE COMP METABOLIC PANEL [SQCMP] Order #: [id number] FUTURE Prescriptions as of 06/25/2020 Sig: POTASSIUM CHLORIDE ER 20 MEQ * Take 1 tablet by mouth once d* LEVOTHYROXINE 100 MCG TABLET Take 1 tablet by mouth once d* ATORVASTATIN 20 MG TABLET Take 1 tablet by mouth once d* DEXTROAMPHETAMINE-AMPHETAMI NE* Take 1 capsule by mouth twice* CYANOCOBALAMIN (VIT B-12) 1,0* take 1 tablet by mouth once d* FUROSEMIDE 20 MG TABLET Take 1 tablet by mouth twice * MUPIROCIN 2 % TOPICAL OINTMENT Apply 1 application to affect* SPIRONOLACTONE 100 MG TABLET take 1 tablet by mouth once d* FLUTICASONE PROPIONATE 50 MCG* instill 1 spray into each nos* CALCITRIOL 0.5 MCG CAPSULE Take 2 capsules by mouth once* OMEPRAZOLE 20 MG CAPSULE,VANE* Take 1 capsule by mouth twice* VENLAFAXINE 75 MG TABLET Take 3 tablets by mouth once * CALCIUM CARBONATE 200 MG CALC* Take 1 tablet by mouth twice * ARIPIPRAZOLE 2 MG TABLET Take 2 mg by mouth once daily. CHOLECALCIFEROL (VITAMIN D3) * Take 2,000 Units by mouth onc* ZOLPIDEM 5 MG TABLET Take 5 mg by mouth daily at b* BUPROPION XL 150 MG TAB Take 1 tablet by mouth once d* BUPROPION XL 300 MG 24 HR TAB Take 1 tablet by mouth once d* ALPRAZOLAM 0.5 MG TABLET Take 1 tablet by mouth daily * Problem List As Of Date 06/25/2020 Noted Resolved PRIMARY HYPERPARATHYROIDISM [E21.0] 06/15/2005 01/07/2007 Dysmenorrhea [N94.6] 02/25/2009 Irregular Menstrual Cycle [N92.6] 02/25/2009 Depression [F32.9] HYPERPARATHYROIDISM NOS [E21.3] 11/26/2005 01/07/2007 ENDOMETRIAL HYPERPLASIA W ATYPIA [N85.02] 01/15/2006 05/09/2008 Postsurgical hypoparathyroidism (HCC) [E89.2] 06/08/2006 Hypokalemia [E87.6] 04/18/2007 12/20/2014 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 Complex Endometrial Hyperplasia without Atypia *05/09/2008 02/25/2009 CHRISTIE (generalized anxiety disorder) [F41.1] 01/07/2010 Eating disorder NEC 01/07/2010 04/11/2014 Hirsutism [L68.0] 06/06/2010 04/11/2014 Vitamin B12 deficiency [E53.8] 08/15/2010 Onychia and paronychia of toe [L03.039] 09/04/2010 01/31/2014 Nonunion of fracture [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 Normal [facility] No Panel InformationOrdered By: Ccf Provider on 06-21-2020 [facility] No Panel Informationon 06-21 Radiology Study observation (narrative) [facility] XR Ankle - right AP and Late ral and obliqueon 06-21-2020 * * *Final Report* * * DATE OF EXAM: Jun 21 2020 2:06PM WOX [id number] - XR ANKLE 3V AP/LAT/OBL RT / PROCEDURE REASON: Pain in joint involving right ankle and foot * * * * Physician Interpretation * * * * Indication: Right ankle and right foot pain Comparison: None 3 views of the right ankle and 3 views of the right foot are obtained. There is right ankle and right foot soft tissue swelling. Ankle mortise is maintained. There is an oblique nondisplaced fracture of the distal right fifth metatarsal shaft. No dislocation. Joint spaces are maintained. Small plantar calcaneal spur. Impression: Oblique fracture of the distal right fifth metatarsal shaft Grid Trimmer: [facility] Transcribe Date/Time: Jun 21 2020 2:20P Dictated by : AMANDA MCKEON MD This examination was interpreted and the report reviewed and electronically signed by: AMANDA MCKEON MD on Jun 21 2020 2:22PM [facility] DIV[facility] OF RADIOLOGY Provider, [facility] - 06/21/2020 * * *Final Report* * * DATE OF EXAM: Jun 21 2020 2:06PM WOX 5297 - XR ANKLE 3V AP/LAT/OBL RT / PROCEDURE REASON: Pain in joint involving right ankle and foot * * * * Physician Interpretation * * * * Indication: Right ankle and right foot pain Comparison: None 3 views of the right ankle and 3 views of the right foot are obtained. There is right ankle and right foot soft tissue swelling. Ankle mortise is maintained. There is an oblique nondisplaced fracture of the distal right fifth metatarsal shaft. No dislocation. Joint spaces are maintained. Small plantar calcaneal spur. Impression: Oblique fracture of the distal right fifth metatarsal shaft Grid Trimmer: [employer] Transcribe Date/Time: Jun 21 2020 2:20P Dictated by : AMANDA MCKEON MD This examination was interpreted and the report reviewed and electronically signed by: AMANDA MCKEON MD on Jun 21 2020 2:22PM EST [facility] XR Foot - right AP and Later al and obliqueon 06-21-2020 * * *Final Report* * * DATE OF EXAM: Jun 21 2020 2:06PM WOX 5337 - XR FOOT 3V AP/LAT/OBL RT / PROCEDURE REASON: Pain in joint involving right ankle and foot * * * * Physician Interpretation * * * * Indication: Right ankle and right foot pain Comparison: None 3 views of the right ankle and 3 views of the right foot are obtained. There is right ankle and right foot soft tissue swelling. Ankle mortise is maintained. There is an oblique nondisplaced fracture of the distal right fifth metatarsal shaft. No dislocation. Joint spaces are maintained. Small plantar calcaneal spur. Impression: Oblique fracture of the distal right fifth metatarsal shaft Grid Trimmer: [facility] Transcribe Date/Time: Jun 21 2020 2:20P Dictated by : AMANDA MCKEON MD This examination was interpreted and the report reviewed and electronically signed by: AMANDA MCKEON MD on Jun 21 2020 2:22PM [facility] DIVISION OF RADIOLOGY Provider, [facility] - 06/21/2020 * * *Final Report* * * DATE OF EXAM: Jun 21 2020 2:06PM WOX 5337 - XR FOOT 3V AP/LAT/OBL RT / PROCEDURE REASON: Pain in joint involving right ankle and foot * * * * Physician Interpretation * * * * Indication: Right ankle and right foot pain Comparison: None 3 views of the right ankle and 3 views of the right foot are obtained. There is right ankle and right foot soft tissue swelling. Ankle mortise is maintained. There is an oblique nondisplaced fracture of the distal right fifth metatarsal shaft. No dislocation. Joint spaces are maintained. Small plantar calcaneal spur. Impression: Oblique fracture of the distal right fifth metatarsal shaft Grid Trimmer: [facility] Transcribe Date/Time: Jun 21 2020 2:20P Dictated by : AMANDA MCKEON MD This examination was interpreted and the report reviewed and electronically signed by: AMANDA MCKEON MD on Jun 21 2020 2:22PM EST [facility] MA MAMMOGRAM SCREENING BILAT ERAL W/TOMOon 07-27-2017 MA MAMMOGRAM SCREENING BILATERAL W/CELESTE ORIGINAL FROM: [place] [id number] [place], [place] [address] PROCEDURE FOR: THUY WHITE [address] [place] [address] Home: PID#: [id number] Exam#: [id number] : 1965 Age: 52 TO: GABRIELA MAY MD [address] [facility] [address] [place], [place] [address] #[id number] DIGITAL SCREENING MAMMOGRAM 3D/2D WITH CAD WITH MEDIOLATERAL OBLIQUE CRANIOCAUDAL: 07/27/2017 Comparison is made to exams dated: 09/26/2015 mammogram and 10/07/2011 mammogram - [facility]. There are scattered fibroglandular elements in both breasts. Current study was also evaluated with a Computer Aided Detection (CAD) system. No significant masses, calcifications, or other findings are seen in either breast. There has been no significant interval change. IMPRESSION: NEGATIVE There is no mammographic evidence of malignancy. A 1 year screening mammogram is recommended. LETTY RESENDEZ MD cm/penmartinez:07/30/2017 18:28:23 Plate Drying Machine Tender: NUBIA BRYAN (Princess)(M), [facility] letter sent: Normal BI-RADS 1&2 Mammogram BI-RADS: 1 Negative Normal [facility] [place] HPVon 07-21-2017 HPV Interp See Interp HPVN [facility] [place] Comment on above: Order Comment: Order placed by AP_HPV_ORDER rule from [id number] Result Comment: High Risk HPV Typing Positive: [...] detected. See Interp HPOS Performed By: #### H PV #### [place] [address] HPV Source Cervix Normal [facility] [place] Comment on above: Order Comment: Order placed by AP_HPV_ORDER rule from [id number] Performed By: #### H PV #### [place] [address] [employer] Cytology Reporton 2017 Plate Glass Polisher Cytology Report . Pathology Reports Accession: Collected Date/Time: Received Date/Time: Pathologist: [id number] 07/14/2017 11:24 EDT 07/15/2017 18:00 EDT [facility]ology Report SPECIMEN: Specimen Description: Liquid Prep w/ HPV Specimen: Cervical/Endocervical Screening or Diagnostic: Screening RELEVANT HISTORY: LMP: Not Given [id number] SPECIMEN ADEQUACY: SATISFACTORY FOR EVALUATION ENDOCERVICAL/TRANSFORMATION AL ZONE COMPONENT PRESENT INTERPRETATION/RESULTS: NEGATIVE FOR INTRAEPITHELIAL LESION OR MALIGNANCY ADJUNCTIVE TESTING: HIGH RISK HPV DNA TESTING ORDERED, REPORT TO FOLLOW UNDER SEPARATE COVER Electronically Signed by Pathology report verified by [facility]. Screened by: LS Electronically signed by Helene HANSON (ASCP) Sign-Out Date: 07/20/2017 09:24 Performing Lab: [address] Disclaimer The Pap test is a screening test for cervical cancer. As evidenced by published data, it is subject to both inherent false negative and false positive results. Your patient's results should be interpreted in context with pertinent clinical history including gynecological examination. Normal [facility] [place] Comment on above: Performed By: #### G YCR #### [place] [address] Patient Summary Documentson 09-19-2016 Patient Summary Documents Normal [facility] XR FOOT MINIMUM 3 VIEWS VINOD Corral 09-19-2016 XR FOOT MINIMUM 3 VIEWS RIGHT ORIGINALRight foot 3 views HISTORY: Lateral pain, trauma COMPARISON: None There is an oblique fracture at the distal third of the fifth metatarsal. This is nondisplaced. No additional fracture or dislocation seen. Small plantar calcaneal spur noted. Interpreted By: José Miguel Hallmanreliminary Report By: José Miguel Hallman MDElectronically Signed By: José Miguel Hallman MD Dictated Date: 09/19/2016 9:32:18 AM Prelim Date: 09/19/2016 9:32:18 AM Sign Date: 09/19/2016 9:32:53 AM Normal [facility] Vital Signs Date Time Vital Sign Value Performing Clinician Faci lity 01-24-2024 10:59-0500 Body mass index (BMI) [Ratio] 49.2 kg/m2 Peter Sigala MD Work Phone: [facility] 01-24-2024 10:59-0500 Body weight 142.5 kg Peter Sigala MD Work Phone: [facility] 01-24-2024 10:59-0500 Diastolic blood pressure 53 mm[Hg] Peter Sigala MD Work Phone: [facility] 01-24-2024 10:59-0500 Heart rate 106 /min Peter Sigala MD Work Phone: [facility] 01-24-2024 10:59-0500 Systolic blood pressure 123 mm[Hg] Peter Sigala MD Work Phone: [facility] 06-22-2023 07:43-0400 Body temperature 97.2 [degF] Prisca MARRERO Work Phone: [facility] 06-22-2023 07:43-0400 Body weight 144.3 kg Prisca MARRERO Work Phone: [facility] 06-22-2023 07:43-0400 Diastolic blood pressure 76 mm[Hg] Krislyn Aberegg PA Work Phone: [facility] 06-22-2023 07:43-0400 Heart rate 91 /min Krislyn Aberegg PA Work Phone: [facility] 06-22-2023 07:43-0400 Respiratory rate 18 /min Krislyn Aberegg PA Work Phone: [facility] 06-22-2023 07:43-0400 SaO2% (BldA) [Mass fraction] 96 % Krislyn Aberegg PA Work Phone: [facility] 06-22-2023 07:43-0400 Systolic blood pressure 118 mm[Hg] Krislyn Aberegg PA Work Phone: [facility] 10-09-2022 09:56-0400 Body temperature 98.2 [degF] Nallely Jose CIVIL DRAFTING TECHNICIAN.LEHR TENDER Work Phone: [facility] 10-09-2022 09:56-0400 Body weight 134.26 kg Nallely Jose CIVIL DRAFTING TECHNICIAN.LEHR TENDER Work Phone: [facility] 10-09-2022 09:56-0400 Diastolic blood pressure 64 mm[Hg] Nallely Jose CIVIL DRAFTING TECHNICIAN.LEHR TENDER Work Phone: [facility] 10-09-2022 09:56-0400 Heart rate 99 /min Nallely Jose CIVIL DRAFTING TECHNICIAN.LEHR TENDER Work Phone: [facility] 10-09-2022 09:56-0400 Respiratory rate 18 /min Nallely Jose CIVIL DRAFTING TECHNICIAN.LEHR TENDER Work Phone: [facility] 10-09-2022 09:56-0400 SaO2% (BldA) [Mass fraction] 94 % Nallely Jose CIVIL DRAFTING TECHNICIAN.LEHR TENDER Work Phone: [facility] 10-09-2022 09:56-0400 Systolic blood pressure 108 mm[Hg] Nallely Jose CIVIL DRAFTING TECHNICIAN.LEHR TENDER Work Phone: [facility] Encounters Encounter Date Encounter Type Care Provider Facility Start: 09-04-2024 End: 09-04-2024 ambulatory Alondra Samson Facility:[facility] Start: 08-24-2024 End: 08-24-2024 ambulatory Alondra Samson Facility:[facility] Start: 08-16-2024 End: 08-16-2024 ambulatory Alondra Samson Facility:[facility] Start: 08-07-2024 End: 08-07-2024 ambulatory Alondra Abell Facility:[facility] Start: 08-01-2024 End: 08-01-2024 ambulatory Alondra Abell Facility:[facility] Start: 07-30-2024 End: 07-30-2024 Emergency department patient visit Alondra Samson Facility:[facility] Start: 07-28-2024 End: 07-28-2024 ambulatory Alondra Abell Facility:[facility] Start: 07-17-2024 End: 07-17-2024 ambulatory Alondra Abell Facility:[facility] Start: 06-05-2024 End: 06-05-2024 ambulatory Alondra Samson Facility:[facility] Start: 05-23-2024 End: 05-23-2024 ambulatory Alondra Samson Facility:[facility] Start: 05-23-2024 End: 05-23-2024 ambulatory Alondra Samson Facility:[facility] Start: 05-16-2024 ambulatory Filomena Lopez [facility] Start: 05-16-2024 End: 05-18-2024 Evaluation and management of inpatient Filomena Lopez Facility:[facility] Start: 05-11-2024 ambulatory Zulma MARRERO Facilit y:[facility] Start: 05-08-2024 End: 05-08-2024 ambulatory Kenn Terrell Facility:[facility] Start: 05-05-2024 End: 05-05-2024 ambulatory Zulma MARRERO Facility:[facility] Start: 04-13-2024 End: 04-13-2024 ambulatory Kenn Terrell Facility:[facility] Start: 04-07-2024 End: 04-07-2024 ambulatory Alondra Samson Facility:[facility] Start: 04-07-2024 End: 04-07-2024 ambulatory Alondra Davies Facility:[facility] Start: 04-02-2024 End: 04-02-2024 Emergency department patient visit Alondratian Davies Facility:[facility] Start: 03-30-2024 ambulatory Alondra Crawfordlay Facility :[facility] Start: 03-30-2024 End: 04-01-2024 Evaluation and management of inpatient Alondra Davies Facility:[facility] Start: 03-26-2024 End: 03-26-2024 Emergency department patient visit Alondra Davies Facility:[facility] Start: 03-24-2024 End: 03-24-2024 Subsequent hospital visit by physician [facility] Work Phone: Radiology Comment on above: Plantar fasciitis [M 72.2] Start: 03-24-2024 End: 03-24-2024 ambulatory ZULMA SOL Facility:[facility] Start: 03-24-2024 End: 03-24-2024 Patient encounter procedure Zulma Sol Work Phone: Podiatry Comment on above: Plantar fasciitis (P rimary Dx) Start: 02-22-2024 End: 02-22-2024 Emergency department patient visit Alondra Davies Facility:[facility] Start: 02-18-2024 End: 02-18-2024 Emergency department patient visit Alondra Davies Facility:[facility] Start: 01-31-2024 End: 01-31-2024 ambulatory Alondra Davies Facility:[facility] Start: 01-31-2024 End: 01-31-2024 ambulatory Alondra Davies Facility:[facility] Start: 01-24-2024 End: 01-24-2024 Orders Only Peter Sigala MD Work Phone: Endocrine Surgery Comment on above: 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); Hyperparathyroidism (HCC) 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); Obesity, Class III, BMI 40-49.9 (morbid obesity) (HCC) Start: 01-19-2024 End: 01-19-2024 ambulatory Alondra Samson Facility:[facility] Start: 01-07-2024 End: 01-07-2024 Emergency department patient visit Alondra Samson Facility:[facility] Start: 01-03-2024 End: 01-03-2024 Emergency department patient visit Alondra Abell Facility:[facility] Start: 12-24-2023 End: 12-24-2023 ambulatory Alondra Abell Facility:[facility] Start: 12-24-2023 End: 12-24-2023 ambulatory Alondra Abell Facility:[facility] Start: 12-01-2023 End: 12-01-2023 ambulatory [facility] Facility:[facility] Start: 11-09-2023 End: 11-09-2023 ambulatory Alondra Abell Facility:[facility] Start: 11-02-2023 End: 11-02-2023 ambulatory Alondra Abell Facility:[facility] Start: 11-01-2023 End: 11-01-2023 Emergency department patient visit Alondra Abell Facility:[facility] Start: 10-15-2023 End: 10-15-2023 Emergency department patient visit Alondra Abell Facility:[facility] Start: 10-13-2023 End: 10-13-2023 ambulatory Alondra Abell Facility:[facility] Start: 10-12-2023 ambulatory Alondra Samson Facility :[facility] Start: 10-12-2023 End: 10-12-2023 ambulatory Alondra Abell Facility:[facility] Start: 09-14-2023 End: 09-15-2023 ambulatory Alondra Samson Facility:[facility] Start: 08-27-2023 End: 08-27-2023 Patient encounter procedure Syed Kruger APRN.CNP Work Phone: [facility] Comment on above: Procedure not jordin d out (Primary Dx) Start: 08-27-2023 End: 08-27-2023 ambulatory [facility] Facility:[facility] Start: 07-13-2023 Telephone encounter Zulma Giang Work Phone: Podiatry Comment on above: Results Start: 07-08-2023 End: 07-08-2023 ambulatory ZULMA SOL Facility:[facility] Start: 07-08-2023 End: 07-08-2023 Patient encounter procedure Zulma Sol Work Phone: Podiatry Comment on above: Arthritis of right m idfoot (Primary Dx); Foot pain, right; Right foot pain Start: 06-24-2023 Telephone encounter Ryan MARRERO Work Phone: [facility] Comment on above: Opened In Error Start: 06-22-2023 End: 06-22-2023 Subsequent hospital visit by physician [facility] [place] Work Phone: Radiology Comment on above: Foot pain, right [M7 9.671] Start: 06-22-2023 End: 06-22-2023 ambulatory ROSINA MUÑOZ Facility:[facility] Start: 06-22-2023 End: 06-22-2023 Patient encounter procedure Prisca MARRERO Work Phone: [facility] Comment on above: Foot pain, right (Pr imary Dx) Start: 05-27-2023 Refill Grayson schrader MD Work Phone: Endocrinology Comment on above: Refill Request Start: 10-21-2022 Orders Only Peter lin MD Work Phone: Endocrine Surgery Comment on above: 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); Hyperparathyroidism (HCC) Start: 10-09-2022 End: 10-09-2022 Patient encounter procedure Nallely Garcia APRN.CNP Work Phone: [facility] Comment on above: URI with cough and c ongestion (Primary Dx); Acute conjunctivitis of left eye, unspecified acute conjunctivitis type Start: 08-26-2022 End: 08-26-2022 ambulatory Peter Sigala MD Work Phone: Endocrine Surgery Comment on above: MEN1 (multiple endoc rine neoplasia) (HCC); Obesity, Class III, BMI 40-49.9 (morbid obesity) (HCC) Start: 08-26-2022 End: 08-26-2022 Telemedicine consultation with patient Peter Sigala MD Work Phone: [facility] Start: 07-17-2022 End: 07-17-2022 Subsequent hospital visit by physician [facility] ([facility]) Work Phone: Cat Scan Comment on above: Malignant neoplasm o f head of pancreas (HCC) [C25.0] Start: 07-01-2022 Orders Only Peter Guerrero in Work Phone: Endocrine Surgery Start: 06-11-2022 Orders Only Rogerio hammond MD Work Phone: Endocrine Surgery Comment on above: 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) Start: 05-22-2022 Refill Grayson schrader MD Work Phone: Endocrinology Comment on above: Refill Request Start: 01-30-2022 Refill Bret luna MD Work Phone: [facility] Comment on above: Refill Request; Refi ll Request Start: 12-04-2021 Refill Grayson schrader MD Work Phone: Endocrinology Comment on above: Refill Request Start: 10-30-2021 Nurse Triage Bret luna MD Work Phone: [facility] Comment on above: Refill Request Start: 10-07-2021 Refill Bret luna MD Work Phone: [facility] Comment on above: Refill Request Start: 09-03-2021 ambulatory Bret luna MD Work Phone: Internal Medicine [facility] [place] Start: 08-31-2021 Refill Bret luna MD Work Phone: [facility] Comment on above: Refill Request Start: 08-04-2021 Refill Yaneth odonnell APRN.CNP Work Phone: Internal Medicine [place] Comment on above: Refill Request Start: 06-20-2021 Refill Bret luna MD Work Phone: Internal [facility] [place] Comment on above: Refill Request Start: 06-02-2021 Refill Bret luna MD Work Phone: Internal [facility] [place] Comment on above: Refill Request Start: 06-21-2020 End: 06-21-2020 Subsequent hospital visit by physician [facility] [place] Work Phone: Radiology Comment on above: Pain in joint involv ing right ankle and foot [M25.571] Start: 07-27-2017 End: 07-28-2017 Patient encounter procedure [facility] Facility:[facility] Start: 07-14-2017 End: 07-19-2017 Patient encounter procedure [facility] Facility:[facility] Procedures Date Procedure Procedure Detail Performing Clinician Start: 06-22-2023 Radex foot complete minimum 3 views Prisca MARRERO Work Phone: Start: 07-17-2022 Ct abdomen w/contras t material Peter Sigala MD Work Phone: Start: 07-12-2020 Lipid 1996 panel - S shira or Plasma Ct (I-Stat) Work Phone: Start: 06-21-2020 Radex ankle complete minimum 3 views Lucille Rogers APRN.LEHR TENDER Work Phone: Start: 10-24-2018 Colonoscopy Bret Salomon MD Work Phone: Start: 07-27-2017 Mammography Bret Salomon MD Work Phone: Plan of Treatment Date Care Activity Detail Author Start: 06-30-2028 Urine microalbumin profile [facility] Start: 01-23-2027 Diabetes Screening Diabetes Screenin [facility] Start: 07-07-2026 Diabetes Screening Diabetes Screenin [facility] Start: 10-06-2025 DIABETES SCREEN DIABETES SCREEN [facility] Start: 10-06-2025 Diabetes Screening Diabetes Screenin g [facility] Start: 07-12-2025 Lipid 1996 panel - S shira or Plasma Lipid Screening [facility] Start: 07-12-2025 Lipid panel Lipid Screening [facility] Start: 07-12-2025 LIPID SCREEN LIPID SCREEN [facility] Start: 06-12-2025 DIABETES SCREEN DIABETES SCREEN [facility] Start: 01-23-2025 BP Controlled (<130/80) BP Controlle d (<130/80) [facility] Start: 11-30-2024 Complete blood count Hemoglobin/Tavon tocrit [facility] Start: 11-30-2024 Creatinine measurement Serum Creatin ine [facility] Start: 07-07-2024 Creatinine measurement Serum Creatin ine [facility] Start: 06-21-2024 BP Controlled (<130/80) BP Controlle d (<130/80) [facility] Start: 02-28-2024 DIABETES SCREEN DIABETES SCREEN [facility] Start: 01-24-2024 End: 04-24-2024 Calcium [Mass/volume] in Serum or Plasma [facility] Work Phone: Comment on above: Expected: 01/24/2024 , Expires: 04/24/2024 Start: 01-24-2024 End: 04-24-2024 Chromogranin A [Mass/volume] in Serum or Plasma [facility] Comment on above: Expected: 01/24/2024 , Expires: 04/24/2024 Start: 01-24-2024 End: 04-24-2024 Gastrin [Mass/volume] in Serum or Plasma [facility] Comment on above: Expected: 01/24/2024 , Expires: 04/24/2024 Start: 01-24-2024 End: 04-24-2024 INSULIN LIK GR FAC I [facility] Comment on above: Expected: 01/24/2024 , Expires: 04/24/2024 Start: 01-24-2024 End: 04-24-2024 Magnesium [Mass/volume] in Serum or Plasma [facility] Comment on above: Expected: 01/24/2024 , Expires: 04/24/2024 Start: 01-24-2024 End: 04-24-2024 PANCREATIC POLYPEPTIDE [facility] Comment on above: Expected: 01/24/2024 , Expires: 04/24/2024 Start: 01-24-2024 End: 04-24-2024 Parathyrin.intact [Mass/volume] in Serum or Plasma [facility] Comment on above: Expected: 01/24/2024 , Expires: 04/24/2024 Start: 01-24-2024 End: 04-24-2024 Phosphate [Mass/volume] in Serum or Plasma [facility] Comment on above: Expected: 01/24/2024 , Expires: 04/24/2024 Start: 01-24-2024 End: 04-24-2024 PROINSULIN INTACT BLOOD [facility] Comment on above: Expected: 01/24/2024 , Expires: 04/24/2024 Start: 01-24-2024 End: 04-24-2024 Prolactin [Mass/volume] in Serum or Plasma [facility] Comment on above: Expected: 01/24/2024 , Expires: 04/24/2024 Start: 01-24-2024 End: 04-24-2024 SOMATOSTATIN BLD [facility] Comment on above: Expected: 01/24/2024 , Expires: 04/24/2024 Start: 01-24-2024 End: 04-24-2024 VASOACTIVE INTESTINAL POLYPEPTIDE (VIP), PLASMA [facility] Comment on above: Expected: 01/24/2024 , Expires: 04/24/2024 Start: 11-07-2023 Covid-19 Vaccine ( season) Covid-19 Vaccine () [facility] Start: 11-07-2023 Covid-19 Vaccine ( season) Covid-19 Vaccine () [facility] Start: 11-07-2023 [facility] Start: 10-10-2023 BP CONTROLLED (<130/80) BP CONTROLLE D (<130/80) [facility] Start: 10-07-2023 Creatinine measurement Serum Creatin ine [facility] Start: 10-07-2023 SERUM CREATININE SERUM CREATININE Cl [facility] Start: 08-09-2023 End: 10-09-2023 C peptide [Mass/volume] in Serum or Plasma C-PEPTIDE BLD Lab Routine MEN1 (multiple endocrine neoplasia) (HCC) Expected: 08/09/2023 (Approximate), Expires: 10/09/2023 [facility] Work Phone: Comment on above: Expected: 08/09/2023 (Approximate), Expires: 10/09/2023 Start: 08-09-2023 End: 10-09-2023 Calcium [Mass/volume] in Serum or Plasma CALCIUM TOTAL BLD Lab Routine MEN1 (multiple endocrine neoplasia) (HCC) Expected: 08/09/2023 (Approximate), Expires: 10/09/2023 [facility] Work Phone: Comment on above: Expected: 08/09/2023 (Approximate), Expires: 10/09/2023 Start: 08-09-2023 End: 10-09-2023 Chromogranin A [Mass/volume] in Serum or Plasma CHROMOGRANIN A Lab Routine MEN1 (multiple endocrine neoplasia) (HCC) Expected: 08/09/2023 (Approximate), Expires: 10/09/2023 [facility] Work Phone: Comment on above: Expected: 08/09/2023 (Approximate), Expires: 10/09/2023 Start: 08-09-2023 End: 10-09-2023 Fasting glucose [Mass/volume] in Serum or Plasma GLUCOSE FASTING BLD Lab Routine MEN1 (multiple endocrine neoplasia) (HCC) Expected: 08/09/2023 (Approximate), Expires: 10/09/2023 [facility] Work Phone: Comment on above: Expected: 08/09/2023 (Approximate), Expires: 10/09/2023 Start: 08-09-2023 End: 10-09-2023 Gastrin [Mass/volume] in Serum or Plasma GASTRIN BLD Lab Routine MEN1 (multiple endocrine neoplasia) (HCC) Expected: 08/09/2023 (Approximate), Expires: 10/09/2023 [facility] Work Phone: Comment on above: Expected: 08/09/2023 (Approximate), Expires: 10/09/2023 Start: 08-09-2023 End: 10-09-2023 Glucagon [Mass/volume] in Serum or Plasma GLUCAGON BLD Lab Routine MEN1 (multiple endocrine neoplasia) (FORMERLY [facility]) Expected: 08/09/2023 (Approximate), Expires: 10/09/2023 [facility] Work Phone: Comment on above: Expected: 08/09/2023 (Approximate), Expires: 10/09/2023 Start: 08-09-2023 End: 10-09-2023 Insulin [Units/volume] in Serum or Plasma INSULIN ASSAY BLOOD Lab Routine MEN1 (multiple endocrine neoplasia) (FORMERLY [facility]) Expected: 08/09/2023 (Approximate), Expires: 10/09/2023 [facility] Work Phone: Comment on above: Expected: 08/09/2023 (Approximate), Expires: 10/09/2023 Start: 08-09-2023 End: 10-09-2023 Magnesium [Mass/volume] in Serum or Plasma MAGNESIUM BLD Lab Routine MEN1 (multiple endocrine neoplasia) (FORM[facility]LY [facility]) Expected: 08/09/2023 (Approximate), Expires: 10/09/2023 [facility] Work Phone: Comment on above: Expected: 08/09/2023 (Approximate), Expires: 10/09/2023 Start: 08-09-2023 End: 10-09-2023 PANCREATIC POLYPEPTIDE PANCREATIC POLYPEPTIDE Lab Routine MEN1 (multiple endocrine neoplasia) (FORM[facility]LY [facility]) Expected: 08/09/2023 (Approximate), Expires: 10/09/2023 [facility] Work Phone: Comment on above: Expected: 08/09/2023 (Approximate), Expires: 10/09/2023 Start: 08-09-2023 End: 10-09-2023 Parathyrin.intact [Mass/volume] in Serum or Plasma PTH INTACT BLD Lab Routine MEN1 (multiple endocrine neoplasia) (FORM[facility]LY [facility]) Expected: 08/09/2023 (Approximate), Expires: 10/09/2023 [facility] Work Phone: Comment on above: Expected: 08/09/2023 (Approximate), Expires: 10/09/2023 Start: 08-09-2023 End: 10-09-2023 PROINSULIN INTACT BLOOD PROINSULIN INTACT BLOOD Lab Routine MEN1 (multiple endocrine neoplasia) (FORM[facility]LY [facility]) Expected: 08/09/2023 (Approximate), Expires: 10/09/2023 [facility] Work Phone: Comment on above: Expected: 08/09/2023 (Approximate), Expires: 10/09/2023 Start: 08-09-2023 End: 10-09-2023 Prolactin [Mass/volume] in Serum or Plasma PROLACTIN BLD Lab Routine MEN1 (multiple endocrine neoplasia) (FORM[facility]LY [facility]) Expected: 08/09/2023 (Approximate), Expires: 10/09/2023 [facility] Work Phone: Comment on above: Expected: 08/09/2023 (Approximate), Expires: 10/09/2023 Start: 08-09-2023 End: 10-09-2023 SOMATOSTATIN BLD SOMATOSTATIN BLD Lab Routine MEN1 (multiple endocrine neoplasia) ([facility]LY [facility]) Expected: 08/09/2023 (Approximate), Expires: 10/09/2023 [facility] Work Phone: Comment on above: Expected: 08/09/2023 (Approximate), Expires: 10/09/2023 Start: 08-09-2023 End: 10-09-2023 Vasoactive intestinal peptide [Mass/volume] in Serum or Plasma VIP Lab Routine MEN1 (multiple endocrine neoplasia) ([facility]LY [facility]) Expected: 08/09/2023 (Approximate), Expires: 10/09/2023 [facility] Work Phone: Comment on above: Expected: 08/09/2023 (Approximate), Expires: 10/09/2023 Start: 08-09-2023 End: 08-09-2023 ambulatory 08/09/2023 11:00 AM EDT Results Only [facility] [address] [place] [id number] [facility] Start: 07-15-2023 SERUM CREATININE SERUM CREATININE [facility] Start: 11-06-2022 Covid-19 Vaccine () Covid-19 Vaccine () [facility] Start: 11-06-2022 [facility]: 06-11-2022 End: 08-11-2022 C peptide [Mass/volume] in Serum or Plasma C-PEPTIDE BLD Lab Routine MEN1 (multiple endocrine neoplasia) (HCC) Expected: 06/11/2022, Expires: 08/11/2022 [facility] Work Phone: Comment on above: Expected: 06/11/2022 , Expires: 08/11/2022 Start: 06-11-2022 End: 08-11-2022 Calcium [Mass/volume] in Serum or Plasma CALCIUM TOTAL BLD Lab Routine MEN1 (multiple endocrine neoplasia) (HCC) Expected: 06/11/2022, Expires: 08/11/2022 [facility] Work Phone: Comment on above: Expected: 06/11/2022 , Expires: 08/11/2022 Start: 06-11-2022 End: 08-11-2022 Chromogranin A [Mass/volume] in Serum or Plasma CHROMOGRANIN A Lab Routine MEN1 (multiple endocrine neoplasia) (HCC) Expected: 06/11/2022, Expires: 08/11/2022 [facility] Work Phone: Comment on above: Expected: 06/11/2022 , Expires: 08/11/2022 Start: 06-11-2022 End: 08-11-2022 Fasting glucose [Mass/volume] in Serum or Plasma GLUCOSE FASTING BLD Lab Routine MEN1 (multiple endocrine neoplasia) (HCC) Expected: 06/11/2022, Expires: 08/11/2022 [facility] Work Phone: Comment on above: Expected: 06/11/2022 , Expires: 08/11/2022 Start: 06-11-2022 End: 08-11-2022 Gastrin [Mass/volume] in Serum or Plasma GASTRIN BLD Lab Routine MEN1 (multiple endocrine neoplasia) (HCC) Expected: 06/11/2022, Expires: 08/11/2022 [facility] Work Phone: Comment on above: Expected: 06/11/2022 , Expires: 08/11/2022 Start: 06-11-2022 End: 08-11-2022 Insulin [Units/volume] in Serum or Plasma INSULIN ASSAY BLOOD Lab Routine MEN1 (multiple endocrine neoplasia) (FORM[facility]LY [facility]) Expected: 06/11/2022, Expires: 08/11/2022 [facility] Work Phone: Comment on above: Expected: 06/11/2022 , Expires: 08/11/2022 Start: 06-11-2022 End: 08-11-2022 PANCREATIC POLYPEPTIDE PANCREATIC POLYPEPTIDE Lab Routine MEN1 (multiple endocrine neoplasia) (FORM[facility]LY [facility]) Expected: 06/11/2022, Expires: 08/11/2022 [facility] Work Phone: Comment on above: Expected: 06/11/2022 , Expires: 08/11/2022 Start: 06-11-2022 End: 08-11-2022 Parathyrin.intact [Mass/volume] in Serum or Plasma PTH INTACT BLD Lab Routine MEN1 (multiple endocrine neoplasia) (FORM[facility]LY [facility]) Expected: 06/11/2022, Expires: 08/11/2022 [facility] Work Phone: Comment on above: Expected: 06/11/2022 , Expires: 08/11/2022 Start: 06-11-2022 End: 08-11-2022 Phosphate [Mass/volume] in Serum or Plasma PHOSPHORUS INORGANIC Lab Routine MEN1 (multiple endocrine neoplasia) (FORM[facility]LY [facility]) Expected: 06/11/2022, Expires: 08/11/2022 [facility] Work Phone: Comment on above: Expected: 06/11/2022 , Expires: 08/11/2022 Start: 06-11-2022 End: 08-11-2022 PROINSULIN INTACT BLOOD PROINSULIN INTACT BLOOD Lab Routine MEN1 (multiple endocrine neoplasia) ([facility]LY [facility]) Expected: 06/11/2022, Expires: 08/11/2022 [facility] Work Phone: Comment on above: Expected: 06/11/2022 , Expires: 08/11/2022 Start: 06-11-2022 End: 08-11-2022 Prolactin [Mass/volume] in Serum or Plasma PROLACTIN BLD Lab Routine MEN1 (multiple endocrine neoplasia) (HCC) Expected: 06/11/2022, Expires: 08/11/2022 [facility] Work Phone: Comment on above: Expected: 06/11/2022 , Expires: 08/11/2022 Start: 06-11-2022 End: 08-11-2022 SOMATOSTATIN BLD SOMATOSTATIN BLD Lab Routine MEN1 (multiple endocrine neoplasia) (HCC) Expected: 06/11/2022, Expires: 08/11/2022 [facility] Work Phone: Comment on above: Expected: 06/11/2022 , Expires: 08/11/2022 Start: 06-11-2022 End: 08-11-2022 SULFONYLUREA HYPO UR SULFONYLUREA HYPO UR Lab Routine MEN1 (multiple endocrine neoplasia) (HCC) Expected: 06/11/2022, Expires: 08/11/2022 [facility] Work Phone: Comment on above: Expected: 06/11/2022 , Expires: 08/11/2022 Start: 06-11-2022 End: 08-11-2022 Vasoactive intestinal peptide [Mass/volume] in Serum or Plasma VIP Lab Routine MEN1 (multiple endocrine neoplasia) (HCC) Expected: 06/11/2022, Expires: 08/11/2022 [facility] Work Phone: Comment on above: Expected: 06/11/2022 , Expires: 08/11/2022 Start: 05-12-2022 Pneumococcal Vaccine : 50+ (3 of 3 - PCV20 or PCV21) Pneumococcal Vaccine: 50+ (3 of 3 - PCV20 or PCV21) [facility] Start: 04-04-2022 SERUM CREATININE SERUM CREATININE [facility] Start: 02-25-2022 Complete blood count Hemoglobin/Tavon tocrit [facility] Start: 02-25-2022 HEMOGLOBIN/HEMATOCRIT HEMOGLOBIN/HEM ATOCRIT [facility] Start: 12-26-2021 COLORECTAL CANCER SCREENING COLORECTAL CANCER SCREENING [facility] Start: 12-26-2021 FECAL OCCULT BLOOD FECAL OCCULT BLOO D [facility] Start: 12-26-2021 Screening for malign ant neoplasm of colon [facility] Start: 12-18-2021 ANNUAL PCP TEAM SWEATBAND SHAPER WEN DISEASE VISIT ANNUAL PCP TEAM CHRONIC DISEASE VISIT [facility] Start: 12-18-2021 BP CONTROLLED (<130/80) BP CONTROLLE D (<130/80) [facility] Start: 11-06-2021 Influenza vaccination INFLUENZA (#1) [facility] Start: 12-30-2020 COVID-19 VACCINE (3 - Booster for Moderna series) COVID-19 VACCINE (3 - Booster for Moderna series) [facility] Start: 09-24-2020 COVID-19 VACCINE (3 - Booster for Moderna series) COVID-19 VACCINE (3 - Booster for Moderna series) [facility] Start: 09-24-2020 COVID-19 VACCINE (3 - Moderna series) COVID-19 VACCINE (3 - Moderna series) [facility] Start: 10-25-2019 Colonoscopy COLONOSCOPY [facility] Start: 10-25-2019 Screening for malign ant neoplasm of colon Colonoscopy [facility] Start: 07-27-2018 Mammography [facility] Start: 07-27-2018 Screening for malign ant neoplasm of breast Mammogram Screening [facility] Start: 2016 SHINGRIX VACCINE (1 of 2) SHINGRIX VACCINE (1 of 2) [facility] Start: 2011 COLOGUARD (FIT-DNA) COLOGUARD (FIT-D NA) [facility] Start: [address] [facility] Start: 2011 Screening for malign ant neoplasm of colon [facility] Start: 2011 SIGMOIDOSCOPY SIGMOIDOSCOPY [facility] Start: 1985 Hepatitis B Vaccine (1 of 3 - 19+ 3-dose series) Hepatitis B Vaccine (1 of 3 - 19+ 3-dose series) [facility] Start: 1984 BP CONTROLLED (<130/80) BP CONTROLLE D (<130/80) [facility] Start: 1966 HEPATITIS B (1 of 3 - 3-dose series) HEPATITIS B (1 of 3 - 3-dose series) [facility] Start: 1966 Hepatitis B Vaccine (1 of 3 - 3-dose series) Hepatitis B Vaccine (1 of 3 - 3-dose series) [facility] End: 10-03-2022 Screening mammography bi 2-view breast inc cad LEXI SCREENING Radiology Routine Encounter for screening mammogram for breast cancer 1 Occurrences starting 09/03/2021 until 10/03/2022 [facility] Work Phone: Comment on above: 1 Occurrences starti ng 09/03/2021 until 10/03/2022 US Thyroid gland US THYROID/PARA THYROID (POC) ENDO USE ONLY Imaging Diagnostic Routine MEN1 (multiple endocrine neoplasia) (HCC) Ordered: 01/24/2024 [facility] Work Phone: Comment on above: Ordered: 01/24/2024 XR Foot - left AP an d Lateral and oblique XR FOOT GENERAL 3V AP/LAT/OBL LEFT Radiology Routine Plantar fasciitis 03/24/2024 12:03 PM EST [facility] Work Phone[facility] Immunizations Immunization Date Immunization Notes Care Provider [facility] 12-18-2020 influenza, injectabl e, quadrivalent, contains preservative Bret Salomon MD Work Phone: [facility] 12-18-2020 influenza virus vacc ine, unspecified formulation Ct (I-Stat) Work Phone: [facility] 11-22-2018 influenza, injectabl e, quadrivalent, contains preservative Bret Salomon MD Work Phone: [facility] 06-30-2018 tetanus toxoid, redu marciano diphtheria toxoid, and acellular pertussis vaccine, adsorbed Bret Salomon MD Work Phone: [facility] 11-26-2017 influenza, injectabl e, quadrivalent, contains preservative Bret Salomon MD Work Phone: [facility] 05-12-2017 pneumococcal conjuga te vaccine, 13 valent Bret Salomon MD Work Phone: [facility] 01-13-2017 influenza, injectabl e, quadrivalent, contains preservative Bret Salomon MD Work Phone: [facility] 11-15-2015 influenza, injectabl e, quadrivalent, contains preservative Bret Salomon MD Work Phone: [facility] 11-15-2015 pneumococcal polysaccharide vaccine, 23 valent Bret Salomon MD Work Phone: [facility] 12-18-2014 influenza, seasonal, injectable Bret Salomon MD Work Phone: [facility] 01-12-2013 influenza virus vacc ine, unspecified formulation Bret Salomon MD Work Phone: [facility] 12-15-2011 influenza virus vacc ine, unspecified formulation Bret Salomon MD Work Phone: [facility] 12-15-2011 tetanus toxoid, redu marciano diphtheria toxoid, and acellular pertussis vaccine, adsorbed Bret Salomon MD Work Phone: [facility] 12-06-2008 pneumococcal polysaccharide vaccine, 23 valent Bret Salomon MD Work Phone: [facility] Work Phone: 01-07-2007 influenza virus vacc ine, unspecified formulation Bret Salomon MD Work Phone: [facility] 01-27-2006 influenza virus vacc ine, unspecified formulation Bret Salomon MD Work Phone: [facility] Payers Date Payer Category Payer Unknown [id number] 2023 Self-pay 2022 Medicare [id number] 2019 [place] [id number] 2019-Present [phone] [address] [place] [address] Medicaid [id number] 2019 [place] [id number] 2019-Present [phone] [address] [place] [address] Medicaid [id number] 2018 Medicare [employer] [place] [id number] 2018-Present [phone] [address] [place] [address] O [id number] 2018 Medicare [id number] [id number] 2017 Medicaid [id number] 2017 Medicare [id number] 1965 Unknown [id number] 2.16.840.1.209530.3.579.2.627 1966 Unknown [id number] 2.16840.1.951961.3.579.2.627 Unknown [id number] 2.16840.1.146932.3.579.2.462 Unknown [id number] 2.16840.1.226981.3.579.2.462 Unknown [id number] .16.840.1.348767.3.579.2.462 Unknown [id number] 2.16.840.1.756420.3.579.2.462 Unknown [id number] 2.16.840.1.244339.3.579.2.462 Unknown [id number] 2.16.840.1.020266.3.579.2.462 Unknown [id number] 2.16.840.1.763157.3.579.2.462 Unknown [id number] 2.16.840.1.700421.3.579.2.462 Unknown [id number] 2.16.840.1.805855.3.579.2.462 Unknown [id number] 2.16.840.1.183690.3.579.2.462 Unknown [id number] 2.16.840.1.950176.3.579.2.462 Unknown [id number] 2.16.840.1.956969.3.579.2.462 Unknown [id number] 2.16.840.1.617706.3.579.2.462 Unknown [id number] 2.16.840.1.227735.3.579.2.462 Unknown [id number] 2.16.840.1.285801.3.579.2.462 Unknown [id number] 2.16.840.1.919195.3.579.2.462 Unknown [id number] 2.16.840.1.191360.3.579.2.462 Unknown [id number] 2.16.840.1.143292.3.579.2.462 Unknown [id number] 2.16.840.1.343924.3.579.2.462 Unknown [id number] 2.16.840.1.001890.3.579.2.462 Unknown [id number] 2.16.840.1.937056.3.579.2.462 Unknown [id number] 2.16.840.1.962582.3.579.2.462 Unknown [id number] 2.16.840.1.611995.3.579.2.462 Unknown [id number] 2.16.840.1.818032.3.579.2.462 Unknown [id number] 2.16.840.1.251228.3.579.2.462 Unknown [id number] 2.16.840.1.041551.3.579.2.462 Unknown [id number] 2.16.840.1.770876.3.579.2.462 Unknown [id number] 2.16.840.1.380751.3.579.2.462 Unknown [id number] 2.16.840.1.853896.3.579.2.462 Unknown [id number] 2.16.840.1.907168.3.579.2.462 Unknown [id number] 2.16.840.1.952462.3.579.2.462 Unknown [id number] 2.16.840.1.444707.3.579.2.462 Unknown [id number] 2.16840.1.908873.3.579.2.462 Unknown [id number] 2.16840.1.810061.3.579.2.462 Unknown [id number] 2.840.1.999067.3.579.2.462 Unknown [id number] 2.16840.1.371644.3.579.2.462 Unknown [id number] 2.840.1.081753.3.579.2.462 Unknown [id number] 2.840.1.383313.3.579.2.462 Unknown [id number] 2.840.1.679633.3.579.2.462 Unknown [id number] 2.16840.1.581158.3.579.2.462 Unknown [id number] 2.16840.1.225307.3.579.2.462 Unknown [id number] 2.840.1.440331.3.579.2.462 Unknown [id number] 2.840.1.369623.3.579.2.462 Unknown [id number] 2.840.1.357834.3.579.2.462 Unknown [id number] 2.840.1.441798.3.579.2.462 Unknown [id number] 2.840.1.848100.3.579.2.462 Social History Date Type Detail Facility Start: 11-24-2010 End: 10-09-2022 Tobacco smoking status NHIS Never smoked tobacco [facility] Start: 12-18-2020 End: 03-24-2024 Alcohol intake Current drinker of alcohol (finding) [facility] Start: 08-17-2019 End: 03-06-2020 History SDOH Alcohol Frequency 1 [facility] Start: 05-02-2019 History SDOH Alcohol Std Drinks 98 [facility] Start: 01-29-2016 History SDOH Alcohol Comment occasionally - social [facility] Start: 03-20-2019 End: 08-17-2019 History SDOH Social Connections Phone 5 [facility] Start: 08-17-2019 End: 03-06-2020 History SDOH Social Connections Islam 2 [facility] Start: 03-20-2019 End: 08-17-2019 History SDOH Physical Activity DPW 0 [facility] Start: 03-19-2019 Education 21 [facility] Start: 1965 Sex Assigned At Female [facility] Start: 11-24-2010 End: 10-09-2022 Tobacco use and exposure Smokeless tobacco non-user [facility] Work Phone: Start: 08-17-2019 End: 08-26-2022 History of Social function [facility] Start: 08-17-2019 End: 08-26-2022 Social connection and isolation panel [facility] Frequency of Communication with Friends and Family Not on file [facility] How often to you hav e a drink containing alcohol? Never [facility] Do you feel stress - tense, restless, nervous, or anxious, or unable to sleep at night because your mind is troubled all the time - these days [OSQ] Only a little [facility] (I/We) worried ruben er (my/our) food would run out before (I/we) got money to buy more. Never true [facility] In the past 12 month s, was there a time when you were not able to pay the mortgage or rent on time? No [facility] Start: 04-05-2020 Gender identity Identifies as female gender (finding) [facility] Start: 05-22-2020 End: 06-21-2020 Exposure to SARS-CoV-2 (event) Not sure [facility] Medical Equipment Procedure Code Equipment Code Equipment Origin al Text Equipment Identifier Dates Koc-Ua-I-Kind plant - [id number]_[facility] Start: 11-26-2010 Comment on above: Description: infuse bone graft rhbmp-2 acs 0.7cc absorable collagen sponge Rcb-Is-A-Kind plant - [id number] 283386_[facility] Start: 11-26-2010 Comment on above: Description: mini ra il Kto-Of-L-Kind plant - [id number] 283389_[facility] Start: 11-26-2010 Comment on above: Description: 70mm th readed wire Aun-Jp-O-Kind plant - [id number] 283390_[facility] Start: 11-26-2010 Comment on above: Description: clamp c over Xyn-Ei-V-Kind plant - [id number] 310777_[facility] Start: 02-04-2011 Comment on above: Description: FLAT 4 HOLE PLATE Hol-Ss-E-Kind plant - [id number] 310784_[facility] Start: 02-04-2011 Comment on above: Description: 2.4MM X 8MM LOCKING SCREW Xja-Ta-T-Kind plant - [id number] 310785_[facility] Start: 02-04-2011 Comment on above: Description: 2.4MM X 12MM LOCKING SCREW Lnl-Ec-P-Kind plant - [id number] 310794_[facility] Start: 02-04-2011 Comment on above: Description: NON LOC GRUPO SCREW 2.4MM X 12MM Graft Semitendin osus Tendon [id number] Soft Tissue Allograft [facility] - [id number]_[facility] Start: 10-30-2016 Clinical Notes 07-13-2018 to 05-18-2024 Katya Rivera RT(Princess) - 03/24/2024 11:50 AM ESTPatient InstructionsTestZulma osorio - 03/24/2024 11:37 AM Peter Atkinson MD - 01/24/2024 12:48 PM ESTPatient InstructionsPatient Instructions Note Date & Type Note Facility 05-18-2024 Note [facility] 04-01-2024 Note [facility] 03-24-2024 History of Present illness Narrative Radiology Service Progress Note PATIENT NAME: Thuy White DATE OF SERVICE: March 24, 2024 TIME: 1:41 PM PATIENT IDENTITY VERIFICATION COMPLETED USING TWO (2) IDENTIFIERS: Name and Date of confirmed by patient verbally. FALL SCREENING: Has the patient had 2 falls in the last year or 1 fall with injury or currently using an Ambulatory Assistive Device (Walker, Cane, Wheelchair, Crutches, etc.)? No PATIENT GENDER DATA: Assigned female at . status: : No status: NO. PATIENT RELEVANT IMPLANT DATA REVIEWED: Not Applicable PATIENT PRESENTS WITH AN IMPLANTABLE OR ATTACHED BOOKKEEPING MANAGER: No RADIOLOGY DEPARTMENT: General X-ray: Exam(s) Completed: Lower Extremity X-Ray(s): Foot, Left and Wt. Bearing PERIPHERAL IV DATA: Not applicable SIGNED BY: RT Julian(Princess) March 24, 2024 1:41 PM documented in this encounter [facility] 03-24-2024 Note HNO ID: [id number] Author: KATYA RIVERA RT(R) Service: ? Author Type: Technologist Type: Progress Notes Filed: 03/24/2024 13:41 Note Text: Radiology Service Progress Note PATIENT NAME: Thuy White DATE OF SERVICE: March 24, 2024 TIME: 1:41 PM PATIENT IDENTITY VERIFICATION COMPLETED USING TWO (2) IDENTIFIERS: Name and Date of confirmed by patient verbally. FALL SCREENING: Has the patient had 2 falls in the last year or 1 fall with injury or currently using an Ambulatory Assistive Device (Walker, Cane, Wheelchair, Crutches, etc.)? No PATIENT GENDER DATA: Assigned female at . status: : No status: NO. PATIENT RELEVANT IMPLANT DATA REVIEWED: Not Applicable PATIENT PRESENTS WITH AN IMPLANTABLE OR ATTACHED BOOKKEEPING MANAGER: No RADIOLOGY DEPARTMENT: General X-ray: Exam(s) Completed: Lower Extremity X-Ray(s): Foot, Left and Wt. Bearing PERIPHERAL IV DATA: Not applicable SIGNED BY: RT Julian(R) March 24, 2024 1:41 PM [facility] 03-24-2024 Zulma Wilson 03/24/2024 11:41 AM EST Images from the original note were not included. What is Plantar Fasciitis? Plantar fasciitis is the most common cause of heel pain. The pain is caused by inflammation of the plantar fascia. If you strain your plantar fascia, it becomes weak, swollen and irritated (inflamed). The resulting pain may be isolated in the heel or may appear at different points on the bottom of the foot, from time to time; it may occur in one foot or both. Some think that plantar fasciitis pain is caused by irritation of nerves from tissue swelling or inflammation, but it is debatable. Plantar fasciitis is common in middle-aged people; it also occurs in younger people who are on their feet a lot, such as athletes or soldiers. The plantar fascia is a strong band of connective tissue that extends from the base of the toes, along the bottom of the foot, to the bottom of the heel (calcaneous bone); it acts like a bowstring to maintain the arch of the foot. What are heel spurs? The inflammatory reaction of the heel bone may produce spike-like projections of new bone, called heel spurs. The spurs sometimes show on X-rays. They neither cause the initial pain nor do they cause the initial problem. However, later, having to walk on spurs may cause sharp pain. What causes plantar fasciitis? Plantar fasciitis is caused by straining the ligament that supports your arch. Repeated strain can cause tiny tears in the ligament. These lead to pain and swelling. During walking, the plantar fascia experiences tension up to twice the body weight with each step. While this is normal, those who spend much time on their feet, such as nurses, gospel singer/waiters, and mail carriers, often experience plantar fasciitis. Athletes involved in tennis or other racquet sports, race walking, jogging or running also show a higher incidence of plantar fasciitis than do those participating in other activities. Thus, it's clear that plantar fasciitis is predominantly an overuse injury. In fact, any activity that results in prolonged tension and stress on the plantar fascia may cause plantar fasciitis. It is possible that changes in footwear may play a role in causing plantar fasciitis, no matter what activity is occurring. Those who are overweight are prone to plantar fasciitis. This is true even for sedentary people who get little physical activity. Abnormalities of the foot and ankle joints may predispose some individuals to development of plantar fasciitis (specifically, over pronation of the subtalar joint). Contributing Factors * Flat feet * Toe running, hill running * Sudden weight increase * High-arched, rigid feet * Soft terrain, e.g. running on sand * Obesity * Pronated feet (rolled inward) * Sudden increase in activity * Family tendency * Poor shoe support * Worn out or poorly fitted shoes * Increasing age * Walking, standing or running for long periods of time, especially on hard surfaces. How is the Injury Treated? Rest Your Feet: Limit, or if possible, stop activities that are causing your heel pain. Try to avoid running or walking on hard surfaces, such as concrete. Use pain as your guide. If your foot is too painful, rest it. Ice: Ice the sore area for 30 to 60 minutes, several times a day, to reduce inflammation and relieve pain. Apply a plastic bag of crushed ice (or a bag of frozen peas) over a towel. Ice the sore area for 15 minutes after activity/exercise. Application of heat is not generally recommended, as heat expands the bone and connective tissue, perhaps exerting greater pressure on nerves and thereby increasing pain. If heat is used, follow it with ice. Medication: If your condition developed recently, anti-inflammatory/analgesic medication, combined with heel pads (see below) may be all that is necessary to relieve pain and to reduce inflammation. If no pain relief has occurred after 2-3 weeks, however, your doctor may inject either cortisone or local anesthetic directly into the tender area. Exercises: Do simple exercises, such as calf stretches and towel stretches (see below) several times a day, especially when you first get up in the morning. These can help your ligament become more flexible and strengthen the muscles that support your arch. Shoes: Poorly fitting shoes can cause plantar fasciitis. The best type of shoe to wear is a good walking or running shoe with good shock absorption and excellent arch support. You should choose the one that fits the best. [place] with your athletic shoes to find a pair that is comfortable and causes fewer symptoms. Put your shoes on as soon as you get out of bed; going barefoot or wearing slippers may make your pain worse. Good brands include (but are not limited to): New Balance, Asics, Saucony, SAS and Merrel s. Taping: Your doctor may tape your foot to maintain the arch. This takes some of the tension off the plantar fascia. Weight Loss: If your weight is putting extra stress on your feet, your doctor may encourage you to try a weight-loss program. Orthotics: An orthotic insole is a molded piece of rubber, plastic, or other material that you insert into your shoe. It corrects the alignment of your foot and cushions your foot from excessive pounding. These may be prescription or non-prescription. Prescription orthotics are custom-fitted and may fit better and control pain better, but are very expensive. Night Splints: A night splint holds the foot with the toes pointed up and the ankle at a 90-degree angle. This position applies a constant, gentle stretch to the plantar fascia. Corticosteroid Shots: Steroids may be injected into the tender area to reduce inflammation. REHAB Exercises to stretch the plantar fascia, the calf muscles, and the Achilles tendon. Tightness of the muscles of the calves may contribute to plantar fasciitis, so stretching the calf muscles is important to rehabilitation, as is stretching of the plantar fascia itself. Plantar fascial stretches Assisted Dorsiflexion/Plantar Fascia Stretch: Sit on the floor or ground, barefoot, with both legs outstretched. Use a towel or elastic band and wrap it around the ball (and not the toes) of the affected foot. Use the towel or elastic band to provide resistance to upward movement of the forefoot. Pull foot upward (toward your body) with the help of the elastic band or towel, and then return to the starting position. Ten repetitions are recommended. Perform the sequence at least three times a day. Alternate Plantar Fascia Stretch: Sit upright in a chair, barefoot. Place the ankle of the affected foot on your opposite knee. Using the same hand as the affected foot, reach across and grab the toes. Flex the ankle toward and pull the toes toward the gerardo. To test the stretch, place the thumb of your hand on the bottom of the foot. You should be able to feel the cord-like plantar fascia, running the length of the foot. Hold the stretch for a count of 10, then relax. Repeat 10 times. Do the sequence at least three times a day. Achilles/Calf Stretches Strengthening the muscles of the calves may contribute to successful rehabilitation of plantar fasciitis, as well as prevent reoccurrence. The exercises below will help strengthen the calf muscles. Calf and Achilles Tendon Stretch (Gastrocnemius Stretch): Face a wall, standing an arm's length away. Place one foot back. Place both hands on the wall. Bend the elbows and knee of your forward leg, keeping the heel of the backward foot on the floor and keeping your body straight (aligned), until your forehead nearly touches the wall, or until significant stretch is felt in the muscles of the calf of the backward leg. Hold this position for 10 to 15 seconds. Extend elbows (straighten your arms and stand upright again) and maintain this position for 10 seconds. Repeat this cycle 15 to 20 times. Switch legs and repeat the exercise. documented in this encounter [facility] 03-24-2024 Note HNO ID: [id number] Author: ZULMA SOL, ? Service: ? Author Type: Physician Type: Progress Notes Filed: 03/30/2024 21:03 Note Text: FOLLOW UP PODIATRIC OFFICE VISIT Chief Complaint: This 58 year old who presents for left foot pain Patient comes to the clinic today with complaint of left heel pain Has been present x 1 month Patient states the pain is most intense when she gets up from a seated position Current treatment includes advil. Patient is using inserts which does provide some relief. Here to discuss options PAIN EVALUATION 03/24/2024 1103 Pain Level: 4 Pain Location: Foot-Left Description: Stabbing/Not Incision Duration Amount of Time: 7 Duration Units: Months Frequency: Continuous Hemoglobin A1C Date Value Ref Range Status 11/24/2017 5.4 4.3 - 5.6 % Final PCP: No primary care provider on file. PAST MEDICAL HISTORY Diagnosis Date ADD (attention [...] dairy exacerbates MEN 1 (multiple endocrine neoplasia) ([facility] ([facility]) 2006 s/p sleeve Dr Dale Obstructive sleep apnea fair complaince with CPAP Primary hyperparathyroidism ([facility]) 3 1/2 gland parathyroidectomy Renal insufficiency Sternoclavicular joint subluxation 07/16/2016 Current Outpatient Medications Medication Sig albuterol HFA (PROVENTIL HFA, VENTOLIN HFA) 90 mcg/actuation inhaler inhale 2 puffs by mouth every 4 hours if needed for wheezing benztropine (COGENTIN) 0.5 mg tablet Take 1 tablet by mouth every 12 hours. pantoprazole sodium (PROTONIX ORAL) Take 1 capsule by mouth once daily. VRAYLAR 1.5 mg capsule Take 1 capsule by mouth every afternoon. BELSOMRA 10 mg tab Take 1 tablet by mouth daily at bedtime. TRINTELLIX 20 mg tablet take 1 tablet by mouth once daily AT THE SAME TIME EACH DAY for depression cyanocobalamin (VITAMIN B-12) 1,000 mcg tab take 1 tablet by mouth once daily trimethoprim-polymyxin (POLYTRIM) 10,000 unit- 1 mg/mL ophthalmic solution Use 1 Drop in the left eye three times daily. levothyroxine (SYNTHROID) 100 mcg tablet take 1 tablet by mouth once daily atorvastatin (LIPITOR) 20 mg tablet take 1 tablet by mouth once daily calcitriol (ROCALTROL) 0.5 mcg capsule take 2 capsules by mouth once daily furosemide (LASIX) 20 mg tablet take 1 tablet by mouth twice a day potassium chloride ER (K-DUR, KLOR-CON) 20 mEq tablet take 1 tablet by mouth four times a day magnesium oxide (MAG-OX) 400 mg (241.3 mg magnesium) tablet take 1 tablet by mouth once daily spironolactone (ALDACTONE) 25 mg tablet take 1/2 tablet by mouth once daily cholecalciferol, Vitamin D3, (VITAMIN D3) 1,250 mcg (50,000 unit) cap capsule Take 1 capsule by mouth one time a week. hydrOXYzine pamoate (VISTARIL) 25 mg capsule Take 1 capsule by mouth four times daily as needed for anxiety for up to 30 doses. fluticasone (FLONASE) 50 mcg/actuation nasal spray instill 1 spray into each nostril at bedtime calcium carbonate (CALCIUM ANTACID) 500 mg chew Take 1 tablet by mouth twice daily. ARIPiprazole (ABILIFY) 2 mg tablet Take 10 mg by mouth once daily. cholecalciferol (VITAMIN D-3) 2,000 unit tablet Take 2,000 Units by mouth once daily. zolpidem (AMBIEN) 5 mg tablet Take 5 mg by mouth daily at bedtime. buPROPion XL (WELLBUTRIN XL) 150 mg 24 hr tablet Take 1 tablet by mouth once daily. (Psychiatrist) buPROPion XL (WELLBUTRIN XL) 300 mg 24 hr tablet Take 1 tablet by mouth once daily. ALPRAZolam (XANAX) 0.5 mg tablet Take 1 tablet by mouth daily at bedtime. ramelteon (ROZEREM) 8 mg tablet take 1 tablet by mouth at bedtime if needed sleep (Patient not taking: Reported on 03/24/2024) omeprazole (PRILOSEC) 20 mg capsule take 1 capsule by mouth twice a day (Patient not taking: Reported on 01/24/2024) venlafaxine (EFFEXOR) 75 mg tablet Take 3 tablets by mouth once daily. (Patient not taking: Reported on 03/24/2024) No current facility-administered medications for this visit. ALLERGIES Allergen Reactions Contrast Dye Intolerance Ferrous Gluconate GI Upset Nausea Iodides Intolerance Morphine Rash Ondansetron Other: See Comments Oxycontin [Oxycodon* Rash, Swelling Rash, red and swollen eyes, facial swelling Propranolol Itching PAST SURGICAL HISTORY Procedure Laterality Date CHOLECYSTECTOMY Cholecystectomy DILATION AND CURETTAGE DXAND/THER NON (more content not included)... [facility] 03-24-2024 History of Present illness Narrative FOLLOW UP PODIATRIC OFFICE VISIT Chief Complaint: This 58 year old who presents for left foot pain Patient comes to the clinic today with complaint of left heel pain Has been present x 1 month Patient states the pain is most intense when she gets up from a seated position Current treatment includes advil. Patient is using inserts which does provide some relief. Here to discuss options PAIN EVALUATION 03/24/2024 1103 Pain Level: 4 Pain Location: Foot-Left Description: Stabbing/Not Incision Duration Amount of Time: 7 Duration Units: Months Frequency: Continuous Hemoglobin A1C Date Value Ref Range Status 11/24/2017 5.4 4.3 - 5.6 % Final PCP: No primary care provider on file. 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 Chronic right SI joint pain 07/13/2018 Esophageal reflux 2006 Essential hypertension 11/26/2017 Fracture of right clavicle 11/15/2015 Generalized anxiety disorder 2004 with panic attacks Herpes genitalis Hypoparathyroidism (FORM[facility]LY [facility]) parathyroid implant Left forearm Hypothyroidism 09/30/2018 IFG (impaired fasting glucose) 05/08/2014 Impaired fasting glucose Insomnia 03/16/2013 Iron deficiency anemia Irritable bowel syndrome 1997 diarrhea prone, dairy exacerbates MEN 1 (multiple endocrine neoplasia) (FORMERLY [facility]) Dr Solorzano, [facility] [place] Morbid obesity (FORM[facility]LY [facility]) 2006 s/p sleeve Dr Dale Obstructive sleep apnea fair complaince with CPAP Primary hyperparathyroidism ([facility]) 3 03/09 gland parathyroidectomy Renal insufficiency Sternoclavicular joint subluxation 07/16/2016 Current Outpatient Medications Medication Sig albuterol HFA (PROVENTIL HFA, VENTOLIN HFA) 90 mcg/actuation inhaler inhale 2 puffs by mouth every 4 hours if needed for wheezing benztropine (COGENTIN) 0.5 mg tablet Take 1 tablet by mouth every 12 hours. pantoprazole sodium (PROTONIX ORAL) Take 1 capsule by mouth once daily. VRAYLAR 1.5 mg capsule Take 1 capsule by mouth every afternoon. BELSOMRA 10 mg tab Take 1 tablet by mouth daily at bedtime. TRINTELLIX 20 mg tablet take 1 tablet by mouth once daily AT THE SAME TIME EACH DAY for depression cyanocobalamin (VITAMIN B-12) 1,000 mcg tab take 1 tablet by mouth once daily trimethoprim-polymyxin (POLYTRIM) 10,000 unit- 1 mg/mL ophthalmic solution Use 1 Drop in the left eye three times daily. levothyroxine (SYNTHROID) 100 mcg tablet take 1 tablet by mouth once daily atorvastatin (LIPITOR) 20 mg tablet take 1 tablet by mouth once daily calcitriol (ROCALTROL) 0.5 mcg capsule take 2 capsules by mouth once daily furosemide (LASIX) 20 mg tablet take 1 tablet by mouth twice a day potassium chloride ER (K-DUR, KLOR-CON) 20 mEq tablet take 1 tablet by mouth four times a day magnesium oxide (MAG-OX) 400 mg (241.3 mg magnesium) tablet take 1 tablet by mouth once daily spironolactone (ALDACTONE) 25 mg tablet take 1/2 tablet by mouth once daily cholecalciferol, Vitamin D3, (VITAMIN D3) 1,250 mcg (50,000 unit) cap capsule Take 1 capsule by mouth one time a week. hydrOXYzine pamoate (VISTARIL) 25 mg capsule Take 1 capsule by mouth four times daily as needed for anxiety for up to 30 doses. fluticasone (FLONASE) 50 mcg/actuation nasal spray instill 1 spray into each nostril at bedtime calcium carbonate (CALCIUM ANTACID) 500 mg chew Take 1 tablet by mouth twice daily. ARIPiprazole (ABILIFY) 2 mg tablet Take 10 mg by mouth once daily. cholecalciferol (VITAMIN D-3) 2,000 unit tablet Take 2,000 Units by mouth once daily. zolpidem (AMBIEN) 5 mg tablet Take 5 mg by mouth daily at bedtime. buPROPion XL (WELLBUTRIN XL) 150 mg 24 hr tablet Take 1 tablet by mouth once daily. (Psychiatrist) buPROPion XL (WELLBUTRIN XL) 300 mg 24 hr tablet Take 1 tablet by mouth once daily. ALPRAZolam (XANAX) 0.5 mg tablet Take 1 tablet by mouth daily at bedtime. ramelteon (ROZEREM) 8 mg tablet take 1 tablet by mouth at bedtime if needed sleep (Patient not taking: Reported on 03/24/2024) omeprazole (PRILOSEC) 20 mg capsule take 1 capsule by mouth twice a day (Patient not taking: Reported on 01/24/2024) venlafaxine (EFFEXOR) 75 mg tablet Take 3 tablets by mouth once daily. (Patient not taking: Reported on 03/24/2024) No current facility-administered medications for this visit. ALLERGIES Allergen Reactions Contrast Dye Intolerance Ferrous Gluconate GI Upset Nausea Iodides Intolerance Morphine Rash Ondansetron Other: See Comments Oxycontin [Oxycodon* Rash, Swelling Rash, red and swollen eyes, facial swelling Propranolol Itching PAST SURGICAL HISTORY Procedure Laterality Date CHOLECYSTECTOMY Cholecystectomy DILATION & CURETTAGE DX&/THER NONOBSTETRIC 1991 For excessive menstruation ESOPHAGOGASTRODUODENOSCOPY TRANSORAL DIAGNOSTIC 2006 GASTRIC BYPASS HX 2007 gastric sleeve MENISCAL REPAIR SYS,CD,[id number] Right MYRINGOTOMY ASPIR&/EUSTACHIAN TUBE NFLTJ ANES Myringotomy/tubes PARATHYROID AUTOTRANSPLANTATION ADD-ON 07/27/06 left forearm PARATHYROIDECTOMY/EXPLORATION PARATHYROIDS 12/08/2005 3 3/4 parathyroid glans removed PAST SURGICAL HISTORY OF Left foot fracture repair SEPTOPLASTY/SUBMUCOUS RESECJ W/WO CARTILAGE GRF Septoplasty SURGERY 1 HO 10/2016 clavicle surgery TOTAL ABDOMINAL HYSTERECT W/WO RMVL TUBE OVARY 01/16/09 [facility] Physical Exam: OBJECTIVE: Constitutional: Pt is a well developed 58 year old female who is alert, oriented, cooperative and in no apparent distress. Eyes: Following during examination. No redness or drainage. Respiratory: RR normal and nonlabored. Even breathing. No evidence of distress. Psychology: Patient is engaged during conversation. Normal affect and mood. Does not appear depressed or anxious. NVSI unchanged from previous visit. Dermatological: Nails 1-5 b/l are normal. Webspaces clean and dry 1-4 b/l. Skin appears well hydrated and supple. good color, texture, turgor. No open lesions present. No callosities present. Musculoskeletal/Orthopaedic: Patient has pain to palpation of left plantar medial calcaneal tubercle - tinel Mmt is 5/5 for plantarflexion, dorsiflexion, inversion and eversion ASSESSMENT: (M72.2) Plantar fasciitis (primary encounter diagnosis) PLAN: 1. Initial Office Visit - A thorough review of the patient's PMH and Podiatric physical exam was completed. 2. Patient advised to perform stretching excercises, icing, and to make appropriate shoe gear changes to include wearing athletic-type shoes with supportive insoles. No barefoot walking. Patient also given written instructions on how to correctly perform the stretching of the achilles tendon/calf stretches, and the heel spur/plantar fasciitis regimen. 3. Patient advised to seek wide, deep toe box, accomodative, comfortable, lace-up, athletic/walking type footwear that includes motion control characteristics for support and cushion that need to be worn at all times when weight-bearing. Shoes should be tested for torsional stability as well as proper bending at the toebox rather than at the midfoot. Good quality shoes such as, but not limited to, New Balance or Asics are examples of more proper foot gear. 4. Patient recommended to get powerstep insoles for proper support of the arch in order to alleviate the tension and stress on the plantar fascia associated with normal daily walking. Patient advised that these modalities used in conjunction with stretching and icing are able to alleviate most symptoms from this condition. 5. Xrays ordered 6. If pain fails to improve, consider injection Zulma Sol DPM documented in this encounter [facility] 01-24-2024 Note HNO ID: [id number] Author: PETER SIGALA MD Service: ? 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 I last evaluated her with a virtual visit in August 2022. In terms of her pituitary axis, she has no history of pituitary tumors nor abnormal laboratory studies. I have ordered a prolactin to be drawn today. In terms of her parathyroid axis, in 2005 she had undergone a 3 and half gland parathyroidectomy. She had low PTH values following this. Subsequent forearm autotransplant with cryopreserved material did not take as well. Despite this, with undetectable PTH levels, her calciums have been easy to control. She is currently on 400 mg of calcium carbonate as well as 0.75 of calcitriol and 2000 of vitamin D3. I have laboratory studies from December 01, 2023 that show a calcium of 9.0 with an undetectable PTH. 25-hydroxy vitamin D measures 35.3. Terms of her pancreatic axis, she has had no prior pancreatic surgery. Since 2010 she has been followed for a small enhancing mass in the head of her pancreas. In July [address] scan demonstrated a stable 1.2 cm mass in the head of the pancreas. She has had no history of hormone hypersecretion. Previously, she had some issues with diarrhea but this is resolved since stopping dairy products. She has a panel of pancreatic hormones pending from today. Her major issue has been that of her weight management. In 2006 she underwent a gastric sleeve. She had some temporary weight loss but has subsequently regained weight. Her weight currently measures 314 pounds with a BMI of 49. She has undergone bilateral knee replacements. I am awaiting the results of today's laboratory studies to make my final assessment. Her parathyroid axis continues to be stable and easily controlled. I will refer her back to our bariatric group for ongoing weight management. In any case, I would plan to see her back in the office in 1 years time with an M EN 1 laboratory panel prior to that visit. I appreciate being involved in the care of your patient and please feel free to contact me should you have additional questions. 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 I last evaluated her with a virtual visit in August 2022. In terms of her pituitary axis, she has no history of pituitary tumors nor abnormal laboratory studies. I have ordered a prolactin to be drawn today. In terms of her parathyroid axis, in 2005 she had undergone a 3 and half gland parathyroidectomy. She had low PTH values following this. Subsequent forearm autotransplant with cryopreserved material did not take as well. Despite this, with undetectable PTH levels, her calciums have been easy to control. She is currently on 400 mg of calcium carbonate as well as 0.75 of calcitriol and 2000 of vitamin D3. I have laboratory studies from December 01, 2023 that show a calcium of 9.0 with an undetectable PTH. 25-hydroxy vitamin D measures 35.3. Terms of her pancreatic axis, she has had no prior pancreatic surgery. Since 2010 she has been followed for a small enhancing mass in the head of her pancreas. In July [address] scan demonstrated a stable 1.2 cm mass in the head of the pancreas. She has had no history of hormone hypersecretion. Previously, she had some issues with diarrhea but this is resolved since stopping dairy products. She has a panel of pancreatic hormones pending from today. Her major issue has been that of her weight management. In 2006 she underwent a gastric sleeve. She had some temporary weight loss but has subsequently regained weight. Her weight currently measures 314 pounds with a BMI of 49. She has undergone bilateral knee replacements. I am awaiting the results of today's laboratory studies to make my final assessment. Her parathyroid axis continues to be stable and easily controlled. I will refer her back to our bariatric group for ongoing weight management. In any case, I would plan to see her back in the office in 1 years time with an M EN 1 laboratory panel prior to that visit. I appreciate being involved in the care of your patient and please feel free to contact me should you have additional questions. Sincerely, Peter Sigala MD documented in this encounter [facility] 01-24-2024 Instructions Crystal Caputo OCCA - 01/24/2024 10:55 AM EST Thank you for choosing the [facility] Department of Endocrinology, Diabetes and Metabolism. Did you know that you need to call 48 hours in advance of your scheduled visit, if you are unable to make your appointment? The Endocrinology [facility] Met[facility] thanks you for your commitment, because patients not showing to their appointment results in a lost opportunity for patients to receive [facility] health care at the [facility]. To Cancel an appointment, please choose one of the following: - Call the Appointment Call Center at [phone] - From [employer], Go to Appointments - Cancel Appts If cancelling, consider your need to reschedule to prevent further delays in your care. To Schedule an appointment, please choose one of the following: - Call the Appointment Call Center at [phone] - From [employer], Go to Appointments - Request an Appt documented in this encounter [facility] 08-27-2023 Note HNO ID: [id number] Author: SYED KRUGER APRN.LEHR TENDER Service: ? Author Type: Nurse Practitioner Type: Progress Notes Filed: 08/27/2023 15:58 Note Text: Nontoxic-appearing female presents urgent care chief complaint shortness of breath. Duration of symptoms a week and a half. Associated symptoms shortness of breath and cough. States was seen in the ER twice for this. Yesterday was placed on azithromycin and prednisone. States shortness of breath is getting worse. With presenting symptoms I recommend patient be seen the ED for further evaluation care. Will be reevaluated at [facility]. Denied transport. Syed Kruger APRN.CNP [facility] 08-27-2023 History of Present illness Narrative Nontoxic-appearing female presents urgent care chief complaint shortness of breath. Duration of symptoms a week and a half. Associated symptoms shortness of breath and cough. States was seen in the ER twice for this. Yesterday was placed on azithromycin and prednisone. States shortness of breath is getting worse. With presenting symptoms I recommend patient be seen the ED for further evaluation care. Will be reevaluated at [facility]. Denied transport. Syed Kruger APRN.VANDA documented in this encounter [facility] 07-13-2023 Telephone encounter Note CMP faxed to number below as requested. [facility] 07-13-2023 Miscellaneous Notes CMP faxed to number below as requested. Patient is requesting 07/08/23 CMP lab results to be faxed to the office of Dr. Moses at [phone]. documented in this encounter [facility] 07-13-2023 Telephone encounter Note Patient is requesting 07/08/23 CMP lab results to be faxed to the office of Dr. Moses at [phone]. [facility] 07-08-2023 Zulma Wilson - 07/08/2023 4:12 PM EDT Powerstep Original Full length. Can purchase at [employer] and boots,shoes and more here in [place], [employer] in [place] or [place]. Also can find in [place] in [facility]. Powersteps can also be purchased online, starting around $45.00 If you have a metatarsal or dancer pad for your feet apply the pad directly to the insole so you can interchange between your shoes. Find a shoe with a removable insole and take this out and replace with your powerstep insole. Always bring powersteps with you when shopping for shoes so that you can make sure that everything fits well together documented in this encounter [facility] 07-08-2023 Note HNO ID: [id number] Author: ZULMA SOL, ? Service: ? Author Type: Physician Type: Progress Notes Filed: 07/09/2023 16:35 Note Text: Initial Podiatric Office Visit: Chief Complaint: This 58 year old female who presents with chief complaint:fight foot pain and burning HPI Patient presents to clinic with right foot pain and burning Patient states the pain is mostly along the top midfoot (met cun joint) Patient states the pain is constant. She even has pain at rest. Patient has taken tylenol but that does not help. She has xrays that suggest spur. PAIN EVALUATION 07/01/2023 1043 Pain Level: 8 Pain Location: Foot-Right Description: Aching;Burning;Pulsating;Radiating ;Sharp;Stabbing Duration Units: Hours Frequency: Intermittent Intervention/Comfort measure: Medication Hemoglobin A1C (%) Date Value 11/24/2017 5.4 05/16/2014 5.8 10/22/2007 5.2 TEST PERFORMED AT [facility] PCP: No primary care provider on file. PAST MEDICAL HISTORY Diagnosis Date ADD (attention [...] dairy exacerbates MEN 1 (multiple endocrine neoplasia) (FORMERLY [facility]) Dr Solorzano, [facility] [place] Morbid obesity (FORMERLY [facility]) 2007 s/p sleeve Dr Dale Obstructive sleep apnea fair complaince with CPAP Primary hyperparathyroidism ([facility]LY [facility]) 3 1/2 gland parathyroidectomy Renal insufficiency Sternoclavicular joint subluxation 07/16/2016 Current Outpatient Medications Medication Sig pantoprazole sodium (PROTONIX ORAL) Take by mouth. BELSOMRA 10 mg tab Take 1 tablet by mouth daily at bedtime. TRINTELLIX 20 mg tablet take 1 tablet by mouth once daily AT THE SAME TIME EACH DAY for depression ramelteon (ROZEREM) 8 mg tablet take 1 tablet by mouth at bedtime if needed sleep cyanocobalamin (VITAMIN B-12) 1,000 mcg tab take 1 tablet by mouth once daily trimethoprim-polymyxin (POLYTRIM) 10,000 unit- 1 mg/mL ophthalmic solution Use 1 Drop in the left eye three times daily. levothyroxine (SYNTHROID) 100 mcg tablet take 1 tablet by mouth once daily atorvastatin (LIPITOR) 20 mg tablet take 1 tablet by mouth once daily calcitriol (ROCALTROL) 0.5 mcg capsule take 2 capsules by mouth once daily potassium chloride ER (K-DUR, KLOR-CON) 20 mEq tablet take 1 tablet by mouth four times a day magnesium oxide (MAG-OX) 400 mg (241.3 mg magnesium) tablet take 1 tablet by mouth once daily spironolactone (ALDACTONE) 25 mg tablet take 1/2 tablet by mouth once daily cholecalciferol, Vitamin D3, (VITAMIN D3) 1,250 mcg (50,000 unit) cap capsule Take 1 capsule by mouth one time a week. hydrOXYzine pamoate (VISTARIL) 25 mg capsule Take 1 capsule by mouth four times daily as needed for anxiety for up to 30 doses. fluticasone (FLONASE) 50 mcg/actuation nasal spray instill 1 spray into each nostril at bedtime venlafaxine (EFFEXOR) 75 mg tablet Take 3 tablets by mouth once daily. calcium carbonate (CALCIUM ANTACID) 500 mg chew Take 1 tablet by mouth twice daily. ARIPiprazole (ABILIFY) 2 mg tablet Take 10 mg by mouth once daily. cholecalciferol (VITAMIN D-3) 2,000 unit tablet Take 2,000 Units by mouth once daily. zolpidem (AMBIEN) 5 mg tablet Take 5 mg by mouth daily at bedtime. buPROPion XL (WELLBUTRIN XL) 150 mg 24 hr tablet Take 1 tablet by mouth once daily. (Psychiatrist) buPROPion XL (WELLBUTRIN XL) 300 mg 24 hr tablet Take 1 tablet by mouth once daily. ALPRAZolam (XANAX) 0.5 mg tablet Take 1 tablet by mouth daily at bedtime. VRAYLAR 1.5 mg capsule Take 1 capsule by mouth every afternoon. furosemide (LASIX) 20 mg tablet take 1 tablet by mouth twice a day omeprazole (PRILOSEC) 20 mg capsule take 1 capsule by mouth twice a day No current facility-administered medications for this visit. ALLERGIES Allergen Reactions Contrast Dye Rash Ferrous Gluconate GI Upset Nausea Morphine Rash Ondansetron Other: See Comments Oxycontin [Oxycodon* Rash, Swelling Rash, red and swollen eyes, facial swelling Propranolol Itching PAST SURGICAL HISTORY Procedure Laterality Date CHOLECYSTECTOMY Cholecystectomy DILATION AND CURETTAGE DXAND/THER NONOBSTETRIC 1991 For excessive menstruation ESOPHAGOGASTRODUODENOSCOPY TRANSORAL DIAGNOSTIC 2006 GASTRIC BYPASS HX 2007 gastric sleeve MENISCAL REPAIR SYS,CD,[id number] Right MYRINGOTOMY ASPIRAND/EUSTACHIAN TUBE NFLTJ ANES Myringotomy/tubes PARATHYROID AUTOTRANSPLANTATIO (more content not included)... [facility] 07-08-2023 History of Present illness Narrative Images from the original note were not included. Initial Podiatric Office Visit: Chief Complaint: This 58 year old female who presents with chief complaint:fight foot pain and burning HPI Patient presents to clinic with right foot pain and burning Patient states the pain is mostly along the top midfoot (met cun joint) Patient states the pain is constant. She even has pain at rest. Patient has taken tylenol but that does not help. She has xrays that suggest spur. PAIN EVALUATION 07/01/2023 1043 Pain Level: 8 Pain Location: Foot-Right Description: Aching;Burning;Pulsating;Radiating ;Sharp;Stabbing Duration Units: Hours Frequency: Intermittent Intervention/Comfort measure: Medication Hemoglobin A1C (%) Date Value 11/24/2017 5.4 05/16/2014 5.8 10/22/2007 5.2 TEST PERFORMED AT [facility] PCP: No primary care provider on file. PAST MEDICAL HISTORY Diagnosis Date ADD (attention [...] dairy exacerbates MEN 1 (multiple endocrine neoplasia) (FORMERLY [facility]) Dr Solorzano, [facility] [place] Morbid obesity (FORM[facility]LY [facility]) 2007 s/p sleeve Dr Dale Obstructive sleep apnea [facility] complaince with CPAP Primary hyperparathyroidism ([facility]) 3 03/09 gland parathyroidectomy Renal insufficiency Sternoclavicular joint subluxation 07/16/2016 Current Outpatient Medications Medication Sig pantoprazole sodium (PROTONIX ORAL) Take by mouth. BELSOMRA 10 mg tab Take 1 tablet by mouth daily at bedtime. TRINTELLIX 20 mg tablet take 1 tablet by mouth once daily AT THE SAME TIME EACH DAY for depression ramelteon (ROZEREM) 8 mg tablet take 1 tablet by mouth at bedtime if needed sleep cyanocobalamin (VITAMIN B-12) 1,000 mcg tab take 1 tablet by mouth once daily trimethoprim-polymyxin (POLYTRIM) 10,000 unit- 1 mg/mL ophthalmic solution Use 1 Drop in the left eye three times daily. levothyroxine (SYNTHROID) 100 mcg tablet take 1 tablet by mouth once daily atorvastatin (LIPITOR) 20 mg tablet take 1 tablet by mouth once daily calcitriol (ROCALTROL) 0.5 mcg capsule take 2 capsules by mouth once daily potassium chloride ER (K-DUR, KLOR-CON) 20 mEq tablet take 1 tablet by mouth four times a day magnesium oxide (MAG-OX) 400 mg (241.3 mg magnesium) tablet take 1 tablet by mouth once daily spironolactone (ALDACTONE) 25 mg tablet take 1/2 tablet by mouth once daily cholecalciferol, Vitamin D3, (VITAMIN D3) 1,250 mcg (50,000 unit) cap capsule Take 1 capsule by mouth one time a week. hydrOXYzine pamoate (VISTARIL) 25 mg capsule Take 1 capsule by mouth four times daily as needed for anxiety for up to 30 doses. fluticasone (FLONASE) 50 mcg/actuation nasal spray instill 1 spray into each nostril at bedtime venlafaxine (EFFEXOR) 75 mg tablet Take 3 tablets by mouth once daily. calcium carbonate (CALCIUM ANTACID) 500 mg chew Take 1 tablet by mouth twice daily. ARIPiprazole (ABILIFY) 2 mg tablet Take 10 mg by mouth once daily. cholecalciferol (VITAMIN D-3) 2,000 unit tablet Take 2,000 Units by mouth once daily. zolpidem (AMBIEN) 5 mg tablet Take 5 mg by mouth daily at bedtime. buPROPion XL (WELLBUTRIN XL) 150 mg 24 hr tablet Take 1 tablet by mouth once daily. (Psychiatrist) buPROPion XL (WELLBUTRIN XL) 300 mg 24 hr tablet Take 1 tablet by mouth once daily. ALPRAZolam (XANAX) 0.5 mg tablet Take 1 tablet by mouth daily at bedtime. VRAYLAR 1.5 mg capsule Take 1 capsule by mouth every afternoon. furosemide (LASIX) 20 mg tablet take 1 tablet by mouth twice a day omeprazole (PRILOSEC) 20 mg capsule take 1 capsule by mouth twice a day No current facility-administered medications for this visit. ALLERGIES Allergen Reactions Contrast Dye Rash Ferrous Gluconate GI Upset Nausea Morphine Rash Ondansetron Other: See Comments Oxycontin [Oxycodon* Rash, Swelling Rash, red and swollen eyes, facial swelling Propranolol Itching PAST SURGICAL HISTORY Procedure Laterality Date CHOLECYSTECTOMY Cholecystectomy DILATION & CURETTAGE DX&/THER NONOBSTETRIC 1991 For excessive menstruation ESOPHAGOGASTRODUODENOSCOPY TRANSORAL DIAGNOSTIC 2006 GASTRIC BYPASS HX 2007 gastric sleeve MENISCAL REPAIR SYS,[id number] Right MYRINGOTOMY ASPIR&/EUSTACHIAN TUBE NFLTJ ANES Myringotomy/tubes PARATHYROID AUTOTRANSPLANTATION ADD-ON 07/27/06 left forearm PARATHYROIDECTOMY/EXPLORATION PARATHYROIDS 12/08/2005 3 3/4 parathyroid glans removed PAST SURGICAL HISTORY OF Left foot fracture repair SEPTOPLASTY/SUBMUCOUS RESECJ W/WO CARTILAGE GRF Septoplasty SURGERY 1 HO 10/2016 clavicle surgery TOTAL ABDOMINAL HYSTERECT W/WO RMVL TUBE OVARY 01/16/09 [facility] FAMILY HISTORY Problem Relation Age of Onset Diabetes Mother due to surgery on pancreas Genetic Mother MEN 1 Cancer Mother liver Emphysema Father bacterial pneumonia Heart Maternal Grandmother Cancer Paternal Grandmother uterine cancer Heart Paternal Grandfather Cancer Maternal Aunt lymphoma Cancer Maternal Aunt lymphoma Cancer Maternal Uncle brain Genetic Sister MEN 1 Social History Tobacco Use Smoking status: Never Smokeless tobacco: Never Vaping Use Vaping Use: Never used Substance Use Topics Alcohol use: Yes Comment: occasionally - social Drug use: No Types: Marijuana Comment: last in 2015 REVIEW OF SYSTEMS GENERAL: Negative for Malaise, significant weight loss, fever RESPIRATORY: Negative for cough, wheezing and shortness of breath CARDIOVASCULAR: Negative for chest pain, leg swelling and palpitations GI: Negative for abdominal discomfort, blood in stools or black stools and change in bowel habits : Negative for dysuria, frequency and incontinence MUSCULOSKELETAL: Negative for joint pain or swelling, back pain, and muscle pain. SKIN: Negative for lesions, rash, and itching. HEMATOLOGY/LYMPHOLOGY Negative for prolonged bleeding, bruising easily, and swollen nodes. ENDOCRINE: Negative for cold or heat intolerance, polyuria, polydipsia and goiter. NEURO: negative Physical Exam: Constitutional: Pt is a well developed 58 year old female who is alert, oriented and cooperative Eyes: Following during examination. No redness or drainage. Respiratory: RR normal and nonlabored. Even breathing. No evidence of distress or shortness of breath. Psychology: Patient is engaged during conversation. Normal affect and mood. Does not appear depressed or anxious during encounter. Vascular: Dorsalis pedis and posterior tibial pulses palpable as b/l Capillary Fill time < 5 seconds to digits 1-5 b/l Skin temperature warm to warm proximal to distal b/l Hair growth present to digits Neurological: intact light touch/epicritic sensation b/l intact protective sensation no significant neurological deficits Dermatological: Nails 1-5 b/l appear normal. Webspaces clean and dry 1-4 b/l. Skin appears well hydrated and supple. good color, texture, turgor. No open lesions present. No callosities present. Musculoskeletal/Orthopaedic: Patient has pain to palpation of b/l midfoot Dorsal spurring is present to b/l midfoot Foot type is pronated structurally AJ ROM is full with knee extended and flexed 1st MPJ is decreased when loaded and no pain or crepitus are noted with ROM. MTJ, STJ are full and free of pain and crepitus. +5/5 muscle strength dorsiflexion, plantarflexion, inversion, eversion b/l Radiographs: 3 views right foot reviewed July 08, 2023: I have personally reviewed and interpreted these XR myself: no acute fracture. Plantar heel spur ASSESSMENT: (M19.071) Arthritis of right midfoot (primary encounter diagnosis)\ (M79.671) Foot pain, right PLAN: 1. History and physical examination performed. 2. XR reviewed with patient and interpreted today 3. Discussed pain in right foot. Suspect component of midfoot arthirtis. Recommend she wear a good supportive tennis shoe. In addition, I propose using a powerstep insert. 4. Other options discussed include possible nsaid such as mobic. Will check cmp. Pending blood work, consider mobic 5. If pain fails to improve, consider injection Zulma Sol DPM Podiatry [address] [facility] [address] Dept: [phone] Dept [facility] ROOMING INTAKE FLOWSHEET DATA Pain Pain Level: 8 Pain Location: Foot-Right Description: Aching, Burning, Pulsating, Radiating, Sharp, Stabbing Duration Units: Hours Frequency: Intermittent Intervention/Comfort measure: Medication Patient presents with: Right Foot - New, Pain, Swelling Gabriela Kunz LPN documented in this encounter [facility] 07-08-2023 Note HNO ID: [id number] Author: GABRIELA KUNZ LPN Service: ? Author Type: LICENSED NURSE Type: Progress Notes Filed: 07/09/2023 16:35 Note Text: [facility] ROOMING INTAKE FLOWSHEET DATA Pain Pain Level: 8 Pain Location: Foot-Right Description: Aching, Burning, Pulsating, Radiating, Sharp, Stabbing Duration Units: Hours Frequency: Intermittent Intervention/Comfort measure: Medication Patient presents with: Right Foot - New, Pain, Swelling Gabriela Kunz LPN [facility] 06-24-2023 Miscellaneous Notes Opened in error documented in this encounter [facility] 06-22-2023 History of Present illness Narrative Radiology Service Progress Note PATIENT NAME: Thuy White DATE OF SERVICE: June 22, 2023 TIME: 8:04 AM PATIENT IDENTITY VERIFICATION COMPLETED USING TWO (2) IDENTIFIERS: Name and Date of confirmed by patient verbally. FALL SCREENING: Has the patient had 2 falls in the last year or 1 fall with injury or currently using an Ambulatory Assistive Device (Walker, Cane, Wheelchair, Crutches, etc.)? No PATIENT GENDER DATA: Female. status: : No status: NO. PATIENT RELEVANT IMPLANT DATA REVIEWED: Yes PATIENT PRESENTS WITH AN IMPLANTABLE OR ATTACHED BOOKKEEPING MANAGER: No RADIOLOGY DEPARTMENT: General X-ray: Exam(s) Completed: Lower Extremity X-Ray(s): Foot, Right PERIPHERAL IV DATA: Not applicable SIGNED BY: RT Darline(R) June 22, 2023 8:04 AM documented in this encounter [facility] 06-22-2023 Note HNO ID: [id number] Author: VANDA ZAZUETA RT(Princess) Service: ? Author Type: Leadership Development Consultant Type: Progress Notes Filed: 06/22/2023 08:15 Note Text: Radiology Service Progress Note PATIENT NAME: Thuy White DATE OF SERVICE: June 22, 2023 TIME: 8:04 AM PATIENT IDENTITY VERIFICATION COMPLETED USING TWO (2) IDENTIFIERS: Name and Date of confirmed by patient verbally. FALL SCREENING: Has the patient had 2 falls in the last year or 1 fall with injury or currently using an Ambulatory Assistive Device (Walker, Cane, Wheelchair, Crutches, etc.)? No PATIENT GENDER DATA: Female. status: : No status: NO. PATIENT RELEVANT IMPLANT DATA REVIEWED: Yes PATIENT PRESENTS WITH AN IMPLANTABLE OR ATTACHED BOOKKEEPING MANAGER: No RADIOLOGY DEPARTMENT: General X-ray: Exam(s) Completed: Lower Extremity X-Ray(s): Foot, Right PERIPHERAL IV DATA: Not applicable SIGNED BY: RT Darline(R) June 22, 2023 8:04 AM [facility] 06-22-2023 Note HNO ID: [id number] Author: PRISCA CROOKS PA Service: ? Author Type: Physician Developer Advocate Type: Progress Notes Filed: 06/22/2023 08:37 Note Text: This note was created using [employer]. Subjective Thuy White is a 58 year old female. HPI 58-year-old female presents for right foot pain. Patient states she has been having right foot pain for about a month. Pain is on the medial foot near the arch. Pain is worse with ambulation. She denies any injury that she can recall. She has been taking Advil and Tylenol. She is not a diabetic. No numbness or tingling in the foot. She states occasionally she has a burning pain. No calf pain or swelling. No other complaint. PAST MEDICAL HISTORY Diagnosis Date ADD (attention [...] dairy exacerbates MEN 1 (multiple endocrine neoplasia) ([facility] ([facility]) 2007 s/p sleeve Dr Dale Obstructive sleep apnea fair complaince with CPAP Primary hyperparathyroidism (HCC) 3 1/2 gland parathyroidectomy Renal insufficiency Sternoclavicular joint subluxation 07/16/2016 PAST SURGICAL HISTORY Procedure Laterality Date CHOLECYSTECTOMY Cholecystectomy DILATION AND CURETTAGE DXAND/THER NONOBSTETRIC 1991 For excessive menstruation ESOPHAGOGASTRODUODENOSCOPY TRANSORAL DIAGNOSTIC 2006 GASTRIC BYPASS HX 2007 gastric sleeve MENISCAL REPAIR SYS,[id number] Right MYRINGOTOMY ASPIRAND/EUSTACHIAN TUBE NFLTJ ANES Myringotomy/tubes PARATHYROID AUTOTRANSPLANTATION ADD-ON 07/27/06 left forearm PARATHYROIDECTOMY/EXPLORATION PARATHYROIDS 12/08/2005 3 / parathyroid glans removed PAST SURGICAL HISTORY OF Left foot fracture repair SEPTOPLASTY/SUBMUCOUS RESECJ W/WO CARTILAGE GRF Septoplasty SURGERY 1 HO 10/2016 clavicle surgery TOTAL ABDOMINAL HYSTERECT W/WO RMVL TUBE OVARY 01/16/09 [facility] ALLERGIES Contrast Dye, Ferrous Gluconate, Morphine, Ondansetron, Oxycontin [Oxycodone Hcl], and Propranolol MEDICATIONS BELSOMRA 10 mg tab Take 1 tablet by mouth daily at bedtime. TRINTELLIX 20 mg tablet take 1 tablet by mouth once daily AT THE SAME TIME EACH DAY for depression ramelteon (ROZEREM) 8 mg tablet take 1 tablet by mouth at bedtime if needed sleep cyanocobalamin (VITAMIN B-12) 1,000 mcg tab take 1 tablet by mouth once daily levothyroxine (SYNTHROID) 100 mcg tablet take 1 tablet by mouth once daily atorvastatin (LIPITOR) 20 mg tablet take 1 tablet by mouth once daily calcitriol (ROCALTROL) 0.5 mcg capsule take 2 capsules by mouth once daily furosemide (LASIX) 20 mg tablet take 1 tablet by mouth twice a day potassium chloride ER (K-DUR, KLOR-CON) 20 mEq tablet take 1 tablet by mouth four times a day magnesium oxide (MAG-OX) 400 mg (241.3 mg magnesium) tablet take 1 tablet by mouth once daily cholecalciferol, Vitamin D3, (VITAMIN D3) 1,250 mcg (50,000 unit) cap capsule Take 1 capsule by mouth one time a week. omeprazole (PRILOSEC) 20 mg capsule take 1 capsule by mouth twice a day hydrOXYzine pamoate (VISTARIL) 25 mg capsule Take 1 capsule by mouth four times daily as needed for anxiety for up to 30 doses. fluticasone (FLONASE) 50 mcg/actuation nasal spray instill 1 spray into each nostril at bedtime calcium carbonate (CALCIUM ANTACID) 500 mg chew Take 1 tablet by mouth twice daily. ARIPiprazole (ABILIFY) 2 mg tablet Take 10 mg by mouth once daily. cholecalciferol (VITAMIN D-3) 2,000 unit tablet Take 2,000 Units by mouth once daily. buPROPion XL (WELLBUTRIN XL) 300 mg 24 hr tablet Take 1 tablet by mouth once daily. ALPRAZolam (XANAX) 0.5 mg tablet Take 1 tablet by mouth daily at bedtime. trimethoprim-polymyxin (POLYTRIM) 10,000 unit- 1 mg/mL ophthalmic solution Use 1 Drop in the left eye three times daily. (Patient not taking: Reported on 06/22/2023) spironolactone (ALDACTONE) 25 mg tablet take 1/2 tablet by mouth once daily (Patient not taking: Reported on 06/22/2023) venlafaxine (EFFEXOR) 75 mg tablet Take 3 tablets by mouth once daily. (Patient not taking: Reported on 06/22/2023) zolpidem (AMBIEN) 5 mg tablet Take 5 mg by mouth daily at bedtime. (Patient not taking: Reported on 06/22/2023) buPROPion XL (WELLBUTRIN XL) 150 mg 24 hr tablet Take 1 tablet by mouth once daily. (Psychiatrist) (Patient not taking: Reported on 06/22/2023) FAMILY HISTORY Problem Relation Age of Onset Diabetes Mothe (more content not included)... [facility] 06-22-2023 History of Present illness Narrative Images from the original note were not included. This note was created using [employer]. Subjective Thuy White is a 58 year old female. HPI 58-year-old female presents for right foot pain. Patient states she has been having right foot pain for about a month. Pain is on the medial foot near the arch. Pain is worse with ambulation. She denies any injury that she can recall. She has been taking Advil and Tylenol. She is not a diabetic. No numbness or tingling in the foot. She states occasionally she has a burning pain. No calf pain or swelling. No other complaint. 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 Chronic right SI joint pain 07/13/2018 Esophageal reflux 2006 Essential hypertension 11/26/2017 Fracture of right clavicle 11/15/2015 Generalized anxiety disorder 2004 with panic attacks Herpes genitalis Hypoparathyroidism ([facility]) parathyroid implant Left forearm Hypothyroidism 09/30/2018 IFG (impaired fasting glucose) 05/08/2014 Impaired fasting glucose Insomnia 03/16/2013 Iron deficiency anemia Irritable bowel syndrome 1998 diarrhea prone, dairy exacerbates MEN 1 (multiple endocrine neoplasia) ([facility]LY [facility]) Dr Solorzano [facility] [place] Morbid obesity ([facility]) 2006 s/p sleeve Dr Dale Obstructive sleep apnea fair complaince with CPAP Primary hyperparathyroidism ([facility]) 3 1/2 gland parathyroidectomy Renal insufficiency Sternoclavicular joint subluxation 07/16/2016 PAST SURGICAL HISTORY Procedure Laterality Date CHOLECYSTECTOMY Cholecystectomy DILATION & CURETTAGE DX&/THER NONOBSTETRIC 1991 For excessive menstruation ESOPHAGOGASTRODUODENOSCOPY TRANSORAL DIAGNOSTIC 2006 GASTRIC BYPASS HX 2006 gastric sleeve MENISCAL REPAIR SYS,CD,[id number] Right MYRINGOTOMY ASPIR&/EUSTACHIAN TUBE NFLTJ ANES Myringotomy/tubes PARATHYROID AUTOTRANSPLANTATION ADD-ON 07/27/06 left forearm PARATHYROIDECTOMY/EXPLORATION PARATHYROIDS 12/08/2005 3 3 parathyroid glans removed PAST SURGICAL HISTORY OF Left foot fracture repair SEPTOPLASTY/SUBMUCOUS RESECJ W/WO CARTILAGE GRF Septoplasty SURGERY 1 HO 10/2016 clavicle surgery TOTAL ABDOMINAL HYSTERECT W/WO RMVL TUBE OVARY 01/16/09 [facility] Contrast Dye, Ferrous Gluconate, Morphine, Ondansetron, Oxycontin [Oxycodone Hcl], and Propranolol MEDICATIONS BELSOMRA 10 mg tab Take 1 tablet by mouth daily at bedtime. TRINTELLIX 20 mg tablet take 1 tablet by mouth once daily AT THE SAME TIME EACH DAY for depression ramelteon (ROZEREM) 8 mg tablet take 1 tablet by mouth at bedtime if needed sleep cyanocobalamin (VITAMIN B-12) 1,000 mcg tab take 1 tablet by mouth once daily levothyroxine (SYNTHROID) 100 mcg tablet take 1 tablet by mouth once daily atorvastatin (LIPITOR) 20 mg tablet take 1 tablet by mouth once daily calcitriol (ROCALTROL) 0.5 mcg capsule take 2 capsules by mouth once daily furosemide (LASIX) 20 mg tablet take 1 tablet by mouth twice a day potassium chloride ER (K-DUR, KLOR-CON) 20 mEq tablet take 1 tablet by mouth four times a day magnesium oxide (MAG-OX) 400 mg (241.3 mg magnesium) tablet take 1 tablet by mouth once daily cholecalciferol, Vitamin D3, (VITAMIN D3) 1,250 mcg (50,000 unit) cap capsule Take 1 capsule by mouth one time a week. omeprazole (PRILOSEC) 20 mg capsule take 1 capsule by mouth twice a day hydrOXYzine pamoate (VISTARIL) 25 mg capsule Take 1 capsule by mouth four times daily as needed for anxiety for up to 30 doses. fluticasone (FLONASE) 50 mcg/actuation nasal spray instill 1 spray into each nostril at bedtime calcium carbonate (CALCIUM ANTACID) 500 mg chew Take 1 tablet by mouth twice daily. ARIPiprazole (ABILIFY) 2 mg tablet Take 10 mg by mouth once daily. cholecalciferol (VITAMIN D-3) 2,000 unit tablet Take 2,000 Units by mouth once daily. buPROPion XL (WELLBUTRIN XL) 300 mg 24 hr tablet Take 1 tablet by mouth once daily. ALPRAZolam (XANAX) 0.5 mg tablet Take 1 tablet by mouth daily at bedtime. trimethoprim-polymyxin (POLYTRIM) 10,000 unit- 1 mg/mL ophthalmic solution Use 1 Drop in the left eye three times daily. (Patient not taking: Reported on 06/22/2023) spironolactone (ALDACTONE) 25 mg tablet take 1/2 tablet by mouth once daily (Patient not taking: Reported on 06/22/2023) venlafaxine (EFFEXOR) 75 mg tablet Take 3 tablets by mouth once daily. (Patient not taking: Reported on 06/22/2023) zolpidem (AMBIEN) 5 mg tablet Take 5 mg by mouth daily at bedtime. (Patient not taking: Reported on 06/22/2023) buPROPion XL (WELLBUTRIN XL) 150 mg 24 hr tablet Take 1 tablet by mouth once daily. (Psychiatrist) (Patient not taking: Reported on 06/22/2023) FAMILY HISTORY Problem Relation Age of Onset Diabetes Mother due to surgery on pancreas Genetic Mother MEN 1 Cancer Mother liver Emphysema Father bacterial pneumonia Heart Maternal Grandmother Cancer Paternal Grandmother uterine cancer Heart Paternal Grandfather Cancer Maternal Aunt lymphoma Cancer Maternal Aunt lymphoma Cancer Maternal Uncle brain Genetic Sister MEN 1 Social History Tobacco Use Smoking status: Never Smokeless tobacco: Never Vaping Use Vaping Use: Never used Substance Use Topics Alcohol use: Yes Comment: occasionally - social Drug use: No Types: Marijuana Comment: last in 2015 Review of Systems Constitutional: Negative for chills and fever. HENT: Negative for congestion, ear pain and sore throat. Respiratory: Negative for cough and shortness of breath. Cardiovascular: Negative for chest pain. Gastrointestinal: Negative for diarrhea and vomiting. Musculoskeletal: Positive for arthralgias (R foot pain). Objective BP 118/76 Pulse 91 Temp 36.2 C (97.2 F) (Tympanic) Resp 18 Wt (!) 144.3 kg (318 lb 2 oz) LMP 02/01/2007 SpO2 96% BMI 49.83 kg/m Physical Exam Vitals and nursing note reviewed. Constitutional: General: She is not in acute distress. Appearance: Normal appearance. She is not toxic-appearing. HENT: Nose: Nose normal. Mouth/Throat: Mouth: Mucous membranes are moist. Eyes: Conjunctiva/sclera: Conjunctivae normal. Cardiovascular: Rate and Rhythm: Normal rate and regular rhythm. Pulmonary: Effort: Pulmonary effort is normal. Breath sounds: Normal breath sounds. Musculoskeletal: Right foot: Bony tenderness present. Legs: Comments: Tenderness over dorsum of right foot over the first metatarsal. Mild tenderness over the arch of the foot. No plantar tenderness. DP and PT pulses 2+. Cap refill less than 2 seconds. Normal sensation all digits right foot. Nontender ankle. No obvious swelling or deformity. Skin: General: Skin is warm and dry. Neurological: Mental Status: She is alert. Assessment and Plan ASSESSMENT/PLAN: 1. Foot pain, right - ICD9: 729.5, ICD10: M79.671 - XR FOOT GENERAL 3V AP/LAT/OBL RIGHT-stable vertical oblique lucency fifth metatarsal shaft and back to 2020 favoring nutrient channel and absence of history of point tenderness in this region. -Patient states she did injure her foot in the past. She has no tenderness over the fifth metatarsal, tenderness is over the first. -Recommend follow-up with podiatry. Postop shoe from back office supply applied. - CONSULT TO PODIATRY Diagnosis and treatment plan were discussed and questions were answered to the patient's satisfaction. Pt acknowledged understanding of concepts and follow up plan. Specific signs and symptoms that would indicate the need for higher level of care were discussed in detail warranting prompt ER evaluation. JANES Fitch documented in this encounter [facility] 05-31-2023 Miscellaneous Notes Unable to contact patient. Phone number no longer in service. Patients last office visit with Dr Solorzano was June 2020. Patient was last seen by Dr Sigala in August 2022. Mailed letter to call and schedule a follow up with Dr Sigala or establish care with new Endo provider. Sent [employer] message to schedule a follow up appointment Requester: Pharmacy Last Visit in Endocrinology: Provider name: Grayson Solorzano MD , Date 06/21/2020 Next Scheduled Appt in Endo: Visit date not found Last Refill: 05/29/2022 Number of Refills given: 3 PSS NOTE: Patient needs scheduled appointment. Overdue for 1 year f/u Requested Prescriptions Pending Prescriptions Disp Refills levothyroxine (SYNTHROID) 100 mcg tablet [Pharmacy Med Name: LEVOTHYROXINE 100 MCG TABLET] 90 tablet 3 Sig: take 1 tablet by mouth once daily atorvastatin (LIPITOR) 20 mg tablet [Pharmacy Med Name: ATORVASTATIN 20 MG TABLET] 90 tablet 3 Sig: take 1 tablet by mouth once daily Please review and advise. Maddi Phelps MA documented in this encounter [facility] 10-09-2022 Instructions Nallely Garcia APRN.VANDA - 10/09/2022 10:06 AM EDT Cool compresses [...] inability to swallow. documented in this encounter [facility] 10-09-2022 History of Present illness Narrative Subjective The history is provided by the patient. No medical physiologist was used. 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 MICK Garcia documented in this encounter [facility] 08-26-2022 History of Present illness Narrative This office note has been dictated. Peter Sigala MD I have communicated my name and active licensure. The patient's identity and physical location were verified at the time of this visit. Either the patient or their legal direct customer service representative has been informed of the risks and benefits of -- and alternatives to -- treatment through a remote evaluation and consents to proceed with the evaluation remotely. documented in this encounter [facility] 07-17-2022 History of Present illness Narrative [...] TIME: 2:27 PM documented in this encounter [facility] 02-11-2022 Miscellaneous Notes Called patient to schedule-no answer. Left voicemail notifying patient she needs an appt prior to additional refills. Please verify PCP and assist in scheduling when she calls back. Linh Saini Please clarify PCP and schedule accordingly. Last appointment: 12/18/20 Next appointment: None Pharmacy verified in [facility]. Refill(s) requested: Requested Prescriptions Pending Prescriptions Disp Refills omeprazole (PRILOSEC) 20 mg capsule 180 capsule 3 Sig: Take 1 capsule by mouth twice daily. Order(s) pended. Please advise. Holly Jarrett LPN, CMA documented in this encounter [facility] 12-08-2021 Miscellaneous Notes noted Patient no longer under Dr. Salomon care. Please have patient contact current PCP. Thanks, Yaneth Syed APRN.LEHR TENDER Pharmacy verified in [facility] [place] Patient has been identified by name and [...] Maddi Phelps MA documented in this encounter [facility] 10-31-2021 Miscellaneous Notes Called to notify patient Rx was sent. Rx sent in for doxapin. Thanks, Bret Salomon MD Patient is in the process of establishing with new PCP nearer her home. Is not able to establishing with new PCP until December (first available). Will be running out of various medication and will send a [employer] message with needed medications. Medication below was [...] been out for three days. Prescribed by [facility] through [facility] that prescribed them advised that she has to get medication from PCP. 2. REFILLS REMAINING: None Last filled on September 24 at [facility] 3. EXPIRATION DATE: 4. PRESCRIBING HCP: Psychiatrist 5. SYMPTOMS: Difficulty sleeping without it. Protocols used: Medication Refill and Renewal [id number] documented in this encounter [facility] 10-07-2021 Miscellaneous Notes Spoke with patient and tried to schedule a follow up appt. Patient stated that she is looking into a new PCP in the [place] area closer to home. Patient denied scheduling and will be scheduling with new pcp. Patient due for follow up, please assist in scheduling. Yaneth Syed APRN.VANDA Pharmacy verified in [facility] [place] Patient has been identified by name and [...] Marivel Mackay Ma documented in this encounter [facility] 09-01-2021 Miscellaneous Notes Pharmacy verified in [place] Patient has been identified by name and [...] lb) Please advise. documented in this encounter [facility] 06-20-2021 Miscellaneous Notes Last appointment: 12/18/20 Next appointment: n/a Pharmacy verified in [facility] [place]. Refill(s) requested: Pending Prescriptions Disp Refills MAGNESIUM OXIDE 400 MG (241.3 MG MAGNESIUM) TABLET 90 tablet 0 Sig: take 1 tablet by mouth once daily LITZY: Yes Order(s) pended. Please advise. Mar Pittman LPN documented in this encounter [facility] 06-02-2021 Miscellaneous Notes Last appointment: 12-18-20 Next appointment: na Pharmacy verified in [place] [facility] [place]. Refill(s) requested: Pending Prescriptions Disp Refills SPIRONOLACTONE 25 MG TABLET 15 tablet 1 Sig: take 1/2 tablet by mouth once daily LITZY: Yes Order(s) pended. Please advise. Amanda Perez MA, MOBILITY ARCHITECT 22 documented in this encounter [facility] 06-21-2020 History of Present illness Narrative Radiology Service Progress Note PATIENT NAME: Thuy White DATE OF SERVICE: June 21, 2020 TIME: 2:07 PM PATIENT IDENTITY VERIFICATION COMPLETED USING TWO (2) IDENTIFIERS: Name and Date of confirmed by patient verbally. FALL SCREENING: Has the patient had 2 falls in the last year or 1 fall with injury or currently using an Ambulatory Assistive Device (Walker, Cane, Wheelchair, Crutches, etc.)? No PATIENT GENDER DATA: Female. status: : No status: NO. PATIENT RELEVANT IMPLANT DATA REVIEWED: Not Applicable RADIOLOGY DEPARTMENT: General X-ray: Exam(s) Completed: Lower Extremity X-Ray(s): Ankle, Right and Foot, Right: PERIPHERAL IV DATA: Not applicable SIGNED BY: RT Galindo June 21, 2020 2:07 PM documented in this encounter [facility] 07-13-2018 History of Past i llness Narrative Problem Noted Date Resolved Date Chronic right SI joint pain 07/13/201810/2018 Subluxation of right sternoclavicular joint 11/201611/28/2017 Sternoclavicular joint subluxation 07/16/2016 10/01/2016 Fracture of right clavicle 11/15/201510/01 Hypocalcemia 12/19/2014 10/01/2016 Overview: Ca 6.1 and Ionized Ca of 1. Replaced with 2 gram CaGluc in ER and repeated on the floor at 10PM. Consult Dr Solorzano IFG (impaired fasting glucose) 05/08/2014 0 10/03/2016 [...] of this encounter (statuses as of 06/02/2021) [facility] History of Past illness Narrative* Problem Noted Date Resolved Date Chronic right SI joint pain 07/13/201810/2018 Subluxation of right sternoclavicular joint 11/201611/28/2017 Sternoclavicular joint subluxation 07/16/2016 10/01/2016 Fracture of right clavicle 11/15/201510/01 Hypocalcemia 12/19/2014 10/01/2016 Overview: Ca 6.1 and Ionized Ca of 1. Replaced with 2 gram CaGluc in ER and repeated on the floor at 10PM. Consult Dr Solorzano IFG (impaired fasting glucose) 05/08/2014 0 10/03/2016 [...] of this encounter (statuses as of 06/20/2021) [facility] History of Past illness Narrative* Problem Noted Date Resolved Date Chronic right SI joint pain 07/13/201810/2018 Subluxation of right sternoclavicular joint 11/201611/28/2017 Sternoclavicular joint subluxation 07/16/2016 10/01/2016 Fracture of right clavicle 11/15/201510/01 Hypocalcemia 12/19/2014 10/01/2016 Overview: Ca 6.1 and Ionized Ca of 1. Replaced with 2 gram CaGluc in ER and repeated on the floor at 10PM. Consult Dr Solorzano IFG (impaired fasting glucose) 05/08/2014 0 10/03/2016 [...] of this encounter (statuses as of 08/05/2021) [facility] History of Past illness Narrative* Problem Noted Date Resolved Date Chronic right SI joint pain 07/13/201810/2018 Subluxation of right sternoclavicular joint 11/201611/28/2017 Sternoclavicular joint subluxation 07/16/2016 10/01/2016 Fracture of right clavicle 11/15/201510/01 Hypocalcemia 12/19/2014 10/01/2016 Overview: Ca 6.1 and Ionized Ca of 1. Replaced with 2 gram CaGluc in ER and repeated on the floor at 10PM. Consult Dr Solorzano IFG (impaired fasting glucose) 05/08/2014 0 10/03/2016 [...] of this encounter (statuses as of 09/01/2021) [facility] of Past illness Narrative* Problem Noted Date Resolved Date Chronic right SI joint pain 07/13/201810/2018 Subluxation of right sternoclavicular joint 11/201611/28/2017 Sternoclavicular joint subluxation 07/16/2016 10/01/2016 Fracture of right clavicle 11/15/201510/01 Hypocalcemia 12/19/2014 10/01/2016 Overview: Ca 6.1 and Ionized Ca of 1. Replaced with 2 gram CaGluc in ER and repeated on the floor at 10PM. Consult Dr Solorzano IFG (impaired fasting glucose) 05/08/2014 0 10/03/2016 [...] of this encounter (statuses as of 09/08/2021) [facility] Narrative* Problem Noted Date Resolved Date Chronic right SI joint pain 07/13/201810/2018 Subluxation of right sternoclavicular joint 11/201611/28/2017 Sternoclavicular joint subluxation 07/16/2016 10/01/2016 Fracture of right clavicle 11/15/201510/01 Hypocalcemia 12/19/2014 10/01/2016 Overview: Ca 6.1 and Ionized Ca of 1. Replaced with 2 gram CaGluc in ER and repeated on the floor at 10PM. Consult Dr Solorzano IFG (impaired fasting glucose) 05/08/2014 0 10/03/2016 [...] of this encounter (statuses as of 10/07/2021) [facility] Narrative* Problem Noted Date Resolved Date Chronic right SI joint pain 07/13/201810/2018 Subluxation of right sternoclavicular joint 11/201611/28/2017 Sternoclavicular joint subluxation 07/16/2016 10/01/2016 Fracture of right clavicle 11/15/201510/01 Hypocalcemia 12/19/2014 10/01/2016 Overview: Ca 6.1 and Ionized Ca of 1. Replaced with 2 gram CaGluc in ER and repeated on the floor at 10PM. Consult Dr Solorzano IFG (impaired fasting glucose) 05/08/2014 0 10/03/2016 [...] of this encounter (statuses as of 10/31/2021) [facility] Narrative* Problem Noted Date Resolved Date Chronic right SI joint pain 07/13/201810/2018 Subluxation of right sternoclavicular joint 11/201611/28/2017 Sternoclavicular joint subluxation 07/16/2016 10/01/2016 Fracture of right clavicle 11/15/201510/01 Hypocalcemia 12/19/2014 10/01/2016 Overview: Ca 6.1 and Ionized Ca of 1. Replaced with 2 gram CaGluc in ER and repeated on the floor at 10PM. Consult Dr Solorzano IFG (impaired fasting glucose) 05/08/2014 0 10/03/2016 [...] of this encounter (statuses as of 12/08/2021) [facility] Narrative* Problem Noted Date Resolved Date Chronic right SI joint pain 07/13/201810/2018 Subluxation of right sternoclavicular joint 11/201611/28/2017 Sternoclavicular joint subluxation 07/16/2016 10/01/2016 Fracture of right clavicle 11/15/201510/01 Hypocalcemia 12/19/2014 10/01/2016 Overview: Ca 6.1 and Ionized Ca of 1. Replaced with 2 gram CaGluc in ER and repeated on the floor at 10PM. Consult Dr Solorzano IFG (impaired fasting glucose) 05/08/2014 0 10/03/2016 [...] of this encounter (statuses as of 02/24/2022) [facility] Narrative* Problem Noted Date Resolved Date Chronic right SI joint pain 07/13/201810/2018 Subluxation of right sternoclavicular joint 11/201611/28/2017 Sternoclavicular joint subluxation 07/16/2016 10/01/2016 Fracture of right clavicle 11/15/201510/01 Hypocalcemia 12/19/2014 10/01/2016 Overview: Ca 6.1 and Ionized Ca of 1. Replaced with 2 gram CaGluc in ER and repeated on the floor at 10PM. Consult Dr Solorzano IFG (impaired fasting glucose) 05/08/2014 0 10/03/2016 [...] of this encounter (statuses as of 05/22/2022) [facility] Narrative* Problem Noted Date Resolved Date Chronic right SI joint pain 07/13/201810/2018 Subluxation of right sternoclavicular joint 11/201611/28/2017 Sternoclavicular joint subluxation 07/16/2016 10/01/2016 Fracture of right clavicle 11/15/201510/01 Hypocalcemia 12/19/2014 10/01/2016 Overview: Ca 6.1 and Ionized Ca of 1. Replaced with 2 gram CaGluc in ER and repeated on the floor at 10PM. Consult Dr Solorzano IFG (impaired fasting glucose) 05/08/2014 0 10/03/2016 [...] of this encounter (statuses as of 06/11/2022) [facility] Narrative* Problem Noted Date Resolved Date Chronic right SI joint pain 07/13/201810/2018 Subluxation of right sternoclavicular joint 11/201611/28/2017 Sternoclavicular joint subluxation 07/16/2016 10/01/2016 Fracture of right clavicle 11/15/201510/01 Hypocalcemia 12/19/2014 10/01/2016 Overview: Ca 6.1 and Ionized Ca of 1. Replaced with 2 gram CaGluc in ER and repeated on the floor at 10PM. Consult Dr Solorzano IFG (impaired fasting glucose) 05/08/2014 0 10/03/2016 [...] of this encounter (statuses as of 07/01/2022) [facility] Narrative* Problem Noted Date Resolved Date Chronic right SI joint pain 07/13/201810/2018 Subluxation of right sternoclavicular joint 11/201611/28/2017 Sternoclavicular joint subluxation 07/16/2016 10/01/2016 Fracture of right clavicle 11/15/201510/01 Hypocalcemia 12/19/2014 10/01/2016 Overview: Ca 6.1 and Ionized Ca of 1. Replaced with 2 gram CaGluc in ER and repeated on the floor at 10PM. Consult Dr Solorzano IFG (impaired fasting glucose) 05/08/2014 0 10/03/2016 [...] of this encounter (statuses as of 08/26/2022) [facility] Narrative* [...] on the floor at 10PM. Consult Dr Solorzano IFG (impaired fasting glucose) 05/08/2014 10/03/2016 Other [...] of this encounter (statuses as of 10/09/2022) [facility] Narrative* [...] on the floor at 10PM. Consult Dr Solorzano IFG (impaired fasting glucose) 05/08/2014 10/03/2016 Other [...] of this encounter (statuses as of 10/22/2022) [facility] Narrative* [...] on the floor at 10PM. Consult Dr Solorzano IFG (impaired fasting glucose) 05/08/2014 10/03/2016 Other [...] of this encounter (statuses as of 01/10/2023) [facility] Narrative* [...] on the floor at 10PM. Consult Dr Solorzano IFG (impaired fasting glucose) 05/08/2014 10/03/2016 Other [...] as of this encounter (statuses as of 06/01/2023) [facility] Narrative* [...] on the floor at 10PM. Consult Dr Solorzano IFG (impaired fasting glucose) 05/08/2014 10/03/2016 Other [...] as of this encounter (statuses as of 06/22/2023) [facility] Narrative* [...] on the floor at 10PM. Consult Dr Solorzano IFG (impaired fasting glucose) 05/08/2014 10/03/2016 Other [...] as of this encounter (statuses as of 06/24/2023) [facility] Diagnosis Hypokalemia Hypopotassemia Swelling Edema [facility] Diagnosis Hypokalemia Hypopotassemia Swelling Edema [facility] Diagnosis Hypokalemia Hypopotassemia documented [facility]* Diagnosis Encounter for screening mammogram for breast cancer documented [facility]* Diagnosis Leg swelling Swelling of limb documented [facility]* Diagnosis Essential hypertension Unspecified essential hypertension documented in this encounter [facility] note* Diagnosis Postsurgical hypoparathyroidism (HCC) Hypoparathyroidism documented [facility]* Diagnosis 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 documented [facility]* Diagnosis 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 Obesity, Class III, BMI 40-49.9 (morbid obesity) (HCC) Morbid obesity documented [facility]* Diagnosis URI with cough and congestion- Primary Acute conjunctivitis of left eye, unspecified acute conjunctivitis type documented in this encounter [facility] note* Diagnosis 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 Hyperparathyroidism (HCC) Hyperparathyroidism, unspecified [facility]* Diagnosis Malignant neoplasm of head of pancreas (HCC) Malignant neoplasm of head of pancreas documented [facility]* Diagnosis Acquired hypothyroidism Unspecified hypothyroidism Mixed hyperlipidemia documented [facility]* Diagnosis Foot pain, right- Primary Pain in limb documented in this encounter [facility] note* Diagnosis Arthritis of right midfoot- Primary Foot pain, right Pain in limb Right foot pain Pain in limb documented [facility]* Diagnosis Procedure not carried out- Primary Procedure not carried out for other reasons [facility] Diagnosis Leg edema- Primary Edema MEN (multiple endocrine neoplasia) (HCC) Polyglandular dysfunction, unspecified CKD (chronic kidney disease) stage 3, GFR 30-59 ml/min (HCC) Chronic kidney disease, Stage III (moderate) Hypokalemia Hypopotassemia Elevated brain natriuretic peptide (BNP) level Other nonspecific findings on examination of blood Elevated BUN Other abnormal blood chemistry Elevated serum creatinine Other nonspecific findings on examination of blood Anemia, unspecified type Postsurgical hypoparathyroidism (HCC) Hypoparathyroidism CHRISTIE (generalized anxiety disorder) Generalized anxiety disorder PTSD (post-traumatic stress disorder) Posttraumatic stress disorder Depression Depressive disorder, not elsewhere classified ADHD (attention deficit hyperactivity disorder) Attention deficit disorder with hyperactivity BASIL (obstructive sleep apnea) Obstructive sleep apnea (adult) (pediatric) Pre-operative examination- Primary Preoperative examination, unspecified Colon cancer screening Special screening for malignant neoplasms, colon Gastroesophageal reflux disease, esophagitis presence not specified Essential hypertension Unspecified essential hypertension Mixed hyperlipidemia BASIL (obstructive sleep apnea) Obstructive sleep apnea (adult) (pediatric) Vitamin B12 deficiency Other B-complex deficiencies Gastric bypass status for obesity Bariatric surgery status Pancreatic mass Unspecified disease of pancreas CKD (chronic kidney disease) stage 3, GFR 30-59 ml/min (HCC) Chronic kidney disease, Stage III (moderate) MEN1 (multiple endocrine neoplasia) (FORM[facility]LY [facility]) 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 Postsurgical hypoparathyroidism (HCC) Hypoparathyroidism Acquired hypothyroidism Unspecified hypothyroidism Iron deficiency anemia, unspecified iron deficiency anemia type DDD (degenerative disc disease), lumbar Degeneration of lumbar or lumbosacral intervertebral disc Bilateral leg edema Edema Recurrent major depressive disorder, in full remission (FORM[facility]LY [facility]) CHRISTIE (generalized anxiety disorder) Generalized anxiety disorder Attention deficit hyperactivity disorder (ADHD), predominantly hyperactive type PTSD (post-traumatic stress disorder) Posttraumatic stress disorder Obesity, Class III, BMI >= 40 Morbid obesity Foot pain, right [facility] in [facility]- Primary Edema MEN (multiple endocrine neoplasia) (FORM[facility]LY [facility]) Polyglandular dysfunction, unspecified CKD (chronic kidney disease) stage 3, GFR 30-59 ml/min (HCC) Chronic kidney disease, Stage III (moderate) Hypokalemia Hypopotassemia Elevated brain natriuretic peptide (BNP) level Other nonspecific findings on examination of blood Elevated BUN Other abnormal blood chemistry Elevated serum creatinine Other nonspecific findings on examination of blood Anemia, unspecified type 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 Postsurgical hypoparathyroidism (HCC) Hypoparathyroidism CHRISTIE (generalized anxiety disorder) Generalized anxiety disorder CKD (chronic kidney disease) stage 3, GFR 30-59 ml/min (HCC) Chronic kidney disease, Stage III (moderate) PTSD (post-traumatic stress disorder) Posttraumatic stress disorder Depression Depressive disorder, not elsewhere classified ADHD (attention deficit hyperactivity disorder) Attention deficit disorder with hyperactivity BASIL (obstructive sleep apnea) Obstructive sleep apnea (adult) (pediatric) Pre-operative examination- Primary Preoperative examination, unspecified Colon cancer screening Special screening for malignant neoplasms, colon Gastroesophageal reflux disease, esophagitis presence not specified Essential hypertension Unspecified essential hypertension Mixed hyperlipidemia BASIL (obstructive sleep apnea) Obstructive sleep apnea (adult) (pediatric) Vitamin B12 deficiency Other B-complex deficiencies Gastric bypass status for obesity Bariatric surgery status Pancreatic mass Unspecified disease of pancreas CKD (chronic kidney disease) stage 3, GFR 30-59 ml/min ([facility]) Chronic kidney disease, Stage III (moderate) MEN1 (multiple endocrine neoplasia) ([facility]LY [facility]) 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 Postsurgical hypoparathyroidism ([facility]) Hypoparathyroidism Acquired hypothyroidism Unspecified hypothyroidism Iron deficiency anemia, unspecified iron deficiency anemia type DDD (degenerative disc disease), lumbar Degeneration of lumbar or lumbosacral intervertebral disc Bilateral leg edema Edema Recurrent major depressive disorder, in full remission ([facility]) CHRISTIE (generalized anxiety disorder) Generalized anxiety disorder Attention deficit hyperactivity disorder (ADHD), predominantly hyperactive type PTSD (post-traumatic stress disorder) Posttraumatic stress disorder Obesity, Class III, BMI >= 40 Morbid obesity Pain in joint involving right ankle and foot [facility]- Primary Edema MEN (multiple endocrine neoplasia) ([facility]) Polyglandular dysfunction, unspecified CKD (chronic kidney disease) stage 3, GFR 30-59 ml/min ([facility]) Chronic kidney disease, Stage III (moderate) Hypokalemia Hypopotassemia Elevated brain natriuretic peptide (BNP) level Other nonspecific findings on examination of blood Elevated BUN Other abnormal blood chemistry Elevated serum creatinine Other nonspecific findings on examination of blood Anemia, unspecified type Postsurgical hypoparathyroidism (HCC) Hypoparathyroidism CHRISTIE (generalized anxiety disorder) Generalized anxiety disorder PTSD (post-traumatic stress disorder) Posttraumatic stress disorder Depression Depressive disorder, not elsewhere classified ADHD (attention deficit hyperactivity disorder) Attention deficit disorder with hyperactivity BASIL (obstructive sleep apnea) Obstructive sleep apnea (adult) (pediatric) Pre-operative examination- Primary Preoperative examination, unspecified Colon cancer screening Special screening for malignant neoplasms, colon Gastroesophageal reflux disease, esophagitis presence not specified Essential hypertension Unspecified essential hypertension Mixed hyperlipidemia BASIL (obstructive sleep apnea) Obstructive sleep apnea (adult) (pediatric) Vitamin B12 deficiency Other B-complex deficiencies Gastric bypass status for obesity Bariatric surgery status Pancreatic mass Unspecified disease of pancreas CKD (chronic kidney disease) stage 3, GFR 30-59 ml/min (HCC) Chronic kidney disease, Stage III (moderate) 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 Postsurgical hypoparathyroidism (HCC) Hypoparathyroidism Acquired hypothyroidism Unspecified hypothyroidism Iron deficiency anemia, unspecified iron deficiency anemia type DDD (degenerative disc disease), lumbar Degeneration of lumbar or lumbosacral intervertebral disc Bilateral leg edema Edema Recurrent major depressive disorder, in full remission (HCC) CHRISTIE (generalized anxiety disorder) Generalized anxiety disorder Attention deficit hyperactivity disorder (ADHD), predominantly hyperactive type PTSD (post-traumatic stress disorder) Posttraumatic stress disorder Obesity, Class III, BMI >= 40 Morbid obesity MEN1 (multiple endocrine neoplasia) ([facility])- Primary 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 documented in this encounter [facility]* Diagnosis Leg edema- Primary Edema MEN (multiple endocrine neoplasia) ([facility]) Polyglandular dysfunction, unspecified CKD (chronic kidney disease) stage 3, GFR 30-59 ml/min (HCC) Chronic kidney disease, Stage III (moderate) Hypokalemia Hypopotassemia Elevated brain natriuretic peptide (BNP) level Other nonspecific findings on examination of blood Elevated BUN Other abnormal blood chemistry Elevated serum creatinine Other nonspecific findings on examination of blood Anemia, unspecified type Postsurgical hypoparathyroidism (HCC) Hypoparathyroidism CHRISTIE (generalized anxiety disorder) Generalized anxiety disorder PTSD (post-traumatic stress disorder) Posttraumatic stress disorder Depression Depressive disorder, not elsewhere classified ADHD (attention deficit hyperactivity disorder) Attention deficit disorder with hyperactivity BASIL (obstructive sleep apnea) Obstructive sleep apnea (adult) (pediatric) Pre-operative examination- Primary Preoperative examination, unspecified Colon cancer screening Special screening for malignant neoplasms, colon Gastroesophageal reflux disease, esophagitis presence not specified Essential hypertension Unspecified essential hypertension Mixed hyperlipidemia BASIL (obstructive sleep apnea) Obstructive sleep apnea (adult) (pediatric) Vitamin B12 deficiency Other B-complex deficiencies Gastric bypass status for obesity Bariatric surgery status Pancreatic mass Unspecified disease of pancreas CKD (chronic kidney disease) stage 3, GFR 30-59 ml/min (HCC) Chronic kidney disease, Stage III (moderate) 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 Postsurgical hypoparathyroidism (HCC) Hypoparathyroidism Acquired hypothyroidism Unspecified hypothyroidism Iron deficiency anemia, unspecified iron deficiency anemia type DDD (degenerative disc disease), lumbar Degeneration of lumbar or lumbosacral intervertebral disc Bilateral leg edema Edema Recurrent major depressive disorder, in full remission (HCC) CHRISTIE (generalized anxiety disorder) Generalized anxiety disorder Attention deficit hyperactivity disorder (ADHD), predominantly hyperactive type PTSD (post-traumatic stress disorder) Posttraumatic stress disorder Obesity, Class III, BMI >= 40 Morbid obesity MEN1 (multiple endocrine neoplasia) ([facility])- Primary 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 Hyperparathyroidism ([facility]) Hyperparathyroidism, unspecified documented in this encounter [facility]* Diagnosis Leg edema- Primary Edema MEN (multiple endocrine neoplasia) ([facility]) Polyglandular dysfunction, unspecified CKD (chronic kidney disease) stage 3, GFR 30-59 ml/min ([facility]) Chronic kidney disease, Stage III (moderate) Hypokalemia Hypopotassemia Elevated brain natriuretic peptide (BNP) level Other nonspecific findings on examination of blood Elevated BUN Other abnormal blood chemistry Elevated serum creatinine Other nonspecific findings on examination of blood Anemia, unspecified type Postsurgical hypoparathyroidism ([facility]) Hypoparathyroidism CHRISTIE (generalized anxiety disorder) Generalized anxiety disorder PTSD (post-traumatic stress disorder) Posttraumatic stress disorder Depression Depressive disorder, not elsewhere classified ADHD (attention deficit hyperactivity disorder) Attention deficit disorder with hyperactivity BASIL (obstructive sleep apnea) Obstructive sleep apnea (adult) (pediatric) Pre-operative examination- Primary Preoperative examination, unspecified Colon cancer screening Special screening for malignant neoplasms, colon Gastroesophageal reflux disease, esophagitis presence not specified Essential hypertension Unspecified essential hypertension Mixed hyperlipidemia BASIL (obstructive sleep apnea) Obstructive sleep apnea (adult) (pediatric) Vitamin B12 deficiency Other B-complex deficiencies Gastric bypass status for obesity Bariatric surgery status Pancreatic mass Unspecified disease of pancreas CKD (chronic kidney disease) stage 3, GFR 30-59 ml/min ([facility]) Chronic kidney disease, Stage III (moderate) MEN1 (multiple endocrine neoplasia) ([facility]) 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 Postsurgical hypoparathyroidism ([facility]) Hypoparathyroidism Acquired hypothyroidism Unspecified hypothyroidism Iron deficiency anemia, unspecified iron deficiency anemia type DDD (degenerative disc disease), lumbar Degeneration of lumbar or lumbosacral intervertebral disc Bilateral leg edema Edema Recurrent major depressive disorder, in full remission (HCC) CHRISTIE (generalized anxiety disorder) Generalized anxiety disorder Attention deficit hyperactivity disorder (ADHD), predominantly hyperactive type PTSD (post-traumatic stress disorder) Posttraumatic stress disorder Obesity, Class III, BMI >= 40 Morbid obesity MEN1 (multiple endocrine neoplasia) ([facility])- Primary 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 Obesity, Class III, BMI 40-49.9 (morbid obesity) ([facility]) Morbid obesity documented in this encounter [facility] note* Diagnosis Leg edema- Primary Edema MEN (multiple endocrine neoplasia) ([facility]) Polyglandular dysfunction, unspecified CKD (chronic kidney disease) stage 3, GFR 30-59 ml/min (HCC) Chronic kidney disease, Stage III (moderate) Hypokalemia Hypopotassemia Elevated brain natriuretic peptide (BNP) level Other nonspecific findings on examination of blood Elevated BUN Other abnormal blood chemistry Elevated serum creatinine Other nonspecific findings on examination of blood Anemia, unspecified type Postsurgical hypoparathyroidism ([facility]) Hypoparathyroidism CHRISTIE (generalized anxiety disorder) Generalized anxiety disorder PTSD (post-traumatic stress disorder) Posttraumatic stress disorder Depression Depressive disorder, not elsewhere classified ADHD (attention deficit hyperactivity disorder) Attention deficit disorder with hyperactivity BASIL (obstructive sleep apnea) Obstructive sleep apnea (adult) (pediatric) Pre-operative examination- Primary Preoperative examination, unspecified Colon cancer screening Special screening for malignant neoplasms, colon Gastroesophageal reflux disease, esophagitis presence not specified Essential hypertension Unspecified essential hypertension Mixed hyperlipidemia BASIL (obstructive sleep apnea) Obstructive sleep apnea (adult) (pediatric) Vitamin B12 deficiency Other B-complex deficiencies Gastric bypass status for obesity Bariatric surgery status Pancreatic mass Unspecified disease of pancreas CKD (chronic kidney disease) stage 3, GFR 30-59 ml/min (HCC) Chronic kidney disease, Stage III (moderate) MEN1 (multiple endocrine neoplasia) ([facility]) 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 Postsurgical hypoparathyroidism (HCC) Hypoparathyroidism Acquired hypothyroidism Unspecified hypothyroidism Iron deficiency anemia, unspecified iron deficiency anemia type DDD (degenerative disc disease), lumbar Degeneration of lumbar or lumbosacral intervertebral disc Bilateral leg edema Edema Recurrent major depressive disorder, in full remission ([facility]) CHRISTIE (generalized anxiety disorder) Generalized anxiety disorder Attention deficit hyperactivity disorder (ADHD), predominantly hyperactive type PTSD (post-traumatic stress disorder) Posttraumatic stress disorder Obesity, Class III, BMI >= 40 Morbid obesity Plantar fasciitis Plantar fascial fibromatosis documented in this encounter [facility]* Diagnosis Leg edema- Primary Edema MEN (multiple endocrine neoplasia) (HCC) Polyglandular dysfunction, unspecified CKD (chronic kidney disease) stage 3, GFR 30-59 ml/min (HCC) Chronic kidney disease, Stage III (moderate) Hypokalemia Hypopotassemia Elevated brain natriuretic peptide (BNP) level Other nonspecific findings on examination of blood Elevated BUN Other abnormal blood chemistry Elevated serum creatinine Other nonspecific findings on examination of blood Anemia, unspecified type Postsurgical hypoparathyroidism (HCC) Hypoparathyroidism CHRISTIE (generalized anxiety disorder) Generalized anxiety disorder PTSD (post-traumatic stress disorder) Posttraumatic stress disorder Depression Depressive disorder, not elsewhere classified ADHD (attention deficit hyperactivity disorder) Attention deficit disorder with hyperactivity BASIL (obstructive sleep apnea) Obstructive sleep apnea (adult) (pediatric) Pre-operative examination- Primary Preoperative examination, unspecified Colon cancer screening Special screening for malignant neoplasms, colon Gastroesophageal reflux disease, esophagitis presence not specified Essential hypertension Unspecified essential hypertension Mixed hyperlipidemia BASIL (obstructive sleep apnea) Obstructive sleep apnea (adult) (pediatric) Vitamin B12 deficiency Other B-complex deficiencies Gastric bypass status for obesity Bariatric surgery status Pancreatic mass Unspecified disease of pancreas CKD (chronic kidney disease) stage 3, GFR 30-59 ml/min (HCC) Chronic kidney disease, Stage III (moderate) 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 Postsurgical hypoparathyroidism (HCC) Hypoparathyroidism Acquired hypothyroidism Unspecified hypothyroidism Iron deficiency anemia, unspecified iron deficiency anemia type DDD (degenerative disc disease), lumbar Degeneration of lumbar or lumbosacral intervertebral disc Bilateral leg edema Edema Recurrent major depressive disorder, in full remission (HCC) CHRISTIE (generalized anxiety disorder) Generalized anxiety disorder Attention deficit hyperactivity disorder (ADHD), predominantly hyperactive type PTSD (post-traumatic stress disorder) Posttraumatic stress disorder Obesity, Class III, BMI >= 40 Morbid obesity Plantar fasciitis- Primary Plantar fascial fibromatosis Plantar fasciitis Plantar fascial fibromatosis documented in this encounter [facility] for referral (narrative)* Diagnostic Procedure Only (Routine) - Pending Review Specialty Diagnoses / Procedures Referred By Penny t Referred To Contact BR IMAGING Diagnoses Encounter for screening mammogram for breast cancer Procedures LEXI SCREENING SCREENING MAMMOGRAPHY BI 2-VIEW BREAST INC Bret Hughes MD [address] [place] [address] [facility] [address] [place] [phone] Referral ID Status Reason Start Date Expiration Date Visits Requested Visits Authorized [id number] Pending Review Auto-Generat ed Referral 09/03/2021 10/03/2022 1 1 T [facility] for referral (narrative)* Diagnostic Procedure Only (Urgent) - Closed Specialty Diagnoses / Procedures Referred By Contac t Referred To Contact XR IMAGING Diagnoses Foot pain, right Procedures XR FOOT GENERAL 3V AP/LAT/OBL RIGHT RADEX FOOT COMPLETE MINIMUM 3 VIEWS [facility] [address] [place] [address] [place] [address] Referral ID Status Reason Start Date Expiration Date V isits Requested Visits Authorized [id number] Closed Auto-Generate d Referral 06/22/2023 07/21/2024 1 1 [facility] for referral (narrative)* Diagnostic Procedure Only (Routine) - Closed Specialty Diagnoses / Procedures Referred By Contac t Referred To Contact XR IMAGING Diagnoses Plantar fasciitis Procedures XR FOOT GENERAL 3V AP/LAT/OBL LEFT RADEX FOOT COMPLETE MINIMUM 3 VIEWS [facility] [address] [address] [place] [address] Referral ID Status Reason Start Date Expiration Date V isits Requested Visits Authorized [id number] Closed Auto-Generate d Referral 03/24/2024 04/23/2025 1 1 [facility] for visit Narrative* Diagnostic Procedure Only (Urgent) - Closed Specialty Diagnoses / Procedures Referred By Contac t Referred To Contact XR IMAGING Diagnoses Foot pain, right Procedures XR FOOT GENERAL 3V AP/LAT/OBL RIGHT RADEX FOOT COMPLETE MINIMUM 3 VIEWS [facility] [address] [place] [address] [place] [address] Referral ID Status Reason Start Date Expiration Date V isits Requested Visits Authorized [id number] Closed Auto-Generate d Referral 06/22/2023 07/21/2024 [facility] Diagnostic Procedure Only (Routine) - Closed Specialty Diagnoses / Procedures Referred By Penny t Referred To Contact XR IMAGING Diagnoses Plantar fasciitis Procedures XR FOOT GENERAL 3V AP/LAT/OBL LEFT RADEX FOOT COMPLETE MINIMUM 3 VIEWS [facility] [address] [address] [place] [address] Referral ID Status Reason Start Date Expiration Date V isits Requested Visits Authorized [id number] Closed Auto-Generate d Referral 03/24/2024 04/23/2025 1 1 [facility] Summary Purpose Family History No Family History Records FoundNo Family History Records FoundNo Family History Records FoundNo Family History Records FoundNo Family History Records Found Advance Directives No Advanced Directives Records FoundDocuments on File Type Date Recorded Patient Environmental Systems Coordinator Expl anation Advance Directive(s) Advance Directive(s) 10/24/2018 11:36 AM Advance Directive(s) 10/15/2018 3:28 PM Advance Directive(s) 08/30/2018 6:43 PM Advance Directive(s) 08/04/2018 1:52 PM Advance Directive(s) 05/24/2018 12:12 PM Advance Directive(s) 04/19/2018 9:49 AM Advance Directive(s) 06/07/2017 4:23 PM Advance Directive(s) 10/14/2016 10:16 AM Advance Directive(s) 10/14/2016 12:51 PM Documents on File Type Date Recorded Patient Environmental Systems Coordinator Expl anation Advance Directive(s) Advance Directive(s) 10/24/2018 11:36 AM Advance Directive(s) 10/15/2018 3:28 PM Advance Directive(s) 08/30/2018 6:43 PM Advance Directive(s) 08/04/2018 1:52 PM Advance Directive(s) 05/24/2018 12:12 PM Advance Directive(s) 04/19/2018 9:49 AM Advance Directive(s) 06/07/2017 4:23 PM Advance Directive(s) 10/14/2016 10:16 AM Advance Directive(s) 10/14/2016 12:51 PM Documents on File Type Date Recorded Patient Environmental Systems Coordinator Expl anation Advance Directive(s) 10/14/2016 12:51 PM Documents on File Type Date Recorded Patient Environmental Systems Coordinator Expl anation Advance Directive(s) 10/14/2016 12:51 PM Reason for Referral Specialty Diagnoses / Procedures Referred By Contac t Referred To Contact CT IMAGING Diagnoses Malignant neoplasm of head of pancreas (HCC) Procedures CT PANCREAS W IVCON CT ABDOMEN W/CONTRAST Peter Sigala MD [address] [place] [address] Ct [facility] [place] [address] Referral ID Status Reason Start Date Expiration Date V isits Requested Visits Authorized [id number] Closed Auto-Generat ed Referral Patient Cleared - Admin/Chairm an/Director advise to proceed or did not respond 07/17/2022 09/15/2022 1 1 Specialty Diagnoses / Procedures Referred By Contac t Referred To Contact Podiatry Diagnoses Foot pain, right Procedures CONSULT TO PODIATRY OFFICE/OUTPATIENT NEW HIGH MDM 60 MINUTES [facility] [address] [place] [address] Referral ID Status Reason Start Date Expiration Date Visits Requested Visits Authorized [id number] Authorized PCP Requested Referral 06/22/2023 06/21/2024 1 1 Specialty Diagnoses / Procedures Referred By Contac t Referred To Contact XR IMAGING Diagnoses Foot pain, right Procedures XR FOOT GENERAL 3V AP/LAT/OBL RIGHT RADEX FOOT COMPLETE MINIMUM 3 VIEWS [facility] [address] [place] [address] Xr Imaging [id number] Referral ID Status Reason Start Date Expiration Date V isits Requested Visits Authorized [id number] Closed Auto-Generate d Referral 06/22/2023 07/21/2024 1 1 Additional Source Comments INFORMATION SOURCE (unrecogn ized section and content) DATE CREATED AUTHOR 09/01/2017 [facility] [employer] [facility] DATE CREATED AUTHOR AUTHOR'S ORGANIZ ATION 06/02/2018 [facility] ([place]) DATE CREATED AUTHOR AUTHOR'S ORGANIZ ATION 06/28/2020 [facility] DATE CREATED AUTHOR AUTHOR'S ORGANIZ ATION 04/01/2024 [facility] DATE CREATED AUTHOR AUTHOR'S ORGANIZ ATION 09/08/2024 [facility] Source Comments (unrecognize d section and content) In the event this informatio n is protected by the Federal Confidentiality of Alcohol and Drug Abuse Patient Records regulations: The Federal rules restrict any use of the information to criminally investigate or prosecute any alcohol or drug abuse patient.[facility] HospitalIn the event this information is protected by the Federal Confidentiality of Alcohol and Drug Abuse Patient Records regulations: The Federal rules restrict any use of the information to criminally investigate or prosecute any alcohol or drug abuse patient.[facility] HospitalIn the event this information is protected by the Federal Confidentiality of Alcohol and Drug Abuse Patient Records regulations: The Federal rules restrict any use of the information to criminally investigate or prosecute any alcohol or drug abuse patient.[facility] HospitalIn the event this information is protected by the Federal Confidentiality of Alcohol and Drug Abuse Patient Records regulations: The Federal rules restrict any use of the information to criminally investigate or prosecute any alcohol or drug abuse patient.[facility] HospitalIn the event this information is protected by the Federal Confidentiality of Alcohol and Drug Abuse Patient Records regulations: The Federal rules restrict any use of the information to criminally investigate or prosecute any alcohol or drug abuse patient.[facility] HospitalIn the event this information is protected by the Federal Confidentiality of Alcohol and Drug Abuse Patient Records regulations: The Federal rules restrict any use of the information to criminally investigate or prosecute any alcohol or drug abuse patient.[facility] HospitalIn the event this information is protected by the Federal Confidentiality of Alcohol and Drug Abuse Patient Records regulations: The Federal rules restrict any use of the information to criminally investigate or prosecute any alcohol or drug abuse patient.[facility] HospitalIn the event this information is protected by the Federal Confidentiality of Alcohol and Drug Abuse Patient Records regulations: The Federal rules restrict any use of the information to criminally investigate or prosecute any alcohol or drug abuse patient.[facility] HospitalIn the event this information is protected by the Federal Confidentiality of Alcohol and Drug Abuse Patient Records regulations: The Federal rules restrict any use of the information to criminally investigate or prosecute any alcohol or drug abuse patient.[facility] HospitalIn the event this information is protected by the Federal Confidentiality of Alcohol and Drug Abuse Patient Records regulations: The Federal rules restrict any use of the information to criminally investigate or prosecute any alcohol or drug abuse patient.[facility] HospitalIn the event this information is protected by the Federal Confidentiality of Alcohol and Drug Abuse Patient Records regulations: The Federal rules restrict any use of the information to criminally investigate or prosecute any alcohol or drug abuse patient.[facility] HospitalIn the event this information is protected by the Federal Confidentiality of Alcohol and Drug Abuse Patient Records regulations: The Federal rules restrict any use of the information to criminally investigate or prosecute any alcohol or drug abuse patient.[facility] HospitalIn the event this information is protected by the Federal Confidentiality of Alcohol and Drug Abuse Patient Records regulations: The Federal rules restrict any use of the information to criminally investigate or prosecute any alcohol or drug abuse patient.[facility] HospitalIn the event this information is protected by the Federal Confidentiality of Alcohol and Drug Abuse Patient Records regulations: The Federal rules restrict any use of the information to criminally investigate or prosecute any alcohol or drug abuse patient.[facility] HospitalIn the event this information is protected by the Federal Confidentiality of Alcohol and Drug Abuse Patient Records regulations: The Federal rules restrict any use of the information to criminally investigate or prosecute any alcohol or drug abuse patient.[facility] HospitalIn the event this information is protected by the Federal Confidentiality of Alcohol and Drug Abuse Patient Records regulations: The Federal rules restrict any use of the information to criminally investigate or prosecute any alcohol or drug abuse patient.[facility] HospitalIn the event this information is protected by the Federal Confidentiality of Alcohol and Drug Abuse Patient Records regulations: The Federal rules restrict any use of the information to criminally investigate or prosecute any alcohol or drug abuse patient.[facility] HospitalIn the event this information is protected by the Federal Confidentiality of Alcohol and Drug Abuse Patient Records regulations: The Federal rules restrict any use of the information to criminally investigate or prosecute any alcohol or drug abuse patient.[facility] HospitalIn the event this information is protected by the Federal Confidentiality of Alcohol and Drug Abuse Patient Records regulations: The Federal rules restrict any use of the information to criminally investigate or prosecute any alcohol or drug abuse patient.[facility] HospitalIn the event this information is protected by the Federal Confidentiality of Alcohol and Drug Abuse Patient Records regulations: The Federal rules restrict any use of the information to criminally investigate or prosecute any alcohol or drug abuse patient.[facility] HospitalIn the event this information is protected by the Federal Confidentiality of Alcohol and Drug Abuse Patient Records regulations: The Federal rules restrict any use of the information to criminally investigate or prosecute any alcohol or drug abuse patient.[facility] HospitalIn the event this information is protected by the Federal Confidentiality of Alcohol and Drug Abuse Patient Records regulations: The Federal rules restrict any use of the information to criminally investigate or prosecute any alcohol or drug abuse patient.[facility] HospitalIn the event this information is protected by the Federal Confidentiality of Alcohol and Drug Abuse Patient Records regulations: The Federal rules restrict any use of the information to criminally investigate or prosecute any alcohol or drug abuse patient.[facility] HospitalIn the event this information is protected by the Federal Confidentiality of Alcohol and Drug Abuse Patient Records regulations: The Federal rules restrict any use of the information to criminally investigate or prosecute any alcohol or drug abuse patient.[facility] HospitalIn the event this information is protected by the Federal Confidentiality of Alcohol and Drug Abuse Patient Records regulations: The Federal rules restrict any use of the information to criminally investigate or prosecute any alcohol or drug abuse patient.[facility] HospitalIn the event this information is protected by the Federal Confidentiality of Alcohol and Drug Abuse Patient Records regulations: The Federal rules restrict any use of the information to criminally investigate or prosecute any alcohol or drug abuse patient.[facility] HospitalIn the event this information is protected by the Federal Confidentiality of Alcohol and Drug Abuse Patient Records regulations: The Federal rules restrict any use of the information to criminally investigate or prosecute any alcohol or drug abuse patient.[facility] HospitalIn the event this information is protected by the Federal Confidentiality of Alcohol and Drug Abuse Patient Records regulations: The Federal rules restrict any use of the information to criminally investigate or prosecute any alcohol or drug abuse patient.[facility] HospitalIn the event this information is protected by the Federal Confidentiality of Alcohol and Drug Abuse Patient Records regulations: The Federal rules restrict any use of the information to criminally investigate or prosecute any alcohol or drug abuse patient.[facility] Reason for Visit (unrecogniz ed section and content) Reason Comments Hyperparathyroidism Specialty Diagnoses / Procedures Referred By Penny chang Referred To Contact Endocrinology / ENDOCRINOLOGY SURGERY Diagnoses Encounter for follow-up examination after completed treatment for conditions other than malignant neoplasm follow up Procedures OFFICE/OUTPATIENT ESTABLISHED HIGH MDM 40 MIN EST CECI PATIENT Self Peter Sigala MD [address] [place] [address] Referral ID Status Reason Start Date Expiration Date V isits Requested Visits Authorized [id number] Authorized 12/28/2023 03/07/2024 99 99 Reason Comments Refill Request Reason Onset Date Comments Refill Request 01/30/2022 Refill Request 02/24/2022 Reason Comments Conjunctivitis L eye, sinus pain an d congestion x3 days Reason Comments Radiology CT Specialty Diagnoses / Procedures Referred By Penny chang Referred To Contact CT IMAGING Diagnoses Malignant neoplasm of head of pancreas (HCC) Procedures CT PANCREAS W IVCON CT ABDOMEN W/CONTRAST Peter Sigala MD [address] [place] [address] Ct [facility] [place] [address] Referral ID Status Reason Start Date Expiration Date V isits Requested Visits Authorized [id number] Closed Auto-Generat ed Referral Patient Cleared - Admin/Chairm an/Director advise to proceed or did not respond 07/17/2022 09/15/2022 1 1 Reason Comments right foot pain X 3-4 weeks-cannot r ecall an injury Reason Comments Opened In Error Reason Comments New Pain Swelling Specialty Diagnoses / Procedures Referred By Contac t Referred To Contact Podiatry Diagnoses Foot pain, right Procedures CONSULT TO PODIATRY OFFICE/OUTPATIENT NEW HIGH MDM 60 MINUTES [facility] [address] [place] [address] Referral ID Status Reason Start Date Expiration Date V isits Requested Visits Authorized [id number] Closed PCP Requested Referral 06/22/2023 06/21/2024 1 1 Reason Comments Results Reason Comments Established Patient Pain Specialty Diagnoses / Procedures Referred By Contac t Referred To Contact Podiatry / PODIATRY Diagnoses Primary osteoarthritis, right ankle and foot f/u right foot Procedures OFFICE/OUTPATIENT ESTABLISHED SF MDM 10 MIN OFFICE/OUTPATIENT ESTABLISHED LOW MDM 20 MIN OFFICE/OUTPATIENT ESTABLISHED MOD MDM 30 MIN OFFICE/OUTPATIENT ESTABLISHED HIGH MDM 40 MIN RACIEL EST PODI Zulma Sol [address] [place] [address] Zulma Sol [address] [address] Referral ID Status Reason Start Date Expiration Date V isits Requested Visits Authorized [id number] Closed Patient Cleared - Admin/Chairm an/Director advise to proceed or did not respond 03/23/2024 03/07/2025 1 1 Care Teams (unrecognized sec tion and content) Prospecting Driller Helper Relationship Specialty Start Date End Date Bret Salomon MD [address] [place] [address] PCP - General Internal Medicine 12/23/15 Grayson Solorzano MD [address] [address] Physician Endocrinology 12/26/14 [facility] [address] [place] [address] 01/23/19 [employer]ing Driller Helper Relationship Specialty Start Date End Date Bret Salomon MD [address] [place] [address] PCP - General Internal Medicine 12/23/15 Grayson Solorzano MD [address] [place] [address] Physician Endocrinology 12/26/14 [facility] [address] [place] [address] 01/23/19 Prospecting Driller Helper Relationship Specialty Start Date End Date Bret Salomon MD [address] [place] [address] PCP - General Internal Medicine 12/23/15 Grayson Solorzano MD [address] [place] [address] Physician Endocrinology 12/26/14 [facility] [address] [place] [address] 01/23/19 Prospecting Driller Helper Relationship Specialty Start Date End Date Bret Salomon MD [address] [place] [address] PCP - General Internal Medicine 12/23/15 Grayson Solorzano MD [address] [place] [address] Physician Endocrinology 12/26/14 [facility] [address] [place] [address] 01/23/19 Prospecting Driller Helper Relationship Specialty Start Date End Date Bret Salomon MD [address] [place], [place] [id number] PCP - General Internal Medicine 12/23/15 Grayson Solorzano MD [address] [place] [address] Physician Endocrinology 12/26/14 [facility] [address] [place] [address] 01/23/19 Prospecting Driller Helper Relationship Specialty Start Date End Date Grayson Solorzano MD [address] [place] [address] Physician Endocrinology 12/26/14 [facility] [address] [place] [address] 01/23/19 [employer]ing Driller Helper Relationship Specialty Start Date End Date Grayson Solorzano MD [address] [place] [address] Physician Endocrinology 12/26/14 [facility] [address] [place] [address] 01/23/19 Prospecting Driller Helper Relationship Specialty Start Date End Date Grayson Solorzano MD [address] [place] [address] Physician Endocrinology 12/26/14 [facility] [address] [place] [address] 01/23/19 Prospecting Driller Helper Relationship Specialty Start Date End Date Grayson Solorzano MD [address] [place] [address] Physician Endocrinology 12/26/14 [facility] [address] [place] [address] 01/23/19 Prospecting Driller Helper Relationship Specialty Start Date End Date Grayson Solorzano MD [address] [place] [address] Physician Endocrinology 12/26/14 [facility] [address] [place] [address] 01/23/19 Prospecting Driller Helper Relationship Specialty Start Date End Date Grayson Solorzano MD [address] [place] [address], [place] [address] Physician Endocrinology 12/26/14 [facility] [address] [place] [address] 01/23/19 Prospecting Driller Helper Relationship Specialty Start Date End Date Grayson Solorzano MD [address] [place] [address], [place] [address] Physician Endocrinology 12/26/14 [facility] [address] [place] [address] 01/23/19 Prospecting Driller Helper Relationship Specialty Start Date End Date Grayson Solorzano MD [address] [place] [address], [place] [address] Physician Endocrinology 12/26/14 [facility] [address] [place] [address] 01/23/19 Prospecting Driller Helper Relationship Specialty Start Date End Date Grayson Solorzano MD [address] [place] [address], [place] [address] Physician Endocrinology 12/26/14 [facility] [address] [place] [address] 01/23/19 Prospecting Driller Helper Relationship Specialty Start Date End Date Grayson Solorzano MD [address] [place] [address], [place] [address] Physician Endocrinology 12/26/14 [facility] [address] [place] [address] 01/23/19 Prospecting Driller Helper Relationship Specialty Start Date End Date Grayson Solorzano MD [address] [address] Physician Endocrinology 12/26/14 [facility] [address] [place] [address] 01/23/19 Prospecting Driller Helper Relationship Specialty Start Date End Date Bret Salomon MD [address] [place] [address] PCP - General Internal Medicine 12/23/15 10/06/21 Grayson Solorzano MD [address] [place] [address] Physician Endocrinology 12/26/14 [facility] [address] [place] [address] 01/23/19 Prospecting Driller Helper Relationship Specialty Start Date End Date Grayson Solorzano MD [address] [place] [address] Physician Endocrinology 12/26/14 [facility] [address] [place] [address] 01/23/19 Prospecting Driller Helper Relationship Specialty Start Date End Date Grayson Solorzano MD [address] [place] [address] Physician Endocrinology 12/26/14 [facility] [address] [place] [address] 01/23/19 Prospecting Driller Helper Relationship Specialty Start Date End Date Grayson Solorzano MD [address] [place] [address] Physician Endocrinology 12/26/14 [facility] [address] [place] [address] 01/23/19 Prospecting Driller Helper Relationship Specialty Start Date End Date Grayson Solorzano MD [address] [address] Physician Endocrinology 12/26/14 [facility] [address] [facility] [address] 01/23/19 Prospecting Driller Helper Relationship Specialty Start Date End Date Grayson Solorzano MD [address] [place] [address] Physician Endocrinology 12/26/14 [facility] [address] [facility] [address] 01/23/19 FOR RECORDS PERTAINING TO PATIENTS WHO [...] BE BASED ON THE PRIMARY CLINICAL RECORDS. [employer] [facility]. provides no warranty or guarantee of the accuracy or completeness of information in this document.
--- OUTSIDE RECORDS SUMMARY | 2024-09-09 17:58 | XMS RPT_ITS | CCD ---
Author Organization [facility] Care Team Providers Care House Mover Helper Name Role Phone GABRIELA MAY Attending Unavailable KEITH YAN Primary Care Unavailable GABRIELA MAY Attending Unavailable KEITH YAN Primary Care Unavailable Grayson Solorzano MD Unavailable Bret Salomon MD Primary Care Provider [phone] Grayson Solorzano MD Unavailable Grayson Solorzano MD Unavailable Bret Salomon MD Primary Care Provider [phone] ROSINA MUÑOZ Referring Unavailable TESTRAKEZULMA Referring Unavailable TESTRAKEZULMA Attending Unavailable TESTRAZULMA LUI Referring Unavailable TESTRAZULMA LUI Attending Unavailable TESTZULMA OSORIO Referring Unavailable SIPERSTEIN PETER Referring Unavailable SIPERSTEINMABELAN Attending Unavailable Samson, Alondra Primary Care Unavailable Le, Agustin Attending Unavailable Le, Agustin Referring Unavailable [place], Alondra Primary Care Unavailable Grupo, Michael Referring Unavailable Grupo, Michael Attending Unavailable [place], Alondra Primary Care Unavailable [place], Alondra Attending Unavailable [place], Alondra Referring Unavailable [place], Alondra Primary Care Unavailable Grupo, Michael Referring Unavailable Grupo, Michael Attending Unavailable Samson, Alondra Referring Unavailable [place], Alondra Attending Unavailable Samson, Alondra Primary Care Unavailable [place], Alondra Primary Care Unavailable Samson, Alondra Attending Unavailable Samson, Alondra Referring Unavailable Zulma Chi Attending Unavailable Zulma Chi Referring Unavailable [place], Alondra Primary Care Unavailable Samson, Alondra Primary Care Unavailable Le, Agustin Referring Unavailable Jonathan Jim Attending Unavailable Velasquez Gonzalez Admitting Unavailable Agyeponmir, Velasquez Consulting Unavailable [place], Alondra Primary Care Unavailable Grupo, Michael Attending Unavailable Grupo, Michael Referring Unavailable Samson, Alondra Primary Care Unavailable Le, Agustin Attending Unavailable Samson, Alondra Primary Care Unavailable Camacho, Galdino Attending Unavailable Samson, Alondra Primary Care Unavailable Camacho, Galdino Attending Unavailable Samson, Alondra Primary Care Unavailable Lemuel Bledsoe Attending Unavailable Samson, Alondra Primary Care Unavailable Joey Hughes Attending Unavailable [place], Alondra Primary Care Unavailable Syed Crum Attending Unavailable Samson, Alondra Primary Care Unavailable Le, Agustin Attending Unavailable [place], Alondra Primary Care Unavailable Grupo, Michael Referring Unavailable Grupo, Michael Attending Unavailable Lesa Carter Consulting Unavailable Zulma Chi Attending Unavailable Samson, Alondra Primary Care Unavailable [place], Alondra Primary Care Unavailable Grupo, Michael Attending [...] Unavailable Provider, Ed Physician Attending Unavailab le [place], Alondra Primary Care Unavailable Molly Perez Attending Unavailabl Filomena Franklin Consulting Unavailable John, Filmoena Admitting Unavailable John, Filomena Attending Unavailable [place], Alondra Primary Care Unavailable Samson, Alondra Primary Care Unavailable Le, Agustin Referring Unavailable Jonathan Jim Attending Unavailable Velasquez Gonzalez Consulting Unavailable Aglillian, Velasquez Admitting Unavailable Jonathan Jim Consulting Unavailable [place], Alondra Primary Care Unavailable Samson, Alondra Attending Unavailable Samson, Alondra Referring Unavailable [place], Alondra Primary Care Unavailable Grupo, Michael Attending Unavailable Samson, Alondra Referring Unavailable Kenn Terrell Attending Unavailable Samson, Alondra Primary Care Unavailable [place], Alondra Referring Unavailable Samson, Alondra Primary Care Unavailable Zulma Chi Attending Unavailable [place], Alondra Primary Care Unavailable Samson, Alondra Referring Unavailable Kenn Gerard Attending Unavailable [place], Alondra Primary Care Unavailable Samson, Alondra Referring Unavailable Samson, Alondra Attending Unavailable [place], Alondra Primary Care Unavailable Kenn Terrell Attending Unavailable Samson, Alondra Primary Care Unavailable Kenn Terrell Attending Unavailable [place], Alondra Primary Care Unavailable Kenn Terrell Attending Unavailable [place], Alondra Primary Care Unavailable Michael Lombardo Attending Unavailable Samson, Alondra Referring Unavailable [place], Alondra Primary Care Unavailable Samson, Alondra Attending [...] [CONTRAST DYE] Drug Allergy 8 Rash, Intolerance [facility] (20 sources) ferrous gluconate; Translations: [FERROUS GLUCONATE] Drug Allergy 3 GI Upset [facility] Work Phone: (20 sources) Morphine; Translations: [MORPHINE] Drug Allergy 6 Rash [facility] (20 sources) Ondansetron; Translations: [ONDANSETRON] Drug Allergy 8 Other: See Comments [facility] (20 sources) oxyCODONE; Translations: [OXYCODONE HCL] Drug Allergy 7 Rash, Swelling [facility] (20 sources) Propranolol; Translations: [PROPRANOLOL] Drug Allergy 8 Itching [facility] Work Phone: (6 sources) Iodides; Translations: [IODIDES] Drug Allergy 1 Intolerance [facility] (1 source) Iron Drug Allergy 5 [facility] (1 source) Morphine Drug Allergy 5 [facility] (1 source) Ondansetron Drug Allergy 5 [facility] (1 source) Propranolol Drug Allergy 5 [facility] (1 source) Iodinated Contrast Media Drug allergy (disorder) 5 [facility] Medications Current Medications Medication Drug Class(es) Dates Sig (Normalized) Sig (Original) [id number] 200 actuat albuterol 0.09 mg/actuat metered dose [...] once daily. Take 1 capsule by [facility] one time a week. diphenhydrAMINE hydrochloride 25 [...] Comment on above: [facility] hydrOXYzine pamoate 25 mg [...] Comment on above: Take 1 capsule by [facility] four times daily as needed for anxiety [...] Comment on above: take 1 capsule by [facility] twice a day pantoprazole (8 sources) Proton Pump Inhibitor take 1 capsule by mouth once daily pantoprazole sodium (PROTONIX ORAL) Take 1 capsule by mouth once daily. Active pantoprazole sod ium (PROTONIX ORAL) Take by mouth. Active pantoprazole sod ium (PROTONIX ORAL) Take by mouth. 0 Active polymyxin b 31537 unt/ml / trimethoprim 1 mg/ml ophthalmic solution [...] on above: Take 3 tablets by [facility] once daily. vitamin b12 1 mg oral [...] Comment on above: Take 1 capsule by [facility] daily at bedtime. Take 10 mg by [...] [Obesity, Class III, BMI 40-49.9 (morbid obesity) ([facility])] Onset: 8 Chronic Other nutritional; endocrine; and [...] )on 09-04-2024 BUN/CRE 11.9 RATIO Normal 10-20 [facility] Comment on above: Performed By: #### L 500.2500 ####[facility] [address] [place], [address] Calcium [Mass/Vol] 11.3 mg/dL High 7.6-11.0 [facility] Comment on above: Performed By: #### L 500.2500 ####[facility] [address] [place], [address] Chloride [Moles/Vol] 100 mmol/L Normal 98-[address] [facility] Comment on above: Performed By: #### L 500.2500 ####[facility] [address] [place], [address] CO2 [Moles/Vol] 27.7 mmol/L Normal 21.0-32.0 [facility] Comment on above: Performed By: #### L 500.2500 ####[facility] [address] [place], [address] Creatinine [Mass/Vol] 1.38 mg/dL High 0.70-1.20 [facility] Comment on above: Performed By: #### L 500.2500 ####[facility] [address] [place], [address] GAP 10 Normal 5-15 [facility] Comment on above: Performed By: #### L 500.2500 ####[facility] [address] [place], [address] GFR/1.73 sq M.predicted among non-blacks MDRD (S/P/Bld) [Vol rate/Area] 44 mL/min/{1.73_m2} Low >60 [facility] Comment on above: Result Comment: mL/m in/1.73m2 CKD-EPI Creatinine Equation (2020) Performed By: #### L 500.2500 ####[facility] [address] [place], [address] Glucose [Mass/Vol] 100 mg/dL High 70-99 [facility] Comment on above: Performed By: #### L 500.2500 ####[facility] [address] [place], [address] Potassium [Moles/Vol] 4.4 mmol/L Normal 3.3-5.1 [facility] Comment on above: Performed By: #### L 500.2500 ####[facility] [address] [place], [address] Sodium [Moles/Vol] 138 mmol/L Normal 133-145 [facility] Comment on above: Performed By: #### L 500.2500 ####[facility] [address] [place], [address] Urea nitrogen [Mass/Vol] 16 mg/dL Normal 4-19 [facility] Comment on above: Performed By: #### L 500.2500 ####[facility] [address] [place], [address] Comprehensive Metabolic Prof ilon 08-24-2024 Albumin [Mass/Vol] 4.0 g/dL Normal 3.5-5.0 [facility] Comment on above: Performed By: #### L 500.4050 ####[facility] [address] [place], [address] Albumin/Globulin [Mass ratio] 1.3 {ratio} Normal 0.9-2.4 [facility] Comment on above: Performed By: #### L 500.4050 ####[facility] [address] [place], [address] ALK PHOS 87 U/L Normal 35-104 [facility] Comment on above: Performed By: #### L 500.4050 ####[facility] [address] [place], [address] ALT [Catalytic activity/Vol] 8 U/L Normal <=34 [facility] Comment on above: Performed By: #### L 500.4050 ####[facility] [address] [place], [address] AST [Catalytic activity/Vol] 16 U/L Normal <=31 [facility] Comment on above: Performed By: #### L 500.4050 ####[facility] [address] [place], [address] Bilirubin [Mass/Vol] 0.48 mg/dL Normal 0.00-1.[address] [facility] Comment on above: Performed By: #### L 500.4050 ####[facility] [address] [place], [address] BUN/CRE 14.1 RATIO Normal 10-20 [facility] Comment on above: Performed By: #### L 500.4050 ####[facility] [address] [place], [address] Calcium [Mass/Vol] 10.1 mg/dL Normal 7.6-11.0 [facility] Comment on above: Performed By: #### L 500.4050 ####[facility] [address] [place], [address] Chloride [Moles/Vol] 103 mmol/L Normal 98-[address] [facility] Comment on above: Performed By: #### L 500.4050 ####[facility] [address] [place], [address] CO2 [Moles/Vol] 24.3 mmol/L Normal 21.0-32.0 [facility] Comment on above: Performed By: #### L 500.4050 ####[facility] [address] [place], [address] Creatinine [Mass/Vol] 1.37 mg/dL High 0.70-1.20 [facility] Comment on above: Performed By: #### L 500.4050 ####[facility] [address] [place], [address] GAP 11 Normal 5-15 [facility] Comment on above: Performed By: #### L 500.4050 ####[facility] [address] [place], [address] GFR/1.73 sq M.predicted among non-blacks MDRD (S/P/Bld) [Vol rate/Area] 45 mL/min/{1.73_m2} Low >60 [facility] Comment on above: Result Comment: mL/m in/1.73m2 CKD-EPI Creatinine Equation (2020) Performed By: #### L 500.4050 ####[facility] [address] [place], [address] Globulin (S) [Mass/Vol] 3.0 g/dL Normal 2.2-4.2 [facility] Comment on above: Performed By: #### L 500.4050 ####[facility] [address] [place], [address] Glucose [Mass/Vol] 113 mg/dL High 70-99 [facility] Comment on above: Performed By: #### L 500.4050 ####[facility] [address] [place], [address] Potassium [Moles/Vol] 4.3 mmol/L Normal 3.3-5.1 [facility] Comment on above: Performed By: #### L 500.4050 ####[facility] [address] [place], [address] Sodium [Moles/Vol] 139 mmol/L Normal 133-145 [facility] Comment on above: Performed By: #### L 500.4050 ####[facility] [address] [place], [address] T PROT 7.0 g/dL Normal 5.9-8.4 [facility] Comment on above: Performed By: #### L 500.4050 ####[facility] [address] [place], [address] Urea nitrogen [Mass/Vol] 19 mg/dL Normal 4-19 [facility] Comment on above: Performed By: #### L 500.4050 ####[facility] [address] [place], [address] Comprehensive Metabolic Prof [facility] 08-16-2024 Albumin [Mass/Vol] 3.9 g/dL Normal 3.5-5.0 [facility] Comment on above: Performed By: #### L 500.4050 ####[facility] [address] [place], [address] Albumin/Globulin [Mass ratio] 1.1 {ratio} Normal 0.9-2.4 [facility] Comment on above: Performed By: #### L 500.4050 ####[facility] [address] [place], [address] ALK PHOS 98 U/L Normal 35-104 [facility] Comment on above: Performed By: #### L 500.4050 ####[facility] [address] [place], [address] ALT [Catalytic activity/Vol] 14 U/L Normal <=34 [facility] Comment on above: Performed By: #### L 500.4050 ####[facility] [address] [place], [address] AST [Catalytic activity/Vol] 18 U/L Normal <=31 [facility] Comment on above: Performed By: #### L 500.4050 ####[facility] [address] [place], [address] Bilirubin [Mass/Vol] 0.30 mg/dL Normal 0.00-1.[address] [facility] Comment on above: Performed By: #### L 500.4050 ####[facility] [address] [place], [address] BUN/CRE 11.9 RATIO Normal 10-20 [facility] Comment on above: Performed By: #### L 500.4050 ####[facility] [address] [place], [address] Calcium [Mass/Vol] 10.5 mg/dL Normal 7.6-11.0 [facility] Comment on above: Performed By: #### L 500.4050 ####[facility] [address] [place], [address] Chloride [Moles/Vol] 103 mmol/L Normal 98-[address] [facility] Comment on above: Performed By: #### L 500.4050 ####[facility] [address] [place], [address] CO2 [Moles/Vol] 24.0 mmol/L Normal 21.0-32.0 [facility] Comment on above: Performed By: #### L 500.4050 ####[facility] [address] [place], [address] Creatinine [Mass/Vol] 1.49 mg/dL High 0.70-1.20 [facility] Comment on above: Performed By: #### L 500.4050 ####[facility] [address] [place], [address] GAP 12 Normal 5-15 [facility] Comment on above: Performed By: #### L 500.4050 ####[facility] [address] [place], [address] GFR/1.73 sq M.predicted among non-blacks MDRD (S/P/Bld) [Vol rate/Area] 40 mL/min/{1.73_m2} Low >60 [facility] Comment on above: Result Comment: mL/m in/1.73m2 CKD-EPI Creatinine Equation (2020) Performed By: #### L 500.4050 ####[facility] [address] [place], [address] Globulin (S) [Mass/Vol] 3.4 g/dL Normal 2.2-4.2 [facility] Comment on above: Performed By: #### L 500.4050 ####[facility] [address] [place], [address] Glucose [Mass/Vol] 93 mg/dL Normal 70-99 [facility] Comment on above: Performed By: #### L 500.4050 ####[facility] [address] [place], [address] Potassium [Moles/Vol] 4.4 mmol/L Normal 3.3-5.1 [facility] Comment on above: Performed By: #### L 500.4050 ####[facility] [address] [place], [address] Sodium [Moles/Vol] 139 mmol/L Normal 133-145 [facility] Comment on above: Performed By: #### L 500.4050 ####[facility] [address] [place], [address] T PROT 7.3 g/dL Normal 5.9-8.4 [facility] Comment on above: Performed By: #### L 500.4050 ####[facility] [address] [place], [address] Urea nitrogen [Mass/Vol] 18 mg/dL Normal 4-19 [facility] Comment on above: Performed By: #### L 500.4050 ####[facility] [address] [place], [address] Basic Metabolic Profile (BMP )on 08-07-2024 BUN/CRE 12.7 RATIO Normal 10-20 [facility] Comment on above: Performed By: #### L 506.1001, L500.2500 ####[facility] [address] [place], [address] Calcium [Mass/Vol] 8.3 mg/dL Normal 7.6-11.0 [facility] Comment on above: Performed By: #### L 506.1001, L500.2500 ####[facility] [address] [place], [address] Chloride [Moles/Vol] 99 mmol/L Normal 98-[address] [facility] Comment on above: Performed By: #### L 506.1001, L500.2500 ####[facility] [address] [place], [address] CO2 [Moles/Vol] 26.5 mmol/L Normal 21.0-32.0 [facility] Comment on above: Performed By: #### L 506.1001, L500.2500 ####[facility] [address] [place], [address] Creatinine [Mass/Vol] 1.65 mg/dL High 0.70-1.20 [facility] Comment on above: Performed By: #### L 506.1001, L500.2500 ####[facility] [address] [place], [address] GAP 14 Normal 5-15 [facility] Comment on above: Performed By: #### L 506.1001, L500.2500 ####[facility] [address] [place], [address] GFR/1.73 sq M.predicted among non-blacks MDRD (S/P/Bld) [Vol rate/Area] 36 mL/min/{1.73_m2} Low >60 [facility] Comment on above: Result Comment: mL/m in/1.73m2 CKD-EPI Creatinine Equation (2020) Performed By: #### L 506.1001, L500.2500 ####[facility] [address] [place], [address] Glucose [Mass/Vol] 101 mg/dL High 70-99 [facility] Comment on above: Performed By: #### L 506.1001, L500.2500 ####[facility] [address] [place], [address] Potassium [Moles/Vol] 3.7 mmol/L Normal 3.3-5.1 [facility] Comment on above: Performed By: #### L 506.1001, L500.2500 ####[facility] [address] [place], [address] Sodium [Moles/Vol] 140 mmol/L Normal 133-145 [facility] Comment on above: Performed By: #### L 506.1001, L500.2500 ####[facility] [address] [place], [address] Urea nitrogen [Mass/Vol] 21 mg/dL High 4-19 [facility] Comment on above: Performed By: #### L 506.1001, L500.2500 ####[facility] [address] [place], [address] Vitamin D,25 Hydroxyon 08-07 Vitamin D 25-OH 28.3 ng/mL Low 30-100 [facility] Comment on above: Result Comment: Carol min D StatusDeficiency: <20 ng/mL (50nmol/L)Insufficiency: 20-30 ng/mL (50-75 nmol/L)Sufficiency: 30-100 ng/mL (75-250 nmol/L)Toxicity: >100 ng/mL (>250 nmol/L) Performed By: #### L 506.1001, L500.2500 ####[facility] [address] [place], [address] Basic Metabolic Profile (BMP )on 08-01-2024 BUN/CRE 9.2 RATIO Low 10-20 [facility] Comment on above: Performed By: #### L 506.1001, L500.2500 ####[facility] [address] [place], [address] Calcium [Mass/Vol] 10.4 mg/dL Normal 7.6-11.0 [facility] Comment on above: Performed By: #### L 506.1001, L500.2500 ####[facility] [address] [place], [address] Chloride [Moles/Vol] 100 mmol/L Normal 98-[address] [facility] Comment on above: Performed By: #### L 506.1001, L500.2500 ####[facility] [address] [place], [address] CO2 [Moles/Vol] 24.5 mmol/L Normal 21.0-32.0 [facility] Comment on above: Performed By: #### L 506.1001, L500.2500 ####[facility] [address] [place], [address] Creatinine [Mass/Vol] 1.86 mg/dL High 0.70-1.20 [facility] Comment on above: Performed By: #### L 506.1001, L500.2500 ####[facility] [address] [place], [address] GAP 14 Normal 5-15 [facility] Comment on above: Performed By: #### L 506.1001, L500.2500 ####[facility] [address] [place], [address] GFR/1.73 sq M.predicted among non-blacks MDRD (S/P/Bld) [Vol rate/Area] 31 mL/min/{1.73_m2} Low >60 [facility] Comment on above: Result Comment: mL/m in/1.73m2 CKD-EPI Creatinine Equation (2020) Performed By: #### L 506.1001, L500.2500 ####[facility] [address] [place], [address] Glucose [Mass/Vol] 109 mg/dL High 70-99 [facility] Comment on above: Performed By: #### L 506.1001, L500.2500 ####[facility] [address] [place], [address] Potassium [Moles/Vol] 3.3 mmol/L Normal 3.3-5.1 [facility] Comment on above: Performed By: #### L 506.1001, L500.2500 ####[facility] [address] [place], [address] Sodium [Moles/Vol] 139 mmol/L Normal 133-145 [facility] Comment on above: Performed By: #### L 506.1001, L500.2500 ####[facility] [address] [place], [address] Urea nitrogen [Mass/Vol] 17 mg/dL Normal 4-19 [facility] Comment on above: Performed By: #### L 506.1001, L500.2500 ####[facility] [address] [place], [address] Vitamin D,25 Hydroxyon 08-01 Vitamin D 25-OH 33.3 ng/mL Normal 30-100 [facility] Comment on above: Result Comment: Carol min D StatusDeficiency: <20 ng/mL (50nmol/L)Insufficiency: 20-30 ng/mL (50-75 nmol/L)Sufficiency: 30-100 ng/mL (75-250 nmol/L)Toxicity: >100 ng/mL (>250 nmol/L) Performed By: #### L 506.1001, L500.2500 ####[facility] [address] [place], [address] Emergency Department Summary on 07-30-2024 Emergency Department Summary Normal [facility] Basic Metabolic Profile (BMP )on 07-28-2024 BUN/CRE 12.1 RATIO Normal 10-20 [facility] Comment on above: Order Comment: PLEAS E SEND RESULTS TO [facility] CARTER ALSO Performed By: #### L 509.1000, L500.2500 ####[facility] [address] [place], [address] Calcium [Mass/Vol] 11.8 mg/dL High 7.6-11.0 [facility] Comment on above: Order Comment: PLEAS E SEND RESULTS TO [facility] CARTER ALSO Performed By: #### L 509.1000, L500.2500 ####[facility] [address] [place], [address] Chloride [Moles/Vol] 99 mmol/L Normal 98-[address] [facility] Comment on above: Order Comment: PLEAS E SEND RESULTS TO [facility] CARTER ALSO Performed By: #### L 509.1000, L500.2500 ####[facility] [address] [place], [address] CO2 [Moles/Vol] 26.8 mmol/L Normal 21.0-32.0 [facility] Comment on above: Order Comment: PLEAS E SEND RESULTS TO [facility] CARTER ALSO Performed By: #### L 509.1000, L500.2500 ####[facility] [address] [place], [address] Creatinine [Mass/Vol] 2.00 mg/dL High 0.70-1.20 [facility] Comment on above: Order Comment: PLEAS E SEND RESULTS TO LESAFelip[facility] CARTER ALSO Performed By: #### L 509.1000, L500.2500 ####[facility] [address] [place], [address] GAP 13 Normal 5-15 [facility] Comment on above: Order Comment: PLEAS E SEND RESULTS TO [facility] CARTER ALSO Performed By: #### L 509.1000, L500.2500 ####[facility] [address] [place], [address] GFR/1.73 sq M.predicted among non-blacks MDRD (S/P/Bld) [Vol rate/Area] 28 mL/min/{1.73_m2} Low >60 [facility] Comment on above: Order Comment: PLEAS E SEND RESULTS TO [facility] ALSO Result Comment: mL/m in/1.73m2 CKD-EPI Creatinine Equation (2020) Performed By: #### L 509.1000, L500.2500 ####[facility] [address] [place], [address] Glucose [Mass/Vol] 135 mg/dL High 70-99 [facility] Comment on above: Order Comment: PLEAS E SEND RESULTS TO [facility] CARTER ALSO Performed By: #### L 509.1000, L500.2500 ####[facility] [address] [place], [address] Potassium [Moles/Vol] 3.7 mmol/L Normal 3.3-5.1 [facility] Comment on above: Order Comment: PLEAS E SEND RESULTS TO [facility] ALSO Performed By: #### L 509.1000, L500.2500 ####[facility] [address] [place], [address] Sodium [Moles/Vol] 139 mmol/L Normal 133-145 [facility] Comment on above: Order Comment: PLEAS E SEND RESULTS TO [facility]A CARTER ALSO Performed By: #### L 509.1000, L500.2500 ####[facility] [address] [place], [address] Urea nitrogen [Mass/Vol] 24 mg/dL High 4-19 [facility] Comment on above: Order Comment: PLEAS E SEND RESULTS TO [facility]A [facility] ALSO Performed By: #### L 509.1000, L500.2500 ####[facility] [address] [place], [address] PTHINon 07-28-2024 PTH 4 pg/mL Low 11-61 [facility] Comment on above: Order Comment: PLEAS E SEND RESULTS TO [facility] ALSO Performed By: #### L 509.1000, L500.2500 ####[facility] [address] [place], [address] MR/BMS.BPon 07-17-2024 MR/BMS.BP Normal [facility] Endocrinology Visit Reporton 06-05-2024 Endocrinology Visit Report Normal [facility] [id number] 05-26-2024 [facility] Misc. COMMENT Normal . [facility] Comment on above: Order Comment: GREEN /PLASMA/ PROTECT FROM LIGHT/[id number] C Result Comment: Test Ordered: [id number] Vitamin CTest(s) [id number] Cwas developed and its performance characteristicsdetermined by [facility]. It has not been cleared or approvedby the Food and Drug Administration.Vitamin C 0.3 [L ] mg/dL Reference Range: 0.4-2.0Vitamin C deficiency is generally defined as plasmaconcentrations less than 0.2 mg/dL and levels between0.2 and 0.4 mg/dL are considered low.Performed at: [address] [id number] Director: Devan Valero MD, Phone: [phone] at: [facility] [address] [place], [place] [id number] Director: Luke Weber PhD, Phone: [phone] Performed By: #### L 3410.9998 ####[facility] [address] [place], [address] Basic Metabolic Profile (BMP )on 05-23-2024 BUN Normal 4-19 [facility] Comment on above: Result Comment: CMP ORDERED BY DR. DAVIES Performed By: #### L 500.2500 ####[facility] [address] [place], [address] BUN/CRE Normal 10-20 [facility] Comment on above: Result Comment: CMP ORDERED BY DR. DAVIES Performed By: #### L 500.2500 ####[facility] [address] [place], [address] Calcium Normal 7.6-11.0 [facility] Comment on above: Result Comment: CMP ORDERED BY DR. DAVIES Performed By: #### L 500.2500 ####[facility] [address] [place], [address] CL Normal 98-108 [facility] Comment on above: Result Comment: CMP ORDERED BY DR. DAVIES Performed By: #### L 500.2500 ####[facility] [address] [place], [address] CO2 Normal 21.0-32.0 [facility] Comment on above: Result Comment: CMP ORDERED BY DR. DAVIES Performed By: #### L 500.2500 ####[facility] [address] [place], [address] CREAT,SERUM Normal 0.70-1.20 [facility] Comment on above: Result Comment: CMP ORDERED BY DR. DAVIES Performed By: #### L 500.2500 ####[facility] [address] [place], [address] eGFR Normal >60 [facility] Comment on above: Result Comment: CMP ORDERED BY DR. DAVIES Performed By: #### L 500.2500 ####[facility] [address] [place], [address] GAP Normal 5-15 [facility] Comment on above: Result Comment: CMP ORDERED BY DR. DAVIES Performed By: #### L 500.2500 ####[facility] [address] [place], [address] GLU Normal 70-99 [facility] Comment on above: Result Comment: CMP ORDERED BY DR. DAVIES Performed By: #### L 500.2500 ####[facility] [address] [place], [address] Potassium Normal 3.3-5.1 [facility] Comment on above: Result Comment: CMP ORDERED BY DR. DAVIES Performed By: #### L 500.2500 ####[facility] [address] [place], [address] Basic Metabolic Profile (BMP) Normal 133-145 [facility] Comment on above: Result Comment: CMP ORDERED BY DR. DAVIES Performed By: #### L 500.2500 ####[facility] [address] [place], [address] Comprehensive Metabolic Prof ilon 05-23-2024 Albumin [Mass/Vol] 4.0 g/dL Normal 3.5-5.0 [facility] Comment on above: Performed By: #### L 500.4050 ####[facility] [address] [place], [address] Albumin/Globulin [Mass ratio] 1.1 {ratio} Normal 0.9-2.4 [facility] Comment on above: Performed By: #### L 500.4050 ####[facility] [address] [place], [address] ALK PHOS 129 U/L High 35-104 [facility] Comment on above: Performed By: #### L 500.4050 ####[facility] [address] [place], [address] ALT [Catalytic activity/Vol] 22 U/L Normal <=34 [facility] Comment on above: Performed By: #### L 500.4050 ####[facility] [address] [place], [address] AST [Catalytic activity/Vol] 24 U/L Normal <=31 [facility] Comment on above: Performed By: #### L 500.4050 ####[facility] [address] [place], [address] Bilirubin [Mass/Vol] 0.37 mg/dL Normal 0.00-1.[address] [facility] Comment on above: Performed By: #### L 500.4050 ####[facility] [address] [place], [address] BUN/CRE 11.9 RATIO Normal 10-20 [facility] Comment on above: Performed By: #### L 500.4050 ####[facility] [address] [place], [address] Calcium [Mass/Vol] 9.1 mg/dL Normal 7.6-11.0 [facility] Comment on above: Performed By: #### L 500.4050 ####[facility] [address] [place], [address] Chloride [Moles/Vol] 102 mmol/L Normal 98-[address] [facility] Comment on above: Performed By: #### L 500.4050 ####[facility] [address] [place], [address] CO2 [Moles/Vol] 24.9 mmol/L Normal 21.0-32.0 [facility] Comment on above: Performed By: #### L 500.4050 ####[facility] [address] [place], [address] Creatinine [Mass/Vol] 1.61 mg/dL High 0.70-1.20 [facility] Comment on above: Performed By: #### L 500.4050 ####[facility] [address] [place], [address] GAP 14 Normal 5-15 [facility] Comment on above: Performed By: #### L 500.4050 ####[facility] [address] [place], [address] GFR/1.73 sq M.predicted among non-blacks MDRD (S/P/Bld) [Vol rate/Area] 37 mL/min/{1.73_m2} Low >60 [facility] Comment on above: Result Comment: mL/m in/1.73m2 CKD-EPI Creatinine Equation (2020) Performed By: #### L 500.4050 ####[facility] [address] [place], [address] Globulin (S) [Mass/Vol] 3.5 g/dL Normal 2.2-4.2 [facility] Comment on above: Performed By: #### L 500.4050 ####[facility] [address] [place], [address] Glucose [Mass/Vol] 82 mg/dL Normal 70-99 [facility] Comment on above: Performed By: #### L 500.4050 ####[facility] [address] [place], [address] Potassium [Moles/Vol] 4.5 mmol/L Normal 3.3-5.1 [facility] Comment on above: Performed By: #### L 500.4050 ####[facility] [address] [place], [address] Sodium [Moles/Vol] 140 mmol/L Normal 133-145 [facility] Comment on above: Performed By: #### L 500.4050 ####[facility] [address] [place], [address] T PROT 7.5 g/dL Normal 5.9-8.4 [facility] Comment on above: Performed By: #### L 500.4050 ####[facility] [address] [place], [address] Urea nitrogen [Mass/Vol] 19 mg/dL Normal 4-19 [facility] Comment on above: Performed By: #### L 500.4050 ####[facility] [address] [place], [address] Internal Medicine Office Vis iton 05-22-2024 Internal Medicine Office Visit Normal [facility] Vitamin D 1,25-Dihydroxyon 0 05-19-2024 VIT D 1,25 DIHY 40.2 pg/mL Normal 24.8-81.5 [facility] Comment on above: Result Comment: Perf ormed at: - [facility] [id number] Director: Devan Valero MD, Phone: [phone] Performed By: #### L 0024.2318 ####[facility] [address] [place], [address] Basic Metabolic Profile (BMP )on 05-18-2024 BUN/CRE 7.6 RATIO Low 10-20 [facility] Comment on above: Performed By: #### L 100.0100, L500.2500 ####[facility] [address] [place], [address] Calcium [Mass/Vol] 10.4 mg/dL Normal 7.6-11.0 [facility] Comment on above: Performed By: #### L 100.0100, L500.2500 ####[facility] [address] [place], [address] Chloride [Moles/Vol] 105 mmol/L Normal 98-[address] [facility] Comment on above: Performed By: #### L 100.0100, L500.2500 ####[facility] [address] [place], [address] CO2 [Moles/Vol] 25.3 mmol/L Normal 21.0-32.0 [facility] Comment on above: Performed By: #### L 100.0100, L500.2500 ####[facility] [address] [place], [address] Creatinine [Mass/Vol] 1.60 mg/dL High 0.70-1.20 [facility] Comment on above: Performed By: #### L 100.0100, L500.2500 ####[facility] [address] [place], [address] ECRCL 52.86 ml/min Normal 50-250 [facility] Comment on above: Performed By: #### L 100.0100, L500.2500 ####[facility] [address] [place], [address] GAP 10 Normal 5-15 [facility] Comment on above: Performed By: #### L 100.0100, L500.2500 ####[facility] [address] [place], [address] GFR/1.73 sq M.predicted among non-blacks MDRD (S/P/Bld) [Vol rate/Area] 37 mL/min/{1.73_m2} Low >60 [facility] Comment on above: Result Comment: mL/m in/1.73m2 CKD-EPI Creatinine Equation (2020) Performed By: #### L 100.0100, L500.2500 ####[facility] [address] [place], [address] Glucose [Mass/Vol] 82 mg/dL Normal 70-99 [facility] Comment on above: Performed By: #### L 100.0100, L500.2500 ####[facility] [address] [place], [address] Potassium [Moles/Vol] 3.3 mmol/L Normal 3.3-5.1 [facility] Comment on above: Performed By: #### L 100.0100, L500.2500 ####[facility] [address] [place], [address] Sodium [Moles/Vol] 140 mmol/L Normal 133-145 [facility] Comment on above: Performed By: #### L 100.0100, L500.2500 ####[facility] [address] [place], [address] Urea nitrogen [Mass/Vol] 12 mg/dL Normal 4-19 [facility] Comment on above: Performed By: #### L 100.0100, L500.2500 ####[facility] [address] [place], [address] CBC W/Diff, Automatedon 03-03 10-2024 Absolute Lymph 3.00 X10 3/uL Normal 0.83-4.51 [facility] Comment on above: Performed By: #### L 100.0100, L500.2500 ####[facility] [address] [place], [address] Absolute Neut 2.1 X10 3/uL Normal 2.0-7.7 [facility] Comment on above: Performed By: #### L 100.0100, L500.2500 ####[facility] [address] [place], [address] Basophils/100 WBC (Bld) 1.0 % Normal 0-1 [facility] Comment on above: Performed By: #### L 100.0100, L500.2500 ####[facility] [address] [place], [address] Eosinophils/100 WBC (Bld) 7.5 % High 0-5 [facility] Comment on above: Performed By: #### L 100.0100, L500.2500 ####[facility] [address] [place], [address] Erythrocyte distribution width (RBC) [Ratio] 19.4 % High 11.6-14.6 [facility] Comment on above: Performed By: #### L 100.0100, L500.2500 ####[facility] [address] [place], [address] Hematocrit (Bld) [Volume fraction] 34.2 % Low 37-47 [facility] Comment on above: Performed By: #### L 100.0100, L500.2500 ####[facility] [address] [place], [address] Hemoglobin (Bld) [Mass/Vol] 10.7 g/dL Low 12.0-15.0 [facility] Comment on above: Performed By: #### L 100.0100, L500.2500 ####[facility] [address] [place], [address] IG% 0.200 Normal 0.0-0.9 [facility] Comment on above: Result Comment: IG% - Immature Granulocytes (promyelocytes, myelocytes andmetamyelocytes) > 1% indicates that a LEFT SHIFT is Present. Performed By: #### L 100.0100, L500.2500 ####[facility] [address] [place], [address] Lymphocytes/100 WBC (Bld) 48.0 % High 19-41 [facility] Comment on above: Performed By: #### L 100.0100, L500.2500 ####[facility] [address] [place], [address] MCH (RBC) [Entitic mass] 24.3 pg Low 27.0-32.0 [facility] Comment on above: Performed By: #### L 100.0100, L500.2500 ####[facility] [address] [place], [address] MCHC (RBC) [Mass/Vol] 31.3 g/dL Low 32-36 [facility] Comment on above: Performed By: #### L 100.0100, L500.2500 ####[facility] [address] [place], [address] MCV (RBC) [Entitic vol] 77.7 fL Low 81-99 [facility] Comment on above: Performed By: #### L 100.0100, L500.2500 ####[facility] [address] [place], [address] Monocytes/100 WBC (Bld) 9.9 % Normal 0-10 [facility] Comment on above: Performed By: #### L 100.0100, L500.2500 ####[facility] [address] [place], [address] Neutrophils/100 WBC (Bld) 33.4 % Low 47-70 [facility] Comment on above: Performed By: #### L 100.0100, L500.2500 ####[facility] [address] [place], [address] Nucleated RBC (Bld) [#/Vol] 0 10*3/uL Normal 0-5 [facility] Comment on above: Performed By: #### L 100.0100, L500.2500 ####[facility] [address] [place], [address] Platelet mean volume (Bld) [Entitic vol] 11.0 fL Normal 6.2-12.0 [facility] Comment on above: Performed By: #### L 100.0100, L500.2500 ####[facility] [address] [place], [address] Platelets (Bld) [#/Vol] 320 10*3/uL Normal 150-450 [facility] Comment on above: Performed By: #### L 100.0100, L500.2500 ####[facility] [address] [place], [address] RBC (Bld) [#/Vol] 4.40 10*6/uL Normal 4.2-5.4 [facility] Comment on above: Performed By: #### L 100.0100, L500.2500 ####[facility] [address] [place], [address] RDW SD 55.1 fl High 35.1-43.9 [facility] Comment on above: Performed By: #### L 100.0100, L500.2500 ####[facility] [address] [place], [address] WBC (Bld) [#/Vol] 6.3 10*3/uL Normal 4.4-11.0 [facility] Comment on above: Performed By: #### L 100.0100, L500.2500 ####[facility] [address] [place], [address] Discharge Instructionon 05-06 Discharge Instruction Normal [facility] CBC W/Diff, Automatedon 05-06 Absolute Lymph 2.63 X10 3/uL Normal 0.83-4.51 [facility] Comment on above: Performed By: #### L 100.0100, L501.9520, L501.2300, L500.4050, L501.5200 ####[facility] [address] [place], [address] Absolute Neut 2.1 X10 3/uL Normal 2.0-7.7 [facility] Comment on above: Performed By: #### L 100.0100, L501.9520, L501.2300, L500.4050, L501.5200 ####[facility] [address] [place], [address] Basophils/100 WBC (Bld) 0.8 % Normal 0-1 [facility] Comment on above: Performed By: #### L 100.0100, L501.9520, L501.2300, L500.4050, L501.5200 ####[facility] [address] [place], [address] Eosinophils/100 WBC (Bld) 9.0 % High 0-5 [facility] Comment on above: Performed By: #### L 100.0100, L501.9520, L501.2300, L500.4050, L501.5200 ####[facility] [address] [place], [address] Erythrocyte distribution width (RBC) [Ratio] 19.1 % High 11.6-14.6 [facility] Comment on above: Performed By: #### L 100.0100, L501.9520, L501.2300, L500.4050, L501.5200 ####[facility] [address] [place], [address] Hematocrit (Bld) [Volume fraction] 33.7 % Low 37-47 [facility] Comment on above: Performed By: #### L 100.0100, L501.9520, L501.2300, L500.4050, L501.5200 ####[facility] [address] [place], [address] Hemoglobin (Bld) [Mass/Vol] 10.6 g/dL Low 12.0-15.0 [facility] Comment on above: Performed By: #### L 100.0100, L501.9520, L501.2300, L500.4050, L501.5200 ####[facility] [address] [place], [address] IG% 0.200 Normal 0.0-0.9 [facility] Comment on above: Result Comment: IG% - Immature Granulocytes (promyelocytes, myelocytes andmetamyelocytes) > 1% indicates that a LEFT SHIFT is Present. Performed By: #### L 100.0100, L501.9520, L501.2300, L500.4050, L501.5200 ####[facility] [address] [place], [address] Lymphocytes/100 WBC (Bld) 44.5 % High 19-41 [facility] Comment on above: Performed By: #### L 100.0100, L501.9520, L501.2300, L500.4050, L501.5200 ####[facility] [address] [place], [address] MCH (RBC) [Entitic mass] 24.3 pg Low 27.0-32.0 [facility] Comment on above: Performed By: #### L 100.0100, L501.9520, L501.2300, L500.4050, L501.5200 ####[facility] [address] [place], [address] MCHC (RBC) [Mass/Vol] 31.5 g/dL Low 32-36 [facility] Comment on above: Performed By: #### L 100.0100, L501.9520, L501.2300, L500.4050, L501.5200 ####[facility] [address] [place], [address] MCV (RBC) [Entitic vol] 77.3 fL Low 81-99 [facility] Comment on above: Performed By: #### L 100.0100, L501.9520, L501.2300, L500.4050, L501.5200 ####[facility] [address] [place], [address] Monocytes/100 WBC (Bld) 10.3 % High 0-10 [facility] Comment on above: Performed By: #### L 100.0100, L501.9520, L501.2300, L500.4050, L501.5200 ####[facility] [address] [place], [address] Neutrophils/100 WBC (Bld) 35.2 % Low 47-70 [facility] Comment on above: Performed By: #### L 100.0100, L501.9520, L501.2300, L500.4050, L501.5200 ####[facility] [address] [place], [address] Nucleated RBC (Bld) [#/Vol] 0 10*3/uL Normal 0-5 [facility] Comment on above: Performed By: #### L 100.0100, L501.9520, L501.2300, L500.4050, L501.5200 ####[facility] [address] [place], [address] Platelet mean volume (Bld) [Entitic vol] 11.0 fL Normal 6.2-12.0 [facility] Comment on above: Performed By: #### L 100.0100, L501.9520, L501.2300, L500.4050, L501.5200 ####[facility] [address] [place], [address] Platelets (Bld) [#/Vol] 358 10*3/uL Normal 150-450 [facility] Comment on above: Performed By: #### L 100.0100, L501.9520, L501.2300, L500.4050, L501.5200 ####[facility] [address] [place], [address] RBC (Bld) [#/Vol] 4.36 10*6/uL Normal 4.2-5.4 [facility] Comment on above: Performed By: #### L 100.0100, L501.9520, L501.2300, L500.4050, L501.5200 ####[facility] [address] [place], [address] RDW SD 53.2 fl High 35.1-43.9 [facility] Comment on above: Performed By: #### L 100.0100, L501.9520, L501.2300, L500.4050, L501.5200 ####[facility] [address] [place], [address] WBC (Bld) [#/Vol] 5.9 10*3/uL Normal 4.4-11.0 [facility] Comment on above: Performed By: #### L 100.0100, L501.9520, L501.2300, L500.4050, L501.5200 ####[facility] [address] [place], [address] Comprehensive Metabolic Prof coon 05-17-2024 Albumin [Mass/Vol] 3.0 g/dL Low 3.5-5.0 [facility] Comment on above: Performed By: #### L 100.0100, L501.9520, L501.2300, L500.4050, L501.5200 ####[facility] [address] [place], [address] Albumin/Globulin [Mass ratio] 1.2 {ratio} Normal 0.9-2.4 [facility] Comment on above: Performed By: #### L 100.0100, L501.9520, L501.2300, L500.4050, L501.5200 ####[facility] [address] [place], [address] ALK PHOS 145 U/L High 35-104 [facility] Comment on above: Performed By: #### L 100.0100, L501.9520, L501.2300, L500.4050, L501.5200 ####[facility] [address] [place], [address] ALT [Catalytic activity/Vol] 45 U/L High <=34 [facility] Comment on above: Performed By: #### L 100.0100, L501.9520, L501.2300, L500.4050, L501.5200 ####[facility] [address] [place], [address] AST [Catalytic activity/Vol] 41 U/L High <=31 [facility] Comment on above: Performed By: #### L 100.0100, L501.9520, L501.2300, L500.4050, L501.5200 ####[facility] [address] [place], [address] Bilirubin [Mass/Vol] 0.39 mg/dL Normal 0.00-1.[address] [facility] Comment on above: Performed By: #### L 100.0100, L501.9520, L501.2300, L500.4050, L501.5200 ####[facility] [address] [place], [address] BUN/CRE 7.6 RATIO Low 10-20 [facility] Comment on above: Performed By: #### L 100.0100, L501.9520, L501.2300, L500.4050, L501.5200 ####[facility] [address] [place], [address] Calcium [Mass/Vol] 11.5 mg/dL High 7.6-11.0 [facility] Comment on above: Performed By: #### L 100.0100, L501.9520, L501.2300, L500.4050, L501.5200 ####[facility] [address] [place], [address] Chloride [Moles/Vol] 102 mmol/L Normal 98-[address] [facility] Comment on above: Performed By: #### L 100.0100, L501.9520, L501.2300, L500.4050, L501.5200 ####[facility] [address] [place], [address] CO2 [Moles/Vol] 28.3 mmol/L Normal 21.0-32.0 [facility] Comment on above: Performed By: #### L 100.0100, L501.9520, L501.2300, L500.4050, L501.5200 ####[facility] [address] [place], [address] Creatinine [Mass/Vol] 1.55 mg/dL High 0.70-1.20 [facility] Comment on above: Performed By: #### L 100.0100, L501.9520, L501.2300, L500.4050, L501.5200 ####[facility] [address] [place], [address] ECRCL 54.51 ml/min Normal 50-250 [facility] Comment on above: Performed By: #### L 100.0100, L501.9520, L501.2300, L500.4050, L501.5200 ####[facility] [address] [place], [address] GAP 9 Normal 5-15 [facility] Comment on above: Performed By: #### L 100.0100, L501.9520, L501.2300, L500.4050, L501.5200 ####[facility] [address] [place], [address] GFR/1.73 sq M.predicted among non-blacks MDRD (S/P/Bld) [Vol rate/Area] 39 mL/min/{1.73_m2} Low >60 [facility] Comment on above: Result Comment: mL/m in/1.73m2 CKD-EPI Creatinine Equation (2020) Performed By: #### L 100.0100, L501.9520, L501.2300, L500.4050, L501.5200 ####[facility] [address] [place], [address] Globulin (S) [Mass/Vol] 2.5 g/dL Normal 2.2-4.2 [facility] Comment on above: Performed By: #### L 100.0100, L501.9520, L501.2300, L500.4050, L501.5200 ####[facility] [address] [place], [address] Glucose [Mass/Vol] 83 mg/dL Normal 70-99 [facility] Comment on above: Performed By: #### L 100.0100, L501.9520, L501.2300, L500.4050, L501.5200 ####[facility] [address] [place], [address] Potassium [Moles/Vol] 3.1 mmol/L Low 3.3-5.1 [facility] Comment on above: Performed By: #### L 100.0100, L501.9520, L501.2300, L500.4050, L501.5200 ####[facility] [address] [place], [address] Sodium [Moles/Vol] 139 mmol/L Normal 133-145 [facility] Comment on above: Performed By: #### L 100.0100, L501.9520, L501.2300, L500.4050, L501.5200 ####[facility] [address] [place], [address] T PROT 5.6 g/dL Low 5.9-8.4 [facility] Comment on above: Performed By: #### L 100.0100, L501.9520, L501.2300, L500.4050, L501.5200 ####[facility] [address] [place], [address] Urea nitrogen [Mass/Vol] 12 mg/dL Normal 4-19 [facility] Comment on above: Performed By: #### L 100.0100, L501.9520, L501.2300, L500.4050, L501.5200 ####[facility] [address] [place], [address] L501.2276on 05-17-2024 Ionized Calcium 1.49 mmol/L High 1.09-1.30 [facility] Comment on above: Performed By: #### L 501.2276 ####[facility] [address] [place], [address] Ionized Calcium 1.65 mmol/L High 1.09-1.30 [facility] Comment on above: Performed By: #### L 501.2276 ####[facility] [address] [place], [address] Ionized Calcium 1.63 mmol/L High 1.09-1.30 [facility] Comment on above: Performed By: #### L 501.2276 ####[facility] [address] [place], [address] Ionized Calcium 1.66 mmol/L High 1.09-1.30 [facility] Comment on above: Performed By: #### L 501.2276 ####[facility] [address] [place], [address] Ionized Calcium 1.59 mmol/L High 1.09-1.30 [facility] Comment on above: Performed By: #### L 501.2276 ####[facility] [address] [place], [address] Magnesiumon 05-17-2024 Magnesium [Mass/Vol] 1.8 mg/dL Normal 1.5-2.[address] [facility] Comment on above: Performed By: #### L 100.0100, L501.9520, L501.2300, L500.4050, L501.5200 ####[facility] [address] [place], [address] Phosphoruson 05-17-2024 Phosphate [Mass/Vol] 3.0 mg/dL Normal 2.7-4.[address] [facility] Comment on above: Performed By: #### L 100.0100, L501.9520, L501.2300, L500.4050, L501.5200 ####[facility] [address] [place], [address] Thyroid Stim Hormone (TSH)on 05-17-2024 TSH 0.697 uIU/mL Normal 0.300-4.200 [facility] Comment on above: Performed By: #### L 100.0100, L501.9520, L501.2300, L500.4050, L501.5200 ####[facility] [address] [place], [address] 12 Lead EKGon 05-16-2024 12 Lead EKG Normal [facility] CBC W/Diff, Automatedon 05-06 Absolute Lymph 1.42 X10 3/uL Normal 0.83-4.51 [facility] Comment on above: Performed By: #### L 100.0100, L506.0400, L501.28415, L500.4050, L501.9520 ####[facility] [address] [place], [address] Absolute Neut 3.5 X10 3/uL Normal 2.0-7.7 [facility] Comment on above: Performed By: #### L 100.0100, L506.0400, L501.84864, L500.4050, L501.9520 ####[facility] [address] [place], [address] Basophils/100 WBC (Bld) 0.5 % Normal 0-1 [facility] Comment on above: Performed By: #### L 100.0100, L506.0400, L501.25233, L500.4050, L501.9520 ####[facility] [address] [place], [address] Eosinophils/100 WBC (Bld) 4.9 % Normal 0-5 [facility] Comment on above: Performed By: #### L 100.0100, L506.0400, L501.78075, L500.4050, L501.9520 ####[facility] [address] [place], [address] Erythrocyte distribution width (RBC) [Ratio] 19.4 % High 11.6-14.6 [facility] Comment on above: Performed By: #### L 100.0100, L506.0400, L501.66107, L500.4050, L501.9520 ####[facility] [address] [place], [address] Hematocrit (Bld) [Volume fraction] 39.9 % Normal 37-47 [facility] Comment on above: Performed By: #### L 100.0100, L506.0400, L501.51087, L500.4050, L501.9520 ####[facility] [address] [place], [address] Hemoglobin (Bld) [Mass/Vol] 12.7 g/dL Normal 12.0-15.0 [facility] Comment on above: Performed By: #### L 100.0100, L506.0400, L501.47681, L500.4050, L501.9520 ####[facility] [address] [place], [address] IG% 0.000 Normal 0.0-0.9 [facility] Comment on above: Result Comment: IG% - Immature Granulocytes (promyelocytes, myelocytes andmetamyelocytes) > 1% indicates that a LEFT SHIFT is Present. Performed By: #### L 100.0100, L506.0400, L501.40409, L500.4050, L501.9520 ####[facility] [address] [place], [address] Lymphocytes/100 WBC (Bld) 24.6 % Normal 19-41 [facility] Comment on above: Performed By: #### L 100.0100, L506.0400, L501.54982, L500.4050, L501.9520 ####[facility] [address] [place], [address] MCH (RBC) [Entitic mass] 24.5 pg Low 27.0-32.0 [facility] Comment on above: Performed By: #### L 100.0100, L506.0400, L501.35778, L500.4050, L501.9520 ####[facility] [address] [place], [address] MCHC (RBC) [Mass/Vol] 31.8 g/dL Low 32-36 [facility] Comment on above: Performed By: #### L 100.0100, L506.0400, L501.07391, L500.4050, L501.9520 ####[facility] [address] [place], [address] MCV (RBC) [Entitic vol] 77.0 fL Low 81-99 [facility] Comment on above: Performed By: #### L 100.0100, L506.0400, L501.56424, L500.4050, L501.9520 ####[facility] [address] [place], [address] Monocytes/100 WBC (Bld) 8.8 % Normal 0-10 [facility] Comment on above: Performed By: #### L 100.0100, L506.0400, L501.52463, L500.4050, L501.9520 ####[facility] [address] [place], [address] Neutrophils/100 WBC (Bld) 61.2 % Normal 47-70 [facility] Comment on above: Performed By: #### L 100.0100, L506.0400, L501.68153, L500.4050, L501.9520 ####[facility] [address] [place], [address] Nucleated RBC (Bld) [#/Vol] 0 10*3/uL Normal 0-5 [facility] Comment on above: Performed By: #### L 100.0100, L506.0400, L501.24025, L500.4050, L501.9520 ####[facility] [address] [place], [address] Platelet mean volume (Bld) [Entitic vol] 10.3 fL Normal 6.2-12.0 [facility] Comment on above: Performed By: #### L 100.0100, L506.0400, L501.00762, L500.4050, L501.9520 ####[facility] [address] [place], [address] Platelets (Bld) [#/Vol] 387 10*3/uL Normal 150-450 [facility] Comment on above: Performed By: #### L 100.0100, L506.0400, L501.61695, L500.4050, L501.9520 ####[facility] [address] [place], [address] RBC (Bld) [#/Vol] 5.18 10*6/uL Normal 4.2-5.4 [facility] Comment on above: Performed By: #### L 100.0100, L506.0400, L501.39906, L500.4050, L501.9520 ####[facility] [address] [place], [address] RDW SD 52.1 fl High 35.1-43.9 [facility] Comment on above: Performed By: #### L 100.0100, L506.0400, L501.19982, L500.4050, L501.9520 ####[facility] [address] [place], [address] WBC (Bld) [#/Vol] 5.8 10*3/uL Normal 4.4-11.0 [facility] Comment on above: Performed By: #### L 100.0100, L506.0400, L501.00692, L500.4050, L501.9520 ####[facility] [address] [place], [address] Chest PA and Lateralon 05-16 Chest PA and Lateral Normal [facility] Comprehensive Metabolic Prof ilon 05-16-2024 Albumin [Mass/Vol] 3.8 g/dL Normal 3.5-5.0 [facility] Comment on above: Performed By: #### L 100.0100, L506.0400, L501.69109, L500.4050, L501.9520 ####[facility] [address] [place], [address] Albumin/Globulin [Mass ratio] 1.2 {ratio} Normal 0.9-2.4 [facility] Comment on above: Performed By: #### L 100.0100, L506.0400, L501.53952, L500.4050, L501.9520 ####[facility] [address] [place], [address] ALK PHOS 203 U/L High 35-104 [facility] Comment on above: Performed By: #### L 100.0100, L506.0400, L501.13355, L500.4050, L501.9520 ####[facility] [address] [place], [address] ALT [Catalytic activity/Vol] 72 U/L High <=34 [facility] Comment on above: Performed By: #### L 100.0100, L506.0400, L501.73350, L500.4050, L501.9520 ####[facility] [address] [place], [address] AST [Catalytic activity/Vol] 90 U/L High <=31 [facility] Comment on above: Performed By: #### L 100.0100, L506.0400, L501.04545, L500.4050, L501.9520 ####[facility] [address] [place], [address] Bilirubin [Mass/Vol] 0.63 mg/dL Normal 0.00-1.[address] [facility] Comment on above: Performed By: #### L 100.0100, L506.0400, L501.01300, L500.4050, L501.9520 ####[facility] [address] [place], [address] BUN/CRE 7.2 RATIO Low 10-20 [facility] Comment on above: Performed By: #### L 100.0100, L506.0400, L501.37043, L500.4050, L501.9520 ####[facility] [address] [place], [address] Calcium [Mass/Vol] 13.6 mg/dL Invalid Interpretation Code 7.6-11.0 [facility] Comment on above: Result Comment: Crit ical Result(s) Called at 05/16/2024-09:51 by Mahogany Longo??Results read back by same. Performed By: #### L 100.0100, L506.0400, L501.55419, L500.4050, L501.9520 ####[facility] [address] [place], [address] Chloride [Moles/Vol] 93 mmol/L Low 98-[address] [facility] Comment on above: Performed By: #### L 100.0100, L506.0400, L501.98784, L500.4050, L501.9520 ####[facility] [address] [place], [address] CO2 [Moles/Vol] 32.0 mmol/L Normal 21.0-32.0 [facility] Comment on above: Performed By: #### L 100.0100, L506.0400, L501.14832, L500.4050, L501.9520 ####[facility] [address] [place], [address] Creatinine [Mass/Vol] 1.83 mg/dL High 0.70-1.20 [facility] Comment on above: Performed By: #### L 100.0100, L506.0400, L501.87964, L500.4050, L501.9520 ####[facility] [address] [place], [address] ECRCL 46.61 ml/min Low 50-250 [facility] Comment on above: Performed By: #### L 100.0100, L506.0400, L501.87498, L500.4050, L501.9520 ####[facility] [address] [place], [address] GAP 12 Normal 5-15 [facility] Comment on above: Performed By: #### L 100.0100, L506.0400, L501.99999, L500.4050, L501.9520 ####[facility] [address] [place], [address] GFR/1.73 sq M.predicted among non-blacks MDRD (S/P/Bld) [Vol rate/Area] 32 mL/min/{1.73_m2} Low >60 [facility] Comment on above: Result Comment: mL/m in/1.73m2 CKD-EPI Creatinine Equation (2020) Performed By: #### L 100.0100, L506.0400, L501.93148, L500.4050, L501.9520 ####[facility] [address] [place], [address] Globulin (S) [Mass/Vol] 3.2 g/dL Normal 2.2-4.2 [facility] Comment on above: Performed By: #### L 100.0100, L506.0400, L501.81066, L500.4050, L501.9520 ####[facility] [address] [place], [address] Glucose [Mass/Vol] 124 mg/dL High 70-99 [facility] Comment on above: Performed By: #### L 100.0100, L506.0400, L501.81453, L500.4050, L501.9520 ####[facility] [address] [place], [address] Potassium [Moles/Vol] 2.5 mmol/L Invalid Interpretation Code 3.3-5.1 [facility] Comment on above: Result Comment: Crit ical Result(s) Called at 05/16/2024-09:51 by Mahogany Longo??Results read back by same. Performed By: #### L 100.0100, L506.0400, L501.26360, L500.4050, L501.9520 ####[facility] [address] [place], [address] Sodium [Moles/Vol] 137 mmol/L Normal 133-145 [facility] Comment on above: Performed By: #### L 100.0100, L506.0400, L501.60099, L500.4050, L501.9520 ####[facility] [address] [place], [address] T PROT 7.0 g/dL Normal 5.9-8.4 [facility] Comment on above: Performed By: #### L 100.0100, L506.0400, L501.35358, L500.4050, L501.9520 ####[facility] [address] [place], [address] Urea nitrogen [Mass/Vol] 13 mg/dL Normal 4-19 [facility] Comment on above: Performed By: #### L 100.0100, L506.0400, L501.75300, L500.4050, L501.9520 ####[facility] [address] [place], [address] Emergency Department Summary on 05-16-2024 Emergency Department Summary Normal [facility] Free T3on 05-16-2024 Free T3 [Mass/Vol] 2.9 pg/mL Normal 2.18-3.98 [facility] Comment on above: Performed By: #### L 100.0100, L506.0400, L501.59288, L500.4050, L501.9520 ####[facility] [address] [place], [address] H AND P Exam - Hospitaliston 05-16-2024 H&P Exam - Hospitalist Normal [facility] L501.2276on 05-16-2024 Ionized Calcium 1.75 mmol/L High 1.09-1.30 [facility] Comment on above: Performed By: #### L 501.2276 ####[facility] [address] [place], [address] L506.1001on 05-16-2024 Vitamin D 25-OH 38.2 ng/mL Normal 30-100 [facility] Comment on above: Result Comment: Carol min D StatusDeficiency: <20 ng/mL (50nmol/L)Insufficiency: 20-30 ng/mL (50-75 nmol/L)Sufficiency: 30-100 ng/mL (75-250 nmol/L)Toxicity: >100 ng/mL (>250 nmol/L) Performed By: #### L 501.5200, L506.1001 ####[facility] [address] [place], [address] Magnesiumon 05-16-2024 Magnesium [Mass/Vol] 1.8 mg/dL Normal 1.5-2.[address] [facility] Comment on above: Performed By: #### L 501.5200, L506.1001 ####[facility] [address] [place], [address] PTHINon 05-16-2024 PTH 4 pg/mL Low 11-61 [facility] Comment on above: Performed By: #### L 509.1000 ####[facility] [address] [place], [address] T4 Free Directon 05-16-2024 T4 FREE DIRECT 1.40 ng/dL Normal 0.76-1.46 [facility] Comment on above: Performed By: #### L 100.0100, L506.0400, L501.51639, L500.4050, L501.9520 ####[facility] [address] [place], [address] Thyroid Stim Hormone (TSH)on 05-16-2024 TSH 0.661 uIU/mL Normal 0.300-4.200 [facility] Comment on above: Performed By: #### L 100.0100, L506.0400, L501.59668, L500.4050, L501.9520 ####[facility] [address] [place], [address] Urinalysis, Completeon 05-16 Mucus Ql (Urine sed) RARE Normal [facility] Comment on above: Order Comment: CLEAN CATCH Performed By: #### L 400.0001 ####[facility] [address] [place], [address] BACTERIA 1+ /hpf Normal None Seen [facility] Comment on above: Order Comment: CLEAN CATCH Performed By: #### L 400.0001 ####[facility] [address] [place], [address] EPI,SQUAMOUS 0-5 SEEN Normal 5-10 [facility] Comment on above: Order Comment: CLEAN CATCH Performed By: #### L 400.0001 ####[facility] [address] [place], [address] RBC 0-5 SEEN Normal 0-5 [facility] Comment on above: Order Comment: CLEAN CATCH Performed By: #### L 400.0001 ####[facility] [address] [place], [address] WBC 0-5 SEEN Normal 0-5 [facility] Comment on above: Order Comment: CLEAN CATCH Performed By: #### L 400.0001 ####[facility] [address] [place], [address] MR/BMS.BPon 05-08-2024 MR/BMS.BP Normal [facility] Brain without Contraston Brain without Contrast Normal [facility] MR/BMS.BPon 04-13-2024 MR/BMS.BP Normal [facility] CBC W/Diff, Automatedon 01-3 Anisocytosis Ql (Bld) 1+ Normal [facility] Comment on above: Performed By: #### L 501.5200, L503.6150, L100.0100, L501.3620, L500.4050, L501.9520 ####[facility] [address] [place], [address] HYPOCHROMASIA 1+ Normal [facility] Comment on above: Performed By: #### L 501.5200, L503.6150, L100.0100, L501.3620, L500.4050, L501.9520 ####[facility] [address] [place], [address] TARGET CELLS RARE Normal [facility] Comment on above: Performed By: #### L 501.5200, L503.6150, L100.0100, L501.3620, L500.4050, L501.9520 ####[facility] [address] [place], [address] PLT EST ADEQUATE Normal ADEQ [facility] Comment on above: Performed By: #### L 501.5200, L503.6150, L100.0100, L501.3620, L500.4050, L501.9520 ####[facility] [address] [place], [address] SMEAR COMMENT SCANNED Normal [facility] Comment on above: Performed By: #### L 501.5200, L503.6150, L100.0100, L501.3620, L500.4050, L501.9520 ####[facility] [address] [place], [address] CPK Total, Creatine Kinaseon 04-07-2024 CPK TOTAL 202 U/L High 26-192 [facility] Comment on above: Performed By: #### L 501.5200, L503.6150, L100.0100, L501.3620, L500.4050, L501.9520 ####[facility] [address] [place], [address] Comprehensive Metabolic Prof coon 04-07-2024 Albumin [Mass/Vol] 3.3 g/dL Normal 3.2-5.0 [facility] Comment on above: Performed By: #### L 501.5200, L503.6150, L100.0100, L501.3620, L500.4050, L501.9520 ####[facility] [address] [place], [address] Albumin/Globulin [Mass ratio] 0.9 {ratio} Normal 0.9-2.4 [facility] Comment on above: Performed By: #### L 501.5200, L503.6150, L100.0100, L501.3620, L500.4050, L501.9520 ####[facility] [address] [place], [address] ALK P 110 U/L Normal 45-117 [facility] Comment on above: Performed By: #### L 501.5200, L503.6150, L100.0100, L501.3620, L500.4050, L501.9520 ####[facility] [address] [place], [address] ALT [Catalytic activity/Vol] 54 U/L Normal 13-56 [facility] Comment on above: Performed By: #### L 501.5200, L503.6150, L100.0100, L501.3620, L500.4050, L501.9520 ####[facility] [address] [place], [address] AST [Catalytic activity/Vol] 40 U/L High 15-37 [facility] Comment on above: Performed By: #### L 501.5200, L503.6150, L100.0100, L501.3620, L500.4050, L501.9520 ####[facility] [address] [place], [address] Bilirubin [Mass/Vol] 0.70 mg/dL Normal 0.20-1.[address] [facility] Comment on above: Result Comment: For patients on eltrombopag therapy, use of Dimension [place] TBIL is not recommended. Performed By: #### L 501.5200, L503.6150, L100.0100, L501.3620, L500.4050, L501.9520 ####[facility] [address] [place], [address] BUN/CRE 11.4 RATIO Normal 10-20 [facility] Comment on above: Performed By: #### L 501.5200, L503.6150, L100.0100, L501.3620, L500.4050, L501.9520 ####[facility] [address] [place], [address] CA,Total 9.8 mg/dL Normal 8.5-10.1 [facility] Comment on above: Performed By: #### L 501.5200, L503.6150, L100.0100, L501.3620, L500.4050, L501.9520 ####[facility] [address] [place], [address] Chloride [Moles/Vol] 101 mmol/L Normal 98-[address] [facility] Comment on above: Performed By: #### L 501.5200, L503.6150, L100.0100, L501.3620, L500.4050, L501.9520 ####[facility] [address] [place], [address] CO2 [Moles/Vol] 30.0 mmol/L Normal 21.0-32.0 [facility] Comment on above: Performed By: #### L 501.5200, L503.6150, L100.0100, L501.3620, L500.4050, L501.9520 ####[facility] [address] [place], [address] Creatinine [Mass/Vol] 1.14 mg/dL High 0.55-1.02 [facility] Comment on above: Result Comment: The validity of the calculated GFR GFRAA in patients over70 years has not been determined. Clinical correlation isessential. Performed By: #### L 501.5200, L503.6150, L100.0100, L501.3620, L500.4050, L501.9520 ####[facility] [address] [place], [address] EST GFR - AA 63 mL/min Normal >60 [facility] Comment on above: Result Comment: Afri can Ug[place] GFR Calc Performed By: #### L 501.5200, L503.6150, L100.0100, L501.3620, L500.4050, L501.9520 ####[facility] [address] [place], [address] GAP 8 Normal 5-15 [facility] Comment on above: Performed By: #### L 501.5200, L503.6150, L100.0100, L501.3620, L500.4050, L501.9520 ####[facility] [address] [place], [address] GFR/1.73 sq M.predicted among non-blacks MDRD (S/P/Bld) [Vol rate/Area] 52 mL/min/{1.73_m2} Low >60 [facility] Comment on above: Result Comment: Non- GFR Calc Performed By: #### L 501.5200, L503.6150, L100.0100, L501.3620, L500.4050, L501.9520 ####[facility] [address] [place], [address] Globulin (S) [Mass/Vol] 3.8 g/dL Normal 2.2-4.2 [facility] Comment on above: Performed By: #### L 501.5200, L503.6150, L100.0100, L501.3620, L500.4050, L501.9520 ####[facility] [address] [place], [address] Glucose [Mass/Vol] 98 mg/dL Normal 74-106 [facility] Comment on above: Performed By: #### L 501.5200, L503.6150, L100.0100, L501.3620, L500.4050, L501.9520 ####[facility] [address] [place], [address] Potassium [Moles/Vol] 3.1 mmol/L Low 3.5-5.1 [facility] Comment on above: Performed By: #### L 501.5200, L503.6150, L100.0100, L501.3620, L500.4050, L501.9520 ####[facility] [address] [place], [address] Sodium [Moles/Vol] 139 mmol/L Normal 136-145 [facility] Comment on above: Performed By: #### L 501.5200, L503.6150, L100.0100, L501.3620, L500.4050, L501.9520 ####[facility] [address] [place], [address] T PROT 7.1 g/dL Normal 6.4-8.2 [facility] Comment on above: Performed By: #### L 501.5200, L503.6150, L100.0100, L501.3620, L500.4050, L501.9520 ####[facility] [address] [place], [address] Urea nitrogen [Mass/Vol] 13 mg/dL Normal 7-18 [facility] Comment on above: Performed By: #### L 501.5200, L503.6150, L100.0100, L501.3620, L500.4050, L501.9520 ####[facility] [address] [place], [address] Internal Medicine Office Vis iton 04-07-2024 Internal Medicine Office Visit Normal [facility] Ironon 04-07-2024 Iron [Mass/Vol] 27 ug/dL Low 50-170 [facility] Comment on above: Performed By: #### L 501.5200, L503.6150, L100.0100, L501.3620, L500.4050, L501.9520 ####[facility] [address] [place], [address] Magnesiumon 04-07-2024 Magnesium [Mass/Vol] 2.1 mg/dL Normal 1.6-2.[address] [facility] Comment on above: Performed By: #### L 501.5200, L503.6150, L100.0100, L501.3620, L500.4050, L501.9520 ####[facility] [address] [place], [address] Thyroid Stim Hormone (TSH)on 04-07-2024 TSH 1.450 uIU/mL Normal 0.358-3.740 [facility] Comment on above: Performed By: #### L 501.5200, L503.6150, L100.0100, L501.3620, L500.4050, L501.9520 ####[facility] [address] [place], [address] Culture, Blood (WB)on 2024 CUB Blood cultures x2, f rom two different sites No growth in 5 days. Normal [facility] Comment on above: Performed By: #### L 503.6005, M200.1000, L509.7000 ####[facility] [address] [place], [address] Basic Metabolic Profile (BMP )on 04-03-2024 BUN Normal 7-18 [facility] Comment on above: Result Comment: Canc elled via OM: Order cancelled - Patient discharged Performed By: #### L 100.0100, L500.2500 ####[facility] [address] [place], [address] BUN/CRE Normal 10-20 [facility] Comment on above: Result Comment: Canc elled via OM: Order cancelled - Patient discharged Performed By: #### L 100.0100, L500.2500 ####[facility] [address] [place], [address] CA,Total Normal 8.5-10.1 [facility] Comment on above: Result Comment: Canc elled via OM: Order cancelled - Patient discharged Performed By: #### L 100.0100, L500.2500 ####[facility] [address] [place], [address] CL Normal 98-107 [facility] Comment on above: Result Comment: Canc elled via OM: Order cancelled - Patient discharged Performed By: #### L 100.0100, L500.2500 ####[facility] [address] [place], [address] CO2 Normal 21.0-32.0 [facility] Comment on above: Result Comment: Canc elled via OM: Order cancelled - Patient discharged Performed By: #### L 100.0100, L500.2500 ####[facility] [address] [place], [address] CREAT,SERUM Normal 0.55-1.02 [facility] Comment on above: Result Comment: Canc elled via OM: Order cancelled - Patient discharged Performed By: #### L 100.0100, L500.2500 ####[facility] [address] [place], [address] EST GFR Normal >60 [facility] Comment on above: Result Comment: Canc elled via OM: Order cancelled - Patient discharged Performed By: #### L 100.0100, L500.2500 ####[facility] [address] [place], [address] EST GFR - AA Normal >60 [facility] Comment on above: Result Comment: Canc elled via OM: Order cancelled - Patient discharged Performed By: #### L 100.0100, L500.2500 ####[facility] [address] [place], [address] GAP Normal 5-15 [facility] Comment on above: Result Comment: Canc elled via OM: Order cancelled - Patient discharged Performed By: #### L 100.0100, L500.2500 ####[facility] [address] [place], [address] GLU Normal 74-106 [facility] Comment on above: Result Comment: Canc elled via OM: Order cancelled - Patient discharged Performed By: #### L 100.0100, L500.2500 ####[facility] [address] [place], [address] Potassium Normal 3.5-5.1 [facility] Comment on above: Result Comment: Canc elled via OM: Order cancelled - Patient discharged Performed By: #### L 100.0100, L500.2500 ####[facility] [address] [place], [address] Basic Metabolic Profile (BMP) Normal 136-145 [facility] Comment on above: Result Comment: Canc elled via OM: Order cancelled - Patient discharged Performed By: #### L 100.0100, L500.2500 ####[facility] [address] [place], [address] CBC W/Diff, Automatedon 01-2 Absolute Neut Normal 2.0-7.7 [facility] Comment on above: Result Comment: Canc elled via OM: Order cancelled - Patient discharged Performed By: #### L 100.0100, L500.2500 ####[facility] [address] [place], [address] HCT Normal 37-47 [facility] Comment on above: Result Comment: Canc elled via OM: Order cancelled - Patient discharged Performed By: #### L 100.0100, L500.2500 ####[facility] [address] [place], [address] HGB Normal 12.0-15.0 [facility] Comment on above: Result Comment: Canc elled via OM: Order cancelled - Patient discharged Performed By: #### L 100.0100, L500.2500 ####[facility] [address] [place], [address] MCH Normal 27.0-32.0 [facility] Comment on above: Result Comment: Canc elled via OM: Order cancelled - Patient discharged Performed By: #### L 100.0100, L500.2500 ####[facility] [address] [place], [address] MCHC Normal 32-36 [facility] Comment on above: Result Comment: Canc elled via OM: Order cancelled - Patient discharged Performed By: #### L 100.0100, L500.2500 ####[facility] [address] [place], [address] MCV Normal 81-99 [facility] Comment on above: Result Comment: Canc elled via OM: Order cancelled - Patient discharged Performed By: #### L 100.0100, L500.2500 ####[facility] [address] [place], [address] NEUT% Normal 47-70 [facility] Comment on above: Result Comment: Canc elled via OM: Order cancelled - Patient discharged Performed By: #### L 100.0100, L500.2500 ####[facility] [address] [place], [address] PLT Normal 150-450 [facility] Comment on above: Result Comment: Canc elled via OM: Order cancelled - Patient discharged Performed By: #### L 100.0100, L500.2500 ####[facility] [address] [place], [address] RBC Normal 4.2-5.4 [facility] Comment on above: Result Comment: Canc elled via OM: Order cancelled - Patient discharged Performed By: #### L 100.0100, L500.2500 ####[facility] [address] [place], [address] RDW CV Normal 11.6-14.6 [facility] Comment on above: Result Comment: Canc elled via OM: Order cancelled - Patient discharged Performed By: #### L 100.0100, L500.2500 ####[facility] [address] [place], [address] RDW SD Normal 35.1-43.9 [facility] Comment on above: Result Comment: Canc elled via OM: Order cancelled - Patient discharged Performed By: #### L 100.0100, L500.2500 ####[facility] [address] [place], [address] WBC Normal 4.4-11.0 [facility] Comment on above: Result Comment: Canc elled via OM: Order cancelled - Patient discharged Performed By: #### L 100.0100, L500.2500 ####[facility] [address] [place], [address] Basic Metabolic Profile (BMP )on 04-02-2024 BUN Normal 7-18 [facility] Comment on above: Result Comment: Canc elled via OM: Order cancelled - Patient discharged Performed By: #### L 100.0100, L500.2500 ####[facility] [address] [place], [address] BUN/CRE Normal 10-20 [facility] Comment on above: Result Comment: Canc elled via OM: Order cancelled - Patient discharged Performed By: #### L 100.0100, L500.2500 ####[facility] [address] [place], [address] CA,Total Normal 8.5-10.1 [facility] Comment on above: Result Comment: Canc elled via OM: Order cancelled - Patient discharged Performed By: #### L 100.0100, L500.2500 ####[facility] [address] [place], [address] CL Normal 98-107 [facility] Comment on above: Result Comment: Canc elled via OM: Order cancelled - Patient discharged Performed By: #### L 100.0100, L500.2500 ####[facility] [address] [place], [address] CO2 Normal 21.0-32.0 [facility] Comment on above: Result Comment: Canc elled via OM: Order cancelled - Patient discharged Performed By: #### L 100.0100, L500.2500 ####[facility] [address] [place], [address] CREAT,SERUM Normal 0.55-1.02 [facility] Comment on above: Result Comment: Canc elled via OM: Order cancelled - Patient discharged Performed By: #### L 100.0100, L500.2500 ####[facility] [address] [place], [address] EST GFR Normal >60 [facility] Comment on above: Result Comment: Canc elled via OM: Order cancelled - Patient discharged Performed By: #### L 100.0100, L500.2500 ####[facility] [address] [place], [address] EST GFR - AA Normal >60 [facility] Comment on above: Result Comment: Canc elled via OM: Order cancelled - Patient discharged Performed By: #### L 100.0100, L500.2500 ####[facility] [address] [place], [address] GAP Normal 5-15 [facility] Comment on above: Result Comment: Canc elled via OM: Order cancelled - Patient discharged Performed By: #### L 100.0100, L500.2500 ####[facility] [address] [place], [address] GLU Normal 74-106 [facility] Comment on above: Result Comment: Canc elled via OM: Order cancelled - Patient discharged Performed By: #### L 100.0100, L500.2500 ####[facility] [address] [place], [address] Potassium Normal 3.5-5.1 [facility] Comment on above: Result Comment: Canc elled via OM: Order cancelled - Patient discharged Performed By: #### L 100.0100, L500.2500 ####[facility] [address] [place], [address] Basic Metabolic Profile (BMP) Normal 136-145 [facility] Comment on above: Result Comment: Canc elled via OM: Order cancelled - Patient discharged Performed By: #### L 100.0100, L500.2500 ####[facility] [address] [place], [address] CBC W/Diff, Automatedon 01-2 Anisocytosis Ql (Bld) 2+ Normal [facility] Comment on above: Performed By: #### L 500.4050, L503.6005, L100.0100 ####[facility] [address] [place], [address] PLT EST ADEQUATE Normal ADEQ [facility] Comment on above: Performed By: #### L 500.4050, L503.6005, L100.0100 ####[facility] [address] [place], [address] SMEAR COMMENT SCANNED Normal [facility] Comment on above: Performed By: #### L 500.4050, L503.6005, L100.0100 ####[facility] [address] [place], [address] TARGET CELLS 1+ Normal [facility] Comment on above: Performed By: #### L 500.4050, L503.6005, L100.0100 ####[facility] [address] [place], [address] Absolute Neut Normal 2.0-7.7 [facility] Comment on above: Result Comment: Canc elled via OM: Order cancelled - Patient discharged Performed By: #### L 100.0100, L500.2500 ####[facility] [address] [place], [address] HCT Normal 37-47 [facility] Comment on above: Result Comment: Canc elled via OM: Order cancelled - Patient discharged Performed By: #### L 100.0100, L500.2500 ####[facility] [address] [place], [address] HGB Normal 12.0-15.0 [facility] Comment on above: Result Comment: Canc elled via OM: Order cancelled - Patient discharged Performed By: #### L 100.0100, L500.2500 ####[facility] [address] [place], [address] MCH Normal 27.0-32.0 [facility] Comment on above: Result Comment: Canc elled via OM: Order cancelled - Patient discharged Performed By: #### L 100.0100, L500.2500 ####[facility] [address] [place], [address] MCHC Normal 32-36 [facility] Comment on above: Result Comment: Canc elled via OM: Order cancelled - Patient discharged Performed By: #### L 100.0100, L500.2500 ####[facility] [address] [place], [address] MCV Normal 81-99 [facility] Comment on above: Result Comment: Canc elled via OM: Order cancelled - Patient discharged Performed By: #### L 100.0100, L500.2500 ####[facility] [address] [place], [address] NEUT% Normal 47-70 [facility] Comment on above: Result Comment: Canc elled via OM: Order cancelled - Patient discharged Performed By: #### L 100.0100, L500.2500 ####[facility] [address] [place], [address] PLT Normal 150-450 [facility] Comment on above: Result Comment: Canc elled via OM: Order cancelled - Patient discharged Performed By: #### L 100.0100, L500.2500 ####[facility] [address] [place], [address] RBC Normal 4.2-5.4 [facility] Comment on above: Result Comment: Canc elled via OM: Order cancelled - Patient discharged Performed By: #### L 100.0100, L500.2500 ####[facility] [address] [place], [address] RDW CV Normal 11.6-14.6 [facility] Comment on above: Result Comment: Canc elled via OM: Order cancelled - Patient discharged Performed By: #### L 100.0100, L500.2500 ####[facility] [address] [place], [address] RDW SD Normal 35.1-43.9 [facility] Comment on above: Result Comment: Canc elled via OM: Order cancelled - Patient discharged Performed By: #### L 100.0100, L500.2500 ####[facility] [address] [place], [address] WBC Normal 4.4-11.0 [facility] Comment on above: Result Comment: Canc elled via OM: Order cancelled - Patient discharged Performed By: #### L 100.0100, L500.2500 ####[facility] [address] [place], [address] CPK Total, Creatine Kinaseon 04-02-2024 CPK TOTAL 3351 U/L High 26-192 [facility] Comment on above: Performed By: #### L 501.3620 ####[facility] [address] [place], [address] Chest PA and Lateralon 04-02 Chest PA and Lateral Normal [facility] Comprehensive Metabolic Prof ilon 04-02-2024 Albumin [Mass/Vol] 2.9 g/dL Low 3.2-5.0 [facility] Comment on above: Performed By: #### L 500.4050, L503.6005, L100.0100 ####[facility] [address] [place], [address] Albumin/Globulin [Mass ratio] 0.8 {ratio} Low 0.9-2.4 [facility] Comment on above: Performed By: #### L 500.4050, L503.6005, L100.0100 ####[facility] [address] [place], [address] ALK P 116 U/L Normal 45-117 [facility] Comment on above: Performed By: #### L 500.4050, L503.6005, L100.0100 ####[facility] [address] [place], [address] ALT [Catalytic activity/Vol] 105 U/L High 13-56 [facility] Comment on above: Performed By: #### L 500.4050, L503.6005, L100.0100 ####[facility] [address] [place], [address] AST [Catalytic activity/Vol] 212 U/L High 15-37 [facility] Comment on above: Performed By: #### L 500.4050, L503.6005, L100.0100 ####[facility] [address] [place], [address] Bilirubin [Mass/Vol] 1.00 mg/dL Normal 0.20-1.[address] [facility] Comment on above: Result Comment: For patients on eltrombopag therapy, use of Dimension [place] TBIL is not recommended. Performed By: #### L 500.4050, L503.6005, L100.0100 ####[facility] [address] [place], [address] BUN/CRE 16.2 RATIO Normal 10-20 [facility] Comment on above: Performed By: #### L 500.4050, L503.6005, L100.0100 ####[facility] [address] [place], [address] CA,Total 9.3 mg/dL Normal 8.5-10.1 [facility] Comment on above: Performed By: #### L 500.4050, L503.6005, L100.0100 ####[facility] [address] [place], [address] Chloride [Moles/Vol] 110 mmol/L High 98-[address] [facility] Comment on above: Performed By: #### L 500.4050, L503.6005, L100.0100 ####[facility] [address] [place], [address] CO2 [Moles/Vol] 21.0 mmol/L Normal 21.0-32.0 [facility] Comment on above: Performed By: #### L 500.4050, L503.6005, L100.0100 ####[facility] [address] [place], [address] Creatinine [Mass/Vol] 1.17 mg/dL High 0.55-1.02 [facility] Comment on above: Result Comment: The validity of the calculated GFR GFRAA in patients over70 years has not been determined. Clinical correlation isessential. Performed By: #### L 500.4050, L503.6005, L100.0100 ####[facility] [address] [place], [address] ECRCL 80.16 ml/min Normal [facility] Comment on above: Performed By: #### L 500.4050, L503.6005, L100.0100 ####[facility] [address] [place], [address] EST GFR - AA 61 mL/min Normal >60 [facility] Comment on above: Result Comment: Afri can Ugandan GFR Calc Performed By: #### L 500.4050, L503.6005, L100.0100 ####[facility] [address] [place], [address] GAP 6 Normal 5-15 [facility] Comment on above: Performed By: #### L 500.4050, L503.6005, L100.0100 ####[facility] [address] [place], [address] GFR/1.73 sq M.predicted among non-blacks MDRD (S/P/Bld) [Vol rate/Area] 51 mL/min/{1.73_m2} Low >60 [facility] Comment on above: Result Comment: Non- GFR Calc Performed By: #### L 500.4050, L503.6005, L100.0100 ####[facility] [address] [place], [address] Globulin (S) [Mass/Vol] 3.7 g/dL Normal 2.2-4.2 [facility] Comment on above: Performed By: #### L 500.4050, L503.6005, L100.0100 ####[facility] [address] [place], [address] Glucose [Mass/Vol] 91 mg/dL Normal 74-106 [facility] Comment on above: Performed By: #### L 500.4050, L503.6005, L100.0100 ####[facility] [address] [place], [address] Potassium [Moles/Vol] 3.9 mmol/L Normal 3.5-5.1 [facility] Comment on above: Performed By: #### L 500.4050, L503.6005, L100.0100 ####[facility] [address] [place], [address] Sodium [Moles/Vol] 137 mmol/L Normal 136-145 [facility] Comment on above: Performed By: #### L 500.4050, L503.6005, L100.0100 ####[facility] [address] [place], [address] T PROT 6.6 g/dL Normal 6.4-8.2 [facility] Comment on above: Performed By: #### L 500.4050, L503.6005, L100.0100 ####[facility] [address] [place], [address] Urea nitrogen [Mass/Vol] 19 mg/dL High 7-18 [facility] Comment on above: Performed By: #### L 500.4050, L503.6005, L100.0100 ####[facility] [address] [place], [address] Elbow min 3 Viewson 04-02-19 25 Elbow min 3 Views Normal [facility] Emergency Department Summary on 04-02-2024 Emergency Department Summary Normal [facility] Lactic Acidon 04-02-2024 Lactate [Moles/Vol] 1.4 mmol/L Normal 0.4-1.9 [facility] Comment on above: Performed By: #### L 503.6005 ####[facility] [address] [place], [address] Lactate [Moles/Vol] 2.0 mmol/L Normal 0.4-1.9 [facility] Comment on above: Order Comment: Y Result Comment: Crit ical Result(s) Called at: 09:56:03 04/02/2024 by: Shukri Payne RN (ER). Results read back by same. Performed By: #### L 500.4050, L503.6005, L100.0100 ####[facility] [address] [place], [address] Urinalysis, Completeon 04-02 BACTERIA 1+ /hpf Normal None Seen [facility] Comment on above: Order Comment: GARDENIA CTOR TO SPECIFY Performed By: #### L 400.0001 ####[facility] [address] [place], [address] EPI,SQUAMOUS 0-5 SEEN Normal 5-10 [facility] Comment on above: Order Comment: GARDENIA CTOR TO SPECIFY Performed By: #### L 400.0001 ####[facility] [address] [place], [address] RBC 0-5 SEEN Normal 0-5 [facility] Comment on above: Order Comment: GARDENIA CTOR TO SPECIFY Performed By: #### L 400.0001 ####[facility] [address] [place], [address] WBC 0-5 SEEN Normal 0-5 [facility] Comment on above: Order Comment: GARDENIA NASH TO SPECIFY Performed By: #### L 400.0001 ####[facility] [address] [place] [address] Mucus Ql (Urine sed) [address] [facility] Comment on above: Order Comment: GARDENIA HANSONOR TO SPECIFY Performed By: #### L 400.0001 ####[facility] [address] [place] [address] Urine Drug Screen (VISTA)on 04-02-2024 AMPHETAMINES Negative Normal <1000 ng/mL [facility] Comment on above: Performed By: #### L 505.5000 ####[facility] [address] [place] [address] BARBITIURATES Negative Normal < 200 ng/mL [facility] Comment on above: Performed By: #### L 505.5000 ####[facility] [address] [place] [address] BENZODIAZIPINE Positive Abnormal < 200 ng/mL [facility] Comment on above: Performed By: #### L 505.5000 ####[facility] [address] [place] [address] COCAINE Negative Normal < 300 ng/mL [facility] Comment on above: Performed By: #### L 505.5000 ####[facility] [address] [place] [address] ECSTACY Positive Abnormal < 500 ng/mL [facility] Comment on above: Performed By: #### L 505.5000 ####[facility] [address] [place] [address] METHADONE Negative Normal < 300 ng/mL [facility] Comment on above: Performed By: #### L 505.5000 ####[facility] [address] [place] [address] OPIATES Positive Abnormal < 300 ng/mL [facility] Comment on above: Performed By: #### L 505.5000 ####[facility] [address] [place], [address] PCP Negative Normal < 25 ng/mL [facility] Comment on above: Performed By: #### L 505.5000 ####[facility] [address] [place], [address] THC Negative Normal < 50 ng/mL [facility] Comment on above: Performed By: #### L 505.5000 ####[facility] [address] [place], [address] VISTA UDS PH 5 Normal [facility] Comment on above: Performed By: #### L 505.5000 ####[facility] [address] [place], [address] Basic Metabolic Profile (BMP )on 04-01-2024 BUN/CRE 22.9 RATIO High 10-20 [facility] Comment on above: Performed By: #### L 100.0100, L500.2500, L501.5200 ####[facility] [address] [place], [address] CA,Total 8.6 mg/dL Normal 8.5-10.1 [facility] Comment on above: Performed By: #### L 100.0100, L500.2500, L501.5200 ####[facility] [address] [place], [address] Chloride [Moles/Vol] 108 mmol/L High 98-[address] [facility] Comment on above: Performed By: #### L 100.0100, L500.2500, L501.5200 ####[facility] [address] [place], [address] CO2 [Moles/Vol] 21.0 mmol/L Normal 21.0-32.0 [facility] Comment on above: Performed By: #### L 100.0100, L500.2500, L501.5200 ####[facility] [address] [place], [address] Creatinine [Mass/Vol] 1.09 mg/dL High 0.55-1.02 [facility] Comment on above: Result Comment: The validity of the calculated GFR GFRAA in patients over70 years has not been determined. Clinical correlation isessential. Performed By: #### L 100.0100, L500.2500, L501.5200 ####[facility] [address] [place], [address] ECRCL 83.85 ml/min Normal [facility] Comment on above: Performed By: #### L 100.0100, L500.2500, L501.5200 ####[facility] [address] [place], [address] EST GFR - AA 66 mL/min Normal >60 [facility] Comment on above: Result Comment: Afri can [place] GFR Calc Performed By: #### L 100.0100, L500.2500, L501.5200 ####[facility] [address] [place], [address] GAP 9 Normal 5-15 [facility] Comment on above: Performed By: #### L 100.0100, L500.2500, L501.5200 ####[facility] [address] [place], [address] GFR/1.73 sq M.predicted among non-blacks MDRD (S/P/Bld) [Vol rate/Area] 55 mL/min/{1.73_m2} Low >60 [facility] Comment on above: Result Comment: Non- GFR Calc Performed By: #### L 100.0100, L500.2500, L501.5200 ####[facility] [address] [place], [address] Glucose [Mass/Vol] 105 mg/dL Normal 74-106 [facility] Comment on above: Result Comment: Fast ing Glucose result from 100 to 125 mg/dLsuggests IMPAIRED HOMEOSTASIS per A.D.A. criteria. Performed By: #### L 100.0100, L500.2500, L501.5200 ####[facility] [address] [place], [address] Potassium [Moles/Vol] 3.6 mmol/L Normal 3.5-5.1 [facility] Comment on above: Performed By: #### L 100.0100, L500.2500, L501.5200 ####[facility] [address] [place], [address] Sodium [Moles/Vol] 138 mmol/L Normal 136-145 [facility] Comment on above: Performed By: #### L 100.0100, L500.2500, L501.5200 ####[facility] [address] [place], [address] Urea nitrogen [Mass/Vol] 25 mg/dL High 7-18 [facility] Comment on above: Performed By: #### L 100.0100, L500.2500, L501.5200 ####[facility] [address] [place], [address] CBC W/Diff, Automatedon -2 Anisocytosis Ql (Bld) 2+ Normal [facility] Comment on above: Performed By: #### L 100.0100, L500.2500, L501.5200 ####[facility] [address] [place], [address] HYPOCHROMASIA 1+ Normal [facility] Comment on above: Performed By: #### L 100.0100, L500.2500, L501.5200 ####[facility] [address] [place], [address] MICROCYTIC 1+ Normal [facility] Comment on above: Performed By: #### L 100.0100, L500.2500, L501.5200 ####[facility] [address] [place], [address] PLT EST ADEQUATE Normal ADEQ [facility] Comment on above: Performed By: #### L 100.0100, L500.2500, L501.5200 ####[facility] [address] [place], [address] POLYCHROMASIA 1+ Normal [facility] Comment on above: Performed By: #### L 100.0100, L500.2500, L501.5200 ####[facility] [address] [place], [address] SMEAR COMMENT SCANNED Normal [facility] Comment on above: Performed By: #### L 100.0100, L500.2500, L501.5200 ####[facility] [address] [place], [address] TARGET CELLS RARE Normal [facility] Comment on above: Performed By: #### L 100.0100, L500.2500, L501.5200 ####[facility] [address] [place], [address] CPK Total, Creatine Kinaseon 5 CPK TOTAL 4258 U/L High 26-192 [facility] Comment on above: Performed By: #### L 501.3620 ####[facility] [address] [place], [address] Magnesiumon 5 Magnesium [Mass/Vol] 1.9 mg/dL Normal 1.6-2.[address] [facility] Comment on above: Performed By: #### L 100.0100, L500.2500, L501.5200 ####[facility] [address] [place], [address] Phosphoruson 04-01-2024 Phosphate [Mass/Vol] 2.5 mg/dL Normal 2.5-4.[address] [facility] Comment on above: Performed By: #### L 501.2300 ####[facility] [address] [place], [address] CBC W/Diff, Automatedon 03-09 Absolute Lymph 1.89 X10 3/uL Normal 0.83-4.51 [facility] Comment on above: Performed By: #### L 100.0100 ####[facility] [address] [place], [address] Absolute Neut 8.1 X10 3/uL High 2.0-7.7 [facility] Comment on above: Performed By: #### L 100.0100 ####[facility] [address] [place], [address] Basophils/100 WBC (Bld) 0.4 % Normal 0-1 [facility] Comment on above: Performed By: #### L 100.0100 ####[facility] [address] [place], [address] Eosinophils/100 WBC (Bld) 6.2 % High 0-5 [facility] Comment on above: Performed By: #### L 100.0100 ####[facility] [address] [place], [address] Erythrocyte distribution width (RBC) [Ratio] 21.2 % High 11.6-14.6 [facility] Comment on above: Performed By: #### L 100.0100 ####[facility] [address] [place], [address] Hematocrit (Bld) [Volume fraction] 28.2 % Low 37-47 [facility] Comment on above: Performed By: #### L 100.0100 ####[facility] [address] [place], [address] Hemoglobin (Bld) [Mass/Vol] 8.8 g/dL Low 12.0-15.0 [facility] Comment on above: Performed By: #### L 100.0100 ####[facility] [address] [place], [address] IG% 0.400 Normal 0.0-0.9 [facility] Comment on above: Result Comment: IG% - Immature Granulocytes (promyelocytes, myelocytes andmetamyelocytes) > 1% indicates that a LEFT SHIFT is Present. Performed By: #### L 100.0100 ####[facility] [address] [place], [address] Lymphocytes/100 WBC (Bld) 16.3 % Low 19-41 [facility] Comment on above: Performed By: #### L 100.0100 ####[facility] [address] [place], [address] MCH (RBC) [Entitic mass] 23.3 pg Low 27.0-32.0 [facility] Comment on above: Performed By: #### L 100.0100 ####[facility] [address] [place], [address] MCHC (RBC) [Mass/Vol] 31.2 g/dL Low 32-36 [facility] Comment on above: Performed By: #### L 100.0100 ####[facility] [address] [place], [address] MCV (RBC) [Entitic vol] 74.6 fL Low 81-99 [facility] Comment on above: Performed By: #### L 100.0100 ####[facility] [address] [place], [address] Monocytes/100 WBC (Bld) 6.5 % Normal 0-10 [facility] Comment on above: Performed By: #### L 100.0100 ####[facility] [address] [place], [address] Neutrophils/100 WBC (Bld) 70.2 % High 47-70 [facility] Comment on above: Performed By: #### L 100.0100 ####[facility] [address] [place], [address] Nucleated RBC (Bld) [#/Vol] 0 10*3/uL Normal 0-5 [facility] Comment on above: Performed By: #### L 100.0100 ####[facility] [address] [place], [address] Platelet mean volume (Bld) [Entitic vol] 10.2 fL Normal 6.2-12.0 [facility] Comment on above: Performed By: #### L 100.0100 ####[facility] [address] [place], [address] Platelets (Bld) [#/Vol] 261 10*3/uL Normal 150-450 [facility] Comment on above: Performed By: #### L 100.0100 ####[facility] [address] [place], [address] RBC (Bld) [#/Vol] 3.78 10*6/uL Low 4.2-5.4 [facility] Comment on above: Performed By: #### L 100.0100 ####[facility] [address] [place], [address] RDW SD 54.6 fl High 35.1-43.9 [facility] Comment on above: Performed By: #### L 100.0100 ####[facility] [address] [place], [address] WBC (Bld) [#/Vol] 11.6 10*3/uL High 4.4-11.0 [facility] Comment on above: Performed By: #### L 100.0100 ####[facility] [address] [place], [address] CPK Total, Creatine Kinaseon 03-31-2024 CPK TOTAL 7461 U/L High 26-192 [facility] Comment on above: Performed By: #### L 501.3620, L500.4050 ####[facility] [address] [place], [address] Comprehensive Metabolic Prof ilon 03-31-2024 Albumin [Mass/Vol] 2.4 g/dL Low 3.2-5.0 [facility] Comment on above: Performed By: #### L 501.3620, L500.4050 ####[facility] [address] [place], [address] Albumin/Globulin [Mass ratio] 0.8 {ratio} Low 0.9-2.4 [facility] Comment on above: Performed By: #### L 501.3620, L500.4050 ####[facility] [address] [place], [address] ALK P 109 U/L Normal 45-117 [facility] Comment on above: Performed By: #### L 501.3620, L500.4050 ####[facility] [address] [place], [address] ALT [Catalytic activity/Vol] 84 U/L High 13-56 [facility] Comment on above: Performed By: #### L 501.3620, L500.4050 ####[facility] [address] [place], [address] AST [Catalytic activity/Vol] 263 U/L High 15-37 [facility] Comment on above: Performed By: #### L 501.3620, L500.4050 ####[facility] [address] [place], [address] Bilirubin [Mass/Vol] 1.00 mg/dL Normal 0.20-1.[address] [facility] Comment on above: Result Comment: For patients on eltrombopag therapy, use of Dimension [place] TBIL is not recommended. Performed By: #### L 501.3620, L500.4050 ####[facility] [address] [place], [address] BUN/CRE 20.4 RATIO High 10-20 [facility] Comment on above: Performed By: #### L 501.3620, L500.4050 ####[facility] [address] [place], [address] CA,Total 8.2 mg/dL Low 8.5-10.1 [facility] Comment on above: Performed By: #### L 501.3620, L500.4050 ####[facility] [address] [place], [address] Chloride [Moles/Vol] 110 mmol/L High 98-[address] [facility] Comment on above: Performed By: #### L 501.3620, L500.4050 ####[facility] [address] [place], [address] CO2 [Moles/Vol] 19.0 mmol/L Low 21.0-32.0 [facility] Comment on above: Performed By: #### L 501.3620, L500.4050 ####[facility] [address] [place], [address] Creatinine [Mass/Vol] 1.37 mg/dL High 0.55-1.02 [facility] Comment on above: Result Comment: The validity of the calculated GFR GFRAA in patients over70 years has not been determined. Clinical correlation isessential. Performed By: #### L 501.3620, L500.4050 ####[facility] [address] [place], [address] ECRCL 66.72 ml/min Normal [facility] Comment on above: Performed By: #### L 501.3620, L500.4050 ####[facility] [address] [place], [address] EST GFR - AA 51 mL/min Low >60 [facility] Comment on above: Result Comment: Afri can Ugand[place] GFR Calc Performed By: #### L 501.3620, L500.4050 ####[facility] [address] [place], [address] GAP 11 Normal 5-15 [facility] Comment on above: Performed By: #### L 501.3620, L500.4050 ####[facility] [address] [place], [address] GFR/1.73 sq M.predicted among non-blacks MDRD (S/P/Bld) [Vol rate/Area] 42 mL/min/{1.73_m2} Low >60 [facility] Comment on above: Result Comment: Non- GFR Calc Performed By: #### L 501.3620, L500.4050 ####[facility] [address] [place], [address] Globulin (S) [Mass/Vol] 3.2 g/dL Normal 2.2-4.2 [facility] Comment on above: Performed By: #### L 501.3620, L500.4050 ####[facility] [address] [place], [address] Glucose [Mass/Vol] 75 mg/dL Normal 74-106 [facility] Comment on above: Performed By: #### L 501.3620, L500.4050 ####[facility] [address] [place], [address] Potassium [Moles/Vol] 2.8 mmol/L Low 3.5-5.1 [facility] Comment on above: Performed By: #### L 501.3620, L500.4050 ####[facility] [address] [place], [address] Sodium [Moles/Vol] 139 mmol/L Normal 136-145 [facility] Comment on above: Performed By: #### L 501.3620, L500.4050 ####[facility] [address] [place], [address] T PROT 5.6 g/dL Low 6.4-8.2 [facility] Comment on above: Performed By: #### L 501.3620, L500.4050 ####[facility] [address] [place], [address] Urea nitrogen [Mass/Vol] 28 mg/dL High 7-18 [facility] Comment on above: Performed By: #### L 501.3620, L500.4050 ####[facility] [address] [place], [address] Magnesiumon 03-31-2024 Magnesium [Mass/Vol] 1.9 mg/dL Normal 1.6-2.[address] [facility] Comment on above: Performed By: #### L 501.2300, L501.5200 ####[facility] [address] [place], [address] Phosphoruson 03-31-2024 Phosphate [Mass/Vol] 3.6 mg/dL Normal 2.5-4.[address] [facility] Comment on above: Performed By: #### L 501.2300, L501.5200 ####[facility] [address] [place], [address] Potassiumon 03-31-2024 Potassium [Moles/Vol] 3.4 mmol/L Low 3.5-5.1 [facility] Comment on above: Performed By: #### L 501.5600 ####[facility] [address] [place], [address] Urine Cultureon 03-31-2024 URC Culture exhibits no growth. Normal [facility] Comment on above: Performed By: #### M 100.2200 ####[facility] [address] [place], [address] 12 Lead EKGon 03-30-2024 12 Lead EKG Normal [facility] Brain/Head without Contrasto n 03-30-2024 Brain/Head without Contrast Normal [facility] CBC W/Diff, Automatedon 03-09 HYPOCHROMASIA 1+ Normal [facility] Comment on above: Performed By: #### L 100.0100, L300.4310, L501.3620, L500.4050, L300.3900 ####[facility] [address] [place], [address] POLYCHROMASIA RARE Normal [facility] Comment on above: Performed By: #### L 100.0100, L300.4310, L501.3620, L500.4050, L300.3900 ####[facility] [address] [place], [address] Anisocytosis Ql (Bld) 2+ Normal [facility] Comment on above: Performed By: #### L 100.0100, L300.4310, L501.3620, L500.4050, L300.3900 ####[facility] [address] [place], [address] SMEAR COMMENT SCANNED Normal [facility] Comment on above: Performed By: #### L 100.0100, L300.4310, L501.3620, L500.4050, L300.3900 ####[facility] [address] [place], [address] CPK Total, Creatine Kinaseon 03-30-2024 CPK TOTAL 22312 U/L High 26-192 [facility] Comment on above: Performed By: #### L 100.0100, L300.4310, L501.3620, L500.4050, L300.3900 ####[facility] [address] [place], [address] Chest 1 View (Portable)on Chest 1 View (Portable) Normal [facility] Comprehensive Metabolic Prof ilon 03-30-2024 Albumin [Mass/Vol] 3.1 g/dL Low 3.2-5.0 [facility] Comment on above: Performed By: #### L 100.0100, L300.4310, L501.3620, L500.4050, L300.3900 ####[facility] [address] [place], [address] Albumin/Globulin [Mass ratio] 0.8 {ratio} Low 0.9-2.4 [facility] Comment on above: Performed By: #### L 100.0100, L300.4310, L501.3620, L500.4050, L300.3900 ####[facility] [address] [place], [address] ALK P 151 U/L High 45-117 [facility] Comment on above: Performed By: #### L 100.0100, L300.4310, L501.3620, L500.4050, L300.3900 ####[facility] [address] [place], [address] ALT [Catalytic activity/Vol] 93 U/L High 13-56 [facility] Comment on above: Performed By: #### L 100.0100, L300.4310, L501.3620, L500.4050, L300.3900 ####[facility] [address] [place], [address] AST [Catalytic activity/Vol] 304 U/L High 15-37 [facility] Comment on above: Performed By: #### L 100.0100, L300.4310, L501.3620, L500.4050, L300.3900 ####[facility] [address] [place], [address] Bilirubin [Mass/Vol] 1.70 mg/dL High 0.20-1.[address] [facility] Comment on above: Result Comment: For patients on eltrombopag therapy, use of Dimension [place] TBIL is not recommended. Performed By: #### L 100.0100, L300.4310, L501.3620, L500.4050, L300.3900 ####[facility] [address] [place], [address] BUN/CRE 15.6 RATIO Normal 10-20 [facility] Comment on above: Performed By: #### L 100.0100, L300.4310, L501.3620, L500.4050, L300.3900 ####[facility] [address] [place], [address] CA,Total 9.6 mg/dL Normal 8.5-10.1 [facility] Comment on above: Performed By: #### L 100.0100, L300.4310, L501.3620, L500.4050, L300.3900 ####[facility] [address] [place], [address] Chloride [Moles/Vol] 105 mmol/L Normal 98-[address] [facility] Comment on above: Performed By: #### L 100.0100, L300.4310, L501.3620, L500.4050, L300.3900 ####[facility] [address] [place], [address] CO2 [Moles/Vol] 22.0 mmol/L Normal 21.0-32.0 [facility] Comment on above: Performed By: #### L 100.0100, L300.4310, L501.3620, L500.4050, L300.3900 ####[facility] [address] [place], [address] Creatinine [Mass/Vol] 2.11 mg/dL High 0.55-1.02 [facility] Comment on above: Result Comment: The validity of the calculated GFR GFRAA in patients over70 years has not been determined. Clinical correlation isessential. Performed By: #### L 100.0100, L300.4310, L501.3620, L500.4050, L300.3900 ####[facility] [address] [place], [address] ECRCL 44.30 ml/min Normal [facility] Comment on above: Performed By: #### L 100.0100, L300.4310, L501.3620, L500.4050, L300.3900 ####[facility] [address] [place], [address] EST GFR - AA 31 mL/min Low >60 [facility] Comment on above: Result Comment: Afri can [place] GFR Calc Performed By: #### L 100.0100, L300.4310, L501.3620, L500.4050, L300.3900 ####[facility] [address] [place], [address] GAP 11 Normal 5-15 [facility] Comment on above: Performed By: #### L 100.0100, L300.4310, L501.3620, L500.4050, L300.3900 ####[facility] [address] [place], [address] GFR/1.73 sq M.predicted among non-blacks MDRD (S/P/Bld) [Vol rate/Area] 26 mL/min/{1.73_m2} Low >60 [facility] Comment on above: Result Comment: Non- GFR Calc Performed By: #### L 100.0100, L300.4310, L501.3620, L500.4050, L300.3900 ####[facility] [address] [place], [address] Globulin (S) [Mass/Vol] 4.0 g/dL Normal 2.2-4.2 [facility] Comment on above: Performed By: #### L 100.0100, L300.4310, L501.3620, L500.4050, L300.3900 ####[facility] [address] [place], [address] Glucose [Mass/Vol] 110 mg/dL High 74-106 [facility] Comment on above: Result Comment: Fast ing Glucose result from 100 to 125 mg/dLsuggests IMPAIRED HOMEOSTASIS per A.D.A. criteria. Performed By: #### L 100.0100, L300.4310, L501.3620, L500.4050, L300.3900 ####[facility] [address] [place], [address] Potassium [Moles/Vol] 3.1 mmol/L Low 3.5-5.1 [facility] Comment on above: Performed By: #### L 100.0100, L300.4310, L501.3620, L500.4050, L300.3900 ####[facility] [address] [place], [address] Sodium [Moles/Vol] 138 mmol/L Normal 136-145 [facility] Comment on above: Performed By: #### L 100.0100, L300.4310, L501.3620, L500.4050, L300.3900 ####[facility] [address] [place], [address] T PROT 7.1 g/dL Normal 6.4-8.2 [facility] Comment on above: Performed By: #### L 100.0100, L300.4310, L501.3620, L500.4050, L300.3900 ####[facility] [address] [place], [address] Urea nitrogen [Mass/Vol] 33 mg/dL High 7-18 [facility] Comment on above: Performed By: #### L 100.0100, L300.4310, L501.3620, L500.4050, L300.3900 ####[facility] [address] [place], [address] Emergency Department Summary on 03-30-2024 Emergency Department Summary Normal [facility] H AND P Exam - Hospitaliston 03-30-2024 H&P Exam - Hospitalist Normal [facility] Lactic Acidon 03-30-2024 Lactate [Moles/Vol] 1.3 mmol/L Normal 0.4-1.9 [facility] Comment on above: Order Comment: Y Performed By: #### L 503.6005, M200.1000, L509.7000 ####[facility] [address] [place], [address] Partial Thromboplast Timeon 03-30-2024 aPTT Coag (Bld) [Time] 25.2 s Normal 24.1-36.2 [facility] Comment on above: Performed By: #### L 100.0100, L300.4310, L501.3620, L500.4050, L300.3900 ####[facility] [address] [place], [address] Pelvis 1 or 2 Viewson 2024 Pelvis 1 or 2 Views Normal [facility] Procalcitoninon 03-30-2024 Procalcitonin 0.24 ng/mL High 0.00-0.09 [facility] Comment on above: Result Comment: A pr [...] Performed By: #### L 503.6005, M200.1000, L509.7000 ####[facility] [address] [place], [address] Prothrombin Time w/INRon INR Coag (PPP) [Relative time] 1.2 {INR} Normal [facility] Comment on above: Performed By: #### L 100.0100, L300.4310, L501.3620, L500.4050, L300.3900 ####[facility] [address] [place], [address] PT Coag (PPP) [Time] 15.5 s High 11.7-14.[address] [facility] Comment on above: Performed By: #### L 100.0100, L300.4310, L501.3620, L500.4050, L300.3900 ####[facility] [address] [place], [address] Spine Cervical without Contr ason 03-30-2024 Spine Cervical without Contras Normal [facility] Tibia Fibula 2 Viewson 03-30 Tibia Fibula [address] [facility] Urinalysis, Completeon 03-30 RBC 0-5 SEEN Normal 0-5 [facility] Comment on above: Order Comment: CLEAN CATCH Performed By: #### L 400.0001 ####[facility] [address] [place], [address] BACTERIA RARE Normal None Seen [facility] Comment on above: Order Comment: CLEAN CATCH Performed By: #### L 400.0001 ####[facility] [address] [place], [address] WBC 5-10 SEEN Normal 0-5 [facility] Comment on above: Order Comment: CLEAN CATCH Performed By: #### L 400.0001 ####[facility] [address] [place], [address] EPI,SQUAMOUS 0-5 SEEN Normal 5-10 [facility] Comment on above: Order Comment: CLEAN CATCH Performed By: #### L 400.0001 ####[facility] [address] [place], [address] Mucus Ql (Urine sed) [address] [facility] Comment on above: Order Comment: CLEAN CATCH Performed By: #### L 400.0001 ####[facility] [address] [place], [address] XR Foot - left AP and Latera l and obliqueon 03-28-2024 IMPRESSION: See find ings Vision Therapist: PSCB Transcribe Date/Time: Mar 28 2024 4:08P Dictated by : MAHOGANY GATES MD This examination was interpreted and the report reviewed and electronically signed by: MAHOGANY GATES MD on Mar 28 2024 4:12PM [facility] DIVISION OF RADIOLOGY * * *Final Report* [...] dislocation. DIVISION OF RADIOLOGY Provider, Linsey hester Cosby - 03/28/2024 * * *Final Report* * [...] fracture or dislocation. IMPRESSION IMPRESSION: See findings Vision Therapist: PSCB Transcribe Date/Time: Mar 28 2024 4:08P Dictated by : MAHOGANY GATES MD This examination was interpreted and the report reviewed and electronically signed by: MAHOGANY GATES MD on Mar 28 2024 4:12PM EST [facility] XR Foot - left AP and Latera l and obliqueOrdered By: [facility] Provider on 03-28-2024 [facility] Emergency Department Summary on 03-26-2024 Emergency Department Summary Normal [facility] Shoulder min 2 Viewson 03-26 Shoulder min [address] [facility] Wrist min 3 Viewson 03-26-19 Wrist min 3 Views Normal [facility] CNOVon 03-24-2024 CNOV Office Visit (PODIWS ) THUY WHITE ([id number]) 1965 F Date Time Provider Department 03/24/24 [...] 2004 with panic attacks Herpes genitalis Hypoparathyroidism ([facility]) parathyroid implant Left forearm Hypothyroidism 09/30/2018 IFG (impaired fasting glucose) 05/08/2014 Impaired fasting glucose Insomnia 03/16/2013 Iron deficiency anemia Irritable bowel syndrome 1998 diarrhea prone, dairy exacerbates MEN 1 (multiple endocrine neoplasia) ([facility] Morbid [facility] ([facility]) 2006 s/p sleeve Dr Dale Obstructive sleep apnea fair complaince with CPAP Primary hyperparathyroidism ([facility]) 3 1/2 gland parathyroidectomy Renal [...] Swelling R (more content not included)... Normal [facility] XR FOOT 3V AP/LAT/OBL LTon 0 [...] acute fracture or dislocation. IMPRESSION: See findings Vision Therapist: PSCB Transcribe Date/Time: Mar 28 2024 4:08P Dictated by : MAHOGANY GATES MD This examination was interpreted and the report reviewed and electronically signed by: MAHOGANY GATES MD on Mar 28 2024 4:12PM EST [id number] Normal [facility] XR Foot - left AP and Latera l and obliqueon 03-24-2024 Radiology Study observation (narrative) [facility] Emergency Department Summary on 02-22-2024 Emergency Department Summary Normal [facility] Shoulder min 2 Viewson 02-21 Shoulder min [address] [facility] 12 Lead EKGon 02-18-2024 12 Lead EKG Normal [facility] Bedside Glucoseon 02-18-2024 FINGERSTICK GLU 136 mg/dL High 74-106 [facility] Comment on above: Result Comment: JACQUELYN KIM OF PATIENT CARE PER NURSING PROTOCOL Performed By: #### L 501.080 ####[facility] [address] [place], [address] CBC W/Diff, Automatedon 02-05 ACANTHOCYTE RARE Normal [facility] Comment on above: Performed By: #### L 503.6005, L100.0100, L500.4050 ####[facility] [address] [place], [address] Anisocytosis Ql (Bld) 2+ Normal [facility] Comment on above: Performed By: #### L 503.6005, L100.0100, L500.4050 ####[facility] [address] [place], [address] MICROCYTIC 2+ Normal [facility] Comment on above: Performed By: #### L 503.6005, L100.0100, L500.4050 ####[facility] [address] [place], [address] SCHISTOCYTES RARE Normal [facility] Comment on above: Performed By: #### L 503.6005, L100.0100, L500.4050 ####[facility] [address] [place], [address] TARGET CELLS RARE Normal [facility] Comment on above: Performed By: #### L 503.6005, L100.0100, L500.4050 ####[facility] [address] [place], [address] PLT EST SLT INC Normal ADEQ [facility] Comment on above: Performed By: #### L 503.6005, L100.0100, L500.4050 ####[facility] [address] [place], [address] SMEAR COMMENT SCANNED Normal [facility] Comment on above: Performed By: #### L 503.6005, L100.0100, L500.4050 ####[facility] [address] [place], [address] Comprehensive Metabolic Prof ilon 02-18-2024 Albumin [Mass/Vol] 3.3 g/dL Normal 3.2-5.0 [facility] Comment on above: Performed By: #### L 503.6005, L100.0100, L500.4050 ####[facility] [address] [place], [address] Albumin/Globulin [Mass ratio] 0.8 {ratio} Low 0.9-2.4 [facility] Comment on above: Performed By: #### L 503.6005, L100.0100, L500.4050 ####[facility] [address] [place], [address] ALK P 102 U/L Normal 45-117 [facility] Comment on above: Performed By: #### L 503.6005, L100.0100, L500.4050 ####[facility] [address] [place], [address] ALT [Catalytic activity/Vol] 13 U/L Normal 13-56 [facility] Comment on above: Performed By: #### L 503.6005, L100.0100, L500.4050 ####[facility] [address] [place], [address] AST [Catalytic activity/Vol] 14 U/L Low 15-37 [facility] Comment on above: Performed By: #### L 503.6005, L100.0100, L500.4050 ####[facility] [address] [place], [address] Bilirubin [Mass/Vol] 0.60 mg/dL Normal 0.20-1.[address] [facility] Comment on above: Result Comment: For patients on eltrombopag therapy, use of Dimension [place] TBIL is not recommended. Performed By: #### L 503.6005, L100.0100, L500.4050 ####[facility] [address] [place], [address] BUN/CRE 9.8 RATIO Low 10-20 [facility] Comment on above: Performed By: #### L 503.6005, L100.0100, L500.4050 ####[facility] [address] [place], [address] CA,Total 8.4 mg/dL Low 8.5-10.1 [facility] Comment on above: Performed By: #### L 503.6005, L100.0100, L500.4050 ####[facility] [address] [place], [address] Chloride [Moles/Vol] 100 mmol/L Normal 98-[address] [facility] Comment on above: Performed By: #### L 503.6005, L100.0100, L500.4050 ####[facility] [address] [place], [address] CO2 [Moles/Vol] 26.0 mmol/L Normal 21.0-32.0 [facility] Comment on above: Performed By: #### L 503.6005, L100.0100, L500.4050 ####[facility] [address] [place], [address] Creatinine [Mass/Vol] 1.64 mg/dL High 0.55-1.02 [facility] Comment on above: Result Comment: The validity of the calculated GFR GFRAA in patients over70 years has not been determined. Clinical correlation isessential. Performed By: #### L 503.6005, L100.0100, L500.4050 ####[facility] [address] [place], [address] ECRCL 55.90 ml/min Normal [facility] Comment on above: Performed By: #### L 503.6005, L100.0100, L500.4050 ####[facility] [address] [place], [address] EST GFR - AA 41 mL/min Low >60 [facility] Comment on above: Result Comment: Afri can Ug[place] GFR Calc Performed By: #### L 503.6005, L100.0100, L500.4050 ####[facility] [address] [place], [address] GAP 10 Normal 5-15 [facility] Comment on above: Performed By: #### L 503.6005, L100.0100, L500.4050 ####[facility] [address] [place], [address] GFR/1.73 sq M.predicted among non-blacks MDRD (S/P/Bld) [Vol rate/Area] 34 mL/min/{1.73_m2} Low >60 [facility] Comment on above: Result Comment: Non- GFR Calc Performed By: #### L 503.6005, L100.0100, L500.4050 ####[facility] [address] [place], [address] Globulin (S) [Mass/Vol] 3.9 g/dL Normal 2.2-4.2 [facility] Comment on above: Performed By: #### L 503.6005, L100.0100, L500.4050 ####[facility] [address] [place], [address] Glucose [Mass/Vol] 141 mg/dL High 74-106 [facility] Comment on above: Result Comment: Fast ing Glucose result greater than or equal to 126 mg/dLsuggests DIABETES MELLITUS per A.D.A. criteria. Performed By: #### L 503.6005, L100.0100, L500.4050 ####[facility] [address] [place], [address] Potassium [Moles/Vol] 3.1 mmol/L Low 3.5-5.1 [facility] Comment on above: Performed By: #### L 503.6005, L100.0100, L500.4050 ####[facility] [address] [place], [address] Sodium [Moles/Vol] 136 mmol/L Normal 136-145 [facility] Comment on above: Performed By: #### L 503.6005, L100.0100, L500.4050 ####[facility] [address] [place], [address] T PROT 7.2 g/dL Normal 6.4-8.2 [facility] Comment on above: Performed By: #### L 503.6005, L100.0100, L500.4050 ####[facility] [address] [place], [address] Urea nitrogen [Mass/Vol] 16 mg/dL Normal 7-18 [facility] Comment on above: Performed By: #### L 503.6005, L100.0100, L500.4050 ####[facility] [address] [place], [address] Emergency Department Summary on 02-18-2024 Emergency Department Summary Normal [facility] L501.5425on 02-18-2024 TROPONIN-I HS 4 pg/mL Normal 3.0-54.0 [facility] Comment on above: Order Comment: 1Y Result Comment: Plea se Note: New Test Units and Gender Specific Reference Ranges. For more information see Policy Stat Procedure [place] High Sensitivity Troponin (TNIH) and attachments. Performed By: #### L 501.5446 ####[facility] [address] [place], [address] Lactic Acidon 02-18-2024 Lactate [Moles/Vol] 1.9 mmol/L Normal 0.4-1.9 [facility] Comment on above: Order Comment: Y Performed By: #### L 503.6005, L100.0100, L500.4050 ####[facility] [address] [place], [address] Urinalysis, Completeon 02-17 CAST,HYALINE 0-5 SEEN Normal 0-5 [facility] Comment on above: Order Comment: CLEAN CATCH Performed By: #### L 400.0001 ####[facility] [address] [place], [address] EPI,SQUAMOUS 0-5 SEEN Normal 5-10 [facility] Comment on above: Order Comment: CLEAN CATCH Performed By: #### L 400.0001 ####[facility] [address] [place], [address] Mucus Ql (Urine sed) 1+ /hpf Normal [facility] Comment on above: Order Comment: CLEAN CATCH Performed By: #### L 400.0001 ####[facility] [address] [place], [address] WBC 0-5 SEEN Normal 0-5 [facility] Comment on above: Order Comment: CLEAN CATCH Performed By: #### L 400.0001 ####[facility] [address] [place], [address] BACTERIA 0 SEEN Normal None Seen [facility] Comment on above: Order Comment: CLEAN CATCH Performed By: #### L 400.0001 ####[facility] [address] [place], [address] RBC 0 SEEN Normal 0-5 [facility] Comment on above: Order Comment: CLEAN CATCH Performed By: #### L 400.0001 ####[facility] [address] [place], [address] Internal Medicine Office Vis iton 01-31-2024 Internal Medicine Office Visit Normal [facility] Urinalysis, Completeon 01-30 EPI,SQUAMOUS 0-5 SEEN Normal 5-10 [facility] Comment on above: Order Comment: GARDENIA CTOR TO SPECIFY Performed By: #### L 400.0001 ####[facility] [address] [place], [address] BACTERIA 0 SEEN Normal None Seen [facility] Comment on above: Order Comment: GARDENIA CTOR TO SPECIFY Performed By: #### L 400.0001 ####[facility] [address] [place], [address] Mucus Ql (Urine sed) [address] [facility] Comment on above: Order Comment: GARDENIA CTOR TO SPECIFY Performed By: #### L 400.0001 ####[facility] [address] [place], [address] RBC 0 SEEN Normal 0-5 [facility] Comment on above: Order Comment: GARDENIA CTOR TO SPECIFY Performed By: #### L 400.0001 ####[facility] [address] [place], [address] WBC 0 SEEN Normal 0-5 [facility] Comment on above: Order Comment: GARDENIA CTOR TO SPECIFY Performed By: #### L 400.0001 ####[facility] [address] [place], [address] C peptide SerPl-mCncon 01-23 C peptide [Mass/Vol] 6.3 ng/mL High 1.1-4.4 [facility] Comment on above: Order Comment: Speci men Type: BLOOD SPECIMENOrdering Facility: [facility] Address: [address] [place] [address] Performed By: #### 1 986-9 ####[facility] LABCLIA [id number] [address] [address] [place] C peptide [Mass/Vol]on 01-23 Interpretation and review of laboratory results Abnormal [facility] C-PEPTIDE BLDon 01-24-2024 C peptide [Mass/Vol] 6.3 ng/mL High 1.1 - 4 .4 ng/mL [facility] CNOVon 01-24-2024 CNOV Office Visit ([facility]UM[facility] ) THUY WHITE ([id number]) 1965 F Date Time Provider Department 01/24/24 11:45 AM PETER SIGALA During your visit today, we recorded the following information about you: Pulse Blood pressure Weight 106/minute 123/53 142.5 kg Crystal Caputo OCCA 01/24/2024 10:55 AM Signed Thank you for choosing the [facility] Department of Endocrinology, Diabetes and Metabolism. Did you know that you need to call 48 hours in advance of your scheduled visit, if you are unable to make your appointment? The [facility]inology [facility] Metabolism [facility] thanks you for your commitment, because patients not showing to their appointment results in a lost opportunity for patients to receive [facility] health care at the [facility]. To Cancel an appointment, please choose one of the following: - Call the Appointment Call Center at [phone] - From [employer], Go to Appointments - Cancel Appts If cancelling, consider your need to reschedule to prevent further delays in your care. To Schedule an appointment, please choose one of the following: - Call the Appointment Call Center at [phone] - From [employer], Go to Appointments - Request an Appt [...] [1465] Primary Visit Diagnosis:MEN1 (multiple endocrine neoplasia) ([facility]) [E31.21] Other Visit Diagnosis:Obesity, Class III, BMI 40-49.9 (morbid obesity) ([facility]) [E66.01] Prescriptions as of 01/24/2024 - albuterol [...] by mo (more content not included)... Normal [facility] Calcium SerPl-mCncon 024 Calcium [Mass/Vol] 9.9 mg/dL Normal 8.5-10.[address] [facility] Comment on above: Order Comment: Speci men Type: BLOOD SPECIMENOrdering Facility: [facility] Address: [address] [place] [address] Performed By: #### 2 777-1, 82876-3, 89593-2, 6872-3 ####[facility] LABCLIA [id number] [place] [address] [place] CgA SerPl-mCncon 01-24-2024 Chromogranin A [Mass/Vol] 278.6 ng/mL High <187.0 [facility] Comment on above: Order Comment: Speci men Type: BLOOD SPECIMENOrdering Facility: [facility] Address: [address] [place] [address] Result Comment: The Chromogranin A test was performed using the [employer] CgA II KRYPTOR method. Results obtained with different assay methods or kits cannot be used interchangeably. Performed By: #### 9 811-1 ####[facility] LABCLIA [id number] [place] [address] [place] GLUCOSE, FASTINGon Glucose post fast [Mass/Vol] 110 mg/dL High 74 - 99 mg/dL [facility] Comment on above: [place] Diabetes As sociation guidelines state that a diabetes mellitus diagnosis is preliminarily made when the fasting plasma glucose meets or exceeds 126 mg/dL. In the absence of unequivocal hyperglycemia, results should be confirmed with repeat testing. Patients are at increased risk for diabetes mellitus (prediabetes) when the fasting glucose is 100 to 125 mg/dL. Gastrin SerPl-mCncon 024 Gastrin [Mass/Vol] 722.0 pg/mL High <115.0 [facility] Comment on above: Order Comment: Phi [facility] Type: BLOOD SPECIMEN [facility] Address: [address] [place] [address] Result Comment: The Gastrin test was performed using the [employer] Immulite chemiluminescent immunometric method. Results obtained with different assay methods or kits cannot be used interchangeably. Performed By: #### 1 558-6 #### [facility] CLIA [id number] [address] [place] [address] [place] Glucose p fast SerPl-mCncon 01-24-2024 Glucose post fast [Mass/Vol] 110 mg/dL High 74-99 [facility] Comment on above: Order Comment: Phi jasson Type: BLOOD SPECIMEN [facility] Address: [address] [place] [address] Result Comment: [place] Diabetes Association guidelines state that a diabetes mellitus diagnosis is preliminarily made when the fasting plasma glucose meets or exceeds 126 mg/dL. In the absence of unequivocal hyperglycemia, results should be confirmed with repeat testing. Patients are at increased risk for diabetes mellitus (prediabetes) when the fasting glucose is 100 to 125 mg/dL. Performed By: #### 1 558-6 #### [facility] CLIA [id number] [address] [place] [address] [place] Glucose post fast [Mass/Vol] on 01-24-2024 Interpretation and review of laboratory results Abnormal [facility] INSULIN ASSAY BLOODon 2023 Insulin Qn 14.8 u[IU]/mL 3.0 - 25.0 mU/L [facility] INSULIN LIK GR FAC Ion 01-23 INSULIN LIK GR FAC 1 122 ng/mL Normal 47-236 [facility] Comment on above: Order Comment: Speci men Type: BLOOD SPECIMEN [facility] Address: [address] [place] [address] Performed By: #### 1 558-6 #### [facility] CLIA [id number] [address] [place] [address] [place] Insulin Qnon 01-24-2024 Interpretation and review of laboratory results Normal [facility] Insulin SerPl-aCncon 024 Insulin Qn 14.8 u[IU]/mL Normal 3.0-25.0 [facility] Comment on above: Order Comment: Speci men Type: BLOOD SPECIMENOrdering Facility: [facility] Address: [address] [place] [address] Performed By: #### 2 0448-7 ####[facility] LABCLIA [id number] [place] [address] [place] Magnesium SerPl-mCncon 01-23 Magnesium [Mass/Vol] 1.8 mg/dL Normal 1.7-2.3 [facility] Comment on above: Order Comment: Speci men Type: BLOOD SPECIMENOrdering Facility: [facility] Address: [address] [place] [address] Performed By: #### 2 777-1, 27253-8, 62161-5, 2842-3 ####[facility] LABCLIA [id number] [place] [address] [place] PANCREATIC POLYPEPTIDEon PANCREATIC POLYPEPTIDE 3970 pg/mL High 0-435 [facility] Comment on above: Order Comment: Speci men Type: BLOOD SPECIMENOrdering Facility: [facility] Address: [address] [place] [address] Result Comment: Specimen diluted and results confirmed. INTERPRETIVE INFORMATION: Pancreatic Polypeptide This test was developed and its performance characteristics determined by [facility]. It has not been cleared or approved by the [place] Food and Drug Administration. This test was performed in a CLIA certified laboratory and is intended for clinical purposes. Performed By: [facility] [address] [place] [address] City Auditor: Jeronimo Lama MD, PhD CLIA Number: [id number] Performed By: #### P ANPOL ####[facility] [id number] [place] [address] PROINSULIN INTACT BLOODon PROINSULIN INTACT BLOOD 5.2 pmol/L Normal <=7.2 [facility] Comment on above: Order Comment: Speci men Type: BLOOD SPECIMEN [facility] Address: [address] [place] [address] Result Comment: Perf ormed By: [facility] [address] [place] [address] City Auditor: Jeronimo Lama MD, PhD CLIA Number: [id number] Performed By: #### 1 558-6 #### [facility] CLIA [id number] [address] [place] [address] [place] PTH-Intact SerPl-mCncon 11- Parathyrin.intact [Mass/Vol] pg/mL Low 15-65 [facility] Comment on above: Order Comment: Speci men Type: BLOOD SPECIMEN [facility] Address: [address] [place] [address] Result Comment: Resu lt rechecked. Performed By: #### 1 558-6 #### [facility] CLIA [id number] [address] [place], [place] [id number] [place] Phosphate SerPl-mCncon 01-23 Phosphate [Mass/Vol] 4.2 mg/dL Normal 2.7-4.8 [facility] Comment on above: Order Comment: Speci men Type: BLOOD SPECIMENOrdering Facility: [facility] Address: [address] [place] [address] Performed By: #### 2 777-1, 28406-7, 60849-9, 2842-3 ####[facility] LABCLIA [id number] [place] [address] [place] Prolactin SerPl-mCncon 01-23 Prolactin [Mass/Vol] 12.7 ng/mL Normal 4.4-33.8 [facility] Comment on above: Order Comment: Speci men Type: BLOOD SPECIMENOrdering Facility: [facility] Address: [address] [place] [address] Result Comment: Prol actin test is performed using the [employer] Electrochemiluminescence Immunoassay method. Results obtained with different methods or kits cannot be used interchangeably. Performed By: #### 2 777-1, 25543-7, 47097-6, 2842-3 ####[facility] LABCLIA [id number] [place] [id number] [place] SOMATOSTATIN BLDon 4 SOMATOSTATIN <21 Normal ADULT: < OR = 30 [facility] Comment on above: Order Comment: Speci men Type: BLOOD SPECIMENOrdering Facility: [facility] Address: [address] [place] [address] Result Comment: This test was developed and its analytical performance characteristics have been determined by [facility]. It has not been cleared or approved by FDA. This assay has been validated pursuant to the CLIA regulations and is used for clinical purposes. TEST PERFORMED AT: [id number] [facility] [address] [address] Neuroscience Specialist: Stephan Cardona MD, PhD, GEOFFREY Performed By: #### S SHANNON ####[facility] [id number] [address] [place]WE[place] [address] VASOACTIVE INTESTINAL POLYPE PTIDE (VIP), PLASMAon 01-24-2024 VASOACTIVE INTESTINAL POLYPEPTIDE 20.0 pg/mL Normal 0.0-89.1 [facility] Comment on above: Order Comment: Speci men Type: BLOOD SPECIMENOrdering Facility: [facility] Address: [address] [place] [address] Result Comment: This test was developed and its performance characteristics determined by [facility]. It has not been cleared or approved by the U.S. Food and Drug Administration. This test was performed in a CLIA-certified laboratory and is intended for clinical purposes. Performed By: [facility] [address] [place] [address] City Auditor: Jeronimo Lama MD, PhD CLIA Number: [id number] Performed By: #### V IP ####[facility] [id number] [place] [address] MR/BMS.BPon 01-19-2024 MR/BMS.BP Normal [facility] Basic Metabolic Profile (BMP )on 01-07-2024 BUN/CRE 11.3 RATIO Normal 10-20 [facility] Comment on above: Performed By: #### L 501.5200, L500.2500, L501.3620 ####[facility] [address] [place], [address] CA,Total 8.3 mg/dL Low 8.5-10.1 [facility] Comment on above: Performed By: #### L 501.5200, L500.2500, L501.3620 ####[facility] [address] [place], [address] Chloride [Moles/Vol] 99 mmol/L Normal 98-[address] [facility] Comment on above: Performed By: #### L 501.5200, L500.2500, L501.3620 ####[facility] [address] [place], [address] CO2 [Moles/Vol] 25.0 mmol/L Normal 21.0-32.0 [facility] Comment on above: Performed By: #### L 501.5200, L500.2500, L501.3620 ####[facility] [address] [place], [address] Creatinine [Mass/Vol] 1.94 mg/dL High 0.55-1.02 [facility] Comment on above: Result Comment: The validity of the calculated GFR GFRAA in patients over70 years has not been determined. Clinical correlation isessential. Performed By: #### L 501.5200, L500.2500, L501.3620 ####[facility] [address] [place], [address] EST GFR - AA 34 mL/min Low >60 [facility] Comment on above: Result Comment: Afri can [place] GFR Calc Performed By: #### L 501.5200, L500.2500, L501.3620 ####[facility] [address] [place], [address] GAP 12 Normal 5-15 [facility] Comment on above: Performed By: #### L 501.5200, L500.2500, L501.3620 ####[facility] [address] [place], [address] GFR/1.73 sq M.predicted among non-blacks MDRD (S/P/Bld) [Vol rate/Area] 28 mL/min/{1.73_m2} Low >60 [facility] Comment on above: Result Comment: Non- GFR Calc Performed By: #### L 501.5200, L500.2500, L501.3620 ####[facility] [address] [place], [address] Glucose [Mass/Vol] 63 mg/dL Low 74-106 [facility] Comment on above: Performed By: #### L 501.5200, L500.2500, L501.3620 ####[facility] [address] [place], [address] Potassium [Moles/Vol] 3.4 mmol/L Low 3.5-5.1 [facility] Comment on above: Performed By: #### L 501.5200, L500.2500, L501.3620 ####[facility] [address] [place], [address] Sodium [Moles/Vol] 136 mmol/L Normal 136-145 [facility] Comment on above: Performed By: #### L 501.5200, L500.2500, L501.3620 ####[facility] [address] [place], [address] Urea nitrogen [Mass/Vol] 22 mg/dL High 7-18 [facility] Comment on above: Performed By: #### L 501.5200, L500.2500, L501.3620 ####[facility] [address] [place], [address] BUN Normal 7-18 [facility] Comment on above: Result Comment: HEMO LYSED Performed By: #### L 500.2500 ####[facility] [address] [place], [address] BUN/CRE Normal 10-20 [facility] Comment on above: Result Comment: HEMO LYSED Performed By: #### L 500.2500 ####[facility] [address] [place], [address] CA,Total Normal 8.5-10.1 [facility] Comment on above: Result Comment: HEMO LYSED Performed By: #### L 500.2500 ####[facility] [address] [place], [address] CL Normal 98-107 [facility] Comment on above: Result Comment: HEMO LYSED Performed By: #### L 500.2500 ####[facility] [address] [place], [address] CO2 Normal 21.0-32.0 [facility] Comment on above: Result Comment: HEMO LYSED Performed By: #### L 500.2500 ####[facility] [address] [place], [address] CREAT,SERUM Normal 0.55-1.02 [facility] Comment on above: Result Comment: HEMO LYSED Performed By: #### L 500.2500 ####[facility] [address] [place], [address] EST GFR Normal >60 [facility] Comment on above: Result Comment: HEMO LYSED Performed By: #### L 500.2500 ####[facility] [address] [place], [address] EST GFR - AA Normal >60 [facility] Comment on above: Result Comment: HEMO LYSED Performed By: #### L 500.2500 ####[facility] [address] [place], [address] GAP Normal 5-15 [facility] Comment on above: Result Comment: HEMO LYSED Performed By: #### L 500.2500 ####[facility] [address] [place], [address] GLU Normal 74-106 [facility] Comment on above: Result Comment: HEMO LYSED Performed By: #### L 500.2500 ####[facility] [address] [place], [address] Potassium Normal 3.5-5.1 [facility] Comment on above: Result Comment: HEMO LYSED Performed By: #### L 500.2500 ####[facility] [address] [place], [address] Basic Metabolic Profile (BMP) Normal 136-145 [facility] Comment on above: Result Comment: HEMO LYSED Performed By: #### L 500.2500 ####[facility] [address] [place], [address] CBC W/Diff, Automatedon 11-0 Anisocytosis Ql (Bld) 2+ Normal [facility] Comment on above: Performed By: #### L 100.0100 ####[facility] [address] [place], [address] MICROCYTIC 1+ Normal [facility] Comment on above: Performed By: #### L 100.0100 ####[facility] [address] [place], [address] PLT EST SLT INC Normal ADEQ [facility] Comment on above: Performed By: #### L 100.0100 ####[facility] [address] [place], [address] SMEAR COMMENT SCANNED Normal [facility] Comment on above: Performed By: #### L 100.0100 ####[facility] [address] [place], [address] TARGET CELLS RARE Normal [facility] Comment on above: Performed By: #### L 100.0100 ####[facility] [address] [place], [address] CPK Total, Creatine Kinaseon 01-07-2024 CPK TOTAL 184 U/L Normal 26-192 [facility] Comment on above: Performed By: #### L 501.5200, L500.2500, L501.3620 ####[facility] [address] [place], [address] Chest 1 View (Portable)on Chest 1 View (Portable) Normal [facility] Emergency Department Summary on 01-07-2024 Emergency Department Summary Normal [facility] Magnesiumon 01-07-2024 Magnesium [Mass/Vol] 1.7 mg/dL Normal 1.6-2.[address] [facility] Comment on above: Performed By: #### L 501.5200, L500.2500, L501.3620 ####[facility] [address] [place], [address] CBC W/Diff, Automatedon 12-06 Absolute Lymph 1.99 X10 3/uL Normal 0.83-4.51 [facility] Comment on above: Performed By: #### L 506.1000, L501.9520, L100.0100, L506.0400, L500.4050 ####[facility] [address] [place], [address] Absolute Neut 3.9 X10 3/uL Normal 2.0-7.7 [facility] Comment on above: Performed By: #### L 506.1000, L501.9520, L100.0100, L506.0400, L500.4050 ####[facility] [address] [place], [address] Basophils/100 WBC (Bld) 0.7 % Normal 0-1 [facility] Comment on above: Performed By: #### L 506.1000, L501.9520, L100.0100, L506.0400, L500.4050 ####[facility] [address] [place], [address] Eosinophils/100 WBC (Bld) 10.7 % High 0-5 [facility] Comment on above: Performed By: #### L 506.1000, L501.9520, L100.0100, L506.0400, L500.4050 ####[facility] [address] [place], [address] Erythrocyte distribution width (RBC) [Ratio] 19.8 % High 11.6-14.6 [facility] Comment on above: Performed By: #### L 506.1000, L501.9520, L100.0100, L506.0400, L500.4050 ####[facility] [address] [place], [address] Hematocrit (Bld) [Volume fraction] 37.8 % Normal 37-47 [facility] Comment on above: Performed By: #### L 506.1000, L501.9520, L100.0100, L506.0400, L500.4050 ####[facility] [address] [place], [address] Hemoglobin (Bld) [Mass/Vol] 11.1 g/dL Low 12.0-15.0 [facility] Comment on above: Performed By: #### L 506.1000, L501.9520, L100.0100, L506.0400, L500.4050 ####[facility] [address] [place], [address] IG% 0.300 Normal 0.0-0.9 [facility] Comment on above: Result Comment: IG% - Immature Granulocytes (promyelocytes, myelocytes andmetamyelocytes) > 1% indicates that a LEFT SHIFT is Present. Performed By: #### L 506.1000, L501.9520, L100.0100, L506.0400, L500.4050 ####[facility] [address] [place], [address] Lymphocytes/100 WBC (Bld) 27.3 % Normal 19-41 [facility] Comment on above: Performed By: #### L 506.1000, L501.9520, L100.0100, L506.0400, L500.4050 ####[facility] [address] [place], [address] MCH (RBC) [Entitic mass] 21.8 pg Low 27.0-32.0 [facility] Comment on above: Performed By: #### L 506.1000, L501.9520, L100.0100, L506.0400, L500.4050 ####[facility] [address] [place], [address] MCHC (RBC) [Mass/Vol] 29.4 g/dL Low 32-36 [facility] Comment on above: Performed By: #### L 506.1000, L501.9520, L100.0100, L506.0400, L500.4050 ####[facility] [address] [place], [address] MCV (RBC) [Entitic vol] 74.1 fL Low 81-99 [facility] Comment on above: Performed By: #### L 506.1000, L501.9520, L100.0100, L506.0400, L500.4050 ####[facility] [address] [place], [address] Monocytes/100 WBC (Bld) 8.0 % Normal 0-10 [facility] Comment on above: Performed By: #### L 506.1000, L501.9520, L100.0100, L506.0400, L500.4050 ####[facility] [address] [place], [address] Neutrophils/100 WBC (Bld) 53.0 % Normal 47-70 [facility] Comment on above: Performed By: #### L 506.1000, L501.9520, L100.0100, L506.0400, L500.4050 ####[facility] [address] [place], [address] Nucleated RBC (Bld) [#/Vol] 0 10*3/uL Normal 0-5 [facility] Comment on above: Performed By: #### L 506.1000, L501.9520, L100.0100, L506.0400, L500.4050 ####[facility] [address] [place], [address] Platelet mean volume (Bld) [Entitic vol] 10.2 fL Normal 6.2-12.0 [facility] Comment on above: Performed By: #### L 506.1000, L501.9520, L100.0100, L506.0400, L500.4050 ####[facility] [address] [place], [address] Platelets (Bld) [#/Vol] 411 10*3/uL Normal 150-450 [facility] Comment on above: Performed By: #### L 506.1000, L501.9520, L100.0100, L506.0400, L500.4050 ####[facility] [address] [place], [address] RBC (Bld) [#/Vol] 5.10 10*6/uL Normal 4.2-5.4 [facility] Comment on above: Performed By: #### L 506.1000, L501.9520, L100.0100, L506.0400, L500.4050 ####[facility] [address] [place], [address] RDW SD 51.9 fl High 35.1-43.9 [facility] Comment on above: Performed By: #### L 506.1000, L501.9520, L100.0100, L506.0400, L500.4050 ####[facility] [address] [place], [address] WBC (Bld) [#/Vol] 7.3 10*3/uL Normal 4.4-11.0 [facility] Comment on above: Performed By: #### L 506.1000, L501.9520, L100.0100, L506.0400, L500.4050 ####[facility] [address] [place], [address] Chest PA and Lateralon 12-23 Chest PA and Lateral Normal [facility] Comprehensive Metabolic Prof ilon 12-24-2023 Albumin [Mass/Vol] 3.4 g/dL Normal 3.2-5.0 [facility] Comment on above: Performed By: #### L 506.1000, L501.9520, L100.0100, L506.0400, L500.4050 ####[facility] [address] [place], [address] Albumin/Globulin [Mass ratio] 0.9 {ratio} Normal 0.9-2.4 [facility] Comment on above: Performed By: #### L 506.1000, L501.9520, L100.0100, L506.0400, L500.4050 ####[facility] [address] [place], [address] ALK P 96 U/L Normal 45-117 [facility] Comment on above: Performed By: #### L 506.1000, L501.9520, L100.0100, L506.0400, L500.4050 ####[facility] [address] [place], [address] ALT [Catalytic activity/Vol] 13 U/L Normal 13-56 [facility] Comment on above: Performed By: #### L 506.1000, L501.9520, L100.0100, L506.0400, L500.4050 ####[facility] [address] [place], [address] AST [Catalytic activity/Vol] 13 U/L Low 15-37 [facility] Comment on above: Performed By: #### L 506.1000, L501.9520, L100.0100, L506.0400, L500.4050 ####[facility] [address] [place], [address] Bilirubin [Mass/Vol] 0.40 mg/dL Normal 0.20-1.[address] [facility] Comment on above: Result Comment: For patients on eltrombopag therapy, use of Dimension [place] TBIL is not recommended. Performed By: #### L 506.1000, L501.9520, L100.0100, L506.0400, L500.4050 ####[facility] [address] [place], [address] BUN/CRE 17.7 RATIO Normal 10-20 [facility] Comment on above: Performed By: #### L 506.1000, L501.9520, L100.0100, L506.0400, L500.4050 ####[facility] [address] [place], [address] CA,Total 8.8 mg/dL Normal 8.5-10.1 [facility] Comment on above: Performed By: #### L 506.1000, L501.9520, L100.0100, L506.0400, L500.4050 ####[facility] [address] [place], [address] Chloride [Moles/Vol] 107 mmol/L Normal 98-[address] [facility] Comment on above: Performed By: #### L 506.1000, L501.9520, L100.0100, L506.0400, L500.4050 ####[facility] [address] [place], [address] CO2 [Moles/Vol] 29.0 mmol/L Normal 21.0-32.0 [facility] Comment on above: Performed By: #### L 506.1000, L501.9520, L100.0100, L506.0400, L500.4050 ####[facility] [address] [place], [address] Creatinine [Mass/Vol] 1.30 mg/dL High 0.55-1.02 [facility] Comment on above: Result Comment: The validity of the calculated GFR GFRAA in patients over70 years has not been determined. Clinical correlation isessential. Performed By: #### L 506.1000, L501.9520, L100.0100, L506.0400, L500.4050 ####[facility] [address] [place], [address] EST GFR - AA 54 mL/min Low >60 [facility] Comment on above: Result Comment: Afri can Ugand[place] GFR Calc Performed By: #### L 506.1000, L501.9520, L100.0100, L506.0400, L500.4050 ####[facility] [address] [place], [address] GAP 5 Normal 5-15 [facility] Comment on above: Performed By: #### L 506.1000, L501.9520, L100.0100, L506.0400, L500.4050 ####[facility] [address] [place], [address] GFR/1.73 sq M.predicted among non-blacks MDRD (S/P/Bld) [Vol rate/Area] 45 mL/min/{1.73_m2} Low >60 [facility] Comment on above: Result Comment: Non- GFR Calc Performed By: #### L 506.1000, L501.9520, L100.0100, L506.0400, L500.4050 ####[facility] [address] [place], [address] Globulin (S) [Mass/Vol] 3.6 g/dL Normal 2.2-4.2 [facility] Comment on above: Performed By: #### L 506.1000, L501.9520, L100.0100, L506.0400, L500.4050 ####[facility] [address] [place], [address] Glucose [Mass/Vol] 102 mg/dL Normal 74-106 [facility] Comment on above: Result Comment: Fast ing Glucose result from 100 to 125 mg/dLsuggests IMPAIRED HOMEOSTASIS per A.D.A. criteria. Performed By: #### L 506.1000, L501.9520, L100.0100, L506.0400, L500.4050 ####[facility] [address] [place], [address] Potassium [Moles/Vol] 3.7 mmol/L Normal 3.5-5.1 [facility] Comment on above: Performed By: #### L 506.1000, L501.9520, L100.0100, L506.0400, L500.4050 ####[facility] [address] [place], [address] Sodium [Moles/Vol] 141 mmol/L Normal 136-145 [facility] Comment on above: Performed By: #### L 506.1000, L501.9520, L100.0100, L506.0400, L500.4050 ####[facility] [address] [place], [address] T PROT 7.0 g/dL Normal 6.4-8.2 [facility] Comment on above: Performed By: #### L 506.1000, L501.9520, L100.0100, L506.0400, L500.4050 ####[facility] [address] [place], [address] Urea nitrogen [Mass/Vol] 23 mg/dL High 7-18 [facility] Comment on above: Performed By: #### L 506.1000, L501.9520, L100.0100, L506.0400, L500.4050 ####[facility] [address] [place], [address] Endocrinology Visit Reporton 12-24-2023 Endocrinology Visit Report Normal [facility] T4 Free Directon 12-24-2023 T4 FREE DIRECT 0.93 ng/dL Normal 0.76-1.46 [facility] Comment on above: Performed By: #### L 506.1000, L501.9520, L100.0100, L506.0400, L500.4050 ####[facility] [address] [place], [address] Thyroid Stim Hormone (TSH)on 12-24-2023 TSH 3.010 uIU/mL Normal 0.358-3.740 [facility] Comment on above: Performed By: #### L 506.1000, L501.9520, L100.0100, L506.0400, L500.4050 ####[facility] [address] [place], [address] Vitamin D,25 Hydroxyon 12-23 Vitamin D 25-OH 29.9 ng/mL Normal [facility] Comment on above: Result Comment: Carol min D 25(OH) Status Range Deficiency <20 ng/mL (50nmol/L) Insufficiency 20 - 30 ng/mL (50 - 75 nmol/L) Sufficiency 30 - 100 ng/mL (75 - 250 nmol/L) Toxicity >100 ng/mL (>250 nmol/L) Performed By: #### L 506.1000, L501.9520, L100.0100, L506.0400, L500.4050 ####[facility] [address] [place], [address] 25-HYDROXY D2+D3on 25-hydroxyvitamin D3 [Mass/Vol] 35.3 ng/mL Normal 30.0-100.0 [facility] Comment on above: Order Comment: Speci men Type: BLOOD SPECIMEN Ordering Facility: [facility] Address: [facility] [place] [address] Result Comment: Defi cient: <20.1 ng/mL Insufficient: 20.1 - 29.9 ng/mL Sufficient: 30.0 - 100.0 ng/mL Toxic: >150.0 ng/mL Reference: Obi ENAMORADO, N Engl J Med (2007)[id number] This test was developed and its performance characteristics determined by the Pathology and Laboratory Medicine [facility] at the [facility]. The U.S. Food and Drug Administration has not approved or cleared this test, however, FDA clearance or approval is not currently required for clinical use. Performed By: #### 1 558-6 #### [facility] CLIA [id number] [address] [place] [address] [place] Vitamin D2 [Mass/Vol] <5.0 Normal [facility] Comment on above: Order Comment: Speci men Type: BLOOD SPECIMEN Ordering Facility: [facility] Address: [address] [place] [address] Performed By: #### 1 558-6 #### [facility] CLIA [id number] [address] [place] [address] [place] Vitamin D3 [Mass/Vol] 35.3 ng/mL Normal [facility] Comment on above: Order Comment: Speci men Type: BLOOD SPECIMEN Ordering Facility: [facility] Address: [address] [place] [address] Performed By: #### 1 558-6 #### [facility] CLIA [id number] [address] [place] [address] [place] CBC panel Auto (Bld)on 11-30 Erythrocyte distribution width (RBC) [Ratio] 19.7 % High 11.5-15.0 [facility] Comment on above: Order Comment: Speci men Type: BLOOD SPECIMEN Ordering Facility: [facility] Address: [address] [place] [address] Performed By: #### 1 558-6 #### [facility] CLIA [id number] [address] [place] [address] [place] Hematocrit (Bld) [Volume fraction] 36.1 % Normal 36.0-46.0 [facility] Comment on above: Order Comment: Speci men Type: BLOOD SPECIMEN Ordering Facility: [facility] Address: [address] [place] [address] Performed By: #### 1 558-6 #### [facility] CLIA [id number] [address] [place] [address] [place] Hemoglobin (Bld) [Mass/Vol] 11.2 g/dL Low 11.5-15.5 [facility] Comment on above: Order Comment: Speci men Type: BLOOD SPECIMEN Ordering Facility: [facility] Address: [address] [place] [address] Performed By: #### 1 558-6 #### [facility] CLIA [id number] [address] [place] [address] [place] MCH (RBC) [Entitic mass] 22.6 pg Low 26.0-34.0 [facility] Comment on above: Order Comment: Speci men Type: BLOOD SPECIMEN Ordering Facility: [facility] Address: [address] [place] [address] Performed By: #### 1 558-6 #### [facility] CLIA [id number] [address] [place] [address] [place] MCHC (RBC) [Mass/Vol] 31.0 g/dL Normal 30.5-36.0 [facility] Comment on above: Order Comment: Speci men Type: BLOOD SPECIMEN Ordering Facility: [facility] Address: [address] [place] [address] Performed By: #### 1 558-6 #### [facility] CLIA [id number] [address] [place] [address] [place] MCV (RBC) [Entitic vol] 72.8 fL Low 80.0-100.0 [facility] Comment on above: Order Comment: Speci men Type: BLOOD SPECIMEN Ordering Facility: [facility] Address: [address] [place] [address] Performed By: #### 1 558-6 #### [facility] CLIA [id number] [address] [place] [address] [place] Nucleated RBC (Bld) [#/Vol] 10*3/uL Normal <0.01 [facility] Comment on above: Order Comment: Speci men Type: BLOOD SPECIMEN Ordering Facility: [facility] Address: [address] [place] [address] Performed By: #### 1 558-6 #### [facility] CLIA [id number] [address] [place] [address] [place] Platelet mean volume (Bld) [Entitic vol] 9.9 fL Normal 9.0-12.7 [facility] Comment on above: Order Comment: Speci men Type: BLOOD SPECIMEN Ordering Facility: [facility] Address: [address] [place] [address] Performed By: #### 1 558-6 #### [facility] CLIA [id number] [address] [place] [address] [place] Platelets (Bld) [#/Vol] 396 10*3/uL Normal 150-400 [facility] Comment on above: Order Comment: Speci men Type: BLOOD SPECIMEN Ordering Facility: [facility] Address: [address] [place] [address] Performed By: #### 1 558-6 #### [facility] CLIA [id number] [address] [place] [address] [place] RBC (Bld) [#/Vol] 4.96 10*6/uL Normal 3.90-5.20 [facility] Comment on above: Order Comment: Speci men Type: BLOOD SPECIMEN Ordering Facility: [facility] Address: [address] [place] [address] Performed By: #### 1 558-6 #### [facility] CLIA [id number] [address] [place] [address] [place] WBC (Bld) [#/Vol] 7.17 10*3/uL Normal 3.70-11.00 [facility] Comment on above: Order Comment: Speci men Type: BLOOD SPECIMEN Ordering Facility: [facility] Address: [address] [place] [address] Performed By: #### 1 558-6 #### [facility] CLIA [id number] [address] [place] [address] [place] PTH-Intact SerPl-mCncon 11-07 Parathyrin.intact [Mass/Vol] pg/mL Low 15-65 [facility] Comment on above: Order Comment: Speci men Type: BLOOD SPECIMENOrdering Facility: [facility] Address: [address] [place] [address] Result Comment: Resu lt rechecked. Performed By: #### 2 731-8 ####[facility] [id number] [place] [address] [place] Prot/Creat Uron 12-01-2023 Protein/Creatinine (U) [Mass ratio] 0.08 mg/mg Normal <0.15 [facility] Comment on above: Order Comment: Phi men Type: BLOOD SPECIMEN Ordering Facility: [facility] Address: [address] [place] [address] Result Comment: Adul t Proteinuria Categories: <0.15 mg/mg is considered normal to mildly increased 0.15 - 0.50 mg/mg is considered moderately increased >0.50 mg/mg is considered severely increased KDIGO. (2013). KDIGO 2012 Clinical Practice Guideline for the Evaluation and Management of Chronic Kidney Disease. Official Journal of the International Society of Nephrology, 3(1), 1-150. Performed By: #### 1 558-6 #### [facility] CLIA [id number] [address] [place] [address] [place] Protein/Creatinine (U) [Mass ratio]on 12-01-2023 Creatinine (U) [Mass/Vol] 164.9 mg/dL Normal 20.0-300.0 [facility] Comment on above: Order Comment: Speci men Type: BLOOD SPECIMEN Ordering Facility: [facility] Address: [address] [place] [address] Performed By: #### 1 558-6 #### [facility] CLIA [id number] [address] [place] [address] [place] Protein (U) [Mass/Vol] 13 mg/dL Normal 0-20 [facility] Comment on above: Order Comment: Speci men Type: BLOOD SPECIMEN Ordering Facility: [facility] Address: [address] [place] [address] Performed By: #### 1 558-6 #### [facility] CLIA [id number] [address] [place] [address] [place] Renal function 2000 panelon 12-01-2023 Albumin [Mass/Vol] 3.9 g/dL Normal 3.9-4.[address] [facility] Comment on above: Order Comment: Speci men Type: BLOOD SPECIMEN Ordering Facility: [facility] Address: [address] [place] [address] Performed By: #### 1 558-6 #### [facility] CLIA [id number] [address] [place] [address] [place] Anion gap [Moles/Vol] 12 mmol/L Normal 8-15 [facility] Comment on above: Order Comment: Speci men Type: BLOOD SPECIMEN Ordering Facility: [facility] Address: [address] [place] [address] Performed By: #### 1 558-6 #### [facility] CLIA [id number] [address] [place] [address] [place] Calcium [Mass/Vol] 9.0 mg/dL Normal 8.5-10.[address] [facility] Comment on above: Order Comment: Speci men Type: BLOOD SPECIMEN Ordering Facility: [facility] Address: [address] [place] [address] Performed By: #### 1 558-6 #### [facility] CLIA [id number] [address] [place] [address] [place] Chloride [Moles/Vol] 102 mmol/L Normal 98-107 [facility] Comment on above: Order Comment: Speci men Type: BLOOD SPECIMEN Ordering Facility: [facility] Address: [address] [place] [address] Performed By: #### 1 558-6 #### [facility] CLIA [id number] [address] [place] [address] [place] CO2 [Moles/Vol] 26 mmol/L Normal 22-30 [facility] Comment on above: Order Comment: Speci men Type: BLOOD SPECIMEN Ordering Facility: [facility] Address: [address] [place] [address] Performed By: #### 1 558-6 #### [facility] CLIA [id number] [address] [place] [address] [place] Creatinine [Mass/Vol] 1.27 mg/dL High 0.58-0.96 [facility] Comment on above: Order Comment: Speci men Type: BLOOD SPECIMEN Ordering Facility: [facility] Address: [address] [place] [address] Performed By: #### 1 558-6 #### [facility] CLIA [id number] [address] [place] [address] [place] Creatinine and Glomerular filtration rate.predicted panel (S/P/Bld) 49 mL/min/1.73m??? Low >=60 [facility] Comment on above: Order Comment: Speci men Type: BLOOD SPECIMEN [facility] Facility[facility] Address: [address] [place] [address] Result Comment: Daisha mated Glomerular Filtration Rate [...] GFR. Performed By: #### 1 558-6 #### [facility] CLIA [id number] [address] [place] [address] [place] Glucose [Mass/Vol] 101 mg/dL High 74-[address] [facility] Comment on above: Order Comment: Phi spaulding Type: BLOOD SPECIMEN Ordering Facility: [facility] Address: [address] [place] [address] Result Comment: The [place] Diabetes Association (ADA) provides guidance for cutoff [...] Standards of Medical Care in Diabetes 2016, [place] [employer]. Diabetes Care. 2016.39(Suppl 1). Performed By: #### 1 558-6 #### [facility] CLIA [id number] [address] [place] [address] [place] Phosphate [Mass/Vol] 4.7 mg/dL Normal 2.7-4.8 [facility] Comment on above: Order Comment: Yulieti men Type: BLOOD SPECIMEN Ordering Facility: [facility] Address: [address] [place] [address] Performed By: #### 1 558-6 #### [facility] CLIA [id number] [address] [place] [address] [place] Potassium [Moles/Vol] 3.8 mmol/L Normal 3.7-5.1 [facility] Comment on above: Order Comment: Phi spaulding Type: BLOOD SPECIMEN Ordering Facility: [facility] Address: [address] [place] [address] Performed By: #### 1 558-6 #### [facility] CLIA [id number] [address] [place] [address] [place] Sodium [Moles/Vol] 140 mmol/L Normal 136-[address] [facility] Comment on above: Order Comment: Speci men Type: BLOOD SPECIMEN Ordering Facility: [facility] Address: [address] [place] [address] Performed By: #### 1 558-6 #### [facility] CLIA [id number] [address] [place] [address] [place] Urea nitrogen [Mass/Vol] 13 mg/dL Normal 7-21 [facility] Comment on above: Order Comment: Speci men Type: BLOOD SPECIMEN Ordering Facility: [facility] Address: [address] [place] [address] Performed By: #### 1 558-6 #### [facility] CLIA [id number] [address] [place] [address] [place] Urgent Care Visit Reporton 0 11-09-2023 Urgent Care Visit Report Normal [facility] Venous Duplex US - Farhad Extre mon 11-02-2023 Venous Duplex US - Farhad Extrem Normal [facility] Emergency Department Summary on 11-01-2023 Emergency Department Summary Normal [facility] Basic Metabolic Profile (BMP )on 10-15-2023 BUN/CRE 10.7 RATIO Normal 10-20 [facility] Comment on above: Performed By: #### L 100.0100, L500.2500 ####[facility] [address] [place], [address] CA,Total 7.9 mg/dL Low 8.5-10.1 [facility] Comment on above: Performed By: #### L 100.0100, L500.2500 ####[facility] [address] [place], [address] Chloride [Moles/Vol] 103 mmol/L Normal 98-[address] [facility] Comment on above: Performed By: #### L 100.0100, L500.2500 ####[facility] [address] [place], [address] CO2 [Moles/Vol] 30.0 mmol/L Normal 21.0-32.0 [facility] Comment on above: Performed By: #### L 100.0100, L500.2500 ####[facility] [address] [place], [address] Creatinine [Mass/Vol] 1.68 mg/dL High 0.55-1.02 [facility] Comment on above: Result Comment: The validity of the calculated GFR GFRAA in patients over70 years has not been determined. Clinical correlation isessential. Performed By: #### L 100.0100, L500.2500 ####[facility] [address] [place], [address] ECRCL 56.83 ml/min Normal [facility] Comment on above: Performed By: #### L 100.0100, L500.2500 ####[facility] [address] [place], [address] EST GFR - AA 40 mL/min Low >60 [facility] Comment on above: Result Comment: Afri can [place] GFR Calc Performed By: #### L 100.0100, L500.2500 ####[facility] [address] [place], [address] GAP 8 Normal 5-15 [facility] Comment on above: Performed By: #### L 100.0100, L500.2500 ####[facility] [address] [place], [address] GFR/1.73 sq M.predicted among non-blacks MDRD (S/P/Bld) [Vol rate/Area] 33 mL/min/{1.73_m2} Low >60 [facility] Comment on above: Result Comment: Non- GFR Calc Performed By: #### L 100.0100, L500.2500 ####[facility] [address] [place], [address] Glucose [Mass/Vol] 87 mg/dL Normal 74-106 [facility] Comment on above: Performed By: #### L 100.0100, L500.2500 ####[facility] [address] [place], [address] Potassium [Moles/Vol] 3.4 mmol/L Low 3.5-5.1 [facility] Comment on above: Performed By: #### L 100.0100, L500.2500 ####[facility] [address] [place], [address] Sodium [Moles/Vol] 141 mmol/L Normal 136-145 [facility] Comment on above: Performed By: #### L 100.0100, L500.2500 ####[facility] [address] [place], [address] Urea nitrogen [Mass/Vol] 18 mg/dL Normal 7-18 [facility] Comment on above: Performed By: #### L 100.0100, L500.2500 ####[facility] [address] [place], [address] CBC W/Diff, Automatedon 08-0 9-2023 Absolute Lymph 2.27 X10 3/uL Normal 0.83-4.51 [facility] Comment on above: Performed By: #### L 100.0100, L500.2500 ####[facility] [address] [place], [address] Absolute Neut 4.9 X10 3/uL Normal 2.0-7.7 [facility] Comment on above: Performed By: #### L 100.0100, L500.2500 ####[facility] [address] [place], [address] Basophils/100 WBC (Bld) 0.8 % Normal 0-1 [facility] Comment on above: Performed By: #### L 100.0100, L500.2500 ####[facility] [address] [place], [address] Eosinophils/100 WBC (Bld) 7.4 % High 0-5 [facility] Comment on above: Performed By: #### L 100.0100, L500.2500 ####[facility] [address] [place], [address] Erythrocyte distribution width (RBC) [Ratio] 19.4 % High 11.6-14.6 [facility] Comment on above: Performed By: #### L 100.0100, L500.2500 ####[facility] [address] [place], [address] Hematocrit (Bld) [Volume fraction] 36.5 % Low 37-47 [facility] Comment on above: Performed By: #### L 100.0100, L500.2500 ####[facility] [address] [place], [address] Hemoglobin (Bld) [Mass/Vol] 11.2 g/dL Low 12.0-15.0 [facility] Comment on above: Performed By: #### L 100.0100, L500.2500 ####[facility] [address] [place], [address] IG% 0.200 Normal 0.0-0.9 [facility] Comment on above: Result Comment: IG% - Immature Granulocytes (promyelocytes, myelocytes andmetamyelocytes) > 1% indicates that a LEFT SHIFT is Present. Performed By: #### L 100.0100, L500.2500 ####[facility] [address] [place], [address] Lymphocytes/100 WBC (Bld) 26.5 % Normal 19-41 [facility] Comment on above: Performed By: #### L 100.0100, L500.2500 ####[facility] [address] [place], [address] MCH (RBC) [Entitic mass] 22.0 pg Low 27.0-32.0 [facility] Comment on above: Performed By: #### L 100.0100, L500.2500 ####[facility] [address] [place], [address] MCHC (RBC) [Mass/Vol] 30.7 g/dL Low 32-36 [facility] Comment on above: Performed By: #### L 100.0100, L500.2500 ####[facility] [address] [place], [address] MCV (RBC) [Entitic vol] 71.7 fL Low 81-99 [facility] Comment on above: Performed By: #### L 100.0100, L500.2500 ####[facility] [address] [place], [address] Monocytes/100 WBC (Bld) 8.4 % Normal 0-10 [facility] Comment on above: Performed By: #### L 100.0100, L500.2500 ####[facility] [address] [place], [address] Neutrophils/100 WBC (Bld) 56.7 % Normal 47-70 [facility] Comment on above: Performed By: #### L 100.0100, L500.2500 ####[facility] [address] [place], [address] Nucleated RBC (Bld) [#/Vol] 0 10*3/uL Normal 0-5 [facility] Comment on above: Performed By: #### L 100.0100, L500.2500 ####[facility] [address] [place], [address] Platelet mean volume (Bld) [Entitic vol] 9.7 fL Normal 6.2-12.0 [facility] Comment on above: Performed By: #### L 100.0100, L500.2500 ####[facility] [address] [place], [address] Platelets (Bld) [#/Vol] 344 10*3/uL Normal 150-450 [facility] Comment on above: Performed By: #### L 100.0100, L500.2500 ####[facility] [address] [place], [address] RBC (Bld) [#/Vol] 5.09 10*6/uL Normal 4.2-5.4 [facility] Comment on above: Performed By: #### L 100.0100, L500.2500 ####[facility] [address] [place], [address] RDW SD 49.2 fl High 35.1-43.9 [facility] Comment on above: Performed By: #### L 100.0100, L500.2500 ####[facility] [address] [place], [address] WBC (Bld) [#/Vol] 8.6 10*3/uL Normal 4.4-11.0 [facility] Comment on above: Performed By: #### L 100.0100, L500.2500 ####[facility] [address] [place], [address] Emergency Department Summary on 10-15-2023 Emergency Department Summary Normal [facility] MR/BMS.BPon 10-13-2023 MR/BMS.BP Normal [facility] Echo Completeon 10-12-2023 Echo Complete Normal [facility] Internal Medicine Office Vis iton 09-13-2023 Internal Medicine Office Visit Normal [facility] CNOVon 08-27-2023 CNOV Office Visit (UCWSTR ) THUY WHITE ([id number]) 1965 F Date Time Provider Department 08/27/23 4:00 PM SYED KRUGER [facility] During your visit today, we recorded [...] further evaluation care. Will be reevaluated at [facility]. Denied transport. Syed Kruger APRN.CNP Allergies As [...] toe [L03.039] 09/04/2010 01/31/2014 Nonunion of fracture [IRV0928] 12/10/2010 01/31/2014 Other complications due to other internal ortho*01/21/2011 01/31/2014 Gastric bypass status for obesity [Z98.84] CKD (chronic kidney disease) stage 3, GFR 30-59*01/31/2014 ADHD (attention deficit hyperactivity disorder)*01/31/2014 IFG (impaired fasting glucose) [R73.01] 05/08/2014 10/03/2016 Pancreatic mass [K86.89] 09/19/2014 Hyperlipidemia [E78.5] (more content not included)... Normal [facility] Fabrice 07-13-2023 CNPN Telephone (PODIWS) THUY WHITE ([id number]) 1965 F Date Time Provider Department 07/13/23 ZULMA SOL During your visit today, we recorded the following information about you: Yahaira Tolliver 07/13/2023 12:51 PM Signed Patient is requesting 07/08/23 CMP lab results to be faxed to the office of Dr. Moses at [phone]. Layla Barrett RN 07/13/2023 3:05 PM Signed [...] toe [L03.039] 09/04/2010 01/31/2014 Nonunion of fracture [VYM6287] 12/10/2010 01/31/2014 Other complications due to other [...] apnea) [G (more content not included)... Normal [facility] Comprehensive metabolic 2000 panelon 07-09-2023 Albumin [Mass/Vol] 4.0 g/dL 3.9 - 4.9 g/dL [facility] ALP [Catalytic activity/Vol] 91 U/L 34 - 123 U/L [facility] ALT [Catalytic activity/Vol] 6 U/L Low 7 - 38 U/L [facility] Anion gap [Moles/Vol] 14 mmol/L 9 - 18 mmol/L [facility] AST [Catalytic activity/Vol] 14 U/L 13 - 35 U/L [facility] Bilirubin [Mass/Vol] 0.3 mg/dL 0.2 - 1 .3 mg/dL [facility] Calcium [Mass/Vol] 7.6 mg/dL Low 8.5 - 10. 2 mg/dL [facility] Chloride [Moles/Vol] 100 mmol/L 97 - 10 5 mmol/L [facility] CO2 [Moles/Vol] 26 mmol/L 22 - 30 mmol/L [facility] Creatinine [Mass/Vol] 1.57 mg/dL High 0.58 - 0.96 mg/dL [facility] GFR/1.73 sq M.predicted among non-blacks MDRD (S/P/Bld) [Vol rate/Area] 38 mL/min/{1.73_m2} Low - PINF [facility] Comment on above: Estimated Glomerular Filtration Rate [...] [Mass/Vol] 83 mg/dL 74 - 99 mg/dL [facility] Comment on above: The [place] Diab[employer] s Association (ADA) provides guidance for [...] Standards of Medical Care in Diabetes 2016, [place] [employer] Association. Diabetes Care. 2016.39(Suppl 1). Interpretation and review of laboratory results Abnormal [facility] Potassium [Moles/Vol] 3.5 mmol/L Low 3.7 - 5.1 mmol/L [facility] Protein [Mass/Vol] 6.9 g/dL 6.3 - 8.0 g/dL [facility] Sodium [Moles/Vol] 140 mmol/L 136 - 144 mmol/L [facility] Urea nitrogen [Mass/Vol] 23 mg/dL High 7 - 21 mg/dL [facility] CNOVon 07-08-2023 CNOV Office Visit (PODIWS ) THUY WHITE ([id number]) 1965 F Date Time Provider Department 07/08/23 [...] 05/16/2014 5.8 10/22/2007 5.2 TEST PERFORMED AT [facility] PCP: No primary care provider on file. 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 Chronic right SI joint pain 07/13/2018 Esophageal reflux 2006 Essential hypertension 11/26/2017 Fracture of right clavicle 11/15/2015 Generalized anxiety disorder 2004 with panic attacks Herpes genitalis Hypoparathyroidism ([facility]) parathyroid implant Left forearm Hypothyroidism 09/30/2018 IFG (impaired fasting glucose) 05/08/2014 Impaired fasting glucose Insomnia 03/16/2013 Iron deficiency anemia Irritable bowel syndrome 1997 diarrhea prone, dairy exacerbates MEN 1 (multiple endocrine neoplasia) ([facility]) Dr Solorzano, [facility] Morbid obesity ([facility]) 2006 s/p sleeve Dr Dale Obstructive sleep apnea fair complaince with CPAP Primary hyperparathyroidism ([facility]) 3 1/2 gland parathyroidectomy Renal [...] Upset Nausea (more content not included)... Normal [facility] Comprehensive metabolic 2000 panelon 07-08-2023 Albumin [Mass/Vol] 4.0 g/dL Normal 3.9-4.[address] [facility] Comment on above: Order Comment: Speci men Type: BLOOD SPECIMENOrdering Facility: [facility] Address: [address] [place] [address] Performed By: #### 2 4323-8 ####[facility] [id number] [place] [address] [place] ALP [Catalytic activity/Vol] 91 U/L Normal 34-123 [facility] Comment on above: Order Comment: Speci men Type: BLOOD SPECIMENOrdering Facility: [facility] Address: [address] [place] [address] Performed By: #### 2 4323-8 ####[facility] [id number] [place] [address] [place] ALT [Catalytic activity/Vol] 6 U/L Low 7-38 [facility] Comment on above: Order Comment: Speci men Type: BLOOD SPECIMENOrdering Facility: [facility] Address: [address] [place] [address] Performed By: #### 2 4323-8 ####[facility] [id number] [place] [address] [place] Anion gap [Moles/Vol] 14 mmol/L Normal 9-18 [facility] Comment on above: Order Comment: Speci men Type: BLOOD SPECIMENOrdering Facility: [facility] Address: [address] [place] [address] Performed By: #### 2 4323-8 ####[facility] [id number] [place] [address] [place] AST [Catalytic activity/Vol] 14 U/L Normal 13-35 [facility] Comment on above: Order Comment: Speci men Type: BLOOD SPECIMENOrdering Facility: [facility] Address: [address] [place] [address] Performed By: #### 2 4323-8 ####[facility] [id number] [place] [address] [place] Bilirubin [Mass/Vol] 0.3 mg/dL Normal 0.2-1.3 [facility] Comment on above: Order Comment: Speci men Type: BLOOD SPECIMENOrdering Facility: [facility] Address: [address] [place] [address] Performed By: #### 2 4323-8 ####[facility] [id number] [place] [id number] [place] Calcium [Mass/Vol] 7.6 mg/dL Low 8.5-10.[address] [facility] Comment on above: Order Comment: Speci men Type: BLOOD SPECIMENOrdering Facility: [facility] Address: [address] [place] [address] Performed By: #### 2 4323-8 ####[facility] [id number] [place] [address] [place] Chloride [Moles/Vol] 100 mmol/L Normal 97-105 [facility] Comment on above: Order Comment: Speci men Type: BLOOD SPECIMENOrdering Facility: [facility] Address: [address] [place] [address] Performed By: #### 2 4323-8 ####[facility] [id number] [place] [address] [place] CO2 [Moles/Vol] 26 mmol/L Normal 22-30 [facility] Comment on above: Order Comment: Speci men Type: BLOOD SPECIMENOrdering Facility: [facility] Address: [address] [place] [address] Performed By: #### 2 4323-8 ####[facility] [id number] [place] [address] [place] Creatinine [Mass/Vol] 1.57 mg/dL High 0.58-0.96 [facility] Comment on above: Order Comment: Speci men Type: BLOOD SPECIMENOrdering Facility: [facility] Address: [address] [place] [address] Performed By: #### 2 4323-8 ####[facility] [id number] [place] [address] [place] Creatinine and Glomerular filtration rate.predicted panel (S/P/Bld) 38 mL/min/1.73m??? Low >=60 [facility] Comment on above: Order Comment: Speci men Type: BLOOD SPECIMENOrdering Facility: [facility] Address: [address] [place] [address] Result Comment: Daisha mated Glomerular Filtration Rate [...] actual GFR. Performed By: #### 2 4323-8 ####[facility] [id number] [place] [address] [place] Glucose [Mass/Vol] 83 mg/dL Normal 74-[address] [facility] Comment on above: Order Comment: Phi spaulding Type: BLOOD SPECIMENOrdering Facility: [facility] Address: [address] [place] [address] Result Comment: The [place] Diabetes Association (ADA) provides guidance for cutoff [...] Standards of Medical Care in Diabetes 2016, [place] Diabetes Association. Diabetes Care. 2016.39(Suppl 1). Performed By: #### 2 4323-8 ####[facility]IA [id number] [place] [id number] [place] Potassium [Moles/Vol] 3.5 mmol/L Low 3.7-5.1 [facility] Comment on above: Order Comment: Phi spaulding Type: BLOOD SPECIMENOrdering Facility: [facility] Address: [address] [place] [address] Performed By: #### 2 4323-8 ####[facility]IA [id number] [place] [id number] [place] Protein [Mass/Vol] 6.9 g/dL Normal 6.3-8.[address] [facility] Comment on above: Order Comment: Speci men Type: BLOOD SPECIMENOrdering Facility: [facility] Address: [address] [place] [address] Performed By: #### 2 4323-8 ####[facility] [id number] [address] [place] Sodium [Moles/Vol] 140 mmol/L Normal 136-[address] [facility] Comment on above: Order Comment: Speci men Type: BLOOD SPECIMENOrdering Facility: [facility] Address: [address] [place] [address] Performed By: #### 2 4323-8 ####[facility] [id number] [address] [place] Urea nitrogen [Mass/Vol] 23 mg/dL High 7-21 [facility] Comment on above: Order Comment: Speci men Type: BLOOD SPECIMENOrdering Facility: [facility] Address: [address] [place] [address] Performed By: #### 2 4323-8 ####[facility] [id number] [address] [place] CNOVon 06-22-2023 CNOV Office Visit (UCWSTR ) THUY WHITE ([id number]) 1965 F Date Time Provider Department 06/22/23 7:45 AM PRISCA CROOKS WSTR During your visit today, we recorded the following information about you: Temperature Pulse Respiration Blood pressure 97.2 degrees 91/minute 18/minute 118/76 Weight 144.3 kg Prisca Crooks PA 06/22/2023 8:37 AM Signed This note was created using [employer]. Subjective Thuy White is a 58 year [...] dairy exacerbates MEN 1 (multiple endocrine neoplasia) [facility] ([facility] 2007 s/p sleeve Dr Dale Obstructive sleep apnea fair complaince with CPAP Primary hyperparathyroidism (HCC) 3 1/2 gland parathyroidectomy Renal insufficiency Sternoclavicular joint subluxation 07/16/2016 PAST SURGICAL HISTORY Procedure Laterality Date CHOLECYSTECTOMY Cholecystectomy DILATION AND CURETTAGE DXAND/THER NONOBSTETRIC 1991 For excessive menstruation ESOPHAGOGASTRODUODENOSCOPY TRANSORAL DIAGNOSTIC 2006 GASTRIC BYPASS HX 2007 gastric sleeve MENISCAL REPAIR SYS,[id number] Right MYRINGOTOMY ASPIRAND/EUSTACHIAN TUBE NFLTJ ANES Myringotomy/tubes [...] mg tablet (more content not included)... Normal [facility] XR FOOT 3V AP/LAT/OBL RTon 0 [...] region. Correlation with physical examination is requested. Vision Therapist: WENDY Transcribe Date/Time: Jun 22 2023 8:22A Dictated by : CHASE JOHNSTON MD This examination was interpreted and the report reviewed and electronically signed by: CHASE JOHNSTON MD on Jun 22 2023 8:26AM EST [id number] Normal [facility] XR Foot - right AP and Later al and obliqueon 06-22-2023 IMPRESSION: There is a stable vertical oblique lucency in the distal fifth metatarsal shaft dating back to 2020 favoring a nutrient channel in the absence of history of point tenderness in this region. Correlation with physical examination is requested. Vision Therapist: WENDY Transcribe Date/Time: Jun 22 2023 8:22A Dictated by : CHASE JOHNSTON MD This examination was interpreted and the report reviewed and electronically signed by: CHASE JOHNSTON MD on Jun 22 2023 8:26AM [facility] DIVISION OF RADIOLOGY * * *Final Report* [...] dorsal hypertrophic spurring. DIVISION [facility] RADIOLOGY [facility] * * *Final Report* * [...] region. Correlation with physical examination is requested. Vision Therapist: WENDY Transcribe Date/Time: Jun 22 2023 8:22A Dictated by : CHASE JOHNSTON MD This examination was interpreted and the report reviewed and electronically signed by: CHASE JOHNSTON MD on Jun 22 2023 8:26AM EST [facility] Radiology Study observation (narrative) [facility] XR Foot - right AP and Later al and obliqueOrdered By: Ccf Provider on 06-22-2023 [facility] CNCOon 05-31-2023 CNCO Letter Text Normal [facility] CT PANCREAS W IVCONon 2022 [facility] CNPNon 06-25-2020 CNPN Telephone (MEPRAD) LALITHUY ORDONEZ ([id number]) 1965 F Date Time Provider Department 06/25/20 GRAYSON SOLORZANO MEPMARTINEZ During your visit today, we recorded the following information about you: Grayson Solorzano MD, MD 06/25/2020 11:19 AM Signed Please tell her to Start potassium 20 mEq daily Increase levothyroxine to 0.1 mg daily Start atorvastatin 20 mg daily Repeat fasting labs again in 08/2020, orders in [facility]. The following approved medication requests have been [...] tabletRfl: 3 TSH BLD [SQTSH] Order #: [id number] FUTURE T4 FREE/FREE THYROX [SQFT4] Order #: [id number] FUTURE atorvastatin (LIPITOR) 20 mg tabletTake 1 tablet by mouth once daily.Disp: 90 tabletRfl: 3 LIPID PANEL BASIC [SQLIPB] Order #: [id number] FUTURE COMP METABOLIC PANEL [SQCMP] Order #: [id number] FUTURE Prescriptions as of 06/25/2020 Sig: POTASSIUM [...] toe [L03.039] 09/04/2010 01/31/2014 Nonunion of fracture [[id number]] 12/10/2010 01/31/2014 Other complications due to other internal ortho*01/21/2011 01/31/2014 Gastric bypass status for obesity [Z98.84] CKD (chronic kidney disease) stage 3, GFR 30-59*01/31/2014 ADHD (attention deficit hyperactivity disorder)*01/31/2014 IFG (impaired fasting glucose) [R73.01] 05/08/2014 10/03/2016 Pancreatic mass [K86.89] 09/19/2014 Hyperlipidemia [E78.5] 09/19/2014 Hypocalcemia [E83.51] 12/19/2014 10/01/2016 Hypokalemia [E87.6] 12/20/2014 Fracture of right clavicle [S42.001A] 11/14 (more content not included)... Normal [facility] No Panel InformationOrdered By: Ccf Provider on 06-21-2020 [facility] No Panel Informationon 06-21 Radiology Study observation (narrative) [facility] XR Ankle - right AP and Late [...] of the distal right fifth metatarsal shaft Vision Therapist: [employer] Transcribe Date/Time: Jun 21 2020 2:20P Dictated by : AMANDA MCKEON MD This examination was interpreted and the report reviewed and electronically signed by: AMANDA MCKEON MD on Jun 21 2020 2:22PM [facility] Provider, [facility] - 06/21/2020 * * *Final Report* [...] of the distal right fifth metatarsal shaft Vision Therapist: [employer] Transcribe Date/Time: Jun 21 2020 2:20P Dictated by : AMANDA MCKEON MD This examination was interpreted and the report reviewed and electronically signed by: AMANDA MCKEON MD on Jun 21 2020 2:22PM EST [facility] XR Foot - right AP and Later [...] of the distal right fifth metatarsal shaft Vision Therapist: [facility] Transcribe Date/Time: Jun 21 2020 2:20P Dictated by : AMANDA MCKEON MD This examination was interpreted and the report reviewed and electronically signed by: AMANDA MCKEON MD on Jun 21 2020 2:22PM [facility] Provider, [facility] * * *Final Report* * [...] of the distal right fifth metatarsal shaft Vision Therapist: [facility] Transcribe Date/Time: Jun 21 2020 2:20P Dictated by : AMANDA MCKEON MD This examination was interpreted and the report reviewed and electronically signed by: AMANDA MCKEON MD on Jun 21 2020 2:22PM EST [facility] MA MAMMOGRAM SCREENING BILAT ERAL W/TOMOon 07-27-2017 MA MAMMOGRAM SCREENING BILATERAL W/CELESTE ORIGINAL FROM: [address] [place], [place] [address] PROCEDURE FOR: THUY WHITE [address] [place] [address] Home: PID#: [id number] Exam#: [id number] : 1965 Age: 52 TO: GABRIELA MAY MD [address] [address] [place], [place] [address] #[id number] DIGITAL SCREENING MAMMOGRAM 3D/2D WITH CAD WITH MEDIOLATERAL OBLIQUE CRANIOCAUDAL: 07/27/2017 Comparison is made to exams dated: 09/26/2015 mammogram and 10/07/2011 mammogram - [facility]. There are scattered fibroglandular elements in both breasts. Current study was also evaluated with a Computer Aided Detection (CAD) system. No significant masses, calcifications, or other findings are seen in either breast. There has been no significant interval change. IMPRESSION: NEGATIVE There is no mammographic evidence of malignancy. A 1 year screening mammogram is recommended. LETTY RESENDEZ MD cm/penmartinez:07/30/2017 18:28:23 Quenching Car Operator: NUBIA BRYAN (Princess)(M), [facility] letter sent: Normal BI-RADS 1&2 Mammogram BI-RADS: 1 Negative Normal [facility] ([place] HPVon 07-21-2017 HPV Interp See Interp HPVN [facility] [place] Comment on above: Order Comment: Order placed by AP_HPV_ORDER rule from [id number] Result Comment: High Risk HPV Typing Positive: [...] HPOS Performed By: #### H PV #### [place] [address] HPV Source Cervix Normal [facility] ([place]) Comment on above: Order Comment: Order placed by AP_HPV_ORDER rule from [id number] Performed By: #### H PV #### [place] [address] [facility] Cytology Reporton 2017 [facility] Cytology Report . Pathology Reports Accession: Collected Date/Time: Received Date/Time: Pathologist: [id number] 07/14/2017 11:24 EDT 07/15/2017 18:00 EDT [facility] Cytology Report SPECIMEN: Specimen Description: Liquid Prep w/ HPV Specimen: Cervical/Endocervical Screening or Diagnostic: Screening RELEVANT HISTORY: LMP: Not Given [id number] SPECIMEN ADEQUACY: SATISFACTORY FOR EVALUATION ENDOCERVICAL/TRANSFORMATION AL ZONE COMPONENT PRESENT INTERPRETATION/RESULTS: NEGATIVE FOR INTRAEPITHELIAL LESION OR MALIGNANCY ADJUNCTIVE TESTING: HIGH RISK HPV DNA TESTING ORDERED, REPORT TO FOLLOW UNDER SEPARATE COVER Electronically Signed by Pathology report verified by [facility]. Screened by: LS Electronically signed by Helene HANSON (ASCP) Sign-Out Date: 07/20/2017 09:24 Performing Lab: [address] Disclaimer The Pap test is a screening test for cervical cancer. As evidenced by published data, it is subject to both inherent false negative and false positive results. Your patient's results should be interpreted in context with pertinent clinical history including gynecological examination. Normal [facility] ([place]) Comment on above: Performed By: #### G YCR #### [place] [address] Patient Summary Documentson 09-19-2016 Patient Summary Documents Normal [facility] XR FOOT MINIMUM 3 VIEWS VINOD Corral [...] AM Sign Date: 09/19/2016 9:32:53 AM Normal [facility] Vital Signs Date Time Vital Sign Value Performing Clinician Faci lity 01-24-2024 10:59-0500 Body mass index (BMI) [Ratio] 49.2 kg/m2 Peter Sigala MD Work Phone: [facility] 01-24-2024 10:59-0500 Body weight 142.5 kg Peter Sigala MD Work Phone: [facility] 01-24-2024 10:59-0500 Diastolic blood pressure 53 mm[Hg] Peter Sigala MD Work Phone: [facility] 01-24-2024 10:59-0500 Heart rate 106 /min Peter Sigala MD Work Phone: [facility] 01-24-2024 10:59-0500 Systolic blood pressure 123 mm[Hg] Peter Sigala MD Work Phone: [facility] 06-22-2023 07:43-0400 Body temperature 97.2 [degF] Prisca MARRERO Work Phone: [facility] 06-22-2023 07:43-0400 Body weight 144.3 kg Prisca MARRERO Work Phone: [facility] 06-22-2023 07:43-0400 Diastolic blood pressure 76 mm[Hg] Krislyn Aberegg PA Work Phone: [facility] 06-22-2023 07:43-0400 Heart rate 91 /min Krislyn Aberegg PA Work Phone: [facility] 06-22-2023 07:43-0400 Respiratory rate 18 /min Krislyn Aberegg PA Work Phone: [facility] 06-22-2023 07:43-0400 SaO2% (BldA) [Mass fraction] 96 % Krislyn Aberegg PA Work Phone: [facility] 06-22-2023 07:43-0400 Systolic blood pressure 118 mm[Hg] Krislyn Aberegg PA Work Phone: [facility] 10-09-2022 09:56-0400 Body temperature 98.2 [degF] Nallely Jose ROUGHER HELPER.POLICE COMMUNICATIONS OPERATOR Work Phone: [facility] 10-09-2022 09:56-0400 Body weight 134.26 kg Nallely Jose ROUGHER HELPER.POLICE COMMUNICATIONS OPERATOR Work Phone: [facility] 10-09-2022 09:56-0400 Diastolic blood pressure 64 mm[Hg] Nallely Jose ROUGHER HELPER.POLICE COMMUNICATIONS OPERATOR Work Phone: [facility] 10-09-2022 09:56-0400 Heart rate 99 /min Nallely Jose ROUGHER HELPER.POLICE COMMUNICATIONS OPERATOR Work Phone: [facility] 10-09-2022 09:56-0400 Respiratory rate 18 /min Nallely Jose ROUGHER HELPER.POLICE COMMUNICATIONS OPERATOR Work Phone: [facility] 10-09-2022 09:56-0400 SaO2% (BldA) [Mass fraction] 94 % Nallely Jose ROUGHER HELPER.POLICE COMMUNICATIONS OPERATOR Work Phone: [facility] 10-09-2022 09:56-0400 Systolic blood pressure 108 mm[Hg] Nallely Jose ROUGHER HELPER.POLICE COMMUNICATIONS OPERATOR Work Phone: [facility] Encounters Encounter Date Encounter Type Care Provider Facility Start: 09-04-2024 End: 09-04-2024 ambulatory Alondra Samson Facility:[facility] Start: 08-24-2024 End: 08-24-2024 ambulatory Alondra Samson Facility:[facility] Start: 08-16-2024 End: 08-16-2024 ambulatory Alondra Samson Facility:[facility] Start: 08-07-2024 End: 08-07-2024 ambulatory Alondra Cambridge Facility:[facility] Start: 08-01-2024 End: 08-01-2024 ambulatory Alondra Cambridge Facility:[facility] Start: 07-30-2024 End: 07-30-2024 Emergency department patient visit Alondra Samson Facility:[facility] Start: 07-28-2024 End: 07-28-2024 ambulatory Alondra Cambridge Facility:[facility] Start: 07-17-2024 End: 07-17-2024 ambulatory Alondra Cambridge Facility:[facility] Start: 06-05-2024 End: 06-05-2024 ambulatory Alondra Samson Facility:[facility] Start: 05-23-2024 End: 05-23-2024 ambulatory Alondra Samson Facility:[facility] Start: 05-23-2024 End: 05-23-2024 ambulatory Alondra Samson Facility:[facility] Start: 05-16-2024 ambulatory Filomena Lopez [facility] Start: 05-16-2024 End: 05-18-2024 Evaluation and management of inpatient Filomena Lopez Facility:[facility] Start: 05-11-2024 ambulatory Zulma MARRERO Facilit y:[facility] Start: 05-08-2024 End: 05-08-2024 ambulatory Kenn Terrell Facility:[facility] Start: 05-05-2024 End: 05-05-2024 ambulatory Zulma MARRERO Facility:[facility] Start: 04-13-2024 End: 04-13-2024 ambulatory Kenn Terrell Facility:[facility] Start: 04-07-2024 End: 04-07-2024 ambulatory Alondra Samson Facility:[facility] Start: 04-07-2024 End: 04-07-2024 ambulatory Alondra Davies Facility:[facility] Start: 04-02-2024 End: 04-02-2024 Emergency department patient visit Alondratian Davies Facility:[facility] Start: 03-30-2024 ambulatory Alondra Crawfordlay Facility :[facility] Start: 03-30-2024 End: 04-01-2024 Evaluation and management of inpatient Alondra Davies Facility:[facility] Start: 03-26-2024 End: 03-26-2024 Emergency department patient visit Alondra Davies Facility:[facility] Start: 03-24-2024 End: 03-24-2024 Subsequent hospital visit by physician [facility] Work Phone: Radiology Comment on above: Plantar fasciitis [M 72.2] Start: 03-24-2024 End: 03-24-2024 ambulatory ZULMA SOL Facility:[facility] Start: 03-24-2024 End: 03-24-2024 Patient encounter procedure Zulma Sol Work Phone: Podiatry Comment on above: Plantar fasciitis (P rimary Dx) Start: 02-22-2024 End: 02-22-2024 Emergency department patient visit Alondra Davies Facility:[facility] Start: 02-18-2024 End: 02-18-2024 Emergency department patient visit Alondra Davies Facility:[facility] Start: 01-31-2024 End: 01-31-2024 ambulatory Alondra Davies Facility:[facility] Start: 01-31-2024 End: 01-31-2024 ambulatory Alondra Davies Facility:[facility] Start: 01-24-2024 End: 01-24-2024 Orders Only Peter [...] 01-07-2024 Emergency department patient visit Alondra Samson Facility:[facility] Start: 01-03-2024 End: 01-03-2024 Emergency department patient visit Alondra Cambridge Facility:[facility] Start: 12-24-2023 End: 12-24-2023 ambulatory Alondra Cambridge Facility:[facility] Start: 12-24-2023 End: 12-24-2023 ambulatory Alondra Cambridge Facility:[facility] Start: 12-01-2023 End: 12-01-2023 ambulatory [facility] Facility:[facility] Start: 11-09-2023 End: 11-09-2023 ambulatory Alondra Cambridge Facility:[facility] Start: 11-02-2023 End: 11-02-2023 ambulatory Alondra Cambridge Facility:[facility] Start: 11-01-2023 End: 11-01-2023 Emergency department patient visit Alondra Cambridge Facility:[facility] Start: 10-15-2023 End: 10-15-2023 Emergency department patient visit Alondra Cambridge Facility:[facility] Start: 10-13-2023 End: 10-13-2023 ambulatory Alondra Cambridge Facility:[facility] Start: 10-12-2023 ambulatory Alondra Samson Facility :[facility] Start: 10-12-2023 End: 10-12-2023 ambulatory Alondra Cambridge Facility:[facility] Start: 09-14-2023 End: 09-15-2023 ambulatory Alondra Samson Facility:[facility] Start: 08-27-2023 End: 08-27-2023 Patient encounter procedure Syed Kruger APRN.CNP Work Phone: [facility] Comment on above: Procedure not jordin d out (Primary Dx) Start: 08-27-2023 End: 08-27-2023 ambulatory [facility] Facility:[facility] Start: 07-13-2023 Telephone encounter Zulma Giang Work Phone: Podiatry Comment on above: Results Start: 07-08-2023 End: 07-08-2023 ambulatory ZULMA SOL Facility:[facility] Start: 07-08-2023 End: 07-08-2023 Patient encounter procedure Zulma Sol Work Phone: Podiatry Comment on above: Arthritis of right m idfoot (Primary Dx); Foot pain, right; Right foot pain Start: 06-24-2023 Telephone encounter Ryan MARRERO Work Phone: [facility] Comment on above: Opened In Error Start: 06-22-2023 End: 06-22-2023 Subsequent hospital visit by physician Alannah [facility] [place] Work Phone: Radiology Comment on above: Foot pain, right [M7 9.671] Start: 06-22-2023 End: 06-22-2023 ambulatory ROSINA MUÑOZ Facility:[facility] Start: 06-22-2023 End: 06-22-2023 Patient encounter procedure [...] encounter procedure Nallely Garcia APRN.CNP Work Phone: [facility] Comment on above: URI with cough and c ongestion (Primary Dx); Acute conjunctivitis of left eye, unspecified acute conjunctivitis type Start: 08-26-2022 End: 08-26-2022 ambulatory Peter Sigala MD Work Phone: Endocrine Surgery Comment on above: MEN1 (multiple endoc rine neoplasia) (HCC); Obesity, Class III, BMI 40-49.9 (morbid obesity) (HCC) Start: 08-26-2022 End: 08-26-2022 Telemedicine consultation with patient Peter Sigala MD Work Phone: [facility] Start: 07-17-2022 End: 07-17-2022 Subsequent hospital visit by physician [facility] (I-Stat) Work Phone: Cat Scan Comment [...] Refill Bret luna MD Work Phone: Family [facility] Comment on above: Refill Request; Refi ll Request Start: 12-04-2021 Refill Grayson schrader MD Work Phone: Endocrinology Comment on above: Refill Request Start: 10-30-2021 Nurse Triage Bret luna MD Work Phone: Internal [facility] Comment on above: Refill Request Start: 10-07-2021 Refill Bret luna MD Work Phone: Internal [facility] Comment on above: Refill Request Start: 09-03-2021 ambulatory Bret luna MD Work Phone: Internal Medicine [facility] [place] Start: 08-31-2021 Refill Bret luna MD Work Phone: [facility] Comment on above: Refill Request Start: 08-04-2021 Refill Yaneth odonnell APRN.CNP Work Phone: Internal Medicine [place] Comment on above: Refill Request Start: 06-20-2021 Refill Bret luna MD Work Phone: Internal Medicine [place] Comment on above: Refill Request Start: 06-02-2021 Refill Bret luna MD Work Phone: Internal Medicine [place] Comment on above: Refill Request Start: 06-21-2020 End: 06-21-2020 Subsequent hospital visit by physician Alannah [facility] Alyssa Work Phone: Radiology Comment on above: Pain in joint involv ing right ankle and foot [M25.571] Start: 07-27-2017 End: 07-28-2017 Patient encounter procedure [facility] Facility:[facility] Start: 07-14-2017 End: 07-19-2017 Patient encounter procedure [facility] Facility:[facility] Procedures Date Procedure Procedure Detail Performing Clinician Start: 06-22-2023 Radex foot complete minimum 3 views Prisca MARRERO Work Phone: Start: 07-17-2022 Ct abdomen w/contras t material Peter Sigala MD Work Phone: Start: 07-12-2020 Lipid 1996 panel - S shira or Plasma Ct (I-Stat) Work Phone: Start: 06-21-2020 Radex ankle complete minimum 3 views Lucille Rogers APRN.POLICE COMMUNICATIONS OPERATOR Work Phone: Start: 10-24-2018 Colonoscopy Bret Salomon MD Work Phone: Start: 07-27-2017 Mammography Bret Salomon MD Work Phone: Plan of Treatment Date Care Activity Detail Author Start: 06-30-2028 Urine microalbumin profile [facility] Start: 01-23-2027 Diabetes Screening Diabetes Screenin [facility] Start: 07-07-2026 Diabetes Screening Diabetes Screenin [facility] Start: 10-06-2025 DIABETES SCREEN DIABETES SCREEN [facility] Start: 10-06-2025 Diabetes Screening Diabetes Screenin g [facility] Start: 07-12-2025 Lipid 1996 panel - S shira or Plasma Lipid Screening [facility] Start: 07-12-2025 Lipid panel Lipid Screening [facility] Start: 07-12-2025 LIPID SCREEN LIPID SCREEN [facility] Start: 06-12-2025 DIABETES SCREEN DIABETES SCREEN [facility] Start: 01-23-2025 BP Controlled (<130/80) BP Controlle d (<130/80) [facility] Start: 11-30-2024 Complete blood count Hemoglobin/Tavon tocrit [facility] Start: 11-30-2024 Creatinine measurement Serum Creatin ine [facility] Start: 07-07-2024 Creatinine measurement Serum Creatin ine [facility] Start: 06-21-2024 BP Controlled (<130/80) BP Controlle d (<130/80) [facility] Start: 02-28-2024 DIABETES SCREEN DIABETES SCREEN [facility] Start: 01-24-2024 End: 04-24-2024 Calcium [Mass/volume] in Serum or Plasma [facility] Work Phone: Comment on above: Expected: 01/24/2024 , Expires: 04/24/2024 Start: 01-24-2024 End: 04-24-2024 Chromogranin A [Mass/volume] in Serum or Plasma [facility] Comment on above: Expected: 01/24/2024 , Expires: 04/24/2024 Start: 01-24-2024 End: 04-24-2024 Gastrin [Mass/volume] in Serum or Plasma [facility] Comment on above: Expected: 01/24/2024 , Expires: 04/24/2024 Start: 01-24-2024 End: 04-24-2024 INSULIN LIK GR FAC I [facility] Comment on above: Expected: 01/24/2024 , Expires: 04/24/2024 Start: 01-24-2024 End: 04-24-2024 Magnesium [Mass/volume] in Serum or Plasma [facility] Comment on above: Expected: 01/24/2024 , Expires: 04/24/2024 Start: 01-24-2024 End: 04-24-2024 PANCREATIC POLYPEPTIDE [facility] Comment on above: Expected: 01/24/2024 , Expires: 04/24/2024 Start: 01-24-2024 End: 04-24-2024 Parathyrin.intact [Mass/volume] in Serum or Plasma [facility] Comment on above: Expected: 01/24/2024 , Expires: 04/24/2024 Start: 01-24-2024 End: 04-24-2024 Phosphate [Mass/volume] in Serum or Plasma [facility] Comment on above: Expected: 01/24/2024 , Expires: 04/24/2024 Start: 01-24-2024 End: 04-24-2024 PROINSULIN INTACT BLOOD [facility] Comment on above: Expected: 01/24/2024 , Expires: 04/24/2024 Start: 01-24-2024 End: 04-24-2024 Prolactin [Mass/volume] in Serum or Plasma [facility] Comment on above: Expected: 01/24/2024 , Expires: 04/24/2024 Start: 01-24-2024 End: 04-24-2024 SOMATOSTATIN BLD [facility] Comment on above: Expected: 01/24/2024 , Expires: 04/24/2024 Start: 01-24-2024 End: 04-24-2024 VASOACTIVE INTESTINAL POLYPEPTIDE (VIP), PLASMA [facility] Comment on above: Expected: 01/24/2024 , Expires: 04/24/2024 Start: 11-07-2023 Covid-19 Vaccine ( season) Covid-19 Vaccine () [facility] Start: 11-07-2023 Covid-19 Vaccine ( season) Covid-19 Vaccine () [facility] Start: 11-07-2023 [facility] Start: 10-10-2023 BP CONTROLLED (<130/80) BP CONTROLLE D (<130/80) [facility] Start: 10-07-2023 Creatinine measurement Serum Creatin ine [facility] Start: 10-07-2023 SERUM CREATININE SERUM CREATININE Cl [facility] Start: 08-09-2023 End: 10-09-2023 C peptide [Mass/volume] in Serum or Plasma C-PEPTIDE BLD Lab Routine MEN1 (multiple endocrine neoplasia) (HCC) Expected: 08/09/2023 (Approximate), Expires: 10/09/2023 [facility] Work Phone: Comment on above: Expected: 08/09/2023 (Approximate), Expires: 10/09/2023 Start: 08-09-2023 End: 10-09-2023 Calcium [Mass/volume] in Serum or Plasma CALCIUM TOTAL BLD Lab Routine MEN1 (multiple endocrine neoplasia) (HCC) Expected: 08/09/2023 (Approximate), Expires: 10/09/2023 [facility] Work Phone: Comment on above: Expected: 08/09/2023 (Approximate), Expires: 10/09/2023 Start: 08-09-2023 End: 10-09-2023 Chromogranin A [Mass/volume] in Serum or Plasma CHROMOGRANIN A Lab Routine MEN1 (multiple endocrine neoplasia) (HCC) Expected: 08/09/2023 (Approximate), Expires: 10/09/2023 [facility] Work Phone: Comment on above: Expected: 08/09/2023 (Approximate), Expires: 10/09/2023 Start: 08-09-2023 End: 10-09-2023 Fasting glucose [Mass/volume] in Serum or Plasma GLUCOSE FASTING BLD Lab Routine MEN1 (multiple endocrine neoplasia) (HCC) Expected: 08/09/2023 (Approximate), Expires: 10/09/2023 [facility] Work Phone: Comment on above: Expected: 08/09/2023 (Approximate), Expires: 10/09/2023 Start: 08-09-2023 End: 10-09-2023 Gastrin [Mass/volume] in Serum or Plasma GASTRIN BLD Lab Routine MEN1 (multiple endocrine neoplasia) (HCC) Expected: 08/09/2023 (Approximate), Expires: 10/09/2023 [facility] Work Phone: Comment on above: Expected: 08/09/2023 (Approximate), Expires: 10/09/2023 Start: 08-09-2023 End: 10-09-2023 Glucagon [Mass/volume] in Serum or Plasma GLUCAGON BLD Lab Routine MEN1 (multiple endocrine neoplasia) ([facility]) Expected: 08/09/2023 (Approximate), Expires: 10/09/2023 [facility] Work Phone: Comment on above: Expected: 08/09/2023 (Approximate), Expires: 10/09/2023 Start: 08-09-2023 End: 10-09-2023 Insulin [Units/volume] in Serum or Plasma INSULIN ASSAY BLOOD Lab Routine MEN1 (multiple endocrine neoplasia) ([facility]) Expected: 08/09/2023 (Approximate), Expires: 10/09/2023 [facility] Work Phone: Comment on above: Expected: 08/09/2023 (Approximate), Expires: 10/09/2023 Start: 08-09-2023 End: 10-09-2023 Magnesium [Mass/volume] in Serum or Plasma MAGNESIUM BLD Lab Routine MEN1 (multiple endocrine neoplasia) ([facility]) Expected: 08/09/2023 (Approximate), Expires: 10/09/2023 [facility] Work Phone: Comment on above: Expected: 08/09/2023 (Approximate), Expires: 10/09/2023 Start: 08-09-2023 End: 10-09-2023 PANCREATIC POLYPEPTIDE PANCREATIC POLYPEPTIDE Lab Routine MEN1 (multiple endocrine neoplasia) ([facility]) Expected: 08/09/2023 (Approximate), Expires: 10/09/2023 [facility] Work Phone: Comment on above: Expected: 08/09/2023 (Approximate), Expires: 10/09/2023 Start: 08-09-2023 End: 10-09-2023 Parathyrin.intact [Mass/volume] in Serum or Plasma PTH INTACT BLD Lab Routine MEN1 (multiple endocrine neoplasia) ([facility]) Expected: 08/09/2023 (Approximate), Expires: 10/09/2023 [facility] Work Phone: Comment on above: Expected: 08/09/2023 (Approximate), Expires: 10/09/2023 Start: 08-09-2023 End: 10-09-2023 PROINSULIN INTACT BLOOD PROINSULIN INTACT BLOOD Lab Routine MEN1 (multiple endocrine neoplasia) ([facility]) Expected: 08/09/2023 (Approximate), Expires: 10/09/2023 [facility] Work Phone: Comment on above: Expected: 08/09/2023 (Approximate), Expires: 10/09/2023 Start: 08-09-2023 End: 10-09-2023 Prolactin [Mass/volume] in Serum or Plasma PROLACTIN BLD Lab Routine MEN1 (multiple endocrine neoplasia) ([facility]) Expected: 08/09/2023 (Approximate), Expires: 10/09/2023 [facility] Work Phone: Comment on above: Expected: 08/09/2023 (Approximate), Expires: 10/09/2023 Start: 08-09-2023 End: 10-09-2023 SOMATOSTATIN BLD SOMATOSTATIN BLD Lab Routine MEN1 (multiple endocrine neoplasia) ([facility]) Expected: 08/09/2023 (Approximate), Expires: 10/09/2023 [facility] Work Phone: Comment on above: Expected: 08/09/2023 (Approximate), Expires: 10/09/2023 Start: 08-09-2023 End: 10-09-2023 Vasoactive intestinal peptide [Mass/volume] in Serum or Plasma VIP Lab Routine MEN1 (multiple endocrine neoplasia) ([facility]) Expected: 08/09/2023 (Approximate), Expires: 10/09/2023 [facility] Work Phone: Comment on above: Expected: 08/09/2023 (Approximate), Expires: 10/09/2023 Start: 08-09-2023 End: 08-09-2023 ambulatory 08/09/2023 11:00 AM EDT Results Only Alyssa Otis [facility] [address] [place] [address] [facility] Start: 07-15-2023 SERUM CREATININE SERUM CREATININE [facility] Start: 11-06-2022 Covid-19 Vaccine () Covid-19 Vaccine () [facility] Start: 11-06-2022 [facility]: 06-11-2022 End: 08-11-2022 C peptide [Mass/volume] in Serum or Plasma C-PEPTIDE BLD Lab Routine MEN1 (multiple endocrine neoplasia) (HCC) Expected: 06/11/2022, Expires: 08/11/2022 [facility] Work Phone: Comment on above: Expected: 06/11/2022 , Expires: 08/11/2022 Start: 06-11-2022 End: 08-11-2022 Calcium [Mass/volume] in Serum or Plasma CALCIUM TOTAL BLD Lab Routine MEN1 (multiple endocrine neoplasia) (HCC) Expected: 06/11/2022, Expires: 08/11/2022 [facility] Work Phone: Comment on above: Expected: 06/11/2022 , Expires: 08/11/2022 Start: 06-11-2022 End: 08-11-2022 Chromogranin A [Mass/volume] in Serum or Plasma CHROMOGRANIN A Lab Routine MEN1 (multiple endocrine neoplasia) (HCC) Expected: 06/11/2022, Expires: 08/11/2022 [facility] Work Phone: Comment on above: Expected: 06/11/2022 , Expires: 08/11/2022 Start: 06-11-2022 End: 08-11-2022 Fasting glucose [Mass/volume] in Serum or Plasma GLUCOSE FASTING BLD Lab Routine MEN1 (multiple endocrine neoplasia) (HCC) Expected: 06/11/2022, Expires: 08/11/2022 [facility] Work Phone: Comment on above: Expected: 06/11/2022 , Expires: 08/11/2022 Start: 06-11-2022 End: 08-11-2022 Gastrin [Mass/volume] in Serum or Plasma GASTRIN BLD Lab Routine MEN1 (multiple endocrine neoplasia) (HCC) Expected: 06/11/2022, Expires: 08/11/2022 [facility] Work Phone: Comment on above: Expected: 06/11/2022 , Expires: 08/11/2022 Start: 06-11-2022 End: 08-11-2022 Insulin [Units/volume] in Serum or Plasma INSULIN ASSAY BLOOD Lab Routine MEN1 (multiple endocrine neoplasia) ([facility]) Expected: 06/11/2022, Expires: 08/11/2022 [facility] Work Phone: Comment on above: Expected: 06/11/2022 , Expires: 08/11/2022 Start: 06-11-2022 End: 08-11-2022 PANCREATIC POLYPEPTIDE PANCREATIC POLYPEPTIDE Lab Routine MEN1 (multiple endocrine neoplasia) ([facility]) Expected: 06/11/2022, Expires: 08/11/2022 [facility] Work Phone: Comment on above: Expected: 06/11/2022 , Expires: 08/11/2022 Start: 06-11-2022 End: 08-11-2022 Parathyrin.intact [Mass/volume] in Serum or Plasma PTH INTACT BLD Lab Routine MEN1 (multiple endocrine neoplasia) ([facility]) Expected: 06/11/2022, Expires: 08/11/2022 [facility] Work Phone: Comment on above: Expected: 06/11/2022 , Expires: 08/11/2022 Start: 06-11-2022 End: 08-11-2022 Phosphate [Mass/volume] in Serum or Plasma PHOSPHORUS INORGANIC Lab Routine MEN1 (multiple endocrine neoplasia) ([facility]) Expected: 06/11/2022, Expires: 08/11/2022 [facility] Work Phone: Comment on above: Expected: 06/11/2022 , Expires: 08/11/2022 Start: 06-11-2022 End: 08-11-2022 PROINSULIN INTACT BLOOD PROINSULIN INTACT BLOOD Lab Routine MEN1 (multiple endocrine neoplasia) ([facility]) Expected: 06/11/2022, Expires: 08/11/2022 [facility] Work Phone: Comment on above: Expected: 06/11/2022 , Expires: 08/11/2022 Start: 06-11-2022 End: 08-11-2022 Prolactin [Mass/volume] in Serum or Plasma PROLACTIN BLD Lab Routine MEN1 (multiple endocrine neoplasia) (HCC) Expected: 06/11/2022, Expires: 08/11/2022 [facility] Work Phone: Comment on above: Expected: 06/11/2022 , Expires: 08/11/2022 Start: 06-11-2022 End: 08-11-2022 SOMATOSTATIN BLD SOMATOSTATIN BLD Lab Routine MEN1 (multiple endocrine neoplasia) (HCC) Expected: 06/11/2022, Expires: 08/11/2022 [facility] Work Phone: Comment on above: Expected: 06/11/2022 , Expires: 08/11/2022 Start: 06-11-2022 End: 08-11-2022 SULFONYLUREA HYPO UR SULFONYLUREA HYPO UR Lab Routine MEN1 (multiple endocrine neoplasia) (HCC) Expected: 06/11/2022, Expires: 08/11/2022 [facility] Work Phone: Comment on above: Expected: 06/11/2022 , Expires: 08/11/2022 Start: 06-11-2022 End: 08-11-2022 Vasoactive intestinal peptide [Mass/volume] in Serum or Plasma VIP Lab Routine MEN1 (multiple endocrine neoplasia) (HCC) Expected: 06/11/2022, Expires: 08/11/2022 [facility] Work Phone: Comment on above: Expected: 06/11/2022 , Expires: 08/11/2022 Start: 05-12-2022 Pneumococcal Vaccine : 50+ (3 of 3 - PCV20 or PCV21) Pneumococcal Vaccine: 50+ (3 of 3 - PCV20 or PCV21) [facility] Start: 04-04-2022 SERUM CREATININE SERUM CREATININE [facility] Start: 02-25-2022 Complete blood count Hemoglobin/Tavon tocrit [facility] Start: 02-25-2022 HEMOGLOBIN/HEMATOCRIT HEMOGLOBIN/HEM ATOCRIT [facility] Start: 12-26-2021 COLORECTAL CANCER SCREENING COLORECTAL CANCER SCREENING [facility] Start: 12-26-2021 FECAL OCCULT BLOOD FECAL OCCULT BLOO D [facility] Start: 12-26-2021 Screening for malign ant neoplasm of colon [facility] Start: 12-18-2021 ANNUAL PCP TEAM MILL ROLL REWINDER WEN DISEASE VISIT ANNUAL PCP TEAM CHRONIC DISEASE VISIT [facility] Start: 12-18-2021 BP CONTROLLED (<130/80) BP CONTROLLE D (<130/80) [facility] Start: 11-06-2021 Influenza vaccination INFLUENZA (#1) [facility] Start: 12-30-2020 COVID-19 VACCINE (3 - Booster for Moderna series) COVID-19 VACCINE (3 - Booster for Moderna series) [facility] Start: 09-24-2020 COVID-19 VACCINE (3 - Booster for Moderna series) COVID-19 VACCINE (3 - Booster for Moderna series) [facility] Start: 09-24-2020 COVID-19 VACCINE (3 - Moderna series) COVID-19 VACCINE (3 - Moderna series) [facility] Start: 10-25-2019 Colonoscopy COLONOSCOPY [facility] Start: 10-25-2019 Screening for malign ant neoplasm of colon Colonoscopy [facility] Start: 07-27-2018 Mammography [facility] Start: 07-27-2018 Screening for malign ant neoplasm of breast Mammogram Screening [facility] Start: 2016 SHINGRIX VACCINE (1 of 2) SHINGRIX VACCINE (1 of 2) [facility] Start: 2011 COLOGUARD (FIT-DNA) COLOGUARD (FIT-D NA) [facility] Start: [address] [facility] Start: 2011 Screening for malign ant neoplasm of colon [facility] Start: 2011 SIGMOIDOSCOPY SIGMOIDOSCOPY [facility] Start: 1985 Hepatitis B Vaccine (1 of 3 - 19+ 3-dose series) Hepatitis B Vaccine (1 of 3 - 19+ 3-dose series) [facility] Start: 1984 BP CONTROLLED (<130/80) BP CONTROLLE D (<130/80) [facility] Start: 1966 HEPATITIS B (1 of 3 - 3-dose series) HEPATITIS B (1 of 3 - 3-dose series) [facility] Start: 1966 Hepatitis B Vaccine (1 of 3 - 3-dose series) Hepatitis B Vaccine (1 of 3 - 3-dose series) [facility] End: 10-03-2022 Screening mammography bi 2-view breast inc cad LEXI SCREENING Radiology Routine Encounter for screening mammogram for breast cancer 1 Occurrences starting 09/03/2021 until 10/03/2022 [facility] Work Phone: Comment on above: 1 Occurrences starti ng 09/03/2021 until 10/03/2022 US Thyroid gland US THYROID/PARA THYROID (POC) ENDO USE ONLY Imaging Diagnostic Routine MEN1 (multiple endocrine neoplasia) (HCC) Ordered: 01/24/2024 [facility] Work Phone: Comment on above: Ordered: 01/24/2024 XR Foot - left AP an d Lateral and oblique XR FOOT GENERAL 3V AP/LAT/OBL LEFT Radiology Routine Plantar fasciitis 03/24/2024 12:03 PM EST [facility] Work Phone: [facility] Immunizations Immunization Date Immunization Notes Care Provider Fa [facility] 12-18-2020 influenza, injectabl e, quadrivalent, contains preservative Bret Salomon MD Work Phone: [facility] 12-18-2020 influenza virus vacc ine, unspecified formulation Ct (I-Stat) Work Phone: [facility] 11-22-2018 influenza, injectabl e, quadrivalent, contains preservative Bret Salomon MD Work Phone: [facility] 06-30-2018 tetanus toxoid, redu marciano diphtheria toxoid, and acellular pertussis vaccine, adsorbed Bret Salomon MD Work Phone: [facility] 11-26-2017 influenza, injectabl e, quadrivalent, contains preservative Bret Salomon MD Work Phone: [facility] 05-12-2017 pneumococcal conjuga te vaccine, 13 valent Bret Salomon MD Work Phone: [facility] 01-13-2017 influenza, injectabl e, quadrivalent, contains preservative Bret Salomon MD Work Phone: [facility] 11-15-2015 influenza, injectabl e, quadrivalent, contains preservative Bret Salomon MD Work Phone: [facility] 11-15-2015 pneumococcal polysaccharide vaccine, 23 valent Bret Salomon MD Work Phone: [facility] 12-18-2014 influenza, seasonal, injectable Bret Salomon MD Work Phone: [facility] 01-12-2013 influenza virus vacc ine, unspecified formulation Bret Salomon MD Work Phone: [facility] 12-15-2011 influenza virus vacc ine, unspecified formulation Bret Salomon MD Work Phone: [facility] 12-15-2011 tetanus toxoid, redu marciano diphtheria toxoid, and acellular pertussis vaccine, adsorbed Bret Salomon MD Work Phone: [facility] 12-06-2008 pneumococcal polysaccharide vaccine, 23 valent Bret Salomon MD Work Phone: [facility] Work Phone: 01-07-2007 influenza virus vacc ine, unspecified formulation Bret Salomon MD Work Phone: [facility] 01-27-2006 influenza virus vacc ine, unspecified formulation Bret Salomon MD Work Phone: [facility] Payers Date Payer Category Payer Unknown [id number] 2023 Self-pay 2022 Medicare [id number] 2019 [place] [id number] 2019-Present [phone] [address] [place] [address] Medicaid [id number] 2019 [place] [id number] 2019-Present [phone] [address] [place] [address] Medicaid [id number] 2018 Medicare [place] [id number] 2018-Present [phone] [address] [place] [address] O [id number] [id number] 2018 Medicare [id number] [id number] [id number] 2017 Medicaid [id number] 2017 Medicare [id number] 1965 Unknown [id number] 2.16.840.1.367026.3.579.2.627 1966 Unknown [id number] 2.16840.1.002551.3.579.2.627 Unknown [id number] 2.16840.1.192237.3.579.2.462 Unknown [id number] 2.16840.1.965332.3.579.2.462 Unknown [id number] .16.840.1.645299.3.579.2.462 Unknown [id number] 2.16.840.1.335504.3.579.2.462 Unknown [id number] 2.16.840.1.998544.3.579.2.462 Unknown [id number] 2.16.840.1.436438.3.579.2.462 Unknown [id number] 2.16.840.1.460723.3.579.2.462 Unknown [id number] 2.16.840.1.687418.3.579.2.462 Unknown [id number] 2.16.840.1.823484.3.579.2.462 Unknown [id number] 2.16.840.1.854003.3.579.2.462 Unknown [id number] 2.16.840.1.248881.3.579.2.462 Unknown [id number] 2.16.840.1.563092.3.579.2.462 Unknown [id number] 2.16.840.1.438942.3.579.2.462 Unknown [id number] 2.16.840.1.849996.3.579.2.462 Unknown [id number] 2.16.840.1.245752.3.579.2.462 Unknown [id number] 2.16.840.1.569715.3.579.2.462 Unknown [id number] 2.16.840.1.776798.3.579.2.462 Unknown [id number] 2.16.840.1.301528.3.579.2.462 Unknown [id number] 2.16.840.1.531289.3.579.2.462 Unknown [id number] 2.16.840.1.681871.3.579.2.462 Unknown [id number] 2.16.840.1.478601.3.579.2.462 Unknown [id number] 2.16.840.1.285456.3.579.2.462 Unknown [id number] 2.16.840.1.448109.3.579.2.462 Unknown [id number] 2.16.840.1.682484.3.579.2.462 Unknown [id number] 2.16.840.1.620280.3.579.2.462 Unknown [id number] 2.16.840.1.850262.3.579.2.462 Unknown [id number] 2.16.840.1.670447.3.579.2.462 Unknown [id number] 2.16.840.1.156279.3.579.2.462 Unknown [id number] 2.16.840.1.448654.3.579.2.462 Unknown [id number] 2.16.840.1.913712.3.579.2.462 Unknown [id number] 2.16.840.1.866378.3.579.2.462 Unknown [id number] 2.16.840.1.755230.3.579.2.462 Unknown [id number] 2.16840.1.745824.3.579.2.462 Unknown [id number] 2.16840.1.131767.3.579.2.462 Unknown [id number] 2.840.1.174275.3.579.2.462 Unknown [id number] 2.16840.1.353804.3.579.2.462 Unknown [id number] 2.840.1.995664.3.579.2.462 Unknown [id number] 2.840.1.650400.3.579.2.462 Unknown [id number] 2.840.1.891024.3.579.2.462 Unknown [id number] 2.16840.1.753288.3.579.2.462 Unknown [id number] 2.16840.1.643015.3.579.2.462 Unknown [id number] 2.840.1.144247.3.579.2.462 Unknown [id number] 2.840.1.768201.3.579.2.462 Unknown [id number] 2.840.1.093576.3.579.2.462 Unknown [id number] 2.840.1.101741.3.579.2.462 Unknown [id number] 2.840.1.891378.3.579.2.462 Social History Date Type Detail Facility Start: 11-24-2010 End: 10-09-2022 Tobacco smoking status NHIS Never smoked tobacco [facility] Start: 12-18-2020 End: 03-24-2024 Alcohol intake Current drinker of alcohol (finding) [facility] Start: 08-17-2019 End: 03-06-2020 History SDOH Alcohol Frequency 1 [facility] Start: 05-02-2019 History SDOH Alcohol Std Drinks 98 [facility] Start: 01-29-2016 History SDOH Alcohol Comment occasionally - social [facility] Start: 03-20-2019 End: 08-17-2019 History SDOH Social Connections Phone 5 [facility] Start: 08-17-2019 End: 03-06-2020 History SDOH Social Connections Muslim 2 [facility] Start: 03-20-2019 End: 08-17-2019 History SDOH Physical Activity DPW 0 [facility] Start: 03-19-2019 Education 21 [facility] Start: 1965 Sex Assigned At Female [facility] Start: 11-24-2010 End: 10-09-2022 Tobacco use and exposure Smokeless tobacco non-user [facility] Work Phone: Start: 08-17-2019 End: 08-26-2022 History of Social function [facility] Start: 08-17-2019 End: 08-26-2022 Social connection and isolation panel [facility] Frequency of Communication with Friends and Family Not on file [facility] How often to you hav e a drink containing alcohol? Never [facility] Do you feel stress - tense, restless, nervous, or anxious, or unable to sleep at night because your mind is troubled all the time - these days [OSQ] Only a little [facility] (I/We) worried ruben er (my/our) food would run out before (I/we) got money to buy more. Never true [facility] In the past 12 month s, was there a time when you were not able to pay the mortgage or rent on time? No [facility] Start: 04-05-2020 Gender identity Identifies as female gender (finding) [facility] Start: 05-22-2020 End: 06-21-2020 Exposure to SARS-CoV-2 (event) Not sure [facility] Medical Equipment Procedure Code Equipment Code Equipment Origin al Text Equipment Identifier Dates Tya-Vd-M-Kind plant - [id number] 283381_[facility] Start: 11-26-2010 Comment on above: Description: infuse bone graft rhbmp-2 acs 0.7cc absorable collagen sponge Mqk-Rl-A-Kind plant - [id number] 283386_[facility] Start: 11-26-2010 Comment on above: Description: mini ra il Xuo-Wq-P-Kind plant - [id number] 283389_[facility] Start: 11-26-2010 Comment on above: Description: 70mm th readed wire Gnw-Mw-K-Kind plant - [id number] 283390_[facility] Start: 11-26-2010 Comment on above: Description: clamp c over Ksa-Cz-S-Kind plant - [id number] 310777_[facility] Start: 02-04-2011 Comment on above: Description: FLAT 4 HOLE PLATE Ivv-Qd-J-Kind plant - [id number] 310784_[facility] Start: 02-04-2011 Comment on above: Description: 2.4MM X 8MM LOCKING SCREW Dvj-Mx-O-Kind plant - [id number] 310785_[facility] Start: 02-04-2011 Comment on above: Description: 2.4MM X 12MM LOCKING SCREW Sie-Ca-C-Kind plant - [id number] 310794_[facility] Start: 02-04-2011 Comment on above: Description: NON LOC GRUPO SCREW 2.4MM X 12MM Graft Semitendin osus Tendon 20-25.5mcu5-09ux Soft Tissue Allograft [facility] - [id number] 1330060_[facility] Start: 10-30-2016 Clinical Notes 07-13-2018 to 05-18-2024 Katya Rivera RT(Princess) - 03/24/2024 11:50 AM ESTPatient InstructionsTestZulma osorio - 03/24/2024 11:37 AM Peter Atkinson MD - 01/24/2024 12:48 PM ESTPatient InstructionsPatient Instructions Note Date & Type Note Facility 05-18-[address] [facility] 04-01-[address] [facility] 03-24-2024 History of Present illness Narrative Radiology [...] PATIENT PRESENTS WITH AN IMPLANTABLE OR ATTACHED PICCOLO MECHANIC: No RADIOLOGY DEPARTMENT: General X-ray: Exam(s) Completed: Lower Extremity X-Ray(s): Foot, Left and Wt. Bearing PERIPHERAL IV DATA: Not applicable SIGNED BY: RT Julian(Prinecss) March 24, 2024 1:41 PM documented in this encounter [facility] 03-24-2024 Note HNO ID: [id number] Author: KATYA RIVERA RT(R) Service: ? Author [...] PATIENT PRESENTS WITH AN IMPLANTABLE OR ATTACHED PICCOLO MECHANIC: No RADIOLOGY DEPARTMENT: General X-ray: Exam(s) Completed: Lower Extremity X-Ray(s): Foot, Left and Wt. Bearing PERIPHERAL IV DATA: Not applicable SIGNED BY: RT Julian(R) March 24, 2024 1:41 PM [facility] 03-24-2024 Zulma Wilson 03/24/2024 11:41 AM [...] time on their feet, such as nurses, head waiter/waitress/waiters, and mail carriers, often experience plantar fasciitis. [...] choose the one that fits the best. [place] with your athletic shoes to find a [...] repeat the exercise. documented in this encounter [facility] 03-24-2024 Note HNO ID: [id number] Author: ZULMA SOL, ? Service: ? Author [...] dairy exacerbates MEN 1 (multiple endocrine neoplasia) [facility] ([facility]) 2006 s/p sleeve Dr Dale Obstructive sleep apnea fair complaince with CPAP Primary hyperparathyroidism ([facility]) 3 1/2 gland parathyroidectomy Renal [...] CURETTAGE DXAND/THER NON (more content not included)... [facility] 03-24-2024 History of Present illness Narrative [...] 2004 with panic attacks Herpes genitalis Hypoparathyroidism ([facility]) parathyroid implant Left forearm Hypothyroidism 09/30/2018 IFG (impaired fasting glucose) 05/08/2014 Impaired fasting glucose Insomnia 03/16/2013 Iron deficiency anemia Irritable bowel syndrome 1997 diarrhea prone, dairy exacerbates MEN 1 (multiple endocrine neoplasia) ([facility]) Dr Solorzano, [facility] Morbid obesity ([facility]) 2006 s/p sleeve Dr Dale Obstructive sleep apnea fair complaince with CPAP Primary hyperparathyroidism ([facility]) 3 03/09 gland parathyroidectomy Renal insufficiency Sternoclavicular [...] BYPASS HX 2007 gastric sleeve MENISCAL REPAIR SYS,[id number] Right MYRINGOTOMY ASPIR&/EUSTACHIAN TUBE NFLTJ ANES Myringotomy/tubes PARATHYROID AUTOTRANSPLANTATION ADD-ON 07/27/06 left forearm PARATHYROIDECTOMY/EXPLORATION PARATHYROIDS 12/08/2005 3 3/4 parathyroid glans removed PAST SURGICAL HISTORY OF Left foot fracture repair SEPTOPLASTY/SUBMUCOUS RESECJ W/WO CARTILAGE GRF Septoplasty SURGERY 1 HO 10/2016 clavicle surgery TOTAL ABDOMINAL HYSTERECT W/WO RMVL TUBE OVARY 01/16/09 [facility] Physical Exam: OBJECTIVE: Constitutional: Pt is a [...] Zulma Sol DPM documented in this encounter [facility] 01-24-2024 Note HNO ID: [id number] Author: PETER SIGALA MD Service: ? Author [...] have additional questions. Sincerely, Peter Sigala MD [facility] 01-24-2024 History of Present illness Narrative [...] Peter Sigala MD documented in this encounter [facility] 01-24-2024 Instructions Crystal Caputo OCCA - 01/24/2024 10:55 AM EST Thank you for choosing the [facility] Department of Endocrinology, Diabetes and Metabolism. Did you know that you need to call 48 hours in advance of your scheduled visit, if you are unable to make your appointment? The Endocrinology and Metabolism [facility] thanks you for your commitment, because patients not showing to their appointment results in a lost opportunity for patients to receive [facility] health care at the [facility]. To Cancel an appointment, please choose one of the following: - Call the Appointment Call Center at [phone] - From [employer], Go to Appointments - Cancel Appts If cancelling, consider your need to reschedule to prevent further delays in your care. To Schedule an appointment, please choose one of the following: - Call the Appointment Call Center at [phone] - From [employer], Go to Appointments - Request an Appt documented in this encounter [facility] 08-27-2023 Note HNO ID: [id number] Author: SYED KRUGER APRN.POLICE COMMUNICATIONS OPERATOR Service: ? Author Type: Nurse Practitioner Type: [...] further evaluation care. Will be reevaluated at [facility]. Denied transport. Syed Kruger APRN.CNP [facility] 08-27-2023 History of Present illness Narrative [...] further evaluation care. Will be reevaluated at [facility]. Denied transport. Syed Kruger APRN.VANDA documented in this encounter [facility] 07-13-2023 Telephone encounter Note CMP faxed to number below as requested. [facility] 07-13-2023 Miscellaneous Notes CMP faxed to number below as requested. Patient is requesting 07/08/23 CMP lab results to be faxed to the office of Dr. Moses at [phone]. documented in this encounter [facility] 07-13-2023 Telephone encounter Note Patient is requesting 07/08/23 CMP lab results to be faxed to the office of Dr. Moses at [phone]. [facility] 07-08-2023 Zulma Wilson - 07/08/2023 4:12 PM EDT [employer] Original Full length. Can purchase at [employer] and boots,shoes and more here in [place], [employer] in [place] or [place]. Also can find in [place] in [facility]. Powersteps can also be purchased online, [...] fits well together documented in this encounter [facility] 07-08-2023 Note HNO ID: [id number] Author: ZULMA SOL, ? Service: ? Author [...] 05/16/2014 5.8 10/22/2007 5.2 TEST PERFORMED AT [facility] PCP: No primary care provider on file. [...] dairy exacerbates MEN 1 (multiple endocrine neoplasia) ([facility]) Dr Solorzano, [facility] Morbid obesity ([facility]) 2007 s/p sleeve Dr Dale Obstructive sleep apnea fair complaince with CPAP Primary hyperparathyroidism ([facility]) 3 1/2 gland parathyroidectomy Renal [...] BYPASS HX 2007 gastric sleeve MENISCAL REPAIR SYS,[id number] Right MYRINGOTOMY ASPIRAND/EUSTACHIAN TUBE NFLTJ ANES Myringotomy/tubes PARATHYROID AUTOTRANSPLANTATIO (more content not included)... [facility] 07-08-2023 History of Present illness Narrative [...] 05/16/2014 5.8 10/22/2007 5.2 TEST PERFORMED AT [facility] PCP: No primary care provider on file. [...] dairy exacerbates MEN 1 (multiple endocrine neoplasia) ([facility]) Dr Solorzano, [facility] Morbid obesity ([facility]) 2007 s/p sleeve Dr Dale Obstructive sleep apnea [facility] complaince with CPAP Primary hyperparathyroidism ([facility]) 3 03/09 gland parathyroidectomy Renal insufficiency Sternoclavicular [...] BYPASS HX 2007 gastric sleeve MENISCAL REPAIR SYS,[id number] Right MYRINGOTOMY ASPIR&/EUSTACHIAN TUBE NFLTJ ANES Myringotomy/tubes [...] injection Zulma Sol DPM Podiatry [address] [facility] [address] Dept: [phone] Dept [facility] ROOMING INTAKE FLOWSHEET DATA Pain Pain Level: 8 Pain Location: Foot-Right Description: Aching, Burning, Pulsating, Radiating, Sharp, Stabbing Duration Units: Hours Frequency: Intermittent Intervention/Comfort measure: Medication Patient presents with: Right Foot - New, Pain, Swelling Gabreila Kunz LPN documented in this encounter [facility] 07-08-2023 Note HNO ID: [id number] Author: GABRIELA KUNZ LPN Service: ? Author Type: LICENSED NURSE Type: Progress Notes Filed: 07/09/2023 16:35 Note Text: [facility] ROOMING INTAKE FLOWSHEET DATA Pain Pain Level: 8 Pain Location: Foot-Right Description: Aching, Burning, Pulsating, Radiating, Sharp, Stabbing Duration Units: Hours Frequency: Intermittent Intervention/Comfort measure: Medication Patient presents with: Right Foot - New, Pain, Swelling Gabriela Kunz LPN [facility] 06-24-2023 Miscellaneous Notes Opened in error documented in this encounter [facility] 06-22-2023 History of Present illness Narrative Radiology [...] PATIENT PRESENTS WITH AN IMPLANTABLE OR ATTACHED PICCOLO MECHANIC: No RADIOLOGY DEPARTMENT: General X-ray: Exam(s) Completed: Lower Extremity X-Ray(s): Foot, Right PERIPHERAL IV DATA: Not applicable SIGNED BY: RT Darline(R) June 22, 2023 8:04 AM documented in this encounter [facility] 06-22-2023 Note HNO ID: [id number] Author: VANDA ZAZUETA RT(Princess) Service: ? Author Type: Group Dynamics Instructor Type: Progress Notes Filed: 06/22/2023 08:15 Note [...] PATIENT PRESENTS WITH AN IMPLANTABLE OR ATTACHED PICCOLO MECHANIC: No RADIOLOGY DEPARTMENT: General X-ray: Exam(s) Completed: Lower Extremity X-Ray(s): Foot, Right PERIPHERAL IV DATA: Not applicable SIGNED BY: RT Darline(R) June 22, 2023 8:04 AM [facility] 06-22-2023 Note HNO ID: [id number] Author: PRISCA CROOKS PA Service: ? Author Type: Physician Tub Attendant Type: Progress Notes Filed: 06/22/2023 08:37 Note Text: This note was created using miacosa. Subjective Thuy White is a 58 year [...] dairy exacerbates MEN 1 (multiple endocrine [facility]) [facility]) 2007 s/p sleeve Dr Dale Obstructive sleep apnea fair complaince with CPAP Primary hyperparathyroidism (HCC) 3 1/2 gland parathyroidectomy Renal insufficiency Sternoclavicular joint subluxation 07/16/2016 PAST SURGICAL HISTORY Procedure Laterality Date CHOLECYSTECTOMY Cholecystectomy DILATION AND CURETTAGE DXAND/THER NONOBSTETRIC 1991 For excessive menstruation ESOPHAGOGASTRODUODENOSCOPY TRANSORAL DIAGNOSTIC 2006 GASTRIC BYPASS HX 2007 gastric sleeve MENISCAL REPAIR SYS,CD,[id number] Right MYRINGOTOMY ASPIRAND/EUSTACHIAN TUBE NFLTJ ANES Myringotomy/tubes [...] Onset Diabetes Mothe (more content not included)... [facility] 06-22-2023 History of Present illness Narrative Images from the original note were not included. This note was created using Apex Learning[employer]. Subjective Thuy White is a 58 year [...] 2004 with panic attacks Herpes genitalis Hypoparathyroidism ([facility]) parathyroid implant Left forearm Hypothyroidism 09/30/2018 IFG (impaired fasting glucose) 05/08/2014 Impaired fasting glucose Insomnia 03/16/2013 Iron deficiency anemia Irritable bowel syndrome 1998 diarrhea prone, dairy exacerbates MEN 1 (multiple endocrine neoplasia) ([facility]) Dr Solorzano [facility] Morbid obesity ([facility]) 2006 s/p sleeve Dr Dale Obstructive sleep apnea fair complaince with CPAP Primary hyperparathyroidism ([facility]) 3 1/2 gland parathyroidectomy Renal insufficiency Sternoclavicular joint subluxation 07/16/2016 PAST SURGICAL HISTORY Procedure Laterality Date CHOLECYSTECTOMY Cholecystectomy DILATION & CURETTAGE DX&/THER NONOBSTETRIC 1991 For excessive menstruation ESOPHAGOGASTRODUODENOSCOPY TRANSORAL DIAGNOSTIC 2006 GASTRIC BYPASS HX 2006 gastric sleeve MENISCAL REPAIR SYS,CD,[id number] Right MYRINGOTOMY ASPIR&/EUSTACHIAN TUBE NFLTJ ANES Myringotomy/tubes [...] evaluation. JANES Fitch documented in this encounter [facility] 05-31-2023 Miscellaneous Notes Unable to contact patient. Phone number no longer in service. Patients last office visit with Dr Solorzano was June 2020. Patient was last seen by Dr Sigala in August 2022. Mailed letter to call and schedule a follow up with Dr Sigala or establish care with new Endo provider. Sent [employer] message to schedule a follow up appointment [...] Maddi Phelps MA documented in this encounter [facility] 10-09-2022 Instructions Nallely Garcia APRN.VANDA - 10/09/2022 [...] inability to swallow. documented in this encounter [facility] 10-09-2022 History of Present illness Narrative Subjective The history is provided by the patient. No hourly sign language interpreter was used. HPI Thuy White is a [...] MEN 1 ([facility] endocrine neopl[facility]) 2007 s/p sleeve Dr Dale Obstructive sleep apnea fair complaince with CPAP Primary hyperparathyroidism ([facility]) 3 1/2 gland parathyroidectomy Renal insufficiency Sternoclavicular joint subluxation 07/16/2016 I have confirmed and edited as necessary, the [facility] Review of Systems Constitutional: Negative for [...] evaluation. MICK Garcia documented in this encounter [facility] 08-26-2022 History of Present illness Narrative This office note has been dictated. Peter Sigala MD I have communicated my name and active licensure. The patient's identity and physical location were verified at the time of this visit. Either the patient or their legal patient care representative has been informed of the risks and benefits of -- and alternatives to -- treatment through a remote evaluation and consents to proceed with the evaluation remotely. documented in this encounter [facility] 07-17-2022 History of Present illness Narrative Radiology [...] TIME: 2:27 PM documented in this encounter [facility] 02-11-2022 Miscellaneous Notes Called patient to schedule-no answer. Left voicemail notifying patient she needs an appt prior to additional refills. Please verify PCP and assist in scheduling when she calls back. Linh Saini Please clarify PCP and schedule accordingly. Last appointment: 12/18/20 Next appointment: None Pharmacy verified in [facility]. Refill(s) requested: Requested Prescriptions Pending Prescriptions Disp Refills omeprazole (PRILOSEC) 20 mg capsule 180 capsule 3 Sig: Take 1 capsule by mouth twice daily. Order(s) pended. Please advise. Holly Jarrett LPN, CMA documented in this encounter [facility] 12-08-2021 Miscellaneous Notes noted Patient no longer under Dr. Salomon care. Please have patient contact current PCP. Thanks, Yaneth Syed APRN.POLICE COMMUNICATIONS OPERATOR Pharmacy verified in [facility] Patient has been identified by name [...] Maddi Phelps MA documented in this encounter [facility] 10-31-2021 Miscellaneous Notes Called to notify patient Rx was sent. Rx sent in for doxapin. Thanks, Bret Salomon MD Patient is in the process of establishing with new PCP nearer her home. Is not able to establishing with new PCP until December (first available). Will be running out of various medication and will send a [employer] message with needed medications. Medication below was [...] been out for three days. Prescribed by [facility] through [facility] that prescribed them advised that she has to get medication from PCP. 2. REFILLS REMAINING: None Last filled on September 24 at [facility] 3. EXPIRATION DATE: 4. PRESCRIBING HCP: Psychiatrist 5. SYMPTOMS: Difficulty sleeping without it. Protocols used: Medication Refill and Renewal [id number] documented in this encounter [facility] 10-07-2021 Miscellaneous Notes Spoke with patient and tried to schedule a follow up appt. Patient stated that she is looking into a new PCP in the [place] area closer to home. Patient denied scheduling and will be scheduling with new pcp. Patient due for follow up, please assist in scheduling. Yaneth Syed APRN.VANDA Pharmacy verified in [facility] Patient has been identified by name [...] Marivel Mackay Ma documented in this encounter [facility] 09-01-2021 Miscellaneous Notes Pharmacy verified in [facility] Patient has been identified by name [...] lb) Please advise. documented in this encounter [facility] 06-20-2021 Miscellaneous Notes Last appointment: 12/18/20 Next appointment: n/a Pharmacy verified in [facility]. Refill(s) requested: Pending Prescriptions Disp Refills MAGNESIUM OXIDE 400 MG (241.3 MG MAGNESIUM) TABLET 90 tablet 0 Sig: take 1 tablet by mouth once daily LITZY: Yes Order(s) pended. Please advise. Mar Pittman LPN documented in this encounter [facility] 06-02-2021 Miscellaneous Notes Last appointment: 12-18-20 Next appointment: na Pharmacy verified in [facility]. Refill(s) requested: Pending Prescriptions Disp Refills SPIRONOLACTONE 25 MG TABLET 15 tablet 1 Sig: take 1/2 tablet by mouth once daily LITZY: Yes Order(s) pended. Please advise. Amanda Perez MA, WASTE OIL PUMPER 22 documented in this encounter [facility] 06-21-2020 History of Present illness Narrative Radiology [...] 2020 2:07 PM documented in this encounter [facility] 07-13-2018 History of Past i llness Narrative [...] of this encounter (statuses as of 06/02/2021) [facility] History of Past illness Narrative* Problem Noted [...] of this encounter (statuses as of 06/20/2021) [facility] History of Past illness Narrative* Problem Noted [...] of this encounter (statuses as of 08/05/2021) [facility] History of Past illness Narrative* Problem Noted [...] of this encounter (statuses as of 09/01/2021) [facility] History of Past illness Narrative* Problem Noted [...] of this encounter (statuses as of 09/08/2021) [facility] History of Past illness Narrative* Problem Noted [...] of this encounter (statuses as of 10/07/2021) [facility] History of Past illness Narrative* Problem Noted [...] of this encounter (statuses as of 10/31/2021) [facility] History of Past illness Narrative* Problem Noted [...] of this encounter (statuses as of 12/08/2021) [facility] History of Past illness Narrative* Problem Noted [...] of this encounter (statuses as of 02/24/2022) [facility] History of Past illness Narrative* Problem Noted [...] of this encounter (statuses as of 05/22/2022) [facility] History of Past illness Narrative* Problem Noted [...] of this encounter (statuses as of 06/11/2022) [facility] History of Past illness Narrative* Problem Noted [...] of this encounter (statuses as of 07/01/2022) [facility] History of Past illness Narrative* Problem Noted [...] of this encounter (statuses as of 08/26/2022) [facility] History of Past [facility] Narrative* Problem Noted [...] of this encounter (statuses as of 10/09/2022) [facility] History of Past [facility] Narrative* Problem Noted [...] of this encounter (statuses as of 10/22/2022) [facility] History of Past illness Narrative* Problem Noted [...] of this encounter (statuses as of 01/10/2023) [facility] History of Past [facility] Narrative* Problem Noted [...] of this encounter (statuses as of 06/01/2023) [facility] History of [facility] Narrative* Problem Noted [...] of this encounter (statuses as of 06/22/2023) [facility] History of Past illness Narrative* Problem Noted [...] of this encounter (statuses as of 06/24/2023) [facility] Diagnosis Hypokalemia Hypopotassemia Swelling Edema [facility] Diagnosis Hypokalemia Hypopotassemia Swelling Edema [facility] Diagnosis Hypokalemia Hypopotassemia documented [facility]* Diagnosis Encounter for screening mammogram for breast cancer [facility] Diagnosis Leg swelling Swelling of limb [facility] Diagnosis Essential hypertension Unspecified essential hypertension documented in this encounter [facility] note* Diagnosis Postsurgical hypoparathyroidism (HCC) Hypoparathyroidism documented [facility]* Diagnosis 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 documented [facility]* Diagnosis 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 Obesity, Class III, BMI 40-49.9 (morbid obesity) (HCC) Morbid obesity [facility]* Diagnosis URI with cough and congestion- Primary Acute conjunctivitis of left eye, unspecified acute conjunctivitis type documented in this encounter [facility] note* Diagnosis 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 Hyperparathyroidism (HCC) Hyperparathyroidism, unspecified [facility] Diagnosis Malignant neoplasm of head of pancreas (HCC) Malignant neoplasm of head of pancreas [facility]* Diagnosis Acquired hypothyroidism Unspecified hypothyroidism Mixed hyperlipidemia [facility]* Diagnosis Foot pain, right- Primary Pain in limb documented in this encounter [facility] note* Diagnosis Arthritis of right midfoot- Primary Foot pain, right Pain in limb Right foot pain Pain in limb [facility]* Diagnosis Procedure not carried out- Primary Procedure not carried out for other reasons [facility] Diagnosis Leg edema- Primary Edema MEN [...] Stage III (moderate) MEN1 (multiple endocrine neoplasia) ([facility]) 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 Postsurgical hypoparathyroidism (HCC) Hypoparathyroidism Acquired hypothyroidism Unspecified hypothyroidism Iron deficiency anemia, unspecified iron deficiency anemia type DDD (degenerative disc disease), lumbar Degeneration of lumbar or lumbosacral intervertebral disc Bilateral leg edema Edema Recurrent major depressive disorder, in full remission ([facility]) CHRISTIE (generalized anxiety disorder) Generalized anxiety disorder Attention deficit hyperactivity disorder (ADHD), predominantly hyperactive type PTSD (post-traumatic stress disorder) Posttraumatic stress disorder Obesity, Class III, BMI >= 40 Morbid obesity Foot pain, right Pain in limb [facility] Diagnosis Leg edema- Primary Edema MEN (multiple endocrine neoplasia) ([facility]) Polyglandular dysfunction, unspecified CKD (chronic kidney disease) [...] kidney disease) stage 3, GFR 30-59 ml/min ([facility]) Chronic kidney disease, Stage III (moderate) MEN1 (multiple endocrine neoplasia) ([facility]) 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 Postsurgical hypoparathyroidism ([facility]) Hypoparathyroidism Acquired hypothyroidism Unspecified hypothyroidism Iron deficiency anemia, unspecified iron deficiency anemia type DDD (degenerative disc disease), lumbar Degeneration of lumbar or lumbosacral intervertebral disc Bilateral leg edema Edema Recurrent major depressive disorder, in full remission ([facility]) CHRISTIE (generalized anxiety disorder) Generalized anxiety disorder Attention deficit hyperactivity disorder (ADHD), predominantly hyperactive type PTSD (post-traumatic stress disorder) Posttraumatic stress disorder Obesity, Class III, BMI >= 40 Morbid obesity Pain in joint involving right ankle and foot [facility] Diagnosis Leg edema- Primary Edema MEN (multiple endocrine neoplasia) ([facility]) Polyglandular dysfunction, unspecified CKD (chronic kidney disease) stage 3, GFR 30-59 ml/min ([facility]) Chronic kidney disease, Stage III (moderate) Hypokalemia [...] 40 Morbid obesity MEN1 (multiple endocrine neoplasia) ([facility])- Primary 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 [facility] Diagnosis Leg edema- Primary Edema MEN (multiple endocrine neoplasia) ([facility]) Polyglandular dysfunction, unspecified CKD (chronic kidney disease) [...] 40 Morbid obesity MEN1 (multiple endocrine neoplasia) ([facility])- Primary 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 Hyperparathyroidism ([facility]) Hyperparathyroidism, unspecified documented [facility] Diagnosis Leg edema- Primary Edema MEN (multiple endocrine neoplasia) ([facility]) Polyglandular dysfunction, unspecified CKD (chronic kidney disease) stage 3, GFR 30-59 ml/min ([facility]) Chronic kidney disease, Stage III (moderate) Hypokalemia Hypopotassemia Elevated brain natriuretic peptide (BNP) level Other nonspecific findings on examination of blood Elevated BUN Other abnormal blood chemistry Elevated serum creatinine Other nonspecific findings on examination of blood Anemia, unspecified type Postsurgical hypoparathyroidism ([facility]) Hypoparathyroidism CHRISTIE (generalized anxiety disorder) Generalized anxiety [...] kidney disease) stage 3, GFR 30-59 ml/min ([facility]) Chronic kidney disease, Stage III (moderate) MEN1 (multiple endocrine neoplasia) ([facility]) 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 Postsurgical hypoparathyroidism ([facility]) Hypoparathyroidism Acquired hypothyroidism Unspecified hypothyroidism Iron deficiency [...] 40 Morbid obesity MEN1 (multiple endocrine neoplasia) ([facility])- Primary 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 Obesity, Class III, BMI 40-49.9 (morbid obesity) ([facility]) Morbid obesity [facility] Diagnosis Leg edema- Primary Edema MEN (multiple endocrine neoplasia) ([facility]) Polyglandular dysfunction, unspecified CKD (chronic kidney disease) stage 3, GFR 30-59 ml/min (HCC) Chronic kidney disease, Stage III (moderate) Hypokalemia Hypopotassemia Elevated brain natriuretic peptide (BNP) level Other nonspecific findings on examination of blood Elevated BUN Other abnormal blood chemistry Elevated serum creatinine Other nonspecific findings on examination of blood Anemia, unspecified type Postsurgical hypoparathyroidism ([facility]) Hypoparathyroidism CHRISTIE (generalized anxiety disorder) Generalized anxiety [...] Stage III (moderate) MEN1 (multiple endocrine neoplasia) ([facility]) 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 Postsurgical hypoparathyroidism (HCC) Hypoparathyroidism Acquired hypothyroidism Unspecified hypothyroidism Iron deficiency anemia, unspecified iron deficiency anemia type DDD (degenerative disc disease), lumbar Degeneration of lumbar or lumbosacral intervertebral disc Bilateral leg edema Edema Recurrent major depressive disorder, in full remission ([facility]) CHRISTIE (generalized anxiety disorder) Generalized anxiety disorder Attention deficit hyperactivity disorder (ADHD), predominantly hyperactive type PTSD (post-traumatic stress disorder) Posttraumatic stress disorder Obesity, Class III, BMI >= 40 Morbid obesity Plantar fasciitis Plantar fascial fibromatosis documented in this encounter [facility] note* Diagnosis Leg edema- Primary Edema MEN [...] major depressive disorder, in full remission (HCC) CRHISTIE (generalized anxiety disorder) Generalized anxiety disorder Attention deficit hyperactivity disorder (ADHD), predominantly hyperactive type PTSD (post-traumatic stress disorder) Posttraumatic stress disorder Obesity, Class III, BMI >= 40 Morbid obesity Plantar fasciitis- Primary Plantar fascial fibromatosis Plantar fasciitis Plantar fascial fibromatosis documented in this encounter [facility] for referral (narrative)* Diagnostic Procedure Only (Routine) - Pending Review Specialty Diagnoses / Procedures Referred By Penny t Referred To Contact [facility] Diagnoses Encounter for screening mammogram for breast cancer Procedures LEXI SCREENING SCREENING MAMMOGRAPHY BI 2-VIEW BREAST INC Bret Hughes MD [address] [place] [address] [facility] [address] [place] [id number] Referral ID Status Reason Start Date Expiration Date Visits Requested Visits Authorized [id number] Pending Review Auto-Generat ed Referral 09/03/2021 10/03/2022 1 1 T [facility] for referral (narrative)* Diagnostic Procedure Only (Urgent) - Closed Specialty Diagnoses / Procedures Referred By Contac t Referred To Contact XR IMAGING Diagnoses Foot pain, right Procedures XR FOOT GENERAL 3V AP/LAT/OBL RIGHT RADEX FOOT COMPLETE MINIMUM 3 VIEWS [facility] [address] [place] [address] [place] [address] Referral ID Status Reason Start Date Expiration Date V isits Requested Visits Authorized [id number] Closed Auto-Generate d Referral 06/22/2023 07/21/2024 1 1 [facility] for referral (narrative)* Diagnostic Procedure Only (Routine) - Closed Specialty Diagnoses / Procedures Referred By Contac t Referred To Contact XR IMAGING Diagnoses Plantar fasciitis Procedures XR FOOT GENERAL 3V AP/LAT/OBL LEFT RADEX FOOT COMPLETE MINIMUM 3 VIEWS [facility] [address] [address] [place] [address] Referral ID Status Reason Start Date Expiration Date V isits Requested Visits Authorized [id number] Closed Auto-Generate d Referral 03/24/2024 04/23/2025 1 1 [facility] for visit Narrative* Diagnostic Procedure Only (Urgent) - Closed Specialty Diagnoses / Procedures Referred By Contac t Referred To Contact XR IMAGING Diagnoses Foot pain, right Procedures XR FOOT GENERAL 3V AP/LAT/OBL RIGHT RADEX FOOT COMPLETE MINIMUM 3 VIEWS [facility] [address] [place] [address] [place] [address] Referral ID Status Reason Start Date Expiration Date V isits Requested Visits Authorized [id number] Closed Auto-Generate d Referral 06/22/2023 07/21/2024 1 1 [facility] Diagnostic Procedure Only (Routine) - Closed Specialty Diagnoses / Procedures Referred By Penny t Referred To Contact XR IMAGING Diagnoses Plantar fasciitis Procedures XR FOOT GENERAL 3V AP/LAT/OBL LEFT RADEX FOOT COMPLETE MINIMUM 3 VIEWS [facility] [address] [address] [place] [address] Referral ID Status Reason Start Date Expiration Date V isits Requested Visits Authorized [id number] Closed Auto-Generate d Referral 03/24/2024 04/23/2025 1 1 [facility] Summary Purpose Family History No Family History Records FoundNo Family History Records FoundNo Family History Records FoundNo Family History Records FoundNo Family History Records Found Advance Directives No Advanced Directives Records FoundDocuments on File Type Date Recorded Patient Ict Development Manager Expl anation Advance Directive(s) Advance Directive(s) 10/24/2018 11:36 AM Advance Directive(s) 10/15/2018 3:28 PM Advance Directive(s) 08/30/2018 6:43 PM Advance Directive(s) 08/04/2018 1:52 PM Advance Directive(s) 05/24/2018 12:12 PM Advance Directive(s) 04/19/2018 9:49 AM Advance Directive(s) 06/07/2017 4:23 PM Advance Directive(s) 10/14/2016 10:16 AM Advance Directive(s) 10/14/2016 12:51 PM Documents on File Type Date Recorded Patient Ict Development Manager Expl anation Advance Directive(s) Advance Directive(s) 10/24/2018 11:36 AM Advance Directive(s) 10/15/2018 3:28 PM Advance Directive(s) 08/30/2018 6:43 PM Advance Directive(s) 08/04/2018 1:52 PM Advance Directive(s) 05/24/2018 12:12 PM Advance Directive(s) 04/19/2018 9:49 AM Advance Directive(s) 06/07/2017 4:23 PM Advance Directive(s) 10/14/2016 10:16 AM Advance Directive(s) 10/14/2016 12:51 PM Documents on File Type Date Recorded Patient Ict Development Manager Expl anation Advance Directive(s) 10/14/2016 12:51 PM Documents on File Type Date Recorded Patient Ict Development Manager Expl anation Advance Directive(s) 10/14/2016 12:51 PM Reason for Referral Specialty Diagnoses / Procedures Referred By Contac t Referred To Contact CT IMAGING Diagnoses Malignant neoplasm of head of pancreas (HCC) Procedures CT PANCREAS W IVCON CT ABDOMEN W/CONTRAST Peter Sigala MD [address] [place] [address] Ct Imaging [place] [address] Referral ID Status Reason Start Date Expiration Date V isits Requested Visits Authorized [id number] Closed Auto-Generat ed Referral Patient Cleared - Admin/Chairm an/Director advise to proceed or did not respond 07/17/2022 09/15/2022 1 1 Specialty Diagnoses / Procedures Referred By Contac t Referred To Contact Podiatry Diagnoses Foot pain, right Procedures CONSULT TO PODIATRY OFFICE/OUTPATIENT NEW HIGH MDM 60 MINUTES [facility] [address] [place] [address] Referral ID Status Reason Start Date Expiration Date Visits Requested Visits Authorized [id number] Authorized PCP Requested Referral 06/22/2023 06/21/2024 1 1 Specialty Diagnoses / Procedures Referred By Contac t Referred To Contact XR IMAGING Diagnoses Foot pain, right Procedures XR FOOT GENERAL 3V AP/LAT/OBL RIGHT RADEX FOOT COMPLETE MINIMUM 3 VIEWS [facility] [address] [place] [address] Xr Imaging [facility] Referral ID Status Reason Start Date Expiration Date V isits Requested Visits Authorized [id number] Closed Auto-Generate d Referral 06/22/2023 07/21/2024 1 1 Additional Source Comments INFORMATION SOURCE (unrecogn ized section and content) DATE CREATED AUTHOR 09/01/2017 [facility] DATE CREATED AUTHOR AUTHOR'S ORGANIZ ATION 06/02/2018 [facility] ([place]) DATE CREATED AUTHOR AUTHOR'S ORGANIZ ATION 06/28/2020 [facility] DATE CREATED AUTHOR AUTHOR'S ORGANIZ ATION 04/01/2024 [facility] DATE CREATED AUTHOR AUTHOR'S ORGANIZ ATION 09/08/2024 [facility] Source Comments (unrecognize d section and content) In the event this informatio n is protected by the Federal Confidentiality of Alcohol and Drug Abuse Patient Records regulations: The Federal rules restrict any use of the information to criminally investigate or prosecute any alcohol or drug abuse patient.[facility] HealthIn the event this information is protected by the Federal Confidentiality of Alcohol and Drug Abuse Patient Records regulations: The Federal rules restrict any use of the information to criminally investigate or prosecute any alcohol or drug abuse patient.[facility] HealthIn the event this information is protected by the Federal Confidentiality of Alcohol and Drug Abuse Patient Records regulations: The Federal rules restrict any use of the information to criminally investigate or prosecute any alcohol or drug abuse patient.[facility] HealthIn the event this information is protected by the Federal Confidentiality of Alcohol and Drug Abuse Patient Records regulations: The Federal rules restrict any use of the information to criminally investigate or prosecute any alcohol or drug abuse patient.[facility] HealthIn the event this information is protected by the Federal Confidentiality of Alcohol and Drug Abuse Patient Records regulations: The Federal rules restrict any use of the information to criminally investigate or prosecute any alcohol or drug abuse patient.[facility] HealthIn the event this information is protected by the Federal Confidentiality of Alcohol and Drug Abuse Patient Records regulations: The Federal rules restrict any use of the information to criminally investigate or prosecute any alcohol or drug abuse patient.[facility] HealthIn the event this information is protected by the Federal Confidentiality of Alcohol and Drug Abuse Patient Records regulations: The Federal rules restrict any use of the information to criminally investigate or prosecute any alcohol or drug abuse patient.[facility] HealthIn the event this information is protected by the Federal Confidentiality of Alcohol and Drug Abuse Patient Records regulations: The Federal rules restrict any use of the information to criminally investigate or prosecute any alcohol or drug abuse patient.[facility] HealthIn the event this information is protected by the Federal Confidentiality of Alcohol and Drug Abuse Patient Records regulations: The Federal rules restrict any use of the information to criminally investigate or prosecute any alcohol or drug abuse patient.[facility] HealthIn the event this information is protected by the Federal Confidentiality of Alcohol and Drug Abuse Patient Records regulations: The Federal rules restrict any use of the information to criminally investigate or prosecute any alcohol or drug abuse patient.[facility] HealthIn the event this information is protected by the Federal Confidentiality of Alcohol and Drug Abuse Patient Records regulations: The Federal rules restrict any use of the information to criminally investigate or prosecute any alcohol or drug abuse patient.[facility] HealthIn the event this information is protected by the Federal Confidentiality of Alcohol and Drug Abuse Patient Records regulations: The Federal rules restrict any use of the information to criminally investigate or prosecute any alcohol or drug abuse patient.[facility] HealthIn the event this information is protected by the Federal Confidentiality of Alcohol and Drug Abuse Patient Records regulations: The Federal rules restrict any use of the information to criminally investigate or prosecute any alcohol or drug abuse patient.[facility] HealthIn the event this information is protected by the Federal Confidentiality of Alcohol and Drug Abuse Patient Records regulations: The Federal rules restrict any use of the information to criminally investigate or prosecute any alcohol or drug abuse patient.[facility] HealthIn the event this information is protected by the Federal Confidentiality of Alcohol and Drug Abuse Patient Records regulations: The Federal rules restrict any use of the information to criminally investigate or prosecute any alcohol or drug abuse patient.[facility] HealthIn the event this information is protected by the Federal Confidentiality of Alcohol and Drug Abuse Patient Records regulations: The Federal rules restrict any use of the information to criminally investigate or prosecute any alcohol or drug abuse patient.[facility] HealthIn the event this information is protected by the Federal Confidentiality of Alcohol and Drug Abuse Patient Records regulations: The Federal rules restrict any use of the information to criminally investigate or prosecute any alcohol or drug abuse patient.[facility] HealthIn the event this information is protected by the Federal Confidentiality of Alcohol and Drug Abuse Patient Records regulations: The Federal rules restrict any use of the information to criminally investigate or prosecute any alcohol or drug abuse patient.[facility] HealthIn the event this information is protected by the Federal Confidentiality of Alcohol and Drug Abuse Patient Records regulations: The Federal rules restrict any use of the information to criminally investigate or prosecute any alcohol or drug abuse patient.[facility] HealthIn the event this information is protected by the Federal Confidentiality of Alcohol and Drug Abuse Patient Records regulations: The Federal rules restrict any use of the information to criminally investigate or prosecute any alcohol or drug abuse patient.[facility] HealthIn the event this information is protected by the Federal Confidentiality of Alcohol and Drug Abuse Patient Records regulations: The Federal rules restrict any use of the information to criminally investigate or prosecute any alcohol or drug abuse patient.[facility] HealthIn the event this information is protected by the Federal Confidentiality of Alcohol and Drug Abuse Patient Records regulations: The Federal rules restrict any use of the information to criminally investigate or prosecute any alcohol or drug abuse patient.[facility] HealthIn the event this information is protected by the Federal Confidentiality of Alcohol and Drug Abuse Patient Records regulations: The Federal rules restrict any use of the information to criminally investigate or prosecute any alcohol or drug abuse patient.[facility] HealthIn the event this information is protected by the Federal Confidentiality of Alcohol and Drug Abuse Patient Records regulations: The Federal rules restrict any use of the information to criminally investigate or prosecute any alcohol or drug abuse patient.[facility] HealthIn the event this information is protected by the Federal Confidentiality of Alcohol and Drug Abuse Patient Records regulations: The Federal rules restrict any use of the information to criminally investigate or prosecute any alcohol or drug abuse patient.[facility] HealthIn the event this information is protected by the Federal Confidentiality of Alcohol and Drug Abuse Patient Records regulations: The Federal rules restrict any use of the information to criminally investigate or prosecute any alcohol or drug abuse patient.[facility] HealthIn the event this information is protected by the Federal Confidentiality of Alcohol and Drug Abuse Patient Records regulations: The Federal rules restrict any use of the information to criminally investigate or prosecute any alcohol or drug abuse patient.[facility] HealthIn the event this information is protected by the Federal Confidentiality of Alcohol and Drug Abuse Patient Records regulations: The Federal rules restrict any use of the information to criminally investigate or prosecute any alcohol or drug abuse patient.[facility] HealthIn the event this information is protected by the Federal Confidentiality of Alcohol and Drug Abuse Patient Records regulations: The Federal rules restrict any use of the information to criminally investigate or prosecute any alcohol or drug abuse patient.[facility] Reason for Visit (unrecogniz ed section and content) Reason Comments Hyperparathyroidism Specialty Diagnoses / Procedures Referred By Penny chang Referred To Contact Endocrinology / ENDOCRINOLOGY SURGERY Diagnoses Encounter for follow-up examination after completed treatment for conditions other than malignant neoplasm follow up Procedures OFFICE/OUTPATIENT ESTABLISHED HIGH MDM 40 MIN EST CECI PATIENT Self Peter Sigala MD [address] [place] [address] Referral ID Status Reason Start Date Expiration Date V isits Requested Visits Authorized [id number] Authorized 12/28/2023 03/07/2024 99 99 Reason Comments [...] IVCON CT ABDOMEN W/CONTRAST Peter Sigala MD [address] [place] [address] Ct Imaging [place] [address] Referral ID Status Reason Start Date Expiration Date V isits Requested Visits Authorized [id number] Closed Auto-Generat ed Referral Patient Cleared - [...] NEW HIGH MDM 60 MINUTES [facility] [address] [place] [address] Referral ID Status Reason Start Date Expiration Date V isits Requested Visits Authorized [id number] Closed PCP Requested Referral 06/22/2023 06/21/2024 1 [...] EST PODI Zulma Sol [address] [place] [address] Zulma Sol [address] [address] Referral ID Status Reason Start Date Expiration Date V isits Requested Visits Authorized [id number] Closed Patient Cleared - Admin/Chairm an/Director advise to proceed or did not respond 03/23/2024 03/07/2025 1 1 Care Teams (unrecognized sec tion and content) House Mover Helper Relationship Specialty Start Date End Date Bret Salomon MD [address] [place] [address] PCP - General Internal Medicine 12/23/15 Grayson Solorzano MD [address] [address] Physician Endocrinology 12/26/14 [facility] [address] [place] [address] 01/23/19 House Mover Helper Relationship Specialty Start Date End Date Bret Salomon MD [address] [place] [address] PCP - General Internal Medicine 12/23/15 Grayson Solorzano MD [address] [place] [address] Physician Endocrinology 12/26/14 [facility] [address] [facility] [place] [address] 01/23/19 House Mover Helper Relationship Specialty Start Date End Date Bret Salomon MD [address] [place] [address] PCP - General Internal Medicine 12/23/15 Grayson Solorzano MD [address] [place] [address] Physician Endocrinology 12/26/14 [facility] [address] [facility] [place] [address] 01/23/19 House Mover Helper Relationship Specialty Start Date End Date Bret Salomon MD [address] [place] [address] PCP - General Internal Medicine 12/23/15 Grayson Solorzano MD [address] [place] [address] Physician Endocrinology 12/26/14 [facility] [address] [facility] [place] [address] 01/23/19 House Mover Helper Relationship Specialty Start Date End Date Bret Salomon MD [address] [place], [place] [id number] PCP - General Internal Medicine 12/23/15 Grayson Solorzano MD [address] [place] [address] Physician Endocrinology 12/26/14 [facility] [address] [place] [address] 01/23/19 House Mover Helper Relationship Specialty Start Date End Date Grayson Solorzano MD [address] [place] [address] Physician Endocrinology 12/26/14 [facility] [address] [place] [address] 01/23/19 House Mover Helper Relationship Specialty Start Date End Date Grayson Solorzano MD [address] [place] [address] Physician Endocrinology 12/26/14 [facility] [address] [place] [address] 01/23/19 House Mover Helper Relationship Specialty Start Date End Date Grayson Solorzano MD [address] [place] [address] Physician Endocrinology 12/26/14 [facility] [address] [place] [address] 01/23/19 House Mover Helper Relationship Specialty Start Date End Date Grayson Solorzano MD [address] [place] [address] Physician Endocrinology 12/26/14 [facility] [address] [place] [address] 01/23/19 House Mover Helper Relationship Specialty Start Date End Date Grayson Solorzano MD [address] [place] [address] Physician Endocrinology 12/26/14 [facility] [address] [place] [address] 01/23/19 House Mover Helper Relationship Specialty Start Date End Date Grayson Solorzano MD [address] [place] [address], [place] [address] Physician Endocrinology 12/26/14 [facility] [address] [place] [address] 01/23/19 House Mover Helper Relationship Specialty Start Date End Date Grayson Solorzano MD [address] [place] [address], [place] [address] Physician Endocrinology 12/26/14 [facility] [address] [place] [address] 01/23/19 House Mover Helper Relationship Specialty Start Date End Date Grayson Solorzano MD [address] [place] [address], [place] [address] Physician Endocrinology 12/26/14 [facility] [address] [place] [address] 01/23/19 House Mover Helper Relationship Specialty Start Date End Date Grayson Solorzano MD [address] [place] [address], [place] [address] Physician Endocrinology 12/26/14 [facility] [address] [place] [address] 01/23/19 House Mover Helper Relationship Specialty Start Date End Date Grayson Solorzano MD [address] [place] [address], [place] [address] Physician Endocrinology 12/26/14 [facility] [address] [place] [address] 01/23/19 House Mover Helper Relationship Specialty Start Date End Date Grayson Solorzano MD [address] [address] Physician Endocrinology 12/26/14 [facility] [address] [place] [address] 01/23/19 House Mover Helper Relationship Specialty Start Date End Date Bret Salomon MD [address] [place] [address] PCP - General Internal Medicine 12/23/15 10/06/21 Grayson Solorzano MD [address] [place] [address] Physician Endocrinology 12/26/14 [facility] [address] [place] [address] 01/23/19 House Mover Helper Relationship Specialty Start Date End Date Grayson Solorzano MD [address] [place] [address] Physician Endocrinology 12/26/14 [facility] [address] [place] [address] 01/23/19 House Mover Helper Relationship Specialty Start Date End Date Grayson Solorzano MD [address] [place] [address] Physician Endocrinology 12/26/14 [facility] [address] [place] [address] 01/23/19 House Mover Helper Relationship Specialty Start Date End Date Grayson Solorzano MD [address] [place] [address] Physician Endocrinology 12/26/14 [facility] [address] [place] [address] 01/23/19 House Mover Helper Relationship Specialty Start Date End Date Grayson Solorzano MD [address] [address] Physician Endocrinology 12/26/14 [facility] [address] [facility] [address] 01/23/19 House Mover Helper Relationship Specialty Start Date End Date Grayson Solorzano MD [address] [place] [address] Physician Endocrinology 12/26/14 [facility] [address] [facility] [address] 01/23/19 FOR RECORDS PERTAINING TO PATIENTS WHO [...] BE BASED ON THE PRIMARY CLINICAL RECORDS. [employer] [facility]. provides no warranty or guarantee of the accuracy or completeness of information in this document.
--- NOTE | 2024-09-09 18:15 | RAD_ITS ---
PROCEDURE: FOOT MIN 3 VIEWS 09/09/2024 REASON FOR EXAM: ATRAUMATIC RIGHT FOOT PAIN. TECHNIQUE: FOOT MIN 3 VIEWS FINDINGS: No fracture or dislocation. Joint spaces maintained. No foreign body RAD/Foot min 3 Views IMPRESSION: Negative right foot Reading [facility]
--- NOTE | 2024-09-09 18:15 | RAD_ITS ---
PROCEDURE: FOOT MIN 3 VIEWS 09/09/2024 REASON FOR EXAM: ATRAUMATIC RIGHT FOOT PAIN. TECHNIQUE: FOOT MIN 3 VIEWS FINDINGS: No fracture or dislocation. Joint spaces maintained. No foreign body RAD/Foot min 3 Views IMPRESSION: Negative right foot Reading [facility]
[2024-09-09 18:36] VITALS: BP 128/78; PULSE 64; RESP 18; TEMP 36.6; O2SAT 99
== END 2024-09-09 18:36 | disposition home or self-care (01) ==
PROVIDERS: Emergency Provider Emergency Medicine; PCP Internal Medicine; Visit Provider Emergency Medicine
DX: M79.671 Pain in right foot (principal); S90.31XA Contusion of right foot, initial encounter; E66.9 Obesity, unspecified; X58.XXXA Exposure to other specified factors, initial encounter
CPT/HCPCS: 73630; 99282

== ENCOUNTER → 2024-09-19 | Outpatient (CLI) | payer MEDICARE, MEDICAID, SELFPAY ==
[2024-09-19 11:57] LABS: Anion Gap 14 (5-15); BUN 17 mg/dL (4-19); BUN/Creat Ratio 12.2 RATIO (10-20); Calcium,Total 10.8 mg/dL (7.6-11.0); Carbon Dioxide 23.7 mmol/L (21.0-32.0); Chloride 101 mmol/L (98-108); Glucose 106 mg/dL (70-99); Potassium 3.8 mmol/L (3.3-5.1)
== END | disposition home or self-care (01) ==
LOC: LAB 10:49
PROVIDERS: PCP Internal Medicine; Referring Provider Internal Medicine Endocrinology, Diabetes & Metabolism; Visit Provider Internal Medicine Endocrinology, Diabetes & Metabolism
DX: E89.2 Postprocedural hypoparathyroidism (principal)
CPT/HCPCS: 36415; 80048

== ENCOUNTER → 2024-10-16 | Outpatient (CLI) | payer MEDICARE, MEDICAID, SELFPAY ==
[2024-10-16 13:41] LABS: Anion Gap 13 (5-15); BUN 18 mg/dL (4-19); BUN/Creat Ratio 10.7 RATIO (10-20); Calcium,Total 9.7 mg/dL (7.6-11.0); Carbon Dioxide 22.8 mmol/L (21.0-32.0); Chloride 102 mmol/L (98-108); Glucose 113 mg/dL (70-99); Potassium 4.3 mmol/L (3.3-5.1)
== END | disposition home or self-care (01) ==
LOC: LAB 12:23
PROVIDERS: PCP Internal Medicine; Referring Provider Internal Medicine Endocrinology, Diabetes & Metabolism; Visit Provider Internal Medicine Endocrinology, Diabetes & Metabolism
DX: E89.2 Postprocedural hypoparathyroidism (principal)
CPT/HCPCS: 36415; 80048

== ENCOUNTER → 2024-12-22 | Outpatient (CLI) | payer MEDICARE, MEDICAID, SELFPAY ==
[2024-12-22 12:11] LABS: AST(SGOT) 23 U/L (<=31); Alanine Aminotransfer ALT/SGPT 10 U/L (<=34); Albumin, Serum 4.3 g/dL (3.5-5.0); Alkaline Phosphatase 137 U/L (35-104); Anion Gap 17 (5-15); BUN 13 mg/dL (4-19); BUN/Creat Ratio 9.3 RATIO (10-20); CPK Total, Creatine Kinase 108 U/L (24-195); Calcium,Total 9.1 mg/dL (7.6-11.0); Carbon Dioxide 24.7 mmol/L (21.0-32.0); Chloride 96 mmol/L (98-108); Globulin 3.8 g/dL (2.2-4.2); Glucose 110 mg/dL (70-99); Potassium 3.3 mmol/L (3.3-5.1)
== END | disposition home or self-care (01) ==
LOC: LAB 10:35
PROVIDERS: PCP Internal Medicine; Referring Provider Internal Medicine Endocrinology, Diabetes & Metabolism; Visit Provider Internal Medicine Endocrinology, Diabetes & Metabolism
DX: E89.2 Postprocedural hypoparathyroidism (principal)
CPT/HCPCS: 36415; 80053; 82550

== ENCOUNTER 2025-02-13 05:07 | Emergency (ER) | payer MEDICAID, MEDICARE, SELFPAY ==
[2025-02-13 05:08] VITALS: BP 122/100; PULSE 84; RESP 18; TEMP 36.6; O2SAT 99; BMI 45.1
--- NOTE | 2025-02-13 05:32 | EDS_ITS ---
HPI History of Present Illness Chief Complaint: Weakness Informant: patient and EMS Narrative Narrative: Patient is a 59-year-old female with past medical history of hypertension and chronic kidney disease as well as previous gastric sleeve surgery. She states is secondary to her gastric sleeve and kidney disease she has difficulty maintaining her electrolytes. She states that over the weekend she felt unwell and was nauseous and had bouts of loose stool/diarrhea. She states that this resolved after 2 to 3 days but since that time she has had generalized fatigue and muscle aches as well as progressive entire body tingling. She states that the last time she felt this way her potassium was low and she has concern for that once again and therefore comes into the ER for evaluation [facility] Medical History Chronic kidney disease (CKD) stage G3b/A1, moderately decreased glomerular filtration rate (GFR) between 30-44 mL/min/1.73 square meter and albuminuria creatinine ratio less than 30 mg/g Anxiety disorder, unspecified Major depressive disorder, recurrent severe without psychotic features Cough Allergic conjunctivitis Allergic dermatitis of eyelids of both eyes Post-menopausal Wears contact lenses Wears glasses Wears dentures Vertigo History of renal disease High cholesterol Easy bruising History of IBS Gastric reflux Non-smoker Shortness of breath on exertion Leg cramps History of edema Hypertension Gout Exocrine pancreatic insufficiency Chronic diarrhea Stage III chronic kidney disease Obesity Post-surgical hypoparathyroidism Hypothyroidism (acquired) History of blood transfusion Obstructive sleep apnea Multiple endocrine neoplasia (MEN) type I Migraine Multiple endocrine neoplasia type 1 (MEN1) Insomnia Anxiety Edema Allergic rhinitis ADHD Vitamin D deficiency Depression Hypothyroidism Restless leg syndrome Post traumatic stress disorder GERD (gastroesophageal reflux disease) Irritable bowel syndrome Anemia Chronic kidney disease, stage 3 Sleep apnea Osteoarthritis of right knee Difficulty balancing Knee pain Fatigue Anemia Kidney disease Arthritis history of left foot fracture History of kidney stones Ureteral calculus Home Medications ?Medication ?Instructions ?Recorded ?Last Taken ?Type cyanocobalamin (vitamin B-12) 500 1,000 mcg PO DAILY@0 800 Supplement 09/16/17 05/15/24 History mcg tablet albuterol sulfate 2.5 mg/3 mL 2.5 mg (3 mL) inhalation Q6H PRN 09/05/23 Unknown Rx (0.083 %) solution for nebulization shortness of breat h or wheezing #75 mL nebulizer and compressor #1 ea 09/05/23 Unknown Rx compr.stocking,thigh,reg,x-lrg #12 ea 09/14/23 Unknown Rx levothyroxine 100 mcg tablet 100 mcg PO DAILY thyroid #90 tabs 12/24/23 05/15/24 Rx bupropion HCl 300 mg 24 hr tablet, 300 mg PO DAILY MOO D 05/16/24 05/15/24 History extended release palopegteriparatide 168 mcg/0.56 12 mcg (0.04 mL) subc ut QDAY #1.12 12/04/24 Unknown Rx mL subcutaneous pen injector mL (Yorvipath) furosemide 20 mg tablet 20 mg PO DAILY FLUID RETENTI ON #30 01/23/25 Unknown Rx tabs albuterol sulfate 90 mcg/actuation 2 puff inhalation Q 4H PRN Wheezing 01/24/25 Unknown Rx aerosol inhaler (Ventolin HFA) #8.5 grams cariprazine 1.5 mg capsule 1.5 mg PO DAILY #90 caps Unknown Rx (Vraylar) fluticasone propionate 50 1 spray intranasal BID NASAL 01/24/25 Unknown Rx mcg/actuation nasal CONGESTION #16 grams spray,suspension (Allergy Relief (fluticasone)) potassium chloride 20 mEq 20 meq PO DAILY SUPPLEMENT # 90 tabs 01/24/25 Unknown Rx tablet,extended release sucralfate 1 gram tablet 1 g PO .AC and at bedtime #1 20 tabs 01/24/25 Unknown Rx trazodone 50 mg tablet 50 mg PO QHS PRN sleep #30 t abs 01/24/25 Unknown Rx vortioxetine 20 mg tablet 20 mg PO DAILY depression #9 0 tabs 01/24/25 Unknown Rx (Trintellix) cholecalciferol (vitamin D3) 50 50 mcg PO DAILY SUPPLE MENT #90 caps 02/11/25 Unknown Rx mcg (2,000 unit) capsule atorvastatin 20 mg tablet (Lipitor) 20 mg PO DAILY 11/30 Unknown History calcium 500 mg tablet 500 mg PO DAILY 02/13/25 Unk nown History pantoprazole 40 mg tablet,delayed 20 mg PO DAILY HEART BURN 02/13/25 Unknown History release Allergy/AdvReac Type Severity Reaction Status Date / Time Iodinated Contrast Media Allergy Rash Verified 02/13/25 05:09 (PILAR) propranolol Allergy unknown Verified 02/13/25 05:09 iron AdvReac Other Verified 02/13/25 05:09 morphine AdvReac Rash Verified 02/13/25 05:09 ondansetron (From Zofran) AdvReac Other Verified 02/13/25 05:09 Family History Mother Stomach cancer Anemia Arthritis MEN, type 1 Father Pneumonia Anxiety Arthritis Depression Surgical History History of esophagogastroduodenoscopy (EGD) History of colonoscopy H/O right knee surgery History of hysterectomy History of parathyroidectomy History of cholecystectomy history of right collar bone surgery history of gastric sleeve Social History adopted: No household members: none housing: apartment current occupational status: disabled current occupation: disability history of recent travel: No sexually active: No Smoking Status: Never smoker Electronic Cigarette Use: not used alcohol intake: current alcohol intake frequency: holidays/special occasions only details: once or twice a year substance use type: does not use, former substance user and marijuana diet: low salt well-balanced diet: about half the time caffeine: Yes eating out: 4 or more times/week during the past year weight has: increased > 10 lbs what type of physical activity do you participate in: walking frequency: 1-2 times per week seatbelt use: always do you feel safe at home: Yes ROS ROS ED Constitutional Constitutional ED: Denies chills or fever(s) Eyes Eyes: Denies blurry vision or change in vision ENT ENT ED: Denies sore throat Cardiovascular Cardiovascular: Denies chest pain, palpitations or racing heartbeat Respiratory/Chest Respiratory/Chest: Denies cough or dyspnea Gastrointestinal Gastrointestinal: Reports diarrhea and nausea; Denies abdominal pain or vomiting Genitourinary Genitourinary ED: Denies dysuria Musculoskeletal Musculoskeletal: Reports myalgias Integumentary Denies rash Neurologic Neurologic: Reports paresthesias; Denies headache(s) Psychiatric Psychiatric: Reports anxiety Hematologic/Lymphatic Hematologic/Lymphatic: Denies easy bleeding or easy bruising EXAM Physical Exam Const Vital Signs: 02/13/25 05:08 02/13/25 05:08 02/13/25 06:51 Temperature 97.9 F 97.8 F Temperature Source Oral Pulse Rate 84 72 Respiratory Rate 18 20 H Respiratory Effort Normal Non-Labored Respiratory Pattern Normal Blood Pressure 122/100 H 106/69 Blood Pressure Mean 107 81 Pulse Ox 99 100 Oxygen Delivery Method Room Air Positive well nourished, well developed and obese General Appearance ED: well developed; Negative for pallor Nutritional Appearance: obese HEENT Reports dry mucous membranes HEENT Narrative: Normocephalic atraumatic No tongue or lip swelling no oral lesions no airway edema or compromise No secondary findings in the posterior pharynx to suggest infection Mucous membranes are dry and tacky Mouth ED: Yes dry mucous membranes Mouth: dry mucous membranes Eyes PERRL and EOMs intact bilaterally General Eye ED: Negative for scleral icterus Neck supple Resp normal respiratory effort and clear to auscultation bilaterally Cardio regular rate and regular rhythm Rate: other Other Details: Radial and carotid pulses are equal and symmetric GI non-tender and non-distended GI Narrative: Abdomen is soft nontender nondistended with hyperactive bowel sounds No voluntary guarding or rigidity or pulsatile mass No peritoneal signs Auscultation: hyperactive bowel sounds Palpation: soft Extremity normal to inspection Extremity Narrative: No sign of long bone injury such as bony deformity or joint effusion All compartments are soft and compressible going against compartment Neuro oriented x3, CN's II-XII intact bilaterally and no sensory deficits noted Sensorium / Orientation: alert Motor Exam: strength 5/5 throughout Psych mental status grossly normal Skin no rashes or lesions noted and No skin turgor normal Skin Narrative: Skin turgor is increased consistent with dehydration General Skin Exam: Negative for jaundice or pallor MDM MDM MDM Narrative Medical decision making narrative: Patient presented to the ER with stable vitals and a soft nonsurgical abdomen so I felt no need for an emergent CT scan. With her history of gastric bypass and then reporting a day or 2 of loose stool/diarrhea with decreased oral intake over the weekend there is high likelihood patient has mild dehydration which could have affected electrolyte balance causing her symptoms. Therefore in order to assess for acute kidney injury versus hypokalemia versus hypocalcemia I did like to perform basic laboratory studies. As she reported muscle aches and pains there is concern that she could also develop rhabdomyolysis with a CPK value was added. Lab work showed mild elevation to her creatinine at 1.45 chart review reveals this is near baseline with the last value being 1.35. Potassium going down by 0.1 at 3.2 which is not clinically significant and calcium is down by 0.7 at 6.9 also not clinically significant. After receiving IV fluid as well as Toradol she reported improvement of her symptoms and vitals remained stable. On reevaluation abdomen remains soft and nonsurgical. Therefore if the patient is not requiring electrolyte replacement through an IV route secondary to significant depletion and she is not having acute on chronic kidney injury there is no need for further intervention and she is otherwise safe for discharge History & Record Review Discussion w/independent historian: Patient Lab Data Attestation: I reviewed the patient's lab results. Labs: Laboratory Results - last 24 hr 02/13/25 05:28 WBC 7.7 RBC 5.05 Hgb 12.0 Hct 37.9 MCV 75.0 L MCH 23.8 L MCHC 31.7 L RDW Std Deviation 44.3 H RDW Coeff of Teena 16.5 H Plt Count 406 MPV 9.6 Immature Gran % (Auto) 0.300 Neut % (Auto) 58.4 Lymph % (Auto) 29.2 [place] % (Auto) 6.3 Eos % (Auto) 4.8 Baso % (Auto) 1.0 Absolute Neuts (auto) 4.5 Absolute Lymphs (auto) 2.24 Nucleated RBC % 0 Sodium 136 Potassium 3.2 L Chloride 97 L Carbon Dioxide 21.5 Anion Gap 17 H BUN 25 H Creatinine 1.45 H Estim Creat Clear Calc 59.55 Est GFR (MDRD) Non-Af 42 L BUN/Creatinine Ratio 17.2 Glucose 99 Calcium 6.9 L Magnesium 1.9 Total Creatine Kinase 176 Discharge Plan Triage Chief Complaint: Weakness ED Provider: Lemuel Bledsoe Dx/Rx/DC Orders Clinical Impression: Dehydration, Chronic kidney disease, Anxiety, Hypertension Instructions: ED Chronic Kidney Disease (CKD), ED Dehydration (Adult) Prescriptions: No Action levothyroxine 100 mcg tablet 100 mcg PO DAILY Qty: 90 3RF (DME) compr.stocking,thigh,reg,x-lrg Misc See Rx Instructions .Route Qty: 12 0RF Rx Instructions: As directed cyanocobalamin (vitamin B-12) 500 MCG tablet 1,000 mcg PO DAILY@0800 calcium 500 mg tablet 500 mg PO DAILY atorvastatin [Lipitor] 20 mg tablet 20 mg PO DAILY pantoprazole 40 mg tablet,delayed release (DR/EC) 20 mg PO DAILY bupropion HCl 300 mg tablet extended release 24 hr 300 mg PO DAILY albuterol sulfate 2.5 mg /3 mL (0.083 %) solution for nebulization 2.5 mg inhalation Q6H PRN (Reason: shortness of breath or wheezing) Qty: 75 0RF Patient Comments: pt states she doesnt use but is supposed to. (DME) nebulizer and compressor Device See Rx Instructions .Route Qty: 1 0RF Rx Instructions: As directed Yorvipath 168 mcg/0.56 mL pen injector 12 mcg subcut QDAY Qty: 1.12 3RF furosemide 20 mg tablet 20 mg PO DAILY Qty: 30 0RF Vraylar 1.5 mg capsule 1.5 mg PO DAILY Qty: 90 1RF Trintellix 20 mg tablet 20 mg PO DAILY Qty: 90 1RF trazodone 50 mg tablet 50 mg PO QHS PRN (Reason: sleep) Qty: 30 1RF albuterol sulfate [Ventolin HFA] 90 mcg/actuation HFA aerosol inhaler 2 puff inhalation Q4H PRN (Reason: Wheezing) Qty: 8.5 0RF fluticasone propionate [Allergy Relief (fluticasone)] 50 mcg/actuation spray,suspension 1 spray intranasal BID Qty: 16 0RF Rx Instructions: administer into each nostril potassium chloride 20 mEq tablet extended release 20 meq PO DAILY Qty: 90 0RF sucralfate 1 gram tablet 1 g PO .AC and at bedtime Qty: 120 0RF cholecalciferol (vitamin D3) 50 mcg (2,000 unit) capsule 50 mcg PO DAILY Qty: 90 0RF Primary Care Provider: Alondra Davies Referrals: Alondra Davies MD [Primary Care Provider, Internal Medicine] Activity Restrictions/Additional Instructions: Your lab work showed changes consistent with mild to moderate dehydration as your kidney function is slightly increased at a value of 1.45. Your potassium was 3.2 today which is only down by 0.1 and your calcium was 6.9 which is down by 0.7. Please keep yourself well-hydrated and continue your [id number] s upplements to bring these values into a normal range. Return to the ER should you have any further concerns Print Language: Telugu Disposition Disposition: Home, Self Care Discharge Date/Time: 02/13/25 07:00
[2025-02-13] MEDS: 0.9% Normal Saline (1000mL) 1,000 ML 999 ML IV (05:34)
[2025-02-13 05:37] LABS: Hematocrit 37.9 % (37-47); Hemoglobin 12.0 g/dL (12.0-15.0); Immature Granulocytes Count 0.020 X10^3/uL (0.0-0.0); Mean Corp Hgb Conc 31.7 g/dL (32-36); Mean Corpuscular Volume 75.0 fL (81-99); Mean Platelet Vol. 9.6 fl (6.2-12.0); NRBC Flagged by Analyzer 0 % (0-5); Platelet Count 406 K/mm3 (150-450); RBC Distribution Width CV 16.5 % (11.6-14.6); RBC Distribution Width SD 44.3 fl (35.1-43.9); Red Blood Count 5.05 M/mm3 (4.2-5.4); White Blood Count 7.7 K/mm3 (4.4-11.0)
--- OUTSIDE RECORDS SUMMARY | 2025-02-13 05:42 | XMS RPT_ITS | CCD ---
Author Organization [facility] Care Team Providers Care Cotton Tier Name Role Phone GABRIELA MAY Attending Unavailable KEITH YAN Primary Care Unavailable GABRIELA MAY Attending Unavailable KEITH YAN Primary Care Unavailable Grayson Solorzano MD Unavailable Bret Salomon MD Primary Care Provider [phone] Grayson Solorzano MD Unavailable Grayson Solorzano MD Unavailable Bret Salomon MD Primary Care Provider [phone] ZULMA SOL Attending Unavailable TESTRAZULMA LUI Referring Unavailable JODIEERSTEINPETER Referring Unavailable PETER SIGALA Attending Unavailable TESTJO, ZULMA Referring Unavailable TESTRAZULMA LUI Attending Unavailable TESTRAZULMA LUI Referring Unavailable Samson, Alondra Primary Care Unavailable Zulma Kolb Attending Unavailable Zulma Kolb Referring Unavailable Samson, Alondra Primary Care Unavailable Samson, Alondra Attending Unavailable Waverly, Alondra Referring Unavailable Samson, Alondra Primary Care Unavailable Galdino Camacho Attending Unavailable Michael Lombardo Attending Unavailable Lesa Carter Consulting Unavailable Waverly, Alondra Primary Care Unavailable Grupo, Michael Referring Unavailable Samson, Alondra Primary Care Unavailable Zulma Kolb Referring Unavailable WaytZulma Attending Unavailable Samson, Alondra Attending Unavailable Samson, Alondra Primary Care Unavailable Samson, Alondra Referring Unavailable Michael Lombardo Attending Unavailable Samson, Alondra Primary Care Unavailable Michael Lombardo Referring Unavailable Filomena Lopez Admitting Unavailable Koalexandraonis, Brian F Attending Unavailable Samson, Alondra Primary Care Unavailable John, Filomena Consulting Unavailable Grupo, Michael Attending Unavailable Waverly, Alondra Primary Care Unavailable Grupo, Michael Referring Unavailable Waverly, Alondra Primary Care Unavailable Joey Hughes Attending Unavailable Waverly, Alondra Primary Care Unavailable Camacho, Galdino Attending Unavailable Camacho, Galdino Attending Unavailable Samson, Alondra Primary Care Unavailable Uzair Joy Attending Unavailable Samson, Alondra Primary Care Unavailable Samson, Alondra Primary Care Unavailable Lemuel Bledsoe Attending Unavailable Grupo, Michael Attending Unavailable Samson, Alondra Primary Care Unavailable Grupo, Michael Referring Unavailable Grupo, Michael Attending Unavailable Samson, Alondra Primary Care Unavailable Grupo, Michael Referring Unavailable Grupo, Michael Referring Unavailable Grupo, Michael Attending Unavailable Waverly, Alondra Primary Care Unavailable Waverly, Alondra Primary Care Unavailable Zulma Kolb Attending Unavailable Grupo, Michael Attending Unavailable Samson, Alondra Primary Care Unavailable Grupo, Michael Referring Unavailable Grupo, Michael Attending Unavailable Waverly, Alondra Primary Care Unavailable Grupo, Michael Referring Unavailable Agyepong, Velasquez Admitting Unavailable Agyepong, Velasquez Consulting Unavailable Waverly, Alondra Primary Care Unavailable Le, Agustin Referring Unavailable Jonathan Jim Attending Unavailable Agyepong, Velasquez Consulting Unavailable Agyepong, Velasquez Admitting Unavailable Waverly, Alondra Primary Care Unavailable Monique, Agustin Referring Unavailable Jonathan Jim Attending Unavailable Jonathan Jim Consulting Unavailable Waverly, Alondra Primary Care Unavailable Grupo, Michael Attending Unavailable Grupo, Michael Referring Unavailable John, Filomena Consulting Unavailable John, Filomena Admitting Unavailable John, Filomena Attending Unavailable Samson, Alondra Primary Care Unavailable Brian Smalls Attending Unavailable Brian Smalls Consulting Unavailable Waverly, Alondra Primary Care Unavailable Kenn Terrell Attending Unavailable Waverly, Alondra Primary Care Unavailable Waverly, Alondra Referring Unavailable Zulma Kolb Attending Unavailable Waverly, Alondra Primary Care Unavailable Kenn Terrell Attending Unavailable Samson, Alondra Primary Care Unavailable Kenn Terrell Attending Unavailable Samson, Alondra Attending Unavailable Samson, Alondra Primary Care Unavailable Waverly, Alondra Referring Unavailable Waverly, Alondra Primary Care Unavailable Kenn Terrell Attending Unavailable Waverly, Alondra Primary Care Unavailable Waverly, Alondra Referring Unavailable Michael Lombardo Attending Unavailable Waverly, Alondra Primary Care Unavailable Paulina Hernandez Attending Unavailable Samson, Alondra Referring Unavailable Waverly, Alondra Primary Care Unavailable Samson, Alondra Attending Unavailable Waverly, Alondra Referring Unavailable Waverly, Alondra Referring Unavailable Michael Lombardo Attending Unavailable Waverly, Alondra Primary Care Unavailable Kenn Terrell Attending Unavailable Samson, Alondra Primary Care Unavailable Velasquez Gonzalez Attending Unavailable Allergies Allergy Classification Reported Allergen(s) Allergy Type Date of Onset Reaction(s) Facility (20 sources) Contrast media; Translations: [CONTRAST DYE] Drug Allergy 8 Rash, Intolerance [facility] (20 sources) ferrous gluconate; Translations: [FERROUS GLUCONATE] Drug Allergy 3 GI Upset [facility] Work Phone: (20 sources) Morphine; Translations: [MORPHINE] Drug Allergy 6 Rash [facility] (20 sources) Ondansetron; Translations: [ONDANSETRON] Drug Allergy 8 Other: See Comments [facility] (20 sources) oxyCODONE; Translations: [OXYCODONE HCL] Drug Allergy 7 Rash, Swelling [facility] (20 sources) Propranolol; Translations: [PROPRANOLOL] Drug Allergy 8 Itching [facility] Work Phone: (6 sources) Iodides; Translations: [IODIDES] Drug Allergy 1 Intolerance [facility] (1 source) Iron Drug Allergy 5 [facility] (1 source) Morphine Drug Allergy 5 [facility] Repository (1 source) Ondansetron Drug Allergy 5 [facility] Repository (1 source) Propranolol Drug Allergy 5 [facility] Repository (1 source) Iodinated Contrast Media Drug allergy (disorder) [facility] Repository Medications Current Medications Medication Drug Class(es) Dates Sig (Normalized) Sig (Original) [id number] 200 actuat albuterol 0.09 mg/actuat metered dose [...] tablet (4 sources) Anticholinergic, Antihistamine Start: 12-01-19 take 1 tablet by mouth every twelve [...] capsule (20 sources) Vitamin D3 Analog Start: take 2 capsules by mouth once daily [...] Comment on above: take [address] [facility] once daily calcium carbonate 500 mg chewable [...] mouth once daily. Take 1 capsule by [facility] one time a week. diphenhydrAMINE hydrochloride [...] Comment on above: take 1 tablet by [facility] twice a day hydrOXYzine pamoate 25 mg [...] Comment on above: Take 1 capsule by [facility] four times daily as needed for anxiety for up to 30 doses. levothyroxine sodium 0.1 mg oral tablet (20 sources) l-Thyroxine Start: 05-30-19 take 1 tablet by mouth once daily levothyroxine (SYNTHROID) 100 mcg tablet Indications: Acquired hypothyroidism take 1 tablet by mouth once daily 90 tablet 3 05/29/2022 Active Start: 06-01-2021 take 1 tablet by [facility] once daily levothyroxine (SYNTHROID) 100 mcg tablet [...] 1 tablet by [facility] once daily magnesium oxide 400 mg oral tablet (20 sources) Start: 1 End: 2 take 1 tablet by mouth once daily magnesium oxide (MAG-OX) 400 mg (241.3 mg magnesium) tablet take 1 tablet by mouth once daily 90 tablet 06/20/2021 Active Comment on above: Take 1 tablet by [facility] once daily. take 1 tablet by [facility] once daily omeprazole 20 mg delayed release oral capsule (20 sources) Proton Pump Inhibitor Start: 0 End: 1 take 1 capsule by mouth twice daily omeprazole (PRILOSEC) 20 mg capsule take 1 capsule by mouth twice a day 180 capsule 3 11/18/2020 Active Comment on above: take 1 capsule by mo [facility] twice a day pantoprazole (8 sources) Proton Pump Inhibitor take 1 capsule by mouth once daily pantoprazole sodium (PROTONIX ORAL) Take 1 capsule by mouth once daily. Active pantoprazole sod ium (PROTONIX ORAL) Take by mouth. Active pantoprazole sod ium (PROTONIX ORAL) Take by mouth. 0 Active polymyxin b [id number] unt/ml / trimethoprim 1 mg/ml ophthalmic solution [...] on above: take 1 tablet by [facility] at bedtime if needed sleep spironolactone 25 [...] Comment on above: take 1/[address] [facility] once daily Take 0.5 tablets by mouth [...] Serotonin and Norepinephrine Reuptake Inhibitor Start: 08-18-19 take 3 tablets by mouth once daily venlafaxine (EFFEXOR) 75 mg tablet Take 3 tablets by mouth once daily. 180 tablet 3 08/18/2019 Active Comment on above: Take 3 tablets by mo [facility] once daily. vitamin b12 1 mg oral tablet (20 sources) Vitamin B12 Start: 03-16-19 take 1 tablet by mouth once daily [...] 1 tablet by [facility] once daily vortioxetine 20 mg oral tablet (11 sources) Start: 4 take 1 tablet by mouth once daily for depression TRINTELLIX 20 mg tablet take 1 tablet by mouth once daily AT THE SAME TIME EACH DAY for depression 05/10/2023 Active Comment on above: take 1 tablet by [facility] once daily AT THE SAME TIME EACH [...] Comment on above: Take 1 capsule by mo [facility] daily at bedtime. Take 10 mg by [...] Classification Problem Date Documented Da te Episodic/Chronic Acquired foot deformities (1 source) Other acquired deformities of left foot; Translations: [Skewfoot deformity, left] Onset: Episodic Anxiety disorders (20 sources) Generalized anxiety [...] Onset: 4 03-03-2021 Chronic Chronic kidney disease (3 sources) Chronic kidney disease; Translations: [Chronic kidney disease, stage 3b] Onset: 5 Chronic ulcer of skin (20 sources) Traumatic ulcer; Translations: [Non-pressure chronic ulcer of skin of other sites with fat layer exposed] Onset: 1 04-14-2020 Chronic Complications of surgical procedures or medical care (20 sources) Post-surgical hypoparathyroidism; Translations: [Postprocedural hypoparathyroidism] Onset: 7 08-05-2018 Chronic Conditions associated with dizziness or vertigo (1 source) Dizziness and giddiness; Translations: [Dizziness and giddiness] Onset: 5 Episodic Disorders of lipid metabolism (20 sources) Hyperlipidemia; [...] (20 sources) Depressive disorder; Translations: [Depression] Onset: 5 08-05-2018 Chronic Nutritional deficiencies (1 source) Vitamin D deficiency, [...] Translations: [Plantar fascial fibromatosis] 03-24-2024 Episodic Other endocrine disorders (20 sources) Multiple endocrine neoplasia, type 1; 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] Onset: 8 03-03-2021 Chronic Other endocrine disorders (1 source) 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; Translations: [MEN1 (multiple endocrine neoplasia) ([facility])] Onset: 1 Chronic Other gastrointestinal disorders (20 sources) History of bypass of stomach; Translations: [Bariatric surgery status] 06-28-2012 Episodic Other non-traumatic joint disorders (1 source) Arthralgia of the ankle and/or foot; Translations: [Pain in right ankle and joints of right foot] 06-21-2020 Episodic Other nutritional; endocrine; and metabolic disorders (20 sources) Body mass index 40+ - severely obese; Translations: [Morbid (severe) obesity due to excess calories] Onset: 8 11-24-2017 Chronic Other nutritional; endocrine; and metabolic disorders (1 source) Morbid (severe) obesity due to excess calories; Translations: [Obesity, Class III, BMI 40-49.9 (morbid obesity) ([facility])] Onset: 8 Chronic Other nutritional; endocrine; and metabolic disorders (1 source) Hypocalcemia; Translations: [Hypocalcemia] Onset: 5 Chronic Other nutritional; endocrine; and metabolic disorders (2 sources) Hypercalcemia; Translations: [Hypercalcemia] Onset: 5 Chronic Other screening for suspected conditions (not mental disorders or infectious disease) (1 source) Patient encounter status; Translations: [Encounter for screening mammogram for malignant neoplasm of breast] Episodic Other upper respiratory infections (1 source) Upper respiratory infection; Translations: [Acute upper respiratory infection, unspecified] 10-09-2022 Episodic Pathological fracture (1 source) Pathological fracture, left foot, subsequent encounter for fracture with nonunion; Translations: [Metatarsal fracture, pathologic, left, with nonunion, subsequent encounter] Onset: 5 Episodic Residual codes; unclassified (20 sources) Obstructive sleep apnea syndrome; Translations: [Obstructive sleep apnea (adult) (pediatric)] Onset: 7 08-05-2018 Chronic Residual codes; unclassified (2 sources) Swelling; Translations: [Edema, unspecified] Episodic Residual codes; unclassified (1 source) Procedure not done; Translations: [Procedure and treatment not carried out, unspecified reason] 08-27-2023 Episodic Spondylosis; intervertebral disc disorders; other back problems (20 sources) Sacroiliac disorder; Translations: [Spondylosis without myelopathy or radiculopathy, sacral and sacrococcygeal region] Onset: 9 07-13-2018 Chronic Thyroid disorders (20 sources) Hypothyroidism; Translations: [Hypothyroidism, unspecified] Onset: 9 09-30-2018 Chronic Unclassified (1 source) Cough, unspecified; Translations: [Cough, unspecified] Onset: 5 Unclassified (2 sources) Elevation of levels of liver transaminase levels; Translations: [Elevation of levels of liver transaminase levels] Onset: 5 Past or Other Problems Problem Classification Problem Date Documented Date Episodic/Chronic Abdominal pain (1 source) Epigastric pain; Translations: [Epigastric pain] Onset: 08-03-2024 Episodic Acute and unspecified renal failure (1 source) [...] [Unspecified fall, initial encounter] Onset: 04-02-2024 Episodic Fluid and electrolyte disorders (20 sources) Hypokalemia; Translations: [Hypokalemia] Onset: 04-18-2007 Resolved: 12-20-2014 Episodic Fracture of upper limb (10 sources) [...] Translations: [Dysmenorrhea, unspecified] Resolved: 02-25-2009 02-25-2009 Chronic Nonspecific chest pain (1 source) Chest pain, unspecified; Translations: [Chest pain, unspecified] Onset: 07-11-2024 Episodic Nutritional deficiencies (20 sources) Cobalamin deficiency; Translations: [Deficiency of other specified B group vitamins] Onset: 08-15-2010 08-15-2010 Episodic Other bone disease and musculoskeletal deformities (10 sources) Nonunion of fracture; Translations: [Nonunion of fracture] Onset: 12-10-2010 Resolved: 01-31-2014 01-31-2014 Episodic Other connective tissue disease (1 source) Plantar fascial fibromatosis; Translations: [Plantar fasciitis] Onset: 03-24-2024 Episodic Other connective tissue disease (1 source) Pain in right foot; Translations: [Pain in right foot] Onset: 09-13-2024 Episodic Other connective tissue disease (2 sources) Rhabdomyolysis; Translations: [Rhabdomyolysis] Onset: 04-02-2024 Episodic Other endocrine disorders (12 sources) Hyperparathyroidism; [...] of cervical dysplasia] Onset: 07-14-2017 Episodic Other injuries and conditions due to external causes (1 source) Unspecified injury of left elbow, initial encounter; Translations: [Unspecified injury of left elbow, initial encounter] Onset: 07-11-2024 Episodic Other injuries and conditions due to external causes (1 source) Unspecified injury of muscle(s) and tendon(s) of the rotator cuff of left shoulder, initial encounter; Translations: [Unspecified injury of muscle(s) and tendon(s) of the rotator cuff of left shoulder, initial encounter] Onset: 07-11-2024 Episodic Other non-traumatic joint disorders (1 source) Pain in left shoulder; Translations: [Pain in left shoulder] Onset: 07-11-2024 Episodic Other nutritional; endocrine; and metabolic disorders (10 sources) Hypocalcemia; Translations: [Hypocalcemia] Onset: 12-19-2014 Resolved: 10-01-2016 03-03-2021 Chronic Other skin disorders (10 sources) Hirsutism; Translations: [Hirsutism] Onset: 06-06-2010 Resolved: 04-11-2014 04-11-2014 Episodic Pancreatic disorders (not diabetes) (20 sources) Mass of pancreas; Translations: [Other specified diseases of pancreas] Onset: 09-19-2014 10-01-2016 Episodic Residual codes; unclassified (1 source) Insomnia, unspecified; Translations: [Insomnia, unspecified] Onset: 07-17-2024 Episodic Residual codes; unclassified (1 source) Altered mental status, unspecified; Translations: [Altered mental status, unspecified] Onset: 05-31-2024 Episodic Septicemia (except in labor) (1 source) Sepsis, unspecified organism; Translations: [Sepsis, unspecified organism] Onset: 07-11-2024 Episodic Skin and subcutaneous tissue infections (10 [...] Test Name Value Interpretation Reference Range Facility MR/BMS.BPon 01-17-2025 MR/BMS.BP Normal [facility] Internal Medicine Office Vis iton 01-11-2025 Internal Medicine Office Visit Normal [facility] CPK Total, Creatine Kinaseon 12-22-2024 CPK TOTAL 108 U/L Normal 24-195 [facility] Comment on above: Performed By: #### L [id number], [id number] ####[facility] [address] [place], [place], [id number] Comprehensive Metabolic Prof ilon 12-22-2024 Albumin [Mass/Vol] 4.3 g/dL Normal 3.5-5.0 [facility] Comment on above: Performed By: #### L [id number], [id number] ####[facility] [address] [place], [address] Albumin/Globulin [Mass ratio] 1.1 {ratio} Normal 0.9-2.4 [facility] Comment on above: Performed By: #### L [id number], [id number] ####[facility] [address] [place], [address] ALK PHOS 137 U/L High 35-104 [facility] Comment on above: Performed By: #### L [id number], [id number] ####[facility] [address] [place], [address] ALT [Catalytic activity/Vol] 10 U/L Normal <=34 [facility] Comment on above: Performed By: #### L [id number], [id number] ####[facility] [address] [place], [address] AST [Catalytic activity/Vol] 23 U/L Normal <=31 [facility] Comment on above: Performed By: #### L [id number], [id number] ####[facility] [address] [place], [address] Bilirubin [Mass/Vol] 0.43 mg/dL Normal 0.00-1.30 [facility] Comment on above: Performed By: #### L [id number], [id number] ####[facility] [address] [place], [address] BUN/CRE 9.3 RATIO Low 10-20 [facility] Comment on above: Performed By: #### L [id number], [id number] ####[facility] [address] [place], [address] Calcium [Mass/Vol] 9.1 mg/dL Normal 7.6-11.0 [facility] Comment on above: Performed By: #### L [id number], [id number] ####[facility] [address] [place], [address] Chloride [Moles/Vol] 96 mmol/L Low 98-108 [facility] Comment on above: Performed By: #### L [id number], [id number] ####[facility] [address] [place], [address] CO2 [Moles/Vol] 24.7 mmol/L Normal 21.0-32.0 [facility] Comment on above: Performed By: #### L [id number], [id number] ####[facility] [address] [place], [address] Creatinine [Mass/Vol] 1.35 mg/dL High 0.70-1.20 [facility] Comment on above: Performed By: #### L [id number], [id number] ####[facility] [address] [place], [address] GAP 17 High 5-15 [facility] Comment on above: Performed By: #### L [id number], [id number] ####[facility] [address] [place], [address] GFR/1.73 sq M.predicted among non-blacks MDRD (S/P/Bld) [Vol rate/Area] 46 mL/min/{1.73_m2} Low >60 [facility] Comment on above: Result Comment: mL/m in/1.73m2 CKD-EPI Creatinine Equation (2020) Performed By: #### L [id number], [id number] ####[facility] [address] [place], [address] Globulin (S) [Mass/Vol] 3.8 g/dL Normal 2.2-4.2 [facility] Comment on above: Performed By: #### L [id number], [id number] ####[facility] [address] [place], [address] Glucose [Mass/Vol] 110 mg/dL High 70-99 [facility] Comment on above: Performed By: #### L [id number], [id number] ####[facility] [address] [place], [address] Potassium [Moles/Vol] 3.3 mmol/L Normal 3.3-5.1 [facility] Comment on above: Performed By: #### L [id number], [id number] ####[facility] [address] [place], [address] Sodium [Moles/Vol] 137 mmol/L Normal 133-145 [facility] Comment on above: Performed By: #### L [id number], [id number] ####[facility] [address] [place], [address] T PROT 8.1 g/dL Normal 5.9-8.4 [facility] Comment on above: Performed By: #### L [id number], [id number] ####[facility] [address] [place], [address] Urea nitrogen [Mass/Vol] 13 mg/dL Normal 4-19 [facility] Comment on above: Performed By: #### L [id number], [id number] ####[facility] [address] [place], [address] Endocrinology Visit Reporton 12-22-2024 Endocrinology Visit Report Normal [facility] CNOVon 12-11-2024 CNOV Office Visit (PODIWS ) THUY WHITE ([id number]) 1965 F Date Time Provider Department 12/11/24 1:30 PM ZLUMA SOL During your visit today, we recorded the following information about you: Cr Linares MA 12/11/2024 10:23 PM Signed AMB ROOMING INTAKE FLOWSHEET DATA Pain Pain Level: 6 Pain Location: Foot-Left Description: Aching Frequency: Intermittent Zulma Sol 12/11/2024 1:43 PM Signed We discussed your right foot pain and previous fracture: - Your right heel pain has resolved, but you have intermittent pain along the side of your left foot. This pain may be related to a non-healed fracture of your fifth metatarsal, as seen on your x-ray from March 24, 2024. The plate in your foot is also broken. - I performed a physical exam, which showed no pain with direct pressure on the lateral aspect of the fifth metatarsal. However, you experience intermittent pain when walking, particularly on the side of your foot. - I believe the shape of your foot (hindfoot deformity) is contributing to the slow healing of the fracture by placing stress on that area. We discussed your treatment options: - I will order a repeat x-ray of your right foot today to assess for any changes in the fracture or plate. Please complete this x-ray as soon as possible. - If the x-ray shows no changes and your pain remains minimal, you can continue to monitor the condition without further intervention. - If the x-ray shows worsening of the fracture or plate, or if your pain increases, we may need to consider surgical options, such as removing the plate, placing a new one, and using a bone graft to promote healing. However, I am concerned that the hindfoot deformity may continue to affect healing unless it is corrected. - I will refer you to one of our orthopedic colleagues to evaluate the hindfoot deformity and discuss potential corrective options. We discussed your plantar fasciitis: - Your plantar fasciitis has improved. Please continue wearing good supportive shoes, such as [employer]y, Hoka, Dumont, or Asics, and continue using the inserts we previously provided. Follow-Up: - Complete the x-ray of your right foot today. - I will review the x-ray results and contact you via MyChart or phone to discuss the next steps. - You may hear from me regarding a referral to an electrical system specialist for further evaluation of your hindfoot deformity. Please let me know if your symptoms worsen or if you have any questions. Zulma Sol 12/11/2024 10:23 PM Signed Subjective The patient is a 59-year-old female presenting for follow-up of right foot pain and plantar fasciitis. The patient was last seen on 03/24/2024 for right heel pain, at which time she was advised to use stretching, icing, and supportive shoes. She has been wearing Saucony insoles, which have provided relief for her plantar fasciitis. The right heel pain has resolved, but she continues to experience intermittent pain along the lateral aspect of the right foot, particularly with prolonged walking or standing and when the weather is wet. She also reports a sensation of pressure on the lateral side of the foot when standing, though this is not described as pain. A right foot x-ray on 03/24/2024 revealed a non-healed fracture of the fifth metatarsal with a broken plate. The patient recalls sustaining the fracture approximately 4 years ago, treated by Dr. Arriaga with surgical plate placement, prolonged boot use, and casting. She reports that healing was difficult and prolonged. She only recently received the x-ray results a couple of weeks ago. Musculoskeletal: (+) intermittent right lateral foot pain, (+) pressure right foot with standing, (-) heel pain Objective Last menstrual period 02/01/2007. - Cardiovascular: Dorsalis pedis and posterior tibial pulses palpable bilaterally; capillary refill <5 seconds; skin temperature warm proximally to distally; hair growth present on both feet. - Skin: No open sores noted on bilateral feet; skin appears well-hydrated bilaterally. - Musculoskeletal: - Left Foot: - No tenderness along the lateral aspect of the fifth metatarsal. - Strength: Plantar flexion, dorsiflexion, inversion, and eversion 5/5. Imaging: - (03/24/2024) Foot X-ray: Persistent nonunion of fifth metatarsal fracture; plate fixation with fractured plate and multiple screws. Tests AND Prior Procedures: - Prior ORIF of fifth metatarsal: Persistent nonunion; hardware failure with plate fracture. 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 Intermittent lateral foot pain (more content not included)... Normal [facility] XR FOOT 3V AP/LAT/OBL LTon 1 XR FOOT 3V AP/LAT/OBL LT * * *Final Report* * * DATE OF EXAM: Dec 11 2024 1:59PM [id number] - XR FOOT 3V AP/LAT/OBL LT / PROCEDURE REASON: multiple diagnoses * * * * Physician Interpretation * * * * EXAM(s): XR FOOT 3V AP/LAT/OBL LT..... HISTORY: 59 years old Clinical information: Skewfoot deformity, left Metatarsal fracture, pathologic, left, with nonunion, subsequent encounter Skewfoot deformity Metatarsal fracture, pathologic, left, with nonunion TECHNIQUE: Images: XR FOOT 3V AP/LAT/OBL LT Comparison: 03/24/2024. RESULT: Findings: Redemonstration of an ununited fracture through the base of the metatarsal of the left fifth toe transfixed with a metallic plate attached with 6 threaded metallic screws. The separation of the bone fragments at the fracture site is unchanged. Fracture in the fixation plate is also unchanged. No new fractures identified. Degenerative changes again noted as previously described. Soft tissue swelling over the dorsum of the foot.. 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, [address] Calcium [Mass/Vol] 9.7 mg/dL Normal 7.6-11.0 [facility] Comment on above: Performed By: #### L 500.2500 ####[facility] [address] [place], [address] Chloride [Moles/Vol] 102 mmol/L Normal 98-108 [facility] Comment on above: Performed By: #### L 500.2500 ####[facility] [address] [place], [address] CO2 [Moles/Vol] 22.8 mmol/L Normal 21.0-32.0 [facility] Comment on above: Performed By: #### L 500.2500 ####[facility] [address] [place], [address] Creatinine [Mass/Vol] 1.64 mg/dL High 0.70-1.20 [facility] Comment on above: Performed By: #### L 500.2500 ####[facility] [address] [place], [address] GAP 13 Normal 5-15 [facility] Comment on above: Performed By: #### L 500.2500 ####[facility] [address] [place], [address] GFR/1.73 sq M.predicted among non-blacks MDRD (S/P/Bld) [Vol rate/Area] 36 mL/min/{1.73_m2} Low >60 [facility] Comment on above: Result Comment: mL/m in/1.73m2 CKD-EPI Creatinine Equation (2020) Performed By: #### L 500.2500 ####[facility] [address] [place], [address] Glucose [Mass/Vol] 113 mg/dL High 70-99 [facility] Comment on above: Performed By: #### L 500.2500 ####[facility] [address] [place], [address] Potassium [Moles/Vol] 4.3 mmol/L Normal 3.3-5.1 [facility] Comment on above: Performed By: #### L 500.2500 ####[facility] [address] [place], [address] Sodium [Moles/Vol] 138 mmol/L Normal 133-145 [facility] Comment on above: Performed By: #### L 500.2500 ####[facility] [address] [place], [address] Urea nitrogen [Mass/Vol] 18 mg/dL Normal 4-19 [facility] Comment on above: Performed By: #### L 500.2500 ####[facility] [address] [place], [address] Basic Metabolic Profile (BMP )on 09-19-2024 BUN/CRE 12.2 RATIO Normal 10-20 [facility] Comment on above: Performed By: #### L 500.2500 ####[facility] [address] [place], [address] Calcium [Mass/Vol] 10.8 mg/dL Normal 7.6-11.0 [facility] Comment on above: Performed By: #### L 500.2500 ####[facility] [address] [place], [address] Chloride [Moles/Vol] 101 mmol/L Normal 98-108 [facility] Comment on above: Performed By: #### L 500.2500 ####[facility] [address] [place], [address] CO2 [Moles/Vol] 23.7 mmol/L Normal 21.0-32.0 [facility] Comment on above: Performed By: #### L 500.2500 ####[facility] [address] [place], [address] Creatinine [Mass/Vol] 1.38 mg/dL High 0.70-1.20 [facility] Comment on above: Performed By: #### L 500.2500 ####[facility] [address] [place], [address] GAP 14 Normal 5-15 [facility] Comment on above: Performed By: #### L 500.2500 ####[facility] [address] [place], [address] GFR/1.73 sq M.predicted among non-blacks MDRD (S/P/Bld) [Vol rate/Area] 44 mL/min/{1.73_m2} Low >60 [facility] Comment on above: Result Comment: mL/m in/1.73m2 CKD-EPI Creatinine Equation (2020) Performed By: #### L 500.2500 ####[facility] [address] [place], [address] Glucose [Mass/Vol] 106 mg/dL High 70-99 [facility] Comment on above: Performed By: #### L 500.2500 ####[facility] [address] [place], [address] Potassium [Moles/Vol] 3.8 mmol/L Normal 3.3-5.1 [facility] Comment on above: Performed By: #### L 500.2500 ####[facility] [address] [place], [address] Sodium [Moles/Vol] 138 mmol/L Normal 133-145 [facility] Comment on above: Performed By: #### L 500.2500 ####[facility] [address] [place], [address] Urea nitrogen [Mass/Vol] 17 mg/dL Normal 4-19 [facility] Comment on above: Performed By: #### L 500.2500 ####[facility] [address] [place], [address] Emergency Department Summary on 09-09-2024 Emergency Department Summary Normal [facility] Foot min 3 Viewson 5 Foot min 3 Views Normal [facility] Basic Metabolic Profile (BMP )on 09-04-2024 BUN/CRE 11.9 RATIO Normal 10-20 [facility] Comment on above: Performed By: #### L 500.2500 ####[facility] [address] [place], [address] Calcium [Mass/Vol] 11.3 mg/dL High 7.6-11.0 [facility] Comment on above: Performed By: #### L 500.2500 ####[facility] [address] [place], [address] Chloride [Moles/Vol] 100 mmol/L Normal 98-108 [facility] Comment on above: Performed By: #### L 500.2500 ####[facility] [address] [place], [address] CO2 [Moles/Vol] 27.7 mmol/L Normal 21.0-32.0 [facility] Comment on above: Performed By: #### L 500.2500 ####[facility] [address] [place], [address] Creatinine [Mass/Vol] 1.38 mg/dL High 0.70-1.20 [facility] Comment on above: Performed By: #### L 500.2500 ####[facility] [address] [place], [address] GAP 10 Normal 5-15 [facility] Comment on above: Performed By: #### L 500.2500 ####[facility] [address] [place], [address] GFR/1.73 sq M.predicted among non-blacks MDRD (S/P/Bld) [Vol rate/Area] 44 mL/min/{1.73_m2} Low >60 [facility] Comment on above: Result Comment: mL/m in/1.73m2 CKD-EPI Creatinine Equation (2020) Performed By: #### L 500.2500 ####[facility] [address] [place], [address] Glucose [Mass/Vol] 100 mg/dL High 70-99 [facility] Comment on above: Performed By: #### L 500.2500 ####[facility] [address] [place], [address] Potassium [Moles/Vol] 4.4 mmol/L Normal 3.3-5.1 [facility] Comment on above: Performed By: #### L 500.2500 ####[facility] [address] [place], [address] Sodium [Moles/Vol] 138 mmol/L Normal 133-145 [facility] Comment on above: Performed By: #### L 500.2500 ####[facility] [address] [place], [address] Urea nitrogen [Mass/Vol] 16 mg/dL Normal 4-19 [facility] Comment on above: Performed By: #### L 500.2500 ####[facility] [address] [place], [address] Comprehensive Metabolic Prof ilon 08-24-2024 Albumin [Mass/Vol] 4.0 g/dL Normal 3.5-5.0 [facility] Comment on above: Performed By: #### L 500.4050 ####[facility] [address] [place], [address] Albumin/Globulin [Mass ratio] 1.3 {ratio} Normal 0.9-2.4 [facility] Comment on above: Performed By: #### L 500.4050 ####[facility] [address] [place], [address] ALK PHOS 87 U/L Normal 35-104 [facility] Comment on above: Performed By: #### L 500.4050 ####[facility] [address] [place], [address] ALT [Catalytic activity/Vol] 8 U/L Normal <=34 [facility] Comment on above: Performed By: #### L 500.4050 ####[facility] [address] [place], [address] AST [Catalytic activity/Vol] 16 U/L Normal <=31 [facility] Comment on above: Performed By: #### L 500.4050 ####[facility] [address] [place], [address] Bilirubin [Mass/Vol] 0.48 mg/dL Normal 0.00-1.30 [facility] Comment on above: Performed By: #### L 500.4050 ####[facility] [address] [place], [address] BUN/CRE 14.1 RATIO Normal 10-20 [facility] Comment on above: Performed By: #### L 500.4050 ####[facility] [address] [place], [address] Calcium [Mass/Vol] 10.1 mg/dL Normal 7.6-11.0 [facility] Comment on above: Performed By: #### L 500.4050 ####[facility] [address] [place], [address] Chloride [Moles/Vol] 103 mmol/L Normal 98-108 [facility] Comment on above: Performed By: #### L 500.4050 ####[facility] [address] [place], [address] CO2 [Moles/Vol] 24.3 mmol/L Normal 21.0-32.0 [facility] Comment on above: Performed By: #### L 500.4050 ####[facility] [address] [place], [address] Creatinine [Mass/Vol] 1.37 mg/dL High 0.70-1.20 [facility] Comment on above: Performed By: #### L 500.4050 ####[facility] [address] [place], [address] GAP 11 Normal 5-15 [facility] Comment on above: Performed By: #### L 500.4050 ####[facility] [address] [place], [address] GFR/1.73 sq M.predicted among non-blacks MDRD (S/P/Bld) [Vol rate/Area] 45 mL/min/{1.73_m2} Low >60 [facility] Comment on above: Result Comment: mL/m in/1.73m2 CKD-EPI Creatinine Equation (2020) Performed By: #### L 500.4050 ####[facility] [address] [place], [address] Globulin (S) [Mass/Vol] 3.0 g/dL Normal 2.2-4.2 [facility] Comment on above: Performed By: #### L 500.4050 ####[facility] [address] [place], [address] Glucose [Mass/Vol] 113 mg/dL High 70-99 [facility] Comment on above: Performed By: #### L 500.4050 ####[facility] [address] [place], [address] Potassium [Moles/Vol] 4.3 mmol/L Normal 3.3-5.1 [facility] Comment on above: Performed By: #### L 500.4050 ####[facility] [address] [place], [address] Sodium [Moles/Vol] 139 mmol/L Normal 133-145 [facility] Comment on above: Performed By: #### L 500.4050 ####[facility] [address] [place], [address] T PROT 7.0 g/dL Normal 5.9-8.4 [facility] Comment on above: Performed By: #### L 500.4050 ####[facility] [address] [place], [address] Urea nitrogen [Mass/Vol] 19 mg/dL Normal 4-19 [facility] Comment on above: Performed By: #### L 500.4050 ####[facility] [address] [place], [address] Comprehensive Metabolic Prof mdon 08-16-2024 Albumin [Mass/Vol] 3.9 g/dL Normal 3.5-5.0 [facility] Comment on above: Performed By: #### L 500.4050 ####[facility] [address] [place], [address] Albumin/Globulin [Mass ratio] 1.1 {ratio} Normal 0.9-2.4 [facility] Comment on above: Performed By: #### L 500.4050 ####[facility] [address] [place], [address] ALK PHOS 98 U/L Normal 35-104 [facility] Comment on above: Performed By: #### L 500.4050 ####[facility] [address] [place], [address] ALT [Catalytic activity/Vol] 14 U/L Normal <=34 [facility] Comment on above: Performed By: #### L 500.4050 ####[facility] [address] [place], [address] AST [Catalytic activity/Vol] 18 U/L Normal <=31 [facility] Comment on above: Performed By: #### L 500.4050 ####[facility] [address] [place], [address] Bilirubin [Mass/Vol] 0.30 mg/dL Normal 0.00-1.30 [facility] Comment on above: Performed By: #### L 500.4050 ####[facility] [address] [place], [address] BUN/CRE 11.9 RATIO Normal 10-20 [facility] Comment on above: Performed By: #### L 500.4050 ####[facility] [address] [place], [address] Calcium [Mass/Vol] 10.5 mg/dL Normal 7.6-11.0 [facility] Comment on above: Performed By: #### L 500.4050 ####[facility] [address] [place], [address] Chloride [Moles/Vol] 103 mmol/L Normal 98-108 [facility] Comment on above: Performed By: #### L 500.4050 ####[facility] [address] [place], [address] CO2 [Moles/Vol] 24.0 mmol/L Normal 21.0-32.0 [facility] Comment on above: Performed By: #### L 500.4050 ####[facility] [address] [place], [address] Creatinine [Mass/Vol] 1.49 mg/dL High 0.70-1.20 [facility] Comment on above: Performed By: #### L 500.4050 ####[facility] [address] [place], [address] GAP 12 Normal 5-15 [facility] Comment on above: Performed By: #### L 500.4050 ####[facility] [address] [place], [address] GFR/1.73 sq M.predicted among non-blacks MDRD (S/P/Bld) [Vol rate/Area] 40 mL/min/{1.73_m2} Low >60 [facility] Comment on above: Result Comment: mL/m in/1.73m2 CKD-EPI Creatinine Equation (2020) Performed By: #### L 500.4050 ####[facility] [address] [place], [address] Globulin (S) [Mass/Vol] 3.4 g/dL Normal 2.2-4.2 [facility] Comment on above: Performed By: #### L 500.4050 ####[facility] [address] [place], [address] Glucose [Mass/Vol] 93 mg/dL Normal 70-99 [facility] Comment on above: Performed By: #### L 500.4050 ####[facility] [address] [place], [address] Potassium [Moles/Vol] 4.4 mmol/L Normal 3.3-5.1 [facility] Comment on above: Performed By: #### L 500.4050 ####[facility] [address] [place], [address] Sodium [Moles/Vol] 139 mmol/L Normal 133-145 [facility] Comment on above: Performed By: #### L 500.4050 ####[facility] [address] [place], [address] T PROT 7.3 g/dL Normal 5.9-8.4 [facility] Comment on above: Performed By: #### L 500.4050 ####[facility] [address] [place], [address] Urea nitrogen [Mass/Vol] 18 mg/dL Normal 4-19 [facility] Comment on above: Performed By: #### L 500.4050 ####[facility] [address] [place], [address] Basic Metabolic Profile (BMP )on 08-07-2024 BUN/CRE 12.7 RATIO Normal 10-20 [facility] Comment on above: Performed By: #### L 506.1001, L500.2500 ####[facility] [address] [place], [address] Calcium [Mass/Vol] 8.3 mg/dL Normal 7.6-11.0 [facility] Comment on above: Performed By: #### L 506.1001, L500.2500 ####[facility] [address] [place], [address] Chloride [Moles/Vol] 99 mmol/L Normal 98-108 [facility] Comment on above: Performed By: #### L 506.1001, L500.2500 ####[facility] [address] [place], [address] CO2 [Moles/Vol] 26.5 mmol/L Normal 21.0-32.0 [facility] Comment on above: Performed By: #### L 506.1001, L500.2500 ####[facility] [address] [place], [address] Creatinine [Mass/Vol] 1.65 mg/dL High 0.70-1.20 [facility] Comment on above: Performed By: #### L 506.1001, L500.2500 ####[facility] [address] [place], [address] GAP 14 Normal 5-15 [facility] Comment on above: Performed By: #### L 506.1001, L500.2500 ####[facility] [address] [place], [address] GFR/1.73 sq M.predicted among non-blacks MDRD (S/P/Bld) [Vol rate/Area] 36 mL/min/{1.73_m2} Low >60 [facility] Comment on above: Result Comment: mL/m in/1.73m2 CKD-EPI Creatinine Equation (2020) Performed By: #### L 506.1001, L500.2500 ####[facility] [address] [place], [address] Glucose [Mass/Vol] 101 mg/dL High 70-99 [facility] Comment on above: Performed By: #### L 506.1001, L500.2500 ####[facility] [address] [place], [address] Potassium [Moles/Vol] 3.7 mmol/L Normal 3.3-5.1 [facility] Comment on above: Performed By: #### L 506.1001, L500.2500 ####[facility] [address] [place], [address] Sodium [Moles/Vol] 140 mmol/L Normal 133-145 [facility] Comment on above: Performed By: #### L 506.1001, L500.2500 ####[facility] [address] [place], [address] Urea nitrogen [Mass/Vol] 21 mg/dL High 4-19 [facility] Comment on above: Performed By: #### L 506.1001, L500.2500 ####[facility] [address] [place], [address] Vitamin D,25 Hydroxyon 08-07 Vitamin D 25-OH 28.3 ng/mL Low 30-100 [facility] Comment on above: Result Comment: Carol min D StatusDeficiency: <20 ng/mL (50nmol/L)Insufficiency: 20-30 ng/mL (50-75 nmol/L)Sufficiency: 30-100 ng/mL (75-250 nmol/L)Toxicity: >100 ng/mL (>250 nmol/L) Performed By: #### L 506.1001, L500.2500 ####[facility] [address] [place], [address] Basic Metabolic Profile (BMP )on 08-01-2024 BUN/CRE 9.2 RATIO Low 10-20 [facility] Comment on above: Performed By: #### L 506.1001, L500.2500 ####[facility] [address] [place], [address] Calcium [Mass/Vol] 10.4 mg/dL Normal 7.6-11.0 [facility] Comment on above: Performed By: #### L 506.1001, L500.2500 ####[facility] [address] [place], [address] Chloride [Moles/Vol] 100 mmol/L Normal 98-108 [facility] Comment on above: Performed By: #### L 506.1001, L500.2500 ####[facility] [address] [place], [address] CO2 [Moles/Vol] 24.5 mmol/L Normal 21.0-32.0 [facility] Comment on above: Performed By: #### L 506.1001, L500.2500 ####[facility] [address] [place], [address] Creatinine [Mass/Vol] 1.86 mg/dL High 0.70-1.20 [facility] Comment on above: Performed By: #### L 506.1001, L500.2500 ####[facility] [address] [place], [address] GAP 14 Normal 5-15 [facility] Comment on above: Performed By: #### L 506.1001, L500.2500 ####[facility] [address] [place], [address] GFR/1.73 sq M.predicted among non-blacks MDRD (S/P/Bld) [Vol rate/Area] 31 mL/min/{1.73_m2} Low >60 [facility] Comment on above: Result Comment: mL/m in/1.73m2 CKD-EPI Creatinine Equation (2020) Performed By: #### L 506.1001, L500.2500 ####[facility] [address] [place], [address] Glucose [Mass/Vol] 109 mg/dL High 70-99 [facility] Comment on above: Performed By: #### L 506.1001, L500.2500 ####[facility] [address] [place], [address] Potassium [Moles/Vol] 3.3 mmol/L Normal 3.3-5.1 [facility] Comment on above: Performed By: #### L 506.1001, L500.2500 ####[facility] [address] [place], [address] Sodium [Moles/Vol] 139 mmol/L Normal 133-145 [facility] Comment on above: Performed By: #### L 506.1001, L500.2500 ####[facility] [address] [place], [address] Urea nitrogen [Mass/Vol] 17 mg/dL Normal 4-19 [facility] Comment on above: Performed By: #### L 506.1001, L500.2500 ####[facility] [address] [place], [address] Vitamin D,25 Hydroxyon 08-01 Vitamin D 25-OH 33.3 ng/mL Normal 30-100 [facility] Comment on above: Result Comment: Carol min D StatusDeficiency: <20 ng/mL (50nmol/L)Insufficiency: 20-30 ng/mL (50-75 nmol/L)Sufficiency: 30-100 ng/mL (75-250 nmol/L)Toxicity: >100 ng/mL (>250 nmol/L) Performed By: #### L 506.1001, L500.2500 ####[facility] [address] [place], [address] Emergency Department Summary on 07-30-2024 Emergency Department Summary Normal [facility] Basic Metabolic Profile (BMP )on 07-28-2024 BUN/CRE 12.1 RATIO Normal 10-20 [facility] Comment on above: Order Comment: PLEAS E SEND RESULTS TO [facility]A CARTER ALSO Performed By: #### L 509.1000, L500.2500 ####[facility] [address] [place], [address] Calcium [Mass/Vol] 11.8 mg/dL High 7.6-11.0 [facility] Comment on above: Order Comment: PLEAS E SEND RESULTS TO LESA CARTER ALSO Performed By: #### L 509.1000, L500.2500 ####[facility] [address] [place], [address] Chloride [Moles/Vol] 99 mmol/L Normal 98-108 [facility] Comment on above: Order Comment: PLEAS E SEND RESULTS TO LESA CARTER ALSO Performed By: #### L 509.1000, L500.2500 ####[facility] [address] [place], [address] CO2 [Moles/Vol] 26.8 mmol/L Normal 21.0-32.0 [facility] Comment on above: Order Comment: PLEAS E SEND RESULTS TO LESA CARTER ALSO Performed By: #### L 509.1000, L500.2500 ####[facility] [address] [place], [address] Creatinine [Mass/Vol] 2.00 mg/dL High 0.70-1.20 [facility] Comment on above: Order Comment: PLEAS E SEND RESULTS TO LESA CARTER ALSO Performed By: #### L 509.1000, L500.2500 ####[facility] [address] [place], [address] GAP 13 Normal 5-15 [facility] Comment on above: Order Comment: PLEAS E SEND RESULTS TO LESA CARTER ALSO Performed By: #### L 509.1000, L500.2500 ####[facility] [address] [place], [address] GFR/1.73 sq M.predicted among non-blacks MDRD (S/P/Bld) [Vol rate/Area] 28 mL/min/{1.73_m2} Low >60 [facility] Comment on above: Order Comment: PLEAS E SEND RESULTS TO L[facility]A CARTER ALSO Result Comment: mL/m in/1.73m2 CKD-EPI Creatinine Equation (2020) Performed By: #### L 509.1000, L500.2500 ####[facility] [address] [place], [address] Glucose [Mass/Vol] 135 mg/dL High 70-99 [facility] Comment on above: Order Comment: PLEAS E SEND RESULTS TO LESA CARTER ALSO Performed By: #### L 509.1000, L500.2500 ####[facility] [address] [place], [address] Potassium [Moles/Vol] 3.7 mmol/L Normal 3.3-5.1 [facility] Comment on above: Order Comment: PLEAS E SEND RESULTS TO LESA CARTER ALSO Performed By: #### L 509.1000, L500.2500 ####[facility] [address] [place], [address] Sodium [Moles/Vol] 139 mmol/L Normal 133-145 [facility] Comment on above: Order Comment: PLEAS E SEND RESULTS TO LESA CARTER ALSO Performed By: #### L 509.1000, L500.2500 ####[facility] [address] [place], [address] Urea nitrogen [Mass/Vol] 24 mg/dL High 4-19 [facility] Comment on above: Order Comment: PLEAS E SEND RESULTS TO LESA CARTER ALSO Performed By: #### L 509.1000, L500.2500 ####[facility] [address] [place], [address] PTHINon 07-28-2024 PTH 4 pg/mL Low 11-61 [facility] Comment on above: Order Comment: PLEAS E SEND RESULTS TO L[facility]A CARTER ALSO Performed By: #### L 509.1000, L500.2500 ####[facility] [address] [place], [address] MR/BMS.BPon 07-17-2024 MR/BMS.BP Normal [facility] Endocrinology Visit Reporton 06-05-2024 Endocrinology Visit Report Normal [facility] L3410.9998on 05-26-2024 [facility] Misc. COMMENT Normal . [facility] Comment on above: Order Comment: GREEN /PLASMA/ PROTECT FROM LIGHT/[id number] C Result Comment: Test Ordered: [id number] Vitamin CTest(s) 360705-[id number] Cwas developed and its performance characteristicsdetermined by [facility]. It has not been cleared or approvedby the Food and Drug Administration.Vitamin C 0.3 [L ] mg/dL Reference Range: 0.4-2.0Vitamin C deficiency is generally defined as plasmaconcentrations less than 0.2 mg/dL and levels between0.2 and 0.4 mg/dL are considered low.Performed at: [address] [id number] Director: Devan Valero MD, Phone: [phone] at: [address] [id number] Director: Luke Weber PhD, Phone: [phone] Performed By: #### L 3410.9998 ####[facility] [address] [place], [address] Basic Metabolic Profile (BMP )on 05-23-2024 BUN Normal 4-19 [facility] Comment on above: Result Comment: CMP ORDERED BY DR. MOTTA Performed By: #### L 500.2500 ####[facility] [address] [place], [address] BUN/CRE Normal 10-20 [facility] Comment on above: Result Comment: CMP ORDERED BY DR. MOTTA Performed By: #### L 500.2500 ####[facility] [address] [place], [address] Calcium Normal 7.6-11.0 [facility] Comment on above: Result Comment: CMP ORDERED BY DR. MOTTA Performed By: #### L 500.2500 ####[facility] [address] [place], [address] CL Normal 98-108 [facility] Comment on above: Result Comment: CMP ORDERED BY DR. MOTTA Performed By: #### L 500.2500 ####[facility] [address] [place], [address] CO2 Normal 21.0-32.0 [facility] Comment on above: Result Comment: CMP ORDERED BY DR. MOTTA Performed By: #### L 500.2500 ####[facility] [address] [place], [address] CREAT,SERUM Normal 0.70-1.20 [facility] Comment on above: Result Comment: CMP ORDERED BY DR. MOTTA Performed By: #### L 500.2500 ####[facility] [address] [place], [address] eGFR Normal >60 [facility] Comment on above: Result Comment: CMP ORDERED BY DR. MOTTA Performed By: #### L 500.2500 ####[facility] [address] [place], [address] GAP Normal 5-15 [facility] Comment on above: Result Comment: CMP ORDERED BY DR. MOTTA Performed By: #### L 500.2500 ####[facility] [address] [place], [address] GLU Normal 70-99 [facility] Comment on above: Result Comment: CMP ORDERED BY DR. MOTTA Performed By: #### L 500.2500 ####[facility] [address] [place], [address] Potassium Normal 3.3-5.1 [facility] Comment on above: Result Comment: CMP ORDERED BY DR. MOTTA Performed By: #### L 500.2500 ####[facility] [address] [place], [address] Basic Metabolic Profile (BMP) Normal 133-145 [facility] Comment on above: Result Comment: CMP ORDERED BY DR. MOTTA Performed By: #### L 500.2500 ####[facility] [address] [place], [address] Comprehensive Metabolic Prof [facility] 05-23-2024 Albumin [Mass/Vol] 4.0 g/dL Normal 3.5-5.0 [facility] Comment on above: Performed By: #### L 500.4050 ####[facility] [address] [place], [address] Albumin/Globulin [Mass ratio] 1.1 {ratio} Normal 0.9-2.4 [facility] Comment on above: Performed By: #### L 500.4050 ####[facility] [address] [place], [address] ALK PHOS 129 U/L High 35-104 [facility] Comment on above: Performed By: #### L 500.4050 ####[facility] [address] [place], [address] ALT [Catalytic activity/Vol] 22 U/L Normal <=34 [facility] Comment on above: Performed By: #### L 500.4050 ####[facility] [address] [place], [address] AST [Catalytic activity/Vol] 24 U/L Normal <=31 [facility] Comment on above: Performed By: #### L 500.4050 ####[facility] [address] [place], [address] Bilirubin [Mass/Vol] 0.37 mg/dL Normal 0.00-1.30 [facility] Comment on above: Performed By: #### L 500.4050 ####[facility] [address] [place], [address] BUN/CRE 11.9 RATIO Normal 10-20 [facility] Comment on above: Performed By: #### L 500.4050 ####[facility] [address] [place], [address] Calcium [Mass/Vol] 9.1 mg/dL Normal 7.6-11.0 [facility] Comment on above: Performed By: #### L 500.4050 ####[facility] [address] [place], [address] Chloride [Moles/Vol] 102 mmol/L Normal 98-108 [facility] Comment on above: Performed By: #### L 500.4050 ####[facility] [address] [place], [address] CO2 [Moles/Vol] 24.9 mmol/L Normal 21.0-32.0 [facility] Comment on above: Performed By: #### L 500.4050 ####[facility] [address] [place], [address] Creatinine [Mass/Vol] 1.61 mg/dL High 0.70-1.20 [facility] Comment on above: Performed By: #### L 500.4050 ####[facility] [address] [place], [address] GAP 14 Normal 5-15 [facility] Comment on above: Performed By: #### L 500.4050 ####[facility] [address] [place], [address] GFR/1.73 sq M.predicted among non-blacks MDRD (S/P/Bld) [Vol rate/Area] 37 mL/min/{1.73_m2} Low >60 [facility] Comment on above: Result Comment: mL/m in/1.73m2 CKD-EPI Creatinine Equation (2020) Performed By: #### L 500.4050 ####[facility] [address] [place], [address] Globulin (S) [Mass/Vol] 3.5 g/dL Normal 2.2-4.2 [facility] Comment on above: Performed By: #### L 500.4050 ####[facility] [address] [place], [address] Glucose [Mass/Vol] 82 mg/dL Normal 70-99 [facility] Comment on above: Performed By: #### L 500.4050 ####[facility] [address] [place], [address] Potassium [Moles/Vol] 4.5 mmol/L Normal 3.3-5.1 [facility] Comment on above: Performed By: #### L 500.4050 ####[facility] [address] [place], [address] Sodium [Moles/Vol] 140 mmol/L Normal 133-145 [facility] Comment on above: Performed By: #### L 500.4050 ####[facility] [address] [place], [address] T PROT 7.5 g/dL Normal 5.9-8.4 [facility] Comment on above: Performed By: #### L 500.4050 ####[facility] [address] [place], [address] Urea nitrogen [Mass/Vol] 19 mg/dL Normal 4-19 [facility] Comment on above: Performed By: #### L 500.4050 ####[facility] [address] [place], [address] Internal Medicine Office Vis iton 05-22-2024 Internal Medicine Office Visit Normal [facility] Vitamin D 1,25-Dihydroxyon 0 05-19-2024 VIT D 1,25 DIHY 40.2 pg/mL Normal 24.8-81.5 [facility] Comment on above: Result Comment: Perf ormed at: [facility] - [facility] [address] [id number] Director: Devan Valero MD, Phone: [phone] Performed By: #### L 330.3396 ####[facility] [address] [place], [address] Basic Metabolic Profile (BMP )on 05-18-2024 BUN/CRE 7.6 RATIO Low 10-20 [facility] Comment on above: Performed By: #### L 100.0100, L500.2500 ####[facility] [address] [place], [address] Calcium [Mass/Vol] 10.4 mg/dL Normal 7.6-11.0 [facility] Comment on above: Performed By: #### L 100.0100, L500.2500 ####[facility] [address] [place], [address] Chloride [Moles/Vol] 105 mmol/L Normal 98-108 [facility] Comment on above: Performed By: #### L 100.0100, L500.2500 ####[facility] [address] [place], [address] CO2 [Moles/Vol] 25.3 mmol/L Normal 21.0-32.0 [facility] Comment on above: Performed By: #### L 100.0100, L500.2500 ####[facility] [address] [place], [address] Creatinine [Mass/Vol] 1.60 mg/dL High 0.70-1.20 [facility] Comment on above: Performed By: #### L 100.0100, L500.2500 ####[facility] [address] [place], [address] ECRCL 52.86 ml/min Normal 50-250 [facility] Comment on above: Performed By: #### L 100.0100, L500.2500 ####[facility] [address] [place], [address] GAP 10 Normal 5-15 [facility] Comment on above: Performed By: #### L 100.0100, L500.2500 ####[facility] [address] [place], [address] GFR/1.73 sq M.predicted among non-blacks MDRD (S/P/Bld) [Vol rate/Area] 37 mL/min/{1.73_m2} Low >60 [facility] Comment on above: Result Comment: mL/m in/1.73m2 CKD-EPI Creatinine Equation (2020) Performed By: #### L 100.0100, L500.2500 ####[facility] [address] [place], [address] Glucose [Mass/Vol] 82 mg/dL Normal 70-99 [facility] Comment on above: Performed By: #### L 100.0100, L500.2500 ####[facility] [address] [place], [address] Potassium [Moles/Vol] 3.3 mmol/L Normal 3.3-5.1 [facility] Comment on above: Performed By: #### L 100.0100, L500.2500 ####[facility] [address] [place], [address] Sodium [Moles/Vol] 140 mmol/L Normal 133-145 [facility] Comment on above: Performed By: #### L 100.0100, L500.2500 ####[facility] [address] [place], [address] Urea nitrogen [Mass/Vol] 12 mg/dL Normal 4-19 [facility] Comment on above: Performed By: #### L 100.0100, L500.2500 ####[facility] [address] [place], [address] CBC W/Diff, Automatedon -03 10-2024 Absolute Lymph 3.00 X10 3/uL Normal 0.83-4.51 [facility] Comment on above: Performed By: #### L 100.0100, L500.2500 ####[facility] [address] [place], [address] Absolute Neut 2.1 X10 3/uL Normal 2.0-7.7 [facility] Comment on above: Performed By: #### L 100.0100, L500.2500 ####[facility] [address] [place], [address] Basophils/100 WBC (Bld) 1.0 % Normal 0-1 [facility] Comment on above: Performed By: #### L 100.0100, L500.2500 ####[facility] [address] [place], [address] Eosinophils/100 WBC (Bld) 7.5 % High 0-5 [facility] Comment on above: Performed By: #### L 100.0100, L500.2500 ####[facility] [address] [place], [address] Erythrocyte distribution width (RBC) [Ratio] 19.4 % High 11.6-14.6 [facility] Comment on above: Performed By: #### L 100.0100, L500.2500 ####[facility] [address] [place], [address] Hematocrit (Bld) [Volume fraction] 34.2 % Low 37-47 [facility] Comment on above: Performed By: #### L 100.0100, L500.2500 ####[facility] [address] [place], [address] Hemoglobin (Bld) [Mass/Vol] 10.7 g/dL Low 12.0-15.0 [facility] Comment on above: Performed By: #### L 100.0100, L500.2500 ####[facility] [address] [place], [address] IG% 0.200 Normal 0.0-0.9 [facility] Comment on above: Result Comment: IG% - Immature Granulocytes (promyelocytes, myelocytes andmetamyelocytes) > 1% indicates that a LEFT SHIFT is Present. Performed By: #### L 100.0100, L500.2500 ####[facility] [address] [place], [address] Lymphocytes/100 WBC (Bld) 48.0 % High 19-41 [facility] Comment on above: Performed By: #### L 100.0100, L500.2500 ####[facility] [address] [place], [address] MCH (RBC) [Entitic mass] 24.3 pg Low 27.0-32.0 [facility] Comment on above: Performed By: #### L 100.0100, L500.2500 ####[facility] [address] [place], [address] MCHC (RBC) [Mass/Vol] 31.3 g/dL Low 32-36 [facility] Comment on above: Performed By: #### L 100.0100, L500.2500 ####[facility] [address] [place], [address] MCV (RBC) [Entitic vol] 77.7 fL Low 81-99 [facility] Comment on above: Performed By: #### L 100.0100, L500.2500 ####[facility] [address] [place], [address] Monocytes/100 WBC (Bld) 9.9 % Normal 0-10 [facility] Comment on above: Performed By: #### L 100.0100, L500.2500 ####[facility] [address] [place], [address] Neutrophils/100 WBC (Bld) 33.4 % Low 47-70 [facility] Comment on above: Performed By: #### L 100.0100, L500.2500 ####[facility] [address] [place], [address] Nucleated RBC (Bld) [#/Vol] 0 10*3/uL Normal 0-5 [facility] Comment on above: Performed By: #### L 100.0100, L500.2500 ####[facility] [address] [place], [address] Platelet mean volume (Bld) [Entitic vol] 11.0 fL Normal 6.2-12.0 [facility] Comment on above: Performed By: #### L 100.0100, L500.2500 ####[facility] [address] [place], [address] Platelets (Bld) [#/Vol] 320 10*3/uL Normal 150-450 [facility] Comment on above: Performed By: #### L 100.0100, L500.2500 ####[facility] [address] [place], [address] RBC (Bld) [#/Vol] 4.40 10*6/uL Normal 4.2-5.4 [facility] Comment on above: Performed By: #### L 100.0100, L500.2500 ####[facility] [address] [place], [address] RDW SD 55.1 fl High 35.1-43.9 [facility] Comment on above: Performed By: #### L 100.0100, L500.2500 ####[facility] [address] [place], [address] WBC (Bld) [#/Vol] 6.3 10*3/uL Normal 4.4-11.0 [facility] Comment on above: Performed By: #### L 100.0100, L500.2500 ####[facility] [address] [place], [address] Discharge Instructionon 05-06 Discharge Instruction Normal [facility] CBC W/Diff, Automatedon 05-06 Absolute Lymph 2.63 X10 3/uL Normal 0.83-4.51 [facility] Comment on above: Performed By: #### L 100.0100, L501.9520, L501.2300, L500.4050, L501.5200 ####[facility] [address] [place], [address] Absolute Neut 2.1 X10 3/uL Normal 2.0-7.7 [facility] Comment on above: Performed By: #### L 100.0100, L501.9520, L501.2300, L500.4050, L501.5200 ####[facility] [address] [place], [address] Basophils/100 WBC (Bld) 0.8 % Normal 0-1 [facility] Comment on above: Performed By: #### L 100.0100, L501.9520, L501.2300, L500.4050, L501.5200 ####[facility] [address] [place], [address] Eosinophils/100 WBC (Bld) 9.0 % High 0-5 [facility] Comment on above: Performed By: #### L 100.0100, L501.9520, L501.2300, L500.4050, L501.5200 ####[facility] [address] [place], [address] Erythrocyte distribution width (RBC) [Ratio] 19.1 % High 11.6-14.6 [facility] Comment on above: Performed By: #### L 100.0100, L501.9520, L501.2300, L500.4050, L501.5200 ####[facility] [address] [place], [address] Hematocrit (Bld) [Volume fraction] 33.7 % Low 37-47 [facility] Comment on above: Performed By: #### L 100.0100, L501.9520, L501.2300, L500.4050, L501.5200 ####[facility] [address] [place], [address] Hemoglobin (Bld) [Mass/Vol] 10.6 g/dL Low 12.0-15.0 [facility] Comment on above: Performed By: #### L 100.0100, L501.9520, L501.2300, L500.4050, L501.5200 ####[facility] [address] [place], [address] IG% 0.200 Normal 0.0-0.9 [facility] Comment on above: Result Comment: IG% - Immature Granulocytes (promyelocytes, myelocytes andmetamyelocytes) > 1% indicates that a LEFT SHIFT is Present. Performed By: #### L 100.0100, L501.9520, L501.2300, L500.4050, L501.5200 ####[facility] [address] [place], [address] Lymphocytes/100 WBC (Bld) 44.5 % High 19-41 [facility] Comment on above: Performed By: #### L 100.0100, L501.9520, L501.2300, L500.4050, L501.5200 ####[facility] [address] [place], [address] MCH (RBC) [Entitic mass] 24.3 pg Low 27.0-32.0 [facility] Comment on above: Performed By: #### L 100.0100, L501.9520, L501.2300, L500.4050, L501.5200 ####[facility] [address] [place], [address] MCHC (RBC) [Mass/Vol] 31.5 g/dL Low 32-36 [facility] Comment on above: Performed By: #### L 100.0100, L501.9520, L501.2300, L500.4050, L501.5200 ####[facility] [address] [place], [address] MCV (RBC) [Entitic vol] 77.3 fL Low 81-99 [facility] Comment on above: Performed By: #### L 100.0100, L501.9520, L501.2300, L500.4050, L501.5200 ####[facility] [address] [place], [address] Monocytes/100 WBC (Bld) 10.3 % High 0-10 [facility] Comment on above: Performed By: #### L 100.0100, L501.9520, L501.2300, L500.4050, L501.5200 ####[facility] [address] [place], [address] Neutrophils/100 WBC (Bld) 35.2 % Low 47-70 [facility] Comment on above: Performed By: #### L 100.0100, L501.9520, L501.2300, L500.4050, L501.5200 ####[facility] [address] [place], [address] Nucleated RBC (Bld) [#/Vol] 0 10*3/uL Normal 0-5 [facility] Comment on above: Performed By: #### L 100.0100, L501.9520, L501.2300, L500.4050, L501.5200 ####[facility] [address] [place], [address] Platelet mean volume (Bld) [Entitic vol] 11.0 fL Normal 6.2-12.0 [facility] Comment on above: Performed By: #### L 100.0100, L501.9520, L501.2300, L500.4050, L501.5200 ####[facility] [address] [place], [address] Platelets (Bld) [#/Vol] 358 10*3/uL Normal 150-450 [facility] Comment on above: Performed By: #### L 100.0100, L501.9520, L501.2300, L500.4050, L501.5200 ####[facility] [address] [place], [address] RBC (Bld) [#/Vol] 4.36 10*6/uL Normal 4.2-5.4 [facility] Comment on above: Performed By: #### L 100.0100, L501.9520, L501.2300, L500.4050, L501.5200 ####[facility] [address] [place], [address] RDW SD 53.2 fl High 35.1-43.9 [facility] Comment on above: Performed By: #### L 100.0100, L501.9520, L501.2300, L500.4050, L501.5200 ####[facility] [address] [place], [address] WBC (Bld) [#/Vol] 5.9 10*3/uL Normal 4.4-11.0 [facility] Comment on above: Performed By: #### L 100.0100, L501.9520, L501.2300, L500.4050, L501.5200 ####[facility] [address] [place], [address] Comprehensive Metabolic Prof [facility] 05-17-2024 Albumin [Mass/Vol] 3.0 g/dL Low 3.5-5.0 [facility] Comment on above: Performed By: #### L 100.0100, L501.9520, L501.2300, L500.4050, L501.5200 ####[facility] [address] [place], [address] Albumin/Globulin [Mass ratio] 1.2 {ratio} Normal 0.9-2.4 [facility] Comment on above: Performed By: #### L 100.0100, L501.9520, L501.2300, L500.4050, L501.5200 ####[facility] [address] [place], [address] ALK PHOS 145 U/L High 35-104 [facility] Comment on above: Performed By: #### L 100.0100, L501.9520, L501.2300, L500.4050, L501.5200 ####[facility] [address] [place], [address] ALT [Catalytic activity/Vol] 45 U/L High <=34 [facility] Comment on above: Performed By: #### L 100.0100, L501.9520, L501.2300, L500.4050, L501.5200 ####[facility] [address] [place], [address] AST [Catalytic activity/Vol] 41 U/L High <=31 [facility] Comment on above: Performed By: #### L 100.0100, L501.9520, L501.2300, L500.4050, L501.5200 ####[facility] [address] [place], [address] Bilirubin [Mass/Vol] 0.39 mg/dL Normal 0.00-1.30 [facility] Comment on above: Performed By: #### L 100.0100, L501.9520, L501.2300, L500.4050, L501.5200 ####[facility] [address] [place], [address] BUN/CRE 7.6 RATIO Low 10-20 [facility] Comment on above: Performed By: #### L 100.0100, L501.9520, L501.2300, L500.4050, L501.5200 ####[facility] [address] [place], [address] Calcium [Mass/Vol] 11.5 mg/dL High 7.6-11.0 [facility] Comment on above: Performed By: #### L 100.0100, L501.9520, L501.2300, L500.4050, L501.5200 ####[facility] [address] [place], [address] Chloride [Moles/Vol] 102 mmol/L Normal 98-108 [facility] Comment on above: Performed By: #### L 100.0100, L501.9520, L501.2300, L500.4050, L501.5200 ####[facility] [address] [place], [address] CO2 [Moles/Vol] 28.3 mmol/L Normal 21.0-32.0 [facility] Comment on above: Performed By: #### L 100.0100, L501.9520, L501.2300, L500.4050, L501.5200 ####[facility] [address] [place], [address] Creatinine [Mass/Vol] 1.55 mg/dL High 0.70-1.20 [facility] Comment on above: Performed By: #### L 100.0100, L501.9520, L501.2300, L500.4050, L501.5200 ####[facility] [address] [place], [address] ECRCL 54.51 ml/min Normal 50-250 [facility] Comment on above: Performed By: #### L 100.0100, L501.9520, L501.2300, L500.4050, L501.5200 ####[facility] [address] [place], [address] GAP 9 Normal 5-15 [facility] Comment on above: Performed By: #### L 100.0100, L501.9520, L501.2300, L500.4050, L501.5200 ####[facility] [address] [place], [address] GFR/1.73 sq M.predicted among non-blacks MDRD (S/P/Bld) [Vol rate/Area] 39 mL/min/{1.73_m2} Low >60 [facility] Comment on above: Result Comment: mL/m in/1.73m2 CKD-EPI Creatinine Equation (2020) Performed By: #### L 100.0100, L501.9520, L501.2300, L500.4050, L501.5200 ####[facility] [address] [place], [address] Globulin (S) [Mass/Vol] 2.5 g/dL Normal 2.2-4.2 [facility] Comment on above: Performed By: #### L 100.0100, L501.9520, L501.2300, L500.4050, L501.5200 ####[facility] [address] [place], [address] Glucose [Mass/Vol] 83 mg/dL Normal 70-99 [facility] Comment on above: Performed By: #### L 100.0100, L501.9520, L501.2300, L500.4050, L501.5200 ####[facility] [address] [place], [address] Potassium [Moles/Vol] 3.1 mmol/L Low 3.3-5.1 [facility] Comment on above: Performed By: #### L 100.0100, L501.9520, L501.2300, L500.4050, L501.5200 ####[facility] [address] [place], [address] Sodium [Moles/Vol] 139 mmol/L Normal 133-145 [facility] Comment on above: Performed By: #### L 100.0100, L501.9520, L501.2300, L500.4050, L501.5200 ####[facility] [address] [place], [address] T PROT 5.6 g/dL Low 5.9-8.4 [facility] Comment on above: Performed By: #### L 100.0100, L501.9520, L501.2300, L500.4050, L501.5200 ####[facility] [address] [place], [address] Urea nitrogen [Mass/Vol] 12 mg/dL Normal 4-19 [facility] Comment on above: Performed By: #### L 100.0100, L501.9520, L501.2300, L500.4050, L501.5200 ####[facility] [address] [place], [address] L501.2276on 05-17-2024 Ionized Calcium 1.49 mmol/L High 1.09-1.30 [facility] Comment on above: Performed By: #### L 501.2276 ####[facility] [address] [place], [address] Ionized Calcium 1.65 mmol/L High 1.09-1.30 [facility] Comment on above: Performed By: #### L 501.2276 ####[facility] [address] [place], [address] Ionized Calcium 1.63 mmol/L High 1.09-1.30 [facility] Comment on above: Performed By: #### L 501.2276 ####[facility] [address] [place], [address] Ionized Calcium 1.66 mmol/L High 1.09-1.30 [facility] Comment on above: Performed By: #### L 501.2276 ####[facility] [address] [place], [address] Ionized Calcium 1.59 mmol/L High 1.09-1.30 [facility] Comment on above: Performed By: #### L 501.2276 ####[facility] [address] [place], [address] Magnesiumon 05-17-2024 Magnesium [Mass/Vol] 1.8 mg/dL Normal 1.5-2.2 [facility] Comment on above: Performed By: #### L 100.0100, L501.9520, L501.2300, L500.4050, L501.5200 ####[facility] [address] [place], [address] Phosphoruson 05-17-2024 Phosphate [Mass/Vol] 3.0 mg/dL Normal 2.7-4.5 [facility] Comment on above: Performed By: #### L 100.0100, L501.9520, L501.2300, L500.4050, L501.5200 ####[facility] [address] [place], [address] Thyroid Stim Hormone (TSH)on 05-17-2024 TSH 0.697 uIU/mL Normal 0.300-4.200 [facility] Comment on above: Performed By: #### L 100.0100, L501.9520, L501.2300, L500.4050, L501.5200 ####[facility] [address] [place], [address] 12 Lead EKGon 05-16-2024 12 Lead EKG Normal [facility] CBC W/Diff, Automatedon 05-06 Absolute Lymph 1.42 X10 3/uL Normal 0.83-4.51 [facility] Comment on above: Performed By: #### L 506.0400, L501.87949, L500.4050, L100.0100, L501.9520 ####[facility] [address] [place], [address] Absolute Neut 3.5 X10 3/uL Normal 2.0-7.7 [facility] Comment on above: Performed By: #### L 506.0400, L501.51626, L500.4050, L100.0100, L501.9520 ####[facility] [address] [place], [address] Basophils/100 WBC (Bld) 0.5 % Normal 0-1 [facility] Comment on above: Performed By: #### L 506.0400, L501.97644, L500.4050, L100.0100, L501.9520 ####[facility] [address] [place], [address] Eosinophils/100 WBC (Bld) 4.9 % Normal 0-5 [facility] Comment on above: Performed By: #### L 506.0400, L501.40282, L500.4050, L100.0100, L501.9520 ####[facility] [address] [place], [address] Erythrocyte distribution width (RBC) [Ratio] 19.4 % High 11.6-14.6 [facility] Comment on above: Performed By: #### L 506.0400, L501.15306, L500.4050, L100.0100, L501.9520 ####[facility] [address] [place], [address] Hematocrit (Bld) [Volume fraction] 39.9 % Normal 37-47 [facility] Comment on above: Performed By: #### L 506.0400, L501.05589, L500.4050, L100.0100, L501.9520 ####[facility] [address] [place], [address] Hemoglobin (Bld) [Mass/Vol] 12.7 g/dL Normal 12.0-15.0 [facility] Comment on above: Performed By: #### L 506.0400, L501.78869, L500.4050, L100.0100, L501.9520 ####[facility] [address] [place], [address] IG% 0.000 Normal 0.0-0.9 [facility] Comment on above: Result Comment: IG% - Immature Granulocytes (promyelocytes, myelocytes andmetamyelocytes) > 1% indicates that a LEFT SHIFT is Present. Performed By: #### L 506.0400, L501.15352, L500.4050, L100.0100, L501.9520 ####[facility] [address] [place], [address] Lymphocytes/100 WBC (Bld) 24.6 % Normal 19-41 [facility] Comment on above: Performed By: #### L 506.0400, L501.15287, L500.4050, L100.0100, L501.9520 ####[facility] [address] [place], [address] MCH (RBC) [Entitic mass] 24.5 pg Low 27.0-32.0 [facility] Comment on above: Performed By: #### L 506.0400, L501.48612, L500.4050, L100.0100, L501.9520 ####[facility] [address] [place], [address] MCHC (RBC) [Mass/Vol] 31.8 g/dL Low 32-36 [facility] Comment on above: Performed By: #### L 506.0400, L501.59490, L500.4050, L100.0100, L501.9520 ####[facility] [address] [place], [address] MCV (RBC) [Entitic vol] 77.0 fL Low 81-99 [facility] Comment on above: Performed By: #### L 506.0400, L501.71916, L500.4050, L100.0100, L501.9520 ####[facility] [address] [place], [address] Monocytes/100 WBC (Bld) 8.8 % Normal 0-10 [facility] Comment on above: Performed By: #### L 506.0400, L501.72315, L500.4050, L100.0100, L501.9520 ####[facility] [address] [place], [address] Neutrophils/100 WBC (Bld) 61.2 % Normal 47-70 [facility] Comment on above: Performed By: #### L 506.0400, L501.27070, L500.4050, L100.0100, L501.9520 ####[facility] [address] [place], [address] Nucleated RBC (Bld) [#/Vol] 0 10*3/uL Normal 0-5 [facility] Comment on above: Performed By: #### L 506.0400, L501.02769, L500.4050, L100.0100, L501.9520 ####[facility] [address] [place], [address] Platelet mean volume (Bld) [Entitic vol] 10.3 fL Normal 6.2-12.0 [facility] Comment on above: Performed By: #### L 506.0400, L501.70688, L500.4050, L100.0100, L501.9520 ####[facility] [address] [place], [address] Platelets (Bld) [#/Vol] 387 10*3/uL Normal 150-450 [facility] Comment on above: Performed By: #### L 506.0400, L501.85382, L500.4050, L100.0100, L501.9520 ####[facility] [address] [place], [address] RBC (Bld) [#/Vol] 5.18 10*6/uL Normal 4.2-5.4 [facility] Comment on above: Performed By: #### L 506.0400, L501.22756, L500.4050, L100.0100, L501.9520 ####[facility] [address] [place], [address] RDW SD 52.1 fl High 35.1-43.9 [facility] Comment on above: Performed By: #### L 506.0400, L501.19489, L500.4050, L100.0100, L501.9520 ####[facility] [address] [place], [address] WBC (Bld) [#/Vol] 5.8 10*3/uL Normal 4.4-11.0 [facility] Comment on above: Performed By: #### L 506.0400, L501.20170, L500.4050, L100.0100, L501.9520 ####[facility] [address] [place], [address] Chest PA and Lateralon 05-16 Chest PA and Lateral Normal [facility] Comprehensive Metabolic Prof ilon 05-16-2024 Albumin [Mass/Vol] 3.8 g/dL Normal 3.5-5.0 [facility] Comment on above: Performed By: #### L 506.0400, L501.08157, L500.4050, L100.0100, L501.9520 ####[facility] [address] [place], [address] Albumin/Globulin [Mass ratio] 1.2 {ratio} Normal 0.9-2.4 [facility] Comment on above: Performed By: #### L 506.0400, L501.45767, L500.4050, L100.0100, L501.9520 ####[facility] [address] [place], [address] ALK PHOS 203 U/L High 35-104 [facility] Comment on above: Performed By: #### L 506.0400, L501.40483, L500.4050, L100.0100, L501.9520 ####[facility] [address] [place], [address] ALT [Catalytic activity/Vol] 72 U/L High <=34 [facility] Comment on above: Performed By: #### L 506.0400, L501.03136, L500.4050, L100.0100, L501.9520 ####[facility] [address] [place], [address] AST [Catalytic activity/Vol] 90 U/L High <=31 [facility] Comment on above: Performed By: #### L 506.0400, L501.51626, L500.4050, L100.0100, L501.9520 ####[facility] [address] [place], [address] Bilirubin [Mass/Vol] 0.63 mg/dL Normal 0.00-1.30 [facility] Comment on above: Performed By: #### L 506.0400, L501.99528, L500.4050, L100.0100, L501.9520 ####[facility] [address] [place], [address] BUN/CRE 7.2 RATIO Low 10-20 [facility] Comment on above: Performed By: #### L 506.0400, L501.40686, L500.4050, L100.0100, L501.9520 ####[facility] [address] [place], [address] Calcium [Mass/Vol] 13.6 mg/dL Invalid Interpretation Code 7.6-11.0 [facility] Comment on above: Result Comment: Crit ical Result(s) Called at 05/16/2024-09:51 by Mahogany Longo??Results read back by same. Performed By: #### L 506.0400, L501.70321, L500.4050, L100.0100, L501.9520 ####[facility] [address] [place], [address] Chloride [Moles/Vol] 93 mmol/L Low 98-108 [facility] Comment on above: Performed By: #### L 506.0400, L501.23377, L500.4050, L100.0100, L501.9520 ####[facility] [address] [place], [address] CO2 [Moles/Vol] 32.0 mmol/L Normal 21.0-32.0 [facility] Comment on above: Performed By: #### L 506.0400, L501.36443, L500.4050, L100.0100, L501.9520 ####[facility] [address] [place], [address] Creatinine [Mass/Vol] 1.83 mg/dL High 0.70-1.20 [facility] Comment on above: Performed By: #### L 506.0400, L501.53741, L500.4050, L100.0100, L501.9520 ####[facility] [address] [place], [address] ECRCL 46.61 ml/min Low 50-250 [facility] Comment on above: Performed By: #### L 506.0400, L501.30602, L500.4050, L100.0100, L501.9520 ####[facility] [address] [place], [address] GAP 12 Normal 5-15 [facility] Comment on above: Performed By: #### L 506.0400, L501.83856, L500.4050, L100.0100, L501.9520 ####[facility] [address] [place], [address] GFR/1.73 sq M.predicted among non-blacks MDRD (S/P/Bld) [Vol rate/Area] 32 mL/min/{1.73_m2} Low >60 [facility] Comment on above: Result Comment: mL/m in/1.73m2 CKD-EPI Creatinine Equation (2020) Performed By: #### L 506.0400, L501.28759, L500.4050, L100.0100, L501.9520 ####[facility] [address] [place], [address] Globulin (S) [Mass/Vol] 3.2 g/dL Normal 2.2-4.2 [facility] Comment on above: Performed By: #### L 506.0400, L501.60594, L500.4050, L100.0100, L501.9520 ####[facility] [address] [place], [address] Glucose [Mass/Vol] 124 mg/dL High 70-99 [facility] Comment on above: Performed By: #### L 506.0400, L501.59937, L500.4050, L100.0100, L501.9520 ####[facility] [address] [place], [address] Potassium [Moles/Vol] 2.5 mmol/L Invalid Interpretation Code 3.3-5.1 [facility] Comment on above: Result Comment: Crit ical Result(s) Called at 05/16/2024-09:51 by Mahogany Longo??Results read back by same. Performed By: #### L 506.0400, L501.87781, L500.4050, L100.0100, L501.9520 ####[facility] [address] [place], [address] Sodium [Moles/Vol] 137 mmol/L Normal 133-145 [facility] Comment on above: Performed By: #### L 506.0400, L501.67277, L500.4050, L100.0100, L501.9520 ####[facility] [address] [place], [address] T PROT 7.0 g/dL Normal 5.9-8.4 [facility] Comment on above: Performed By: #### L 506.0400, L501.48576, L500.4050, L100.0100, L501.9520 ####[facility] [address] [place], [address] Urea nitrogen [Mass/Vol] 13 mg/dL Normal 4-19 [facility] Comment on above: Performed By: #### L 506.0400, L501.72403, L500.4050, L100.0100, L501.9520 ####[facility] [address] [place], [address] Emergency Department Summary on 05-16-2024 Emergency Department Summary Normal [facility] Free T3on 05-16-2024 Free T3 [Mass/Vol] 2.9 pg/mL Normal 2.18-3.98 [facility] Comment on above: Performed By: #### L 506.0400, L501.24334, L500.4050, L100.0100, L501.9520 ####[facility] [address] [place], [address] H AND P Exam - Hospitaliston 05-16-2024 H&P Exam - Hospitalist Normal [facility] L501.2276on 05-16-2024 Ionized Calcium 1.75 mmol/L High 1.09-1.30 [facility] Comment on above: Performed By: #### L 501.2276 ####[facility] [address] [place], [address] L506.1001on 05-16-2024 Vitamin D 25-OH 38.2 ng/mL Normal 30-100 [facility] Comment on above: Result Comment: Carol min D StatusDeficiency: <20 ng/mL (50nmol/L)Insufficiency: 20-30 ng/mL (50-75 nmol/L)Sufficiency: 30-100 ng/mL (75-250 nmol/L)Toxicity: >100 ng/mL (>250 nmol/L) Performed By: #### L 506.1001, L501.5200 ####[facility] [address] [place], [address] Magnesiumon 05-16-2024 Magnesium [Mass/Vol] 1.8 mg/dL Normal 1.5-2.2 [facility] Comment on above: Performed By: #### L 506.1001, L501.5200 ####[facility] [address] [place], [address] PTHINon 05-16-2024 PTH 4 pg/mL Low 11-61 [facility] Comment on above: Performed By: #### L 509.1000 ####[facility] [address] [place], [address] T4 Free Directon 05-16-2024 T4 FREE DIRECT 1.40 ng/dL Normal 0.76-1.46 [facility] Comment on above: Performed By: #### L 506.0400, L501.20825, L500.4050, L100.0100, L501.9520 ####[facility] [address] [place], [address] Thyroid Stim Hormone (TSH)on 05-16-2024 TSH 0.661 uIU/mL Normal 0.300-4.200 [facility] Comment on above: Performed By: #### L 506.0400, L501.61466, L500.4050, L100.0100, L501.9520 ####[facility] [address] [place], [address] Urinalysis, Completeon 05-16 Mucus Ql (Urine sed) RARE Normal [facility] Comment on above: Order Comment: CLEAN CATCH Performed By: #### L 400.0001 ####[facility] [address] [place], [address] BACTERIA 1+ /hpf Normal None Seen [facility] Comment on above: Order Comment: CLEAN CATCH Performed By: #### L 400.0001 ####[facility] [address] [place], [address] EPI,SQUAMOUS 0-5 SEEN Normal 5-10 [facility] Comment on above: Order Comment: CLEAN CATCH Performed By: #### L 400.0001 ####[facility] [address] [place], [address] RBC 0-5 SEEN Normal 0-5 [facility] Comment on above: Order Comment: CLEAN CATCH Performed By: #### L 400.0001 ####[facility] [address] [place], [address] WBC 0-5 SEEN Normal 0-5 [facility] Comment on above: Order Comment: CLEAN CATCH Performed By: #### L 400.0001 ####[facility] [address] [place], [address] MR/BMS.BPon 05-08-2024 MR/BMS.BP Normal [facility] Brain without Contraston Brain without Contrast Normal [facility] MR/BMS.BPon 04-13-2024 MR/BMS.BP Normal [facility] CBC W/Diff, Automatedon - Anisocytosis Ql (Bld) 1+ Normal [facility] Comment on above: Performed By: #### L 100.0100, L501.3620, L500.4050, L501.5200, L503.6150, L501.9520 ####[facility] [address] [place], [address] HYPOCHROMASIA 1+ Normal [facility] Comment on above: Performed By: #### L 100.0100, L501.3620, L500.4050, L501.5200, L503.6150, L501.9520 ####[facility] [address] [place], [address] TARGET CELLS RARE Normal [facility] Comment on above: Performed By: #### L 100.0100, L501.3620, L500.4050, L501.5200, L503.6150, L501.9520 ####[facility] [address] [place], [address] PLT EST ADEQUATE Normal ADEQ [facility] Comment on above: Performed By: #### L 100.0100, L501.3620, L500.4050, L501.5200, L503.6150, L501.9520 ####[facility] [address] [place], [address] SMEAR COMMENT SCANNED Normal [facility] Comment on above: Performed By: #### L 100.0100, L501.3620, L500.4050, L501.5200, L503.6150, L501.9520 ####[facility] [address] [place], [address] CPK Total, Creatine Kinaseon 04-07-2024 CPK TOTAL 202 U/L High 26-192 [facility] Comment on above: Performed By: #### L 100.0100, L501.3620, L500.4050, L501.5200, L503.6150, L501.9520 ####[facility] [address] [place], [address] Comprehensive Metabolic Prof ilon 04-07-2024 Albumin [Mass/Vol] 3.3 g/dL Normal 3.2-5.0 [facility] Comment on above: Performed By: #### L 100.0100, L501.3620, L500.4050, L501.5200, L503.6150, L501.9520 ####[facility] [address] [place], [address] Albumin/Globulin [Mass ratio] 0.9 {ratio} Normal 0.9-2.4 [facility] Comment on above: Performed By: #### L 100.0100, L501.3620, L500.4050, L501.5200, L503.6150, L501.9520 ####[facility] [address] [place], [address] ALK P 110 U/L Normal 45-117 [facility] Comment on above: Performed By: #### L 100.0100, L501.3620, L500.4050, L501.5200, L503.6150, L501.9520 ####[facility] [address] [place], [address] ALT [Catalytic activity/Vol] 54 U/L Normal 13-56 [facility] Comment on above: Performed By: #### L 100.0100, L501.3620, L500.4050, L501.5200, L503.6150, L501.9520 ####[facility] [address] [place], [address] AST [Catalytic activity/Vol] 40 U/L High 15-37 [facility] Comment on above: Performed By: #### L 100.0100, L501.3620, L500.4050, L501.5200, L503.6150, L501.9520 ####[facility] [address] [place], [address] Bilirubin [Mass/Vol] 0.70 mg/dL Normal 0.20-1.00 [facility] Comment on above: Result Comment: For patients on eltrombopag therapy, use of Dimension [place] TBIL is not recommended. Performed By: #### L 100.0100, L501.3620, L500.4050, L501.5200, L503.6150, L501.9520 ####[facility] [address] [place], [address] BUN/CRE 11.4 RATIO Normal 10-20 [facility] Comment on above: Performed By: #### L 100.0100, L501.3620, L500.4050, L501.5200, L503.6150, L501.9520 ####[facility] [address] [place], [address] CA,Total 9.8 mg/dL Normal 8.5-10.1 [facility] Comment on above: Performed By: #### L 100.0100, L501.3620, L500.4050, L501.5200, L503.6150, L501.9520 ####[facility] [address] [place], [address] Chloride [Moles/Vol] 101 mmol/L Normal 98-107 [facility] Comment on above: Performed By: #### L 100.0100, L501.3620, L500.4050, L501.5200, L503.6150, L501.9520 ####[facility] [address] [place], [address] CO2 [Moles/Vol] 30.0 mmol/L Normal 21.0-32.0 [facility] Comment on above: Performed By: #### L 100.0100, L501.3620, L500.4050, L501.5200, L503.6150, L501.9520 ####[facility] [address] [place], [address] Creatinine [Mass/Vol] 1.14 mg/dL High 0.55-1.02 [facility] Comment on above: Result Comment: The validity of the calculated GFR GFRAA in patients over70 years has not been determined. Clinical correlation isessential. Performed By: #### L 100.0100, L501.3620, L500.4050, L501.5200, L503.6150, L501.9520 ####[facility] [address] [place], [address] EST GFR - AA 63 mL/min Normal >60 [facility] Comment on above: Result Comment: Afri can [place] GFR Calc Performed By: #### L 100.0100, L501.3620, L500.4050, L501.5200, L503.6150, L501.9520 ####[facility] [address] [place], [address] GAP 8 Normal 5-15 [facility] Comment on above: Performed By: #### L 100.0100, L501.3620, L500.4050, L501.5200, L503.6150, L501.9520 ####[facility] [address] [place], [address] GFR/1.73 sq M.predicted among non-blacks MDRD (S/P/Bld) [Vol rate/Area] 52 mL/min/{1.73_m2} Low >60 [facility] Comment on above: Result Comment: Non- GFR Calc Performed By: #### L 100.0100, L501.3620, L500.4050, L501.5200, L503.6150, L501.9520 ####[facility] [address] [place], [address] Globulin (S) [Mass/Vol] 3.8 g/dL Normal 2.2-4.2 [facility] Comment on above: Performed By: #### L 100.0100, L501.3620, L500.4050, L501.5200, L503.6150, L501.9520 ####[facility] [address] [place], [address] Glucose [Mass/Vol] 98 mg/dL Normal 74-106 [facility] Comment on above: Performed By: #### L 100.0100, L501.3620, L500.4050, L501.5200, L503.6150, L501.9520 ####[facility] [address] [place], [address] Potassium [Moles/Vol] 3.1 mmol/L Low 3.5-5.1 [facility] Comment on above: Performed By: #### L 100.0100, L501.3620, L500.4050, L501.5200, L503.6150, L501.9520 ####[facility] [address] [place], [address] Sodium [Moles/Vol] 139 mmol/L Normal 136-145 [facility] Comment on above: Performed By: #### L 100.0100, L501.3620, L500.4050, L501.5200, L503.6150, L501.9520 ####[facility] [address] [place], [address] T PROT 7.1 g/dL Normal 6.4-8.2 [facility] Comment on above: Performed By: #### L 100.0100, L501.3620, L500.4050, L501.5200, L503.6150, L501.9520 ####[facility] [address] [place], [address] Urea nitrogen [Mass/Vol] 13 mg/dL Normal 7-18 [facility] Comment on above: Performed By: #### L 100.0100, L501.3620, L500.4050, L501.5200, L503.6150, L501.9520 ####[facility] [address] [place], [address] Internal Medicine Office Vis iton 04-07-2024 Internal Medicine Office Visit Normal [facility] Ironon 04-07-2024 Iron [Mass/Vol] 27 ug/dL Low 50-170 [facility] Comment on above: Performed By: #### L 100.0100, L501.3620, L500.4050, L501.5200, L503.6150, L501.9520 ####[facility] [address] [place], [address] Magnesiumon 04-07-2024 Magnesium [Mass/Vol] 2.1 mg/dL Normal 1.6-2.6 [facility] Comment on above: Performed By: #### L 100.0100, L501.3620, L500.4050, L501.5200, L503.6150, L501.9520 ####[facility] [address] [place], [address] Thyroid Stim Hormone (TSH)on 04-07-2024 TSH 1.450 uIU/mL Normal 0.358-3.740 [facility] Comment on above: Performed By: #### L 100.0100, L501.3620, L500.4050, L501.5200, L503.6150, L501.9520 ####[facility] [address] [place], [address] Culture, Blood (WB)on 2024 CUB Blood cultures x2, f rom two different sites No growth in 5 days. Normal [facility] Comment on above: Performed By: #### L 503.6005, M200.1000, L509.7000 ####[facility] [address] [place], [address] Basic Metabolic Profile (BMP )on 04-03-2024 BUN Normal 7-18 [facility] Comment on above: Result Comment: Canc elled via OM: Order cancelled - Patient discharged Performed By: #### L 100.0100, L500.2500 ####[facility] [address] [place], [address] BUN/CRE Normal 10-20 [facility] Comment on above: Result Comment: Canc elled via OM: Order cancelled - Patient discharged Performed By: #### L 100.0100, L500.2500 ####[facility] [address] [place], [address] CA,Total Normal 8.5-10.1 [facility] Comment on above: Result Comment: Canc elled via OM: Order cancelled - Patient discharged Performed By: #### L 100.0100, L500.2500 ####[facility] [address] [place], [address] CL Normal 98-107 [facility] Comment on above: Result Comment: Canc elled via OM: Order cancelled - Patient discharged Performed By: #### L 100.0100, L500.2500 ####[facility] [address] [place], [address] CO2 Normal 21.0-32.0 [facility] Comment on above: Result Comment: Canc elled via OM: Order cancelled - Patient discharged Performed By: #### L 100.0100, L500.2500 ####[facility] [address] [place], [address] CREAT,SERUM Normal 0.55-1.02 [facility] Comment on above: Result Comment: Canc elled via OM: Order cancelled - Patient discharged Performed By: #### L 100.0100, L500.2500 ####[facility] [address] [place], [address] EST GFR Normal >60 [facility] Comment on above: Result Comment: Canc elled via OM: Order cancelled - Patient discharged Performed By: #### L 100.0100, L500.2500 ####[facility] [address] [place], [address] EST GFR - AA Normal >60 [facility] Comment on above: Result Comment: Canc elled via OM: Order cancelled - Patient discharged Performed By: #### L 100.0100, L500.2500 ####[facility] [address] [place], [address] GAP Normal 5-15 [facility] Comment on above: Result Comment: Canc elled via OM: Order cancelled - Patient discharged Performed By: #### L 100.0100, L500.2500 ####[facility] [address] [place], [address] GLU Normal 74-106 [facility] Comment on above: Result Comment: Canc elled via OM: Order cancelled - Patient discharged Performed By: #### L 100.0100, L500.2500 ####[facility] [address] [place], [address] Potassium Normal 3.5-5.1 [facility] Comment on above: Result Comment: Canc elled via OM: Order cancelled - Patient discharged Performed By: #### L 100.0100, L500.2500 ####[facility] [address] [place], [address] Basic Metabolic Profile (BMP) Normal 136-145 [facility] Comment on above: Result Comment: Canc elled via OM: Order cancelled - Patient discharged Performed By: #### L 100.0100, L500.2500 ####[facility] [address] [place], [address] CBC W/Diff, Automatedon - Absolute Neut Normal 2.0-7.7 [facility] Comment on above: Result Comment: Canc elled via OM: Order cancelled - Patient discharged Performed By: #### L 100.0100, L500.2500 ####[facility] [address] [place], [address] HCT Normal 37-47 [facility] Comment on above: Result Comment: Canc elled via OM: Order cancelled - Patient discharged Performed By: #### L 100.0100, L500.2500 ####[facility] [address] [place], [address] HGB Normal 12.0-15.0 [facility] Comment on above: Result Comment: Canc elled via OM: Order cancelled - Patient discharged Performed By: #### L 100.0100, L500.2500 ####[facility] [address] [place], [address] MCH Normal 27.0-32.0 [facility] Comment on above: Result Comment: Canc elled via OM: Order cancelled - Patient discharged Performed By: #### L 100.0100, L500.2500 ####[facility] [address] [place], [address] MCHC Normal 32-36 [facility] Comment on above: Result Comment: Canc elled via OM: Order cancelled - Patient discharged Performed By: #### L 100.0100, L500.2500 ####[facility] [address] [place], [address] MCV Normal 81-99 [facility] Comment on above: Result Comment: Canc elled via OM: Order cancelled - Patient discharged Performed By: #### L 100.0100, L500.2500 ####[facility] [address] [place], [address] NEUT% Normal 47-70 [facility] Comment on above: Result Comment: Canc elled via OM: Order cancelled - Patient discharged Performed By: #### L 100.0100, L500.2500 ####[facility] [address] [place], [address] PLT Normal 150-450 [facility] Comment on above: Result Comment: Canc elled via OM: Order cancelled - Patient discharged Performed By: #### L 100.0100, L500.2500 ####[facility] [address] [place], [address] RBC Normal 4.2-5.4 [facility] Comment on above: Result Comment: Canc elled via OM: Order cancelled - Patient discharged Performed By: #### L 100.0100, L500.2500 ####[facility] [address] [place], [address] RDW CV Normal 11.6-14.6 [facility] Comment on above: Result Comment: Canc elled via OM: Order cancelled - Patient discharged Performed By: #### L 100.0100, L500.2500 ####[facility] [address] [place], [address] RDW SD Normal 35.1-43.9 [facility] Comment on above: Result Comment: Canc elled via OM: Order cancelled - Patient discharged Performed By: #### L 100.0100, L500.2500 ####[facility] [address] [place], [address] WBC Normal 4.4-11.0 [facility] Comment on above: Result Comment: Canc elled via OM: Order cancelled - Patient discharged Performed By: #### L 100.0100, L500.2500 ####[facility] [address] [place], [address] Basic Metabolic Profile (BMP )on 04-02-2024 BUN Normal 7-18 [facility] Comment on above: Result Comment: Canc elled via OM: Order cancelled - Patient discharged Performed By: #### L 100.0100, L500.2500 ####[facility] [address] [place], [address] BUN/CRE Normal 10-20 [facility] Comment on above: Result Comment: Canc elled via OM: Order cancelled - Patient discharged Performed By: #### L 100.0100, L500.2500 ####[facility] [address] [place], [address] CA,Total Normal 8.5-10.1 [facility] Comment on above: Result Comment: Canc elled via OM: Order cancelled - Patient discharged Performed By: #### L 100.0100, L500.2500 ####[facility] [address] [place], [address] CL Normal 98-107 [facility] Comment on above: Result Comment: Canc elled via OM: Order cancelled - Patient discharged Performed By: #### L 100.0100, L500.2500 ####[facility] [address] [place], [address] CO2 Normal 21.0-32.0 [facility] Comment on above: Result Comment: Canc elled via OM: Order cancelled - Patient discharged Performed By: #### L 100.0100, L500.2500 ####[facility] [address] [place], [address] CREAT,SERUM Normal 0.55-1.02 [facility] Comment on above: Result Comment: Canc elled via OM: Order cancelled - Patient discharged Performed By: #### L 100.0100, L500.2500 ####[facility] [address] [place], [address] EST GFR Normal >60 [facility] Comment on above: Result Comment: Canc elled via OM: Order cancelled - Patient discharged Performed By: #### L 100.0100, L500.2500 ####[facility] [address] [place], [address] EST GFR - AA Normal >60 [facility] Comment on above: Result Comment: Canc elled via OM: Order cancelled - Patient discharged Performed By: #### L 100.0100, L500.2500 ####[facility] [address] [place], [address] GAP Normal 5-15 [facility] Comment on above: Result Comment: Canc elled via OM: Order cancelled - Patient discharged Performed By: #### L 100.0100, L500.2500 ####[facility] [address] [place], [address] GLU Normal 74-106 [facility] Comment on above: Result Comment: Canc elled via OM: Order cancelled - Patient discharged Performed By: #### L 100.0100, L500.2500 ####[facility] [address] [place], [address] Potassium Normal 3.5-5.1 [facility] Comment on above: Result Comment: Canc elled via OM: Order cancelled - Patient discharged Performed By: #### L 100.0100, L500.2500 ####[facility] [address] [place], [address] Basic Metabolic Profile (BMP) Normal 136-145 [facility] Comment on above: Result Comment: Canc elled via OM: Order cancelled - Patient discharged Performed By: #### L 100.0100, L500.2500 ####[facility] [address] [place], [address] CBC W/Diff, Automatedon -2 Anisocytosis Ql (Bld) 2+ Normal [facility] Comment on above: Performed By: #### L 500.4050, L503.6005, L100.0100 ####[facility] [address] [place], [address] PLT EST ADEQUATE Normal ADEQ [facility] Comment on above: Performed By: #### L 500.4050, L503.6005, L100.0100 ####[facility] [address] [place], [address] SMEAR COMMENT SCANNED Normal [facility] Comment on above: Performed By: #### L 500.4050, L503.6005, L100.0100 ####[facility] [address] [place], [address] TARGET CELLS 1+ Normal [facility] Comment on above: Performed By: #### L 500.4050, L503.6005, L100.0100 ####[facility] [address] [place], [address] Absolute Neut Normal 2.0-7.7 [facility] Comment on above: Result Comment: Canc elled via OM: Order cancelled - Patient discharged Performed By: #### L 100.0100, L500.2500 ####[facility] [address] [place], [address] HCT Normal 37-47 [facility] Comment on above: Result Comment: Canc elled via OM: Order cancelled - Patient discharged Performed By: #### L 100.0100, L500.2500 ####[facility] [address] [place], [address] HGB Normal 12.0-15.0 [facility] Comment on above: Result Comment: Canc elled via OM: Order cancelled - Patient discharged Performed By: #### L 100.0100, L500.2500 ####[facility] [address] [place], [address] MCH Normal 27.0-32.0 [facility] Comment on above: Result Comment: Canc elled via OM: Order cancelled - Patient discharged Performed By: #### L 100.0100, L500.2500 ####[facility] [address] [place], [address] MCHC Normal 32-36 [facility] Comment on above: Result Comment: Canc elled via OM: Order cancelled - Patient discharged Performed By: #### L 100.0100, L500.2500 ####[facility] [address] [place], [address] MCV Normal 81-99 [facility] Comment on above: Result Comment: Canc elled via OM: Order cancelled - Patient discharged Performed By: #### L 100.0100, L500.2500 ####[facility] [address] [place], [address] NEUT% Normal 47-70 [facility] Comment on above: Result Comment: Canc elled via OM: Order cancelled - Patient discharged Performed By: #### L 100.0100, L500.2500 ####[facility] [address] [place], [address] PLT Normal 150-450 [facility] Comment on above: Result Comment: Canc elled via OM: Order cancelled - Patient discharged Performed By: #### L 100.0100, L500.2500 ####[facility] [address] [place], [address] RBC Normal 4.2-5.4 [facility] Comment on above: Result Comment: Canc elled via OM: Order cancelled - Patient discharged Performed By: #### L 100.0100, L500.2500 ####[facility] [address] [place], [address] RDW CV Normal 11.6-14.6 [facility] Comment on above: Result Comment: Canc elled via OM: Order cancelled - Patient discharged Performed By: #### L 100.0100, L500.2500 ####[facility] [address] [place], [address] RDW SD Normal 35.1-43.9 [facility] Comment on above: Result Comment: Canc elled via OM: Order cancelled - Patient discharged Performed By: #### L 100.0100, L500.2500 ####[facility] [address] [place], [address] WBC Normal 4.4-11.0 [facility] Comment on above: Result Comment: Canc elled via OM: Order cancelled - Patient discharged Performed By: #### L 100.0100, L500.2500 ####[facility] [address] [place], [address] CPK Total, Creatine Kinaseon 04-02-2024 CPK TOTAL 3351 U/L High 26-192 [facility] Comment on above: Performed By: #### L 501.3620 ####[facility] [address] [place], [address] Chest PA and Lateralon 04-02 Chest PA and Lateral Normal [facility] Comprehensive Metabolic Prof ilon 04-02-2024 Albumin [Mass/Vol] 2.9 g/dL Low 3.2-5.0 [facility] Comment on above: Performed By: #### L 500.4050, L503.6005, L100.0100 ####[facility] [address] [place], [address] Albumin/Globulin [Mass ratio] 0.8 {ratio} Low 0.9-2.4 [facility] Comment on above: Performed By: #### L 500.4050, L503.6005, L100.0100 ####[facility] [address] [place], [address] ALK P 116 U/L Normal 45-117 [facility] Comment on above: Performed By: #### L 500.4050, L503.6005, L100.0100 ####[facility] [address] [place], [address] ALT [Catalytic activity/Vol] 105 U/L High 13-56 [facility] Comment on above: Performed By: #### L 500.4050, L503.6005, L100.0100 ####[facility] [address] [place], [address] AST [Catalytic activity/Vol] 212 U/L High 15-37 [facility] Comment on above: Performed By: #### L 500.4050, L503.6005, L100.0100 ####[facility] [address] [place], [address] Bilirubin [Mass/Vol] 1.00 mg/dL Normal 0.20-1.00 [facility] Comment on above: Result Comment: For patients on eltrombopag therapy, use of Dimension [place] TBIL is not recommended. Performed By: #### L 500.4050, L503.6005, L100.0100 ####[facility] [address] [place], [address] BUN/CRE 16.2 RATIO Normal 10-20 [facility] Comment on above: Performed By: #### L 500.4050, L503.6005, L100.0100 ####[facility] [address] [place], [address] CA,Total 9.3 mg/dL Normal 8.5-10.1 [facility] Comment on above: Performed By: #### L 500.4050, L503.6005, L100.0100 ####[facility] [address] [place], [address] Chloride [Moles/Vol] 110 mmol/L High 98-107 [facility] Comment on above: Performed By: #### L 500.4050, L503.6005, L100.0100 ####[facility] [address] [place], [address] CO2 [Moles/Vol] 21.0 mmol/L Normal 21.0-32.0 [facility] Comment on above: Performed By: #### L 500.4050, L503.6005, L100.0100 ####[facility] [address] [place], [address] Creatinine [Mass/Vol] 1.17 mg/dL High 0.55-1.02 [facility] Comment on above: Result Comment: The validity of the calculated GFR GFRAA in patients over70 years has not been determined. Clinical correlation isessential. Performed By: #### L 500.4050, L503.6005, L100.0100 ####[facility] [address] [place], [address] ECRCL 80.16 ml/min Normal [facility] Comment on above: Performed By: #### L 500.4050, L503.6005, L100.0100 ####[facility] [address] [place], [address] EST GFR - AA 61 mL/min Normal >60 [facility] Comment on above: Result Comment: Afri can [place] GFR Calc Performed By: #### L 500.4050, L503.6005, L100.0100 ####[facility] [address] [place], [address] GAP 6 Normal 5-15 [facility] Comment on above: Performed By: #### L 500.4050, L503.6005, L100.0100 ####[facility] [address] [place], [address] GFR/1.73 sq M.predicted among non-blacks MDRD (S/P/Bld) [Vol rate/Area] 51 mL/min/{1.73_m2} Low >60 [facility] Comment on above: Result Comment: Non- GFR Calc Performed By: #### L 500.4050, L503.6005, L100.0100 ####[facility] [address] [place], [address] Globulin (S) [Mass/Vol] 3.7 g/dL Normal 2.2-4.2 [facility] Comment on above: Performed By: #### L 500.4050, L503.6005, L100.0100 ####[facility] [address] [place], [address] Glucose [Mass/Vol] 91 mg/dL Normal 74-106 [facility] Comment on above: Performed By: #### L 500.4050, L503.6005, L100.0100 ####[facility] [address] [place], [address] Potassium [Moles/Vol] 3.9 mmol/L Normal 3.5-5.1 [facility] Comment on above: Performed By: #### L 500.4050, L503.6005, L100.0100 ####[facility] [address] [place], [address] Sodium [Moles/Vol] 137 mmol/L Normal 136-145 [facility] Comment on above: Performed By: #### L 500.4050, L503.6005, L100.0100 ####[facility] [address] [place], [address] T PROT 6.6 g/dL Normal 6.4-8.2 [facility] Comment on above: Performed By: #### L 500.4050, L503.6005, L100.0100 ####[facility] [address] [place], [address] Urea nitrogen [Mass/Vol] 19 mg/dL High 7-18 [facility] Comment on above: Performed By: #### L 500.4050, L503.6005, L100.0100 ####[facility] [address] [place], [address] Elbow min 3 Viewson 04-02-19 25 Elbow min 3 Views Normal [facility] Emergency Department Summary on 04-02-2024 Emergency Department Summary Normal [facility] Lactic Acidon 04-02-2024 Lactate [Moles/Vol] 1.4 mmol/L Normal 0.4-1.9 [facility] Comment on above: Performed By: #### L 503.6005 ####[facility] [address] [place], [address] Lactate [Moles/Vol] 2.0 mmol/L Normal 0.4-1.9 [facility] Comment on above: Order Comment: Y Result Comment: Crit ical Result(s) Called at: 09:56:03 04/02/2024 by: Shukri Payne RN (ER). Results read back by same. Performed By: #### L 500.4050, L503.6005, L100.0100 ####[facility] [address] [place], [address] Urinalysis, Completeon 04-02 BACTERIA 1+ /hpf Normal None Seen [facility] Comment on above: Order Comment: COLLE CTOR TO SPECIFY Performed By: #### L 400.0001 ####[facility] [address] [place], [address] EPI,SQUAMOUS 0-5 SEEN Normal 5-10 [facility] Comment on above: Order Comment: COLLE CTOR TO SPECIFY Performed By: #### L 400.0001 ####[facility] [address] [place], [address] RBC 0-5 SEEN Normal 0-5 [facility] Comment on above: Order Comment: COLLE CTOR TO SPECIFY Performed By: #### L 400.0001 ####[facility] [address] [place], [address] WBC 0-5 SEEN Normal 0-5 [facility] Comment on above: Order Comment: COLLE CTOR TO SPECIFY Performed By: #### L 400.0001 ####[facility] [address] [place], [address] Mucus Ql (Urine sed) 0 SEEN Normal [facility] Comment on above: Order Comment: COLLE CTOR TO SPECIFY Performed By: #### L 400.0001 ####[facility] [address] [place] [id number] Urine Drug Screen (VISTA)on 04-02-2024 AMPHETAMINES Negative Normal <1000 ng/mL [facility] Comment on above: Performed By: #### L 505.5000 ####[facility] [address] [facility] [address] BARBITIURATES Negative Normal < 200 ng/mL [facility] Comment on above: Performed By: #### L 505.5000 ####[facility] [address] [place] [id number] BENZODIAZIPINE Positive Abnormal < 200 ng/mL [facility] Comment on above: Performed By: #### L 505.5000 ####[facility] [address] [facility] [address] COCAINE Negative Normal < 300 ng/mL [facility] Comment on above: Performed By: #### L 505.5000 ####[facility] [address] [place], [address] ECSTACY Positive Abnormal < 500 ng/mL [facility] Comment on above: Performed By: #### L 505.5000 ####[facility] [address] [facility] [address] METHADONE Negative Normal < 300 ng/mL [facility] Comment on above: Performed By: #### L 505.5000 ####[facility] [address] [facility] [address] OPIATES Positive Abnormal < 300 ng/mL [facility] Comment on above: Performed By: #### L 505.5000 ####[facility] [address] [place], [address] PCP Negative Normal < 25 ng/mL [facility] Comment on above: Performed By: #### L 505.5000 ####[facility] [address] [place], [address] THC Negative Normal < 50 ng/mL [facility] Comment on above: Performed By: #### L 505.5000 ####[facility] [address] [place], [address] VISTA UDS PH 5 Normal [facility] Comment on above: Performed By: #### L 505.5000 ####[facility] [address] [place], [address] Basic Metabolic Profile (BMP )on 04-01-2024 BUN/CRE 22.9 RATIO High 10-20 [facility] Comment on above: Performed By: #### L 100.0100, L500.2500, L501.5200 ####[facility] [address] [place], [address] CA,Total 8.6 mg/dL Normal 8.5-10.1 [facility] Comment on above: Performed By: #### L 100.0100, L500.2500, L501.5200 ####[facility] [address] [place], [address] Chloride [Moles/Vol] 108 mmol/L High 98-107 [facility] Comment on above: Performed By: #### L 100.0100, L500.2500, L501.5200 ####[facility] [address] [place], [address] CO2 [Moles/Vol] 21.0 mmol/L Normal 21.0-32.0 [facility] Comment on above: Performed By: #### L 100.0100, L500.2500, L501.5200 ####[facility] [address] [place], [address] Creatinine [Mass/Vol] 1.09 mg/dL High 0.55-1.02 [facility] Comment on above: Result Comment: The validity of the calculated GFR GFRAA in patients over70 years has not been determined. Clinical correlation isessential. Performed By: #### L 100.0100, L500.2500, L501.5200 ####[facility] [address] [place], [address] ECRCL 83.85 ml/min Normal [facility] Comment on above: Performed By: #### L 100.0100, L500.2500, L501.5200 ####[facility] [address] [place], [address] EST GFR - AA 66 mL/min Normal >60 [facility] Comment on above: Result Comment: Afri can [place] GFR Calc Performed By: #### L 100.0100, L500.2500, L501.5200 ####[facility] [address] [place], [address] GAP 9 Normal 5-15 [facility] Comment on above: Performed By: #### L 100.0100, L500.2500, L501.5200 ####[facility] [address] [place], [address] GFR/1.73 sq M.predicted among non-blacks MDRD (S/P/Bld) [Vol rate/Area] 55 mL/min/{1.73_m2} Low >60 [facility] Comment on above: Result Comment: Non- GFR Calc Performed By: #### L 100.0100, L500.2500, L501.5200 ####[facility] [address] [place], [address] Glucose [Mass/Vol] 105 mg/dL Normal 74-106 [facility] Comment on above: Result Comment: Fast ing Glucose result from 100 to 125 mg/dLsuggests IMPAIRED HOMEOSTASIS per A.D.A. criteria. Performed By: #### L 100.0100, L500.2500, L501.5200 ####[facility] [address] [place], [address] Potassium [Moles/Vol] 3.6 mmol/L Normal 3.5-5.1 [facility] Comment on above: Performed By: #### L 100.0100, L500.2500, L501.5200 ####[facility] [address] [place], [address] Sodium [Moles/Vol] 138 mmol/L Normal 136-145 [facility] Comment on above: Performed By: #### L 100.0100, L500.2500, L501.5200 ####[facility] [address] [place], [address] Urea nitrogen [Mass/Vol] 25 mg/dL High 7-18 [facility] Comment on above: Performed By: #### L 100.0100, L500.2500, L501.5200 ####[facility] [address] [place], [address] CBC W/Diff, Automatedon -2 Anisocytosis Ql (Bld) 2+ Normal [facility] Comment on above: Performed By: #### L 100.0100, L500.2500, L501.5200 ####[facility] [address] [place], [address] HYPOCHROMASIA 1+ Normal [facility] Comment on above: Performed By: #### L 100.0100, L500.2500, L501.5200 ####[facility] [address] [place], [address] MICROCYTIC 1+ Normal [facility] Comment on above: Performed By: #### L 100.0100, L500.2500, L501.5200 ####[facility] [address] [place], [address] PLT EST ADEQUATE Normal ADEQ [facility] Comment on above: Performed By: #### L 100.0100, L500.2500, L501.5200 ####[facility] [address] [place], [address] POLYCHROMASIA 1+ Normal [facility] Comment on above: Performed By: #### L 100.0100, L500.2500, L501.5200 ####[facility] [address] [place], [address] SMEAR COMMENT SCANNED Normal [facility] Comment on above: Performed By: #### L 100.0100, L500.2500, L501.5200 ####[facility] [address] [place], [address] TARGET CELLS RARE Normal [facility] Comment on above: Performed By: #### L 100.0100, L500.2500, L501.5200 ####[facility] [address] [place], [address] CPK Total, Creatine Kinaseon 04-01-2024 CPK TOTAL 4258 U/L High 26-192 [facility] Comment on above: Performed By: #### L 501.2010 ####[facility] [address] [place], [address] Magnesiumon 5 Magnesium [Mass/Vol] 1.9 mg/dL Normal 1.6-2.6 [facility] Comment on above: Performed By: #### L 100.0100, L500.2500, L501.5200 ####[facility] [address] [place], [address] Phosphoruson 5 Phosphate [Mass/Vol] 2.5 mg/dL Normal 2.5-4.9 [facility] Comment on above: Performed By: #### L 501.1920 ####[facility] [address] [place], [address] CBC W/Diff, Automatedon 03-09 Absolute Lymph 1.89 X10 3/uL Normal 0.83-4.51 [facility] Comment on above: Performed By: #### L 100.0100 ####[facility] [address] [place], [address] Absolute Neut 8.1 X10 3/uL High 2.0-7.7 [facility] Comment on above: Performed By: #### L 100.0100 ####[facility] [address] [place], [address] Basophils/100 WBC (Bld) 0.4 % Normal 0-1 [facility] Comment on above: Performed By: #### L 100.0100 ####[facility] [address] [place], [address] Eosinophils/100 WBC (Bld) 6.2 % High 0-5 [facility] Comment on above: Performed By: #### L 100.0100 ####[facility] [address] [place], [address] Erythrocyte distribution width (RBC) [Ratio] 21.2 % High 11.6-14.6 [facility] Comment on above: Performed By: #### L 100.0100 ####[facility] [address] [place], [address] Hematocrit (Bld) [Volume fraction] 28.2 % Low 37-47 [facility] Comment on above: Performed By: #### L 100.0100 ####[facility] [address] [place], [address] Hemoglobin (Bld) [Mass/Vol] 8.8 g/dL Low 12.0-15.0 [facility] Comment on above: Performed By: #### L 100.0100 ####[facility] [address] [place], [address] IG% 0.400 Normal 0.0-0.9 [facility] Comment on above: Result Comment: IG% - Immature Granulocytes (promyelocytes, myelocytes andmetamyelocytes) > 1% indicates that a LEFT SHIFT is Present. Performed By: #### L 100.0100 ####[facility] [address] [place], [address] Lymphocytes/100 WBC (Bld) 16.3 % Low 19-41 [facility] Comment on above: Performed By: #### L 100.0100 ####[facility] [address] [place], [address] MCH (RBC) [Entitic mass] 23.3 pg Low 27.0-32.0 [facility] Comment on above: Performed By: #### L 100.0100 ####[facility] [address] [place], [address] MCHC (RBC) [Mass/Vol] 31.2 g/dL Low 32-36 [facility] Comment on above: Performed By: #### L 100.0100 ####[facility] [address] [place], [address] MCV (RBC) [Entitic vol] 74.6 fL Low 81-99 [facility] Comment on above: Performed By: #### L 100.0100 ####[facility] [address] [place], [address] Monocytes/100 WBC (Bld) 6.5 % Normal 0-10 [facility] Comment on above: Performed By: #### L 100.0100 ####[facility] [address] [place], [address] Neutrophils/100 WBC (Bld) 70.2 % High 47-70 [facility] Comment on above: Performed By: #### L 100.0100 ####[facility] [address] [place], [address] Nucleated RBC (Bld) [#/Vol] 0 10*3/uL Normal 0-5 [facility] Comment on above: Performed By: #### L 100.0100 ####[facility] [address] [place], [address] Platelet mean volume (Bld) [Entitic vol] 10.2 fL Normal 6.2-12.0 [facility] Comment on above: Performed By: #### L 100.0100 ####[facility] [address] [place], [address] Platelets (Bld) [#/Vol] 261 10*3/uL Normal 150-450 [facility] Comment on above: Performed By: #### L 100.0100 ####[facility] [address] [place], [address] RBC (Bld) [#/Vol] 3.78 10*6/uL Low 4.2-5.4 [facility] Comment on above: Performed By: #### L 100.0100 ####[facility] [address] [place], [address] RDW SD 54.6 fl High 35.1-43.9 [facility] Comment on above: Performed By: #### L 100.0100 ####[facility] [address] [place], [address] WBC (Bld) [#/Vol] 11.6 10*3/uL High 4.4-11.0 [facility] Comment on above: Performed By: #### L 100.0100 ####[facility] [address] [place], [address] CPK Total, Creatine Kinaseon 01-24-2025 CPK TOTAL 7461 U/L High 26-192 [facility] Comment on above: Performed By: #### L 501.3620, L500.4050 ####[facility] [address] [place], [address] Comprehensive Metabolic Prof ilon 03-31-2024 Albumin [Mass/Vol] 2.4 g/dL Low 3.2-5.0 [facility] Comment on above: Performed By: #### L 501.3620, L500.4050 ####[facility] [address] [place], [address] Albumin/Globulin [Mass ratio] 0.8 {ratio} Low 0.9-2.4 [facility] Comment on above: Performed By: #### L 501.3620, L500.4050 ####[facility] [address] [place], [address] ALK P 109 U/L Normal 45-117 [facility] Comment on above: Performed By: #### L 501.3620, L500.4050 ####[facility] [address] [place], [address] ALT [Catalytic activity/Vol] 84 U/L High 13-56 [facility] Comment on above: Performed By: #### L 501.3620, L500.4050 ####[facility] [address] [place], [address] AST [Catalytic activity/Vol] 263 U/L High 15-37 [facility] Comment on above: Performed By: #### L 501.3620, L500.4050 ####[facility] [address] [place], [address] Bilirubin [Mass/Vol] 1.00 mg/dL Normal 0.20-1.00 [facility] Comment on above: Result Comment: For patients on eltrombopag therapy, use of Dimension [place] TBIL is not recommended. Performed By: #### L 501.3620, L500.4050 ####[facility] [address] [place], [address] BUN/CRE 20.4 RATIO High 10-20 [facility] Comment on above: Performed By: #### L 501.3620, L500.4050 ####[facility] [address] [place], [address] CA,Total 8.2 mg/dL Low 8.5-10.1 [facility] Comment on above: Performed By: #### L 501.3620, L500.4050 ####[facility] [address] [place], [address] Chloride [Moles/Vol] 110 mmol/L High 98-107 [facility] Comment on above: Performed By: #### L 501.3620, L500.4050 ####[facility] [address] [place], [address] CO2 [Moles/Vol] 19.0 mmol/L Low 21.0-32.0 [facility] Comment on above: Performed By: #### L 501.3620, L500.4050 ####[facility] [address] [place], [address] Creatinine [Mass/Vol] 1.37 mg/dL High 0.55-1.02 [facility] Comment on above: Result Comment: The validity of the calculated GFR GFRAA in patients over70 years has not been determined. Clinical correlation isessential. Performed By: #### L 501.3620, L500.4050 ####[facility] [address] [place], [address] ECRCL 66.72 ml/min Normal [facility] Comment on above: Performed By: #### L 501.3620, L500.4050 ####[facility] [address] [place], [address] EST GFR - AA 51 mL/min Low >60 [facility] Comment on above: Result Comment: Afri can [place] GFR Calc Performed By: #### L 501.3620, L500.4050 ####[facility] [address] [place], [address] GAP 11 Normal 5-15 [facility] Comment on above: Performed By: #### L 501.3620, L500.4050 ####[facility] [address] [place], [address] GFR/1.73 sq M.predicted among non-blacks MDRD (S/P/Bld) [Vol rate/Area] 42 mL/min/{1.73_m2} Low >60 [facility] Comment on above: Result Comment: Non- GFR Calc Performed By: #### L 501.3620, L500.4050 ####[facility] [address] [place], [address] Globulin (S) [Mass/Vol] 3.2 g/dL Normal 2.2-4.2 [facility] Comment on above: Performed By: #### L 501.3620, L500.4050 ####[facility] [address] [place], [address] Glucose [Mass/Vol] 75 mg/dL Normal 74-106 [facility] Comment on above: Performed By: #### L 501.3620, L500.4050 ####[facility] [address] [place], [address] Potassium [Moles/Vol] 2.8 mmol/L Low 3.5-5.1 [facility] Comment on above: Performed By: #### L 501.3620, L500.4050 ####[facility] [address] [place], [address] Sodium [Moles/Vol] 139 mmol/L Normal 136-145 [facility] Comment on above: Performed By: #### L 501.3620, L500.4050 ####[facility] [address] [place], [address] T PROT 5.6 g/dL Low 6.4-8.2 [facility] Comment on above: Performed By: #### L 501.3620, L500.4050 ####[facility] [address] [place], [address] Urea nitrogen [Mass/Vol] 28 mg/dL High 7-18 [facility] Comment on above: Performed By: #### L 501.3620, L500.4050 ####[facility] [address] [place], [address] Magnesiumon 03-31-2024 Magnesium [Mass/Vol] 1.9 mg/dL Normal 1.6-2.6 [facility] Comment on above: Performed By: #### L 501.2300, L501.5200 ####[facility] [address] [place], [address] Phosphoruson 03-31-2024 Phosphate [Mass/Vol] 3.6 mg/dL Normal 2.5-4.9 [facility] Comment on above: Performed By: #### L 501.2300, L501.5200 ####[facility] [address] [place], [address] Potassiumon 03-31-2024 Potassium [Moles/Vol] 3.4 mmol/L Low 3.5-5.1 [facility] Comment on above: Performed By: #### L 501.5600 ####[facility] [address] [place], [address] Urine Cultureon 03-31-2024 URC Culture exhibits no growth. Normal [facility] Comment on above: Performed By: #### M 100.2200 ####[facility] [address] [place], [address] 12 Lead EKGon 03-30-2024 12 Lead EKG Normal [facility] Brain/Head without Contrasto n 03-30-2024 Brain/Head without Contrast Normal [facility] CBC W/Diff, Automatedon - HYPOCHROMASIA 1+ Normal [facility] Comment on above: Performed By: #### L 100.0100, L300.4310, L500.4050, L300.3900, L501.3620 ####[facility] [address] [place], [address] POLYCHROMASIA RARE Normal [facility] Comment on above: Performed By: #### L 100.0100, L300.4310, L500.4050, L300.3900, L501.3620 ####[facility] [address] [place], [address] Anisocytosis Ql (Bld) 2+ Normal [facility] Comment on above: Performed By: #### L 100.0100, L300.4310, L500.4050, L300.3900, L501.3620 ####[facility] [address] [place], [address] SMEAR COMMENT SCANNED Normal [facility] Comment on above: Performed By: #### L 100.0100, L300.4310, L500.4050, L300.3900, L501.3620 ####[facility] [address] [place], [address] CPK Total, Creatine Kinaseon 03-30-2024 CPK TOTAL 68322 U/L High 26-192 [facility] Comment on above: Performed By: #### L 100.0100, L300.4310, L500.4050, L300.3900, L501.3620 ####[facility] [address] [place], [address] Chest 1 View (Portable)on Chest 1 View (Portable) Normal [facility] Comprehensive Metabolic Prof ilon 03-30-2024 Albumin [Mass/Vol] 3.1 g/dL Low 3.2-5.0 [facility] Comment on above: Performed By: #### L 100.0100, L300.4310, L500.4050, L300.3900, L501.3620 ####[facility] [address] [place], [address] Albumin/Globulin [Mass ratio] 0.8 {ratio} Low 0.9-2.4 [facility] Comment on above: Performed By: #### L 100.0100, L300.4310, L500.4050, L300.3900, L501.3620 ####[facility] [address] [place], [address] ALK P 151 U/L High 45-117 [facility] Comment on above: Performed By: #### L 100.0100, L300.4310, L500.4050, L300.3900, L501.3620 ####[facility] [address] [place], [address] ALT [Catalytic activity/Vol] 93 U/L High 13-56 [facility] Comment on above: Performed By: #### L 100.0100, L300.4310, L500.4050, L300.3900, L501.3620 ####[facility] [address] [place], [address] AST [Catalytic activity/Vol] 304 U/L High 15-37 [facility] Comment on above: Performed By: #### L 100.0100, L300.4310, L500.4050, L300.3900, L501.3620 ####[facility] [address] [place], [address] Bilirubin [Mass/Vol] 1.70 mg/dL High 0.20-1.00 [facility] Comment on above: Result Comment: For patients on eltrombopag therapy, use of Dimension [place] TBIL is not recommended. Performed By: #### L 100.0100, L300.4310, L500.4050, L300.3900, L501.3620 ####[facility] [address] [place], [address] BUN/CRE 15.6 RATIO Normal 10-20 [facility] Comment on above: Performed By: #### L 100.0100, L300.4310, L500.4050, L300.3900, L501.3620 ####[facility] [address] [place], [address] CA,Total 9.6 mg/dL Normal 8.5-10.1 [facility] Comment on above: Performed By: #### L 100.0100, L300.4310, L500.4050, L300.3900, L501.3620 ####[facility] [address] [place], [address] Chloride [Moles/Vol] 105 mmol/L Normal 98-107 [facility] Comment on above: Performed By: #### L 100.0100, L300.4310, L500.4050, L300.3900, L501.3620 ####[facility] [address] [place], [address] CO2 [Moles/Vol] 22.0 mmol/L Normal 21.0-32.0 [facility] Comment on above: Performed By: #### L 100.0100, L300.4310, L500.4050, L300.3900, L501.3620 ####[facility] [address] [place], [address] Creatinine [Mass/Vol] 2.11 mg/dL High 0.55-1.02 [facility] Comment on above: Result Comment: The validity of the calculated GFR GFRAA in patients over70 years has not been determined. Clinical correlation isessential. Performed By: #### L 100.0100, L300.4310, L500.4050, L300.3900, L501.3620 ####[facility] [address] [place], [address] ECRCL 44.30 ml/min Normal [facility] Comment on above: Performed By: #### L 100.0100, L300.4310, L500.4050, L300.3900, L501.3620 ####[facility] [address] [place], [address] EST GFR - AA 31 mL/min Low >60 [facility] Comment on above: Result Comment: Afri can [place] GFR Calc Performed By: #### L 100.0100, L300.4310, L500.4050, L300.3900, L501.3620 ####[facility] [address] [place], [address] GAP 11 Normal 5-15 [facility] Comment on above: Performed By: #### L 100.0100, L300.4310, L500.4050, L300.3900, L501.3620 ####[facility] [address] [place], [address] GFR/1.73 sq M.predicted among non-blacks MDRD (S/P/Bld) [Vol rate/Area] 26 mL/min/{1.73_m2} Low >60 [facility] Comment on above: Result Comment: Non- GFR Calc Performed By: #### L 100.0100, L300.4310, L500.4050, L300.3900, L501.3620 ####[facility] [address] [place], [address] Globulin (S) [Mass/Vol] 4.0 g/dL Normal 2.2-4.2 [facility] Comment on above: Performed By: #### L 100.0100, L300.4310, L500.4050, L300.3900, L501.3620 ####[facility] [address] [place], [address] Glucose [Mass/Vol] 110 mg/dL High 74-106 [facility] Comment on above: Result Comment: Fast ing Glucose result from 100 to 125 mg/dLsuggests IMPAIRED HOMEOSTASIS per A.D.A. criteria. Performed By: #### L 100.0100, L300.4310, L500.4050, L300.3900, L501.3620 ####[facility] [address] [place], [address] Potassium [Moles/Vol] 3.1 mmol/L Low 3.5-5.1 [facility] Comment on above: Performed By: #### L 100.0100, L300.4310, L500.4050, L300.3900, L501.3620 ####[facility] [address] [place], [address] Sodium [Moles/Vol] 138 mmol/L Normal 136-145 [facility] Comment on above: Performed By: #### L 100.0100, L300.4310, L500.4050, L300.3900, L501.3620 ####[facility] [address] [place], [address] T PROT 7.1 g/dL Normal 6.4-8.2 [facility] Comment on above: Performed By: #### L 100.0100, L300.4310, L500.4050, L300.3900, L501.3620 ####[facility] [address] [place], [address] Urea nitrogen [Mass/Vol] 33 mg/dL High 7-18 [facility] Comment on above: Performed By: #### L 100.0100, L300.4310, L500.4050, L300.3900, L501.3620 ####[facility] [address] [place], [address] Emergency Department Summary on 03-30-2024 Emergency Department Summary Normal [facility] H AND P Exam - Hospitaliston 03-30-2024 H&P Exam - Hospitalist Normal [facility] Lactic Acidon 03-30-2024 Lactate [Moles/Vol] 1.3 mmol/L Normal 0.4-1.9 [facility] Comment on above: Order Comment: Y Performed By: #### L 503.6005, M200.1000, L509.7000 ####[facility] [address] [place], [place], [address] Partial Thromboplast Timeon 03-30-2024 aPTT Coag (Bld) [Time] 25.2 s Normal 24.1-36.2 [facility] Comment on above: Performed By: #### L 100.0100, L300.4310, L500.4050, L300.3900, L501.3620 ####[facility] [address] [place], [address] Pelvis 1 or 2 Viewson 2024 Pelvis 1 or 2 Views Normal [facility] Procalcitoninon 03-30-2024 Procalcitonin 0.24 ng/mL High 0.00-0.09 [facility] Comment on above: Result Comment: A [...] Performed By: #### L 503.6005, M200.1000, L509.7000 ####[facility] [address] [place], [address] Prothrombin Time w/INRon INR Coag (PPP) [Relative time] 1.2 {INR} Normal [facility] Comment on above: Performed By: #### L 100.0100, L300.4310, L500.4050, L300.3900, L501.3620 ####[facility] [address] [place], [address] PT Coag (PPP) [Time] 15.5 s High 11.7-14.9 [facility] Comment on above: Performed By: #### L 100.0100, L300.4310, L500.4050, L300.3900, L501.3620 ####[facility] [address] [place], [address] Spine Cervical without Contr ason 03-30-2024 Spine Cervical without Contras Normal [facility] Tibia Fibula 2 Viewson 03-30 Tibia Fibula 2 Views Normal [facility] Urinalysis, Completeon 03-30 RBC 0-5 SEEN Normal 0-5 [facility] Comment on above: Order Comment: CLEAN CATCH Performed By: #### L 400.0001 ####[facility] [address] [place], [address] BACTERIA RARE Normal None Seen [facility] Comment on above: Order Comment: CLEAN CATCH Performed By: #### L 400.0001 ####[facility] [address] [place], [address] WBC 5-10 SEEN Normal 0-5 [facility] Comment on above: Order Comment: CLEAN CATCH Performed By: #### L 400.0001 ####[facility] [address] [place], [address] EPI,SQUAMOUS 0-5 SEEN Normal 5-10 [facility] Comment on above: Order Comment: CLEAN CATCH Performed By: #### L 400.0001 ####[facility] [address] [place], [address] Mucus Ql (Urine sed) 0 SEEN Normal [facility] Comment on above: Order Comment: CLEAN CATCH Performed By: #### L 400.0001 ####[facility] [address] [place], [place], [address] XR Foot - left AP and Latera l and obliqueon 03-28-2024 IMPRESSION: See find ings Network Security Analyst: [email or web address] Transcribe Date/Time: Mar 28 2024 4:08P Dictated by : MAHOGANY GATES MD This examination was interpreted and the report reviewed and electronically signed by: MAHOGANY GATES MD on Mar 28 2024 4:12PM [facility] DIVISION OF RADIOLOGY * * *Final [...] fracture or dislocation. DIVISION OF RADIOLOGY Provider, [facility] Kamlesh Diamond - 03/28/2024 * * *Final Report* * [...] fracture or dislocation. IMPRESSION IMPRESSION: See findings Network Security Analyst: [email or web address] Transcribe Date/Time: Mar 28 2024 4:08P Dictated by : MAHOGANY GATES MD This examination was interpreted and the report reviewed and electronically signed by: MAHOGANY GATES MD on Mar 28 2024 4:12PM EST [facility] XR Foot - left AP and Latera l and obliqueOrdered By: Ccf Provider on 03-28-2024 [facility] Emergency Department Summary on 03-26-2024 Emergency Department Summary Normal [facility] Shoulder min 2 Viewson 03-26 Shoulder min 2 Views Normal [facility] Wrist min 3 Viewson 03-26-19 25 Wrist min 3 Views Normal [facility] CNOVon 03-24-2024 CNOV Office Visit (PODIWS ) THUY WHITE ([id number]) 1965 F Date Time Provider Department 03/24/24 11:00 AM ZULMA SOL PODIWS During your visit today, [...] 2004 with panic attacks Herpes genitalis Hypoparathyroidism ([facility]) parathyroid implant Left forearm Hypothyroidism 09/30/2018 IFG (impaired fasting glucose) 05/08/2014 Impaired fasting glucose Insomnia 03/16/2013 Iron deficiency anemia Irritable bowel syndrome 1998 diarrhea prone, dairy exacerbates MEN 1 (multiple endocrine neoplasia) ([facility] Morbid obesity ([facility]) 2007 s/p sleeve Dr Dale Obstructive sleep apnea fair complaince with CPAP Primary hyperparathyroidism ([facility]) 3 1/2 gland parathyroidectomy Renal insufficiency Sternoclavicular [...] Swelling R (more content not included)... Normal [facility] XR FOOT 3V AP/LAT/OBL LTon 0 [...] acute fracture or dislocation. IMPRESSION: See findings Network Security Analyst: [email or web address] Transcribe Date/Time: Mar 28 2024 4:08P Dictated by : MAHOGANY GATES MD This examination was interpreted and the report reviewed and electronically signed by: MAHOGANY GATES MD on Mar 28 2024 4:12PM EST [id number] Normal [facility] XR Foot - left AP and Latera l and obliqueon 03-24-2024 Radiology Study observation (narrative) [facility] Emergency Department Summary on 02-22-2024 Emergency Department Summary Normal [facility] Shoulder min 2 Viewson 02-21 Shoulder min 2 Views Normal [facility] 12 Lead EKGon 02-18-2024 12 Lead EKG Normal [facility] Bedside Glucoseon 02-18-2024 FINGERSTICK GLU 136 mg/dL High 74-106 [facility] Comment on above: Result Comment: JACQUELYN KIM OF PATIENT CARE PER NURSING PROTOCOL Performed By: #### L 501.080 ####[facility] [address] [place], [address] CBC W/Diff, Automatedon 12- ACANTHOCYTE RARE Normal [facility] Comment on above: Performed By: #### L 503.6005, L100.0100, L500.4050 ####[facility] [address] [place], [address] Anisocytosis Ql (Bld) 2+ Normal [facility] Comment on above: Performed By: #### L 503.6005, L100.0100, L500.4050 ####[facility] [address] [place], [address] MICROCYTIC 2+ Normal [facility] Comment on above: Performed By: #### L 503.6005, L100.0100, L500.4050 ####[facility] [address] [place], [address] SCHISTOCYTES RARE Normal [facility] Comment on above: Performed By: #### L 503.6005, L100.0100, L500.4050 ####[facility] [address] [place], [address] TARGET CELLS RARE Normal [facility] Comment on above: Performed By: #### L 503.6005, L100.0100, L500.4050 ####[facility] [address] [place], [address] PLT EST SLT INC Normal ADEQ [facility] Comment on above: Performed By: #### L 503.6005, L100.0100, L500.4050 ####[facility] [address] [place], [address] SMEAR COMMENT SCANNED Normal [facility] Comment on above: Performed By: #### L 503.6005, L100.0100, L500.4050 ####[facility] [address] [place], [address] Comprehensive Metabolic [facility] ilon 02-18-2024 Albumin [Mass/Vol] 3.3 g/dL Normal 3.2-5.0 [facility] Comment on above: Performed By: #### L 503.6005, L100.0100, L500.4050 ####[facility] [address] [place], [address] Albumin/Globulin [Mass ratio] 0.8 {ratio} Low 0.9-2.4 [facility] Comment on above: Performed By: #### L 503.6005, L100.0100, L500.4050 ####[facility] [address] [place], [address] ALK P 102 U/L Normal 45-117 [facility] Comment on above: Performed By: #### L 503.6005, L100.0100, L500.4050 ####[facility] [address] [place], [address] ALT [Catalytic activity/Vol] 13 U/L Normal 13-56 [facility] Comment on above: Performed By: #### L 503.6005, L100.0100, L500.4050 ####[facility] [address] [place], [address] AST [Catalytic activity/Vol] 14 U/L Low 15-37 [facility] Comment on above: Performed By: #### L 503.6005, L100.0100, L500.4050 ####[facility] [address] [place], [address] Bilirubin [Mass/Vol] 0.60 mg/dL Normal 0.20-1.00 [facility] Comment on above: Result Comment: For patients on eltrombopag therapy, use of Dimension [place] TBIL is not recommended. Performed By: #### L 503.6005, L100.0100, L500.4050 ####[facility] [address] [place], [address] BUN/CRE 9.8 RATIO Low 10-20 [facility] Comment on above: Performed By: #### L 503.6005, L100.0100, L500.4050 ####[facility] [address] [place], [address] CA,Total 8.4 mg/dL Low 8.5-10.1 [facility] Comment on above: Performed By: #### L 503.6005, L100.0100, L500.4050 ####[facility] [address] [place], [address] Chloride [Moles/Vol] 100 mmol/L Normal 98-107 [facility] Comment on above: Performed By: #### L 503.6005, L100.0100, L500.4050 ####[facility] [address] [place], [address] CO2 [Moles/Vol] 26.0 mmol/L Normal 21.0-32.0 [facility] Comment on above: Performed By: #### L 503.6005, L100.0100, L500.4050 ####[facility] [address] [place], [address] Creatinine [Mass/Vol] 1.64 mg/dL High 0.55-1.02 [facility] Comment on above: Result Comment: The validity of the calculated GFR GFRAA in patients over70 years has not been determined. Clinical correlation isessential. Performed By: #### L 503.6005, L100.0100, L500.4050 ####[facility] [address] [place], [address] ECRCL 55.90 ml/min Normal [facility] Comment on above: Performed By: #### L 503.6005, L100.0100, L500.4050 ####[facility] [address] [place], [address] EST GFR - AA 41 mL/min Low >60 [facility] Comment on above: Result Comment: Afri can [place] GFR Calc Performed By: #### L 503.6005, L100.0100, L500.4050 ####[facility] [address] [place], [address] GAP 10 Normal 5-15 [facility] Comment on above: Performed By: #### L 503.6005, L100.0100, L500.4050 ####[facility] [address] [place], [address] GFR/1.73 sq M.predicted among non-blacks MDRD (S/P/Bld) [Vol rate/Area] 34 mL/min/{1.73_m2} Low >60 [facility] Comment on above: Result Comment: Non- GFR Calc Performed By: #### L 503.6005, L100.0100, L500.4050 ####[facility] [address] [place], [address] Globulin (S) [Mass/Vol] 3.9 g/dL Normal 2.2-4.2 [facility] Comment on above: Performed By: #### L 503.6005, L100.0100, L500.4050 ####[facility] [address] [place], [address] Glucose [Mass/Vol] 141 mg/dL High 74-106 [facility] Comment on above: Result Comment: Fast ing Glucose result greater than or equal to 126 mg/dLsuggests DIABETES MELLITUS per A.D.A. criteria. Performed By: #### L 503.6005, L100.0100, L500.4050 ####[facility] [address] [place], [address] Potassium [Moles/Vol] 3.1 mmol/L Low 3.5-5.1 [facility] Comment on above: Performed By: #### L 503.6005, L100.0100, L500.4050 ####[facility] [address] [place], [address] Sodium [Moles/Vol] 136 mmol/L Normal 136-145 [facility] Comment on above: Performed By: #### L 503.6005, L100.0100, L500.4050 ####[facility] [address] [place], [address] T PROT 7.2 g/dL Normal 6.4-8.2 [facility] Comment on above: Performed By: #### L 503.6005, L100.0100, L500.4050 ####[facility] [address] [place], [address] Urea nitrogen [Mass/Vol] 16 mg/dL Normal 7-18 [facility] Comment on above: Performed By: #### L 503.6005, L100.0100, L500.4050 ####[facility] [address] [place], [address] Emergency Department Summary on 02-18-2024 Emergency Department Summary Normal [facility] L501.5425on 02-18-2024 TROPONIN-I HS 4 pg/mL Normal 3.0-54.0 [facility] Comment on above: Order Comment: 1Y Result Comment: Janelle hughes Note: New Test Units and Gender Specific Reference Ranges. For more information see Policy Stat Procedure [place] High Sensitivity Troponin (TNIH) and attachments. Performed By: #### L 501.5402 ####[facility] [address] [place], [address] Lactic Acidon 02-18-2024 Lactate [Moles/Vol] 1.9 mmol/L Normal 0.4-1.9 [facility] Comment on above: Order Comment: Y Performed By: #### L 503.6005, L100.0100, L500.4050 ####[facility] [address] [place], [address] Urinalysis, Completeon 02-17 CAST,HYALINE 0-5 SEEN Normal 0-5 [facility] Comment on above: Order Comment: CLEAN CATCH Performed By: #### L 400.0001 ####[facility] [address] [place], [address] EPI,SQUAMOUS 0-5 SEEN Normal 5-10 [facility] Comment on above: Order Comment: CLEAN CATCH Performed By: #### L 400.0001 ####[facility] [address] [place], [address] Mucus Ql (Urine sed) 1+ /hpf Normal [facility] Comment on above: Order Comment: CLEAN CATCH Performed By: #### L 400.0001 ####[facility] [address] [place], [address] WBC 0-5 SEEN Normal 0-5 [facility] Comment on above: Order Comment: CLEAN CATCH Performed By: #### L 400.0001 ####[facility] [address] [place], [address] BACTERIA 0 SEEN Normal None Seen [facility] Comment on above: Order Comment: CLEAN CATCH Performed By: #### L 400.0001 ####[facility] [address] [place], [address] RBC 0 SEEN Normal 0-5 [facility] Comment on above: Order Comment: CLEAN CATCH Performed By: #### L 400.0001 ####[facility] [address] [place], [address] Internal Medicine Office Vis iton 01-31-2024 Internal Medicine Office Visit Normal [facility] Urinalysis, Completeon 01-30 EPI,SQUAMOUS 0-5 SEEN Normal 5-10 [facility] Comment on above: Order Comment: GARDENIA CTOR TO SPECIFY Performed By: #### L 400.0001 ####[facility] [address] [place], [address] BACTERIA 0 SEEN Normal None Seen [facility] Comment on above: Order Comment: GARDENIA CTOR TO SPECIFY Performed By: #### L 400.0001 ####[facility] [address] [place], [address] Mucus Ql (Urine sed) 0 SEEN Normal [facility] Comment on above: Order Comment: GARDENIA CTOR TO SPECIFY Performed By: #### L 400.0001 ####[facility] [address] [place], [address] RBC 0 SEEN Normal 0-5 [facility] Comment on above: Order Comment: GARDENIA CTOR TO SPECIFY Performed By: #### L 400.0001 ####[facility] [address] [place], [address] WBC 0 SEEN Normal 0-5 [facility] Comment on above: Order Comment: GARDENIA CTOR TO SPECIFY Performed By: #### L 400.0001 ####[facility] [address] [place], [address] C peptide Parviz-Danika 01-23 C peptide [Mass/Vol] 6.3 ng/mL High 1.1-4.4 [facility] Comment on above: Order Comment: Speci men Type: BLOOD SPECIMEN Ordering Facility: [facility] Address: [address] [place] [address] Performed By: #### 1 986-9 #### [facility] CLIA [id number] [address] [place], [place] [address] [address] [address] [place] C peptide [Mass/Vol]on 01-23 Interpretation and review of laboratory results Abnormal [facility] C-PEPTIDE BLDon 01-24-2024 C peptide [Mass/Vol] 6.3 ng/mL High 1.1 - 4 .4 ng/mL [facility] CNOVon 01-24-2024 CNOV Office Visit (ENSUMN ) THUY WHITE ([id number]) 1965 F Date Time Provider Department 01/24/24 11:45 AM PETER SIGALA During your visit today, we recorded the following information about you: Pulse Blood pressure Weight 106/minute 123/53 142.5 kg Crystal Caputo OCCA 01/24/2024 10:55 AM Signed Thank you for choosing the [facility] Department of Endocrinology, Diabetes and Metabolism. Did you know that you need to call 48 hours in advance of your scheduled visit, if you are unable to make your appointment? The Endocrinology and Metabolism [place] thanks you for your commitment, because patients not showing to their appointment results in a lost opportunity for patients to receive [facility] health care at the [facility]. To Cancel an appointment, please choose one of the following: - Call the Appointment Call Center at [phone] - From [employer], Go to Appointments - Cancel Appts If cancelling, consider your need to reschedule to prevent further delays in your care. To Schedule an appointment, please choose one of the following: - Call the Appointment Call Center at [phone] - From [employer], Go to Appointments - Request an Appt [...] [1465] Primary Visit Diagnosis:MEN1 (multiple endocrine neoplasia) ([facility]) [E31.21] Other Visit Diagnosis:Obesity, Class III, BMI 40-49.9 (morbid obesity) ([facility]) [E66.01] Prescriptions as of 01/24/2024 - albuterol [...] by mo (more content not included)... Normal [facility] Calcium SerPl-mCncon 024 Calcium [Mass/Vol] 9.9 mg/dL Normal 8.5-10.2 [facility] Comment on above: Order Comment: Speci men Type: BLOOD SPECIMEN Ordering Facility: [facility] Address: [address] [place] [address] Performed By: #### 1 7861-6, 2842-3, 89950-9, 2777-1 #### [facility] CLIA [id number] [address] [place], [place] [address] [id number] [place] [address] [place] CgA SerPl-mCncon 01-24-2024 Chromogranin A [Mass/Vol] 278.6 ng/mL High <187.0 [facility] Comment on above: Order Comment: Speci men Type: BLOOD SPECIMEN Ordering Facility: [facility] Address: [address] [place] [address] Result Comment: The Chromogranin A test was performed using the BRAHMS CgA II KRYPTOR method. Results obtained with different assay methods or kits cannot be used interchangeably. Performed By: #### 1 7861-6, 2842-3, 52009-3, 2776-1 #### [facility] CLIA [id number] [address] [place] [address] [place] GLUCOSE, FASTINGon 4 Glucose post fast [Mass/Vol] 110 mg/dL High 74 - 99 mg/dL [facility] Comment on above: [place] Diabetes As sociation guidelines state that a diabetes mellitus diagnosis is preliminarily made when the fasting plasma glucose meets or exceeds 126 mg/dL. In the absence of unequivocal hyperglycemia, results should be confirmed with repeat testing. Patients are at increased risk for diabetes mellitus (prediabetes) when the fasting glucose is 100 to 125 mg/dL. Gastrin SerPl-mCncon 2 024 Gastrin [Mass/Vol] 722.0 pg/mL High <115.0 [facility] Comment on above: Order Comment: Phi spaulding Type: BLOOD SPECIMEN Ordering Facility: [facility] Address: [address] [place] [address] Result Comment: The Gastrin test was performed using the Siemens Immulite chemiluminescent immunometric method. Results obtained with different assay methods or kits cannot be used interchangeably. Performed By: #### 1 7861-6, 2842-3, 26772-5, 2776-1 #### [facility] CLIA [id number] [address] [place] [address] [place] Glucose p fast SerPl-mCncon 4 Glucose post fast [Mass/Vol] 110 mg/dL High 74-99 [facility] Comment on above: Order Comment: Phi spaulding Type: BLOOD SPECIMEN Ordering Facility: [facility] Address: [address] [place] [address] Result Comment: [place] Diabetes Association guidelines state that a diabetes mellitus diagnosis is preliminarily made when the fasting plasma glucose meets or exceeds 126 mg/dL. In the absence of unequivocal hyperglycemia, results should be confirmed with repeat testing. Patients are at increased risk for diabetes mellitus (prediabetes) when the fasting glucose is 100 to 125 mg/dL. Performed By: #### 1 7861-6, 2842-3, 88160-7, 7-1 #### [facility] CLIA [id number] [address] [place] [address] [place] Glucose post fast [Mass/Vol] on 01-24-2024 Interpretation and review of laboratory results Abnormal [facility] INSULIN ASSAY BLOODon 2023 Insulin Qn 14.8 u[IU]/mL 3.0 - 25.0 mU/L [facility] INSULIN LIK GR FAC Ion 01-23 INSULIN LIK GR FAC 1 122 ng/mL Normal 47-236 [facility] Comment on above: Order Comment: Speci men Type: BLOOD SPECIMEN Ordering Facility: [facility] Address: [address] [place] [address] Performed By: #### 1 7861-6, 2842-3, , 2776- #### [facility] CLIA [id number] [address] [place] [address] [place] Insulin Qnon 01-24-2024 Interpretation and review of laboratory results Normal [facility] Insulin SerPl-aCncon 024 Insulin Qn 14.8 u[IU]/mL Normal 3.0-25.0 [facility] Comment on above: Order Comment: Speci men Type: BLOOD SPECIMEN Ordering Facility: [facility] Address: [address] [place] [address] Performed By: #### 1 7861-6, 2842-3, 31461-2, 2776- #### [facility] CLIA [id number] [address] [place] [address] [place] Magnesium SerPl-mCncon 01-23 Magnesium [Mass/Vol] 1.8 mg/dL Normal 1.7-2.3 [facility] Comment on above: Order Comment: Speci men Type: BLOOD SPECIMEN Ordering Facility: [facility] Address: [address] [place] [address] Performed By: #### 1 7861-6, 2842-3, 31355-6, 2777-1 #### [facility] CLIA [id number] [address] [place] [address] [place] PANCREATIC POLYPEPTIDEon PANCREATIC POLYPEPTIDE 3970 pg/mL High 0-435 [facility] Comment on above: Order Comment: Speci men Type: BLOOD SPECIMEN Ordering Facility: [facility] Address: [address] [place] [address] Result Comment: Specimen diluted and results confirmed. INTERPRETIVE INFORMATION: Pancreatic Polypeptide This test was developed and its performance characteristics determined by [facility]. It has not been cleared or approved by the US Food and Drug Administration. This test was performed in a CLIA certified laboratory and is intended for clinical purposes. Performed By: [facility] [address] [place] [address] Dental Insurance Coordinator: Jeronimo Lama MD, PhD CLIA Number: [id number] Performed By: #### P ANPOL #### [facility] CLIA [id number] [address] [place] [address] PROINSULIN INTACT BLOODon PROINSULIN INTACT BLOOD 5.2 pmol/L Normal <=7.2 [facility] Comment on above: Order Comment: Speci men Type: BLOOD SPECIMEN Ordering Facility: [facility] Address: [address] [place] [address] Result Comment: Perf ormed By: [facility] [address] [place] [address] Dental Insurance Coordinator: Jeronimo Lama MD, PhD CLIA Number: [id number] Performed By: #### 1 7861-6, 2842-3, 51226-9, 2777-1 #### [facility] CLIA [id number] [address] [place] [address] [place] PTH-Intact SerPl-mCncon 11- Parathyrin.intact [Mass/Vol] pg/mL Low 15-65 [facility] Comment on above: Order Comment: Speci men Type: BLOOD SPECIMEN Ordering Facility: [facility] Address: [address] [place] [address] Result Comment: Resu lt rechecked. Performed By: #### 1 7861-6, 2842-3, 37487-1, 2776- #### [facility] CLIA [id number] [address] [place] [address] [place] Phosphate SerPl-mCncon 01-23 Phosphate [Mass/Vol] 4.2 mg/dL Normal 2.7-4.8 [facility] Comment on above: Order Comment: Speci men Type: BLOOD SPECIMEN Ordering Facility: [facility] Address: [address] [place] [address] Performed By: #### 1 7861-6, 2842-3, , 2776-03 #### [facility] CLIA [id number] [address] [place] [address] [place] Prolactin SerPl-mCncon 01-23 Prolactin [Mass/Vol] 12.7 ng/mL Normal 4.4-33.8 [facility] Comment on above: Order Comment: Speci men Type: BLOOD SPECIMEN Ordering Facility: [facility] Address: [address] [place] [address] Result Comment: Prol actin test is performed using the [employer] Electrochemiluminescence Immunoassay method. Results obtained with different methods or kits cannot be used interchangeably. Performed By: #### 1 7861-6, 2842-3, 22454-9, 2776-03 #### [facility] CLIA [id number] [address] [place] [address] [place] SOMATOSTATIN BLDon 4 SOMATOSTATIN <21 Normal ADULT: < OR = 30 [facility] Comment on above: Order Comment: Speci men Type: BLOOD SPECIMEN Ordering Facility: [facility] Address: [address] [place] [address] Result Comment: This test was developed and its analytical performance characteristics have been determined by [facility]. It has not been cleared or approved by FDA. This assay has been validated pursuant to the CLIA regulations and is used for clinical purposes. TEST PERFORMED AT: [id number] [facility] [address] [address] Safety Belt Installer: Stephan Cardona MD, PhD, GEOFFREY Performed By: #### 1 7861-6, 2842-3, 27152-1, 2777-1 #### [facility] CLIA [id number] [address] [place] [address] [place] VASOACTIVE INTESTINAL POLYPE PTIDE (VIP), PLASMAon 01-24-2024 VASOACTIVE INTESTINAL POLYPEPTIDE 20.0 pg/mL Normal 0.0-89.1 [facility] Comment on above: Order Comment: Speci men Type: BLOOD SPECIMEN Ordering Facility: [facility] Address: [address] [place] [address] Result Comment: This test was developed and its performance characteristics determined by [facility]. It has not been cleared or approved by the U.S. Food and Drug Administration. This test was performed in a CLIA-certified laboratory and is intended for clinical purposes. Performed By: [facility] [address] [place] [address] Dental Insurance Coordinator: Jeronimo Lama MD, PhD CLIA Number: [id number] Performed By: #### 1 7861-6, 2842-3, 01822-8, 2776-1 #### [facility] CLIA [id number] [address] [place] [address] [place] Comprehensive metabolic 2000 panelon 07-09-2023 Albumin [Mass/Vol] 4.0 g/dL 3.9 - 4.9 g/dL [facility] ALP [Catalytic activity/Vol] 91 U/L 34 - 123 U/L [facility] ALT [Catalytic activity/Vol] 6 U/L Low 7 - 38 U/L [facility] Anion gap [Moles/Vol] 14 mmol/L 9 - 18 mmol/L [facility] AST [Catalytic activity/Vol] 14 U/L 13 - 35 U/L [facility] Bilirubin [Mass/Vol] 0.3 mg/dL 0.2 - 1 .3 mg/dL [facility] Calcium [Mass/Vol] 7.6 mg/dL Low 8.5 - 10. 2 mg/dL [facility] Chloride [Moles/Vol] 100 mmol/L 97 - 10 5 mmol/L [facility] CO2 [Moles/Vol] 26 mmol/L 22 - 30 mmol/L [facility] Creatinine [Mass/Vol] 1.57 mg/dL High 0.58 - 0.96 mg/dL [facility] GFR/1.73 sq M.predicted among non-blacks MDRD (S/P/Bld) [Vol rate/Area] 38 mL/min/{1.73_m2} Low - PINF [facility] Comment on above: Estimated Glomerular Filtration [...] [Mass/Vol] 83 mg/dL 74 - 99 mg/dL [facility] Comment on above: The [place] Diabete s Association (ADA) provides guidance for [...] Standards of Medical Care in Diabetes 2016, [place] Diabetes Association. Diabetes Care. 2016.39(Suppl 1). Interpretation and review of laboratory results Abnormal [facility] Potassium [Moles/Vol] 3.5 mmol/L Low 3.7 - 5.1 mmol/L [facility] Protein [Mass/Vol] 6.9 g/dL 6.3 - 8.0 g/dL [facility] Sodium [Moles/Vol] 140 mmol/L 136 - 144 mmol/L [facility] Urea nitrogen [Mass/Vol] 23 mg/dL High 7 - 21 mg/dL [facility] XR Foot - right AP and Later al and obliqueon 06-22-2023 IMPRESSION: There is a stable vertical oblique lucency in the distal fifth metatarsal shaft dating back to 2020 favoring a nutrient channel in the absence of history of point tenderness in this region. Correlation with physical examination is requested. Network Security Analyst: PSCB Transcribe Date/Time: Jun 22 2023 8:22A Dictated by : CHASE JOHNSTON MD This examination was interpreted and the report reviewed and electronically signed by: CHASE OJHNSTON MD on Jun 22 2023 8:26AM [facility] DIVISION OF RADIOLOGY * * *Final [...] dorsal hypertrophic spurring. DIVISION OF RADIOLOGY Provider, [facility] [...] region. Correlation with physical examination is requested. Network Security Analyst: [email or web address] Transcribe Date/Time: Jun 22 2023 8:22A Dictated by : CHASE JOHNSTON MD This examination was interpreted and the report reviewed and electronically signed by: CHASE JOHNSTON MD on Jun 22 2023 8:26AM EST [facility] Radiology Study observation (narrative) [facility] XR Foot - right AP and Later al and obliqueOrdered By: Ccf Provider on 06-22-[address] [facility] [address] PANCREAS W IVCONon 2022 [facility] CNPNon 06-25-2020 CNPN Telephone (MEPRAD) LALITHUY ORDONEZ ([id number]) 1965 F Date Time Provider Department 06/25/20 GRAYSON SOLORZANO During your visit today, we recorded the following information about you: Grayson Solorzano MD, MD 06/25/2020 11:19 AM Signed Please tell her to Start potassium 20 mEq daily Increase levothyroxine to 0.1 mg daily Start atorvastatin 20 mg daily Repeat fasting labs again in 08/2020, orders in [facility]. 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 Normal [facility] No Panel InformationOrdered By: Ccf Provider on 06-21-2020 [facility] No Panel Informationon 06-21 Radiology Study observation (narrative) [facility] XR Ankle - right AP and [...] of the distal right fifth metatarsal shaft Network Security Analyst: [facility] Transcribe Date/Time: Jun 21 2020 2:20P Dictated by : AMANDA MCKEON MD This examination was interpreted and the report reviewed and electronically signed by: AMANDA MCKEON MD on Jun 21 2020 2:22PM [facility] DIVISION OF RADIOLOGY Provider, [facility] - 06/21/2020 * * *Final Report* * [...] of the distal right fifth metatarsal shaft Network Security Analyst: [facility] Transcribe Date/Time: Jun 21 2020 2:20P Dictated by : AMANDA MCKEON MD This examination was interpreted and the report reviewed and electronically signed by: AMANDA MCKEON MD on Jun 21 2020 2:22PM EST [facility] XR Foot - right AP and [...] of the distal right fifth metatarsal shaft Network Security Analyst: [facility] Transcribe Date/Time: Jun 21 2020 2:20P Dictated by : AMANDA MCKEON MD This examination was interpreted and the report reviewed and electronically signed by: AMANDA MCKEON MD on Jun 21 2020 2:22PM [facility] DIVISION OF RADIOLOGY Provider, [facility] [...] of the distal right fifth metatarsal shaft Network Security Analyst: [email or web address] Transcribe Date/Time: Jun 21 2020 2:20P Dictated by : AMANDA MCKEON MD This examination was interpreted and the report reviewed and electronically signed by: AMANDA MCKEON MD on Jun 21 2020 2:22PM EST [facility] MAMMOGRAM SCREENING BILAT ERAL W/TOMOon 07-27-2017 MA MAMMOGRAM SCREENING BILATERAL W/CELESTE ORIGINAL FROM: [place] [address] PROCEDURE FOR: THUY MaloneyNaina LALI [address] [place] [address] Home: PID#: [id number] Exam#: [id number] : 1965 Age: 52 TO: GABRIELA MAY MD [address] [facility] [address] [place] [address] #[id number] DIGITAL SCREENING MAMMOGRAM 3D/2D WITH CAD WITH MEDIOLATERAL OBLIQUE CRANIOCAUDAL: 07/27/2017 Comparison is made to exams dated: 09/26/2015 mammogram and 10/07/2011 mammogram - [facility]. There are scattered fibroglandular elements in both breasts. Current study was also evaluated with a Computer Aided Detection (CAD) system. No significant masses, calcifications, or other findings are seen in either breast. There has been no significant interval change. IMPRESSION: NEGATIVE There is no mammographic evidence of malignancy. A 1 year screening mammogram is recommended. LETTY osborn/simran:07/30/2017 18:28:23 Sterile Instrument Technician: NUBIA Alvarez)(Catherine), [facility] letter sent: Normal BI-RADS 1&2 Mammogram BI-RADS: 1 Negative Normal [facility] [place] HPVon 07-21-2017 HPV Interp See Interp HPVN [facility] [place] Comment on above: Order Comment: Order placed by AP_HPV_ORDER rule from [id number] Result Comment: High Risk HPV Typing Positive: [...] HPOS Performed By: #### H PV #### [place] [address] HPV Source Cervix Normal [facility] [place] Comment on above: Order Comment: Order placed by AP_HPV_ORDER rule from [id number] Performed By: #### H PV #### [place] [address] Measurement Technician Cytology Reporton 2017 Measurement Technician Cytology Report . Pathology Reports Accession: Collected Date/Time: Received Date/Time: Pathologist: [id number] 07/14/2017 11:24 EDT 07/15/2017 18:00 EDT Measurement Technician Cytology Report SPECIMEN: Specimen Description: Liquid Prep w/ HPV Specimen: Cervical/Endocervical Screening or Diagnostic: Screening RELEVANT HISTORY: LMP: Not Given [id number] SPECIMEN ADEQUACY: SATISFACTORY FOR EVALUATION ENDOCERVICAL/TRANSFORMATION AL ZONE COMPONENT PRESENT INTERPRETATION/RESULTS: NEGATIVE FOR INTRAEPITHELIAL LESION OR MALIGNANCY ADJUNCTIVE TESTING: HIGH RISK HPV DNA TESTING ORDERED, REPORT TO FOLLOW UNDER SEPARATE COVER Electronically Signed by Pathology report verified by [facility]. Screened by: LS Electronically signed by Helene HANSON (ASCP) Sign-Out Date: 07/20/2017 09:24 Performing Lab: [facility], [address] [place] [address] States Disclaimer The Pap test is a screening test for cervical cancer. As evidenced by published data, it is subject to both inherent false negative and false positive results. Your patient's results should be interpreted in context with pertinent clinical history including gynecological examination. Normal [facility] [place] Comment on above: Performed By: #### G YCR #### [place] [address] Patient Summary Documentson 09-19-2016 Patient Summary Documents Normal [facility] XR FOOT MINIMUM 3 VIEWS RIGH Ton 09-19-2016 XR FOOT MINIMUM 3 VIEWS RIGHT ORIGINALRight foot 3 views HISTORY: Lateral pain, trauma COMPARISON: None There is an oblique fracture at the distal third of the fifth metatarsal. This is nondisplaced. No additional fracture or dislocation seen. Small plantar calcaneal spur noted. Interpreted By: José Miguel Hallman MDPreliminary Report By: José Miguel Hallman MDElectronically Signed By: José Miguel Hallman MD Dictated Date: 09/19/2016 9:32:18 AM Prelim Date: 09/19/2016 9:32:18 AM Sign Date: 09/19/2016 9:32:53 AM Normal [facility] Vital Signs Date Time Vital Sign Value Performing Clinician Albin carroll 01-24-2024 10:59-0500 Body mass index (BMI) [Ratio] 49.2 kg/m2 Peter Sigala MD Work Phone: [facility] 01-24-2024 10:59-0500 Body weight 142.5 kg Peter Sigala MD Work Phone: [facility] 01-24-2024 10:59-0500 Diastolic blood pressure 53 mm[Hg] Peter Sigala MD Work Phone: [facility] 01-24-2024 10:59-0500 Heart rate 106 /min Pteer Sigala MD Work Phone: [facility] 01-24-2024 10:59-0500 Systolic blood pressure 123 mm[Hg] Peter Sigala MD Work Phone: [facility] 06-22-2023 07:43-0400 Body temperature 97.2 [degF] Krislyn Aberegg PA Work Phone: [facility] 06-22-2023 07:43-0400 Body weight 144.3 kg Krislyn Aberegg PA Work Phone: [facility] 06-22-2023 07:43-0400 Diastolic blood pressure 76 mm[Hg] Krislyn Aberegg PA Work Phone: [facility] 06-22-2023 07:43-0400 Heart rate 91 /min Krislyn Aberegg PA Work Phone: [facility] 06-22-2023 07:43-0400 Respiratory rate 18 /min Krislyn Aberegg PA Work Phone: [facility] 06-22-2023 07:43-0400 SaO2% (BldA) [Mass fraction] 96 % Krislyn Aberegg PA Work Phone: [facility] 06-22-2023 07:43-0400 Systolic blood pressure 118 mm[Hg] Krislyn Aberegg PA Work Phone: [facility] 10-09-2022 09:56-0400 Body temperature 98.2 [degF] Nallely Jose PATIENT SAFETY TECH.INDUSTRIAL ECONOMICS PROFESSOR Work Phone: [facility] 10-09-2022 09:56-0400 Body weight 134.26 kg Nallely Jose PATIENT SAFETY TECH.INDUSTRIAL ECONOMICS PROFESSOR Work Phone: [facility] 10-09-2022 09:56-0400 Diastolic blood pressure 64 mm[Hg] Nallely Jose PATIENT SAFETY TECH.INDUSTRIAL ECONOMICS PROFESSOR Work Phone: [facility] 10-09-2022 09:56-0400 Heart rate 99 /min Nallely Jose PATIENT SAFETY TECH.INDUSTRIAL ECONOMICS PROFESSOR Work Phone: [facility] 10-09-2022 09:56-0400 Respiratory rate 18 /min Nallely Jose PATIENT SAFETY TECH.INDUSTRIAL ECONOMICS PROFESSOR Work Phone: [facility] 10-09-2022 09:56-0400 SaO2% (BldA) [Mass fraction] 94 % Nallely Garcia PATIENT SAFETY TECH.INDUSTRIAL ECONOMICS PROFESSOR Work Phone: [facility] 10-09-2022 09:56-0400 Systolic blood pressure 108 mm[Hg] Nallely Garcia PATIENT SAFETY TECH.INDUSTRIAL ECONOMICS PROFESSOR Work Phone: [facility] Encounters Encounter Date Encounter Type Care Provider Facility Start: 01-17-2025 End: 01-17-2025 ambulatory Alondra Samson Facility:[facility] Start: 01-11-2025 End: 01-11-2025 ambulatory Alondra Waverly Facility:[facility] Start: 12-22-2024 End: 12-22-2024 ambulatory Alondra Waverly Facility:[facility] Start: 12-22-2024 End: 12-22-2024 ambulatory Alondra Samson Facility:[facility] Start: 12-11-2024 End: 12-11-2024 ambulatory ZULMA SOL Facility:[facility] Start: 10-23-2024 End: 10-23-2024 ambulatory Alondra [place]aver[place] Facility:[facility] Start: 10-16-2024 End: 10-16-2024 ambulatory Michael Grupo Facility:[facility] Start: 09-19-2024 End: 09-19-2024 ambulatory Michael Grupo Facility:[facility] Start: 09-09-2024 End: 09-09-2024 Emergency department patient visit Uzair Joy Facility:[facility] Start: 09-04-2024 End: 09-04-2024 ambulatory Michael Grupo Facility:[facility] Start: 08-24-2024 End: 08-24-2024 ambulatory Michael Grupo Facility:[facility] Start: 08-16-2024 End: 08-16-2024 ambulatory Michael [place] Facility:[facility] Start: 08-07-2024 End: 08-07-2024 ambulatory Michael Grupo Facility:[facility] Start: 08-01-2024 End: 08-01-2024 ambulatory Michael Grupo Facility:[facility] Start: 07-30-2024 End: 07-30-2024 Emergency department patient visit Galdino Camacho Facility:[facility] Start: 07-28-2024 End: 07-28-2024 ambulatory Michael Lombardo Facility:[facility] Start: 07-17-2024 End: 07-17-2024 ambulatory Kenn Stratton Quang Facility:[facility] Start: 06-05-2024 End: 06-05-2024 ambulatory Alondra Samson Facility:[facility] Start: 05-23-2024 End: 05-23-2024 ambulatory Alondra Samson Facility:[facility] Start: 05-23-2024 End: 05-23-2024 ambulatory Alondra Waverly Facility:[facility] Start: 05-16-2024 End: 05-18-2024 ambulatory Filomena John Facility:[facility] Start: 05-11-2024 ambulatory Alondra Samson Facility :[facility] Start: 05-08-2024 End: 05-08-2024 ambulatory Alondra Samson Facility:[facility] Start: 05-05-2024 End: 05-05-2024 ambulatory Alondra Waverly Facility:[facility] Start: 04-13-2024 End: 04-13-2024 ambulatory Alondra Samson Facility:[facility] Start: 04-07-2024 End: 04-07-2024 ambulatory Alondra Waverly Facility:[facility] Start: 04-07-2024 End: 04-07-2024 ambulatory Alondra Waverly Facility:[facility] Start: 04-02-2024 End: 04-02-2024 Emergency department patient visit Alondra Waverly Facility:[facility] Start: 03-30-2024 ambulatory Velasquez Gonzalez Facilit y:[facility] Start: 03-30-2024 End: 04-01-2024 Evaluation and management of inpatient Velasquez Gonzalez Facility:[facility] Start: 03-26-2024 End: 03-26-2024 Emergency department patient visit Alondra Waverly Facility:[facility] Start: 03-24-2024 End: 03-24-2024 Subsequent hospital visit by physician Alannah [facility] Work Phone: Radiology Comment on above: Plantar fasciitis [M 72.2] Start: 03-24-2024 End: 03-24-2024 ambulatory ZULMA SOL Facility:[facility] Start: 03-24-2024 End: 03-24-2024 Patient encounter procedure Zulma Ruizjo Work Phone: Podiatry Comment on above: Plantar fasciitis (P rimary Dx) Start: 02-22-2024 End: 02-22-2024 Emergency department patient visit [facility] Facility:[facility] Start: 02-18-2024 End: 02-18-2024 Emergency department patient visit [facility] Facility:[facility] Start: 01-31-2024 End: 01-31-2024 ambulatory [facility] Facility:[facility] Start: 01-31-2024 End: 01-31-2024 ambulatory [facility] Facility:[facility] Start: 01-24-2024 End: 01-24-2024 Orders Only Peter Sigala MD Work Phone: Endocrine Surgery Comment on above: 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); Hyperparathyroidism (HCC) 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); Obesity, Class III, BMI 40-49.9 (morbid obesity) (HCC) Start: 08-27-2023 End: 08-27-2023 Patient encounter procedure Syed Kruger APRN.CNP Work Phone: [employer] Comment on above: Procedure not jordin d out (Primary Dx) Start: 07-13-2023 Telephone encounter Zulma Giang Work Phone: Podiatry Comment on above: Results Start: 07-08-2023 End: 07-08-2023 Patient encounter procedure Zulma Sol Work Phone: Podiatry Comment on above: Arthritis of right m idfoot (Primary Dx); Foot pain, right; Right foot pain Start: 06-24-2023 Telephone encounter Ryan MARRERO Work Phone: [facility] Comment on above: Opened In Error Start: 06-22-2023 End: 06-22-2023 Subsequent hospital visit by physician Xr [facility] Alyssa Work Phone: Radiology Comment on above: Foot pain, right [M7 9.671] Start: 06-22-2023 End: 06-22-2023 Patient encounter procedure Juju MARRERO Work Phone: [facility] Comment on above: Foot pain, right (Pr imary Dx) Start: 05-27-2023 Refill Grayson schrader MD Work Phone: Endocrinology Comment on above: Refill Request Start: 10-21-2022 Orders Only Peter Guerrero in Work Phone: Endocrine Surgery Comment on above: 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); Hyperparathyroidism (HCC) Start: 10-09-2022 End: 10-09-2022 Patient encounter procedure Nallely Garcia APRN.CNP Work Phone: [facility] Comment on above: URI with cough and c ongestion (Primary Dx); Acute conjunctivitis of left eye, unspecified acute conjunctivitis type Start: 08-26-2022 End: 08-26-2022 ambulatory Peter Sigala MD Work Phone: Endocrine Surgery Comment on above: MEN1 (multiple endoc rine neoplasia) (HCC); Obesity, Class III, BMI 40-49.9 (morbid obesity) (HCC) Start: 08-26-2022 End: 08-26-2022 Telemedicine consultation with patient Peter Sigala MD Work Phone: [facility] Start: 07-17-2022 End: 07-17-2022 Subsequent hospital visit by physician [facility] ([facility]) Work Phone: Cat Scan Comment on above: Malignant neoplasm o f head of pancreas (HCC) [C25.0] Start: 07-01-2022 Orders Only Peter Guerrero in Work Phone: Endocrine Surgery Start: 06-11-2022 Orders Only Rogerio Ble tsjose l COURTNEY Work Phone: Endocrine Surgery Comment on above: 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) Start: 05-22-2022 Refill Grayson schrader MD Work Phone: Endocrinology Comment on above: Refill Request Start: 01-30-2022 Refill Bret luna MD Work Phone: [facility] Comment on above: Refill Request; Refi ll Request Start: 12-04-2021 Refill Grayson schrader MD Work Phone: Endocrinology Comment on above: Refill Request Start: 10-30-2021 Nurse Triage Bret luna MD Work Phone: [facility] Comment on above: Refill Request Start: 10-07-2021 Refill Bret luna MD Work Phone: [facility] Comment on above: Refill Request Start: 09-03-2021 ambulatory Bret luna MD Work Phone: [facility] Start: 08-31-2021 Refill Bret luna MD Work Phone: [facility] Comment on above: Refill Request Start: 08-04-2021 Refill Yaneth odonnell APRN.CNP Work Phone: [facility] Comment on above: Refill Request Start: 06-20-2021 Refill Bret luna MD Work Phone: [facility] Comment on above: Refill Request Start: 06-02-2021 Refill Bret luna MD Work Phone: [facility] Comment on above: Refill Request Start: 06-21-2020 End: 06-21-2020 Subsequent hospital visit by physician Alannah [facility] Work Phone: Radiology Comment on above: Pain in joint involv ing right ankle and foot [M25.571] Start: 07-27-2017 End: 07-28-2017 Patient encounter procedure GABRIELA MAY Facility:[facility] Start: 07-14-2017 End: 07-19-2017 Patient encounter procedure GABRIELA MAY Facility:[facility] Procedures Date Procedure Procedure Detail Performing Clinician Start: 06-22-2023 Radex foot complete minimum 3 views Juju MARRERO Work Phone: Start: 07-17-2022 Ct abdomen w/contras t material Peter Sigala MD Work Phone: Start: 07-12-2020 Lipid 1996 panel - S shira or Plasma Ct ([facility]) Work Phone: Start: 06-21-2020 Radex ankle complete minimum 3 views Lucille Rogers APRN.CNP Work Phone: Start: 10-24-2018 Colonoscopy Bret Salomon MD Work Phone: Start: 07-27-2017 Mammography Bret Salomon MD Work Phone: Plan of Treatment Date Care Activity Detail Author Start: 06-30-2028 Urine microalbumin profile [facility] Start: 01-23-2027 Diabetes Screening Diabetes Screenin [facility] Start: 07-07-2026 Diabetes Screening Diabetes Screenin [facility] Start: 10-06-2025 DIABETES SCREEN DIABETES SCREEN [facility] Start: 10-06-2025 Diabetes Screening Diabetes Screenin g [facility] Start: 07-12-2025 Lipid 1996 panel - S shira or Plasma Lipid Screening [facility] Start: 07-12-2025 Lipid panel Lipid Screening [facility] Start: 07-12-2025 LIPID SCREEN LIPID SCREEN [facility] Start: 06-12-2025 DIABETES SCREEN DIABETES SCREEN [facility] Start: 01-23-2025 BP Controlled (<130/80) BP Controlle d (<130/80) [facility] Start: 11-30-2024 Complete blood count Hemoglobin/Tavon tocrit [facility] Start: 11-30-2024 Creatinine measurement Serum Creatin ine [facility] Start: 07-07-2024 Creatinine measurement Serum Creatin ine [facility] Start: 06-21-2024 BP Controlled (<130/80) BP Controlle d (<130/80) [facility] Start: 02-28-2024 DI[address]ES SCREEN DIABETES SCREEN [facility] Start: 01-24-2024 End: 04-24-2024 Calcium [Mass/volume] in Serum or Plasma [facility] [place] Work Phone: Comment on above: Expected: 01/24/2024 , Expires: 04/24/2024 Start: 01-24-2024 End: 04-24-2024 Chromogranin A [Mass/volume] in Serum or Plasma [facility] Comment on above: Expected: 01/24/2024 , Expires: 04/24/2024 Start: 01-24-2024 End: 04-24-2024 Gastrin [Mass/volume] in Serum or Plasma [facility] Comment on above: Expected: 01/24/2024 , Expires: 04/24/2024 Start: 01-24-2024 End: 04-24-2024 INSULIN LIK GR FAC I [facility] Comment on above: Expected: 01/24/2024 , Expires: 04/24/2024 Start: 01-24-2024 End: 04-24-2024 Magnesium [Mass/volume] in Serum or Plasma [facility] Comment on above: Expected: 01/24/2024 , Expires: 04/24/2024 Start: 01-24-2024 End: 04-24-2024 PANCREATIC POLYPEPTIDE [facility] Comment on above: Expected: 01/24/2024 , Expires: 04/24/2024 Start: 01-24-2024 End: 04-24-2024 Parathyrin.intact [Mass/volume] in Serum or Plasma [facility] Comment on above: Expected: 01/24/2024 , Expires: 04/24/2024 Start: 01-24-2024 End: 04-24-2024 Phosphate [Mass/volume] in Serum or Plasma [facility] Comment on above: Expected: 01/24/2024 , Expires: 04/24/2024 Start: 01-24-2024 End: 04-24-2024 PROINSULIN INTACT BLOOD [facility] Comment on above: Expected: 01/24/2024 , Expires: 04/24/2024 Start: 01-24-2024 End: 04-24-2024 Prolactin [Mass/volume] in Serum or Plasma [facility] Comment on above: Expected: 01/24/2024 , Expires: 04/24/2024 Start: 01-24-2024 End: 04-24-2024 SOMATOSTATIN BLD [facility] Comment on above: Expected: 01/24/2024 , Expires: 04/24/2024 Start: 01-24-2024 End: 04-24-2024 VASOACTIVE INTESTINAL POLYPEPTIDE (VIP), PLASMA [facility] Comment on above: Expected: 01/24/2024 , Expires: 04/24/2024 Start: 11-07-2023 Covid-19 Vaccine () Covid-19 Vaccine () [facility] Start: 11-07-2023 Covid-19 Vaccine () Covid-19 Vaccine () [facility] Start: 11-07-2023 Influenza vaccination [facility] Start: 10-10-2023 BP CONTROLLED (<130/80) BP CONTROLLE D (<130/80) [facility] Start: 10-07-2023 Creatinine measurement Serum Creatin ine [facility] Start: 10-07-2023 SERUM CREATININE SERUM CREATININE Cl [facility] Start: 08-09-2023 End: 10-09-2023 C peptide [Mass/volume] in Serum or Plasma C-PEPTIDE BLD Lab Routine MEN1 (multiple endocrine neoplasia) (HCC) Expected: 08/09/2023 (Approximate), Expires: 10/09/2023 [facility] Work Phone: Comment on above: Expected: 08/09/2023 (Approximate), Expires: 10/09/2023 Start: 08-09-2023 End: 10-09-2023 Calcium [Mass/volume] in Serum or Plasma CALCIUM TOTAL BLD Lab Routine MEN1 (multiple endocrine neoplasia) (HCC) Expected: 08/09/2023 (Approximate), Expires: 10/09/2023 [facility] Work Phone: Comment on above: Expected: 08/09/2023 (Approximate), Expires: 10/09/2023 Start: 08-09-2023 End: 10-09-2023 Chromogranin A [Mass/volume] in Serum or Plasma CHROMOGRANIN A Lab Routine MEN1 (multiple endocrine neoplasia) ([facility]) Expected: 08/09/2023 (Approximate), Expires: 10/09/2023 [facility] Work Phone: Comment on above: Expected: 08/09/2023 (Approximate), Expires: 10/09/2023 Start: 08-09-2023 End: 10-09-2023 Fasting glucose [Mass/volume] in Serum or Plasma GLUCOSE FASTING BLD Lab Routine MEN1 (multiple endocrine neoplasia) ([facility]) Expected: 08/09/2023 (Approximate), Expires: 10/09/2023 [facility] Work Phone: Comment on above: Expected: 08/09/2023 (Approximate), Expires: 10/09/2023 Start: 08-09-2023 End: 10-09-2023 Gastrin [Mass/volume] in Serum or Plasma GASTRIN BLD Lab Routine MEN1 (multiple endocrine neoplasia) ([facility]) Expected: 08/09/2023 (Approximate), Expires: 10/09/2023 [facility] Work Phone: Comment on above: Expected: 08/09/2023 (Approximate), Expires: 10/09/2023 Start: 08-09-2023 End: 10-09-2023 Glucagon [Mass/volume] in Serum or Plasma GLUCAGON BLD Lab Routine MEN1 (multiple endocrine neoplasia) ([facility]) Expected: 08/09/2023 (Approximate), Expires: 10/09/2023 [facility] Work Phone: Comment on above: Expected: 08/09/2023 (Approximate), Expires: 10/09/2023 Start: 08-09-2023 End: 10-09-2023 Insulin [Units/volume] in Serum or Plasma INSULIN ASSAY BLOOD Lab Routine MEN1 (multiple endocrine neoplasia) ([facility]) Expected: 08/09/2023 (Approximate), Expires: 10/09/2023 [facility] Work Phone: Comment on above: Expected: 08/09/2023 (Approximate), Expires: 10/09/2023 Start: 08-09-2023 End: 10-09-2023 Magnesium [Mass/volume] in Serum or Plasma MAGNESIUM BLD Lab Routine MEN1 (multiple endocrine neoplasia) ([facility]) Expected: 08/09/2023 (Approximate), Expires: 10/09/2023 [facility] Work Phone: Comment on above: Expected: 08/09/2023 (Approximate), Expires: 10/09/2023 Start: 08-09-2023 End: 10-09-2023 PANCREATIC POLYPEPTIDE PANCREATIC POLYPEPTIDE Lab Routine MEN1 (multiple endocrine neoplasia) ([facility]) Expected: 08/09/2023 (Approximate), Expires: 10/09/2023 [facility] Work Phone: Comment on above: Expected: 08/09/2023 (Approximate), Expires: 10/09/2023 Start: 08-09-2023 End: 10-09-2023 Parathyrin.intact [Mass/volume] in Serum or Plasma PTH INTACT BLD Lab Routine MEN1 (multiple endocrine neoplasia) ([facility]) Expected: 08/09/2023 (Approximate), Expires: 10/09/2023 [facility] Work Phone: Comment on above: Expected: 08/09/2023 (Approximate), Expires: 10/09/2023 Start: 08-09-2023 End: 10-09-2023 PROINSULIN INTACT BLOOD PROINSULIN INTACT BLOOD Lab Routine MEN1 (multiple endocrine neoplasia) ([facility]) Expected: 08/09/2023 (Approximate), Expires: 10/09/2023 [facility] Work Phone: Comment on above: Expected: 08/09/2023 (Approximate), Expires: 10/09/2023 Start: 08-09-2023 End: 10-09-2023 Prolactin [Mass/volume] in Serum or Plasma PROLACTIN BLD Lab Routine MEN1 (multiple endocrine neoplasia) ([facility]) Expected: 08/09/2023 (Approximate), Expires: 10/09/2023 [facility] Work Phone: Comment on above: Expected: 08/09/2023 (Approximate), Expires: 10/09/2023 Start: 08-09-2023 End: 10-09-2023 SOMATOSTATIN BLD SOMATOSTATIN BLD Lab Routine MEN1 (multiple endocrine neoplasia) (HCC) Expected: 08/09/2023 (Approximate), Expires: 10/09/2023 [facility] Work Phone: Comment on above: Expected: 08/09/2023 (Approximate), Expires: 10/09/2023 Start: 08-09-2023 End: 10-09-2023 Vasoactive intestinal peptide [Mass/volume] in Serum or Plasma VIP Lab Routine MEN1 (multiple endocrine neoplasia) (HCC) Expected: 08/09/2023 (Approximate), Expires: 10/09/2023 [facility] Work Phone: Comment on above: Expected: 08/09/2023 (Approximate), Expires: 10/09/2023 Start: 08-09-2023 End: 08-09-2023 ambulatory 08/09/2023 11:00 AM EDT Results Only [facility] [address] [place] [address] [facility] Start: 07-15-2023 SERUM CREATININE SERUM CREATININE Cl [facility] Start: 11-06-2022 Covid-19 Vaccine ( season) Covid-19 Vaccine ( season) [facility] Start: 11-06-2022 [facility] Start: 06-11-2022 End: 08-11-2022 C peptide [Mass/volume] in Serum or Plasma C-PEPTIDE BLD Lab Routine MEN1 (multiple endocrine neoplasia) (HCC) Expected: 06/11/2022, Expires: 08/11/2022 [facility] Work Phone: Comment on above: Expected: 06/11/2022 , Expires: 08/11/2022 Start: 06-11-2022 End: 08-11-2022 Calcium [Mass/volume] in Serum or Plasma CALCIUM TOTAL BLD Lab Routine MEN1 (multiple endocrine neoplasia) (HCC) Expected: 06/11/2022, Expires: 08/11/2022 [facility] Work Phone: Comment on above: Expected: 06/11/2022 , Expires: 08/11/2022 Start: 06-11-2022 End: 08-11-2022 Chromogranin A [Mass/volume] in Serum or Plasma CHROMOGRANIN A Lab Routine MEN1 (multiple endocrine neoplasia) (HCC) Expected: 06/11/2022, Expires: 08/11/2022 [facility] Work Phone: Comment on above: Expected: 06/11/2022 , Expires: 08/11/2022 Start: 06-11-2022 End: 08-11-2022 Fasting glucose [Mass/volume] in Serum or Plasma GLUCOSE FASTING BLD Lab Routine MEN1 (multiple endocrine neoplasia) (HCC) Expected: 06/11/2022, Expires: 08/11/2022 [facility] Work Phone: Comment on above: Expected: 06/11/2022 , Expires: 08/11/2022 Start: 06-11-2022 End: 08-11-2022 Gastrin [Mass/volume] in Serum or Plasma GASTRIN BLD Lab Routine MEN1 (multiple endocrine neoplasia) (HCC) Expected: 06/11/2022, Expires: 08/11/2022 [facility] Work Phone: Comment on above: Expected: 06/11/2022 , Expires: 08/11/2022 Start: 06-11-2022 End: 08-11-2022 Insulin [Units/volume] in Serum or Plasma INSULIN ASSAY BLOOD Lab Routine MEN1 (multiple endocrine neoplasia) (HCC) Expected: 06/11/2022, Expires: 08/11/2022 [facility] Work Phone: Comment on above: Expected: 06/11/2022 , Expires: 08/11/2022 Start: 06-11-2022 End: 08-11-2022 PANCREATIC POLYPEPTIDE PANCREATIC POLYPEPTIDE Lab Routine MEN1 (multiple endocrine neoplasia) (HCC) Expected: 06/11/2022, Expires: 08/11/2022 [facility] Work Phone: Comment on above: Expected: 06/11/2022 , Expires: 08/11/2022 Start: 06-11-2022 End: 08-11-2022 Parathyrin.intact [Mass/volume] in Serum or Plasma PTH INTACT BLD Lab Routine MEN1 (multiple endocrine neoplasia) ([facility]) Expected: 06/11/2022, Expires: 08/11/2022 [facility] Work Phone: Comment on above: Expected: 06/11/2022 , Expires: 08/11/2022 Start: 06-11-2022 End: 08-11-2022 Phosphate [Mass/volume] in Serum or Plasma PHOSPHORUS INORGANIC Lab Routine MEN1 (multiple endocrine neoplasia) ([facility]) Expected: 06/11/2022, Expires: 08/11/2022 [facility] Work Phone: Comment on above: Expected: 06/11/2022 , Expires: 08/11/2022 Start: 06-11-2022 End: 08-11-2022 PROINSULIN INTACT BLOOD PROINSULIN INTACT BLOOD Lab Routine MEN1 (multiple endocrine neoplasia) ([facility]) Expected: 06/11/2022, Expires: 08/11/2022 [facility] Work Phone: Comment on above: Expected: 06/11/2022 , Expires: 08/11/2022 Start: 06-11-2022 End: 08-11-2022 Prolactin [Mass/volume] in Serum or Plasma PROLACTIN BLD Lab Routine MEN1 (multiple endocrine neoplasia) ([facility]) Expected: 06/11/2022, Expires: 08/11/2022 [facility] Work Phone: Comment on above: Expected: 06/11/2022 , Expires: 08/11/2022 Start: 06-11-2022 End: 08-11-2022 SOMATOSTATIN BLD SOMATOSTATIN BLD Lab Routine MEN1 (multiple endocrine neoplasia) ([facility]) Expected: 06/11/2022, Expires: 08/11/2022 [facility] Work Phone: Comment on above: Expected: 06/11/2022 , Expires: 08/11/2022 Start: 06-11-2022 End: 08-11-2022 SULFONYLUREA HYPO UR SULFONYLUREA HYPO UR Lab Routine MEN1 (multiple endocrine neoplasia) (HCC) Expected: 06/11/2022, Expires: 08/11/2022 [facility] Work Phone: Comment on above: Expected: 06/11/2022 , Expires: 08/11/2022 Start: 06-11-2022 End: 08-11-2022 Vasoactive intestinal peptide [Mass/volume] in Serum or Plasma VIP Lab Routine MEN1 (multiple endocrine neoplasia) (HCC) Expected: 06/11/2022, Expires: 08/11/2022 [facility] Work Phone: Comment on above: Expected: 06/11/2022 , Expires: 08/11/2022 Start: 05-12-2022 Pneumococcal Vaccine : 50+ (3 of 3 - PCV20 or PCV21) Pneumococcal Vaccine: 50+ (3 of 3 - PCV20 or PCV21) [facility] Start: 04-04-2022 SERUM CREATININE SERUM CREATININE Cl [facility] Start: 02-25-2022 Complete blood count Hemoglobin/Tavon tocrit [facility] Start: 02-25-2022 HEMOGLOBIN/HEMATOCRIT HEMOGLOBIN/HEM ATOCRIT [facility] Start: 12-26-2021 COLORECTAL CANCER SCREENING COLORECTAL CANCER SCREENING [facility] Start: 12-26-2021 FECAL OCCULT BLOOD FECAL OCCULT BLOO D [facility] Start: 12-26-2021 Screening for malign ant neoplasm of colon [facility] Start: 12-18-2021 ANNUAL PCP TEAM BALLISTIC TECHNICIAN WEN DISEASE VISIT ANNUAL PCP TEAM CHRONIC DISEASE VISIT [facility] Start: 12-18-2021 BP CONTROLLED (<130/80) BP CONTROLLE D (<130/80) [facility] Start: 11-06-2021 Influenza vaccination INFLUENZA (#1) [facility] Start: 12-30-2020 COVID-19 VACCINE (3 - Booster for Moderna series) COVID-19 VACCINE (3 - Booster for Moderna series) [facility] Start: 09-24-2020 COVID-19 VACCINE (3 - Booster for Moderna series) COVID-19 VACCINE (3 - Booster for Moderna series) [facility] Start: 09-24-2020 COVID-19 VACCINE (3 - Moderna series) COVID-19 VACCINE (3 - Moderna series) [facility] Start: 10-25-2019 Colonoscopy COLONOSCOPY [facility] Start: 10-25-2019 Screening for malign ant neoplasm of colon Colonoscopy [facility] Start: 07-27-2018 Mammography [facility] Start: 07-27-2018 Screening for malign ant neoplasm of breast Mammogram Screening [facility] Start: 2016 SHINGRIX VACCINE (1 of 2) SHINGRIX VACCINE (1 of 2) [facility] Start: 2011 COLOGUARD (FIT-DNA) COLOGUARD (FIT-D NA) [facility] Start: [address] [facility] Start: 2011 Screening for malign ant neoplasm of colon [facility] Start: 2011 SIGMOIDOSCOPY SIGMOIDOSCOPY [facility] Start: 1985 Hepatitis B Vaccine (1 of 3 - 19+ 3-dose series) Hepatitis B Vaccine (1 of 3 - 19+ 3-dose series) [facility] Start: 1984 BP CONTROLLED (<130/80) BP CONTROLLE D (<130/80) [facility] Start: 1966 HEPATITIS B (1 of 3 - 3-dose series) HEPATITIS B (1 of 3 - 3-dose series) [facility] Start: 1966 Hepatitis B Vaccine (1 of 3 - 3-dose series) Hepatitis B Vaccine (1 of 3 - 3-dose series) [facility] End: 10-03-2022 Screening mammography bi 2-view breast inc cad LEXI SCREENING Radiology Routine Encounter for screening mammogram for breast cancer 1 Occurrences starting 09/03/2021 until 10/03/2022 [facility] Work Phone: Comment on above: 1 Occurrences starti ng 09/03/2021 until 10/03/2022 US Thyroid gland US THYROID/PARA THYROID (POC) ENDO USE ONLY Imaging Diagnostic Routine MEN1 (multiple endocrine neoplasia) (HCC) Ordered: 01/24/2024 [facility] Work Phone: Comment on above: Ordered: 01/24/2024 XR Foot - left AP an d Lateral and oblique XR FOOT GENERAL 3V AP/LAT/OBL LEFT Radiology Routine Plantar fasciitis 03/24/2024 12:03 PM EST [facility] Immunizations Immunization Date Immunization Notes Care Provider Michael weiss 12-18-2020 influenza, injectabl e, quadrivalent, contains preservative Bret Salomon MD Work Phone: [facility] 12-18-2020 influenza virus vacc ine, unspecified formulation Ct (I-Stat) Work Phone: [facility] 11-22-2018 influenza, injectabl e, quadrivalent, contains preservative Bret Salomon MD Work Phone: [facility] 06-30-2018 tetanus toxoid, redu marciano diphtheria toxoid, and acellular pertussis vaccine, adsorbed Bret Salomon MD Work Phone: [facility] 11-26-2017 influenza, injectabl e, quadrivalent, contains preservative Bret Salomon MD Work Phone: [facility] 05-12-2017 pneumococcal conjuga te vaccine, 13 valent Bret Salomon MD Work Phone: [facility] 01-13-2017 influenza, injectabl e, quadrivalent, contains preservative Bret Salomon MD Work Phone: [facility] 11-15-2015 influenza, injectabl e, quadrivalent, contains preservative Bret Salomon MD Work Phone: [facility] 11-15-2015 pneumococcal polysaccharide vaccine, 23 valent Bret Salomon MD Work Phone: [facility] 12-18-2014 influenza, seasonal, injectable Bret Salomon MD Work Phone: [facility] 01-12-2013 influenza virus vacc ine, unspecified formulation Bret Salomon MD Work Phone: [facility] 12-15-2011 influenza virus vacc ine, unspecified formulation Bret Salomon MD Work Phone: [facility] 12-15-2011 tetanus toxoid, redu marciano diphtheria toxoid, and acellular pertussis vaccine, adsorbed Bret Salomon MD Work Phone: [facility] 12-06-2008 pneumococcal polysaccharide vaccine, 23 valent Bret Salomon MD Work Phone: [facility] Work Phone: 01-07-2007 influenza virus vacc ine, unspecified formulation Bret Salomon MD Work Phone: [facility] 01-27-2006 influenza virus vacc ine, unspecified formulation Bret Salomon MD Work Phone: [facility] Payers Date Payer Category Payer Medicare [id number] 2023 Self-pay 2023 Medicare [id number] 2019 Medicaid [place] [id number] 2019-Present [phone] [address] [place] [address] Medicaid [id number] 2019 [place] [id number] 2019-Present [phone] [address] [place] [address] Medicaid [id number] 2018 Medicare [employer]ARE MEDICA [facility] MEDICARE [id number] 2018-Present [phone] [address] [place] [address] [facility] [id number] [id number] 2018 Medicare [id number]. 1.13.159.2.7.3.6 [id number] 2017 Medicaid [id number] 2017 Medicare [id number] 1966 Unknown [id number] 2.16.840.1.974130.3.579.2.627 1966 Unknown [id number] 2.16.840.1.463660.3.579.2.627 Unknown [id number] 2.16.840.1.699130.3.579.2.462 Unknown [id number] 2.16.840.1.044462.3.579.2.462 Unknown [id number] 2.16.840.1.247114.3.579.2.462 Unknown [id number] 2.16.840.1.749757.3.579.2.462 Unknown [id number] 2..840.1.568469.3.579.2.462 Unknown [id number] 2.16.840.1.137268.3.579.2.462 Unknown [id number] 2..840.1.694820.3.579.2.462 Unknown [id number] 2..840.1.843433.3.579.2.462 Unknown [id number] 2..840.1.850762.3.579.2.462 Unknown [id number] 2.16.840.1.599535.3.579.2.462 Unknown [id number] 2.16.840.1.145478.3.579.2.462 Unknown [id number] 2.16.840.1.117539.3.579.2.462 Unknown [id number] 2.16.840.1.491513.3.579.2.462 Unknown [id number] 2.16.840.1.910878.3.579.2.462 Unknown [id number] 2.16.840.1.028630.3.579.2.462 Unknown [id number] 2.16.840.1.995224.3.579.2.462 Unknown [id number] 2.16.840.1.103597.3.579.2.462 Unknown [id number] 2.16.840.1.345922.3.579.2.462 Unknown [id number] 2.16.840.1.111760.3.579.2.462 Unknown [id number] 2.16.840.1.393709.3.579.2.462 Unknown [id number] 2.16840.1.426934.3.579.2.462 Unknown [id number] 2.16.840.1.952625.3.579.2.462 Unknown [id number] 2.840.1.826337.3.579.2.462 Unknown [id number] 2.16840.1.671471.3.579.2.462 Unknown [id number] 2.840.1.893049.3.579.2.462 Unknown [id number] 2.840.1.897290.3.579.2.462 Unknown [id number] 2.840.1.763839.3.579.2.462 Unknown [id number] 2.840.1.361805.3.579.2.462 Unknown [id number] 2.840.1.175117.3.579.2.462 Unknown [id number] 2.840.1.114403.3.579.2.462 Unknown [id number] 2.840.1.654278.3.579.2.462 Unknown [id number] 2.840.1.520175.3.579.2.462 Unknown [id number] 2.16840.1.645077.3.579.2.462 Unknown [id number] 2.16840.1.366457.3.579.2.462 Unknown [id number] 2.840.1.398156.3.579.2.462 Unknown [id number] 2.16840.1.476864.3.579.2.462 Unknown [id number] 2.16.840.1.777278.3.579.2.462 Unknown [id number] 2.16.840.1.958620.3.579.2.462 Unknown [id number] 2.16.840.1.145042.3.579.2.462 Social History Date Type Detail Facility Start: 11-24-2010 End: 10-09-2022 Tobacco smoking status NHIS Never smoked tobacco [facility] Start: 12-18-2020 End: 03-24-2024 Alcohol intake Current drinker of alcohol (finding) [facility] Start: 08-17-2019 End: 03-06-2020 History SDOH Alcohol Frequency 1 [facility] Start: 05-02-2019 History SDOH Alcohol Std Drinks 98 [facility] Start: 01-29-2016 History SDOH Alcohol Comment occasionally - social [facility] Start: 03-20-2019 End: 08-17-2019 History SDOH Social Connections Phone 5 [facility] Start: 08-17-2019 End: 03-06-2020 History SDOH Social Connections Mormon 2 [facility] Start: 03-20-2019 End: 08-17-2019 History SDOH Physical Activity DPW 0 [facility] Start: 03-19-2019 Education 21 [facility] Start: 1965 Sex Assigned At Female [facility] Start: 11-24-2010 End: 10-09-2022 Tobacco use and exposure Smokeless tobacco non-user [facility] Work Phone: Start: 08-17-2019 End: 08-26-2022 History of Social function [facility] Start: 08-17-2019 End: 08-26-2022 Social connection and isolation panel [facility] Frequency of Communication with Friends and Family Not on file [facility] How often to you hav e a drink containing alcohol? Never [facility] Do you feel stress - tense, restless, nervous, or anxious, or unable to sleep at night because your mind is troubled all the time - these days [OSQ] Only a little [facility] (I/We) worried wheth er (my/our) food would run out before (I/we) got money to buy more. Never true [facility] In the past 12 month s, was there a time when you were not able to pay the mortgage or rent on time? No [facility] Start: 04-05-2020 Gender identity Identifies as female gender (finding) [facility] Start: 05-22-2020 End: 06-21-2020 Exposure to SARS-CoV-2 (event) Not sure [facility] Medical Equipment Procedure Code Equipment Code Equipment Origin al Text Equipment Identifier Dates Dua-Vq-B-Kind Im plant - [id number]_[facility] Start: 11-26-2010 Comment on above: Description: infuse bone graft rhbmp-2 acs 0.7cc absorable collagen sponge Csd-Mr-H-Kind [employer] plant - [id number] 283386_[facility] Start: 11-26-2010 Comment on above: Description: mini ra il Ngd-Zn-R-Kind [employer] plant - [id number] 283389_[facility] Start: 11-26-2010 Comment on above: Description: 70mm th readed wire Fcr-Jw-K-Kind [employer] plant - [id number] 283390_[facility] Start: 11-26-2010 Comment on above: Description: clamp c over Aro-Wt-C-Kind [employer] plant - [id number] 310777_[facility] Start: 02-04-2011 Comment on above: Description: FLAT 4 HOLE PLATE Bpi-Mc-T-Kind [employer] plant - [id number]_[facility] Start: 02-04-2011 Comment on above: Description: 2.4MM X 8MM LOCKING SCREW Gpa-Yi-B-Kind [employer] plant - [id number]_[facility] Start: 02-04-2011 Comment on above: Description: 2.4MM X 12MM LOCKING SCREW Vsa-Sb-R-Kind Im plant - [id number] 310794_[facility] Start: 02-04-2011 Comment on above: Description: NON LOC GRUPO SCREW 2.4MM X 12MM Graft Semitendin osus Tendon 20-25.7fmh5-79kf Soft Tissue Allograft Frozen - [id number]_[facility] Start: 10-30-2016 Clinical Notes 07-13-2018 to 12-11-2024 Katya Rivera RT(R) - 03/24/2024 11:50 AM ESTPatient InstructionsZulma Sol - 03/24/2024 11:37 AM Peter Atkinson MD - 01/24/2024 12:48 PM ESTPatient InstructionsPatient Instructions Note Date & Type Note Facility 12-11-2024 Note HNO ID: [id number] Author: ZULMA SOL, ? Service: ? Author Type: Physician Type: Progress Notes Filed: 12/11/2024 22:23 Note Text: Subjective The patient is a 59-year-old female presenting for follow-up of right foot pain and plantar fasciitis. The patient was last seen on 03/24/2024 for right heel pain, at which time she was advised to use stretching, icing, and supportive shoes. She has been wearing Saucony insoles, which have provided relief for her plantar fasciitis. The right heel pain has resolved, but she continues to experience intermittent pain along the lateral aspect of the right foot, particularly with prolonged walking or standing and when the weather is wet. She also reports a sensation of pressure on the lateral side of the foot when standing, though this is not described as pain. A right foot x-ray on 03/24/2024 revealed a non-healed fracture of the fifth metatarsal with a broken plate. The patient recalls sustaining the fracture approximately 4 years ago, treated by Dr. Arriaga with surgical plate placement, prolonged boot use, and casting. She reports that healing was difficult and prolonged. She only recently received the x-ray results a couple of weeks ago. Musculoskeletal: (+) intermittent right lateral foot pain, (+) pressure right foot with standing, (-) heel pain Objective Last menstrual period 02/01/2007. - Cardiovascular: Dorsalis pedis and posterior tibial pulses palpable bilaterally; capillary refill <5 seconds; skin temperature warm proximally to distally; hair growth present on both feet. - Skin: No open sores noted on bilateral feet; skin appears well-hydrated bilaterally. - Musculoskeletal: - Left Foot: - No tenderness along the lateral aspect of the fifth metatarsal. - Strength: Plantar flexion, dorsiflexion, inversion, and eversion 5/5. Imaging: - (03/24/2024) Foot X-ray: Persistent nonunion of fifth metatarsal fracture; plate fixation with fractured plate and multiple screws. Tests AND Prior Procedures: - Prior ORIF of fifth metatarsal: Persistent nonunion; hardware failure with plate fracture. 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 Intermittent lateral foot pain is likely exacerbated by underlying hindfoot deformity, which is contributing to abnormal stress and impaired healing. - Repeat X-ray of the left foot today to assess for interval changes. - Continue use of supportive footwear (e.g., Saucony, Hoka, Dumont, Asics) and orthotic inserts. - Discussed potential management options, including continued observation if asymptomatic, versus surgical intervention (hardware removal, replacement, bone grafting) if pain worsens or radiographic progression is noted. - Educated patient on the impact of hindfoot deformity on fracture healing and the potential need to address the deformity to facilitate healing. -Would Refer to orthopedic surgery for further evaluation and management if surgery necessary Recording using Paradigm software for draft documentation of the visit was discussed with the patient/authorized entry level marketing representative; all questions welcomed and answered. Patient/authorized entry level marketing representative agreed to proceed Zulma Sol DPM [facility] 12-11-2024 Note HNO ID: [id number] Author: VANDA ZAZUETA RT(R) Service: ? Author Type: Hatchery Helper Type: Progress Notes Filed: 12/11/2024 13:58 Note Text: Radiology Service Progress Note PATIENT NAME: Thuy White DATE OF SERVICE: December 11, 2024 TIME: 1:48 PM PATIENT IDENTITY VERIFICATION COMPLETED USING TWO [...] PATIENT PRESENTS WITH AN IMPLANTABLE OR ATTACHED VOLCANOLOGIST: No RADIOLOGY DEPARTMENT: General X-ray: Exam(s) Completed: Lower Extremity X-Ray(s): Foot, Left PERIPHERAL IV DATA: Not applicable SIGNED BY: RT Darline(R) December 11, 2024 1:48 PM [facility] 12-11-2024 Note HNO ID: [id number] Author: CR LINARES MA Service: ? Author Type: Automotive Quality Engineer Type: Progress Notes Filed: 12/11/2024 22:23 Note Text: AMB ROOMING INTAKE FLOWSHEET DATA Pain Pain Level: 6 Pain Location: Foot-Left Description: Aching Frequency: Intermittent [facility] 05-18-2024 Note [facility] 04-01-2024 Note [facility] 03-24-2024 History of Present illness Narrative Radiology [...] PATIENT PRESENTS WITH AN IMPLANTABLE OR ATTACHED VOLCANOLOGIST: No RADIOLOGY DEPARTMENT: General X-ray: Exam(s) Completed: Lower Extremity X-Ray(s): Foot, Left and Wt. Bearing PERIPHERAL IV DATA: Not applicable SIGNED BY: RT Julian(R) March 24, 2024 1:41 PM documented in this encounter [facility] 03-24-2024 Note HNO ID: [id number] Author: KATYA RIVERA RT(R) Service: ? Author [...] PATIENT PRESENTS WITH AN IMPLANTABLE OR ATTACHED VOLCANOLOGIST: No RADIOLOGY DEPARTMENT: General X-ray: Exam(s) Completed: Lower Extremity X-Ray(s): Foot, Left and Wt. Bearing PERIPHERAL IV DATA: Not applicable SIGNED BY: RT Julian(R) March 24, 2024 1:41 PM [facility] 03-24-2024 Instructions Zulma Sol - 03/24/2024 11:41 AM EST Images from the [...] time on their feet, such as nurses, billing rep/waiters, and mail carriers, often experience plantar fasciitis. [...] choose the one that fits the best. [place] with your athletic shoes to find a [...] repeat the exercise. documented in this encounter [facility] 03-24-2024 Note HNO ID: [id number] Author: ZULMA SOL, ? Service: ? Author [...] 2004 with panic attacks Herpes genitalis Hypoparathyroidism ([facility]) parathyroid implant Left forearm Hypothyroidism 09/30/2018 IFG (impaired fasting glucose) 05/08/2014 Impaired fasting glucose Insomnia 03/16/2013 Iron deficiency anemia Irritable bowel syndrome 1997 diarrhea prone, dairy exacerbates MEN 1 (multiple endocrine neoplasia) ([facility]) Dr Solorzano, [facility] Morbid obesity ([facility]) 2006 s/p sleeve Dr Dale Obstructive sleep apnea fair complaince with CPAP Primary hyperparathyroidism ([facility]) 3 1/2 gland parathyroidectomy Renal insufficiency Sternoclavicular [...] CURETTAGE DXAND/THER NON (more content not included)... [facility] 03-24-2024 History of Present illness Narrative [...] 2004 with panic attacks Herpes genitalis Hypoparathyroidism ([facility]) parathyroid implant Left forearm Hypothyroidism 09/30/2018 IFG (impaired fasting glucose) 05/08/2014 Impaired fasting glucose Insomnia 03/16/2013 Iron deficiency anemia Irritable bowel syndrome 1998 diarrhea prone, dairy exacerbates MEN 1 (multiple endocrine neoplasia) ([facility]) Dr Solorzano, [facility] Morbid obesity ([facility]) 2007 s/p sleeve Dr Dale Obstructive sleep apnea fair complaince with CPAP Primary hyperparathyroidism ([facility]) 3 1/2 gland parathyroidectomy Renal insufficiency Sternoclavicular [...] 1991 For excessive menstruation ESOPHAGOGASTRODUODENOSCOPY TRANSORAL DIAGNOSTIC 2005 GASTRIC BYPASS HX 2007 gastric sleeve MENISCAL REPAIR SYS,[id number] Right MYRINGOTOMY ASPIR&/EUSTACHIAN TUBE NFLTJ ANES Myringotomy/tubes PARATHYROID AUTOTRANSPLANTATION ADD-ON 07/27/06 left forearm PARATHYROIDECTOMY/EXPLORATION PARATHYROIDS 12/08/2005 3 3/4 parathyroid glans removed PAST SURGICAL HISTORY OF Left foot fracture repair SEPTOPLASTY/SUBMUCOUS RESECJ W/WO CARTILAGE GRF Septoplasty SURGERY 1 HO 10/2016 clavicle surgery TOTAL ABDOMINAL HYSTERECT W/WO RMVL TUBE OVARY 01/16/09 [facility] Physical Exam: OBJECTIVE: Constitutional: Pt is a [...] Zulma Sol DPM documented in this encounter [facility] 01-24-2024 Note HNO ID: [id number] Author: PETER SIGALA MD Service: ? Author [...] have additional questions. Sincerely, Peter Sigala MD [facility] 01-24-2024 History of Present illness Narrative [...] Peter Sigala MD documented in this encounter [facility] 01-24-2024 Instructions Crystal Caputo OCCA - 01/24/2024 10:55 AM EST Thank you for choosing the [facility] Department of Endocrinology, Diabetes and Metabolism. Did you know that you need to call 48 hours in advance of your scheduled visit, if you are unable to make your appointment? The Endocrinology and Metabolism [place] thanks you for your commitment, because patients not showing to their appointment results in a lost opportunity for patients to receive world class health care at the [facility]. To Cancel an appointment, please choose one of the following: - Call the Appointment Call Center at [phone] - From [employer], Go to Appointments - Cancel Appts If cancelling, consider your need to reschedule to prevent further delays in your care. To Schedule an appointment, please choose one of the following: - Call the Appointment Call Center at [phone] - From [facility], Go to Appointments - Request an Appt documented in this encounter [facility] 08-27-2023 History of Present illness Narrative [...] further evaluation care. Will be reevaluated at [facility]. Denied transport. Syed Kruger APRN.INDUSTRIAL ECONOMICS PROFESSOR documented in this encounter [facility] 07-13-2023 Telephone encounter Note CMP faxed to number below as requested. [facility] 07-13-2023 Miscellaneous Notes CMP faxed to number below as requested. Patient is requesting 07/08/23 CMP lab results to be faxed to the office of Dr. Moses at [phone]. documented in this encounter [facility] 07-13-2023 Telephone encounter Note Patient is requesting 07/08/23 CMP lab results to be faxed to the office of Dr. Moses at [phone]. [facility] 07-08-2023 Instructions Zulma Sol - 07/08/2023 4:12 PM EDT Powerstep Original Full length. Can purchase at [facility] [employer] and boots,shoes and more here in [place], [employer] in [place] or [place]. Also can find in [place] in [facility]. Powersteps can also be purchased online, [...] fits well together documented in this encounter [facility] 07-08-2023 History of Present illness Narrative [...] 05/16/2014 5.8 10/22/2007 5.2 TEST PERFORMED AT [facility] PCP: No primary care provider on [...] dairy exacerbates MEN 1 (multiple endocrine neoplasia) [facility] Mor[facility] ([facility]) 2006 s/p sleeve Dr Dale Obstructive sleep apnea fair complaince with CPAP Primary hyperparathyroidism ([facility]) 3 1/2 gland parathyroidectomy Renal insufficiency Sternoclavicular [...] CHOLECYSTECTOMY Cholecystectomy DILATION & CURETTAGE DX&/THER NONOBSTETRIC 1992 For excessive menstruation ESOPHAGOGASTRODUODENOSCOPY TRANSORAL DIAGNOSTIC 2006 GASTRIC BYPASS HX 2007 gastric sleeve MENISCAL REPAIR SYS,[id number] Right MYRINGOTOMY ASPIR&/EUSTACHIAN TUBE NFLTJ ANES Myringotomy/tubes PARATHYROID AUTOTRANSPLANTATION ADD-ON 07/27/06 left forearm PARATHYROIDECTOMY/EXPLORATION PARATHYROIDS 12/08/2005 3 3/4 parathyroid glans removed PAST SURGICAL HISTORY OF Left foot fracture repair SEPTOPLASTY/SUBMUCOUS RESECJ W/WO CARTILAGE GRF Septoplasty SURGERY 1 HO 10/2016 clavicle surgery TOTAL ABDOMINAL HYSTERECT W/WO RMVL TUBE OVARY 01/16/09 [facility] FAMILY HISTORY Problem Relation Age of Onset [...] No Types: Marijuana Comment: last in 2016 REVIEW OF SYSTEMS GENERAL: Negative for Malaise, [...] injection Zulma Sol DPM Podiatry [address] [facility] [address] Dept: [phone] Dept AMB ROOMING INTAKE FLOWSHEET DATA Pain Pain Level: 8 Pain Location: Foot-Right Description: Aching, Burning, Pulsating, Radiating, Sharp, Stabbing Duration Units: Hours Frequency: Intermittent Intervention/Comfort measure: Medication Patient presents with: Right Foot - New, Pain, Swelling Gabriela Kunz LPN documented in this encounter [facility] 06-24-2023 Miscellaneous Notes Opened in error documented in this encounter [facility] 06-22-2023 History of Present illness Narrative [...] PATIENT PRESENTS WITH AN IMPLANTABLE OR ATTACHED VOLCANOLOGIST: No RADIOLOGY DEPARTMENT: General X-ray: Exam(s) Completed: Lower Extremity X-Ray(s): Foot, Right PERIPHERAL IV DATA: Not applicable SIGNED BY: Vanda Zazueta RT(R) June 22, 2023 8:04 AM documented in this encounter [facility] 06-22-2023 History of Present illness Narrative Images from the original note were not included. This note was created using Aniway[employer]. Subjective Thuy White is a 58 year [...] dairy exacerbates MEN 1 (multiple endocrine neoplasia) [facility] Morbid [facility] ([facility]) 2007 s/p sleeve Dr Dale Obstructive sleep apnea fair complaince with CPAP Primary hyperparathyroidism (HCC) 3 1/2 gland parathyroidectomy Renal insufficiency Sternoclavicular joint subluxation 07/16/2016 PAST SURGICAL HISTORY Procedure Laterality Date CHOLECYSTECTOMY Cholecystectomy DILATION & CURETTAGE DX&/THER NONOBSTETRIC 1991 For excessive menstruation ESOPHAGOGASTRODUODENOSCOPY TRANSORAL DIAGNOSTIC 2006 GASTRIC BYPASS HX 2007 gastric sleeve MENISCAL REPAIR SYS,[id number] Right MYRINGOTOMY ASPIR&/EUSTACHIAN TUBE NFLTJ ANES Myringotomy/tubes PARATHYROID AUTOTRANSPLANTATION ADD-ON 07/27/06 left forearm PARATHYROIDECTOMY/EXPLORATION PARATHYROIDS 12/08/2005 3 / parathyroid glans removed PAST SURGICAL HISTORY OF Left foot fracture repair SEPTOPLASTY/SUBMUCOUS RESECJ W/WO CARTILAGE GRF Septoplasty SURGERY 1 10/2016 clavicle surgery TOTAL ABDOMINAL HYSTERECT W/WO [...] evaluation. JANES Fitch documented in this encounter [facility] 05-31-2023 Miscellaneous Notes Unable to contact patient. Phone number no longer in service. Patients last office visit with Dr Solorzano was June 2020. Patient was last seen by Dr Sigala in August 2022. Mailed letter to call and schedule a follow up with Dr Sigala or establish care with new [facility] provider. Sent BERD message to schedule a follow up appointment [...] Maddi Phelps MA documented in this encounter [facility] 10-09-2022 Instructions Nallely Garcia APRN.VANDA - [...] inability to swallow. documented in this encounter [facility] 10-09-2022 History of Present illness Narrative Subjective The history is provided by the patient. No english language learner teacher was used. HPI Thuy White is a [...] 2004 with panic attacks Herpes genitalis Hypoparathyroidism ([facility]) parathyroid implant Left forearm Hypothyroidism 09/30/2018 IFG (impaired fasting glucose) 05/08/2014 Impaired fasting glucose Insomnia 03/16/2013 Iron deficiency anemia Irritable bowel syndrome 1998 diarrhea prone, dairy exacerbates MEN 1 (multiple endocrine neoplasia) ([facility] Morbid [facility] ([facility]) 2007 s/p sleeve Dr Dale Obstructive sleep apnea fair complaince with CPAP Primary hyperparathyroidism ([facility]) 3 1/ gland parathyroidectomy Renal insufficiency Sternoclavicular joint subluxation 07/16/2016 I have confirmed and edited as necessary, the [facility] Review of Systems Constitutional: Negative for chills [...] discussed in detail warranting prompt ER evaluation. SOPHIE Garcia.VANDA documented in this encounter [facility] 08-26-2022 History of Present illness Narrative This office note has been dictated. Peter Sigala MD I have communicated my name and active licensure. The patient's identity and physical location were verified at the time of this visit. Either the patient or their legal entry level marketing representative has been informed of the risks and benefits of -- and alternatives to -- treatment through a remote evaluation and consents to proceed with the evaluation remotely. documented in this encounter [facility] 07-17-2022 History of Present illness Narrative [...] TIME: 2:27 PM documented in this encounter [facility] 02-11-2022 Miscellaneous Notes Called patient to schedule-no answer. Left voicemail notifying patient she needs an appt prior to additional refills. Please verify PCP and assist in scheduling when she calls back. Linh Saini Please clarify PCP and schedule accordingly. Last appointment: 12/18/20 Next appointment: None Pharmacy verified in [facility]. Refill(s) requested: Requested Prescriptions Pending Prescriptions Disp Refills omeprazole (PRILOSEC) 20 mg capsule 180 capsule 3 Sig: Take 1 capsule by mouth twice daily. Order(s) pended. Please advise. Holly Jarrett LPN, CMA documented in this encounter [facility] 12-08-2021 Miscellaneous Notes noted Patient no longer under Dr. Umm rolle. Please have patient contact current PCP. Thanks, Yaneth Syed APRN.INDUSTRIAL ECONOMICS PROFESSOR Pharmacy verified in [facility] Patient has been identified by name [...] Maddi Phelps MA documented in this encounter [facility] 10-31-2021 Miscellaneous Notes Called to notify patient Rx was sent. Rx sent in for doxapin. Thanks, Bret Salomon MD Patient is in the process of establishing with new PCP nearer her home. Is not able to establishing with new PCP until December (first available). Will be running out of various medication and will send a Tango message with needed medications. Medication below was [...] been out for three days. Prescribed by [facility] through [facility] that prescribed them advised that she has to get medication from PCP. 2. REFILLS REMAINING: None Last filled on September 24 at [facility] 3. EXPIRATION DATE: 4. PRESCRIBING HCP: Psychiatrist 5. SYMPTOMS: Difficulty sleeping without it. Protocols used: Medication Refill and Renewal [id number] documented in this encounter [facility] 10-07-2021 Miscellaneous Notes Spoke with patient and tried to schedule a follow up appt. Patient stated that she is looking into a new PCP in the [place] area closer to home. Patient denied scheduling and will be scheduling with new pcp. Patient due for follow up, please assist in scheduling. Yaneth Syed APRN.INDUSTRIAL ECONOMICS PROFESSOR Pharmacy verified in [facility] Patient has been identified by name [...] Marivel Mackay Ma documented in this encounter [facility] 09-01-2021 Miscellaneous Notes Pharmacy verified in [facility] Patient has been identified by name [...] lb) Please advise. documented in this encounter [facility] 06-20-2021 Miscellaneous Notes Last appointment: 12/18/20 Next appointment: n/a Pharmacy verified in [facility]. Refill(s) requested: Pending Prescriptions Disp Refills MAGNESIUM OXIDE 400 MG (241.3 MG MAGNESIUM) TABLET 90 tablet 0 Sig: take 1 tablet by mouth once daily LITZY: Yes Order(s) pended. Please advise. Mar Pittman LPN documented in this encounter [facility] 06-02-2021 Miscellaneous Notes Last appointment: 12-18-20 Next appointment: na Pharmacy verified in [facility] Refill(s) requested: Pending Prescriptions Disp Refills SPIRONOLACTONE 25 MG TABLET 15 tablet 1 Sig: take 1/2 tablet by mouth once daily LITZY: Yes Order(s) pended. Please advise. Amanda Perez MA, C WPF DEVELOPER 22 documented in this encounter [facility] 06-21-2020 History of Present illness Narrative [...] 2020 2:07 PM documented in this encounter [facility] 07-13-2018 History of Past i llness [...] of this encounter (statuses as of 06/02/2021) [facility] History of Past illness Narrative* Problem [...] of this encounter (statuses as of 06/20/2021) [facility] of Past illness Narrative* Problem [...] of this encounter (statuses as of 08/05/2021) [facility] of Past illness Narrative* Problem [...] of this encounter (statuses as of 09/01/2021) [facility] of [facility] illness Narrative* Problem [...] of this encounter (statuses as of 09/08/2021) [facility] of [facility] Narrative* Problem [...] of this encounter (statuses as of 10/07/2021) [facility] Narrative* Problem [...] of this encounter (statuses as of 10/31/2021) [facility] Narrative* Problem [...] of this encounter (statuses as of 12/08/2021) [facility] of [facility] Narrative* Problem [...] of this encounter (statuses as of 02/24/2022) [facility] Narrative* Problem [...] of this encounter (statuses as of 05/22/2022) [facility] Narrative* Problem [...] of this encounter (statuses as of 06/11/2022) [facility] Narrative* Problem [...] of this encounter (statuses as of 07/01/2022) [facility] Narrative* Problem [...] of this encounter (statuses as of 08/26/2022) [facility] Narrative* Problem [...] of this encounter (statuses as of 10/09/2022) [facility] Narrative* Problem [...] of this encounter (statuses as of 10/22/2022) [facility] Narrative* Problem [...] of this encounter (statuses as of 01/10/2023) [facility] Narrative* Problem [...] of this encounter (statuses as of 06/01/2023) [facility] Narrative* Problem [...] of this encounter (statuses as of 06/22/2023) [facility] Narrative* Problem [...] of this encounter (statuses as of 06/24/2023) [facility] Diagnosis Hypokalemia Hypopotassemia Swelling Edema [facility] Hypokalemia Hypopotassemia Swelling Edema [facility] Hypokalemia Hypopotassemia [facility] Diagnosis Encounter for screening mammogram for [facility] Diagnosis Leg swelling Swelling of limb [facility] Diagnosis Essential hypertension Unspecified essential hypertension [facility] Diagnosis Postsurgical hypoparathyroidism (HCC) Hypoparathyroidism [facility] Diagnosis 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 [facility] Diagnosis 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 Obesity, Class III, BMI 40-49.9 (morbid obesity) (HCC) Morbid [facility] Diagnosis URI with cough and congestion- Primary Acute conjunctivitis of left eye, unspecified acute conjunctivitis type [facility] Diagnosis 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 Hyperparathyroidism (HCC) Hyperparathyroidism, unspecified [facility] Diagnosis Malignant neoplasm of head of pancreas (HCC) Malignant neoplasm of head of pancreas [facility] [place] [facility] Diagnosis Acquired hypothyroidism Unspecified hypothyroidism Mixed hyperlipidemia [facility] [place] [facility] Diagnosis Foot pain, right- Primary Pain in limb [facility] [place] [facility] Diagnosis Arthritis of right midfoot- Primary Foot pain, right Pain in limb Right foot pain Pain in limb [facility] [place] [facility]* Diagnosis Procedure not carried out- Primary Procedure not carried out for other reasons [facility] Diagnosis Leg edema- Primary Edema [...] Pain in limb [facility] [place] [facility] Diagnosis Leg edema- Primary Edema MEN (multiple endocrine neoplasia) ([facility]) Polyglandular dysfunction, unspecified CKD (chronic kidney disease) stage 3, GFR 30-59 ml/min ([facility]) Chronic kidney disease, Stage III (moderate) Hypokalemia Hypopotassemia Elevated brain natriuretic peptide (BNP) level Other nonspecific findings on examination of blood Elevated BUN Other abnormal blood chemistry Elevated serum creatinine Other nonspecific findings on examination of blood Anemia, unspecified type MEN1 (multiple endocrine neoplasia) ([facility]) 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 Postsurgical hypoparathyroidism ([facility]) Hypoparathyroidism CHRISTIE (generalized anxiety disorder) Generalized anxiety disorder CKD (chronic kidney disease) stage 3, GFR 30-59 ml/min ([facility]) Chronic kidney disease, Stage III (moderate) PTSD [...] kidney disease) stage 3, GFR 30-59 ml/min ([facility]) Chronic kidney disease, Stage III (moderate) MEN1 (multiple endocrine neoplasia) ([facility]) 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 Postsurgical hypoparathyroidism ([facility]) Hypoparathyroidism Acquired hypothyroidism Unspecified hypothyroidism Iron deficiency [...] ankle and foot [facility] Diagnosis Leg edema- Primary Edema MEN (multiple endocrine neoplasia) ([facility]) Polyglandular dysfunction, unspecified CKD (chronic kidney disease) [...] kidney disease) stage 3, GFR 30-59 ml/min ([facility]) Chronic kidney disease, Stage III (moderate) MEN1 (multiple endocrine neoplasia) ([facility]) 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 Postsurgical hypoparathyroidism ([facility]) Hypoparathyroidism Acquired hypothyroidism Unspecified hypothyroidism Iron deficiency [...] 40 Morbid obesity MEN1 (multiple endocrine neoplasia) ([facility])- Primary 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 [facility] [place] [facility] Diagnosis Leg edema- Primary Edema MEN [...] 40 Morbid obesity 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 Hyperparathyroidism (HCC) Hyperparathyroidism, unspecified [facility] Diagnosis Leg edema- Primary Edema [...] kidney disease) stage 3, GFR 30-59 ml/min ([facility]) Chronic kidney disease, Stage III (moderate) MEN1 (multiple endocrine neoplasia) ([facility]) 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 Postsurgical hypoparathyroidism ([facility]) Hypoparathyroidism Acquired hypothyroidism Unspecified hypothyroidism Iron deficiency anemia, unspecified iron deficiency anemia type DDD (degenerative disc disease), lumbar Degeneration of lumbar or lumbosacral intervertebral disc Bilateral leg edema Edema Recurrent major depressive disorder, in full remission ([facility]) CHRISTIE (generalized anxiety disorder) Generalized anxiety disorder Attention deficit hyperactivity disorder (ADHD), predominantly hyperactive type PTSD (post-traumatic stress disorder) Posttraumatic stress disorder Obesity, Class III, BMI >= 40 Morbid obesity MEN1 (multiple endocrine neoplasia) ([facility])- Primary 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 Obesity, Class III, BMI 40-49.9 (morbid obesity) ([facility]) Morbid obesity [facility] Diagnosis Leg edema- Primary Edema MEN (multiple endocrine neoplasia) ([facility]) Polyglandular dysfunction, unspecified CKD (chronic kidney disease) [...] kidney disease) stage 3, GFR 30-59 ml/min ([facility]) Chronic kidney disease, Stage III (moderate) MEN1 (multiple endocrine neoplasia) ([facility]) 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 Postsurgical hypoparathyroidism ([facility]) Hypoparathyroidism Acquired hypothyroidism Unspecified hypothyroidism Iron deficiency anemia, unspecified iron deficiency anemia type DDD (degenerative disc disease), lumbar Degeneration of lumbar or lumbosacral intervertebral disc Bilateral leg edema Edema Recurrent major depressive disorder, in full remission ([facility]) CHRISTIE (generalized anxiety disorder) Generalized anxiety disorder Attention deficit hyperactivity disorder (ADHD), predominantly hyperactive type PTSD (post-traumatic stress disorder) Posttraumatic stress disorder Obesity, Class III, BMI >= 40 Morbid obesity Plantar fasciitis Plantar fascial fibromatosis [facility] Diagnosis Leg edema- Primary Edema MEN (multiple endocrine neoplasia) ([facility]) Polyglandular dysfunction, unspecified CKD (chronic kidney disease) [...] Plantar fascial fibromatosis documented in this encounter [facility] for referral (narrative)* Diagnostic Procedure Only (Routine) - Pending Review Specialty Diagnoses / Procedures Referred By Contac t Referred To Contact BR IMAGING Diagnoses Encounter for screening mammogram for breast cancer Procedures LEXI SCREENING SCREENING MAMMOGRAPHY BI 2-VIEW BREAST INC CAD Bret Salomon MD [address] [place] [address] [facility] [address] [place] [phone] Referral ID Status Reason Start Date Expiration Date Visits Requested Visits Authorized [id number] Pending Review Auto-Generat ed Referral 09/03/2021 10/03/2022 1 1 [facility] for referral (narrative)* Diagnostic Procedure Only (Urgent) - Closed Specialty Diagnoses / Procedures Referred By Contac t Referred To Contact XR IMAGING Diagnoses Foot pain, right Procedures XR FOOT GENERAL 3V AP/LAT/OBL RIGHT RADEX FOOT COMPLETE MINIMUM 3 VIEWS [facility] [address] [place] [address] [place] [address] Referral ID Status Reason Start Date Expiration Date V isits Requested Visits Authorized [id number] Closed Auto-Generate d Referral 06/22/2023 07/21/2024 1 1 [facility] for referral (narrative)* Diagnostic Procedure Only (Routine) - Closed Specialty Diagnoses / Procedures Referred By Contac t Referred To Contact XR IMAGING Diagnoses Plantar fasciitis Procedures XR FOOT GENERAL 3V AP/LAT/OBL LEFT RADEX FOOT COMPLETE MINIMUM 3 VIEWS [facility] [address] [address] [place] [address] Referral ID Status Reason Start Date Expiration Date V isits Requested Visits Authorized [id number] Closed Auto-Generate d Referral 03/24/2024 04/23/2025 1 1 [facility] for visit Narrative* Diagnostic Procedure Only (Urgent) - Closed Specialty Diagnoses / Procedures Referred By Contac t Referred To Contact XR IMAGING Diagnoses Foot pain, right Procedures XR FOOT GENERAL 3V AP/LAT/OBL RIGHT RADEX FOOT COMPLETE MINIMUM 3 [facility] [address] [place] [address] [place] [address] Referral ID Status Reason Start Date Expiration Date V isits Requested Visits Authorized [id number] Closed Auto-Generate d Referral 06/22/2023 07/21/2024 1 1 [facility] for visit Narrative* Diagnostic Procedure Only (Routine) - Closed Specialty Diagnoses / Procedures Referred By Contac t Referred To Contact XR IMAGING Diagnoses Plantar fasciitis Procedures XR FOOT GENERAL 3V AP/LAT/OBL LEFT RADEX FOOT COMPLETE MINIMUM 3 VIEWS [facility] [address] [address] [place] [address] Referral ID Status Reason Start Date Expiration Date V isits Requested Visits Authorized [id number] Closed Auto-Generate d Referral 03/24/2024 04/23/2025 1 1 [facility] Summary Purpose Family History No Family History Records FoundNo Family History Records FoundNo Family History Records FoundNo Family History Records FoundNo Family History Records Found Advance Directives No Advanced Directives Records FoundDocuments on File Type Date Recorded Patient Network Solutions Architect Expl anation Advance Directive(s) Advance Directive(s) 10/24/2018 11:36 AM Advance Directive(s) 10/15/2018 3:28 PM Advance Directive(s) 08/30/2018 6:43 PM Advance Directive(s) 08/04/2018 1:52 PM Advance Directive(s) 05/24/2018 12:12 PM Advance Directive(s) 04/19/2018 9:49 AM Advance Directive(s) 06/07/2017 4:23 PM Advance Directive(s) 10/14/2016 10:16 AM Advance Directive(s) 10/14/2016 12:51 PM Documents on File Type Date Recorded Patient Network Solutions Architect Expl anation Advance Directive(s) Advance Directive(s) 10/24/2018 11:36 AM Advance Directive(s) 10/15/2018 3:28 PM Advance Directive(s) 08/30/2018 6:43 PM Advance Directive(s) 08/04/2018 1:52 PM Advance Directive(s) 05/24/2018 12:12 PM Advance Directive(s) 04/19/2018 9:49 AM Advance Directive(s) 06/07/2017 4:23 PM Advance Directive(s) 10/14/2016 10:16 AM Advance Directive(s) 10/14/2016 12:51 PM Documents on File Type Date Recorded Patient Network Solutions Architect Expl anation Advance Directive(s) 10/14/2016 12:51 PM Documents on File Type Date Recorded Patient Network Solutions Architect Expl anation Advance Directive(s) 10/14/2016 12:51 PM Reason for Referral Specialty Diagnoses / Procedures Referred By Contac t Referred To Contact CT IMAGING Diagnoses Malignant neoplasm of head of pancreas (HCC) Procedures CT PANCREAS W IVCON CT ABDOMEN W/CONTRAST Peter Sigala MD [address] [place] [address] Ct Imaging [facility] [address] Referral ID Status Reason Start Date Expiration Date V isits Requested Visits Authorized [id number] Closed Auto-Generat ed Referral Patient Cleared - Admin/Chairm an/Director advise to proceed or did not respond 07/17/2022 09/15/2022 1 1 Specialty Diagnoses / Procedures Referred By Contac t Referred To Contact Podiatry Diagnoses Foot pain, right Procedures CONSULT TO PODIATRY OFFICE/OUTPATIENT NEW HIGH MDM 60 MINUTES [facility] [address] [place] [address] Referral ID Status Reason Start Date Expiration Date Visits Requested Visits Authorized [id number] Authorized PCP Requested Referral 06/22/2023 06/21/2024 1 1 Specialty Diagnoses / Procedures Referred By Penny t Referred To Contact XR IMAGING Diagnoses Foot pain, right Procedures XR FOOT GENERAL 3V AP/LAT/OBL RIGHT RADEX FOOT COMPLETE MINIMUM 3 VIEWS [facility] [address] [address] [place] [address] [place] [address] Referral ID Status Reason Start Date Expiration Date V isits Requested Visits Authorized [id number] Closed Auto-Generate d Referral 06/22/2023 07/21/2024 1 1 Additional Source Comments INFORMATION SOURCE (unrecogn ized section and content) DATE CREATED AUTHOR 09/01/2017 [facility] DATE CREATED AUTHOR AUTHOR'S ORGANIZ ATION 06/02/2018 [facility] ([place]) DATE CREATED AUTHOR AUTHOR'S ORGANIZ ATION 06/28/2020 [facility] DATE CREATED AUTHOR AUTHOR'S ORGANIZ ATION 12/17/2024 [facility] DATE CREATED AUTHOR AUTHOR'S ORGANIZ ATION 01/18/2025 [facility] Source Comments (unrecognize d section and content) In the event this informatio n is protected by the Federal Confidentiality of Alcohol and Drug Abuse Patient Records regulations: The Federal rules restrict any use of the information to criminally investigate or prosecute any alcohol or drug abuse patient.[facility] the event this information is protected by the Federal Confidentiality of Alcohol and Drug Abuse Patient Records regulations: The Federal rules restrict any use of the information to criminally investigate or prosecute any alcohol or drug abuse patient.[facility] the event this information is protected by the Federal Confidentiality of Alcohol and Drug Abuse Patient Records regulations: The Federal rules restrict any use of the information to criminally investigate or prosecute any alcohol or drug abuse patient.[facility] the event this information is protected by the Federal Confidentiality of Alcohol and Drug Abuse Patient Records regulations: The Federal rules restrict any use of the information to criminally investigate or prosecute any alcohol or drug abuse patient.[facility] the event this information is protected by the Federal Confidentiality of Alcohol and Drug Abuse Patient Records regulations: The Federal rules restrict any use of the information to criminally investigate or prosecute any alcohol or drug abuse patient.[facility] the event this information is protected by the Federal Confidentiality of Alcohol and Drug Abuse Patient Records regulations: The Federal rules restrict any use of the information to criminally investigate or prosecute any alcohol or drug abuse patient.[facility] the event this information is protected by the Federal Confidentiality of Alcohol and Drug Abuse Patient Records regulations: The Federal rules restrict any use of the information to criminally investigate or prosecute any alcohol or drug abuse patient.[facility] the event this information is protected by the Federal Confidentiality of Alcohol and Drug Abuse Patient Records regulations: The Federal rules restrict any use of the information to criminally investigate or prosecute any alcohol or drug abuse patient.[facility] the event this information is protected by the Federal Confidentiality of Alcohol and Drug Abuse Patient Records regulations: The Federal rules restrict any use of the information to criminally investigate or prosecute any alcohol or drug abuse patient.[facility] the event this information is protected by the Federal Confidentiality of Alcohol and Drug Abuse Patient Records regulations: The Federal rules restrict any use of the information to criminally investigate or prosecute any alcohol or drug abuse patient.[facility] the event this information is protected by the Federal Confidentiality of Alcohol and Drug Abuse Patient Records regulations: The Federal rules restrict any use of the information to criminally investigate or prosecute any alcohol or drug abuse patient.[facility] the event this information is protected by the Federal Confidentiality of Alcohol and Drug Abuse Patient Records regulations: The Federal rules restrict any use of the information to criminally investigate or prosecute any alcohol or drug abuse patient.[facility] the event this information is protected by the Federal Confidentiality of Alcohol and Drug Abuse Patient Records regulations: The Federal rules restrict any use of the information to criminally investigate or prosecute any alcohol or drug abuse patient.[facility] the event this information is protected by the Federal Confidentiality of Alcohol and Drug Abuse Patient Records regulations: The Federal rules restrict any use of the information to criminally investigate or prosecute any alcohol or drug abuse patient.[facility] the event this information is protected by the Federal Confidentiality of Alcohol and Drug Abuse Patient Records regulations: The Federal rules restrict any use of the information to criminally investigate or prosecute any alcohol or drug abuse patient.[facility] HospitalIn the event this information is protected by the Federal Confidentiality of Alcohol and Drug Abuse Patient Records regulations: The Federal rules restrict any use of the information to criminally investigate or prosecute any alcohol or drug abuse patient.[facility] HospitalIn the event this information is protected by the Federal Confidentiality of Alcohol and Drug Abuse Patient Records regulations: The Federal rules restrict any use of the information to criminally investigate or prosecute any alcohol or drug abuse patient.[facility] HospitalIn the event this information is protected by the Federal Confidentiality of Alcohol and Drug Abuse Patient Records regulations: The Federal rules restrict any use of the information to criminally investigate or prosecute any alcohol or drug abuse patient.[facility] HospitalIn the event this information is protected by the Federal Confidentiality of Alcohol and Drug Abuse Patient Records regulations: The Federal rules restrict any use of the information to criminally investigate or prosecute any alcohol or drug abuse patient.[facility] HospitalIn the event this information is protected by the Federal Confidentiality of Alcohol and Drug Abuse Patient Records regulations: The Federal rules restrict any use of the information to criminally investigate or prosecute any alcohol or drug abuse patient.[facility] HospitalIn the event this information is protected by the Federal Confidentiality of Alcohol and Drug Abuse Patient Records regulations: The Federal rules restrict any use of the information to criminally investigate or prosecute any alcohol or drug abuse patient.[facility] HospitalIn the event this information is protected by the Federal Confidentiality of Alcohol and Drug Abuse Patient Records regulations: The Federal rules restrict any use of the information to criminally investigate or prosecute any alcohol or drug abuse patient.[facility] HospitalIn the event this information is protected by the Federal Confidentiality of Alcohol and Drug Abuse Patient Records regulations: The Federal rules restrict any use of the information to criminally investigate or prosecute any alcohol or drug abuse patient.[facility] HospitalIn the event this information is protected by the Federal Confidentiality of Alcohol and Drug Abuse Patient Records regulations: The Federal rules restrict any use of the information to criminally investigate or prosecute any alcohol or drug abuse patient.[facility] HospitalIn the event this information is protected by the Federal Confidentiality of Alcohol and Drug Abuse Patient Records regulations: The Federal rules restrict any use of the information to criminally investigate or prosecute any alcohol or drug abuse patient.[facility] HospitalIn the event this information is protected by the Federal Confidentiality of Alcohol and Drug Abuse Patient Records regulations: The Federal rules restrict any use of the information to criminally investigate or prosecute any alcohol or drug abuse patient.[facility] HospitalIn the event this information is protected by the Federal Confidentiality of Alcohol and Drug Abuse Patient Records regulations: The Federal rules restrict any use of the information to criminally investigate or prosecute any alcohol or drug abuse patient.[facility] HospitalIn the event this information is protected by the Federal Confidentiality of Alcohol and Drug Abuse Patient Records regulations: The Federal rules restrict any use of the information to criminally investigate or prosecute any alcohol or drug abuse patient.[facility] HospitalIn the event this information is protected by the Federal Confidentiality of Alcohol and Drug Abuse Patient Records regulations: The Federal rules restrict any use of the information to criminally investigate or prosecute any alcohol or drug abuse patient.[facility] Reason for Visit (unrecogniz ed section and content) Reason Comments Hyperparathyroidism Specialty Diagnoses / Procedures Referred By Penny t Referred To Contact Endocrinology / ENDOCRINOLOGY SURGERY Diagnoses Encounter for follow-up examination after completed treatment for conditions other than malignant neoplasm follow up Procedures OFFICE/OUTPATIENT ESTABLISHED HIGH MDM 40 MIN EST CECI PATIENT Self Peter Sigala MD [address] [place] [address] Referral ID Status Reason Start Date Expiration Date V isits Requested Visits Authorized [id number] Authorized 12/28/2023 03/07/2024 99 99 Reason Comments Refill Request Reason Onset Date Comments Refill Request 01/30/2022 Refill Request 02/24/2022 Reason Comments Conjunctivitis L eye, sinus pain an d congestion x3 days Reason Comments Radiology CT Specialty Diagnoses / Procedures Referred By Penny t Referred To Contact CT IMAGING Diagnoses Malignant neoplasm of head of pancreas (HCC) Procedures CT PANCREAS W IVCON CT ABDOMEN W/CONTRAST Peter Sigala MD [address] [place] [id number] Imaging [place] [address] Referral ID Status Reason Start Date Expiration Date V isits Requested Visits Authorized [id number] Closed Auto-Generat ed Referral Patient Cleared - [...] NEW HIGH MDM 60 MINUTES Express [facility] [address] [place] [address] Referral ID Status Reason Start Date Expiration Date V isits Requested Visits Authorized [id number] Closed PCP Requested Referral 06/22/2023 06/21/2024 1 [...] EST PODI Zulma Sol [address] [place] [address] Zulma Sol [address] [address] Referral ID Status Reason Start Date Expiration Date V isits Requested Visits Authorized [id number] Closed Patient Cleared - Admin/Chairm an/Director advise to proceed or did not respond 03/23/2024 03/07/2025 1 1 Care Teams (unrecognized sec tion and content) Cotton Tier Relationship Specialty Start Date End Date Bret Salomon MD [address] [place] [id number] PCP - General Internal Medicine 12/23/15 Grayson Solorzano MD [address] [place] [address] Physician Endocrinology 12/26/14 [facility] [address] [facility] [address] 01/23/19 Cotton Tier Relationship Specialty Start Date End Date Bret Salomon MD [address] [place] [address] PCP - General Internal Medicine 12/23/15 Grayson Solorzano MD [address] [place] [address] Physician Endocrinology 12/26/14 [facility] [address] [facility] [address] 01/23/19 Cotton Tier Relationship Specialty Start Date End Date Bret Salomon MD [address] [place] [address] PCP - General Internal Medicine 12/23/15 Grayson Solorzano MD [address] [place] [address] Physician Endocrinology 12/26/14 [facility] [address] [facility] [address] 01/23/19 Cotton Tier Relationship Specialty Start Date End Date rBet Salomon MD [address] [place] [address] PCP - General Internal Medicine 12/23/15 Grayson Solorzano MD [address] [place] [address] Physician Endocrinology 12/26/14 [facility] [address] [facility] [address] 01/23/19 Cotton Tier Relationship Specialty Start Date End Date Bret Salomon MD [address] [place] [address] PCP - General Internal Medicine 12/23/15 Grayson Solorzano MD [address] [place] [address] Physician Endocrinology 12/26/14 [facility] [address] [place] [address] 01/23/19 Cotton Tier Relationship Specialty Start Date End Date Grayson Solorzano MD [address] [place] [address] Physician Endocrinology 12/26/14 [facility] [address] [place] [address] 01/23/19 Cotton Tier Relationship Specialty Start Date End Date Grayson Solorzano MD [address] [place] [address] Physician Endocrinology 12/26/14 [facility] [address] [place] [address] 01/23/19 Cotton Tier Relationship Specialty Start Date End Date Grayson Solorzano MD [address] [address] Physician Endocrinology 12/26/14 [facility] [address] [place] [address] 01/23/19 Cotton Tier Relationship Specialty Start Date End Date Grayson Solorzano MD [address] [address] Physician Endocrinology 12/26/14 [facility] [address] [place] [address] 01/23/19 Cotton Tier Relationship Specialty Start Date End Date Grayson Solorzano MD [address] [place] [address], [place] [address] Physician Endocrinology 12/26/14 [facility] [address] [place] [address] 01/23/19 Cotton Tier Relationship Specialty Start Date End Date Grayson Solorzano MD [address] [place] [address] Physician Endocrinology 12/26/14 [facility] [address] [place] [address] 01/23/19 Cotton Tier Relationship Specialty Start Date End Date Grayson Solorzaon MD [address] [place] [address] Physician Endocrinology 12/26/14 [facility] [address] [place] [address] 01/23/19 Cotton Tier Relationship Specialty Start Date End Date Grayson Solorzano MD [address] [place] [address] Physician Endocrinology 12/26/14 [facility] [address] [facility] [address] 01/23/19 Cotton Tier Relationship Specialty Start Date End Date Grayson Solorzano MD [address] [place] [address] Physician Endocrinology 12/26/14 [facility] [address] [facility] [id number] 01/23/19 Cotton Tier Relationship Specialty Start Date End Date Grayson Solorzano MD [address] [place] [address] Physician Endocrinology 12/26/14 [facility] [address] [facility] [id number] 01/23/19 Cotton Tier Relationship Specialty Start Date End Date Grayson Solorzano MD [address] [place] [address] Physician Endocrinology 12/26/14 [facility] [address] [facility] [id number] 01/23/19 Cotton Tier Relationship Specialty Start Date End Date Bret Salomon MD [address] [place] [address] PCP - General Internal Medicine 12/23/15 10/06/21 Grayson Solorzano MD [address] [place] [address] Physician Endocrinology 12/26/14 [facility] [address] [facility] [id number] 01/23/19 Cotton Tier Relationship Specialty Start Date End Date Grayson Solorzano MD [address] [place] [address] Physician Endocrinology 12/26/14 [facility] [address] [place] [address] 01/23/19 Cotton Tier Relationship Specialty Start Date End Date Grayson Solorzano MD [address] [place] [address] Physician Endocrinology 12/26/14 [facility] [address] [facility] [id number] 01/23/19 Cotton Tier Relationship Specialty Start Date End Date Grayson Solorzano MD [address] [place] [address] Physician Endocrinology 12/26/14 [facility] [address] [place] [address] 01/23/19 Cotton Tier Relationship Specialty Start Date End Date Grayson Solorzano MD [address] [place] [address] Physician Endocrinology 12/26/14 [facility] [address] [place] [address] 01/23/19 Cotton Tier Relationship Specialty Start Date End Date Grayson Solorzano MD [address] [place] [address] Physician Endocrinology 12/26/14 [facility] [address] [place] [address] 01/23/19 FOR RECORDS PERTAINING TO PATIENTS WHO [...] BE BASED ON THE PRIMARY CLINICAL RECORDS. [facility] provides no warranty or guarantee of the accuracy or completeness of information in this document.
[2025-02-13 05:53] LABS: Anion Gap 17 (5-15); BUN 25 mg/dL (4-19); BUN/Creat Ratio 17.2 RATIO (10-20); Calcium,Total 6.9 mg/dL (7.6-11.0); Carbon Dioxide 21.5 mmol/L (21.0-32.0); Chloride 97 mmol/L (98-108); Estimated Creatinine Clearance 59.55 ml/min (50-250); Glucose 99 mg/dL (70-99); Magnesium 1.9 mg/dL (1.5-2.2); Potassium 3.2 mmol/L (3.3-5.1)
[2025-02-13 06:06] LABS: CPK Total, Creatine Kinase 176 U/L (24-195)
[2025-02-13 06:51] VITALS: BP 106/69; PULSE 72; RESP 20; TEMP 36.6; O2SAT 100
== END 2025-02-13 07:00 | disposition home or self-care (01) ==
PROVIDERS: Emergency Provider Emergency Medicine; PCP Internal Medicine; Visit Provider Emergency Medicine
DX: E86.0 Dehydration (principal); N18.32 Chronic kidney disease, stage 3b; R11.0 Nausea; R19.7 Diarrhea, unspecified; I12.9 Hypertensive chronic kidney disease with stage 1 through stage 4 chronic kidney disease, or unspecified chronic kidney disease; F41.9 Anxiety disorder, unspecified; F32.A Depression, unspecified; K21.9 Gastro-esophageal reflux disease without esophagitis; M10.9 Gout, unspecified; E66.9 Obesity, unspecified; E55.9 Vitamin D deficiency, unspecified; E03.9 Hypothyroidism, unspecified; K58.9 Irritable bowel syndrome, unspecified; F90.9 Attention-deficit hyperactivity disorder, unspecified type; F43.10 Post-traumatic stress disorder, unspecified; E78.00 Pure hypercholesterolemia, unspecified; G47.33 Obstructive sleep apnea (adult) (pediatric); Z98.84 Bariatric surgery status; Z90.49 Acquired absence of other specified parts of digestive tract; Z79.890 Hormone replacement therapy; Z79.899 Other long term (current) drug therapy
CPT/HCPCS: 80048; 82550; 83735; 85025; 96361; 96374; 99285; A4216

== ENCOUNTER 2025-02-26 12:13 | Emergency (ER) | payer MEDICAID, MEDICARE, SELFPAY ==
[2025-02-26] VITALS (19 sets, daily range): BP systolic 97–122; BP diastolic 68–90; PULSE 62–74; RESP 12–19; TEMP 36.8; O2SAT 97–100
--- NOTE | 2025-02-26 13:27 | EKG12_ITS ---
Test Reason : CHEST PAIN Blood Pressure : */* mmHG Vent. Rate : 73 BPM Atrial Rate : 73 BPM P-R Int : 202 ms QRS Dur : 98 ms QT Int : 248 ms P-R-T Axes : 35 -29 11 degrees QTcB Int : 273 ms Normal sinus rhythm Minimal voltage criteria for LVH, may be normal variant ( Widen product ) Poor data quality Nonspecific T wave abnormality Abnormal ECG Confirmed by Derrick Mohr (Yogi), supervising film or videotape editor MIKE SINGER ([id number]) on 02/27/2025 10:56:01 AM Also confirmed by Derrick Mohr ([id number]), supervising film or videotape editor MIKE SINGER ([id number]) on 02/28/2025 11:04:00 AM Referred By: Confirmed By: Derrick Mohr
--- NOTE | 2025-02-26 13:27 | RAD_ITS ---
PROCEDURE: CHEST PA AND LATERAL 02/26/2025 REASON FOR EXAM: CHEST PAIN TECHNIQUE: Procedure Code: RADCXR Modality: DX Procedure: CHEST PA AND LATERAL COMPARISON: 05/16/2024 and 12/24/2023 FINDINGS: LUNGS AND PLEURA: The lungs are clear. No pleural effusion or pneumothorax. HEART AND MEDIASTINUM: The heart size and mediastinal contours are normal. BONES: No acute osseous abnormality. Stable left proximal humerus sclerotic lesion with internal lucencies, suggestive of an enchondroma. RAD/Chest PA and Lateral IMPRESSION: NO ACUTE FINDINGS. Reading Location: [id number]
--- NOTE | 2025-02-26 15:42 | ED.VIS.CHEST ---
HPI History of Present Illness Chief Complaint: Chest Pain [facility] Medical History Chronic kidney disease (CKD) stage G3b/A1, moderately decreased glomerular filtration rate (GFR) between 30-44 mL/min/1.73 square meter and albuminuria creatinine ratio less than 30 mg/g Anxiety disorder, unspecified Major depressive disorder, recurrent severe without psychotic features Cough Allergic conjunctivitis Allergic dermatitis of eyelids of both eyes Post-menopausal Wears contact lenses Wears glasses Wears dentures Vertigo History of renal disease High cholesterol Easy bruising History of IBS Gastric reflux Non-smoker Shortness of breath on exertion Leg cramps History of edema Hypertension Gout Exocrine pancreatic insufficiency Chronic diarrhea Stage III chronic kidney disease Obesity Post-surgical hypoparathyroidism Hypothyroidism (acquired) History of blood transfusion Obstructive sleep apnea Multiple endocrine neoplasia (MEN) type I Migraine Multiple endocrine neoplasia type 1 (MEN1) Insomnia Anxiety Edema Allergic rhinitis ADHD Vitamin D deficiency Depression Hypothyroidism Restless leg syndrome Post traumatic stress disorder GERD (gastroesophageal reflux disease) Irritable bowel syndrome Anemia Chronic kidney disease, stage 3 Sleep apnea Osteoarthritis of right knee Difficulty balancing Knee pain Fatigue Anemia Kidney disease Arthritis history of left foot fracture History of kidney stones Ureteral calculus Home Medications ?Medication ?Instructions ?Recorded ?Last Taken ?Type cyanocobalamin (vitamin B-12) 500 1,000 mcg PO DAILY@0800 Supplement 09/16/17 05/15/24 History mcg tablet albuterol sulfate 2.5 mg/3 mL 2.5 mg (3 mL) inhalation Q6H PRN 09/05/23 Unknown Rx (0.083 %) solution for nebulization shortness of breath or wheezing #75 mL nebulizer and compressor #1 ea 09/05/23 Unknown Rx compr.stocking,thigh,reg,x-lrg #12 ea 09/14/23 Unknown Rx levothyroxine 100 mcg tablet 100 mcg PO DAILY thyroid #90 tabs 12/24/23 05/15/24 Rx palopegteriparatide 168 mcg/0.56 12 mcg (0.04 mL) subcut QDAY #1.12 12/04/24 02/25/25 Rx mL subcutaneous pen injector mL (Yorvipath) furosemide 20 mg tablet 20 mg PO DAILY FLUID RETENTION #30 01/23/25 02/26/25 Rx tabs cariprazine 1.5 mg capsule 1.5 mg PO DAILY #90 caps 01/24/25 02/26/25 Rx (Vraylar) potassium chloride 20 mEq 20 meq PO DAILY SUPPLEMENT #90 tabs 01/24/25 02/26/25 Rx tablet,extended release sucralfate 1 gram tablet 1 g PO .AC and at bedtime #120 tabs 01/24/25 02/25/25 Rx trazodone 50 mg tablet 50 mg PO QHS PRN sleep #30 tabs 01/24/25 Unknown Rx vortioxetine 20 mg tablet 20 mg PO DAILY depression #90 tabs 01/24/25 02/26/25 Rx (Trintellix) cholecalciferol (vitamin D3) 50 50 mcg PO DAILY SUPPLEMENT #90 caps 02/11/25 02/26/25 Rx mcg (2,000 unit) capsule atorvastatin 20 mg tablet (Lipitor) 20 mg PO DAILY 02/13/25 02/25/25 History calcium 500 mg tablet 500 mg PO DAILY 02/13/25 02/26/25 History pantoprazole 40 mg tablet,delayed 20 mg PO DAILY HEARTBURN 02/13/25 02/26/25 History release albuterol sulfate 90 mcg/actuation 2 puff inhalation Q4H PRN Wheezing 02/15/25 Unknown Rx aerosol inhaler (Ventolin HFA) #18 grams fluticasone propionate 50 1 spray intranasal BID NASAL 02/15/25 02/26/25 Rx mcg/actuation nasal CONGESTION #16 grams spray,suspension (Allergy Relief (fluticasone)) bupropion HCl 300 mg 24 hr tablet, 300 mg PO DAILY MOOD #90 tabs 02/20/25 Unknown Rx extended release benztropine 0.5 mg tablet 0.5 mg PO BID PRN 02/26/25 Unknown History Allergy/AdvReac Type Severity Reaction Status Date / Time Iodinated Contrast Media Allergy Rash Verified 02/26/25 12:44 (PILAR) propranolol Allergy unknown Verified 02/26/25 12:44 iron AdvReac Other Verified 02/26/25 12:44 morphine AdvReac Rash Verified 02/26/25 12:44 ondansetron (From Zofran) AdvReac Other Verified 02/26/25 12:44 Family History Mother Stomach cancer Anemia Arthritis MEN, type 1 Father Pneumonia Anxiety Arthritis Depression Surgical History History of esophagogastroduodenoscopy (EGD) History of colonoscopy H/O right knee surgery History of hysterectomy History of parathyroidectomy History of cholecystectomy history of right collar bone surgery history of gastric sleeve Social History adopted: No household members: none housing: apartment current occupational status: disabled current occupation: disability history of recent travel: No sexually active: No Smoking Status: Never smoker Electronic Cigarette Use: not used alcohol intake: current alcohol intake frequency: holidays/special occasions only details: once or twice a year substance use type: does not use, former substance user and marijuana diet: low salt well-balanced diet: about half the time caffeine: Yes eating out: 4 or more times/week during the past year weight has: increased > 10 lbs what type of physical activity do you participate in: walking frequency: 1-2 times per week seatbelt use: always do you feel safe at home: Yes EXAM Physical Exam Const Vital Signs: 02/26/25 12:40 02/26/25 16:08 02/26/25 16:08 Temperature 98.3 F Temperature Source Oral Pulse Rate 74 71 Respiratory Rate 16 17 Respiratory Effort Blood Pressure 122/82 H 104/77 Blood Pressure Mean 95 86 Pulse Ox 97 100 100 Oxygen Delivery Method Room Air Room Air Room Air 02/26/25 16:08 02/26/25 16:08 02/26/25 16:15 Temperature Temperature Source Pulse Rate 71 Respiratory Rate 18 Respiratory Effort Normal Blood Pressure 100/75 Blood Pressure Mean 83 Pulse Ox 100 Oxygen Delivery Method 02/26/25 16:30 02/26/25 16:45 02/26/25 17:00 Temperature Temperature Source Pulse Rate 68 66 64 Respiratory Rate 14 13 15 Respiratory Effort Blood Pressure 97/78 97/73 Blood Pressure Mean 86 82 Pulse Ox 98 100 98 Oxygen Delivery Method 02/26/25 17:15 02/26/25 17:30 02/26/25 17:45 Temperature Temperature Source Pulse Rate 67 62 70 Respiratory Rate 12 15 16 Respiratory Effort Blood Pressure 105/73 Blood Pressure Mean 84 Pulse Ox 100 100 100 Oxygen Delivery Method 02/26/25 18:00 02/26/25 18:15 02/26/25 18:30 Temperature Temperature Source Pulse Rate 65 63 67 Respiratory Rate 16 16 13 Respiratory Effort Blood Pressure 111/90 H 107/73 Blood Pressure Mean 97 85 Pulse Ox 100 100 100 Oxygen Delivery Method 02/26/25 18:45 02/26/25 19:00 02/26/25 19:15 Temperature Temperature Source Pulse Rate 66 66 64 Respiratory Rate 13 14 19 H Respiratory Effort Blood Pressure 105/72 Blood Pressure Mean 82 Pulse Ox 100 100 100 Oxygen Delivery Method 02/26/25 19:30 02/26/25 19:45 02/26/25 20:00 Temperature Temperature Source Pulse Rate 64 65 72 Respiratory Rate 17 16 18 Respiratory Effort Blood Pressure 103/68 98/68 Blood Pressure Mean 81 79 Pulse Ox 100 100 100 Oxygen Delivery Method MDM MDM MDM Narrative Medical decision making narrative: HISTORY OF PRESENT ILLNESS: Chief complaint: Chest pain 59-year-old female presents with chest pain intermittently for 4 months. History of CKD, transaminitis, depression, hyperlipidemia, obesity, hypothyroidism. Notes chest pain is sharp. Is not pressure. It is not exertional. Is not associated cough fever chills. Denies bleeding diathesis. No associated shortness of breath or leg swelling. Patient Dors is chronic hypocalcemia hypokalemia for which she is on oral home replacement therapy for Patient denies sudden onset of pain, no tearing sensation, no migratory symptoms, no new numbness, weakness or loss of sensation. Patient denies family history or personal history of Connective tissue disorders (Marfan's Syndrome, Joy Danlos etc) The patient denies recent surgery in the last 4 weeks or immobilization in the last 3 days, denies previous diagnosis of DVT or PE, hemoptysis, unilateral leg swelling or malignancy with treatment the last 6 months or palliative. No estrogen use noted. REVIEW OF SYSTEMS: Pertinent positives: Chest pain Pertinent negatives: As per HPI PHYSICAL EXAM: Nursing triage notes reviewed, Vital signs reviewed Constitutional: please see mdm HENT: MMM Eyes: Pupils equal round and reactive to light, Extraocular muscles intact Neck: No stridor, no JVD, full neck ROM Lungs: Clear to auscultation, No wheezing or rales. No increased work of breathing, no conversational dyspnea, no accessory muscle use, no nasal flaring. No respiratory distress noted Heart: Regular rate and rhythm, No murmurs, No rubs and No gallops, 2+ distal pulses (radial, femoral, posterior tibial) in all extremities Abdomen: Soft, there is no tenderness, rigidity, rebound or guarding, no obvious peritoneal signs, no palpable pulsatile abdominal masses, no auscultated abdominal bruit : No CVAT Extremities: No edema Neuro: No new focal neurological deficits, cranial nerves II through XII intact, 5/5 strength in all present extremities. Intact sensation to light touch in all present extremities, 2+ reflexes bilateral patella tendons. Skin: No rash or lesions noted MEDICAL DECISION MAKING: Chief Complaint: please see HPI External records reviewed: Reviewed prior echocardiogram. Reviewed echocardiogram from October which shows ejection fraction 60% Factors affecting care: as per HPI Social determinants of health: none History obtained from others: none Consults: none MDM Narrative: The patient was initially evaluated approximate 3 hours after initial arrival secondary to poor department conditions including high-volume high acuity. Patient was initially hemodynamically stable, afebrile and nontoxic-appearing. Exam without focal cardiopulmonary maladies. No stigmata of VTE, CHF or dissection I considered the following differential diagnosis: ACS, arrhythmia, anemia, electro disturbance, musculoskeletal chest pain etiology, PE, aortic dissection The patient's clinical exam was not consistent with PE or dissection given low risk Wells score and lack of focal neurologic deficit, lack of ripping or tearing pain, syncope and lack of significant vital sign abnormalities. I obtained a broad lab and imaging work to further determine if the patient was suffering from a life-threatening etiology. ALL IMAGES (IF OBTAINED) HAVE BEEN PERSONALLY REVIEWED AND INTERPRETED BY MYSELF. I have personally reviewed the patient's chest x-ray. Chest x-ray is unremarkable for pulmonary edema, pneumothorax, pneumonia or focal cardiopulmonary abnormality. EKG with normal sinus rhythm at 73, left ax deviation, prolonged WA interval, first gravy block, no sign of high degree block, no obvious STEMI, High-sensitivity troponin is negative, no evidence of myocardial ischemia x3 I have personally reviewed the patient's chest x-ray. Chest x-ray is unremarkable for pulmonary edema, pneumothorax, pneumonia or focal cardiopulmonary abnormality. Upon reassessment patient was chest pain-free. Low suspicion for ACS given patient's history, duration of symptoms negative troponin x 3. Will give outpatient follow-up. Strict return precautions discussed. The patient and/or family, caregivers express understanding. The patient and/or family, caregivers agrees with the plan. Shared decision making: I will have a discussion with the patient and or visitors regarding risk/benefits of further testing or admission. They will be made aware of of the risk/benefits inherent in this decision they will be given the opportunity to voice understanding. Total critical care time today provided was at least 0 minutes. This excludes separately billable procedures. Critical care time (if documented) is secondary to the patient having high probability of clinically significant/life threatening deterioration in the patient's condition which required my urgent intervention. Impression: 1. Chest pain 2. History of obesity 3. Hypokalemia 4. Hypocalcemia Dispo: Discharge home This note was generated with [employer] dictation software. It may contain incorrect words, spelling, and punctuation that were not noted in review of the chart prior to signing. Lab Data Labs: Laboratory Results - last 24 hr 02/26/25 02/26/25 02/26/25 16:05 18:31 20:30 WBC 7.5 RBC 4.99 Hgb 12.3 Hct 37.8 MCV 75.8 L MCH 24.6 L MCHC 32.5 RDW Std Deviation 44.0 H RDW Coeff of Teena 16.3 H Plt Count 418 MPV 9.4 Immature Gran % (Auto) 0.300 Neut % (Auto) 60.8 Lymph % (Auto) 28.3 [place] % (Auto) 6.0 Eos % (Auto) 3.9 Baso % (Auto) 0.7 Absolute Neuts (auto) 4.6 Absolute Lymphs (auto) 2.12 Nucleated RBC % 0 Sodium 141 Potassium 2.8 L Chloride 100 Carbon Dioxide 26.1 Anion Gap 15 BUN 19 Creatinine 1.30 H Est GFR (MDRD) Non-Af 48 L BUN/Creatinine Ratio 14.9 Glucose 105 H Calcium 7.0 L Troponin T High Sens 34 H Troponin T Hi Sens 2 Hr 27 H Troponin T Hi Sens 4Hr 26 H Radiography Diagnostic Testing: Clinical Impression(s) from Imaging Studies Chest X-Ray 02/26/25 13:27 IMPRESSION: NO ACUTE FINDINGS. Reading Location: [facility] Discharge Plan Triage Chief Complaint: Chest Pain ED Provider: Marino Dukes Dx/Rx/DC Orders Clinical Impression: Chest pain Instructions: ED Chest Pain, Uncertain Cause Prescriptions: No Action levothyroxine 100 mcg tablet 100 mcg PO DAILY Qty: 90 3RF (DME) compr.stocking,thigh,reg,x-lrg Misc See Rx Instructions .Route Qty: 12 0RF Rx Instructions: As directed cyanocobalamin (vitamin B-12) 500 MCG tablet 1,000 mcg PO DAILY@0800 calcium 500 mg tablet 500 mg PO DAILY atorvastatin [Lipitor] 20 mg tablet 20 mg PO DAILY pantoprazole 40 mg tablet,delayed release (DR/EC) 20 mg PO DAILY benztropine 0.5 mg tablet 0.5 mg PO BID PRN albuterol sulfate 2.5 mg /3 mL (0.083 %) solution for nebulization 2.5 mg inhalation Q6H PRN (Reason: shortness of breath or wheezing) Qty: 75 0RF Patient Comments: pt states she doesnt use but is supposed to. (DME) nebulizer and compressor Device See Rx Instructions .Route Qty: 1 0RF Rx Instructions: As directed Yorvipath 168 mcg/0.56 mL pen injector 12 mcg subcut QDAY Qty: 1.12 3RF furosemide 20 mg tablet 20 mg PO DAILY Qty: 30 0RF Vraylar 1.5 mg capsule 1.5 mg PO DAILY Qty: 90 1RF Trintellix 20 mg tablet 20 mg PO DAILY Qty: 90 1RF trazodone 50 mg tablet 50 mg PO QHS PRN (Reason: sleep) Qty: 30 1RF potassium chloride 20 mEq tablet extended release 20 meq PO DAILY Qty: 90 0RF sucralfate 1 gram tablet 1 g PO .AC and at bedtime Qty: 120 0RF cholecalciferol (vitamin D3) 50 mcg (2,000 unit) capsule 50 mcg PO DAILY Qty: 90 0RF fluticasone propionate [Allergy Relief (fluticasone)] 50 mcg/actuation spray,suspension 1 spray intranasal BID Qty: 16 0RF Rx Instructions: administer into each nostril albuterol sulfate [Ventolin HFA] 90 mcg/actuation HFA aerosol inhaler 2 puff inhalation Q4H PRN (Reason: Wheezing) Qty: 18 0RF bupropion HCl 300 mg tablet extended release 24 hr 300 mg PO DAILY Qty: 90 1RF Primary Care Provider: Alondra Davies Referrals: Alondra Davies MD [Primary Care Provider, Internal Medicine] Jossue Joseph MD [Med Staff - Active Staff, Cardiology] Activity Restrictions/Additional Instructions: Thank you for trusting us with your care today! Your labs are reassuring. No signs of heart damage Please take Tylenol (2 pills, 650 mg), ibuprofen (2 pills, 400 mg) every 6 hours as needed for pain and fever control. Please return to the emergency department if your symptoms change or worsen. Please follow with your primary care physician and Cardiology for further outpatient evaluation and management. Print Language: Italian Disposition Disposition: Home, Self Care
[2025-02-26 16:11] LABS: Hematocrit 37.8 % (37-47); Hemoglobin 12.3 g/dL (12.0-15.0); Immature Granulocytes Count 0.020 X10^3/uL (0.0-0.0); Mean Corp Hgb Conc 32.5 g/dL (32-36); Mean Corpuscular Volume 75.8 fL (81-99); Mean Platelet Vol. 9.4 fl (6.2-12.0); NRBC Flagged by Analyzer 0 % (0-5); Platelet Count 418 K/mm3 (150-450); RBC Distribution Width CV 16.3 % (11.6-14.6); RBC Distribution Width SD 44.0 fl (35.1-43.9); Red Blood Count 4.99 M/mm3 (4.2-5.4); White Blood Count 7.5 K/mm3 (4.4-11.0)
[2025-02-26 16:58] LABS: Anion Gap 15 (7-18); BUN 19 mg/dL (4-19); BUN/Creat Ratio 14.9 RATIO (10-20); Calcium,Total 7.0 mg/dL (7.6-11.0); Carbon Dioxide 26.1 mmol/L (20.0-29.0); Chloride 100 mmol/L (96-106); Glucose 105 mg/dL (70-99); Potassium 2.8 mmol/L (3.5-5.1); Troponin T High Sensitivity 34 ng/L (<=14)
[2025-02-26 18:57] LABS: Troponin T High Sens 2 HR 27 ng/L (<=14)
[2025-02-26] MEDS: Potassium Chloride Oral Soln 20 MEQ/15 ML UDC 40 MEQ PO (19:17)
[2025-02-26 21:03] LABS: Troponin T High Sens 4 HR 26 ng/L (<=14)
== END 2025-02-26 21:44 | disposition home or self-care (01) ==
PROVIDERS: Emergency Provider Emergency Medicine; PCP Internal Medicine; Visit Provider Emergency Medicine
DX: R07.9 Chest pain, unspecified (principal); N18.32 Chronic kidney disease, stage 3b; E78.00 Pure hypercholesterolemia, unspecified; E66.9 Obesity, unspecified; E83.51 Hypocalcemia; I12.9 Hypertensive chronic kidney disease with stage 1 through stage 4 chronic kidney disease, or unspecified chronic kidney disease; E87.6 Hypokalemia; G47.33 Obstructive sleep apnea (adult) (pediatric); Z79.51 Long term (current) use of inhaled steroids; Z79.899 Other long term (current) drug therapy
CPT/HCPCS: 71046; 80048; 84484; 85025; 93005; 99285; A4216; J0612